=== PATIENT | male | born 1940 | race Caucasian/White ===

== ENCOUNTER 2019-10-25 00:22 | Outpatient (CLI) | payer MEDICARE, SELFPAY ==
[2019-10-25 18:39] LABS: SARS-CoV-2 RNA PCR Negative
== END 2019-10-25 00:23 | disposition home or self-care (01) ==
LOC: ANHCOVIDDT 00:22
PROVIDERS: PCP Internal Medicine; Visit Provider Urology
DX: Z01.812 Encounter for preprocedural laboratory examination (principal); Z20.828 Contact with and (suspected) exposure to other viral communicable diseases
CPT/HCPCS: 36415; 80048; 85610; 85730; 87635; C9803; U0003

== ENCOUNTER 2019-10-25 08:01 | Outpatient (CLI) | payer MEDICARE, SELFPAY ==
[2019-10-25 08:28] LABS: Blood Urea Nitrogen 45 mg/dL (9-20); Calcium 9.3 mg/dL (8.4-10.2); Carbon Dioxide 24 mmol/L (22-30); Chloride 106 mmol/L (98-107); Estimated Glomerular Filt Rate 28; Glucose 107 mg/dL (75-110); Potassium 4.5 mmol/L (3.4-5.0); Sodium 139 mmol/L (137-145)
[2019-10-25 09:28] LABS: Prothrombin Time 13.1 Seconds (11.1-14.7)
[2019-10-25 09:29] LABS: Partial Thromboplastin Time 41.6 SECONDS (22.3-36.8)
== END 2019-10-25 08:02 | disposition home or self-care (01) ==
LOC: ANHSURGERY 08:03
PROVIDERS: Anesthesiology; PCP Internal Medicine; Visit Provider Urology
DX: Z79.899 Other long term (current) drug therapy (principal); Z79.01 Long term (current) use of anticoagulants
CPT/HCPCS: 36415; 80048; 85610; 85730

== ENCOUNTER 2019-10-27 01:14 | Day surgery (SDC) | payer MEDICARE, SELFPAY ==
[2019-10-21 09:50] VITALS: BMI 33.7
--- NOTE | 2019-10-25 07:35 | PM.HPGS ---
History of Present Illness History of Present Illness Chief complaint: BPH Narrative: Ian Jones is a 79 year old male with longstanding troublesome lower urinary tract symptoms becoming more refractory to medical management. Recent urodynamics demonstrate bladder outlet obstruction without overactivity. Cystoscopy shows lateral lobe hyperplasia without significant median lobe enlargement. Prostatic urethra was estimated at 3.0 cm. After careful discussion of therapeutic options including TURP, he has elected for a Urolift. We've discussed alternative treatment options for bladder outlet obstruction, including TURP, Rezum, Green light laser and Urolift and he's elected for the later. He's aware of risks including, but not limited to, failure to correct his symptoms, hematuria, incontinence and retrograde ejaculation. Review of Systems Cardiovascular: Cardiovascular: Denies chest pain, Denies lightheadedness, Denies palpitations and Denies dyspnea Respiratory: Respiratory: Denies dyspnea Gastrointestinal: Gastrointestinal: Denies diarrhea, Denies nausea and Denies vomiting Genitourinary: Genitourinary: Denies hematuria and Denies dysuria Endocrine: Endocrine: Denies palpitations Meds Home Medications and Allergies Home Medications Medication Instructions Recorded Confirmed Type aspirin [Aspirin Low Dose] 81 mg PO DAILY 10/21/19 10/21/19 History atenolol 50 mg PO DAILY 10/21/19 10/21/19 History atorvastatin 20 mg PO HS 10/21/19 10/21/19 History clorazepate dipotassium 15 mg DAILY 10/21/19 10/21/19 History fenofibrate 40 mg PO DAILY 10/21/19 10/21/19 History furosemide 40 mg PO DAILY 10/21/19 10/21/19 History levothyroxine 25 mcg PO DAILY 10/21/19 10/21/19 History lisinopril 5 mg PO DAILY 10/21/19 10/21/19 History montelukast 10 mg PO DAILY 10/21/19 10/21/19 History multivitamin 1 tablet PO DAILY 10/21/19 10/21/19 History sildenafil (pulm.hypertension) 40 mg PO PRN PRN 10/21/19 10/21/19 History tamsulosin 0.4 mg PO HS 10/21/19 10/21/19 History warfarin 5 mg PO DAILY 10/21/19 10/21/19 History Allergies Allergy/AdvReac Type Severity Reaction Status Date / Time morphine Allergy Mild Nausea and Unverified 10/21/19 09:54 Vomiting eszopiclone Allergy Unknown Nausea and Unverified 10/21/19 09:54 Vomiting hydrocodone Allergy Unknown Nausea and Unverified 10/21/19 09:54 Vomiting Exam Const: General: no acute distress Resp: Effort & Inspection: normal respiratory effort GI: Inspection: non-distended GI Palp: No abdominal tenderness and No Guarding due to palpation present (GI) Auscultation: normal bowel sounds Assessment and Plan Assessment and plan (1) BPH loc w urin obs/LUTS: Code(s): N40.1 - Benign prostatic hyperplasia with lower urinary tract symptoms Status: Acute Assessment and Plan: Urolift
--- NOTE | 2019-10-27 07:12 | WPDHPUPDATE1 ---
History and Physical Update Update Date/Time: 10/27/19 07:12 History and Physical has been reviewed, including an updated exam of the patient. There are NO changes in the patient's condition. Risks, benefits, and alternatives have been discussed and questions answered. Patient agrees to proceed with procedure.
--- NOTE | 2019-10-27 08:31 | WPDANESEPPF ---
Anes - Initial Pre Proc Eval Procedure: Operation Date: 10/27/19 12:30 Proposed Procedures p Urolift - Luan Chilel MD Date/Time: 10/27/19 08:31 Surgeon: Luan Chilel MD Pre Op Diagnosis: BPH Patient Data Age: 79 Gender: M Height: 1.7 m Weight: 97.72 kg Allergies Allergy/AdvReac Type Severity Reaction Status Date / Time morphine Allergy Mild Nausea and Unverified 10/21/19 09:54 Vomiting eszopiclone Allergy Unknown Nausea and Unverified 10/21/19 09:54 Vomiting hydrocodone Allergy Unknown Nausea and Unverified 10/21/19 09:54 Vomiting Home Medications Medication Instructions Recorded Confirmed Type aspirin [Aspirin Low Dose] 81 mg PO DAILY 10/21/19 10/21/19 History atenolol 50 mg PO DAILY 10/21/19 10/21/19 History atorvastatin 20 mg PO HS 10/21/19 10/21/19 History clorazepate dipotassium 15 mg DAILY 10/21/19 10/21/19 History fenofibrate 40 mg PO DAILY 10/21/19 10/21/19 History furosemide 40 mg PO DAILY 10/21/19 10/21/19 History levothyroxine 25 mcg PO DAILY 10/21/19 10/21/19 History lisinopril 5 mg PO DAILY 10/21/19 10/21/19 History montelukast 10 mg PO DAILY 10/21/19 10/21/19 History multivitamin 1 tablet PO DAILY 10/21/19 10/21/19 History sildenafil (pulm.hypertension) 40 mg PO PRN PRN 10/21/19 10/21/19 History tamsulosin 0.4 mg PO HS 10/21/19 10/21/19 History warfarin 5 mg PO DAILY 10/21/19 10/21/19 History Patient hx anesthesia problems: post op nausea/vomiting Family hx anesthesia problems: none PMFSH Past Medical History Medical History (Updated 10/27/19 @ 08:35 by Alejandro Shrestha MD) 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 Arthritis BPH (benign prostatic hyperplasia) CAD (coronary artery disease) HTN (hypertension) Hx of myocardial infarction 1996 Hypercholesterolemia Hypothyroidism Obesity Presence of combination internal cardiac defibrillator (ICD) and pacemaker Surgical History Surgical History (Updated 10/27/19 @ 08:34 by Alejandro Shrestha MD) Hx of coronary artery bypass graft Anes - Eval Final PreProcedure Day of Procedure 10/27/19 08:31 Patient weight: obese Heart: regular rate and rhythm Lungs: clear to auscultation and normal air movement Airway: Mallampati scale class II Neurological: alert and oriented Last oral intake: >/= 8 hours ASA classification: III Emergent: no Anesthetic plan: proceed Anesthesia type and monitoring: general GIVS and LMA Informed Consent: The patient's anesthetic plan and its attendant risks and benefits were discussed with the patient/family/POA. Questions were solicited and answers provided to the satisfaction of the patient/family/POA.
[2019-10-27] MEDS: LACTATED RINGERS 1,000 ML 30 ML IV CONT (11:15)
[2019-10-27 11:37] VITALS: BP 132/79; PULSE 70; RESP 18; TEMP 36.2; O2SAT 98
[2019-10-27] MEDS: MIDAZOLAM HCL 2 MG/2 ML VIAL 1 MG IV PUSH (11:50)
[2019-10-27] MEDS: ceFAZolin 2 GM/D5W 50 ML 2 GM/50 ML BAG IVPB (13:08)
[2019-10-27 13:11] LABS: Partial Thromboplastin Time 42.3 SECONDS (22.3-36.8)
[2019-10-27] MEDS: LIDOCAINE HCL 2% GEL UROJET 10 ML PKG MUCOUS MEM (13:24)
[2019-10-27 13:43] VITALS: BP 129/74; PULSE 74; RESP 17; O2SAT 98
[2019-10-27 14:05] VITALS: BP 125/77; PULSE 69; RESP 18
--- NOTE | 2019-10-27 14:14 | P.OP_ITS ---
Procedure Note - Detailed Date of procedure: 10/27/19 Pre-op diagnosis: BPH Post-op diagnosis: same Procedure performed: UroLift Description of procedure: The patient was prepped and draped in a routine fashion after the uneventful induction of a general LMA anesthetic. A 20F cystoscope was inserted into the bladder. The cystoscopy bridge was replaced with a UroLift delivery device. The first treatment site was the patient's right side approximately 1.5cm distal to the bladder neck. The distal tip of the delivery device was then angled laterally approximately 20 degrees at this position to compress the lateral lobe. The trigger was pulled, thereby deploying a needle containing the implant through the prostate. The needle was then retracted, allowing one end of the implant to be delivered to the capsular surface of the prostate. The implant was then tensioned to assure capsular seating and removal of slack monofilament. The device was then angled back toward midline and slowly advanced proximally (typically 3 to 4 mm) until cystoscopic verification of the monofilament being centered in the delivery bay. The urethral end piece was then affixed to the monofilament thereby tailoring the size of the implant. Excess filament was then severed. The delivery device was then re-advanced into the bladder. The delivery device was then replaced with cystoscope and bridge and the implant location and opening effect was conf irmed cystoscopically. The same procedure was then repeated on the left side, and two additional implants were delivered just proximal to the verumontanum, again one on right and one on left side of the prostate, following the same technique. Cystoscopy then revealed a persistent area of obstruction, and two more implants were delivered in the mid-prostate. Therefore, a total of 46 implants were delivered. A final cystoscopy was conducted first to inspect the location and state of each implant and second, to confirm the presence of a continuous anterior channel was present through the prostatic urethra with irrigation flow turned off. [The bladder was then filled with 150 cc irrigation fluid to assist the patient in void trial after the procedure, and all instruments were removed. At this point the cystoscope was removed and the patient was taken to the PACU in good condition. Implants: UroLift x6 Anesthesia: MAC Surgeon: Luan Chilel MD Estimated blood loss (mL): 5 Drains: No Packing: No Pathology: none sent Complications: No immediate complications Condition: stable Disposition: PACU
[2019-10-27] MEDS: IBUPROFEN 400 MG TABLET 800 MG PO (14:24)
[2019-10-27 14:35] VITALS: BP 140/65; PULSE 76; RESP 17
== END 2019-10-27 14:50 | disposition home or self-care (01) ==
PROVIDERS: PCP Internal Medicine; Visit Provider Urology
PROC: 0T7D8DZ Dilation of Urethra with Intraluminal Device, Via Natural or Artificial Opening Endoscopic (ICD-10-PCS; CPT 52441; principal; 2019-10-27 12:30)
DX: N40.1 Benign prostatic hyperplasia with lower urinary tract symptoms (principal); N13.8 Other obstructive and reflux uropathy; I10 Essential (primary) hypertension; I25.10 Atherosclerotic heart disease of native coronary artery without angina pectoris; I25.2 Old myocardial infarction; E78.00 Pure hypercholesterolemia, unspecified; E03.9 Hypothyroidism, unspecified; Z95.1 Presence of aortocoronary bypass graft; Z95.810 Presence of automatic (implantable) cardiac defibrillator; Z79.82 Long term (current) use of aspirin; Z79.01 Long term (current) use of anticoagulants; E66.9 Obesity, unspecified; Z68.32 Body mass index [BMI] 32.0-32.9, adult
CPT/HCPCS: C9740; 36415; 85730; A9270; J0690; J2250; J2704; J7120; L8699

== ENCOUNTER 2023-12-02 10:57 | Outpatient (CLI) | payer MEDICARE, SELFPAY ==
[2023-12-02 11:49] LABS: Basophils Percent Auto 0.5 % (0.2-1.2); Eosinophils Absolute Auto 0.1 K/mm3 (0-0.3); Eosinophils Percent Auto 1.9 % (0-4.4); Hematocrit 46.1 % (42.0-52.0); Immature Granulocyte Absolute 0.01 K/mm3 (0.00-0.031); Immature Granulocyte Percent A 0.2 % (0-0.5); Immature Platelet Fraction Pct 6.9 % (0.9-11.2); Lymphocytes Percent Auto 21.9 % (18.3-44.2); Mean Corpuscular HGB Conc 32.5 g/dl (32-36); Mean Corpuscular Hemoglobin 31.6 pg (26-34); Mean Corpuscular Volume 97.1 fl (80-100); Mean Platelet Volume 11.1 fl (7.4-10.4); Monocytes Absolute Auto 0.5 K/mm3 (0.1-0.6); Monocytes Percent Auto 11.7 % (2.6-8.5); Neutrophils Absolute Auto 2.6 K/mm3 (1.3-6.7); Neutrophils Percent Auto 63.8 % (45.5-73.1); Platelet Count Result 121 k/mm3 (150-375); Red Blood Count 4.75 M/mm3 (4.6-6.20); Red Cell Distribution Width 14.8 % (11.5-14.5); White Blood Count 4.1 K/mm3 (4.5-10.0)
[2023-12-02 12:29] LABS: Total Triiodothyronine (T3) 0.92 NG/ML (0.97-1.69)
[2023-12-02 13:30] LABS: Iron 179 ug/dL (49-181)
[2023-12-02 13:41] LABS: Percent Iron Saturation 41 % (20-50)
[2023-12-02 13:48] LABS: Free T4 Free Thyroxine 1.58 ng/mL (0.78-2.19)
== END 2023-12-02 10:58 | disposition home or self-care (01) ==
PROVIDERS: PCP Family Medicine; Referring Provider Family Medicine; Visit Provider Internal Medicine Cardiovascular Disease
DX: I10 Essential (primary) hypertension (principal); I71.9 Aortic aneurysm of unspecified site, without rupture; I42.9 Cardiomyopathy, unspecified; I50.9 Heart failure, unspecified; I48.91 Unspecified atrial fibrillation; N20.0 Calculus of kidney; Z79.01 Long term (current) use of anticoagulants; I73.9 Peripheral vascular disease, unspecified
CPT/HCPCS: 36415; 82728; 83540; 83550; 83735; 84439; 84443; 84480; 85025; 85055

== ENCOUNTER 2024-02-10 11:41 | Outpatient (CLI) | payer MEDICARE, SELFPAY ==
[2024-02-10 12:10] LABS: Basophils Percent Auto 0.8 % (0.2-1.2); Eosinophils Absolute Auto 0.1 K/mm3 (0-0.3); Hematocrit 44.9 % (42.0-52.0); Hemoglobin 14.5 g/dL (14.0-18.0); Immature Granulocyte Absolute 0.01 K/mm3 (0.00-0.031); Immature Granulocyte Percent A 0.3 % (0-0.5); Lymphocytes Absolute Auto 0.95 K/mm3 (0.9-3.2); Lymphocytes Percent Auto 24.2 % (18.3-44.2); Mean Corpuscular HGB Conc 32.3 g/dl (32-36); Mean Corpuscular Hemoglobin 31.2 pg (26-34); Mean Corpuscular Volume 96.6 fl (80-100); Mean Platelet Volume 10.4 fl (7.4-10.4); Monocytes Absolute Auto 0.4 K/mm3 (0.1-0.6); Monocytes Percent Auto 9.9 % (2.6-8.5); Neutrophils Absolute Auto 2.5 K/mm3 (1.3-6.7); Neutrophils Percent Auto 62.8 % (45.5-73.1); Platelet Count Result 133 k/mm3 (150-375); Red Blood Count 4.65 M/mm3 (4.6-6.20); Red Cell Distribution Width 15.5 % (11.5-14.5); White Blood Count 3.9 K/mm3 (4.5-10.0)
[2024-02-10 12:27] LABS: Iron 211 ug/dL (49-181)
[2024-02-10 12:40] LABS: Percent Iron Saturation 50 % (20-50)
[2024-02-10 12:45] LABS: Free T4 Free Thyroxine 1.57 ng/mL (0.78-2.19)
== END 2024-02-10 11:42 | disposition home or self-care (01) ==
LOC: ANHLAB 11:49
PROVIDERS: PCP Family Medicine; Visit Provider Student in an Organized Health Care Education/Training Program
DX: R79.89 Other specified abnormal findings of blood chemistry (principal); I10 Essential (primary) hypertension; E03.9 Hypothyroidism, unspecified
CPT/HCPCS: 36415; 82728; 83540; 83550; 84439; 84443; 85025

== ENCOUNTER 2024-11-04 07:34 | Emergency (ER) | payer MEDICARE, SELFPAY ==
[2024-11-04] VITALS (24 sets, daily range): BP systolic 87–126; BP diastolic 57–71; PULSE 80–84; RESP 14–28; TEMP 36.4; O2SAT 94–100
--- NOTE | ~2024-11-04 | XR_ITS ---
XR chest 1V portable 11/04/2024 08:16 Indication: Shortness of breath Procedure: AP portable chest Comparison: No prior studies for comparison. Findings: Status post median sternotomy for CABG. Cardiomegaly with pulmonary edema. Small pleural ef fusions, right greater than left. No acute osseous abnormality. Pacemaker leads are in expected posit ion. Impression: 1: Cardiomegaly with pulmonary edema. Reviewed, dictated and finalized at location [] Impression: 1: Cardiomegaly with pulmonary edema.
--- NOTE | 2024-11-04 07:48 | ECG_ITS ---
Test Date: 2024-11-04 07:46:14 Measurements Intervals [place] Rate: 84 P: 0 SC: 0 QRS: 216 QRSD: 164 T: -11 QT: 394 QTc: 467 Interpretive Statements ELECTRONIC VENTRICULAR PACEMAKER VENTRICULAR BIGEMINY BASELINE ARTIFACT- I, III NO FURTHER INTERPRETATION IS POSSIBLE ABNORMAL ECG No previous ECG available for comparison Electronically Signed On 11-04-2024 08:11:17 CDT by Denilson Marr D.O.
--- NOTE | 2024-11-04 07:49 | ED_ITS ---
HPI - General Adult General Chief complaint: Shortness of Breath/Dyspnea Stated complaint: SOB, low O2 Time Seen by Provider: 11/04/24 07:53 History of Present Illness HPI narrative: [age] old male with history of ND and CHF presented emergency department for evaluation for worsening shortness of breath. Patient was recently discharged from [facility] and had been at his local residential when he had worsening shortness of breath. EMS was called and patient was found to be 60% room air and only improved to mid 80s on CPAP. Patient was requesting to go back to [facility] but EMS did not feel comfortable with this transport so patient was brought to [place]. Upon arrival to the emergency department patient states he is DNI DNR and does not want to be intubated. Patient was 74% room air but did improved to high 90s on BiPAP 05/11 with a FiO2 of 60%. Patient denies any chest pain days states he feels improved breathing. Related Data Home Medications ?Medication ?Instructions ?Recorded ?Confirmed ?Last Taken ?Type aspirin 81 mg tablet,delayed 81 mg PO DAILY 10/21/19 08/29/24 Unknown History release (Asaf Low Dose Aspirin) warfarin 5 mg tablet 5 mg PO DAILY 10/21/19 08/29/24 Unknown History calcitriol 0.25 mcg capsule 0.25 mcg PO DAILY 12/08/23 08/29/24 Unknown History dofetilide 125 mcg capsule 125 mcg PO DAILY 05/02/24 08/29/24 Unknown History (Tikosyn) digoxin 250 mcg (0.25 mg) tablet 250 mcg PO .MWF 10/10/24 Unknown History Allergies Allergy/AdvReac Type Severity Reaction Status Date / Time morphine Allergy Mild Nausea and Verified 11/04/24 08:06 Vomiting eszopiclone Allergy Unknown Nausea and Verified 11/04/24 08:06 Vomiting hydrocodone Allergy Unknown Nausea and Verified 11/04/24 08:06 Vomiting tramadol Allergy Unknown Verified 11/04/24 08:06 trazodone Allergy Unknown Verified 11/04/24 08:06 Review of Systems 2 Review of Systems: All systems reviewed & are unremarkable except as noted in HPI and below PMFSH Past Medical History Medical History Chronic anticoagulation PAD (peripheral artery disease) Obesity CAD (coronary artery disease) Presence of combination internal cardiac defibrillator (ICD) and pacemaker Hypothyroidism Arthritis BPH (benign prostatic hyperplasia) 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 Hx of myocardial infarction 1996 HTN (hypertension) Hypercholesterolemia Surgical History Surgical History S/P insertion of iliac artery stent Hx of coronary artery bypass graft Social History Social History Social History: Smoking status: Never smoker Second hand tobacco smoke exposure: No Alcohol intake: never Substance use: never Substance use type: does not use Do You Feel Safe in your Home?: Yes Lack of Transportation: No Lack of Food: Never True Current Housing: I Have Housing Concerned About Future Housing: No Difficulty Paying Gas/Electric Bills: No Difficulty Paying for Meds: No Currently Unemployed: YES Education: Don't Know Difficulty w/ Childcare or Family Care: No Living arrangements: with family Occupation/Education: retired Gender identity (if verbalized by the patient): Male Sexual Orientation (if Verbalized by the Patient): Straight or Heterosexual Exam 2 Narrative: APPEARANCE: Well appearing, no pain, no distress, well-nourished. HEAD: normocephalic, atraumatic. EYES: PERRLA/EOMI, conjunctivae clear. NOSE: Normal no drainage EARS:TMS clear with good light reflex. THROAT: Pharynx clear, no exudate. NECK: Supple. No adenopathy, no masses. RESPIRATORY: Airway patent, respirations nonlabored. Clear to auscultation bilaterally, no rales, rhonchi, wheezing. CARDIOVASCULAR: Regular rate and rhythm without murmurs rubs or gallops. ABDOMINAL: Soft, nontender, nondistended, normal bowel sounds MUSCULOSKELETAL: Moves all extremities. Strength/ROM intact, No edema, No calf tenderness. NEURO: Alert. Cranial nerves II through XII intact. Grossly intact SKIN: Warm, dry. Normal Color Course Vital Signs Vital signs: Vital Signs Temperature 97.5 F L 11/04/24 07:41 Pulse Rate 84 11/04/24 07:41 Respiratory Rate 28 H 11/04/24 07:41 Blood Pressure 117/71 11/04/24 07:41 Pulse Oximetry 94 11/04/24 07:41 Oxygen Delivery BiPAP 11/04/24 07:41 Fraction of Inspired Oxygen 60 11/04/24 07:41 Temperature 97.5 F L 11/04/24 07:41 Pulse Rate 80 11/04/24 14:01 Respiratory Rate 18 11/04/24 14:01 Blood Pressure 91/59 L 11/04/24 14:00 Pulse Oximetry 96 11/04/24 14:40 Oxygen Delivery Nasal Cannula 11/04/24 14:40 Oxygen Flow Rate 2 11/04/24 14:40 Fraction of Inspired Oxygen 60 11/04/24 07:41 Medical Decision Making MDM Narrative Medical decision making narrative: 84-year-old male present to the emergency department for evaluation for hypoxia. Patient's EKG in the field was auto read as concern for STEMI. Patient does have a pacemaker. Upon arrival emergency department patient denies any chest pain. Patient does have a pacemaker. Repeat EKG is not concerning for acute STEMI. Patient did confirm he is DNI DNR and does not want to be intubated if his respiratory status worsens. Patient is alert and appropriate and is requesting to be transferred back to [facility]. I discussed the case with the ICU doctor at [facility] it is and they agreed the plan to treat with Lasix, continue BiPAP and patient was accepted pending bed availability. Patient's stated that she discussed the case with the patient's cream hauler at [facility] and they recommended palliative care/hospice for the patient. Patient family no longer wishing to be transported to [facility] and they are per so a hospice placement. Hospice was consulted and patient was admitted to the hospital for comfort care and prior to going to the floor he was removed from BiPAP. Differential Diagnosis Differential Diagnosis: CHF, STEMI, NSTEMI, pneumonia, hypercapnia, respiratory failure, Vital Signs Vital Signs: Vital Signs Temperature 97.5 F L 11/04/24 07:41 Pulse Rate 84 11/04/24 07:41 Respiratory Rate 28 H 11/04/24 07:41 Blood Pressure 117/71 11/04/24 07:41 Pulse Oximetry 94 11/04/24 07:41 Oxygen Delivery BiPAP 11/04/24 07:41 Fraction of Inspired Oxygen 60 11/04/24 07:41 Temperature 97.5 F L 11/04/24 07:41 Pulse Rate 80 11/04/24 14:01 Respiratory Rate 18 11/04/24 14:01 Blood Pressure 91/59 L 11/04/24 14:00 Pulse Oximetry 96 11/04/24 14:40 Oxygen Delivery Nasal Cannula 11/04/24 14:40 Oxygen Flow Rate 2 11/04/24 14:40 Fraction of Inspired Oxygen 60 11/04/24 07:41 Lab Data Lab results reviewed: Yes I reviewed the patient's lab results. 11/04/24 07:58 11/04/24 07:58 Labs: Lab Results 11/04/24 11/04/24 11/04/24 Range/Units 07:48 07:58 09:30 WBC 6.3 (4.5-10.0) K/mm3 RBC 4.40 L (4.6-6.20) M/mm3 Hgb 13.6 L (14.0-18.0) g/dL Hct 42.5 (42.0-52.0) % MCV 96.6 (80-100) fl MCH 30.9 (26-34) pg MCHC 32.0 (32-36) g/dl RDW 16.1 H (11.5-14.5) % Plt Count 221 D (150-375) k/mm3 MPV 11.6 H (7.4-10.4) fl Immature Gran % (Auto) 1.0 H (0-0.5) % Neut % (Auto) 84.5 H (45.5-73.1) % Lymph % (Auto) 8.2 L (18.3-44.2) % [place] % (Auto) 5.2 (2.6-8.5) % Eos % (Auto) 0.6 (0-4.4) % Baso % (Auto) 0.5 (0.2-1.2) % Lymph # (Auto) 0.52 L (0.9-3.2) K/mm3 [place] # (Auto) 0.3 (0.1-0.6) K/mm3 Eos # (Auto) 0.0 (0-0.3) K/mm3 Baso # (Auto) 0.0 (0.0-0.1) K/mm3 Abs Immat Gran (auto) 0.06 H (0.00-0.031) K/mm3 Absolute Neuts (auto) 5.3 (1.3-6.7) K/mm3 Absolute Nucleated RBC 0.000 (0.0-0.012) K/mm3 Nucleated RBC % 0.0 (0.0-0.2) % PT 27.4 H (11.1-14.7) Seconds INR 2.7 APTT 43.4 H (22.3-36.8) Seconds Methemoglobin 0.1 0.3 (0-1.5) %THb Expiratory Pressure 8 8 CMH2O Inspiratory Pressure 16 16 CMH2O Sodium 130 L (137-145) mmol/L Potassium 4.4 (3.4-5.0) mmol/L Chloride 91 L (98-107) mmol/L Carbon Dioxide 31 H (22-30) mmol/L Anion Gap 8 (4-12) mmol/L BUN 30 H D (9-20) mg/dL Creatinine 1.30 (0.7-1.3) mg/dL Estim Creat Clear Calc 39 ml/min Estimated GFR 53 L (59 - ) Glucose 97 (65-110) mg/dL Calcium 8.8 (8.4-10.2) mg/dL Total Bilirubin 1.2 (0.2-1.3) mg/dL AST 51 (17-59) U/L ALT 24 (6-50) U/L Alkaline Phosphatase 75 (38-126) U/L Troponin I 0.079 H* (0.000-0.034) ng/mL NT-Pro-B Natriuret Pep 62026 H (19.9-100) pg/mL Total Protein 6.5 (6.3-8.2) g/dL Albumin 3.3 L (3.5-5.1) g/dL Urine Color (Yellow) Urine Appearance (Clear) Urine pH (5.0-9.0) Ur Specific [place] (1.001-1.035) Urine Protein (Negative) mg/dL Urine Glucose (UA) (Negative) mg/dL Urine Ketones (Negative) mg/dL Ur Blood (Man) (Negative) Urine Nitrate (Negative) Urine Bilirubin (Negative) Urine Urobilinogen (<2.0) mg/dL Add Ur Microanalysis Leukocyte Esterase Rfl (Negative) SHANTELL/UL Urine RBC (0-2) /hpf Urine WBC (0-3) /hpf Ur Squamous Epith Cells (Few) /hpf Urine Bacteria /hpf Urine Casts 11/04/24 Range/Units 10:20 WBC (4.5-10.0) K/mm3 RBC (4.6-6.20) M/mm3 Hgb (14.0-18.0) g/dL Hct (42.0-52.0) % MCV (80-100) fl MCH (26-34) pg MCHC (32-36) g/dl RDW (11.5-14.5) % Plt Count (150-375) k/mm3 MPV (7.4-10.4) fl Immature Gran % (Auto) (0-0.5) % Neut % (Auto) (45.5-73.1) % Lymph % (Auto) (18.3-44.2) % [place] % (Auto) (2.6-8.5) % Eos % (Auto) (0-4.4) % Baso % (Auto) (0.2-1.2) % Lymph # (Auto) (0.9-3.2) K/mm3 [place] # (Auto) (0.1-0.6) K/mm3 Eos # (Auto) (0-0.3) K/mm3 Baso # (Auto) (0.0-0.1) K/mm3 Abs Immat Gran (auto) (0.00-0.031) K/mm3 Absolute Neuts (auto) (1.3-6.7) K/mm3 Absolute Nucleated RBC (0.0-0.012) K/mm3 Nucleated RBC % (0.0-0.2) % PT (11.1-14.7) Seconds INR APTT (22.3-36.8) Seconds Methemoglobin (0-1.5) %THb Expiratory Pressure CMH2O Inspiratory Pressure CMH2O Sodium (137-145) mmol/L Potassium (3.4-5.0) mmol/L Chloride (98-107) mmol/L Carbon Dioxide (22-30) mmol/L Anion Gap (4-12) mmol/L BUN (9-20) mg/dL Creatinine (0.7-1.3) mg/dL Estim Creat Clear Calc ml/min Estimated GFR (59 - ) Glucose (65-110) mg/dL Calcium (8.4-10.2) mg/dL Total Bilirubin (0.2-1.3) mg/dL AST (17-59) U/L ALT (6-50) U/L Alkaline Phosphatase (38-126) U/L Troponin I (0.000-0.034) ng/mL NT-Pro-B Natriuret Pep (19.9-100) pg/mL Total Protein (6.3-8.2) g/dL Albumin (3.5-5.1) g/dL Urine Color Brown H (Yellow) Urine Appearance Cloudy H (Clear) Urine pH 5.5 (5.0-9.0) Ur Specific [place] >= 1.030 (1.001-1.035) Urine Protein 2+ H (Negative) mg/dL Urine Glucose (UA) Negative (Negative) mg/dL Urine Ketones Negative (Negative) mg/dL Ur Blood (Man) 3+ H (Negative) Urine Nitrate Negative (Negative) Urine Bilirubin 1+ H (Negative) Urine Urobilinogen 1.0 (<2.0) mg/dL Add Ur Microanalysis Reviewed Leukocyte Esterase Rfl Trace H (Negative) SHANTELL/UL Urine RBC >100 H (0-2) /hpf Urine WBC 21-50 H (0-3) /hpf Ur Squamous Epith Cells Occasional (Few) /hpf Urine Bacteria None seen /hpf Urine Casts 11-20 ABG Data ABG results: 11/04/24 11/04/24 07:48 09:30 Puncture Site Right brachial Right radial ABG pH 7.269 L* 7.286 L* ABG pCO2 72.2 H* 62.2 H* ABG pO2 82.6 75.6 L ABG PO2/FiO2 Ratio 1.18 1.89 ABG HCO3 32.3 H 29.0 H ABG O2 Saturation 94.3 L 93.2 L ABG O2 Content 18.7 17.4 ABG Base Excess 3.1 0.9 A-a Gradient 338.9 138.1 Oxyhemoglobin 94.3 92.6 Carboxyhemoglobin 1.2 1.3 Reduced Hemoglobin 4.4 5.8 H Total Hemoglobin 14.1 13.3 O2 Delivery Device Non-invasive vent Non-invasive vent O2 Liters/Min Not Reportable Not Reportable Vent Rate 12 12 FiO2 70 40 Imaging Data Radiologist's impression: Impressions Chest X-Ray 11/04/24 08:30 Impression: 1: Cardiomegaly with pulmonary edema. Discharge Plan Discharge Clinical Impression: Acute respiratory distress, Congestive heart failure Patient Disposition: Hospice [facility] Inpatient Condition: Serious Patient Language: [place] Prescriptions: No Action montelukast 10 mg tablet 10 mg PO DAILY Qty: 90 4RF calcitriol 0.25 mcg capsule 0.25 mcg PO DAILY Patient Comments: per nephro clorazepate dipotassium 15 mg tablet 7.5 mg PO BID PRN (Reason: anxiety) Qty: 30 1RF lisinopril 5 mg tablet See Rx Instructions .ROUTE .COMPLEX Qty: 90 1RF Dose Instruction: TAKE 1 TABLET BY MOUTH DAILY Rx Instructions: TAKE 1 TABLET BY MOUTH DAILY tramadol 50 mg tablet 50 mg PO Q6H PRN (Reason: pain) Qty: 30 0RF furosemide 20 mg tablet 20 mg PO QAM Qty: 90 0RF aspirin [Asaf Low Dose Aspirin] 81 mg Tablet,Delayed Release (Dr/Ec) 81 mg PO DAILY warfarin 5 mg Tablet 5 mg PO DAILY atorvastatin 20 mg tablet 20 mg PO HS Qty: 90 1RF atenolol 50 mg tablet See Rx Instructions .ROUTE .COMPLEX Qty: 90 0RF Dose Instruction: TAKE 1 TABLET BY MOUTH DAILY Rx Instructions: TAKE 1 TABLET BY MOUTH DAILY fenofibrate nanocrystallized 145 mg tablet 145 mg PO DAILY Qty: 90 2RF dofetilide [Tikosyn] 125 mcg capsule 125 mcg PO DAILY Rx Instructions: as per cardio levothyroxine 25 mcg tablet See Rx Instructions .ROUTE .COMPLEX Qty: 92 1RF Dose Instruction: TAKE 1 TABLET BY MOUTH DAILY AND TAKE 2 TABLETS EVERY THURSDAY TAKE IN THE MORNING ON AN EMPTY STOMACH Rx Instructions: TAKE 1 TABLET BY MOUTH DAILY AND TAKE 2 TABLETS EVERY THURSDAY TAKE IN THE MORNING ON AN EMPTY STOMACH digoxin 250 mcg (0.25 mg) tablet 250 mcg PO .MWF Follow-up/Referrals: Vishnu Tomas MD [Primary Care Provider] -
--- OUTSIDE RECORDS SUMMARY | 2024-11-04 07:58 | XMS_ITS ---
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 Problem Cytokine release syndrome, 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 Encounters Encounter Location Date Provider Diagnosis [place] [facility] [address] [facility] 15 [place] [address] 06/08/2024 Delvin Mendenhall Chronic kidney disease, stage 3a N18.31 ; Essential (primary) hypertension I10 ; Cytokine release syndrome, grade unspecified D89.839 ; Elevation of levels of liver transaminase levels R74.01 ; Hypo-osmolality and hyponatremia E87.1 and Syndrome of inappropriate secretion of antidiuretic hormone E22.2 Assessments Encounter Date Diagnosis (ICD Code) Assessment Notes Treatment Notes Treatment Clinical Notes Section Notes 06/08/2024 Chronic kidney disease, stage 3a (ICD-10 - N18.31) 06/08/2024 Essential (primary) hypertension (ICD-10 - I10) 06/08/2024 Cytokine release syndrome, grade unspecified (ICD-10 - D89.839) 06/08/2024 Elevation of levels of liver transaminase levels (ICD-10 - R74.01) 06/08/2024 Hypo-osmolality and hyponatremia (ICD-10 - E87.1) 06/08/2024 Syndrome of inappropriate secretion of antidiuretic hormone (ICD-10 - E22.2) Plan Of Treatment Next Appt Details Provider Name:Delvin Mendenhall , 11/09/2024 02:45:00 PM, 2043 [facility] 15, [place], [address], Progress Notes * Ian MONSALVEDOB:1940 (84 yo M)Acc No.[id number]:06/08/2024 Progress Notes Patient: Ian SIMMONS Provider: Wendy WALKER MD, Maryann.Jumana.C.P, F.A.S.N. :1940 A ge:83 Y S ex:Male Date:06/08/2024 Address:[address] [place] [address] Subjective: * Chief Complaints: * * Medical History: Objective: * Vitals: Assessment: * Assessment: 1. C hronic kidney disease, stage 3a - N18.31 (Primary) 2 . E ssential (primary) hypertension - I10 3 . C ytokine release syndrome, grade unspecified - D89.839 4 . E levation of levels of liver transaminase levels - R74.01 5. H ypo-osmolality and hyponatremia - E87.1 6 . S yndrome of inappropriate secretion of antidiuretic hormone - E22.2 Plan: * Treatment: * Billing Information: * Visit Code: 56080 Office Visit, Est Pt., Level 4. * Procedure Codes: * Electronic signature of Mike Mendenhall MD on 11/04/2024 at 07:57 AM CDT Sign off status: Pending * Provider: Wendy WALKER MD, F.Jumana.C.P, F.A.S.N. Date: 0 06/08/2024 Generated for Printing/Faxing/eTransmitting on: 11/04/2024 07:57 AM CDT
--- OUTSIDE RECORDS SUMMARY | 2024-11-04 07:58 | XMS_ITS ---
Author Organization [facility] Address [address] [address] [place] [address] Care Team Providers Care Medical Instrument Cable Fabricator Name Role Phone Abdirashid Delvin Unavailable [phone] Problems Problem Type SNOMED Code ICD Code Onset Dates Problem Status W/U Status Risk Notes Problem Disorientation (36467453) Disorientation, unspecified (R41.0) Active confirmed Encounters Encounter Location Date Provider Diagnosis [place] [facility] 2043 [facility] 15 [place] [address] 10/05/2024 Delvin Mendenhall Chronic kidney disea se, stage 3b N18.32 ; Essential (primary) hypertension I10 ; Syndrome of inappropriate secretion of antidiuretic hormone E22.2 ; Heart failure, unspecified I50.9 ; Cytokine release syndrome, grade unspecified D89.839 ; Renal osteodystrophy N25.0 ; Secondary hyperparathyroidism, not elsewhere classified E21.1 ; Unspecified injury of unspecified kidney, initial encounter S37.009A ; Proteinuria, unspecified R80.9 ; Elevation of levels of liver transaminase levels R74.01 ; Hypo-osmolality and hyponatremia E87.1 and Disorientation, unspecified R41.0 Assessments Encounter Date Diagnosis (ICD Code) Assessment Notes Treatment Notes Treatment Clinical Notes Section Notes 10/05/2024 Chronic kidney disease, stage 3b (ICD-10 - N18.32) 10/05/2024 Essential (primary) hypertension (ICD-10 - I10) 10/05/2024 Syndrome of inappropriate secretion of antidiuretic hormone (ICD-10 - E22.2) 10/05/2024 Heart failure, unspecified (ICD-10 - I50.9) 10/05/2024 Cytokine release syndrome, grade unspecified (ICD-10 - D89.839) 10/05/2024 Renal osteodystrophy (ICD-10 - N25.0) 10/05/2024 Secondary hyperparathyroidism , not elsewhere classified (ICD-10 - E21.1) 10/05/2024 Unspecified injury of unspecified kidney, initial encounter (ICD-10 - S37.009A) 10/05/2024 Proteinuria, unspecified (ICD-10 - R80.9) 10/05/2024 Elevation of levels of liver transaminase levels (ICD-10 - R74.01) 10/05/2024 Hypo-osmolality and hyponatremia (ICD-10 - E87.1) 10/05/2024 Disorientation, unspecified (ICD-10 - R41.0) Plan Of Treatment Next Appt Details Provider Name:Delvin Abdirashid , 11/09/2024 02:45:00 PM, [address]43 [facility] [address], [address], Progress Notes * BELLOIanDOB:1940 (84 yo M)Acc No.[id number]:10/05/2024 Progress Notes Patient: Ian SIMMONS Provider: Wendy WALKER MD, F.A.C.P, F.A.S.N. :1940 A ge:84 Y S ex:Male Date:10/05/2024 Address:[address] [place], [place] [id number] Subjective: * Chief Complaints: * * Medical History: Objective: * Vitals: Assessment: * Assessment: 1. C hronic kidney disease, stage 3b - N18.32 (Primary) 2 . E ssential (primary) hypertension - I10 3 . S yndrome of inappropriate secretion of antidiuretic hormone - E22.2 4 . H eart failure, unspecified - I50.9 5 . Cytokine release syndrome, grade unspecified - D89.839 6 . R enal osteodystrophy - N25.0 7 . S econdary hyperparathyroidism, not elsewhere classified - E21.1? 8. U nspecified injury of unspecified kidney, initial encounter - S37.009A 9. P roteinuria, unspecified - R80.9 1 0. E levation of levels of liver transaminase levels - R74.01 1 1. H ypo-osmolality and hyponatremia - E87.1 1 2. D isorientation, unspecified - R41.0 Plan: * Treatment: * Billing Information: * Visit Code: 93286 Office Visit, Est Pt., Level 4. * Procedure Codes: * Electronic signature of Mike Mendenhall MD on 11/04/2024 at 07:58 AM CDT Sign off status: Pending * Provider: Wendy WALKER MD, F.A.C.P, F.A.S.N. Date: 0 10/05/2024 Generated for Printing/Faxing/eTransmitting on: 0 11/04/2024 07:58 AM CDT
--- OUTSIDE RECORDS SUMMARY | 2024-11-04 07:58 | XMS_ITS | Patient Health Record ---
Author Organization [facility] Address [address] [place] [address] Care Team Providers Care Store Facility Technician Name Role Phone Delvin Mendenhall Unavailable [phone] Reason For Referral No Information Medications Medication SIG (Take, Route, Frequency, Duration) Notes Start Date End Date Status Calcitriol 0.25 MCG TAKE 1 CAPSULE BY MO UTH DAILY for 90 Active Vitamin D (Ergocalciferol) 1.25 MG (44655 UT) TAKE 1 CAPSULE BY MOUTH EVERY WEEK for 91 Active Problems Problem Type SNOMED Code ICD Code Onset Dates Problem Status W/U Status Risk Notes Problem Secondary hyperparathyroidism (60182732) Secondary hyperparathyroid ism, not elsewhere classified (E21.1) Active confirmed Problem Syndrome of inappropriate secretion of antidiuretic hormone (73307008) 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 confirmed Problem Hypo-osmolality and or hyponatremia (059220386) Hypo-osmolality and hyponatremia (E87.1) Active confirmed Problem Essential hypertension (33193874) Essential (primary) hypertension (I10) Active confirmed Problem Heart failure (88448179) Heart failure, unspecified (I50.9) Active confirmed Problem Renal osteodystrophy (70889849) Renal osteodystrophy (N25.0) Active confirmed Problem Disorientation (52856033) Disorientation, unspecified (R41.0) Active confirmed Problem Proteinuria (91326812) Proteinuria, unspecified (R80.9) Active confirmed Problem Injury to kidney (66483939) Unspecified injury of unspecified kidney, initial encounter (S37.009A) Active confirmed Problem Cytokine release syndrome, 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 Problem Chronic kidney disease stage 3B (disorder) (255047306) Chronic kidney disease, stage 3b (N18.32) Active confirmed Problem Elevation of levels of liver transaminase levels (R74.01) Active confirmed Encounters Encounter Location Date Provider Diagnosis [facility] [address] [place] [address] 01/29/2024 Delvin Mendenhall Chronic kidney disea se, stage 3b N18.32 ; Essential (primary) hypertension I10 ; Renal osteodystrophy N25.0 ; Heart failure, unspecified I50.9 ; Unspecified injury of unspecified kidney, initial encounter S37.009A ; Secondary hyperparathyroidism, not elsewhere classified E21.1 and Proteinuria, unspecified R80.9 [facility] [address] [place] [address] 04/01/2024 Delvin Mendenhall Chronic kidney disea se, stage 3b N18.32 ; Renal osteodystrophy N25.0 ; Heart failure, unspecified I50.9 ; Secondary hyperparathyroidism, not elsewhere classified E21.1 ; Unspecified injury of unspecified kidney, initial encounter S37.009A ; Essential (primary) hypertension I10 and Proteinuria, unspecified R80.9 [facility] [address] [place] [address] 06/08/2024 Delvin Mendenhall Chronic kidney disea se, stage 3a N18.31 ; Essential (primary) hypertension I10 ; Cytokine release syndrome, grade unspecified D89.839 ; Elevation of levels of liver transaminase levels R74.01 ; Hypo-osmolality and hyponatremia E87.1 and Syndrome of inappropriate secretion of antidiuretic hormone E22.2 [facility] [address] [place] [address] 07/27/2024 Delvin Mendenhall Chronic kidney disea se, stage 3b N18.32 ; Essential (primary) hypertension I10 ; Syndrome of inappropriate secretion of antidiuretic hormone E22.2 ; Heart failure, unspecified I50.9 ; Cytokine release syndrome, grade unspecified D89.839 ; Renal osteodystrophy N25.0 ; Unspecified injury of unspecified kidney, initial encounter S37.009A ; Secondary hyperparathyroidism, not elsewhere classified E21.1 ; Proteinuria, unspecified R80.9 ; Elevation of levels of liver transaminase levels R74.01 and Hypo-osmolality and hyponatremia E87.1 [facility] [address] [place] [address] 10/05/2024 Delvin Mendenhall Chronic kidney disea se, [...] and hyponatremia E87.1 and Disorientation, unspecified R41.0 [facility] [address] [facility] 15 [place] [address] 06/10/2024 Delvin Mendenhall Assessments Encounter Date Diagnosis (ICD Code) Assessment Notes Treatment Notes Treatment Clinical Notes Section Notes 01/29/2024 Chronic kidney disease, stage 3b (ICD-10 - N18.32) 04/01/2024 Chronic kidney disease, stage 3b (ICD-10 - N18.32) 06/08/2024 Chronic kidney disease, stage 3a (ICD-10 - N18.31) 07/27/2024 Chronic kidney disease, stage 3b (ICD-10 - N18.32) 10/05/2024 Chronic kidney disease, stage 3b (ICD-10 - N18.32) 10/05/2024 Essential (primary) hypertension (ICD-10 - I10) 07/27/2024 Essential (primary) hypertension (ICD-10 - I10) 06/08/2024 Essential (primary) hypertension (ICD-10 - I10) 04/01/2024 Renal osteodystrophy (ICD-10 - N25.0) 01/29/2024 Essential (primary) hypertension (ICD-10 - I10) 04/01/2024 Heart failure, unspecified (ICD-10 - I50.9) 01/29/2024 Renal osteodystrophy (ICD-10 - N25.0) 06/08/2024 Cytokine release syndrome, grade unspecified (ICD-10 - D89.839) 07/27/2024 Syndrome of inappropriate secretion of antidiuretic hormone (ICD-10 - E22.2) 10/05/2024 Syndrome of inappropriate secretion of antidiuretic hormone (ICD-10 - E22.2) 10/05/2024 Heart failure, unspecified (ICD-10 - I50.9) 07/27/2024 Heart failure, unspecified (ICD-10 - I50.9) 06/08/2024 Elevation of levels of liver transaminase levels (ICD-10 - R74.01) 04/01/2024 Secondary hyperparathyroidism , not elsewhere classified (ICD-10 - E21.1) 01/29/2024 Heart failure, unspecified (ICD-10 - I50.9) 01/29/2024 Unspecified injury of unspecified kidney, initial encounter (ICD-10 - S37.009A) 04/01/2024 Unspecified injury of unspecified kidney, initial encounter (ICD-10 - S37.009A) 06/08/2024 Hypo-osmolality and hyponatremia (ICD-10 - E87.1) 07/27/2024 Cytokine release syndrome, grade unspecified (ICD-10 - D89.839) 10/05/2024 Cytokine release syndrome, grade unspecified (ICD-10 - D89.839) 07/27/2024 Renal osteodystrophy (ICD-10 - N25.0) 10/05/2024 Renal osteodystrophy (ICD-10 - N25.0) 06/08/2024 Syndrome of inappropriate secretion of antidiuretic hormone (ICD-10 - E22.2) 04/01/2024 Essential (primary) hypertension (ICD-10 - I10) 01/29/2024 Secondary hyperparathyroidism , not elsewhere classified (ICD-10 - E21.1) 01/29/2024 Proteinuria, unspecified (ICD-10 - R80.9) 04/01/2024 Proteinuria, unspecified (ICD-10 - R80.9) 07/27/2024 Unspecified injury of unspecified kidney, initial encounter (ICD-10 - S37.009A) 10/05/2024 Secondary hyperparathyroidism , not elsewhere classified (ICD-10 - E21.1) 10/05/2024 Unspecified injury of unspecified kidney, initial encounter (ICD-10 - S37.009A) 07/27/2024 Secondary hyperparathyroidism , not elsewhere classified (ICD-10 - E21.1) 07/27/2024 Proteinuria, unspecified (ICD-10 - R80.9) 10/05/2024 Proteinuria, unspecified (ICD-10 - R80.9) 10/05/2024 Elevation of levels of liver transaminase levels (ICD-10 - R74.01) 07/27/2024 Elevation of levels of liver transaminase levels (ICD-10 - R74.01) 10/05/2024 Hypo-osmolality and hyponatremia (ICD-10 - E87.1) 07/27/2024 Hypo-osmolality and hyponatremia (ICD-10 - E87.1) 10/05/2024 Disorientation, unspecified (ICD-10 - R41.0) Plan Of Treatment Next Appt Details Provider Name:Delvin Mendenhall , 11/09/2024 02:45:00 PM, [address], [facility] 15, [place], [address],
--- OUTSIDE RECORDS SUMMARY | 2024-11-04 07:59 | XMS_ITS ---
Author Organization [facility] Address [address] [facility] [address] [facility] [address] [place] [address] Care Team Providers Care Manager Roofing Name Role Phone Delvin Mendenhall Unavailable [phone] Encounters Encounter Location Date Provider Diagnosis [place] [facility] 2043 [facility] [address] [place] [address] 07/27/2024 Delvin Mendenhall Chronic kidney disea se, [...] levels R74.01 and Hypo-osmolality and hyponatremia E87.1 Assessments Encounter Date Diagnosis (ICD Code) Assessment Notes Treatment Notes Treatment Clinical Notes Section Notes 07/27/2024 Chronic kidney disease, stage 3b (ICD-10 - N18.32) 07/27/2024 Essential (primary) hypertension (ICD-10 - I10) 07/27/2024 Syndrome of inappropriate secretion of antidiuretic hormone (ICD-10 - E22.2) 07/27/2024 Heart failure, unspecified (ICD-10 - I50.9) 07/27/2024 Cytokine release syndrome, grade unspecified (ICD-10 - D89.839) 07/27/2024 Renal osteodystrophy (ICD-10 - N25.0) 07/27/2024 Unspecified injury of unspecified kidney, initial encounter (ICD-10 - S37.009A) 07/27/2024 Secondary hyperparathyroidism , not elsewhere classified (ICD-10 - E21.1) 07/27/2024 Proteinuria, unspecified (ICD-10 - R80.9) 07/27/2024 Elevation of levels of liver transaminase levels (ICD-10 - R74.01) 07/27/2024 Hypo-osmolality and hyponatremia (ICD-10 - E87.1) Plan Of Treatment Next Appt Details Provider Name:Delvin Mendenhall , 11/09/2024 02:45:00 PM, 2043 [facility] 15, [place], [address], Progress Notes * Ian MONSALVEDOB:1940 (84 yo M)Acc No.[id number]:07/27/2024 Progress Notes Patient: Ian SIMMONS Provider: Wendy WALKER MD, F.A.C.P, F.A.S.N. :1940 A ge:84 Y S ex:Male Date:07/27/2024 Address:[address] [place] [address] Subjective: * Chief Complaints: * * Medical History: Objective: * Vitals: Assessment: * Assessment: 1. C hronic kidney disease, stage 3b - N18.32 (Primary) 2 . E ssential (primary) hypertension - I10 3 . S yndrome of inappropriate secretion of antidiuretic hormone - E22.2 4 . H eart failure, unspecified - I50.9 5 . Cytokine release syndrome, grade unspecified - D82.984 6 . R enal osteodystrophy - N25.0 7 . U nspecified injury of unspecified kidney, initial encounter - S37.009A 8 . S econdary hyperparathyroidism, not elsewhere classified - E21.1 9. P roteinuria, unspecified - R80.9 1 0. E levation of levels of liver transaminase levels - R74.01 1 1. H ypo-osmolality and hyponatremia - E87.1 Plan: * Treatment: * Billing Information: * Visit Code: 47245 Office Visit, Est Pt., Level 4. * Procedure Codes: * Electronic signature of Mike Mendenhall MD on 11/04/2024 at 07:58 AM CDT Sign off status: Pending * Provider: Wendy WALKER MD, F.A.C.P, F.A.S.N. Date: 0 07/27/2024 Generated for Printing/Faxing/eTransmitting on: 0 11/04/2024 07:58 AM CDT
--- OUTSIDE RECORDS SUMMARY | 2024-11-04 07:59 | XMS_ITS | Continuity of Care Document ---
Author Organization [facility] Address [address] [place] [address] [address] [place] [address] Phone Care Team Providers Care Cartridge Assembling Machine Adjuster Name Role Phone Riley Muller Unavailable Unavailable Advance Directives Directive Yes / No Effective Date File Name No Information Encounters Encounter Description Practice Location Reason(s) For Visit Diagnoses Date Provider Providers Copied on Encounter [facility], [id number] [place] [address] [address], [place], [place], [id number], [place] tel:[phone] [facility] No Information [address] Pa[address] Edward. [address] , [address], [place], [address], [place]. tel:[phone] Family History Family Member Type Diagnosis Age At Onset No Information Payers Payer name Insurance type Covered alliance party ID Authoriza tion(s) [employer] SOI CI [id number] Social History Type Description Quantity Date Captured Comments Sex Male Smoking Status No Information Chief Complaint And Reason For Visit No Information Reason For Referral Reason For Referral No Information History Of Present Illness Encounter Date Complaint History Of Prese nt Illness No Information Functional Status Date Functional Assessmen t No Information Instructions Date Instruction Additional Infor mation No Information Assessments Type Assessment Date No Information Patient Care Teams Name Effective Dates (start - stop) Status Members No Information
--- OUTSIDE RECORDS SUMMARY | 2024-11-04 07:59 | XMS_ITS | Clinical Summary ---
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 Allergies Active Allergy Reactions Criticality Noted Date Comments Hydrocodone Unknown Low 11/16/2015 Eszopiclone Other (See comments) Low 02/23/2023 Gave him crazy dreams Morphine Tramadol Nausea only Low 02/23/2023 Trazodone Hcl Unknown High 09/08/2022 Hydrocodone-Acetaminoph en Nausea only Low 02/23/2023 Medications atenoloL (TENORMIN) 50 mg tablet Take 1 tablet (50 mg total) by mouth daily 07/31/19 23 Active clorazepate (TRANXENE) 15 mg tablet Take 0.5 tablets (7.5 mg total) by mouth 2 (two) times a day Active fenofibrate nanocrystallized (TRICOR) 145 mg tablet Take 1 tablet (145 mg total) by mouth daily 10/26/19 22 Active levothyroxine (SYNTHROID) 25 mcg tablet Take 1 tablet (25 mcg total) 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 01/08/20 19 Active atorvastatin (LIPITOR) 20 mg tablet Take 1 tablet (20 mg total) by mouth nightly 10/25/19 23 Active fluticasone propionate (Flonase Allergy Relief) 50 mcg/actuation nasal spray Administer 2 sprays into each nostril daily as needed for rhinitis or allergies 02/01/20 16 Active warfarin (COUMADIN) 2 mg tablet Take 1 tablet (2 mg total) by mouth once a week on Tuesdays Active warfarin (COUMADIN) 2 mg tablet Take 0.5 tablets (1 mg total) by mouth 6 (six) times a week from Thursday to Thursday Active calcitRIOL (ROCALTROL) 0.25 mcg capsule Take 1 capsule (0.25 mcg total) by mouth daily Active Tikosyn 125 mcg capsule Take 1 capsule (125 mcg total) by mouth 2 (two) times a day 10/08/19 25 Active ergocalciferol (VITAMIN D) 50,000 unit capsule Take 1 capsule (50,000 Units total) by mouth once a week thu Active amoxicillin-clavula pamela (AUGMENTIN) 875-125 mg per tablet Take 1 tablet (875 mg of amoxicillin total) by mouth 2 (two) times a day for 14 days 28 tablet 11/04/19 25 025 Active midodrine (PROAMATINE) 10 mg tabletIndications:S ymptomatic Orthostatic Hypotension Take 1 tablet (10 mg total) by mouth 3 (three) times a day before meals 90 tablet 11/04/19 25 025 Active tamsulosin (FLOMAX) 0.4 mg extended release capsule Take 1 capsule (0.4 mg total) by mouth daily with dinner 30 capsule 11/04/19 25 025 Active lisinopriL (PRINIVIL,ZESTRIL) 5 mg tablet Take 1 tablet (5 mg total) by mouth daily 07/12/19 23 025 Discontin ued(Error ) furosemide (LASIX) 40 mg tablet Take 0.5 tablets (20 mg total) by mouth daily 04/05/20 19 025 Discontin ued(Error ) warfarin (COUMADIN) 5 mg tablet Take 0.5 tablets (2.5 mg total) by mouth daily 025 Discontin ued(Error ) magnesium oxide (MAG-OX) 400 mg (241.3 mg elemental magnesium) tabletIndications:h ypomagnesemia Take 1 tablet (400 mg total) by mouth daily 025 Discontin ued(Error ) aspirin 81 mg enteric coated tablet Take 1 tablet (81 mg total) by mouth daily 12/07/19 16 025 Discontin ued(Stop Taking at Discharge ) sertraline (ZOLOFT) 25 mg tablet Take 1 tablet (25 mg total) by mouth daily 025 Discontin ued(Error ) multivit bzrneljx-irpc-QM-ca lcium (THERA-M) 9 mg iron-400 mcg tabletIndications:V itamin Deficiency Prevention Take 1 tablet by mouth daily 025 Discontin ued(Error ) digoxin (LANOXIN) 250 mcg (0.25 mg) tablet Take 1 tablet (250 mcg total) by mouth 3 (three) times a week on Mon, Thu, Thu10/08/19 025 Discontin ued(Stop Taking at Discharge ) Active Problems Problem Noted Date Diagnosed Date Acute congestive heart failu re, unspecified heart failure type 10/18/2024 Palpitations 02/23/2023 Encounters Date Type Department Care Team Description 11/03/2024 3:44 PM CDT Hospital Encounter [facility] [id number] [place] [id number] 10/18/2024 10:28 AM CDT - 11/03/2024 3:41 PM CDT Hospital Encounter [facility] [address] [place] [address] Zeke Correa DO Ogunremi, Olumide Omolulu, MD Rudomiotov, Olga, MD Burton, Jeffrey Ryan, DO Onaghise, Jude, MD Acute congestive heart failure, unspecified heart failure type (HCC) (Primary Dx); Chronic kidney disease, unspecified CKD stage; Pneumonia of right lung due to infectious organism, unspecified part of lung; Acute hypoxemic respiratory failure (HCC) Discharge Disposition: Discharge to SNF from Last 3 Months Immunizations Immunization Administration Dates Next Due Influenza, Quad, Adjuvantate d, Intramuscular 02/22/2021,02/20/2020 Influenza, Quadrivalent, Hig h Dose, Preservative Free, Intrr 02/26/2022,03/02/2019 Influenza, Trivalent, High D ose, Split, Preservative Free, Intramuscular 03/02/2019,02/24/2018,03/09/2016,01/30 Influenza, Trivalent, Preser vative Free, Intramuscular 03/03/2013 Pneumococcal Conjugate PCV 13 12/24/2018, 015 Pneumococcal, Unspecified 12/31/2015 Sars-CoV-2, Unspecified 06/22/2020 Surgical History Surgery Date Site/Laterality Comments CHOLECYSTECTOMY Social History Tobacco Use Types Packs/Day Years Used Date Smoking Tobacco: Former Cigarettes 1997 Passive Smoke Exposure: Past Smokeless Tobacco: Never Tobacco Cessation:Counseling Given: Not Answered [facility] Utilities Answer Date Recorded In the past 12 months has [employer], [employer], or water [employer] threatened to shut off services in your home? No 10/19/2024 Social Connection and Isolat ion Panel [NHANES] Answer Date Recorded In a typical week, how many times do you talk on the phone with family, friends, or neighbors? More than three times a week 10/19/2024 How often do you get togethe r with friends or relatives? More than three times a week 10/19/2024 How often do you attend [facility] or hindu services? More than 4 times per year 10/19/2024 Do you belong to any clubs o r organizations such as confucianism groups, unions, fraternal or athletic groups, or school groups? No 10/19/2024 How often do you attend meet ings of the clubs or organizations you belong to? Never 10/19/2024 Are you , , di vorced, , never , or living with a partner? 10/19/2024 AUDIT-C Answer Date Recorded Frequency of Alcohol Consumption Not on file 02/23/2023 Q2: How many drinks containi ng alcohol do you have on a typical day when you are drinking? Patient does not drink Frequency of Binge Drinking Not on file 10/0 06/2022 Overall Financial Resource Strain (CARDIA) Answe r Date Recorded How hard is it for you to pa y for the very basics like food, housing, medical care, and heating? Not very hard 10/19/2024 Hunger Vital Sign Answer Date Recorded Within the past 12 months, y ou worried that your food would run out before you got the money to buy more. Never true 10/20/19 25 Within the past 12 months, t he food you bought just didn't last and you didn't have money to get more. Never true 10/19/2024 PRAPARE - Transportation Answer Date Re corded In the past 12 months, has l ack of transportation kept you from medical appointments or from getting medications? No 09/23 In the past 12 months, has l ack of transportation kept you from meetings, work, or from getting things needed for daily living? No 10/19/2024 Housing Stability Vital Sign Answer Carmine e Recorded In the last 12 months, was t here a time when you were not able to pay the mortgage or rent on time? No 02/24/2023 In the last 12 months, how many places have you lived? 1 02/24/2023 In the last 12 months, was t here a time when you did not have a steady place to sleep or slept in a custodial (including now)? No 02/24/2023 Housing Stability Vital Sign Answer Carmine e Recorded In the last 12 months, was t here a time when you were not able to pay the mortgage or rent on time? No 10/19/2024 In the past 12 months, how m any times have you moved where you were living? 0 10/19/2024 At any time in the past 12 m [facility], were you homeless or living in a custodial (including now)? No 10/19/2024 Personal Safety Answer Date Recorded Have you ever been in or are you currently in a harmful physical or emotional relationship or is someone making you feel afraid or unsafe? 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 Gender Identity Not on file Sexual Orientation Not on file Obstetrics History Last Filed Vital Signs Vital Sign Reading Time Taken Comments Blood Pressure 121/80 11/03/2024 7:55 AM CDT Pulse 80 11/03/2024 7:55 AM CDT Temperature 36.3 C (97.3 F) 11/03/2024 7:55 AM CDT Respiratory Rate 17 11/03/2024 7:55 AM CDT Oxygen Saturation 90% 11/03/2024 9:01 AM CDT Inhaled Oxygen Concentration - - Weight 87.2 kg (192 lb 3.9 oz) 11/03/2024 4:09 A M CDT Height 170.2 cm (5' 7.01) 10/31/2024 3:08 PM CD T Body Mass Index 30.1 10/31/2024 3:08 PM CDT Plan of Treatment Health Maintenance Due Date Last Done Comments Depression Screening 1940 DTaP/Tdap/Td Vaccine (1 - Tdap) 1951 Hepatitis B Screening 1958 Zoster Vaccine (1 of 2) 1990 Well Visit 65+ 2005 Pneumococcal vaccine 65+ (2 of 2 - PPSV23) 02/18/2019 12/24/2018, 12/31/2015, 04/10/2015 Covid-19 Vaccine (2023-2 5 season) 2024 02/26/2022, 08/30/2021, 03/21/2021, Additional history exists Influenza Vaccine (Season Ended) 2025 02/26/2022, 02/22/2021, 02/20/2020, Additional history exists Fall Risk Assessment 11/03/2025 11/03/2024 Medical Devices Implanted Type Area Supervisor Pipe Finishing Device Identifier Shelf Expiration Date Model / Serial / Lot Icd ICD Left: Chest Procedures Procedure Name Priority Date/Time Associated Diagnosis Comments EGFR Routine 11/03/2024 6:28 AM CDT DIFFERENTIAL AUTO Routine 11/03/2024 6:2 8 AM CDT RENAL FUNCTION PANEL Routine 11/03/2024 6:28 AM CDT PROTIME-INR Routine 11/03/2024 6:28 AM CDT CBC WITH AUTO DIFFERENTIAL Routine 11/03/2024 6:28 AM CDT EGFR Routine 11/02/2024 7:24 AM CDT DIFFERENTIAL AUTO Routine 11/02/2024 7:2 4 AM CDT RENAL FUNCTION PANEL Routine 11/02/2024 7:24 AM CDT PROTIME-INR Routine 11/02/2024 7:24 AM CDT CBC WITH AUTO DIFFERENTIAL Routine 11/02/2024 7:24 AM CDT XR CHEST PA LATERAL 2 VIEWS IP Routine 11/01/2024 9:07 AM CDT EGFR Routine 11/01/2024 4:00 AM CDT DIFFERENTIAL AUTO Routine 11/01/2024 4:0 0 AM CDT RENAL FUNCTION PANEL Routine 11/01/2024 4:00 AM CDT PROTIME-INR Routine 11/01/2024 4:00 AM CDT CBC WITH AUTO DIFFERENTIAL Routine 11/01/2024 4:00 AM CDT EGFR Timed 10/31/2024 12:06 AM CDT DIFFERENTIAL AUTO Routine 10/31/2024 12: 06 AM CDT PRO B-TYPE NATRIURETIC PEPTIDE Routine 10/31/2024 12:06 AM CDT PROTIME-INR Routine 10/31/2024 12:06 AM CDT CBC WITH AUTO DIFFERENTIAL Routine 10/31/2024 12:06 AM CDT BASIC METABOLIC PANEL Timed 10/31/2024 12:06 AM CDT XR CHEST 1 VIEW ED Urgent/IP Urgent 10/30/2024 7:26 PM CDT EGFR Timed 10/30/2024 4:03 PM CDT BASIC METABOLIC PANEL Timed 10/30/2024 4:03 PM CDT TSH Routine 10/30/2024 7:25 AM CDT PRO B-TYPE NATRIURETIC PEPTIDE Add-On 10/30/2024 7:25 AM CDT EGFR Timed 10/30/2024 7:25 AM CDT BASIC METABOLIC PANEL Timed 10/30/2024 7:25 AM CDT EGFR Timed 10/30/2024 12:26 AM CDT DIFFERENTIAL AUTO Routine 10/30/2024 12: 26 AM CDT BASIC METABOLIC PANEL Timed 10/30/2024 12:26 AM CDT PROTIME-INR Routine 10/30/2024 12:26 AM CDT CBC WITH AUTO DIFFERENTIAL Routine 10/30/2024 12:26 AM CDT EGFR Routine 10/29/2024 9:15 PM CDT BASIC METABOLIC PANEL Routine 10/29/2024 9:15 PM CDT EGFR Routine 10/29/2024 3:45 AM CDT DIFFERENTIAL AUTO Routine 10/29/2024 3:4 5 AM CDT PROTIME-INR Routine 10/29/2024 3:45 AM CDT BASIC METABOLIC PANEL Routine 10/29/2024 3:45 AM CDT CBC WITH AUTO DIFFERENTIAL Routine 10/29/2024 3:45 AM CDT OSMOLALITY, URINE Routine 10/28/2024 12: 12 PM CDT CHLORIDE, URINE, RANDOM Routine 10/28/2024 12:12 PM CDT POTASSIUM, URINE, RANDOM Routine 10/28/2024 12:12 PM CDT SODIUM, URINE, RANDOM Routine 10/28/2024 12:12 PM CDT HOME O2 EVAL (DESATURATION SCREEN) Routine 10/28/2024 12:01 PM CDT OSMOLALITY, BLOOD Add-On 10/28/2024 4:1 3 AM CDT EGFR Routine 10/28/2024 4:13 AM CDT DIFFERENTIAL AUTO Routine 10/28/2024 4:1 3 AM CDT MAGNESIUM Routine 10/28/2024 4:13 AM CDT PROTIME-INR Routine 10/28/2024 4:13 AM CDT BASIC METABOLIC PANEL Routine 10/28/2024 4:13 AM CDT CBC WITH AUTO DIFFERENTIAL Routine 10/28/2024 4:13 AM CDT XR CHEST 1 VIEW ED Urgent/IP Urgent 10/27/2024 11:28 AM CDT EGFR Routine 10/27/2024 6:26 AM CDT DIFFERENTIAL AUTO Routine 10/27/2024 6:2 6 AM CDT PROTIME-INR Routine 10/27/2024 6:26 AM CDT BASIC METABOLIC PANEL Routine 10/27/2024 6:26 AM CDT CBC WITH AUTO DIFFERENTIAL Routine 10/27/2024 6:26 AM CDT XR CHEST 1 VIEW IP Routine 10/26/2024 11:06 AM CDT EGFR Routine 10/26/2024 6:28 AM CDT T4, FREE Routine 10/26/2024 6:28 AM CDT DIFFERENTIAL AUTO Routine 10/26/2024 6:2 8 AM CDT THYROID FUNCTION CASCADE Routine 10/26/2024 6:28 AM CDT CORTISOL Routine 10/26/2024 6:28 AM CDT PROTIME-INR Routine 10/26/2024 6:28 AM CDT BASIC METABOLIC PANEL Routine 10/26/2024 6:28 AM CDT CBC WITH AUTO DIFFERENTIAL Routine 10/26/2024 6:28 AM CDT EGFR Routine 10/25/2024 6:58 AM CDT DIFFERENTIAL AUTO Routine 10/25/2024 6:5 8 AM CDT PROTIME-INR Routine 10/25/2024 6:58 AM CDT BASIC METABOLIC PANEL Routine 10/25/2024 6:58 AM CDT CBC WITH AUTO DIFFERENTIAL Routine 10/25/2024 6:58 AM CDT XR CHEST 1 VIEW IP Routine 10/24/2024 1:49 PM CDT EGFR Routine 10/24/2024 4:15 AM CDT DIFFERENTIAL AUTO Routine 10/24/2024 4:1 5 AM CDT PROTIME-INR Routine 10/24/2024 4:15 AM CDT BASIC METABOLIC PANEL Routine 10/24/2024 4:15 AM CDT CBC WITH AUTO DIFFERENTIAL Routine 10/24/2024 4:15 AM CDT XR CHEST 1 VIEW IP Routine 10/23/2024 7:31 AM CDT EGFR Routine 10/23/2024 3:35 AM CDT DIFFERENTIAL AUTO Routine 10/23/2024 3:3 5 AM CDT PROTIME-INR Routine 10/23/2024 3:35 AM CDT BASIC METABOLIC PANEL Routine 10/23/2024 3:35 AM CDT CBC WITH AUTO DIFFERENTIAL Routine 10/23/2024 3:35 AM CDT EGFR Routine 10/22/2024 3:54 AM CDT DIFFERENTIAL AUTO Routine 10/22/2024 3:5 4 AM CDT PROTIME-INR Routine 10/22/2024 3:54 AM CDT BASIC METABOLIC PANEL Routine 10/22/2024 3:54 AM CDT CBC WITH AUTO DIFFERENTIAL Routine 10/22/2024 3:54 AM CDT MAGNESIUM Routine 10/22/2024 3:[address] ABDOMEN PELVIS WO CONTRAST IP Routine 10/21/2024 5:39 AM CDT EGFR Routine 10/21/2024 5:17 AM CDT DIFFERENTIAL AUTO Routine 10/21/2024 5:1 7 AM CDT PROTIME-INR Routine 10/21/2024 5:17 AM CDT BASIC METABOLIC PANEL Routine 10/21/2024 5:17 AM CDT CBC WITH AUTO DIFFERENTIAL Routine 10/21/2024 5:17 AM CDT MAGNESIUM Routine 10/21/2024 5:17 AM CDT TRANSTHORACIC ECHO (TTE) COMPLETE W DOPPLER/CF W CONTRAST Routine 10/20/2024 1:23 PM CDT EGFR Routine 10/20/2024 6:38 AM CDT DIFFERENTIAL AUTO Routine 10/20/2024 6:3 8 AM CDT DIGOXIN LEVEL Timed 10/20/2024 6:38 AM CDT PROTIME-INR Routine 10/20/2024 6:38 AM CDT BASIC METABOLIC PANEL Routine 10/20/2024 6:38 AM CDT CBC WITH AUTO DIFFERENTIAL Routine 10/20/2024 6:38 AM CDT MAGNESIUM Routine 10/20/2024 6:38 AM CDT US RETROPERITONEAL COMPLETE IP Routine 10/19/2024 3:09 PM CDT PROTEIN / CREATININE RATIO, URINE, RANDOM Routine 10/19/2024 12:33 PM CDT LEGIONELLA ANTIGEN, URINE Routine 10/19/2024 12:33 PM CDT STREP PNEUMONIAE AG, URINE Routine 10/19/2024 12:33 PM CDT URINALYSIS AND REFLEX TO MICROSCOPIC AND CULTURE Routine 10/19/2024 12:33 PM CDT C3 COMPLEMENT Routine 10/19/2024 12:15 PM CDT ERYTHROCYTE SEDIMENTATION RATE Routine 10/19/2024 12:15 PM CDT HEMOGLOBIN A1C Routine 10/19/2024 12:15 PM CDT LETICIA QUALITATIVE WITH REFLEX TO LETICIA QUANTITATIVE Routine 10/19/2024 12:15 PM CDT ANTI-NEUTROPHILIC CYTOPLASMIC ANTIBODY Routine 10/19/2024 12:15 PM CDT EGFR Routine 10/19/2024 5:12 AM CDT DIFFERENTIAL AUTO Routine 10/19/2024 5:1 2 AM CDT PROTIME-INR Routine 10/19/2024 5:12 AM CDT BASIC METABOLIC PANEL Routine 10/19/2024 5:12 AM CDT CBC WITH AUTO DIFFERENTIAL Routine 10/19/2024 5:12 AM CDT MAGNESIUM Routine 10/19/2024 5:12 AM CDT DIGOXIN LEVEL Timed 10/18/2024 4:32 PM CDT TROPONIN T HIGH-SENSITIVITY 6-HOUR Timed 10/18/2024 4:32 PM CDT TROPONIN T HIGH-SENSITIVITY 4-HR Timed 10/18/2024 2:[address] CHEST WO CONTRAST ED 10/18/2024 2:00 PM CDT BLOOD CULTURE STAT 10/18/2024 1:28 PM CDT BLOOD CULTURE STAT 10/18/2024 1:28 PM CDT PRO B-TYPE NATRIURETIC PEPTIDE Add-On 10/18/2024 12:26 PM CDT TROPONIN T HIGH-SENSITIVITY 2-HOUR Timed 10/18/2024 12:26 PM CDT XR CHEST 1 VIEW ED 10/18/2024 12:12 PM CDT EGFR STAT 10/18/2024 10:41 AM CDT DIFFERENTIAL AUTO STAT 10/18/2024 10: 41 AM CDT LACTATE STAT 10/18/2024 10:41 AM CDT TROPONIN T HIGH-SENSITIVITY SERIES (BASELINE, 2HR, 4HR, 6HR) STAT 10/18/2024 10:41 AM CDT CBC WITH AUTO DIFFERENTIAL STAT 10/18/2024 10:41 AM CDT COMPREHENSIVE METABOLIC PANEL STAT 10/18/2024 10:41 AM CDT RESPIRATORY PATHOGEN PANEL STAT 10/18/2024 10:41 AM CDT ECG 12-LEAD Routine 10/18/2024 10:33 AM CDT from Last 3 Months Results * (ABNORMAL) eGFR (11/03/2024 6:28 AM CDT) eGFR 58(L) >=60 mL/min/1. 73 m2 Comment: Interpretive Data Reference Interval Normal >/= 90 mL/min/1.73m2 Mildly decreased* 60 - 89 mL/min/1.73m2 Mildly to moderately decreased 45 - 59 mL/min/1.73m2 Moderately to severely decreased 30 - 44 mL/min/1.73m2 Severely decreased 15 - 29 mL/min/1.73m2 Kidney Failure < 15 mL/min/1.73m2 *Relative to young adult level Estimated glomerular filtration rate is determined by the 2020 CKD-EPI equation recommended by the National Kidney Foundation (A Unifying Approach to GFR Estimation: Recommendations of the NKF-ASK Task Force on Reassessing the Inclusion of Race in Diagnosing Kidney Disease, JASN 2020). The CKD-EPI equation should not be used for patients with unstable renal function and has not been validated in children and those over 70. Current interpretive data was last reviewed 2021. Blood 11/03/2024 6:28 AM CDT 11/03/2024 6:47 AM CDT us Ryan Bailey MD LAB BLOOD ORDERABLES Final [facility] lt [facility] [id number] Department [place] [address] * (ABNORMAL) Differential, auto (11/03/2024 6:28 AM CDT) Neutrophil abs 2.83 1.50 - 6.50 K/cumm Imm gran abs 0.04 0.00 - 0.10 K/cumm [facility] Lymphocyte abs 0.56(L) 0.80 - 3.30 K/cumm [facility] Monocyte abs 0.38 0.20 - 0.80 K/cumm [facility] Eosinophil abs 0.12 0.00 - 0.50 K/cumm [facility] Basophil abs 0.02 0.00 - 0.10 K/cumm [facility] Neutrophil pct 71.7 % [facility] Comment: Interpretive Data Percent cell count reference ranges are not reported, since discordance with absolute values may lead to misinterpretation of CBC data. Current Interpretive Data was last revised on 2017. Imm gran pct 1.0 % [facility] Comment: Interpretive Data Percent cell count reference ranges are not reported, since discordance with absolute values may lead to misinterpretation of CBC data. Current Interpretive Data was last revised on 2017. Lymphocyte pct 14.2 % [facility] Comment: Interpretive Data Percent cell count reference ranges are not reported, since discordance with absolute values may lead to misinterpretation of CBC data. Current Interpretive Data was last revised on 2017. Monocyte pct 9.6 % [facility] Comment: Interpretive Data Percent cell count reference ranges are not reported, since discordance with absolute values may lead to misinterpretation of CBC data. Current Interpretive Data was last revised on 2017. Eosinophil pct 3.0 % [facility] Comment: Interpretive Data Percent cell count reference ranges are not reported, since discordance with absolute values may lead to misinterpretation of CBC data. Current Interpretive Data was last revised on 2017. Basophil pct 0.5 % [facility] Comment: Interpretive Data Percent cell count reference ranges are not reported, since discordance with absolute values may lead to misinterpretation of CBC data. Current Interpretive Data was last revised on 2017. Blood 11/03/2024 6:28 AM CDT 11/03/2024 6:49 AM CDT Namrata Spencer NP LAB BLOOD ORDERABLES Final Result [facility] [id number] Department [place] [address] * (ABNORMAL) CBC with auto differential (11/03/2024 6:28 AM CDT) WBC 3.95 3.80 - 9.90 K/cumm Hgb 12.0(L) 13.0 - 17.5 g/dL [facility] Hct 36.4(L) 38.9 - 50.3 % [facility] Plt 143(L) 150 - 400 K/cumm [facility] MPV 11.7 9.1 - 12.3 fL [facility] RBC 3.85(L) 4.30 - 5.80 M/cumm [facility] MCV 94.5 81.3 - 96.4 fL [facility] MCH 31.2 27.1 - 33.3 pg [facility] MCHC 33.0 32.3 - 35.7 g/dL [facility] RDW CV 16.5(H) 11.1 - 14.9 % [facility] RDW SD 57.1(H) 35.7 - 48.1 fL [facility] NRBC abs 0.00 0.00 - 0.01 K/cumm [facility] Blood 11/03/2024 6:28 AM CDT 11/03/2024 6:49 AM CDT Namrata Spencer GUIDE DOG MOBILITY INSTRUCTOR LAB BLOOD ORDERABLES Final Result Performing Organization Address [facility] Co de Phone Number LAURIE ROSALES [phone] Department [place] [address] * (ABNORMAL) Protime-INR (11/03/2024 6:28 AM CDT) PT 42.2(H) 9.7 - 13.0 sec INR 3.80(H) 0.90 - 1.20 [facility] Comment: Interpretive data Oral anticoagulant therapeutic ranges: Venous thromboembolism prophylaxis or treatment: 2.0-3.0 CARDIOLOGY Standard range: 2.0-3.0 High-intensity range: 2.5-3.5 Refer to indication-specific guidelines for appropriate target ranges for prosthetic heart valve replacement. Current interpretive data was last revised on 2019. Blood 11/03/2024 6:28 AM CDT 11/03/2024 6:48 AM CDT Luan Guillermo DO LAB BLOOD ORDERABLES Fay l Result Performing Organization Address [facility] Co de Phone Number LAURIE [phone] Department [place] [address] * (ABNORMAL) Renal function panel (11/03/2024 6:28 AM CDT) Sodium 133(L) 135 - 145 mmol/L Potassium, pl 3.6 3.3 - 4.9 mmol/L [facility] Chloride 94(L) 97 - 110 mmol/L [facility] CO2 31 22 - 32 mmol/L [facility] Anion gap 8 2 - 15 mmol/L [facility] BUN 25 6 - 25 mg/dL [facility] Creatinine 1.22 0.80 - 1.30 mg/dL [facility] Glucose 118 70 - 199 mg/dL [facility] Comment: Interpretive Data Fasting glucose >/= 126 mg/dl is diagnostic for diabetes. Fasting is defined as no caloric intake for at least 8 hours. Fasting glucose between 100 mg/dl to 125 mg/dl is diagnostic of prediabetes. In a patient with classic symptoms of hyperglycemia or hyperglycemic crisis, a random glucose >/= 200 mg/dl is diagnostic for diabetes. In the absence of unequivocal hyperglycemia, results should be confirmed by repeat testing. The classification and Diagnosis of Diabetes Diabetes Care 2021; 46: S19-S40. Current interpretive data was last revised 2022. Calcium 8.1(L) 8.5 - 10.3 mg/dL [facility] Phosphorus, pl 2.4 2.3 - 4.5 mg/dL [facility] Albumin 2.8(L) 3.5 - 5.0 g/dL [facility] Blood 11/03/2024 6:28 AM CDT 11/03/2024 6:47 AM CDT us Ryan Bailey MD LAB BLOOD ORDERABLES Final Resu lt [facility] [id number] Department [place] [address] * (ABNORMAL) eGFR (11/02/2024 7:24 AM CDT) eGFR 56(L) >=60 mL/min/1. 73 m2 Comment: Interpretive Data Reference Interval Normal >/= 90 mL/min/1.73m2 Mildly decreased* 60 - 89 mL/min/1.73m2 Mildly to moderately decreased 45 - 59 mL/min/1.73m2 Moderately to severely decreased 30 - 44 mL/min/1.73m2 Severely decreased 15 - 29 mL/min/1.73m2 Kidney Failure < 15 mL/min/1.73m2 *Relative to young adult level Estimated glomerular filtration rate is determined by the 2020 CKD-EPI equation recommended by the National Kidney Foundation (A Unifying Approach to GFR Estimation: Recommendations of the NKF-ASK Task Force on Reassessing the Inclusion of Race in Diagnosing Kidney Disease, JASN 2020). The CKD-EPI equation should not be used for patients with unstable renal function and has not been validated in children and those over 70. Current interpretive data was last reviewed 2021. Blood 11/02/2024 7:24 AM CDT 11/02/2024 7:29 AM CDT us Ryan Bailey MD LAB BLOOD ORDERABLES Final Resu lt [facility] [id number] Department [place] [address] * (ABNORMAL) Differential, auto (11/02/2024 7:24 AM CDT) Neutrophil abs 3.09 1.50 - 6.50 K/cumm Imm gran abs 0.02 0.00 - 0.10 K/cumm [facility] Lymphocyte abs 0.54(L) 0.80 - 3.30 K/cumm [facility] Monocyte abs 0.35 0.20 - 0.80 K/cumm [facility] Eosinophil abs 0.09 0.00 - 0.50 K/cumm [facility] Basophil abs 0.02 0.00 - 0.10 K/cumm [facility] Neutrophil pct 75.2 % [facility] Comment: Interpretive Data Percent cell count reference ranges are not reported, since discordance with absolute values may lead to misinterpretation of CBC data. Current Interpretive Data was last revised on 2017. Imm gran pct 0.5 % [facility] Comment: Interpretive Data Percent cell count reference ranges are not reported, since discordance with absolute values may lead to misinterpretation of CBC data. Current Interpretive Data was last revised on 2017. Lymphocyte pct 13.1 % [facility] Comment: Interpretive Data Percent cell count reference ranges are not reported, since discordance with absolute values may lead to misinterpretation of CBC data. Current Interpretive Data was last revised on 2017. Monocyte pct 8.5 % [facility] Comment: Interpretive Data Percent cell count reference ranges are not reported, since discordance with absolute values may lead to misinterpretation of CBC data. Current Interpretive Data was last revised on 2017. Eosinophil pct 2.2 % [facility] Comment: Interpretive Data Percent cell count reference ranges are not reported, since discordance with absolute values may lead to misinterpretation of CBC data. Current Interpretive Data was last revised on 2017. Basophil pct 0.5 % [facility] Comment: Interpretive Data Percent cell count reference ranges are not reported, since discordance with absolute values may lead to misinterpretation of CBC data. Current Interpretive Data was last revised on 2017. Blood 11/02/2024 7:24 AM CDT 11/02/2024 7:29 AM CDT Namrata Spencer NP LAB BLOOD ORDERABLES Final Result [facility] [id number] Department [place] [address] * (ABNORMAL) CBC with auto differential (11/02/2024 7:24 AM CDT) WBC 4.11 3.80 - 9.90 K/cumm Hgb 12.2(L) 13.0 - 17.5 g/dL [facility] Hct 36.7(L) 38.9 - 50.3 % [facility] Plt 147(L) 150 - 400 K/cumm [facility] MPV 11.0 9.1 - 12.3 fL [facility] RBC 3.90(L) 4.30 - 5.80 M/cumm [facility] MCV 94.1 81.3 - 96.4 fL [facility] MCH 31.3 27.1 - 33.3 pg [facility] MCHC 33.2 32.3 - 35.7 g/dL [facility] RDW CV 16.6(H) 11.1 - 14.9 % [facility] RDW SD 57.5(H) 35.7 - 48.1 fL [facility] NRBC abs 0.00 0.00 - 0.01 K/cumm [facility] Blood 11/02/2024 7:24 AM CDT 11/02/2024 7:29 AM CDT Namrata Spencer NP LAB BLOOD ORDERABLES Final Result [facility] [address] Department [place] [address] * (ABNORMAL) Protime-INR (11/02/2024 7:24 AM CDT) PT 43.7(H) 9.7 - 13.0 sec INR 3.93(H) 0.90 - 1.20 [facility] Comment: Interpretive data Oral anticoagulant therapeutic ranges: Venous thromboembolism prophylaxis or treatment: 2.0-3.0 CARDIOLOGY Standard range: 2.0-3.0 High-intensity range: 2.5-3.5 Refer to indication-specific guidelines for appropriate target ranges for prosthetic heart valve replacement. Current interpretive data was last revised on 2019. Blood 11/02/2024 7:24 AM CDT 11/02/2024 7:30 AM CDT Luan Guillermo DO LAB BLOOD ORDERABLES Fay l Result Performing Organization Address City/State/[facility] Co de Phone Number [facility] [address] Department [place] [address] * (ABNORMAL) Renal function panel (11/02/2024 7:24 AM CDT) Pathologist [facility] Sodium 135 135 - 145 mmol/L Potassium, pl 3.7 3.3 - 4.9 mmol/L [facility] Chloride 96(L) 97 - 110 mmol/L [facility] CO2 32 22 - 32 mmol/L [facility] Anion gap 7 2 - 15 mmol/L [facility] BUN 29(H) 6 - 25 mg/dL [facility] Creatinine 1.27 0.80 - 1.30 mg/dL [facility] Glucose 119 70 - 199 mg/dL [facility] Comment: Interpretive Data Fasting glucose >/= 126 mg/dl is diagnostic for diabetes. Fasting is defined as no caloric intake for at least 8 hours. Fasting glucose between 100 mg/dl to 125 mg/dl is diagnostic of prediabetes. In a patient with classic symptoms of hyperglycemia or hyperglycemic crisis, a random glucose >/= 200 mg/dl is diagnostic for diabetes. In the absence of unequivocal hyperglycemia, results should be confirmed by repeat testing. The classification and Diagnosis of Diabetes Diabetes Care 202; 46: S19-S40. Current interpretive data was last revised 2022. Calcium 8.4(L) 8.5 - 10.3 mg/dL [facility] Phosphorus, pl 2.5 2.3 - 4.5 mg/dL [facility] Albumin 2.9(L) 3.5 - 5.0 g/dL [facility] Blood 11/02/2024 7:24 AM CDT 11/02/2024 7:29 AM CDT us Ryan Bailey MD LAB BLOOD ORDERABLES Final Resu lt [facility] [id number] Department [place] [address] * XR Chest Pa Lateral 2 Views (11/01/2024 9:07 AM CDT) Anatomical Region Laterality Modality Body, Chest N/A Computed Radiogr aphy 11/01/2024 9:12 AM CDT Impressions 11/01/2024 9:12 AM CDT OVERALL IMPROVEMENT. NO FAILURE. DECREASED RIGHT BASILAR INFILTRATE. SMALL RIGHT EFFUSION. Suspect interstitial lung disease Electronically signed by: Gilson Mercedes M.D. Narrative 11/01/2024 9:12 AM CDT EXAMINATION: XR CHEST PA LATERAL 2 VIEWS HISTORY: Shortness of breath heart disease FINDINGS: Compared with the study of 2 days earlier, postsurgical changes in the heart and mediastinum with normal heart size. Improvement in the pulmonary vascularity. Improved aeration of the right lung base with diminishing infiltrates. Background of interstitial lung disease suspected. Small right effusion. Pacing device stable. Procedure Note Gilson Mercedes MD - 11/01/2024 EXAMINATION: XR CHEST PA LATERAL 2 VIEWS HISTORY: Shortness of breath heart disease FINDINGS: Compared with the study of 2 days earlier, postsurgical changes in the heart and mediastinum with normal heart size. Improvement in the pulmonary vascularity. Improved aeration of the right lung base with diminishing infiltrates. Background of interstitial lung disease suspected. Small right effusion. Pacing device stable. IMPRESSION: OVERALL IMPROVEMENT. NO FAILURE. DECREASED RIGHT BASILAR INFILTRATE. SMALL RIGHT EFFUSION. Suspect interstitial lung disease Electronically signed by: Gilson Mercedes M.D. Lonnie Landin MD IMG XR PROCEDURES Final Result * (ABNORMAL) eGFR (11/01/2024 4:00 AM CDT) eGFR 51(L) >=60 mL/min/1. 73 m2 Comment: Interpretive Data Reference Interval Normal >/= 90 mL/min/1.73m2 Mildly decreased* 60 - 89 mL/min/1.73m2 Mildly to moderately decreased 45 - 59 mL/min/1.73m2 Moderately to severely decreased 30 - 44 mL/min/1.73m2 Severely decreased 15 - 29 mL/min/1.73m2 Kidney Failure < 15 mL/min/1.73m2 *Relative to young adult level Estimated glomerular filtration rate is determined by the 2020 CKD-EPI equation recommended by the National Kidney Foundation (A Unifying Approach to GFR Estimation: Recommendations of the NKF-ASK Task Force on Reassessing the Inclusion of Race in Diagnosing Kidney Disease, JASN 2020). The CKD-EPI equation should not be used for patients with unstable renal function and has not been validated in children and those over 70. Current interpretive data was last reviewed 2021. Blood 11/01/2024 4:00 AM CDT 11/01/2024 4:22 AM CDT Ryan Bailey MD LAB BLOOD ORDERABLES Final Resu lt [facility] [id number] Department [place] [address] * (ABNORMAL) Differential, auto (11/01/2024 4:00 AM CDT) Neutrophil abs 2.11 1.50 - 6.50 K/cumm Imm gran abs 0.01 0.00 - 0.10 K/cumm [facility] Lymphocyte abs 0.44(L) 0.80 - 3.30 K/cumm [facility] Monocyte abs 0.30 0.20 - 0.80 K/cumm [facility] Eosinophil abs 0.10 0.00 - 0.50 K/cumm [facility] Basophil abs 0.01 0.00 - 0.10 K/cumm [facility] Neutrophil pct 71.1 % [facility] Comment: Interpretive Data Percent cell count reference ranges are not reported, since discordance with absolute values may lead to misinterpretation of CBC data. Current Interpretive Data was last revised on 2017. Imm gran pct 0.3 % [facility] Comment: Interpretive Data Percent cell count reference ranges are not reported, since discordance with absolute values may lead to misinterpretation of CBC data. Current Interpretive Data was last revised on 2017. Lymphocyte pct 14.8 % [facility] Comment: Interpretive Data Percent cell count reference ranges are not reported, since discordance with absolute values may lead to misinterpretation of CBC data. Current Interpretive Data was last revised on 2017. Monocyte pct 10.1 % [facility] Comment: Interpretive Data Percent cell count reference ranges are not reported, since discordance with absolute values may lead to misinterpretation of CBC data. Current Interpretive Data was last revised on 2017. Eosinophil pct 3.4 % [facility] Comment: Interpretive Data Percent cell count reference ranges are not reported, since discordance with absolute values may lead to misinterpretation of CBC data. Current Interpretive Data was last revised on 2017. Basophil pct 0.3 % [facility] Comment: Interpretive Data Percent cell count reference ranges are not reported, since discordance with absolute values may lead to misinterpretation of CBC data. Current Interpretive Data was last revised on 2017. Blood 11/01/2024 4:00 AM CDT 11/01/2024 4:22 AM CDT Namrata Spencer NP LAB BLOOD ORDERABLES Final Result [facility] [address] Department [place] [address] * (ABNORMAL) CBC with auto differential (11/01/2024 4:00 AM CDT) WBC 2.97(L) 3.80 - 9.90 K/cumm Hgb 12.1(L) 13.0 - 17.5 g/dL [facility] Hct 36.3(L) 38.9 - 50.3 % [facility] Plt 133(L) 150 - 400 K/cumm [facility] MPV 11.9 9.1 - 12.3 fL [facility] RBC 3.91(L) 4.30 - 5.80 M/cumm [facility] MCV 92.8 81.3 - 96.4 fL [facility] MCH 30.9 27.1 - 33.3 pg [facility] MCHC 33.3 32.3 - 35.7 g/dL [facility] RDW CV 16.0(H) 11.1 - 14.9 % [facility] RDW SD 54.2(H) 35.7 - 48.1 fL [facility] NRBC abs 0.00 0.00 - 0.01 K/cumm [facility] Blood 11/01/2024 4:00 AM CDT 11/01/2024 4:22 AM CDT Namrata Spencer NP LAB BLOOD ORDERABLES Final [facility] [id number] Department [place] [address] * (ABNORMAL) Protime-INR (11/01/2024 4:00 AM CDT) Pathologist [facility] PT 29.6(H) 9.7 - 13.0 sec INR 2.69(H) 0.90 - 1.20 [facility] Comment: Interpretive data Oral anticoagulant therapeutic ranges: Venous thromboembolism prophylaxis or treatment: 2.0-3.0 CARDIOLOGY Standard range: 2.0-3.0 High-intensity range: 2.5-3.5 Refer to indication-specific guidelines for appropriate target ranges for prosthetic heart valve replacement. Current interpretive data was last revised on 2019. Blood 11/01/2024 4:00 AM CDT 11/01/2024 4:23 AM CDT Luan Guillermo DO LAB BLOOD ORDERABLES Fay l Result Performing Organization Address City/[facility]/ZIP Co de Phone Number [facility] [address] [place] [address] * (ABNORMAL) Renal function panel (11/01/2024 4:00 AM CDT) Sodium 137 135 - 145 mmol/L Potassium, pl 3.4 3.3 - 4.9 mmol/L [facility] Chloride 96(L) 97 - 110 mmol/L [facility] CO2 35(H) 22 - 32 mmol/L [facility] Anion gap 6 2 - 15 mmol/L [facility] BUN 34(H) 6 - 25 mg/dL [facility] Creatinine 1.37(H) 0.80 - 1.30 mg/dL [facility] Glucose 92 70 - 199 mg/dL [facility] Comment: Interpretive Data Fasting glucose >/= 126 mg/dl is diagnostic for diabetes. Fasting is defined as no caloric intake for at least 8 hours. Fasting glucose between 100 mg/dl to 125 mg/dl is diagnostic of prediabetes. In a patient with classic symptoms of hyperglycemia or hyperglycemic crisis, a random glucose >/= 200 mg/dl is diagnostic for diabetes. In the absence of unequivocal hyperglycemia, results should be confirmed by repeat testing. The classification and Diagnosis of Diabetes Diabetes Care 202; 46: S19-S40. Current interpretive data was last revised 2022. Calcium 8.4(L) 8.5 - 10.3 mg/dL [facility] Phosphorus, pl 2.0(L) 2.3 - 4.5 mg/dL [facility] Albumin 2.8(L) 3.5 - 5.0 g/dL [facility] Blood 11/01/2024 4:00 AM CDT 11/01/2024 4:22 AM CDT Ryan Bailey MD LAB BLOOD ORDERABLES Final Resu lt Performing Organization Address City/[facility]/ZIP Co de Phone Number [facility] [phone] Department [place] [address] * (ABNORMAL) eGFR (10/31/2024 12:06 AM CDT) eGFR 56(L) >=60 mL/min/1. 73 m2 Comment: Interpretive Data Reference Interval Normal >/= 90 mL/min/1.73m2 Mildly decreased* 60 - 89 mL/min/1.73m2 Mildly to moderately decreased 45 - 59 mL/min/1.73m2 Moderately to severely decreased 30 - 44 mL/min/1.73m2 Severely decreased 15 - 29 mL/min/1.73m2 Kidney Failure < 15 mL/min/1.73m2 *Relative to young adult level Estimated glomerular filtration rate is determined by the 2020 CKD-EPI equation recommended by the National Kidney Foundation (A Unifying Approach to GFR Estimation: Recommendations of the NKF-ASK Task Force on Reassessing the Inclusion of Race in Diagnosing Kidney Disease, JASN 2020). The CKD-EPI equation should not be used for patients with unstable renal function and has not been validated in children and those over 70. Current interpretive data was last reviewed 2021. Blood 10/31/2024 12:0 6 AM CDT 10/31/2024 12:18 AM CDT us Delvin Mendenhall MD LAB BLOOD ORDERABLES Final Res ult [facility] [id number] Department [place] [address] * (ABNORMAL) Differential, auto (10/31/2024 12:06 AM CDT) Pathologist [facility] Neutrophil abs 2.10 1.50 - 6.50 K/cumm Imm gran abs 0.01 0.00 - 0.10 K/cumm [facility] Lymphocyte abs 0.43(L) 0.80 - 3.30 K/cumm [facility] Monocyte abs 0.41 0.20 - 0.80 K/cumm [facility] Eosinophil abs 0.07 0.00 - 0.50 K/cumm [facility] Basophil abs 0.01 0.00 - 0.10 K/cumm [facility] Neutrophil pct 69.4 % [facility] Comment: Interpretive Data Percent cell count reference ranges are not reported, since discordance with absolute values may lead to misinterpretation of CBC data. Current Interpretive Data was last revised on 2017. Imm gran pct 0.3 % [facility] Comment: Interpretive Data Percent cell count reference ranges are not reported, since discordance with absolute values may lead to misinterpretation of CBC data. Current Interpretive Data was last revised on 2017. Lymphocyte pct 14.2 % [facility] Comment: Interpretive Data Percent cell count reference ranges are not reported, since discordance with absolute values may lead to misinterpretation of CBC data. Current Interpretive Data was last revised on 2017. Monocyte pct 13.5 % [facility] Comment: Interpretive Data Percent cell count reference ranges are not reported, since discordance with absolute values may lead to misinterpretation of CBC data. Current Interpretive Data was last revised on 2017. Eosinophil pct 2.3 % [facility] Comment: Interpretive Data Percent cell count reference ranges are not reported, since discordance with absolute values may lead to misinterpretation of CBC data. Current Interpretive Data was last revised on 2017. Basophil pct 0.3 % [facility] Comment: Interpretive Data Percent cell count reference ranges are not reported, since discordance with absolute values may lead to misinterpretation of CBC data. Current Interpretive Data was last revised on 2017. Blood 10/31/2024 12:0 6 AM CDT 10/31/2024 12:13 AM CDT Namrata Spencer [employer] LAB BLOOD ORDERABLES Final Result [facility] [address] Department [place] [address] * (ABNORMAL) Pro B-type natriuretic peptide (10/31/2024 12:06 AM CDT) NT-proBNP 4,761(H) <=450 pg/mL Comment: Interpretive Comments: A. Dyspnea in Acute Care Setting All Ages: < 300 pg/ml, acute heart failure unlikely. < 50 yrs: 300 - 450 pg/ml, further investigation warranted. > 450 pg/ml, acute heart failure likely. 50 - 74 yrs: 300 - 900 pg/ml, further investigation warranted. > 900 pg/ml, acute heart failure likely . > or = 75 yrs: 450 - 1800 pg/ml, further investigation warranted. > 1800 pg/ml, acute heart failure likely. B. Non-acute Setting < 75 yrs < 125 pg/ml, rules out heart failure. > or = 125 pg/ml, further investigation warranted. > or = 75 yrs < 450 pg/ml, rules out heart failure. > or = 450 pg/ml, further investigation warranted. - Knowledge of each individual patient's NT-proBNP range may be more useful than using similar cut-points for every patient. Please note that marked elevations in NT-proBNP levels may be observed in state other than Left Ventricular Congestive Failure, including: acute coronary syndromes, right heart strain/failure (including pulmonary embolism and cor pulmonale), critical illness, renal failure, as well as advanced age. - References: 1. Pedro CUEVAS et.al. Eur Heart J. 2006:27:330-337. 2. Daryl RW, Florecita AKBAR. J. AM Roger Cardiol: Cardiovasc Imag. 2009;2: 216- 225. Interpretive Data Last Revised Date: 2018. Blood 10/31/2024 12:0 6 AM CDT 10/31/2024 12:13 AM CDT us Ryan Bailey MD LAB BLOOD ORDERABLES Final Resu lt [facility] [address] Department [place] [address] * (ABNORMAL) CBC with auto differential (10/31/2024 12:06 AM CDT) WBC 3.03(L) 3.80 - 9.90 K/cumm Hgb 11.3(L) 13.0 - 17.5 g/dL [facility] Hct 33.1(L) 38.9 - 50.3 % [facility] Plt 124(L) 150 - 400 K/cumm [facility] MPV 11.4 9.1 - 12.3 fL [facility] RBC 3.65(L) 4.30 - 5.80 M/cumm [facility] MCV 90.7 81.3 - 96.4 fL [facility] MCH 31.0 27.1 - 33.3 pg [facility] MCHC 34.1 32.3 - 35.7 g/dL [facility] RDW CV 15.1(H) 11.1 - 14.9 % [facility] RDW SD 50.5(H) 35.7 - 48.1 fL [facility] NRBC abs 0.00 0.00 - 0.01 K/cumm [facility] Blood 10/31/2024 12:0 6 AM CDT 10/31/2024 12:13 AM CDT Namrata Spencer [employer] LAB BLOOD ORDERABLES Final Result Performing Organization Address [facility] de Phone Number [facility] [address] [place] [address] * (ABNORMAL) Protime-INR (10/31/2024 12:06 AM CDT) PT 18.9(H) 9.7 - 13.0 sec INR 1.73(H) 0.90 - 1.20 [facility] Comment: Interpretive data Oral anticoagulant therapeutic ranges: Venous thromboembolism prophylaxis or treatment: 2.0-3.0 CARDIOLOGY Standard range: 2.0-3.0 High-intensity range: 2.5-3.5 Refer to indication-specific guidelines for appropriate target ranges for prosthetic heart valve replacement. Current interpretive data was last revised on 2019. Blood 10/31/2024 12:0 6 AM CDT 10/31/2024 12:13 AM CDT Luan Guillermo DO LAB BLOOD ORDERABLES Fay l Result Performing Organization Address [facility] Co de Phone Number [facility] [phone] [facility] [employer] [place], [place] [id number] * (ABNORMAL) Basic metabolic panel (10/31/2024 12:06 AM CDT) Sodium 123(C) 135 - 145 mmol/L Comment:Critical Result call ed to and read back by Tiffanyjessie Sotero, DATE: 2024-10-31 00:59:18 BY: Silverio Parr Potassium, pl 3.7 3.3 - 4.9 mmol/L [facility] Chloride 89(L) 97 - 110 mmol/L [facility] CO2 30 22 - 32 mmol/L [facility] Anion gap 4 2 - 15 mmol/L [facility] BUN 32(H) 6 - 25 mg/dL [facility] Creatinine 1.26 0.80 - 1.30 mg/dL [facility] Glucose 106 70 - 199 mg/dL [facility] Comment: Interpretive Data Fasting glucose >/= 126 mg/dl is diagnostic for diabetes. Fasting is defined as no caloric intake for at least 8 hours. Fasting glucose between 100 mg/dl to 125 mg/dl is diagnostic of prediabetes. In a patient with classic symptoms of hyperglycemia or hyperglycemic crisis, a random glucose >/= 200 mg/dl is diagnostic for diabetes. In the absence of unequivocal hyperglycemia, results should be confirmed by repeat testing. The classification and Diagnosis of Diabetes Diabetes Care 2021; 46: S19-S40. Current interpretive data was last revised 2022. Calcium 7.6(L) 8.5 - 10.3 mg/dL [facility] Blood 10/31/2024 12:0 6 AM CDT 10/31/2024 12:13 AM CDT us Delvin Mendenhall MD LAB BLOOD ORDERABLES Final Res ult [facility] [address] Department [place] [address] * XR Chest 1 View (10/30/2024 7:26 PM CDT) Anatomical Region Laterality Modality Body, Chest N/A Computed Radiogr aphy 10/30/2024 7:44 PM CDT Impressions 10/30/2024 7:44 PM CDT Interval worsening of the pulmonary vascular congestion. Electronically signed by: Coco Youngblood M.D. Narrative 10/30/2024 7:44 PM CDT EXAMINATION: XR CHEST 1 VIEW HISTORY: The patient is an 84-year-old male who presents with shortness of breath. Comparison made with the previous study dated 10/27/2024. TECHNIQUE: AP portable view of the chest. FINDINGS: Cardiomegaly with aortic atherosclerosis. Interval worsening of the pulmonary vascular congestion. No focal consolidation. Procedure Note Coco Youngblood MD - 10/30/2024 EXAMINATION: XR CHEST 1 VIEW HISTORY: The patient is an 84-year-old male who presents with shortness of breath. Comparison made with the previous study dated 10/27/2024. TECHNIQUE: AP portable view of the chest. FINDINGS: Cardiomegaly with aortic atherosclerosis. Interval worsening of the pulmonary vascular congestion. No focal consolidation. IMPRESSION: Interval worsening of the pulmonary vascular congestion. Electronically signed by: Coco Youngblood M.D. us Ryan Bailey MD IMG XR PROCEDURES Final Result * eGFR (10/30/2024 4:03 PM CDT) eGFR 60 >=60 mL/min/1. 73 m2 Comment: Interpretive Data Reference Interval Normal >/= 90 mL/min/1.73m2 Mildly decreased* 60 - 89 mL/min/1.73m2 Mildly to moderately decreased 45 - 59 mL/min/1.73m2 Moderately to severely decreased 30 - 44 mL/min/1.73m2 Severely decreased 15 - 29 mL/min/1.73m2 Kidney Failure < 15 mL/min/1.73m2 *Relative to young adult level Estimated glomerular filtration rate is determined by the 2020 CKD-EPI equation recommended by the National Kidney Foundation (A Unifying Approach to GFR Estimation: Recommendations of the NKF-ASK Task Force on Reassessing the Inclusion of Race in Diagnosing Kidney Disease, JASN 2020). The CKD-EPI equation should not be used for patients with unstable renal function and has not been validated in children and those over 70. Current interpretive data was last reviewed 2021. Blood 10/30/2024 4:03 PM CDT 10/30/2024 4:53 PM CDT us Delvin Mendenhall MD LAB BLOOD ORDERABLES Final Res ult Performing Organization Address City/[facility]/ZIP Co de Phone Number [facility]URIE ROSALES [phone] [place] [address] * (ABNORMAL) Basic metabolic panel (10/30/2024 4:03 PM CDT) Sodium 121(C) 135 - 145 mmol/L Comment:Critical Result call ed to and read back by Dinora Meier, DATE: 2024-10-30 17:26:18 BY: Georgiana Devine Potassium, pl 4.0 3.3 - 4.9 mmol/L [facility] Chloride 85(L) 97 - 110 mmol/L [facility] CO2 26 22 - 32 mmol/L [facility] Anion gap 10 2 - 15 mmol/L [facility] BUN 30(H) 6 - 25 mg/dL [facility] Creatinine 1.19 0.80 - 1.30 mg/dL [facility] Glucose 110 70 - 199 mg/dL [facility] Comment: Interpretive Data Fasting glucose >/= 126 mg/dl is diagnostic for diabetes. Fasting is defined as no caloric intake for at least 8 hours. Fasting glucose between 100 mg/dl to 125 mg/dl is diagnostic of prediabetes. In a patient with classic symptoms of hyperglycemia or hyperglycemic crisis, a random glucose >/= 200 mg/dl is diagnostic for diabetes. In the absence of unequivocal hyperglycemia, results should be confirmed by repeat testing. The classification and Diagnosis of Diabetes Diabetes Care 202; 46: S19-S40. Current interpretive data was last revised 2022. Calcium 7.8(L) 8.5 - 10.3 mg/dL [facility] Blood 10/30/2024 4:03 PM CDT 10/30/2024 4:53 PM CDT us Delvin Mendenhall MD LAB BLOOD ORDERABLES Final Res ult Performing Organization Address City/[facility]/ZIP Co de Phone Number LAURIE ROSALES [address] [place] [address] * eGFR (10/30/2024 7:25 AM CDT) eGFR 61 >=60 mL/min/1. 73 m2 Comment: Interpretive Data Reference Interval Normal >/= 90 mL/min/1.73m2 Mildly decreased* 60 - 89 mL/min/1.73m2 Mildly to moderately decreased 45 - 59 mL/min/1.73m2 Moderately to severely decreased 30 - 44 mL/min/1.73m2 Severely decreased 15 - 29 mL/min/1.73m2 Kidney Failure < 15 mL/min/1.73m2 *Relative to young adult level Estimated glomerular filtration rate is determined by the 2020 CKD-EPI equation recommended by the National Kidney Foundation (A Unifying Approach to GFR Estimation: Recommendations of the NKF-ASK Task Force on Reassessing the Inclusion of Race in Diagnosing Kidney Disease, JASN 2020). The CKD-EPI equation should not be used for patients with unstable renal function and has not been validated in children and those over 70. Current interpretive data was last reviewed 2021. Blood 10/30/2024 7:25 AM CDT 10/30/2024 8:31 AM CDT us Delvin Mendenhall MD LAB BLOOD ORDERABLES Final Res ult [address]IE [address] [place] [address] * (ABNORMAL) Pro B-type natriuretic peptide (10/30/2024 7:25 AM CDT) NT-proBNP 3,978(H) <=450 pg/mL Comment: Interpretive Comments: A. Dyspnea in Acute Care Setting All Ages: < 300 pg/ml, acute heart failure unlikely. < 50 yrs: 300 - 450 pg/ml, further investigation warranted. > 450 pg/ml, acute heart failure likely. 50 - 74 yrs: 300 - 900 pg/ml, further investigation warranted. > 900 pg/ml, acute heart failure likely . > or = 75 yrs: 450 - 1800 pg/ml, further investigation warranted. > 1800 pg/ml, acute heart failure likely. B. Non-acute Setting < 75 yrs < 125 pg/ml, rules out heart failure. > or = 125 pg/ml, further investigation warranted. > or = 75 yrs < 450 pg/ml, rules out heart failure. > or = 450 pg/ml, further investigation warranted. - Knowledge of each individual patient's NT-proBNP range may be more useful than using similar cut-points for every patient. Please note that marked elevations in NT-proBNP levels may be observed in state other than Left Ventricular Congestive Failure, including: acute coronary syndromes, right heart strain/failure (including pulmonary embolism and cor pulmonale), critical illness, renal failure, as well as advanced age. - References: 1. Pedro CUEVAS et.al. Eur Heart J. 2006:27:330-337. 2. Daryl RW, Florecita AKBAR. J. AM Roger Cardiol: Cardiovasc Imag. 2009;2: 216- 225. Interpretive Data Last Revised Date: 2018. Blood 10/30/2024 7:25 AM CDT 10/30/2024 11:01 AM CDT Ryan Bailey MD LAB BLOOD ORDERABLES Final Resu lt Performing Organization Address [facility] de Phone Number BRYNYEE ROSALES [phone] [employer] [place], [place] [id number] * (ABNORMAL) TSH (10/30/2024 7:25 AM CDT) Thyroid Stimulating Hormone 5.74(H) 0.30 - 4.20 mcIUnit/mL Blood 10/30/2024 7:25 AM CDT 10/30/2024 11:01 AM CDT Delvin Mendenhall MD LAB BLOOD ORDERABLES Final Res ult Performing Organization Address [facility] [place] [address] [address] [place] [address] * (ABNORMAL) Basic metabolic panel (10/30/2024 7:25 AM CDT) Sodium 121(C) 135 - 145 mmol/L Comment:Critical Result call ed to and read back by Adam Meier, DATE: 2024-10-30 09:14:47 BY: Brandon Olmedo Potassium, pl 3.6 3.3 - 4.9 mmol/L [facility] Chloride 84(L) 97 - 110 mmol/L [facility] CO2 28 22 - 32 mmol/L [facility] Anion gap 9 2 - 15 mmol/L [facility] BUN 28(H) 6 - 25 mg/dL [facility] Creatinine 1.17 0.80 - 1.30 mg/dL [facility] Glucose 104 70 - 199 mg/dL [facility] Comment: Interpretive Data Fasting glucose >/= 126 mg/dl is diagnostic for diabetes. Fasting is defined as no caloric intake for at least 8 hours. Fasting glucose between 100 mg/dl to 125 mg/dl is diagnostic of prediabetes. In a patient with classic symptoms of hyperglycemia or hyperglycemic crisis, a random glucose >/= 200 mg/dl is diagnostic for diabetes. In the absence of unequivocal hyperglycemia, results should be confirmed by repeat testing. The classification and Diagnosis of Diabetes Diabetes Care 2021; 46: S19-S40. Current interpretive data was last revised 2022. Calcium 7.8(L) 8.5 - 10.3 mg/dL [facility] Blood 10/30/2024 7:25 AM CDT 10/30/2024 8:31 AM CDT us Delvin Mendenhall MD LAB BLOOD ORDERABLES Final Res ult LAURIE [address] Department [place] [address] * (ABNORMAL) eGFR (10/30/2024 12:26 AM CDT) eGFR 57(L) >=60 mL/min/1. 73 m2 Comment: Interpretive Data Reference Interval Normal >/= 90 mL/min/1.73m2 Mildly decreased* 60 - 89 mL/min/1.73m2 Mildly to moderately decreased 45 - 59 mL/min/1.73m2 Moderately to severely decreased 30 - 44 mL/min/1.73m2 Severely decreased 15 - 29 mL/min/1.73m2 Kidney Failure < 15 mL/min/1.73m2 *Relative to young adult level Estimated glomerular filtration rate is determined by the 2020 CKD-EPI equation recommended by the National Kidney Foundation (A Unifying Approach to GFR Estimation: Recommendations of the NKF-ASK Task Force on Reassessing the Inclusion of Race in Diagnosing Kidney Disease, JASN 202). The CKD-EPI equation should not be used for patients with unstable renal function and has not been validated in children and those over 70. Current interpretive data was last reviewed 2021. Blood 10/30/2024 12:2 6 AM CDT 10/30/2024 12:40 AM CDT us Delvin Mendenhall MD LAB BLOOD ORDERABLES Final Res ult [facility] [address] Department [place] [address] * (ABNORMAL) Differential, auto (10/30/2024 12:26 AM CDT) Neutrophil abs 2.64 1.50 - 6.50 K/cumm Imm gran abs 0.04 0.00 - 0.10 K/cumm [facility] Lymphocyte abs 0.56(L) 0.80 - 3.30 K/cumm [facility] Monocyte abs 0.49 0.20 - 0.80 K/cumm [facility] Eosinophil abs 0.08 0.00 - 0.50 K/cumm [facility] Basophil abs 0.01 0.00 - 0.10 K/cumm [facility] Neutrophil pct 69.1 % [facility] Comment: Interpretive Data Percent cell count reference ranges are not reported, since discordance with absolute values may lead to misinterpretation of CBC data. Current Interpretive Data was last revised on 2017. Imm gran pct 1.0 % [facility] Comment: Interpretive Data Percent cell count reference ranges are not reported, since discordance with absolute values may lead to misinterpretation of CBC data. Current Interpretive Data was last revised on 2017. Lymphocyte pct 14.7 % [facility] Comment: Interpretive Data Percent cell count reference ranges are not reported, since discordance with absolute values may lead to misinterpretation of CBC data. Current Interpretive Data was last revised on 2017. Monocyte pct 12.8 % [facility] Comment: Interpretive Data Percent cell count reference ranges are not reported, since discordance with absolute values may lead to misinterpretation of CBC data. Current Interpretive Data was last revised on 2017. Eosinophil pct 2.1 % [facility] Comment: Interpretive Data Percent cell count reference ranges are not reported, since discordance with absolute values may lead to misinterpretation of CBC data. Current Interpretive Data was last revised on 2017. Basophil pct 0.3 % [facility] Comment: Interpretive Data Percent cell count reference ranges are not reported, since discordance with absolute values may lead to misinterpretation of CBC data. Current Interpretive Data was last revised on 2017. Blood 10/30/2024 12:2 6 AM CDT 10/30/2024 12:40 AM CDT Namrata Spencer NP LAB BLOOD ORDERABLES Final Result [facility] [address] Department [place] [address] * (ABNORMAL) CBC with auto differential (10/30/2024 12:26 AM CDT) WBC 3.82 3.80 - 9.90 K/cumm Hgb 12.2(L) 13.0 - 17.5 g/dL [facility] Hct 35.6(L) 38.9 - 50.3 % [facility] Plt 122(L) 150 - 400 K/cumm [facility] MPV 11.9 9.1 - 12.3 fL [facility] RBC 3.89(L) 4.30 - 5.80 M/cumm [facility] MCV 91.5 81.3 - 96.4 fL [facility] MCH 31.4 27.1 - 33.3 pg [facility] MCHC 34.3 32.3 - 35.7 g/dL [facility] RDW CV 15.2(H) 11.1 - 14.9 % [facility] RDW SD 51.4(H) 35.7 - 48.1 fL [facility] NRBC abs 0.00 0.00 - 0.01 K/cumm [facility] Blood 10/30/2024 12:2 6 AM CDT 10/30/2024 12:40 AM CDT Namrata Spencer NP LAB BLOOD ORDERABLES Final Result Performing Organization Address City/[facility]/ZIP Co de Phone Number [facility] [address] Department [place] [address] * (ABNORMAL) Protime-INR (10/30/2024 12:26 AM CDT) PT 18.9(H) 9.7 - 13.0 sec INR 1.73(H) 0.90 - 1.20 [facility] Comment: Interpretive data Oral anticoagulant therapeutic ranges: Venous thromboembolism prophylaxis or treatment: 2.0-3.0 CARDIOLOGY Standard range: 2.0-3.0 High-intensity range: 2.5-3.5 Refer to indication-specific guidelines for appropriate target ranges for prosthetic heart valve replacement. Current interpretive data was last revised on 2019. Blood 10/30/2024 12:2 6 AM CDT 10/30/2024 12:39 AM CDT Luan Guillermo DO LAB BLOOD ORDERABLES Fay l Result Performing Organization Address City/[facility]/ZIP Co de Phone Number [facility] [id number] Department of Laboratories [place], [place] [id number] * (ABNORMAL) Basic metabolic panel (10/30/2024 12:26 AM CDT) Sodium 119(C) 135 - 145 mmol/L Comment:Critical Result call ed to and read back by Sherrell Howard, DATE: 2024-10-30 01:24:16 BY: Rose Mary Anne Potassium, pl 3.8 3.3 - 4.9 mmol/L [facility] Chloride 83(L) 97 - 110 mmol/L [facility] CO2 29 22 - 32 mmol/L [facility] Anion gap 7 2 - 15 mmol/L [facility] BUN 32(H) 6 - 25 mg/dL [facility] Creatinine 1.25 0.80 - 1.30 mg/dL [facility] Glucose 117 70 - 199 mg/dL [facility] Comment: Interpretive Data Fasting glucose >/= 126 mg/dl is diagnostic for diabetes. Fasting is defined as no caloric intake for at least 8 hours. Fasting glucose between 100 mg/dl to 125 mg/dl is diagnostic of prediabetes. In a patient with classic symptoms of hyperglycemia or hyperglycemic crisis, a random glucose >/= 200 mg/dl is diagnostic for diabetes. In the absence of unequivocal hyperglycemia, results should be confirmed by repeat testing. The classification and Diagnosis of Diabetes Diabetes Care 202; 46: S19-S40. Current interpretive data was last revised 2022. Calcium 7.8(L) 8.5 - 10.3 mg/dL [facility] Blood 10/30/2024 12:2 6 AM CDT 10/30/2024 12:40 AM CDT us Delvin Mendenhall MD LAB BLOOD ORDERABLES Final Res ult [address]URIE [address] Department [place] [address] * (ABNORMAL) eGFR (10/29/2024 9:15 PM CDT) eGFR 56(L) >=60 mL/min/1. 73 m2 Comment: Interpretive Data Reference Interval Normal >/= 90 mL/min/1.73m2 Mildly decreased* 60 - 89 mL/min/1.73m2 Mildly to moderately decreased 45 - 59 mL/min/1.73m2 Moderately to severely decreased 30 - 44 mL/min/1.73m2 Severely decreased 15 - 29 mL/min/1.73m2 Kidney Failure < 15 mL/min/1.73m2 *Relative to young adult level Estimated glomerular filtration rate is determined by the 2020 CKD-EPI equation recommended by the National Kidney Foundation (A Unifying Approach to GFR Estimation: Recommendations of the NKF-ASK Task Force on Reassessing the Inclusion of Race in Diagnosing Kidney Disease, JASN 2020). The CKD-EPI equation should not be used for patients with unstable renal function and has not been validated in children and those over 70. Current interpretive data was last reviewed 2021. Blood 10/29/2024 9:15 PM CDT 10/29/2024 9:19 PM CDT us Delvin Mendenhall MD LAB BLOOD ORDERABLES Final Res ult [facility] [address] Department [place] [address] * (ABNORMAL) Basic metabolic panel (10/29/2024 9:15 PM CDT) Sodium 118(C) 135 - 145 mmol/L Comment:Critical Result call ed to and read back by Letitia Bey, DATE: 2024-10-29 22:05:05 BY: Rose Mary Anne Potassium, pl 4.0 3.3 - 4.9 mmol/L [facility] Chloride 82(L) 97 - 110 mmol/L [facility] CO2 27 22 - 32 mmol/L [facility] Anion gap 9 2 - 15 mmol/L [facility] BUN 31(H) 6 - 25 mg/dL [facility] Creatinine 1.26 0.80 - 1.30 mg/dL [facility] Glucose 128 70 - 199 mg/dL [facility] Comment: Interpretive Data Fasting glucose >/= 126 mg/dl is diagnostic for diabetes. Fasting is defined as no caloric intake for at least 8 hours. Fasting glucose between 100 mg/dl to 125 mg/dl is diagnostic of prediabetes. In a patient with classic symptoms of hyperglycemia or hyperglycemic crisis, a random glucose >/= 200 mg/dl is diagnostic for diabetes. In the absence of unequivocal hyperglycemia, results should be confirmed by repeat testing. The classification and Diagnosis of Diabetes Diabetes Care 2021; 46: S19-S40. Current interpretive data was last revised 2022. Calcium 7.9(L) 8.5 - 10.3 mg/dL [facility] Blood 10/29/2024 9:15 PM CDT 10/29/2024 9:19 PM CDT us Delvin Mendenhall MD LAB BLOOD ORDERABLES Final Res ult Performing Organization Address [facility] Co de Phone Number LAURIE ROSALES [address] Department [place] [address] * (ABNORMAL) eGFR (10/29/2024 3:45 AM CDT) eGFR 45(L) >=60 mL/min/1. 73 m2 Comment: Interpretive Data Reference Interval Normal >/= 90 mL/min/1.73m2 Mildly decreased* 60 - 89 mL/min/1.73m2 Mildly to moderately decreased 45 - 59 mL/min/1.73m2 Moderately to severely decreased 30 - 44 mL/min/1.73m2 Severely decreased 15 - 29 mL/min/1.73m2 Kidney Failure < 15 mL/min/1.73m2 *Relative to young adult level Estimated glomerular filtration rate is determined by the 2020 CKD-EPI equation recommended by the National Kidney Foundation (A Unifying Approach to GFR Estimation: Recommendations of the NKF-ASK Task Force on Reassessing the Inclusion of Race in Diagnosing Kidney Disease, JASN 2020). The CKD-EPI equation should not be used for patients with unstable renal function and has not been validated in children and those over 70. Current interpretive data was last reviewed 2021. Blood 10/29/2024 3:45 AM CDT 10/29/2024 4:27 AM CDT us Namrata Spencer NP LAB BLOOD ORDERABLES Final Result Performing Organization Address City/[facility]/ZIP Co de Phone Number BRYNYEE ROSALES [phone] Department [place] [address] * (ABNORMAL) Differential, auto (10/29/2024 3:45 AM CDT) Neutrophil abs 2.19 1.50 - 6.50 K/cumm Imm gran abs 0.02 0.00 - 0.10 K/cumm [facility] Lymphocyte abs 0.56(L) 0.80 - 3.30 K/cumm [facility] Monocyte abs 0.41 0.20 - 0.80 K/cumm [facility] Eosinophil abs 0.09 0.00 - 0.50 K/cumm [facility] Basophil abs 0.03 0.00 - 0.10 K/cumm [facility] Neutrophil pct 66.4 % [facility] Comment: Interpretive Data Percent cell count reference ranges are not reported, since discordance with absolute values may lead to misinterpretation of CBC data. Current Interpretive Data was last revised on 2017. Imm gran pct 0.6 % [facility] Comment: Interpretive Data Percent cell count reference ranges are not reported, since discordance with absolute values may lead to misinterpretation of CBC data. Current Interpretive Data was last revised on 2017. Lymphocyte pct 17.0 % [facility] Comment: Interpretive Data Percent cell count reference ranges are not reported, since discordance with absolute values may lead to misinterpretation of CBC data. Current Interpretive Data was last revised on 2017. Monocyte pct 12.4 % [facility] Comment: Interpretive Data Percent cell count reference ranges are not reported, since discordance with absolute values may lead to misinterpretation of CBC data. Current Interpretive Data was last revised on 2017. Eosinophil pct 2.7 % [facility] Comment: Interpretive Data Percent cell count reference ranges are not reported, since discordance with absolute values may lead to misinterpretation of CBC data. Current Interpretive Data was last revised on 2017. Basophil pct 0.9 % [facility] Comment: Interpretive Data Percent cell count reference ranges are not reported, since discordance with absolute values may lead to misinterpretation of CBC data. Current Interpretive Data was last revised on 2017. Blood 10/29/2024 3:45 AM CDT 10/29/2024 4:28 AM CDT us Namrata Spencer NP LAB BLOOD ORDERABLES Final Result [address] Department [place] [address] * (ABNORMAL) CBC with auto differential (10/29/2024 3:45 AM CDT) WBC 3.30(L) 3.80 - 9.90 K/cumm Hgb 11.9(L) 13.0 - 17.5 g/dL [facility] Hct 35.3(L) 38.9 - 50.3 % [facility] Plt 120(L) 150 - 400 K/cumm [facility] MPV 12.5(H) 9.1 - 12.3 fL [facility] RBC 3.79(L) 4.30 - 5.80 M/cumm [facility] MCV 93.1 81.3 - 96.4 fL [facility] MCH 31.4 27.1 - 33.3 pg [facility] MCHC 33.7 32.3 - 35.7 g/dL [facility] RDW CV 15.7(H) 11.1 - 14.9 % [facility] RDW SD 53.3(H) 35.7 - 48.1 fL [facility] NRBC abs 0.00 0.00 - 0.01 K/cumm [facility] Blood 10/29/2024 3:45 AM CDT 10/29/2024 4:28 AM CDT Namrata Spencer NP LAB BLOOD ORDERABLES Final Result [facility] [address] Department [place] [address] * (ABNORMAL) Protime-INR (10/29/2024 3:45 AM CDT) PT 17.0(H) 9.7 - 13.0 sec INR 1.56(H) 0.90 - 1.20 [facility] Comment: Interpretive data Oral anticoagulant therapeutic ranges: Venous thromboembolism prophylaxis or treatment: 2.0-3.0 CARDIOLOGY Standard range: 2.0-3.0 High-intensity range: 2.5-3.5 Refer to indication-specific guidelines for appropriate target ranges for prosthetic heart valve replacement. Current interpretive data was last revised on 2019. Blood 10/29/2024 3:45 AM CDT 10/29/2024 4:28 AM CDT Luan Guillermo DO LAB BLOOD ORDERABLES Fay l Result LAURIE ROSALES [address] Department of [employer] [place], [place] [id number] * (ABNORMAL) Basic metabolic panel (10/29/2024 3:45 AM CDT) Pathologist [facility] Sodium 126(L) 135 - 145 mmol/L Potassium, pl 3.9 3.3 - 4.9 mmol/L [facility] Chloride 85(L) 97 - 110 mmol/L [facility] CO2 33(H) 22 - 32 mmol/L [facility] Anion gap 8 2 - 15 mmol/L [facility] BUN 34(H) 6 - 25 mg/dL [facility] Creatinine 1.53(H) 0.80 - 1.30 mg/dL [facility] Glucose 96 70 - 199 mg/dL [facility] Comment: Interpretive Data Fasting glucose >/= 126 mg/dl is diagnostic for diabetes. Fasting is defined as no caloric intake for at least 8 hours. Fasting glucose between 100 mg/dl to 125 mg/dl is diagnostic of prediabetes. In a patient with classic symptoms of hyperglycemia or hyperglycemic crisis, a random glucose >/= 200 mg/dl is diagnostic for diabetes. In the absence of unequivocal hyperglycemia, results should be confirmed by repeat testing. The classification and Diagnosis of Diabetes Diabetes Care 2021; 46: S19-S40. Current interpretive data was last revised 2022. Calcium 8.3(L) 8.5 - 10.3 mg/dL [facility] Blood 10/29/2024 3:45 AM CDT 10/29/2024 4:27 AM CDT Namrata Spencer [employer] LAB BLOOD ORDERABLES Final Result Performing Organization Address [facility]/ZIP Co de Phone Number LAURIE ROSALES [address] [place] [address] * Sodium, urine, random (10/28/2024 12:12 PM CDT) Sodium, ur 21 mmol/L Comment: Interpretive Data No reference range established. Current interpretive data was last revised 2018. Urine (Urine, Clean Catch) 10/28/2024 12:12 PM CDT 10/28/2024 12:26 PM CDT us Ryan Bailey MD LAB URINE ORDERABLES Final Resu lt Performing Organization Address [facility]/ZIP Co de Phone Number LAURIE ROSALES [address] [place] [address] * Potassium, urine, random (10/28/2024 12:12 PM CDT) Potassium conc, ur 11.0 mmol/L Comment: Interpretive Data No reference range established. Current interpretive data was last revised 2018. Urine (Urine, Clean Catch) 10/28/2024 12:12 PM CDT 10/28/2024 12:26 PM CDT us Ryan Bailey MD LAB URINE ORDERABLES Final Resu lt Performing Organization Address [facility] Co de Phone Number BRYNYEE ROSALES [address] [place] [address] * Osmolality, urine (10/28/2024 12:12 PM CDT) Osmo, ur 123 mOsm/kg Comment:Testing performed by : [facility], [address] [facility], [place]., [address] Urine 10/28/2024 12:1 2 PM CDT 10/28/2024 2:34 PM CDT us Ryan Bailey MD LAB URINE ORDERABLES Final Resu lt Performing Organization Address [facility]/ZIP Co de Phone Number BRYNYEE ROSALES [address] [place] [address] * Chloride, urine, random (10/28/2024 12:12 PM CDT) Chloride, ur 22 mmol/L Comment: Interpretive Data No reference range established. Current interpretive data was last revised 2018. Urine (Urine, Clean Catch) 10/28/2024 12:12 PM CDT 10/28/2024 12:26 PM CDT us Ryan Bailey MD LAB URINE ORDERABLES Final Resu lt LAURIE ROSALES [address] [facility] [place] [address] * (ABNORMAL) eGFR (10/28/2024 4:13 AM CDT) eGFR 51(L) >=60 mL/min/1. 73 m2 Comment: Interpretive Data Reference Interval Normal >/= 90 mL/min/1.73m2 Mildly decreased* 60 - 89 mL/min/1.73m2 Mildly to moderately decreased 45 - 59 mL/min/1.73m2 Moderately to severely decreased 30 - 44 mL/min/1.73m2 Severely decreased 15 - 29 mL/min/1.73m2 Kidney Failure < 15 mL/min/1.73m2 *Relative to young adult level Estimated glomerular filtration rate is determined by the 2020 CKD-EPI equation recommended by the National Kidney Foundation (A Unifying Approach to GFR Estimation: Recommendations of the NKF-ASK Task Force on Reassessing the Inclusion of Race in Diagnosing Kidney Disease, JASN 2020). The CKD-EPI equation should not be used for patients with unstable renal function and has not been validated in children and those over 70. Current interpretive data was last reviewed 2021. Blood 10/28/2024 4:13 AM CDT 10/28/2024 4:24 AM CDT us Namrata Spencer NP LAB BLOOD ORDERABLES Final Result [facility] [address] Department [place] [address] * (ABNORMAL) Differential, auto (10/28/2024 4:13 AM CDT) Neutrophil abs 2.25 1.50 - 6.50 K/cumm Imm gran abs 0.01 0.00 - 0.10 K/cumm [facility] Lymphocyte abs 0.54(L) 0.80 - 3.30 K/cumm [facility] Monocyte abs 0.39 0.20 - 0.80 K/cumm [facility] Eosinophil abs 0.08 0.00 - 0.50 K/cumm [facility] Basophil abs 0.01 0.00 - 0.10 K/cumm [facility] Neutrophil pct 68.6 % [facility] Comment: Interpretive Data Percent cell count reference ranges are not reported, since discordance with absolute values may lead to misinterpretation of CBC data. Current Interpretive Data was last revised on 2017. Imm gran pct 0.3 % [facility] Comment: Interpretive Data Percent cell count reference ranges are not reported, since discordance with absolute values may lead to misinterpretation of CBC data. Current Interpretive Data was last revised on 2017. Lymphocyte pct 16.5 % [facility] Comment: Interpretive Data Percent cell count reference ranges are not reported, since discordance with absolute values may lead to misinterpretation of CBC data. Current Interpretive Data was last revised on 2017. Monocyte pct 11.9 % [facility] Comment: Interpretive Data Percent cell count reference ranges are not reported, since discordance with absolute values may lead to misinterpretation of CBC data. Current Interpretive Data was last revised on 2017. Eosinophil pct 2.4 % [facility] Comment: Interpretive Data Percent cell count reference ranges are not reported, since discordance with absolute values may lead to misinterpretation of CBC data. Current Interpretive Data was last revised on 2017. Basophil pct 0.3 % [facility] Comment: Interpretive Data Percent cell count reference ranges are not reported, since discordance with absolute values may lead to misinterpretation of CBC data. Current Interpretive Data was last revised on 2017. Blood 10/28/2024 4:13 AM CDT 10/28/2024 4:26 AM CDT Namrata Spencer NP LAB BLOOD ORDERABLES Final Result LAURIE [address] [place] [address] * (ABNORMAL) CBC with auto differential (10/28/2024 4:13 AM CDT) WBC 3.28(L) 3.80 - 9.90 K/cumm Hgb 12.2(L) 13.0 - 17.5 g/dL [facility] Hct 36.0(L) 38.9 - 50.3 % [facility] Plt 115(L) 150 - 400 K/cumm [facility] MPV 11.9 9.1 - 12.3 fL [facility] RBC 3.95(L) 4.30 - 5.80 M/cumm [facility] MCV 91.1 81.3 - 96.4 fL [facility] MCH 30.9 27.1 - 33.3 pg [facility] MCHC 33.9 32.3 - 35.7 g/dL [facility] CH RDW CV 15.5(H) 11.1 - 14.9 % [facility] CH RDW SD 51.6(H) 35.7 - 48.1 fL [facility] NRBC abs 0.00 0.00 - 0.01 K/cumm [facility] Blood 10/28/2024 4:13 AM CDT 10/28/2024 4:26 AM CDT Namrata Spencer NP LAB BLOOD ORDERABLES Final Result LAURIE [address] [place] [address] * (ABNORMAL) Protime-INR (10/28/2024 4:13 AM CDT) PT 16.8(H) 9.7 - 13.0 sec INR 1.54(H) 0.90 - 1.20 LAURIE ROSALES Comment: Interpretive data Oral anticoagulant therapeutic ranges: Venous thromboembolism prophylaxis or treatment: 2.0-3.0 CARDIOLOGY Standard range: 2.0-3.0 High-intensity range: 2.5-3.5 Refer to indication-specific guidelines for appropriate target ranges for prosthetic heart valve replacement. Current interpretive data was last revised on 2019. Blood 10/28/2024 4:13 AM CDT 10/28/2024 4:25 AM CDT Luan Guillermo DO LAB BLOOD ORDERABLES Fay l Result LAURIE ROSALES [address] [facility] [place] [address] * (ABNORMAL) Osmolality, blood (10/28/2024 4:13 AM CDT) Osmo 273(L) 275 - 300 mOsm/kg Comment:Testing performed by : [facility], [address] [place]., [address] Blood 10/28/2024 4:13 AM CDT 10/28/2024 2:34 PM CDT us Ryan Bailey MD LAB BLOOD ORDERABLES Final Resu lt Performing Organization Address [facility] Co de Phone Number LAURIE ROSALES [address] [place] [address] * Magnesium (10/28/2024 4:13 AM CDT) Magnesium 1.8 1.4 - 2.5 mg/dL Blood 10/28/2024 4:13 AM CDT 10/28/2024 4:24 AM CDT us Ryan Bailey MD LAB BLOOD ORDERABLES Final Resu lt LAURIE ROSALES [address] [place] [address] * (ABNORMAL) Basic metabolic panel (10/28/2024 4:13 AM CDT) Sodium 127(L) 135 - 145 mmol/L Potassium, pl 3.9 3.3 - 4.9 mmol/L [facility] Chloride 88(L) 97 - 110 mmol/L [facility] CO2 37(H) 22 - 32 mmol/L [facility] Anion gap 2 2 - 15 mmol/L [facility] BUN 37(H) 6 - 25 mg/dL [facility] Creatinine 1.36(H) 0.80 - 1.30 mg/dL [facility] Comment:Icteric sample, test results may be affected. Glucose 92 70 - 199 mg/dL [facility] Comment: Interpretive Data Fasting glucose >/= 126 mg/dl is diagnostic for diabetes. Fasting is defined as no caloric intake for at least 8 hours. Fasting glucose between 100 mg/dl to 125 mg/dl is diagnostic of prediabetes. In a patient with classic symptoms of hyperglycemia or hyperglycemic crisis, a random glucose >/= 200 mg/dl is diagnostic for diabetes. In the absence of unequivocal hyperglycemia, results should be confirmed by repeat testing. The classification and Diagnosis of Diabetes Diabetes Care 2021; 46: S19-S40. Current interpretive data was last revised 2022. Calcium 8.4(L) 8.5 - 10.3 mg/dL [facility] Blood 10/28/2024 4:13 AM CDT 10/28/2024 4:24 AM CDT Namrata Spencer NP LAB BLOOD ORDERABLES Final Result LAURIE [address] Department [place] [address] * XR Chest 1 View (10/27/2024 11:28 AM CDT) Anatomical Region Laterality Modality Body, Chest N/A Computed Radiogr aphy 10/27/2024 12:5 7 PM CDT Impressions 10/27/2024 12:57 PM CDT Cardiomegaly with pulmonary vascular congestion. Electronically signed by: Coco Youngblood M.D. Narrative 10/27/2024 12:57 PM CDT EXAMINATION: XR CHEST 1 VIEW HISTORY: The patient is an 84-year-old male who presents with shortness of breath. Comparison made with the previous study dated 10/26/2024. TECHNIQUE: AP portable view of the chest. FINDINGS: Cardiomegaly with aortic atherosclerosis. Findings of pulmonary vascular congestion. No focal consolidation. Procedure Note Coco Youngblood MD - 10/27/2024 EXAMINATION: XR CHEST 1 VIEW HISTORY: The patient is an 84-year-old male who presents with shortness of breath. Comparison made with the previous study dated 10/26/2024. TECHNIQUE: AP portable view of the chest. FINDINGS: Cardiomegaly with aortic atherosclerosis. Findings of pulmonary vascular congestion. No focal consolidation. IMPRESSION: Cardiomegaly with pulmonary vascular congestion. Electronically signed by: Coco Youngblood M.D. us Ryan Bailey MD IMG XR PROCEDURES Final Result * (ABNORMAL) eGFR (10/27/2024 6:26 AM CDT) eGFR 50(L) >=60 mL/min/1. 73 m2 Comment: Interpretive Data Reference Interval Normal >/= 90 mL/min/1.73m2 Mildly decreased* 60 - 89 mL/min/1.73m2 Mildly to moderately decreased 45 - 59 mL/min/1.73m2 Moderately to severely decreased 30 - 44 mL/min/1.73m2 Severely decreased 15 - 29 mL/min/1.73m2 Kidney Failure < 15 mL/min/1.73m2 *Relative to young adult level Estimated glomerular filtration rate is determined by the 2020 CKD-EPI equation recommended by the National Kidney Foundation (A Unifying Approach to GFR Estimation: Recommendations of the NKF-ASK Task Force on Reassessing the Inclusion of Race in Diagnosing Kidney Disease, JASN 2020). The CKD-EPI equation should not be used for patients with unstable renal function and has not been validated in children and those over 70. Current interpretive data was last reviewed 2021. Blood 10/27/2024 6:26 AM CDT 10/27/2024 6:47 AM CDT Namrata Spencer NP LAB BLOOD ORDERABLES Final Result LAURIE [address] Department [place] [address] * (ABNORMAL) Differential, auto (10/27/2024 6:26 AM CDT) Neutrophil abs 2.10 1.50 - 6.50 K/cumm Imm gran abs 0.00 0.00 - 0.10 K/cumm [facility] Lymphocyte abs 0.55(L) 0.80 - 3.30 K/cumm [facility] Monocyte abs 0.35 0.20 - 0.80 K/cumm [facility] Eosinophil abs 0.09 0.00 - 0.50 K/cumm [facility] Basophil abs 0.02 0.00 - 0.10 K/cumm [facility] Neutrophil pct 67.5 % [facility] Comment: Interpretive Data Percent cell count reference ranges are not reported, since discordance with absolute values may lead to misinterpretation of CBC data. Current Interpretive Data was last revised on 2017. Imm gran pct 0.0 % [facility] Comment: Interpretive Data Percent cell count reference ranges are not reported, since discordance with absolute values may lead to misinterpretation of CBC data. Current Interpretive Data was last revised on 2017. Lymphocyte pct 17.7 % [facility] Comment: Interpretive Data Percent cell count reference ranges are not reported, since discordance with absolute values may lead to misinterpretation of CBC data. Current Interpretive Data was last revised on 2017. Monocyte pct 11.3 % [facility] Comment: Interpretive Data Percent cell count reference ranges are not reported, since discordance with absolute values may lead to misinterpretation of CBC data. Current Interpretive Data was last revised on 2017. Eosinophil pct 2.9 % [facility] Comment: Interpretive Data Percent cell count reference ranges are not reported, since discordance with absolute values may lead to misinterpretation of CBC data. Current Interpretive Data was last revised on 2017. Basophil pct 0.6 % [facility] Comment: Interpretive Data Percent cell count reference ranges are not reported, since discordance with absolute values may lead to misinterpretation of CBC data. Current Interpretive Data was last revised on 2017. Blood 10/27/2024 6:26 AM CDT 10/27/2024 6:47 AM CDT Namrata Spencer NP LAB BLOOD ORDERABLES Final Result LAURIE [address] [place] [address] * (ABNORMAL) CBC with auto differential (10/27/2024 6:26 AM CDT) WBC 3.11(L) 3.80 - 9.90 K/cumm Hgb 12.1(L) 13.0 - 17.5 g/dL [facility] Hct 36.1(L) 38.9 - 50.3 % [facility] Plt 99(L) 150 - 400 K/cumm [facility] MPV 12.3 9.1 - 12.3 fL [facility] RBC 3.92(L) 4.30 - 5.80 M/cumm [facility] MCV 92.1 81.3 - 96.4 fL [facility] MCH 30.9 27.1 - 33.3 pg [facility] MCHC 33.5 32.3 - 35.7 g/dL [facility] RDW CV 16.0(H) 11.1 - 14.9 % [facility] RDW SD 53.5(H) 35.7 - 48.1 fL [facility] NRBC abs 0.00 0.00 - 0.01 K/cumm [facility] Blood 10/27/2024 6:26 AM CDT 10/27/2024 6:47 AM CDT Namrata Spencer NP LAB BLOOD ORDERABLES Final Result Performing Organization Address City/[facility]/ZIP Co de Phone Number LAURIE ROSALES [id number] Department [place] [address] * (ABNORMAL) Protime-INR (10/27/2024 6:26 AM CDT) PT 16.2(H) 9.7 - 13.0 sec INR 1.49(H) 0.90 - 1.20 [facility] Comment: Interpretive data Oral anticoagulant therapeutic ranges: Venous thromboembolism prophylaxis or treatment: 2.0-3.0 CARDIOLOGY Standard range: 2.0-3.0 High-intensity range: 2.5-3.5 Refer to indication-specific guidelines for appropriate target ranges for prosthetic heart valve replacement. Current interpretive data was last revised on 2019. Blood 10/27/2024 6:26 AM CDT 10/27/2024 6:46 AM CDT Luan Guillermo DO LAB BLOOD ORDERABLES Fay l Result [facility] [address] Department [place] [address] * (ABNORMAL) Basic metabolic panel (10/27/2024 6:26 AM CDT) Sodium 127(L) 135 - 145 mmol/L Potassium, pl 3.6 3.3 - 4.9 mmol/L [facility] Chloride 87(L) 97 - 110 mmol/L [facility] CO2 36(H) 22 - 32 mmol/L [facility] Anion gap 4 2 - 15 mmol/L [facility] BUN 37(H) 6 - 25 mg/dL [facility] Creatinine 1.40(H) 0.80 - 1.30 mg/dL [facility] Glucose 95 70 - 199 mg/dL [facility] Comment: Interpretive Data Fasting glucose >/= 126 mg/dl is diagnostic for diabetes. Fasting is defined as no caloric intake for at least 8 hours. Fasting glucose between 100 mg/dl to 125 mg/dl is diagnostic of prediabetes. In a patient with classic symptoms of hyperglycemia or hyperglycemic crisis, a random glucose >/= 200 mg/dl is diagnostic for diabetes. In the absence of unequivocal hyperglycemia, results should be confirmed by repeat testing. The classification and Diagnosis of Diabetes Diabetes Care 2021; 46: S19-S40. Current interpretive data was last revised 2022. Calcium 8.3(L) 8.5 - 10.3 mg/dL LAURIE ROSALES Blood 10/27/2024 6:26 AM CDT 10/27/2024 6:47 AM CDT Namrata Spencer NP LAB BLOOD ORDERABLES Final Result LAURIE ROSALES [id number] Department [place] [address] * XR Chest 1 View (10/26/2024 11:06 AM CDT) Anatomical Region Laterality Modality Body, Chest N/A Computed Radiogr aphy 10/26/2024 11:0 9 AM CDT Impressions 10/26/2024 11:09 AM CDT Cardiomegaly with pulmonary vascular congestion. Electronically signed by: Coco Youngblood M.D. Narrative 10/26/2024 11:09 AM CDT EXAMINATION: XR CHEST 1 VIEW HISTORY: The patient is a 84-year-old male who presents with shortness of breath. Comparison made with the previous study dated 10/24/2024. TECHNIQUE: AP portable view of the chest. FINDINGS: Cardiomegaly with aortic atherosclerosis. Findings of pulmonary vascular congestion. No focal infiltrate seen. Procedure Note Coco Youngblood MD - 10/26/2024 EXAMINATION: XR CHEST 1 VIEW HISTORY: The patient is a 84-year-old male who presents with shortness of breath. Comparison made with the previous study dated 10/24/2024. TECHNIQUE: AP portable view of the chest. FINDINGS: Cardiomegaly with aortic atherosclerosis. Findings of pulmonary vascular congestion. No focal infiltrate seen. IMPRESSION: Cardiomegaly with pulmonary vascular congestion. Electronically signed by: Coco Youngblood M.D. Nitesh Phillips [employer] IMG XR PROCEDURES Final R esult * (ABNORMAL) eGFR (10/26/2024 6:28 AM CDT) Pathologist [facility] eGFR 41(L) >=60 mL/min/1. 73 m2 Comment: Interpretive Data Reference Interval Normal >/= 90 mL/min/1.73m2 Mildly decreased* 60 - 89 mL/min/1.73m2 Mildly to moderately decreased 45 - 59 mL/min/1.73m2 Moderately to severely decreased 30 - 44 mL/min/1.73m2 Severely decreased 15 - 29 mL/min/1.73m2 Kidney Failure < 15 mL/min/1.73m2 *Relative to young adult level Estimated glomerular filtration rate is determined by the 2020 CKD-EPI equation recommended by the National Kidney Foundation (A Unifying Approach to GFR Estimation: Recommendations of the NKF-ASK Task Force on Reassessing the Inclusion of Race in Diagnosing Kidney Disease, JASN 2020). The CKD-EPI equation should not be used for patients with unstable renal function and has not been validated in children and those over 70. Current interpretive data was last reviewed 2021. Blood 10/26/2024 6:28 AM CDT 10/26/2024 6:44 AM CDT Namrata Spencer NP LAB BLOOD ORDERABLES Final Result LAURIE [address] Department [place] [address] * (ABNORMAL) Differential, auto (10/26/2024 6:28 AM CDT) Pathologist [facility] Neutrophil abs 2.38 1.50 - 6.50 K/cumm Imm gran abs 0.01 0.00 - 0.10 K/cumm [facility] Lymphocyte abs 0.60(L) 0.80 - 3.30 K/cumm [facility] Monocyte abs 0.41 0.20 - 0.80 K/cumm [facility] Eosinophil abs 0.10 0.00 - 0.50 K/cumm [facility] Basophil abs 0.02 0.00 - 0.10 K/cumm [facility] Neutrophil pct 67.7 % [facility] Comment: Interpretive Data Percent cell count reference ranges are not reported, since discordance with absolute values may lead to misinterpretation of CBC data. Current Interpretive Data was last revised on 2017. Imm gran pct 0.3 % [facility] Comment: Interpretive Data Percent cell count reference ranges are not reported, since discordance with absolute values may lead to misinterpretation of CBC data. Current Interpretive Data was last revised on 2017. Lymphocyte pct 17.0 % [facility] Comment: Interpretive Data Percent cell count reference ranges are not reported, since discordance with absolute values may lead to misinterpretation of CBC data. Current Interpretive Data was last revised on 2017. Monocyte pct 11.6 % [facility] Comment: Interpretive Data Percent cell count reference ranges are not reported, since discordance with absolute values may lead to misinterpretation of CBC data. Current Interpretive Data was last revised on 2017. Eosinophil pct 2.8 % [facility] Comment: Interpretive Data Percent cell count reference ranges are not reported, since discordance with absolute values may lead to misinterpretation of CBC data. Current Interpretive Data was last revised on 2017. Basophil pct 0.6 % [facility] Comment: Interpretive Data Percent cell count reference ranges are not reported, since discordance with absolute values may lead to misinterpretation of CBC data. Current Interpretive Data was last revised on 2017. Blood 10/26/2024 6:28 AM CDT 10/26/2024 6:44 AM CDT Namrata Spencer NP LAB BLOOD ORDERABLES Final Result LAURIE [address] Department of Laboratories [place], [place] [id number] * (ABNORMAL) Thyroid Function [place] (10/26/2024 6:28 AM CDT) TSH 6.60(H) 0.30 - 4.20 mcIUnit/mL Blood 10/26/2024 6:28 AM CDT 10/26/2024 6:44 AM CDT us Donte Camacho MD LAB BLOOD ORDERABLES Final Result LAURIE ROSALES [address] Department [place] [address] * (ABNORMAL) CBC with auto differential (10/26/2024 6:28 AM CDT) WBC 3.52(L) 3.80 - 9.90 K/cumm Hgb 12.0(L) 13.0 - 17.5 g/dL [facility] Hct 35.9(L) 38.9 - 50.3 % [facility] Plt 94(L) 150 - 400 K/cumm [facility] MPV 11.3 9.1 - 12.3 fL [facility] RBC 3.91(L) 4.30 - 5.80 M/cumm [facility] MCV 91.8 81.3 - 96.4 fL [facility] MCH 30.7 27.1 - 33.3 pg [facility] MCHC 33.4 32.3 - 35.7 g/dL [facility] RDW CV 16.2(H) 11.1 - 14.9 % [facility] RDW SD 54.3(H) 35.7 - 48.1 fL [facility] NRBC abs 0.00 0.00 - 0.01 K/cumm [facility] Blood 10/26/2024 6:28 AM CDT 10/26/2024 6:44 AM CDT Namrata Spencer NP LAB BLOOD ORDERABLES Final Result LAURIE ROSALES [address] [place] [address] * (ABNORMAL) Protime-INR (10/26/2024 6:28 AM CDT) PT 16.9(H) 9.7 - 13.0 sec INR 1.55(H) 0.90 - 1.20 [facility] Comment: Interpretive data Oral anticoagulant therapeutic ranges: Venous thromboembolism prophylaxis or treatment: 2.0-3.0 CARDIOLOGY Standard range: 2.0-3.0 High-intensity range: 2.5-3.5 Refer to indication-specific guidelines for appropriate target ranges for prosthetic heart valve replacement. Current interpretive data was last revised on 2019. Blood 10/26/2024 6:28 AM CDT 10/26/2024 6:44 AM CDT Luan Guillermo DO LAB BLOOD ORDERABLES Fay l Result Performing Organization Address [facility] Co de Phone Number LAURIE [address] Department [facility] [place], [place] [id number] * T4, free (10/26/2024 6:28 AM CDT) Free T4 1.43 0.90 - 1.70 ng/dL Blood 10/26/2024 6:28 AM CDT 10/26/2024 6:44 AM CDT Donte Camacho MD LAB BLOOD ORDERABLES Final Result Performing Organization Address [facility] Phone Number [facility] [address] [facility] [place], [place] [id number] * Cortisol (10/26/2024 6:28 AM CDT) Cortisol 15.8 4.8 - 19.5 mcg/dl Comment: Interpretive Data Normal Range: 4.8 - 19.5 mcg/dL; Evening: Half of morning value. This analyte undergoes marked diurnal variation. Ranges indicated apply to morning specimens. Current interpretive data was last revised 2018. Blood 10/26/2024 6:28 AM CDT 10/26/2024 6:44 AM CDT Donte Camacho MD LAB BLOOD ORDERABLES Final Result Performing Organization Address [facility] de Phone Number [facility] [address] [place] [address] * (ABNORMAL) Basic metabolic panel (10/26/2024 6:28 AM CDT) Sodium 129(L) 135 - 145 mmol/L Potassium, pl 3.9 3.3 - 4.9 mmol/L [facility] Chloride 89(L) 97 - 110 mmol/L [facility] CO2 33(H) 22 - 32 mmol/L [facility] Anion gap 7 2 - 15 mmol/L [facility] BUN 43(H) 6 - 25 mg/dL [facility] Creatinine 1.65(H) 0.80 - 1.30 mg/dL [facility] Glucose 94 70 - 199 mg/dL [facility] Comment: Interpretive Data Fasting glucose >/= 126 mg/dl is diagnostic for diabetes. Fasting is defined as no caloric intake for at least 8 hours. Fasting glucose between 100 mg/dl to 125 mg/dl is diagnostic of prediabetes. In a patient with classic symptoms of hyperglycemia or hyperglycemic crisis, a random glucose >/= 200 mg/dl is diagnostic for diabetes. In the absence of unequivocal hyperglycemia, results should be confirmed by repeat testing. The classification and Diagnosis of Diabetes Diabetes Care 2021; 46: S19-S40. Current interpretive data was last revised 2022. Calcium 8.5 8.5 - 10.3 mg/dL [facility] Blood 10/26/2024 6:28 AM CDT 10/26/2024 6:44 AM CDT Namrata Spencer NP LAB BLOOD ORDERABLES Final Result LAURIE [address] Department [place] [address] * (ABNORMAL) eGFR (10/25/2024 6:58 AM CDT) eGFR 39(L) >=60 mL/min/1. 73 m2 Comment: Interpretive Data Reference Interval Normal >/= 90 mL/min/1.73m2 Mildly decreased* 60 - 89 mL/min/1.73m2 Mildly to moderately decreased 45 - 59 mL/min/1.73m2 Moderately to severely decreased 30 - 44 mL/min/1.73m2 Severely decreased 15 - 29 mL/min/1.73m2 Kidney Failure < 15 mL/min/1.73m2 *Relative to young adult level Estimated glomerular filtration rate is determined by the 2020 CKD-EPI equation recommended by the National Kidney Foundation (A Unifying Approach to GFR Estimation: Recommendations of the NKF-ASK Task Force on Reassessing the Inclusion of Race in Diagnosing Kidney Disease, JASN 202). The CKD-EPI equation should not be used for patients with unstable renal function and has not been validated in children and those over 70. Current interpretive data was last reviewed 2021. Blood 10/25/2024 6:58 AM CDT 10/25/2024 7:21 AM CDT Namrata Spencer NP LAB BLOOD ORDERABLES Final Result [facility] [address] Department [place] [address] * (ABNORMAL) Differential, auto (10/25/2024 6:58 AM CDT) Neutrophil abs 2.57 1.50 - 6.50 K/cumm Imm gran abs 0.01 0.00 - 0.10 K/cumm [facility] Lymphocyte abs 0.46(L) 0.80 - 3.30 K/cumm [facility] Monocyte abs 0.39 0.20 - 0.80 K/cumm [facility] Eosinophil abs 0.09 0.00 - 0.50 K/cumm [facility] Basophil abs 0.02 0.00 - 0.10 K/cumm [facility] Neutrophil pct 72.6 % [facility] Comment: Interpretive Data Percent cell count reference ranges are not reported, since discordance with absolute values may lead to misinterpretation of CBC data. Current Interpretive Data was last revised on 2017. Imm gran pct 0.3 % [facility] Comment: Interpretive Data Percent cell count reference ranges are not reported, since discordance with absolute values may lead to misinterpretation of CBC data. Current Interpretive Data was last revised on 2017. Lymphocyte pct 13.0 % [facility] Comment: Interpretive Data Percent cell count reference ranges are not reported, since discordance with absolute values may lead to misinterpretation of CBC data. Current Interpretive Data was last revised on 2017. Monocyte pct 11.0 % [facility] Comment: Interpretive Data Percent cell count reference ranges are not reported, since discordance with absolute values may lead to misinterpretation of CBC data. Current Interpretive Data was last revised on 2017. Eosinophil pct 2.5 % [facility] Comment: Interpretive Data Percent cell count reference ranges are not reported, since discordance with absolute values may lead to misinterpretation of CBC data. Current Interpretive Data was last revised on 2017. Basophil pct 0.6 % [facility] Comment: Interpretive Data Percent cell count reference ranges are not reported, since discordance with absolute values may lead to misinterpretation of CBC data. Current Interpretive Data was last revised on 2017. Blood 10/25/2024 6:58 AM CDT 10/25/2024 7:21 AM CDT Namrata Spencer NP LAB BLOOD ORDERABLES Final Result [facility] [address] Department of Laboratories [place], [place] [id number] * (ABNORMAL) CBC with auto differential (10/25/2024 6:58 AM CDT) WBC 3.54(L) 3.80 - 9.90 K/cumm Hgb 12.9(L) 13.0 - 17.5 g/dL [facility] Hct 38.5(L) 38.9 - 50.3 % [facility] Plt 91(L) 150 - 400 K/cumm [facility] MPV 11.6 9.1 - 12.3 fL [facility] [facility] RBC 4.15(L) 4.30 - 5.80 M/cumm [facility] MCV 92.8 81.3 - 96.4 fL [facility] MCH 31.1 27.1 - 33.3 pg [facility] MCHC 33.5 32.3 - 35.7 g/dL [facility] RDW CV 16.2(H) 11.1 - 14.9 % [facility] RDW SD 54.5(H) 35.7 - 48.1 fL [facility] NRBC abs 0.00 0.00 - 0.01 K/cumm [facility] Blood 10/25/2024 6:58 AM CDT 10/25/2024 7:21 AM CDT Namrata Spencer GUIDE DOG MOBILITY INSTRUCTOR LAB BLOOD ORDERABLES Final Result Performing Organization Address City/[facility]/ZIP Co de Phone Number [facility] [id number] Department [place] [address] * (ABNORMAL) Protime-INR (10/25/2024 6:58 AM CDT) PT 18.0(H) 9.7 - 13.0 sec INR 1.65(H) 0.90 - 1.20 [facility] Comment: Interpretive data Oral anticoagulant therapeutic ranges: Venous thromboembolism prophylaxis or treatment: 2.0-3.0 CARDIOLOGY Standard range: 2.0-3.0 High-intensity range: 2.5-3.5 Refer to indication-specific guidelines for appropriate target ranges for prosthetic heart valve replacement. Current interpretive data was last revised on 2019. Blood 10/25/2024 6:58 AM CDT 10/25/2024 7:20 AM CDT Luan Guillermo DO LAB BLOOD ORDERABLES Fay l Result Performing Organization Address City/[facility]/ZIP Co de Phone Number [facility] [id number] Department of Laboratories [place], [place] [id number] * (ABNORMAL) Basic metabolic panel (10/25/2024 6:58 AM CDT) Sodium 134(L) 135 - 145 mmol/L Potassium, pl 3.8 3.3 - 4.9 mmol/L [facility] Chloride 93(L) 97 - 110 mmol/L [facility] CO2 34(H) 22 - 32 mmol/L [facility] Anion gap 7 2 - 15 mmol/L [facility] BUN 46(H) 6 - 25 mg/dL [facility] Creatinine 1.70(H) 0.80 - 1.30 mg/dL [facility] Glucose 102 70 - 199 mg/dL [facility] Comment: Interpretive Data Fasting glucose >/= 126 mg/dl is diagnostic for diabetes. Fasting is defined as no caloric intake for at least 8 hours. Fasting glucose between 100 mg/dl to 125 mg/dl is diagnostic of prediabetes. In a patient with classic symptoms of hyperglycemia or hyperglycemic crisis, a random glucose >/= 200 mg/dl is diagnostic for diabetes. In the absence of unequivocal hyperglycemia, results should be confirmed by repeat testing. The classification and Diagnosis of Diabetes Diabetes Care 2021; 46: S19-S40. Current interpretive data was last revised 2022. Calcium 8.6 8.5 - 10.3 mg/dL [facility] Blood 10/25/2024 6:58 AM CDT 10/25/2024 7:21 AM CDT Namrata Spencer NP LAB BLOOD ORDERABLES Final Result [facility] [address] Department [place] [address] * XR Chest 1 Vw Portable (10/24/2024 1:49 PM CDT) Anatomical Region Laterality Modality Body, Chest N/A Computed Radiogr aphy 10/24/2024 2:36 PM CDT Impressions 10/24/2024 2:36 PM CDT Findings as described above. Electronically signed by: Coco Youngblood M.D. Narrative 10/24/2024 2:36 PM CDT EXAMINATION: XR CHEST 1 VIEW HISTORY: The patient is an 84-year-old male who presents with hypoxia. Comparison made with the previous study dated 10/23/2024. TECHNIQUE: AP portable view of the chest. FINDINGS: Cardiomegaly with aortic atherosclerosis. Findings of pulmonary vascular congestion. Right lower lobe infiltrate with the remainder of the lungs being clear. Procedure Note Coco Youngblood MD - 10/24/2024 EXAMINATION: XR CHEST 1 VIEW HISTORY: The patient is an 84-year-old male who presents with hypoxia. Comparison made with the previous study dated 10/23/2024. TECHNIQUE: AP portable view of the chest. FINDINGS: Cardiomegaly with aortic atherosclerosis. Findings of pulmonary vascular congestion. Right lower lobe infiltrate with the remainder of the lungs being clear. IMPRESSION: Findings as described above. Electronically signed by: Coco Youngblood M.D. Luan Guillermo DO IMG XR PROCEDURES Final R esult * (ABNORMAL) eGFR (10/24/2024 4:15 AM CDT) eGFR 34(L) >=60 mL/min/1. 73 m2 Comment: Interpretive Data Reference Interval Normal >/= 90 mL/min/1.73m2 Mildly decreased* 60 - 89 mL/min/1.73m2 Mildly to moderately decreased 45 - 59 mL/min/1.73m2 Moderately to severely decreased 30 - 44 mL/min/1.73m2 Severely decreased 15 - 29 mL/min/1.73m2 Kidney Failure < 15 mL/min/1.73m2 *Relative to young adult level Estimated glomerular filtration rate is determined by the 2020 CKD-EPI equation recommended by the National Kidney Foundation (A Unifying Approach to GFR Estimation: Recommendations of the NKF-ASK Task Force on Reassessing the Inclusion of Race in Diagnosing Kidney Disease, JASN 202). The CKD-EPI equation should not be used for patients with unstable renal function and has not been validated in children and those over 70. Current interpretive data was last reviewed 2021. Blood 10/24/2024 4:15 AM CDT 10/24/2024 4:38 AM CDT Namrata Spencer NP LAB BLOOD ORDERABLES Final Result [facility] [address] Department [place] [address] * (ABNORMAL) Differential, auto (10/24/2024 4:15 AM CDT) Neutrophil abs 2.69 1.50 - 6.50 K/cumm Imm gran abs 0.01 0.00 - 0.10 K/cumm [facility] Lymphocyte abs 0.56(L) 0.80 - 3.30 K/cumm [facility] Monocyte abs 0.42 0.20 - 0.80 K/cumm [facility] Eosinophil abs 0.11 0.00 - 0.50 K/cumm [facility] Basophil abs 0.02 0.00 - 0.10 K/cumm [facility] Neutrophil pct 70.6 % [facility] Comment: Interpretive Data Percent cell count reference ranges are not reported, since discordance with absolute values may lead to misinterpretation of CBC data. Current Interpretive Data was last revised on 2017. Imm gran pct 0.3 % [facility] Comment: Interpretive Data Percent cell count reference ranges are not reported, since discordance with absolute values may lead to misinterpretation of CBC data. Current Interpretive Data was last revised on 2017. Lymphocyte pct 14.7 % [facility] Comment: Interpretive Data Percent cell count reference ranges are not reported, since discordance with absolute values may lead to misinterpretation of CBC data. Current Interpretive Data was last revised on 2017. Monocyte pct 11.0 % [facility] Comment: Interpretive Data Percent cell count reference ranges are not reported, since discordance with absolute values may lead to misinterpretation of CBC data. Current Interpretive Data was last revised on 2017. Eosinophil pct 2.9 % [facility] Comment: Interpretive Data Percent cell count reference ranges are not reported, since discordance with absolute values may lead to misinterpretation of CBC data. Current Interpretive Data was last revised on 2017. Basophil pct 0.5 % [facility] Comment: Interpretive Data Percent cell count reference ranges are not reported, since discordance with absolute values may lead to misinterpretation of CBC data. Current Interpretive Data was last revised on 2017. Blood 10/24/2024 4:15 AM CDT 10/24/2024 4:39 AM CDT Namrata Spencer NP LAB BLOOD ORDERABLES Final Result Performing Organization Address City/State/[facility] Co de Phone Number [facility] ROSALES [id number] Department of Laboratories [place], [place] [id number] * (ABNORMAL) CBC with auto differential (10/24/2024 4:15 AM CDT) Pathologist [facility] WBC 3.81 3.80 - 9.90 K/cumm Hgb 12.8(L) 13.0 - 17.5 g/dL [facility] Hct 38.2(L) 38.9 - 50.3 % [facility] Plt 81(L) 150 - 400 K/cumm [facility] MPV 12.3 9.1 - 12.3 fL [facility] RBC 4.08(L) 4.30 - 5.80 M/cumm [facility] MCV 93.6 81.3 - 96.4 fL [facility] MCH 31.4 27.1 - 33.3 pg [facility] MCHC 33.5 32.3 - 35.7 g/dL [facility] RDW CV 16.3(H) 11.1 - 14.9 % [facility] RDW SD 55.5(H) 35.7 - 48.1 fL [facility] NRBC abs 0.00 0.00 - 0.01 K/cumm [facility] Blood 10/24/2024 4:15 AM CDT 10/24/2024 4:39 AM CDT Namrata Spencer NP LAB BLOOD ORDERABLES Final Result Performing Organization Address [facility]/ZIP Co de Phone Number [facility]URIE ROSALES [address] [place] [address] * (ABNORMAL) Protime-INR (10/24/2024 4:15 AM CDT) Pathologist [facility] PT 20.5(H) 9.7 - 13.0 sec INR 1.87(H) 0.90 - 1.20 [facility] Comment: Interpretive data Oral anticoagulant therapeutic ranges: Venous thromboembolism prophylaxis or treatment: 2.0-3.0 CARDIOLOGY Standard range: 2.0-3.0 High-intensity range: 2.5-3.5 Refer to indication-specific guidelines for appropriate target ranges for prosthetic heart valve replacement. Current interpretive data was last revised on 2019. Blood 10/24/2024 4:15 AM CDT 10/24/2024 4:39 AM CDT Luan Guillermo DO LAB BLOOD ORDERABLES Fay l Result Performing Organization Address City/[facility] Co ar Phone Number [facility] [address] Department [place] [address] * (ABNORMAL) Basic metabolic panel (10/24/2024 4:15 AM CDT) Sodium 132(L) 135 - 145 mmol/L Potassium, pl 4.2 3.3 - 4.9 mmol/L [facility] Chloride 91(L) 97 - 110 mmol/L [facility] CO2 32 22 - 32 mmol/L [facility] Anion gap 9 2 - 15 mmol/L [facility] BUN 46(H) 6 - 25 mg/dL [facility] Creatinine 1.90(H) 0.80 - 1.30 mg/dL [facility] Comment:Icteric sample, test results may be affected. Glucose 96 70 - 199 mg/dL [facility] Comment: Interpretive Data Fasting glucose >/= 126 mg/dl is diagnostic for diabetes. Fasting is defined as no caloric intake for at least 8 hours. Fasting glucose between 100 mg/dl to 125 mg/dl is diagnostic of prediabetes. In a patient with classic symptoms of hyperglycemia or hyperglycemic crisis, a random glucose >/= 200 mg/dl is diagnostic for diabetes. In the absence of unequivocal hyperglycemia, results should be confirmed by repeat testing. The classification and Diagnosis of Diabetes Diabetes Care 202; 46: S19-S40. Current interpretive data was last revised 2022. Calcium 8.4(L) 8.5 - 10.3 mg/dL [facility] Blood 10/24/2024 4:15 AM CDT 10/24/2024 4:38 AM CDT Namrata Spencer GUIDE DOG MOBILITY INSTRUCTOR LAB [place] [address] [address] Department [place] [address] * XR Chest 1 Vw Portable (10/23/2024 7:31 AM CDT) Anatomical Region Laterality Modality Body, Chest N/A Computed Radiogr aphy 10/23/2024 9:42 AM CDT Impressions 10/23/2024 9:42 AM CDT Persistent right effusion with patchy right lower lobe consolidation. Electronically signed by: Perla Cowrat M.D. Narrative 10/23/2024 9:42 AM CDT Examination: XR CHEST 1 VIEW Date: 10/23/2024 7:20 AM History: effusion Comparison: 10/18/2024. Findings: Normal heart size, sternotomy and left AICD is again seen. A small right effusion and moderate right lower lobe infiltrate with patchy consolidation is unchanged. Procedure Note Perla Cowart MD - 10/23/2024 Examination: XR CHEST 1 VIEW Date: 10/23/2024 7:20 AM History: effusion Comparison: 10/18/2024. Findings: Normal heart size, sternotomy and left AICD is again seen. A small right effusion and moderate right lower lobe infiltrate with patchy consolidation is unchanged. IMPRESSION: Persistent right effusion with patchy right lower lobe consolidation. Electronically signed by: Perla Cowart M.D. Shailesh Pabon MD IMG XR PROCEDURES Fay l Result * (ABNORMAL) eGFR (10/23/2024 3:35 AM CDT) eGFR 39(L) >=60 mL/min/1. 73 m2 Comment: Interpretive Data Reference Interval Normal >/= 90 mL/min/1.73m2 Mildly decreased* 60 - 89 mL/min/1.73m2 Mildly to moderately decreased 45 - 59 mL/min/1.73m2 Moderately to severely decreased 30 - 44 mL/min/1.73m2 Severely decreased 15 - 29 mL/min/1.73m2 Kidney Failure < 15 mL/min/1.73m2 *Relative to young adult level Estimated glomerular filtration rate is determined by the 2020 CKD-EPI equation recommended by the National Kidney Foundation (A Unifying Approach to GFR Estimation: Recommendations of the NKF-ASK Task Force on Reassessing the Inclusion of Race in Diagnosing Kidney Disease, JASN 2020). The CKD-EPI equation should not be used for patients with unstable renal function and has not been validated in children and those over 70. Current interpretive data was last reviewed 2021. Blood 10/23/2024 3:35 AM CDT 10/23/2024 3:52 AM CDT Namrata Spencer NP LAB BLOOD ORDERABLES Final Result [facility] [address] Department [place] [address] * (ABNORMAL) Differential, auto (10/23/2024 3:35 AM CDT) Neutrophil abs 4.54 1.50 - 6.50 K/cumm Imm gran abs 0.02 0.00 - 0.10 K/cumm [facility] Lymphocyte abs 0.51(L) 0.80 - 3.30 K/cumm [facility] Monocyte abs 0.66 0.20 - 0.80 K/cumm [facility] Eosinophil abs 0.08 0.00 - 0.50 K/cumm [facility] Basophil abs 0.01 0.00 - 0.10 K/cumm [facility] Neutrophil pct 78.0 % [facility] Comment: Interpretive Data Percent cell count reference ranges are not reported, since discordance with absolute values may lead to misinterpretation of CBC data. Current Interpretive Data was last revised on 2017. Imm gran pct 0.3 % [facility] Comment: Interpretive Data Percent cell count reference ranges are not reported, since discordance with absolute values may lead to misinterpretation of CBC data. Current Interpretive Data was last revised on 2017. Lymphocyte pct 8.8 % [facility] Comment: Interpretive Data Percent cell count reference ranges are not reported, since discordance with absolute values may lead to misinterpretation of CBC data. Current Interpretive Data was last revised on 2017. Monocyte pct 11.3 % [facility] Comment: Interpretive Data Percent cell count reference ranges are not reported, since discordance with absolute values may lead to misinterpretation of CBC data. Current Interpretive Data was last revised on 2017. Eosinophil pct 1.4 % [facility] Comment: Interpretive Data Percent cell count reference ranges are not reported, since discordance with absolute values may lead to misinterpretation of CBC data. Current Interpretive Data was last revised on 2017. Basophil pct 0.2 % [facility] Comment: Interpretive Data Percent cell count reference ranges are not reported, since discordance with absolute values may lead to misinterpretation of CBC data. Current Interpretive Data was last revised on 2017. Blood 10/23/2024 3:35 AM CDT 10/23/2024 3:52 AM CDT Namrata Spencer NP LAB BLOOD ORDERABLES Final Result [facility] [address] Department of Laboratories [place], [place] [id number] * (ABNORMAL) CBC with auto differential (10/23/2024 3:35 AM CDT) WBC 5.82 3.80 - 9.90 K/cumm Hgb 13.8 13.0 - 17.5 g/dL [facility] Hct 41.6 38.9 - 50.3 % [facility] Plt 87(L) 150 - 400 K/cumm [facility] MPV 11.7 9.1 - 12.3 fL [facility] RBC 4.44 4.30 - 5.80 M/cumm [facility] MCV 93.7 81.3 - 96.4 fL [facility] MCH 31.1 27.1 - 33.3 pg [facility] MCHC 33.2 32.3 - 35.7 g/dL [facility] RDW CV 16.7(H) 11.1 - 14.9 % [facility] RDW SD 56.9(H) 35.7 - 48.1 fL [facility] NRBC abs 0.00 0.00 - 0.01 K/cumm [facility] Blood 10/23/2024 3:35 AM CDT 10/23/2024 3:52 AM CDT Namrata Spencer GUIDE DOG MOBILITY INSTRUCTOR LAB BLOOD ORDERABLES Final Result [facility] [address] Department [place] [address] * (ABNORMAL) Protime-INR (10/23/2024 3:35 AM CDT) PT 30.3(H) 9.7 - 13.0 sec INR 2.75(H) 0.90 - 1.20 [facility] Comment: Interpretive data Oral anticoagulant therapeutic ranges: Venous thromboembolism prophylaxis or treatment: 2.0-3.0 CARDIOLOGY Standard range: 2.0-3.0 High-intensity range: 2.5-3.5 Refer to indication-specific guidelines for appropriate target ranges for prosthetic heart valve replacement. Current interpretive data was last revised on 2019. Blood 10/23/2024 3:35 AM CDT 10/23/2024 3:52 AM CDT Luan Guillermo DO LAB BLOOD ORDERABLES Fay l Result Performing Organization Address City/[facility]/ZIP Co de Phone Number [facility] ROSALES [id number] Department [place] [address] * (ABNORMAL) Basic metabolic panel (10/23/2024 3:35 AM CDT) Sodium 137 135 - 145 mmol/L Potassium, pl 4.1 3.3 - 4.9 mmol/L [facility] Chloride 97 97 - 110 mmol/L [facility] CO2 33(H) 22 - 32 mmol/L [facility] Anion gap 7 2 - 15 mmol/L [facility] BUN 44(H) 6 - 25 mg/dL [facility] Creatinine 1.70(H) 0.80 - 1.30 mg/dL [facility] Glucose 100 70 - 199 mg/dL [facility] Comment: Interpretive Data Fasting glucose >/= 126 mg/dl is diagnostic for diabetes. Fasting is defined as no caloric intake for at least 8 hours. Fasting glucose between 100 mg/dl to 125 mg/dl is diagnostic of prediabetes. In a patient with classic symptoms of hyperglycemia or hyperglycemic crisis, a random glucose >/= 200 mg/dl is diagnostic for diabetes. In the absence of unequivocal hyperglycemia, results should be confirmed by repeat testing. The classification and Diagnosis of Diabetes Diabetes Care 202; 46: S19-S40. Current interpretive data was last revised 2022. Calcium 8.8 8.5 - 10.3 mg/dL [facility] Blood 10/23/2024 3:35 AM CDT 10/23/2024 3:52 AM CDT Namrata Spencer NP LAB BLOOD ORDERABLES Final Result [facility] [address] Department [place] [address] * (ABNORMAL) eGFR (10/22/2024 3:54 AM CDT) eGFR 32(L) >=60 mL/min/1. 73 m2 Comment: Interpretive Data Reference Interval Normal >/= 90 mL/min/1.73m2 Mildly decreased* 60 - 89 mL/min/1.73m2 Mildly to moderately decreased 45 - 59 mL/min/1.73m2 Moderately to severely decreased 30 - 44 mL/min/1.73m2 Severely decreased 15 - 29 mL/min/1.73m2 Kidney Failure < 15 mL/min/1.73m2 *Relative to young adult level Estimated glomerular filtration rate is determined by the 2020 CKD-EPI equation recommended by the National Kidney Foundation (A Unifying Approach to GFR Estimation: Recommendations of the NKF-ASK Task Force on Reassessing the Inclusion of Race in Diagnosing Kidney Disease, JASN 2020). The CKD-EPI equation should not be used for patients with unstable renal function and has not been validated in children and those over 70. Current interpretive data was last reviewed 2021. Blood 10/22/2024 3:54 AM CDT 10/22/2024 4:24 AM CDT Namrata Spencer NP LAB BLOOD ORDERABLES Final Result [facility] [address] Department [place] [address] * (ABNORMAL) Differential, auto (10/22/2024 3:54 AM CDT) Neutrophil abs 4.61 1.50 - 6.50 K/cumm Imm gran abs 0.01 0.00 - 0.10 K/cumm [facility] Lymphocyte abs 0.52(L) 0.80 - 3.30 K/cumm [facility] Monocyte abs 0.58 0.20 - 0.80 K/cumm [facility] Eosinophil abs 0.05 0.00 - 0.50 K/cumm [facility] Basophil abs 0.02 0.00 - 0.10 K/cumm [facility] Neutrophil pct 79.6 % [facility] Comment: Interpretive Data Percent cell count reference ranges are not reported, since discordance with absolute values may lead to misinterpretation of CBC data. Current Interpretive Data was last revised on 2017. Imm gran pct 0.2 % [facility] Comment: Interpretive Data Percent cell count reference ranges are not reported, since discordance with absolute values may lead to misinterpretation of CBC data. Current Interpretive Data was last revised on 2017. Lymphocyte pct 9.0 % [facility] Comment: Interpretive Data Percent cell count reference ranges are not reported, since discordance with absolute values may lead to misinterpretation of CBC data. Current Interpretive Data was last revised on 2017. Monocyte pct 10.0 % [facility] Comment: Interpretive Data Percent cell count reference ranges are not reported, since discordance with absolute values may lead to misinterpretation of CBC data. Current Interpretive Data was last revised on 2017. Eosinophil pct 0.9 % [facility] Comment: Interpretive Data Percent cell count reference ranges are not reported, since discordance with absolute values may lead to misinterpretation of CBC data. Current Interpretive Data was last revised on 2017. Basophil pct 0.3 % [facility] Comment: Interpretive Data Percent cell count reference ranges are not reported, since discordance with absolute values may lead to misinterpretation of CBC data. Current Interpretive Data was last revised on 2017. Blood 10/22/2024 3:54 AM CDT 10/22/2024 4:23 AM CDT Namrata Spencer GUIDE DOG MOBILITY INSTRUCTOR LAB BLOOD ORDERABLES Final Result [facility] ROSALES [address] [place] [address] * (ABNORMAL) CBC with auto differential (10/22/2024 3:54 AM CDT) WBC 5.79 3.80 - 9.90 K/cumm Hgb 13.8 13.0 - 17.5 g/dL [facility] Hct 42.0 38.9 - 50.3 % [facility] Plt 104(L) 150 - 400 K/cumm [facility] MPV 12.3 9.1 - 12.3 fL [facility] RBC 4.46 4.30 - 5.80 M/cumm [facility] MCV 94.2 81.3 - 96.4 fL [facility] MCH 30.9 27.1 - 33.3 pg [facility] MCHC 32.9 32.3 - 35.7 g/dL [facility] RDW CV 16.7(H) 11.1 - 14.9 % [facility] RDW SD 57.1(H) 35.7 - 48.1 fL [facility] NRBC abs 0.00 0.00 - 0.01 K/cumm [facility] Blood 10/22/2024 3:54 AM CDT 10/22/2024 4:23 AM CDT Namrata Spencer NP LAB BLOOD ORDERABLES Final Result Performing Organization Address City/[facility]/ZIP Co de Phone Number [facility]URIE ROSALES [address] [place] [address] * (ABNORMAL) Protime-INR (10/22/2024 3:54 AM CDT) Pathologist [facility] PT 28.2(H) 9.7 - 13.0 sec INR 2.56(H) 0.90 - 1.20 [facility] Comment: Interpretive data Oral anticoagulant therapeutic ranges: Venous thromboembolism prophylaxis or treatment: 2.0-3.0 CARDIOLOGY Standard range: 2.0-3.0 High-intensity range: 2.5-3.5 Refer to indication-specific guidelines for appropriate target ranges for prosthetic heart valve replacement. Current interpretive data was last revised on 2019. Blood 10/22/2024 3:54 AM CDT 10/22/2024 4:23 AM CDT Namrata Spencer LAB BLOOD ORDERABLES Final Result Performing Organization Address [facility] Co de Phone Number [facility]IE [address] [facility] [place] [address] * Magnesium (10/22/2024 3:54 AM CDT) Pathologist [facility] Magnesium 2.1 1.4 - 2.5 mg/dL Blood 10/22/2024 3:54 AM CDT 10/22/2024 4:24 AM CDT [facility] Vidya Spencer LAB BLOOD ORDERABLES Final Result Performing Organization Address [facility] Co de Phone Number [facility] [id number] [facility] [place] [address] * (ABNORMAL) Basic metabolic panel (10/22/2024 3:54 AM CDT) Pathologist [facility] Sodium 134(L) 135 - 145 mmol/L Potassium, pl 4.3 3.3 - 4.9 mmol/L [facility] Chloride 95(L) 97 - 110 mmol/L [facility] CO2 33(H) 22 - 32 mmol/L [facility] Anion gap 6 2 - 15 mmol/L [facility] BUN 47(H) 6 - 25 mg/dL [facility] Creatinine 1.99(H) 0.80 - 1.30 mg/dL [facility] Comment:Icteric sample, test results may be affected. Glucose 101 70 - 199 mg/dL [facility] Comment: Interpretive Data Fasting glucose >/= 126 mg/dl is diagnostic for diabetes. Fasting is defined as no caloric intake for at least 8 hours. Fasting glucose between 100 mg/dl to 125 mg/dl is diagnostic of prediabetes. In a patient with classic symptoms of hyperglycemia or hyperglycemic crisis, a random glucose >/= 200 mg/dl is diagnostic for diabetes. In the absence of unequivocal hyperglycemia, results should be confirmed by repeat testing. The classification and Diagnosis of Diabetes Diabetes Care 2021; 46: S19-S40. Current interpretive data was last revised 2022. Calcium 8.8 8.5 - 10.3 mg/dL [facility] Blood 10/22/2024 3:54 AM CDT 10/22/2024 4:24 AM CDT Namrata Spencer NP LAB BLOOD ORDERABLES Final Result [facility] [id number] Department of Laboratories [place] [id number] * CT Abdomen Pelvis WO Contrast (10/21/2024 5:39 AM CDT) Anatomical Region Laterality Modality Body N/A Computed Tomogra phy 10/21/2024 10:0 1 AM CDT Impressions 10/21/2024 10:01 AM CDT Limited study secondary to lack of intravenous contrast. No acute intra-abdominal abnormality. Colonic diverticulosis. Bilateral pleural effusions and bilateral lower lobe atelectasis. 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 Electronically signed by: Neel Morrison M.D. Narrative 10/21/2024 10:01 AM CDT EXAMINATION: CT ABDOMEN PELVIS WO CONTRAST DATE: 10/21/2024 5:35 AM HISTORY: Weight loss, unintended TECHNIQUE: Images through the abdomen and pelvis were obtained without contrast. FINDINGS: There are bilateral pleural effusions. There is bilateral lower lobe atelectasis. 26 mm left hepatic cyst is present. The patient is status post cholecystectomy. There is no biliary ductal dilatation. The spleen, pancreas and adrenal glands are grossly normal on this noncontrast examination. There is mild bilateral perinephric stranding. There is no hydronephrosis, hydroureter or renal calculus. There are several small exophytic left renal lesions which cannot be further characterized on this noncontrast examination. There is no free air or fluid. There is no bowel obstruction. The appendix is not identified with confidence. There are multiple colonic diverticula. There is a 43 mm infrarenal abdominal aortic aneurysm. There are postoperative changes of the aortobiiliac bypass. Radiation therapy changes are noted in the prostate. Procedure Note Neel Morrison MD - 10/21/2024 EXAMINATION: CT ABDOMEN PELVIS WO CONTRAST DATE: 10/21/2024 5:35 AM HISTORY: Weight loss, unintended TECHNIQUE: Images through the abdomen and pelvis were obtained without contrast. FINDINGS: There are bilateral pleural effusions. There is bilateral lower lobe atelectasis. 26 mm left hepatic cyst is present. The patient is status post cholecystectomy. There is no biliary ductal dilatation. The spleen, pancreas and adrenal glands are grossly normal on this noncontrast examination. There is mild bilateral perinephric stranding. There is no hydronephrosis, hydroureter or renal calculus. There are several small exophytic left renal lesions which cannot be further characterized on this noncontrast examination. There is no free air or fluid. There is no bowel obstruction. The appendix is not identified with confidence. There are multiple colonic diverticula. There is a 43 mm infrarenal abdominal aortic aneurysm. There are postoperative changes of the aortobiiliac bypass. Radiation therapy changes are noted in the prostate. IMPRESSION: Limited study secondary to lack of intravenous contrast. No acute intra-abdominal abnormality. Colonic diverticulosis. Bilateral pleural effusions and bilateral lower lobe atelectasis. 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 Electronically signed by: Neel Morrison M.D. Delvin Mendenhall MD [facility] [place] [place]ED[place] Final Result * (ABNORMAL) eGFR (10/21/2024 5:17 AM CDT) Pathologist [facility] eGFR 28(L) >=60 mL/min/1. 73 m2 Comment: Interpretive Data Reference Interval Normal >/= 90 mL/min/1.73m2 Mildly decreased* 60 - 89 mL/min/1.73m2 Mildly to moderately decreased 45 - 59 mL/min/1.73m2 Moderately to severely decreased 30 - 44 mL/min/1.73m2 Severely decreased 15 - 29 mL/min/1.73m2 Kidney Failure < 15 mL/min/1.73m2 *Relative to young adult level Estimated glomerular filtration rate is determined by the 2020 CKD-EPI equation recommended by the National Kidney Foundation (A Unifying Approach to GFR Estimation: Recommendations of the NKF-ASK Task Force on Reassessing the Inclusion of Race in Diagnosing Kidney Disease, JASN 2020). The CKD-EPI equation should not be used for patients with unstable renal function and has not been validated in children and those over 70. Current interpretive data was last reviewed 2021. Blood 10/21/2024 5:17 AM CDT 10/21/2024 6:09 AM CDT Namrata Spencer NP LAB BLOOD ORDERABLES Final Result [facility] [address] Department [place] [address] * (ABNORMAL) Differential, auto (10/21/2024 5:17 AM CDT) Pathologist [facility] Neutrophil abs 3.63 1.50 - 6.50 K/cumm Imm gran abs 0.01 0.00 - 0.10 K/cumm [facility] Lymphocyte abs 0.62(L) 0.80 - 3.30 K/cumm [facility] Monocyte abs 0.51 0.20 - 0.80 K/cumm [facility] Eosinophil abs 0.05 0.00 - 0.50 K/cumm [facility] Basophil abs 0.03 0.00 - 0.10 K/cumm [facility] Neutrophil pct 74.9 % [facility] Comment: Interpretive Data Percent cell count reference ranges are not reported, since discordance with absolute values may lead to misinterpretation of CBC data. Current Interpretive Data was last revised on 2017. Imm gran pct 0.2 % [facility] Comment: Interpretive Data Percent cell count reference ranges are not reported, since discordance with absolute values may lead to misinterpretation of CBC data. Current Interpretive Data was last revised on 2017. Lymphocyte pct 12.8 % [facility] Comment: Interpretive Data Percent cell count reference ranges are not reported, since discordance with absolute values may lead to misinterpretation of CBC data. Current Interpretive Data was last revised on 2017. Monocyte pct 10.5 % [facility] Comment: Interpretive Data Percent cell count reference ranges are not reported, since discordance with absolute values may lead to misinterpretation of CBC data. Current Interpretive Data was last revised on 2017. Eosinophil pct 1.0 % [facility] Comment: Interpretive Data Percent cell count reference ranges are not reported, since discordance with absolute values may lead to misinterpretation of CBC data. Current Interpretive Data was last revised on 2017. Basophil pct 0.6 % [facility] Comment: Interpretive Data Percent cell count reference ranges are not reported, since discordance with absolute values may lead to misinterpretation of CBC data. Current Interpretive Data was last revised on 2017. Blood 10/21/2024 5:17 AM CDT 10/21/2024 6:10 AM CDT Namrata Spencer NP LAB BLOOD ORDERABLES Final Result [facility] [address] Department of Laboratories [place], [place] [id number] * (ABNORMAL) CBC with auto differential (10/21/2024 5:17 AM CDT) WBC 4.85 3.80 - 9.90 K/cumm Hgb 14.6 13.0 - 17.5 g/dL [facility] Hct 45.1 38.9 - 50.3 % [facility] Plt 108(L) 150 - 400 K/cumm [facility] MPV 11.2 9.1 - 12.3 fL [facility] RBC 4.73 4.30 - 5.80 M/cumm [facility] MCV 95.3 81.3 - 96.4 fL [facility] MCH 30.9 27.1 - 33.3 pg [facility] MCHC 32.4 32.3 - 35.7 g/dL [facility] RDW CV 16.8(H) 11.1 - 14.9 % [facility] RDW SD 58.7(H) 35.7 - 48.1 fL [facility] NRBC abs 0.00 0.00 - 0.01 K/cumm [facility] Blood 10/21/2024 5:17 AM CDT 10/21/2024 6:10 AM CDT Namrata Spencer LAB BLOOD ORDERABLES Final Result Performing Organization Address [facility] de Phone Number BR[facility]NY[facility] [address] [place] [address] * (ABNORMAL) Protime-INR (10/21/2024 5:17 AM CDT) PT 25.7(H) 9.7 - 13.0 sec INR 2.34(H) 0.90 - 1.20 [facility] Comment: Interpretive data Oral anticoagulant therapeutic ranges: Venous thromboembolism prophylaxis or treatment: 2.0-3.0 CARDIOLOGY Standard range: 2.0-3.0 High-intensity range: 2.5-3.5 Refer to indication-specific guidelines for appropriate target ranges for prosthetic heart valve replacement. Current interpretive data was last revised on 2019. Blood 10/21/2024 5:17 AM CDT 10/21/2024 6:09 AM CDT Namrata Spencer LAB BLOOD ORDERABLES Final Result Performing Organization Address [facility] Co de Phone Number BR[place]NY[facility] [address] [facility] [place], [place] [id number] * Magnesium (10/21/2024 5:17 AM CDT) Magnesium 2.1 1.4 - 2.5 mg/dL Blood 10/21/2024 5:17 AM CDT 10/21/2024 6:09 AM CDT Namrata Spencer NP LAB BLOOD ORDERABLES Final Result [facility] [address] Department [place] [address] * (ABNORMAL) Basic metabolic panel (10/21/2024 5:17 AM CDT) Pathologist [facility] Sodium 133(L) 135 - 145 mmol/L Potassium, pl 4.5 3.3 - 4.9 mmol/L [facility] Chloride 95(L) 97 - 110 mmol/L [facility] CO2 28 22 - 32 mmol/L [facility] Anion gap 10 2 - 15 mmol/L [facility] BUN 48(H) 6 - 25 mg/dL [facility] Creatinine 2.23(H) 0.80 - 1.30 mg/dL [facility] Glucose 94 70 - 199 mg/dL [facility] Comment: Interpretive Data Fasting glucose >/= 126 mg/dl is diagnostic for diabetes. Fasting is defined as no caloric intake for at least 8 hours. Fasting glucose between 100 mg/dl to 125 mg/dl is diagnostic of prediabetes. In a patient with classic symptoms of hyperglycemia or hyperglycemic crisis, a random glucose >/= 200 mg/dl is diagnostic for diabetes. In the absence of unequivocal hyperglycemia, results should be confirmed by repeat testing. The classification and Diagnosis of Diabetes Diabetes Care 202; 46: S19-S40. Current interpretive data was last revised 2022. Calcium 8.8 8.5 - 10.3 mg/dL [facility] Blood 10/21/2024 5:17 AM CDT 10/21/2024 6:09 AM CDT Namrata Spencer NP LAB BLOOD ORDERABLES Final Result [facility] [address] [facility] Department [place] [address] * TRANSTHORACIC ECHO (TTE) COMPLETE W DOPPLER/CF W CONTRAST (10/20/2024 1:23 PM CDT) EF Mod BP 37 % CONS SCIMAGE Anatomical Region Laterality Modality Ultrasound 10/20/2024 12:1 1 PM CDT Narrative 10/21/2024 6:43 AM CDT [place] [id number] Echocardiogram Report Patient Name: IAN MONSALVE H : 1940 Study Date: 10/20/2024 12:11:53 PM Gender: M Tech: Location: [id number] Ref Provider: CARLA JEAN Height(Cm): 170 BSA: 1.93 Weight(Kg): 79 Heart Rate: 80 BP: 90 / 55 Quality: Good Order Provider: CARLA JEAN PROCEDURES: Echocardiographic Report: Transthoracic echocardiogram with complete 2D, M-Mode, color Doppler examination and contrast. INDICATIONS: Congestive Heart Failure. MEASUREMENTS: 2D/MM Value Range Doppler Value Range EF Mod BP 37 % [ 52 - 72 ] NIR Vmax 1.83 cm2 LVIDd 2D 4.85 cm [ 4.20 - 5.80 ] AV Mean PG 3 mmHg LVIDs 2D 4.09 cm [ 2.50 - 4.00 ] AV Peak Abilio 1.17 m/s [ 1.00 - 1.70 ] LVPWd 2D 1.45 cm [ 0.60 - 1.00 ] AV VTI 17.66 cm IVSd 2D 1.39 cm [ 0.60 - 1.00 ] LVOT Diam 2.02 cm LA Dimension 2D 3.43 cm [ 3.00 - 4.00 ] LVOT Peak Abilio 0.67 m/s [ 0.70 - 1.10 ] LA Dimension MM 3.96 cm [ 3.00 - 4.00 ] LVOT VTI 10.11 cm AoR Diam 2D 3.61 cm [ 3.10 - 3.70 ] SI LVOT 16.9 ml/m2 [ >= 35.0 ] AoR Diam MM 2.95 cm [ 3.10 - 3.70 ] MV E Peak Abilio 0.79 m/s [ 0.60 - 1.30 ] MV A Peak Abilio 0.62 m/s [ 1.00 - 1.20 ] MV Mean PG 1 mmHg MV PHT 34 msec [ 20 - 100 ] MVA PHT 6.43 cm2 MV Decel Time 118 msec [ 104 - 258 ] PV Peak Abilio 0.86 m/s [ 0.40 - 0.80 ] PI Peak Abilio 1.82 m/s TR Peak Abilio 3.60 m/s [ 1.00 - 2.80 ] TR Peak PG 52 mmHg E` 0.05 m/s E/E` 17.09 2D/MM Value Range Doppler Value Range - FINDINGS: Atrial Septum: Normal atrial septum. Left Ventricle: Left ventricle cavity is within upper limits of normal. Optison contrast agent used to visually enhance endocardial wall motion and contractility. Moderate concentric left ventricular hypertrophy. Moderate global left ventricular systolic dysfunction. Diastolic dysfunction is present. Increased left heart filling pressures based on elevated E/E`. Ejection fraction is measured at 37 %. Left Atrium: There is mild enlargement of left atrium. Right Ventricle: Moderate enlargement of right ventricle. Severe right ventricular hypokinesis. Abnormal (paradoxical) septal motion consistent with RV volume overload and/or elevated RV end-diastolic pressure. Right Atrium: There is mild enlargement of right atrium. Linear artifact in right atrium suggestive of catheter(s), pacemaker lead(s), or ICD lead(s). Aortic Valve: Aortic cusps appear mildly sclerotic. No evidence of hemodynamically significant aortic stenosis by Doppler. Mitral Valve: Normal structure of the mitral valve. Mild mitral valve regurgitation. Pulmonic Valve: Normal structure of the pulmonic valve. Mild pulmonic regurgitation. Tricuspid Valve: Normal structure of the tricuspid valve. Severe pulmonary hypertension based on right ventricular systolic pressure. Estimated peak RVSP is 60 mmHg. Moderate tricuspid regurgitation. Pericardium: Normal pericardium with no significant pericardial effusion. Aorta: Normal aortic root. IVC: The IVC is not well visualized. CONCLUSIONS: Echo contrast was used. Left ventricle cavity is within upper limits of normal. Moderate concentric left ventricular hypertrophy. Moderate global left ventricular systolic dysfunction. Diastolic dysfunction is present. Increased left heart filling pressures based on elevated E/E`. Ejection fraction is measured at 37 %. Moderate RV enlargement with severe hypokinesis. Abnormal (paradoxical) septal motion consistent with RV volume overload and/or elevated RV end-diastolic pressure. Mild biatrial enlargement. Linear artifact in right atrium. Normal structure of the mitral valve. Mild mitral valve regurgitation. Aortic cusps appear mildly sclerotic. No evidence of hemodynamically significant aortic stenosis by Doppler. Jiwjqozf-ie-hsqirg pulmonary hypertension, estimated RVSP 60 mmHg. Moderate tricuspid regurgitation. Electronically Signed By: Clive Godfrey MD, [facility] 10/21/2024 6:43:00 AM CDT Procedure Note Clive Godfrey MD - 10/21/2024 [place] [address] Echocardiogram Report Patient Name: IAN MONSALVE H : 1940 Study Date: 10/20/2024 12:11:53 PM Gender: M Tech: Location: [id number] Ref Provider: CARLA JEAN Height(Cm): 170 BSA: 1.93 Weight(Kg): 79 Heart Rate: 80 BP: 90 / 55 Quality: Good Order Provider: CARLA JEAN PROCEDURES: Echocardiographic Report: Transthoracic echocardiogram with complete 2D, M-Mode, color Dopplerexamination and contrast. INDICATIONS: Congestive Heart Failure. MEASUREMENTS: 2D/MM Value Range Doppler ValueRange EF Mod BP 37 % [ 52 - 72 ] NIR Vmax 1.83cm2 LVIDd 2D 4.85 cm [ 4.20 - 5.80 ] AV Mean PG 3 mmHg LVIDs 2D 4.09 cm [ 2.50 - 4.00 ] AV Peak Abilio 1.17 m/s[ 1.00 - 1.70 ] LVPWd 2D 1.45 cm [ 0.60 - 1.00 ] AV VTI 17.66cm IVSd 2D 1.39 cm [ 0.60 - 1.00 ] LVOT Diam 2.02cm LA Dimension 2D 3.43 cm [ 3.00 - 4.00 ] LVOT Peak Abilio 0.67 m/s[ 0.70 - 1.10 ] LA Dimension MM 3.96 cm [ 3.00 - 4.00 ] LVOT VTI 10.11cm AoR Diam 2D 3.61 cm [ 3.10 - 3.70 ] SI LVOT 16.9ml/m2 [ >= 35.0 ] AoR Diam MM 2.95 cm [ 3.10 - 3.70 ] MV E Peak Abilio 0.79 m/s[ 0.60 - 1.30 ] MV A Peak Abilio 0.62 m/s [ 1.00 - 1.20 ] MV Mean PG 1 mmHg MV PHT 34 msec [ 20 - 100 ] MVA PHT 6.43 cm2 MV Decel Time 118 msec [ 104 - 258 ] PV Peak Abilio 0.86 m/s [ 0.40 - 0.80 ] PI Peak Abilio 1.82 m/s TR Peak Abilio 3.60 m/s [ 1.00 - 2.80 ] TR Peak PG 52 mmHg E` 0.05 m/s E/E` 17.09 2D/MM Value Range Doppler ValueRange - FINDINGS: Atrial Septum: Normal atrial septum. Left Ventricle: Left ventricle cavity is within upper limits of normal. Optison contrastagent used to visually enhance endocardial wall motion and contractility. Moderateconcentric left ventricular hypertrophy. Moderate global left ventricular systolicdysfunction. Diastolic dysfunction is present. Increased left heart filling pressures based onelevated E/E`. Ejection fraction is measured at 37 %. Left Atrium: There is mild enlargement of left atrium. Right Ventricle: Moderate enlargement of right ventricle. Severe right ventricularhypokinesis. Abnormal (paradoxical) septal motion consistent with RV volume overload and/orelevated RV end-diastolic pressure. Right Atrium: There is mild enlargement of right atrium. Linear artifact in right atriumsuggestive of catheter(s), pacemaker lead(s), or ICD lead(s). Aortic Valve: Aortic cusps appear mildly sclerotic. No evidence of hemodynamicallysignificant aortic stenosis by Doppler. Mitral Valve: Normal structure of the mitral valve. Mild mitral valve regurgitation. Pulmonic Valve: Normal structure of the pulmonic valve. Mild pulmonic regurgitation. Tricuspid Valve: Normal structure of the tricuspid valve. Severe pulmonary hypertensionbased on right ventricular systolic pressure. Estimated peak RVSP is 60 mmHg. Moderatetricuspid regurgitation. Pericardium: Normal pericardium with no significant pericardial effusion. Aorta: Normal aortic root. IVC: The IVC is not well visualized. CONCLUSIONS: Echo contrast was used. Left ventricle cavity is within upper limits ofnormal. Moderate concentric left ventricular hypertrophy. Moderate global left ventricularsystolic dysfunction. Diastolic dysfunction is present. Increased left heartfilling pressures based on elevated E/E`. Ejection fraction is measured at 37 %. Moderate RV enlargement with severe hypokinesis. Abnormal (paradoxical)septal motion consistent with RV volume overload and/or elevated RV end-diastolicpressure. Mild biatrial enlargement. Linear artifact in right atrium. Normal structure of the mitral valve. Mild mitral valve regurgitation. Aortic cusps appear mildly sclerotic. No evidence of hemodynamicallysignificant aortic stenosis by Doppler. Vyjlokep-ss-dgyxux pulmonary hypertension, estimated RVSP 60 mmHg.Moderate tricuspid regurgitation. Electronically Signed By: Clive Godfrey MD, [facility] 10/21/2024 6:43:00 AM CDT us Carla Jean MD CV ECHO PROCEDURES Final Resu lt * (ABNORMAL) eGFR (10/20/2024 6:38 AM CDT) eGFR 26(L) >=60 mL/min/1. 73 m2 Comment: Interpretive Data Reference Interval Normal >/= 90 mL/min/1.73m2 Mildly decreased* 60 - 89 mL/min/1.73m2 Mildly to moderately decreased 45 - 59 mL/min/1.73m2 Moderately to severely decreased 30 - 44 mL/min/1.73m2 Severely decreased 15 - 29 mL/min/1.73m2 Kidney Failure < 15 mL/min/1.73m2 *Relative to young adult level Estimated glomerular filtration rate is determined by the 2020 CKD-EPI equation recommended by the National Kidney Foundation (A Unifying Approach to GFR Estimation: Recommendations of the NKF-ASK Task Force on Reassessing the Inclusion of Race in Diagnosing Kidney Disease, JASN 2020). The CKD-EPI equation should not be used for patients with unstable renal function and has not been validated in children and those over 70. Current interpretive data was last reviewed 2021. Blood 10/20/2024 6:38 AM CDT 10/20/2024 6:43 AM CDT Namrata Spencer NP LAB BLOOD ORDERABLES Final Result [facility] [address] Department of Laboratories [place], [place] [phone] * (ABNORMAL) Differential, auto (10/20/2024 6:38 AM CDT) Neutrophil abs 3.55 1.50 - 6.50 K/cumm Imm gran abs 0.01 0.00 - 0.10 K/cumm [facility] Lymphocyte abs 0.72(L) 0.80 - 3.30 K/cumm [facility] Monocyte abs 0.61 0.20 - 0.80 K/cumm [facility] Eosinophil abs 0.03 0.00 - 0.50 K/cumm [facility] Basophil abs 0.02 0.00 - 0.10 K/cumm [facility] Neutrophil pct 71.9 % [facility] Comment: Interpretive Data Percent cell count reference ranges are not reported, since discordance with absolute values may lead to misinterpretation of CBC data. Current Interpretive Data was last revised on 2017. Imm gran pct 0.2 % [facility] Comment: Interpretive Data Percent cell count reference ranges are not reported, since discordance with absolute values may lead to misinterpretation of CBC data. Current Interpretive Data was last revised on 2017. Lymphocyte pct 14.6 % [facility] Comment: Interpretive Data Percent cell count reference ranges are not reported, since discordance with absolute values may lead to misinterpretation of CBC data. Current Interpretive Data was last revised on 2017. Monocyte pct 12.3 % [facility] Comment: Interpretive Data Percent cell count reference ranges are not reported, since discordance with absolute values may lead to misinterpretation of CBC data. Current Interpretive Data was last revised on 2017. Eosinophil pct 0.6 % [facility] Comment: Interpretive Data Percent cell count reference ranges are not reported, since discordance with absolute values may lead to misinterpretation of CBC data. Current Interpretive Data was last revised on 2017. Basophil pct 0.4 % [facility] Comment: Interpretive Data Percent cell count reference ranges are not reported, since discordance with absolute values may lead to misinterpretation of CBC data. Current Interpretive Data was last revised on 2017. Blood 10/20/2024 6:38 AM CDT 10/20/2024 6:43 AM CDT Namrata Spencer NP LAB BLOOD ORDERABLES Final Result [facility] [address] Department [place] [address] * (ABNORMAL) CBC with auto differential (10/20/2024 6:38 AM CDT) WBC 4.94 3.80 - 9.90 K/cumm Hgb 14.2 13.0 - 17.5 g/dL [facility] Hct 43.3 38.9 - 50.3 % [facility] Plt 106(L) 150 - 400 K/cumm [facility] MPV 11.0 9.1 - 12.3 fL [facility] RBC 4.58 4.30 - 5.80 M/cumm [facility] MCV 94.5 81.3 - 96.4 fL [facility] MCH 31.0 27.1 - 33.3 pg [facility] MCHC 32.8 32.3 - 35.7 g/dL [facility] RDW CV 16.8(H) 11.1 - 14.9 % [facility] RDW SD 58.4(H) 35.7 - 48.1 fL [facility] NRBC abs 0.00 0.00 - 0.01 K/cumm [facility] Blood 10/20/2024 6:38 AM CDT 10/20/2024 6:43 AM CDT Namratamely Spencer [employer] LAB BLOOD ORDERABLES Final Result [facility] [address] [place] [address] * (ABNORMAL) Protime-INR (10/20/2024 6:38 AM CDT) PT 34.5(H) 9.7 - 13.0 sec INR 3.12(H) 0.90 - 1.20 [facility] Comment: Interpretive data Oral anticoagulant therapeutic ranges: Venous thromboembolism prophylaxis or treatment: 2.0-3.0 CARDIOLOGY Standard range: 2.0-3.0 High-intensity range: 2.5-3.5 Refer to indication-specific guidelines for appropriate target ranges for prosthetic heart valve replacement. Current interpretive data was last revised on 2019. Blood 10/20/2024 6:38 AM CDT 10/20/2024 6:43 AM CDT Namrata Spencer NP LAB BLOOD ORDERABLES Final Result [facility] [address] [place] [address] * Magnesium (10/20/2024 6:38 AM CDT) Magnesium 2.0 1.4 - 2.5 mg/dL Blood 10/20/2024 6:38 AM CDT 10/20/2024 6:42 AM CDT Namrata Spencer NP LAB BLOOD ORDERABLES Final Result Performing Organization Address [facility] Co de Phone Number LAURIE ROSALES [phone] Department [place] [address] * Digoxin level (10/20/2024 6:38 AM CDT) Digoxin 0.8 0.5 - 1.2 ng/mL Comment: Interpretive data The therapeutic range for digoxin varies by indication: Heart failure: 0.5 to 0.8 ng/mL Atrial fibrillation: less than 1.2 ng/mL Toxicity: >2.4. Normal or low digoxin does not rule out toxicity. Current interpretive data was last revised on 2024. Blood 10/20/2024 6:38 AM CDT 10/20/2024 6:43 AM CDT Carla Jean MD LAB BLOOD ORDERABLES Final Re sult Performing Organization Address [facility] Co de Phone Number LAURIE ROSALES [phone] Department [place] [address] * (ABNORMAL) Basic metabolic panel (10/20/2024 6:38 AM CDT) Sodium 133(L) 135 - 145 mmol/L Potassium, pl 4.4 3.3 - 4.9 mmol/L [facility] Chloride 96(L) 97 - 110 mmol/L [facility] CO2 30 22 - 32 mmol/L [facility] Anion gap 10 2 - 15 mmol/L [facility] BUN 46(H) 6 - 25 mg/dL [facility] Creatinine 2.43(H) 0.80 - 1.30 mg/dL [facility] Glucose 106 70 - 199 mg/dL [facility] Comment: Interpretive Data Fasting glucose >/= 126 mg/dl is diagnostic for diabetes. Fasting is defined as no caloric intake for at least 8 hours. Fasting glucose between 100 mg/dl to 125 mg/dl is diagnostic of prediabetes. In a patient with classic symptoms of hyperglycemia or hyperglycemic crisis, a random glucose >/= 200 mg/dl is diagnostic for diabetes. In the absence of unequivocal hyperglycemia, results should be confirmed by repeat testing. The classification and Diagnosis of Diabetes Diabetes Care 2021; 46: S19-S40. Current interpretive data was last revised 2022. Calcium 8.8 8.5 - 10.3 mg/dL LAURIE ROSALES Blood 10/20/2024 6:38 AM CDT 10/20/2024 6:42 AM CDT us Namrata Spencer NP LAB BLOOD ORDERABLES Final Result LAURIE ROSALES [id number] Department [place] [address] * US Retroperitoneal Complete (10/19/2024 3:09 PM CDT) Anatomical Region Laterality Modality Abdomen N/A Ultrasound 10/19/2024 3:22 PM CDT Impressions 10/19/2024 3:22 PM CDT 1. Possible mass in the right kidney measuring up to 1.4 cm. Suggest MRI of the kidneys for further evaluation. 2. Enlarged prostate. Electronically signed by: Rajendra Oh II, D.O. Narrative 10/19/2024 3:22 PM CDT EXAMINATION: RENAL ULTRASOUND Date: 10/19/2024 2:20 PM History: Kidney failure, acute Comparison: None. Findings: The right kidney measures 10.5 x 4.7 x 4.0 cm . Parenchymal echogenicity is within normal limits. There is no hydronephrosis, calculus, or perinephric fluid. Possible cortical mass in the right kidney measuring 1.4 x 1.3 x 1.4 cm The left kidney measures 10.6 x 5.0 x 4.0 cm. Parenchymal echogenicity is within normal limits. There is no hydronephrosis, calculus or perinephric fluid. Simple cysts measuring up to 1.9 cm in the left kidney. The bladder Is unremarkable. Prostate is enlarged measuring 4.2 x 4.6 x 5.3 cm Procedure Note Rajendra Oh II, DO - 10/19/2024 EXAMINATION: RENAL ULTRASOUND Date: 10/19/2024 2:20 PM History: Kidney failure, acute Comparison: None. Findings: The right kidney measures 10.5 x 4.7 x 4.0 cm . Parenchymal echogenicity is within normal limits. There is no hydronephrosis, calculus, or perinephric fluid. Possible cortical mass in the right kidney measuring 1.4 x 1.3 x 1.4 cm The left kidney measures 10.6 x 5.0 x 4.0 cm. Parenchymal echogenicity is within normal limits. There is no hydronephrosis, calculus or perinephric fluid. Simple cysts measuring up to 1.9 cm in the left kidney. The bladder Is unremarkable. Prostate is enlarged measuring 4.2 x 4.6 x 5.3 cm IMPRESSION: 1. Possible mass in the right kidney measuring up to 1.4 cm. Suggest MRI of the kidneys for further evaluation. 2. Enlarged prostate. Electronically signed by: Rajendra Oh II, D.O. us Delvin Mendenhall MD IMG US PROCEDURES Final Result * Urinalysis reflex to microscopic and culture Urine (10/19/2024 12:33 PM CDT) Color, ur Yellow Yellow Clarity, ur Clear Clear [facility] Specific gravity, ur 1.007 1.003 - 1.030 [facility] pH, urine 5.0 [facility] Comment: Interpretive Data U rine pH is affected by diet, medications, systemic acid-base disturbances, and renal tubular function. pH may affect urinary stone formation. For example, urine pH below 6.0 may help reduce the tendency for calcium phosphate stones and pH greater than 6.0 may reduce the tendency for uric acid stone formation. Source: [place] Current Interpretive Data was last revised on 2017 Protein, ur ql Negative Negative [facility] Glucose, ur ql Negative Negative [facility] Ketones, ur Negative Negative [facility] Bilirubin, ur Negative Negative [facility] Blood, ur Negative Negative [facility] Urobilinogen, ur <2.0 <2.0 mg/dL [facility] Nitrite, ur Negative Negative [facility] Leukocyte esterase, ur Negative Negative [facility] UA reflex comment Reflex conditions for microscopic UA and culture not met. LAURIE ROSALES Urine 10/19/2024 12:3 3 PM CDT 10/19/2024 12:39 PM CDT Delvin Mendenhall MD LAB MICROBIOLOGY - GENERAL ORD ERABLES Final Result Performing Organization Address [facility] Co de Phone Number LAURIE ROSALES [phone] [place] [address] * Strep pneumoniae antigen, urine Urine (10/19/2024 12:33 PM CDT) S. pneumoniae Ag Negative Negative Comment: A negative result is a presumptive negative for pneumococcal pneumonia, suggesting no current or recent pneumococcal infection. Infection due to Streptococcus pneumoniae cannot be ruled out since the antigen present in the specimen may be below the detection limit of the test. Pneumococcal pneumonia is best diagnosed by a sputum culture. CAUTIONS: A negative result does not exclude Streptococcus pneumoniae infection. A diagnosis of Streptococcus pneumoniae infection must take into consideration all test results, culture results, and the clinical presentation of the patient. Interpretive Data A positive result is indicative of pneumococcal pneumonia in patients with severe CAP. Cross-reactivity with closely related Streptococcus bacteria may occur. A negative result suggests no current or recent pneumococcal infection but cannot rule out infection with S. pneumoniae. The results of this testing should be used in conjunction with clinical findings and other diagnostic testing, including microbiologic culture. Current Interpretive Data was last revised on 2022 Urine 10/19/2024 12:3 3 PM CDT 10/19/2024 12:40 PM CDT us Radha Suggs MD LAB MICROBIOLOGY - GENE RAL ORDERABLES Final Result Performing Organization Address [facility] Co de Phone Number LAURIE ROSALES [phone] [place] [address] * Protein / creatinine ratio, urine, random (10/19/2024 12:33 PM CDT) Protein, ur, quant 5.8 mg/dL Comment: Interpretive Data No reference range established. Current interpretive data was last revised 2018. Creatinine Ur 46.3 mg/dL [facility] Comment: Interpretive Data No reference range established. Current interpretive data was last revised 2018. Protein/creatinin e ratio 125.3 0.0 - 180.0 mg/g CR [facility] Urine 10/19/2024 12:3 3 PM CDT 10/19/2024 12:39 PM CDT Delvin Mendenhall MD LAB URINE ORDERABLES Final Res ult Performing Organization Address [facility] Co de Phone Number [facility] [phone] Department [place] [address] * Legionella antigen Urine (10/19/2024 12:33 PM CDT) Legionella Ag Negative Negative Comment: Interpretive Data This test detects only Legionella pneumophila serogroup 1 antigen. Current interpretive data was last revised on 2019. Urine 10/19/2024 12:3 3 PM CDT 10/19/2024 12:40 PM CDT Radha Suggs MD LAB MICROBIOLOGY - GENE RAL ORDERABLES Final Result Performing Organization Address [facility] de Phone Number [facility] [id number] [place] [address] * LETICIA ab ql w/rflx to LETICIA qn (10/19/2024 12:15 PM CDT) LETICIA Negative Comment: Interpretive Data Normal range for LETICIA Qualitative Antibody = Negative. 1. LETICIA is performed using indirect immunofluorescence against HEp-2 cells 2. LETICIA titers are performed on all positive qualitative results. 3. A significantly positive LETICIA result is defined as a positive nuclear fluorescence at a titer of 1:80 or greater. 4. 15% of normal people above age 65 have significantly positive LETICIA results. 5% or less of normal people age 65 or under have significantly positive LETICIA results. Current interpretive data was last revised on 2020. Testing performed by: [facility], [address] [place]., [address] Blood 10/19/2024 12:1 5 PM CDT 10/19/2024 2:07 PM CDT Delvin Mendenhall MD LAB BLOOD ORDERABLES Final Res ult Performing Organization Address [facility] Co de Phone Number LAURIE ROSALES [phone] [place] [address] * ANCA (10/19/2024 12:15 PM CDT) C-ANCA Negative Negative [place] [facility] P-ANCA Negative Negative LAURIE ROSALES Comment: Negative for cANCA and pANCA patterns by immunofluorescence. ADDITIONAL INFORMATION This test was developed and its performance characteristics determined by [facility] in a manner consistent with CLIA requirements. This test has not been cleared or approved by the U.S. Food and Drug Administration. Test Performed by: [facility] [place] [address] Resp Therapist: Hayder Arzola Ph.D.; CLIA# [id number] Blood 10/19/2024 12:1 5 PM CDT 10/19/2024 12:19 PM CDT Delvin Mendenhall MD LAB BLOOD ORDERABLES Final Res ult Performing Organization Address [facility]/ZIP Co de Phone Number LAURIE ROSALES [id number] [place] [address] [place] [facility] * Erythrocyte sedimentation rate (10/19/2024 12:15 PM CDT) Erythrocyte sedimentation rate 6 1 - 20 mm/hr Comment:Testing performed by : [facility], [facility], [place], [address] Blood 10/19/2024 12:1 5 PM CDT 10/19/2024 12:20 PM CDT Delvin Mendenhall MD LAB BLOOD ORDERABLES Final Res ult Performing Organization Address [facility] Co de Phone Number BRYNYEE ROSALES [phone] [facility] [place] [address] * C3 complement (10/19/2024 12:15 PM CDT) [facility] Complement C3 119 90 - 180 mg/dL Blood 10/19/2024 12:1 5 PM CDT 10/19/2024 12:20 PM CDT Delvin Mendenhall MD LAB BLOOD ORDERABLES Final Res ult Performing Organization Address [facility] de Phone Number LAURIE ROSALES [phone] [facility] [place] [address] * Hemoglobin A1c (10/19/2024 12:15 PM CDT) [facility] Hgb A1C 5.6 4.0 - 5.6 % Estimated Average Glucose 114 mg/dL LAURIE ROSALES Comment: The ADA recommends reporting an estimated Average Glucose (eAG) with all Hemoglobin A1c results using the equation derived from a study of 507 normal and diabetic adults. Minority populations were underrepresented and children were not included. (Diabetes Care 31:3151-7907, 2008). The eAG is not equivalent to a fasting glucose. Blood 10/19/2024 12:1 5 PM CDT 10/19/2024 12:20 PM CDT Delvin Mendenhall MD LAB BLOOD ORDERABLES Final Res ult Performing Organization Address [facility] Co de Phone Number LAURIE ROSALES [phone] [facility] [place] [address] * (ABNORMAL) eGFR (10/19/2024 5:12 AM CDT) [facility] eGFR 36(L) >=60 mL/min/1. 73 m2 Comment: Interpretive Data Reference Interval Normal >/= 90 mL/min/1.73m2 Mildly decreased* 60 - 89 mL/min/1.73m2 Mildly to moderately decreased 45 - 59 mL/min/1.73m2 Moderately to severely decreased 30 - 44 mL/min/1.73m2 Severely decreased 15 - 29 mL/min/1.73m2 Kidney Failure < 15 mL/min/1.73m2 *Relative to young adult level Estimated glomerular filtration rate is determined by the 2020 CKD-EPI equation recommended by the National Kidney Foundation (A Unifying Approach to GFR Estimation: Recommendations of the NKF-ASK Task Force on Reassessing the Inclusion of Race in Diagnosing Kidney Disease, JASN 2020). The CKD-EPI equation should not be used for patients with unstable renal function and has not been validated in children and those over 70. Current interpretive data was last reviewed 2021. Blood 10/19/2024 5:12 AM CDT 10/19/2024 5:20 AM CDT Namrata Spencer NP LAB BLOOD ORDERABLES Final Result [facility] [address] Department [place] [address] * (ABNORMAL) Differential, auto (10/19/2024 5:12 AM CDT) Neutrophil abs 3.68 1.50 - 6.50 K/cumm Imm gran abs 0.02 0.00 - 0.10 K/cumm [facility] Lymphocyte abs 0.73(L) 0.80 - 3.30 K/cumm [facility] Monocyte abs 0.49 0.20 - 0.80 K/cumm [facility] Eosinophil abs 0.07 0.00 - 0.50 K/cumm [facility] Basophil abs 0.03 0.00 - 0.10 K/cumm [facility] Neutrophil pct 73.3 % [facility] Comment: Interpretive Data Percent cell count reference ranges are not reported, since discordance with absolute values may lead to misinterpretation of CBC data. Current Interpretive Data was last revised on 2017. Imm gran pct 0.4 % [facility] Comment: Interpretive Data Percent cell count reference ranges are not reported, since discordance with absolute values may lead to misinterpretation of CBC data. Current Interpretive Data was last revised on 2017. Lymphocyte pct 14.5 % [facility] Comment: Interpretive Data Percent cell count reference ranges are not reported, since discordance with absolute values may lead to misinterpretation of CBC data. Current Interpretive Data was last revised on 2017. Monocyte pct 9.8 % [facility] Comment: Interpretive Data Percent cell count reference ranges are not reported, since discordance with absolute values may lead to misinterpretation of CBC data. Current Interpretive Data was last revised on 2017. Eosinophil pct 1.4 % [facility] Comment: Interpretive Data Percent cell count reference ranges are not reported, since discordance with absolute values may lead to misinterpretation of CBC data. Current Interpretive Data was last revised on 2017. Basophil pct 0.6 % [facility] Comment: Interpretive Data Percent cell count reference ranges are not reported, since discordance with absolute values may lead to misinterpretation of CBC data. Current Interpretive Data was last revised on 2017. Blood 10/19/2024 5:12 AM CDT 10/19/2024 5:19 AM CDT Namrata Spencer NP LAB BLOOD ORDERABLES Final Result [facility] [id number] Department [place] [address] * (ABNORMAL) CBC with auto differential (10/19/2024 5:12 AM CDT) Pathologist [facility] WBC 5.02 3.80 - 9.90 K/cumm Hgb 15.5 13.0 - 17.5 g/dL [facility] Hct 48.5 38.9 - 50.3 % [facility] Plt 125(L) 150 - 400 K/cumm [facility] MPV 11.4 9.1 - 12.3 fL [facility] RBC 5.03 4.30 - 5.80 M/cumm [facility] MCV 96.4 81.3 - 96.4 fL [facility] MCH 30.8 27.1 - 33.3 pg [facility] MCHC 32.0(L) 32.3 - 35.7 g/dL [facility] RDW CV 17.0(H) 11.1 - 14.9 % [facility] RDW SD 59.9(H) 35.7 - 48.1 fL [facility] NRBC abs 0.00 0.00 - 0.01 K/cumm [facility] Blood 10/19/2024 5:12 AM CDT 10/19/2024 5:19 AM CDT Namrata Spencer NP LAB BLOOD ORDERABLES Final Result LAURIE [id number] [place] [address] * (ABNORMAL) Protime-INR (10/19/2024 5:12 AM CDT) PT 34.7(H) 9.7 - 13.0 sec INR 3.14(H) 0.90 - 1.20 LAURIE Comment: Interpretive data Oral anticoagulant therapeutic ranges: Venous thromboembolism prophylaxis or treatment: 2.0-3.0 CARDIOLOGY Standard range: 2.0-3.0 High-intensity range: 2.5-3.5 Refer to indication-specific guidelines for appropriate target ranges for prosthetic heart valve replacement. Current interpretive data was last revised on 2019. Blood 10/19/2024 5:12 AM CDT 10/19/2024 5:20 AM CDT Namrata Spencer NP LAB BLOOD ORDERABLES Final Result LAUREI [address] [facility] [place] [address] * Magnesium (10/19/2024 5:12 AM CDT) Magnesium 2.0 1.4 - 2.5 mg/dL Blood 10/19/2024 5:12 AM CDT 10/19/2024 5:20 AM CDT Namrata Vidya Spencer NP LAB BLOOD ORDERABLES Final Result LAURIE ROSALES [address] Department [place] [address] * (ABNORMAL) Basic metabolic panel (10/19/2024 5:12 AM CDT) Sodium 133(L) 135 - 145 mmol/L Potassium, pl 4.8 3.3 - 4.9 mmol/L [facility] Chloride 96(L) 97 - 110 mmol/L [facility] CO2 30 22 - 32 mmol/L [facility] Anion gap 7 2 - 15 mmol/L [facility] BUN 35(H) 6 - 25 mg/dL [facility] Creatinine 1.83(H) 0.80 - 1.30 mg/dL [facility] Glucose 87 70 - 199 mg/dL [facility] Comment: Interpretive Data Fasting glucose >/= 126 mg/dl is diagnostic for diabetes. Fasting is defined as no caloric intake for at least 8 hours. Fasting glucose between 100 mg/dl to 125 mg/dl is diagnostic of prediabetes. In a patient with classic symptoms of hyperglycemia or hyperglycemic crisis, a random glucose >/= 200 mg/dl is diagnostic for diabetes. In the absence of unequivocal hyperglycemia, results should be confirmed by repeat testing. The classification and Diagnosis of Diabetes Diabetes Care 202; 46: S19-S40. Current interpretive data was last revised 2022. Calcium 9.2 8.5 - 10.3 mg/dL [facility] Blood 10/19/2024 5:12 AM CDT 10/19/2024 5:20 AM CDT Namrata Vidya Spencer NP LAB BLOOD ORDERABLES Final Result LAURIE ROSALES [address] [place] [address] * (ABNORMAL) Troponin T high-sensitivity 6-hour (10/18/2024 4:32 PM CDT) Trop T hs 51(H) <=22 ng/L Comment: Interpretive Data For further hscTnT resources including the diagnostic algorithm and an aid in interpretation, copy and paste this link: [email or web address] Current Interpretive Data last revised 2020. Trop T hs delta 0 ng/L [facility] Trop T hs interp Insignificant [facility] Blood 10/18/2024 4:32 PM CDT 10/18/2024 4:41 PM CDT Zeke Correa DO LAB BLOOD ORDERABLES Final Res ult Performing Organization Address [facility] Co de Phone Number [facility] [address] [place] [address] * (ABNORMAL) Digoxin level (10/18/2024 4:32 PM CDT) Pathologist [facility] Digoxin 1.3(H) 0.5 - 1.2 ng/mL Comment: Interpretive data The therapeutic range for digoxin varies by indication: Heart failure: 0.5 to 0.8 ng/mL Atrial fibrillation: less than 1.2 ng/mL Toxicity: >2.4. Normal or low digoxin does not rule out toxicity. Current interpretive data was last revised on 2024. Blood 10/18/2024 4:32 PM CDT 10/18/2024 8:20 PM CDT Namrata Spencer [employer] LAB BLOOD ORDERABLES Final Result Performing Organization Address [facility]/ZIP Co de Phone Number LAURIE [address] [place] [address] * (ABNORMAL) Troponin T high-sensitivity 4-hour (10/18/2024 2:42 PM CDT) Pathologist [facility] Trop T hs 51(H) <=22 ng/L Comment: Interpretive Data For further hscTnT resources including the diagnostic algorithm and an aid in interpretation, copy and paste this link: [email or web address] Current Interpretive Data last revised 2020. Trop T hs delta 0 ng/L LAURIE ROSALES Trop T hs interp Insignificant LAURIE ROSALES Blood 10/18/2024 2:42 PM CDT 10/18/2024 2:50 PM CDT us Zeke Correa DO LAB BLOOD ORDERABLES Final Res ult LAURIE ROSALES [address] Department [place] [address] * CT Chest WO Contrast (10/18/2024 2:00 PM CDT) Anatomical Region Laterality Modality Body N/A Computed Tomogra phy 10/18/2024 3:00 PM CDT Impressions 10/18/2024 3:00 PM CDT 1. Moderately sized right pleural effusion with consolidations in the right upper, right lower, and right middle lobes suggestive of multifocal pneumonia. 2. Multiple left upper lobe pulmonary nodules largest measuring 1.1 cm. Short interval follow-up suggested. 3. Dilated main pulmonary artery suggestive of pulmonary arterial hypertension. 4. Severe centrilobular emphysematous changes. 5. Nonspecific mild gastric wall thickening may represent pseudo-thickening from underdistention versus gastritis. Electronically signed by: Rajendra Oh II, D.O. Narrative 10/18/2024 3:00 PM CDT EXAMINATION: Computed tomography of the chest without intravenous contrast HISTORY: Abnormal chest radiograph. TECHNIQUE: Transaxial computed tomographic images of the chest were obtained without intravenous contrast according to the standard protocol. COMPARISON: Chest radiograph dated same day. FINDINGS: There is a moderately sized right pleural effusion with fluid in the right major fissure and right upper, middle, and lower lobe consolidations most notable in the right lower lobe. Small left pleural effusion with left lower lobe atelectasis. Severe centrilobular emphysematous changes. Poststernotomy changes. Mild mediastinal lymphadenopathy with largest mediastinal node measuring 1.1 cm in short axis dimension. Nodules in the left upper lobe, largest measuring approximately 1.1 x 0.5 cm. Follow-up suggested. Main pulmonary artery is dilated consistent with pulmonary arterial hypertension. Pulmonary artery measures 3.6 cm. Aortic and coronary artery atherosclerosis. No acute osseous abnormality. No suspicious lytic or sclerotic lesions. Poststernotomy changes are demonstrated. Mild multilevel endplate changes in the visualized spine. Pacer leads are intact. Fat stranding surrounding both kidneys. Cholecystectomy. Simple cyst in the left hepatic lobe. Nonspecific mild gastric wall thickening may represent pseudo-thickening from underdistention versus gastritis. Procedure Note Rajendra Oh II, DO - 10/18/2024 EXAMINATION: Computed tomography of the chest without intravenous contrast HISTORY: Abnormal chest radiograph. TECHNIQUE: Transaxial computed tomographic images of the chest were obtained without intravenous contrast according to the standard protocol. COMPARISON: Chest radiograph dated same day. FINDINGS: There is a moderately sized right pleural effusion with fluid in the right major fissure and right upper, middle, and lower lobe consolidations most notable in the right lower lobe. Small left pleural effusion with left lower lobe atelectasis. Severe centrilobular emphysematous changes. Poststernotomy changes. Mild mediastinal lymphadenopathy with largest mediastinal node measuring 1.1 cm in short axis dimension. Nodules in the left upper lobe, largest measuring approximately 1.1 x 0.5 cm. Follow-up suggested. Main pulmonary artery is dilated consistent with pulmonary arterial hypertension. Pulmonary artery measures 3.6 cm. Aortic and coronary artery atherosclerosis. No acute osseous abnormality. No suspicious lytic or sclerotic lesions. Poststernotomy changes are demonstrated. Mild multilevel endplate changes in the visualized spine. Pacer leads are intact. Fat stranding surrounding both kidneys. Cholecystectomy. Simple cyst in the left hepatic lobe. Nonspecific mild gastric wall thickening may represent pseudo-thickening from underdistention versus gastritis. IMPRESSION: 1. Moderately sized right pleural effusion with consolidations in the right upper, right lower, and right middle lobes suggestive of multifocal pneumonia. 2. Multiple left upper lobe pulmonary nodules largest measuring 1.1 cm. Short interval follow-up suggested. 3. Dilated main pulmonary artery suggestive of pulmonary arterial hypertension. 4. Severe centrilobular emphysematous changes. 5. Nonspecific mild gastric wall thickening may represent pseudo-thickening from underdistention versus gastritis. Electronically signed by: Rajendra Oh II, D.O. us Zeke Correa DO IMG CT PROCEDURES Final Result * Blood culture Blood Peripheral (10/18/2024 1:28 PM CDT) Report Final Report: No growth Comment:Testing performed by : [facility], [address] [place]., [address] Blood (Peripheral) 10/18/2024 1:28 PM CDT 10/18/2024 5:03 PM CDT Ozzie LAURIE BOBBY - 10/23/2024 7:00 AM CDT From a different site than #1. Draw Blood cultures before administration of Antibiotics Collection->Peripheral 1. Blood cultures are incubated for 4 days on a continuously monitored blood culture system. The first report of a negative culture is issued within 24 hours of receipt of the specimen in the laboratory. 2. Positive culture results are reported as soon as they are detected. 3. The most important factor for detection of microbes in the setting of bloodstream infection is the volume of blood submitted for culture. Failure to collect an optimal blood volume can result in false negative blood cultures. 4. For pediatric patients, the recommended blood volume to collect follows a weight based strategy. See the electronic test catalog for collection instructions. 5. For positive blood cultures, a rapid molecular test may be performed for organism identification using the sho ePlex blood culture identification panel for gram positive (BCID-GP) and gram negative (BCID-GN) organisms. This nucleic acid amplification test detects microbial DNA in positive blood culture broth. This assay has been cleared by the [place] Food and Drug Administration and its performance characteristics have been verified by the [facility]. For questions about this culture, contact the Microbiology Laboratory at [phone]. Interpretive data was last revised on 24. us Zeke Correa DO LAB MICROBIOLOGY - GENERAL ORD ERABLES Final Result LAURIE ROSALES [address] Department [place] [address] * Blood culture Blood Peripheral (10/18/2024 1:28 PM CDT) Report Final Report: No growth Comment:Testing performed by : [facility], [address] [facility], [place]., [address] Blood (Peripheral) 10/18/2024 1:28 PM CDT 10/18/2024 5:03 PM CDT Ozzie LAURIE BOBBY - 10/23/2024 7:00 AM CDT Draw Blood cultures before administration of Antibiotics Collection->Peripheral 1. Blood cultures are incubated for 4 days on a continuously monitored blood culture system. The first report of a negative culture is issued within 24 hours of receipt of the specimen in the laboratory. 2. Positive culture results are reported as soon as they are detected. 3. The most important factor for detection of microbes in the setting of bloodstream infection is the volume of blood submitted for culture. Failure to collect an optimal blood volume can result in false negative blood cultures. 4. For pediatric patients, the recommended blood volume to collect follows a weight based strategy. See the electronic test catalog for collection instructions. 5. For positive blood cultures, a rapid molecular test may be performed for organism identification using the sho ePlex blood culture identification panel for gram positive (BCID-GP) and gram negative (BCID-GN) organisms. This nucleic acid amplification test detects microbial DNA in positive blood culture broth. This assay has been cleared by the [place] Food and Drug Administration and its performance characteristics have been verified by the [facility]. For questions about this culture, contact the Microbiology Laboratory at [phone]. Interpretive data was last revised on 24. us Zeke Correa DO LAB MICROBIOLOGY - GENERAL ORD ERABLES Final Result LAURIE ROSALES [address] Department [place] [address] * (ABNORMAL) Troponin T high-sensitivity 2-hour (10/18/2024 12:26 PM CDT) Trop T hs 54(H) <=22 ng/L Comment: Interpretive Data For further hscTnT resources including the diagnostic algorithm and an aid in interpretation, copy and paste this link: https://nrl.testcatalog.org/show/hsTrop Current Interpretive Data last revised 2020. Trop T hs delta 3 ng/L BRYNYEE Trop T hs interp Insignificant BRYNYEE ROSALES Blood 10/18/2024 12:2 6 PM CDT 10/18/2024 12:26 PM CDT us Zeke GLexi Correa DO LAB BLOOD ORDERABLES Final Res ult LAURIE RSOALES [address] Department [place] [address] * (ABNORMAL) Pro B-type natriuretic peptide (10/18/2024 12:26 PM CDT) NT-proBNP 8,636(H) <=450 pg/mL Comment: Interpretive Comments: A. Dyspnea in Acute Care Setting All Ages: < 300 pg/ml, acute heart failure unlikely. < 50 yrs: 300 - 450 pg/ml, further investigation warranted. > 450 pg/ml, acute heart failure likely. 50 - 74 yrs: 300 - 900 pg/ml, further investigation warranted. > 900 pg/ml, acute heart failure likely . > or = 75 yrs: 450 - 1800 pg/ml, further investigation warranted. > 1800 pg/ml, acute heart failure likely. B. Non-acute Setting < 75 yrs < 125 pg/ml, rules out heart failure. > or = 125 pg/ml, further investigation warranted. > or = 75 yrs < 450 pg/ml, rules out heart failure. > or = 450 pg/ml, further investigation warranted. - Knowledge of each individual patient's NT-proBNP range may be more useful than using similar cut-points for every patient. Please note that marked elevations in NT-proBNP levels may be observed in state other than Left Ventricular Congestive Failure, including: acute coronary syndromes, right heart strain/failure (including pulmonary embolism and cor pulmonale), critical illness, renal failure, as well as advanced age. - References: 1. Pedro CUEVAS et.al. Eur Heart J. 2006:27:330-337. 2. Daryl RW, Florecita AM. J. AM Roger Cardiol: Cardiovasc Imag. 2009;2: 216- 225. Interpretive Data Last Revised Date: 2018. Blood 10/18/2024 12:2 6 PM CDT 10/18/2024 1:15 PM CDT us Zeke AlfredoLexi Correa DO LAB BLOOD ORDERABLES Final Res ult LAURIE ROSALES [address] Department [place] [address] * XR Chest 1 Vw Portable (10/18/2024 12:12 PM CDT) Anatomical Region Laterality Modality Body, Chest N/A Computed Radiogr aphy 10/18/2024 12:4 4 PM CDT Impressions 10/18/2024 12:44 PM CDT ICD leads are intact. Post sternotomy changes are noted. Cardiac mediastinal silhouette within normal limits. There is a small right pleural effusion. Opacities in the right lower lobe suggestive of pneumonia, increased from prior. Follow-up suggested to ensure resolution. No acute osseous abnormality. Electronically signed by: Rajendra Oh II, D.O. Narrative 10/18/2024 12:44 PM CDT EXAMINATION: XR CHEST 1 VIEW DATE: 10/18/2024 11:20 AM INDICATION: Shortness of breath. COMPARISON: 02/23/2023. Procedure Note Rajendra Oh II, DO - 10/18/2024 EXAMINATION: XR CHEST 1 VIEW DATE: 10/18/2024 11:20 AM INDICATION: Shortness of breath. COMPARISON: 02/23/2023. IMPRESSION: ICD leads are intact. Post sternotomy changes are noted. Cardiac mediastinal silhouette within normal limits. There is a small right pleural effusion. Opacities in the right lower lobe suggestive of pneumonia, increased from prior. Follow-up suggested to ensure resolution. No acute osseous abnormality. Electronically signed by: Rajendra Oh II, D.O. Rajendra HURTADO IMG XR PROCEDURES Final Re sult * (ABNORMAL) Troponin T high-sensitivity series (baseline, 2hr, 4hr, 6hr) (10/18/2024 10:41 AM CDT) Trop T hs 51(H) <=22 ng/L Comment: Interpretive Data For further hscTnT resources including the diagnostic algorithm and an aid in interpretation, copy and paste this link: https://nrl.testcatalog.org/show/hsTrop Current Interpretive Data last revised 2020. Blood 10/18/2024 10:4 1 AM CDT 10/18/2024 10:56 AM CDT Zeke Correa DO LAB BLOOD ORDERABLES Edited Re sult - Final BRYNYEE ROSALES [address] [place] [address] * Lactate (10/18/2024 10:41 AM CDT) Pathologist [facility] Lactate 1.3 0.7 - 2.0 mmol/L Blood 10/18/2024 10:4 1 AM CDT 10/18/2024 10:49 AM CDT Zeke Correa DO LAB BLOOD ORDERABLES Final Res ult Performing Organization Address City/[facility]/ZIP Co de Phone Number BRYNYEE ROSALES [address] [place] [address] * (ABNORMAL) eGFR (10/18/2024 10:41 AM CDT) Pathologist [facility] eGFR 42(L) >=60 mL/min/1. 73 m2 Comment: Interpretive Data Reference Interval Normal >/= 90 mL/min/1.73m2 Mildly decreased* 60 - 89 mL/min/1.73m2 Mildly to moderately decreased 45 - 59 mL/min/1.73m2 Moderately to severely decreased 30 - 44 mL/min/1.73m2 Severely decreased 15 - 29 mL/min/1.73m2 Kidney Failure < 15 mL/min/1.73m2 *Relative to young adult level Estimated glomerular filtration rate is determined by the 2020 CKD-EPI equation recommended by the National Kidney Foundation (A Unifying Approach to GFR Estimation: Recommendations of the NKF-ASK Task Force on Reassessing the Inclusion of Race in Diagnosing Kidney Disease, JASN 2020). The CKD-EPI equation should not be used for patients with unstable renal function and has not been validated in children and those over 70. Current interpretive data was last reviewed 2021. Blood 10/18/2024 10:4 1 AM CDT 10/18/2024 10:56 AM CDT us Zeke Correa DO LAB BLOOD ORDERABLES Final Res ult [facility] [address] Department [place] [address] * Differential, auto (10/18/2024 10:41 AM CDT) Neutrophil abs 3.39 1.50 - 6.50 K/cumm Imm gran abs 0.01 0.00 - 0.10 K/cumm [facility] Lymphocyte abs 0.86 0.80 - 3.30 K/cumm [facility] Monocyte abs 0.44 0.20 - 0.80 K/cumm [facility] Eosinophil abs 0.03 0.00 - 0.50 K/cumm [facility] Basophil abs 0.02 0.00 - 0.10 K/cumm [facility] Neutrophil pct 71.4 % [facility] Comment: Interpretive Data Percent cell count reference ranges are not reported, since discordance with absolute values may lead to misinterpretation of CBC data. Current Interpretive Data was last revised on 2017. Imm gran pct 0.2 % [facility] Comment: Interpretive Data Percent cell count reference ranges are not reported, since discordance with absolute values may lead to misinterpretation of CBC data. Current Interpretive Data was last revised on 2017. Lymphocyte pct 18.1 % [facility] Comment: Interpretive Data Percent cell count reference ranges are not reported, since discordance with absolute values may lead to misinterpretation of CBC data. Current Interpretive Data was last revised on 2017. Monocyte pct 9.3 % [facility] Comment: Interpretive Data Percent cell count reference ranges are not reported, since discordance with absolute values may lead to misinterpretation of CBC data. Current Interpretive Data was last revised on 2017. Eosinophil pct 0.6 % [facility] Comment: Interpretive Data Percent cell count reference ranges are not reported, since discordance with absolute values may lead to misinterpretation of CBC data. Current Interpretive Data was last revised on 2017. Basophil pct 0.4 % [facility] Comment: Interpretive Data Percent cell count reference ranges are not reported, since discordance with absolute values may lead to misinterpretation of CBC data. Current Interpretive Data was last revised on 2017. Blood 10/18/2024 10:4 1 AM CDT 10/18/2024 10:56 AM CDT us Zeke Correa DO LAB BLOOD ORDERABLES Final Res ult [facility] [address] Department [place] [address] * Respiratory pathogen panel Nasopharyngeal (10/18/2024 10:41 AM CDT) Pathologist [facility] Influenza A RNA Not Detected Not Detected Influenza B RNA Not Detected Not Detected [facility] RSV RNA Not Detected Not Detected [facility] COVID-19 RNA Not Detected Not Detected [facility] Coronavirus 229E RNA Not Detected Not Detected [facility] Coronavirus HKU1 RNA Not Detected Not Detected [facility] Coronavirus NL63 RNA Not Detected Not Detected [facility] Coronavirus OC43 RNA Not Detected Not Detected [facility] Adenovirus DNA Not Detected Not Detected [facility] Metapneumovirus RNA Not Detected Not Detected [facility] Rhinovirus/Enterov irus RNA Not Detected Not Detected [facility] Parainfluenza 1 RNA Not Detected Not Detected [facility] Parainfluenza 2 RNA Not Detected Not Detected [facility] Parainfluenza 3 RNA Not Detected Not Detected [facility] Parainfluenza 4 RNA Not Detected Not Detected [facility] B. pertussis DNA Not Detected Not Detected [facility] B. parapertussis DNA Not Detected Not Detected [facility] C. pneumoniae DNA Not Detected Not Detected [facility] M. pneumoniae DNA Not Detected Not Detected [facility] Comment: Interpretive Data The [employer] FilmArray Respiratory Panel (RP2.1) assay is a multiplexed real-time PCR based nucleic acid test capable of simultaneous qualitative detection and identification of multiple respiratory viral and bacterial nucleic acids, including SARS Coronavirus 2 (the causative agent of COVID-19). The following bacteria, viruses and virus subtypes can be identified using the FilmArray RP2.1 assay: Bordetella pertussis, Bordetella parapertussis, Chlamydia pneumoniae, Mycoplasma pneumoniae, Adenovirus, SARS Coronavirus 2, seasonal coronaviruses (Coronavirus HKU1, Coronavirus NL63, Coronavirus 229E, and Coronavirus OC43), Influenza A, Influenza A subtype H1, Influenza A subtype H3, Influenza A subtype 2009 H1, Influenza B, Metapneumovirus, Parainfluenza 1, Parainfluenza 2, Parainfluenza 3, Parainfluenza 4, RSV, Rhinovirus/Enterovirus. Due to the genetic similarity between human Rhinovirus and Enterovirus, the FilmArray RP2.1 assay cannot reliably differentiate them. Coronavirus OC43 may cross-react with some isolates of Coronavirus HKU1. A dual positive result may be due to cross-reactivity or may indicate a co- infection. The detection and identification of specific viral and bacterial nucleic acids from individuals exhibiting signs and symptoms of a respiratory infection aids in the diagnosis of respiratory infection if used in conjunction with other clinical and epidemiological information. The results of this test should not be used as the sole basis for diagnosis, treatment, or other management decisions. Negative results in the setting of a respiratory illness may be due to infection with pathogens that are not detected by this test. Positive results do not rule out infection/co-infection with other organisms. The agent(s) detected by the FilmArray RP2.1 may not be the definite cause of disease. Additional testing (lab, imaging, etc.) may be necessary when evaluating a patient with possible respiratory tract infection. The FilmArray RP2.1 assay has FDA clearance for testing of GUIDE DOG MOBILITY INSTRUCTOR swabs. The performance characteristics of this assay have been determined by [facility]. Current interpretive data was last revised on 2020. Nasopharyngeal 10/18/2024 10 :41 AM CDT 10/18/2024 10:53 AM CDT Narrative [facility] - 10/18/2024 12:10 PM CDT Is the Patient experiencing symptoms consistent with COVID?->Yes Surveillance testing for transplant patient?->No Zeke Correa DO LAB MICROBIOLOGY - GENERAL ORD ERABLES Final Result Performing Organization Address [facility]/ZIP Co de Phone Number LAURIE ROSALES [address] [place] [address] CH * (ABNORMAL) CBC with auto differential (10/18/2024 10:41 AM CDT) WBC 4.75 3.80 - 9.90 K/cumm Hgb 15.5 13.0 - 17.5 g/dL [facility] Hct 47.4 38.9 - 50.3 % [facility] Plt 132(L) 150 - 400 K/cumm [facility] MPV 12.2 9.1 - 12.3 fL [facility] RBC 4.95 4.30 - 5.80 M/cumm [facility] MCV 95.8 81.3 - 96.4 fL [facility] MCH 31.3 27.1 - 33.3 pg [facility] MCHC 32.7 32.3 - 35.7 g/dL [facility] RDW CV 17.1(H) 11.1 - 14.9 % [facility] RDW SD 59.9(H) 35.7 - 48.1 fL [facility] NRBC abs 0.00 0.00 - 0.01 K/cumm [facility] Blood 10/18/2024 10:4 1 AM CDT 10/18/2024 10:56 AM CDT Zeke Correa DO LAB BLOOD ORDERABLES Final Res ult Performing Organization Address City/[facility]/ZIP Co de Phone Number LAURIE ROSALES [address] [place] [address] * (ABNORMAL) Comprehensive metabolic panel (10/18/2024 10:41 AM CDT) Sodium 132(L) 135 - 145 mmol/L Potassium, pl 5.0(H) 3.3 - 4.9 mmol/L [facility] Chloride 97 97 - 110 mmol/L [facility] CO2 28 22 - 32 mmol/L [facility] Anion gap 7 2 - 15 mmol/L [facility] BUN 29(H) 6 - 25 mg/dL [facility] Creatinine 1.62(H) 0.80 - 1.30 mg/dL [facility] Comment:Icteric sample, test results may be affected. Glucose 90 70 - 199 mg/dL [facility] Comment: Interpretive Data Fasting glucose >/= 126 mg/dl is diagnostic for diabetes. Fasting is defined as no caloric intake for at least 8 hours. Fasting glucose between 100 mg/dl to 125 mg/dl is diagnostic of prediabetes. In a patient with classic symptoms of hyperglycemia or hyperglycemic crisis, a random glucose >/= 200 mg/dl is diagnostic for diabetes. In the absence of unequivocal hyperglycemia, results should be confirmed by repeat testing. The classification and Diagnosis of Diabetes Diabetes Care 2021; 46: S19-S40. Current interpretive data was last revised 2022. Calcium 9.6 8.5 - 10.3 mg/dL [facility] Bilirubin, total 2.1(H) 0.1 - 1.2 mg/dL [facility] Protein, pl 6.3(L) 6.5 - 8.5 g/dL [facility] Albumin 3.5 3.5 - 5.0 g/dL [facility] Alk phos 52 40 - 130 Units/L [facility] ALT 15 7 - 55 Units/L [facility] AST 41 10 - 50 Units/L [facility] Blood 10/18/2024 10:4 1 AM CDT 10/18/2024 10:56 AM CDT us Zeke Correa DO LAB BLOOD ORDERABLES Final Res ult LAURIE [address] Department [place] [address] * ECG 12 lead (10/18/2024 10:33 AM CDT) 10/18/2024 10:3 3 AM CDT Narrative [facility] - 10/18/2024 2:59 PM CDT Vent Rate: 80 bpm RR Interval: 749 msec [place] Interval: 140 msec QRS Duration: 164 msec QT Interval: 377 msec QTC Interval: 412 msec P-R-T Eunice: -52 - 226 - 226 degrees IMPRESSION: ELECTRONIC VENTRICULAR PACEMAKER ST DEPRESSION, CONSIDER SUBENDOCARDIAL INJURY [0.1+ mV ST DEPRESSION] ABNORMAL ECG No change compared to prior EKG Electronically Signed By: Emilio Ratliff MD B us Zeke Correa DO ECG ORDERABLES Final Result [facility] from Last 3 Months Insurance MEDICARE BLUE CROSS MEDICARE SUPPLEMENT [facility] MEDICARE [facility] MEDICARE Advance Directives For more information, please contact: [phone] Documents on File Type Date Recorded Patient Business Test Analyst Expl anation ADVANCE DIRECTIVE 02/25/2023 4:32 PM HOLLAND GIBSON * LIMITED - No CPR (Latest Code Status on File) Date Activated Date Inactivated Comments 10/20/2024 3:29 PM 11/03/2024 7:46 PM Question Answer Comments Provide aggressive medical m anagement before a full cardiopulmonary arrest occurs. Use antibiotics, IV Fluids, and medical treatment unless specifically selected below: No intubation * Full Code Date Activated Date Inactivated Comments 10/18/2024 5:29 PM 10/20/2024 3:29 PM * Full Code Date Activated Date Inactivated Comments 02/23/2023 5:03 PM 02/24/2023 6:21 PM Care Teams Manager Product Support Relationship Specialty Start Date End Date Sharita Kelly MD [address] [place] [address] PCP - General Family Medicine 02/24/23 Donte Camacho MD [address] [place] [address] Consulting Physician Cardiology 02/24/23 Delvin Mendenhall MD [address] [place] [address] Consulting Physician Nephrology 02/24/23 [place] [address] [facility] [address] [place] [address] Consulting Physician Pulmonary Disease 11/03/24 Lorie Murray, GUIDE DOG MOBILITY INSTRUCTOR [address] [facility] [address] [place] [address] Nurse Practitioner Urology 11/03/24
--- OUTSIDE RECORDS SUMMARY | 2024-11-04 07:59 | XMS_ITS | Encounter Summary ---
Author Organization [facility] Healthcare Address [address] [place] [address] Care Team Providers Care Front End Mechanic Name Role Phone Sofie Kelly MD Primary Care Provider Donte Camacho MD Unavailable [phone] Delvin Mendenhall MD Unavailable [phone] Shailesh Pabon MD Unavailable [phone] Rhoda Lacy NP Unavailable [phone] Reason for Referral * Home Health (Routine) - Pending Review Specialty Diagnoses / Procedures Referred By Contemeli t Referred To Contact Home Health Services / Home Health and Hospice Diagnoses Acute congestive heart failure, unspecified heart failure type ([place]) [place] [address] [facility] [address] [place] [address] Phone: tel: fax: [facility] Home Care Services [facility] [address] [place] [address] Referral ID Status Reason Start Date Expiration Date Visits Requested Visits Authorized [id number] Pending Review Specialty Services Required 10/27/2024 11/26/2025 1 1 Question Answer [id number] Home Health Primary disciplines requested: Senior Care, Physical Therapy Secondary disciplines requested: Occupational Therapy Home Health Services Therapy to Eval/Tx, Disease and Medication Management Therapy instructions: ADL/ ladl management, Evaluation/treatment Requested Start of Care Date: 24-48 hours Physician to follow patient's care (the person listed here will be responsible for signing ongoing orders): PCP I attest that I or another qualified licensed provider saw the patient 90 days prior to or 30 days post admission and this face to face encounter meets the necessary Home Health requirements. The face to face encounter occurred on (date): 10/27/2024 The encounter with the patient was in whole, or in part, for the following medical condition, which is the primary reason for home health care. (List medical condition): Acute congestive heart failure, unspecified heart failure type I certify that, based on my findings, the following services are medically necessary skilled home health services: Therapy to Eval/Tx Clinical findings that support the need for home care: Medical condition requiring skilled assessment/education, Lack of knowledge regarding medications, requires education and assessment I certify that my clinical findings support patient's homebound status. Homebound criteria met because: Poor endurance, Requires assistance of another to leave home safely, Requires a taxing effort to leave the home safely Reason for Visit * Reason Comments Shortness of Breath * Auth/Cert (Routine) Specialty Diagnoses / Procedures Referred By Frank t Referred To Contact Diagnoses Pneumonia of right lung due to infectious organism, unspecified part of lung Chronic kidney disease, unspecified CKD stage Acute congestive heart failure, unspecified heart failure type (HCC) Procedures na Referral ID Status Reason Start Date Expiration Date Visits Re quested Visits Authorized [id number] 1 1 Encounter Details Date Type Department Care Team (Late st Contact Info) Description 10/18/2024 10:28 AM CDT - 11/03/2024 3:41 PM CDT Hospital Encounter [facility] On[facility] [address] [place] [address] [place] [address] [facility] [place] [address] [place] [id number] [facility] [address] [place] [address] [place] [id number] [place], [place] [id number] [place] [address] [place], [place] [id number] [place] [address] [place], [place] [id number] Acute congestive heart failure, unspecified heart failure type (HCC) (Primary Dx); Chronic kidney disease, unspecified CKD stage; Pneumonia of right lung due to infectious organism, unspecified part of lung; Acute hypoxemic respiratory failure (HCC) Discharge Disposition: Discharge to SNF Social History Tobacco Use Types Packs/Day Years Used Date Smoking Tobacco: Former Cigarettes 1997 Passive Smoke Exposure: Past Smokeless Tobacco: Never payever Answer Date Recorded In the past 12 months has [employer], oil, or water [employer] threatened to shut off services in your [...] week 10/19/2024 How often do you attend [facility] or rastafarian services? More than 4 times per year 10/19/2024 Do you belong to any clubs o r organizations such as buddhist groups, unions, fraternal or athletic groups, or [...] you are drinking? Patient does not drink 10/02/202 3 Frequency of Binge Drinking Not on file 06/2022 Overall Financial Resource Strain (CARDIA) Answe [...] place to sleep or slept in a alf (including now)? No 02/24/2023 Housing Stability Vital Sign Answer Carmine e Recorded In the last 12 months, was t here a time when you were not able to pay the mortgage or rent on time? No 10/19/2024 In the past 12 months, how m any times have you moved where you were living? 0 10/19/2024 At any time in the past 12 m [facility], were you homeless or living in a alf (including now)? No 10/19/2024 Personal Safety Answer Date Recorded Have you ever been in or are you currently in a harmful physical or emotional relationship or is someone making you feel afraid or unsafe? 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 Gender Identity Not on file Sexual Orientation Not on file documented as of this encounter Last Filed Vital Signs Vital Sign Reading [...] Mass Index 30.1 10/31/2024 3:08 PM CDT documented in this encounter Discharge Summaries * Luan Guillermo DO - 11/03/2024 12:30 PM CDT Inpatient Discharge Summary BRIEF OVERVIEW Admitting Provider: Souleymane Quinn MD Discharge Provider: Luan Guillermo DO Primary Care Physician at Discharge: Sofie Kelly MD [phone] Admission Date: 10/18/2024 Discharge Date: 11/03/2024 Admission Location: [facility] Problems/Diagnoses: Principal Problem: Acute congestive heart failure, unspecified heart failure type (HCC) Resolved Problems: No resolved hospital problems. DETAILS OF HOSPITAL STAY Presenting Problem/History of Present Illness: HPI as per admitting service - Namrata Spencer NP 10/18/24 Patient is a 84 y.o. 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 Patient reports shortness of breath started 7 days ago and progressively got worse. EMS was called for further evaluation. On EMS arrival, patient was noted to be satting in the 70s on room air. 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 Patient also endorses poor appetite associated with generalized weakness. Ambulates with a cane at baseline. Also reports occasional productive cough with clear phlegm. Denies any other associated symptoms. Reports compliance with his home medications. On arrival to Emergency Room, vital signs, temp 97.6??, pulse 80, respiration 24, BP 121/81, O2 sats 99%. Labs, sodium 132, potassium 5.0, creatinine 1.62, BUN 29, proBNP 8,636, PLT 132. Initial troponin slightly elevated with insignificant delta.Paced rhythm on EKG. Respiratory panel negative. CT chest showing moderately sized right pleural effusion with consolidation in the right upper, right lower and right middle lobe suggestive of multifocal pneumonia. Multiple left upper lobe pulmonary nodules. Dilated main pulmonary artery suggestive of pulmonary arterial hypertension. Severe centrilobular emphysema toes changes. Nonspecific mild gastric wall thickening may represent pseudo thickening from under distention versus gastritis. Due to above, patient will be admitted for further evaluation, care and management. Hospital Course: Patient was admitted to the Internal Medicine Service where he was also seen by inpatient pulmonology, Cardiology, Urology, Nephrology. Patient was admitted to the hospital due to complaints of hypoxia. Patient was placed on oxygen at time of admission requiring frequent titration through the course of his hospitalization. Patient was noted to have a moderately sized right pleural effusion. Patient was placed on antibiotics for the course of his hospitalization as recommended by pulmonology. Hewill be on oral antibiotics at time of discharge as well. Patient with a known history of heart failure found to have an initial BNP of 8600. Cardiology followed and help to adjust his medications. During his hospitalization he developed urine retention for which Guerrero catheters were placed subsequently developing hematuria. Urology was consulted and attempted to wean patient from the Guerrero however he continued to have recurrent retention. Patient is going to be discharged with a Guerrero catheterin place and he will need to follow up with the urologist as an outpatient to discuss further planning. Patient remains on oxygen at this time and he will continue on the oxygen when he gets to the [facility] facility. Continue to work to weaned down as able. Patient did have some evidence of o rthostatic hypotension and was placed on midodrine therapy. At this time, patient is on 2 L nasal cannula and he appears to be comfortable. He will need to follow up with his primary care physician, night supervisor, urologist and lace mender ideally in the next 2-4 weeks. Patient is being dischargedto [facility] facility I selected by the family. Family was at bedside at time of discharge and all questions were answered. Hypervolemic Hyponatremia: Possibly due to primary polydipsia. Resolved. Continue fluid restrictionfor now. Sodium 135 - continue to monitor. Acute hypoxic respiratory failure on admission. Differential includes CHF exacerbation, pneumonia. Currently on 2L NC - titrate as able. CXR - Persistent right effusion with patchy right lower lobe consolidation. 10/24: Repeat x-ray showing pulmonary vascular congestion right lower lobe infiltrate. Home O2 evaluation completed 10/28. Patient requiring 3 L with rest, 6 L with ambulation. Repeat home oxygen assessment in anticipation of Discharge. Heart failure with reduced EF, acute on chronic: Initial BNP 8636. 2D echo performed- EF 37%, Mod-Severe pulmonary htn, Diastolic dysfunction present. Received IV lasix. Continue atenolol. Cardiologyservice consulted. Moderate to severe pulmonary hypertension Moderately sized right pleural effusion with consolidations in the right upper, right lower, and right middle lobes suggestive of multifocal pneumonia, on admission CT. Respiratory PCR negative. Blood cultures NGTD. Strep pneumoniae and Legionella antigens are negative. Was on azithromycin, Rocephin starting on 10/18/2024; on 10/19/2024 Rocephin was changed to Unasyn - continue unasyn. Per pulmonology, thoracentes no longer needed at this time - coumadin resumed.repeat CXR PVC, RLL infiltrate. Will need repeat imaging in 4-6 weeks otherwise. Plan for 3-4 weeks of total antibiotics as per pulmonology Multiple left upper lobe pulmonary nodules largest measuring 1.1 cm, on admission CT. Dilated main pulmonary artery suggestive of pulmonary arterial hypertension, on admission CT. Severe centrilobular emphysematous changes, on admission CT. Nonspecific mild gastric wall thickening may represent pseudo-thickening from underdistention versus gastritis, on admission CT. On PPI. Atrial fibrillation, currently paced. Previously on digoxin. Now On Tikosyn. Coumadin resumed. Monitor INR Hyperlipidemia: Continue atorvastatin Hypothyroidism: Synthroid. Hypophosphatemia: Replace phosphate. Recheck in a.m.. CAD. S/p coronary artery bypass graft x two - left internal mammary artery to the left anterior descending, left radial artery to the posterior descending artery, on 02/24/1997. History of VT, status post ablation on 12/31/2015, 04/08/2016 EP study. Hypotension - improved with midodrine Right Kidney Mass - US retroperitoneum - Right kidney mass up to 1.4 cm - MRI recommended, patient with defibrillator - not able to obtain an MRI. Urine retention - Guerrero catheter in place. Tamsulosin initiated. Urology following voiding trial- failed. Urology recommending continued guerrero care - will need to follow up with outpatient urology Gross Hematuria: likely 2/2 trauma from guerrero insertion + being on blood thinners. Urology consulted. Held warfarin, now resumed. Resolved but reoccurred 10/30. Appears to be clearing today. Monitor H&H. Constipation -continue laxatives. ROSA on CKD: Monitor renal function. Avoid nephrotoxic agents. Nephrology consulted. Thrombocytopenia : Stable. Monitor Nonspecific troponin elevation PT and OT as tolerated DVT prophylaxis: Coumadin Urology recommendations Patient has been on tamsulosin once daily. He failed a trial of void 4-5 days ago. Recommend to maintain indwelling Guerrero catheter and continue to provide catheter care. Patient should be discharged home with a Guerrero catheter. He is not a candidate to undergo general anesthesia for cystoscopy, TURPor open simple prostatectomy at this time. He will require routine catheter changes every 4 weeks. His catheter is could be changed in my outpatient Urology Clinic or home health nurse or a [facility] facility. Patient's family or POA can call [phone] to schedule a monthly catheter change. No urological interventions are recommended during this admission. Urology to sign off. Pulmonology recommendations Acute hypoxic respiratory insufficiency Severe emphysema RLL cavitary lesion: pneumonia vs malignancy vs bullous disease B effusions, R>L, likely due to CHF, parapneumonic also possible; persistent but clinically doesnot appear infected and does have ongoing volume overload Afib CHF CKD CAD w hx CABG Hyponatremia; improved Recs: - Wean supplemental O2 for SpO2 88-92% - Nebs TID - Unasyn day 16, completed azithromycin. Given cavitary lesion would continue augmentin at discharge for total treatment period of 3-4 weeks. - if signs ongoing infection would need thoracentesis; for now favor monitoring given likely CHF and anticoagulation - Will need repeat CT chest imaging in 4-6 weeks - nephrology following - O2 assessment prior to d/c -dispo planning in progress Cardiology recommendations The patient was examined in room 420. He is resting comfortably in bed Aware he is getting ready to go to [facility] rehab facility. It is okay to discharge patient cardiology standpoint on current cardiac medications. Acute hypoxemic respiratory failure Likely 2/2 CHF exacerbation/pneumonia Dyspnea with hypoxemia appears to be improved -Pulmonary following Acute on chronic systolic HF -proBNP 8,636 on admission, 3978 on 10/31/2024 -Pleural effusion on the CT -Diuretic management per nephrology. Monitor renal function and lytes,I/o's -Continue atenolol Ischemic cardiomyopathy -S/p BIV ICD implantation History of V-tach Atrial fibrillation -S/p AV ruby ablation; paced rhythm on EKG with underlying AFib -Continue Tikosyn and atenolol -Warfarin dosing per pharmacy -Keep K>/4,mag>/2 CAD -S/p CABG -stable with no angina -Continue ASA, statins Hypertension -Bp stable/controlled Hyperlipidemia -Continue statin Hypothyroidism -Continue levothyroxine CKD clinically stable-Nephrology is following Protein malnutrition phosphorus is 24 will defer management to primary care team Hyponatremia -sodium is totally normal after giving the talvaptan. No need for talvaptan any more. No Lasix today unless Nephrology orders Nephrology recommendations IV diuresis. CKD washburn. Overall improved. -10/20, BP low, start midodrine, IV ABX, decrease diuresis, CT scan kidneys. -10/21, urinary retention, ROSA worse, guerrero placed, will follow, CT scan to be reviewed. -10/22, CT scan kidneys shows exophytic cysts, will do MRI as o/p, continue guerrero, ROSA better, good UO, no new changes, difficult guerrero yesterday. -Cr 1.7 and baseline, dyspnea better, gross hematuria, difficult guerrero, traumatic hematuria, Needs CBI, will reconsult Urology. -cr is baseline, guerrero irrigation, likely needs thoracentesis, for both diagnostic and therapeutic purposes, avss, lytes stable. -CR is stable, cxr better, can switch to po diuretics tomorrow. -stable labs, BP soft, OT/PT, CMR eval, same tx, hold diuresis, po midodrine, continue guerrero, will retain on IP dc. Renal mass will be evaluated as o/p. -Start normotonic IVF, tolvaptan will not work in most cases with met alkalosis, he has some edema but that seems like third spacing, long d/w family, they want SNF and can't take care of him at home. -Critical hyponattremia possibly from excessive PO free water intake, Lasix iv times 1, tolvaptan 15 mg daily for 2 days, Rehab eval, d/w family and Dr Gillespie via text. -Na 123, still critical but better, po FR, loop diuresis carefully, DC IVF, Tolvaptan daily times 2, d/w family. -Na 135, as above, replace guerrero, traumatic hematuria is to be expected. -Na 130, DC IVF, guerrero now draining clear urine, will follow. Total discharge time 44 minutes Active Issues Requiring Follow-up: Test Results Pending at Discharge: Operative Procedures Performed: Other Procedures: EXAMINATION: CT ABDOMEN PELVIS WO CONTRAST DATE: [...] abdominal aortic aneurysm status post aortobiiliac bypass. EXAMINATION: Computed tomography of the chest without [...] may represent pseudo-thickening from underdistention versus gastritis. Pertinent Test Results: Recent Labs Lab Units 11/03/2462711/02/24 0711/01/24 0400 WBC K/cumm 3.95 4.11 2.97* HEMOGLOBIN g/dL 12.0* 12.2* 12.1* HEMATOCRIT % 36.4* 36.7* 36.3* PLATELETS K/cumm 143* 147* 133* Recent Labs Lab Units 11/03/2462711/02/24 0724 11/01/24 0400 SODIUM mmol/L 133* 135 137 POTASSIUM PLASMA mmol/L 3.6 3.7 3.4 CHLORIDE mmol/L 94* 96* 96* CO2 mmol/L 31 32 35* ANIONGAP mmol/L 8 7 6 GLUCOSE mg/dL 118 119 92 BUN SERUM mg/dL 25 29* 34* CREATININE mg/dL 1.22 1.27 1.37* CALCIUM mg/dL 8.1* 8.4* 8.4* ALBUMIN g/dL 2.8* 2.9* 2.8* Discharge Details Physical Exam at Discharge: Discharge Condition: fair Pulse: 80 Resp: 17 BP: 121/80 Temp: 36.3 ??C (97.3 ??F) Weight: 87.2 kg (192 lb 3.9 oz) Pertinent Exam Findings at Discharge: Gen: In no apparent distress Neuro: Alert, oriented in time place and person. Pulmonary: Not dyspneic. Fine basal crackles Cardiovascular: HS 1, 2 . regular rhythm. No murmurs heard. Moderate bilateral pitting lower extremity edema. : Guerrero catheter in place with bloody urine Discharge Disposition: Patient will be discharged to:SNF (skilled care) Code Status at Discharge: DNR/DNI Discharge Instructions: Antibiotics for 2 additional weeks p.o.. Continue oxygen and titrate as able Follow-up with primary care, pulmonology, Urology and Nephrology Activity Instructions Discharge activity: Resume normal activity Diet Instructions Dietitian recommends a low sodium diet on discharge. Limit sodium to 2,000 mg daily (500-700 mg per meal), and do not add salt to your food. Avoid foodsthat are high sources of sodium, such as fast foods, fried/breaded foods, canned goods, deli meats and gravies/sauces. -Otherwise, eat a variety of healthy foods from all the food groups. Eat fruits, vegetables, whole grains, and fat-free or low-fat dairy foods. Whole grains include whole-wheat breads, cereals, pasta, and brown rice. Choose lean meats, poultry (chicken and turkey), fish, beans, eggs, and nuts. A healthy meal plan is low in unhealthy fats, salt, and added sugar. Healthy fats include olive oil and canola oil. Recommend to avoid sugary drinks like lemonade, regular soda, gatorade, and sweet tea. Additional resources are available online from the Academy of Nutrition and Dietetics at www.eatright.org Discuss with your physician if you should continue to follow a fluid restriction. As of 10/31/24, a 2000 mL (or 2 liters) fluid restriction was ordered. Please call the dietitian's office at [phone] if you have questions about nutrition. If you would like to see our outpatient dietitian please have your physician fax a referral to [phone], and you may call [phone] to make an appointment. For any other questions you can call and ask to be connected to the floor that you were discharged from. Other Instructions Ambulatory referral to Home Health Service Line: Home Health Primary disciplines requested: Senior Care Physical Therapy Secondary disciplines requested: Occupational Therapy Home Health Services: Therapy to Eval/Tx Disease and Medication Management Therapy instructions: ADL/ ladl management Evaluation/treatment Requested Start of Care Date: 24-48 hours Physician to follow patient's care (the person listed here will be responsible for signing ongoing orders): PCP I attest that I or another qualified licensed provider saw the patient 90 days prior to or 30 days post admission and this face to face encounter meets the necessary Home Health requirements. The face to face encounter occurred on (date): 10/27/2024 The encounter with the patient was in whole, or in part, for the following medical condition, whichis the primary reason for home health care. (List medical condition): Acute congestive heart failure, unspecified heart failure type I certify that, based on my findings, the following services are medically necessary skilled home health services: Therapy to Eval/Tx Clinical findings that support the need for home care: Medical condition requiring skilled assessment/education Lack of knowledge regarding medications, requires education and assessment I certify that my clinical findings support patient's homebound status. Homebound criteria met because: Poor endurance Requires assistance of another to leave home safely Requires a taxing effort to leave the home safely Oxygen Patient needs Oxygen 3L at rest and 6L with activity. Concentrator: Yes Type of Portable System: Portable Gaseous Can patient tolerate a pulse dose: Yes Liter flow (Lpm): 6 Usage: W/ Activity Delivery Mode: Nasal Cannula For (# of months): 99 Testing Evaluated: Patient qualifies for home O2 with testing showing a SpO2 of 88 percent or less or an ABG of 66 mmHg or less completed within 48 hours of discharge The [id number]-[id number] evaluation was performed on: 10/31/2024 DME services provided by: [facility] Transportation: [employer] provides transportation for a fee: ext [phone] [email or web address]?utm_source=lucina&utm_medium=[facility]&utm_campaign=[id number]&utm_c ontent=& amp;utm_term=go%20go%20grandparents&[email or web address]&[id number] [email or web address] 360 Transport Services: [phone] www.[email or web address] [facility] Services: [phone] Discharge Medications: Current Medications TAKE these medications amoxicillin-clavulanate 875-125 mg per tablet Take 1 tablet (875 mg of amoxicillin total) by mouth 2 (two) times a day for 14 days Commonly known as: AUGMENTIN atenoloL 50 mg tablet Take 1 tablet (50 mg total) by mouth daily Commonly known as: TENORMIN atorvastatin 20 mg tablet Take 1 tablet (20 mg total) by mouth nightly Commonly known as: LIPITOR calcitRIOL 0.25 mcg capsule Take 1 capsule (0.25 mcg total) by mouth daily Commonly known as: ROCALTROL clorazepate 15 mg tablet Take 0.5 tablets (7.5 mg total) by mouth 2 (two) times a day Commonly known as: TRANXENE ergocalciferol 50,000 unit capsule Take 1 capsule (50,000 Units total) by mouth once a week on Sat Commonly known as: VITAMIN D fenofibrate nanocrystallized 145 mg tablet Take 1 tablet (145 mg total) by mouth daily Commonly known as: TRICOR Flonase Allergy Relief 50 mcg/actuation nasal spray Administer 2 sprays into each nostril daily as needed for rhinitis or allergies Generic drug: fluticasone propionate levothyroxine 25 mcg tablet Take 1 tablet (25 mcg total) 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 Commonly known as: SYNTHROID midodrine 10 mg tablet Take 1 tablet (10 mg total) by mouth 3 (three) times a day before meals For: a feeling of dizziness upon standing due to a drop in blood pressure Commonly known as: PROAMATINE tamsulosin 0.4 mg extended release capsule Take 1 capsule (0.4 mg total) by mouth daily with dinner Commonly known as: FLOMAX Tikosyn 125 mcg capsule Take 1 capsule (125 mcg total) by mouth 2 (two) times a day Generic drug: dofetilide * warfarin 2 mg tablet Take 1 tablet (2 mg total) by mouth once a week on Tuesdays Commonly known as: COUMADIN * warfarin 2 mg tablet Take 0.5 tablets (1 mg total) by mouth 6 (six) times a week from Thursday to Thursday Commonly known as: COUMADIN * This list has 2 medication(s) that are the same as other medications prescribed for you. Read the directions carefully, and ask your doctor or other care provider to review them with you. Outpatient Follow-Up: Contact Information for Follow-ups [address] [facility] [address] Next Steps: Follow up Sofie Kelly MD Specialty: Family Medicine Relationship: PCP - General [address] [place] [address] [address] [facility] [address] Next Steps: Follow up Comments: Follow up with established provider: 2 weeks Questions: To provider: SOFIE KELLY Casey Louis, MD Specialty: Pulmonary Disease, Internal Medicine, Critical Care Med Relationship: Consulting Physician [id number] [facility] [address] [place] [place] [id number] Next Steps: Follow up Comments: Follow up with established provider: 4 weeks Questions: To provider: SHAILESH PABON Anita D., ZACHERY Specialty: Urology, Internal Medicine, Nurse Practitioner, Family Medicine Relationship: Nurse Practitioner [id number] [facility] [address] [facility] [address] Next Steps: Follow up Comments: Follow up with established provider: 4 weeks Questions: To provider: RHODA LACY Patient qualifies for home O2 with testing showing a SpO2 of 88 percent or less or an ABG of 66 mmHg or less completed within 48 hours of discharge documented in this encounter Discharge Instructions * Discharge Instr - Diet* Vernell Tobias RD - 10/25/2024 10:26 AM CDT Dietitian recommends a low sodium diet on discharge. Limit sodium to 2,000 mg daily (500-700 mg per meal), and do not add salt to your food. Avoid foodsthat are high sources of sodium, such as fast foods, fried/breaded foods, canned goods, deli meats and gravies/sauces. -Otherwise, eat a variety of healthy foods from all the food groups. Eat fruits, vegetables, whole grains, and fat-free or low-fat dairy foods. Whole grains include whole-wheat breads, cereals, pasta, and brown rice. Choose lean meats, poultry (chicken and turkey), fish, beans, eggs, and nuts. A healthy meal plan is low in unhealthy fats, salt, and added sugar. Healthy fats include olive oil and canola oil. Recommend to avoid sugary drinks like lemonade, regular soda, gatorade, and sweet tea. Additional resources are available online from the Academy of Nutrition and Dietetics at www.eatright.org Discuss with your physician if you should continue to follow a fluid restriction. As of 10/31/24, a 2000 mL (or 2 liters) fluid restriction was ordered. Please call the dietitian's office at [phone] if you have questions about nutrition. If you would like to see our outpatient dietitian please have your physician fax a referral to [phone], and you may call [phone] to make an appointment. For any other questions you can call and ask to be connected to the floor that you were discharged from. * Discharge Instr - Other Orders* Rylee Sheikh MSW - 10/27/2024 2:26 PM CDT Transportation: [employer] provides transportation for a fee: ext [phone] [email or web address]/lawandastart?utm_source=lucina&utm_medium=[facility]&utm_campaign=984503275&utm_c ontent=& amp;utm_term=go%20[employer]%20grand[employer]&nap=39295&lioaxha=[id number] [email or web address] 360 [employer]: [phone] www.[employer] [facility]: [phone] documented in this encounter Medications at Time of Discharge amoxicillin-clavulana te (AUGMENTIN) 875-125 mg per tablet Take 1 tablet (875 mg of amoxicillin total) by mouth 2 (two) times a day for 14 days 28 tablet 5 11/18/19 25 atenoloL (TENORMIN) 50 mg tablet Take 1 tablet (50 mg total) by mouth daily 3 atorvastatin (LIPITOR) 20 mg tablet Take 1 tablet (20 mg total) by mouth nightly 3 calcitRIOL (ROCALTROL) 0.25 mcg capsule Take 1 capsule (0.25 mcg total) by mouth daily clorazepate (TRANXENE) 15 mg tablet Take 0.5 tablets (7.5 mg total) by mouth 2 (two) times a day ergocalciferol (VITAMIN D) 50,000 unit capsule Take 1 capsule (50,000 Units total) by mouth once a week on Sat fenofibrate nanocrystallized (TRICOR) 145 mg tablet Take 1 tablet (145 mg total) by mouth daily 2 fluticasone propionate (Flonase Allergy Relief) 50 mcg/actuation nasal spray Administer 2 sprays into each nostril daily as needed for rhinitis or allergies 6 levothyroxine (SYNTHROID) 25 mcg tablet Take 1 tablet (25 mcg total) 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 9 midodrine (PROAMATINE) 10 mg tabletIndications:Sym ptomatic Orthostatic Hypotension Take 1 tablet (10 mg total) by mouth 3 (three) times a day before meals 90 tablet 5 12/04/19 25 tamsulosin (FLOMAX) 0.4 mg extended release capsule Take 1 capsule (0.4 mg total) by mouth daily with dinner 30 capsule 5 12/04/19 25 Tikosyn 125 mcg capsule Take 1 capsule (125 mcg total) by mouth 2 (two) times a day 5 warfarin (COUMADIN) 2 mg tablet Take 1 tablet (2 mg total) by mouth once a week on Tuesdays warfarin (COUMADIN) 2 mg tablet Take 0.5 tablets (1 mg total) by mouth 6 (six) times a week from Thursday to Thursday documented as of this encounter Ordered Prescriptions Prescription Sig Dispense Quantity Refills Last Filled Start Date End Date tamsulosin (FLOMAX) 0.4 mg extended release capsule Take 1 capsule (0.4 mg total) by mouth daily with dinner 30 capsule 11/03/2024 5 midodrine (PROAMATINE) 10 mg tabletIndications: Symptomatic Orthostatic Hypotension Take 1 tablet (10 mg total) by mouth 3 (three) times a day before meals 90 tablet 11/03/2024 5 amoxicillin-clavul anate (AUGMENTIN) 875-125 mg per tablet Take 1 tablet (875 mg of amoxicillin total) by mouth 2 (two) times a day for 14 days 28 tablet 11/03/2024 5 documented in this encounter Discharge Disposition Disposition Code Departure Means Destination Comment s Discharge to [facility] Ambulance[facility]EMS Other [facility] documented in this encounter Progress Notes * Delvin Mendenhall MD - 11/03/2024 3:41 PM CDT Nephrology Progress Note [facility] SUBJECTIVE 11/03 Na 133. Urine clear. Renal fn/lytes baseline. 11/02 Na 130. Appropriate. Will dc IVF. Hematuria has resolved. Failed voiding trial. 11/01 Na 135, too rapid correction. Will change ivf. Voiding trial failed. All labs and data reviewed. 10/31 Na 123. Po tolvaptan started. PO FR. Will change to 1500 cc/24 hours. Voiding trial today. 10/[address] Gillespie, a keen observer noticed pt drinking excessive free water, this is likely contributing,PO FR started. Lasix IV times 1. Tolvaptan 15 mg po times 1 tonight. Frequent BMP. UO is now appropriate. Pt agreeable to Rehab. 10/29 Na 126. Over 11 liters urine. Overall stable. Will need IVF. 10/28 Slowly improving. Bp soft. Guerrero draining clear urine. Over 7 litres of urine reported? OBJECTIVE Vitals: Vitals: 11/03/24 0046 11/03/24 0409 11/03/24 0755 11/03/24 0901 BP: 110/63 105/73 121/80 BP Location: Left arm Right arm Right arm Patient Position: Lying Lying Lying Pulse: 80 78 80 Resp: 18 18 17 Temp: 36.4 ??C (97.5 ??F) 36.3 ??C (97.3 ??F) TempSrc: Oral Oral SpO2: 91% 90% 93% 90% Weight: 87.2 kg (192 lb 3.9 oz) Height: Intake/Output Summary (Last 24 hours) at 11/03/2024 2159 Last data filed at 11/03/2024 0945 Gross per 24 hour Intake -- Output 675 ml Net -675 ml REVIEW OF SYSTEMS Review of Systems Constitutional: Negative. HENT: Negative. Eyes: Negative. Respiratory: Negative. Cardiovascular: Negative. Gastrointestinal: Negative. Genitourinary: Negative. Musculoskeletal: Negative. Skin: Negative. Allergic/Immunologic: Negative. Hematological: Negative. All other systems reviewed and are negative. PHYSICAL EXAM Physical Exam Constitutional: Appears well-developed. HENT: wnl Head: Normocephalic. Eyes: Pupils are equal, round, and reactive to light. Neck: Normal range of motion. Neck supple. Cardiovascular: Normal rate. Pulmonary/Chest: Effort normal and breath sounds normal. Abdominal: Soft. Musculoskeletal: Normal range of motion. Neurological: Alert, oriented. Skin: Skin is warm. Nursing note and vitals reviewed. MEDICATIONS No current facility-administered medications for this encounter. Current Outpatient Medications: atenoloL (TENORMIN) 50 mg tablet, Take 1 tablet (50 mg total) by mouth daily, Disp: , Rfl: atorvastatin (LIPITOR) 20 mg tablet, Take 1 tablet (20 mg total) by mouth nightly, Disp: , Rfl: calcitRIOL (ROCALTROL) 0.25 mcg capsule, Take 1 capsule (0.25 mcg total) by mouth daily, Disp: , Rfl: clorazepate (TRANXENE) 15 mg tablet, Take 0.5 tablets (7.5 mg total) by mouth 2 (two) times a day, Disp: , Rfl: ergocalciferol (VITAMIN D) 50,000 unit capsule, Take 1 capsule (50,000 Units total) by mouth once aweek on Thu, Disp: , Rfl: fenofibrate nanocrystallized (TRICOR) 145 mg tablet, Take 1 tablet (145 mg total) by mouth daily, Disp: , Rfl: fluticasone propionate (Flonase Allergy Relief) 50 mcg/actuation nasal spray, Administer 2 sprays into each nostril daily as needed for rhinitis or allergies, Disp: , Rfl: levothyroxine (SYNTHROID) 25 mcg tablet, Take 1 tablet (25 mcg total) by mouth pressure tank operator beforebreakfast, Disp: , Rfl: Tikosyn 125 mcg capsule, Take 1 capsule (125 mcg total) by mouth 2 (two) times a day, Disp: , Rfl: warfarin (COUMADIN) 2 mg tablet, Take 1 tablet (2 mg total) by mouth once a week on Tuesdays, Disp:, Rfl: warfarin (COUMADIN) 2 mg tablet, Take 0.5 tablets (1 mg total) by mouth 6 (six) times a week from Thursday to Thursday, Disp: , Rfl: amoxicillin-clavulanate (AUGMENTIN) 875-125 mg per tablet, Take 1 tablet (875 mg of amoxicillin total) by mouth 2 (two) times a day for 14 days, Disp: 28 tablet, Rfl: 0 midodrine (PROAMATINE) 10 mg tablet, Take 1 tablet (10 mg total) by mouth 3 (three) times a day before meals, Disp: 90 tablet, Rfl: 0 tamsulosin (FLOMAX) 0.4 mg extended release capsule, Take 1 capsule (0.4 mg total) by mouth daily with dinner, Disp: 30 capsule, Rfl: 0 Lab/Radiology/Diagnostic Review: Recent Results (from the past 24 hours) CBC with auto differential Collection Time: 11/03/24 6:28 AM Result Value Ref Range WBC 3.95 3.80 - 9.90 K/cumm Hgb 12.0 (L) 13.0 - 17.5 g/dL Hct 36.4 (L) 38.9 - 50.3 % Plt 143 (L) 150 - 400 K/cumm MPV 11.7 9.1 - 12.3 fL RBC 3.85 (L) 4.30 - 5.80 M/cumm MCV 94.5 81.3 - 96.4 fL MCH 31.2 27.1 - 33.3 pg MCHC 33.0 32.3 - 35.7 g/dL RDW CV 16.5 (H) 11.1 - 14.9 % RDW SD 57.1 (H) 35.7 - 48.1 fL NRBC abs 0.00 0.00 - 0.01 K/cumm Protime-INR Collection Time: 11/03/24 6:28 AM Result Value Ref Range PT 42.2 (H) 9.7 - 13.0 sec INR 3.80 (H) 0.90 - 1.20 Renal function panel Collection Time: 11/03/24 6:28 AM Result Value Ref Range Sodium 133 (L) 135 - 145 mmol/L Potassium, pl 3.6 3.3 - 4.9 mmol/L Chloride 94 (L) 97 - 110 mmol/L CO2 31 22 - 32 mmol/L Anion gap 8 2 - 15 mmol/L BUN 25 6 - 25 mg/dL Creatinine 1.22 0.80 - 1.30 mg/dL Glucose 118 70 - 199 mg/dL Calcium 8.1 (L) 8.5 - 10.3 mg/dL Phosphorus, pl 2.4 2.3 - 4.5 mg/dL Albumin 2.8 (L) 3.5 - 5.0 g/dL Differential, auto Collection Time: 11/03/24 6:28 AM Result Value Ref Range Neutrophil abs 2.83 1.50 - 6.50 K/cumm Imm gran abs 0.04 0.00 - 0.10 K/cumm Lymphocyte abs 0.56 (L) 0.80 - 3.30 K/cumm Monocyte abs 0.38 0.20 - 0.80 K/cumm Eosinophil abs 0.12 0.00 - 0.50 K/cumm Basophil abs 0.02 0.00 - 0.10 K/cumm Neutrophil pct 71.7 % Imm gran pct 1.0 % Lymphocyte pct 14.2 % Monocyte pct 9.6 % Eosinophil pct 3.0 % Basophil pct 0.5 % eGFR Collection Time: 11/03/24 6:28 AM Result Value Ref Range eGFR 58 (L) >=60 mL/min/1.73 m2 XR Chest 1 View Result Date: 10/27/2024 Narrative: EXAMINATION: XR CHEST 1 VIEW HISTORY: The patient is an 84-year-old male who presents with shortness of breath. Comparison made with the previous study dated 10/26/2024. TECHNIQUE: AP portable view of the chest. FINDINGS: Cardiomegaly with aortic atherosclerosis. Findings of pulmonary vascular congestion. No focal consolidation. Impression: Cardiomegaly with pulmonary vascular congestion. Electronically signed by: Coco Youngblood M.D. XR Chest 1 View Result Date: 10/26/2024 Narrative: EXAMINATION: XR CHEST 1 VIEW HISTORY: The patient is a 84-year-old male who presents with shortness of breath. Comparison made with the previous study dated 10/24/2024. TECHNIQUE: AP portable view of the chest. FINDINGS: Cardiomegaly with aortic atherosclerosis. Findings of pulmonary vascular congestion. No focal infiltrate seen. Impression: Cardiomegaly with pulmonary vascular congestion. Electronically signed by: Coco Youngblood M.D. XR Chest 1 Vw Portable Result Date: 10/24/2024 Narrative: EXAMINATION: XR CHEST 1 VIEW HISTORY: The patient is an 84-year-old male who presents with hypoxia. Comparison made with the previous study dated 10/23/2024. TECHNIQUE: AP portable view ofthe chest. FINDINGS: Cardiomegaly with aortic atherosclerosis. Findings of pulmonary vascular congestion. Right lower lobe infiltrate with the remainder of the lungs being clear. Impression: Findings as described above. Electronically signed by: Coco Youngblood M.D. XR Chest 1 Vw Portable Result Date: 10/23/2024 Narrative: Examination: XR CHEST 1 VIEW Date: 10/23/2024 7:20 AM History: effusion Comparison: 10/18/2024. Findings: Normal heart size, sternotomy and left AICD is again seen. A small right effusion andmoderate right lower lobe infiltrate with patchy consolidation is unchanged. Impression: Persistent right effusion with patchy right lower lobe consolidation. Electronically signed by: Perla Cowart M.D. CT Abdomen Pelvis WO Contrast Result Date: 10/21/2024 Narrative: EXAMINATION: CT ABDOMEN PELVIS WO CONTRAST DATE: 10/21/2024 5:35 AM HISTORY: Weight loss,unintended TECHNIQUE: Images through the abdomen and pelvis [...] fluid. There is no bowel obstruction. The appendixis not identified with confidence. There are multiple colonic diverticula. There is a 43 mm infrarenal abdominal aortic aneurysm. There are postoperative changes of the aortobiiliac bypass. Radiationtherapy changes are noted in the prostate. Impression: Limited study secondary to lack of intravenous contrast. No acute intra-abdominal abnormality. Colonic diverticulosis. Bilateral pleural effusions and bilateral lower lobe atelectasis. 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 Electronically signed by: Neel Morrison M.D. Transthoracic Echo (TTE) Complete W Doppler/CF Result Date: 10/21/2024 Narrative: [place] [address] Echocardiogram Report Patient Name: IAN MONSALVE H : 1940 Study Date: 10/20/2024 12:11:53 PM Gender: M Tech: Location: [address] Provider: CARLA CADENA Height(Cm): 170 BSA: 1.93 Weight(Kg): 79 Heart [...] m/s [ 1.00 - 1.70 ] LVPWd 2D1.45 cm [ 0.60 - 1.00 ] AV VTI 17.66 cm IVSd 2D 1.39 cm [ 0.60 - 1.00 ] LVOT Diam 2.02 cm LA Dimension 2D 3.43 cm [ 3.00 - 4.00 ] LVOT Peak Abilio 0.67 m/s [ 0.70 - 1.10 ] LA Dimension MM 3.96 cm [ 3.00- 4.00 ] LVOT VTI 10.11 cm AoR [...] aortic root. IVC: The IVC is not wellvisualized. CONCLUSIONS: Echo contrast was used. Left ventricle cavity is within upper limits of normal. Moderate concentric left ventricular hypertrophy. Moderate global leftventricular systolic dysfunction. Diastolic dysfunction is present. Increased [...] of hemodynamically significant aortic stenosis by Doppler. Vavtkuop-cp-jkjduq pulmonary hypertension, estimated RVSP 60 mmHg. Moderate tricuspid regurgitation. Electronically Signed By: Clive Godfrey MD, [facility] 10/21/2024 6:43:00 AM CDT US Retroperitoneal Complete Result Date: 10/19/2024 Narrative: EXAMINATION: RENAL ULTRASOUND Date: 10/19/2024 2:20 PM History: Kidney failure, acute Comparison: None. Findings: The right kidney measures 10.5 x 4.7 x 4.0 cm . Parenchymal echogenicity iswithin normal limits. There is no hydronephrosis, calculus, [...] measuring 4.2 x 4.6 x 5.3 cm Impression: 1. Possible mass in the right kidney measuring up to 1.4 cm. Suggest MRI of the kidneysfor further evaluation. 2. Enlarged prostate. Electronically signed by: Rajendra Oh II, D.O. CT Chest WO Contrast Result Date: 10/18/2024 Narrative: EXAMINATION: Computed tomography of the chest without intravenous contrast HISTORY: Abnormal chest radiograph. TECHNIQUE: Transaxial computed tomographic images of the chest were obtained without intravenous contrast according to the standard protocol. COMPARISON: Chest radiograph dated same day. FINDINGS: There is a moderately sized right pleural effusion with fluid in the right majorfissure and right upper, middle, and lower lobe consolidations most notable in the right lower lobe. Small left pleural effusion with left lower lobe atelectasis. Severe centrilobular emphysematous changes. Poststernotomy changes. Mild mediastinal lymphadenopathy with largest mediastinal node measur ing 1.1 cm in short axis dimension. Nodules in the left upper lobe, largest measuring approximately1.1 x 0.5 cm. Follow-up suggested. Main pulmonary [...] may represent pseudo-thickening from underdistention versus gastritis. Impression: 1. Moderately sized right pleural effusion with [...] Electronically signed by: Rajendra Oh II, D.O. ECG 12 lead Result Date: 10/18/2024 Narrative: Vent Rate: 80 bpm RR Interval: 749 msec RI Interval: 140 msec QRS Duration: 164 msec QT Interval: 377 msec QTC Interval: 412 msec P-R-T [place]: -52 - 226 - 226 degrees IMPRESSION: ELECTRONICVENTRICULAR PACEMAKER ST DEPRESSION, CONSIDER SUBENDOCARDIAL INJURY [0.1+ mV ST DEPRESSION] ABNORMAL ECG No change compared to prior EKG Electronically Signed By: Emilio SAINZ XR Chest 1 Vw Portable Result Date: 10/18/2024 Narrative: EXAMINATION: XR CHEST 1 VIEW DATE: 10/18/2024 11:20 AM INDICATION: Shortness of breath. COMPARISON: 02/23/2023. Impression: ICD leads are intact. Post sternotomy changes are noted. Cardiac mediastinal silhouettewithin normal limits. There is a small right pleural effusion. Opacities in the right lower lobe suggestive of pneumonia, increased from prior. Follow-up suggested to ensure resolution. No acute osseous abnormality. Electronically signed by: Rajendra Oh II, D.O. ASSESSMENT/PLAN CKD 3b CRS. CHF/dyspnea. R LL PNA. MBD. ICD status. RECOMMENDATIONS IV diuresis. CKD washburn. Overall improved. -10/20, BP low, start midodrine, IV ABX, decrease diuresis, CT scan kidneys. -10/21, urinary retention, ROSA worse, guerrero placed, will follow, CT scan to be reviewed. -10/22, CT scan kidneys shows exophytic cysts, will do MRI as o/p, continue guerrero, ROSA better, good UO, no new changes, difficult guerrero yesterday. -Cr 1.7 and baseline, dyspnea better, gross hematuria, difficult guerrero, traumatic hematuria, Needs CBI, will reconsult Urology. -cr is baseline, guerrero irrigation, likely needs thoracentesis, for both diagnostic and therapeutic purposes, avss, lytes stable. -CR is stable, cxr better, can switch to po diuretics tomorrow. -stable labs, BP soft, OT/PT, CMR eval, same tx, hold diuresis, po midodrine, continue guerrero, will retain on IP dc. Renal mass will be evaluated as o/p. -Start normotonic IVF, tolvaptan will not work in most cases with met alkalosis, he has some edema but that seems like third spacing, long d/w family, they want SNF and can't take care of him at home. -Critical hyponattremia possibly from excessive PO free water intake, Lasix iv times 1, tolvaptan 15 mg daily for 2 days, Rehab eval, d/w family and Dr Gillespie via text. -Na 123, still critical but better, po FR, loop diuresis carefully, DC IVF, Tolvaptan daily times 2, d/w family. -Na 135, as above, replace guerrero, traumatic hematuria is to be expected. -Na 130, DC IVF, guerrero now draining clear urine, will follow. -Na 133, DC IVF, retain guerrero, voiding trial as o/p. I can be reached at [phone] with any concerns. Thank you No att. providers found for the consult. Delvin Mendenhall MD [employer] [phone] * Dustin Barrett RN - 11/03/2024 3:39 PM CDT Report called to YOLI Dixon at [facility]. [facility] transporting. Patients daughter at bedside, * Noah Lynne RRT - 11/03/2024 1:54 PM CDT HOME 02 ASSESSMENT 6 LPM AT REST 8 LPM WITH ACTIVITY 11/03/24 1330 Resting Information Resting HR. 80 bpm Resting SPO2 74 % Oxygen Setting R/A Delivery Device NONE Ambulation Trials to Assess Desaturation to 88% Activity 1: Ambulated (feet) 0 feet Oxygen Setting #1 2LPM SPO2 (%) #1 78 % Activity 2: Ambulated (feet) 0 feet Oxygen Setting #2 3LPM SPO2 (%) #2 79 % Activity 3: Ambulated (feet) 0 feet Oxygen Setting #3 6 SPO2 (%) #3 90 % More Activites Needed? Yes Activity 4: Ambulated (feet) 15 feet Oxygen Setting #4 6 SPO2 % #4 88 % Activity 5: Ambulated (feet) 30 feet Oxygen Setting #5 8 SPO2 (%) #5 91 % Post Ambulation Assessment HR Post Assessment 84 bpm RR Post Assessment 20 breaths/m Post Assessment Recommendation 6 LPM AT REST 8 LPM WITH ACTIVITY (6 LPM AT REST 8 LPM WITH ACTIVITY) $ Home O2 Assessment Yes * Kat Ontiveros, LONG CHAIN DYEING MACHINE OPERATOR - 11/03/2024 9:14 AM CDT Physical Therapy PATIENT'S NAME:Ian Monsalve :1940 AGE:84 y.o. ROOM:[facility]/[place] [address] Patient politely refuses at this time stating had a bad night. Will check back at a later date/timeas schedule allows. Kat Ontiveros, OTTO 11/03/24 9:34 AM * Radha Suggs MD - 11/03/2024 8:12 AM CDT Pulmonary Daily Progress Chief complaint/reason for consult: New O2 requirement, Pulmonary nodules, pulmonary hypertension . Interval History: On 4L of O2 w sats low 90s, found pt. With O2 out of nose. Cough at times, nonproductive. Denies chest pain. Anxious at times. Afebrile. Presenting History: 84 y/o CM who presented to the ED on 10/18/24 with complaints of shortness of breath that had been worsening over the last week. He was reportedly satting 70% on room air when EMSarrived. 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 States he has been having increased BAH. Does have cough at times that is productive of clear sputum. Started smoking age 12 and quit in 1996, smoked up to 1.5 ppd for 44 years, giving a 66 pack year hx. He has been on amiodarone in the past but not for sometime. 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 No service[address] CT Chest 10/18/24: Very severe emphysematous changes, moderate right pleural effusion, lung nodules Carries a hx of atrial fibrillation s/p multiple ablations, HFrEF, ischemic cardiomyopathy s/p BiVICD, CKD, CAD s/p CABG, Allergies: Allergies Allergen Reactions Trazodone Hcl Unknown Morphine Hydrocodone Unknown Lunesta [Eszopiclone] Other (See comments) Gave him crazy dreams Tramadol Nausea only Vicodin [Hydrocodone-Acetaminophen] Nausea only Medications: Scheduled Meds:ampicillin-sulbactam, 3 g, intravenous, Q6H THERESA [Held by Provider] aspirin, 81 mg, oral, Daily atenoloL, 50 mg, oral, Daily atorvastatin, 20 mg, oral, Nightly calcitRIOL, 0.25 mcg, oral, Daily dofetilide, 125 mcg, oral, BID fenofibrate nanocrystallized, 145 mg, oral, Daily ipratropium-albuteroL, 3 mL, nebulization, Q6H While awake (RT) levothyroxine, 25 mcg, oral, Daily - 0600 midodrine, 10 mg, oral, TID AC pantoprazole DR, 40 mg, oral, Daily senna-docusate, 1 tablet, oral, BID tamsulosin, 0.4 mg, oral, Daily with dinner Continuous Infusions:dextrose 5%, 75 mL/hr, Last Rate: 75 mL/hr (11/03/24 0116) PRN Meds:. acetaminophen clorazepate fluticasone propionate ondansetron ramelteon ROS Above review of system reviewed on 11/03/2024 Vitals: Vitals: 11/02/24 2017 11/03/24 0046 11/03/24 0409 11/03/24 0755 BP: 110/63 105/73 121/80 BP Location: Left arm Right arm Right arm Patient Position: Lying Lying Lying Pulse: 80 78 80 Resp: 18 18 17 Temp: 36.4 ??C (97.5 ??F) 36.3 ??C (97.3 ??F) TempSrc: Oral Oral SpO2: 94% 91% 90% 93% Weight: 87.2 kg (192 lb 3.9 oz) Height: Temp (24hrs), Av.4 ??C (97.6 ??F), Min:36.3 ??C (97.3 ??F), Max:36.6 ??C (97.9 ??F) Intake/Output Summary (Last 24 hours) at 11/03/2024 0812 Last data filed at 11/02/2024 2205 Gross per 24 hour Intake 1750 ml Output 875 ml Net 875 ml Physical Exam Vitals and nursing note reviewed. Constitutional: General: He is not in acute distress. Appearance: He is well-developed. HENT: Head: Normocephalic and atraumatic. Comments: Hard of hearing Nose: Nose normal. Mouth/Throat: Mouth: Mucous membranes are moist. Eyes: Conjunctiva/sclera: Conjunctivae normal. Cardiovascular: Rate and Rhythm: Normal rate and regular rhythm. Heart sounds: No murmur heard. Pulmonary: Effort: Pulmonary effort is normal. No respiratory distress. Breath sounds: No stridor. Decreased breath sounds present. No wheezing, rhonchi or rales. Abdominal: General: Bowel sounds are normal. Palpations: Abdomen is soft. Musculoskeletal: Right lower leg: Edema present. Left lower leg: Edema present. Skin: General: Skin is warm and dry. Lab/Radiology/Diagnostic Review: Labs: Recent Labs Lab Units 11/03/24 0628 11/02/24 0724 11/01/24 0400 WBC K/cumm 3.95 4.11 2.97* HEMOGLOBIN g/dL 12.0* 12.2* 12.1* HEMATOCRIT % 36.4* 36.7* 36.3* PLATELETS K/cumm 143* 147* 133* NEUTROS PCT % 71.7 75.2 71.1 LYMPHS PCT % 14.2 13.1 14.8 MONOS PCT % 9.6 8.5 10.1 EOS PCT % 3.0 2.2 3.4 Recent Labs Lab Units 11/02/24 0724 11/01/24 0400 10/31/24 0006 SODIUM mmol/L 135 137 123* POTASSIUM PLASMA mmol/L 3.7 3.4 3.7 CHLORIDE mmol/L 96* 96* 89* CO2 mmol/L 32 35* 30 ANIONGAP mmol/L 7 6 4 GLUCOSE mg/dL 119 92 106 BUN SERUM mg/dL 29* 34* 32* CREATININE mg/dL 1.27 1.37* 1.26 CALCIUM mg/dL 8.4* 8.4* 7.6* ALBUMIN g/dL 2.9* 2.8* -- Imaging: CXR 11/01/24: overall improvement in PVC and effusion Other diagnostic tests: Echo 10/20/24: EF 37%, LVDD, RV volume overload, RVSP 60 I have personally reviewed above laboratory findings, chest imaging, and diagnostic tests 11/03/2024 Assessment and Plan: Acute hypoxic respiratory insufficiency Severe emphysema RLL cavitary lesion: pneumonia vs malignancy vs bullous disease B effusions, R>L, likely due to CHF, parapneumonic also possible; persistent but clinically doesnot appear infected and does have ongoing volume overload Afib CHF CKD CAD w hx CABG Hyponatremia; improved Recs: - Wean supplemental O2 for SpO2 88-92% - Nebs TID - Unasyn day 16, completed azithromycin. Given cavitary lesion would continue augmentin at discharge for total treatment period of 3-4 weeks. - if signs ongoing infection would need thoracentesis; for now favor monitoring given likely CHF and anticoagulation - Will need repeat CT chest imaging in 4-6 weeks - nephrology following - O2 assessment prior to d/c -dispo planning in progress The patient was seen and examined with WHIZZER. The patient???s labs, imaging and testing was personally reviewed along with the documented note and I agree with above. JHZMD Ok to discharge from a pulmonary standpoint, work on conditioning and strength * Donte Camacho MD - 11/03/2024 7:38 AM CDT Cardiology follow-up note-[facility] Pertinent information was reviewed patient . The patient was examined in room 420. He is resting comfortably in bed Aware he is getting ready to go to [facility] rehab facility. It is okay to discharge patient cardiology standpoint on current cardiac medications. No past medical history on file. Past Surgical History: Procedure Laterality Date CHOLECYSTECTOMY Medications Prior to Admission Medication Sig Dispense Refill Last Dose/Taking aspirin 81 mg enteric coated tablet Take 1 tablet (81 mg total) by mouth daily 10/18/2024 Morning atenoloL (TENORMIN) 50 mg tablet Take 1 tablet (50 mg total) by mouth daily 10/17/2024 atorvastatin (LIPITOR) 20 mg tablet Take 1 tablet (20 mg total) by mouth nightly 10/17/2024 Bedtime calcitRIOL (ROCALTROL) 0.25 mcg capsule Take 1 capsule (0.25 mcg total) by mouth daily 10/18/2024 Morning clorazepate (TRANXENE) 15 mg tablet Take 0.5 tablets (7.5 mg total) by mouth 2 (two) times a day 10/18/2024 Morning digoxin (LANOXIN) 250 mcg (0.25 mg) tablet Take 1 tablet (250 mcg total) by mouth 3 (three) times aweek on Thu, Thu, Thu10/17/2024 ergocalciferol (VITAMIN D) 50,000 unit capsule Take 1 capsule (50,000 Units total) by mouth once a week on Thu Past Week fenofibrate nanocrystallized (TRICOR) 145 mg tablet Take 1 tablet (145 mg total) by mouth daily 10/17/2024 fluticasone propionate (Flonase Allergy Relief) 50 mcg/actuation nasal spray Administer 2 sprays into each nostril daily as needed for rhinitis or allergies Past Week levothyroxine (SYNTHROID) 25 mcg tablet Take 1 tablet (25 mcg total) 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 10/18/2024 Morning Tikosyn 125 mcg capsule Take 1 capsule (125 mcg total) by mouth 2 (two) times a day 10/18/2024 Morning warfarin (COUMADIN) 2 mg tablet Take 1 tablet (2 mg total) by mouth once a week on Tuesdays10/18/2024 Morning warfarin (COUMADIN) 2 mg tablet Take 0.5 tablets (1 mg total) by mouth 6 (six) times a week from Thursday to Thursday10/17/2024 Morning Current Facility-Administered Medications: acetaminophen (TYLENOL) tablet 500 mg, 500 mg, oral, Q6H PRN, Luan Guillermo DO, 500 mg at 10/27/242019 ampicillin-sulbactam (UNASYN) 3 g in sodium chloride 0.9% 100 mL IVPB, 3 g, intravenous, Q6H THERESA, Ryan Bailey MD, Last Rate: 220 mL/hr at 11/03/24 011, 3 g at 11/03/24115 [Held by Provider] aspirin enteric coated tablet 81 mg, 81 mg, oral, Daily, Namrata Spencer, ZACHERY, 81 mg at 10/24/24 1001 atenoloL (TENORMIN) tablet 50 mg, 50 mg, oral, Daily, Namrata Spencer, ZACHERY, 50 mg at 11/02/24 08 atorvastatin (LIPITOR) tablet 20 mg, 20 mg, oral, Nightly, Namrata Spencer, ZACHERY, 20 mg at 11/02/242043 calcitRIOL (ROCALTROL) capsule 0.25 mcg, 0.25 mcg, oral, Daily, Namrata Spencer NP, 0.25mcg at 11/02/2414 clorazepate (TRANXENE) tablet 7.5 mg, 7.5 mg, oral, BID PRN, Luan Guillermo, , 7.5 mg at 11/02/24 1314 dextrose 5% infusion, 75 mL/hr, intravenous, Continuous, Delvin Mendenhall MD, Last Rate: 75 mL/hr at 11/03/24115, 75 mL/hr at 11/03/24115 dofetilide (TIKOSYN) capsule 125 mcg, 125 mcg, oral, BID, Namrata Spencer NP, 125 mcg at11/02/242043 fenofibrate nanocrystallized (TRICOR) tablet 145 mg, 145 mg, oral, Daily, Namrata Spencer NP, 145 mg at 11/02/24 0824 fluticasone propionate (FLONASE) 50 mcg/actuation nasal spray 2 spray, 2 spray, each nostril, DailyPRN, Namrata Spencer NP ipratropium-albuteroL (DUO-NEB) 0.5-2.5 mg/3 mL nebulizer solution 3 mL, 3 mL, nebulization, Q6H While awake (RT), Ryan Bailey MD, 3 mL at 11/02/242016 levothyroxine (SYNTHROID) tablet 25 mcg, 25 mcg, oral, Daily - 0600, Namrata Spencer NP,25 mcg at 11/03/24 0540 midodrine (PROAMATINE) tablet 10 mg, 10 mg, oral, TID AC, Delvin Mendenhall MD, 10 mg at 11/02/241748 ondansetron (ZOFRAN) injection 4 mg, 4 mg, intravenous, Q6H PRN, Namrata Spencer NP pantoprazole DR (PROTONIX) extended release tablet 40 mg, 40 mg, oral, Daily, Carla Jean MD,40 mg at 11/02/24813 ramelteon (ROZEREM) tablet 8 mg, 8 mg, oral, Nightly PRN, Namrata Spencer NP, 8 mg at 11/02/242146 senna-docusate (PERICOLACE) 8.6-50 mg per tablet 1 tablet, 1 tablet, oral, BID, Luan Guillermo DO, 1 tablet at 11/02/242046 tamsulosin (FLOMAX) extended release capsule 0.4 mg, 0.4 mg, oral, Daily with dinner, Luan Guillermo DO, 0.4 mg at 11/02/241748 Allergies Allergen Reactions Trazodone Hcl Unknown Morphine Hydrocodone Unknown Lunesta [Eszopiclone] Other (See comments) Gave him crazy dreams Tramadol Nausea only Vicodin [Hydrocodone-Acetaminophen] Nausea only Social History Tobacco Use Smoking status: Former Current packs/day: 0.00 Types: Cigarettes Start date: 1955 Quit date: 1997 Years since quittin.4 Passive exposure: Past Smokeless tobacco: Never Substance and Sexual Activity Drug use: Not on file Sexual activity: Not on file Alcohol Use: Unknown (02/23/2023) AUDIT-C Frequency of Alcohol Consumption: Not on file Average Number of Drinks: Patient does not drink Frequency of Binge Drinking: Not on file No family history on file. Review of Systems: Patient tells that he has no chest pain no shortness of breath fatigue slowly getting better he is interested to do more physical activity as PT OT required Objective Vitals: 24hr Min/Max: Temp Min: 36.4 ??C (97.5 ??F) Max: 36.6 ??C (97.9 ??F) Pulse Min: 78 Max: 80 BP Min: 98/68 Max: 110/63 Resp Min: 16 Max: 22 SpO2 Min: 88 % Max: 94 % Most Recent: Vitals: 11/03/24 0409 BP: 105/73 Pulse: 78 Resp: 18 Temp: SpO2: 90% I/O last 2 completed shifts: In: 1750 [P.O.:100; IV Piggyback:1650] Out: 875 [Urine:875] No intake/output data recorded. Physical Exam: Lungs clear no wheezing heart exam regular with soft S1 chest wall well-healed scar left upper chest were ICD was implanted. Neuro appears to have no obvious focal weakness moves all 4 extremities spontaneously Skin no icterus or petechiae Lymphatics no cervical or supraclavicular tae Lab/Radiology/Diagnostic Review: Laboratory review: Lab results in the last 24 hours: Recent Results (from the past 24 hours) CBC with auto differential Collection Time: 11/03/24 6:28 AM Result Value Ref Range WBC 3.95 3.80 - 9.90 K/cumm Hgb 12.0 (L) 13.0 - 17.5 g/dL Hct 36.4 (L) 38.9 - 50.3 % Plt 143 (L) 150 - 400 K/cumm MPV 11.7 9.1 - 12.3 fL RBC 3.85 (L) 4.30 - 5.80 M/cumm MCV 94.5 81.3 - 96.4 fL MCH 31.2 27.1 - 33.3 pg MCHC 33.0 32.3 - 35.7 g/dL RDW CV 16.5 (H) 11.1 - 14.9 % RDW SD 57.1 (H) 35.7 - 48.1 fL NRBC abs 0.00 0.00 - 0.01 K/cumm Protime-INR Collection Time: 11/03/24 6:28 AM Result Value Ref Range PT 42.2 (H) 9.7 - 13.0 sec INR 3.80 (H) 0.90 - 1.20 Differential, auto Collection Time: 11/03/24 6:28 AM Result Value Ref Range Neutrophil abs 2.83 1.50 - 6.50 K/cumm Imm gran abs 0.04 0.00 - 0.10 K/cumm Lymphocyte abs 0.56 (L) 0.80 - 3.30 K/cumm Monocyte abs 0.38 0.20 - 0.80 K/cumm Eosinophil abs 0.12 0.00 - 0.50 K/cumm Basophil abs 0.02 0.00 - 0.10 K/cumm Neutrophil pct 71.7 % Imm gran pct 1.0 % Lymphocyte pct 14.2 % Monocyte pct 9.6 % Eosinophil pct 3.0 % Basophil pct 0.5 % Lipids: No results found for: CHOL, CHLPL, HDL, LDLCALC, TRIG, CHOLHDL and Cardiac Enzymes: No results found for: CKTOTAL, CKMB, CKMBINDEX, TROPONINT ECG: Results for orders placed during the hospital encounter of 10/18/24 ECG 12 lead Narrative Vent Rate: 80 bpm RR Interval: 749 msec RI Interval: 140 msec QRS Duration: 164 msec QT Interval: 377 msec QTC Interval: 412 msec P-R-T [place]: -52 - 226 - 226 degrees IMPRESSION: ELECTRONIC VENTRICULAR PACEMAKER ST DEPRESSION, CONSIDER SUBENDOCARDIAL INJURY [0.1+ mV ST DEPRESSION] ABNORMAL ECG No change compared to prior EKG Electronically Signed By: Emilio Ratliff MD [facility] Latest Reference Range & Units 11/03/24 06:28 Phosphorus, pl 2.3 - 4.5 mg/dL 2.4 Latest Reference Range & Units 11/03/24 06:28 Hgb 13.0 - 17.5 g/dL 12.0 (L) (L): Data is abnormally low Latest Reference Range & Units 11/03/24 06:28 INR 0.90 - 1.20 3.80 (H) (H): Data is abnormally high ASSESSMENT/PLAN: The patient was examined in room 420. He is resting comfortably in bed Aware he is getting ready to go to [facility] rehab facility. It is okay to discharge patient cardiology standpoint on current cardiac medications. Acute hypoxemic respiratory failure Likely 2/2 CHF exacerbation/pneumonia Dyspnea with hypoxemia appears to be improved -Pulmonary following Acute on chronic systolic HF -proBNP 8,636 on admission, 3978 on 10/31/2024 -Pleural effusion on the CT -Diuretic management per nephrology. Monitor renal function and lytes,I/o's -Continue atenolol Ischemic cardiomyopathy -S/p BIV ICD implantation History of V-tach Atrial fibrillation -S/p AV ruby ablation; paced rhythm on EKG with underlying AFib -Continue Tikosyn and atenolol -Warfarin dosing per pharmacy -Keep K>/4,mag>/2 CAD -S/p CABG -stable with no angina -Continue ASA, statins Hypertension -Bp stable/controlled Hyperlipidemia -Continue statin Hypothyroidism -Continue levothyroxine CKD clinically stable-Nephrology is following Protein malnutrition phosphorus is 24 will defer management to primary care team Hyponatremia -sodium is totally normal after giving the talvaptan. No need for talvaptan any more. No Lasix today unless Nephrology orders Patient and family would like for the patient to go to a Rehab Facility prior to discharge home. * Donte Camacho MD - 11/03/2024 7:38 AM CDT Pertinent information was reviewed full cardiology note to follow * Soledad Camacho, [facility] - 11/03/2024 7:10 AM CDT Pharmacokinetic Consult - Anticoagulation Dosing Ian Monsalve is a 84 y.o. male who has been consulted for pharmacy warfarin dosing and monitoring. Current Hematologic Labs INR Date Value Ref Range Status 11/03/2024 3.80 (H) 0.90 - 1.20 Final Comment: Interpretive data Oral anticoagulant therapeutic ranges: Venous thromboembolism prophylaxis or treatment: 2.0-3.0 CARDIOLOGY Standard range: 2.0-3.0 High-intensity range: 2.5-3.5 Refer to indication-specific guidelines for appropriate target ranges for prosthetic heart valve replacement. Current interpretive data was last revised on 2019. 11/02/2024 3.93 (H) 0.90 - 1.20 Final Comment: Interpretive data Oral anticoagulant therapeutic ranges: Venous thromboembolism prophylaxis or treatment: 2.0-3.0 CARDIOLOGY Standard range: 2.0-3.0 High-intensity range: 2.5-3.5 Refer to indication-specific guidelines for appropriate target ranges for prosthetic heart valve replacement. Current interpretive data was last revised on 2019. 11/01/2024 2.69 (H) 0.90 - 1.20 Final Comment: Interpretive data Oral anticoagulant therapeutic ranges: Venous thromboembolism prophylaxis or treatment: 2.0-3.0 CARDIOLOGY Standard range: 2.0-3.0 High-intensity range: 2.5-3.5 Refer to indication-specific guidelines for appropriate target ranges for prosthetic heart valve replacement. Current interpretive data was last revised on 2019. Hgb Date Value Ref Range Status 11/03/2024 12.0 (L) 13.0 - 17.5 g/dL Final Hct Date Value Ref Range Status 11/03/2024 36.4 (L) 38.9 - 50.3 % Final Plt Date Value Ref Range Status 11/03/2024 143 (L) 150 - 400 K/cumm Final No results found for: PTT Assessment Patient was admitted on warfarin with a dose of 2 mg on Thursday and 1 mg all other days (Thu to Thu). Patient is on warfarin for an indication of atrial fibrillation. Goal INR is 2-3. Potential interacting medications: unasyn (could potentially increase INR) Plan Date INR Dose given Comments 10/18 2mg Patient already took dose at home. Daily INR ordered 10/19 3.14 1mg Slightly above goal will give home dose today and may need to decrease for further doses 10/20 3.12 1mg 10/21 2.34 1mg 10/22 2.56 1mg 10/23-10/24 on hold 10/25 1.65 2 mg Resume home dose 10/26 1.55 2 mg 10/27 1.49 2 mg 10/28 1.54 2 mg 10/29 1.56 4 mg 10/30 1.73 3 mg 10/31 1.73 5 mg Still not at goal will increase to 5 mg today 11/01 2.69 1 mg Large increase in INR but is within goal , haven't see full effects of 5 mg, resume 1 mg home dose. May need to hold dose tomorrow if INR above range. 11/02 3.93 Hold Hold today. 11/03 3.8 Hold Will continue to follow patient's clinical progress daily. Daily average for the past days has been 2 mg, still elevated. Would recommend resuming home dosingat discharge. Soledad Camacho PharmD, BCPS * Georgina Grant, [employer] DYEING MACHINE OPERATOR - 11/02/2024 2:54 PM CDT Physical Therapy PT PROGRESS NOTE PATIENT'S NAME:Ian Monsalve :1940 AGE:84 y.o. ROOM:[facility]/[place] [id number] No past medical history on file. Past Surgical History: Procedure Laterality Date CHOLECYSTECTOMY Patient Active Problem List Diagnosis Palpitations Acute congestive heart failure, unspecified heart failure type (HCC) TIME IN: 14:54 TIME OUT: 15:30 SUBJECTIVE Patient stated I'm tired. MENTAL STATUS/ORIENTATION: alert and oriented x4 PAIN: Pre-therapy pain level: 0/10 Pain location: n/a Pain intervention: n/a Post-therapy pain level/response to intervention: 0/10 OBJECTIVE PRECAUTIONS: fall and bed / chair alarm APPEARANCE/POSTURE: Patient lying supine w/HOB elevated w/bed alarm in place and activated 2L/ O2 , peripheral IV, and lace mender , catheter MOBILITY DOCUMENTATION: Bed Mobility/Transfers: Bed mobility- supine to sit w/SBA w/HOB elevated, sit to supine w/min assist Transfers- using ww sit to/from stand w/min assist w/decreased safety Gait: Patient ambulated ioarr599'x2 w/min assist w/1 LOB w/min assist to recover w/decreased step length and heel strike APPEARANCE/POSTURE (end of session): Patient lying supine w/HOB elevated w/bed alarm in place and activated appearance otherwise unchanged from PT arrival in room HANDOFF: Verbal handoff given to nurse. ALARMS: Bed alarm in place / active EDUCATION:bed mobility , functional transfer training, and gait training RESPONSE TO EDUCATION: needs reinforcement and verbalizes understanding ASSESSMENT Activity tolerance/response to P.T.: Patient tolerated therapy w/o complaints. Patient became tearful at times reminiscing about his life and . Barriers to learning: Physical and Emotional Barriers to discharge: Limited safety awareness, Decreased endurance, Lower extremity weakness, andMedical complications Patient continues progressing toward previously set goals which remain appropriate at this time. PLAN PT Discharge Recommendations this date: PT Recommendation/Plan: Senior Care Facility Patient at high risk for: Injury due to decreased ability to care for self, Falls, Readmission, Injury due to reduced functional status, Injury due to balance deficits, Injury at home as patient has not returned to prior level of function, Mismanagement of medications, Prolonged dependence for selfcare tasks, Developing secondary complications: poor health management PT Frequency during current admission: 3-5x/wk CARE PLAN Multi-Disciplinary Problems (from Physical Therapy) Active Problems [place] [facility] [place]: 10/19/24 Goal Start Date Expected End Date End Date PT [facility] 1 10/19/24 10/27/24 -- Goal Details: Patient will transfer supine to/from sit with modified indep. Progressing towards goals Goal Start Date Expected End Date End Date PT [facility] 2 10/19/24 10/27/24 -- Goal Details: Patient will transfer sit to/from stand with modified indep. Progressing towards goals Goal Start Date Expected End Date End Date PT [facility] 3 10/19/24 10/27/24 -- Goal Details: Patient will amb 75' with wh walker and modified indep. Progressing towards goals Goal Start Date Expected End Date End Date PT [facility] 4 10/19/24 10/27/24 -- Goal Details: Patient will negotiate 1 step with appropriate method and cg assist. Progressing towards goals Goal Start Date Expected End Date End Date [facility] 5 10/19/24 10/27/24 -- Goal Details: Patient will perform ZOILA LE ROM ex with SBA. Progressing towards goals If this is the last note, please consider this the discharge summary. Cosigned by Nely Sheikh, PT at 11/02/2024 3:57 PM CDT * Vernell Pino RRT - 11/02/2024 2:48 PM CDT A Home O2 eval was placed but patient just back to bed. Patient has been up for 7 hours in chair and PT just finished with patient. * Radha Contreras COTA - 11/02/2024 2:24 PM CDT Occupational Therapy NOTE / SESSION TYPE: DAILY PROGRESS / TREATMENT Patient's Name: Ian Monsalve Age / Sex: 84 y.o. / male Room: [place] [address] : 1940 Date of service: 11/02/24 TIME IN: 1423 TIME OUT: 1447 Patient Active Problem List Diagnosis Palpitations Acute congestive heart failure, unspecified heart failure type (HCC) No past medical history on file. Past Surgical History: Procedure Laterality Date CHOLECYSTECTOMY Precautions (including weight-bearing): LIMITED CODE- NO CPR, Fall risk, and Bed / chair alarm Subjective: Thank you Therapy Pain: Pre-therapy pain level: 0 /10 Pain location: No pain - Location N/A Pain Intervention(s): No pain - Intervention N/A Post-therapy pain level: 0 /10 Pain scale reference: 0-10 SCALE Objective: Appearance: Presentation upon OT arrival: Patient Supine with head of bed elevated Presentation upon OT departure: Patient Supine with head of bed elevated Bed / Chair alarm in place and activated upon OT departure: Yes Call light within arms reach of patient at end of session: Yes Completed patient handoff and notified BOARDING MACHINE OPERATOR / RN, name: Doe, of patient's location and functional status upon completion of session Cognitive / Perceptual: A & O x 4 Living Skills / Other Activities: UE THERAPEUTIC EXERCISES: EXERCISE TYPE: CHEST MOBILIZATION EXERCISE(S) COMPLETED WITH NUMBER OF REPETITIONS: CHEST MOBILIZATION- JUMPING JACKS 10, CHEST MOBILIZATION- STRAIGHT ARMS OUT IN FRONT 10, CHEST MOBILIZATION- ELBOW CIRCLES 10, and CHEST MOBILIZATION- SHOULDER SHRUGS 10 NUMBER OF SETS: 1 ASSIST LEVEL: Initial instructions / demonstration and minimal verbal cues LOCATION OF COMPLETION: Upright with HOB elevated TOLERANCE: fair Caregiver Present: No Education & Training Provided: Role of OT, OT plan of care, UE home exercise program, and Pursed lip breathing / Relaxation techniques Assessment: Activity tolerance / response to OT session: GOOD PARTICIPATION, GOOD MOTIVATION, RECEPTIVE TO EDUCATION / TRAINING, and FREQUENT REST BREAKS REQUIRED Progress towards goals: Please refer to care plan from this date for progress towards individual goals Plan: Therapy Plan: Rehab Potential (Prognosis): good OT Recommendations This Date: OT RECOMMENDATIONS: OT Recommendation: Senior Care Facility Flow sheet updated and OT Consultation in Regards to Change in Discharge Recommendations: YES /NO: No Additional recommendation comments: Recommend SNF due to: Risk of injury at home, Unable to safely care for self in the home, Skilled therapy needed to address care for self in the home, Skilled therapy needed to address functional deficits, Skilled therapy needed for patient to return to prior level of independence Frequency of therapy:OT Frequency during current admission: 3-5x/wk If this is the last note, consider this the discharge summary LISA Ortiz 11/02/24 Cosigned by Shaun Conway OT at 11/03/2024 7:59 AM CDT * Delvin Mendenhall MD - 11/02/2024 10:47 AM CDT Nephrology Progress Note [facility] SUBJECTIVE 11/02 Na 130. Appropriate. Will dc IVF. Hematuria has resolved. Failed voiding trial. 11/01 Na 135, too rapid correction. Will change ivf. Voiding trial failed. All labs and data reviewed. 10/31 Na 123. Po tolvaptan started. PO FR. Will change to 1500 cc/24 hours. Voiding trial today. 10/[address] Gillespie, a keen observer noticed pt drinking excessive free water, this is likely contributing,PO FR started. Lasix IV times 1. Tolvaptan 15 mg po times 1 tonight. Frequent BMP. UO is now appropriate. Pt agreeable to Rehab. 10/29 Na 126. Over 11 liters urine. Overall stable. Will need IVF. 10/28 Slowly improving. Bp soft. Guerrero draining clear urine. Over 7 litres of urine reported? OBJECTIVE Vitals: Vitals: 11/02/24 0537 11/02/24 0737 11/02/24 0840 11/02/24 0846 BP: 113/67 BP Location: Left arm Patient Position: Lying Pulse: 80 78 80 Resp: 17 16 16 Temp: 36.5 ??C (97.7 ??F) TempSrc: Oral SpO2: (!) 89% 90% Weight: 85.8 kg (189 lb 2.5 oz) Height: Intake/Output Summary (Last 24 hours) at 11/02/2024 1047 Last data filed at 11/02/2024 0532 Gross per 24 hour Intake 250 ml Output 1975 ml Net -1725 ml REVIEW OF SYSTEMS Review of Systems Constitutional: Negative. HENT: Negative. Eyes: Negative. Respiratory: Negative. Cardiovascular: Negative. Gastrointestinal: Negative. Genitourinary: Negative. Musculoskeletal: Negative. Skin: Negative. Allergic/Immunologic: Negative. Hematological: Negative. All other systems reviewed and are negative. PHYSICAL EXAM Physical Exam Constitutional: Appears well-developed. HENT: wnl Head: Normocephalic. Eyes: Pupils are equal, round, and reactive to light. Neck: Normal range of motion. Neck supple. Cardiovascular: Normal rate. Pulmonary/Chest: Effort normal and breath sounds normal. Abdominal: Soft. Musculoskeletal: Normal range of motion. Neurological: Alert, oriented. Skin: Skin is warm. Nursing note and vitals reviewed. MEDICATIONS Current Facility-Administered Medications: acetaminophen (TYLENOL) tablet 500 mg, 500 mg, oral, Q6H PRN, Luan Guillermo, , 500 mg at 10/27/242019 ampicillin-sulbactam (UNASYN) 3 g in sodium chloride 0.9% 100 mL IVPB, 3 g, intravenous, Q6H [facility], Ryan Bailey MD, Last Rate: 220 mL/hr at 11/02/24 0814, 3 g at 11/02/24 08 [Held by Provider] aspirin enteric coated tablet 81 mg, 81 mg, oral, Daily, Namrata Spencer NP, 81 mg at 10/24/24 1001 atenoloL (TENORMIN) tablet 50 mg, 50 mg, oral, Daily, Namrata Spencer NP, 50 mg at 11/02/24 0814 atorvastatin (LIPITOR) tablet 20 mg, 20 mg, oral, Nightly, Namrata Spencer NP, 20 mg at 11/01/242045 calcitRIOL (ROCALTROL) capsule 0.25 mcg, 0.25 mcg, oral, Daily, Namrata Spencer NP, 0.25mcg at 11/02/24 0814 clorazepate (TRANXENE) tablet 7.5 mg, 7.5 mg, oral, BID PRN, Luan Guillermo DO, 7.5 mg at 10/31/24 1610 dextrose 5% infusion, 75 mL/hr, intravenous, Continuous, Delvin Mendenhall MD, Last Rate: 75 mL/hr at 11/01/242055, 75 mL/hr at 11/01/242055 dofetilide (TIKOSYN) capsule 125 mcg, 125 mcg, oral, BID, Namrata Spencer NP, 125 mcg at11/02/24 0824 fenofibrate nanocrystallized (TRICOR) tablet 145 mg, 145 mg, oral, Daily, Namrata Spencer NP, 145 mg at 11/02/24 0824 fluticasone propionate (FLONASE) 50 mcg/actuation nasal spray 2 spray, 2 spray, each nostril, DailyPRN, Namrata Spencer NP ipratropium-albuteroL (DUO-NEB) 0.5-2.5 mg/3 mL nebulizer solution 3 mL, 3 mL, nebulization, Q6H While awake (RT), Ryan Bailey MD, 3 mL at 11/02/24 0840 levothyroxine (SYNTHROID) tablet 25 mcg, 25 mcg, oral, Daily - 0600, Namrata Spencer NP,25 mcg at 11/02/24 0530 midodrine (PROAMATINE) tablet 10 mg, 10 mg, oral, TID AC, Delvin Mendenhall MD, 10 mg at 11/02/24 0814 ondansetron (ZOFRAN) injection 4 mg, 4 mg, intravenous, Q6H PRN, Namrata Spencer NP pantoprazole DR (PROTONIX) extended release tablet 40 mg, 40 mg, oral, Daily, Carla Jean MD,40 mg at 11/02/24813 ramelteon (ROZEREM) tablet 8 mg, 8 mg, oral, Nightly PRN, Namrata Spencer NP, 8 mg at 11/01/242055 senna-docusate (PERICOLACE) 8.6-50 mg per tablet 1 tablet, 1 tablet, oral, BID, Luan Guillermo DO, 1 tablet at 11/02/24 0814 tamsulosin (FLOMAX) extended release capsule 0.4 mg, 0.4 mg, oral, Daily with dinner, Luan Guillermo DO, 0.4 mg at 11/01/24 1728 Lab/Radiology/Diagnostic Review: Recent Results (from the past 24 hours) CBC with auto differential Collection Time: 11/02/24 7:24 AM Result Value Ref Range WBC 4.11 3.80 - 9.90 K/cumm Hgb 12.2 (L) 13.0 - 17.5 g/dL Hct 36.7 (L) 38.9 - 50.3 % Plt 147 (L) 150 - 400 K/cumm MPV 11.0 9.1 - 12.3 fL RBC 3.90 (L) 4.30 - 5.80 M/cumm MCV 94.1 81.3 - 96.4 fL MCH 31.3 27.1 - 33.3 pg MCHC 33.2 32.3 - 35.7 g/dL RDW CV 16.6 (H) 11.1 - 14.9 % RDW SD 57.5 (H) 35.7 - 48.1 fL NRBC abs 0.00 0.00 - 0.01 K/cumm Protime-INR Collection Time: 11/02/24 7:24 AM Result Value Ref Range PT 43.7 (H) 9.7 - 13.0 sec INR 3.93 (H) 0.90 - 1.20 Renal function panel Collection Time: 11/02/24 7:24 AM Result Value Ref Range Sodium 135 135 - 145 mmol/L Potassium, pl 3.7 3.3 - 4.9 mmol/L Chloride 96 (L) 97 - 110 mmol/L CO2 32 22 - 32 mmol/L Anion gap 7 2 - 15 mmol/L BUN 29 (H) 6 - 25 mg/dL Creatinine 1.27 0.80 - 1.30 mg/dL Glucose 119 70 - 199 mg/dL Calcium 8.4 (L) 8.5 - 10.3 mg/dL Phosphorus, pl 2.5 2.3 - 4.5 mg/dL Albumin 2.9 (L) 3.5 - 5.0 g/dL Differential, auto Collection Time: 11/02/24 7:24 AM Result Value Ref Range Neutrophil abs 3.09 1.50 - 6.50 K/cumm Imm gran abs 0.02 0.00 - 0.10 K/cumm Lymphocyte abs 0.54 (L) 0.80 - 3.30 K/cumm Monocyte abs 0.35 0.20 - 0.80 K/cumm Eosinophil abs 0.09 0.00 - 0.50 K/cumm Basophil abs 0.02 0.00 - 0.10 K/cumm Neutrophil pct 75.2 % Imm gran pct 0.5 % Lymphocyte pct 13.1 % Monocyte pct 8.5 % Eosinophil pct 2.2 % Basophil pct 0.5 % eGFR Collection Time: 11/02/24 7:24 AM Result Value Ref Range eGFR 56 (L) >=60 mL/min/1.73 m2 XR Chest 1 View Result Date: 10/27/2024 Narrative: EXAMINATION: XR CHEST 1 VIEW HISTORY: The patient is an 84-year-old male who presents with shortness of breath. Comparison made with the previous study dated 10/26/2024. TECHNIQUE: AP portable view of the chest. FINDINGS: Cardiomegaly with aortic atherosclerosis. Findings of pulmonary vascular congestion. No focal consolidation. Impression: Cardiomegaly with pulmonary vascular congestion. Electronically signed by: Coco Youngblood M.D. XR Chest 1 View Result Date: 10/26/2024 Narrative: EXAMINATION: XR CHEST 1 VIEW HISTORY: The patient is a 84-year-old male who presents with shortness of breath. Comparison made with the previous study dated 10/24/2024. TECHNIQUE: AP portable view of the chest. FINDINGS: Cardiomegaly with aortic atherosclerosis. Findings of pulmonary vascular congestion. No focal infiltrate seen. Impression: Cardiomegaly with pulmonary vascular congestion. Electronically signed by: Coco Youngblood M.D. XR Chest 1 Vw Portable Result Date: 10/24/2024 Narrative: EXAMINATION: XR CHEST 1 VIEW HISTORY: The patient is an 84-year-old male who presents with hypoxia. Comparison made with the previous study dated 10/23/2024. TECHNIQUE: AP portable view ofthe chest. FINDINGS: Cardiomegaly with aortic atherosclerosis. Findings of pulmonary vascular congestion. Right lower lobe infiltrate with the remainder of the lungs being clear. Impression: Findings as described above. Electronically signed by: Coco Youngblood M.D. XR Chest 1 Vw Portable Result Date: 10/23/2024 Narrative: Examination: XR CHEST 1 VIEW Date: 10/23/2024 7:20 AM History: effusion Comparison: 10/18/2024. Findings: Normal heart size, sternotomy and left AICD is again seen. A small right effusion andmoderate right lower lobe infiltrate with patchy consolidation is unchanged. Impression: Persistent right effusion with patchy right lower lobe consolidation. Electronically signed by: Perla Cowart M.D. CT Abdomen Pelvis WO Contrast Result Date: 10/21/2024 Narrative: EXAMINATION: CT ABDOMEN PELVIS WO CONTRAST DATE: 10/21/2024 5:35 AM HISTORY: Weight loss,unintended TECHNIQUE: Images through the abdomen and pelvis were obtained without contrast. FINDINGS: There are bilateral pleural effusions. There is bilateral lower lobe atelectasis. 26 mm left hepatic cyst is present. The patient is status post cholecystectomy. There is no biliary ductal dilatatio n. The spleen, pancreas and adrenal glands are grossly normal on this noncontrast examination. There is mild bilateral perinephric stranding. There is no hydronephrosis, hydroureter or renal calculus. There are several small exophytic left renal lesions which cannot be further characterized on this noncontrast examination. There is no free air or fluid. There is no bowel obstruction. The appendixis not identified with confidence. There are multiple colonic diverticula. There is a 43 mm infrarenal abdominal aortic aneurysm. There are postoperative changes of the aortobiiliac bypass. Radiationtherapy changes are noted in the prostate. Impression: Limited study secondary to lack of intravenous contrast. No acute intra-abdominal abnormality. Colonic diverticulosis. Bilateral pleural effusions and bilateral lower lobe atelectasis. 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 Electronically signed by: Neel Morrison M.D. Transthoracic Echo (TTE) Complete W Doppler/CF Result Date: 10/21/2024 Narrative: [place] [address] Echocardiogram Report Patient Name: IAN MONSALVE H : 1940 Study Date: 10/20/2024 12:11:53 PM Gender: M Tech: Location: [place] [address] Ref Provider: CARLA JEAN Height(Cm): 170 BSA: 1.93 Weight(Kg): 79 Heart Rate: 80 BP: 90 / 55 Quality: Good Order Provider: CARLA JEAN PROCEDURES: Echocardiographic Report: Transthoracic echocardiogram with complete 2D, M-Mode, color Doppler examination and contrast. INDICATIONS: Congestive Heart Failure. MEASUREMENTS: 2D/MM Value Ra nge Doppler Value Range EF Mod BP 37 % [ 52 - 72 ] NIR Vmax 1.83 cm2 LVIDd 2D 4.85 cm [ 4.20 - 5.80] AV Mean PG 3 mmHg LVIDs 2D [...] LVOT 16.9 ml/m2 [ >= 35.0 ] AoRDiam MM 2.95 cm [ 3.10 - 3.70 [...] atrial septum. Left Ventricle: Left ventricle cavity iswithin upper limits of normal. Optison contrast agent used to visually enhance endocardial wall motion and contractility. Moderate concentric left ventricular hypertrophy. Moderate global left ventricular systolic dysfunction. Diastolic dysfunction is present. Increased left heart filling pressuresbased on elevated E/E`. Ejection fraction is measured [...] biatrial enlargement. Linear artifact in right atrium. Normalstructure of the mitral valve. Mild mitral valve regurgitation. Aortic cusps appear mildly sclerotic. No evidence of hemodynamically significant aortic stenosis by Doppler. [id number] pulmonary hypertension, estimated RVSP 60 mmHg. Moderate tricuspid regurgitation. Electronically Signed By:Clive Godfrey MD, [facility] 10/21/2024 6:43:00 AM CDT US Retroperitoneal Complete Result Date: 10/19/2024 Narrative: EXAMINATION: RENAL ULTRASOUND Date: 10/19/2024 2:20 PM History: Kidney failure, acute Comparison: None. Findings: The right kidney measures 10.5 x 4.7 x 4.0 cm . Parenchymal echogenicity iswithin normal limits. There is no hydronephrosis, calculus, or perinephric fluid. Possible corticalmass in the right kidney measuring 1.4 x 1.3 x 1.4 cm The left kidney measures 10.6 x 5.0 x 4.0 cm.Parenchymal echogenicity is within normal limits. There is no hydronephrosis, calculus or perinephric fluid. Simple cysts measuring up to 1.9 cm in the left kidney. The bladder Is unremarkable. Prostate is enlarged measuring 4.2 x 4.6 x 5.3 cm Impression: 1. Possible mass in the right kidney measuring up to 1.4 cm. Suggest MRI of the kidneysfor further evaluation. 2. Enlarged prostate. Electronically signed by: Rajendra Oh II, D.O. CT Chest WO Contrast Result Date: 10/18/2024 Narrative: EXAMINATION: Computed tomography of the chest without intravenous contrast HISTORY: Abnormal chest radiograph. TECHNIQUE: Transaxial computed tomographic images of the chest were obtained without intravenous contrast according to the standard protocol. COMPARISON: Chest radiograph dated same day. FINDINGS: There is a moderately sized right pleural effusion with fluid in the right majorfissure and right upper, middle, and lower lobe consolidations most notable in the right lower lobe. Small left pleural effusion with left lower lobe atelectasis. Severe centrilobular emphysematous changes. Poststernotomy changes. Mild mediastinal lymphadenopathy with largest mediastinal node measur ing 1.1 cm in short axis dimension. Nodules in the left upper lobe, largest measuring approximately1.1 x 0.5 cm. Follow-up suggested. Main pulmonary [...] may represent pseudo-thickening from underdistention versus gastritis. Impression: 1. Moderately sized right pleural effusion with [...] gastritis. Electronically signed by: Rajendra Oh II, D.OLexi ECG 12 lead Result Date: 10/18/2024 Narrative: Vent Rate: 80 bpm RR Interval: 749 msec RI Interval: 140 msec QRS Duration: 164 msec QT Interval: 377 msec QTC Interval: 412 msec P-R-T [place]: -52 - 226 - 226 degrees IMPRESSION: ELECTRONICVENTRICULAR PACEMAKER ST DEPRESSION, CONSIDER SUBENDOCARDIAL INJURY [0.1+ mV ST DEPRESSION] ABNORMAL ECG No change compared to prior EKG Electronically Signed By: Emilio GALLOB XR Chest 1 Vw Portable Result Date: 10/18/2024 Narrative: EXAMINATION: XR CHEST 1 VIEW DATE: 10/18/2024 11:20 AM INDICATION: Shortness of breath. COMPARISON: 02/23/2023. Impression: ICD leads are intact. Post sternotomy changes are noted. Cardiac mediastinal silhouettewithin normal limits. There is a small right pleural effusion. Opacities in the right lower lobe suggestive of pneumonia, increased from prior. Follow-up suggested to ensure resolution. No acute osseous abnormality. Electronically signed by: Rajendra Oh II, D.O. ASSESSMENT/PLAN CKD 3b CRS. CHF/dyspnea. R LL PNA. MBD. ICD status. RECOMMENDATIONS IV diuresis. CKD [place]. Overall improved. -10/20, BP low, start midodrine, IV ABX, decrease diuresis, CT scan kidneys. -10/21, urinary retention, ROSA worse, guerrero placed, will follow, CT scan to be reviewed. -10/22, CT scan kidneys shows exophytic cysts, will do MRI as o/p, continue guerrero, ROSA better, good UO, no new changes, difficult guerrero yesterday. -Cr 1.7 and baseline, dyspnea better, gross hematuria, difficult guerrero, traumatic hematuria, Needs CBI, will reconsult Urology. -cr is baseline, guerrero irrigation, likely needs thoracentesis, for both diagnostic and therapeutic purposes, avss, lytes stable. -CR is stable, cxr better, can switch to po diuretics tomorrow. -stable labs, BP soft, OT/PT, CMR eval, same tx, hold diuresis, po midodrine, continue guerrero, will retain on IP dc. Renal mass will be evaluated as o/p. -Start normotonic IVF, tolvaptan will not work in most cases with met alkalosis, he has some edema but that seems like third spacing, long d/w family, they want SNF and can't take care of him at home. -Critical hyponattremia possibly from excessive PO free water intake, Lasix iv times 1, tolvaptan 15 mg daily for 2 days, Rehab eval, d/w family and Dr Gillespie via text. -Na 123, still critical but better, po FR, loop diuresis carefully, DC IVF, Tolvaptan daily times 2, d/w family. -Na 135, as above, replace guerrero, traumatic hematuria is to be expected. -Na 130, DC IVF, guerrero now draining clear urine, will follow. I can be reached at [phone] with any concerns. Thank you Luan Guillermo DO for the consult. Delvin Mendenhall MD [employer] [phone] * Jazzy Ring, PHYSICAL SCIENTIST - 11/02/2024 8:44 AM CDT 11/02/24 0840 RT Protocol Assessment RT Assessment Scoring Needed Bronchodilator Bronchodilator Assessment Scoring Pulmonary Status 3 Surgical Status <30 days ago 0 Chest X-Ray < WEEK 2 Respiratory Pattern 0 Mental Status/LOC 0 Cough 2 Breath Sounds 2 Level of Activity 1 Oxygen Required for SPO2 >92% 1 Bronchodilator Assessment Score 11 * Luan Guillermo, DO - 11/02/2024 8:40 AM CDT Daily Progress Subjective Chief complaint of Dyspnea. Interval History: Patient seen and examined at bedside. No apparent distress. Sitting up in chair -no new complaints. Remains 2L NC. Guerrero remains in place. Working on SNF placement. Spoke to CM - should have approval tomorrow. Will need new home O2 assessment. Objective Physical Exam: Gen: In no apparent distress Neuro: Alert, oriented in time place and person. Pulmonary: Not dyspneic. Fine basal crackles Cardiovascular: HS 1, 2 . regular rhythm. No murmurs heard. Moderate bilateral pitting lower extremity edema. : Guerrero catheter in place with bloody urine. Lab/Radiology/Diagnostic Review: Laboratory review: Lab results in the last 24 hours: Recent Results (from the past 24 hours) CBC with auto differential Collection Time: 11/02/24 7:24 AM Result Value Ref Range WBC 4.11 3.80 - 9.90 K/cumm Hgb 12.2 (L) 13.0 - 17.5 g/dL Hct 36.7 (L) 38.9 - 50.3 % Plt 147 (L) 150 - 400 K/cumm MPV 11.0 9.1 - 12.3 fL RBC 3.90 (L) 4.30 - 5.80 M/cumm MCV 94.1 81.3 - 96.4 fL MCH 31.3 27.1 - 33.3 pg MCHC 33.2 32.3 - 35.7 g/dL RDW CV 16.6 (H) 11.1 - 14.9 % RDW SD 57.5 (H) 35.7 - 48.1 fL NRBC abs 0.00 0.00 - 0.01 K/cumm Protime-INR Collection Time: 11/02/24 7:24 AM Result Value Ref Range PT 43.7 (H) 9.7 - 13.0 sec INR 3.93 (H) 0.90 - 1.20 Renal function panel Collection Time: 11/02/24 7:24 AM Result Value Ref Range Sodium 135 135 - 145 mmol/L Potassium, pl 3.7 3.3 - 4.9 mmol/L Chloride 96 (L) 97 - 110 mmol/L CO2 32 22 - 32 mmol/L Anion gap 7 2 - 15 mmol/L BUN 29 (H) 6 - 25 mg/dL Creatinine 1.27 0.80 - 1.30 mg/dL Glucose 119 70 - 199 mg/dL Calcium 8.4 (L) 8.5 - 10.3 mg/dL Phosphorus, pl 2.5 2.3 - 4.5 mg/dL Albumin 2.9 (L) 3.5 - 5.0 g/dL Differential, auto Collection Time: 11/02/24 7:24 AM Result Value Ref Range Neutrophil abs 3.09 1.50 - 6.50 K/cumm Imm gran abs 0.02 0.00 - 0.10 K/cumm Lymphocyte abs 0.54 (L) 0.80 - 3.30 K/cumm Monocyte abs 0.35 0.20 - 0.80 K/cumm Eosinophil abs 0.09 0.00 - 0.50 K/cumm Basophil abs 0.02 0.00 - 0.10 K/cumm Neutrophil pct 75.2 % Imm gran pct 0.5 % Lymphocyte pct 13.1 % Monocyte pct 8.5 % Eosinophil pct 2.2 % Basophil pct 0.5 % eGFR Collection Time: 11/02/24 7:24 AM Result Value Ref Range eGFR 56 (L) >=60 mL/min/1.73 m2 Current Facility-Administered Medications Medication Dose Route Frequency Provider Last Rate Last Admin acetaminophen (TYLENOL) tablet 500 mg 500 mg oral Q6H PRN Luan Guillermo DO 500 mg at 10/27/242019 ampicillin-sulbactam (UNASYN) 3 g in sodium chloride 0.9% 100 mL IVPB 3 g intravenous Q6H Ryan Jones MD 220 mL/hr at 11/02/24 1514 Rate Verify at 11/02/24 1514 [Held by Provider] aspirin enteric coated tablet 81 mg 81 mg oral Daily Namrata Spencer NP 81 mg at 10/24/24 1001 atenoloL (TENORMIN) tablet 50 mg 50 mg oral Daily Namrata Spencer NP 50 mg at 11/02/24 0814 atorvastatin (LIPITOR) tablet 20 mg 20 mg oral Nightly Namrata Spencer NP 20 mg at 11/01/242045 calcitRIOL (ROCALTROL) capsule 0.25 mcg 0.25 mcg oral Daily Namrata Spencer NP 0.25 mcg at 11/02/24 0814 clorazepate (TRANXENE) tablet 7.5 mg 7.5 mg oral BID PRN Luan Guillermo DO 7.5 mg at 11/02/24 1314 dextrose 5% infusion 75 mL/hr intravenous Continuous Delvin Mendenhall MD 75 mL/hr at 11/01/242055 75 mL/hr at 11/01/242055 dofetilide (TIKOSYN) capsule 125 mcg 125 mcg oral BID Namrata Spencer NP 125 mcg at 11/02/24 0824 fenofibrate nanocrystallized (TRICOR) tablet 145 mg 145 mg oral Daily Namrata Spencer NP145 mg at 11/02/24 0824 fluticasone propionate (FLONASE) 50 mcg/actuation nasal spray 2 spray 2 spray each nostril Daily PRN Namrata Spencer NP ipratropium-albuteroL (DUO-NEB) 0.5-2.5 mg/3 mL nebulizer solution 3 mL 3 mL nebulization Q6H [place] (RT) Ryan Bailey MD 3 mL at 11/02/24 1438 levothyroxine (SYNTHROID) tablet 25 mcg 25 mcg oral Daily - 0600 Namrata Spencer NP 25 mcg at 11/02/24 0530 midodrine (PROAMATINE) tablet 10 mg 10 mg oral TID AC Dlevin Mendenhall MD 10 mg at 11/02/24 1207 ondansetron (ZOFRAN) injection 4 mg 4 mg intravenous Q6H PRN Namrata Spencer NP pantoprazole DR (PROTONIX) extended release tablet 40 mg 40 mg oral Daily Carla Jean MD 40 mg at 11/02/24 0814 ramelteon (ROZEREM) tablet 8 mg 8 mg oral Nightly PRN Namrata Spencer NP 8 mg at 11/01/242055 senna-docusate (PERICOLACE) 8.6-50 mg per tablet 1 tablet 1 tablet oral BID Luan Guillermo DO 1 tablet at 11/02/24 0814 tamsulosin (FLOMAX) extended release capsule 0.4 mg 0.4 mg oral Daily with dinner Luan Guillermo, 0.4 mg at 11/01/24 1728 Vitals: 24hr Min/Max: Temp Min: 36.4 ??C (97.5 ??F) Max: 36.6 ??C (97.9 ??F) Pulse Min: 58 Max: 82 BP Min: 100/70 Max: 120/66 Resp Min: 17 Max: 18 SpO2 Min: 89 % Max: 96 % Most Recent : Vitals: 11/02/24 0737 BP: 113/67 Pulse: 80 Resp: 17 Temp: 36.5 ??C (97.7 ??F) SpO2: (!) 89% I/O last 2 completed shifts: In: 250 [P.O.:150; I.V.:100] Out: 1974 [Urine:1975] No intake/output data recorded. Assessment/Plan Principal Problem: Acute congestive heart failure, unspecified heart failure type (HCC) Hypervolemic Hyponatremia: Possibly due to primary polydipsia. Resolved. Continue fluid restrictionfor now. Sodium 135 - continue to monitor. Acute hypoxic respiratory failure on admission. Differential includes CHF exacerbation, pneumonia. Currently on 2L NC - titrate as able. CXR - Persistent right effusion with patchy right lower lobe consolidation. 10/24: Repeat x-ray showing pulmonary vascular congestion right lower lobe infiltrate. Home O2 evaluation completed 10/28. Patient requiring 3 L with rest, 6 L with ambulation. Repeat home oxygen assessment in anticipation of Discharge. Heart failure with reduced EF, acute on chronic: Initial BNP 8636. 2D echo performed- EF 37%, Mod-Severe pulmonary htn, Diastolic dysfunction present. Received IV lasix. Continue atenolol. Cardiologyservice consulted. Moderate to severe pulmonary hypertension Moderately sized right pleural effusion with consolidations in the right upper, right lower, and right middle lobes suggestive of multifocal pneumonia, on admission CT. Respiratory PCR negative. Blood cultures NGTD. Strep pneumoniae and Legionella antigens are negative. Was on azithromycin, Rocephin starting on 10/18/2024; on 10/19/2024 Rocephin was changed to Unasyn - continue unasyn. Per pulmonology, thoracentes no longer needed at this time - coumadin resumed.repeat CXR PVC, RLL infiltrate. Will need repeat imaging in 4-6 weeks otherwise. Plan for 3-4 weeks of total antibiotics as per pulmonology Multiple left upper lobe pulmonary nodules largest measuring 1.1 cm, on admission CT. Dilated main pulmonary artery suggestive of pulmonary arterial hypertension, on admission CT. Severe centrilobular emphysematous changes, on admission CT. Nonspecific mild gastric wall thickening may represent pseudo-thickening from underdistention versus gastritis, on admission CT. On PPI. Atrial fibrillation, currently paced. Previously on digoxin. Now On Tikosyn. Coumadin resumed. Monitor INR Hyperlipidemia: Continue atorvastatin Hypothyroidism: Synthroid. Hypophosphatemia: Replace phosphate. Recheck in a.m.. CAD. S/p coronary artery bypass graft x two - left internal mammary artery to the left anterior descending, left radial artery to the posterior descending artery, on 02/24/1997. History of VT, status post ablation on 12/31/2015, 04/08/2016 EP study. Hypotension - improved with midodrine Right Kidney Mass - US retroperitoneum - Right kidney mass up to 1.4 cm - MRI recommended, patient with defibrillator - not able to obtain an MRI. Urine retention - Guerrero catheter in place. Tamsulosin initiated. Urology following voiding trial- failed. Urology recommending continued guerrero care - will need to follow up with outpatient urology Gross Hematuria: likely 2/2 trauma from guerrero insertion + being on blood thinners. Urology consulted. Held warfarin, now resumed. Resolved but reoccurred 10/30. Appears to be clearing today. Monitor H&H. Constipation -continue laxatives. ROSA on CKD: Monitor renal function. Avoid nephrotoxic agents. Nephrology consulted. Thrombocytopenia : Stable. Monitor Nonspecific troponin elevation PT and OT as tolerated DVT prophylaxis: Coumadin GI prophylaxis: Proton Anticipated DC to [facility] tomorrow * Soledad Camacho, [facility] - 11/02/2024 8:02 AM CDT Pharmacokinetic Consult - Anticoagulation Dosing Ian Monsalve is a 84 y.o. male who has been consulted for pharmacy warfarin dosing and monitoring. Current Hematologic Labs INR Date Value Ref Range Status 11/02/2024 3.93 (H) 0.90 - 1.20 Final Comment: Interpretive data Oral anticoagulant therapeutic ranges: Venous thromboembolism prophylaxis or treatment: 2.0-3.0 CARDIOLOGY Standard range: 2.0-3.0 High-intensity range: 2.5-3.5 Refer to indication-specific guidelines for appropriate target ranges for prosthetic heart valve replacement. Current interpretive data was last revised on 2019. 11/01/2024 2.69 (H) 0.90 - 1.20 Final Comment: Interpretive data Oral anticoagulant therapeutic ranges: Venous thromboembolism prophylaxis or treatment: 2.0-3.0 CARDIOLOGY Standard range: 2.0-3.0 High-intensity range: 2.5-3.5 Refer to indication-specific guidelines for appropriate target ranges for prosthetic heart valve replacement. Current interpretive data was last revised on 2019. 10/31/2024 1.73 (H) 0.90 - 1.20 Final Comment: Interpretive data Oral anticoagulant therapeutic ranges: Venous thromboembolism prophylaxis or treatment: 2.0-3.0 CARDIOLOGY Standard range: 2.0-3.0 High-intensity range: 2.5-3.5 Refer to indication-specific guidelines for appropriate target ranges for prosthetic heart valve replacement. Current interpretive data was last revised on 2019. Hgb Date Value Ref Range Status 11/02/2024 12.2 (L) 13.0 - 17.5 g/dL Final Hct Date Value Ref Range Status 11/02/2024 36.7 (L) 38.9 - 50.3 % Final Plt Date Value Ref Range Status 11/02/2024 147 (L) 150 - 400 K/cumm Final No results found for: PTT Assessment Patient was admitted on warfarin with a dose of 2 mg on Thursday and 1 mg all other days (Thu to Thu). Patient is on warfarin for an indication of atrial fibrillation. Goal INR is 2-3. Potential interacting medications: unasyn (could potentially increase INR) Plan Date INR Dose given Comments 10/18 2mg Patient already took dose at home. Daily INR ordered 10/19 3.14 1mg Slightly above goal will give home dose today and may need to decrease for further doses 10/20 3.12 1mg 10/21 2.34 1mg 10/22 2.56 1mg 10/23-10/24 on hold 10/25 1.65 2 mg Resume home dose 10/26 1.55 2 mg 10/27 1.49 2 mg 10/28 1.54 2 mg 10/29 1.56 4 mg 10/30 1.73 3 mg 10/31 1.73 5 mg Still not at goal will increase to 5 mg today 11/01 2.69 1 mg Large increase in INR but is within goal , haven't see full effects of 5 mg, resume 1 mg home dose. May need to hold dose tomorrow if INR above range. 11/02 2.93 Hold Hold today. Will continue to follow patient's clinical progress daily. Soledad Camacho PharmD, BCPS * Shailesh Pabon MD - 11/02/2024 7:46 AM CDT Pulmonary Daily Progress Chief complaint/reason for consult: New O2 requirement, Pulmonary nodules, pulmonary hypertension . Interval History: Has been on 2-4L w sats low 90s Resting comf at time of my eval No fevers Presenting History: 84 y/o CM who presented to the ED on 10/18/24 with complaints of shortness of breath that had been worsening over the last week. He was reportedly satting 70% on room air when EMSarrived. 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 States he has been having increased BAH. Does have cough at times that is productive of clear sputum. Started smoking age 12 and quit in 1996, smoked up to 1.5 ppd for 44 years, giving a 66 pack year hx. He has been on amiodarone in the past but not for sometime. 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 No service. CT Chest 10/18/24: Very severe emphysematous changes, moderate right pleural effusion, lung nodules Carries a hx of atrial fibrillation s/p multiple ablations, HFrEF, ischemic cardiomyopathy s/p BiVICD, CKD, CAD s/p CABG, Allergies: Allergies Allergen Reactions Trazodone Hcl Unknown Morphine Hydrocodone Unknown Lunesta [Eszopiclone] Other (See comments) Gave him crazy dreams Tramadol Nausea only Vicodin [Hydrocodone-Acetaminophen] Nausea only Medications: Scheduled Meds:ampicillin-sulbactam, 3 g, intravenous, Q6H THERESA [Held by Provider] aspirin, 81 mg, oral, Daily atenoloL, 50 mg, oral, Daily atorvastatin, 20 mg, oral, Nightly calcitRIOL, 0.25 mcg, oral, Daily dofetilide, 125 mcg, oral, BID fenofibrate nanocrystallized, 145 mg, oral, Daily ipratropium-albuteroL, 3 mL, nebulization, Q6H While awake (RT) levothyroxine, 25 mcg, oral, Daily - 0600 midodrine, 10 mg, oral, TID AC pantoprazole DR, 40 mg, oral, Daily senna-docusate, 1 tablet, oral, BID tamsulosin, 0.4 mg, oral, Daily with dinner Continuous Infusions:dextrose 5%, 75 mL/hr, Last Rate: 75 mL/hr (11/01/242055) PRN Meds:. acetaminophen clorazepate fluticasone propionate ondansetron ramelteon ROS Above review of system reviewed on 11/02/2024 Vitals: Vitals: 11/02/24 0459 11/02/24 0502 11/02/24 0537 11/02/24 0737 BP: 120/66 113/67 BP Location: Left arm Left arm Patient Position: HOB 30 degrees Lying Pulse: 80 58 80 Resp: 18 17 Temp: 36.4 ??C (97.5 ??F) 36.5 ??C (97.7 ??F) TempSrc: Oral Oral SpO2: (!) 89% 96% (!) 89% Weight: 85.8 kg (189 lb 2.5 oz) Height: Temp (24hrs), Av.4 ??C (97.6 ??F), Min:36.4 ??C (97.5 ??F), Max:36.6 ??C (97.9 ??F) Intake/Output Summary (Last 24 hours) at 11/02/2024 0746 Last data filed at 11/02/2024 0532 Gross per 24 hour Intake 250 ml Output 1975 ml Net -1725 ml Physical Exam Vitals and nursing note reviewed. Constitutional: General: He is not in acute distress. Appearance: He is well-developed. HENT: Head: Normocephalic and atraumatic. Comments: Hard of hearing Nose: Nose normal. Mouth/Throat: Mouth: Mucous membranes are moist. Eyes: Conjunctiva/sclera: Conjunctivae normal. Cardiovascular: Rate and Rhythm: Normal rate and regular rhythm. Heart sounds: No murmur heard. Pulmonary: Effort: Pulmonary effort is normal. No respiratory distress. Breath sounds: No stridor. Decreased breath sounds present. No wheezing, rhonchi or rales. Abdominal: General: Bowel sounds are normal. Palpations: Abdomen is soft. Musculoskeletal: Right lower leg: No edema. Left lower leg: No edema. Skin: General: Skin is warm and dry. Psychiatric: Behavior: Behavior normal. Lab/Radiology/Diagnostic Review: Labs: Recent Labs Lab Units 11/02/24 0724 11/01/24 0400 10/31/24 0006 WBC K/cumm 4.11 2.97* 3.03* HEMOGLOBIN g/dL 12.2* 12.1* 11.3* HEMATOCRIT % 36.7* 36.3* 33.1* PLATELETS K/cumm 147* 133* 124* NEUTROS PCT % 75.2 71.1 69.4 LYMPHS PCT % 13.1 14.8 14.2 MONOS PCT % 8.5 10.1 13.5 EOS PCT % 2.2 3.4 2.3 Recent Labs Lab Units 11/01/24 0400 10/31/24 0006 10/30/24 1603 SODIUM mmol/L 137 123* 121* POTASSIUM PLASMA mmol/L 3.4 3.7 4.0 CHLORIDE mmol/L 96* 89* 85* CO2 mmol/L 35* 30 26 ANIONGAP mmol/L 6 4 10 GLUCOSE mg/dL 92 106 110 BUN SERUM mg/dL 34* 32* 30* CREATININE mg/dL 1.37* 1.26 1.19 CALCIUM mg/dL 8.4* 7.6* 7.8* ALBUMIN g/dL 2.8* -- -- Imaging: CXR 11/01/24: overall improvement in PVC and effusion Other diagnostic tests: Echo 10/20/24: EF 37%, LVDD, RV volume overload, RVSP 60 I have personally reviewed above laboratory findings, chest imaging, and diagnostic tests 11/02/2024 Assessment and Plan: Acute hypoxic respiratory insufficiency Severe emphysema RLL cavitary lesion: pneumonia vs malignancy vs bullous disease B effusions, R>L, likely due to CHF, parapneumonic also possible; persistent but clinically doesnot appear infected and does have ongoing volume overload Afib CHF CKD CAD w hx CABG Hyponatremia; improved Recs: - Wean supplemental O2 for SpO2 88-92% - Nebs TID - Unasyn day 15, completed azithromycin. Given cavitary lesion would continue augmentin at discharge for total treatment period of 3-4 weeks. - if signs ongoing infection would need thoracentesis; for now favor monitoring given likely CHF and anticoagulation - Will need repeat CT chest imaging in 4-6 weeks - nephrology following - O2 assessment prior to d/c -dispo planning in progress * Donte Camacho MD - 11/02/2024 7:34 AM CDT Cardiology follow-up note-[facility] Pertinent information was reviewed patient . The patient was examined. He is resting comfortably in bed No past medical history on file. Past Surgical History: Procedure Laterality Date CHOLECYSTECTOMY Medications Prior to Admission Medication Sig Dispense Refill Last Dose/Taking aspirin 81 mg enteric coated tablet Take 1 tablet (81 mg total) by mouth daily 10/18/2024 Morning atenoloL (TENORMIN) 50 mg tablet Take 1 tablet (50 mg total) by mouth daily 10/17/2024 atorvastatin (LIPITOR) 20 mg tablet Take 1 tablet (20 mg total) by mouth nightly 10/17/2024 Bedtime calcitRIOL (ROCALTROL) 0.25 mcg capsule Take 1 capsule (0.25 mcg total) by mouth daily 10/18/2024 Morning clorazepate (TRANXENE) 15 mg tablet Take 0.5 tablets (7.5 mg total) by mouth 2 (two) times a day 10/18/2024 Morning digoxin (LANOXIN) 250 mcg (0.25 mg) tablet Take 1 tablet (250 mcg total) by mouth 3 (three) times aweek on Thu, Thu, Thu10/17/2024 ergocalciferol (VITAMIN D) 50,000 unit capsule Take 1 capsule (50,000 Units total) by mouth once a week on Sat Past Week fenofibrate nanocrystallized (TRICOR) 145 mg tablet Take 1 tablet (145 mg total) by mouth daily 10/17/2024 fluticasone propionate (Flonase Allergy Relief) 50 mcg/actuation nasal spray Administer 2 sprays into each nostril daily as needed for rhinitis or allergies Past Week levothyroxine (SYNTHROID) 25 mcg tablet Take 1 tablet (25 mcg total) 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 10/18/2024 Morning Tikosyn 125 mcg capsule Take 1 capsule (125 mcg total) by mouth 2 (two) times a day 10/18/2024 Morning warfarin (COUMADIN) 2 mg tablet Take 1 tablet (2 mg total) by mouth once a week on Tuesdays10/18/2024 Morning warfarin (COUMADIN) 2 mg tablet Take 0.5 tablets (1 mg total) by mouth 6 (six) times a week from Thursday to Thursday10/17/2024 Morning Current Facility-Administered Medications: acetaminophen (TYLENOL) tablet 500 mg, 500 mg, oral, Q6H DURGAN, Luan Guillermo DO, 500 mg at 10/27/24 2020 ampicillin-sulbactam (UNASYN) 3 g in sodium chloride 0.9% 100 mL IVPB, 3 g, intravenous, Q6H THERESA, Ryan Bailey MD, Last Rate: 220 mL/hr at 11/02/24 0150, 3 g at 11/02/24 0150 [Held by Provider] aspirin enteric coated tablet 81 mg, 81 mg, oral, Daily, Namrata Spencer, LAUNDRY MACHINE TENDER, 81 mg at 10/24/24 1001 atenoloL (TENORMIN) tablet 50 mg, 50 mg, oral, Daily, Namrata Spencer, LAUNDRY MACHINE TENDER, 50 mg at 10/31/24 09 atorvastatin (LIPITOR) tablet 20 mg, 20 mg, oral, Nightly, Namrata Spencer NP, 20 mg at 11/01/242045 calcitRIOL (ROCALTROL) capsule 0.25 mcg, 0.25 mcg, oral, Daily, Namrata Spencer NP, 0.25mcg at 11/01/24933 clorazepate (TRANXENE) tablet 7.5 mg, 7.5 mg, oral, BID PRN, Luan Guillermo, DO, 7.5 mg at 10/31/24 1610 dextrose 5% infusion, 75 mL/hr, intravenous, Continuous, Delvin Mendenhall MD, Last Rate: 75 mL/hr at 11/01/242055, 75 mL/hr at 11/01/242055 dofetilide (TIKOSYN) capsule 125 mcg, 125 mcg, oral, BID, Namrata Spencer NP, 125 mcg at11/01/242045 fenofibrate nanocrystallized (TRICOR) tablet 145 mg, 145 mg, oral, Daily, Namrata Spencer, ZACHERY, 145 mg at 11/01/2435 fluticasone propionate (FLONASE) 50 mcg/actuation nasal spray 2 spray, 2 spray, each nostril, DailyPRN, Namrata Spencer NP ipratropium-albuteroL (DUO-NEB) 0.5-2.5 mg/3 mL nebulizer solution 3 mL, 3 mL, nebulization, Q6H While awake (RT), Ryan Bailey MD, 3 mL at 11/01/242022 levothyroxine (SYNTHROID) tablet 25 mcg, 25 mcg, oral, Daily - 0600, Namrata Spencer NP,25 mcg at 11/02/24 0530 midodrine (PROAMATINE) tablet 10 mg, 10 mg, oral, TID AC, Delvin Mendenhall MD, 10 mg at 11/01/241727 ondansetron (ZOFRAN) injection 4 mg, 4 mg, intravenous, Q6H PRN, Namrata Spencer NP pantoprazole DR (PROTONIX) extended release tablet 40 mg, 40 mg, oral, Daily, Carla Jean MD,40 mg at 11/01/24933 ramelteon (ROZEREM) tablet 8 mg, 8 mg, oral, Nightly PRN, Namrata Spencer NP, 8 mg at 11/01/242055 senna-docusate (PERICOLACE) 8.6-50 mg per tablet 1 tablet, 1 tablet, oral, BID, Luan Guillermo DO, 1 tablet at 10/31/242110 tamsulosin (FLOMAX) extended release capsule 0.4 mg, 0.4 mg, oral, Daily with dinner, Luan Guillermo DO, 0.4 mg at 11/01/241727 Allergies Allergen Reactions Trazodone Hcl Unknown Morphine Hydrocodone Unknown Lunesta [Eszopiclone] Other (See comments) Gave him crazy dreams Tramadol Nausea only Vicodin [Hydrocodone-Acetaminophen] Nausea only Social History Tobacco Use Smoking status: Former Current packs/day: 0.00 Types: Cigarettes Start date: 1955 Quit date: 1997 Years since quittin.4 Passive exposure: Past Smokeless tobacco: Never Substance and Sexual Activity Drug use: Not on file Sexual activity: Not on file Alcohol Use: Unknown (02/23/2023) AUDIT-C Frequency of Alcohol Consumption: Not on file Average Number of Drinks: Patient does not drink Frequency of Binge Drinking: Not on file No family history on file. Review of Systems: Patient tells that he has no chest pain no shortness of breath fatigue slowly getting better he is interested to do more physical activity as PT OT required Objective Vitals: 24hr Min/Max: Temp Min: 36.4 ??C (97.5 ??F) Max: 36.6 ??C (97.9 ??F) Pulse Min: 58 Max: 82 BP Min: 100/70 Max: 120/66 Resp Min: 17 Max: 18 SpO2 Min: 89 % Max: 96 % Most Recent: Vitals: 11/02/24 0737 BP: 113/67 Pulse: 80 Resp: 17 Temp: 36.5 ??C (97.7 ??F) SpO2: (!) 89% I/O last 2 completed shifts: In: 250 [P.O.:150; I.V.:100] Out: 1974 [Urine:1974] No intake/output data recorded. Physical Exam: Lungs clear no wheezing heart exam regular with soft S1 chest wall well-healed scar left upper chest were ICD was implanted. Neuro appears to have no obvious focal weakness moves all 4 extremities spontaneously Skin no icterus or petechiae Lymphatics no cervical or supraclavicular tae Lab/Radiology/Diagnostic Review: Laboratory review: Lab results in the last 24 hours: No results found for this or any previous visit (from the past 24 hours). Lipids: No results found for: CHOL, CHLPL, HDL, LDLCALC, TRIG, CHOLHDL and Cardiac Enzymes: No results found for: CKTOTAL, CKMB, CKMBINDEX, TROPONINT ECG: Results for orders placed during the hospital encounter of 10/18/24 ECG 12 lead Narrative Vent Rate: 80 bpm RR Interval: 749 msec RI Interval: 140 msec QRS Duration: 164 msec QT Interval: 377 msec QTC Interval: 412 msec P-R-T [place]: -52 - 226 - 226 degrees IMPRESSION: ELECTRONIC VENTRICULAR PACEMAKER ST DEPRESSION, CONSIDER SUBENDOCARDIAL INJURY [0.1+ mV ST DEPRESSION] ABNORMAL ECG No change compared to prior EKG Electronically Signed By: Emilio Ratliff MD [facility] Latest Reference Range & Units 11/01/24 04:00 Phosphorus, pl 2.3 - 4.5 mg/dL 2.0 (L) (L): Data is abnormally low ASSESSMENT/PLAN: Acute hypoxemic respiratory failure Likely 2/2 CHF exacerbation/pneumonia -Currently on oxygen 1 L NC -Continue O2. Wean as tolerated -IV antibiotics -Pulmonary following Acute on chronic systolic HF -proBNP 8,636 on admission, 3978 on 10/31/2024 -Pleural effusion on the CT -Diuretic management per nephrology. Monitor renal function and lytes,I/o's -Continue atenolol Ischemic cardiomyopathy -S/p BIV ICD implantation History of V-tach Atrial fibrillation -S/p ablation; paced rhythm on EKG -Continue Tikosyn and atenolol -Warfarin dosing per pharmacy -Keep K>/4,mag>/2 CAD -S/p CABG -stable with no angina -Continue ASA, statins Hypertension -Bp stable/controlled Hyperlipidemia -Continue statin Hypothyroidism -Continue levothyroxine CKD-Nephrology is following Protein malnutrition phosphorus is 2.0 will defer management to primary care team Hyponatremia -sodium is totally normal this morning after giving the talvaptan. No need for talvaptan any more. No Lasix today unless Nephrology orders Patient and family would like for the patient to go to a Rehab Facility prior to discharge home. * Donte Camacho MD - 11/02/2024 7:33 AM CDT Pertinent information was reviewed full note follow-up * Delvin Mendenhall MD - 11/01/2024 8:05 PM CDT Nephrology Progress Note [facility] SUBJECTIVE 11/01 Na 135, too rapid correction. Will change ivf. Voiding trial failed. All labs and data reviewed. 10/31 Na 123. Po tolvaptan started. PO FR. Will change to 1500 cc/24 hours. Voiding trial today. 10/[address] Gillespie, a keen observer noticed pt drinking excessive free water, this is likely contributing,PO FR started. Lasix IV times 1. Tolvaptan 15 mg po times 1 tonight. Frequent BMP. UO is now appropriate. Pt agreeable to Rehab. 10/29 Na 126. Over 11 liters urine. Overall stable. Will need IVF. 10/28 Slowly improving. Bp soft. Guerrero draining clear urine. Over 7 litres of urine reported? OBJECTIVE Vitals: Vitals: 11/01/24 1200 11/01/24 1445 11/01/24 1541 11/01/24 1600 BP: 105/68 BP Location: Left arm Patient Position: HOB 30 degrees Pulse: 82 80 80 80 Resp: 18 18 Temp: 36.4 ??C (97.5 ??F) TempSrc: SpO2: 96% 93% Weight: Height: Intake/Output Summary (Last 24 hours) at 11/01/20242004 Last data filed at 11/01/2024 1730 Gross per 24 hour Intake -- Output 3375 ml Net -3375 ml REVIEW OF SYSTEMS Review of Systems Constitutional: Negative. HENT: Negative. Eyes: Negative. Respiratory: Negative. Cardiovascular: Negative. Gastrointestinal: Negative. Genitourinary: Negative. Musculoskeletal: Negative. Skin: Negative. Allergic/Immunologic: Negative. Hematological: Negative. All other systems reviewed and are negative. PHYSICAL EXAM Physical Exam Constitutional: Appears well-developed. HENT: wnl Head: Normocephalic. Eyes: Pupils are equal, round, and reactive to light. Neck: Normal range of motion. Neck supple. Cardiovascular: Normal rate. Pulmonary/Chest: Effort normal and breath sounds normal. Abdominal: Soft. Musculoskeletal: Normal range of motion. Neurological: Alert, oriented. Skin: Skin is warm. Nursing note and vitals reviewed. MEDICATIONS Current Facility-Administered Medications: acetaminophen (TYLENOL) tablet 500 mg, 500 mg, oral, Q6H PRN, Luan Guillermo, , 500 mg at 10/27/242019 ampicillin-sulbactam (UNASYN) 3 g in sodium chloride 0.9% 100 mL IVPB, 3 g, intravenous, Q6H THERESA, Ryan Bailey MD, Last Rate: 220 mL/hr at 11/01/24 1311, 3 g at 11/01/24 1311 [Held by Provider] aspirin enteric coated tablet 81 mg, 81 mg, oral, Daily, Namrata Spencer NP, 81 mg at 10/24/24 1001 atenoloL (TENORMIN) tablet 50 mg, 50 mg, oral, Daily, Namrata Spencer, ZACHERY, 50 mg at 10/31/24 09 atorvastatin (LIPITOR) tablet 20 mg, 20 mg, oral, Nightly, Namrata Spencer, LAUNDRY MACHINE TENDER, 20 mg at 10/31/24 210 calcitRIOL (ROCALTROL) capsule 0.25 mcg, 0.25 mcg, oral, Daily, Namrata Spencer, ZACHERY, 0.25mcg at 11/01/24 0934 clorazepate (TRANXENE) tablet 7.5 mg, 7.5 mg, oral, BID PRN, Luan Guillermo DO, 7.5 mg at 10/31/24 1610 dextrose 5% infusion, 75 mL/hr, intravenous, Continuous, Delvin Mendenhall MD dofetilide (TIKOSYN) capsule 125 mcg, 125 mcg, oral, BID, Namrata Spencer, ZACHERY, 125 mcg at11/01/24 0934 fenofibrate nanocrystallized (TRICOR) tablet 145 mg, 145 mg, oral, Daily, Namrata Spencer NP, 145 mg at 11/01/24 0935 fluticasone propionate (FLONASE) 50 mcg/actuation nasal spray 2 spray, 2 spray, each nostril, DailyPRN, Namrata Spencer NP ipratropium-albuteroL (DUO-NEB) 0.5-2.5 mg/3 mL nebulizer solution 3 mL, 3 mL, nebulization, Q6H While awake (RT), Ryan Bailey MD, 3 mL at 11/01/24 1445 levothyroxine (SYNTHROID) tablet 25 mcg, 25 mcg, oral, Daily - 0600, Namrata Spencer NP,25 mcg at 11/01/24 0517 midodrine (PROAMATINE) tablet 10 mg, 10 mg, oral, TID AC, Delvin Mendenhall MD, 10 mg at 11/01/24 1728 ondansetron (ZOFRAN) injection 4 mg, 4 mg, intravenous, Q6H PRN, Namrata Spencer NP pantoprazole DR (PROTONIX) extended release tablet 40 mg, 40 mg, oral, Daily, Carla Jean MD,40 mg at 11/01/24 0934 ramelteon (ROZEREM) tablet 8 mg, 8 mg, oral, Nightly PRN, Namrata Spencer NP, 8 mg at 10/30/241999 senna-docusate (PERICOLACE) 8.6-50 mg per tablet 1 tablet, 1 tablet, oral, BID, Luan Guillermo DO, 1 tablet at 10/31/242110 tamsulosin (FLOMAX) extended release capsule 0.4 mg, 0.4 mg, oral, Daily with dinner, Luan Guillermo DO, 0.4 mg at 11/01/24 172 Lab/Radiology/Diagnostic Review: Recent Results (from the past 24 hours) CBC with auto differential Collection Time: 11/01/24 4:00 AM Result Value Ref Range WBC 2.97 (L) 3.80 - 9.90 K/cumm Hgb 12.1 (L) 13.0 - 17.5 g/dL Hct 36.3 (L) 38.9 - 50.3 % Plt 133 (L) 150 - 400 K/cumm MPV 11.9 9.1 - 12.3 fL RBC 3.91 (L) 4.30 - 5.80 M/cumm MCV 92.8 81.3 - 96.4 fL MCH 30.9 27.1 - 33.3 pg MCHC 33.3 32.3 - 35.7 g/dL RDW CV 16.0 (H) 11.1 - 14.9 % RDW SD 54.2 (H) 35.7 - 48.1 fL NRBC abs 0.00 0.00 - 0.01 K/cumm Protime-INR Collection Time: 11/01/24 4:00 AM Result Value Ref Range PT 29.6 (H) 9.7 - 13.0 sec INR 2.69 (H) 0.90 - 1.20 Renal function panel Collection Time: 11/01/24 4:00 AM Result Value Ref Range Sodium 137 135 - 145 mmol/L Potassium, pl 3.4 3.3 - 4.9 mmol/L Chloride 96 (L) 97 - 110 mmol/L CO2 35 (H) 22 - 32 mmol/L Anion gap 6 2 - 15 mmol/L BUN 34 (H) 6 - 25 mg/dL Creatinine 1.37 (H) 0.80 - 1.30 mg/dL Glucose 92 70 - 199 mg/dL Calcium 8.4 (L) 8.5 - 10.3 mg/dL Phosphorus, pl 2.0 (L) 2.3 - 4.5 mg/dL Albumin 2.8 (L) 3.5 - 5.0 g/dL Differential, auto Collection Time: 11/01/24 4:00 AM Result Value Ref Range Neutrophil abs 2.11 1.50 - 6.50 K/cumm Imm gran abs 0.01 0.00 - 0.10 K/cumm Lymphocyte abs 0.44 (L) 0.80 - 3.30 K/cumm Monocyte abs 0.30 0.20 - 0.80 K/cumm Eosinophil abs 0.10 0.00 - 0.50 K/cumm Basophil abs 0.01 0.00 - 0.10 K/cumm Neutrophil pct 71.1 % Imm gran pct 0.3 % Lymphocyte pct 14.8 % Monocyte pct 10.1 % Eosinophil pct 3.4 % Basophil pct 0.3 % eGFR Collection Time: 11/01/24 4:00 AM Result Value Ref Range eGFR 51 (L) >=60 mL/min/1.73 m2 XR Chest 1 View Result Date: 10/27/2024 Narrative: EXAMINATION: XR CHEST 1 VIEW HISTORY: The patient is an 84-year-old male who presents with shortness of breath. Comparison made with the previous study dated 10/26/2024. TECHNIQUE: AP portable view of the chest. FINDINGS: Cardiomegaly with aortic atherosclerosis. Findings of pulmonary vascular congestion. No focal consolidation. Impression: Cardiomegaly with pulmonary vascular congestion. Electronically signed by: Coco Youngblood M.D. XR Chest 1 View Result Date: 10/26/2024 Narrative: EXAMINATION: XR CHEST 1 VIEW HISTORY: The patient is a 84-year-old male who presents with shortness of breath. Comparison made with the previous study dated 10/24/2024. TECHNIQUE: AP portable view of the chest. FINDINGS: Cardiomegaly with aortic atherosclerosis. Findings of pulmonary vascular congestion. No focal infiltrate seen. Impression: Cardiomegaly with pulmonary vascular congestion. Electronically signed by: Coco Youngblood M.D. XR Chest 1 Vw Portable Result Date: 10/24/2024 Narrative: EXAMINATION: XR CHEST 1 VIEW HISTORY: The patient is an 84-year-old male who presents with hypoxia. Comparison made with the previous study dated 10/23/2024. TECHNIQUE: AP portable view ofthe chest. FINDINGS: Cardiomegaly with aortic atherosclerosis. Findings of pulmonary vascular congestion. Right lower lobe infiltrate with the remainder of the lungs being clear. Impression: Findings as described above. Electronically signed by: Coco Youngblood M.D. XR Chest 1 Vw Portable Result Date: 10/23/2024 Narrative: Examination: XR CHEST 1 VIEW Date: 10/23/2024 7:20 AM History: effusion Comparison: 10/18/2024. Findings: Normal heart size, sternotomy and left AICD is again seen. A small right effusion andmoderate right lower lobe infiltrate with patchy consolidation is unchanged. Impression: Persistent right effusion with patchy right lower lobe consolidation. Electronically signed by: Perla Cowart M.D. CT Abdomen Pelvis WO Contrast Result Date: 10/21/2024 Narrative: EXAMINATION: CT ABDOMEN PELVIS WO CONTRAST DATE: 10/21/2024 5:35 AM HISTORY: Weight loss,unintended TECHNIQUE: Images through the abdomen and pelvis were obtained without contrast. FINDINGS: There are bilateral pleural effusions. There is bilateral lower lobe atelectasis. 26 mm left hepatic cyst is present. The patient is status post cholecystectomy. There is no biliary ductal dilatatio n. The spleen, pancreas and adrenal glands are grossly normal on this noncontrast examination. There is mild bilateral perinephric stranding. There is no hydronephrosis, hydroureter or renal calculus. There are several small exophytic left renal lesions which cannot be further characterized on this noncontrast examination. There is no free air or fluid. There is no bowel obstruction. The appendixis not identified with confidence. There are multiple colonic diverticula. There is a 43 mm infrarenal abdominal aortic aneurysm. There are postoperative changes of the aortobiiliac bypass. Radiationtherapy changes are noted in the prostate. Impression: Limited study secondary to lack of intravenous contrast. No acute intra-abdominal abnormality. Colonic diverticulosis. Bilateral pleural effusions and bilateral lower lobe atelectasis. 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 Electronically signed by: Neel Morrison M.D. Transthoracic Echo (TTE) Complete W Doppler/CF Result Date: 10/21/2024 Narrative: [place] [address] Echocardiogram Report Patient Name: IAN MONSALVE H : 1940 Study Date: 10/20/2024 12:11:53 PM Gender: M Tech: Location: [id number] Ref Provider: CARLA JEAN Height(Cm): 170 BSA: 1.93 Weight(Kg): 79 Heart Rate: 80 BP: 90 / 55 Quality: Good Order Provider: CARLA JEAN PROCEDURES: Echocardiographic Report: Transthoracic echocardiogram with complete 2D, M-Mode, color Doppler examination and contrast. INDICATIONS: Congestive Heart Failure. MEASUREMENTS: 2D/MM Value Ra nge Doppler Value Range EF Mod BP 37 % [ 52 - 72 ] NIR Vmax 1.83 cm2 LVIDd 2D 4.85 cm [ 4.20 - 5.80] AV Mean PG 3 mmHg LVIDs 2D [...] LVOT 16.9 ml/m2 [ >= 35.0 ] AoRDiam MM 2.95 cm [ 3.10 - 3.70 [...] atrial septum. Left Ventricle: Left ventricle cavity iswithin upper limits of normal. Optison contrast agent used to visually enhance endocardial wall motion and contractility. Moderate concentric left ventricular hypertrophy. Moderate global left ventricular systolic dysfunction. Diastolic dysfunction is present. Increased left heart filling pressuresbased on elevated E/E`. Ejection fraction is measured [...] biatrial enlargement. Linear artifact in right atrium. Normalstructure of the mitral valve. Mild mitral valve regurgitation. Aortic cusps appear mildly sclerotic. No evidence of hemodynamically significant aortic stenosis by Doppler. [id number] pulmonary hypertension, estimated RVSP 60 mmHg. Moderate tricuspid regurgitation. Electronically Signed By:Clive Godfrey MD, [facility] 10/21/2024 6:43:00 AM CDT US Retroperitoneal Complete Result Date: 10/19/2024 Narrative: EXAMINATION: RENAL ULTRASOUND Date: 10/19/2024 2:20 PM [...] measuring 4.2 x 4.6 x 5.3 cm Impression: 1. Possible mass in the right kidney measuring up to 1.4 cm. Suggest MRI of the kidneysfor further evaluation. 2. Enlarged prostate. Electronically signed by: Rajendra Oh II, D.O. CT Chest WO Contrast Result Date: 10/18/2024 Narrative: EXAMINATION: Computed tomography of the chest without intravenous contrast HISTORY: Abnormal chest radiograph. TECHNIQUE: Transaxial computed tomographic images of the chest were obtained without intravenous contrast according to the standard protocol. COMPARISON: Chest radiograph dated same day. FINDINGS: There is a moderately sized right pleural effusion with fluid in the right majorfissure and right upper, middle, and lower lobe consolidations most notable in the right lower lobe. Small left pleural effusion with left lower lobe atelectasis. Severe centrilobular emphysematous changes. Poststernotomy changes. Mild mediastinal lymphadenopathy with largest mediastinal node measur ing 1.1 cm in short axis dimension. Nodules in the left upper lobe, largest measuring approximately1.1 x 0.5 cm. Follow-up suggested. Main pulmonary [...] may represent pseudo-thickening from underdistention versus gastritis. Impression: 1. Moderately sized right pleural effusion with [...] Electronically signed by: Rajendra Oh II, D.O. ECG 12 lead Result Date: 10/18/2024 Narrative: Vent Rate: 80 bpm RR Interval: 749 msec RI Interval: 140 msec QRS Duration: 164 msec QT Interval: 377 msec QTC Interval: 412 msec P-R-T [place]: -52 - 226 - 226 degrees IMPRESSION: ELECTRONICVENTRICULAR PACEMAKER ST DEPRESSION, CONSIDER SUBENDOCARDIAL INJURY [0.1+ mV ST DEPRESSION] ABNORMAL ECG No change compared to prior EKG Electronically Signed By: Emilio SAINZ XR Chest 1 Vw Portable Result Date: 10/18/2024 Narrative: EXAMINATION: XR CHEST 1 VIEW DATE: 10/18/2024 11:20 AM INDICATION: Shortness of breath. COMPARISON: 02/23/2023. Impression: ICD leads are intact. Post sternotomy changes are noted. Cardiac mediastinal silhouettewithin normal limits. There is a small right pleural effusion. Opacities in the right lower lobe suggestive of pneumonia, increased from prior. Follow-up suggested to ensure resolution. No acute osseous abnormality. Electronically signed by: Rajendra Oh II, D.O. ASSESSMENT/PLAN CKD 3b CRS. CHF/dyspnea. R LL PNA. MBD. ICD status. RECOMMENDATIONS IV diuresis. CKD washburn. Overall improved. -10/20, BP low, start midodrine, IV ABX, decrease diuresis, CT scan kidneys. -10/21, urinary retention, ROSA worse, guerrero placed, will follow, CT scan to be reviewed. -10/22, CT scan kidneys shows exophytic cysts, will do MRI as o/p, continue guerrero, ROSA better, good UO, no new changes, difficult guerrero yesterday. -Cr 1.7 and baseline, dyspnea better, gross hematuria, difficult guerrero, traumatic hematuria, Needs CBI, will reconsult Urology. -cr is baseline, guerrero irrigation, likely needs thoracentesis, for both diagnostic and therapeutic purposes, avss, lytes stable. -CR is stable, cxr better, can switch to po diuretics tomorrow. -stable labs, BP soft, OT/PT, CMR eval, same tx, hold diuresis, po midodrine, continue guerrero, will retain on IP dc. Renal mass will be evaluated as o/p. -Start normotonic IVF, tolvaptan will not work in most cases with met alkalosis, he has some edema but that seems like third spacing, long d/w family, they want SNF and can't take care of him at home. -Critical hyponattremia possibly from excessive PO free water intake, Lasix iv times 1, tolvaptan 15 mg daily for 2 days, Rehab eval, d/w family and Dr Gillespie via text. -Na 123, still critical but better, po FR, loop diuresis carefully, DC IVF, Tolvaptan daily times 2, d/w family. -Na 135, as above, replace guerrero, traumatic hematuria is to be expected. I can be reached at [phone] with any concerns. Thank you Ryan Bailey MD for the consult. Delvin Mendenhall MD [employer] [phone] * Magalis Teresa PTA - 11/01/2024 11:42 AM CDT Physical Therapy Physical Therapy PATIENT'S NAME:Ian Monsalve :1940 AGE:84 y.o. ROOM:[place] [id number] Medical cancel D/T per RN pt bleeding from catheter site at this time and is contacting MD about this matter. Will check back at a later date/time as schedule allows. Magalis Teresa PTA 11/01/24 11:42 AM * Ryan Bailey MD - 11/01/2024 10:35 AM CDT General Medicine Daily Progress Patient is a 84 y.o. male who presented with a chief complaint of shortness of breath. Arrival Vitals Temp 10/18/24 1052 36.4 ??C (97.6 ??F) Pulse 10/18/24 1030 80 Resp 10/18/24 1040 24 BP 10/18/24 1030 121/81 SpO2 10/18/24 1030 99 % Temp src 10/18/24 1052 Axillary Heart Rate Source 10/20/24 2103 Monitor Patient Position 10/18/24 1631 Lying BP Location 10/18/24 1631 Right arm FiO2 (%) 10/20/24 1423 40 % Length of stay: 14 days Hospital Course : Interval History: Failed voiding trial yesterday. Guerrero catheter replaced. Had hematuria On O2 at 3 LPM. Down from 6 LPM yesterday. Seen with at bedside Subjective: No complaints. Objective: Vitals: 24hr Min/Max: Temp Min: 36.3 ??C (97.4 ??F) Max: 36.7 ??C (98.1 ??F) Pulse Min: 62 Max: 89 BP Min: 105/59 Max: 115/95 Resp Min: 8 Max: 19 SpO2 Min: 86 % Max: 98 % Most Recent : Vitals: 11/01/24 0325 11/01/24 0722 11/01/24 0934 11/01/24 0956 BP: 105/59 BP Location: Left arm Patient Position: HOB 30 degrees Pulse: 80 62 81 Resp: 8 Temp: 36.5 ??C (97.7 ??F) TempSrc: SpO2: 94% 93% 95% Weight: Height: I/O last 2 completed shifts: In: - Out: 3990 [Urine:3990] No intake/output data recorded. Physical Exam: Gen: In no apparent distress Neuro: Alert, oriented in time place and person. Pulmonary: Not dyspneic. Fine basal crackles Cardiovascular: HS 1, 2 . regular rhythm. No murmurs heard. Moderate bilateral pitting lower extremity edema. : Guerrero catheter in place with bloody urine. Current Meds: ampicillin-sulbactam, 3 g, intravenous, Q6H THERESA [Held by Provider] aspirin, 81 mg, oral, Daily atenoloL, 50 mg, oral, Daily atorvastatin, 20 mg, oral, Nightly calcitRIOL, 0.25 mcg, oral, Daily dofetilide, 125 mcg, oral, BID fenofibrate nanocrystallized, 145 mg, oral, Daily ipratropium-albuteroL, 3 mL, nebulization, Q6H While awake (RT) levothyroxine, 25 mcg, oral, Daily - 0600 midodrine, 10 mg, oral, TID AC pantoprazole DR, 40 mg, oral, Daily senna-docusate, 1 tablet, oral, BID tamsulosin, 0.4 mg, oral, Daily with dinner warfarin, 1 mg, oral, Once - 1800 Continuous Medications Medication Dose Last Rate PRN Medications Medication Dose Route Frequency Last Admin acetaminophen (TYLENOL) tablet 500 mg 500 mg oral Q6H PRN 500 mg at 10/27/242019 clorazepate (TRANXENE) tablet 7.5 mg 7.5 mg oral BID PRN 7.5 mg at 10/31/24 1610 fluticasone propionate (FLONASE) 50 mcg/actuation nasal spray 2 spray 2 spray each nostril Daily PRN ondansetron (ZOFRAN) injection 4 mg 4 mg intravenous Q6H PRN ramelteon (ROZEREM) tablet 8 mg 8 mg oral Nightly PRN 8 mg at 10/30/241999 [] I have utilized all available immediate resources to obtain, update, or review the patient's current medications (including all prescriptions, [id number]-[id number] products, herbals, cannabis/cannabidiol products, and vitamin/mineral/dietary (nutritional) supplements). Lab/Radiology/Diagnostic Review: Recent Labs Lab Units 11/01/24 0400 10/31/24 0006 10/30/24 0026 WBC K/cumm 2.97* 3.03* 3.82 HEMOGLOBIN g/dL 12.1* 11.3* 12.2* HEMATOCRIT % 36.3* 33.1* 35.6* MCV fL 92.8 90.7 91.5 PLATELETS K/cumm 133* 124* 122* Recent Labs Lab Units 11/01/24 0400 10/31/24 0006 10/30/24 1603 10/29/24 0345 10/28/24 0413 SODIUM mmol/L 137 123* 121* < > 127* POTASSIUM PLASMA mmol/L 3.4 3.7 4.0 < > 3.9 CHLORIDE mmol/L 96* 89* 85* < > 88* CO2 mmol/L 35* 30 26 < > 37* ANIONGAP mmol/L 6 4 10 < > 2 GLUCOSE mg/dL 92 106 110 < > 92 BUN SERUM mg/dL 34* 32* 30* < > 37* CREATININE mg/dL 1.37* 1.26 1.19 < > 1.36* CALCIUM mg/dL 8.4* 7.6* 7.8* < > 8.4* MAGNESIUM mg/dL -- -- -- -- 1.8 ALBUMIN g/dL 2.8* -- -- -- -- < > = values in this interval not displayed. Recent Labs Lab Units 11/01/2439910/31/24 0006 10/30/24 0026 INR 2.69* 1.73* 1.73* No results found for: BNP No results found for: TROPONINT Estimated Creatinine Clearance: 37.5 mL/min (A) (by C-G 65 yr and older- minimum SCr 0.8 based on SCr of 1.37 mg/dL (H)). Patient Active Problem List Diagnosis Date Noted Acute congestive heart failure, unspecified heart failure type (HCC) 10/18/2024 Palpitations 02/23/2023 All lab results stated above were reviewed by me. [] I confirmed that the patient's Advance Care Plan is present, code status is documented, or surrogate decision maker is listed in the patient's medical record. Assessment/Plan: Hypervolemic Hyponatremia: Possibly due to primary polydipsia. Resolved. Continue fluid restrictionfor now. Acute hypoxic respiratory failure on admission. Differential includes CHF exacerbation, pneumonia. Currently on 2L NC - titrate as able. CXR - Persistent right effusion with patchy right lower lobe consolidation. 10/24: Repeat x-ray showing pulmonary vascular congestion right lower lobe infiltrate. Home O2 evaluation completed 10/28. Patient requiring 3 L with rest, 6 L with ambulation Heart failure with reduced EF, acute on chronic: Initial BNP 8636. 2D echo performed- EF 37%, Mod-Severe pulmonary htn, Diastolic dysfunction present. Received IV lasix. Continue atenolol. Cardiologyservice consulted. Moderate to severe pulmonary hypertension Moderately sized right pleural effusion with consolidations in the right upper, right lower, and right middle lobes suggestive of multifocal pneumonia, on admission CT. Respiratory PCR negative. Blood cultures NGTD. Strep pneumoniae and Legionella antigens are negative. Was on azithromycin, Rocephin starting on 10/18/2024; on 10/19/2024 Rocephin was changed to Unasyn - continue unasyn. Per pulmonology, thoracentes no longer needed at this time - coumadin resumed.repeat CXR PVC, RLL infiltrate. Will need repeat imaging in 4-6 weeks otherwise Multiple left upper lobe pulmonary nodules largest measuring 1.1 cm, on admission CT. Dilated main pulmonary artery suggestive of pulmonary arterial hypertension, on admission CT. Severe centrilobular emphysematous changes, on admission CT. Nonspecific mild gastric wall thickening may represent pseudo-thickening from underdistention versus gastritis, on admission CT. On PPI. Atrial fibrillation, currently paced. Previously on digoxin. Now On Tikosyn. Coumadin resumed. Monitor INR Hyperlipidemia: Continue atorvastatin Hypothyroidism: Synthroid. Hypophosphatemia: Replace phosphate. Recheck in a.m.. CAD. S/p coronary artery bypass graft x two - left internal mammary artery to the left anterior descending, left radial artery to the posterior descending artery, on 02/24/1997. History of VT, status post ablation on 12/31/2015, 04/08/2016 EP study. Hypotension - improved with midodrine Right Kidney Mass - US retroperitoneum - Right kidney mass up to 1.4 cm - MRI recommended, patient with defibrillator - not able to obtain an MRI. Urine retention - Guerrero catheter in place. Tamsulosin initiated. Urology following voiding trial today. Gross Hematuria: likely 2/2 trauma from guerrero insertion + being on blood thinners. Urology consulted. Held warfarin, now resumed. Resolved but reoccurred 10/30. Appears to be clearing today. Monitor H&H. Constipation -continue laxatives. ROSA on CKD: Monitor renal function. Avoid nephrotoxic agents. Nephrology consulted. Thrombocytopenia : Stable. Monitor Nonspecific troponin elevation PT and OT as tolerated DVT prophylaxis: Coumadin GI prophylaxis: Proton Anticipated DC to SNF in 1-2 days Pancytopenia. Monitor counts. Monitor for bleeding. Hypoalbuminemia. Treat underlying etiology. DVT prophylaxis: given. Code status: LIMITED - No CPR Ryan Bailey MD [facility] Pager #: [phone] This note is dictated and transcribed by [employer] Direct direct software. Timber Setter variances may occur. Despite proof reading, typographical errors may occur. * Lonnie Landin MD - 11/01/2024 8:27 AM CDT Pulmonary Daily Progress Chief complaint/reason for consult: New O2 requirement, Pulmonary nodules, pulmonary hypertension . Interval History: Pt feels better Stronger, less SOB Has occasional cough; no hemoptysis No chest pain His oxygen requirements increased to 4 lpm overnight Presenting History: 84 y/o CM who presented to the ED on 10/18/24 with complaints of shortness of breath that had been worsening over the last week. He was reportedly satting 70% on room air when EMSarrived. 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 States he has been having increased BAH. Does have cough at times that is productive of clear sputum. Started smoking age 12 and quit in 1996, smoked up to 1.5 ppd for 44 years, giving a 66 pack year hx. He has been on amiodarone in the past but not for sometime. 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 No service. CT Chest 10/18/24: Very severe emphysematous changes, moderate right pleural effusion, lung nodules Carries a hx of atrial fibrillation s/p multiple ablations, HFrEF, ischemic cardiomyopathy s/p BiVICD, CKD, CAD s/p CABG, Allergies: Allergies Allergen Reactions Trazodone Hcl Unknown Morphine Hydrocodone Unknown Lunesta [Eszopiclone] Other (See comments) Gave him crazy dreams Tramadol Nausea only Vicodin [Hydrocodone-Acetaminophen] Nausea only Medications: Scheduled Meds:ampicillin-sulbactam, 3 g, intravenous, Q6H THERESA [Held by Provider] aspirin, 81 mg, oral, Daily atenoloL, 50 mg, oral, Daily atorvastatin, 20 mg, oral, Nightly calcitRIOL, 0.25 mcg, oral, Daily dofetilide, 125 mcg, oral, BID fenofibrate nanocrystallized, 145 mg, oral, Daily ipratropium-albuteroL, 3 mL, nebulization, Q6H While awake (RT) levothyroxine, 25 mcg, oral, Daily - 0600 midodrine, 10 mg, oral, TID AC pantoprazole DR, 40 mg, oral, Daily senna-docusate, 1 tablet, oral, BID tamsulosin, 0.4 mg, oral, Daily with dinner warfarin, 1 mg, oral, Once - 1800 Continuous Infusions: PRN Meds:. acetaminophen clorazepate fluticasone propionate ondansetron ramelteon ROS Above review of system reviewed on 11/01/2024 Vitals: Vitals: 10/31/24 2127 11/01/24 0211 11/01/24 0325 11/01/24 0722 BP: 106/61 105/59 BP Location: Left arm Left arm Patient Position: Lying HOB 30 degrees Pulse: 89 80 80 Resp: 18 18 8 Temp: 36.6 ??C (97.9 ??F) 36.5 ??C (97.7 ??F) TempSrc: Oral SpO2: 97% (!) 86% 94% 93% Weight: Height: Temp (24hrs), Av.6 ??C (97.8 ??F), Min:36.3 ??C (97.4 ??F), Max:36.7 ??C (98.1 ??F) Intake/Output Summary (Last 24 hours) at 11/01/2024 0800 Last data filed at 11/01/2024 0601 Gross per 24 hour Intake -- Output 3990 ml Net -3990 ml Physical Exam Vitals and nursing note reviewed. Constitutional: General: He is not in acute distress. Appearance: He is well-developed. HENT: Head: Normocephalic and atraumatic. Comments: Hard of hearing Nose: Nose normal. Mouth/Throat: Mouth: Mucous membranes are moist. Eyes: Conjunctiva/sclera: Conjunctivae normal. Cardiovascular: Rate and Rhythm: Normal rate and regular rhythm. Heart sounds: No murmur heard. Pulmonary: Effort: Pulmonary effort is normal. No respiratory distress. Breath sounds: No stridor. Decreased breath sounds present. No wheezing, rhonchi or rales. Abdominal: General: Bowel sounds are normal. Palpations: Abdomen is soft. Skin: General: Skin is warm and dry. Neurological: Mental Status: He is alert. Psychiatric: Behavior: Behavior normal. Lab/Radiology/Diagnostic Review: Labs: Recent Labs Lab Units 11/01/24 0400 10/31/24 0006 10/30/24 0026 WBC K/cumm 2.97* 3.03* 3.82 HEMOGLOBIN g/dL 12.1* 11.3* 12.2* HEMATOCRIT % 36.3* 33.1* 35.6* PLATELETS K/cumm 133* 124* 122* NEUTROS PCT % 71.1 69.4 69.1 LYMPHS PCT % 14.8 14.2 14.7 MONOS PCT % 10.1 13.5 12.8 EOS PCT % 3.4 2.3 2.1 Recent Labs Lab Units 11/01/24 0400 10/31/24 0006 10/30/24 1603 SODIUM mmol/L 137 123* 121* POTASSIUM PLASMA mmol/L 3.4 3.7 4.0 CHLORIDE mmol/L 96* 89* 85* CO2 mmol/L 35* 30 26 ANIONGAP mmol/L 6 4 10 GLUCOSE mg/dL 92 106 110 BUN SERUM mg/dL 34* 32* 30* CREATININE mg/dL 1.37* 1.26 1.19 CALCIUM mg/dL 8.4* 7.6* 7.8* ALBUMIN g/dL 2.8* -- -- Imaging: CXR 10/30/24: increased PVC?R effusion Other diagnostic tests: Echo 10/20/24: EF 37%, LVDD, RV volume overload, RVSP 60 I have personally reviewed above laboratory findings, chest imaging, and diagnostic tests 11/01/2024 Assessment and Plan: Acute hypoxic respiratory insufficiency Severe emphysema RLL cavitary lesion: pneumonia vs malignancy vs bullous disease B effusions, R>L, likely due to CHF, parapneumonic also possible; persistent but clinically doesnot appear infected and does have ongoing volume overload Afib CHF CKD CAD w hx CABG Hyponatremia; improved Recs: -repeat CXR given increased oxygen requirements - Wean supplemental O2 for SpO2 88-92% - Nebs TID - Unasyn day 14, completed azithromycin. Given cavitary lesion would continue augmentin at discharge for total treatment period of 3-4 weeks. - if signs ongoing infection would need thoracentesis; for now favor monitoring given likely CHF and anticoagulation - Will need repeat CT chest imaging in 4-6 weeks - nephrology following - O2 assessment prior to d/c -dispo planning in progress * Donte Camacho MD - 11/01/2024 7:22 AM CDT Cardiology follow-up note-[facility] Pertinent information was reviewed patient . The patient was examined Latest Reference Range & Units 11/01/24 04:00 Sodium 135 - 145 mmol/L 137 Hyponatremia -sodium is totally normal this morning after giving the talvaptan. No need for talvaptan any more. No Lasix today unless Nephrology orders Latest Reference Range & Units 11/01/24 04:00 Creatinine 0.80 - 1.30 mg/dL 1.37 (H) (H): Data is abnormally high No past medical history on file. Past Surgical History: Procedure Laterality Date CHOLECYSTECTOMY Medications Prior to Admission Medication Sig Dispense Refill Last Dose/Taking aspirin 81 mg enteric coated tablet Take 1 tablet (81 mg total) by mouth daily 10/18/2024 Morning atenoloL (TENORMIN) 50 mg tablet Take 1 tablet (50 mg total) by mouth daily 10/17/2024 atorvastatin (LIPITOR) 20 mg tablet Take 1 tablet (20 mg total) by mouth nightly 10/17/2024 Bedtime calcitRIOL (ROCALTROL) 0.25 mcg capsule Take 1 capsule (0.25 mcg total) by mouth daily 10/18/2024 Morning clorazepate (TRANXENE) 15 mg tablet Take 0.5 tablets (7.5 mg total) by mouth 2 (two) times a day 10/18/2024 Morning digoxin (LANOXIN) 250 mcg (0.25 mg) tablet Take 1 tablet (250 mcg total) by mouth 3 (three) times aweek on Thu, Thu, Thu10/17/2024 ergocalciferol (VITAMIN D) 50,000 unit capsule Take 1 capsule (50,000 Units total) by mouth once a week on Thu Past Week fenofibrate nanocrystallized (TRICOR) 145 mg tablet Take 1 tablet (145 mg total) by mouth daily 10/17/2024 fluticasone propionate (Flonase Allergy Relief) 50 mcg/actuation nasal spray Administer 2 sprays into each nostril daily as needed for rhinitis or allergies Past Week levothyroxine (SYNTHROID) 25 mcg tablet Take 1 tablet (25 mcg total) 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 10/18/2024 Morning Tikosyn 125 mcg capsule Take 1 capsule (125 mcg total) by mouth 2 (two) times a day 10/18/2024 Morning warfarin (COUMADIN) 2 mg tablet Take 1 tablet (2 mg total) by mouth once a week on Tuesdays10/18/2024 Morning warfarin (COUMADIN) 2 mg tablet Take 0.5 tablets (1 mg total) by mouth 6 (six) times a week from Thursday to Thursday10/17/2024 Morning Current Facility-Administered Medications: acetaminophen (TYLENOL) tablet 500 mg, 500 mg, oral, Q6H PRN, Luan Guillermo DO, 500 mg at 10/27/242019 ampicillin-sulbactam (UNASYN) 3 g in sodium chloride 0.9% 100 mL IVPB, 3 g, intravenous, Q6H THERESA, Ryan Bailey MD, Last Rate: 220 mL/hr at 11/01/24 0128, 3 g at 11/01/24 0128 [Held by Provider] aspirin enteric coated tablet 81 mg, 81 mg, oral, Daily, Namrata Spencer NP, 81 mg at 10/24/24 1001 atenoloL (TENORMIN) tablet 50 mg, 50 mg, oral, Daily, Namrata Spencer NP, 50 mg at 10/31/24945 atorvastatin (LIPITOR) tablet 20 mg, 20 mg, oral, Nightly, Namrata Spencer NP, 20 mg at 10/31/242102 calcitRIOL (ROCALTROL) capsule 0.25 mcg, 0.25 mcg, oral, Daily, Namrata Spencer NP, 0.25mcg at 10/31/24945 clorazepate (TRANXENE) tablet 7.5 mg, 7.5 mg, oral, BID PRN, Luan Guillermo, , 7.5 mg at 10/31/24 1610 dofetilide (TIKOSYN) capsule 125 mcg, 125 mcg, oral, BID, Namrata Spencer NP, 125 mcg at10/31/242102 fenofibrate nanocrystallized (TRICOR) tablet 145 mg, 145 mg, oral, Daily, Namrata Spencer NP, 145 mg at 10/31/24945 fluticasone propionate (FLONASE) 50 mcg/actuation nasal spray 2 spray, 2 spray, each nostril, DailyPRN, Namrata Spencer NP ipratropium-albuteroL (DUO-NEB) 0.5-2.5 mg/3 mL nebulizer solution 3 mL, 3 mL, nebulization, Q6H While awake (RT), Ryan Bailey MD, 3 mL at 10/31/242126 levothyroxine (SYNTHROID) tablet 25 mcg, 25 mcg, oral, Daily - 0600, Namrata Spencer LAUNDRY MACHINE TENDER,25 mcg at 11/01/24 0517 midodrine (PROAMATINE) tablet 10 mg, 10 mg, oral, TID AC, Delvin Mendenhall MD, 10 mg at 10/31/241752 ondansetron (ZOFRAN) injection 4 mg, 4 mg, intravenous, Q6H PRN, Namrata Spencer NP pantoprazole DR (PROTONIX) extended release tablet 40 mg, 40 mg, oral, Daily, Carla Jean MD,40 mg at 10/31/24 0946 ramelteon (ROZEREM) tablet 8 mg, 8 mg, oral, Nightly PRN, Namrata Spencer NP, 8 mg at 10/30/241999 senna-docusate (PERICOLACE) 8.6-50 mg per tablet 1 tablet, 1 tablet, oral, BID, Luan Guillermo DO, 1 tablet at 10/31/242110 tamsulosin (FLOMAX) extended release capsule 0.4 mg, 0.4 mg, oral, Daily with dinner, Luan Guillermo DO, 0.4 mg at 10/31/241752 warfarin (COUMADIN) tablet 1 mg, 1 mg, oral, Once - 1800, Donte Camacho MD Allergies Allergen Reactions Trazodone Hcl Unknown Morphine Hydrocodone Unknown Lunesta [Eszopiclone] Other (See comments) Gave him crazy dreams Tramadol Nausea only Vicodin [Hydrocodone-Acetaminophen] Nausea only Social History Tobacco Use Smoking status: Former Current packs/day: 0.00 Types: Cigarettes Start date: 1955 Quit date: 1997 Years since quittin.4 Passive exposure: Past Smokeless tobacco: Never Substance and Sexual Activity Drug use: Not on file Sexual activity: Not on file Alcohol Use: Unknown (02/23/2023) AUDIT-C Frequency of Alcohol Consumption: Not on file Average Number of Drinks: Patient does not drink Frequency of Binge Drinking: Not on file No family history on file. Review of Systems: Objective Vitals: 24hr Min/Max: Temp Min: 36.3 ??C (97.3 ??F) Max: 36.7 ??C (98.1 ??F) Pulse Min: 79 Max: 89 BP Min: 105/59 Max: 115/95 Resp Min: 8 Max: 19 SpO2 Min: 86 % Max: 98 % Most Recent: Vitals: 11/01/24 0722 BP: 105/59 Pulse: 80 Resp: 8 Temp: 36.5 ??C (97.7 ??F) SpO2: 93% I/O last 2 completed shifts: In: - Out: 3990 [Urine:3990] No intake/output data recorded. Physical Exam: Lungs clear no wheezing heart exam regular with soft S1 chest wall well-healed scar left upper chest were ICD was implanted. Neuro appears to have no obvious focal weakness moves all 4 extremities spontaneously Skin no icterus or petechiae Lymphatics no cervical or supraclavicular adenopathy on palpation Lab/Radiology/Diagnostic Review: Laboratory review: Lab results in the last 24 hours: Recent Results (from the past 24 hours) CBC with auto differential Collection Time: 11/01/24 4:00 AM Result Value Ref Range WBC 2.97 (L) 3.80 - 9.90 K/cumm Hgb 12.1 (L) 13.0 - 17.5 g/dL Hct 36.3 (L) 38.9 - 50.3 % Plt 133 (L) 150 - 400 K/cumm MPV 11.9 9.1 - 12.3 fL RBC 3.91 (L) 4.30 - 5.80 M/cumm MCV 92.8 81.3 - 96.4 fL MCH 30.9 27.1 - 33.3 pg MCHC 33.3 32.3 - 35.7 g/dL RDW CV 16.0 (H) 11.1 - 14.9 % RDW SD 54.2 (H) 35.7 - 48.1 fL NRBC abs 0.00 0.00 - 0.01 K/cumm Protime-INR Collection Time: 11/01/24 4:00 AM Result Value Ref Range PT 29.6 (H) 9.7 - 13.0 sec INR 2.69 (H) 0.90 - 1.20 Renal function panel Collection Time: 11/01/24 4:00 AM Result Value Ref Range Sodium 137 135 - 145 mmol/L Potassium, pl 3.4 3.3 - 4.9 mmol/L Chloride 96 (L) 97 - 110 mmol/L CO2 35 (H) 22 - 32 mmol/L Anion gap 6 2 - 15 mmol/L BUN 34 (H) 6 - 25 mg/dL Creatinine 1.37 (H) 0.80 - 1.30 mg/dL Glucose 92 70 - 199 mg/dL Calcium 8.4 (L) 8.5 - 10.3 mg/dL Phosphorus, pl 2.0 (L) 2.3 - 4.5 mg/dL Albumin 2.8 (L) 3.5 - 5.0 g/dL Differential, auto Collection Time: 11/01/24 4:00 AM Result Value Ref Range Neutrophil abs 2.11 1.50 - 6.50 K/cumm Imm gran abs 0.01 0.00 - 0.10 K/cumm Lymphocyte abs 0.44 (L) 0.80 - 3.30 K/cumm Monocyte abs 0.30 0.20 - 0.80 K/cumm Eosinophil abs 0.10 0.00 - 0.50 K/cumm Basophil abs 0.01 0.00 - 0.10 K/cumm Neutrophil pct 71.1 % Imm gran pct 0.3 % Lymphocyte pct 14.8 % Monocyte pct 10.1 % Eosinophil pct 3.4 % Basophil pct 0.3 % eGFR Collection Time: 11/01/24 4:00 AM Result Value Ref Range eGFR 51 (L) >=60 mL/min/1.73 m2 Lipids: No results found for: CHOL, CHLPL, HDL, LDLCALC, TRIG, CHOLHDL and Cardiac Enzymes: No results found for: CKTOTAL, CKMB, CKMBINDEX, TROPONINT ECG: Results for orders placed during the hospital encounter of 10/18/24 ECG 12 lead Narrative Vent Rate: 80 bpm RR Interval: 749 msec RI Interval: 140 msec QRS Duration: 164 msec QT Interval: 377 msec QTC Interval: 412 msec P-R-T [place]: -52 - 226 - 226 degrees IMPRESSION: ELECTRONIC VENTRICULAR PACEMAKER ST DEPRESSION, CONSIDER SUBENDOCARDIAL INJURY [0.1+ mV ST DEPRESSION] ABNORMAL ECG No change compared to prior EKG Electronically Signed By: Emilio Ratliff MD [facility] ASSESSMENT/PLAN: Acute hypoxemic respiratory failure Likely 2/2 CHF exacerbation/pneumonia -Currently on oxygen 1 L NC -Continue O2. Wean as tolerated -IV antibiotics -Pulmonary following Acute on chronic systolic HF -proBNP 8,636 on admission, 3978 on 10/31/2024 -Pleural effusion on the CT -Diuretic management per nephrology. Monitor renal function and lytes,I/o's -Continue atenolol Ischemic cardiomyopathy -S/p BIV ICD implantation History of V-tach Atrial fibrillation -S/p ablation; paced rhythm on EKG -Continue Tikosyn and atenolol -Warfarin dosing per pharmacy -Keep K>/4,mag>/2 CAD -S/p CABG -stable with no angina -Continue ASA, statins Hypertension -Bp stable/controlled Hyperlipidemia -Continue statin Hypothyroidism -Continue levothyroxine CKD Latest Reference Range & Units 11/01/24 04:00 eGFR >=60 mL/min/1.73 m2 51 (L) (L): Data is abnormally low -Nephrology is following Hyponatremia -sodium is totally normal this morning after giving the talvaptan. No need for talvaptan any more. No Lasix today unless Nephrology orders Patient and family would like for the patient to go to a Rehab Facility prior to discharge home. * Donte Camacho MD - 11/01/2024 7:22 AM CDT Pertinent information was reviewed full cardiology note to follow * Soledad Camacho [facility] - 11/01/2024 7:21 AM CDT Pharmacokinetic Consult - Anticoagulation Dosing Ian Monsalve is a 84 y.o. male who has been consulted for pharmacy warfarin dosing and monitoring. Current Hematologic Labs INR Date Value Ref Range Status 11/01/2024 2.69 (H) 0.90 - 1.20 Final Comment: Interpretive data Oral anticoagulant therapeutic ranges: Venous thromboembolism prophylaxis or treatment: 2.0-3.0 CARDIOLOGY Standard range: 2.0-3.0 High-intensity range: 2.5-3.5 Refer to indication-specific guidelines for appropriate target ranges for prosthetic heart valve replacement. Current interpretive data was last revised on 2019. 10/31/2024 1.73 (H) 0.90 - 1.20 Final Comment: Interpretive data Oral anticoagulant therapeutic ranges: Venous thromboembolism prophylaxis or treatment: 2.0-3.0 CARDIOLOGY Standard range: 2.0-3.0 High-intensity range: 2.5-3.5 Refer to indication-specific guidelines for appropriate target ranges for prosthetic heart valve replacement. Current interpretive data was last revised on 2019. 10/30/2024 1.73 (H) 0.90 - 1.20 Final Comment: Interpretive data Oral anticoagulant therapeutic ranges: Venous thromboembolism prophylaxis or treatment: 2.0-3.0 CARDIOLOGY Standard range: 2.0-3.0 High-intensity range: 2.5-3.5 Refer to indication-specific guidelines for appropriate target ranges for prosthetic heart valve replacement. Current interpretive data was last revised on 2019. Hgb Date Value Ref Range Status 11/01/2024 12.1 (L) 13.0 - 17.5 g/dL Final Hct Date Value Ref Range Status 11/01/2024 36.3 (L) 38.9 - 50.3 % Final Plt Date Value Ref Range Status 11/01/2024 133 (L) 150 - 400 K/cumm Final No results found for: PTT Assessment Patient was admitted on warfarin with a dose of 2 mg on Thursday and 1 mg all other days (Thu to Thu). Patient is on warfarin for an indication of atrial fibrillation. Goal INR is 2-3. Potential interacting medications: unasyn (could potentially increase INR) Plan Date INR Dose given Comments 10/18 2mg Patient already took dose at home. Daily INR ordered 10/19 3.14 1mg Slightly above goal will give home dose today and may need to decrease for further doses 10/20 3.12 1mg 10/21 2.34 1mg 10/22 2.56 1mg 10/23-10/24 on hold 10/25 1.65 2 mg Resume home dose 10/26 1.55 2 mg 10/27 1.49 2 mg 10/28 1.54 2 mg 10/29 1.56 4 mg 10/30 1.73 3 mg 10/31 1.73 5 mg Still not at goal will increase to 5 mg today 11/01 2.69 1 mg Large increase in INR but is within goal , haven't see full effects of 5 mg, resume 1 mg home dose. May need to hold dose tomorrow if INR above range. Will continue to follow patient's clinical progress daily. Soledad Camacho PharmD, BCPS * Thursday, LISA Jacob - 10/31/2024 3:17 PM CDT Occupational Therapy NOTE / SESSION TYPE: DAILY PROGRESS / TREATMENT Patient's Name: Ian Monsalve Age / Sex: 84 y.o. / male [id number] 1940 Date of service: 10/31/24 TIME IN: 1517 TIME OUT: 1557 Patient Active Problem List Diagnosis Palpitations Acute congestive heart failure, unspecified heart failure type (HCC) No past medical history on file. Past Surgical History: Procedure Laterality Date CHOLECYSTECTOMY Precautions (including weight-bearing): PAMUNKEY, Fall risk, and Bed / chair alarm Subjective: Pt said I need to go to a rehab and get stronger before I go home to reduce caregiver burden to my Therapy Pain: Pre-therapy pain level: 0 /10 Pain location: No pain - Location N/A Pain Intervention(s): Pain medication administered prior to session Post-therapy pain level: 0 /10 Pain scale reference: 0-10 SCALE Objective: Appearance: Presentation upon OT arrival: Patient Supine with head of bed elevated Presentation upon OT departure: Patient Supine with head of bed elevated Bed / Chair alarm in place and activated upon OT departure: Yes Call light within arms reach of patient at end of session: Yes Completed patient handoff and notified BOARDING MACHINE OPERATOR / RN, name: Carri , of patient's location and functional status upon completion of session VITAL SIGNS: Heart rate at rest: 80 BPM Heart rate with activity: 79 BPM O2 saturations at rest: 94 % O2 saturations with activity: 96 % Oxygen LPM: 4 L via NC Cognitive / Perceptual: A & O x 4 Mobility / Transfers: Bed Mobility: supine to sit at EOB requring SBA for safety. Transfer(s): sit <> stand at EOB requring SBA for safety min vc's for proper hand placement. Pt performed functional mobility transfer from at EOB to toile with use of w/w requiring CGA for safety. TOILET TRANSFER LOCATION: RAISED TOILET SEAT with ARMS OVERALL ASSIST LEVEL: Partial / moderate assistance: Less than half (1% - 49%) DEVICE: GRAB BARS and WHEELED WALKER ADDITIONAL DOCUMENTATION: Pt performed functional mobility transfer from toilet to sink/ bed with use of w/w requiring CGA for safety. Living Skills / Other Activities: Toileting Patient completed toileting of hygiene management while sitting on raised toilet seat with arms andstanding at raised toilet seat with arms with overall Minimal assistance. Patient required assistance for physical assistance for balance, sequencing, set-up of items, increased time to complete, andsafety. Grooming: Patient completed grooming of washing hands and combing hair while Standing at sink with overall Supervision assistance. Patient required assistance for safety Caregiver Present: No Education & Training Provided: Role of OT, OT plan of care, ADL training, Bed mobility training, Functional transfer training, Balance training, Safety education, Pursed lip breathing / Relaxation techniques, and Energy conservation education Assessment: Activity tolerance / response to OT session: GOOD PARTICIPATION, GOOD MOTIVATION, and RECEPTIVE TO EDUCATION / TRAINING Progress towards goals: Please refer to care plan from this date for progress towards individual goals Plan: Therapy Plan: Rehab Potential (Prognosis): good OT Recommendations This Date: OT RECOMMENDATIONS: OT Recommendation: Senior Care Facility Flow sheet updated and OT Consultation in Regards to Change in Discharge Recommendations: YES /NO: No Additional recommendation comments: Recommend SNF due to: Risk of injury at home, Unable to safely care for self in the home, Skilled therapy needed to address care for self in the home, Skilled therapy needed to address functional deficits, Skilled therapy needed for patient to return to prior level of independence Frequency of therapy:OT Frequency during current admission: 3-5x/wk If this is the last note, consider this the discharge summary Nidia AquilesLISA barrow 10/31/24 Cosigned by Jhon Guidry OT at 11/02/2024 8:13 AM CDT * Vernell Tobias, RD - 10/31/2024 3:13 PM CDT NUTRITION ASSESSMENT Nutrition Status: Patient at risk for malnutrition, but does not meet AAIM (ASPEN) criteria for malnutrition. REASON FOR ASSESSMENT: Follow Up Encounter Date: 10/31/24 3:13 PM Admission Date: 10/18/2024 LOS: 13 days HPI: Patient is a 84 y.o. 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 Patient reports shortness of breath started 7 days ago and progressively got worse. EMS was called for further evaluation. On EMS arrival, patient was noted to be satting in the 70s on room air. 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 Patient also endorses poor appetite associated with generalized weakness. Ambulates with a cane at baseline. Also reports occasional productive cough with clear phlegm. Denies any other associated symptoms. Reports compliance with his home medications. 10/25: Modifying diet to low sodium. Ordering Gelatien bid. 10/31-Recent PO intakes 75-100 x 14. Gelatein Plus ordered bid - recorded intakes 100% x 1. Due to adequate inpatient intakes, will decrease Gelatein Plus to daily Objective No past medical history on file. Past Surgical History: Procedure Laterality Date CHOLECYSTECTOMY Social History Tobacco Use Smoking status: Former Current packs/day: 0.00 Types: Cigarettes Start date: 1955 Quit date: 1997 Years since quittin.4 Passive exposure: Past Smokeless tobacco: Never Substance and Sexual Activity Drug use: Not on file Sexual activity: Not on file Alcohol Use: Unknown (02/23/2023) AUDIT-C Frequency of Alcohol Consumption: Not on file Average Number of Drinks: Patient does not drink Frequency of Binge Drinking: Not on file MEDICATION/LAB REVIEW: Scheduled Meds: ampicillin-sulbactam, 3 g, intravenous, Q6H THERESA [Held by Provider] aspirin, 81 mg, oral, Daily atenoloL, 50 mg, oral, Daily atorvastatin, 20 mg, oral, Nightly calcitRIOL, 0.25 mcg, oral, Daily dofetilide, 125 mcg, oral, BID fenofibrate nanocrystallized, 145 mg, oral, Daily ipratropium-albuteroL, 3 mL, nebulization, Q6H While awake (RT) levothyroxine, 25 mcg, oral, Daily - 0600 midodrine, 10 mg, oral, TID AC pantoprazole DR, 40 mg, oral, Daily senna-docusate, 1 tablet, oral, BID tamsulosin, 0.4 mg, oral, Daily with dinner tolvaptan, 15 mg, oral, Q24H warfarin, 5 mg, oral, Once - 1800 Continuous Infusions: PRN Meds: acetaminophen clorazepate fluticasone propionate ondansetron ramelteon Recent Labs Lab Units 10/31/24 0006 10/29/24 0345 10/28/24 0413 SODIUM mmol/L 123* < > 127* POTASSIUM PLASMA mmol/L 3.7 < > 3.9 CHLORIDE mmol/L 89* < > 88* CO2 mmol/L 30 < > 37* BUN SERUM mg/dL 32* < > 37* CREATININE mg/dL 1.26 < > 1.36* [id number] mL/min/1.73 m2 56* < > 51* CALCIUM mg/dL 7.6* < > 8.4* MAGNESIUM mg/dL -- -- 1.8 < > = values in this interval not displayed. Recent Labs Lab Units 10/31/24 0006 10/30/24 1603 10/30/24 0725 10/30/24 0026 10/29/24 2115 10/29/24 0345 10/28/24 0413 GLUCOSE mg/dL 106 110 104 117 128 96 92 No results found for: ALT, AST, BILIRUBIN, ALKPHOS, LIPASE Lab Results Component Value Date HGBA1C 5.6 10/19/2024 NURSING ASSESSMENT: Last BM Date: 10/29/24 Bowel Sounds (All Quadrants): Active Tru Scale Score: 19 Skin Integrity: Bruising, Redness Vital Signs BP: 107/64 Temp: 36.3 ??C (97.3 ??F) Pulse: 88 Resp: 19 SpO2: 93 % Intake/Output Summary (Last 24 hours) at 10/31/2024 1513 Last data filed at 10/31/2024 0550 Gross per 24 hour Intake 1212 ml Output 4625 ml Net -3413 ml Adult Malnutrition Scoring Tool (MST) What diet do you follow at home?: Regular Have You Recently Lost Weight Without Trying?: No Have you been eating poorly because of a decreased appetite?: No Malnutrition Screening Tool (MST) Score: 0 Within the past 12 months, you worried that your food would run out before you got the money to buymore.: Never true Within the past 12 months, the food you bought just didn't last and you didn't have money to get more.: Never true Anthropometrics Weight: 78.2 kg (172 lb 6.4 oz) Admission Weight : 77 kg Weight Change: 1.20 kg (2.64 lbs) IBW/kg (Calculated) : 67.2 kg Height: 170.2 cm (5' 7.01) Weight in (lb) to have BMI = 25: 159.3 BMI (Calculated): 27 BMI Classification: BMI 25.0 - 29.9 Overweight Wt Readings from Last 10 Encounters: 10/26/24 78.2 kg (172 lb 6.4 oz) 02/23/23 88.5 kg (195 lb) ESTIMATED NEEDS: Weight Used for Equation Calculations (RD Determined): 78.2 kg (172 lb 6.4 oz) Total Kcal/kg Estimated Needs : 1876.8 Kcal/k. Type of Weight Used for Estimated Kcals: Current Total Protein Estimated Needs (gm): 78.2 Protein Needs Based on g/k.0 (CKD) Type of Weight Usedfor Estimated Protein : Current Total Fluid Estimated Needs: 1925 Fluid Needs Based on : (1-2 liters (CHF per chart) or per MD) Type of Weight Used for Estimated Fluid Needs: Current Dietary Orders (From admission, onward) Start Ordered 10/30/24 1402 Adult Diet Restricted; 2 GM Sodium; 2000mL = Diet 1400/Nursing 600 Diet effective now Question Answer Comment (CH) Diet type Restricted Fat / Sodium Restriction: 2 GM Sodium Fluid restriction dietary / 24h: 2000mL = Diet 1400/Nursing 600 10/30/24 1401 10/25/24 1033 Oral Nutrition Supplements (CH) Select Supplement: Gelatein Plus With Breakfast and Dinner Question: (CH) Select Supplement: Answer: Gelatein Plus 10/25/24 1032 Allergies: Reviewed. IMPRESSION: F/U Pt A&O x 4, Pt requesting SNF placement at this time. Pt working w RN at time of visit. -Intakes/Appetite: Recent PO intakes 75-100 x 14. Gelatein Plus ordered bid (Pt reported eating poorly but did not like Ensure)- recorded intakes 100% x 1. RD messaged RN/PCT to inquire further use. Due to adequate inpatient intakes, will decrease Gelatein Plus to daily -low Na+ Lab: Pt w CKD, Nephrology consulted. Noted Pt drinking excessive free fluid. + Lasix. Net I&O= -39.4 liters since admission. Pt on 2000 mL fluid restriction. -GI: WDL. Last BM 10/29 -Skin: bruise/red buttocks/extremities. -Edema: BLE 1+ edema -Weight: Current Wt 172 lbs was taken via scale. Wt history reveals Wt fluctuations over the past couple of weeks, no other recent Wts available in history. Will monitor for Wt changes -Samaritan/Cultural Diet Restrictions/Social Needs: No rastafarian or cultural food preferences per previous RD note. Negative hunger screen. Weights/Vitals Weight (LB) Weight (KG) Weight Method 10/18/2024 173 lb 78.472 kg 10/22/2024 169 lb 12.1 oz 77 kg 10/26/2024 172 lb 6.4 oz 78.2 kg Bed scale AAIM (ASPEN) MALNUTRITION ASSESSMENT: Date of completion: 10/25 ASPEN/AND Malnutrition Screening: Patient does not meet malnutrition criteria NUTRITION FOCUSED PHYSICAL EXAM: Completed, physical findings below. Subcutaneous Fat Loss Orbital Region - Surrounding the Eye: Slightly dark circles Upper Arm Region - Triceps/Biceps: Ample fat tissue obvious between folds of skin Muscle Loss Sabianism Region - Temporalis Muscle: Slight depression Clavicle Bone Region - Pectoralis Major, Deltoid, Trapezius Muscles: Not visible in male, visible but not prominent in female Clavicle and Acromion Bone Region - Deltoid Muscle: Rounded, curves at arm/shoulder/neck Dorsal Hand - Interosseous Muscle: Muscle bulges, could be flat in some well nourished people Anterior Thigh and Patellar Region - Quadricep Muscle: Well-rounded, well- developed, Patella not prominent Posterior Calf Region - Gastrocnemius Muscle: Well-developed bulb of muscle NUTRITION DIAGNOSIS: Nutrition Diagnosis 1: Excessive fluid intake Related to: Food choices Evidenced by: Other (comment) (per chart review, need for fluid restriction) INTERVENTION(S): Summary: Communication, [place] diet preferences within the limits of nutrition care order, Modify supplement GOAL(S): Continue adequate PO intakes, Tolerance of medical food supplement by next assessment MONITORING/EVALUATION: Appetite, Discharge plans, Labs, Plan of care, PO intake, Stool patterns, Weight changes, Supplement tolerance, Food preferences Diet Instructions Dietitian recommends a low sodium diet on discharge. Limit sodium to 2,000 mg daily (500-700 mg per meal), and do not add salt to your food. Avoid foodsthat are high sources of sodium, such as fast foods, fried/breaded foods, canned goods, deli meats and gravies/sauces. -Otherwise, eat a variety of healthy foods from all the food groups. Eat fruits, vegetables, whole grains, and fat-free or low-fat dairy foods. Whole grains include whole-wheat breads, cereals, pasta, and brown rice. Choose lean meats, poultry (chicken and turkey), fish, beans, eggs, and nuts. A healthy meal plan is low in unhealthy fats, salt, and added sugar. Healthy fats include olive oil and canola oil. Recommend to avoid sugary drinks like lemonade, regular soda, gatorade, and sweet tea. Additional resources are available online from the Academy of Nutrition and Dietetics at www.eatright.org Discuss with your physician if you should continue to follow a fluid restriction. As of 10/31/24, a 2000 mL (or 2 liters) fluid restriction was ordered. Please call the dietitian's office at [phone] if you have questions about nutrition. If you would like to see our outpatient dietitian please have your physician fax a referral to [phone], and you may call [phone] to make an appointment. For any other questions you can call and ask to be connected to the floor that you were discharged from. Vernell Tobias RD, LD * Shailesh Pabon MD - 10/31/2024 11:08 AM CDT Pulmonary Daily Progress Chief complaint/reason for consult: New O2 requirement, Pulmonary nodules, pulmonary hypertension . Interval History: Comf on NC Afebrile No CP No sputum Presenting History: 84 y/o CM who presented to the ED on 10/18/24 with complaints of shortness of breath that had been worsening over the last week. He was reportedly satting 70% on room air when EMSarrived. 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 States he has been having increased BAH. Does have cough at times that is productive of clear sputum. Started smoking age 12 and quit in 1996, smoked up to 1.5 ppd for 44 years, giving a 66 pack year hx. He has been on amiodarone in the past but not for sometime. 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 No service. CT Chest 10/18/24: Very severe emphysematous changes, moderate right pleural effusion, lung nodules Carries a hx of atrial fibrillation s/p multiple ablations, HFrEF, ischemic cardiomyopathy s/p BiVICD, CKD, CAD s/p CABG, Allergies: Allergies Allergen Reactions Trazodone Hcl Unknown Morphine Hydrocodone Unknown Lunesta [Eszopiclone] Other (See comments) Gave him crazy dreams Tramadol Nausea only Vicodin [Hydrocodone-Acetaminophen] Nausea only Medications: Scheduled Meds:ampicillin-sulbactam, 3 g, intravenous, Q6H THERESA [Held by Provider] aspirin, 81 mg, oral, Daily atenoloL, 50 mg, oral, Daily atorvastatin, 20 mg, oral, Nightly calcitRIOL, 0.25 mcg, oral, Daily dofetilide, 125 mcg, oral, BID fenofibrate nanocrystallized, 145 mg, oral, Daily ipratropium-albuteroL, 3 mL, nebulization, Q6H While awake (RT) levothyroxine, 25 mcg, oral, Daily - 0600 midodrine, 10 mg, oral, TID AC pantoprazole DR, 40 mg, oral, Daily senna-docusate, 1 tablet, oral, BID tamsulosin, 0.4 mg, oral, Daily with dinner tolvaptan, 15 mg, oral, Q24H warfarin, 5 mg, oral, Once - 1800 Continuous Infusions: PRN Meds:. acetaminophen clorazepate fluticasone propionate ondansetron ramelteon ROS Above review of system reviewed on 10/31/2024 Vitals: Vitals: 10/30/24 2000 10/31/24 0004 10/31/24 0354 10/31/24 0753 BP: 93/62 103/64 107/64 BP Location: Left arm Right arm Left arm Patient Position: Lying Lying Lying Pulse: 80 80 80 79 Resp: 16 18 19 Temp: 37 ??C (98.6 ??F) 36.5 ??C (97.7 ??F) 36.3 ??C (97.3 ??F) TempSrc: Oral Oral Oral SpO2: 92% 90% 93% Weight: Height: Temp (24hrs), Av.4 ??C (97.6 ??F), Min:36.3 ??C (97.3 ??F), Max:37 ??C (98.6 ??F) Intake/Output Summary (Last 24 hours) at 10/31/2024 1108 Last data filed at 10/31/2024 0550 Gross per 24 hour Intake 1212 ml Output 5175 ml Net -3963 ml Physical Exam Vitals and nursing note reviewed. Constitutional: General: He is not in acute distress. Appearance: He is well-developed. HENT: Head: Normocephalic and atraumatic. Comments: Hard of hearing Nose: Nose normal. Mouth/Throat: Mouth: Mucous membranes are moist. Eyes: Conjunctiva/sclera: Conjunctivae normal. Cardiovascular: Rate and Rhythm: Normal rate and regular rhythm. Heart sounds: No murmur heard. Pulmonary: Effort: Pulmonary effort is normal. No respiratory distress. Breath sounds: No stridor. Decreased breath sounds present. No wheezing, rhonchi or rales. Abdominal: General: Bowel sounds are normal. Palpations: Abdomen is soft. Skin: General: Skin is warm and dry. Neurological: Mental Status: He is alert. Psychiatric: Behavior: Behavior normal. Lab/Radiology/Diagnostic Review: Labs: Recent Labs Lab Units 10/31/24 0006 10/30/24 0026 10/29/24 0345 WBC K/cumm 3.03* 3.82 3.30* HEMOGLOBIN g/dL 11.3* 12.2* 11.9* HEMATOCRIT % 33.1* 35.6* 35.3* PLATELETS K/cumm 124* 122* 120* NEUTROS PCT % 69.4 69.1 66.4 LYMPHS PCT % 14.2 14.7 17.0 MONOS PCT % 13.5 12.8 12.4 EOS PCT % 2.3 2.1 2.7 Recent Labs Lab Units 10/31/24 0006 10/30/24 1603 10/30/24 0725 SODIUM mmol/L 123* 121* 121* POTASSIUM PLASMA mmol/L 3.7 4.0 3.6 CHLORIDE mmol/L 89* 85* 84* CO2 mmol/L 30 26 28 ANIONGAP mmol/L 4 10 9 GLUCOSE mg/dL 106 110 104 BUN SERUM mg/dL 32* 30* 28* CREATININE mg/dL 1.26 1.19 1.17 CALCIUM mg/dL 7.6* 7.8* 7.8* Imaging: CXR 10/30/24: increased PVC?R effusion Other diagnostic tests: Echo 10/20/24: EF 37%, LVDD, RV volume overload, RVSP 60 I have personally reviewed above laboratory findings, chest imaging, and diagnostic tests 10/31/2024 Assessment and Plan: Acute hypoxic respiratory insufficiency Severe emphysema RLL cavitary lesion: pneumonia vs malignancy vs bullous disease B effusions, R>L, likely due to CHF, parapneumonic also possible; persistent but clinically doesnot appear infected and does have ongoing volume overload Afib CHF CKD CAD w hx CABG hyponatremia Recs: - Wean supplemental O2 for SpO2 88-92% - Nebs TID - Unasyn day 12, completed azithromycin. Given cavitary lesion would continue augmentin at discharge for total treatment period of 3-4 weeks. - if signs ongoing infection would need thoracentesis; for now favor monitoring given likely CHF and anticoagulation - Will need repeat CT chest imaging in 4-6 weeks - nephrology following - O2 assessment prior to d/c * Delvin Mendenhall MD - 10/31/2024 10:56 AM CDT Nephrology Progress Note [facility] SUBJECTIVE 10/31 Na 123. Po tolvaptan started. PO FR. Will change to 1500 cc/24 hours. Voiding trial today. 10/[address] Gillespie, a keen observer noticed pt drinking excessive free water, this is likely contributing,PO FR started. Lasix IV times 1. Tolvaptan 15 mg po times 1 tonight. Frequent BMP. UO is now appropriate. Pt agreeable to Rehab. 10/29 Na 126. Over 11 liters urine. Overall stable. Will need IVF. 10/28 Slowly improving. Bp soft. Guerrero draining clear urine. Over 7 litres of urine reported? OBJECTIVE Vitals: Vitals: 10/30/24199910/31/24 0004 10/31/24 0354 10/31/24 0753 BP: 93/62 103/64 107/64 BP Location: Left arm Right arm Left arm Patient Position: Lying Lying Lying Pulse: 80 80 80 79 Resp: 16 18 19 Temp: 37 ??C (98.6 ??F) 36.5 ??C (97.7 ??F) 36.3 ??C (97.3 ??F) TempSrc: Oral Oral Oral SpO2: 92% 90% 93% Weight: Height: Intake/Output Summary (Last 24 hours) at 10/31/2024 1056 Last data filed at 10/31/2024 0550 Gross per 24 hour Intake 1212 ml Output 5175 ml Net -3963 ml REVIEW OF SYSTEMS Review of Systems Constitutional: Negative. HENT: Negative. Eyes: Negative. Respiratory: Negative. Cardiovascular: Negative. Gastrointestinal: Negative. Genitourinary: Negative. Musculoskeletal: Negative. Skin: Negative. Allergic/Immunologic: Negative. Hematological: Negative. All other systems reviewed and are negative. PHYSICAL EXAM Physical Exam Constitutional: Appears well-developed. HENT: wnl Head: Normocephalic. Eyes: Pupils are equal, round, and reactive to light. Neck: Normal range of motion. Neck supple. Cardiovascular: Normal rate. Pulmonary/Chest: Effort normal and breath sounds normal. Abdominal: Soft. Musculoskeletal: Normal range of motion. Neurological: Alert, oriented. Skin: Skin is warm. Nursing note and vitals reviewed. MEDICATIONS Current Facility-Administered Medications: acetaminophen (TYLENOL) tablet 500 mg, 500 mg, oral, Q6H PRN, Luan Guillermo DO, 500 mg at 10/27/242019 ampicillin-sulbactam (UNASYN) 3 g in sodium chloride 0.9% 100 mL IVPB, 3 g, intravenous, Q6H THERESA, Ryan Bailey MD, Last Rate: 220 mL/hr at 10/31/24 0502, 3 g at 10/31/24 050 [Held by Provider] aspirin enteric coated tablet 81 mg, 81 mg, oral, Daily, Namrata Spencre NP, 81 mg at 10/24/24 100 atenoloL (TENORMIN) tablet 50 mg, 50 mg, oral, Daily, Namrata Spencer NP, 50 mg at 10/31/24945 atorvastatin (LIPITOR) tablet 20 mg, 20 mg, oral, Nightly, Namrata Spencer NP, 20 mg at 10/30/241999 calcitRIOL (ROCALTROL) capsule 0.25 mcg, 0.25 mcg, oral, Daily, Namrata Spencer NP, 0.25mcg at 10/31/24945 clorazepate (TRANXENE) tablet 7.5 mg, 7.5 mg, oral, BID PRN, Luan Guillermo DO, 7.5 mg at 10/30/242000 dofetilide (TIKOSYN) capsule 125 mcg, 125 mcg, oral, BID, Namrata Spencer NP, 125 mcg at10/31/24945 fenofibrate nanocrystallized (TRICOR) tablet 145 mg, 145 mg, oral, Daily, Namrata Spencer NP, 145 mg at 10/31/24945 fluticasone propionate (FLONASE) 50 mcg/actuation nasal spray 2 spray, 2 spray, each nostril, DailyPRN, Namrata Spencer NP ipratropium-albuteroL (DUO-NEB) 0.5-2.5 mg/3 mL nebulizer solution 3 mL, 3 mL, nebulization, Q6H While awake (RT), Ryan Bailey MD, 3 mL at 10/31/24 0856 levothyroxine (SYNTHROID) tablet 25 mcg, 25 mcg, oral, Daily - 0600, Namrata Spencer NP,25 mcg at 10/31/24 0502 midodrine (PROAMATINE) tablet 10 mg, 10 mg, oral, TID AC, Delvin Mendenhall MD, 10 mg at 10/31/24 0946 ondansetron (ZOFRAN) injection 4 mg, 4 mg, intravenous, Q6H PRN, Namrata Spencer NP pantoprazole DR (PROTONIX) extended release tablet 40 mg, 40 mg, oral, Daily, Carla Jean MD,40 mg at 10/31/2446 ramelteon (ROZEREM) tablet 8 mg, 8 mg, oral, Nightly PRN, Namrata Spencer NP, 8 mg at 10/30/241999 senna-docusate (PERICOLACE) 8.6-50 mg per tablet 1 tablet, 1 tablet, oral, BID, Luan Guillermo DO, 1 tablet at 10/30/242010 tamsulosin (FLOMAX) extended release capsule 0.4 mg, 0.4 mg, oral, Daily with dinner, Luan Guillermo DO, 0.4 mg at 10/30/241842 tolvaptan (SAMSCA) split tablet 15 mg, 15 mg, oral, Q24H, Delvin Mendenhall MD, 15 mg at 10/30/24 2227 warfarin (COUMADIN) tablet 5 mg, 5 mg, oral, Once - 1800, Donte Camacho MD Lab/Radiology/Diagnostic Review: Recent Results (from the past 24 hours) Basic metabolic panel Collection Time: 10/30/24 4:03 PM Result Value Ref Range Sodium 121 (Critical) 135 - 145 mmol/L Potassium, pl 4.0 3.3 - 4.9 mmol/L Chloride 85 (L) 97 - 110 mmol/L CO2 26 22 - 32 mmol/L Anion gap 10 2 - 15 mmol/L BUN 30 (H) 6 - 25 mg/dL Creatinine 1.19 0.80 - 1.30 mg/dL Glucose 110 70 - 199 mg/dL Calcium 7.8 (L) 8.5 - 10.3 mg/dL eGFR Collection Time: 10/30/24 4:03 PM Result Value Ref Range eGFR 60 >=60 mL/min/1.73 m2 Basic metabolic panel Collection Time: 10/31/24 12:06 AM Result Value Ref Range Sodium 123 (Critical) 135 - 145 mmol/L Potassium, pl 3.7 3.3 - 4.9 mmol/L Chloride 89 (L) 97 - 110 mmol/L CO2 30 22 - 32 mmol/L Anion gap 4 2 - 15 mmol/L BUN 32 (H) 6 - 25 mg/dL Creatinine 1.26 0.80 - 1.30 mg/dL Glucose 106 70 - 199 mg/dL Calcium 7.6 (L) 8.5 - 10.3 mg/dL CBC with auto differential Collection Time: 10/31/24 12:06 AM Result Value Ref Range WBC 3.03 (L) 3.80 - 9.90 K/cumm Hgb 11.3 (L) 13.0 - 17.5 g/dL Hct 33.1 (L) 38.9 - 50.3 % Plt 124 (L) 150 - 400 K/cumm MPV 11.4 9.1 - 12.3 fL RBC 3.65 (L) 4.30 - 5.80 M/cumm MCV 90.7 81.3 - 96.4 fL MCH 31.0 27.1 - 33.3 pg MCHC 34.1 32.3 - 35.7 g/dL RDW CV 15.1 (H) 11.1 - 14.9 % RDW SD 50.5 (H) 35.7 - 48.1 fL NRBC abs 0.00 0.00 - 0.01 K/cumm Protime-INR Collection Time: 10/31/24 12:06 AM Result Value Ref Range PT 18.9 (H) 9.7 - 13.0 sec INR 1.73 (H) 0.90 - 1.20 Pro B-type natriuretic peptide Collection Time: 10/31/24 12:06 AM Result Value Ref Range NT-proBNP 4,761 (H) <=450 pg/mL Differential, auto Collection Time: 10/31/24 12:06 AM Result Value Ref Range Neutrophil abs 2.10 1.50 - 6.50 K/cumm Imm gran abs 0.01 0.00 - 0.10 K/cumm Lymphocyte abs 0.43 (L) 0.80 - 3.30 K/cumm Monocyte abs 0.41 0.20 - 0.80 K/cumm Eosinophil abs 0.07 0.00 - 0.50 K/cumm Basophil abs 0.01 0.00 - 0.10 K/cumm Neutrophil pct 69.4 % Imm gran pct 0.3 % Lymphocyte pct 14.2 % Monocyte pct 13.5 % Eosinophil pct 2.3 % Basophil pct 0.3 % eGFR Collection Time: 10/31/24 12:06 AM Result Value Ref Range eGFR 56 (L) >=60 mL/min/1.73 m2 XR Chest 1 View Result Date: 10/27/2024 Narrative: EXAMINATION: XR CHEST 1 VIEW HISTORY: The patient is an 84-year-old male who presents with shortness of breath. Comparison made with the previous study dated 10/26/2024. TECHNIQUE: AP portable view of the chest. FINDINGS: Cardiomegaly with aortic atherosclerosis. Findings of pulmonary vascular congestion. No focal consolidation. Impression: Cardiomegaly with pulmonary vascular congestion. Electronically signed by: Coco Youngblood M.D. XR Chest 1 View Result Date: 10/26/2024 Narrative: EXAMINATION: XR CHEST 1 VIEW HISTORY: The patient is a 84-year-old male who presents with shortness of breath. Comparison made with the previous study dated 10/24/2024. TECHNIQUE: AP portable view of the chest. FINDINGS: Cardiomegaly with aortic atherosclerosis. Findings of pulmonary vascular congestion. No focal infiltrate seen. Impression: Cardiomegaly with pulmonary vascular congestion. Electronically signed by: Coco Youngblood M.D. XR Chest 1 Vw Portable Result Date: 10/24/2024 Narrative: EXAMINATION: XR CHEST 1 VIEW HISTORY: The patient is an 84-year-old male who presents with hypoxia. Comparison made with the previous study dated 10/23/2024. TECHNIQUE: AP portable view ofthe chest. FINDINGS: Cardiomegaly with aortic atherosclerosis. Findings of pulmonary vascular congestion. Right lower lobe infiltrate with the remainder of the lungs being clear. Impression: Findings as described above. Electronically signed by: Coco Youngblood M.D. XR Chest 1 Vw Portable Result Date: 10/23/2024 Narrative: Examination: XR CHEST 1 VIEW Date: 10/23/2024 7:20 AM History: effusion Comparison: 10/18/2024. Findings: Normal heart size, sternotomy and left AICD is again seen. A small right effusion andmoderate right lower lobe infiltrate with patchy consolidation is unchanged. Impression: Persistent right effusion with patchy right lower lobe consolidation. Electronically signed by: Perla Cowart M.D. CT Abdomen Pelvis WO Contrast Result Date: 10/21/2024 Narrative: EXAMINATION: CT ABDOMEN PELVIS WO CONTRAST DATE: 10/21/2024 5:35 AM HISTORY: Weight loss,unintended TECHNIQUE: Images through the abdomen and pelvis were obtained without contrast. FINDINGS: There are bilateral pleural effusions. There is bilateral lower lobe atelectasis. 26 mm left hepatic cyst is present. The patient is status post cholecystectomy. There is no biliary ductal dilatatio n. The spleen, pancreas and adrenal glands are grossly normal on this noncontrast examination. There is mild bilateral perinephric stranding. There is no hydronephrosis, hydroureter or renal calculus. There are several small exophytic left renal lesions which cannot be further characterized on this noncontrast examination. There is no free air or fluid. There is no bowel obstruction. The appendixis not identified with confidence. There are multiple colonic diverticula. There is a 43 mm infrarenal abdominal aortic aneurysm. There are postoperative changes of the aortobiiliac bypass. Radiationtherapy changes are noted in the prostate. Impression: Limited study secondary to lack of intravenous contrast. No acute intra-abdominal abnormality. Colonic diverticulosis. Bilateral pleural effusions and bilateral lower lobe atelectasis. 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 Electronically signed by: Neel Morrison M.D. Transthoracic Echo (TTE) Complete W Doppler/CF Result Date: 10/21/2024 Narrative: [address] [address] Echocardiogram Report Patient Name: IAN MONSALVE H : 1940 Study Date: 10/20/2024 12:11:53 PM Gender: M Tech: Location: [id number] Ref Provider: CARLA JEAN Height(Cm): 170 BSA: [...] Normal atrial septum. Left Ventricle: Left ventricle cavityis within upper limits of normal. Optison contrast [...] Moderate enlargement of right ventricle. Severe right ventricu lar hypokinesis. Abnormal (paradoxical) septal motion consistent with [...] the mitral valve. Mild mitral valve regurgitation. PulmonicValve: Normal structure of the pulmonic valve. Mild pulmonic regurgitation. Tricuspid Valve: Normalstructure of the tricuspid valve. Severe pulmonary hypertension based on right ventricular systolicpressure. Estimated peak RVSP is 60 mmHg. Moderate tricuspid regurgitation. Pericardium: Normal pericardium with no significant pericardial effusion. Aorta: Normal aortic root. IVC: The IVC is not well visualized. CONCLUSIONS: Echo contrast was used. Left ventricle cavity iswithin upper limits of normal. Moderate concentric left ventricular hypertrophy. Moderate global left ventricular systolic dysfunction. Diastolic dysfunction is present. Increased left heart filling pressures based on elevated E/E`. Ejection fraction is measured at 37 %. Moderate RV enlargement with severe hypokinesis. Abnormal (paradoxical) septal motion consistent with RV volume overload and/orelevated RV end-diastolic pressure. Mild biatrial enlargement. Linear artifact in right atrium. Normal structure of the mitral valve. Mild mitral valve regurgitation. Aortic cusps appear mildly sclerotic. No evidence of hemodynamically significant aortic stenosis by Doppler. [id number] pulmo nary hypertension, estimated RVSP 60 mmHg. Moderate tricuspid regurgitation. Electronically Signed By: Clive Godfrey MD, [facility] 10/21/2024 6:43:00 AM CDT US Retroperitoneal Complete Result Date: 10/19/2024 Narrative: EXAMINATION: RENAL ULTRASOUND Date: 10/19/2024 2:20 PM History: Kidney failure, acute Comparison: None. Findings: The right kidney measures 10.5 x 4.7 x 4.0 cm . Parenchymal echogenicity iswithin normal limits. There is no hydronephrosis, calculus, or perinephric fluid. Possible corticalmass in the right kidney measuring 1.4 x 1.3 x 1.4 cm The left kidney measures 10.6 x 5.0 x 4.0 cm.Parenchymal echogenicity is within normal limits. There is no hydronephrosis, calculus or perinephric fluid. Simple cysts measuring up to 1.9 cm in the left kidney. The bladder Is unremarkable. Prostate is enlarged measuring 4.2 x 4.6 x 5.3 cm Impression: 1. Possible mass in the right kidney measuring up to 1.4 cm. Suggest MRI of the kidneysfor further evaluation. 2. Enlarged prostate. Electronically signed by: Rajendra Oh II, D.O. CT Chest WO Contrast Result Date: 10/18/2024 Narrative: EXAMINATION: Computed tomography of the chest without intravenous contrast HISTORY: Abnormal chest radiograph. TECHNIQUE: Transaxial computed tomographic images of the chest were obtained without intravenous contrast according to the standard protocol. COMPARISON: Chest radiograph dated same day. FINDINGS: There is a moderately sized right pleural effusion with fluid in the right majorfissure and right upper, middle, and lower lobe consolidations most notable in the right lower lobe. Small left pleural effusion with left lower lobe atelectasis. Severe centrilobular emphysematous changes. Poststernotomy changes. Mild mediastinal lymphadenopathy with largest mediastinal node measur ing 1.1 cm in short axis dimension. Nodules in the left upper lobe, largest measuring approximately1.1 x 0.5 cm. Follow-up suggested. Main pulmonary [...] may represent pseudo-thickening from underdistention versus gastritis. Impression: 1. Moderately sized right pleural effusion with consolidations in the right upper, right lower, and right middle lobes suggestive of multifocal pneumonia. 2. Multiple left upper lobe pulmonary nodules largest measuring 1.1 cm. Short interval follow-up suggested. 3. Dilated main pulmonary artery suggestive of pulmonary arterial hypertension. 4. Severe centrilobular emphysematous changes. 5. Nonspecific mild gastric wall thickening may represent pseudo-thickening from underdistentionversus gastritis. Electronically signed by: Rajendra Oh II, D.O. ECG 12 lead Result Date: 10/18/2024 Narrative: Vent Rate: 80 bpm RR Interval: 749 msec RI Interval: 140 msec QRS Duration: 164 msec QT Interval: 377 msec QTC Interval: 412 msec P-R-T [place]: -52 - 226 - 226 degrees IMPRESSION: ELECTRONICVENTRICULAR PACEMAKER ST DEPRESSION, CONSIDER SUBENDOCARDIAL INJURY [0.1+ mV ST DEPRESSION] ABNORMAL ECG No change compared to prior EKG Electronically Signed By: Emilio Ratliff MD [facility] XR Chest 1 Vw Portable Result Date: 10/18/2024 Narrative: EXAMINATION: XR CHEST 1 VIEW DATE: 10/18/2024 11:20 AM INDICATION: Shortness of breath. COMPARISON: 02/23/2023. Impression: ICD leads are intact. Post sternotomy changes are noted. Cardiac mediastinal silhouettewithin normal limits. There is a small right pleural effusion. Opacities in the right lower lobe suggestive of pneumonia, increased from prior. Follow-up suggested to ensure resolution. No acute osseous abnormality. Electronically signed by: Rajendra Oh II, D.O. ASSESSMENT/PLAN CKD 3b CRS. CHF/dyspnea. R LL PNA. MBD. ICD status. RECOMMENDATIONS IV diuresis. CKD washburn. Overall improved. -10/20, BP low, start midodrine, IV ABX, decrease diuresis, CT scan kidneys. -10/21, urinary retention, ROSA worse, guerrero placed, will follow, CT scan to be reviewed. -10/22, CT scan kidneys shows exophytic cysts, will do MRI as o/p, continue guerrero, ROSA better, good UO, no new changes, difficult guerrero yesterday. -Cr 1.7 and baseline, dyspnea better, gross hematuria, difficult guerrero, traumatic hematuria, Needs CBI, will reconsult Urology. -cr is baseline, guerrero irrigation, likely needs thoracentesis, for both diagnostic and therapeutic purposes, avss, lytes stable. -CR is stable, cxr better, can switch to po diuretics tomorrow. -stable labs, BP soft, OT/PT, CMR eval, same tx, hold diuresis, po midodrine, continue guerrero, will retain on IP dc. Renal mass will be evaluated as o/p. -Start normotonic IVF, tolvaptan will not work in most cases with met alkalosis, he has some edema but that seems like third spacing, long d/w family, they want SNF and can't take care of him at home. -Critical hyponattremia possibly from excessive PO free water intake, Lasix iv times 1, tolvaptan 15 mg daily for 2 days, Rehab eval, d/w family and Dr Gillespie via text. -Na 123, still critical but better, po FR, loop diuresis carefully, DC IVF, Tolvaptan daily times 2, d/w family. I can be reached at [phone] with any concerns. Thank you Ryan Bailey MD for the consult. Delvin Mendenhall MD [employer] [phone] * Ryan Bailey MD - 10/31/2024 10:41 AM CDT General Medicine Daily Progress Patient is a 84 y.o. male who presented with a chief complaint of shortness of breath. Arrival Vitals Temp 10/18/24 1052 36.4 ??C (97.6 ??F) Pulse 10/18/24 1030 80 Resp 10/18/24 1040 24 BP 10/18/24 1030 121/81 SpO2 05/27/25 1030 99 % Temp src 10/18/24 1052 Axillary Heart Rate Source 10/20/24 2103 Monitor Patient Position 10/18/24 1631 Lying BP Location 10/18/24 1631 Right arm FiO2 (%) 10/20/24 1423 40 % Length of stay: 13 days Hospital Course : Interval History: Noticed to have increasing O2 requirement. Chest x-ray yesterday showed increased pulmonary edema. Subjective: No complaints. Denies shortness of breath Objective: Vitals: 24hr Min/Max: Temp Min: 36.3 ??C (97.3 ??F) Max: 37 ??C (98.6 ??F) Pulse Min: 79 Max: 81 BP Min: 93/62 Max: 107/64 Resp Min: 16 Max: 20 SpO2 Min: 83 % Max: 96 % Most Recent : Vitals: 10/30/24199910/31/24 0004 10/31/24 0354 10/31/24 0753 BP: 93/62 103/64 107/64 BP Location: Left arm Right arm Left arm Patient Position: Lying Lying Lying Pulse: 80 80 80 79 Resp: 16 18 19 Temp: 37 ??C (98.6 ??F) 36.5 ??C (97.7 ??F) 36.3 ??C (97.3 ??F) TempSrc: Oral Oral Oral SpO2: 92% 90% 93% Weight: Height: I/O last 2 completed shifts: In: 1212 [P.O.:50; I.V.:1162] Out: 5775 [Urine:5775] No intake/output data recorded. Physical Exam: Gen: In no apparent distress Neuro: Alert, oriented in time place and person. Pulmonary: Not dyspneic. Fine basal crackles Cardiovascular: HS 1, 2 . regular rhythm. No murmurs heard. Moderate bilateral pitting lower extremity edema. Current Meds: ampicillin-sulbactam, 3 g, intravenous, Q6H THERESA [Held by Provider] aspirin, 81 mg, oral, Daily atenoloL, 50 mg, oral, Daily atorvastatin, 20 mg, oral, Nightly calcitRIOL, 0.25 mcg, oral, Daily dofetilide, 125 mcg, oral, BID fenofibrate nanocrystallized, 145 mg, oral, Daily ipratropium-albuteroL, 3 mL, nebulization, Q6H While awake (RT) levothyroxine, 25 mcg, oral, Daily - 0600 midodrine, 10 mg, oral, TID AC pantoprazole DR, 40 mg, oral, Daily senna-docusate, 1 tablet, oral, BID tamsulosin, 0.4 mg, oral, Daily with dinner tolvaptan, 15 mg, oral, Q24H warfarin, 5 mg, oral, Once - 1800 Continuous Medications Medication Dose Last Rate PRN Medications Medication Dose Route Frequency Last Admin acetaminophen (TYLENOL) tablet 500 mg 500 mg oral Q6H PRN 500 mg at 10/27/242019 clorazepate (TRANXENE) tablet 7.5 mg 7.5 mg oral BID PRN 7.5 mg at 10/30/242000 fluticasone propionate (FLONASE) 50 mcg/actuation nasal spray 2 spray 2 spray each nostril Daily PRN ondansetron (ZOFRAN) injection 4 mg 4 mg intravenous Q6H PRN ramelteon (ROZEREM) tablet 8 mg 8 mg oral Nightly PRN 8 mg at 10/30/241999 [] I have utilized all available immediate resources to obtain, update, or review the patient's current medications (including all prescriptions, [id number] products, herbals, cannabis/cannabidiol products, and vitamin/mineral/dietary (nutritional) supplements). Lab/Radiology/Diagnostic Review: Recent Labs Lab Units 10/31/24 0006 10/30/24 0026 10/29/24 0345 WBC K/cumm 3.03* 3.82 3.30* HEMOGLOBIN g/dL 11.3* 12.2* 11.9* HEMATOCRIT % 33.1* 35.6* 35.3* MCV fL 90.7 91.5 93.1 PLATELETS K/cumm 124* 122* 120* Recent Labs Lab Units 10/31/24 0006 10/30/24 1603 10/30/24 0725 10/29/24 0345 10/28/24 0413 SODIUM mmol/L 123* 121* 121* < > 127* POTASSIUM PLASMA mmol/L 3.7 4.0 3.6 < > 3.9 CHLORIDE mmol/L 89* 85* 84* < > 88* CO2 mmol/L 30 26 28 < > 37* ANIONGAP mmol/L 4 10 9 < > 2 GLUCOSE mg/dL 106 110 104 < > 92 BUN SERUM mg/dL 32* 30* 28* < > 37* CREATININE mg/dL 1.26 1.19 1.17 < > 1.36* CALCIUM mg/dL 7.6* 7.8* 7.8* < > 8.4* MAGNESIUM mg/dL -- -- -- -- 1.8 < > = values in this interval not displayed. Recent Labs Lab Units 10/31/24 0006 10/30/24 0026 10/29/24 0345 INR 1.73* 1.73* 1.56* No results found for: BNP No results found for: TROPONINT Estimated Creatinine Clearance: 40.8 mL/min (by C-G 65 yr and older- minimum SCr 0.8 based on SCr of 1.26 mg/dL). Patient Active Problem List Diagnosis Date Noted Acute congestive heart failure, unspecified heart failure type (HCC) 10/18/2024 Palpitations 02/23/2023 All lab results stated above were reviewed by me. [] I confirmed that the patient's Advance Care Plan is present, code status is documented, or surrogate decision maker is listed in the patient's medical record. Assessment/Plan: Hypervolemic Hyponatremia: Possibly due to primary polydipsia. Normal saline discontinued. Repeat IV Lasix today. Continue fluid restriction. Acute hypoxic respiratory failure on admission. Differential includes CHF exacerbation, pneumonia. Currently on 2L NC - titrate as able. CXR - Persistent right effusion with patchy right lower lobe consolidation. 10/24: Repeat x-ray showing pulmonary vascular congestion right lower lobe infiltrate. Home O2 evaluation completed 10/28. Patient requiring 3 L with rest, 6 L with ambulation Congestive heart failure exacerbation on admission. BNP 8636. 2D echo performed- EF 37%, Mod-Severepulmonary htn, Diastolic dysfunction present. Received IV lasix. Cardiology service consulted. Initiate GDMT as appropriate. Moderate to severe pulmonary hypertension Moderately sized right pleural effusion with consolidations in the right upper, right lower, and right middle lobes suggestive of multifocal pneumonia, on admission CT. Respiratory PCR negative. Blood cultures NGTD. Strep pneumoniae and Legionella antigens are negative. Was on azithromycin, Rocephin starting on 10/18/2024; on 10/19/2024 Rocephin was changed to Unasyn - continue unasyn. Per pulmonology, thoracentes no longer needed at this time - coumadin resumed.repeat CXR PVC, RLL infiltrate. Will need repeat imaging in 4-6 weeks otherwise Multiple left upper lobe pulmonary nodules largest measuring 1.1 cm, on admission CT. Dilated main pulmonary artery suggestive of pulmonary arterial hypertension, on admission CT. Severe centrilobular emphysematous changes, on admission CT. Nonspecific mild gastric wall thickening may represent pseudo-thickening from underdistention versus gastritis, on admission CT. On PPI. Atrial fibrillation, currently paced. Previously on digoxin. Now On Tikosyn. Coumadin resumed. Monitor INR Hyperlipidemia: Continue atorvastatin Hypothyroidism: Synthroid. CAD. S/p coronary artery bypass graft x two - left internal mammary artery to the left anterior descending, left radial artery to the posterior descending artery, on 02/24/1997. History of VT, status post ablation on 12/31/2015, 04/08/2016 EP study. Hypotension - improved with midodrine - Try to avoid IVF in setting of volume overload. Right Kidney Mass - US retroperitoneum - Right kidney mass up to 1.4 cm - MRI recommended, patient with defibrillator - not able to obtain an MRI. Will discuss with nephrology regarding recommendations for further evaluation. Urine retention - Guerrero catheter in place. Tamsulosin initiated. Urology following voiding trial today. Gross Hematuria: likely 2/2 trauma from guerrero insertion + being on blood thinners. Urology consulted. Held warfarin, now resumed. Resolved but reoccurred 10/30. Appears to be clearing today. Monitor H&H. Constipation -continue laxatives. ROSA on CKD: Nephrology consulted. Renal function significantly improved. Continue to monitor. Thrombocytopenia : Stable. Monitor Nonspecific troponin elevation PT and OT as tolerated DVT prophylaxis: Coumadin GI prophylaxis: Proton Anticipated DC to SNF 11/02 Hyponatremia. Monitor and treat underlying etiology. Pancytopenia. Monitor counts. Monitor for bleeding. DVT prophylaxis: given. Code status: LIMITED - No LEORA Baiely MD [facility] Pager #: [phone] This note is dictated and transcribed by [employer] Direct direct software. Timber Setter variances may occur. Despite proof reading, typographical errors may occur. * Georgina Grant, LONG CHAIN DYEING MACHINE OPERATOR - 10/31/2024 10:03 AM CDT Physical Therapy PT PROGRESS NOTE PATIENT'S NAME:Ian Monsalve :1940 AGE:84 y.o. ROOM:[place] [id number] No past medical history on file. Past Surgical History: Procedure Laterality Date CHOLECYSTECTOMY Patient Active Problem List Diagnosis Palpitations Acute congestive heart failure, unspecified heart failure type (HCC) TIME IN: 10:03 TIME OUT: 10:58 SUBJECTIVE Patient stated I'm doing alright. 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 Slow ashley, decreased step length and w/distance became slightly unsteady TREATMENT: Balance Adkins Balance Scale 1. Sitting to Standing: Able to stand independently using hands 2. Standing Unsupported: Able to stand 2 minutes with supervision 3. Sitting with Back Unsupported but Feet Supported on Floor or on a Stool: Able to sit safely and securely for 2 minutes 4. Standing to Sitting: Uses back of legs against chair to control descent 5. Transfers: Able to transfer with verbal cueing and/or supervision 6. Standing Unsupported with Eyes Closed: Able to stand 10 seconds with supervision 7. Standing Unsupported with Feet Together: Able to place feet together independently and stand 1 minute with supervision 8. Reach Forward with Outstretched Arm While Standing: Can reach forward 12 cm (5 inches) 9. Hydro Operator Object from Floor from a Standing Position: Able to warehouse order picker slipper but needs supervision 10. Turning to Look Behind Over Left and Right Shoulders While Standing: Looks behind one side onlyother side shows less weight shift 11. Turn 360 Degrees: Needs assistance while turning 12. Place Alternate Foot on Step or Stool While Standing Unsupported: Needs assistance to keep fromfalling/unable to try 13. Standing Unsupported One Foot in Front: Loses balance while stepping or standing 14. Standing on One Leg: Unable to try needs assist to prevent fall Adkins Balance Score: 29 APPEARANCE/POSTURE (end of session): Patient sitting in b/s recliiner chair w/chair alarm in place and activated appearance otherwise unchanged from PT arrival in room HANDOFF: Verbal handoff given to Cindi KENT. ALARMS: Chair alarm in place / active and Bed alarm in place / active EDUCATION:bed mobility , functional transfer training, gait training , balance training / neuromuscular re-education, endurance training, and pursed lip breathing RESPONSE TO EDUCATION: needs reinforcement and verbalizes understanding ASSESSMENT Activity tolerance/response to P.T.: Patient tolerated therapy w/fatigue and SOB. Patient's needs increased assist w/activities w/repetition and fatigue. Patient scored 29/56 on ADKINS balance test. Patient needs frequent rest breaks between activities d/t SOB and fatigue. Patient is needs O2 and didnot have prior to admit. The tubing may cause another risk for falls. Barriers to learning: Physical Barriers to discharge: Impulsivity, Decreased endurance, Lower extremity weakness, Incontinence of bladder, Medical complications, and Stairs at home Patient continues progressing toward previously set goals which remain appropriate at this time. PLAN PT Discharge Recommendations this date: Recommendation :SNF Patient at high risk for: Falls, Injury due to reduced functional status, Injury due to balance deficits, decreased endurance O2 sats drop after ambulation drop to 85% w/PLB able to increase to >90% 4L/O2, impulsive, w/fatigue and repetition patient's need for assist increase and safety declines, PT Frequency during current admission: 3-5x/wk CARE PLAN Multi-Disciplinary Problems (from Physical Therapy) Active Problems [place] [facility] [place]: 10/19/24 Goal Start Date Expected End Date End Date PT [facility] 1 10/19/24 10/27/24 -- Goal Details: Patient will transfer supine to/from sit with modified indep. Progressing towards goal Goal Start Date Expected End Date End Date PT [facility] 2 10/19/24 10/27/24 -- Goal Details: Patient will transfer sit to/from stand with modified indep. Progressing towards goal Goal Start Date Expected End Date End Date PT [facility] 3 10/19/24 10/27/24 -- Goal Details: Patient will amb 75' with wh walker and modified indep. Progressing towards goal Goal Start Date Expected End Date End Date PT [facility] 4 10/19/24 10/27/24 -- Goal Details: Patient will negotiate 1 step with appropriate method and cg assist. Goal Start Date Expected End Date End Date PT [facility] 5 10/19/24 10/27/24 -- Goal Details: Patient will perform ZOILA LE ROM ex with SBA. If this is the last note, please consider this the discharge summary. Cosigned by Boni Allen, PT at 11/02/2024 4:14 PM CDT * Dasha Reese NP - 10/31/2024 8:18 AM CDT Cardiology Daily Progress - [facility] SUBJECTIVE: Mr. Monsalve is sitting up in bed eating breakfast. No new complaints this morning. Review of Systems: Review of systems per HPI and otherwise all other systems are negative OBJECTIVE: Scheduled Medications Medication Dose Route Frequency ampicillin-sulbactam (UNASYN) 3 g in sodium chloride 0.9% 100 mL IVPB 3 g intravenous Q6H THERESA [Held by Provider] aspirin enteric coated tablet 81 mg 81 mg oral Daily atenoloL (TENORMIN) tablet 50 mg 50 mg oral Daily atorvastatin (LIPITOR) tablet 20 mg 20 mg oral Nightly calcitRIOL (ROCALTROL) capsule 0.25 mcg 0.25 mcg oral Daily dofetilide (TIKOSYN) capsule 125 mcg 125 mcg oral BID fenofibrate nanocrystallized (TRICOR) tablet 145 mg 145 mg oral Daily ipratropium-albuteroL (DUO-NEB) 0.5-2.5 mg/3 mL nebulizer solution 3 mL 3 mL nebulization Q6H Whileawake (RT) levothyroxine (SYNTHROID) tablet 25 mcg 25 mcg oral Daily - 0600 midodrine (PROAMATINE) tablet 10 mg 10 mg oral TID AC pantoprazole DR (PROTONIX) extended release tablet 40 mg 40 mg oral Daily senna-docusate (PERICOLACE) 8.6-50 mg per tablet 1 tablet 1 tablet oral BID tamsulosin (FLOMAX) extended release capsule 0.4 mg 0.4 mg oral Daily with dinner tolvaptan (SAMSCA) split tablet 15 mg 15 mg oral Q24H warfarin (COUMADIN) tablet 5 mg 5 mg oral Once - 1800 Continuous Medications Medication Dose Last Rate PRN Medications Medication Dose Route Frequency Last Admin acetaminophen (TYLENOL) tablet 500 mg 500 mg oral Q6H PRN 500 mg at 10/27/242019 clorazepate (TRANXENE) tablet 7.5 mg 7.5 mg oral BID PRN 7.5 mg at 10/30/242000 fluticasone propionate (FLONASE) 50 mcg/actuation nasal spray 2 spray 2 spray each nostril Daily PRN ondansetron (ZOFRAN) injection 4 mg 4 mg intravenous Q6H PRN ramelteon (ROZEREM) tablet 8 mg 8 mg oral Nightly PRN 8 mg at 10/30/241999 Recent Labs Lab Units 10/31/24 0006 10/30/24 1603 10/30/24 0725 10/29/24 0345 10/28/24 0413 SODIUM mmol/L 123* 121* 121* < > 127* POTASSIUM PLASMA mmol/L 3.7 4.0 3.6 < > 3.9 CHLORIDE mmol/L 89* 85* 84* < > 88* CO2 mmol/L 30 26 28 < > 37* ANIONGAP mmol/L 4 10 9 < > 2 GLUCOSE mg/dL 106 110 104 < > 92 BUN SERUM mg/dL 32* 30* 28* < > 37* CREATININE mg/dL 1.26 1.19 1.17 < > 1.36* CALCIUM mg/dL 7.6* 7.8* 7.8* < > 8.4* MAGNESIUM mg/dL -- -- -- -- 1.8 < > = values in this interval not displayed. Recent Labs Lab Units 10/31/24 0006 10/30/24 0026 10/29/24 0345 WBC K/cumm 3.03* 3.82 3.30* HEMOGLOBIN g/dL 11.3* 12.2* 11.9* HEMATOCRIT % 33.1* 35.6* 35.3* PLATELETS K/cumm 124* 122* 120* Recent Labs Lab Units 10/31/24 0006 10/30/246 10/29/24 0345 PROTIME (PT) sec 18.9* 18.9* 17.0* INR 1.73* 1.73* 1.56* Intake/Output Summary (Last 24 hours) at 10/31/2024 0818 Last data filed at 10/31/2024 0550 Gross per 24 hour Intake 1212 ml Output 5775 ml Net -4563 ml Wt Readings from Last 3 Encounters: 10/26/24 78.2 kg (172 lb 6.4 oz) 02/23/23 88.5 kg (195 lb) Patient Vitals for the past 24 hrs: BP Temp Temp src Pulse Resp SpO2 10/31/24 0753 107/64 36.3 ??C (97.3 ??F) Oral 79 19 93 % 10/31/24 0354 103/64 36.5 ??C (97.7 ??F) Oral 80 18 90 % 10/31/24 0004 93/62 37 ??C (98.6 ??F) Oral 80 16 92 % 10/30/241999 -- -- -- 80 -- -- 10/30/241954 95/69 36.3 ??C (97.3 ??F) Oral 80 -- 96 % 10/30/241924 -- -- -- -- -- 95 % 10/30/241849 -- -- -- -- -- (!) 83 % 10/30/24 1552 106/69 36.3 ??C (97.3 ??F) -- 80 18 90 % 10/30/24 1545 -- -- -- -- -- 90 % 10/30/24 1500 -- -- -- 81 -- 92 % 10/30/24 1445 -- -- -- 80 20 96 % 10/30/24 1254 -- -- -- 80 -- -- 10/30/24 0853 -- -- -- 80 20 91 % 10/30/24 0850 -- -- -- -- -- 91 % 10/30/24 0844 -- -- -- 80 -- -- 10/30/24 0841 -- -- -- 80 22 (!) 88 % 10/30/24 0840 -- -- -- -- -- (!) 88 % Exam: General: In no apparent distress Neuro: Alert and oriented x 3, moves all extremities well HEENT: Normocephalic, atraumatic Lungs: Symmetric, unlabored, clear to auscultation bilaterally Heart: S1,S2, regular rate & rhythm, no murmurs, rubs, or gallops Abdomen: Soft, non-tender Extremities: BLE edema ASSESSMENT/PLAN: Acute hypoxemic respiratory failure Likely 2/2 CHF exacerbation/pneumonia -Continues on oxygen supplementation -IV antibiotics -Pulmonary following Acute on chronic systolic HF -proBNP 8,636 on admission, 3978 -->4761 -Pleural effusion on the CT -Diuretic management per nephrology. Monitor renal function and lytes,I/o's -Continue atenolol Ischemic cardiomyopathy -S/p BIV ICD implantation History of V-tach Atrial fibrillation -S/p ablation; paced rhythm on EKG -Continue Tikosyn and atenolol -Warfarin dosing per pharmacy -Keep K>/4,mag>/2 CAD -S/p CABG -stable with no angina -Continue ASA, statins Hypertension -Bp stable/controlled Hyperlipidemia -Continue statin Hypothyroidism -Continue levothyroxine CKD -Creatinine 1.26 this am -Nephrology is following Urinary retention -guerrero in place -urology following Patient and family would like for the patient to go to a Rehab Facility prior to discharge home. Dasha Reese, DNP, ADMINISTRATIVE COURT JUSTICE-C [facility] 10/31/2024 8:18 AM * Donte Camacho MD - 10/31/2024 8:15 AM CDT Remote non-billable note Patient and family would like for the patient to go to a Rehab Facility prior to discharge home. Urology need to make decision regarding the guerrero HEAVEN if patient is planned for the discharge * Soledad Camacho [facility] - 10/31/2024 7:22 AM CDT Pharmacokinetic Consult - Anticoagulation Dosing Ian Monsalve is a 84 y.o. male who has been consulted for pharmacy warfarin dosing and monitoring. Current Hematologic Labs INR Date Value Ref Range Status 10/31/2024 1.73 (H) 0.90 - 1.20 Final Comment: Interpretive data Oral anticoagulant therapeutic ranges: Venous thromboembolism prophylaxis or treatment: 2.0-3.0 CARDIOLOGY Standard range: 2.0-3.0 High-intensity range: 2.5-3.5 Refer to indication-specific guidelines for appropriate target ranges for prosthetic heart valve replacement. Current interpretive data was last revised on 2019. 10/30/2024 1.73 (H) 0.90 - 1.20 Final Comment: Interpretive data Oral anticoagulant therapeutic ranges: Venous thromboembolism prophylaxis or treatment: 2.0-3.0 CARDIOLOGY Standard range: 2.0-3.0 High-intensity range: 2.5-3.5 Refer to indication-specific guidelines for appropriate target ranges for prosthetic heart valve replacement. Current interpretive data was last revised on 2019. 10/29/2024 1.56 (H) 0.90 - 1.20 Final Comment: Interpretive data Oral anticoagulant therapeutic ranges: Venous thromboembolism prophylaxis or treatment: 2.0-3.0 CARDIOLOGY Standard range: 2.0-3.0 High-intensity range: 2.5-3.5 Refer to indication-specific guidelines for appropriate target ranges for prosthetic heart valve replacement. Current interpretive data was last revised on 2019. Hgb Date Value Ref Range Status 10/31/2024 11.3 (L) 13.0 - 17.5 g/dL Final Hct Date Value Ref Range Status 10/31/2024 33.1 (L) 38.9 - 50.3 % Final Plt Date Value Ref Range Status 10/31/2024 124 (L) 150 - 400 K/cumm Final No results found for: PTT Assessment Patient was admitted on warfarin with a dose of 2 mg on Thursday and 1 mg all other days (Thu to Thu). Patient is on warfarin for an indication of atrial fibrillation. Goal INR is 2-3. Potential interacting medications: unasyn (could potentially increase INR) Plan Date INR Dose given Comments 10/18 2mg Patient already took dose at home. Daily INR ordered 10/19 3.14 1mg Slightly above goal will give home dose today and may need to decrease for further doses 10/20 3.12 1mg 10/21 2.34 1mg 10/22 2.56 1mg 10/23-10/24 on hold 10/25 1.65 2 mg Resume home dose 10/26 1.55 2 mg 10/27 1.49 2 mg / 1.54 2 mg 10/29 1.56 4 mg 10/30 1.73 3 mg 10/31 1.73 5 mg Still not at goal will increase to 5 mg today Will continue to follow patient's clinical progress daily. Soledad Camacho PharmD, BCPS * Jarret Suggs MD - 10/30/2024 1:36 PM CDT Images from the original note were not included. Pulmonary Daily Progress Chief complaint/reason for consult: New O2 requirement, Pulmonary nodules, pulmonary hypertension . Interval History: Afebrile On 4 LPM NC sat of 91% Not much cough Noted slight improvement in serum Na Presenting History: 84 y/o CM who presented to the ED on 10/18/24 with complaints of shortness of breath that had been worsening over the last week. He was reportedly satting 70% on room air when EMSarrived. 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 States he has been having increased BAH. Does have cough at times that is productive of clear sputum. Started smoking age 12 and quit in 1996, smoked up to 1.5 ppd for 44 years, giving a 66 pack year hx. He has been on amiodarone in the past but not for sometime. 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 No service. CT Chest 10/18/24: Very severe emphysematous changes, moderate right pleural effusion, lung nodules Carries a hx of atrial fibrillation s/p multiple ablations, HFrEF, ischemic cardiomyopathy s/p BiVICD, CKD, CAD s/p CABG, Allergies: Allergies Allergen Reactions Trazodone Hcl Unknown Morphine Hydrocodone Unknown Lunesta [Eszopiclone] Other (See comments) Gave him crazy dreams Tramadol Nausea only Vicodin [Hydrocodone-Acetaminophen] Nausea only Medications: Scheduled Meds:ampicillin-sulbactam, 3 g, intravenous, Q6H THERESA [Held by Provider] aspirin, 81 mg, oral, Daily atenoloL, 50 mg, oral, Daily atorvastatin, 20 mg, oral, Nightly calcitRIOL, 0.25 mcg, oral, Daily dofetilide, 125 mcg, oral, BID fenofibrate nanocrystallized, 145 mg, oral, Daily ipratropium-albuteroL, 3 mL, nebulization, Q6H While awake (RT) levothyroxine, 25 mcg, oral, Daily - 0600 midodrine, 10 mg, oral, TID AC pantoprazole DR, 40 mg, oral, Daily senna-docusate, 1 tablet, oral, BID tamsulosin, 0.4 mg, oral, Daily with dinner warfarin, 3 mg, oral, Once - 1800 Continuous Infusions: PRN Meds:. acetaminophen clorazepate fluticasone propionate ondansetron ramelteon ROS Above review of system reviewed on 10/30/2024 Vitals: Vitals: 10/30/24 0844 10/30/24 0850 10/30/24 0853 10/30/24 1254 BP: BP Location: Patient Position: Pulse: 80 80 80 Resp: 20 Temp: TempSrc: SpO2: 91% 91% Weight: Height: Temp (24hrs), Av.4 ??C (97.6 ??F), Min:36.2 ??C (97.2 ??F), Max:36.7 ??C (98.1 ??F) Intake/Output Summary (Last 24 hours) at 10/30/2024 1336 Last data filed at 10/30/2024 1215 Gross per 24 hour Intake 2742 ml Output 5350 ml Net -2608 ml Physical Exam Vitals and nursing note reviewed. Constitutional: General: He is not in acute distress. Appearance: He is well-developed. HENT: Head: Normocephalic and atraumatic. Comments: Hard of hearing Nose: Nose normal. Mouth/Throat: Mouth: Mucous membranes are moist. Eyes: Conjunctiva/sclera: Conjunctivae normal. Cardiovascular: Rate and Rhythm: Normal rate and regular rhythm. Heart sounds: No murmur heard. Pulmonary: Effort: Pulmonary effort is normal. No respiratory distress. Breath sounds: No stridor. Decreased breath sounds present. No wheezing, rhonchi or rales. Abdominal: General: Bowel sounds are normal. Palpations: Abdomen is soft. Skin: General: Skin is warm and dry. Neurological: General: No focal deficit present. Mental Status: He is alert. Psychiatric: Mood and Affect: Mood normal. Behavior: Behavior normal. Lab/Radiology/Diagnostic Review: Labs: Recent Labs Lab Units 10/30/24 0026 10/29/24 0345 10/28/24 0413 WBC K/cumm 3.82 3.30* 3.28* HEMOGLOBIN g/dL 12.2* 11.9* 12.2* HEMATOCRIT % 35.6* 35.3* 36.0* PLATELETS K/cumm 122* 120* 115* NEUTROS PCT % 69.1 66.4 68.6 LYMPHS PCT % 14.7 17.0 16.5 MONOS PCT % 12.8 12.4 11.9 EOS PCT % 2.1 2.7 2.4 Recent Labs Lab Units 10/30/24 0725 10/30/24 0026 10/29/24 2115 SODIUM mmol/L 121* 119* 118* POTASSIUM PLASMA mmol/L 3.6 3.8 4.0 CHLORIDE mmol/L 84* 83* 82* CO2 mmol/L 28 29 27 ANIONGAP mmol/L 9 7 9 GLUCOSE mg/dL 104 117 128 BUN SERUM mg/dL 28* 32* 31* CREATININE mg/dL 1.17 1.25 1.26 CALCIUM mg/dL 7.8* 7.8* 7.9* Imaging: CT abd 10/21/24: similar b effusions, R>L w RLL consolidation CT chest 10/18/24 CXR 10/23/24: RLL inf, no visible large effusion CXR 10/18/24 10/24/24 10/27/24 improved infiltr and effus: Other diagnostic tests: Echo 10/20/24: EF 37%, LVDD, RV volume overload, RVSP 60 I have personally reviewed above laboratory findings, chest imaging, and diagnostic tests 10/30/2024 Antibiotic therapy with Unasyn started 10/19/24 DAY 12 Assessment and Plan: Acute hypoxic respiratory insufficiency Severe emphysema RLL cavitary lesion: pneumonia vs malignancy vs bullous disease B effusions, R>L, likely due to CHF, parapneumonic also possible Afib CHF CKD CAD w hx CABG hyponatremia Recs: - Wean supplemental O2 for SpO2 88-92% - Nebs TID - Unasyn day 12, completed azithromycin. Given cavitary lesion would continue augmentin at discharge for total treatment period of 3-4 weeks. - Will need repeat CT chest imaging in 4-6 weeks - nephrology following - O2 assessment prior to d/c * Dasha Reese NP - 10/30/2024 11:54 AM CDT Cardiology Daily Progress - [facility] SUBJECTIVE: Mr. Monsalve is sitting up in a chair. No chest pain, or shortness of breath. Continues to have a foleycatheter and is till on O2 1L per NC Review of Systems: Review of systems per HPI and otherwise all other systems are negative OBJECTIVE: Scheduled Medications Medication Dose Route Frequency ampicillin-sulbactam (UNASYN) 3 g in sodium chloride 0.9% 100 mL IVPB 3 g intravenous Q6H THERESA [Held by Provider] aspirin enteric coated tablet 81 mg 81 mg oral Daily atenoloL (TENORMIN) tablet 50 mg 50 mg oral Daily atorvastatin (LIPITOR) tablet 20 mg 20 mg oral Nightly calcitRIOL (ROCALTROL) capsule 0.25 mcg 0.25 mcg oral Daily dofetilide (TIKOSYN) capsule 125 mcg 125 mcg oral BID fenofibrate nanocrystallized (TRICOR) tablet 145 mg 145 mg oral Daily ipratropium-albuteroL (DUO-NEB) 0.5-2.5 mg/3 mL nebulizer solution 3 mL 3 mL nebulization Q6H Whileawake (RT) levothyroxine (SYNTHROID) tablet 25 mcg 25 mcg oral Daily - 0600 midodrine (PROAMATINE) tablet 10 mg 10 mg oral TID AC pantoprazole DR (PROTONIX) extended release tablet 40 mg 40 mg oral Daily senna-docusate (PERICOLACE) 8.6-50 mg per tablet 1 tablet 1 tablet oral BID tamsulosin (FLOMAX) extended release capsule 0.4 mg 0.4 mg oral Daily with dinner warfarin (COUMADIN) tablet 3 mg 3 mg oral Once - 1800 Continuous Medications Medication Dose Last Rate PRN Medications Medication Dose Route Frequency Last Admin acetaminophen (TYLENOL) tablet 500 mg 500 mg oral Q6H PRN 500 mg at 10/27/242019 clorazepate (TRANXENE) tablet 7.5 mg 7.5 mg oral BID PRN 7.5 mg at 10/29/242018 fluticasone propionate (FLONASE) 50 mcg/actuation nasal spray 2 spray 2 spray each nostril Daily PRN ondansetron (ZOFRAN) injection 4 mg 4 mg intravenous Q6H PRN ramelteon (ROZEREM) tablet 8 mg 8 mg oral Nightly PRN 8 mg at 10/29/242019 Recent Labs Lab Units 10/30/24 0725 10/30/24 0026 10/29/24 2115 10/29/24 0345 10/28/24 0413 SODIUM mmol/L 121* 119* 118* < > 127* POTASSIUM PLASMA mmol/L 3.6 3.8 4.0 < > 3.9 CHLORIDE mmol/L 84* 83* 82* < > 88* CO2 mmol/L 28 29 27 < > 37* ANIONGAP mmol/L 9 7 9 < > 2 GLUCOSE mg/dL 104 117 128 < > 92 BUN SERUM mg/dL 28* 32* 31* < > 37* CREATININE mg/dL 1.17 1.25 1.26 < > 1.36* CALCIUM mg/dL 7.8* 7.8* 7.9* < > 8.4* MAGNESIUM mg/dL -- -- -- -- 1.8 < > = values in this interval not displayed. Recent Labs Lab Units 10/30/242510/29/2434410/28/24412 WBC K/cumm 3.82 3.30* 3.28* HEMOGLOBIN g/dL 12.2* 11.9* 12.2* HEMATOCRIT % 35.6* 35.3* 36.0* PLATELETS K/cumm 122* 120* 115* Recent Labs Lab Units 10/30/242510/29/2434410/28/24412 PROTIME (PT) sec 18.9* 17.0* 16.8* INR 1.73* 1.56* 1.54* Intake/Output Summary (Last 24 hours) at 10/30/2024 1155 Last data filed at 10/30/2024 0830 Gross per 24 hour Intake 2742 ml Output 4800 ml Net -2058 ml Wt Readings from Last 3 Encounters: 10/26/24 78.2 kg (172 lb 6.4 oz) 02/23/23 88.5 kg (195 lb) Patient Vitals for the past 24 hrs: BP Temp Temp src Pulse Resp SpO2 10/30/24 0853 -- -- -- 80 20 91 % 10/30/24 0850 -- -- -- -- -- 91 % 10/30/24 0844 -- -- -- 80 -- -- 10/30/24 0841 -- -- -- 80 22 (!) 88 % 10/30/24 0840 -- -- -- -- -- (!) 88 % 10/30/24 0750 115/70 36.4 ??C (97.5 ??F) -- 81 18 93 % 10/30/24 0403 107/57 36.7 ??C (98.1 ??F) Oral 79 18 91 % 10/30/24 0004 97/58 36.5 ??C (97.7 ??F) Oral 80 18 93 % 10/29/242009 111/67 36.2 ??C (97.2 ??F) Oral 80 20 91 % 10/29/24 1713 -- -- -- 81 18 -- 10/29/24 1706 -- -- -- 79 18 92 % 10/29/24 1600 -- -- -- 82 -- -- 10/29/24 1556 113/68 36.3 ??C (97.3 ??F) Oral 80 -- -- 10/29/24 1555 -- -- -- -- 18 -- 10/29/24 1359 -- -- -- 79 20 90 % 10/29/24 1200 -- -- -- 81 -- -- Exam: General: In no apparent distress Neuro: Alert and oriented x 3, moves all extremities well HEENT: Normocephalic, atraumatic Lungs: Symmetric, unlabored, clear to auscultation bilaterally Heart: S1,S2, regular rate & rhythm, no murmurs, rubs, or gallops Abdomen: Soft, non-tender Extremities: No LE edema ASSESSMENT/PLAN: Acute hypoxemic respiratory failure Likely 2/2 CHF exacerbation/pneumonia -Currently on oxygen 1 L NC -Continue O2. Wean as tolerated -IV antibiotics -Pulmonary following Acute on chronic systolic HF -proBNP 8,636 on admission, 3978 this am -Pleural effusion on the CT -Diuretic management per nephrology. Monitor renal function and lytes,I/o's -Continue atenolol Ischemic cardiomyopathy -S/p BIV ICD implantation History of V-tach Atrial fibrillation -S/p ablation; paced rhythm on EKG -Continue Tikosyn and atenolol -Warfarin dosing per pharmacy -Keep K>/4,mag>/2 CAD -S/p CABG -stable with no angina -Continue ASA, statins Hypertension -Bp stable/controlled Hyperlipidemia -Continue statin Hypothyroidism -Continue levothyroxine CKD -Creatinine 1.17 this am -Nephrology is following Patient and family would like for the patient to go to a Rehab Facility prior to discharge home. Dasha Reese DNP, ADMINISTRATIVE COURT JUSTICE-C [facility] 10/30/2024 11:55 AM * Delvin Mendenhall MD - 10/30/2024 10:43 AM CDT Nephrology Progress Note [facility] SUBJECTIVE 10/[address] Gillespie, a keen observer noticed pt drinking excessive free water, this is likely contributing,PO FR started. Lasix IV times 1. Tolvaptan 15 mg po times 1 tonight. Frequent BMP. UO is now appropriate. Pt agreeable to Rehab. 10/29 Na 126. Over 11 liters urine. Overall stable. Will need IVF. 10/28 Slowly improving. Bp soft. Guerrero draining clear urine. Over 7 litres of urine reported? OBJECTIVE Vitals: Vitals: 10/30/24 0841 10/30/24 0844 10/30/24 0850 10/30/24 0853 BP: BP Location: Patient Position: Pulse: 80 80 80 Resp: 22 20 Temp: TempSrc: SpO2: (!) 88% 91% 91% Weight: Height: Intake/Output Summary (Last 24 hours) at 10/30/2024 1043 Last data filed at 10/30/2024 0830 Gross per 24 hour Intake 2742 ml Output 4800 ml Net -2058 ml REVIEW OF SYSTEMS Review of Systems Constitutional: Negative. HENT: Negative. Eyes: Negative. Respiratory: Negative. Cardiovascular: Negative. Gastrointestinal: Negative. Genitourinary: Negative. Musculoskeletal: Negative. Skin: Negative. Allergic/Immunologic: Negative. Hematological: Negative. All other systems reviewed and are negative. PHYSICAL EXAM Physical Exam Constitutional: Appears well-developed. HENT: wnl Head: Normocephalic. Eyes: Pupils are equal, round, and reactive to light. Neck: Normal range of motion. Neck supple. Cardiovascular: Normal rate. Pulmonary/Chest: Effort normal and breath sounds normal. Abdominal: Soft. Musculoskeletal: Normal range of motion. Neurological: Alert, oriented. Skin: Skin is warm. Nursing note and vitals reviewed. MEDICATIONS Current Facility-Administered Medications: acetaminophen (TYLENOL) tablet 500 mg, 500 mg, oral, Q6H PRN, Luan Guillermo, , 500 mg at 10/27/242019 ampicillin-sulbactam (UNASYN) 3 g in sodium chloride 0.9% 100 mL IVPB, 3 g, intravenous, Q6H THERESA, Ryan Bailey MD, Last Rate: 220 mL/hr at 10/30/24 0507, 3 g at 10/30/24 0507 [Held by Provider] aspirin enteric coated tablet 81 mg, 81 mg, oral, Daily, Namrata Spencer, ZACHERY, 81 mg at 10/24/24 1001 atenoloL (TENORMIN) tablet 50 mg, 50 mg, oral, Daily, Namrata Spencer, LAUNDRY MACHINE TENDER, 50 mg at 10/30/24 0840 atorvastatin (LIPITOR) tablet 20 mg, 20 mg, oral, Nightly, Namrata Spencer NP, 20 mg at 10/29/24 2019 calcitRIOL (ROCALTROL) capsule 0.25 mcg, 0.25 mcg, oral, Daily, Namrata Spencer, ZACHERY, 0.25mcg at 10/30/24 0837 clorazepate (TRANXENE) tablet 7.5 mg, 7.5 mg, oral, BID PRN, Luan Guillermo, , 7.5 mg at 10/29/24 2019 dofetilide (TIKOSYN) capsule 125 mcg, 125 mcg, oral, BID, Namrata Spencer NP, 125 mcg at10/30/24 0836 fenofibrate nanocrystallized (TRICOR) tablet 145 mg, 145 mg, oral, Daily, Namrata Spencer NP, 145 mg at 10/30/24 0837 fluticasone propionate (FLONASE) 50 mcg/actuation nasal spray 2 spray, 2 spray, each nostril, DailyPRN, Namrata Spencer NP ipratropium-albuteroL (DUO-NEB) 0.5-2.5 mg/3 mL nebulizer solution 3 mL, 3 mL, nebulization, Q6H While awake (RT), Ryan Bailey MD levothyroxine (SYNTHROID) tablet 25 mcg, 25 mcg, oral, Daily - 0600, Namrata Spencer NP,25 mcg at 10/30/24 0508 midodrine (PROAMATINE) tablet 10 mg, 10 mg, oral, TID AC, Delvin Mendenhall MD, 10 mg at 10/30/24 0837 ondansetron (ZOFRAN) injection 4 mg, 4 mg, intravenous, Q6H PRN, Namrata Spencer NP pantoprazole DR (PROTONIX) extended release tablet 40 mg, 40 mg, oral, Daily, Carla Jean MD,40 mg at 10/30/24 0837 ramelteon (ROZEREM) tablet 8 mg, 8 mg, oral, Nightly PRN, Namrata Spencer NP, 8 mg at 10/29/24 2020 senna-docusate (PERICOLACE) 8.6-50 mg per tablet 1 tablet, 1 tablet, oral, BID, Luan Guillermo DO, 1 tablet at 10/28/24 0906 sodium chloride 0.9% infusion, 75 mL/hr, intravenous, Continuous, Delvin Mendenhall MD, Last Rate: 75 mL/hr at 10/30/24 1033, 75 mL/hr at 10/30/24 1033 tamsulosin (FLOMAX) extended release capsule 0.4 mg, 0.4 mg, oral, Daily with dinner, Luan Guillermo DO, 0.4 mg at 10/29/24 1723 warfarin (COUMADIN) tablet 3 mg, 3 mg, oral, Once - 1800, Ryan Bailey MD Lab/Radiology/Diagnostic Review: Recent Results (from the past 24 hours) Basic metabolic panel Collection Time: 10/29/24 9:15 PM Result Value Ref Range Sodium 118 (Critical) 135 - 145 mmol/L Potassium, pl 4.0 3.3 - 4.9 mmol/L Chloride 82 (L) 97 - 110 mmol/L CO2 27 22 - 32 mmol/L Anion gap 9 2 - 15 mmol/L BUN 31 (H) 6 - 25 mg/dL Creatinine 1.26 0.80 - 1.30 mg/dL Glucose 128 70 - 199 mg/dL Calcium 7.9 (L) 8.5 - 10.3 mg/dL eGFR Collection Time: 10/29/24 9:15 PM Result Value Ref Range eGFR 56 (L) >=60 mL/min/1.73 m2 CBC with auto differential Collection Time: 10/30/24 12:26 AM Result Value Ref Range WBC 3.82 3.80 - 9.90 K/cumm Hgb 12.2 (L) 13.0 - 17.5 g/dL Hct 35.6 (L) 38.9 - 50.3 % Plt 122 (L) 150 - 400 K/cumm MPV 11.9 9.1 - 12.3 fL RBC 3.89 (L) 4.30 - 5.80 M/cumm MCV 91.5 81.3 - 96.4 fL MCH 31.4 27.1 - 33.3 pg MCHC 34.3 32.3 - 35.7 g/dL RDW CV 15.2 (H) 11.1 - 14.9 % RDW SD 51.4 (H) 35.7 - 48.1 fL NRBC abs 0.00 0.00 - 0.01 K/cumm Protime-INR Collection Time: 10/30/24 12:26 AM Result Value Ref Range PT 18.9 (H) 9.7 - 13.0 sec INR 1.73 (H) 0.90 - 1.20 Basic metabolic panel Collection Time: 10/30/24 12:26 AM Result Value Ref Range Sodium 119 (Critical) 135 - 145 mmol/L Potassium, pl 3.8 3.3 - 4.9 mmol/L Chloride 83 (L) 97 - 110 mmol/L CO2 29 22 - 32 mmol/L Anion gap 7 2 - 15 mmol/L BUN 32 (H) 6 - 25 mg/dL Creatinine 1.25 0.80 - 1.30 mg/dL Glucose 117 70 - 199 mg/dL Calcium 7.8 (L) 8.5 - 10.3 mg/dL Differential, auto Collection Time: 10/30/24 12:26 AM Result Value Ref Range Neutrophil abs 2.64 1.50 - 6.50 K/cumm Imm gran abs 0.04 0.00 - 0.10 K/cumm Lymphocyte abs 0.56 (L) 0.80 - 3.30 K/cumm Monocyte abs 0.49 0.20 - 0.80 K/cumm Eosinophil abs 0.08 0.00 - 0.50 K/cumm Basophil abs 0.01 0.00 - 0.10 K/cumm Neutrophil pct 69.1 % Imm gran pct 1.0 % Lymphocyte pct 14.7 % Monocyte pct 12.8 % Eosinophil pct 2.1 % Basophil pct 0.3 % eGFR Collection Time: 10/30/24 12:26 AM Result Value Ref Range eGFR 57 (L) >=60 mL/min/1.73 m2 Basic metabolic panel Collection Time: 10/30/24 7:25 AM Result Value Ref Range Sodium 121 (Critical) 135 - 145 mmol/L Potassium, pl 3.6 3.3 - 4.9 mmol/L Chloride 84 (L) 97 - 110 mmol/L CO2 28 22 - 32 mmol/L Anion gap 9 2 - 15 mmol/L BUN 28 (H) 6 - 25 mg/dL Creatinine 1.17 0.80 - 1.30 mg/dL Glucose 104 70 - 199 mg/dL Calcium 7.8 (L) 8.5 - 10.3 mg/dL eGFR Collection Time: 10/30/24 7:25 AM Result Value Ref Range eGFR 61 >=60 mL/min/1.73 m2 XR Chest 1 View Result Date: 10/27/2024 Narrative: EXAMINATION: XR CHEST 1 VIEW HISTORY: The patient is an 84-year-old male who presents with shortness of breath. Comparison made with the previous study dated 10/26/2024. TECHNIQUE: AP portable view of the chest. FINDINGS: Cardiomegaly with aortic atherosclerosis. Findings of pulmonary vascular congestion. No focal consolidation. Impression: Cardiomegaly with pulmonary vascular congestion. Electronically signed by: Coco Youngblood M.D. XR Chest 1 View Result Date: 10/26/2024 Narrative: EXAMINATION: XR CHEST 1 VIEW HISTORY: The patient is a 84-year-old male who presents with shortness of breath. Comparison made with the previous study dated 10/24/2024. TECHNIQUE: AP portable view of the chest. FINDINGS: Cardiomegaly with aortic atherosclerosis. Findings of pulmonary vascular congestion. No focal infiltrate seen. Impression: Cardiomegaly with pulmonary vascular congestion. Electronically signed by: Coco Youngblood M.D. XR Chest 1 Vw Portable Result Date: 10/24/2024 Narrative: EXAMINATION: XR CHEST 1 VIEW HISTORY: The patient is an 84-year-old male who presents with hypoxia. Comparison made with the previous study dated 10/23/2024. TECHNIQUE: AP portable view ofthe chest. FINDINGS: Cardiomegaly with aortic atherosclerosis. Findings of pulmonary vascular congestion. Right lower lobe infiltrate with the remainder of the lungs being clear. Impression: Findings as described above. Electronically signed by: Coco Youngblood M.D. XR Chest 1 Vw Portable Result Date: 10/23/2024 Narrative: Examination: XR CHEST 1 VIEW Date: 10/23/2024 7:20 AM History: effusion Comparison: 10/18/2024. Findings: Normal heart size, sternotomy and left AICD is again seen. A small right effusion andmoderate right lower lobe infiltrate with patchy consolidation is unchanged. Impression: Persistent right effusion with patchy right lower lobe consolidation. Electronically signed by: Perla Cowart M.D. CT Abdomen Pelvis WO Contrast Result Date: 10/21/2024 Narrative: EXAMINATION: CT ABDOMEN PELVIS WO CONTRAST DATE: 10/21/2024 5:35 AM HISTORY: Weight loss,unintended TECHNIQUE: Images through the abdomen and pelvis were obtained without contrast. FINDINGS: There are bilateral pleural effusions. There is bilateral lower lobe atelectasis. 26 mm left hepatic cyst is present. The patient is status post cholecystectomy. There is no biliary ductal dilatatio n. The spleen, pancreas and adrenal glands are grossly normal on this noncontrast examination. There is mild bilateral perinephric stranding. There is no hydronephrosis, hydroureter or renal calculus. There are several small exophytic left renal lesions which cannot be further characterized on this noncontrast examination. There is no free air or fluid. There is no bowel obstruction. The appendixis not identified with confidence. There are multiple colonic diverticula. There is a 43 mm infrarenal abdominal aortic aneurysm. There are postoperative changes of the aortobiiliac bypass. Radiationtherapy changes are noted in the prostate. Impression: Limited study secondary to lack of intravenous contrast. No acute intra-abdominal abnormality. Colonic diverticulosis. Bilateral pleural effusions and bilateral lower lobe atelectasis. 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 Electronically signed by: Neel Morrison M.D. Transthoracic Echo (TTE) Complete W Doppler/CF Result Date: 10/21/2024 Narrative: [place] [address] Echocardiogram Report Patient Name: IAN MONSALVE H : 1940 Study Date: 10/20/2024 12:11:53 PM Gender: M Tech: Location: [address] Provider: CARLA JEAN Height(Cm): 170 BSA: 1.93 Weight(Kg): 79 Heart Rate: 80 BP: 90 / 55 Quality: Good Order Provider: CARLA JEAN PROCEDURES: Echocardiographic Report: Transthoracic echocardiogram with complete 2D, M-Mode, color Doppler examination and contrast. INDICATIONS: Congestive Heart Failure. MEASUREMENTS: 2D/MM Value R jacobo Doppler Value Range EF Mod BP 37 % [ 52 - 72 ] NIR Vmax 1.83 cm2 LVIDd 2D 4.85 cm [ 4.20 - 5.80 ] AV Mean PG 3 mmHg LVIDs 2D 4.09 cm [ 2.50 - 4.00 ] AV Peak Abilio 1.17 m/s [ 1.00 - 1.70 ] LVPWd 2D1.45 cm [ 0.60 - 1.00 ] AV [...] 6.43 cm2 MV Decel Time 118 msec [104 - 258 ] PV Peak Abilio 0.86 [...] aortic root. IVC: The IVC is not wellvisualized. CONCLUSIONS: Echo contrast was used. Left ventricle cavity is within upper limits of normal. Moderate concentric left ventricular hypertrophy. Moderate global leftventricular systolic dysfunction. Diastolic dysfunction is present. Increased [...] of hemodynamically significant aortic stenosis by Doppler. [id number] pulmonary hypertension, estimated RVSP 60 mmHg. Moderate tricuspid regurgitation. Electronically Signed By: Clive Godfrey MD, [facility] 10/21/2024 6:43:00 AM CDT US Retroperitoneal Complete Result Date: 10/19/2024 Narrative: EXAMINATION: RENAL ULTRASOUND Date: 10/19/2024 2:20 PM History: Kidney failure, acute Comparison: None. Findings: The right kidney measures 10.5 x 4.7 x 4.0 cm . Parenchymal echogenicity iswithin normal limits. There is no hydronephrosis, calculus, or perinephric fluid. Possible corticalmass in the right kidney measuring 1.4 x 1.3 x 1.4 cm The left kidney measures 10.6 x 5.0 x 4.0 cm.Parenchymal echogenicity is within normal limits. There is no hydronephrosis, calculus or perinephric fluid. Simple cysts measuring up to 1.9 cm in the left kidney. The bladder Is unremarkable. Prostate is enlarged measuring 4.2 x 4.6 x 5.3 cm Impression: 1. Possible mass in the right kidney measuring up to 1.4 cm. Suggest MRI of the kidneysfor further evaluation. 2. Enlarged prostate. Electronically signed by: Rajendra Oh II, D.O. CT Chest WO Contrast Result Date: 10/18/2024 Narrative: EXAMINATION: Computed tomography of the chest without intravenous contrast HISTORY: Abnormal chest radiograph. TECHNIQUE: Transaxial computed tomographic images of the chest were obtained without intravenous contrast according to the standard protocol. COMPARISON: Chest radiograph dated same day. FINDINGS: There is a moderately sized right pleural effusion with fluid in the right majorfissure and right upper, middle, and lower lobe consolidations most notable in the right lower lobe. Small left pleural effusion with left lower lobe atelectasis. Severe centrilobular emphysematous changes. Poststernotomy changes. Mild mediastinal lymphadenopathy with largest mediastinal node measur ing 1.1 cm in short axis dimension. Nodules in the left upper lobe, largest measuring approximately1.1 x 0.5 cm. Follow-up suggested. Main pulmonary [...] may represent pseudo-thickening from underdistention versus gastritis. Impression: 1. Moderately sized right pleural effusion with [...] Electronically signed by: Rajendra Oh II, D.O. ECG 12 lead Result Date: 10/18/2024 Narrative: Vent Rate: 80 bpm RR Interval: 749 msec RI Interval: 140 msec QRS Duration: 164 msec QT Interval: 377 msec QTC Interval: 412 msec P-R-T [place]: -52 - 226 - 226 degrees IMPRESSION: ELECTRONICVENTRICULAR PACEMAKER ST DEPRESSION, CONSIDER SUBENDOCARDIAL INJURY [0.1+ mV ST DEPRESSION] ABNORMAL ECG No change compared to prior EKG Electronically Signed By: Emilio SAINZ XR Chest 1 Vw Portable Result Date: 10/18/2024 Narrative: EXAMINATION: XR CHEST 1 VIEW DATE: 10/18/2024 11:20 AM INDICATION: Shortness of breath. COMPARISON: 02/23/2023. Impression: ICD leads are intact. Post sternotomy changes are noted. Cardiac mediastinal silhouettewithin normal limits. There is a small right pleural effusion. Opacities in the right lower lobe suggestive of pneumonia, increased from prior. Follow-up suggested to ensure resolution. No acute osseous abnormality. Electronically signed by: Rajendra Oh II, D.O. ASSESSMENT/PLAN CKD 3b CRS. CHF/dyspnea. R LL PNA. MBD. ICD status. RECOMMENDATIONS IV diuresis. CKD washburn. Overall improved. -10/20, BP low, start midodrine, IV ABX, decrease diuresis, CT scan kidneys. -10/21, urinary retention, ROSA worse, guerrero placed, will follow, CT scan to be reviewed. -10/22, CT scan kidneys shows exophytic cysts, will do MRI as o/p, continue guerrero, ROSA better, good UO, no new changes, difficult guerrero yesterday. -Cr 1.7 and baseline, dyspnea better, gross hematuria, difficult guerrero, traumatic hematuria, Needs CBI, will reconsult Urology. -cr is baseline, guerrero irrigation, likely needs thoracentesis, for both diagnostic and therapeutic purposes, avss, lytes stable. -CR is stable, cxr better, can switch to po diuretics tomorrow. -stable labs, BP soft, OT/PT, CMR eval, same tx, hold diuresis, po midodrine, continue guerrero, will retain on IP dc. Renal mass will be evaluated as o/p. -Start normotonic IVF, tolvaptan will not work in most cases with met alkalosis, he has some edema but that seems like third spacing, long d/w family, they want SNF and can't take care of him at home. -Critical hyponattremia possibly from excessive PO free water intake, Lasix iv times 1, tolvaptan 15 mg daily for 2 days, Rehab eval, d/w family and Dr Gillespie via text. I can be reached at [phone] with any concerns. Thank you Ryan Bailey MD for the consult. Delvin Mendenhall MD [employer] [phone] * Ryan Bailey MD - 10/30/2024 10:12 AM CDT General Medicine Daily Progress Patient is a 84 y.o. male who presented with a chief complaint of shortness of breath. Arrival Vitals Temp 10/18/24 1052 36.4 ??C (97.6 ??F) Pulse 10/18/24 1030 80 Resp 10/18/24 1040 24 BP 10/18/24 1030 121/81 SpO2 10/18/24 1030 99 % Temp src 10/18/24 1052 Axillary Heart Rate Source 10/20/24 2103 Monitor Patient Position 10/18/24 1631 Lying BP Location 10/18/24 1631 Right arm FiO2 (%) 10/20/24 1423 40 % Length of stay: 12 days Hospital Course : Interval History: Having intermittent episodes of hematuria Patient seen with and several family members at bedside states that they have now decided that he should go to SNF at [place] Subjective: States he feels ???fine?? . Admits to drinking water heavily. 4 L already this morning Objective: Vitals: 24hr Min/Max: Temp Min: 36.2 ??C (97.2 ??F) Max: 36.7 ??C (98.1 ??F) Pulse Min: 79 Max: 82 BP Min: 97/58 Max: 115/70 Resp Min: 18 Max: 22 SpO2 Min: 88 % Max: 94 % Most Recent : Vitals: 10/30/24 0841 10/30/24 0844 10/30/24 0850 10/30/24 0853 BP: BP Location: Patient Position: Pulse: 80 80 80 Resp: 22 20 Temp: TempSrc: SpO2: (!) 88% 91% 91% Weight: Height: I/O last 2 completed shifts: In: 2742 [P.O.:200; I.V.:1772; IV Piggyback:770] Out: 4200 [Urine:4200] I/O this shift: In: - Out: 600 [Urine:600] Physical Exam: Gen: In no apparent distress Neuro: Alert, oriented in time place and person. Pulmonary: Not dyspneic. No crackles or rhonchi. Cardiovascular: HS 1, 2 . regular rhythm. No murmurs heard. Moderate pitting lower extremity edema. Current Meds: ampicillin-sulbactam, 3 g, intravenous, Q6H THERESA [Held by Provider] aspirin, 81 mg, oral, Daily atenoloL, 50 mg, oral, Daily atorvastatin, 20 mg, oral, Nightly calcitRIOL, 0.25 mcg, oral, Daily dofetilide, 125 mcg, oral, BID fenofibrate nanocrystallized, 145 mg, oral, Daily ipratropium-albuteroL, 3 mL, nebulization, Q6H While awake (RT) levothyroxine, 25 mcg, oral, Daily - 0600 midodrine, 10 mg, oral, TID AC pantoprazole DR, 40 mg, oral, Daily senna-docusate, 1 tablet, oral, BID tamsulosin, 0.4 mg, oral, Daily with dinner warfarin, 3 mg, oral, Once - 1800 Continuous Medications Medication Dose Last Rate sodium chloride 0.9% infusion 75 mL/hr 75 mL/hr (10/29/242021) PRN Medications Medication Dose Route Frequency Last Admin acetaminophen (TYLENOL) tablet 500 mg 500 mg oral Q6H PRN 500 mg at 10/27/242019 clorazepate (TRANXENE) tablet 7.5 mg 7.5 mg oral BID PRN 7.5 mg at 10/29/242018 fluticasone propionate (FLONASE) 50 mcg/actuation nasal spray 2 spray 2 spray each nostril Daily PRN ondansetron (ZOFRAN) injection 4 mg 4 mg intravenous Q6H PRN ramelteon (ROZEREM) tablet 8 mg 8 mg oral Nightly PRN 8 mg at 10/29/242019 [] I have utilized all available immediate resources to obtain, update, or review the patient's current medications (including all prescriptions, yayg-ldx-bnbexiq products, herbals, cannabis/cannabidiol products, and vitamin/mineral/dietary (nutritional) supplements). Lab/Radiology/Diagnostic Review: Recent Labs Lab Units 10/30/24 0026 10/29/2434410/28/24 0413 WBC K/cumm 3.82 3.30* 3.28* HEMOGLOBIN g/dL 12.2* 11.9* 12.2* HEMATOCRIT % 35.6* 35.3* 36.0* MCV fL 91.5 93.1 91.1 PLATELETS K/cumm 122* 120* 115* Recent Labs Lab Units 10/30/24 0725 10/30/24 0026 10/29/24211410/29/2434410/28/24 0413 SODIUM mmol/L 121* 119* 118* < > 127* POTASSIUM PLASMA mmol/L 3.6 3.8 4.0 < > 3.9 CHLORIDE mmol/L 84* 83* 82* < > 88* CO2 mmol/L 28 29 27 < > 37* ANIONGAP mmol/L 9 7 9 < > 2 GLUCOSE mg/dL 104 117 128 < > 92 BUN SERUM mg/dL 28* 32* 31* < > 37* CREATININE mg/dL 1.17 1.25 1.26 < > 1.36* CALCIUM mg/dL 7.8* 7.8* 7.9* < > 8.4* MAGNESIUM mg/dL -- -- -- -- 1.8 < > = values in this interval not displayed. Recent Labs Lab Units 10/30/24 0026 10/29/24 0345 10/28/24 0413 INR 1.73* 1.56* 1.54* No results found for: BNP No results found for: TROPONINT Estimated Creatinine Clearance: 43.9 mL/min (by C-G 65 yr and older- minimum SCr 0.8 based on SCr of 1.17 mg/dL). Patient Active Problem List Diagnosis Date Noted Acute congestive heart failure, unspecified heart failure type (HCC) 10/18/2024 Palpitations 02/23/2023 All lab results stated above were reviewed by me. [] I confirmed that the patient's Advance Care Plan is present, code status is documented, or surrogate decision maker is listed in the patient's medical record. Assessment/Plan: Hyponatremia: Possibly due to primary polydipsia. Normal saline discontinued. Received IV Lasix 40 mg x 1 today. No response to tolvaptan. Monitor sodium level. Acute hypoxic respiratory failure on admission. Differential includes CHF exacerbation, pneumonia. Currently on 2L NC - titrate as able. CXR - Persistent right effusion with patchy right lower lobe consolidation. 10/24: Repeat x-ray showing pulmonary vascular congestion right lower lobe infiltrate. Home O2 evaluation completed 10/28. Patient requiring 3 L with rest, 6 L with ambulation Congestive heart failure exacerbation on admission. BNP 8636. 2D echo performed- EF 37%, Mod-Severepulmonary htn, Diastolic dysfunction present. Lasix held due to concerns for volume depletion- Cardiology service consulted. Initiate GDMT as appropriate. Moderate to severe pulmonary hypertension Moderately sized right pleural effusion with consolidations in the right upper, right lower, and right middle lobes suggestive of multifocal pneumonia, on admission CT. Respiratory PCR negative. Blood cultures NGTD. Strep pneumoniae and Legionella antigens are negative. Was on azithromycin, Rocephin starting on 10/18/2024; on 10/19/2024 Rocephin was changed to Unasyn - continue unasyn. Per pulmonology, thoracentes no longer needed at this time - coumadin resumed.repeat CXR PVC, RLL infiltrate. Will need repeat imaging in 4-6 weeks otherwise Multiple left upper lobe pulmonary nodules largest measuring 1.1 cm, on admission CT. Dilated main pulmonary artery suggestive of pulmonary arterial hypertension, on admission CT. Severe centrilobular emphysematous changes, on admission CT. Nonspecific mild gastric wall thickening may represent pseudo-thickening from underdistention versus gastritis, on admission CT. On PPI. Atrial fibrillation, currently paced. Previously on digoxin. Now On Tikosyn. Coumadin resumed. Monitor INR Hyperlipidemia: Continue atorvastatin Hypothyroidism: Synthroid. CAD. S/p coronary artery bypass graft x two - left internal mammary artery to the left anterior descending, left radial artery to the posterior descending artery, on 02/24/1997. History of VT, status post ablation on 12/31/2015, 04/08/2016 EP study. Hypotension - improved with midodrine - Try to avoid IVF in setting of volume overload. Right Kidney Mass - US retroperitoneum - Right kidney mass up to 1.4 cm - MRI recommended, patient with defibrillator - not able to obtain an MRI. Will discuss with nephrology regarding recommendations for further evaluation. Urine retention - reported abdominal pain - CT imaging performed - No acute findings noted. On review - bladder looked distended. Bladder scan done with 600 cc - straight cath done. Q6 hour bladder scans - if additional straight cath needed, recommend guerrero placement. Guerrero catheter exchanged on 10/22 due to clotting and inability to empty. Tamsulosin initiated. Urology following - recommending discharging patient with guerrero in place to allow bladder decompression. Continue Flomax and follow up as outpatient. Gross Hematuria: likely 2/2 trauma from guerrero insertion + being on blood thinners. Urology consulted. Held warfarin, now resumed. Resolved but recurrent again today. Monitor H&H. Constipation -continue laxatives. ROSA on CKD: Nephrology consulted. Renal function significantly improved. Continue to monitor. Thrombocytopenia : Stable. Monitor Nonspecific troponin elevation PT and OT as tolerated DVT prophylaxis: Coumadin GI prophylaxis: Proton Anticipated DC home with home health PT and OT 10/31 Hyponatremia. Monitor and treat underlying etiology. Thrombocytopenia. Monitor platelet count and assess for bleeding. DVT prophylaxis: given. Code status: LIMITED - No CPR Ryan Bailey MD [facility] Pager #: [phone] This note is dictated and transcribed by [employer] Direct direct software. Timber Setter variances may occur. Despite proof reading, typographical errors may occur. * Colton Pozo, [facility] - 10/30/2024 7:15 AM CDT Pharmacokinetic Consult - Anticoagulation Dosing Ian Monsalve is a 84 y.o. male who has been consulted for pharmacy warfarin dosing and monitoring. Current Hematologic Labs INR Date Value Ref Range Status 10/30/2024 1.73 (H) 0.90 - 1.20 Final Comment: Interpretive data Oral anticoagulant therapeutic ranges: Venous thromboembolism prophylaxis or treatment: 2.0-3.0 CARDIOLOGY Standard range: 2.0-3.0 High-intensity range: 2.5-3.5 Refer to indication-specific guidelines for appropriate target ranges for prosthetic heart valve replacement. Current interpretive data was last revised on 2019. 10/29/2024 1.56 (H) 0.90 - 1.20 Final Comment: Interpretive data Oral anticoagulant therapeutic ranges: Venous thromboembolism prophylaxis or treatment: 2.0-3.0 CARDIOLOGY Standard range: 2.0-3.0 High-intensity range: 2.5-3.5 Refer to indication-specific guidelines for appropriate target ranges for prosthetic heart valve replacement. Current interpretive data was last revised on 2019. 10/28/2024 1.54 (H) 0.90 - 1.20 Final Comment: Interpretive data Oral anticoagulant therapeutic ranges: Venous thromboembolism prophylaxis or treatment: 2.0-3.0 CARDIOLOGY Standard range: 2.0-3.0 High-intensity range: 2.5-3.5 Refer to indication-specific guidelines for appropriate target ranges for prosthetic heart valve replacement. Current interpretive data was last revised on 2019. Hgb Date Value Ref Range Status 10/30/2024 12.2 (L) 13.0 - 17.5 g/dL Final Hct Date Value Ref Range Status 10/30/2024 35.6 (L) 38.9 - 50.3 % Final Plt Date Value Ref Range Status 10/30/2024 122 (L) 150 - 400 K/cumm Final No results found for: PTT Assessment Patient was admitted on warfarin with a dose of 2 mg on Thursday and 1 mg all other days (Thu to Thu). Patient is on warfarin for an indication of atrial fibrillation. Goal INR is 2-3. Potential interacting medications: unasyn (could potentially increase INR) Plan Date INR Dose given Comments 10/18 2mg Patient already took dose at home. Daily INR ordered 10/19 3.14 1mg Slightly above goal will give home dose today and may need to decrease for further doses 10/20 3.12 1mg 10/21 2.34 1mg 10/22 2.56 1mg 10/23-10/24 on hold 10/25 1.65 2 mg Resume home dose 10/26 1.55 2 mg 10/27 1.49 2 mg 10/28 1.54 2 mg 10/29 1.56 4 mg 10/30 1.73 3 mg Will continue to follow patient's clinical progress daily. Colton Pozo, PharmD, BCPS * Harshil Paige MD - 10/29/2024 11:38 AM CDT Daily Progress SUBJECTIVE: Feeling lot better, on 1L O2 NC. Denies chest pain. Still has guerrero in place, no hematuria. OBJECTIVE: Vitals: 10/29/24 0747 10/29/24 0800 10/29/24 1048 10/29/24 1053 BP: 107/69 BP Location: Right arm Patient Position: HOB 30 degrees Pulse: 77 81 80 79 Resp: 19 20 20 Temp: 36.5 ??C (97.7 ??F) TempSrc: Oral SpO2: 91% 94% Weight: Height: Intake/Output Summary (Last 24 hours) at 10/29/2024 1138 Last data filed at 10/29/2024 0510 Gross per 24 hour Intake 650 ml Output 15262 ml Net -58052 ml Scheduled Medications Medication Dose Route Frequency ampicillin-sulbactam (UNASYN) 3 g in sodium chloride 0.9% 100 mL IVPB 3 g intravenous Q6H THERESA [Held by Provider] aspirin enteric coated tablet 81 mg 81 mg oral Daily atenoloL (TENORMIN) tablet 50 mg 50 mg oral Daily atorvastatin (LIPITOR) tablet 20 mg 20 mg oral Nightly calcitRIOL (ROCALTROL) capsule 0.25 mcg 0.25 mcg oral Daily dofetilide (TIKOSYN) capsule 125 mcg 125 mcg oral BID fenofibrate nanocrystallized (TRICOR) tablet 145 mg 145 mg oral Daily ipratropium-albuteroL (DUO-NEB) 0.5-2.5 mg/3 mL nebulizer solution 3 mL 3 mL nebulization Q4H Whileawake (RT) levothyroxine (SYNTHROID) tablet 25 mcg 25 mcg oral Daily - 0600 midodrine (PROAMATINE) tablet 10 mg 10 mg oral TID AC pantoprazole DR (PROTONIX) extended release tablet 40 mg 40 mg oral Daily senna-docusate (PERICOLACE) 8.6-50 mg per tablet 1 tablet 1 tablet oral BID tamsulosin (FLOMAX) extended release capsule 0.4 mg 0.4 mg oral Daily with dinner warfarin (COUMADIN) tablet 4 mg 4 mg oral Once - 1800 LABS: Recent Labs Lab Units 10/29/24 0345 WBC K/cumm 3.30* HEMOGLOBIN g/dL 11.9* HEMATOCRIT % 35.3* PLATELETS K/cumm 120* Recent Labs Lab Units 10/29/24 0345 SODIUM mmol/L 126* POTASSIUM PLASMA mmol/L 3.9 CHLORIDE mmol/L 85* CO2 mmol/L 33* ANIONGAP mmol/L 8 GLUCOSE mg/dL 96 BUN SERUM mg/dL 34* CREATININE mg/dL 1.53* CALCIUM mg/dL 8.3* No results found for: BNP No results found for: TROPONINI Exam General: in no apparent distress Neuro: Alert and oriented x 3, moves all extremities well Lungs: symmetric, unlabored, clear to auscultation bilaterally Heart: S1,S2, regular rate & rhythm, no murmurs, rubs, or gallops Abdomen: soft, non-tender, non-distended, bowel sounds present Extremities: no LE edema, palpable peripheral pulses BL ASSESSMENT/PLAN: Acute hypoxemic respiratory failure Likely 2/2 CHF exacerbation/pneumonia -Currently on oxygen 1 L NC -Continue O2. Wean as tolerated -Iv antibiotics -Pulmonary consult Acute on chronic systolic HF -proBNP 8,636 on admission -Pleural effusion on the CT -On lasix 40 mg IV BID. Diuretic management per nephrology. Monitor renal function and lytes,I/o's -Continue atenolol Ischemic cardiomyopathy -S/p BIV ICD implantation History of V-tach Atrial fibrillation -S/p ablation; paced rhythm on EKG -Continue Tikosyn and atenolol -Warfarin dosing per pharmacy -Keep K>/4,mag>/2 CAD -S/p CABG -stable with no angina -Continue ASA, statins Hypertension -Bp stable/controlled Hyperlipidemia -Continue statin Hypothyroidism -Continue levothyroxine CKD -Creatinine 1.36 -Nephrology is following Harshil Paige MD [facility] 10/29/2024 11:38 AM * Jazzy Ring, PHYSICAL SCIENTIST - 10/29/2024 10:51 AM CDT 10/29/24 1048 RT Protocol Assessment RT Assessment Scoring Needed Bronchodilator Bronchodilator Assessment Scoring Pulmonary Status 3 Surgical Status <30 days ago 0 Chest X-Ray < WEEK 0 Respiratory Pattern 0 Mental Status/LOC 0 Cough 0 Breath Sounds 0 Level of Activity 1 Oxygen Required for SPO2 >92% 1 Bronchodilator Assessment Score 5 * Ryan Bailey MD - 10/29/2024 10:41 AM CDT General Medicine Daily Progress Patient is a 84 y.o. male who presented with a chief complaint of shortness of breath. Arrival Vitals Temp 10/18/24 1052 36.4 ??C (97.6 ??F) Pulse 10/18/24 1030 80 Resp 10/18/24 1040 24 BP 10/18/24 1030 121/81 SpO2 10/18/24 1030 99 % Temp src 10/18/24 1052 Axillary Heart Rate Source 10/20/24 2103 Monitor Patient Position 10/18/24 1631 Lying BP Location 10/18/24 1631 Right arm FiO2 (%) 10/20/24 1423 40 % Length of stay: 11 days Hospital Course : Interval History: Case discussed with lace mender, Dr. Mendenhall 9 L of urine put out in the last 24 hour Discussed laboratory findings with patient and Subjective: States he feels frustrated that his sodium level has not improved Objective: Vitals: 24hr Min/Max: Temp Min: 36.3 ??C (97.3 ??F) Max: 36.8 ??C (98.2 ??F) Pulse Min: 77 Max: 81 BP Min: 97/58 Max: 117/90 Resp Min: 17 Max: 20 SpO2 Min: 90 % Max: 99 % Most Recent : Vitals: 10/28/24 2140 10/29/24 0012 10/29/24 0421 10/29/24 0747 BP: 97/58 105/66 107/69 BP Location: Right arm Right arm Right arm Patient Position: Lying Lying HOB 30 degrees Pulse: 80 81 79 77 Resp: 17 17 19 Temp: 36.6 ??C (97.9 ??F) 36.8 ??C (98.2 ??F) 36.5 ??C (97.7 ??F) TempSrc: Axillary Oral Oral SpO2: 90% 93% 91% Weight: Height: I/O last 2 completed shifts: In: 650 [P.O.:250; I.V.:400] Out: 56297 [Urine:37236] No intake/output data recorded. Physical Exam: Gen: In no apparent distress Neuro: Alert, oriented in time place and person. Pulmonary: Not dyspneic. No crackles or rhonchi. Cardiovascular: HS 1, 2 . regular rhythm. No murmurs heard. Moderate pitting lower extremity edema. Current Meds: ampicillin-sulbactam, 3 g, intravenous, Q6H THERESA [Held by Provider] aspirin, 81 mg, oral, Daily atenoloL, 50 mg, oral, Daily atorvastatin, 20 mg, oral, Nightly calcitRIOL, 0.25 mcg, oral, Daily dofetilide, 125 mcg, oral, BID fenofibrate nanocrystallized, 145 mg, oral, Daily ipratropium-albuteroL, 3 mL, nebulization, Q4H While awake (RT) levothyroxine, 25 mcg, oral, Daily - 0600 midodrine, 10 mg, oral, TID AC pantoprazole DR, 40 mg, oral, Daily senna-docusate, 1 tablet, oral, BID tamsulosin, 0.4 mg, oral, Daily with dinner warfarin, 4 mg, oral, Once - 1800 Continuous Medications Medication Dose Last Rate sodium chloride 0.9% infusion 75 mL/hr 75 mL/hr (10/29/24 0917) PRN Medications Medication Dose Route Frequency Last Admin acetaminophen (TYLENOL) tablet 500 mg 500 mg oral Q6H PRN 500 mg at 10/27/242019 clorazepate (TRANXENE) tablet 7.5 mg 7.5 mg oral BID PRN 7.5 mg at 10/28/242021 fluticasone propionate (FLONASE) 50 mcg/actuation nasal spray 2 spray 2 spray each nostril Daily PRN ondansetron (ZOFRAN) injection 4 mg 4 mg intravenous Q6H PRN ramelteon (ROZEREM) tablet 8 mg 8 mg oral Nightly PRN 8 mg at 10/28/242023 [] I have utilized all available immediate resources to obtain, update, or review the patient's current medications (including all prescriptions, [id number] products, herbals, cannabis/cannabidiol products, and vitamin/mineral/dietary (nutritional) supplements). Lab/Radiology/Diagnostic Review: Recent Labs Lab Units 10/29/2434410/28/2441210/27/24 0626 WBC K/cumm 3.30* 3.28* 3.11* HEMOGLOBIN g/dL 11.9* 12.2* 12.1* HEMATOCRIT % 35.3* 36.0* 36.1* MCV fL 93.1 91.1 92.1 PLATELETS K/cumm 120* 115* 99* Recent Labs Lab Units 10/29/2434410/28/2441210/27/24 0626 SODIUM mmol/L 126* 127* 127* POTASSIUM PLASMA mmol/L 3.9 3.9 3.6 CHLORIDE mmol/L 85* 88* 87* CO2 mmol/L 33* 37* 36* ANIONGAP mmol/L 8 2 4 GLUCOSE mg/dL 96 92 95 BUN SERUM mg/dL 34* 37* 37* CREATININE mg/dL 1.53* 1.36* 1.40* CALCIUM mg/dL 8.3* 8.4* 8.3* MAGNESIUM mg/dL -- 1.8 -- Recent Labs Lab Units 10/29/24 0345 10/28/24 0413 10/27/24 0626 INR 1.56* 1.54* 1.49* No results found for: BNP No results found for: TROPONINT Estimated Creatinine Clearance: 33.6 mL/min (A) (by C-G 65 yr and older- minimum SCr 0.8 based on SCr of 1.53 mg/dL (H)). Patient Active Problem List Diagnosis Date Noted Acute congestive heart failure, unspecified heart failure type (HCC) 10/18/2024 Palpitations 02/23/2023 All lab results stated above were reviewed by me. [] I confirmed that the patient's Advance Care Plan is present, code status is documented, or surrogate decision maker is listed in the patient's medical record. Assessment/Plan: Hyponatremia: Possibly due to hypovolemia. Lasix held by Nephrology. No response to tolvaptan. Now on normal saline. Monitor sodium level. Acute hypoxic respiratory failure on admission. Differential includes CHF exacerbation, pneumonia. Currently on 2L NC - titrate as able. CXR - Persistent right effusion with patchy right lower lobe consolidation. 10/24: Repeat x-ray showing pulmonary vascular congestion right lower lobe infiltrate. Home O2 evaluation completed 10/28. Patient requiring 3 L with rest, 6 L with ambulation Congestive heart failure exacerbation on admission. BNP 8636. 2D echo performed- EF 37%, Mod-Severepulmonary htn, Diastolic dysfunction present. Lasix held due to concerns for volume depletion- Cardiology service consulted. Initiate GDMT as appropriate. Moderately sized right pleural effusion with consolidations in the right upper, right lower, and right middle lobes suggestive of multifocal pneumonia, on admission CT. Respiratory PCR negative. Blood cultures NGTD. Strep pneumoniae and Legionella antigens are negative. Was on azithromycin, Rocephin starting on 10/18/2024; on 10/19/2024 Rocephin was changed to Unasyn - continue unasyn. Per pulmonology, thoracentes no longer needed at this time - coumadin resumed.repeat CXR PVC, RLL infiltrate. Will need repeat imaging in 4-6 weeks otherwise Multiple left upper lobe pulmonary nodules largest measuring 1.1 cm, on admission CT. Dilated main pulmonary artery suggestive of pulmonary arterial hypertension, on admission CT. Severe centrilobular emphysematous changes, on admission CT. Nonspecific mild gastric wall thickening may represent pseudo-thickening from underdistention versus gastritis, on admission CT. On PPI. Atrial fibrillation, currently paced. Previously on digoxin. Now On Tikosyn. Coumadin resumed. Monitor INR Hyperlipidemia: Continue atorvastatin Hypothyroidism: Synthroid. CAD. S/p coronary artery bypass graft x two - left internal mammary artery to the left anterior descending, left radial artery to the posterior descending artery, on 02/24/1997. History of VT, status post ablation on 12/31/2015, 04/08/2016 EP study. Hypotension - improved with midodrine - Try to avoid IVF in setting of volume overload. Right Kidney Mass - US retroperitoneum - Right kidney mass up to 1.4 cm - MRI recommended, patient with defibrillator - not able to obtain an MRI. Will discuss with nephrology regarding recommendations for further evaluation. Urine retention - reported abdominal pain - CT imaging performed - No acute findings noted. On review - bladder looked distended. Bladder scan done with 600 cc - straight cath done. Q6 hour bladder scans - if additional straight cath needed, recommend guerrero placement. Guerrero catheter exchanged on 10/22 due to clotting and inability to empty. Tamsulosin initiated. Urology following - recommending discharging patient with guerrero in place to allow bladder decompression. Continue Flomax and follow up as outpatient. Gross Hematuria: Resolved. likely 2/2 trauma from guerrero insertion + being on blood thinners. Urology consulted. Held warfarin, now resumed. Constipation -continue laxatives. ROSA on CKD: Nephrology consulted. Monitor renal function. Avoid nephrotoxic agents. Thrombocytopenia : Stable. Monitor Nonspecific troponin elevation PT and OT as tolerated DVT prophylaxis: Coumadin GI prophylaxis: Proton Anticipated DC home with home health PT and OT 10/31 Hyponatremia. Monitor and treat underlying etiology. Pancytopenia. Monitor counts. Monitor for bleeding. DVT prophylaxis: given. Code status: LIMITED - No CPR Ryan Bailey MD [facility] Pager #: [phone] This note is dictated and transcribed by M*Modal Fluency Direct direct software. Timber Setter variances may occur. Despite proof reading, typographical errors may occur. * Radha Suggs MD - 10/29/2024 10:20 AM CDT Pulmonary Daily Progress Chief complaint/reason for consult: New O2 requirement, Pulmonary nodules, pulmonary hypertension . Interval History: Up in the chair Family present On 2 LPM NC Not much cough Na still down trending Presenting History: 84 y/o CM who presented to the ED on 10/18/24 with complaints of shortness of breath that had been worsening over the last week. He was reportedly satting 70% on room air when EMSarrived. 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 States he has been having increased BAH. Does have cough at times that is productive of clear sputum. Started smoking age 12 and quit in 1996, smoked up to 1.5 ppd for 44 years, giving a 66 pack year hx. He has been on amiodarone in the past but not for sometime. 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 No service. CT Chest 10/18/24: Very severe emphysematous changes, moderate right pleural effusion, lung nodules Carries a hx of atrial fibrillation s/p multiple ablations, HFrEF, ischemic cardiomyopathy s/p BiVICD, CKD, CAD s/p CABG, Allergies: Allergies Allergen Reactions Trazodone Hcl Unknown Morphine Hydrocodone Unknown Lunesta [Eszopiclone] Other (See comments) Gave him crazy dreams Tramadol Nausea only Vicodin [Hydrocodone-Acetaminophen] Nausea only Medications: Scheduled Meds:ampicillin-sulbactam, 3 g, intravenous, Q6H THERESA [Held by Provider] aspirin, 81 mg, oral, Daily atenoloL, 50 mg, oral, Daily atorvastatin, 20 mg, oral, Nightly calcitRIOL, 0.25 mcg, oral, Daily dofetilide, 125 mcg, oral, BID fenofibrate nanocrystallized, 145 mg, oral, Daily ipratropium-albuteroL, 3 mL, nebulization, Q4H While awake (RT) levothyroxine, 25 mcg, oral, Daily - 0600 midodrine, 10 mg, oral, TID AC pantoprazole DR, 40 mg, oral, Daily senna-docusate, 1 tablet, oral, BID tamsulosin, 0.4 mg, oral, Daily with dinner warfarin, 4 mg, oral, Once - 1800 Continuous Infusions:sodium chloride 0.9%, 75 mL/hr, Last Rate: 75 mL/hr (10/29/24 0917) PRN Meds:. acetaminophen clorazepate fluticasone propionate ondansetron ramelteon ROS Above review of system reviewed on 10/29/2024 Vitals: Vitals: 10/28/24 2140 10/29/24 0012 10/29/24 0421 10/29/24 0747 BP: 97/58 105/66 107/69 BP Location: Right arm Right arm Right arm Patient Position: Lying Lying HOB 30 degrees Pulse: 80 81 79 77 Resp: 17 17 19 Temp: 36.6 ??C (97.9 ??F) 36.8 ??C (98.2 ??F) 36.5 ??C (97.7 ??F) TempSrc: Axillary Oral Oral SpO2: 90% 93% 91% Weight: Height: Temp (24hrs), Av.6 ??C (97.9 ??F), Min:36.3 ??C (97.3 ??F), Max:36.8 ??C (98.2 ??F) Intake/Output Summary (Last 24 hours) at 10/29/2024 1020 Last data filed at 10/29/2024 0510 Gross per 24 hour Intake 650 ml Output 42724 ml Net -84650 ml Physical Exam Vitals and nursing note reviewed. Constitutional: General: He is not in acute distress. Appearance: He is well-developed. HENT: Head: Normocephalic and atraumatic. Comments: Hard of hearing Nose: Nose normal. Mouth/Throat: Mouth: Mucous membranes are moist. Eyes: Conjunctiva/sclera: Conjunctivae normal. Cardiovascular: Rate and Rhythm: Normal rate and regular rhythm. Heart sounds: No murmur heard. Pulmonary: Effort: Pulmonary effort is normal. No respiratory distress. Breath sounds: No stridor. Decreased breath sounds present. No wheezing, rhonchi or rales. Abdominal: General: Bowel sounds are normal. Palpations: Abdomen is soft. Skin: General: Skin is warm and dry. Neurological: General: No focal deficit present. Mental Status: He is alert. Psychiatric: Mood and Affect: Mood normal. Behavior: Behavior normal. Lab/Radiology/Diagnostic Review: Labs: Recent Labs Lab Units 10/29/2434410/28/24 0413 10/27/24 0626 WBC K/cumm 3.30* 3.28* 3.11* HEMOGLOBIN g/dL 11.9* 12.2* 12.1* HEMATOCRIT % 35.3* 36.0* 36.1* PLATELETS K/cumm 120* 115* 99* NEUTROS PCT % 66.4 68.6 67.5 LYMPHS PCT % 17.0 16.5 17.7 MONOS PCT % 12.4 11.9 11.3 EOS PCT % 2.7 2.4 2.9 Recent Labs Lab Units 10/29/245 10/28/24 0413 10/27/24 0626 SODIUM mmol/L 126* 127* 127* POTASSIUM PLASMA mmol/L 3.9 3.9 3.6 CHLORIDE mmol/L 85* 88* 87* CO2 mmol/L 33* 37* 36* ANIONGAP mmol/L 8 2 4 GLUCOSE mg/dL 96 92 95 BUN SERUM mg/dL 34* 37* 37* CREATININE mg/dL 1.53* 1.36* 1.40* CALCIUM mg/dL 8.3* 8.4* 8.3* Imaging: CT abd 10/21/24: similar b effusions, R>L w RLL consolidation CXR 10/23/24: RLL inf, no visible large effusion CXR 10/27: Per my read PVC present Other diagnostic tests: Echo 10/20/24: EF 37%, LVDD, RV volume overload, RVSP 60 I have personally reviewed above laboratory findings, chest imaging, and diagnostic tests 10/29/2024 Assessment and Plan: Acute hypoxic respiratory insufficiency Severe emphysema RLL cavitary lesion: pneumonia vs malignancy vs bullous disease B effusions, R>L, likely due to CHF, parapneumonic also possible Afib CHF CKD CAD w hx CABG hyponatremia Recs: - Wean supplemental O2 for SpO2 88-92% - Nebs TID - Unasyn day 11, completed azithromycin. Given cavitary lesion would continue augmentin at discharge for total treatment period of 3-4 weeks. - Will need repeat CT chest imaging in 4-6 weeks - nephrology following - O2 assessment prior to d/c * Delvin Mendenhall MD - 10/29/2024 8:38 AM CDT Nephrology Progress Note [facility] SUBJECTIVE 10/29 Na 126. Over 11 liters urine. Overall stable. Will need IVF. 10/28 Slowly improving. Bp soft. Guerrero draining clear urine. Over 7 litres of urine reported? OBJECTIVE Vitals: Vitals: 10/28/24 2140 10/29/24 0012 10/29/24 0421 10/29/24 0747 BP: 97/58 105/66 107/69 BP Location: Right arm Right arm Right arm Patient Position: Lying Lying HOB 30 degrees Pulse: 80 81 79 77 Resp: 17 17 19 Temp: 36.6 ??C (97.9 ??F) 36.8 ??C (98.2 ??F) 36.5 ??C (97.7 ??F) TempSrc: Axillary Oral Oral SpO2: 90% 93% 91% Weight: Height: Intake/Output Summary (Last 24 hours) at 10/29/2024 0838 Last data filed at 10/29/2024 0510 Gross per 24 hour Intake 650 ml Output 07612 ml Net -29225 ml REVIEW OF SYSTEMS Review of Systems Constitutional: Negative. HENT: Negative. Eyes: Negative. Respiratory: Negative. Cardiovascular: Negative. Gastrointestinal: Negative. Genitourinary: Negative. Musculoskeletal: Negative. Skin: Negative. Allergic/Immunologic: Negative. Hematological: Negative. All other systems reviewed and are negative. PHYSICAL EXAM Physical Exam Constitutional: Appears well-developed. HENT: wnl Head: Normocephalic. Eyes: Pupils are equal, round, and reactive to light. Neck: Normal range of motion. Neck supple. Cardiovascular: Normal rate. Pulmonary/Chest: Effort normal and breath sounds normal. Abdominal: Soft. Musculoskeletal: Normal range of motion. Neurological: Alert, oriented. Skin: Skin is warm. Nursing note and vitals reviewed. MEDICATIONS Current Facility-Administered Medications: acetaminophen (TYLENOL) tablet 500 mg, 500 mg, oral, Q6H PRN, Luan Guillermo DO, 500 mg at 10/27/242019 ampicillin-sulbactam (UNASYN) 3 g in sodium chloride 0.9% 100 mL IVPB, 3 g, intravenous, Q6H THERESA, Ryan Bailey MD, Last Rate: 220 mL/hr at 10/29/24 0502, 3 g at 10/29/24 050 [Held by Provider] aspirin enteric coated tablet 81 mg, 81 mg, oral, Daily, Namrata Spencer NP, 81 mg at 10/24/241000 atenoloL (TENORMIN) tablet 50 mg, 50 mg, oral, Daily, Namrata Spencer NP, 50 mg at 10/28/24905 atorvastatin (LIPITOR) tablet 20 mg, 20 mg, oral, Nightly, Namrata Spencer NP, 20 mg at 10/28/242020 calcitRIOL (ROCALTROL) capsule 0.25 mcg, 0.25 mcg, oral, Daily, Namrata Spencer NP, 0.25mcg at 10/28/24905 clorazepate (TRANXENE) tablet 7.5 mg, 7.5 mg, oral, BID PRN, Luan Guillermo DO, 7.5 mg at 10/28/242021 dofetilide (TIKOSYN) capsule 125 mcg, 125 mcg, oral, BID, Namrata Spencer NP, 125 mcg at10/28/242020 fenofibrate nanocrystallized (TRICOR) tablet 145 mg, 145 mg, oral, Daily, Namrata Spencer NP, 145 mg at 10/28/24905 fluticasone propionate (FLONASE) 50 mcg/actuation nasal spray 2 spray, 2 spray, each nostril, DailyPRN, Namrata Spencer NP ipratropium-albuteroL (DUO-NEB) 0.5-2.5 mg/3 mL nebulizer solution 3 mL, 3 mL, nebulization, Q4H While awake (RT), Namrata Spnecer NP, 3 mL at 10/28/242035 levothyroxine (SYNTHROID) tablet 25 mcg, 25 mcg, oral, Daily - 0600, Namrata Spencer NP,25 mcg at 10/29/24 050 midodrine (PROAMATINE) tablet 10 mg, 10 mg, oral, TID AC, Delvin Mendenhall MD, 10 mg at 10/28/241718 ondansetron (ZOFRAN) injection 4 mg, 4 mg, intravenous, Q6H PRN, Namrata Spencer NP pantoprazole DR (PROTONIX) extended release tablet 40 mg, 40 mg, oral, Daily, Carla Jean MD,40 mg at 10/28/24 09 ramelteon (ROZEREM) tablet 8 mg, 8 mg, oral, Nightly PRN, Namrata Spencer NP, 8 mg at 10/28/242023 senna-docusate (PERICOLACE) 8.6-50 mg per tablet 1 tablet, 1 tablet, oral, BID, Luan Guillermo DO, 1 tablet at 10/28/24905 sodium chloride 0.9% infusion, 75 mL/hr, intravenous, Continuous, Delvin Mendenhall MD tamsulosin (FLOMAX) extended release capsule 0.4 mg, 0.4 mg, oral, Daily with dinner, Luan Guillermo DO, 0.4 mg at 10/28/241718 warfarin (COUMADIN) tablet 4 mg, 4 mg, oral, Once - 1800, Ryan Bailey MD Lab/Radiology/Diagnostic Review: Recent Results (from the past 24 hours) Sodium, urine, random Collection Time: 10/28/24 12:12 PM Result Value Ref Range Sodium, ur 21 mmol/L Potassium, urine, random Collection Time: 10/28/24 12:12 PM Result Value Ref Range Potassium conc, ur 11.0 mmol/L Chloride, urine, random Collection Time: 10/28/24 12:12 PM Result Value Ref Range Chloride, ur 22 mmol/L Osmolality, urine Collection Time: 10/28/24 12:12 PM Result Value Ref Range Osmo, ur 123 mOsm/kg CBC with auto differential Collection Time: 10/29/24 3:45 AM Result Value Ref Range WBC 3.30 (L) 3.80 - 9.90 K/cumm Hgb 11.9 (L) 13.0 - 17.5 g/dL Hct 35.3 (L) 38.9 - 50.3 % Plt 120 (L) 150 - 400 K/cumm MPV 12.5 (H) 9.1 - 12.3 fL RBC 3.79 (L) 4.30 - 5.80 M/cumm MCV 93.1 81.3 - 96.4 fL MCH 31.4 27.1 - 33.3 pg MCHC 33.7 32.3 - 35.7 g/dL RDW CV 15.7 (H) 11.1 - 14.9 % RDW SD 53.3 (H) 35.7 - 48.1 fL NRBC abs 0.00 0.00 - 0.01 K/cumm Basic metabolic panel Collection Time: 10/29/24 3:45 AM Result Value Ref Range Sodium 126 (L) 135 - 145 mmol/L Potassium, pl 3.9 3.3 - 4.9 mmol/L Chloride 85 (L) 97 - 110 mmol/L CO2 33 (H) 22 - 32 mmol/L Anion gap 8 2 - 15 mmol/L BUN 34 (H) 6 - 25 mg/dL Creatinine 1.53 (H) 0.80 - 1.30 mg/dL Glucose 96 70 - 199 mg/dL Calcium 8.3 (L) 8.5 - 10.3 mg/dL Protime-INR Collection Time: 10/29/24 3:45 AM Result Value Ref Range PT 17.0 (H) 9.7 - 13.0 sec INR 1.56 (H) 0.90 - 1.20 Differential, auto Collection Time: 10/29/24 3:45 AM Result Value Ref Range Neutrophil abs 2.19 1.50 - 6.50 K/cumm Imm gran abs 0.02 0.00 - 0.10 K/cumm Lymphocyte abs 0.56 (L) 0.80 - 3.30 K/cumm Monocyte abs 0.41 0.20 - 0.80 K/cumm Eosinophil abs 0.09 0.00 - 0.50 K/cumm Basophil abs 0.03 0.00 - 0.10 K/cumm Neutrophil pct 66.4 % Imm gran pct 0.6 % Lymphocyte pct 17.0 % Monocyte pct 12.4 % Eosinophil pct 2.7 % Basophil pct 0.9 % eGFR Collection Time: 10/29/24 3:45 AM Result Value Ref Range eGFR 45 (L) >=60 mL/min/1.73 m2 XR Chest 1 View Result Date: 10/27/2024 Narrative: EXAMINATION: XR CHEST 1 VIEW HISTORY: The patient is an 84-year-old male who presents with shortness of breath. Comparison made with the previous study dated 10/26/2024. TECHNIQUE: AP portable view of the chest. FINDINGS: Cardiomegaly with aortic atherosclerosis. Findings of pulmonary vascular congestion. No focal consolidation. Impression: Cardiomegaly with pulmonary vascular congestion. Electronically signed by: Coco Youngblood M.D. XR Chest 1 View Result Date: 10/26/2024 Narrative: EXAMINATION: XR CHEST 1 VIEW HISTORY: The patient is a 84-year-old male who presents with shortness of breath. Comparison made with the previous study dated 10/24/2024. TECHNIQUE: AP portable view of the chest. FINDINGS: Cardiomegaly with aortic atherosclerosis. Findings of pulmonary vascular congestion. No focal infiltrate seen. Impression: Cardiomegaly with pulmonary vascular congestion. Electronically signed by: Coco Youngblood M.D. XR Chest 1 Vw Portable Result Date: 10/24/2024 Narrative: EXAMINATION: XR CHEST 1 VIEW HISTORY: The patient is an 84-year-old male who presents with hypoxia. Comparison made with the previous study dated 10/23/2024. TECHNIQUE: AP portable view ofthe chest. FINDINGS: Cardiomegaly with aortic atherosclerosis. Findings of pulmonary vascular congestion. Right lower lobe infiltrate with the remainder of the lungs being clear. Impression: Findings as described above. Electronically signed by: Coco Youngblood M.D. XR Chest 1 Vw Portable Result Date: 10/23/2024 Narrative: Examination: XR CHEST 1 VIEW Date: 10/23/2024 7:20 AM History: effusion Comparison: 10/18/2024. Findings: Normal heart size, sternotomy and left AICD is again seen. A small right effusion andmoderate right lower lobe infiltrate with patchy consolidation is unchanged. Impression: Persistent right effusion with patchy right lower lobe consolidation. Electronically signed by: Perla Cowart M.D. CT Abdomen Pelvis WO Contrast Result Date: 10/21/2024 Narrative: EXAMINATION: CT ABDOMEN PELVIS WO CONTRAST DATE: 10/21/2024 5:35 AM HISTORY: Weight loss,unintended TECHNIQUE: Images through the abdomen and pelvis were obtained without contrast. FINDINGS: There are bilateral pleural effusions. There is bilateral lower lobe atelectasis. 26 mm left hepatic cyst is present. The patient is status post cholecystectomy. There is no biliary ductal dilatatio n. The spleen, pancreas and adrenal glands are grossly normal on this noncontrast examination. There is mild bilateral perinephric stranding. There is no hydronephrosis, hydroureter or renal calculus. There are several small exophytic left renal lesions which cannot be further characterized on this noncontrast examination. There is no free air or fluid. There is no bowel obstruction. The appendixis not identified with confidence. There are multiple colonic diverticula. There is a 43 mm infrarenal abdominal aortic aneurysm. There are postoperative changes of the aortobiiliac bypass. Radiationtherapy changes are noted in the prostate. Impression: Limited study secondary to lack of intravenous contrast. No acute intra-abdominal abnormality. Colonic diverticulosis. Bilateral pleural effusions and bilateral lower lobe atelectasis. 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 Electronically signed by: Neel Morrison M.D. Transthoracic Echo (TTE) Complete W Doppler/CF Result Date: 10/21/2024 Narrative: [place] [address] Echocardiogram Report Patient Name: IAN MONSALVE H : 1940 Study Date: 10/20/2024 12:11:53 PM Gender: M Tech: Location: [place] [address] Ref Provider: CARLA JEAN Height(Cm): 170 BSA: 1.93 Weight(Kg): 79 Heart Rate: 80 BP: 90 / 55 Quality: Good Order Provider: CARLA JEAN PROCEDURES: Echocardiographic Report: Transthoracic echocardiogram with complete 2D, M-Mode, color Doppler examination and contrast. INDICATIONS: Congestive Heart Failure. MEASUREMENTS: 2D/MM Value Ra nge Doppler Value Range EF Mod BP 37 [...] 3.10 - 3.70 ] MV E Peak Bailio 0.79 m/s [ 0.60 - 1.30 ] MV A Peak Abilio 0.62 m/s [ 1.00 - 1.20 ] MV Mean PG 1 mmHg MV PHT 34 msec [ 20 - 100 ] MVA PHT 6.43 cm2 MV Decel Time 118 msec [104 - 258 ] PV Peak Abilio 0.86 [...] Moderate enlargement of right ventricle. Severe right ventricul ar hypokinesis. Abnormal (paradoxical) septal motion consistent with [...] measured at 37 %. Moderate RV enlargement withsevere hypokinesis. Abnormal (paradoxical) septal motion consistent with RV volume overload and/or elevated RV end-diastolic pressure. Mild biatrial enlargement. Linear artifact in right atrium. Normal structure of the mitral valve. Mild mitral valve regurgitation. Aortic cusps appear mildly sclerotic. No evidence of hemodynamically significant aortic stenosis by Doppler. Htccpcya-mp-tagmer pulmonary hypertension, estimated RVSP 60 mmHg. Moderate tricuspid regurgitation. Electronically Signed By: Clive Godfrey MD, [facility] 10/21/2024 6:43:00 AM CDT US Retroperitoneal Complete Result Date: 10/19/2024 Narrative: EXAMINATION: RENAL ULTRASOUND Date: 10/19/2024 2:20 PM History: Kidney failure, acute Comparison: None. Findings: The right kidney measures 10.5 x 4.7 x 4.0 cm . Parenchymal echogenicity iswithin normal limits. There is no hydronephrosis, calculus, or perinephric fluid. Possible corticalmass in the right kidney measuring 1.4 x 1.3 x 1.4 cm The left kidney measures 10.6 x 5.0 x 4.0 cm.Parenchymal echogenicity is within normal limits. There is no hydronephrosis, calculus or perinephric fluid. Simple cysts measuring up to 1.9 cm in the left kidney. The bladder Is unremarkable. Prostate is enlarged measuring 4.2 x 4.6 x 5.3 cm Impression: 1. Possible mass in the right kidney measuring up to 1.4 cm. Suggest MRI of the kidneysfor further evaluation. 2. Enlarged prostate. Electronically signed by: Rajendra Oh II, D.O. CT Chest WO Contrast Result Date: 10/18/2024 Narrative: EXAMINATION: Computed tomography of the chest without intravenous contrast HISTORY: Abnormal chest radiograph. TECHNIQUE: Transaxial computed tomographic images of the chest were obtained without intravenous contrast according to the standard protocol. COMPARISON: Chest radiograph dated same day. FINDINGS: There is a moderately sized right pleural effusion with fluid in the right majorfissure and right upper, middle, and lower lobe consolidations most notable in the right lower lobe. Small left pleural effusion with left lower lobe atelectasis. Severe centrilobular emphysematous changes. Poststernotomy changes. Mild mediastinal lymphadenopathy with largest mediastinal node measur ing 1.1 cm in short axis dimension. Nodules in the left upper lobe, largest measuring approximately1.1 x 0.5 cm. Follow-up suggested. Main pulmonary [...] may represent pseudo-thickening from underdistention versus gastritis. Impression: 1. Moderately sized right pleural effusion with [...] Electronically signed by: Rajendra Oh II, D.O. ECG 12 lead Result Date: 10/18/2024 Narrative: Vent Rate: 80 bpm RR Interval: 749 msec RI Interval: 140 msec QRS Duration: 164 msec QT Interval: 377 msec QTC Interval: 412 msec P-R-T [place]: -52 - 226 - 226 degrees IMPRESSION: ELECTRONICVENTRICULAR PACEMAKER ST DEPRESSION, CONSIDER SUBENDOCARDIAL INJURY [0.1+ mV ST DEPRESSION] ABNORMAL ECG No change compared to prior EKG Electronically Signed By: Emilio SAINZ XR Chest 1 Vw Portable Result Date: 10/18/2024 Narrative: EXAMINATION: XR CHEST 1 VIEW DATE: 10/18/2024 11:20 AM INDICATION: Shortness of breath. COMPARISON: 02/23/2023. Impression: ICD leads are intact. Post sternotomy changes are noted. Cardiac mediastinal silhouettewithin normal limits. There is a small right pleural effusion. Opacities in the right lower lobe suggestive of pneumonia, increased from prior. Follow-up suggested to ensure resolution. No acute osseous abnormality. Electronically signed by: Rajendra Oh II, D.O. ASSESSMENT/PLAN CKD 3b CRS. CHF/dyspnea. R LL PNA. MBD. ICD status. RECOMMENDATIONS IV diuresis. CKD washburn. Overall improved. -10/20, BP low, start midodrine, IV ABX, decrease diuresis, CT scan kidneys. -10/21, urinary retention, ROSA worse, guerrero placed, will follow, CT scan to be reviewed. -10/22, CT scan kidneys shows exophytic cysts, will do MRI as o/p, continue guerrero, ROSA better, good UO, no new changes, difficult guerrero yesterday. -Cr 1.7 and baseline, dyspnea better, gross hematuria, difficult guerrero, traumatic hematuria, Needs CBI, will reconsult Urology. -cr is baseline, guerrero irrigation, likely needs thoracentesis, for both diagnostic and therapeutic purposes, avss, lytes stable. -CR is stable, cxr better, can switch to po diuretics tomorrow. -stable labs, BP soft, OT/PT, CMR eval, same tx, hold diuresis, po midodrine, continue guerrero, will retain on IP dc. Renal mass will be evaluated as o/p. -Start normotonic IVF, tolvaptan will not work in most cases with met alkalosis, he has some edema but that seems like third spacing, long d/w family, they want SNF and can't take care of him at home. I can be reached at [phone] with any concerns. Thank you Ryan Bailey MD for the consult. Delvin Mendenhall MD [employer] [phone] * Colton Pozo [facility] - 10/29/2024 7:10 AM CDT Pharmacokinetic Consult - Anticoagulation Dosing Ian Monsalve is a 84 y.o. male who has been consulted for pharmacy warfarin dosing and monitoring. Current Hematologic Labs INR Date Value Ref Range Status 10/29/2024 1.56 (H) 0.90 - 1.20 Final Comment: Interpretive data Oral anticoagulant therapeutic ranges: Venous thromboembolism prophylaxis or treatment: 2.0-3.0 CARDIOLOGY Standard range: 2.0-3.0 High-intensity range: 2.5-3.5 Refer to indication-specific guidelines for appropriate target ranges for prosthetic heart valve replacement. Current interpretive data was last revised on 2019. 10/28/2024 1.54 (H) 0.90 - 1.20 Final Comment: Interpretive data Oral anticoagulant therapeutic ranges: Venous thromboembolism prophylaxis or treatment: 2.0-3.0 CARDIOLOGY Standard range: 2.0-3.0 High-intensity range: 2.5-3.5 Refer to indication-specific guidelines for appropriate target ranges for prosthetic heart valve replacement. Current interpretive data was last revised on 2019. 10/27/2024 1.49 (H) 0.90 - 1.20 Final Comment: Interpretive data Oral anticoagulant therapeutic ranges: Venous thromboembolism prophylaxis or treatment: 2.0-3.0 CARDIOLOGY Standard range: 2.0-3.0 High-intensity range: 2.5-3.5 Refer to indication-specific guidelines for appropriate target ranges for prosthetic heart valve replacement. Current interpretive data was last revised on 2019. Hgb Date Value Ref Range Status 10/29/2024 11.9 (L) 13.0 - 17.5 g/dL Final Hct Date Value Ref Range Status 10/29/2024 35.3 (L) 38.9 - 50.3 % Final Plt Date Value Ref Range Status 10/29/2024 120 (L) 150 - 400 K/cumm Final No results found for: PTT Assessment Patient was admitted on warfarin with a dose of 2 mg on Thursday and 1 mg all other days (Thu to Thu). Patient is on warfarin for an indication of atrial fibrillation. Goal INR is 2-3. Potential interacting medications: unasyn (could potentially increase INR) Plan Date INR Dose given Comments 10/18 2mg Patient already took dose at home. Daily INR ordered 10/19 3.14 1mg Slightly above goal will give home dose today and may need to decrease for further doses 10/20 3.12 1mg 10/21 2.34 1mg 10/22 2.56 1mg 10/23-10/24 on hold 10/25 1.65 2 mg Resume home dose 10/26 1.55 2 mg 10/27 1.49 2 mg 10/28 1.54 2 mg 10/29 1.56 4 mg Will continue to follow patient's clinical progress daily. Colton Pozo, PharmD, BCPS * Gemma Hook OT - 10/28/2024 4:00 PM CDT Occupational Therapy NOTE / SESSION TYPE: DAILY PROGRESS / TREATMENT Patient's Name: Ian Monsalve Age / Sex: 84 y.o. / male Room: [place] [address] : 1940 Date of service: 10/28/24 TIME IN: 1606 TIME OUT: 1657 Patient Active Problem List Diagnosis Palpitations Acute congestive heart failure, unspecified heart failure type (HCC) No past medical history on file. Past Surgical History: Procedure Laterality Date CHOLECYSTECTOMY Precautions (including weight-bearing): Fall risk and Bed / chair alarm Subjective: I can only take so much, I don't know how to get through this My family is so wonderful Therapy Pain: Pre-therapy pain level: 0 /10 Pain location: No pain - Location N/A Pain Intervention(s): No pain - Intervention N/A Post-therapy pain level: 0 /10 Pain scale reference: 0-10 SCALE Objective: Appearance: Presentation upon OT arrival: Patient Supine with head of bed elevated Presentation upon OT departure: Patient Supine with head of bed elevated Bed / Chair alarm in place and activated upon OT departure: Yes Call light within arms reach of patient at end of session: Yes Completed patient handoff and notified BOARDING MACHINE OPERATOR / RN, name: Vernell, of patient's location and functional status upon completion of session VITAL SIGNS: Heart rate at rest: 78 BPM Heart rate with activity: 82 BPM O2 saturations at rest: 94 % O2 saturations with activity: 86-92 % Oxygen LPM: 3 Cognitive / Perceptual: Alert and oriented throughout, following instructions, emotional, deaf in right ear, 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 Patient required assistance for safety Caregiver Present: No Education & Training Provided: Role of OT, OT plan of care, ADL training, Bed mobility training, Functional transfer training, Balance training, Safety education, Durable medical equipment: wheeled walker, Pursed lip breathing / Relaxation techniques, and Energy conservation education Assessment: Activity tolerance / response to OT session: GOOD PARTICIPATION, GOOD MOTIVATION, and RECEPTIVE TO EDUCATION / TRAINING Progress towards goals: Please refer to care plan from this date for progress towards individual goals Plan: Therapy Plan: Rehab Potential (Prognosis): good OT Recommendations This Date: OT RECOMMENDATIONS: OT Recommendation: (S) Home with 24 hour supervision, Home Health OT Flow sheet updated and OT Consultation in Regards to Change in Discharge Recommendations: YES /NO: No Additional recommendation comments: Frequency of therapy:OT Frequency during current admission: 3-5x/wk If this is the last note, consider this the discharge summary Gemma Hook OT 10/28/24 * Zeke Guillen, STEPHANI - 10/28/2024 3:18 PM CDT 10/28/24 1500 Resting Information Resting HR. 85 bpm Resting SPO2 85 % Oxygen Setting room air Delivery Device n/a Ambulation Trials to Assess Desaturation to 88% Activity 1: Ambulated (feet) 0 feet Oxygen Setting #1 room air SPO2 (%) #1 85 % Activity 2: Ambulated (feet) 0 feet Oxygen Setting #2 2L SPO2 (%) #2 88 % Activity 3: Ambulated (feet) 0 feet Oxygen Setting #3 3 SPO2 (%) #3 93 % More Activites Needed? Yes Activity 4: Ambulated (feet) 50 feet Oxygen Setting #4 3 SPO2 % #4 89 % Activity 5: Ambulated (feet) 100 feet (pt had to rest for 2 minutes) Oxygen Setting #5 4 SPO2 (%) #5 88 % Activity 6: Ambulated (feet) 100 feet Oxygen Setting #6 6 SPO2 (%) #6 93 % Post Ambulation Assessment HR Post Assessment 79 bpm RR Post Assessment 20 breaths/m Post Assessment Recommendation 3L with rest, 6L with ambulation $ Home O2 Assessment Yes * Lonnie Landin MD - 10/28/2024 12:02 PM CDT Pulmonary Daily Progress Chief complaint/reason for consult: New O2 requirement, Pulmonary nodules, pulmonary hypertension . Interval History: Resting comfortably in chair On 1L NC; does not use at home Feels well; less dyspnea and cough Occasional yellow sputum Afebrile Upset that he is not going home today d/t hyponatremia Presenting History: 84 y/o CM who presented to the ED on 10/18/24 with complaints of shortness of breath that had been worsening over the last week. He was reportedly satting 70% on room air when EMSarrived. 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 States he has been having increased BAH. Does have cough at times that is productive of clear sputum. Started smoking age 12 and quit in 1996, smoked up to 1.5 ppd for 44 years, giving a 66 pack year hx. He has been on amiodarone in the past but not for sometime. 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 No service. CT Chest 10/18/24: Very severe emphysematous changes, moderate right pleural effusion, lung nodules Carries a hx of atrial fibrillation s/p multiple ablations, HFrEF, ischemic cardiomyopathy s/p BiVICD, CKD, CAD s/p CABG, Allergies: Allergies Allergen Reactions Trazodone Hcl Unknown Morphine Hydrocodone Unknown Lunesta [Eszopiclone] Other (See comments) Gave him crazy dreams Tramadol Nausea only Vicodin [Hydrocodone-Acetaminophen] Nausea only Medications: Scheduled Meds:ampicillin-sulbactam, 3 g, intravenous, Q6H THERESA [Held by Provider] aspirin, 81 mg, oral, Daily atenoloL, 50 mg, oral, Daily atorvastatin, 20 mg, oral, Nightly calcitRIOL, 0.25 mcg, oral, Daily dofetilide, 125 mcg, oral, BID fenofibrate nanocrystallized, 145 mg, oral, Daily ipratropium-albuteroL, 3 mL, nebulization, Q4H While awake (RT) levothyroxine, 25 mcg, oral, Daily - 0600 magnesium sulfate, 2 g, intravenous, Once midodrine, 10 mg, oral, TID AC pantoprazole DR, 40 mg, oral, Daily potassium chloride ER, 20 mEq, oral, Once senna-docusate, 1 tablet, oral, BID tamsulosin, 0.4 mg, oral, Daily with dinner warfarin, 2 mg, oral, Once - 1800 Continuous Infusions: PRN Meds:. acetaminophen clorazepate fluticasone propionate ondansetron ramelteon ROS Above review of system reviewed on 10/28/2024 Vitals: Vitals: 10/28/24 0430 10/28/24 0748 10/28/24 0830 10/28/24 0906 BP: 102/62 97/83 BP Location: Right arm Right arm Patient Position: Lying HOB 30 degrees Pulse: 80 80 83 Resp: 18 18 Temp: 36.7 ??C (98.1 ??F) 36.3 ??C (97.3 ??F) TempSrc: Oral Oral SpO2: 91% 95% 93% Weight: Height: Temp (24hrs), Av.7 ??C (98 ??F), Min:36.3 ??C (97.3 ??F), Max:36.9 ??C (98.4 ??F) Intake/Output Summary (Last 24 hours) at 10/28/2024 1202 Last data filed at 10/28/2024 1155 Gross per 24 hour Intake 1920 ml Output 8150 ml Net -6230 ml Physical Exam Vitals and nursing note reviewed. Constitutional: General: He is not in acute distress. Appearance: He is well-developed. HENT: Head: Normocephalic and atraumatic. Comments: Hard of hearing Nose: Nose normal. Mouth/Throat: Mouth: Mucous membranes are moist. Eyes: Conjunctiva/sclera: Conjunctivae normal. Cardiovascular: Rate and Rhythm: Normal rate and regular rhythm. Heart sounds: No murmur heard. Pulmonary: Effort: Pulmonary effort is normal. No respiratory distress. Breath sounds: Normal breath sounds. No stridor. No wheezing, rhonchi or rales. Abdominal: General: Bowel sounds are normal. Palpations: Abdomen is soft. Musculoskeletal: Right lower leg: Edema present. Left lower leg: Edema present. Skin: General: Skin is warm and dry. Neurological: General: No focal deficit present. Mental Status: He is alert. Psychiatric: Mood and Affect: Mood normal. Behavior: Behavior normal. Lab/Radiology/Diagnostic Review: Labs: Recent Labs Lab Units 10/28/24 0413 10/27/24 0626 10/26/24 0628 WBC K/cumm 3.28* 3.11* 3.52* HEMOGLOBIN g/dL 12.2* 12.1* 12.0* HEMATOCRIT % 36.0* 36.1* 35.9* PLATELETS K/cumm 115* 99* 94* NEUTROS PCT % 68.6 67.5 67.7 LYMPHS PCT % 16.5 17.7 17.0 MONOS PCT % 11.9 11.3 11.6 EOS PCT % 2.4 2.9 2.8 Recent Labs Lab Units 10/28/24 0413 10/27/24 0626 10/26/24 0628 SODIUM mmol/L 127* 127* 129* POTASSIUM PLASMA mmol/L 3.9 3.6 3.9 CHLORIDE mmol/L 88* 87* 89* CO2 mmol/L 37* 36* 33* ANIONGAP mmol/L 2 4 7 GLUCOSE mg/dL 92 95 94 BUN SERUM mg/dL 37* 37* 43* CREATININE mg/dL 1.36* 1.40* 1.65* CALCIUM mg/dL 8.4* 8.3* 8.5 Imaging: CT abd 10/21/24: similar b effusions, R>L w RLL consolidation CXR 10/23/24: RLL inf, no visible large effusion CXR 10/27: Per my read PVC present Other diagnostic tests: Echo 10/20/24: EF 37%, LVDD, RV volume overload, RVSP 60 I have personally reviewed above laboratory findings, chest imaging, and diagnostic tests 10/28/2024 Assessment and Plan: Acute hypoxic respiratory insufficiency Severe emphysema RLL cavitary lesion: pneumonia vs malignancy vs bullous disease B effusions, R>L, likely due to CHF, parapneumonic also possible Afib CHF CKD CAD w hx CABG hyponatremia Recs: - Wean supplemental O2 for SpO2 88-92% - Nebs TID - Unasyn day 10, completed azithromycin. Given cavitary lesion would continue augmentin at discharge for total treatment period of 3-4 weeks. - Will need repeat CT chest imaging in 4-6 weeks - nephrology following * Delvin Mendenhall MD - 10/28/2024 11:30 AM CDT Nephrology Progress Note [facility] SUBJECTIVE Slowly improving. Bp soft. Guerrero draining clear urine. Over 7 litres of urine reported? OBJECTIVE Vitals: Vitals: 10/28/24 0430 10/28/24 0748 10/28/24 0830 10/28/24 0906 BP: 102/62 97/83 BP Location: Right arm Right arm Patient Position: Lying HOB 30 degrees Pulse: 80 80 83 Resp: 18 18 Temp: 36.7 ??C (98.1 ??F) 36.3 ??C (97.3 ??F) TempSrc: Oral Oral SpO2: 91% 95% 93% Weight: Height: Intake/Output Summary (Last 24 hours) at 10/28/2024 1130 Last data filed at 10/28/2024 0925 Gross per 24 hour Intake 1920 ml Output 7350 ml Net -5430 ml REVIEW OF SYSTEMS Review of Systems Constitutional: Negative. HENT: Negative. Eyes: Negative. Respiratory: Negative. Cardiovascular: Negative. Gastrointestinal: Negative. Genitourinary: Negative. Musculoskeletal: Negative. Skin: Negative. Allergic/Immunologic: Negative. Hematological: Negative. All other systems reviewed and are negative. PHYSICAL EXAM Physical Exam Constitutional: Appears well-developed. HENT: wnl Head: Normocephalic. Eyes: Pupils are equal, round, and reactive to light. Neck: Normal range of motion. Neck supple. Cardiovascular: Normal rate. Pulmonary/Chest: Effort normal and breath sounds normal. Abdominal: Soft. Musculoskeletal: Normal range of motion. Neurological: Alert, oriented. Skin: Skin is warm. Nursing note and vitals reviewed. MEDICATIONS Current Facility-Administered Medications: acetaminophen (TYLENOL) tablet 500 mg, 500 mg, oral, Q6H PRN, Luan Guillermo, DO, 500 mg at 10/27/242019 ampicillin-sulbactam (UNASYN) 3 g in sodium chloride 0.9% 100 mL IVPB, 3 g, intravenous, Q6H Leo CARDENAS Jude, MD, Stopped at 10/28/24 0603 [Held by Provider] aspirin enteric coated tablet 81 mg, 81 mg, oral, Daily, Namrata Spencer NP, 81 mg at 10/24/24 1001 atenoloL (TENORMIN) tablet 50 mg, 50 mg, oral, Daily, Namrata Spencer NP, 50 mg at 10/28/24905 atorvastatin (LIPITOR) tablet 20 mg, 20 mg, oral, Nightly, Namrata Spencer NP, 20 mg at 10/27/242019 calcitRIOL (ROCALTROL) capsule 0.25 mcg, 0.25 mcg, oral, Daily, Namrata Spencer NP, 0.25mcg at 10/28/24905 clorazepate (TRANXENE) tablet 7.5 mg, 7.5 mg, oral, BID PRN, Luan Guillermo, , 7.5 mg at 10/28/24 0449 dofetilide (TIKOSYN) capsule 125 mcg, 125 mcg, oral, BID, Namrata Spencer NP, 125 mcg at10/28/24 09 fenofibrate nanocrystallized (TRICOR) tablet 145 mg, 145 mg, oral, Daily, Namrata Spencer NP, 145 mg at 10/28/24 0906 fluticasone propionate (FLONASE) 50 mcg/actuation nasal spray 2 spray, 2 spray, each nostril, DailyPRN, Namrata Spencer NP furosemide (LASIX) 10 mg/mL injection 40 mg, 40 mg, intravenous, BID DIURETIC, Ryan Bailey MD ipratropium-albuteroL (DUO-NEB) 0.5-2.5 mg/3 mL nebulizer solution 3 mL, 3 mL, nebulization, Q4H While awake (RT), Namrata Spencer NP, 3 mL at 10/28/24 0830 levothyroxine (SYNTHROID) tablet 25 mcg, 25 mcg, oral, Daily - 0600, Namrata Spencer NP,25 mcg at 10/28/24 0531 magnesium sulfate 2 g/50 mL in water (premix) 2 g, 2 g, intravenous, Once, Ryan Bailey MD midodrine (PROAMATINE) tablet 10 mg, 10 mg, oral, TID AC, Delvin Mendenhall MD, 10 mg at 10/28/24 0754 ondansetron (ZOFRAN) injection 4 mg, 4 mg, intravenous, Q6H PRN, Namrata Spencer NP pantoprazole DR (PROTONIX) extended release tablet 40 mg, 40 mg, oral, Daily, Carla Jean MD,40 mg at 10/28/24 0906 potassium chloride ER (KLOR-CON) extended release tablet 20 mEq, 20 mEq, oral, Once, Ryan Bailey MD ramelteon (ROZEREM) tablet 8 mg, 8 mg, oral, Nightly PRN, Namrata Spencer NP, 8 mg at 10/27/242019 senna-docusate (PERICOLACE) 8.6-50 mg per tablet 1 tablet, 1 tablet, oral, BID, Luan Guillermo DO, 1 tablet at 10/28/24 0906 tamsulosin (FLOMAX) extended release capsule 0.4 mg, 0.4 mg, oral, Daily with dinner, Luan Guillermo DO, 0.4 mg at 10/27/24 1720 warfarin (COUMADIN) tablet 2 mg, 2 mg, oral, Once - 1800, Ryan Bailey MD Lab/Radiology/Diagnostic Review: Recent Results (from the past 24 hours) CBC with auto differential Collection Time: 10/28/24 4:13 AM Result Value Ref Range WBC 3.28 (L) 3.80 - 9.90 K/cumm Hgb 12.2 (L) 13.0 - 17.5 g/dL Hct 36.0 (L) 38.9 - 50.3 % Plt 115 (L) 150 - 400 K/cumm MPV 11.9 9.1 - 12.3 fL RBC 3.95 (L) 4.30 - 5.80 M/cumm MCV 91.1 81.3 - 96.4 fL MCH 30.9 27.1 - 33.3 pg MCHC 33.9 32.3 - 35.7 g/dL RDW CV 15.5 (H) 11.1 - 14.9 % RDW SD 51.6 (H) 35.7 - 48.1 fL NRBC abs 0.00 0.00 - 0.01 K/cumm Basic metabolic panel Collection Time: 10/28/24 4:13 AM Result Value Ref Range Sodium 127 (L) 135 - 145 mmol/L Potassium, pl 3.9 3.3 - 4.9 mmol/L Chloride 88 (L) 97 - 110 mmol/L CO2 37 (H) 22 - 32 mmol/L Anion gap 2 2 - 15 mmol/L BUN 37 (H) 6 - 25 mg/dL Creatinine 1.36 (H) 0.80 - 1.30 mg/dL Glucose 92 70 - 199 mg/dL Calcium 8.4 (L) 8.5 - 10.3 mg/dL Protime-INR Collection Time: 10/28/24 4:13 AM Result Value Ref Range PT 16.8 (H) 9.7 - 13.0 sec INR 1.54 (H) 0.90 - 1.20 Magnesium Collection Time: 10/28/24 4:13 AM Result Value Ref Range Magnesium 1.8 1.4 - 2.5 mg/dL Differential, auto Collection Time: 10/28/24 4:13 AM Result Value Ref Range Neutrophil abs 2.25 1.50 - 6.50 K/cumm Imm gran abs 0.01 0.00 - 0.10 K/cumm Lymphocyte abs 0.54 (L) 0.80 - 3.30 K/cumm Monocyte abs 0.39 0.20 - 0.80 K/cumm Eosinophil abs 0.08 0.00 - 0.50 K/cumm Basophil abs 0.01 0.00 - 0.10 K/cumm Neutrophil pct 68.6 % Imm gran pct 0.3 % Lymphocyte pct 16.5 % Monocyte pct 11.9 % Eosinophil pct 2.4 % Basophil pct 0.3 % eGFR Collection Time: 10/28/24 4:13 AM Result Value Ref Range eGFR 51 (L) >=60 mL/min/1.73 m2 XR Chest 1 View Result Date: 10/27/2024 Narrative: EXAMINATION: XR CHEST 1 VIEW HISTORY: The patient is an 84-year-old male who presents with shortness of breath. Comparison made with the previous study dated 10/26/2024. TECHNIQUE: AP portable view of the chest. FINDINGS: Cardiomegaly with aortic atherosclerosis. Findings of pulmonary vascular congestion. No focal consolidation. Impression: Cardiomegaly with pulmonary vascular congestion. Electronically signed by: Coco Youngblood M.D. XR Chest 1 View Result Date: 10/26/2024 Narrative: EXAMINATION: XR CHEST 1 VIEW HISTORY: The patient is a 84-year-old male who presents with shortness of breath. Comparison made with the previous study dated 10/24/2024. TECHNIQUE: AP portable view of the chest. FINDINGS: Cardiomegaly with aortic atherosclerosis. Findings of pulmonary vascular congestion. No focal infiltrate seen. Impression: Cardiomegaly with pulmonary vascular congestion. Electronically signed by: Coco Youngblood M.D. XR Chest 1 Vw Portable Result Date: 10/24/2024 Narrative: EXAMINATION: XR CHEST 1 VIEW HISTORY: The patient is an 84-year-old male who presents with hypoxia. Comparison made with the previous study dated 10/23/2024. TECHNIQUE: AP portable view ofthe chest. FINDINGS: Cardiomegaly with aortic atherosclerosis. Findings of pulmonary vascular congestion. Right lower lobe infiltrate with the remainder of the lungs being clear. Impression: Findings as described above. Electronically signed by: Coco Youngblood M.D. XR Chest 1 Vw Portable Result Date: 10/23/2024 Narrative: Examination: XR CHEST 1 VIEW Date: 10/23/2024 7:20 AM History: effusion Comparison: 10/18/2024. Findings: Normal heart size, sternotomy and left AICD is again seen. A small right effusion andmoderate right lower lobe infiltrate with patchy consolidation is unchanged. Impression: Persistent right effusion with patchy right lower lobe consolidation. Electronically signed by: Perla Cowart M.D. CT Abdomen Pelvis WO Contrast Result Date: 10/21/2024 Narrative: EXAMINATION: CT ABDOMEN PELVIS WO CONTRAST DATE: 10/21/2024 5:35 AM HISTORY: Weight loss,unintended TECHNIQUE: Images through the abdomen and pelvis were obtained without contrast. FINDINGS: There are bilateral pleural effusions. There is bilateral lower lobe atelectasis. 26 mm left hepatic cyst is present. The patient is status post cholecystectomy. There is no biliary ductal dilatatio n. The spleen, pancreas and adrenal glands are grossly normal on this noncontrast examination. There is mild bilateral perinephric stranding. There is no hydronephrosis, hydroureter or renal calculus. There are several small exophytic left renal lesions which cannot be further characterized on this noncontrast examination. There is no free air or fluid. There is no bowel obstruction. The appendixis not identified with confidence. There are multiple colonic diverticula. There is a 43 mm infrarenal abdominal aortic aneurysm. There are postoperative changes of the aortobiiliac bypass. Radiationtherapy changes are noted in the prostate. Impression: Limited study secondary to lack of intravenous contrast. No acute intra-abdominal abnormality. Colonic diverticulosis. Bilateral pleural effusions and bilateral lower lobe atelectasis. 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 Electronically signed by: Neel Morrison M.D. Transthoracic Echo (TTE) Complete W Doppler/CF Result Date: 10/21/2024 Narrative: [place] [address] Echocardiogram Report Patient Name: IAN MONSALVE H : 1940 Study Date: 10/20/2024 12:11:53 PM Gender: M Tech: Location: [address] Provider: CARLA JEAN Height(Cm): 170 BSA: 1.93 Weight(Kg): 79 Heart Rate: 80 BP: 90 / 55 Quality: Good Order Provider: CARLA JEAN PROCEDURES: Echocardiographic Report: Transthoracic echocardiogram with complete 2D, M-Mode, color Doppler examination and contrast. INDICATIONS: Congestive Heart Failure. MEASUREMENTS: 2D/MM Value Ra nge Doppler Value Range EF Mod BP 37 [...] Moderate enlargement of right ventricle. Severe right ventricul ar hypokinesis. Abnormal (paradoxical) septal motion consistent with [...] measured at 37 %. Moderate RV enlargement withsevere hypokinesis. Abnormal (paradoxical) septal motion consistent with RV volume overload and/or elevated RV end-diastolic pressure. Mild biatrial enlargement. Linear artifact in right atrium. Normal structure of the mitral valve. Mild mitral valve regurgitation. Aortic cusps appear mildly sclerotic. No evidence of hemodynamically significant aortic stenosis by Doppler. Lozuwxic-op-tbfczs pulmonary hypertension, estimated RVSP 60 mmHg. Moderate tricuspid regurgitation. Electronically Signed By: Clive Godfrey MD, [facility] 10/21/2024 6:43:00 AM CDT US Retroperitoneal Complete Result Date: 10/19/2024 Narrative: EXAMINATION: RENAL ULTRASOUND Date: 10/19/2024 2:20 PM History: Kidney failure, acute Comparison: None. Findings: The right kidney measures 10.5 x 4.7 x 4.0 cm . Parenchymal echogenicity iswithin normal limits. There is no hydronephrosis, calculus, or perinephric fluid. Possible corticalmass in the right kidney measuring 1.4 x 1.3 x 1.4 cm The left kidney measures 10.6 x 5.0 x 4.0 cm.Parenchymal echogenicity is within normal limits. There is no hydronephrosis, calculus or perinephric fluid. Simple cysts measuring up to 1.9 cm in the left kidney. The bladder Is unremarkable. Prostate is enlarged measuring 4.2 x 4.6 x 5.3 cm Impression: 1. Possible mass in the right kidney measuring up to 1.4 cm. Suggest MRI of the kidneysfor further evaluation. 2. Enlarged prostate. Electronically signed by: Rajendra Oh II, D.O. CT Chest WO Contrast Result Date: 10/18/2024 Narrative: EXAMINATION: Computed tomography of the chest without intravenous contrast HISTORY: Abnormal chest radiograph. TECHNIQUE: Transaxial computed tomographic images of the chest were obtained without intravenous contrast according to the standard protocol. COMPARISON: Chest radiograph dated same day. FINDINGS: There is a moderately sized right pleural effusion with fluid in the right majorfissure and right upper, middle, and lower lobe consolidations most notable in the right lower lobe. Small left pleural effusion with left lower lobe atelectasis. Severe centrilobular emphysematous changes. Poststernotomy changes. Mild mediastinal lymphadenopathy with largest mediastinal node measur ing 1.1 cm in short axis dimension. Nodules in the left upper lobe, largest measuring approximately1.1 x 0.5 cm. Follow-up suggested. Main pulmonary [...] may represent pseudo-thickening from underdistention versus gastritis. Impression: 1. Moderately sized right pleural effusion with [...] Electronically signed by: Rajendra Oh II, D.O. ECG 12 lead Result Date: 10/18/2024 Narrative: Vent Rate: 80 bpm RR Interval: 749 msec RI Interval: 140 msec QRS Duration: 164 msec QT Interval: 377 msec QTC Interval: 412 msec P-R-T [place]: -52 - 226 - 226 degrees IMPRESSION: ELECTRONICVENTRICULAR PACEMAKER ST DEPRESSION, CONSIDER SUBENDOCARDIAL INJURY [0.1+ mV ST DEPRESSION] ABNORMAL ECG No change compared to prior EKG Electronically Signed By: Emilio Ratliff MD [facility] XR Chest 1 Vw Portable Result Date: 10/18/2024 Narrative: EXAMINATION: XR CHEST 1 VIEW DATE: 10/18/2024 11:20 AM INDICATION: Shortness of breath. COMPARISON: 02/23/2023. Impression: ICD leads are intact. Post sternotomy changes are noted. Cardiac mediastinal silhouettewithin normal limits. There is a small right pleural effusion. Opacities in the right lower lobe suggestive of pneumonia, increased from prior. Follow-up suggested to ensure resolution. No acute osseous abnormality. Electronically signed by: Rajendra Oh II, D.O. ASSESSMENT/PLAN CKD 3b CRS. CHF/dyspnea. R LL PNA. MBD. ICD status. RECOMMENDATIONS IV diuresis. CKD washburn. Overall improved. -10/20, BP low, start midodrine, IV ABX, decrease diuresis, CT scan kidneys. -10/21, urinary retention, ROSA worse, guerrero placed, will follow, CT scan to be reviewed. -10/22, CT scan kidneys shows exophytic cysts, will do MRI as o/p, continue guerrero, ROSA better, good UO, no new changes, difficult guerrero yesterday. -Cr 1.7 and baseline, dyspnea better, gross hematuria, difficult guerrero, traumatic hematuria, Needs CBI, will reconsult Urology. -cr is baseline, guerrero irrigation, likely needs thoracentesis, for both diagnostic and therapeutic purposes, avss, lytes stable. -CR is stable, cxr better, can switch to po diuretics tomorrow. -stable labs, BP soft, OT/PT, CMR eval, same tx, hold diuresis, po midodrine, continue guerrero, will retain on IP dc. Renal mass will be evaluated as o/p. I can be reached at [phone] with any concerns. Thank you Ryan Bailey MD for the consult. Delvin Mendenhall MD [employer] [phone] * Maribell Rob LAUNDRY MACHINE TENDER - 10/28/2024 10:56 AM CDT Daily Progress SUBJECTIVE: Mr. Monsalve is sitting up in the chair. Feeling lot better, on 1L O2 NC. Denies chest pain. Still has guerrero in place, no hematuria. OBJECTIVE: Vitals: 10/28/24 0430 10/28/24 0748 10/28/24 0830 10/28/24 0906 BP: 102/62 97/83 BP Location: Right arm Right arm Patient Position: Lying HOB 30 degrees Pulse: 80 80 83 Resp: 18 18 Temp: 36.7 ??C (98.1 ??F) 36.3 ??C (97.3 ??F) TempSrc: Oral Oral SpO2: 91% 95% 93% Weight: Height: Intake/Output Summary (Last 24 hours) at 10/28/2024 1056 Last data filed at 10/28/2024 0925 Gross per 24 hour Intake 1920 ml Output 7350 ml Net -5430 ml Scheduled Medications Medication Dose Route Frequency ampicillin-sulbactam (UNASYN) 3 g in sodium chloride 0.9% 100 mL IVPB 3 g intravenous Q6H THERESA [Held by Provider] aspirin enteric coated tablet 81 mg 81 mg oral Daily atenoloL (TENORMIN) tablet 50 mg 50 mg oral Daily atorvastatin (LIPITOR) tablet 20 mg 20 mg oral Nightly calcitRIOL (ROCALTROL) capsule 0.25 mcg 0.25 mcg oral Daily dofetilide (TIKOSYN) capsule 125 mcg 125 mcg oral BID fenofibrate nanocrystallized (TRICOR) tablet 145 mg 145 mg oral Daily furosemide (LASIX) 10 mg/mL injection 40 mg 40 mg intravenous BID DIURETIC ipratropium-albuteroL (DUO-NEB) 0.5-2.5 mg/3 mL nebulizer solution 3 mL 3 mL nebulization Q4H Whileawake (RT) levothyroxine (SYNTHROID) tablet 25 mcg 25 mcg oral Daily - 0600 magnesium sulfate 2 g/50 mL in water (premix) 2 g 2 g intravenous Once midodrine (PROAMATINE) tablet 10 mg 10 mg oral TID AC pantoprazole DR (PROTONIX) extended release tablet 40 mg 40 mg oral Daily potassium chloride ER (KLOR-CON) extended release tablet 20 mEq 20 mEq oral Once senna-docusate (PERICOLACE) 8.6-50 mg per tablet 1 tablet 1 tablet oral BID tamsulosin (FLOMAX) extended release capsule 0.4 mg 0.4 mg oral Daily with dinner warfarin (COUMADIN) tablet 2 mg 2 mg oral Once - 1800 LABS: Recent Labs Lab Units 10/28/24 0413 WBC K/cumm 3.28* HEMOGLOBIN g/dL 12.2* HEMATOCRIT % 36.0* PLATELETS K/cumm 115* Recent Labs Lab Units 10/28/24 0413 SODIUM mmol/L 127* POTASSIUM PLASMA mmol/L 3.9 CHLORIDE mmol/L 88* CO2 mmol/L 37* ANIONGAP mmol/L 2 GLUCOSE mg/dL 92 BUN SERUM mg/dL 37* CREATININE mg/dL 1.36* CALCIUM mg/dL 8.4* No results found for: BNP No results found for: TROPONINI Exam General: in no apparent distress Neuro: Alert and oriented x 3, moves all extremities well Lungs: symmetric, unlabored, clear to auscultation bilaterally Heart: S1,S2, regular rate & rhythm, no murmurs, rubs, or gallops Abdomen: soft, non-tender, non-distended, bowel sounds present Extremities: no LE edema, palpable peripheral pulses BL ASSESSMENT/PLAN: Acute hypoxemic respiratory failure Likely 2/2 CHF exacerbation/pneumonia -Currently on oxygen 1 L NC -Continue O2. Wean as tolerated -Iv antibiotics -Pulmonary consult Acute on chronic systolic HF -proBNP 8,636 on admission -Pleural effusion on the CT -On lasix 40 mg IV BID. Diuretic management per nephrology. Monitor renal function and lytes,I/o's -Continue atenolol Ischemic cardiomyopathy -S/p BIV ICD implantation History of V-tach Atrial fibrillation -S/p ablation; paced rhythm on EKG -Continue Tikosyn and atenolol -Warfarin dosing per pharmacy -Keep K>/4,mag>/2 CAD -S/p CABG -stable with no angina -Continue ASA, statins Hypertension -Bp stable/controlled Hyperlipidemia -Continue statin Hypothyroidism -Continue levothyroxine CKD -Creatinine 1.36 -Nephrology is following Maribell Rob NP [facility] 10/28/2024 10:56 AM * Ryan Bailey MD - 10/28/2024 10:30 AM CDT General Medicine Daily Progress Patient is a 84 y.o. male who presented with a chief complaint of shortness of breath. Arrival Vitals Temp 10/18/24 1052 36.4 ??C (97.6 ??F) Pulse 10/18/24 1030 80 Resp 10/18/24 1040 24 BP 10/18/24 1030 121/81 SpO2 10/18/24 1030 99 % Temp src 10/18/24 1052 Axillary Heart Rate Source 10/20/24 2103 Monitor Patient Position 10/18/24 1631 Lying BP Location 10/18/24 1631 Right arm FiO2 (%) 10/20/24 1423 40 % Length of stay: 10 days Hospital Course : Interval History: Remains on O2 via nasal cannula Seen with , daughter and son-in-law at bedside Discussed lab findings with patient and family Subjective: States he feels disappointed at not being discharged today. Objective: Vitals: 24hr Min/Max: Temp Min: 36.3 ??C (97.3 ??F) Max: 36.9 ??C (98.4 ??F) Pulse Min: 77 Max: 83 BP Min: 97/83 Max: 143/71 Resp Min: 17 Max: 24 SpO2 Min: 90 % Max: 95 % Most Recent : Vitals: 10/28/24 0430 10/28/24 0748 10/28/24 0830 10/28/24 0906 BP: 102/62 97/83 BP Location: Right arm Right arm Patient Position: Lying HOB 30 degrees Pulse: 80 80 83 Resp: 18 18 Temp: 36.7 ??C (98.1 ??F) 36.3 ??C (97.3 ??F) TempSrc: Oral Oral SpO2: 91% 95% 93% Weight: Height: I/O last 2 completed shifts: In: 1920 [P.O.:1700; IV Piggyback:220] Out: 8050 [Urine:8050] I/O this shift: In: - Out: 800 [Urine:800] Physical Exam: Gen: In no apparent distress Neuro: Alert, oriented in time place and person. Pulmonary: Not dyspneic. No crackles or rhonchi. Cardiovascular: HS 1, 2 . regular rhythm. No murmurs heard. Pitting pedal edema up to the mid meier Current Meds: ampicillin-sulbactam, 3 g, intravenous, Q6H THERESA [Held by Provider] aspirin, 81 mg, oral, Daily atenoloL, 50 mg, oral, Daily atorvastatin, 20 mg, oral, Nightly calcitRIOL, 0.25 mcg, oral, Daily dofetilide, 125 mcg, oral, BID fenofibrate nanocrystallized, 145 mg, oral, Daily furosemide, 40 mg, intravenous, Daily ipratropium-albuteroL, 3 mL, nebulization, Q4H While awake (RT) levothyroxine, 25 mcg, oral, Daily - 0600 magnesium sulfate, 2 g, intravenous, Once midodrine, 10 mg, oral, TID AC pantoprazole DR, 40 mg, oral, Daily potassium chloride ER, 20 mEq, oral, Once senna-docusate, 1 tablet, oral, BID tamsulosin, 0.4 mg, oral, Daily with dinner warfarin, 2 mg, oral, Once - 1800 Continuous Medications Medication Dose Last Rate PRN Medications Medication Dose Route Frequency Last Admin acetaminophen (TYLENOL) tablet 500 mg 500 mg oral Q6H PRN 500 mg at 10/27/242019 clorazepate (TRANXENE) tablet 7.5 mg 7.5 mg oral BID PRN 7.5 mg at 10/28/24 0449 fluticasone propionate (FLONASE) 50 mcg/actuation nasal spray 2 spray 2 spray each nostril Daily PRN ondansetron (ZOFRAN) injection 4 mg 4 mg intravenous Q6H PRN ramelteon (ROZEREM) tablet 8 mg 8 mg oral Nightly PRN 8 mg at 10/27/242019 [] I have utilized all available immediate resources to obtain, update, or review the patient's current medications (including all prescriptions, [id number] products, herbals, cannabis/cannabidiol products, and vitamin/mineral/dietary (nutritional) supplements). Lab/Radiology/Diagnostic Review: Recent Labs Lab Units 10/28/2441210/27/2462510/26/24627 WBC K/cumm 3.28* 3.11* 3.52* HEMOGLOBIN g/dL 12.2* 12.1* 12.0* HEMATOCRIT % 36.0* 36.1* 35.9* MCV fL 91.1 92.1 91.8 PLATELETS K/cumm 115* 99* 94* Recent Labs Lab Units 10/28/2441210/27/2462510/26/2462710/23/24 0335 10/22/24 0354 SODIUM mmol/L 127* 127* 129* < > 134* POTASSIUM PLASMA mmol/L 3.9 3.6 3.9 < > 4.3 CHLORIDE mmol/L 88* 87* 89* < > 95* CO2 mmol/L 37* 36* 33* < > 33* ANIONGAP mmol/L 2 4 7 < > 6 GLUCOSE mg/dL 92 95 94 < > 101 BUN SERUM mg/dL 37* 37* 43* < > 47* CREATININE mg/dL 1.36* 1.40* 1.65* < > 1.99* CALCIUM mg/dL 8.4* 8.3* 8.5 < > 8.8 MAGNESIUM mg/dL 1.8 -- -- -- 2.1 < > = values in this interval not displayed. Recent Labs Lab Units 10/28/2441210/27/2462510/26/24627 INR 1.54* 1.49* 1.55* No results found for: BNP No results found for: TROPONINT Estimated Creatinine Clearance: 37.8 mL/min (A) (by C-G 65 yr and older- minimum SCr 0.8 based on SCr of 1.36 mg/dL (H)). Patient Active Problem List Diagnosis Date Noted Acute congestive heart failure, unspecified heart failure type (HCC) 10/18/2024 Palpitations 02/23/2023 All lab results stated above were reviewed by me. [] I confirmed that the patient's Advance Care Plan is present, code status is documented, or surrogate decision maker is listed in the patient's medical record. Assessment/Plan: Hyponatremia: Possibly due to hypovolemia. [place] held by Nephrology. Repeat tolvaptan. Repeat BMP in a.m. Acute hypoxic respiratory failure on admission. Differential includes CHF exacerbation, pneumonia. Currently on 2L NC - titrate as able. CXR - Persistent right effusion with patchy right lower lobe consolidation. 10/24: Repeat x-ray showing pulmonary vascular congestion right lower lobe infiltrate. Request home O2 evaluation. Congestive heart failure exacerbation on admission. BNP 8636. 2D echo performed- EF 37%, Mod-Severepulmonary htn, Diastolic dysfunction present. On IV Lasix daily, now held by Cardiology - monitor UOP. Cardiology service consulted. Initiate GDMT as appropriate. Moderately sized right pleural effusion with consolidations in the right upper, right lower, and right middle lobes suggestive of multifocal pneumonia, on admission CT. Respiratory PCR negative. Blood cultures NGTD. Strep pneumoniae and Legionella antigens are negative. Was on azithromycin, Rocephin starting on 10/18/2024; on 10/19/2024 Rocephin was changed to Unasyn - continue unasyn. Per pulmonology, thoracentes no longer needed at this time - coumadin resumed.repeat CXR PVC, RLL infiltrate. Will need repeat imaging in 4-6 weeks otherwise Multiple left upper lobe pulmonary nodules largest measuring 1.1 cm, on admission CT. Dilated main pulmonary artery suggestive of pulmonary arterial hypertension, on admission CT. Severe centrilobular emphysematous changes, on admission CT. Nonspecific mild gastric wall thickening may represent pseudo-thickening from underdistention versus gastritis, on admission CT. On PPI. Atrial fibrillation, currently paced. Previously on digoxin. Now On Tikosyn. Coumadin resumed. Monitor INR Hyperlipidemia: Continue atorvastatin Hypothyroidism: Synthroid. CAD. S/p coronary artery bypass graft x two - left internal mammary artery to the left anterior descending, left radial artery to the posterior descending artery, on 02/24/1997. History of VT, status post ablation on 12/31/2015, 04/08/2016 EP study. Hypotension - improved with midodrine - Try to avoid IVF in setting of volume overload. Right Kidney Mass - US retroperitoneum - Right kidney mass up to 1.4 cm - MRI recommended, patient with defibrillator - not able to obtain an MRI. Will discuss with nephrology regarding recommendations for further evaluation. Urine retention - reported abdominal pain - CT imaging performed - No acute findings noted. On review - bladder looked distended. Bladder scan done with 600 cc - straight cath done. Q6 hour bladder scans - if additional straight cath needed, recommend guerrero placement. Guerrero catheter exchanged on 10/22 due to clotting and inability to empty. Tamsulosin initiated. Urology following - recommending discharging patient with guerrero in place to allow bladder decompression. Continue Flomax and follow up as outpatient. Gross Hematuria, persistent - likely 2/2 trauma from guerrero insertion + being on blood thinners. Urology consulted. Held warfarin, now resumed. Resolved Constipation -started on bowel regimen. +m BM ROSA on CKD: Renal function improved Avoid nephrotoxic agents as able. Nephrology following - appreciate recommendations Thrombocytopenia : Stable. Monitor Nonspecific troponin elevation PT and OT as tolerated DVT prophylaxis: Coumadin GI prophylaxis: Proton Anticipated DC home with home health PT and OT in 1-2 days Hyponatremia. Monitor and treat underlying etiology. Pancytopenia. Monitor counts. Monitor for bleeding. DVT prophylaxis: given. Code status: LIMITED - No CPR Ryan Bailye MD [facility] Pager #: [phone] This note is dictated and transcribed by [employer] Direct direct software. Timber Setter variances may occur. Despite proof reading, typographical errors may occur. * Kat Ontiveros, LONG CHAIN DYEING MACHINE OPERATOR - 10/28/2024 10:14 AM CDT Physical Therapy PT PROGRESS NOTE PATIENT'S NAME:Ian Monsalve :1940 AGE:84 y.o. ROOM:[facility]/[place] [address] No past medical history on file. Past Surgical History: Procedure Laterality Date CHOLECYSTECTOMY Patient Active Problem List Diagnosis Palpitations Acute congestive heart failure, unspecified heart failure type (HCC) TIME IN: 0938 TIME OUT: 1016 SUBJECTIVE Ok MENTAL STATUS/ORIENTATION: alert and oriented x4 PAIN: Pre-therapy pain level: 0/10 Pain location: n/a Pain intervention: n/a Post-therapy pain level/response to intervention: 0/10 OBJECTIVE PRECAUTIONS: fall, bed / chair alarm, and PAMUNKEY APPEARANCE/POSTURE: supine in bed 2 lpm O2 guerrero catheter alarm on and in place call light next to patient VITAL SIGNS: Resting heart rate: 78 Post-activity heart rate: 82 Resting O2 sat: 94% Post-activity O2 sat: 86% amb with 3 lpm O2 MOBILITY DOCUMENTATION: Bed Mobility/Transfers: supine to sit modified independent, sit to/from stand modified independent Gait: amb 200' w/w SBA slow TREATMENT: Sitting le ex x 10 reps Incentive spirometer 5 reps to 500 ml APPEARANCE/POSTURE (end of session): sitting in bed side chair alarm on and in place, 1 lpm O2 appearance otherwise unchanged from PT arrival in room HANDOFF: Verbal handoff given to nurse Vernell . ALARMS: Chair alarm in place / active EDUCATION:therapeutic exercises , gait training , strengthening, safety , and pursed lip breathing RESPONSE TO EDUCATION: demonstrated understanding, needs reinforcement, and verbalizes understanding ASSESSMENT Activity tolerance/response to P.T.: patient dwayne tx session w/o complaints, patient amb 200' with 3lpm O2 w/o c/o SOB with decrease in O2 sats to 86% Barriers to learning: Physical Barriers to discharge: Decreased endurance and Long standing deficits Patient continues progressing toward previously set goals which remain appropriate at this time. PLAN PT Discharge Recommendations this date: PT Recommendation/Plan: Home with 24 hour supervision, Home Health PT Patient at high risk for: Falls, Injury due to reduced functional status, Injury due to balance deficits PT Frequency during current admission: 3-5x/wk CARE PLAN Multi-Disciplinary Problems (from Physical Therapy) [place] [facility] [place]: 10/19/24 Goal Start Date Expected End Date End Date PT [facility] 1 10/19/24 10/27/24 -- Goal Details: Patient will transfer supine to/from sit with modified indep. Progressing Goal Start Date Expected End Date End Date PT [facility] 2 10/19/24 10/27/24 -- Goal Details: Patient will transfer sit to/from stand with modified indep. Completed Goal Start Date Expected End Date End Date PT [facility] 3 10/19/24 10/27/24 -- Goal Details: Patient will amb 75' with wh walker and modified indep. Progressing Goal Start Date Expected End Date End Date [facility] 4 10/19/24 10/27/24 -- Goal Details: Patient will negotiate 1 step with appropriate method and cg assist. Progressing Goal Start Date Expected End Date End Date [facility] 5 10/19/24 10/27/24 -- Goal Details: Patient will perform ZOILA LE ROM ex with SBA. Progressing If this is the last note, please consider this the discharge summary. Cosigned by Zuri Edmonds, PT at 10/28/2024 12:40 PM CDT * Deborah Mendiola, [facility] - 10/28/2024 7:23 AM CDT Pharmacokinetic Consult - Anticoagulation Dosing Ian Monsalve is a 84 y.o. male who has been consulted for pharmacy warfarin dosing and monitoring. Current Hematologic Labs INR Date Value Ref Range Status 10/28/2024 1.54 (H) 0.90 - 1.20 Final Comment: Interpretive data Oral anticoagulant therapeutic ranges: Venous thromboembolism prophylaxis or treatment: 2.0-3.0 CARDIOLOGY Standard range: 2.0-3.0 High-intensity range: 2.5-3.5 Refer to indication-specific guidelines for appropriate target ranges for prosthetic heart valve replacement. Current interpretive data was last revised on 2019. 10/27/2024 1.49 (H) 0.90 - 1.20 Final Comment: Interpretive data Oral anticoagulant therapeutic ranges: Venous thromboembolism prophylaxis or treatment: 2.0-3.0 CARDIOLOGY Standard range: 2.0-3.0 High-intensity range: 2.5-3.5 Refer to indication-specific guidelines for appropriate target ranges for prosthetic heart valve replacement. Current interpretive data was last revised on 2019. 10/26/2024 1.55 (H) 0.90 - 1.20 Final Comment: Interpretive data Oral anticoagulant therapeutic ranges: Venous thromboembolism prophylaxis or treatment: 2.0-3.0 CARDIOLOGY Standard range: 2.0-3.0 High-intensity range: 2.5-3.5 Refer to indication-specific guidelines for appropriate target ranges for prosthetic heart valve replacement. Current interpretive data was last revised on 2019. Hgb Date Value Ref Range Status 10/28/2024 12.2 (L) 13.0 - 17.5 g/dL Final Hct Date Value Ref Range Status 10/28/2024 36.0 (L) 38.9 - 50.3 % Final Plt Date Value Ref Range Status 10/28/2024 115 (L) 150 - 400 K/cumm Final No results found for: PTT Assessment Patient was admitted on warfarin with a dose of 2 mg on Thursday and 1 mg all other days (Thu to Thu). Patient is on warfarin for an indication of atrial fibrillation. Goal INR is 2-3. Potential interacting medications: unasyn (could potentially increase INR) Plan Date INR Dose given Comments 10/18 2mg Patient already took dose at home. Daily INR ordered 10/19 3.14 1mg Slightly above goal will give home dose today and may need to decrease for further doses 10/20 3.12 1mg 10/21 2.34 1mg 10/22 2.56 1mg 10/23-10/24 on hold 10/25 1.65 2 mg Resume home dose 10/26 1.55 2 mg Stay with 2mg until INR starts to go up 10/27 1.49 2 mg 10/28 1.54 2 mg Will continue to follow patient's clinical progress daily. Deborah Mendiola RPh * Kat Ontiveros, [employer] - 10/27/2024 4:24 PM CDT Physical Therapy PT PROGRESS NOTE PATIENT'S NAME:Ian Monsalve :1940 AGE:84 y.o. ROOM:[place] [id number] No past medical history on file. Past Surgical History: Procedure Laterality Date CHOLECYSTECTOMY Patient Active Problem List Diagnosis Palpitations Acute congestive heart failure, unspecified heart failure type (HCC) TIME IN: 1601 TIME OUT: 1641 SUBJECTIVE Patient agreeable to therapy MENTAL STATUS/ORIENTATION: alert and cooperative PAIN: Pre-therapy pain level: 0/10 Pain location: n/a Pain intervention: n/a Post-therapy pain level/response to intervention: 0/10 OBJECTIVE PRECAUTIONS: fall, bed / chair alarm, and PAMUNKEY APPEARANCE/POSTURE: supine in bed 1 lpm O2, guerrero catheter in place, call light next to patient alarm on and in place VITAL SIGNS: Resting heart rate: 79 Post-activity heart rate: 84 Resting O2 sat: 94% with 1 lpm Post-activity O2 sat: 84% amb with 2 lpm O2 MOBILITY DOCUMENTATION: Bed Mobility/Transfers: supine to /from sit SBA, sit to/from stand SBA Gait: amb 200' w/w SBA TREATMENT: Sat EOB good sitting balance at end of tx session for breathing tx with respiratory therapy Performed incentive spirometer 10 reps to 500ml and 5 reps to 1000ml APPEARANCE/POSTURE (end of session): supine in bed appearance otherwise unchanged from PT arrival in room HANDOFF: Verbal handoff given to Thy. ALARMS: Bed alarm in place / active EDUCATION:functional transfer training, gait training , safety , and pursed lip breathing RESPONSE TO EDUCATION: demonstrated understanding, needs reinforcement, and verbalizes understanding ASSESSMENT Activity tolerance/response to P.T.: patient dwayne tx session w/o complaints, able to amb 200' w/w SBA with 2 lpm , O2 sats 84% post amb, patient performs PLB Barriers to learning: Physical Barriers to discharge: Decreased endurance and Long standing deficits Patient continues progressing toward previously set goals which remain appropriate at this time. PLAN PT Discharge Recommendations this date: PT Recommendation/Plan: Home with 24 hour supervision, Home Health PT Patient at high risk for: Falls, Injury due to reduced functional status, Injury due to balance deficits PT Frequency during current admission: 3-5x/wk CARE PLAN Multi-Disciplinary Problems (from Physical Therapy) Active Problems Problem: [place] [facility] [place]: 10/19/24 Goal Start Date Expected End Date End Date PT [facility] 1 10/19/24 10/27/24 -- Goal Details: Patient will transfer supine to/from sit with modified indep. Progressing Goal Start Date Expected End Date End Date PT [facility] 2 10/19/24 10/27/24 -- Goal Details: Patient will transfer sit to/from stand with modified indep. Progressing Goal Start Date Expected End Date End Date PT [facility] 3 10/19/24 10/27/24 -- Goal Details: Patient will amb 75' with wh walker and modified indep. Progressing Goal Start Date Expected End Date End Date PT [facility] 4 10/19/24 10/27/24 -- Goal Details: Patient will negotiate 1 step with appropriate method and cg assist. Progressing Goal Start Date Expected End Date End Date PT [facility] 5 10/19/24 10/27/24 -- Goal Details: Patient will perform ZOILA LE ROM ex with SBA. Progressing If this is the last note, please consider this the discharge summary. Cosigned by Emmanuel Ny, PT at 10/28/2024 7:42 AM CDT * Vishnu Suggs MD - 10/27/2024 3:50 PM CDT Pulmonary Daily Progress Chief complaint/reason for consult: New O2 requirement, Pulmonary nodules, pulmonary hypertension . Interval History: Resting comfortably in chair On 2L NC Afebrile Pt voices no new complaints at this time Presenting History: 84 y/o CM who presented to the ED on 10/18/24 with complaints of shortness of breath that had been worsening over the last week. He was reportedly satting 70% on room air when EMSarrived. 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 States he has been having increased BAH. Does have cough at times that is productive of clear sputum. Started smoking age 12 and quit in 1996, smoked up to 1.5 ppd for 44 years, giving a 66 pack year hx. He has been on amiodarone in the past but not for sometime. 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 No service. CT Chest 10/18/24: Very severe emphysematous changes, moderate right pleural effusion, lung nodules Carries a hx of atrial fibrillation s/p multiple ablations, HFrEF, ischemic cardiomyopathy s/p BiVICD, CKD, CAD s/p CABG, Allergies: Allergies Allergen Reactions Trazodone Hcl Unknown Morphine Hydrocodone Unknown Lunesta [Eszopiclone] Other (See comments) Gave him crazy dreams Tramadol Nausea only Vicodin [Hydrocodone-Acetaminophen] Nausea only Medications: Scheduled Meds:ampicillin-sulbactam, 3 g, intravenous, Q6H THERESA [Held by Provider] aspirin, 81 mg, oral, Daily atenoloL, 50 mg, oral, Daily atorvastatin, 20 mg, oral, Nightly calcitRIOL, 0.25 mcg, oral, Daily dofetilide, 125 mcg, oral, BID fenofibrate nanocrystallized, 145 mg, oral, Daily furosemide, 40 mg, intravenous, Daily ipratropium-albuteroL, 3 mL, nebulization, Q4H While awake (RT) levothyroxine, 25 mcg, oral, Daily - 0600 midodrine, 10 mg, oral, TID AC pantoprazole DR, 40 mg, oral, Daily senna-docusate, 1 tablet, oral, BID tamsulosin, 0.4 mg, oral, Daily with dinner warfarin, 2 mg, oral, Once - 1800 Continuous Infusions: PRN Meds:. acetaminophen clorazepate fluticasone propionate ondansetron ramelteon ROS Above review of system reviewed on 10/27/2024 Vitals: Vitals: 10/27/24 0455 10/27/24 0813 10/27/24 0924 10/27/24 1531 BP: 95/64 105/72 117/57 BP Location: Left arm Left arm Left arm Patient Position: HOB 30 degrees HOB 30 degrees Pulse: 79 80 80 Resp: 19 20 18 Temp: 36.4 ??C (97.5 ??F) 36.9 ??C (98.4 ??F) TempSrc: Oral Oral SpO2: 93% 95% 90% Weight: Height: Temp (24hrs), Av.6 ??C (97.9 ??F), Min:36.4 ??C (97.5 ??F), Max:36.9 ??C (98.4 ??F) Intake/Output Summary (Last 24 hours) at 10/27/2024 1550 Last data filed at 10/27/2024 1321 Gross per 24 hour Intake 160 ml Output 3825 ml Net -3665 ml Physical Exam Vitals and nursing note reviewed. Constitutional: General: He is not in acute distress. Appearance: He is well-developed. HENT: Head: Normocephalic and atraumatic. Comments: Hard of hearing Nose: Nose normal. Mouth/Throat: Mouth: Mucous membranes are moist. Eyes: Conjunctiva/sclera: Conjunctivae normal. Cardiovascular: Rate and Rhythm: Normal rate and regular rhythm. Heart sounds: No murmur heard. Pulmonary: Effort: Pulmonary effort is normal. No respiratory distress. Breath sounds: Normal breath sounds. No stridor. No wheezing, rhonchi or rales. Abdominal: General: Bowel sounds are normal. Palpations: Abdomen is soft. Musculoskeletal: Right lower leg: Edema present. Left lower leg: Edema present. Skin: General: Skin is warm and dry. Neurological: General: No focal deficit present. Mental Status: He is alert. Psychiatric: Mood and Affect: Mood normal. Behavior: Behavior normal. Lab/Radiology/Diagnostic Review: Labs: Recent Labs Lab Units 10/27/24 0610/26/24 0628 10/25/24 0658 WBC K/cumm 3.11* 3.52* 3.54* HEMOGLOBIN g/dL 12.1* 12.0* 12.9* HEMATOCRIT % 36.1* 35.9* 38.5* PLATELETS K/cumm 99* 94* 91* NEUTROS PCT % 67.5 67.7 72.6 LYMPHS PCT % 17.7 17.0 13.0 MONOS PCT % 11.3 11.6 11.0 EOS PCT % 2.9 2.8 2.5 Recent Labs Lab Units 10/27/24 0610/26/24 0628 10/25/24 0658 SODIUM mmol/L 127* 129* 134* POTASSIUM PLASMA mmol/L 3.6 3.9 3.8 CHLORIDE mmol/L 87* 89* 93* CO2 mmol/L 36* 33* 34* ANIONGAP mmol/L 4 7 7 GLUCOSE mg/dL 95 94 102 BUN SERUM mg/dL 37* 43* 46* CREATININE mg/dL 1.40* 1.65* 1.70* CALCIUM mg/dL 8.3* 8.5 8.6 Imaging: CT abd 10/21/24: similar b effusions, R>L w RLL consolidation CXR 10/23/24: RLL inf, no visible large effusion CXR 10/27: Per my read PVC present Other diagnostic tests: Echo 10/20/24: EF 37%, LVDD, RV volume overload, RVSP 60 I have personally reviewed above laboratory findings, chest imaging, and diagnostic tests 10/27/2024 Assessment and Plan: Acute hypoxic respiratory insufficiency Severe emphysema RLL cavitary lesion: pneumonia vs malignancy vs bullous disease B effusions, R>L, likely due to CHF, parapneumonic also possible Afib CHF CKD CAD w hx CABG Recs: - Wean supplemental O2 for SpO2 88-92% - Nebs TID - Unasyn day 9, completed azithromycin. Given cavitary lesion would continue augmentin at dischargefor total treatment period of 3-4 weeks. - Will need repeat CT chest imaging in 4-6 weeks * Deborah Mendiola [facility] - 10/27/2024 1:54 PM CDT Pharmacy Medication Adjustment Ian Monsalve meets P&T-approved criteria for adjustment of medication therapy. Ampicillin/sulbactam Current regimen: 3g Q12H New regimen: 3g Q6H Lab Results Component Value Date/Time CREATININE 1.40 (H) 10/27/2024 06:26 AM BUNSER 37 (H) 10/27/2024 06:26 AM Estimated Creatinine Clearance: 36.7 mL/min (A) (by C-G 65 yr and older- minimum SCr 0.8 based on SCr of 1.4 mg/dL (H)). Patient Weight 10/26/24 78.2 kg (172 lb 6.4 oz) Body mass index is 27 kg/m??. Deborah Mendiola RPh * Deborah Mendiola [facility] - 10/27/2024 11:51 AM CDT Pharmacokinetic Consult - Anticoagulation Dosing Ian Monsalve is a 84 y.o. male who has been consulted for pharmacy warfarin dosing and monitoring. Current Hematologic Labs INR Date Value Ref Range Status 10/27/2024 1.49 (H) 0.90 - 1.20 Final Comment: Interpretive data Oral anticoagulant therapeutic ranges: Venous thromboembolism prophylaxis or treatment: 2.0-3.0 CARDIOLOGY Standard range: 2.0-3.0 High-intensity range: 2.5-3.5 Refer to indication-specific guidelines for appropriate target ranges for prosthetic heart valve replacement. Current interpretive data was last revised on 2019. 10/26/2024 1.55 (H) 0.90 - 1.20 Final Comment: Interpretive data Oral anticoagulant therapeutic ranges: Venous thromboembolism prophylaxis or treatment: 2.0-3.0 CARDIOLOGY Standard range: 2.0-3.0 High-intensity range: 2.5-3.5 Refer to indication-specific guidelines for appropriate target ranges for prosthetic heart valve replacement. Current interpretive data was last revised on 2019. 10/25/2024 1.65 (H) 0.90 - 1.20 Final Comment: Interpretive data Oral anticoagulant therapeutic ranges: Venous thromboembolism prophylaxis or treatment: 2.0-3.0 CARDIOLOGY Standard range: 2.0-3.0 High-intensity range: 2.5-3.5 Refer to indication-specific guidelines for appropriate target ranges for prosthetic heart valve replacement. Current interpretive data was last revised on 2019. Hgb Date Value Ref Range Status 10/27/2024 12.1 (L) 13.0 - 17.5 g/dL Final Hct Date Value Ref Range Status 10/27/2024 36.1 (L) 38.9 - 50.3 % Final Plt Date Value Ref Range Status 10/27/2024 99 (L) 150 - 400 K/cumm Final No results found for: PTT Assessment Patient was admitted on warfarin with a dose of 2 mg on Thursday and 1 mg all other days (Thu to Thu). Patient is on warfarin for an indication of atrial fibrillation. Goal INR is 2-3. Potential interacting medications: unasyn (could potentially increase INR) Plan Date INR Dose given Comments 10/18 2mg Patient already took dose at home. Daily INR ordered 10/19 3.14 1mg Slightly above goal will give home dose today and may need to decrease for further doses 10/20 3.12 1mg 10/21 2.34 1mg 10/22 2.56 1mg 10/23-10/24 on hold 10/25 1.65 2 mg Resume home dose 10/26 1.55 2 mg Stay with 2mg until INR starts to go up 10/27 1.49 2 mg Will continue to follow patient's clinical progress daily. Deborah Mendiola RPh * Ryan Bailey MD - 10/27/2024 9:16 AM CDT General Medicine Daily Progress Patient is a 84 y.o. male who presented with a chief complaint of shortness of breath. Arrival Vitals Temp 10/18/24 1052 36.4 ??C (97.6 ??F) Pulse 10/18/24 1030 80 Resp 10/18/24 1040 24 BP 10/18/24 1030 121/81 SpO2 10/18/24 1030 99 % Temp src 10/18/24 1052 Axillary Heart Rate Source 10/20/24 2103 Monitor Patient Position 10/18/24 1631 Lying BP Location 10/18/24 1631 Right arm FiO2 (%) 10/20/24 1423 40 % Length of stay: 9 days Hospital Course : Interval History: Remains on O2 via nasal cannula Seen with at bedside Subjective: Reports feeling better today Objective: Vitals: 24hr Min/Max: Temp Min: 36.4 ??C (97.5 ??F) Max: 36.7 ??C (98.1 ??F) Pulse Min: 79 Max: 81 BP Min: 95/64 Max: 110/67 Resp Min: 16 Max: 19 SpO2 Min: 93 % Max: 98 % Most Recent : Vitals: 10/27/24 0210 10/27/24 0440 10/27/24 0455 10/27/24 0813 BP: 105/56 95/64 105/72 BP Location: Left arm Left arm Left arm Patient Position: Lying HOB 30 degrees Pulse: 81 79 Resp: 16 Temp: 36.7 ??C (98.1 ??F) TempSrc: Oral Oral SpO2: 93% 93% Weight: Height: I/O last 2 completed shifts: In: 160 [P.O.:50; IV Piggyback:110] Out: 1475 [Urine:1475] No intake/output data recorded. Physical Exam: Gen: In no apparent distress Neuro: Alert, oriented in time place and person. Pulmonary: Not dyspneic. No crackles or rhonchi. Cardiovascular: HS 1, 2 . regular rhythm. No murmurs heard. Pitting pedal edema up to the mid meier Current Meds: ampicillin-sulbactam, 3 g, intravenous, Q12H THERESA [Held by Provider] aspirin, 81 mg, oral, Daily atenoloL, 50 mg, oral, Daily atorvastatin, 20 mg, oral, Nightly calcitRIOL, 0.25 mcg, oral, Daily dofetilide, 125 mcg, oral, BID fenofibrate nanocrystallized, 145 mg, oral, Daily furosemide, 40 mg, intravenous, Daily ipratropium-albuteroL, 3 mL, nebulization, Q4H While awake (RT) levothyroxine, 25 mcg, oral, Daily - 0600 midodrine, 10 mg, oral, TID AC pantoprazole DR, 40 mg, oral, Daily senna-docusate, 1 tablet, oral, BID tamsulosin, 0.4 mg, oral, Daily with dinner Continuous Medications Medication Dose Last Rate PRN Medications Medication Dose Route Frequency Last Admin acetaminophen (TYLENOL) tablet 500 mg 500 mg oral Q6H PRN 500 mg at 10/26/242048 clorazepate (TRANXENE) tablet 7.5 mg 7.5 mg oral BID PRN fluticasone propionate (FLONASE) 50 mcg/actuation nasal spray 2 spray 2 spray each nostril Daily PRN ondansetron (ZOFRAN) injection 4 mg 4 mg intravenous Q6H PRN ramelteon (ROZEREM) tablet 8 mg 8 mg oral Nightly PRN 8 mg at 10/26/242048 [] I have utilized all available immediate resources to obtain, update, or review the patient's current medications (including all prescriptions, tpaj-lge-ketxief products, herbals, cannabis/cannabidiol products, and vitamin/mineral/dietary (nutritional) supplements). Lab/Radiology/Diagnostic Review: Recent Labs Lab Units 10/27/24 0610/26/24 0610/25/24 0658 WBC K/cumm 3.11* 3.52* 3.54* HEMOGLOBIN g/dL 12.1* 12.0* 12.9* HEMATOCRIT % 36.1* 35.9* 38.5* MCV fL 92.1 91.8 92.8 PLATELETS K/cumm 99* 94* 91* Recent Labs Lab Units 10/27/24 0626 10/26/24 0628 10/25/24 0658 10/23/24 0335 10/22/24 0354 10/21/24 0517 SODIUM mmol/L 127* 129* 134* < > 134* 133* POTASSIUM PLASMA mmol/L 3.6 3.9 3.8 < > 4.3 4.5 CHLORIDE mmol/L 87* 89* 93* < > 95* 95* CO2 mmol/L 36* 33* 34* < > 33* 28 ANIONGAP mmol/L 4 7 7 < > 6 10 GLUCOSE mg/dL 95 94 102 < > 101 94 BUN SERUM mg/dL 37* 43* 46* < > 47* 48* CREATININE mg/dL 1.40* 1.65* 1.70* < > 1.99* 2.23* CALCIUM mg/dL 8.3* 8.5 8.6 < > 8.8 8.8 MAGNESIUM mg/dL -- -- -- -- 2.1 2.1 < > = values in this interval not displayed. Recent Labs Lab Units 10/27/24 0626 10/26/24 0628 10/25/24 0658 INR 1.49* 1.55* 1.65* No results found for: BNP No results found for: TROPONINT Estimated Creatinine Clearance: 36.7 mL/min (A) (by C-G 65 yr and older- minimum SCr 0.8 based on SCr of 1.4 mg/dL (H)). Patient Active Problem List Diagnosis Date Noted Acute congestive heart failure, unspecified heart failure type (HCC) 10/18/2024 Palpitations 02/23/2023 All lab results stated above were reviewed by me. [] I confirmed that the patient's Advance Care Plan is present, code status is documented, or surrogate decision maker is listed in the patient's medical record. Assessment/Plan: Acute hypoxic respiratory failure on admission. Differential includes CHF exacerbation, pneumonia. Currently on 2L NC - titrate as able. CXR - Persistent right effusion with patchy right lower lobe consolidation. 10/24: Repeat x-ray showing pulmonary vascular congestion right lower lobe infiltrate. Patient may need home O2 evaluation at [facility]. Congestive heart failure exacerbation on admission. BNP 8636. 2D echo performed- EF 37%, Mod-Severepulmonary htn, Diastolic dysfunction present. On IV Lasix daily - monitor UOP. Give extra dose of Lasix this afternoon. Cardiology service consulted. Initiate GDMT as appropriate. Moderately sized right pleural effusion with consolidations in the right upper, right lower, and right middle lobes suggestive of multifocal pneumonia, on admission CT. Respiratory PCR negative. Blood cultures NGTD. Strep pneumoniae and Legionella antigens are negative. Was on azithromycin, Rocephin starting on 10/18/2024; on 10/19/2024 Rocephin was changed to Unasyn - continue unasyn therapy. Pulmonology following. Possible need for thoracentes no longer needed at this time - coumadin resumed.repeat CXR PVC, RLL infiltrate. Will need repeat imaging in 4-6 weeks otherwise Multiple left upper lobe pulmonary nodules largest measuring 1.1 cm, on admission CT. Dilated main pulmonary artery suggestive of pulmonary arterial hypertension, on admission CT. Severe centrilobular emphysematous changes, on admission CT. Nonspecific mild gastric wall thickening may represent pseudo-thickening from underdistention versus gastritis, on admission CT. On PPI. Atrial fibrillation, currently paced. Previously on digoxin. Now On Tikosyn. Coumadin resumed. Monitor INR Hyperlipidemia: Continue atorvastatin Hypothyroidism: Synthroid. CAD. S/p coronary artery bypass graft x two - left internal mammary artery to the left anterior descending, left radial artery to the posterior descending artery, on 02/24/1997. History of VT, status post ablation on 12/31/2015, 04/08/2016 EP study. Hypotension - improved with midodrine - Try to avoid IVF in setting of volume overload. Right Kidney Mass - US retroperitoneum - Right kidney mass up to 1.4 cm - MRI recommended, patient with defibrillator - not able to obtain an MRI. Will discuss with nephrology regarding recommendations for further evaluation. Urine retention - reported abdominal pain - CT imaging performed - No acute findings noted. On review - bladder looked distended. Bladder scan done with 600 cc - straight cath done. Q6 hour bladder scans - if additional straight cath needed, recommend guerrero placement. Guerrero catheter exchanged on 10/22 due to clotting and inability to empty. Tamsulosin initiated. Urology following - recommending discharging patient with guerrero in place to allow bladder decompression. Continue Flomax and follow up as outpatient. Gross Hematuria, persistent - likely 2/2 trauma from guerrero insertion + being on blood thinners. Urology consulted. Held warfarin, now resumed. Resolved Constipation -started on bowel regimen. +m BM Hyponatremia: Possibly due to hypovolemia. Give extra dose of Lasix. Tolvaptan 30 mg x 1. Repeat BMP in a.m. ROSA on CKD: Renal function improved Avoid nephrotoxic agents as able. Nephrology following - appreciate recommendations Thrombocytopenia : Stable. Monitor Nonspecific troponin elevation PT and OT as tolerated DVT prophylaxis: Coumadin GI prophylaxis: Proton Anticipated DC home with home health PT and OT in 1-2 days Hyponatremia. Monitor and treat underlying etiology. Pancytopenia. Monitor counts. Monitor for bleeding. DVT prophylaxis: given. Code status: LIMITED - No CPR Ryan Bailey MD [facility] Pager #: [phone] This note is dictated and transcribed by Kiera Juares Direct direct software. Timber Setter variances may occur. Despite proof reading, typographical errors may occur. * Nu Phillips OT - 10/27/2024 8:30 AM CDT Occupational Therapy NOTE / SESSION TYPE: DAILY PROGRESS / TREATMENT Patient's Name: Ian Monsalve Age / Sex: 84 y.o. / male Room: [place] [id number] : 1940 Date of service: 10/27/24 TIME IN: 0825 TIME OUT: 0857 Patient Active Problem List Diagnosis Palpitations Acute congestive heart failure, unspecified heart failure type (HCC) No past medical history on file. Past Surgical History: Procedure Laterality Date CHOLECYSTECTOMY Precautions (including weight-bearing): LIMITED code-NO CPR, Fall risk, and Bed / chair alarm Subjective: This is like pure torture, I have no appetite pt states while trying to eat breakfast upon OT arrival. Therapy Pain: Pre-therapy pain level: 0 /10 Pain location: No pain - Location N/A Pain Intervention(s): No pain - Intervention N/A Post-therapy pain level: 0 /10 Pain scale reference: 0-10 SCALE Objective: Appearance: Presentation upon OT arrival: Patient Supine with head of bed elevated Presentation upon OT departure: Patient Sitting in bedside chair Bed / Chair alarm in place and activated upon OT departure: Yes Call light within arms reach of patient at end of session: Yes Completed patient handoff and notified BOARDING MACHINE OPERATOR / RN, name: Beba, of patient's location and functional status upon completion of session VITAL SIGNS: Vitals assessed and stable throughout session, no signs or symptoms of adverse reactions Cognitive / Perceptual: Patient alert and oriented x 4, following 100% 1 step commands Mobility / Transfers: Bed Mobility: supine>EOB with SBA for line management Transfer(s): sit<>stand with SPV. 2-3 step transfer to bedside chair with SPV, no device. Living Skills / Other Activities: Patient completes self feeding with setup assistance for container management. Pt dons bilateral footies with setup assistance while seated at EOB. Pt completes light facial hygiene with setup assistance while seated at EOB. Caregiver Present: No Education & Training Provided: Role of OT, OT plan of care, and ADL training Assessment: Activity tolerance / response to OT session: GOOD PARTICIPATION, GOOD MOTIVATION, and RECEPTIVE TO EDUCATION / TRAINING Progress towards goals: Please refer to care plan from this date for progress towards individual goals Plan: Therapy Plan: Rehab Potential (Prognosis): excellent OT Recommendations This Date: OT RECOMMENDATIONS: OT Recommendation: (S) Home with 24 hour supervision, Home Health OT Flow sheet updated and OT Consultation in Regards to Change in Discharge Recommendations: YES /NO: N/A Additional recommendation comments: Frequency of therapy:OT Frequency during current admission: 3-5x/wk If this is the last note, consider this the discharge summary Nu Phillips OT 10/27/24 * Donte Camacho MD - 10/27/2024 7:52 AM CDT Cardiology follow-up note-SL Pertinent info was reviewed. The patient was seen room 420. Patient still sleeping The patient still has Guerrero catheter in place but hematuria resolved No past medical history on file. Past Surgical History: Procedure Laterality Date CHOLECYSTECTOMY Medications Prior to Admission Medication Sig Dispense Refill Last Dose/Taking aspirin 81 mg enteric coated tablet Take 1 tablet (81 mg total) by mouth daily 10/18/2024 Morning atenoloL (TENORMIN) 50 mg tablet Take 1 tablet (50 mg total) by mouth daily 10/17/2024 atorvastatin (LIPITOR) 20 mg tablet Take 1 tablet (20 mg total) by mouth nightly 10/17/2024 Bedtime calcitRIOL (ROCALTROL) 0.25 mcg capsule Take 1 capsule (0.25 mcg total) by mouth daily 10/18/2024 Morning clorazepate (TRANXENE) 15 mg tablet Take 0.5 tablets (7.5 mg total) by mouth 2 (two) times a day 10/18/2024 Morning digoxin (LANOXIN) 250 mcg (0.25 mg) tablet Take 1 tablet (250 mcg total) by mouth 3 (three) times aweek on Thu, Thu, Thu10/17/2024 ergocalciferol (VITAMIN D) 50,000 unit capsule Take 1 capsule (50,000 Units total) by mouth once a week on Sat Past Week fenofibrate nanocrystallized (TRICOR) 145 mg tablet Take 1 tablet (145 mg total) by mouth daily 10/17/2024 fluticasone propionate (Flonase Allergy Relief) 50 mcg/actuation nasal spray Administer 2 sprays into each nostril daily as needed for rhinitis or allergies Past Week levothyroxine (SYNTHROID) 25 mcg tablet Take 1 tablet (25 mcg total) 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 10/18/2024 Morning Tikosyn 125 mcg capsule Take 1 capsule (125 mcg total) by mouth 2 (two) times a day 10/18/2024 Morning warfarin (COUMADIN) 2 mg tablet Take 1 tablet (2 mg total) by mouth once a week on Tuesdays10/18/2024 Morning warfarin (COUMADIN) 2 mg tablet Take 0.5 tablets (1 mg total) by mouth 6 (six) times a week from Thursday to Thursday10/17/2024 Morning Current Facility-Administered Medications: acetaminophen (TYLENOL) tablet 500 mg, 500 mg, oral, Q6H PRN, Luan Guillermo DO, 500 mg at 10/26/242048 ampicillin-sulbactam (UNASYN) 3 g in sodium chloride 0.9% 100 mL IVPB, 3 g, intravenous, Q12H Ifeanyi CARDENAS Jessica Houston, MD, Stopped at 10/26/242109 [Held by Provider] aspirin enteric coated tablet 81 mg, 81 mg, oral, Daily, Namrata Spencer, LAUNDRY MACHINE TENDER, 81 mg at 10/24/24 1001 atenoloL (TENORMIN) tablet 50 mg, 50 mg, oral, Daily, Namrata Spencer, LAUNDRY MACHINE TENDER, 50 mg at 10/25/24 09 atorvastatin (LIPITOR) tablet 20 mg, 20 mg, oral, Nightly, Namrata Spencer, LAUNDRY MACHINE TENDER, 20 mg at 10/26/242033 calcitRIOL (ROCALTROL) capsule 0.25 mcg, 0.25 mcg, oral, Daily, Namrata Spencer, LAUNDRY MACHINE TENDER, 0.25mcg at 10/26/24835 clorazepate (TRANXENE) tablet 7.5 mg, 7.5 mg, oral, BID PRN, Luan Guillermo DO dofetilide (TIKOSYN) capsule 125 mcg, 125 mcg, oral, BID, Namrata Spencer, ZACHERY, 125 mcg at10/26/242033 fenofibrate nanocrystallized (TRICOR) tablet 145 mg, 145 mg, oral, Daily, Namrata Spencer, LAUNDRY MACHINE TENDER, 145 mg at 10/26/24835 fluticasone propionate (FLONASE) 50 mcg/actuation nasal spray 2 spray, 2 spray, each nostril, DailyPRN, Namrata Spencer NP furosemide (LASIX) 10 mg/mL injection 40 mg, 40 mg, intravenous, Daily, Nalluri Maribell, LAUNDRY MACHINE TENDER, 40 mgat 10/26/24 0836 ipratropium-albuteroL (DUO-NEB) 0.5-2.5 mg/3 mL nebulizer solution 3 mL, 3 mL, nebulization, Q4H While awake (RT), Namrata Spencer NP, 3 mL at 10/26/242140 levothyroxine (SYNTHROID) tablet 25 mcg, 25 mcg, oral, Daily - 0600, Namrata Spencer, LAUNDRY MACHINE TENDER,25 mcg at 10/27/24 0551 midodrine (PROAMATINE) tablet 10 mg, 10 mg, oral, TID AC, Delvin Mendenhall MD, 10 mg at 10/26/241703 ondansetron (ZOFRAN) injection 4 mg, 4 mg, intravenous, Q6H PRN, Namrata Spencer NP pantoprazole DR (PROTONIX) extended release tablet 40 mg, 40 mg, oral, Daily, Carla Jean MD,40 mg at 10/26/24835 ramelteon (ROZEREM) tablet 8 mg, 8 mg, oral, Nightly PRN, Namrata Spencer NP, 8 mg at 10/26/242048 senna-docusate (PERICOLACE) 8.6-50 mg per tablet 1 tablet, 1 tablet, oral, BID, Luan Guillermo DO, 1 tablet at 10/26/24835 tamsulosin (FLOMAX) extended release capsule 0.4 mg, 0.4 mg, oral, Daily with dinner, Luan Guillermo DO, 0.4 mg at 10/26/241703 Allergies Allergen Reactions Trazodone Hcl Unknown Morphine Hydrocodone Unknown Lunesta [Eszopiclone] Other (See comments) Gave him crazy dreams Tramadol Nausea only Vicodin [Hydrocodone-Acetaminophen] Nausea only Social History Tobacco Use Smoking status: Former Current packs/day: 0.00 Types: Cigarettes Start date: 1955 Quit date: 1997 Years since quittin.4 Passive exposure: Past Smokeless tobacco: Never Substance and Sexual Activity Drug use: Not on file Sexual activity: Not on file Alcohol Use: Unknown (02/23/2023) AUDIT-C Frequency of Alcohol Consumption: Not on file Average Number of Drinks: Patient does not drink Frequency of Binge Drinking: Not on file No family history on file. Review of Systems: Cannot provide any because he has sleep Objective Vitals: 24hr Min/Max: Temp Min: 36.4 ??C (97.5 ??F) Max: 36.7 ??C (98.1 ??F) Pulse Min: 80 Max: 81 BP Min: 92/55 Max: 110/67 Resp Min: 16 Max: 19 SpO2 Min: 90 % Max: 98 % Most Recent: Vitals: 10/27/24 0455 BP: 95/64 Pulse: Resp: Temp: SpO2: I/O last 2 completed shifts: In: 160 [P.O.:50; IV Piggyback:110] Out: 1475 [Urine:1475] No intake/output data recorded. Physical Exam: Lungs clear no wheezing heart exam regular with soft S1 chest wall well-healed scar left upper chest were ICD was implanted. Neuro appears to have no obvious focal weakness moves all 4 extremities spontaneously Skin no icterus or petechiae Lymphatics no cervical or supraclavicular adenopathy on palpation Lab/Radiology/Diagnostic Review: Laboratory review: Lab results in the last 24 hours: Recent Results (from the past 24 hours) CBC with auto differential Collection Time: 10/27/24 6:26 AM Result Value Ref Range WBC 3.11 (L) 3.80 - 9.90 K/cumm Hgb 12.1 (L) 13.0 - 17.5 g/dL Hct 36.1 (L) 38.9 - 50.3 % Plt 99 (L) 150 - 400 K/cumm MPV 12.3 9.1 - 12.3 fL RBC 3.92 (L) 4.30 - 5.80 M/cumm MCV 92.1 81.3 - 96.4 fL MCH 30.9 27.1 - 33.3 pg MCHC 33.5 32.3 - 35.7 g/dL RDW CV 16.0 (H) 11.1 - 14.9 % RDW SD 53.5 (H) 35.7 - 48.1 fL NRBC abs 0.00 0.00 - 0.01 K/cumm Basic metabolic panel Collection Time: 10/27/24 6:26 AM Result Value Ref Range Sodium 127 (L) 135 - 145 mmol/L Potassium, pl 3.6 3.3 - 4.9 mmol/L Chloride 87 (L) 97 - 110 mmol/L CO2 36 (H) 22 - 32 mmol/L Anion gap 4 2 - 15 mmol/L BUN 37 (H) 6 - 25 mg/dL Creatinine 1.40 (H) 0.80 - 1.30 mg/dL Glucose 95 70 - 199 mg/dL Calcium 8.3 (L) 8.5 - 10.3 mg/dL Protime-INR Collection Time: 10/27/24 6:26 AM Result Value Ref Range PT 16.2 (H) 9.7 - 13.0 sec INR 1.49 (H) 0.90 - 1.20 Differential, auto Collection Time: 10/27/24 6:26 AM Result Value Ref Range Neutrophil abs 2.10 1.50 - 6.50 K/cumm Imm gran abs 0.00 0.00 - 0.10 K/cumm Lymphocyte abs 0.55 (L) 0.80 - 3.30 K/cumm Monocyte abs 0.35 0.20 - 0.80 K/cumm Eosinophil abs 0.09 0.00 - 0.50 K/cumm Basophil abs 0.02 0.00 - 0.10 K/cumm Neutrophil pct 67.5 % Imm gran pct 0.0 % Lymphocyte pct 17.7 % Monocyte pct 11.3 % Eosinophil pct 2.9 % Basophil pct 0.6 % eGFR Collection Time: 10/27/24 6:26 AM Result Value Ref Range eGFR 50 (L) >=60 mL/min/1.73 m2 Lipids: No results found for: CHOL, CHLPL, HDL, LDLCALC, TRIG, CHOLHDL and Cardiac Enzymes: No results found for: CKTOTAL, CKMB, CKMBINDEX, TROPONINT ECG: Results for orders placed during the hospital encounter of 10/18/24 ECG 12 lead Narrative Vent Rate: 80 bpm RR Interval: 749 msec RI Interval: 140 msec QRS Duration: 164 msec QT Interval: 377 msec QTC Interval: 412 msec P-R-T [place]: -52 - 226 - 226 degrees IMPRESSION: ELECTRONIC VENTRICULAR PACEMAKER ST DEPRESSION, CONSIDER SUBENDOCARDIAL INJURY [0.1+ mV ST DEPRESSION] ABNORMAL ECG No change compared to prior EKG Electronically Signed By: Emilio Ratliff MD [facility] Assessment/recommendations Dyspnea pulmonary case clinically appears improved currently on antibiotics - receiving Unasyn IV 3g q.12 hours adjusted for renal dysfunction Acute hypoxemic respiratory failure Likely 2/2 CHF exacerbation with pneumonia -on lasix 40 mg IV will defer diuresis to Nephrology team. Would recommend avoiding over diuresing this patient, - On atenolol -no arb due to ckd; Acute on chronic systolic HF clinically appears to be improving Will defer diuretic to nephrology team -Continue atenolol . Digoxin in a patient who may be taking Coreg dose at home Ischemic cardiomyopathy -S/p BIV ICD implantation History of V-tach Atrial fibrillation -S/p ablation; paced rhythm on EKG Tikosyn Digoxin was stopped to avoid wrong dosing in a patient who has change in renal function Because hematuria resolves warfarin was restarted CAD -S/p CABG No signs of acute myocardial ischemia -Continue ASA, statins Hypertension -Bp stable/controlled Hyperlipidemia -Continue statin Hypothyroidism thyroid levels were checked. Mildly elevated TSH with normal free T4 Latest Reference Range & Units 10/26/24 06:28 TSH 0.30 - 4.20 mcIUnit/mL 6.60 (H) (H): Data is abnormally high Latest Reference Range & Units 10/26/24 06:28 Free T4 0.90 - 1.70 ng/dL 1.43 -Continue levothyroxine at present does CKD Latest Reference Range & Units 10/27/24 06:26 Creatinine 0.80 - 1.30 mg/dL 1.40 (H) (H): Data is abnormally high Nephrology is following the patient We hope is Guerrero catheter can be removed before discharge will defer that decision making to urology. Okay to discharge home when okay with Urology and primary care team * Delvin Mendenhall MD - 10/26/2024 7:47 PM CDT Nephrology Progress Note [facility] SUBJECTIVE 10/26 Appears better. Renal fn stable. 10/24 Cr stable. Urology notes appreciated. Urine reportedly clearing. Persistent pleural effusion. 10/23 Continued gross hematuria. Overall calm. Dyspnea is stable. Will need CBI. 10/22 Appears better. Some s/p pain. Dyspnea appears stable. Guerrero draining yellow urine. All labs and data reviewed. 10/21 Worse today. Guerrero placed. Cr 2.2. D/w . 10/20 Doing better. Ambulated with assistance. Renal mass noted. 10/19 Some better. Cr 2.3 CKD washburn ongoing. IV ABX,. Has PNA and CHF. OBJECTIVE Vitals: Vitals: 10/26/24 1558 10/26/24 1641 10/26/24 2031 10/26/24 2141 BP: 110/67 102/65 BP Location: Left arm Patient Position: Pulse: 80 80 80 Resp: 19 16 Temp: 36.7 ??C (98.1 ??F) 36.5 ??C (97.7 ??F) TempSrc: Oral SpO2: 97% 93% 93% 96% Weight: Height: Intake/Output Summary (Last 24 hours) at 10/26/2024 2247 Last data filed at 10/26/2024 1655 Gross per 24 hour Intake -- Output 1175 ml Net -1175 ml REVIEW OF SYSTEMS Review of Systems Constitutional: Negative. HENT: Negative. Eyes: Negative. Respiratory: Negative. Cardiovascular: Negative. Gastrointestinal: Negative. Genitourinary: Negative. Musculoskeletal: Negative. Skin: Negative. Allergic/Immunologic: Negative. Hematological: Negative. All other systems reviewed and are negative. PHYSICAL EXAM Physical Exam Constitutional: Appears well-developed. HENT: wnl Head: Normocephalic. Eyes: Pupils are equal, round, and reactive to light. Neck: Normal range of motion. Neck supple. Cardiovascular: Normal rate. Pulmonary/Chest: Effort normal and breath sounds normal. Abdominal: Soft. Musculoskeletal: Normal range of motion. Neurological: Alert, oriented. Skin: Skin is warm. Nursing note and vitals reviewed. MEDICATIONS Current Facility-Administered Medications: acetaminophen (TYLENOL) tablet 500 mg, 500 mg, oral, Q6H PRN, Luan Guillermo, , 500 mg at 10/26/242048 ampicillin-sulbactam (UNASYN) 3 g in sodium chloride 0.9% 100 mL IVPB, 3 g, intravenous, Q12H Ifeanyi CARDENAS Jessica Houston, MD, Stopped at 10/26/242109 [Held by Provider] aspirin enteric coated tablet 81 mg, 81 mg, oral, Daily, Namrata Spencer NP, 81 mg at 10/24/24 100 atenoloL (TENORMIN) tablet 50 mg, 50 mg, oral, Daily, Namrata Spencer NP, 50 mg at 10/25/24 09 atorvastatin (LIPITOR) tablet 20 mg, 20 mg, oral, Nightly, Namrata Spencer NP, 20 mg at 10/26/242033 calcitRIOL (ROCALTROL) capsule 0.25 mcg, 0.25 mcg, oral, Daily, Namrata Spencer NP, 0.25mcg at 10/26/24835 clorazepate (TRANXENE) tablet 7.5 mg, 7.5 mg, oral, BID PRN, Luan Guillermo DO dofetilide (TIKOSYN) capsule 125 mcg, 125 mcg, oral, BID, Namrata Spencer NP, 125 mcg at10/26/242033 fenofibrate nanocrystallized (TRICOR) tablet 145 mg, 145 mg, oral, Daily, Namrata Spencer NP, 145 mg at 10/26/24835 fluticasone propionate (FLONASE) 50 mcg/actuation nasal spray 2 spray, 2 spray, each nostril, DailyPRN, Namrata Spencer NP furosemide (LASIX) 10 mg/mL injection 40 mg, 40 mg, intravenous, Daily, NalluMaribell truong NP, 40 mgat 10/26/2436 ipratropium-albuteroL (DUO-NEB) 0.5-2.5 mg/3 mL nebulizer solution 3 mL, 3 mL, nebulization, Q4H While awake (RT), Namrata Spencer NP, 3 mL at 10/26/24 214 levothyroxine (SYNTHROID) tablet 25 mcg, 25 mcg, oral, Daily - 0600, Namrata Spencer NP,25 mcg at 10/26/24 0549 midodrine (PROAMATINE) tablet 10 mg, 10 mg, oral, TID AC, Delvin Mendenhall MD, 10 mg at 10/26/24 1704 ondansetron (ZOFRAN) injection 4 mg, 4 mg, intravenous, Q6H PRN, Namrata Spencer NP pantoprazole DR (PROTONIX) extended release tablet 40 mg, 40 mg, oral, Daily, Carla Jean MD,40 mg at 10/26/24 0836 ramelteon (ROZEREM) tablet 8 mg, 8 mg, oral, Nightly PRN, Namrata Spencer NP, 8 mg at 10/26/242048 senna-docusate (PERICOLACE) 8.6-50 mg per tablet 1 tablet, 1 tablet, oral, BID, Luan Guillermo DO, 1 tablet at 10/26/24 0836 tamsulosin (FLOMAX) extended release capsule 0.4 mg, 0.4 mg, oral, Daily with dinner, Luan Guillermo DO, 0.4 mg at 10/26/24 1704 Lab/Radiology/Diagnostic Review: Recent Results (from the past 24 hours) CBC with auto differential Collection Time: 10/26/24 6:28 AM Result Value Ref Range WBC 3.52 (L) 3.80 - 9.90 K/cumm Hgb 12.0 (L) 13.0 - 17.5 g/dL Hct 35.9 (L) 38.9 - 50.3 % Plt 94 (L) 150 - 400 K/cumm MPV 11.3 9.1 - 12.3 fL RBC 3.91 (L) 4.30 - 5.80 M/cumm MCV 91.8 81.3 - 96.4 fL MCH 30.7 27.1 - 33.3 pg MCHC 33.4 32.3 - 35.7 g/dL RDW CV 16.2 (H) 11.1 - 14.9 % RDW SD 54.3 (H) 35.7 - 48.1 fL NRBC abs 0.00 0.00 - 0.01 K/cumm Basic metabolic panel Collection Time: 10/26/24 6:28 AM Result Value Ref Range Sodium 129 (L) 135 - 145 mmol/L Potassium, pl 3.9 3.3 - 4.9 mmol/L Chloride 89 (L) 97 - 110 mmol/L CO2 33 (H) 22 - 32 mmol/L Anion gap 7 2 - 15 mmol/L BUN 43 (H) 6 - 25 mg/dL Creatinine 1.65 (H) 0.80 - 1.30 mg/dL Glucose 94 70 - 199 mg/dL Calcium 8.5 8.5 - 10.3 mg/dL Protime-INR Collection Time: 10/26/24 6:28 AM Result Value Ref Range PT 16.9 (H) 9.7 - 13.0 sec INR 1.55 (H) 0.90 - 1.20 Cortisol Collection Time: 10/26/24 6:28 AM Result Value Ref Range Cortisol 15.8 4.8 - 19.5 mcg/dl Thyroid Function [place] Collection Time: 10/26/24 6:28 AM Result Value Ref Range TSH 6.60 (H) 0.30 - 4.20 mcIUnit/mL Differential, auto Collection Time: 10/26/24 6:28 AM Result Value Ref Range Neutrophil abs 2.38 1.50 - 6.50 K/cumm Imm gran abs 0.01 0.00 - 0.10 K/cumm Lymphocyte abs 0.60 (L) 0.80 - 3.30 K/cumm Monocyte abs 0.41 0.20 - 0.80 K/cumm Eosinophil abs 0.10 0.00 - 0.50 K/cumm Basophil abs 0.02 0.00 - 0.10 K/cumm Neutrophil pct 67.7 % Imm gran pct 0.3 % Lymphocyte pct 17.0 % Monocyte pct 11.6 % Eosinophil pct 2.8 % Basophil pct 0.6 % T4, free Collection Time: 10/26/24 6:28 AM Result Value Ref Range Free T4 1.43 0.90 - 1.70 ng/dL eGFR Collection Time: 10/26/24 6:28 AM Result Value Ref Range eGFR 41 (L) >=60 mL/min/1.[address] Chest WO Contrast Result Date: 10/18/2024 Narrative: EXAMINATION: Computed tomography of the chest without intravenous contrast HISTORY: Abnormal chest radiograph. TECHNIQUE: Transaxial computed tomographic images of the chest were obtained without intravenous contrast according to the standard protocol. COMPARISON: Chest radiograph dated same day. FINDINGS: There is a moderately sized right pleural effusion with fluid in the right majorfissure and right upper, middle, and lower lobe consolidations most notable in the right lower lobe. Small left pleural effusion with left lower lobe atelectasis. Severe centrilobular emphysematous changes. Poststernotomy changes. Mild mediastinal lymphadenopathy with largest mediastinal node measur ing 1.1 cm in short axis dimension. Nodules in the left upper lobe, largest measuring approximately1.1 x 0.5 cm. Follow-up suggested. Main pulmonary [...] may represent pseudo-thickening from underdistention versus gastritis. Impression: 1. Moderately sized right pleural effusion with [...] Electronically signed by: Rajendra Oh II, D.O. ECG 12 lead Result Date: 10/18/2024 Narrative: Vent Rate: 80 bpm RR Interval: 749 msec RI Interval: 140 msec QRS Duration: 164 msec QT Interval: 377 msec QTC Interval: 412 msec P-R-T [place]: -52 - 226 - 226 degrees IMPRESSION: ELECTRONICVENTRICULAR PACEMAKER ST DEPRESSION, CONSIDER SUBENDOCARDIAL INJURY [0.1+ mV ST DEPRESSION] ABNORMAL ECG No change compared to prior EKG Electronically Signed By: Emilio SAINZ XR Chest 1 Vw Portable Result Date: 10/18/2024 Narrative: EXAMINATION: XR CHEST 1 VIEW DATE: 10/18/2024 11:20 AM INDICATION: Shortness of breath. COMPARISON: 02/23/2023. Impression: ICD leads are intact. Post sternotomy changes are noted. Cardiac mediastinal silhouettewithin normal limits. There is a small right pleural effusion. Opacities in the right lower lobe suggestive of pneumonia, increased from prior. Follow-up suggested to ensure resolution. No acute osseous abnormality. Electronically signed by: Rajendra Oh II, D.O. ASSESSMENT/PLAN CKD 3b CRS. CHF/dyspnea. R LL PNA. MBD. ICD status. RECOMMENDATIONS IV diuresis. CKD washburn. Overall improved. -10/20, BP low, start midodrine, IV ABX, decrease diuresis, CT scan kidneys. -10/21, urinary retention, ROSA worse, guerrero placed, will follow, CT scan to be reviewed. -10/22, CT scan kidneys shows exophytic cysts, will do MRI as o/p, continue guerrero, ROSA better, good UO, no new changes, difficult guerrero yesterday. -Cr 1.7 and baseline, dyspnea better, gross hematuria, difficult guerrero, traumatic hematuria, Needs CBI, will reconsult Urology. -cr is baseline, guerrero irrigation, likely needs thoracentesis, for both diagnostic and therapeutic purposes, avss, lytes stable. -CR is stable, cxr better, can switch to po diuretics tomorrow. I can be reached at [phone] with any concerns. Thank you Ryan Bailey MD for the consult. Delvin Mendenhall MD [employer] [phone] * Vishnu Suggs MD - 10/26/2024 1:23 PM CDT Pulmonary Daily Progress Chief complaint/reason for consult: New O2 requirement, Pulmonary nodules, pulmonary hypertension . Interval History: Resting comfortably in chair On 3L NC Afebrile Pt voices no new complaints at this time Presenting History: 84 y/o CM who presented to the ED on 10/18/24 with complaints of shortness of breath that had been worsening over the last week. He was reportedly satting 70% on room air when EMSarrived. 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 States he has been having increased BAH. Does have cough at times that is productive of clear sputum. Started smoking age 12 and quit in 1996, smoked up to 1.5 ppd for 44 years, giving a 66 pack year hx. He has been on amiodarone in the past but not for sometime. 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 No service. CT Chest 10/18/24: Very severe emphysematous changes, moderate right pleural effusion, lung nodules Carries a hx of atrial fibrillation s/p multiple ablations, HFrEF, ischemic cardiomyopathy s/p BiVICD, CKD, CAD s/p CABG, Allergies: Allergies Allergen Reactions Trazodone Hcl Unknown Morphine Hydrocodone Unknown Lunesta [Eszopiclone] Other (See comments) Gave him crazy dreams Tramadol Nausea only Vicodin [Hydrocodone-Acetaminophen] Nausea only Medications: Scheduled Meds:ampicillin-sulbactam, 3 g, intravenous, Q12H THERESA [Held by Provider] aspirin, 81 mg, oral, Daily atenoloL, 50 mg, oral, Daily atorvastatin, 20 mg, oral, Nightly calcitRIOL, 0.25 mcg, oral, Daily [Held by Provider] digoxin, 62.5 mcg, oral, Once per day on Thursday dofetilide, 125 mcg, oral, BID fenofibrate nanocrystallized, 145 mg, oral, Daily furosemide, 40 mg, intravenous, Daily ipratropium-albuteroL, 3 mL, nebulization, Q4H While awake (RT) levothyroxine, 25 mcg, oral, Daily - 0600 midodrine, 10 mg, oral, TID AC pantoprazole DR, 40 mg, oral, Daily senna-docusate, 1 tablet, oral, BID tamsulosin, 0.4 mg, oral, Daily with dinner [Held by Provider] warfarin, 1 mg, oral, Once - 1800 Continuous Infusions: PRN Meds:. acetaminophen clorazepate fluticasone propionate ondansetron ramelteon ROS Above review of system reviewed on 10/25/2024 Vitals: Vitals: 10/24/24 2343 10/25/24 0504 10/25/24 0735 10/25/24 0815 BP: 95/53 96/61 100/62 BP Location: Left arm Right arm Left arm Patient Position: HOB 30 degrees Sitting Lying Pulse: 80 80 79 Resp: 17 18 18 Temp: 36.7 ??C (98.1 ??F) 36.2 ??C (97.2 ??F) 36.8 ??C (98.2 ??F) TempSrc: Axillary Oral Oral SpO2: 92% 94% 91% 91% Weight: Height: Temp (24hrs), Av.6 ??C (97.9 ??F), Min:36.2 ??C (97.2 ??F), Max:36.8 ??C (98.2 ??F) Intake/Output Summary (Last 24 hours) at 10/25/2024 1119 Last data filed at 10/25/2024 0910 Gross per 24 hour Intake -- Output 1735 ml Net -1735 ml Physical Exam Vitals and nursing note reviewed. Constitutional: General: He is not in acute distress. Appearance: He is well-developed. HENT: Head: Normocephalic and atraumatic. Comments: Hard of hearing Eyes: Conjunctiva/sclera: Conjunctivae normal. Cardiovascular: Rate and Rhythm: Normal rate and regular rhythm. Heart sounds: No murmur heard. Pulmonary: Effort: Pulmonary effort is normal. No respiratory distress. Breath sounds: Normal breath sounds. No stridor. No wheezing or rales. Abdominal: General: Bowel sounds are normal. Palpations: Abdomen is soft. Musculoskeletal: Right lower leg: No edema. Left lower leg: No edema. Skin: General: Skin is warm and dry. Neurological: General: No focal deficit present. Mental Status: He is alert. Psychiatric: Behavior: Behavior normal. Lab/Radiology/Diagnostic Review: Labs: Recent Labs Lab Units 10/25/24 0658 10/24/24 0415 10/23/24 0335 WBC K/cumm 3.54* 3.81 5.82 HEMOGLOBIN g/dL 12.9* 12.8* 13.8 HEMATOCRIT % 38.5* 38.2* 41.6 PLATELETS K/cumm 91* 81* 87* NEUTROS PCT % 72.6 70.6 78.0 LYMPHS PCT % 13.0 14.7 8.8 MONOS PCT % 11.0 11.0 11.3 EOS PCT % 2.5 2.9 1.4 Recent Labs Lab Units 10/25/24 0658 10/24/24 0415 10/23/24 0335 SODIUM mmol/L 134* 132* 137 POTASSIUM PLASMA mmol/L 3.8 4.2 4.1 CHLORIDE mmol/L 93* 91* 97 CO2 mmol/L 34* 32 33* ANIONGAP mmol/L 7 9 7 GLUCOSE mg/dL 102 96 100 BUN SERUM mg/dL 46* 46* 44* CREATININE mg/dL 1.70* 1.90* 1.70* CALCIUM mg/dL 8.6 8.4* 8.8 Imaging: CT abd 10/21/24: similar b effusions, R>L w RLL consolidation CXR 10/23/24: RLL inf, no visible large effusion Other diagnostic tests: Echo 10/20/24: EF 37%, LVDD, RV volume overload, RVSP 60 I have personally reviewed above laboratory findings, chest imaging, and diagnostic tests 10/25/2024 Assessment and Plan: Acute hypoxic respiratory insufficiency Severe emphysema RLL cavitary lesion: pneumonia vs malignancy vs bullous disease B effusions, R>L, likely due to CHF, parapneumonic also possible Afib CHF CKD CAD w hx CABG Recs: - Wean supplemental O2 for SpO2 88-92% - Nebs TID - Unasyn day 8, completed azithromycin. Given cavitary lesion would continue augmentin at dischargefor total treatment period of 3-4 weeks. - pleural effusion appears improved or resolved on current imaging; will not likely need thoracentesis; OK to resume warfarin from pulmonary perspective - Will need repeat CT chest imaging in 4-6 weeks * Ankita Engle, OT - 10/26/2024 10:08 AM CDT Occupational Therapy NOTE / SESSION TYPE: DAILY PROGRESS / TREATMENT Patient's Name: Ian Monsalve Age / Sex: 84 y.o. / male Room: [place] [address] : 1940 Date of service: 10/26/24 TIME IN: 1008 TIME OUT: 1046 Patient Active Problem List Diagnosis Palpitations Acute congestive heart failure, unspecified heart failure type (HCC) No past medical history on file. Past Surgical History: Procedure Laterality Date CHOLECYSTECTOMY Precautions (including weight-bearing): Fall risk Subjective I want to walk Therapy Pain: Pre-therapy pain level: 0 /10 Pain location: No pain - Location N/A Pain Intervention(s): No pain - Intervention N/A Post-therapy pain level: 0 /10 Pain scale reference: 0-10 SCALE Objective: Appearance: Presentation upon OT arrival: Patient Sitting in bedside recliner Presentation upon OT departure: Patient Sitting in bedside recliner Bed / Chair alarm in place and activated upon OT departure: No: Not required per RN consultation Call light within arms reach of patient at end of session: Yes Completed patient handoff and notified BOARDING MACHINE OPERATOR / RN of patient's location and functional status upon completion of session VITAL SIGNS: Heart rate with activity: 80 BPM O2 saturations at rest: 91-92% O2 saturations with activity: 84%, increasing to 90% with PLB Oxygen LPM: 3 L via NC Cognitive / Perceptual: A&O x 4 Mobility / Transfers: Transfer(s): sitting to and from standing using w/w with SPV assist for safety Functional mobility community distance using w/w with SPV assist for safety Living Skills / Other Activities: Footwear: Patient completed footwear of Footie(s) while Sitting in bedside chair / recliner with overall Supervision assistance. Patient required assistance for set-up of items and safety UE dressing: Patient completed upper body dressing of Hospital gown while Standing at recliner with overall Minimal assistance. Patient required assistance for fasteners and safety. UE THERAPEUTIC EXERCISES: EXERCISE TYPE: bilateral UE AROM EXERCISE(S) COMPLETED WITH NUMBER OF REPETITIONS: SHOULDER FLEXION 10 , SHOULDER EXTENSION 10 , ELBOW FLEXION 10, and ELBOW EXTENSION 10 NUMBER OF SETS: 1 ASSIST LEVEL: MIN verbal cues LOCATION OF COMPLETION: sitting in bedside recliner TOLERANCE: patient appeared to tolerate activity well with no c/o pain Caregiver Present: No Education & Training Provided: Role of OT, OT plan of care, ADL training, Functional transfer training, Balance training, Safety education, UE home exercise program, and Pursed lip breathing / Relaxation techniques Assessment: Activity tolerance / response to OT session: GOOD PARTICIPATION, GOOD MOTIVATION, and RECEPTIVE TO EDUCATION / TRAINING Progress towards goals: Please refer to care plan from this date for progress towards individual goals Plan: Therapy Plan: Rehab Potential (Prognosis): good OT Recommendations This Date: OT RECOMMENDATIONS: OT Recommendation: (S) Home with 24 hour supervision, Home Health OT Flow sheet updated and OT Consultation in Regards to Change in Discharge Recommendations: YES /NO: No Additional recommendation comments: Frequency of therapy:OT Frequency during current admission: 3-5x/wk If this is the last note, consider this the discharge summary Ankita Engle OT 10/26/24 * Nitesh Phillips, LAUNDRY MACHINE TENDER - 10/26/2024 9:06 AM CDT INPATIENT PROGRESS NOTE - HOSPITALIST Ian Monsalve is a 84 y.o. male at Hospital Day ( LOS: 8 days ) Chief Complaint Chief Complaint Patient presents with Shortness of Breath Subjective Interval History Patient seen and examined; chart reviewed. 10/26: pt ready to go home, currently on 2L NC, he remains on iv lasix. He may need home O2 evaluation. Patient start negative scary showed; patient reassured. 10/25: Patient lying in bed, no complaints at this time. Oxygen attempted to be weaned however O2 saturations dropped to 87%. Patient remains on 1 L nasal cannula Objective: Temp Av.4 ??C (97.6 ??F) Min: 36.4 ??C (97.5 ??F) Max: 36.7 ??C (98 ??F) BP Min: 92/55 Max: 119/70 Pulse Av.9 Min: 78 Max: 81 Resp Av Min: 19 Max: 19 SpO2 Av.3 % Min: 86 % Max: 98 % O2 Flow Rate (L/min): 2 L/min Date 10/25/24699 - 10/26/2465810/26/24699 - 10/27/24658 Shift 3930-8880 4804-3536 24 Hour Total 0058-2198 3643-4162 24 Hour Total INTAKE P.O. 100 100 I.V.(mL/kg) 110(1.4) 110(1.4) Shift Total(mL/kg) 110(1.4) 100(1.3) 210(2.7) OUTPUT Urine(mL/kg/hr) 850(0.9) 1200(1.3) 2049(1.1) Shift Total(mL/kg) 850(11) 1200(15.3) 2049(26.2) NET -740 -1100 -1840 Weight (kg) 77 78.2 78.2 78.2 78.2 78.2 Intake/Output Summary (Last 24 hours) at 10/26/2024 0906 Last data filed at 10/26/2024 0630 Gross per 24 hour Intake 210 ml Output 2050 ml Net -1840 ml Temp (24hrs), Av.4 ??C (97.6 ??F), Min:36.4 ??C (97.5 ??F), Max:36.7 ??C (98 ??F) PHYSICAL EXAMINATION General: Appears to be in no acute distress. HEENT: Head normocephalic, atraumatic. PERRLA. EOMI. Conjunctivae are clear. Sclerae are anicteric.Nares are patent. . Mucous membranes are moist. Neck: Supple. No lymphadenopathy, JVD. Lungs: Clear to auscultation. No crackle or wheezing noted. Cardiovascular: Irregular Abdomen: Soft, nontender, nondistended with positive bowel sounds. Obese Extremities: + clubbing, cyanosis o or edema. Bilateral upper extremity bruising noted Neuro: Alert and oriented x3. Active Scheduled and PRN meds ampicillin-sulbactam, 3 g, Q12H THERESA [Held by Provider] aspirin, 81 mg, Daily atenoloL, 50 mg, Daily atorvastatin, 20 mg, Nightly calcitRIOL, 0.25 mcg, Daily [Held by Provider] digoxin, 62.5 mcg, Once per day on Thursday dofetilide, 125 mcg, BID fenofibrate nanocrystallized, 145 mg, Daily furosemide, 40 mg, Daily ipratropium-albuteroL, 3 mL, Q4H While awake (RT) levothyroxine, 25 mcg, Daily - 0600 midodrine, 10 mg, TID AC pantoprazole DR, 40 mg, Daily senna-docusate, 1 tablet, BID tamsulosin, 0.4 mg, Daily with dinner warfarin, 2 mg, Once - 1800 acetaminophen, 500 mg, Q6H PRN clorazepate, 7.5 mg, BID PRN fluticasone propionate, 2 spray, Daily PRN ondansetron, 4 mg, Q6H PRN ramelteon, 8 mg, Nightly PRN Continuous Infusions: Lab Review Recent Labs Lab Units 10/26/24 0628 10/25/24 0658 10/24/24 0415 WBC K/cumm 3.52* 3.54* 3.81 HEMOGLOBIN g/dL 12.0* 12.9* 12.8* HEMATOCRIT % 35.9* 38.5* 38.2* PLATELETS K/cumm 94* 91* 81* NEUTROS PCT % 67.7 72.6 70.6 LYMPHS PCT % 17.0 13.0 14.7 MONOS PCT % 11.6 11.0 11.0 EOS PCT % 2.8 2.5 2.9 Recent Labs Lab Units 10/26/24 0628 10/25/24 0658 10/24/24 0415 SODIUM mmol/L 129* 134* 132* POTASSIUM PLASMA mmol/L 3.9 3.8 4.2 CHLORIDE mmol/L 89* 93* 91* CO2 mmol/L 33* 34* 32 ANIONGAP mmol/L 7 7 9 GLUCOSE mg/dL 94 102 96 BUN SERUM mg/dL 43* 46* 46* CREATININE mg/dL 1.65* 1.70* 1.90* CALCIUM mg/dL 8.5 8.6 8.4* Radiology: XR Chest 1 Vw Portable Final Result Findings as described above. Electronically signed by: Coco Youngblood M.D. XR Chest 1 Vw Portable Final Result Persistent right effusion with patchy right lower lobe consolidation. Electronically signed by: Perla Cowart M.D. CT Abdomen Pelvis WO Contrast Final Result Limited study secondary to lack of intravenous contrast. No acute intra-abdominal abnormality. Colonic diverticulosis. Bilateral pleural effusions and bilateral lower lobe atelectasis. 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 Electronically signed by: Neel Morrison M.D. Transthoracic Echo (TTE) Complete W Doppler/CF Final Result US Retroperitoneal Complete Final Result 1. Possible mass in the right kidney measuring up to 1.4 cm. Suggest MRI of the kidneys for further evaluation. 2. Enlarged prostate. Electronically signed by: Rajendra Oh II, D.O. CT Chest WO Contrast Final Result 1. Moderately sized right pleural effusion with [...] Electronically signed by: Rajendra Oh II, D.O. XR Chest 1 Vw Portable Final Result ICD leads are intact. Post sternotomy changes are noted. Cardiac mediastinal silhouette within normal limits. There is a small right pleural effusion. Opacities in the right lower lobe suggestive of pneumonia, increased from prior. Follow-up suggested to ensure resolution. No acute osseous abnormality. Electronically signed by: Rajendra Oh II, D.O. ECG: Results for orders placed during the hospital encounter of 10/18/24 ECG 12 lead Narrative Vent Rate: 80 bpm RR Interval: 749 msec RI Interval: 140 msec QRS Duration: 164 msec QT Interval: 377 msec QTC Interval: 412 msec P-R-T [place]: -52 - 226 - 226 degrees IMPRESSION: ELECTRONIC VENTRICULAR PACEMAKER ST DEPRESSION, CONSIDER SUBENDOCARDIAL INJURY [0.1+ mV ST DEPRESSION] ABNORMAL ECG No change compared to prior EKG Electronically Signed By: Emilio Ratliff MD [facility] Assessment/Plan Acute hypoxic respiratory failure on admission. Differential includes CHF exacerbation, pneumonia. Currently on 2L NC - titrate as able. CXR - Persistent right effusion with patchy right lower lobe consolidation. 10/24: Repeat x-ray showing pulmonary vascular congestion right lower lobe infiltrate. Patient may need home O2 evaluation. Congestive heart failure exacerbation on admission. BNP 8636. 2D echo performed- EF 37%, Mod-Severepulmonary htn, Diastolic dysfunction present. On IV Lasix daily - monitor UOP. Cardiology service consulted. Initiate GDMT as appropriate. Moderately sized right pleural effusion with consolidations in the right upper, right lower, and right middle lobes suggestive of multifocal pneumonia, on admission CT. Respiratory PCR negative. Blood cultures NGTD. Strep pneumoniae and Legionella antigens are negative. Was on azithromycin, Rocephin starting on 10/18/2024; on 10/19/2024 Rocephin was changed to Unasyn - continue unasyn therapy. Pulmonology following. Possible need for thoracentes no longer needed at this time - coumadin resumed.repeat CXR PVC, RLL infiltrate. Will need repeat imaging in 4-6 weeks otherwise Multiple left upper lobe pulmonary nodules largest measuring 1.1 cm, on admission CT. Dilated main pulmonary artery suggestive of pulmonary arterial hypertension, on admission CT. Severe centrilobular emphysematous changes, on admission CT. Nonspecific mild gastric wall thickening may represent pseudo-thickening from underdistention versus gastritis, on admission CT. On PPI. Atrial fibrillation, currently paced. On digoxin, will hold due to elevated level. On Tikosyn. On Coumadin(resumed), daily INRs, currently subtherapeutic. Hyperlipidemia. On statin, Tricor. Hypothyroidism. On Synthroid. CAD. S/p coronary artery bypass graft x two - left internal mammary artery to the left anterior descending, left radial artery to the posterior descending artery, on 02/24/1997. History of VT, status post ablation on 12/31/2015, 04/08/2016 EP study. Hypotension - improved with midodrine - Try to avoid IVF in setting of volume overload. Right Kidney Mass - US retroperitoneum - Right kidney mass up to 1.4 cm - MRI recommended, patient with defibrillator - not able to obtain an MRI. Will discuss with nephrology regarding recommendations for further evaluation. Urine retention - reported abdominal pain - CT imaging performed - No acute findings noted. On review - bladder looked distended. Bladder scan done with 600 cc - straight cath done. Q6 hour bladder scans - if additional straight cath needed, recommend guerrero placement. Guerrero catheter exchanged on 10/22 due to clotting and inability to empty. Tamsulosin initiated. Urology following - recommending discharging patient with guerrero in place to allow bladder decompression. Continue Flomax and follow up as outpatient. Gross Hematuria, persistent - likely 2/2 trauma from guerrero insertion + being on blood thinners. Urology consulted. Held warfarin, now resumed. Resolved Constipation -started on bowel regimen. +m BM Hyponatremia, follow. Trending down , suspect diuretic related Slight hyperkalemia, resolved. ROSA on CKD. Avoid nephrotoxic agents as able. Nephrology following - appreciate recommendations Thrombocytopenia of 81, follow. Elevated digoxin level of 1.3, follow. Troponin trend of 51, 54, 51, 51, with delta of 3, 0, 0; nonspecific. Prophylaxis. Protonix, Coumadin. PT/OT VTE Prophylaxis Laboratory and imaging data independently reviewed by me Prior records and Care Everywhere if available were reviewed. DISPOSITION: pending hospital course LIMITED - No CPR CONSULTS IP CONSULT TO CARDIOLOGY IP CONSULT TO NEPHROLOGY PHARMACY TO DOSE WARFARIN IP CONSULT TO PULMONOLOGY IP CONSULT TO UROLOGY IP CONSULT TO UROLOGY Please note: This note was created in part using the M*Modal Fluency Direct dictation system. Timber Setter variances May occur . Despite proofreading, typographical and Grammatical errors may occur. 10/26/2024 9:06 AM [facility] [phone] * Donte Camacho MD - 10/26/2024 8:25 AM CDT Cardiology follow-up note-SL Pertinent info was reviewed. The patient was seen room 420. The patient still has Guerrero catheter in place but hematuria resolved Mood slowly getting better No past medical history on file. Past Surgical History: Procedure Laterality Date CHOLECYSTECTOMY Medications Prior to Admission Medication Sig Dispense Refill Last Dose/Taking aspirin 81 mg enteric coated tablet Take 1 tablet (81 mg total) by mouth daily 10/18/2024 Morning atenoloL (TENORMIN) 50 mg tablet Take 1 tablet (50 mg total) by mouth daily 10/17/2024 atorvastatin (LIPITOR) 20 mg tablet Take 1 tablet (20 mg total) by mouth nightly 10/17/2024 Bedtime calcitRIOL (ROCALTROL) 0.25 mcg capsule Take 1 capsule (0.25 mcg total) by mouth daily 10/18/2024 Morning clorazepate (TRANXENE) 15 mg tablet Take 0.5 tablets (7.5 mg total) by mouth 2 (two) times a day 10/18/2024 Morning digoxin (LANOXIN) 250 mcg (0.25 mg) tablet Take 1 tablet (250 mcg total) by mouth 3 (three) times aweek on Mon, Wed, Fri 10/17/2024 ergocalciferol (VITAMIN D) 50,000 unit capsule Take 1 capsule (50,000 Units total) by mouth once a week on Sat Past Week fenofibrate nanocrystallized (TRICOR) 145 mg tablet Take 1 tablet (145 mg total) by mouth daily 10/17/2024 fluticasone propionate (Flonase Allergy Relief) 50 mcg/actuation nasal spray Administer 2 sprays into each nostril daily as needed for rhinitis or allergies Past Week levothyroxine (SYNTHROID) 25 mcg tablet Take 1 tablet (25 mcg total) 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 10/18/2024 Morning Tikosyn 125 mcg capsule Take 1 capsule (125 mcg total) by mouth 2 (two) times a day 10/18/2024 Morning warfarin (COUMADIN) 2 mg tablet Take 1 tablet (2 mg total) by mouth once a week on Tuesdays10/18/2024 Morning warfarin (COUMADIN) 2 mg tablet Take 0.5 tablets (1 mg total) by mouth 6 (six) times a week from Thursday to Thursday10/17/2024 Morning Current Facility-Administered Medications: acetaminophen (TYLENOL) tablet 500 mg, 500 mg, oral, Q6H PRN, Luan Guillermo DO, 500 mg at 10/25/242138 ampicillin-sulbactam (UNASYN) 3 g in sodium chloride 0.9% 100 mL IVPB, 3 g, intravenous, Q12H Ifeanyi CARDENAS Jessica Houston, MD, Stopped at 10/25/242219 [Held by Provider] aspirin enteric coated tablet 81 mg, 81 mg, oral, Daily, Namrata Spencer NP, 81 mg at 10/24/24 100 atenoloL (TENORMIN) tablet 50 mg, 50 mg, oral, Daily, Namrata Spencer NP, 50 mg at 10/25/24 09 atorvastatin (LIPITOR) tablet 20 mg, 20 mg, oral, Nightly, Namrata Spencer NP, 20 mg at 10/25/242138 calcitRIOL (ROCALTROL) capsule 0.25 mcg, 0.25 mcg, oral, Daily, Namrata Spencer NP, 0.25mcg at 10/25/24 09 clorazepate (TRANXENE) tablet 7.5 mg, 7.5 mg, oral, BID PRN, Luan Guillermo DO [Held by Provider] digoxin (LANOXIN) tablet 62.5 mcg, 62.5 mcg, oral, Once per day on Thursday, Donte Camacho MD dofetilide (TIKOSYN) capsule 125 mcg, 125 mcg, oral, BID, Namrata Spencer NP, 125 mcg at10/25/242138 fenofibrate nanocrystallized (TRICOR) tablet 145 mg, 145 mg, oral, Daily, Namrata Spencer NP, 145 mg at 10/25/24907 fluticasone propionate (FLONASE) 50 mcg/actuation nasal spray 2 spray, 2 spray, each nostril, DailyPRN, Namrata Spencer NP furosemide (LASIX) 10 mg/mL injection 40 mg, 40 mg, intravenous, Daily, HoracioluMaribell truong NP, 40 mgat 10/25/24907 ipratropium-albuteroL (DUO-NEB) 0.5-2.5 mg/3 mL nebulizer solution 3 mL, 3 mL, nebulization, Q4H While awake (RT), Namrata Spencer NP, 3 mL at 10/25/242030 levothyroxine (SYNTHROID) tablet 25 mcg, 25 mcg, oral, Daily - 0600, Namrata Spencer NP,25 mcg at 10/26/24 05 midodrine (PROAMATINE) tablet 10 mg, 10 mg, oral, TID AC, Delvin Mendenhall MD, 10 mg at 10/25/241829 ondansetron (ZOFRAN) injection 4 mg, 4 mg, intravenous, Q6H PRN, Namrata Spencer NP pantoprazole DR (PROTONIX) extended release tablet 40 mg, 40 mg, oral, Daily, Carla Jean MD,40 mg at 10/25/24903 ramelteon (ROZEREM) tablet 8 mg, 8 mg, oral, Nightly PRN, Namrata Spencer NP, 8 mg at 10/25/242138 senna-docusate (PERICOLACE) 8.6-50 mg per tablet 1 tablet, 1 tablet, oral, BID, Luan Guillermo DO, 1 tablet at 10/25/242138 tamsulosin (FLOMAX) extended release capsule 0.4 mg, 0.4 mg, oral, Daily with dinner, Luan Guillermo DO, 0.4 mg at 10/25/241829 warfarin (COUMADIN) tablet 2 mg, 2 mg, oral, Once - 1800, Donte Camacho MD Allergies Allergen Reactions Trazodone Hcl Unknown Morphine Hydrocodone Unknown Lunesta [Eszopiclone] Other (See comments) Gave him crazy dreams Tramadol Nausea only Vicodin [Hydrocodone-Acetaminophen] Nausea only Social History Tobacco Use Smoking status: Former Current packs/day: 0.00 Types: Cigarettes Start date: 1955 Quit date: 1997 Years since quittin.4 Passive exposure: Past Smokeless tobacco: Never Substance and Sexual Activity Drug use: Not on file Sexual activity: Not on file Alcohol Use: Unknown (02/23/2023) AUDIT-C Frequency of Alcohol Consumption: Not on file Average Number of Drinks: Patient does not drink Frequency of Binge Drinking: Not on file No family history on file. Review of Systems: Denies chest pain denies focal weakness fatigue is better. Denies any significant abdominal pain. Feels that he is getting better each single day was able to walk with help in the room and outside the room as per patient Objective Vitals: 24hr Min/Max: Temp Min: 36.4 ??C (97.5 ??F) Max: 36.7 ??C (98 ??F) Pulse Min: 78 Max: 81 BP Min: 92/55 Max: 119/70 Resp Min: 19 Max: 19 SpO2 Min: 86 % Max: 98 % Most Recent: Vitals: 10/26/24 08 BP: 92/55 Pulse: 81 Resp: Temp: 36.4 ??C (97.5 ??F) SpO2: 90% I/O last 2 completed shifts: In: 210 [P.O.:100; I.V.:110] Out: 2049 [Urine:2049] No intake/output data recorded. Physical Exam: Constitutional: Does not appear in any acute distress at present time sitting in a recliner HENT: Head: Normocephalic and atraumatic. Mouth: Mucous membranes are moist. Eyes: Extraocular Movements: Extraocular movements intact. Conjunctiva/sclera: Conjunctivae normal. Cardiovascular: Rate and Rhythm: Normal rate and regular rhythm. Heart sounds: No murmur heard. Pulmonary: Decreased sounds at bases more on the right than the left but less than before Abdominal: General: Bowel sounds are normal. There is no distension. Palpations: Abdomen is soft. Tenderness: There is no abdominal tenderness. Guerrero to gravity Musculoskeletal: Muscle wasting present Skin: General: Skin is warm and dry. Chronic mild bilateral lower extremity edema Neurological: General: No focal deficit present. Mental Status: He is alert and oriented to person, place, and time. Psychiatric: Mood and Affect: Mood normal. Behavior: Behavior normal. Thought Content: Thought content normal. Lab/Radiology/Diagnostic Review: Laboratory review: Lab results in the last 24 hours: Recent Results (from the past 24 hours) CBC with auto differential Collection Time: 10/26/24 6:28 AM Result Value Ref Range WBC 3.52 (L) 3.80 - 9.90 K/cumm Hgb 12.0 (L) 13.0 - 17.5 g/dL Hct 35.9 (L) 38.9 - 50.3 % Plt 94 (L) 150 - 400 K/cumm MPV 11.3 9.1 - 12.3 fL RBC 3.91 (L) 4.30 - 5.80 M/cumm MCV 91.8 81.3 - 96.4 fL MCH 30.7 27.1 - 33.3 pg MCHC 33.4 32.3 - 35.7 g/dL RDW CV 16.2 (H) 11.1 - 14.9 % RDW SD 54.3 (H) 35.7 - 48.1 fL NRBC abs 0.00 0.00 - 0.01 K/cumm Basic metabolic panel Collection Time: 10/26/24 6:28 AM Result Value Ref Range Sodium 129 (L) 135 - 145 mmol/L Potassium, pl 3.9 3.3 - 4.9 mmol/L Chloride 89 (L) 97 - 110 mmol/L CO2 33 (H) 22 - 32 mmol/L Anion gap 7 2 - 15 mmol/L BUN 43 (H) 6 - 25 mg/dL Creatinine 1.65 (H) 0.80 - 1.30 mg/dL Glucose 94 70 - 199 mg/dL Calcium 8.5 8.5 - 10.3 mg/dL Protime-INR Collection Time: 10/26/24 6:28 AM Result Value Ref Range PT 16.9 (H) 9.7 - 13.0 sec INR 1.55 (H) 0.90 - 1.20 Cortisol Collection Time: 10/26/24 6:28 AM Result Value Ref Range Cortisol 15.8 4.8 - 19.5 mcg/dl Thyroid Function [place] Collection Time: 10/26/24 6:28 AM Result Value Ref Range TSH 6.60 (H) 0.30 - 4.20 mcIUnit/mL Differential, auto Collection Time: 10/26/24 6:28 AM Result Value Ref Range Neutrophil abs 2.38 1.50 - 6.50 K/cumm Imm gran abs 0.01 0.00 - 0.10 K/cumm Lymphocyte abs 0.60 (L) 0.80 - 3.30 K/cumm Monocyte abs 0.41 0.20 - 0.80 K/cumm Eosinophil abs 0.10 0.00 - 0.50 K/cumm Basophil abs 0.02 0.00 - 0.10 K/cumm Neutrophil pct 67.7 % Imm gran pct 0.3 % Lymphocyte pct 17.0 % Monocyte pct 11.6 % Eosinophil pct 2.8 % Basophil pct 0.6 % T4, free Collection Time: 10/26/24 6:28 AM Result Value Ref Range Free T4 1.43 0.90 - 1.70 ng/dL eGFR Collection Time: 10/26/24 6:28 AM Result Value Ref Range eGFR 41 (L) >=60 mL/min/1.73 m2 Lipids: No results found for: CHOL, CHLPL, HDL, LDLCALC, TRIG, CHOLHDL and Cardiac Enzymes: No results found for: CKTOTAL, CKMB, CKMBINDEX, TROPONINT ECG: Results for orders placed during the hospital encounter of 10/18/24 ECG 12 lead Narrative Vent Rate: 80 bpm RR Interval: 749 msec RI Interval: 140 msec QRS Duration: 164 msec QT Interval: 377 msec QTC Interval: 412 msec P-R-T [place]: -52 - 226 - 226 degrees IMPRESSION: ELECTRONIC VENTRICULAR PACEMAKER ST DEPRESSION, CONSIDER SUBENDOCARDIAL INJURY [0.1+ mV ST DEPRESSION] ABNORMAL ECG No change compared to prior EKG Electronically Signed By: Emilio Ratliff MD [facility] XR Chest 1 View Status: Final result Study Result Narrative & Impression EXAMINATION: XR CHEST 1 VIEW HISTORY: The patient is a 84-year-old male who presents with shortness of breath. Comparison made with the previous study dated 10/24/2024. TECHNIQUE: AP portable view of the chest. FINDINGS: Cardiomegaly with aortic atherosclerosis. Findings of pulmonary vascular congestion. No focal infiltrate seen. IMPRESSION: Cardiomegaly with pulmonary vascular congestion. Electronically signed by: Coco Youngblood M.D. Assessment/recommendations Dyspnea pulmonary case clinically appears improved currently on antibiotics - receiving Unasyn IV 3g q.12 hours adjusted for renal dysfunction Acute hypoxemic respiratory failure Likely 2/2 CHF exacerbation with pneumonia -on lasix 40 mg IV will defer diuresis to Nephrology team. Would recommend avoiding over diuresing this patient, - On atenolol -no arb due to ckd; Acute on chronic systolic HF clinically appears to be improving Will defer diuretic to nephrology team -Continue atenolol . Digoxin in a patient who may be taking Coreg dose at home Ischemic cardiomyopathy -S/p BIV ICD implantation History of V-tach Atrial fibrillation -S/p ablation; paced rhythm on EKG Tikosyn Stop digoxin altogether Because hematuria resolves warfarin was restarted CAD -S/p CABG No signs of acute myocardial ischemia -Continue ASA, statins Hypertension -Bp stable/controlled Hyperlipidemia -Continue statin Hypothyroidism check thyroid levels and cortisol level tomorrow Latest Reference Range & Units 02/24/23 03:21 TSH 0.30 - 4.20 mcIUnit/mL 3.54 -Continue levothyroxine CKD Nephrology is following the patient We hope is Guerrero catheter can be removed before discharge will defer that decision making to urology. Okay to discharge home when okay with Urology and primary care team * Donte Camacho MD - 10/26/2024 8:24 AM CDT The pertinent information was reviewed Full cardiology note to follow * Soledad Camacho [facility] - 10/26/2024 7:27 AM CDT Pharmacokinetic Consult - Anticoagulation Dosing Ian Monsalve is a 84 y.o. male who has been consulted for pharmacy warfarin dosing and monitoring. Current Hematologic Labs INR Date Value Ref Range Status 10/26/2024 1.55 (H) 0.90 - 1.20 Final Comment: Interpretive data Oral anticoagulant therapeutic ranges: Venous thromboembolism prophylaxis or treatment: 2.0-3.0 CARDIOLOGY Standard range: 2.0-3.0 High-intensity range: 2.5-3.5 Refer to indication-specific guidelines for appropriate target ranges for prosthetic heart valve replacement. Current interpretive data was last revised on 2019. 10/25/2024 1.65 (H) 0.90 - 1.20 Final Comment: Interpretive data Oral anticoagulant therapeutic ranges: Venous thromboembolism prophylaxis or treatment: 2.0-3.0 CARDIOLOGY Standard range: 2.0-3.0 High-intensity range: 2.5-3.5 Refer to indication-specific guidelines for appropriate target ranges for prosthetic heart valve replacement. Current interpretive data was last revised on 2019. 10/24/2024 1.87 (H) 0.90 - 1.20 Final Comment: Interpretive data Oral anticoagulant therapeutic ranges: Venous thromboembolism prophylaxis or treatment: 2.0-3.0 CARDIOLOGY Standard range: 2.0-3.0 High-intensity range: 2.5-3.5 Refer to indication-specific guidelines for appropriate target ranges for prosthetic heart valve replacement. Current interpretive data was last revised on 2019. Hgb Date Value Ref Range Status 10/26/2024 12.0 (L) 13.0 - 17.5 g/dL Final Hct Date Value Ref Range Status 10/26/2024 35.9 (L) 38.9 - 50.3 % Final Plt Date Value Ref Range Status 10/26/2024 94 (L) 150 - 400 K/cumm Final No results found for: PTT Assessment Patient was admitted on warfarin with a dose of 2 mg on Thursday and 1 mg all other days (Thu to Thu). Patient is on warfarin for an indication of atrial fibrillation. Goal INR is 2-3. Potential interacting medications: unasyn (could potentially increase INR) Plan Date INR Dose given Comments 10/18 2mg Patient already took dose at home. Daily INR ordered 10/19 3.14 1mg Slightly above goal will give home dose today and may need to decrease for further doses 10/20 3.12 1mg 10/21 2.34 1mg 10/22 2.56 1mg 10/23-10/24 on hold 10/25 1.65 2 mg Resume home dose 10/26 1.55 2 mg Stay with 2mg until INR starts to go up Will continue to follow patient's clinical progress daily. Soledad Camacho PharmD BCPS * Shaun Conway, OT - 10/25/2024 2:31 PM CDT Occupational Therapy NOTE / SESSION TYPE: DAILY PROGRESS / TREATMENT Patient's Name: Ian Monsalve Age / Sex: 84 y.o. / male Room: [place] [address] : 1940 Date of service: 10/25/24 TIME IN: 1438 TIME OUT: 1519 Patient Active Problem List Diagnosis Palpitations Acute congestive heart failure, unspecified heart failure type (HCC) No past medical history on file. Past Surgical History: Procedure Laterality Date CHOLECYSTECTOMY Precautions (including weight-bearing): Fall risk and Bed / chair alarm Subjective: I feel a lot better today Therapy Pain: Pre-therapy pain level: 0 /10 Pain location: No pain - Location N/A Pain Intervention(s): No pain - Intervention N/A Post-therapy pain level: 0 /10 Pain scale reference: 0-10 SCALE Objective: Appearance: Presentation upon OT arrival: Patient Sitting in bedside recliner Presentation upon OT departure: Patient Supine with head of bed elevated Bed / Chair alarm in place and activated upon OT departure: Yes Call light within arms reach of patient at end of session: Yes Completed patient handoff and notified BOARDING MACHINE OPERATOR / RN, name: Dinora, of patient's location and functional status upon completion of session VITAL SIGNS: Heart rate at rest: 78 BPM Heart rate with activity: 80 BPM O2 saturations at rest: 95 % O2 saturations with activity: 93 % Oxygen LPM: 2L Cognitive / Perceptual: A & O x 4 Pt able to follow one step commands with min difficulty d/t PAMUNKEY. Pt is pleasant and cooperative Mobility / Transfers: Bed Mobility: sit to supine supervision assist Transfer(s): sit to stand/stand to sit supervision assist Bedside recliner to EOB supervision assist Living Skills / Other Activities: UE dressing: Patient completed upper body dressing of Hospital gown as robe while Sitting in bedside chair / recliner with overall Minimal assistance. Patient required assistance for pulling around back, verbal cue(s), and set-up of items. UE THERAPEUTIC EXERCISES: EXERCISE TYPE: B UE AROM, B UE STRENGTHENING USING 3 # HAND/WRIST WEIGHTS, and CHEST MOBILIZATION EXERCISE(S) COMPLETED WITH NUMBER OF REPETITIONS: SHOULDER FLEXION 10 reps , SHOULDER HORIZONTAL ADDUCTION 20 sec, SHOULDER BACKWARD ROW 10 reps, ELBOW FLEXION 10 reps, WRIST FLEXION 10 reps, WRIST EXTENSION 10 reps, CHEST MOBILIZATION- STRAIGHT ARMS OUT IN FRONT 10 reps, CHEST MOBILIZATION- ELBOW CIRCLES 10 reps, and CHEST MOBILIZATION- SHOULDER SHRUGS 10 reps shoulder press 20 sec, punches 20sec NUMBER OF SETS: 1 ASSIST LEVEL: Initial instructions / demonstration, min verbal cues, and min physical assistance LOCATION OF COMPLETION: Seated in bedside recliner TOLERANCE: Good tolerance, pt with no complaints of pain or SOB. Pt required no rest breaks . Bathing: Patient completed spongebathing including neck, face, and chest while Sitting in bedside chair / recliner with overall Set-up / clean-up assistance. Patient required assistance for set-up of items. Caregiver Present: No Education & Training Provided: Role of OT, OT plan of care, ADL training, Compensatory ADL strategies, Bed mobility training, Functional transfer training, Balance training, UE home exercise program, and Energy conservation education Assessment: Activity tolerance / response to OT session: GOOD PARTICIPATION, GOOD MOTIVATION, RECEPTIVE TO EDUCATION / TRAINING, FAIR TOLERANCE, and 1 REST BREAKS REQUIRED Progress towards goals: Please refer to care plan from this date for progress towards individual goals Plan: Therapy Plan: Rehab Potential (Prognosis): good OT Recommendations This Date: OT RECOMMENDATIONS: OT Recommendation: (S) Home with 24 hour supervision, Home Health OT Flow sheet updated and OT Consultation in Regards to Change in Discharge Recommendations: YES /NO: No Additional recommendation comments: Frequency of therapy:OT Frequency during current admission: 3-5x/wk If this is the last note, consider this the discharge summary Shaun Conway OT 10/25/24 * Soledad Camacho, [facility] - 10/25/2024 12:13 PM CDT Pharmacokinetic Consult - Anticoagulation Dosing Ian Monsalve is a 84 y.o. male who has been consulted for pharmacy warfarin dosing and monitoring. Current Hematologic Labs INR Date Value Ref Range Status 10/25/2024 1.65 (H) 0.90 - 1.20 Final Comment: Interpretive data Oral anticoagulant therapeutic ranges: Venous thromboembolism prophylaxis or treatment: 2.0-3.0 CARDIOLOGY Standard range: 2.0-3.0 High-intensity range: 2.5-3.5 Refer to indication-specific guidelines for appropriate target ranges for prosthetic heart valve replacement. Current interpretive data was last revised on 2019. 10/24/2024 1.87 (H) 0.90 - 1.20 Final Comment: Interpretive data Oral anticoagulant therapeutic ranges: Venous thromboembolism prophylaxis or treatment: 2.0-3.0 CARDIOLOGY Standard range: 2.0-3.0 High-intensity range: 2.5-3.5 Refer to indication-specific guidelines for appropriate target ranges for prosthetic heart valve replacement. Current interpretive data was last revised on 2019. 10/23/2024 2.75 (H) 0.90 - 1.20 Final Comment: Interpretive data Oral anticoagulant therapeutic ranges: Venous thromboembolism prophylaxis or treatment: 2.0-3.0 CARDIOLOGY Standard range: 2.0-3.0 High-intensity range: 2.5-3.5 Refer to indication-specific guidelines for appropriate target ranges for prosthetic heart valve replacement. Current interpretive data was last revised on 2019. Hgb Date Value Ref Range Status 10/25/2024 12.9 (L) 13.0 - 17.5 g/dL Final Hct Date Value Ref Range Status 10/25/2024 38.5 (L) 38.9 - 50.3 % Final Plt Date Value Ref Range Status 10/25/2024 91 (L) 150 - 400 K/cumm Final No results found for: PTT Assessment Patient was admitted on warfarin with a dose of 2 mg on Thursday and 1 mg all other days (Wed to Mon). Patient is on warfarin for an indication of atrial fibrillation. Goal INR is 2-3. Potential interacting medications: unasyn (could potentially increase INR) Plan Date INR Dose given Comments 10/18 2mg Patient already took dose at home. Daily INR ordered 10/19 3.14 1mg Slightly above goal will give home dose today and may need to decrease for further doses 10/20 3.12 1mg 10/21 2.34 1mg 10/22 2.56 1mg 10/23-10/24 on hold 10/25 1.65 2 mg Resume home dose Will continue to follow patient's clinical progress daily. Soledad Camacho PharmD BCPS * Lonnie Landin MD - 10/25/2024 11:19 AM CDT Pulmonary Daily Progress Chief complaint/reason for consult: New O2 requirement, Pulmonary nodules, pulmonary hypertension . Interval History: Pt remains on NC; currently 1 lpm Does not use at home Notes less dyspnea and cough Family feels that he looks better No further hemoptysis No fevers Presenting History: 84 y/o CM who presented to the ED on 10/18/24 with complaints of shortness of breath that had been worsening over the last week. He was reportedly satting 70% on room air when EMSarrived. 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 States he has been having increased BAH. Does have cough at times that is productive of clear sputum. Started smoking age 12 and quit in 1996, smoked up to 1.5 ppd for 44 years, giving a 66 pack year hx. He has been on amiodarone in the past but not for sometime. 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 No service. CT Chest 10/18/24: Very severe emphysematous changes, moderate right pleural effusion, lung nodules Carries a hx of atrial fibrillation s/p multiple ablations, HFrEF, ischemic cardiomyopathy s/p BiVICD, CKD, CAD s/p CABG, Allergies: Allergies Allergen Reactions Trazodone Hcl Unknown Morphine Hydrocodone Unknown Lunesta [Eszopiclone] Other (See comments) Gave him crazy dreams Tramadol Nausea only Vicodin [Hydrocodone-Acetaminophen] Nausea only Medications: Scheduled Meds:ampicillin-sulbactam, 3 g, intravenous, Q12H THERESA [Held by Provider] aspirin, 81 mg, oral, Daily atenoloL, 50 mg, oral, Daily atorvastatin, 20 mg, oral, Nightly calcitRIOL, 0.25 mcg, oral, Daily [Held by Provider] digoxin, 62.5 mcg, oral, Once per day on Thursday dofetilide, 125 mcg, oral, BID fenofibrate nanocrystallized, 145 mg, oral, Daily furosemide, 40 mg, intravenous, Daily ipratropium-albuteroL, 3 mL, nebulization, Q4H While awake (RT) levothyroxine, 25 mcg, oral, Daily - 0600 midodrine, 10 mg, oral, TID AC pantoprazole DR, 40 mg, oral, Daily senna-docusate, 1 tablet, oral, BID tamsulosin, 0.4 mg, oral, Daily with dinner [Held by Provider] warfarin, 1 mg, oral, Once - 1800 Continuous Infusions: PRN Meds:. acetaminophen clorazepate fluticasone propionate ondansetron ramelteon ROS Above review of system reviewed on 10/25/2024 Vitals: Vitals: 10/24/24 2343 10/25/24 0504 10/25/24 0735 10/25/24 0815 BP: 95/53 96/61 100/62 BP Location: Left arm Right arm Left arm Patient Position: HOB 30 degrees Sitting Lying Pulse: 80 80 79 Resp: 17 18 18 Temp: 36.7 ??C (98.1 ??F) 36.2 ??C (97.2 ??F) 36.8 ??C (98.2 ??F) TempSrc: Axillary Oral Oral SpO2: 92% 94% 91% 91% Weight: Height: Temp (24hrs), Av.6 ??C (97.9 ??F), Min:36.2 ??C (97.2 ??F), Max:36.8 ??C (98.2 ??F) Intake/Output Summary (Last 24 hours) at 10/25/2024 1119 Last data filed at 10/25/2024 0910 Gross per 24 hour Intake -- Output 1735 ml Net -1735 ml Physical Exam Vitals and nursing note reviewed. Constitutional: General: He is not in acute distress. Appearance: He is well-developed. HENT: Head: Normocephalic and atraumatic. Comments: Hard of hearing Eyes: Conjunctiva/sclera: Conjunctivae normal. Cardiovascular: Rate and Rhythm: Normal rate and regular rhythm. Heart sounds: No murmur heard. Pulmonary: Effort: Pulmonary effort is normal. No respiratory distress. Breath sounds: Normal breath sounds. No stridor. No wheezing or rales. Abdominal: General: Bowel sounds are normal. Palpations: Abdomen is soft. Musculoskeletal: Right lower leg: No edema. Left lower leg: No edema. Skin: General: Skin is warm and dry. Neurological: General: No focal deficit present. Mental Status: He is alert. Psychiatric: Behavior: Behavior normal. Lab/Radiology/Diagnostic Review: Labs: Recent Labs Lab Units 10/25/2458 10/24/245 10/23/24 0335 WBC K/cumm 3.54* 3.81 5.82 HEMOGLOBIN g/dL 12.9* 12.8* 13.8 HEMATOCRIT % 38.5* 38.2* 41.6 PLATELETS K/cumm 91* 81* 87* NEUTROS PCT % 72.6 70.6 78.0 LYMPHS PCT % 13.0 14.7 8.8 MONOS PCT % 11.0 11.0 11.3 EOS PCT % 2.5 2.9 1.4 Recent Labs Lab Units 10/25/2458 10/24/24 0415 10/23/24 0335 SODIUM mmol/L 134* 132* 137 POTASSIUM PLASMA mmol/L 3.8 4.2 4.1 CHLORIDE mmol/L 93* 91* 97 CO2 mmol/L 34* 32 33* ANIONGAP mmol/L 7 9 7 GLUCOSE mg/dL 102 96 100 BUN SERUM mg/dL 46* 46* 44* CREATININE mg/dL 1.70* 1.90* 1.70* CALCIUM mg/dL 8.6 8.4* 8.8 Imaging: CT abd 10/21/24: similar b effusions, R>L w RLL consolidation CXR 10/23/24: RLL inf, no visible large effusion Other diagnostic tests: Echo 10/20/24: EF 37%, LVDD, RV volume overload, RVSP 60 I have personally reviewed above laboratory findings, chest imaging, and diagnostic tests 10/25/2024 Assessment and Plan: Acute hypoxic respiratory insufficiency Severe emphysema RLL cavitary lesion: pneumonia vs malignancy vs bullous disease B effusions, R>L, likely due to CHF, parapneumonic also possible Afib CHF CKD CAD w hx CABG Recs: - Wean supplemental O2 for SpO2 88-92% - Nebs TID - Unasyn day 7, completed azithromycin - pleural effusion appears improved or resolved on current imaging; will not likely need thoracentesis; OK to resume warfarin from pulmonary perspective - Will need repeat imaging in 4-6 weeks * Leonel Verma PTA - 10/25/2024 10:31 AM CDT Physical Therapy PT PROGRESS NOTE PATIENT'S NAME:Ian Monsalve :1940 AGE:84 y.o. ROOM:[place] [address] No past medical history on file. Past Surgical History: Procedure Laterality Date CHOLECYSTECTOMY Patient Active Problem List Diagnosis Palpitations Acute congestive heart failure, unspecified heart failure type (HCC) TIME IN: 1031 TIME OUT: 1058 SUBJECTIVE Pt states that he wants to do therapy consistently to get stronger and go home MENTAL STATUS/ORIENTATION: alert and oriented x4 PAIN: Pre-therapy pain level: 0/10 Pain location: n/a Pain intervention: not needed Post-therapy pain level/response to intervention: 0/10 OBJECTIVE PRECAUTIONS: fall and bed / chair alarm APPEARANCE/POSTURE: Pt supine w/ HOB elevated, on 3 liters of 02, bed alarm activated, pt in no distress, catheter in place, and pt pleasantly agreeable to therapy MOBILITY DOCUMENTATION: Bed Mobility: SPV for supine to sit Transfers: SBA of 1 for sit to and from stands Gait: 150ft x 1 using wheeled walker- SBA of 1. Decreased ashley, decreased step length bilaterally, downward gaze, and flexed posture. TREATMENT: Pt performed seated exercises x 10 reps bilaterally: ankle pumps, LAQ's, hip IR/ER, and marches Minassist of 1 APPEARANCE/POSTURE (end of session): Pt sitting in recliner w/ call light in reach, pt in no distress, on supplemental 02, and handoff given nursing EDUCATION:bed mobility , therapeutic activity, therapeutic exercises , functional transfer training, gait training , endurance training, and safety RESPONSE TO EDUCATION: demonstrated understanding and needs reinforcement ASSESSMENT Activity tolerance/response to P.T.: Pt tolerated session w/o complaints or adverse effects. Pt eager to get stronger in therapy Barriers to learning: Physical Barriers to discharge: Decreased endurance and Lower extremity weakness Patient continues progressing toward previously set goals which remain appropriate at this time. PLAN PT Discharge Recommendations this date: PT Recommendation/Plan: Home with 24 hour supervision, Home Health PT Patient at high risk for: Falls, Injury due to reduced functional status, Injury due to balance deficits PT Frequency during current admission: 3-5x/wk CARE PLAN Multi-Disciplinary Problems (from Physical Therapy) Active Problems [place] [facility] [place]: 10/19/24 Goal Start Date Expected End Date End Date PT [facility] 1 10/19/24 10/27/24 -- Goal Details: Patient will transfer supine to/from sit with modified indep. Progressing Goal Start Date Expected End Date End Date PT [facility] 2 10/19/24 10/27/24 -- Goal Details: Patient will transfer sit to/from stand with modified indep. Progressing Goal Start Date Expected End Date End Date PT [facility] 3 10/19/24 10/27/24 -- Goal Details: Patient will amb 75' with wh walker and modified indep. Progressing Goal Start Date Expected End Date End Date [facility] 4 10/19/24 10/27/24 -- Goal Details: Patient will negotiate 1 step with appropriate method and cg assist. Progressing Goal Start Date Expected End Date End Date [facility] 5 10/19/24 10/27/24 -- Goal Details: Patient will perform ZOILA LE ROM ex with SBA. Progressing If this is the last note, please consider this the discharge summary. Cosigned by Nely Sheikh, PT at 10/25/2024 11:19 AM CDT * Delvin Mendenhall MD - 10/25/2024 10:06 AM CDT Nephrology Progress Note [facility] SUBJECTIVE 10/25 Appears better. Renal fn stable. 10/24 Cr stable. Urology notes appreciated. Urine reportedly clearing. Persistent pleural effusion. 10/23 Continued gross hematuria. Overall calm. Dyspnea is stable. Will need CBI. 10/22 Appears better. Some s/p pain. Dyspnea appears stable. Guerrero draining yellow urine. All labs and data reviewed. 10/21 Worse today. Guerrero placed. Cr 2.2. D/w . 10/20 Doing better. Ambulated with assistance. Renal mass noted. 10/19 Some better. Cr 2.3 CKD washburn ongoing. IV ABX,. Has PNA and CHF. OBJECTIVE Vitals: Vitals: 10/25/24 1520 10/25/24 1600 10/25/24 1654 10/25/242015 BP: 119/70 112/74 BP Location: Left arm Left arm Patient Position: Lying Pulse: 80 80 80 Resp: 19 19 Temp: 36.4 ??C (97.5 ??F) 36.4 ??C (97.5 ??F) TempSrc: Oral Oral SpO2: (!) 86% 98% 92% Weight: Height: Intake/Output Summary (Last 24 hours) at 10/25/2024 2206 Last data filed at 10/25/2024 1836 Gross per 24 hour Intake 110 ml Output 1310 ml Net -1200 ml REVIEW OF SYSTEMS Review of Systems Constitutional: Negative. HENT: Negative. Eyes: Negative. Respiratory: Negative. Cardiovascular: Negative. Gastrointestinal: Negative. Genitourinary: Negative. Musculoskeletal: Negative. Skin: Negative. Allergic/Immunologic: Negative. Hematological: Negative. All other systems reviewed and are negative. PHYSICAL EXAM Physical Exam Constitutional: Appears well-developed. HENT: wnl Head: Normocephalic. Eyes: Pupils are equal, round, and reactive to light. Neck: Normal range of motion. Neck supple. Cardiovascular: Normal rate. Pulmonary/Chest: Effort normal and breath sounds normal. Abdominal: Soft. Musculoskeletal: Normal range of motion. Neurological: Alert, oriented. Skin: Skin is warm. Nursing note and vitals reviewed. MEDICATIONS Current Facility-Administered Medications: acetaminophen (TYLENOL) tablet 500 mg, 500 mg, oral, Q6H PRN, Luan Guillermo DO, 500 mg at 10/25/242138 ampicillin-sulbactam (UNASYN) 3 g in sodium chloride 0.9% 100 mL IVPB, 3 g, intravenous, Q12H [facility]ITAL[facility]feany[facility] Jessica Houston, MD, Last Rate: 220 mL/hr at 10/25/242137, 3 g at 10/25/242137 [Held by Provider] aspirin enteric coated tablet 81 mg, 81 mg, oral, Daily, Namrata Spencer NP, 81 mg at 10/24/24 1001 atenoloL (TENORMIN) tablet 50 mg, 50 mg, oral, Daily, Namrata Spencer NP, 50 mg at 10/25/24 09 atorvastatin (LIPITOR) tablet 20 mg, 20 mg, oral, Nightly, Namrata Spencer NP, 20 mg at 10/25/242138 calcitRIOL (ROCALTROL) capsule 0.25 mcg, 0.25 mcg, oral, Daily, Namrata Spencer NP, 0.25mcg at 10/25/24 09 clorazepate (TRANXENE) tablet 7.5 mg, 7.5 mg, oral, BID PRN, Luan Guillermo DO [Held by Provider] digoxin (LANOXIN) tablet 62.5 mcg, 62.5 mcg, oral, Once per day on Thursday, Donte Camacho MD dofetilide (TIKOSYN) capsule 125 mcg, 125 mcg, oral, BID, Namrata Spencer NP, 125 mcg at10/25/242138 fenofibrate nanocrystallized (TRICOR) tablet 145 mg, 145 mg, oral, Daily, Namrata Spencer NP, 145 mg at 10/25/24907 fluticasone propionate (FLONASE) 50 mcg/actuation nasal spray 2 spray, 2 spray, each nostril, DailyPRN, Namrata Spencer NP furosemide (LASIX) 10 mg/mL injection 40 mg, 40 mg, intravenous, Daily, HoracioluMaribell truong, ZACHERY, 40 mgat 10/25/24907 ipratropium-albuteroL (DUO-NEB) 0.5-2.5 mg/3 mL nebulizer solution 3 mL, 3 mL, nebulization, Q4H While awake (RT), Namrata Spencer NP, 3 mL at 10/25/242030 levothyroxine (SYNTHROID) tablet 25 mcg, 25 mcg, oral, Daily - 0600, Namrata Spencer NP,25 mcg at 10/25/24 050 midodrine (PROAMATINE) tablet 10 mg, 10 mg, oral, TID AC, Delvin Mendenhall MD, 10 mg at 10/25/241829 ondansetron (ZOFRAN) injection 4 mg, 4 mg, intravenous, Q6H PRN, Namrata Spencer NP pantoprazole DR (PROTONIX) extended release tablet 40 mg, 40 mg, oral, Daily, Carla Jean MD,40 mg at 10/25/24903 ramelteon (ROZEREM) tablet 8 mg, 8 mg, oral, Nightly PRN, Namrata Spencer NP, 8 mg at 10/25/242138 senna-docusate (PERICOLACE) 8.6-50 mg per tablet 1 tablet, 1 tablet, oral, BID, Luan Guillermo DO, 1 tablet at 10/25/242138 tamsulosin (FLOMAX) extended release capsule 0.4 mg, 0.4 mg, oral, Daily with dinner, Luan Guillermo DO, 0.4 mg at 10/25/24 1830 Lab/Radiology/Diagnostic Review: Recent Results (from the past 24 hours) CBC with auto differential Collection Time: 10/25/24 6:58 AM Result Value Ref Range WBC 3.54 (L) 3.80 - 9.90 K/cumm Hgb 12.9 (L) 13.0 - 17.5 g/dL Hct 38.5 (L) 38.9 - 50.3 % Plt 91 (L) 150 - 400 K/cumm MPV 11.6 9.1 - 12.3 fL RBC 4.15 (L) 4.30 - 5.80 M/cumm MCV 92.8 81.3 - 96.4 fL MCH 31.1 27.1 - 33.3 pg MCHC 33.5 32.3 - 35.7 g/dL RDW CV 16.2 (H) 11.1 - 14.9 % RDW SD 54.5 (H) 35.7 - 48.1 fL NRBC abs 0.00 0.00 - 0.01 K/cumm Basic metabolic panel Collection Time: 10/25/24 6:58 AM Result Value Ref Range Sodium 134 (L) 135 - 145 mmol/L Potassium, pl 3.8 3.3 - 4.9 mmol/L Chloride 93 (L) 97 - 110 mmol/L CO2 34 (H) 22 - 32 mmol/L Anion gap 7 2 - 15 mmol/L BUN 46 (H) 6 - 25 mg/dL Creatinine 1.70 (H) 0.80 - 1.30 mg/dL Glucose 102 70 - 199 mg/dL Calcium 8.6 8.5 - 10.3 mg/dL Protime-INR Collection Time: 10/25/24 6:58 AM Result Value Ref Range PT 18.0 (H) 9.7 - 13.0 sec INR 1.65 (H) 0.90 - 1.20 Differential, auto Collection Time: 10/25/24 6:58 AM Result Value Ref Range Neutrophil abs 2.57 1.50 - 6.50 K/cumm Imm gran abs 0.01 0.00 - 0.10 K/cumm Lymphocyte abs 0.46 (L) 0.80 - 3.30 K/cumm Monocyte abs 0.39 0.20 - 0.80 K/cumm Eosinophil abs 0.09 0.00 - 0.50 K/cumm Basophil abs 0.02 0.00 - 0.10 K/cumm Neutrophil pct 72.6 % Imm gran pct 0.3 % Lymphocyte pct 13.0 % Monocyte pct 11.0 % Eosinophil pct 2.5 % Basophil pct 0.6 % eGFR Collection Time: 10/25/24 6:58 AM Result Value Ref Range eGFR 39 (L) >=60 mL/min/1.73 m2 Recent Labs Lab Units 10/19/24 1233 CLARITY U Clear COLOR U Yellow KETONES UR Negative NITRITE UR Negative SPEC GRAV U 1.007 UROBILINOGEN UR mg/dL <2.0 CT Chest WO Contrast Result Date: 10/18/2024 Narrative: EXAMINATION: Computed tomography of the chest without intravenous contrast HISTORY: Abnormal chest radiograph. TECHNIQUE: Transaxial computed tomographic images of the chest were obtained without intravenous contrast according to the standard protocol. COMPARISON: Chest radiograph dated same day. FINDINGS: There is a moderately sized right pleural effusion with fluid in the right majorfissure and right upper, middle, and lower lobe consolidations most notable in the right lower lobe. Small left pleural effusion with left lower lobe atelectasis. Severe centrilobular emphysematous changes. Poststernotomy changes. Mild mediastinal lymphadenopathy with largest mediastinal node measur ing 1.1 cm in short axis dimension. Nodules in the left upper lobe, largest measuring approximately1.1 x 0.5 cm. Follow-up suggested. Main pulmonary [...] may represent pseudo-thickening from underdistention versus gastritis. Impression: 1. Moderately sized right pleural effusion with [...] Electronically signed by: Rajendra Oh II, D.O. ECG 12 lead Result Date: 10/18/2024 Narrative: Vent Rate: 80 bpm RR Interval: 749 msec RI Interval: 140 msec QRS Duration: 164 msec QT Interval: 377 msec QTC Interval: 412 msec P-R-T [place]: -52 - 226 - 226 degrees IMPRESSION: ELECTRONICVENTRICULAR PACEMAKER ST DEPRESSION, CONSIDER SUBENDOCARDIAL INJURY [0.1+ mV ST DEPRESSION] ABNORMAL ECG No change compared to prior EKG Electronically Signed By: Emilio Ratliff MD [facility] XR Chest 1 Vw Portable Result Date: 10/18/2024 Narrative: EXAMINATION: XR CHEST 1 VIEW DATE: 10/18/2024 11:20 AM INDICATION: Shortness of breath. COMPARISON: 02/23/2023. Impression: ICD leads are intact. Post sternotomy changes are noted. Cardiac mediastinal silhouette within normal limits. There is a small right pleural effusion. Opacities in the right lower lobe suggestive of pneumonia, increased from prior. Follow-up suggested to ensure resolution. No acute osseous abnormality. Electronically signed by: Rajendra Oh II, D.O. ASSESSMENT/PLAN CKD 3b CRS. CHF/dyspnea. R LL PNA. MBD. ICD status. RECOMMENDATIONS IV diuresis. CKD washburn. Overall improved. -10/20, BP low, start midodrine, IV ABX, decrease diuresis, CT scan kidneys. -10/21, urinary retention, ROSA worse, guerrero placed, will follow, CT scan to be reviewed. -10/22, CT scan kidneys shows exophytic cysts, will do MRI as o/p, continue guerrero, ROSA better, good UO, no new changes, difficult guerrero yesterday. -Cr 1.7 and baseline, dyspnea better, gross hematuria, difficult guerrero, traumatic hematuria, Needs CBI, will reconsult Urology. -cr is baseline, guerrero irrigation, likely needs thoracentesis, for both diagnostic and therapeutic purposes, avss, lytes stable. -CR is stable, cxr better, can switch to po diuretics tomorrow. I can be reached at [phone] with any concerns. Thank you Luan Guillermo DO for the consult. Delvin Mendenhall MD [employer] [phone] * Shaunna Watters, RD - 10/25/2024 9:08 AM CDT NUTRITION ASSESSMENT Nutrition Status: Patient at risk for malnutrition, but does not meet AAIM (ASPEN) criteria for malnutrition. REASON FOR ASSESSMENT: Length of Stay Encounter Date: 10/25/24 10:31 AM Admission Date: 10/18/2024 LOS: 7 days HPI: Patient is a 84 y.o. 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 Patient reports shortness of breath started 7 days ago and progressively got worse. EMS was called for further evaluation. On EMS arrival, patient was noted to be satting in the 70s on room air. 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 Patient also endorses poor appetite associated with generalized weakness. Ambulates with a cane at baseline. Also reports occasional productive cough with clear phlegm. Denies any other associated symptoms. Reports compliance with his home medications. 10/25: Modifying diet to low sodium. Ordering Gelatien bid. Objective No past medical history on file. Past Surgical History: Procedure Laterality Date CHOLECYSTECTOMY Social History Tobacco Use Smoking status: Former Current packs/day: 0.00 Types: Cigarettes Start date: 1955 Quit date: 1997 Years since quittin.4 Passive exposure: Past Smokeless tobacco: Never Substance and Sexual Activity Drug use: Not on file Sexual activity: Not on file Alcohol Use: Unknown (02/23/2023) AUDIT-C Frequency of Alcohol Consumption: Not on file Average Number of Drinks: Patient does not drink Frequency of Binge Drinking: Not on file MEDICATION/LAB REVIEW: Scheduled Meds: ampicillin-sulbactam, 3 g, intravenous, Q12H THERESA [Held by Provider] aspirin, 81 mg, oral, Daily atenoloL, 50 mg, oral, Daily atorvastatin, 20 mg, oral, Nightly calcitRIOL, 0.25 mcg, oral, Daily [Held by Provider] digoxin, 62.5 mcg, oral, Once per day on Thursday dofetilide, 125 mcg, oral, BID fenofibrate nanocrystallized, 145 mg, oral, Daily furosemide, 40 mg, intravenous, Daily ipratropium-albuteroL, 3 mL, nebulization, Q4H While awake (RT) levothyroxine, 25 mcg, oral, Daily - 0600 midodrine, 10 mg, oral, TID AC pantoprazole DR, 40 mg, oral, Daily senna-docusate, 1 tablet, oral, BID tamsulosin, 0.4 mg, oral, Daily with dinner [Held by Provider] warfarin, 1 mg, oral, Once - 1800 Continuous Infusions: PRN Meds: acetaminophen clorazepate fluticasone propionate ondansetron ramelteon Recent Labs Lab Units 10/25/2465710/23/2433410/22/2435310/21/24 0510/20/24 0638 10/19/24 0512 10/18/24 1041 SODIUM mmol/L 134* < > 134* 133* 133* < > 132* POTASSIUM PLASMA mmol/L 3.8 < > 4.3 4.5 4.4 < > 5.0* CHLORIDE mmol/L 93* < > 95* 95* 96* < > 97 CO2 mmol/L 34* < > 33* 28 30 < > 28 BUN SERUM mg/dL 46* < > 47* 48* 46* < > 29* CREATININE mg/dL 1.70* < > 1.99* 2.23* 2.43* < > 1.62* [id number] mL/min/1.73 m2 39* < > 32* 28* 26* < > 42* CALCIUM mg/dL 8.6 < > 8.8 8.8 8.8 < > 9.6 ALBUMIN g/dL -- -- -- -- -- -- 3.5 MAGNESIUM mg/dL -- -- 2.1 2.1 2.0 < > -- < > = values in this interval not displayed. Recent Labs Lab Units 10/25/24 0658 10/24/24 0415 10/23/24 03310/22/24 03510/21/24 0510/20/24 0638 10/19/24 0512 GLUCOSE mg/dL 102 96 100 101 94 106 87 No results found for: ALT, AST, BILIRUBIN, ALKPHOS, LIPASE Lab Results Component Value Date HGBA1C 5.6 10/19/2024 NURSING ASSESSMENT: Last BM Date: 10/24/24 Bowel Sounds (All Quadrants): Active, Present Tru Scale Score: 19 Skin Integrity: Bruising Vital Signs BP: 100/62 Temp: 36.8 ??C (98.2 ??F) Pulse: 79 Resp: 18 SpO2: 91 % Intake/Output Summary (Last 24 hours) at 10/25/2024 1031 Last data filed at 10/25/2024 0910 Gross per 24 hour Intake -- Output 1735 ml Net -1735 ml Adult Malnutrition Scoring Tool (MST) What diet do you follow at home?: Regular Have You Recently Lost Weight Without Trying?: No Have you been eating poorly because of a decreased appetite?: No Malnutrition Screening Tool (MST) Score: 0 Within the past 12 months, you worried that your food would run out before you got the money to buymore.: Never true Within the past 12 months, the food you bought just didn't last and you didn't have money to get more.: Never true Anthropometrics Weight: 77 kg (169 lb 12.1 oz) Admission Weight : 77 kg Weight Change: -1.47 kg (-3.24 lbs) IBW/kg (Calculated) : 67.2 kg Height: 170.2 cm (5' 7.01) Weight in (lb) to have BMI = 25: 159.3 BMI (Calculated): 26.6 BMI Classification: BMI 25.0 - 29.9 Overweight Wt Readings from Last 10 Encounters: 10/22/24 77 kg (169 lb 12.1 oz) 02/23/23 88.5 kg (195 lb) ESTIMATED NEEDS: Total Kcal/kg Estimated Needs : 1925 Kcal/k. Type of Weight Used for Estimated Kcals: Current Total Protein Estimated Needs (gm): 84.7 Protein Needs Based on g/k.1 Type of Weight Used for Estimated Protein : Current Total Fluid Estimated Needs: 1925 Fluid Needs Based on : 1 ml/kcal (1-2 L CHF) Type of Weight Used for Estimated Fluid Needs: Current Dietary Orders (From admission, onward) Start Ordered 05/27/25 1755 Adult Diet Restricted; Low Fat, Low Chol, Low Na Diet effective now Question Answer Comment (CH) Diet type Restricted Fat / Sodium Restriction: Low Fat, Low Chol, Low Na 10/18/241753 Allergies: Reviewed. IMPRESSION: Pt reports his appetite has been poor for the past month. Reports eating about two meals daily and drinking supplements like Ensure, Pt reports he doesn't like them but has been trying to drink anyway. Agreeable to trying Gelatein instead. Pt reports he has been losing wt, states his clothes fit loser. Wt hx limited, CBW 169#, no wt method listed but Pt reports he was weighed this admission. NFPE completed. Pt at risk for malnutrition r/t poor intake. Last BM 10/24. Labs: Na, Chloride (L). CO2, BUN, Cr (H). + lasix, bowel regimen. Net Is/Os: -12.8 L. Skin intact. No rastafarian or cultural food preferences at this time. Negative hunger screen. AAIM (ASPEN) MALNUTRITION ASSESSMENT: Date of completion: 10/25 ASPEN/AND Malnutrition Screening: Patient does not meet malnutrition criteria NUTRITION FOCUSED PHYSICAL EXAM: Completed, physical findings below. Subcutaneous Fat Loss Orbital Region - Surrounding the Eye: Slightly dark circles Upper Arm Region - Triceps/Biceps: Ample fat tissue obvious between folds of skin Muscle Loss Sabianism Region - Temporalis Muscle: Slight depression Clavicle Bone Region - Pectoralis Major, Deltoid, Trapezius Muscles: Not visible in male, visible but not prominent in female Clavicle and Acromion Bone Region - Deltoid Muscle: Rounded, curves at arm/shoulder/neck Dorsal Hand - Interosseous Muscle: Muscle bulges, could be flat in some well nourished people Anterior Thigh and Patellar Region - Quadricep Muscle: Well-rounded, well- developed, Patella not prominent Posterior Calf Region - Gastrocnemius Muscle: Well-developed bulb of muscle NUTRITION DIAGNOSIS: Nutrition Diagnosis 1: Predicted suboptimal energy intake Related to: Loss of appetite Evidenced by: Patient interview INTERVENTION(S): Summary: Initial assessment, NFPE, Medical food supplement, Encouragement, Modify diet Removing low fat and cholesterol restrictions, keeping low sodium Adding gelatein bid GOAL(S): Adequate nutrition to meet estimated needs by next assessment, Oral intake to meet 75% estimated nutritional needs by next assessment, Tolerance of medical food supplement by next assessment MONITORING/EVALUATION: Appetite, Labs, I/O, Weight changes, Hydration status, Discharge plans, Electrolyte changes, Supplement tolerance, Food preferences, Stool patterns, PO intake, Plan of care Diet Instructions Continue to follow a heart healthy diet that is low in sodium, trans fat and saturated fat. Read the nutrition facts label on packages. Aim to eat less than 2,000mg sodium per day (about 500-700 mg per meal). Do not add salt to foods and avoid foods that are high sources of sodium, such as fast foods, fried/breaded foods, canned goods, deli meats and gravies/sauces. Increase your intake of foods high in fiber, such as whole grains, fruits and vegetables. For questions, can call [facility] Dietitian's Office at [phone]. Additional resources available online from the [place] at www.heart.org/en/healthy-living/healthy-eating Shaunna Watters MS, RDN, LDN * Nitesh Phillips NP - 10/25/2024 7:34 AM CDT INPATIENT PROGRESS NOTE - HOSPITALIST Ian Monsalve is a 84 y.o. male at Hospital Day ( LOS: 7 days ) Chief Complaint Chief Complaint Patient presents with Shortness of Breath Subjective Interval History Patient seen and examined; chart reviewed. 10/25: Patient lying in bed, no complaints at this time. Oxygen attempted to be weaned however O2 saturations dropped to 87%. Patient remains on 1 L nasal cannula Objective: Temp Av.6 ??C (97.9 ??F) Min: 36.2 ??C (97.2 ??F) Max: 36.8 ??C (98.2 ??F) BP Min: 94/59 Max: 127/113 Pulse Av.1 Min: 79 Max: 82 Resp Av Min: 17 Max: 20 SpO2 Av.2 % Min: 91 % Max: 94 % O2 Flow Rate (L/min): 2 L/min Date 10/24/24699 - 10/25/24 0659 10/25/24699 - 10/26/24 0659 Shift 8618-8206 4276-8100 24 Hour Total 7397-1010 5892-0530 24 Hour Total INTAKE Shift Total(mL/kg) OUTPUT Urine(mL/kg/hr) 800(0.9) 760(0.8) 1560(0.8) Shift Total(mL/kg) 800(10.4) 760(9.9) 1560(20.3) NET -800 -760 -1560 Weight (kg) 77 77 77 77 77 77 Intake/Output Summary (Last 24 hours) at 10/25/2024 0734 Last data filed at 10/25/2024 0500 Gross per 24 hour Intake -- Output 1560 ml Net -1560 ml Temp (24hrs), Av.6 ??C (97.9 ??F), Min:36.2 ??C (97.2 ??F), Max:36.8 ??C (98.2 ??F) PHYSICAL EXAMINATION General: Appears to be in no acute distress. HEENT: Head normocephalic, atraumatic. PERRLA. EOMI. Conjunctivae are clear. Sclerae are anicteric.Nares are patent. . Mucous membranes are moist. Neck: Supple. No lymphadenopathy, JVD. Lungs: Clear to auscultation. No crackle or wheezing noted. Cardiovascular: Irregular Abdomen: Soft, nontender, nondistended with positive bowel sounds. Obese Extremities: No clubbing, cyanosis or edema. Bilateral upper extremity bruising noted Neuro: Alert and oriented x3. Active Scheduled and PRN meds ampicillin-sulbactam, 3 g, Q12H THERESA aspirin, 81 mg, Daily atenoloL, 50 mg, Daily atorvastatin, 20 mg, Nightly calcitRIOL, 0.25 mcg, Daily [Held by Provider] digoxin, 250 mcg, Once per day on Thursday dofetilide, 125 mcg, BID fenofibrate nanocrystallized, 145 mg, Daily furosemide, 40 mg, Daily ipratropium-albuteroL, 3 mL, Q4H While awake (RT) levothyroxine, 25 mcg, Daily - 0600 midodrine, 10 mg, TID AC pantoprazole DR, 40 mg, Daily senna-docusate, 1 tablet, BID tamsulosin, 0.4 mg, Daily with dinner [Held by Provider] warfarin, 1 mg, Once - 1800 acetaminophen, 500 mg, Q6H PRN clorazepate, 7.5 mg, BID PRN fluticasone propionate, 2 spray, Daily PRN ondansetron, 4 mg, Q6H PRN ramelteon, 8 mg, Nightly PRN Continuous Infusions: Lab Review Recent Labs Lab Units 10/24/2441410/23/245 10/22/24 0354 WBC K/cumm 3.81 5.82 5.79 HEMOGLOBIN g/dL 12.8* 13.8 13.8 HEMATOCRIT % 38.2* 41.6 42.0 PLATELETS K/cumm 81* 87* 104* NEUTROS PCT % 70.6 78.0 79.6 LYMPHS PCT % 14.7 8.8 9.0 MONOS PCT % 11.0 11.3 10.0 EOS PCT % 2.9 1.4 0.9 Recent Labs Lab Units 10/24/2441410/23/245 10/22/24 0354 10/19/24 0512 10/18/24 1041 SODIUM mmol/L 132* 137 134* < > 132* POTASSIUM PLASMA mmol/L 4.2 4.1 4.3 < > 5.0* CHLORIDE mmol/L 91* 97 95* < > 97 CO2 mmol/L 32 33* 33* < > 28 ANIONGAP mmol/L 9 7 6 < > 7 GLUCOSE mg/dL 96 100 101 < > 90 BUN SERUM mg/dL 46* 44* 47* < > 29* CREATININE mg/dL 1.90* 1.70* 1.99* < > 1.62* CALCIUM mg/dL 8.4* 8.8 8.8 < > 9.6 ALBUMIN g/dL -- -- -- -- 3.5 ALK PHOS Units/L -- -- -- -- 52 ALT Units/L -- -- -- -- 15 AST Units/L -- -- -- -- 41 BILIRUBIN TOTAL mg/dL -- -- -- -- 2.1* < > = values in this interval not displayed. Radiology: XR Chest 1 Vw Portable Final Result Findings as described above. Electronically signed by: Coco Youngblood M.D. XR Chest 1 Vw Portable Final Result Persistent right effusion with patchy right lower lobe consolidation. Electronically signed by: Perla Cowart M.D. CT Abdomen Pelvis WO Contrast Final Result Limited study secondary to lack of intravenous contrast. No acute intra-abdominal abnormality. Colonic diverticulosis. Bilateral pleural effusions and bilateral lower lobe atelectasis. 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 Electronically signed by: Neel Morrison M.D. Transthoracic Echo (TTE) Complete W Doppler/CF Final Result US Retroperitoneal Complete Final Result 1. Possible mass in the right kidney measuring up to 1.4 cm. Suggest MRI of the kidneys for further evaluation. 2. Enlarged prostate. Electronically signed by: Rajendra Oh II, D.O. CT Chest WO Contrast Final Result 1. Moderately sized right pleural effusion with [...] Electronically signed by: Rajendra Oh II, D.O. XR Chest 1 Vw Portable Final Result ICD leads are intact. Post sternotomy changes are noted. Cardiac mediastinal silhouette within normal limits. There is a small right pleural effusion. Opacities in the right lower lobe suggestive of pneumonia, increased from prior. Follow-up suggested to ensure resolution. No acute osseous abnormality. Electronically signed by: Rajendra Oh II, D.O. ECG: Results for orders placed during the hospital encounter of 10/18/24 ECG 12 lead Narrative Vent Rate: 80 bpm RR Interval: 749 msec RI Interval: 140 msec QRS Duration: 164 msec QT Interval: 377 msec QTC Interval: 412 msec P-R-T [place]: -52 - 226 - 226 degrees IMPRESSION: ELECTRONIC VENTRICULAR PACEMAKER ST DEPRESSION, CONSIDER SUBENDOCARDIAL INJURY [0.1+ mV ST DEPRESSION] ABNORMAL ECG No change compared to prior EKG Electronically Signed By: Emilio Ratliff MD [facility] Assessment/Plan Acute hypoxic respiratory failure on admission. Differential includes CHF exacerbation, pneumonia. Currently on 1L NC - titrate as able. CXR - Persistent right effusion with patchy right lower lobe consolidation. 10/24: Repeat x-ray showing pulmonary vascular congestion right lower lobe infiltrate. Congestive heart failure exacerbation on admission. BNP 8636. 2D echo performed- EF 37%, Mod-Severepulmonary htn, Diastolic dysfunction present. On IV Lasix daily - monitor UOP. Cardiology service consulted. Initiate GDMT as appropriate. Moderately sized right pleural effusion with consolidations in the right upper, right lower, and right middle lobes suggestive of multifocal pneumonia, on admission CT. Respiratory PCR negative. Blood cultures NGTD. Strep pneumoniae and Legionella antigens are negative. Was on azithromycin, Rocephin starting on 10/18/2024; on 10/19/2024 Rocephin was changed to Unasyn - continue unasyn therapy. Pulmonology following. Possible need for thoracentesis if worsens - holding coumadin.repeat CXR PVC, RLLinfiltrate. Will need repeat imaging in 4-6 weeks otherwise Multiple left upper lobe pulmonary nodules largest measuring 1.1 cm, on admission CT. Dilated main pulmonary artery suggestive of pulmonary arterial hypertension, on admission CT. Severe centrilobular emphysematous changes, on admission CT. Nonspecific mild gastric wall thickening may represent pseudo-thickening from underdistention versus gastritis, on admission CT. On PPI. Atrial fibrillation, currently paced. On digoxin, will hold due to elevated level. On Tikosyn. On Coumadin(Currently on hold), daily INRs. Hyperlipidemia. On statin, Tricor. Hypothyroidism. On Synthroid. CAD. S/p coronary artery bypass graft x two - left internal mammary artery to the left anterior descending, left radial artery to the posterior descending artery, on 02/24/1997. History of VT, status post ablation on 12/31/2015, 04/08/2016 EP study. Hypotension - improved with midodrine - Try to avoid IVF in setting of volume overload. Right Kidney Mass - US retroperitoneum - Right kidney mass up to 1.4 cm - MRI recommended, patient with defibrillator - not able to obtain an MRI. Will discuss with nephrology regarding recommendations for further evaluation. Urine retention - reported abdominal pain - CT imaging performed - No acute findings noted. On review - bladder looked distended. Bladder scan done with 600 cc - straight cath done. Q6 hour bladder scans - if additional straight cath needed, recommend guerrero placement. Guerrero catheter exchanged on 10/22 due to clotting and inability to empty. Tamsulosin initiated. Urology following - recommending discharging patient with guerrero in place to allow bladder decompression. Continue Flomax and follow up as outpatient. Hematuria, persistent - likely 2/2 trauma from guerrero insertion + being on blood thinners. Urology consulted. Hold warfarin for now (Cleared to do so by cardiology) Constipation -started on bowel regimen Hyponatremia, follow. Slight hyperkalemia, resolved. ROSA on CKD. Avoid nephrotoxic agents as able. Nephrology following - appreciate recommendations Thrombocytopenia of 81, follow. Elevated digoxin level of 1.3, follow. Troponin trend of 51, 54, 51, 51, with delta of 3, 0, 0; nonspecific. Prophylaxis. Protonix, Coumadin. PT/OT VTE Prophylaxis Laboratory and imaging data independently reviewed by me Prior records and Care Everywhere if available were reviewed. DISPOSITION: pending hospital course LIMITED - No CPR CONSULTS IP CONSULT TO CARDIOLOGY IP CONSULT TO NEPHROLOGY PHARMACY TO DOSE WARFARIN IP CONSULT TO PULMONOLOGY IP CONSULT TO UROLOGY IP CONSULT TO UROLOGY Please note: This note was created in part using the [employer] Direct dictation system. Timber Setter variances May occur . Despite proofreading, typographical and Grammatical errors may occur. 10/25/2024 7:34 AM [facility] [phone] * Donte Camacho MD - 10/25/2024 6:44 AM CDT Cardiology follow-up note-[facility] Pertinent info was reviewed. The patient was seen room 420. Patient appears to be in better spirits today Cardiology Note summary Will defer diuretic to nephrology team Pleural effusion will defer need to thoracentesis to Pulmonary team Chest Decubitus films may be beneficial versus doing CT without contrast HPI: Patient is a 84 y.o. 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 Patient reports shortness of breath started 7 days ago and progressively got worse. EMS was called for further evaluation. On EMS arrival, patient was noted to be satting in the 70s on room air. 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 Patient also endorses poor appetite associated with generalized weakness. Ambulates with a cane at baseline. Also reports occasional productive cough with clear phlegm. Denies any other associated symptoms. Reports compliance with his home medications. On arrival to Emergency Room, vital signs, temp 97.6??, pulse 80, respiration 24, BP 121/81, O2 sats 99%. Labs, sodium 132, potassium 5.0, creatinine 1.62, BUN 29, proBNP 8,636, PLT 132. Initial troponin slightly elevated with insignificant delta.Paced rhythm on EKG. Respiratory panel negative. CT chest showing moderately sized right pleural effusion with consolidation in the right upper, right lower and right middle lobe suggestive of multifocal pneumonia. Multiple left upper lobe pulmonary nodules. Dilated main pulmonary artery suggestive of pulmonary arterial hypertension. Severe centrilobular emphysema toes changes. Nonspecific mild gastric wall thickening may represent pseudo thickening from under distention versus gastritis. Due to above, patient will be admitted for further evaluation, care and management. No past medical history on file. Past Surgical History: Procedure Laterality Date CHOLECYSTECTOMY Medications Prior to Admission Medication Sig Dispense Refill Last Dose/Taking aspirin 81 mg enteric coated tablet Take 1 tablet (81 mg total) by mouth daily 10/18/2024 Morning atenoloL (TENORMIN) 50 mg tablet Take 1 tablet (50 mg total) by mouth daily 10/17/2024 atorvastatin (LIPITOR) 20 mg tablet Take 1 tablet (20 mg total) by mouth nightly 10/17/2024 Bedtime calcitRIOL (ROCALTROL) 0.25 mcg capsule Take 1 capsule (0.25 mcg total) by mouth daily 10/18/2024 Morning clorazepate (TRANXENE) 15 mg tablet Take 0.5 tablets (7.5 mg total) by mouth 2 (two) times a day 10/18/2024 Morning digoxin (LANOXIN) 250 mcg (0.25 mg) tablet Take 1 tablet (250 mcg total) by mouth 3 (three) times aweek on Thu, Thu, Thu10/17/2024 ergocalciferol (VITAMIN D) 50,000 unit capsule Take 1 capsule (50,000 Units total) by mouth once a week on Sat Past Week fenofibrate nanocrystallized (TRICOR) 145 mg tablet Take 1 tablet (145 mg total) by mouth daily 10/17/2024 fluticasone propionate (Flonase Allergy Relief) 50 mcg/actuation nasal spray Administer 2 sprays into each nostril daily as needed for rhinitis or allergies Past Week levothyroxine (SYNTHROID) 25 mcg tablet Take 1 tablet (25 mcg total) 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 10/18/2024 Morning Tikosyn 125 mcg capsule Take 1 capsule (125 mcg total) by mouth 2 (two) times a day 10/18/2024 Morning warfarin (COUMADIN) 2 mg tablet Take 1 tablet (2 mg total) by mouth once a week on Tuesdays10/18/2024 Morning warfarin (COUMADIN) 2 mg tablet Take 0.5 tablets (1 mg total) by mouth 6 (six) times a week from Thursday to Thursday10/17/2024 Morning Current Facility-Administered Medications: acetaminophen (TYLENOL) tablet 500 mg, 500 mg, oral, Q6H PRN, Luan Guillermo DO, 500 mg at 10/24/242131 ampicillin-sulbactam (UNASYN) 3 g in sodium chloride 0.9% 100 mL IVPB, 3 g, intravenous, Q12H Ifeanyi CARDENAS Jessica Houston, MD, Last Rate: 220 mL/hr at 10/24/242037, 3 g at 10/24/242037 aspirin enteric coated tablet 81 mg, 81 mg, oral, Daily, Namrata Spencer NP, 81 mg at 10/24/24 1001 atenoloL (TENORMIN) tablet 50 mg, 50 mg, oral, Daily, Namrata Spencer NP, 50 mg at 10/23/24 0903 atorvastatin (LIPITOR) tablet 20 mg, 20 mg, oral, Nightly, Namrata Spencer NP, 20 mg at 10/24/242037 calcitRIOL (ROCALTROL) capsule 0.25 mcg, 0.25 mcg, oral, Daily, Namrata Spencer NP, 0.25mcg at 10/24/241002 clorazepate (TRANXENE) tablet 7.5 mg, 7.5 mg, oral, BID PRN, Luan Guillermo DO [Held by Provider] digoxin (LANOXIN) tablet 250 mcg, 250 mcg, oral, Once per day on Thursday, Namrata Spencer NP dofetilide (TIKOSYN) capsule 125 mcg, 125 mcg, oral, BID, Namrata Spencer NP, 125 mcg at10/24/242037 fenofibrate nanocrystallized (TRICOR) tablet 145 mg, 145 mg, oral, Daily, Namrata Spencer NP, 145 mg at 10/24/24 100 fluticasone propionate (FLONASE) 50 mcg/actuation nasal spray 2 spray, 2 spray, each nostril, DailyPRN, Namrata Spencer NP furosemide (LASIX) 10 mg/mL injection 40 mg, 40 mg, intravenous, Daily, Nalluri, Maribell, ZACHERY, 40 mgat 10/24/24 100 ipratropium-albuteroL (DUO-NEB) 0.5-2.5 mg/3 mL nebulizer solution 3 mL, 3 mL, nebulization, Q4H While awake (RT), Namrata Spencer NP, 3 mL at 10/24/240 levothyroxine (SYNTHROID) tablet 25 mcg, 25 mcg, oral, Daily - 0600, Namrata Spencer NP,25 mcg at 10/25/24 0500 midodrine (PROAMATINE) tablet 10 mg, 10 mg, oral, TID AC, Delvin Mendenhall MD, 10 mg at 10/24/24 184 ondansetron (ZOFRAN) injection 4 mg, 4 mg, intravenous, Q6H PRN, Namrata Spencer NP pantoprazole DR (PROTONIX) extended release tablet 40 mg, 40 mg, oral, Daily, Carla Jean MD,40 mg at 10/24/24 1004 ramelteon (ROZEREM) tablet 8 mg, 8 mg, oral, Nightly PRN, Namrata Spencer NP, 8 mg at 10/24/242131 senna-docusate (PERICOLACE) 8.6-50 mg per tablet 1 tablet, 1 tablet, oral, BID, Luan Guillermo DO, 1 tablet at 10/24/242036 tamsulosin (FLOMAX) extended release capsule 0.4 mg, 0.4 mg, oral, Daily with dinner, Luan Guillermo DO, 0.4 mg at 10/24/24 171 [Held by Provider] warfarin (COUMADIN) tablet 1 mg, 1 mg, oral, Once - 1800, Donte Camacho MD Allergies Allergen Reactions Trazodone Hcl Unknown Morphine Hydrocodone Unknown Lunesta [Eszopiclone] Other (See comments) Gave him crazy dreams Tramadol Nausea only Vicodin [Hydrocodone-Acetaminophen] Nausea only Social History Tobacco Use Smoking status: Former Current packs/day: 0.00 Types: Cigarettes Start date: 1955 Quit date: 1997 Years since quittin.4 Passive exposure: Past Smokeless tobacco: Never Substance and Sexual Activity Drug use: Not on file Sexual activity: Not on file Alcohol Use: Unknown (02/23/2023) AUDIT-C Frequency of Alcohol Consumption: Not on file Average Number of Drinks: Patient does not drink Frequency of Binge Drinking: Not on file No family history on file. Review of Systems: Denies chest pain denies focal weakness fatigue is better. Denies any significant abdominal pain. Tells that he has a Guerrero by the somewhat but he feels better than it is in place. Feels better today than last couple days Objective Vitals: 24hr Min/Max: Temp Min: 36.2 ??C (97.2 ??F) Max: 36.9 ??C (98.4 ??F) Pulse Min: 79 Max: 82 BP Min: 94/59 Max: 127/113 Resp Min: 16 Max: 20 SpO2 Min: 87 % Max: 94 % Most Recent: Vitals: 10/25/24 0504 BP: 96/61 Pulse: 80 Resp: 18 Temp: 36.2 ??C (97.2 ??F) SpO2: 94% I/O last 2 completed shifts: In: - Out: 1500 [Urine:1500] I/O this shift: In: - Out: 760 [Urine:760] Physical Exam: Constitutional: Currently resting comfortably mildly short of breath HENT: Head: Normocephalic and atraumatic. Right Ear: External ear normal. Left Ear: External ear normal. Mouth/Throat: Mouth: Mucous membranes are moist. Eyes: Extraocular Movements: Extraocular movements intact. Conjunctiva/sclera: Conjunctivae normal. Cardiovascular: Rate and Rhythm: Normal rate and regular rhythm. Heart sounds: No murmur heard. Pulmonary: Decreased sounds at bases more on the right than the left Abdominal: General: Bowel sounds are normal. There is no distension. Palpations: Abdomen is soft. Tenderness: There is no abdominal tenderness. Guerrero to gravity Musculoskeletal: Muscle wasting present Skin: General: Skin is warm and dry. Capillary Refill: Capillary refill takes less than 2 seconds. Neurological: General: No focal deficit present. Mental Status: He is alert and oriented to person, place, and time. Psychiatric: Mood and Affect: Mood normal. Behavior: Behavior normal. Thought Content: Thought content normal. Lab/Radiology/Diagnostic Review: Laboratory review: Lab results in the last 24 hours: No results found for this or any previous visit (from the past 24 hours). Lipids: No results found for: CHOL, CHLPL, HDL, LDLCALC, TRIG, CHOLHDL and Cardiac Enzymes: No results found for: CKTOTAL, CKMB, CKMBINDEX, TROPONINT ECG: Results for orders placed during the hospital encounter of 10/18/24 ECG 12 lead Narrative Vent Rate: 80 bpm RR Interval: 749 msec RI Interval: 140 msec QRS Duration: 164 msec QT Interval: 377 msec QTC Interval: 412 msec P-R-T [place]: -52 - 226 - 226 degrees IMPRESSION: ELECTRONIC VENTRICULAR PACEMAKER ST DEPRESSION, CONSIDER SUBENDOCARDIAL INJURY [0.1+ mV ST DEPRESSION] ABNORMAL ECG No change compared to prior EKG Electronically Signed By: Emilio SAINZ CT Chest WO Contrast Status: Final result Study Result Narrative & Impression EXAMINATION: Computed tomography of the chest without [...] Electronically signed by: Rajendra Oh II, D.O. Assessment/Plan: Pleural effusion will defer need to thoracentesis to Pulmonary team Chest Decubitus films may be beneficial versus doing CT without contrast Acute hypoxemic respiratory failure Likely 2/2 CHF exacerbation with pneumonia -on lasix, - On atenolol -no arb due to ckd; consider adding sglt2 when renal function at baseline -abx per pulm Check proBNP tomorrow Latest Reference Range & Units 10/25/24 06:58 Potassium, pl 3.3 - 4.9 mmol/L 3.8 Acute on chronic systolic HF Will defer diuretic to nephrology team -Continue atenolol Ischemic cardiomyopathy -S/p BIV ICD implantation History of V-tach Atrial fibrillation -S/p ablation; paced rhythm on EKG -Continue digoxin, Tikosyn Dose of digoxin should be 0.0625 Thursday CAD -S/p CABG No signs of acute myocardial ischemia -Continue ASA, statins Hypertension -Bp stable/controlled Hyperlipidemia -Continue statin Hypothyroidism check thyroid levels and cortisol level tomorrow Latest Reference Range & Units 02/24/23 03:21 TSH 0.30 - 4.20 mcIUnit/mL 3.54 -Continue levothyroxine CKD -Nephrology consult Holding warfarin presently but may be able to resume if hematuria resolves (due to guerrero placement) * Donte Camacho MD - 10/25/2024 6:44 [facility]. Full [facility] note to follow * Radha Suggs MD - 10/24/2024 5:46 PM CDT Pulmonary Daily Progress Chief complaint/reason for consult: New O2 requirement, Pulmonary nodules, pulmonary hypertension . Interval History: On 2 LPM NC with SpO2 91-96% Afebrile Breathing feels better I&O -1900 cc from yesterday Presenting History: 84 y/o CM who presented to the ED on 10/18/24 with complaints of shortness of breath that had been worsening over the last week. He was reportedly satting 70% on room air when EMSarrived. 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 States he has been having increased BAH. Does have cough at times that is productive of clear sputum. Started smoking age 12 and quit in 1996, smoked up to 1.5 ppd for 44 years, giving a 66 pack year hx. He has been on amiodarone in the past but not for sometime. 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 No service. [address] Chest 10/18/24: Very severe emphysematous changes, moderate right pleural effusion, lung nodules Carries a hx of atrial fibrillation s/p multiple ablations, HFrEF, ischemic cardiomyopathy s/p BiVICD, CKD, CAD s/p CABG, Allergies: Allergies Allergen Reactions Trazodone Hcl Unknown Morphine Hydrocodone Unknown Lunesta [Eszopiclone] Other (See comments) Gave him crazy dreams Tramadol Nausea only Vicodin [Hydrocodone-Acetaminophen] Nausea only Medications: Scheduled Meds:ampicillin-sulbactam, 3 g, intravenous, Q12H THERESA aspirin, 81 mg, oral, Daily atenoloL, 50 mg, oral, Daily atorvastatin, 20 mg, oral, Nightly calcitRIOL, 0.25 mcg, oral, Daily [Held by Provider] digoxin, 250 mcg, oral, Once per day on Thursday dofetilide, 125 mcg, oral, BID fenofibrate nanocrystallized, 145 mg, oral, Daily furosemide, 40 mg, intravenous, Daily ipratropium-albuteroL, 3 mL, nebulization, Q4H While awake (RT) levothyroxine, 25 mcg, oral, Daily - 0600 midodrine, 10 mg, oral, TID AC pantoprazole DR, 40 mg, oral, Daily senna-docusate, 1 tablet, oral, BID tamsulosin, 0.4 mg, oral, Daily with dinner [Held by Provider] warfarin, 1 mg, oral, Once - 1800 Continuous Infusions: PRN Meds:. acetaminophen clorazepate fluticasone propionate ondansetron ramelteon ROS Above review of system reviewed on 10/24/2024 Vitals: Vitals: 10/24/24 1216 10/24/24 1534 10/24/24 1641 10/24/24 1649 BP: 94/59 BP Location: Left arm Patient Position: Sitting Pulse: 81 80 80 Resp: 20 20 20 Temp: TempSrc: SpO2: 93% 92% Weight: Height: Temp (24hrs), Av.6 ??C (97.9 ??F), Min:36.5 ??C (97.7 ??F), Max:36.9 ??C (98.4 ??F) Intake/Output Summary (Last 24 hours) at 10/24/2024 1746 Last data filed at 10/24/2024 0514 Gross per 24 hour Intake -- Output 700 ml Net -700 ml Physical Exam Vitals and nursing note reviewed. Constitutional: General: He is not in acute distress. Appearance: He is well-developed. HENT: Head: Normocephalic and atraumatic. Comments: Hard of hearing Eyes: Conjunctiva/sclera: Conjunctivae normal. Cardiovascular: Rate and Rhythm: Normal rate and regular rhythm. Heart sounds: No murmur heard. Pulmonary: Effort: Pulmonary effort is normal. No respiratory distress. Breath sounds: Normal breath sounds. No stridor. No wheezing or rales. Abdominal: General: Bowel sounds are normal. Palpations: Abdomen is soft. Musculoskeletal: Right lower leg: No edema. Left lower leg: No edema. Skin: General: Skin is warm and dry. Neurological: General: No focal deficit present. Mental Status: He is alert. Psychiatric: Behavior: Behavior normal. Lab/Radiology/Diagnostic Review: Labs: Recent Labs Lab Units 10/24/2441410/23/24 0335 10/22/24 0354 WBC K/cumm 3.81 5.82 5.79 HEMOGLOBIN g/dL 12.8* 13.8 13.8 HEMATOCRIT % 38.2* 41.6 42.0 PLATELETS K/cumm 81* 87* 104* NEUTROS PCT % 70.6 78.0 79.6 LYMPHS PCT % 14.7 8.8 9.0 MONOS PCT % 11.0 11.3 10.0 EOS PCT % 2.9 1.4 0.9 Recent Labs Lab Units 10/24/245 10/23/24 0335 10/22/24 0354 10/19/24 0512 10/18/24 1041 SODIUM mmol/L 132* 137 134* < > 132* POTASSIUM PLASMA mmol/L 4.2 4.1 4.3 < > 5.0* CHLORIDE mmol/L 91* 97 95* < > 97 CO2 mmol/L 32 33* 33* < > 28 ANIONGAP mmol/L 9 7 6 < > 7 GLUCOSE mg/dL 96 100 101 < > 90 BUN SERUM mg/dL 46* 44* 47* < > 29* CREATININE mg/dL 1.90* 1.70* 1.99* < > 1.62* CALCIUM mg/dL 8.4* 8.8 8.8 < > 9.6 ALBUMIN g/dL -- -- -- -- 3.5 ALK PHOS Units/L -- -- -- -- 52 ALT Units/L -- -- -- -- 15 AST Units/L -- -- -- -- 41 BILIRUBIN TOTAL mg/dL -- -- -- -- 2.1* < > = values in this interval not displayed. Imaging: CT abd 10/21/24: similar b effusions, R>L w RLL consolidation CXR 10/23/24: RLL inf, no visible large effusion Other diagnostic tests: Echo 10/20/24: EF 37%, LVDD, RV volume overload, RVSP 60 I have personally reviewed above laboratory findings, chest imaging, and diagnostic tests 10/24/2024 Assessment and Plan: Acute hypoxic respiratory insufficiency Severe emphysema RLL cavitary lesion: pneumonia vs malignancy vs bullous disease B effusions, R>L, likely due to CHF, parapneumonic also possible Afib CHF CKD CAD w hx CABG Recs: - Wean supplemental O2 for SpO2 88-92% - Nebs TID - Unasyn day 6, completed azithromycin - If pleural effusion increases in size would need diagnostic thoracentesis (on coumadin); cont to follow CXR, the pleural effusion looks to have improved on follow up CXR today - Will need repeat imaging in 4-6 weeks otherwise * Nicole Durand, LONG CHAIN DYEING MACHINE OPERATOR - 10/24/2024 1:58 PM CDT Physical Therapy PT PROGRESS NOTE PATIENT'S NAME:Ian Monsalve :1940 AGE:84 y.o. ROOM:[place] [id number] No past medical history on file. Past Surgical History: Procedure Laterality Date CHOLECYSTECTOMY Patient Active Problem List Diagnosis Palpitations Acute congestive heart failure, unspecified heart failure type (HCC) TIME IN: 1358 TIME OUT: 1437 SUBJECTIVE Patient stated lets walk MENTAL STATUS/ORIENTATION: alert and oriented x4 PAIN: Pre-therapy pain level: none Pain location: n/a Pain intervention: n/a Post-therapy pain level/response to intervention: n/a OBJECTIVE PRECAUTIONS: fall and bed / chair alarm APPEARANCE/POSTURE: Patient lying supine with HOB elevated upon arrival and was agreeable to therapy on this date. Call light in reach and bed alarm activated. 2L O2 VITAL SIGNS: Pre ambulation: 2L O2 90% During ambulation: 4L O2 89-92% Post ambulation: 4L O2 93% MOBILITY DOCUMENTATION: Bed Mobility: supine to sit SBA Transfers: sit to/from stand x3 min/CGA Gait: Patient ambulated 110ft with w/w CGA, slow ashley, step through, decreased step length, decreased heel strike/toe off, forward flexed posture, downward gaze. APPEARANCE/POSTURE (end of session): Patient long sitting in recliner with call light in reach and chair alarm activated 2L O2 HANDOFF: Verbal handoff given to Dinora REDDY ALARMS: Chair alarm in place / active and Bed alarm in place / active EDUCATION:therapeutic activity, functional transfer training, and gait training RESPONSE TO EDUCATION: needs reinforcement and verbalizes understanding ASSESSMENT Activity tolerance/response to P.T.: Patient tolerated treatment well with no further complaints Barriers to learning: Physical Barriers to discharge: Decreased endurance and Lower extremity weakness Patient continues progressing toward previously set goals which remain appropriate at this time. PLAN PT Discharge Recommendations this date: PT Recommendation/Plan: Home with 24 hour supervision, Home Health PT Patient at high risk for: Falls, Injury due to reduced functional status, Injury due to balance deficits PT Frequency during current admission: 3-5x/wk CARE PLAN Multi-Disciplinary Problems (from Physical Therapy) Active Problems [place] [facility] [place]: 10/19/24 Goal Start Date Expected End Date End Date PT [facility] 1 10/19/24 10/27/24 -- Goal Details: Patient will transfer supine to/from sit with modified indep. Progressing towards goal Goal Start Date Expected End Date End Date PT [facility] 2 10/19/24 10/27/24 -- Goal Details: Patient will transfer sit to/from stand with modified indep. Progressing towards goal Goal Start Date Expected End Date End Date PT [facility] 3 10/19/24 10/27/24 -- Goal Details: Patient will amb 75' with wh walker and modified indep. Progressing towards goal Goal Start Date Expected End Date End Date PT [facility] [place] [facility] [place]19[place] 10/27/24 -- Goal Details: Patient will negotiate 1 step with appropriate method and cg assist. Progressing towards goal Goal Start Date Expected End Date End Date PT [facility] [place] [facility] [place]19/24 10/27/24 -- Goal Details: Patient will perform ZOILA LE ROM ex with SBA. Progressing towards goal If this is the last note, please consider this the discharge summary. Cosigned by Cecelia Valentin, PT at 10/24/2024 4:52 PM CDT * Delvin Mendenhall MD - 10/24/2024 9:54 AM CDT Nephrology Progress Note [facility] SUBJECTIVE 10/24 Cr stable. Urology notes appreciated. Urine reportedly clearing. Persistent pleural effusion. 10/23 Continued gross hematuria. Overall calm. Dyspnea is stable. Will need CBI. 10/22 Appears better. Some s/p pain. Dyspnea appears stable. Guerrero draining yellow urine. All labs and data reviewed. 10/21 Worse today. Guerrero placed. Cr 2.2. D/w . 10/20 Doing better. Ambulated with assistance. Renal mass noted. 10/19 Some better. Cr 2.3 CKD washburn ongoing. IV ABX,. Has PNA and CHF. OBJECTIVE Vitals: Vitals: 10/24/24 0000 10/24/24 0400 10/24/24 0732 10/24/24 0941 BP: 98/60 99/59 102/57 BP Location: Right arm Right arm Left arm Patient Position: HOB 30 degrees HOB 30 degrees HOB 30 degrees Pulse: 80 82 80 80 Resp: 16 16 16 20 Temp: 36.6 ??C (97.8 ??F) 36.5 ??C (97.7 ??F) 36.9 ??C (98.4 ??F) TempSrc: Oral Oral Oral SpO2: 92% 91% (!) 87% 91% Weight: Height: Intake/Output Summary (Last 24 hours) at 10/24/2024 0954 Last data filed at 10/24/2024 0514 Gross per 24 hour Intake -- Output 1900 ml Net -1900 ml REVIEW OF SYSTEMS Review of Systems Constitutional: Negative. HENT: Negative. Eyes: Negative. Respiratory: Negative. Cardiovascular: Negative. Gastrointestinal: Negative. Genitourinary: Negative. Musculoskeletal: Negative. Skin: Negative. Allergic/Immunologic: Negative. Hematological: Negative. All other systems reviewed and are negative. PHYSICAL EXAM Physical Exam Constitutional: Appears well-developed. HENT: wnl Head: Normocephalic. Eyes: Pupils are equal, round, and reactive to light. Neck: Normal range of motion. Neck supple. Cardiovascular: Normal rate. Pulmonary/Chest: Effort normal and breath sounds normal. Abdominal: Soft. Musculoskeletal: Normal range of motion. Neurological: Alert, oriented. Skin: Skin is warm. Nursing note and vitals reviewed. MEDICATIONS Current Facility-Administered Medications: acetaminophen (TYLENOL) tablet 500 mg, 500 mg, oral, Q6H PRN, Luan Guillermo, , 500 mg at 10/24/24 0049 ampicillin-sulbactam (UNASYN) 3 g in sodium chloride 0.9% 100 mL IVPB, 3 g, intravenous, Q12H [facility], Radha Suggs MD, Last Rate: 220 mL/hr at 10/23/242034, 3 g at 10/23/242034 aspirin enteric coated tablet 81 mg, 81 mg, oral, Daily, Namrata Spencer NP, 81 mg at 10/23/24 0856 atenoloL (TENORMIN) tablet 50 mg, 50 mg, oral, Daily, Namrata Spencer NP, 50 mg at 10/23/24 0903 atorvastatin (LIPITOR) tablet 20 mg, 20 mg, oral, Nightly, Namrata Spencer NP, 20 mg at 10/23/242034 calcitRIOL (ROCALTROL) capsule 0.25 mcg, 0.25 mcg, oral, Daily, Namrata Spencer NP, 0.25mcg at 10/23/24 0857 clorazepate (TRANXENE) tablet 7.5 mg, 7.5 mg, oral, BID PRN, Luan Guillermo DO [Held by Provider] digoxin (LANOXIN) tablet 250 mcg, 250 mcg, oral, Once per day on Thursday, Namrata Spencer NP dofetilide (TIKOSYN) capsule 125 mcg, 125 mcg, oral, BID, Namrata Spencer NP, 125 mcg at10/23/242034 fenofibrate nanocrystallized (TRICOR) tablet 145 mg, 145 mg, oral, Daily, Namrata Spencer NP, 145 mg at 10/23/24 08 fluticasone propionate (FLONASE) 50 mcg/actuation nasal spray 2 spray, 2 spray, each nostril, DailyPRN, Namrata Spencer NP furosemide (LASIX) 10 mg/mL injection 40 mg, 40 mg, intravenous, Daily, NalluriMaribell NP, 40 mgat 10/23/24 0858 ipratropium-albuteroL (DUO-NEB) 0.5-2.5 mg/3 mL nebulizer solution 3 mL, 3 mL, nebulization, Q4H While awake (RT), Namrata Spencer NP, 3 mL at 10/24/24 0941 levothyroxine (SYNTHROID) tablet 25 mcg, 25 mcg, oral, Daily - 0600, Namrata Spencer NP,25 mcg at 10/24/24 0514 midodrine (PROAMATINE) tablet 10 mg, 10 mg, oral, TID AC, Delvin Mendenhall MD, 10 mg at 10/23/24 1727 ondansetron (ZOFRAN) injection 4 mg, 4 mg, intravenous, Q6H PRN, Namrata Spencer NP pantoprazole DR (PROTONIX) extended release tablet 40 mg, 40 mg, oral, Daily, Carla Jean MD,40 mg at 10/23/24 0858 ramelteon (ROZEREM) tablet 8 mg, 8 mg, oral, Nightly PRN, Namrata Spencer NP, 8 mg at 10/21/242032 senna-docusate (PERICOLACE) 8.6-50 mg per tablet 1 tablet, 1 tablet, oral, BID, Luan Guillermo DO, 1 tablet at 10/22/24 0820 tamsulosin (FLOMAX) extended release capsule 0.4 mg, 0.4 mg, oral, Daily with dinner, Luan Guillermo DO, 0.4 mg at 10/23/24 1727 [Held by Provider] warfarin (COUMADIN) tablet 1 mg, 1 mg, oral, Once - 1800, Donte Camacho MD Lab/Radiology/Diagnostic Review: Recent Results (from the past 24 hours) CBC with auto differential Collection Time: 10/24/24 4:15 AM Result Value Ref Range WBC 3.81 3.80 - 9.90 K/cumm Hgb 12.8 (L) 13.0 - 17.5 g/dL Hct 38.2 (L) 38.9 - 50.3 % Plt 81 (L) 150 - 400 K/cumm MPV 12.3 9.1 - 12.3 fL RBC 4.08 (L) 4.30 - 5.80 M/cumm MCV 93.6 81.3 - 96.4 fL MCH 31.4 27.1 - 33.3 pg MCHC 33.5 32.3 - 35.7 g/dL RDW CV 16.3 (H) 11.1 - 14.9 % RDW SD 55.5 (H) 35.7 - 48.1 fL NRBC abs 0.00 0.00 - 0.01 K/cumm Basic metabolic panel Collection Time: 10/24/24 4:15 AM Result Value Ref Range Sodium 132 (L) 135 - 145 mmol/L Potassium, pl 4.2 3.3 - 4.9 mmol/L Chloride 91 (L) 97 - 110 mmol/L CO2 32 22 - 32 mmol/L Anion gap 9 2 - 15 mmol/L BUN 46 (H) 6 - 25 mg/dL Creatinine 1.90 (H) 0.80 - 1.30 mg/dL Glucose 96 70 - 199 mg/dL Calcium 8.4 (L) 8.5 - 10.3 mg/dL Protime-INR Collection Time: 10/24/24 4:15 AM Result Value Ref Range PT 20.5 (H) 9.7 - 13.0 sec INR 1.87 (H) 0.90 - 1.20 Differential, auto Collection Time: 10/24/24 4:15 AM Result Value Ref Range Neutrophil abs 2.69 1.50 - 6.50 K/cumm Imm gran abs 0.01 0.00 - 0.10 K/cumm Lymphocyte abs 0.56 (L) 0.80 - 3.30 K/cumm Monocyte abs 0.42 0.20 - 0.80 K/cumm Eosinophil abs 0.11 0.00 - 0.50 K/cumm Basophil abs 0.02 0.00 - 0.10 K/cumm Neutrophil pct 70.6 % Imm gran pct 0.3 % Lymphocyte pct 14.7 % Monocyte pct 11.0 % Eosinophil pct 2.9 % Basophil pct 0.5 % eGFR Collection Time: 10/24/24 4:15 AM Result Value Ref Range eGFR 34 (L) >=60 mL/min/1.73 m2 Recent Labs Lab Units 10/19/24 1233 CLARITY U Clear COLOR U Yellow KETONES UR Negative NITRITE UR Negative SPEC GRAV U 1.007 UROBILINOGEN UR mg/dL <2.0 CT Chest WO Contrast Result Date: 10/18/2024 Narrative: EXAMINATION: Computed tomography of the chest without intravenous contrast HISTORY: Abnormal chest radiograph. TECHNIQUE: Transaxial computed tomographic images of the chest were obtained without intravenous contrast according to the standard protocol. COMPARISON: Chest radiograph dated same day. FINDINGS: There is a moderately sized right pleural effusion with fluid in the right majorfissure and right upper, middle, and lower lobe consolidations most notable in the right lower lobe. Small left pleural effusion with left lower lobe atelectasis. Severe centrilobular emphysematous changes. Poststernotomy changes. Mild mediastinal lymphadenopathy with largest mediastinal node measur ing 1.1 cm in short axis dimension. Nodules in the left upper lobe, largest measuring approximately1.1 x 0.5 cm. Follow-up suggested. Main pulmonary [...] may represent pseudo-thickening from underdistention versus gastritis. Impression: 1. Moderately sized right pleural effusion with [...] Electronically signed by: Rajendra Oh II, D.O. ECG 12 lead Result Date: 10/18/2024 Narrative: Vent Rate: 80 bpm RR Interval: 749 msec RI Interval: 140 msec QRS Duration: 164 msec QT Interval: 377 msec QTC Interval: 412 msec P-R-T [place]: -52 - 226 - 226 degrees IMPRESSION: ELECTRONICVENTRICULAR PACEMAKER ST DEPRESSION, CONSIDER SUBENDOCARDIAL INJURY [0.1+ mV ST DEPRESSION] ABNORMAL ECG No change compared to prior EKG Electronically Signed By: Emilio SAINZ XR Chest 1 Vw Portable Result Date: 10/18/2024 Narrative: EXAMINATION: XR CHEST 1 VIEW DATE: 10/18/2024 11:20 AM INDICATION: Shortness of breath. COMPARISON: 02/23/2023. Impression: ICD leads are intact. Post sternotomy changes are noted. Cardiac mediastinal silhouettewithin normal limits. There is a small right pleural effusion. Opacities in the right lower lobe suggestive of pneumonia, increased from prior. Follow-up suggested to ensure resolution. No acute osseous abnormality. Electronically signed by: Rajendra Oh II, D.O. ASSESSMENT/PLAN CKD 3b CRS. CHF/dyspnea. R LL PNA. MBD. ICD status. RECOMMENDATIONS IV diuresis. CKD washburn. Overall improved. -10/20, BP low, start midodrine, IV ABX, decrease diuresis, CT scan kidneys. -10/21, urinary retention, ROSA worse, guerrero placed, will follow, CT scan to be reviewed. -10/22, CT scan kidneys shows exophytic cysts, will do MRI as o/p, continue guerrero, ROSA better, good UO, no new changes, difficult guerrero yesterday. -Cr 1.7 and baseline, dyspnea better, gross hematuria, difficult guerrero, traumatic hematuria, Needs CBI, will reconsult Urology. -cr is baseline, guerrero irrigation, likely needs thoracentesis, for both diagnostic and therapeutic purposes, avss, lytes stable. I can be reached at [phone] with any concerns. Thank you Luan Guillermo DO for the consult. Delvin Mendenhall MD [employer] [phone] * Luan Guillermo DO - 10/24/2024 8:19 AM CDT Daily Progress Subjective Chief complaint of dyspnea, abdominal pain/hematuria. Interval History: Patient seen examined at bedside. He is resting comfortably does not appear to bein any acute distress. Guerrero catheter shows tea-colored urine. Patient is currently denying abdominal discomfort. During my assessment of the patient, nurse practitioner from the urology service presented at bedside and we discussed plan of care. Recommended patient be discharged with Guerrero intact and remain on tamsulosin until he can follow-up as an outpatient Objective Physical Exam: General Appearance: Alert, cooperative, no distress, appears stated age, well developed, well nourished Head: Normocephalic, without obvious abnormality, atraumatic Eyes: Conjunctiva/corneas clear, EOM's intact, both eyes, anicteric Ears: Normal external ear canals, both ears Nose: Nares normal, septum midline, mucosa normal, no drainage Throat: Lips, mucosa, and tongue normal; mucous membranes moist Neck: Supple Lungs: Clear to auscultation bilaterally, respirations unlabored Cardiovascular: Regular rate and rhythm Abdomen: Soft, non-tender, bowel sounds decr, non-distended Extremities: Extremities normal, atraumatic, no cyanosis, +2 LE edema Skin: Skin color, texture, turgor normal, no rashes Psychosocial: Normal affect and mood Lab/Radiology/Diagnostic Review: Laboratory review: Lab results in the last 24 hours: Recent Results (from the past 24 hours) CBC with auto differential Collection Time: 10/24/24 4:15 AM Result Value Ref Range WBC 3.81 3.80 - 9.90 K/cumm Hgb 12.8 (L) 13.0 - 17.5 g/dL Hct 38.2 (L) 38.9 - 50.3 % Plt 81 (L) 150 - 400 K/cumm MPV 12.3 9.1 - 12.3 fL RBC 4.08 (L) 4.30 - 5.80 M/cumm MCV 93.6 81.3 - 96.4 fL MCH 31.4 27.1 - 33.3 pg MCHC 33.5 32.3 - 35.7 g/dL RDW CV 16.3 (H) 11.1 - 14.9 % RDW SD 55.5 (H) 35.7 - 48.1 fL NRBC abs 0.00 0.00 - 0.01 K/cumm Basic metabolic panel Collection Time: 10/24/24 4:15 AM Result Value Ref Range Sodium 132 (L) 135 - 145 mmol/L Potassium, pl 4.2 3.3 - 4.9 mmol/L Chloride 91 (L) 97 - 110 mmol/L CO2 32 22 - 32 mmol/L Anion gap 9 2 - 15 mmol/L BUN 46 (H) 6 - 25 mg/dL Creatinine 1.90 (H) 0.80 - 1.30 mg/dL Glucose 96 70 - 199 mg/dL Calcium 8.4 (L) 8.5 - 10.3 mg/dL Protime-INR Collection Time: 10/24/24 4:15 AM Result Value Ref Range PT 20.5 (H) 9.7 - 13.0 sec INR 1.87 (H) 0.90 - 1.20 Differential, auto Collection Time: 10/24/24 4:15 AM Result Value Ref Range Neutrophil abs 2.69 1.50 - 6.50 K/cumm Imm gran abs 0.01 0.00 - 0.10 K/cumm Lymphocyte abs 0.56 (L) 0.80 - 3.30 K/cumm Monocyte abs 0.42 0.20 - 0.80 K/cumm Eosinophil abs 0.11 0.00 - 0.50 K/cumm Basophil abs 0.02 0.00 - 0.10 K/cumm Neutrophil pct 70.6 % Imm gran pct 0.3 % Lymphocyte pct 14.7 % Monocyte pct 11.0 % Eosinophil pct 2.9 % Basophil pct 0.5 % eGFR Collection Time: 10/24/24 4:15 AM Result Value Ref Range eGFR 34 (L) >=60 mL/min/1.73 m2 Current Facility-Administered Medications Medication Dose Route Frequency Provider Last Rate Last Admin acetaminophen (TYLENOL) tablet 500 mg 500 mg oral Q6H PRN Luan Guillermo DO 500 mg at 10/24/24 0049 ampicillin-sulbactam (UNASYN) 3 g in sodium chloride 0.9% 100 mL IVPB 3 g intravenous Q12H Radha Day MD 220 mL/hr at 10/24/24 1001 3 g at 10/24/24 1001 aspirin enteric coated tablet 81 mg 81 mg oral Daily Namrata Spencer NP 81 mg at 10/24/24 1001 atenoloL (TENORMIN) tablet 50 mg 50 mg oral Daily Namrata Spencer NP 50 mg at 10/23/24 09 atorvastatin (LIPITOR) tablet 20 mg 20 mg oral Nightly Namrata Spencer NP 20 mg at 10/23/242034 calcitRIOL (ROCALTROL) capsule 0.25 mcg 0.25 mcg oral Daily Namrata Spencer NP 0.25 mcg at 10/24/24 100 clorazepate (TRANXENE) tablet 7.5 mg 7.5 mg oral BID PRN Luan Guillermo DO [Held by Provider] digoxin (LANOXIN) tablet 250 mcg 250 mcg oral Once per day on Thursday Namrata Spencer NP dofetilide (TIKOSYN) capsule 125 mcg 125 mcg oral BID Namrata Spencer NP 125 mcg at 10/24/24 1004 fenofibrate nanocrystallized (TRICOR) tablet 145 mg 145 mg oral Daily Namrata Spencer NP145 mg at 10/24/24 1003 fluticasone propionate (FLONASE) 50 mcg/actuation nasal spray 2 spray 2 spray each nostril Daily PRN Namrata Spencer NP furosemide (LASIX) 10 mg/mL injection 40 mg 40 mg intravenous Daily Maribell Rob NP 40 mg at 10/24/24 1004 ipratropium-albuteroL (DUO-NEB) 0.5-2.5 mg/3 mL nebulizer solution 3 mL 3 mL nebulization Q4H [place] (RT) Namrata Spencer NP 3 mL at 10/24/24 1210 levothyroxine (SYNTHROID) tablet 25 mcg 25 mcg oral Daily - 0600 Namrata Spencer NP 25 mcg at 10/24/24 0514 midodrine (PROAMATINE) tablet 10 mg 10 mg oral TID AC Delvin Mendenhall MD 10 mg at 10/24/24 1000 ondansetron (ZOFRAN) injection 4 mg 4 mg intravenous Q6H PRN Namrata Spencer NP pantoprazole DR (PROTONIX) extended release tablet 40 mg 40 mg oral Daily Carla Jean MD 40 mg at 10/24/24 1004 ramelteon (ROZEREM) tablet 8 mg 8 mg oral Nightly PRN Namrata Spencer NP 8 mg at 10/21/242032 senna-docusate (PERICOLACE) 8.6-50 mg per tablet 1 tablet 1 tablet oral BID Luan Guillermo DO 1 tablet at 10/24/24 1000 sodium chloride 0.9% 0.9 % irrigation - ADS Override Pull tamsulosin (FLOMAX) extended release capsule 0.4 mg 0.4 mg oral Daily with dinner Luan Guillermo DO 0.4 mg at 10/23/24 1727 [Held by Provider] warfarin (COUMADIN) tablet 1 mg 1 mg oral Once - 1800 Donte Camacho MD Vitals: 24hr Min/Max: Temp Min: 36.3 ??C (97.3 ??F) Max: 36.9 ??C (98.4 ??F) Pulse Min: 80 Max: 82 BP Min: 91/59 Max: 128/67 Resp Min: 16 Max: 16 SpO2 Min: 87 % Max: 96 % Most Recent : Vitals: 10/24/24 0732 BP: 102/57 Pulse: 80 Resp: 16 Temp: 36.9 ??C (98.4 ??F) SpO2: (!) 87% I/O last 2 completed shifts: In: - Out: 1900 [Urine:1900] No intake/output data recorded. Assessment/Plan Principal Problem: Acute congestive heart failure, unspecified heart failure type (HCC) Acute hypoxic respiratory failure on admission. Differential includes CHF exacerbation, pneumonia. Currently on 2L NC - titrate as able. CXR - Persistent right effusion with patchy right lower lobe consolidation. Congestive heart failure exacerbation on admission. BNP 8636. 2D echo performed- EF 37%, Mod-Severepulmonary htn, Diastolic dysfunction present. On IV Lasix daily - monitor UOP. Cardiology service consulted. Initiate GDMT as appropriate. Moderately sized right pleural effusion with consolidations in the right upper, right lower, and right middle lobes suggestive of multifocal pneumonia, on admission CT. Respiratory PCR negative. Blood cultures NGTD. Strep pneumoniae and Legionella antigens are negative. Was on azithromycin, Rocephin starting on 10/18/2024; on 10/19/2024 Rocephin was changed to Unasyn - continue unasyn therapy. Pulmonology following. Possible need for thoracentesis - holding coumadin.repeat CXR today Multiple left upper lobe pulmonary nodules largest measuring 1.1 cm, on admission CT. Dilated main pulmonary artery suggestive of pulmonary arterial hypertension, on admission CT. Severe centrilobular emphysematous changes, on admission CT. Nonspecific mild gastric wall thickening may represent pseudo-thickening from underdistention versus gastritis, on admission CT. On PPI. Atrial fibrillation, currently paced. On digoxin, will hold due to elevated level. On Tikosyn. On Coumadin(Currently on hold), daily INRs. Hyperlipidemia. On statin, Tricor. Hypothyroidism. On Synthroid. CAD. S/p coronary artery bypass graft x two - left internal mammary artery to the left anterior descending, left radial artery to the posterior descending artery, on 02/24/1997. History of VT, status post ablation on 12/31/2015, 04/08/2016 EP study. Hypotension - Reportedly having low blood pressures today - Try to avoid IVF in setting of volume overload. Trial midodrine 5 mg TID Right Kidney Mass - US retroperitoneum - Right kidney mass up to 1.4 cm - MRI recommended, patient with defibrillator - not able to obtain an MRI. Will discuss with nephrology regarding recommendations for further evaluation. Urine retention - reported abdominal pain - CT imaging performed - No acute findings noted. On review - bladder looked distended. Bladder scan done with 600 cc - straight cath done. Q6 hour bladder scans - if additional straight cath needed, recommend guerrero placement. Guerrero catheter exchanged on 10/22 due to clotting and inability to empty. Tamsulosin initiated. Urology following - recommending discharging patient with guerrero in place to allow bladder decompression. Continue Flomax and follow up as outpatient. Hematuria, persistent - likely 2/2 trauma from guerrero insertion + being on blood thinners. Urology consulted. Hold warfarin for now (Cleared to do so by cardiology) Constipation -started on bowel regimen Hyponatremia of 137, follow. Slight hyperkalemia, resolved. ROSA on CKD > Progressing favorably. Avoid nephrotoxic agents as able. Nephrology following - appreciate recommendations Slight thrombocytopenia of 81, follow. Elevated digoxin level of 1.3, follow. Troponin trend of 51, 54, 51, 51, with delta of 3, 0, 0; nonspecific. Prophylaxis. Protonix, Coumadin. PT/OT Barriers to discharge: Hematuria with occasional clots impeding urinary flow, respiratory status * Donte Camacho MD - 10/24/2024 7:16 AM CDT Cardiology follow-up note-[facility] Pertinent info was reviewed. Patient was seen examined in room 420. He tells he is feeling better had Guerrero to be reinserted this weekend due to clotting Cardiology Note summary Will defer diuretic to nephrology team Pleural effusion will defer need to thoracentesis to Pulmonary team Chest Decubitus films may be beneficial versus doing CT without contrast HPI: Patient is a 84 y.o. 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 Patient reports shortness of breath started 7 days ago and progressively got worse. EMS was called for further evaluation. On EMS arrival, patient was noted to be satting in the 70s on room air. 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 Patient also endorses poor appetite associated with generalized weakness. Ambulates with a cane at baseline. Also reports occasional productive cough with clear phlegm. Denies any other associated symptoms. Reports compliance with his home medications. On arrival to Emergency Room, vital signs, temp 97.6??, pulse 80, respiration 24, BP 121/81, O2 sats 99%. Labs, sodium 132, potassium 5.0, creatinine 1.62, BUN 29, proBNP 8,636, PLT 132. Initial troponin slightly elevated with insignificant delta.Paced rhythm on EKG. Respiratory panel negative. CT chest showing moderately sized right pleural effusion with consolidation in the right upper, right lower and right middle lobe suggestive of multifocal pneumonia. Multiple left upper lobe pulmonary nodules. Dilated main pulmonary artery suggestive of pulmonary arterial hypertension. Severe centrilobular emphysema toes changes. Nonspecific mild gastric wall thickening may represent pseudo thickening from under distention versus gastritis. Due to above, patient will be admitted for further evaluation, care and management. No past medical history on file. Past Surgical History: Procedure Laterality Date CHOLECYSTECTOMY Medications Prior to Admission Medication Sig Dispense Refill Last Dose/Taking aspirin 81 mg enteric coated tablet Take 1 tablet (81 mg total) by mouth daily 10/18/2024 Morning atenoloL (TENORMIN) 50 mg tablet Take 1 tablet (50 mg total) by mouth daily 10/17/2024 atorvastatin (LIPITOR) 20 mg tablet Take 1 tablet (20 mg total) by mouth nightly 10/17/2024 Bedtime calcitRIOL (ROCALTROL) 0.25 mcg capsule Take 1 capsule (0.25 mcg total) by mouth daily 10/18/2024 Morning clorazepate (TRANXENE) 15 mg tablet Take 0.5 tablets (7.5 mg total) by mouth 2 (two) times a day 10/18/2024 Morning digoxin (LANOXIN) 250 mcg (0.25 mg) tablet Take 1 tablet (250 mcg total) by mouth 3 (three) times aweek on Mon, Wed, Fri 10/17/2024 ergocalciferol (VITAMIN D) 50,000 unit capsule Take 1 capsule (50,000 Units total) by mouth once a week on Thu Past Week fenofibrate nanocrystallized (TRICOR) 145 mg tablet Take 1 tablet (145 mg total) by mouth daily 10/17/2024 fluticasone propionate (Flonase Allergy Relief) 50 mcg/actuation nasal spray Administer 2 sprays into each nostril daily as needed for rhinitis or allergies Past Week levothyroxine (SYNTHROID) 25 mcg tablet Take 1 tablet (25 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 total) 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 10/18/2024 Morning Tikosyn 125 mcg capsule Take 1 capsule (125 mcg total) by mouth 2 (two) times a day 10/18/2024 Morning warfarin (COUMADIN) 2 mg tablet Take 1 tablet (2 mg total) by mouth once a week on Tuesdays10/18/2024 Morning warfarin (COUMADIN) 2 mg tablet Take 0.5 tablets (1 mg total) by mouth 6 (six) times a week from Thursday to Thursday10/17/2024 Morning Current Facility-Administered Medications: acetaminophen (TYLENOL) tablet 500 mg, 500 mg, oral, Q6H PRN, Luan Guillermo, , 500 mg at 10/24/24 0049 ampicillin-sulbactam (UNASYN) 3 g in sodium chloride 0.9% 100 mL IVPB, 3 g, intravenous, Q12H THERESA, Radha Suggs MD, Last Rate: 220 mL/hr at 10/23/242034, 3 g at 10/23/242034 aspirin enteric coated tablet 81 mg, 81 mg, oral, Daily, Namrata Spencer NP, 81 mg at 10/23/24 0856 atenoloL (TENORMIN) tablet 50 mg, 50 mg, oral, Daily, Namrata Spencer NP, 50 mg at 10/23/24 0903 atorvastatin (LIPITOR) tablet 20 mg, 20 mg, oral, Nightly, Namrata Spencer NP, 20 mg at 10/23/242034 calcitRIOL (ROCALTROL) capsule 0.25 mcg, 0.25 mcg, oral, Daily, Namrata Spencer NP, 0.25mcg at 10/23/24 0857 clorazepate (TRANXENE) tablet 7.5 mg, 7.5 mg, oral, BID PRN, Luan Guillermo DO [Held by Provider] digoxin (LANOXIN) tablet 250 mcg, 250 mcg, oral, Once per day on Thursday, Namrata Spencer NP dofetilide (TIKOSYN) capsule 125 mcg, 125 mcg, oral, BID, Namrata Spencer NP, 125 mcg at10/23/242034 fenofibrate nanocrystallized (TRICOR) tablet 145 mg, 145 mg, oral, Daily, Namrata Spencer NP, 145 mg at 10/23/24 0858 fluticasone propionate (FLONASE) 50 mcg/actuation nasal spray 2 spray, 2 spray, each nostril, DailyPRN, Namrata Spencer NP furosemide (LASIX) 10 mg/mL injection 40 mg, 40 mg, intravenous, Daily, NalluMaribell truong NP, 40 mgat 10/23/24 0858 ipratropium-albuteroL (DUO-NEB) 0.5-2.5 mg/3 mL nebulizer solution 3 mL, 3 mL, nebulization, Q4H While awake (RT), Namrata Spencer NP, 3 mL at 10/23/24 2149 levothyroxine (SYNTHROID) tablet 25 mcg, 25 mcg, oral, Daily - 0600, Namrata Spencer NP,25 mcg at 10/24/24 0514 midodrine (PROAMATINE) tablet 10 mg, 10 mg, oral, TID AC, Delvin Mendenhall MD, 10 mg at 10/23/24 1727 ondansetron (ZOFRAN) injection 4 mg, 4 mg, intravenous, Q6H PRN, Namrata Spencer NP pantoprazole DR (PROTONIX) extended release tablet 40 mg, 40 mg, oral, Daily, Carla Jean MD,40 mg at 10/23/24 0858 ramelteon (ROZEREM) tablet 8 mg, 8 mg, oral, Nightly PRN, Namrata Spencer NP, 8 mg at 10/21/242032 senna-docusate (PERICOLACE) 8.6-50 mg per tablet 1 tablet, 1 tablet, oral, BID, Luan Guillermo DO, 1 tablet at 10/22/24 0820 tamsulosin (FLOMAX) extended release capsule 0.4 mg, 0.4 mg, oral, Daily with dinner, Luan Guillermo DO, 0.4 mg at 10/23/24 1727 [Held by Provider] warfarin (COUMADIN) tablet 1 mg, 1 mg, oral, Once - 1800, Donte Camacho MD Allergies Allergen Reactions Trazodone Hcl Unknown Morphine Hydrocodone Unknown Lunesta [Eszopiclone] Other (See comments) Gave him crazy dreams Tramadol Nausea only Vicodin [Hydrocodone-Acetaminophen] Nausea only Social History Tobacco Use Smoking status: Former Current packs/day: 0.00 Types: Cigarettes Start date: 1955 Quit date: 1997 Years since quittin.4 Passive exposure: Past Smokeless tobacco: Never Substance and Sexual Activity Drug use: Not on file Sexual activity: Not on file Alcohol Use: Unknown (02/23/2023) AUDIT-C Frequency of Alcohol Consumption: Not on file Average Number of Drinks: Patient does not drink Frequency of Binge Drinking: Not on file No family history on file. Review of Systems: Denies chest pain denies focal weakness fatigue is better. Denies any significant abdominal pain. Tells that he has a Guerrero by the somewhat but he feels better than it is in place Objective Vitals: 24hr Min/Max: Temp Min: 36.3 ??C (97.3 ??F) Max: 36.9 ??C (98.4 ??F) Pulse Min: 80 Max: 82 BP Min: 91/59 Max: 128/67 Resp Min: 16 Max: 16 SpO2 Min: 90 % Max: 96 % Most Recent: Vitals: 10/24/24 0400 BP: 99/59 Pulse: 82 Resp: 16 Temp: 36.5 ??C (97.7 ??F) SpO2: 91% I/O last 2 completed shifts: In: - Out: 1899 [Urine:0] No intake/output data recorded. Physical Exam: Constitutional: Currently resting comfortably mildly short of breath HENT: Head: Normocephalic and atraumatic. Right Ear: External ear normal. Left Ear: External ear normal. Mouth/Throat: Mouth: Mucous membranes are moist. Eyes: Extraocular Movements: Extraocular movements intact. Conjunctiva/sclera: Conjunctivae normal. Cardiovascular: Rate and Rhythm: Normal rate and regular rhythm. Heart sounds: No murmur heard. Pulmonary: Decreased sounds at bases more on the right than the left Abdominal: General: Bowel sounds are normal. There is no distension. Palpations: Abdomen is soft. Tenderness: There is no abdominal tenderness. Guerrero to gravity Musculoskeletal: Muscle wasting present Skin: General: Skin is warm and dry. Capillary Refill: Capillary refill takes less than 2 seconds. Neurological: General: No focal deficit present. Mental Status: He is alert and oriented to person, place, and time. Psychiatric: Mood and Affect: Mood normal. Behavior: Behavior normal. Thought Content: Thought content normal. Lab/Radiology/Diagnostic Review: Laboratory review: Lab results in the last 24 hours: Recent Results (from the past 24 hours) CBC with auto differential Collection Time: 10/24/24 4:15 AM Result Value Ref Range WBC 3.81 3.80 - 9.90 K/cumm Hgb 12.8 (L) 13.0 - 17.5 g/dL Hct 38.2 (L) 38.9 - 50.3 % Plt 81 (L) 150 - 400 K/cumm MPV 12.3 9.1 - 12.3 fL RBC 4.08 (L) 4.30 - 5.80 M/cumm MCV 93.6 81.3 - 96.4 fL MCH 31.4 27.1 - 33.3 pg MCHC 33.5 32.3 - 35.7 g/dL RDW CV 16.3 (H) 11.1 - 14.9 % RDW SD 55.5 (H) 35.7 - 48.1 fL NRBC abs 0.00 0.00 - 0.01 K/cumm Basic metabolic panel Collection Time: 10/24/24 4:15 AM Result Value Ref Range Sodium 132 (L) 135 - 145 mmol/L Potassium, pl 4.2 3.3 - 4.9 mmol/L Chloride 91 (L) 97 - 110 mmol/L CO2 32 22 - 32 mmol/L Anion gap 9 2 - 15 mmol/L BUN 46 (H) 6 - 25 mg/dL Creatinine 1.90 (H) 0.80 - 1.30 mg/dL Glucose 96 70 - 199 mg/dL Calcium 8.4 (L) 8.5 - 10.3 mg/dL Protime-INR Collection Time: 10/24/24 4:15 AM Result Value Ref Range PT 20.5 (H) 9.7 - 13.0 sec INR 1.87 (H) 0.90 - 1.20 Differential, auto Collection Time: 10/24/24 4:15 AM Result Value Ref Range Neutrophil abs 2.69 1.50 - 6.50 K/cumm Imm gran abs 0.01 0.00 - 0.10 K/cumm Lymphocyte abs 0.56 (L) 0.80 - 3.30 K/cumm Monocyte abs 0.42 0.20 - 0.80 K/cumm Eosinophil abs 0.11 0.00 - 0.50 K/cumm Basophil abs 0.02 0.00 - 0.10 K/cumm Neutrophil pct 70.6 % Imm gran pct 0.3 % Lymphocyte pct 14.7 % Monocyte pct 11.0 % Eosinophil pct 2.9 % Basophil pct 0.5 % eGFR Collection Time: 10/24/24 4:15 AM Result Value Ref Range eGFR 34 (L) >=60 mL/min/1.73 m2 Lipids: No results found for: CHOL, CHLPL, HDL, LDLCALC, TRIG, CHOLHDL and Cardiac Enzymes: No results found for: CKTOTAL, CKMB, CKMBINDEX, TROPONINT ECG: Results for orders placed during the hospital encounter of 10/18/24 ECG 12 lead Narrative Vent Rate: 80 bpm RR Interval: 749 msec RI Interval: 140 msec QRS Duration: 164 msec QT Interval: 377 msec QTC Interval: 412 msec P-R-T [place]: -52 - 226 - 226 degrees IMPRESSION: ELECTRONIC VENTRICULAR PACEMAKER ST DEPRESSION, CONSIDER SUBENDOCARDIAL INJURY [0.1+ mV ST DEPRESSION] ABNORMAL ECG No change compared to prior EKG Electronically Signed By: Emilio Ratliff MD B [facility] [id number] [id number] XR Chest 1 Vw Portable Status: Final result Study Result Narrative & Impression Examination: XR CHEST 1 VIEW Date: 10/23/2024 7:20 AM History: effusion Comparison: 10/18/2024. Findings: Normal heart size, sternotomy and left AICD is again seen. A small right effusion and moderate right lower lobe infiltrate with patchy consolidation is unchanged. IMPRESSION: Persistent right effusion with patchy right lower lobe consolidation. Electronically signed by: Perla Cowart M.D. Assessment/Plan: Pleural effusion will defer need to thoracentesis to Pulmonary team Chest Decubitus films may be beneficial versus doing CT without contrast Acute hypoxemic respiratory failure Likely 2/2 CHF exacerbation with pneumonia -Continue O2. Wean as tolerated -on lasix, - On atenolol -no arb due to ckd; consider adding sglt2 when renal function at baseline -abx per pulm Acute on chronic systolic HF Will defer diuretic to nephrology team -Continue atenolol Ischemic cardiomyopathy -S/p BIV ICD implantation History of V-tach Atrial fibrillation -S/p ablation; paced rhythm on EKG -Continue digoxin, Tikosyn -Warfarin dosing per pharmacy - currently on hold due to hematuria CAD -S/p CABG No signs of acute myocardial ischemia -Continue ASA, statins Hypertension -Bp stable/controlled Hyperlipidemia -Continue statin Hypothyroidism -Continue levothyroxine CKD Latest Reference Range & Units 10/24/24 04:15 eGFR >=60 mL/min/1.73 m2 34 (L) (L): Data is abnormally low Latest Reference Range & Units 10/24/24 04:15 Creatinine 0.80 - 1.30 mg/dL 1.90 (H) (H): Data is abnormally high -Nephrology consult Holding warfarin presently but may be able to resume if hematuria resolves (due to guerrero placement) * Donte Camacho MD - 10/24/2024 7:15 AM CDT Pertienet info was reviewed. Full EP note to follow * Delvin Mendenhall MD - 10/23/2024 12:21 PM CDT Nephrology Progress Note [facility] SUBJECTIVE 10/24 Continued gross hematuria. Overall calm. Dyspnea is stable. Will need CBI. 10/22 Appears better. Some s/p pain. Dyspnea appears stable. Guerrero draining yellow urine. All labs and data reviewed. 10/21 Worse today. Guerrero placed. Cr 2.2. D/w . 10/20 Doing better. Ambulated with assistance. Renal mass noted. 10/19 Some better. Cr 2.3 CKD washburn ongoing. IV ABX,. Has PNA and CHF. OBJECTIVE Vitals: Vitals: 10/22/24 2045 10/23/24 0411 10/23/24 0834 10/23/24 0902 BP: 94/60 104/64 120/68 128/67 BP Location: Right arm Right arm Left arm Left arm Patient Position: Lying Lying Pulse: 80 80 80 Resp: 18 18 16 Temp: 36.8 ??C (98.2 ??F) 36.6 ??C (97.9 ??F) 36.9 ??C (98.4 ??F) TempSrc: Oral Oral Oral SpO2: 92% 92% 90% Weight: Height: Intake/Output Summary (Last 24 hours) at 10/23/2024 1221 Last data filed at 10/23/2024 0540 Gross per 24 hour Intake -- Output 2150 ml Net -2150 ml REVIEW OF SYSTEMS Review of Systems Constitutional: Negative. HENT: Negative. Eyes: Negative. Respiratory: Negative. Cardiovascular: Negative. Gastrointestinal: Negative. Genitourinary: Negative. Musculoskeletal: Negative. Skin: Negative. Allergic/Immunologic: Negative. Hematological: Negative. All other systems reviewed and are negative. PHYSICAL EXAM Physical Exam Constitutional: Appears well-developed. HENT: wnl Head: Normocephalic. Eyes: Pupils are equal, round, and reactive to light. Neck: Normal range of motion. Neck supple. Cardiovascular: Normal rate. Pulmonary/Chest: Effort normal and breath sounds normal. Abdominal: Soft. Musculoskeletal: Normal range of motion. Neurological: Alert, oriented. Skin: Skin is warm. Nursing note and vitals reviewed. MEDICATIONS Current Facility-Administered Medications: acetaminophen (TYLENOL) tablet 500 mg, 500 mg, oral, Q6H PRN, Luan Guillermo DO, 500 mg at 10/23/24 1220 ampicillin-sulbactam (UNASYN) 3 g in sodium chloride 0.9% 100 mL IVPB, 3 g, intravenous, Q12H THERESA, Radha Suggs MD, Last Rate: 220 mL/hr at 10/23/24 0855, 3 g at 10/23/24 0855 aspirin enteric coated tablet 81 mg, 81 mg, oral, Daily, Namrata Spencer NP, 81 mg at 10/23/24 0856 atenoloL (TENORMIN) tablet 50 mg, 50 mg, oral, Daily, Namrata Spencer NP, 50 mg at 10/23/24 0903 atorvastatin (LIPITOR) tablet 20 mg, 20 mg, oral, Nightly, Namrata Spencer NP, 20 mg at 10/22/24 211 calcitRIOL (ROCALTROL) capsule 0.25 mcg, 0.25 mcg, oral, Daily, Namrata Spencer NP, 0.25mcg at 10/23/24 0857 clorazepate (TRANXENE) tablet 7.5 mg, 7.5 mg, oral, BID PRN, Luan Guillermo DO [Held by Provider] digoxin (LANOXIN) tablet 250 mcg, 250 mcg, oral, Once per day on Thursday, Namrata Spencer NP dofetilide (TIKOSYN) capsule 125 mcg, 125 mcg, oral, BID, Namrata Spencer NP, 125 mcg at10/23/24 0857 fenofibrate nanocrystallized (TRICOR) tablet 145 mg, 145 mg, oral, Daily, Namrata Spencer NP, 145 mg at 10/23/24 0858 fluticasone propionate (FLONASE) 50 mcg/actuation nasal spray 2 spray, 2 spray, each nostril, DailyPRN, Namrata Spencer NP furosemide (LASIX) 10 mg/mL injection 40 mg, 40 mg, intravenous, Daily, Maribell Rob NP, 40 mgat 10/23/24 0858 ipratropium-albuteroL (DUO-NEB) 0.5-2.5 mg/3 mL nebulizer solution 3 mL, 3 mL, nebulization, Q4H While awake (RT), Namrata Spencer NP, 3 mL at 10/22/24 194 levothyroxine (SYNTHROID) tablet 25 mcg, 25 mcg, oral, Daily - 0600, Namrata Spencer NP,25 mcg at 10/23/24 0535 midodrine (PROAMATINE) tablet 10 mg, 10 mg, oral, TID AC, Delvin Mendenhall MD, 10 mg at 10/23/24 1220 ondansetron (ZOFRAN) injection 4 mg, 4 mg, intravenous, Q6H PRN, Namrata Spencer NP pantoprazole DR (PROTONIX) extended release tablet 40 mg, 40 mg, oral, Daily, Carla Jean MD,40 mg at 10/23/24857 ramelteon (ROZEREM) tablet 8 mg, 8 mg, oral, Nightly PRN, Namrata Spencer NP, 8 mg at 10/21/242032 senna-docusate (PERICOLACE) 8.6-50 mg per tablet 1 tablet, 1 tablet, oral, BID, Luan Guillermo DO, 1 tablet at 10/22/24 0820 tamsulosin (FLOMAX) extended release capsule 0.4 mg, 0.4 mg, oral, Daily with dinner, Luan Guillermo DO [Held by Provider] warfarin (COUMADIN) tablet 1 mg, 1 mg, oral, Once - 1800, Donte Camacho MD Lab/Radiology/Diagnostic Review: Recent Results (from the past 24 hours) CBC with auto differential Collection Time: 10/23/24 3:35 AM Result Value Ref Range WBC 5.82 3.80 - 9.90 K/cumm Hgb 13.8 13.0 - 17.5 g/dL Hct 41.6 38.9 - 50.3 % Plt 87 (L) 150 - 400 K/cumm MPV 11.7 9.1 - 12.3 fL RBC 4.44 4.30 - 5.80 M/cumm MCV 93.7 81.3 - 96.4 fL MCH 31.1 27.1 - 33.3 pg MCHC 33.2 32.3 - 35.7 g/dL RDW CV 16.7 (H) 11.1 - 14.9 % RDW SD 56.9 (H) 35.7 - 48.1 fL NRBC abs 0.00 0.00 - 0.01 K/cumm Basic metabolic panel Collection Time: 10/23/24 3:35 AM Result Value Ref Range Sodium 137 135 - 145 mmol/L Potassium, pl 4.1 3.3 - 4.9 mmol/L Chloride 97 97 - 110 mmol/L CO2 33 (H) 22 - 32 mmol/L Anion gap 7 2 - 15 mmol/L BUN 44 (H) 6 - 25 mg/dL Creatinine 1.70 (H) 0.80 - 1.30 mg/dL Glucose 100 70 - 199 mg/dL Calcium 8.8 8.5 - 10.3 mg/dL Protime-INR Collection Time: 10/23/24 3:35 AM Result Value Ref Range PT 30.3 (H) 9.7 - 13.0 sec INR 2.75 (H) 0.90 - 1.20 Differential, auto Collection Time: 10/23/24 3:35 AM Result Value Ref Range Neutrophil abs 4.54 1.50 - 6.50 K/cumm Imm gran abs 0.02 0.00 - 0.10 K/cumm Lymphocyte abs 0.51 (L) 0.80 - 3.30 K/cumm Monocyte abs 0.66 0.20 - 0.80 K/cumm Eosinophil abs 0.08 0.00 - 0.50 K/cumm Basophil abs 0.01 0.00 - 0.10 K/cumm Neutrophil pct 78.0 % Imm gran pct 0.3 % Lymphocyte pct 8.8 % Monocyte pct 11.3 % Eosinophil pct 1.4 % Basophil pct 0.2 % eGFR Collection Time: 10/23/24 3:35 AM Result Value Ref Range eGFR 39 (L) >=60 mL/min/1.73 m2 Recent Labs Lab Units 10/19/24 1233 CLARITY U Clear COLOR U Yellow KETONES UR Negative NITRITE UR Negative SPEC GRAV U 1.007 UROBILINOGEN UR mg/dL <2.0 CT Chest WO Contrast Result Date: 10/18/2024 Narrative: EXAMINATION: Computed tomography of the chest without intravenous contrast HISTORY: Abnormal chest radiograph. TECHNIQUE: Transaxial computed tomographic images of the chest were obtained without intravenous contrast according to the standard protocol. COMPARISON: Chest radiograph dated same day. FINDINGS: There is a moderately sized right pleural effusion with fluid in the right majorfissure and right upper, middle, and lower lobe consolidations most notable in the right lower lobe. Small left pleural effusion with left lower lobe atelectasis. Severe centrilobular emphysematous changes. Poststernotomy changes. Mild mediastinal lymphadenopathy with largest mediastinal node measur ing 1.1 cm in short axis dimension. Nodules in the left upper lobe, largest measuring approximately1.1 x 0.5 cm. Follow-up suggested. Main pulmonary [...] may represent pseudo-thickening from underdistention versus gastritis. Impression: 1. Moderately sized right pleural effusion with [...] Electronically signed by: Rajendra Oh II, D.O. ECG 12 lead Result Date: 10/18/2024 Narrative: Vent Rate: 80 bpm RR Interval: 749 msec RI Interval: 140 msec QRS Duration: 164 msec QT Interval: 377 msec QTC Interval: 412 msec P-R-T [place]: -52 - 226 - 226 degrees IMPRESSION: ELECTRONICVENTRICULAR PACEMAKER ST DEPRESSION, CONSIDER SUBENDOCARDIAL INJURY [0.1+ mV ST DEPRESSION] ABNORMAL ECG No change compared to prior EKG Electronically Signed By: Emilio Ratliff MD [facility] XR Chest 1 Vw Portable Result Date: 10/18/2024 Narrative: EXAMINATION: XR CHEST 1 VIEW DATE: 10/18/2024 11:20 AM INDICATION: Shortness of breath. COMPARISON: 02/23/2023. Impression: ICD leads are intact. Post sternotomy changes are noted. Cardiac mediastinal silhouettewithin normal limits. There is a small right pleural effusion. Opacities in the right lower lobe suggestive of pneumonia, increased from prior. Follow-up suggested to ensure resolution. No acute osseous abnormality. Electronically signed by: Rajendra Oh II, DLexiO. ASSESSMENT/PLAN CKD 3b CRS. CHF/dyspnea. R LL PNA. MBD. ICD status. RECOMMENDATIONS IV diuresis. CKD washburn. Overall improved. -10/20, BP low, start midodrine, IV ABX, decrease diuresis, CT scan kidneys. -10/21, urinary retention, ROSA worse, guerrero placed, will follow, CT scan to be reviewed. -10/22, CT scan kidneys shows exophytic cysts, will do MRI as o/p, continue guerrero, ROSA better, good UO, no new changes, difficult guerrero yesterday. -Cr 1.7 and baseline, dyspnea better, gross hematuria, difficult guerrero, traumatic hematuria, Needs CBI, will reconsult Urology. I can be reached at [phone] with any concerns. Thank you Luan Guillermo DO for the consult. Delvin Mendenhall MD [employer] [phone] * Shailesh Pabon MD - 10/23/2024 9:08 AM CDT Pulmonary Daily Progress Chief complaint/reason for consult: New O2 requirement, Pulmonary nodules, pulmonary hypertension . Interval History: Breathing comf On 2L Afebrile Now states that he was never coughing up blood Presenting History: 84 y/o CM who presented to the ED on 10/18/24 with complaints of shortness of breath that had been worsening over the last week. He was reportedly satting 70% on room air when EMSarrived. 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 States he has been having increased BAH. Does have cough at times that is productive of clear sputum. Started smoking age 12 and quit in 1996, smoked up to 1.5 ppd for 44 years, giving a 66 pack year hx. He has been on amiodarone in the past but not for sometime. 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 No service. CT Chest 10/18/24: Very severe emphysematous changes, moderate right pleural effusion, lung nodules Carries a hx of atrial fibrillation s/p multiple ablations, HFrEF, ischemic cardiomyopathy s/p BiVICD, CKD, CAD s/p CABG, Allergies: Allergies Allergen Reactions Trazodone Hcl Unknown Morphine Hydrocodone Unknown Lunesta [Eszopiclone] Other (See comments) Gave him crazy dreams Tramadol Nausea only Vicodin [Hydrocodone-Acetaminophen] Nausea only Medications: Scheduled Meds:ampicillin-sulbactam, 3 g, intravenous, Q12H THERESA aspirin, 81 mg, oral, Daily atenoloL, 50 mg, oral, Daily atorvastatin, 20 mg, oral, Nightly calcitRIOL, 0.25 mcg, oral, Daily [Held by Provider] digoxin, 250 mcg, oral, Once per day on Thursday dofetilide, 125 mcg, oral, BID fenofibrate nanocrystallized, 145 mg, oral, Daily furosemide, 40 mg, intravenous, Daily ipratropium-albuteroL, 3 mL, nebulization, Q4H While awake (RT) levothyroxine, 25 mcg, oral, Daily - 0600 midodrine, 10 mg, oral, TID AC pantoprazole DR, 40 mg, oral, Daily senna-docusate, 1 tablet, oral, BID [Held by Provider] warfarin, 1 mg, oral, Once - 1800 Continuous Infusions: PRN Meds:. clorazepate fluticasone propionate ondansetron ramelteon ROS Above review of system reviewed on 10/23/2024 Vitals: Vitals: 10/22/245 10/23/24 0411 10/23/24 0834 10/23/24 0902 BP: 94/60 104/64 120/68 128/67 BP Location: Right arm Right arm Left arm Left arm Patient Position: Lying Lying Pulse: 80 80 80 Resp: 18 18 16 Temp: 36.8 ??C (98.2 ??F) 36.6 ??C (97.9 ??F) 36.9 ??C (98.4 ??F) TempSrc: Oral Oral Oral SpO2: 92% 92% 90% Weight: Height: Temp (24hrs), Av.7 ??C (98.1 ??F), Min:36.6 ??C (97.9 ??F), Max:36.9 ??C (98.4 ??F) Intake/Output Summary (Last 24 hours) at 10/23/2024 0908 Last data filed at 10/23/2024 0540 Gross per 24 hour Intake -- Output 2150 ml Net -2150 ml Physical Exam Constitutional: General: He is not in acute distress. Appearance: He is well-developed. HENT: Head: Normocephalic and atraumatic. Eyes: Conjunctiva/sclera: Conjunctivae normal. Cardiovascular: Rate and Rhythm: Normal rate and regular rhythm. Heart sounds: No murmur heard. Pulmonary: Effort: Pulmonary effort is normal. No respiratory distress. Breath sounds: Normal breath sounds. No stridor. No wheezing or rales. Abdominal: General: Bowel sounds are normal. Palpations: Abdomen is soft. Musculoskeletal: Right lower leg: No edema. Left lower leg: No edema. Skin: General: Skin is warm and dry. Neurological: Mental Status: He is alert. Lab/Radiology/Diagnostic Review: Labs: Recent Labs Lab Units 10/23/24 0335 10/22/24 0354 10/21/24 0517 WBC K/cumm 5.82 5.79 4.85 HEMOGLOBIN g/dL 13.8 13.8 14.6 HEMATOCRIT % 41.6 42.0 45.1 PLATELETS K/cumm 87* 104* 108* NEUTROS PCT % 78.0 79.6 74.9 LYMPHS PCT % 8.8 9.0 12.8 MONOS PCT % 11.3 10.0 10.5 EOS PCT % 1.4 0.9 1.0 Recent Labs Lab Units 10/23/24 0335 10/22/24 0354 10/21/24 0517 10/19/24 0512 10/18/24 1041 SODIUM mmol/L 137 134* 133* < > 132* POTASSIUM PLASMA mmol/L 4.1 4.3 4.5 < > 5.0* CHLORIDE mmol/L 97 95* 95* < > 97 CO2 mmol/L 33* 33* 28 < > 28 ANIONGAP mmol/L 7 6 10 < > 7 GLUCOSE mg/dL 100 101 94 < > 90 BUN SERUM mg/dL 44* 47* 48* < > 29* CREATININE mg/dL 1.70* 1.99* 2.23* < > 1.62* CALCIUM mg/dL 8.8 8.8 8.8 < > 9.6 ALBUMIN g/dL -- -- -- -- 3.5 ALK PHOS Units/L -- -- -- -- 52 ALT Units/L -- -- -- -- 15 AST Units/L -- -- -- -- 41 BILIRUBIN TOTAL mg/dL -- -- -- -- 2.1* < > = values in this interval not displayed. Imaging: CT abd 10/21/24: similar b effusions, R>L w RLL consolidation CXR 10/23/24: RLL inf, no visible large effusion Other diagnostic tests: Echo 10/20/24: EF 37%, LVDD, RV volume overload, RVSP 60 I have personally reviewed above laboratory findings, chest imaging, and diagnostic tests 10/23/2024 Assessment and Plan: Acute hypoxic respiratory insufficiency Severe emphysema RLL cavitary lesion: pneumonia vs malignancy vs bullous disease B effusions, R>L, likely due to CHF, parapneumonic also possible Afib CHF CKD CAD w hx CABG Recs: - Wean supplemental O2 for SpO2 88-92% - Nebs TID - Unasyn day 5, completed azithromycin - If pleural effusion increases in size would need diagnostic thoracentesis (on coumadin); cont to follow CXR - Will need repeat imaging in 4-6 weeks otherwise * Tam Swanson DO - 10/23/2024 8:36 AM CDT Cardiology Progress Note - [facility] SUBJECTIVE: Breathing seems better Still requires o2 Current Medications: Scheduled Meds:ampicillin-sulbactam, 3 g, intravenous, Q12H THERESA aspirin, 81 mg, oral, Daily atenoloL, 50 mg, oral, Daily atorvastatin, 20 mg, oral, Nightly calcitRIOL, 0.25 mcg, oral, Daily [Held by Provider] digoxin, 250 mcg, oral, Once per day on Thursday dofetilide, 125 mcg, oral, BID fenofibrate nanocrystallized, 145 mg, oral, Daily furosemide, 40 mg, intravenous, Daily ipratropium-albuteroL, 3 mL, nebulization, Q4H While awake (RT) levothyroxine, 25 mcg, oral, Daily - 0600 midodrine, 10 mg, oral, TID AC pantoprazole DR, 40 mg, oral, Daily senna-docusate, 1 tablet, oral, BID [Held by Provider] warfarin, 1 mg, oral, Once - 1800 Continuous Infusions: PRN Meds:. clorazepate fluticasone propionate ondansetron ramelteon Physical Examination: Vitals: 10/22/24 1941 10/22/24 2045 10/23/24 0411 10/23/24 0834 BP: 94/60 104/64 120/68 BP Location: Right arm Right arm Left arm Patient Position: Lying Pulse: 80 80 80 80 Resp: 16 18 18 16 Temp: 36.8 ??C (98.2 ??F) 36.6 ??C (97.9 ??F) 36.9 ??C (98.4 ??F) TempSrc: Oral Oral Oral SpO2: 92% 92% 90% Weight: Height: General: No acute distress Neuro: Alert and oriented x 3, moves all extremities well HEENT: normocephalic, atraumatic, thyroid not enlarged. I do not appreciate JVD. Neck: There are nocarotid bruits. Chest: symmetric, stable. Lungs: rll crackles Heart: regular rate & rhythm, no murmurs, rubs, or gallops Abdomen: soft, non-tender, non-distended, bowel sounds present Extremities: no LE edema, palpable peripheral pulses BL Neurologic: No focal deficits Review of LABS: Recent Labs Lab Units 10/23/24 0335 WBC K/cumm 5.82 HEMOGLOBIN g/dL 13.8 HEMATOCRIT % 41.6 PLATELETS K/cumm 87* Recent Labs Lab Units 10/23/24 0335 SODIUM mmol/L 137 POTASSIUM PLASMA mmol/L 4.1 CHLORIDE mmol/L 97 CO2 mmol/L 33* ANIONGAP mmol/L 7 BUN SERUM mg/dL 44* CREATININE mg/dL 1.70* GLUCOSE mg/dL 100 CALCIUM mg/dL 8.8 Lab Results Component Value Date HGBA1C 5.6 10/19/2024 Lab Results Component Value Date INR 2.75 (H) 10/23/2024 INR 2.56 (H) 10/22/2024 INR 2.34 (H) 10/21/2024 Lab Results Component Value Date TSH 3.54 02/24/2023 Review of Cardiovascular Data: Echo 10/20/24 Echo contrast was used. Left ventricle cavity is within upper limits of normal. Moderate concentricleft ventricular hypertrophy. Moderate global left ventricular systolic [...] of hemodynamically significant aortic stenosis by Doppler. [id number] pulmonary hypertension, estimated RVSP 60 mmHg. Moderate tricuspid regurgitation. Assessment/Plan: Acute hypoxemic respiratory failure Likely 2/2 CHF exacerbation with pneumonia -Currently on oxygen 4 L NC -Continue O2. Wean as tolerated -iv lasix, atenolol -no arb due to ckd; consider adding sglt2 when renal function at baseline -abx per pulm Acute on chronic systolic HF -On IV Lasix 40 mg -Continue atenolol Ischemic cardiomyopathy -S/p BIV ICD implantation History of V-tach Atrial fibrillation -S/p ablation; paced rhythm on EKG -Continue digoxin, Tikosyn -Warfarin dosing per pharmacy - currently on hold due to hematuria CAD -S/p CABG -stable with no angina -Continue ASA, statins Hypertension -Bp stable/controlled Hyperlipidemia -Continue statin Hypothyroidism -Continue levothyroxine CKD -Creatinine 1.7 -Nephrology consult Holding warfarin presently but may be able to resume if hematuria resolves (due to guerrero placement) Continue iv lasix Sglt2 later if ok with nephrology Cxr pending may need thoracentesis if significant pleural effusion remains Tam Swanson DO, [facility] 10/23/2024 8:36 AM * Luan Guillermo DO - 10/23/2024 7:54 AM CDT Daily Progress Subjective Chief complaint of dyspnea, abdominal pain/dysuria. Interval History: Patient seen and examined at bedside. Overnight - had clotting of his guerrero catheter with blood clots - had to be exchanged for a new one. Continues to complain of abdominal discomfort this morning. Hematuria noted in guerrero. Nursing to attempt to clear obstruction. Objective Physical Exam: General Appearance: Alert, cooperative, no distress, appears stated age, well developed, well nourished Head: Normocephalic, without obvious abnormality, atraumatic Eyes: Conjunctiva/corneas clear, EOM's intact, both eyes, anicteric Ears: Normal external ear canals, both ears Nose: Nares normal, septum midline, mucosa normal, no drainage Throat: Lips, mucosa, and tongue normal; mucous membranes moist Neck: Supple Lungs: Clear to auscultation bilaterally, respirations unlabored Cardiovascular: Regular rate and rhythm Abdomen: Soft, non-tender, bowel sounds decr, non-distended Extremities: Extremities normal, atraumatic, no cyanosis, +2 LE edema Skin: Skin color, texture, turgor normal, no rashes Psychosocial: Normal affect and mood Lab/Radiology/Diagnostic Review: Laboratory review: Lab results in the last 24 hours: Recent Results (from the past 24 hours) CBC with auto differential Collection Time: 10/23/24 3:35 AM Result Value Ref Range WBC 5.82 3.80 - 9.90 K/cumm Hgb 13.8 13.0 - 17.5 g/dL Hct 41.6 38.9 - 50.3 % Plt 87 (L) 150 - 400 K/cumm MPV 11.7 9.1 - 12.3 fL RBC 4.44 4.30 - 5.80 M/cumm MCV 93.7 81.3 - 96.4 fL MCH 31.1 27.1 - 33.3 pg MCHC 33.2 32.3 - 35.7 g/dL RDW CV 16.7 (H) 11.1 - 14.9 % RDW SD 56.9 (H) 35.7 - 48.1 fL NRBC abs 0.00 0.00 - 0.01 K/cumm Basic metabolic panel Collection Time: 10/23/24 3:35 AM Result Value Ref Range Sodium 137 135 - 145 mmol/L Potassium, pl 4.1 3.3 - 4.9 mmol/L Chloride 97 97 - 110 mmol/L CO2 33 (H) 22 - 32 mmol/L Anion gap 7 2 - 15 mmol/L BUN 44 (H) 6 - 25 mg/dL Creatinine 1.70 (H) 0.80 - 1.30 mg/dL Glucose 100 70 - 199 mg/dL Calcium 8.8 8.5 - 10.3 mg/dL Protime-INR Collection Time: 10/23/24 3:35 AM Result Value Ref Range PT 30.3 (H) 9.7 - 13.0 sec INR 2.75 (H) 0.90 - 1.20 Differential, auto Collection Time: 10/23/24 3:35 AM Result Value Ref Range Neutrophil abs 4.54 1.50 - 6.50 K/cumm Imm gran abs 0.02 0.00 - 0.10 K/cumm Lymphocyte abs 0.51 (L) 0.80 - 3.30 K/cumm Monocyte abs 0.66 0.20 - 0.80 K/cumm Eosinophil abs 0.08 0.00 - 0.50 K/cumm Basophil abs 0.01 0.00 - 0.10 K/cumm Neutrophil pct 78.0 % Imm gran pct 0.3 % Lymphocyte pct 8.8 % Monocyte pct 11.3 % Eosinophil pct 1.4 % Basophil pct 0.2 % eGFR Collection Time: 10/23/24 3:35 AM Result Value Ref Range eGFR 39 (L) >=60 mL/min/1.73 m2 Current Facility-Administered Medications Medication Dose Route Frequency Provider Last Rate Last Admin acetaminophen (TYLENOL) tablet 500 mg 500 mg oral Q6H PRN Luan Guillermo DO 500 mg at 10/23/24 1220 ampicillin-sulbactam (UNASYN) 3 g in sodium chloride 0.9% 100 mL IVPB 3 g intravenous Q12H Radah Day MD 220 mL/hr at 10/23/24 0855 3 g at 10/23/24 0855 aspirin enteric coated tablet 81 mg 81 mg oral Daily Namrata Spencer NP 81 mg at 10/23/24 0856 atenoloL (TENORMIN) tablet 50 mg 50 mg oral Daily Namrata Spencer NP 50 mg at 10/23/24 0903 atorvastatin (LIPITOR) tablet 20 mg 20 mg oral Nightly Namrata Spencer NP 20 mg at 10/22/242116 calcitRIOL (ROCALTROL) capsule 0.25 mcg 0.25 mcg oral Daily Namrata Spencer NP 0.25 mcg at 10/23/24 0857 clorazepate (TRANXENE) tablet 7.5 mg 7.5 mg oral BID PRN Luan Guillermo DO [Held by Provider] digoxin (LANOXIN) tablet 250 mcg 250 mcg oral Once per day on Thursday Namrata Spencer NP dofetilide (TIKOSYN) capsule 125 mcg 125 mcg oral BID Namrata Spencer NP 125 mcg at 10/23/24 0857 fenofibrate nanocrystallized (TRICOR) tablet 145 mg 145 mg oral Daily Namrata Spencer NP145 mg at 10/23/24 0858 fluticasone propionate (FLONASE) 50 mcg/actuation nasal spray 2 spray 2 spray each nostril Daily PRN Namrata Spencer NP furosemide (LASIX) 10 mg/mL injection 40 mg 40 mg intravenous Daily Maribell Rob NP 40 mg at 10/23/24 0858 ipratropium-albuteroL (DUO-NEB) 0.5-2.5 mg/3 mL nebulizer solution 3 mL 3 mL nebulization Q4H Whileawake (RT) Namrata Spencer NP 3 mL at 10/23/24 1228 levothyroxine (SYNTHROID) tablet 25 mcg 25 mcg oral Daily - 0600 Namrata Spencer NP 25 mcg at 10/23/24 0535 midodrine (PROAMATINE) tablet 10 mg 10 mg oral TID AC Delvin Mendenhall MD 10 mg at 10/23/24 1220 ondansetron (ZOFRAN) injection 4 mg 4 mg intravenous Q6H PRN Namrata Spencer NP pantoprazole DR (PROTONIX) extended release tablet 40 mg 40 mg oral Daily Carla Jean MD 40 mg at 10/23/24 0858 ramelteon (ROZEREM) tablet 8 mg 8 mg oral Nightly PRN Namrata Spencer NP 8 mg at 10/21/24 2033 senna-docusate (PERICOLACE) 8.6-50 mg per tablet 1 tablet 1 tablet oral BID Luan Guillermo DO 1 tablet at 10/22/24 0820 tamsulosin (FLOMAX) extended release capsule 0.4 mg 0.4 mg oral Daily with dinner Luan Guillermo DO [Held by Provider] warfarin (COUMADIN) tablet 1 mg 1 mg oral Once - 1800 Donte Camacho MD Vitals: 24hr Min/Max: Temp Min: 36.6 ??C (97.9 ??F) Max: 36.8 ??C (98.2 ??F) Pulse Min: 80 Max: 85 BP Min: 94/60 Max: 104/64 Resp Min: 16 Max: 20 SpO2 Min: 92 % Max: 99 % Most Recent : Vitals: 10/23/24 0411 BP: 104/64 Pulse: 80 Resp: 18 Temp: 36.6 ??C (97.9 ??F) SpO2: 92% I/O last 2 completed shifts: In: - Out: 2149 [Urine:2149] No intake/output data recorded. Assessment/Plan Principal Problem: Acute congestive heart failure, unspecified heart failure type (HCC) Acute hypoxic respiratory failure on admission. Differential includes CHF exacerbation, pneumonia. Currently on 2L NC - titrate as able. CXR - Persistent right effusion with patchy right lower lobe consolidation Congestive heart failure exacerbation on admission. BNP 8636. 2D echo performed- EF 37%, Mod-Severepulmonary htn, Diastolic dysfunction present. On IV Lasix daily - monitor UOP. Cardiology service consulted. Initiate GDMT as appropriate. Moderately sized right pleural effusion with consolidations in the right upper, right lower, and right middle lobes suggestive of multifocal pneumonia, on admission CT. Respiratory PCR negative. Blood cultures NGTD. Strep pneumoniae and Legionella antigens are negative. Was on azithromycin, Rocephin starting on 10/18/2024; on 10/19/2024 Rocephin was changed to Unasyn - continue unasyn therapy. Pulmonology following. Possible need for thoracentesis - holding coumadin. Multiple left upper lobe pulmonary nodules largest measuring 1.1 cm, on admission CT. Dilated main pulmonary artery suggestive of pulmonary arterial hypertension, on admission CT. Severe centrilobular emphysematous changes, on admission CT. Nonspecific mild gastric wall thickening may represent pseudo-thickening from underdistention versus gastritis, on admission CT. On PPI. Atrial fibrillation, currently paced. On digoxin, will hold due to elevated level. On Tikosyn. On Coumadin(Currently on hold), daily INRs. Hyperlipidemia. On statin, Tricor. Hypothyroidism. On Synthroid. CAD. S/p coronary artery bypass graft x two - left internal mammary artery to the left anterior descending, left radial artery to the posterior descending artery, on 02/24/1997. History of VT, status post ablation on 12/31/2015, 04/08/2016 EP study. Hypotension - Reportedly having low blood pressures today - Try to avoid IVF in setting of volume overload. Trial midodrine 5 mg TID Right Kidney Mass - US retroperitoneum - Right kidney mass up to 1.4 cm - MRI recommended, patient with defibrillator - not able to obtain an MRI. Will discuss with nephrology regarding recommendations for further evaluation. Urine retention - reported abdominal pain - CT imaging performed - No acute findings noted. On review - bladder looked distended. Bladder scan done with 600 cc - straight cath done. Q6 hour bladder scans - if additional straight cath needed, recommend guerrero placement. Guerrero catheter exchanged on 10/22 due to clotting and inability to empty. Tamsulosin initiated. If clotting persists and can not void - may need to consider transfer to [facility] as we do not have urology coverage today. Hematuria, persistent - likely 2/2 trauma from guerrero insertion + being on blood thinners. Urology consulted. Hold warfarin for now (Cleared to do so by cardiology) Constipation -started on bowel regimen Hyponatremia of 137, follow. Slight hyperkalemia, resolved. ROSA on CKD > Progressing favorably. Avoid nephrotoxic agents as able. Nephrology following - appreciate recommendations Slight thrombocytopenia of 87, follow. Elevated digoxin level of 1.3, follow. Troponin trend of 51, 54, 51, 51, with delta of 3, 0, 0; nonspecific. Prophylaxis. Protonix, Coumadin. * Delvin Mendenhall MD - 10/22/2024 8:21 PM CDT Nephrology Progress Note [facility] SUBJECTIVE 10/22 Appears better. Some s/p pain. Dyspnea appears stable. Guerrero draining yellow urine. All labs and data reviewed. 10/21 Worse today. Guerrero placed. Cr 2.2. D/w . 10/20 Doing better. Ambulated with assistance. Renal mass noted. 10/19 Some better. Cr 2.3 CKD washburn ongoing. IV ABX,. Has PNA and CHF. OBJECTIVE Vitals: Vitals: 10/22/24 1300 10/22/24 1628 10/22/24 1638 10/22/24 1941 BP: 102/55 BP Location: Right arm Patient Position: Lying Pulse: 85 80 80 Resp: 20 17 16 Temp: 36.6 ??C (97.9 ??F) TempSrc: SpO2: 92% 93% 97% Weight: Height: Intake/Output Summary (Last 24 hours) at 10/22/20242020 Last data filed at 10/22/2024 1722 Gross per 24 hour Intake 100 ml Output 1600 ml Net -1500 ml REVIEW OF SYSTEMS Review of Systems Constitutional: Negative. HENT: Negative. Eyes: Negative. Respiratory: Negative. Cardiovascular: Negative. Gastrointestinal: Negative. Genitourinary: Negative. Musculoskeletal: Negative. Skin: Negative. Allergic/Immunologic: Negative. Hematological: Negative. All other systems reviewed and are negative. PHYSICAL EXAM Physical Exam Constitutional: Appears well-developed. HENT: wnl Head: Normocephalic. Eyes: Pupils are equal, round, and reactive to light. Neck: Normal range of motion. Neck supple. Cardiovascular: Normal rate. Pulmonary/Chest: Effort normal and breath sounds normal. Abdominal: Soft. Musculoskeletal: Normal range of motion. Neurological: Alert, oriented. Skin: Skin is warm. Nursing note and vitals reviewed. MEDICATIONS Current Facility-Administered Medications: ampicillin-sulbactam (UNASYN) 3 g in sodium chloride 0.9% 100 mL IVPB, 3 g, intravenous, Q12H Ifeanyi CARDENAS Jessica Houston, MD, Last Rate: 220 mL/hr at 10/22/24819, 3 g at 10/22/24819 aspirin enteric coated tablet 81 mg, 81 mg, oral, Daily, Namrata Spencer NP, 81 mg at 10/22/2418 atenoloL (TENORMIN) tablet 50 mg, 50 mg, oral, Daily, Namrata Spencer NP, 50 mg at 10/19/24 08 atorvastatin (LIPITOR) tablet 20 mg, 20 mg, oral, Nightly, Namrata Spencer NP, 20 mg at 10/21/242034 calcitRIOL (ROCALTROL) capsule 0.25 mcg, 0.25 mcg, oral, Daily, Namrata Spencer NP, 0.25mcg at 10/22/24818 clorazepate (TRANXENE) tablet 7.5 mg, 7.5 mg, oral, BID DURGAN, Luan Guillermo DO [Held by Provider] digoxin (LANOXIN) tablet 250 mcg, 250 mcg, oral, Once per day on Thursday, Namrata Spencer NP dofetilide (TIKOSYN) capsule 125 mcg, 125 mcg, oral, BID, Namrata Spencer NP, 125 mcg at10/22/24 0819 fenofibrate nanocrystallized (TRICOR) tablet 145 mg, 145 mg, oral, Daily, Namrata Spencer NP, 145 mg at 10/22/24818 fluticasone propionate (FLONASE) 50 mcg/actuation nasal spray 2 spray, 2 spray, each nostril, DailyPRN, Namrata Spencer NP furosemide (LASIX) 10 mg/mL injection 40 mg, 40 mg, intravenous, Daily, NalluriMaribell NP, 40 mgat 10/22/24819 ipratropium-albuteroL (DUO-NEB) 0.5-2.5 mg/3 mL nebulizer solution 3 mL, 3 mL, nebulization, Q4H While awake (RT), Namrata Spencer NP, 3 mL at 10/22/241940 levothyroxine (SYNTHROID) tablet 25 mcg, 25 mcg, oral, Daily - 0600, Namrata Spencer NP,25 mcg at 10/22/24509 midodrine (PROAMATINE) tablet 10 mg, 10 mg, oral, TID AC, Delvin Mendenhall MD, 10 mg at 10/22/241706 ondansetron (ZOFRAN) injection 4 mg, 4 mg, intravenous, Q6H PRN, Namrata Spencer NP pantoprazole DR (PROTONIX) extended release tablet 40 mg, 40 mg, oral, Daily, Carla Jean MD,40 mg at 10/22/24819 ramelteon (ROZEREM) tablet 8 mg, 8 mg, oral, Nightly PRN, Namrata Spencer NP, 8 mg at 10/21/242032 senna-docusate (PERICOLACE) 8.6-50 mg per tablet 1 tablet, 1 tablet, oral, BID, Luan Guillermo DO, 1 tablet at 10/22/24819 [Held by Provider] warfarin (COUMADIN) tablet 1 mg, 1 mg, oral, Once - 1800, Donte Camacho MD Lab/Radiology/Diagnostic Review: Recent Results (from the past 24 hours) Magnesium Collection Time: 10/22/24 3:54 AM Result Value Ref Range Magnesium 2.1 1.4 - 2.5 mg/dL CBC with auto differential Collection Time: 10/22/24 3:54 AM Result Value Ref Range WBC 5.79 3.80 - 9.90 K/cumm Hgb 13.8 13.0 - 17.5 g/dL Hct 42.0 38.9 - 50.3 % Plt 104 (L) 150 - 400 K/cumm MPV 12.3 9.1 - 12.3 fL RBC 4.46 4.30 - 5.80 M/cumm MCV 94.2 81.3 - 96.4 fL MCH 30.9 27.1 - 33.3 pg MCHC 32.9 32.3 - 35.7 g/dL RDW CV 16.7 (H) 11.1 - 14.9 % RDW SD 57.1 (H) 35.7 - 48.1 fL NRBC abs 0.00 0.00 - 0.01 K/cumm Basic metabolic panel Collection Time: 10/22/24 3:54 AM Result Value Ref Range Sodium 134 (L) 135 - 145 mmol/L Potassium, pl 4.3 3.3 - 4.9 mmol/L Chloride 95 (L) 97 - 110 mmol/L CO2 33 (H) 22 - 32 mmol/L Anion gap 6 2 - 15 mmol/L BUN 47 (H) 6 - 25 mg/dL Creatinine 1.99 (H) 0.80 - 1.30 mg/dL Glucose 101 70 - 199 mg/dL Calcium 8.8 8.5 - 10.3 mg/dL Protime-INR Collection Time: 10/22/24 3:54 AM Result Value Ref Range PT 28.2 (H) 9.7 - 13.0 sec INR 2.56 (H) 0.90 - 1.20 Differential, auto Collection Time: 10/22/24 3:54 AM Result Value Ref Range Neutrophil abs 4.61 1.50 - 6.50 K/cumm Imm gran abs 0.01 0.00 - 0.10 K/cumm Lymphocyte abs 0.52 (L) 0.80 - 3.30 K/cumm Monocyte abs 0.58 0.20 - 0.80 K/cumm Eosinophil abs 0.05 0.00 - 0.50 K/cumm Basophil abs 0.02 0.00 - 0.10 K/cumm Neutrophil pct 79.6 % Imm gran pct 0.2 % Lymphocyte pct 9.0 % Monocyte pct 10.0 % Eosinophil pct 0.9 % Basophil pct 0.3 % eGFR Collection Time: 10/22/24 3:54 AM Result Value Ref Range eGFR 32 (L) >=60 mL/min/1.73 m2 Recent Labs Lab Units 10/19/24 1233 CLARITY U Clear COLOR U Yellow KETONES UR Negative NITRITE UR Negative SPEC GRAV U 1.007 UROBILINOGEN UR mg/dL <2.0 CT Chest WO Contrast Result Date: 10/18/2024 Narrative: EXAMINATION: Computed tomography of the chest without intravenous contrast HISTORY: Abnormal chest radiograph. TECHNIQUE: Transaxial computed tomographic images of the chest were obtained without intravenous contrast according to the standard protocol. COMPARISON: Chest radiograph dated same day. FINDINGS: There is a moderately sized right pleural effusion with fluid in the right majorfissure and right upper, middle, and lower lobe consolidations most notable in the right lower lobe. Small left pleural effusion with left lower lobe atelectasis. Severe centrilobular emphysematous changes. Poststernotomy changes. Mild mediastinal lymphadenopathy with largest mediastinal node measur ing 1.1 cm in short axis dimension. Nodules in the left upper lobe, largest measuring approximately1.1 x 0.5 cm. Follow-up suggested. Main pulmonary [...] may represent pseudo-thickening from underdistention versus gastritis. Impression: 1. Moderately sized right pleural effusion with [...] Electronically signed by: Rajendra Oh II, D.O. ECG 12 lead Result Date: 10/18/2024 Narrative: Vent Rate: 80 bpm RR Interval: 749 msec RI Interval: 140 msec QRS Duration: 164 msec QT Interval: 377 msec QTC Interval: 412 msec P-R-T [place]: -52 - 226 - 226 degrees IMPRESSION: ELECTRONICVENTRICULAR PACEMAKER ST DEPRESSION, CONSIDER SUBENDOCARDIAL INJURY [0.1+ mV ST DEPRESSION] ABNORMAL ECG No change compared to prior EKG Electronically Signed By: Emilio Ratliff MD [facility] XR Chest 1 Vw Portable Result Date: 10/18/2024 Narrative: EXAMINATION: XR CHEST 1 VIEW DATE: 10/18/2024 11:20 AM INDICATION: Shortness of breath. COMPARISON: 02/23/2023. Impression: ICD leads are intact. Post sternotomy changes are noted. Cardiac mediastinal silhouettewithin normal limits. There is a small right pleural effusion. Opacities in the right lower lobe suggestive of pneumonia, increased from prior. Follow-up suggested to ensure resolution. No acute osseous abnormality. Electronically signed by: Rajendra Oh II, D.O. ASSESSMENT/PLAN CKD 3b CRS. CHF/dyspnea. R LL PNA. MBD. ICD status. RECOMMENDATIONS IV diuresis. CKD washburn. Overall improved. -10/20, BP low, start midodrine, IV ABX, decrease diuresis, CT scan kidneys. -10/21, urinary retention, ROSA worse, guerrero placed, will follow, CT scan to be reviewed. -10/22, CT scan kidneys shows exophytic cysts, will do MRI as o/p, continue guerrero, ROSA better, good UO, no new changes, difficult guerrero yesterday. I can be reached at [phone] with any concerns. Thank you Luan Guillermo DO for the consult. Delvin Mendenhall MD [employer] [phone] * Shailesh Pabon MD - 10/22/2024 10:14 AM CDT Pulmonary Daily Progress Chief complaint/reason for consult: New O2 requirement, Pulmonary nodules, pulmonary hypertension . Interval History: Comf on NC Coughing up a small amount of blood Afebrile No distress Presenting History: 84 y/o CM who presented to the ED on 10/18/24 with complaints of shortness of breath that had been worsening over the last week. He was reportedly satting 70% on room air when EMSarrived. 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 States he has been having increased BAH. Does have cough at times that is productive of clear sputum. Started smoking age 12 and quit in 1996, smoked up to 1.5 ppd for 44 years, giving a 66 pack year hx. He has been on amiodarone in the past but not for sometime. 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 No service. Has lived in the [place] his whole life. CT Chest 10/18/24: Very severe emphysematous changes, moderate right pleural effusion, Carries a hx of atrial fibrillation s/p multiple ablations, HFrEF, ischemic cardiomyopathy s/p BiVICD, CKD, CAD s/p CABG, Allergies: Allergies Allergen Reactions Trazodone Hcl Unknown Morphine Hydrocodone Unknown Lunesta [Eszopiclone] Other (See comments) Gave him crazy dreams Tramadol Nausea only Vicodin [Hydrocodone-Acetaminophen] Nausea only Medications: Scheduled Meds:ampicillin-sulbactam, 3 g, intravenous, Q12H THERESA aspirin, 81 mg, oral, Daily atenoloL, 50 mg, oral, Daily atorvastatin, 20 mg, oral, Nightly calcitRIOL, 0.25 mcg, oral, Daily [Held by Provider] digoxin, 250 mcg, oral, Once per day on Thursday dofetilide, 125 mcg, oral, BID fenofibrate nanocrystallized, 145 mg, oral, Daily furosemide, 40 mg, intravenous, Daily ipratropium-albuteroL, 3 mL, nebulization, Q4H While awake (RT) levothyroxine, 25 mcg, oral, Daily - 0600 midodrine, 10 mg, oral, TID AC pantoprazole DR, 40 mg, oral, Daily polyethylene glycol, 17 g, oral, Daily senna-docusate, 1 tablet, oral, BID warfarin, 1 mg, oral, Once - 1800 Continuous Infusions: PRN Meds:. clorazepate fluticasone propionate ondansetron ramelteon ROS Above review of system reviewed on 10/22/2024 Vitals: Vitals: 10/22/24 0600 10/22/24 0743 10/22/24 0924 10/22/24 0938 BP: 91/52 BP Location: Left arm Patient Position: Lying Pulse: 84 Resp: 20 Temp: 36.6 ??C (97.9 ??F) TempSrc: SpO2: 91% 99% 94% Weight: 77 kg (169 lb 12.1 oz) Height: Temp (24hrs), Av.7 ??C (98 ??F), Min:36.6 ??C (97.9 ??F), Max:36.8 ??C (98.2 ??F) Intake/Output Summary (Last 24 hours) at 10/22/2024 1015 Last data filed at 10/22/2024 0156 Gross per 24 hour Intake 100 ml Output 2325 ml Net -2225 ml Physical Exam Constitutional: General: He is not in acute distress. Appearance: He is well-developed. HENT: Head: Normocephalic and atraumatic. Eyes: Conjunctiva/sclera: Conjunctivae normal. Cardiovascular: Rate and Rhythm: Normal rate and regular rhythm. Heart sounds: No murmur heard. Pulmonary: Effort: Pulmonary effort is normal. No respiratory distress. Breath sounds: Normal breath sounds. No stridor. No wheezing, rhonchi or rales. Abdominal: General: Bowel sounds are normal. Palpations: Abdomen is soft. Musculoskeletal: Right lower leg: No edema. Left lower leg: No edema. Skin: General: Skin is warm and dry. Neurological: Mental Status: He is alert. Lab/Radiology/Diagnostic Review: Labs: Recent Labs Lab Units 10/22/24 0354 10/21/24 0517 10/20/24 0638 WBC K/cumm 5.79 4.85 4.94 HEMOGLOBIN g/dL 13.8 14.6 14.2 HEMATOCRIT % 42.0 45.1 43.3 PLATELETS K/cumm 104* 108* 106* NEUTROS PCT % 79.6 74.9 71.9 LYMPHS PCT % 9.0 12.8 14.6 MONOS PCT % 10.0 10.5 12.3 EOS PCT % 0.9 1.0 0.6 Recent Labs Lab Units 10/22/24 0354 10/21/24 0517 10/20/24 0638 10/19/24 0512 10/18/24 1041 SODIUM mmol/L 134* 133* 133* < > 132* POTASSIUM PLASMA mmol/L 4.3 4.5 4.4 < > 5.0* CHLORIDE mmol/L 95* 95* 96* < > 97 CO2 mmol/L 33* 28 30 < > 28 ANIONGAP mmol/L 6 10 10 < > 7 GLUCOSE mg/dL 101 94 106 < > 90 BUN SERUM mg/dL 47* 48* 46* < > 29* CREATININE mg/dL 1.99* 2.23* 2.43* < > 1.62* CALCIUM mg/dL 8.8 8.8 8.8 < > 9.6 ALBUMIN g/dL -- -- -- -- 3.5 ALK PHOS Units/L -- -- -- -- 52 ALT Units/L -- -- -- -- 15 AST Units/L -- -- -- -- 41 BILIRUBIN TOTAL mg/dL -- -- -- -- 2.1* < > = values in this interval not displayed. Imaging: CT abd 10/21/24: similar b effusions, R>L w RLL consolidation Other diagnostic tests: Echo 10/20/24: EF 37%, LVDD, RV volume overload, RVSP 60 I have personally reviewed above laboratory findings, chest imaging, and diagnostic tests 10/22/2024 Assessment and Plan: Acute hypoxic respiratory insufficiency hemoptysis Severe emphysema RLL cavitary lesion: pneumonia vs malignancy vs bullous disease B effusions, R>L, likely due to CHF, parapneumonic also possible Afib CHF CKD CAD w hx CABG Recs: - Wean supplemental O2 for SpO2 88-92% - Nebs TID - Unasyn day 4, completed azithromycin - If pleural effusion increases in size would need diagnostic thoracentesis (on coumadin); check CXR tomorrow - Will need repeat imaging in 4-6 weeks otherwise - may need to hold anticoagulation * Soledad Camacho, [facility] - 10/22/2024 8:38 AM CDT Pharmacokinetic Consult - Anticoagulation Dosing Ian Monsalve is a 84 y.o. male who has been consulted for pharmacy warfarin dosing and monitoring. Current Hematologic Labs INR Date Value Ref Range Status 10/22/2024 2.56 (H) 0.90 - 1.20 Final Comment: Interpretive data Oral anticoagulant therapeutic ranges: Venous thromboembolism prophylaxis or treatment: 2.0-3.0 CARDIOLOGY Standard range: 2.0-3.0 High-intensity range: 2.5-3.5 Refer to indication-specific guidelines for appropriate target ranges for prosthetic heart valve replacement. Current interpretive data was last revised on 2019. 10/21/2024 2.34 (H) 0.90 - 1.20 Final Comment: Interpretive data Oral anticoagulant therapeutic ranges: Venous thromboembolism prophylaxis or treatment: 2.0-3.0 CARDIOLOGY Standard range: 2.0-3.0 High-intensity range: 2.5-3.5 Refer to indication-specific guidelines for appropriate target ranges for prosthetic heart valve replacement. Current interpretive data was last revised on 2019. 10/20/2024 3.12 (H) 0.90 - 1.20 Final Comment: Interpretive data Oral anticoagulant therapeutic ranges: Venous thromboembolism prophylaxis or treatment: 2.0-3.0 CARDIOLOGY Standard range: 2.0-3.0 High-intensity range: 2.5-3.5 Refer to indication-specific guidelines for appropriate target ranges for prosthetic heart valve replacement. Current interpretive data was last revised on 2019. Hgb Date Value Ref Range Status 10/22/2024 13.8 13.0 - 17.5 g/dL Final Hct Date Value Ref Range Status 10/22/2024 42.0 38.9 - 50.3 % Final Plt Date Value Ref Range Status 10/22/2024 104 (L) 150 - 400 K/cumm Final No results found for: PTT Assessment Patient was admitted on warfarin with a dose of 2 mg on Thursday and 1 mg all other days (Wed to Mon). Patient is on warfarin for an indication of atrial fibrillation. Goal INR is 2-3. Potential interacting medications: unasyn (could potentially increase INR) Plan Date INR Dose given Comments 10/18 2mg Patient already took dose at home. Daily INR ordered 10/19 3.14 1mg Slightly above goal will give home dose today and may need to decrease for further doses 10/20 3.12 1mg 10/21 2.34 1mg 10/22 2.56 1mg Will continue to follow patient's clinical progress daily. Soledad Camacho PharmD BCPS * Luan Guillermo, DO - 10/22/2024 8:16 AM CDT Daily Progress Subjective Chief complaint of Dyspnea, Abdominal pain/dysuria. Interval History: Patient seen and examined at bedside. No apparent distress at this time. Reports abdominal pain is much better today after having guerrero placed and 3 BM. Hematuria is noted in the guerrero output - likely trauma from guerrero insertion + warfarin use. While talking to the night supervisor -patient indicated that he had coughed up some blood - timeline of when this began is questionable. Remains on supplemental oxygen at this time. Objective Physical Exam: General Appearance: Alert, cooperative, no distress, appears stated age, well developed, well nourished Head: Normocephalic, without obvious abnormality, atraumatic Eyes: Conjunctiva/corneas clear, EOM's intact, both eyes, anicteric Ears: Normal external ear canals, both ears Nose: Nares normal, septum midline, mucosa normal, no drainage Throat: Lips, mucosa, and tongue normal; mucous membranes moist Neck: Supple Lungs: Clear to auscultation bilaterally, respirations unlabored Cardiovascular: Regular rate and rhythm Abdomen: Soft, non-tender, bowel sounds decr, non-distended Extremities: Extremities normal, atraumatic, no cyanosis, +2 LE edema Skin: Skin color, texture, turgor normal, no rashes Psychosocial: Normal affect and mood Lab/Radiology/Diagnostic Review: Laboratory review: Lab results in the last 24 hours: Recent Results (from the past 24 hours) Magnesium Collection Time: 10/22/24 3:54 AM Result Value Ref Range Magnesium 2.1 1.4 - 2.5 mg/dL CBC with auto differential Collection Time: 10/22/24 3:54 AM Result Value Ref Range WBC 5.79 3.80 - 9.90 K/cumm Hgb 13.8 13.0 - 17.5 g/dL Hct 42.0 38.9 - 50.3 % Plt 104 (L) 150 - 400 K/cumm MPV 12.3 9.1 - 12.3 fL RBC 4.46 4.30 - 5.80 M/cumm MCV 94.2 81.3 - 96.4 fL MCH 30.9 27.1 - 33.3 pg MCHC 32.9 32.3 - 35.7 g/dL RDW CV 16.7 (H) 11.1 - 14.9 % RDW SD 57.1 (H) 35.7 - 48.1 fL NRBC abs 0.00 0.00 - 0.01 K/cumm Basic metabolic panel Collection Time: 10/22/24 3:54 AM Result Value Ref Range Sodium 134 (L) 135 - 145 mmol/L Potassium, pl 4.3 3.3 - 4.9 mmol/L Chloride 95 (L) 97 - 110 mmol/L CO2 33 (H) 22 - 32 mmol/L Anion gap 6 2 - 15 mmol/L BUN 47 (H) 6 - 25 mg/dL Creatinine 1.99 (H) 0.80 - 1.30 mg/dL Glucose 101 70 - 199 mg/dL Calcium 8.8 8.5 - 10.3 mg/dL Protime-INR Collection Time: 10/22/24 3:54 AM Result Value Ref Range PT 28.2 (H) 9.7 - 13.0 sec INR 2.56 (H) 0.90 - 1.20 Differential, auto Collection Time: 10/22/24 3:54 AM Result Value Ref Range Neutrophil abs 4.61 1.50 - 6.50 K/cumm Imm gran abs 0.01 0.00 - 0.10 K/cumm Lymphocyte abs 0.52 (L) 0.80 - 3.30 K/cumm Monocyte abs 0.58 0.20 - 0.80 K/cumm Eosinophil abs 0.05 0.00 - 0.50 K/cumm Basophil abs 0.02 0.00 - 0.10 K/cumm Neutrophil pct 79.6 % Imm gran pct 0.2 % Lymphocyte pct 9.0 % Monocyte pct 10.0 % Eosinophil pct 0.9 % Basophil pct 0.3 % eGFR Collection Time: 10/22/24 3:54 AM Result Value Ref Range eGFR 32 (L) >=60 mL/min/1.73 m2 Current Facility-Administered Medications Medication Dose Route Frequency Provider Last Rate Last Admin ampicillin-sulbactam (UNASYN) 3 g in sodium chloride 0.9% 100 mL IVPB 3 g intravenous Q12H Radha Day MD 220 mL/hr at 10/22/24 0820 3 g at 10/22/24 08 aspirin enteric coated tablet 81 mg 81 mg oral Daily Namrata Spencer NP 81 mg at 10/22/24817 atenoloL (TENORMIN) tablet 50 mg 50 mg oral Daily Namrata Spencer NP 50 mg at 10/19/24832 atorvastatin (LIPITOR) tablet 20 mg 20 mg oral Nightly Namrata Spencer NP 20 mg at 10/21/242034 calcitRIOL (ROCALTROL) capsule 0.25 mcg 0.25 mcg oral Daily Namrata Spencer NP 0.25 mcg at 10/22/24818 clorazepate (TRANXENE) tablet 7.5 mg 7.5 mg oral BID PRN Luan Guillermo DO [Held by Provider] digoxin (LANOXIN) tablet 250 mcg 250 mcg oral Once per day on Thursday Namrata Spencer NP dofetilide (TIKOSYN) capsule 125 mcg 125 mcg oral BID Namrata Spencer NP 125 mcg at 10/22/24818 fenofibrate nanocrystallized (TRICOR) tablet 145 mg 145 mg oral Daily Namrata Spencer NP145 mg at 10/22/24818 fluticasone propionate (FLONASE) 50 mcg/actuation nasal spray 2 spray 2 spray each nostril Daily PRN Namrata Spencer NP furosemide (LASIX) 10 mg/mL injection 40 mg 40 mg intravenous Daily Maribell Rob NP 40 mg at 10/22/24 0820 ipratropium-albuteroL (DUO-NEB) 0.5-2.5 mg/3 mL nebulizer solution 3 mL 3 mL nebulization Q4H Whileawake (RT) Namrata Spencer NP 3 mL at 10/22/24 1300 levothyroxine (SYNTHROID) tablet 25 mcg 25 mcg oral Daily - 0600 Namrata Spencer NP 25 mcg at 10/22/24 0510 midodrine (PROAMATINE) tablet 10 mg 10 mg oral TID AC Delvin Mendenhall MD 10 mg at 10/22/24 1120 ondansetron (ZOFRAN) injection 4 mg 4 mg intravenous Q6H PRN Namrata Spencer NP pantoprazole DR (PROTONIX) extended release tablet 40 mg 40 mg oral Daily Carla Jean MD 40 mg at 10/22/24 0820 ramelteon (ROZEREM) tablet 8 mg 8 mg oral Nightly PRN Namrata Spencer NP 8 mg at 10/21/243 senna-docusate (PERICOLACE) 8.6-50 mg per tablet 1 tablet 1 tablet oral BID Luan Guillermo DO 1 tablet at 10/22/24 0820 [Held by Provider] warfarin (COUMADIN) tablet 1 mg 1 mg oral Once - 1800 Donte Camacho MD Vitals: 24hr Min/Max: Temp Min: 36.6 ??C (97.9 ??F) Max: 36.8 ??C (98.2 ??F) Pulse Min: 78 Max: 84 BP Min: 91/52 Max: 132/73 Resp Min: 18 Max: 20 SpO2 Min: 90 % Max: 94 % Most Recent : Vitals: 10/22/24 0743 BP: 91/52 Pulse: 84 Resp: 20 Temp: 36.6 ??C (97.9 ??F) SpO2: 91% I/O last 2 completed shifts: In: 100 [IV Piggyback:100] Out: 2325 [Urine:2325] No intake/output data recorded. Assessment/Plan Principal Problem: Acute congestive heart failure, unspecified heart failure type (HCC) Acute hypoxic respiratory failure on admission. Differential includes CHF exacerbation, pneumonia. Currently on 4L NC - titrate as able. Repeat Xray tomorrow Congestive heart failure exacerbation on admission. BNP 8636. 2D echo performed- EF 37%, Mod-Severepulmonary htn, Diastolic dysfunction present. On IV Lasix daily - monitor UOP. Cardiology service consulted. Initiate GDMT as appropriate. Moderately sized right pleural effusion with consolidations in the right upper, right lower, and right middle lobes suggestive of multifocal pneumonia, on admission CT. Respiratory PCR negative. Blood cultures NGTD. Strep pneumoniae and Legionella antigens are negative. Was on azithromycin, Rocephin starting on 10/18/2024; on 10/19/2024 Rocephin was changed to Unasyn - continue unasyn therapy. Pulmonology following Multiple left upper lobe pulmonary nodules largest measuring 1.1 cm, on admission CT. Dilated main pulmonary artery suggestive of pulmonary arterial hypertension, on admission CT. Severe centrilobular emphysematous changes, on admission CT. Nonspecific mild gastric wall thickening may represent pseudo-thickening from underdistention versus gastritis, on admission CT. On PPI. Atrial fibrillation, currently paced. On digoxin, will hold due to elevated level. On Tikosyn. On Coumadin, daily INRs. Hyperlipidemia. On statin, Tricor. Hypothyroidism. On Synthroid. CAD. S/p coronary artery bypass graft x two - left internal mammary artery to the left anterior descending, left radial artery to the posterior descending artery, on 02/24/1997. History of VT, status post ablation on 12/31/2015, 04/08/2016 EP study. Hypotension - Reportedly having low blood pressures today - Try to avoid IVF in setting of volume overload. Trial midodrine 5 mg TID Right Kidney Mass - US retroperitoneum - Right kidney mass up to 1.4 cm - MRI recommended, patient with defibrillator - not able to obtain an MRI. Will discuss with nephrology regarding recommendations for further evaluation. Urine retention - reported abdominal pain - CT imaging performed - No acute findings noted. On review - bladder looked distended. Bladder scan done with 600 cc - straight cath done. Q6 hour bladder scans - if additional straight cath needed, recommend guerrero placement Hematuria - likely 2/2 trauma from guerrero insertion + being on blood thinners. Will monitor - if notclearing in 24-48 hours, will ask urology to see. Hold warfarin for now (Cleared to do so by cardiology) Constipation -started on bowel regimen Hyponatremia of 133, follow. Slight hyperkalemia, resolved. ROAS on CKD > Progressing favorably. Avoid nephrotoxic agents as able. Nephrology following - appreciate recommendations Slight thrombocytopenia of 104, follow. Elevated digoxin level of 1.3, follow. Troponin trend of 51, 54, 51, 51, with delta of 3, 0, 0; nonspecific. Prophylaxis. Protonix, Coumadin. * Donte Camacho MD - 10/22/2024 6:05 AM CDT Cardiology fu note [facility] Pertienent info was reviewed. The patient was seen in the presence of his . Patient was sitting in the recliner this morning and appears to be much more comfortable I discussed case with primary care team physician Dr. Luan Guillermo. Due to new hematuria he planning to hold the Coumadin for now. Urology may need to see patient on Thursday if him to repeat persist HPI: Patient is a 84 y.o. 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 Patient reports shortness of breath started 7 days ago and progressively got worse. EMS was called for further evaluation. On EMS arrival, patient was noted to be satting in the 70s on room air. 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 Patient also endorses poor appetite associated with generalized weakness. Ambulates with a cane at baseline. Also reports occasional productive cough with clear phlegm. Denies any other associated symptoms. Reports compliance with his home medications. On arrival to Emergency Room, vital signs, temp 97.6??, pulse 80, respiration 24, BP 121/81, O2 sats 99%. Labs, sodium 132, potassium 5.0, creatinine 1.62, BUN 29, proBNP 8,636, PLT 132. Initial troponin slightly elevated with insignificant delta.Paced rhythm on EKG. Respiratory panel negative. CT chest showing moderately sized right pleural effusion with consolidation in the right upper, right lower and right middle lobe suggestive of multifocal pneumonia. Multiple left upper lobe pulmonary nodules. Dilated main pulmonary artery suggestive of pulmonary arterial hypertension. Severe centrilobular emphysema toes changes. Nonspecific mild gastric wall thickening may represent pseudo thickening from under distention versus gastritis. Due to above, patient will be admitted for further evaluation, care and management. No past medical history on file. Past Surgical History: Procedure Laterality Date CHOLECYSTECTOMY Medications Prior to Admission Medication Sig Dispense Refill Last Dose/Taking aspirin 81 mg enteric coated tablet Take 1 tablet (81 mg total) by mouth daily 10/18/2024 Morning atenoloL (TENORMIN) 50 mg tablet Take 1 tablet (50 mg total) by mouth daily 10/17/2024 atorvastatin (LIPITOR) 20 mg tablet Take 1 tablet (20 mg total) by mouth nightly 10/17/2024 Bedtime calcitRIOL (ROCALTROL) 0.25 mcg capsule Take 1 capsule (0.25 mcg total) by mouth daily 10/18/2024 Morning clorazepate (TRANXENE) 15 mg tablet Take 0.5 tablets (7.5 mg total) by mouth 2 (two) times a day 10/18/2024 Morning digoxin (LANOXIN) 250 mcg (0.25 mg) tablet Take 1 tablet (250 mcg total) by mouth 3 (three) times aweek on Mon, Wed, Thu10/17/2024 ergocalciferol (VITAMIN D) 50,000 unit capsule Take 1 capsule (50,000 Units total) by mouth once a week on Thu Past Week fenofibrate nanocrystallized (TRICOR) 145 mg tablet Take 1 tablet (145 mg total) by mouth daily 10/17/2024 fluticasone propionate (Flonase Allergy Relief) 50 mcg/actuation nasal spray Administer 2 sprays into each nostril daily as needed for rhinitis or allergies Past Week levothyroxine (SYNTHROID) 25 mcg tablet Take 1 tablet (25 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) 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 10/18/2024 Morning Tikosyn 125 mcg capsule Take 1 capsule (125 mcg total) by mouth 2 (two) times a day 10/18/2024 Morning warfarin (COUMADIN) 2 mg tablet Take 1 tablet (2 mg total) by mouth once a week on Tuesdays10/18/2024 Morning warfarin (COUMADIN) 2 mg tablet Take 0.5 tablets (1 mg total) by mouth 6 (six) times a week from Thursday to Thursday10/17/2024 Morning Current Facility-Administered Medications: ampicillin-sulbactam (UNASYN) 3 g in sodium chloride 0.9% 100 mL IVPB, 3 g, intravenous, Q12H Ifeanyi CARDENAS Jessica Houston, MD, Last Rate: 220 mL/hr at 10/22/24155, Rate Verify at 10/22/24155 aspirin enteric coated tablet 81 mg, 81 mg, oral, Daily, Namrata Spencer NP, 81 mg at 10/21/24807 atenoloL (TENORMIN) tablet 50 mg, 50 mg, oral, Daily, Namrata Spencer NP, 50 mg at 10/19/24832 atorvastatin (LIPITOR) tablet 20 mg, 20 mg, oral, Nightly, Namrata Spencer NP, 20 mg at 10/21/242034 calcitRIOL (ROCALTROL) capsule 0.25 mcg, 0.25 mcg, oral, Daily, Namrata Spencer NP, 0.25mcg at 10/21/24807 clorazepate (TRANXENE) tablet 7.5 mg, 7.5 mg, oral, BID PRN, Luan Guillermo DO [Held by Provider] digoxin (LANOXIN) tablet 250 mcg, 250 mcg, oral, Once per day on Thursday, Namrata Spencer NP dofetilide (TIKOSYN) capsule 125 mcg, 125 mcg, oral, BID, Namrata Spencer NP, 125 mcg at10/21/242033 fenofibrate nanocrystallized (TRICOR) tablet 145 mg, 145 mg, oral, Daily, Namrata Spencer NP, 145 mg at 10/21/24807 fluticasone propionate (FLONASE) 50 mcg/actuation nasal spray 2 spray, 2 spray, each nostril, DailyPRN, Namrata Spencer NP furosemide (LASIX) 10 mg/mL injection 40 mg, 40 mg, intravenous, Daily, Maribell Rob NP ipratropium-albuteroL (DUO-NEB) 0.5-2.5 mg/3 mL nebulizer solution 3 mL, 3 mL, nebulization, Q4H While awake (RT), Namrata Spencer NP, 3 mL at 10/21/24 193 levothyroxine (SYNTHROID) tablet 25 mcg, 25 mcg, oral, Daily - 0600, Namrata Spencer NP,25 mcg at 10/22/24 05 midodrine (PROAMATINE) tablet 10 mg, 10 mg, oral, TID AC, Delvin Mendenhall MD, 10 mg at 10/21/241755 ondansetron (ZOFRAN) injection 4 mg, 4 mg, intravenous, Q6H PRN, Namrata Spencer NP pantoprazole DR (PROTONIX) extended release tablet 40 mg, 40 mg, oral, Daily, Carla Jean MD,40 mg at 10/21/24 08 polyethylene glycol (MIRALAX) packet 17 g, 17 g, oral, Daily, Luan Guillermo DO, 17 g at 10/21/24 120 ramelteon (ROZEREM) tablet 8 mg, 8 mg, oral, Nightly PRN, Namrata Spencer NP, 8 mg at 10/21/242032 senna-docusate (PERICOLACE) 8.6-50 mg per tablet 1 tablet, 1 tablet, oral, BID, Luan Guillermo DO, 1 tablet at 10/21/242033 Allergies Allergen Reactions Trazodone Hcl Unknown Morphine Hydrocodone Unknown Lunesta [Eszopiclone] Other (See comments) Gave him crazy dreams Tramadol Nausea only Vicodin [Hydrocodone-Acetaminophen] Nausea only Social History Tobacco Use Smoking status: Former Current packs/day: 0.00 Types: Cigarettes Start date: 1955 Quit date: 1997 Years since quittin.4 Passive exposure: Past Smokeless tobacco: Never Substance and Sexual Activity Drug use: Not on file Sexual activity: Not on file Alcohol Use: Unknown (02/23/2023) AUDIT-C Frequency of Alcohol Consumption: Not on file Average Number of Drinks: Patient does not drink Frequency of Binge Drinking: Not on file No family history on file. Review of Systems: Denies focal weakness Denies chest pain or palpitation Shortness of breath improved. Patient concerned about hematuria and trouble to urinate prior to placement of Guerrero catheter. Other 12 review of systems unremarkable Objective Vitals: 24hr Min/Max: Temp Min: 36.6 ??C (97.9 ??F) Max: 36.8 ??C (98.2 ??F) Pulse Min: 78 Max: 80 BP Min: 97/55 Max: 132/73 Resp Min: 18 Max: 18 SpO2 Min: 90 % Max: 94 % Most Recent: Vitals: 10/22/24 0014 BP: 97/55 Pulse: 79 Resp: 18 Temp: 36.8 ??C (98.2 ??F) SpO2: 90% I/O last 2 completed shifts: In: - Out: 2475 [Urine:2475] I/O this shift: In: 100 [IV Piggyback:100] Out: 300 [Urine:300] Physical Exam: Constitutional: Currently resting comfortably mildly short of breath HENT: Head: Normocephalic and atraumatic. Right Ear: External ear normal. Left Ear: External ear normal. Mouth/Throat: Mouth: Mucous membranes are moist. Eyes: Extraocular Movements: Extraocular movements intact. Conjunctiva/sclera: Conjunctivae normal. Cardiovascular: Rate and Rhythm: Normal rate and regular rhythm. Heart sounds: No murmur heard. Pulmonary: Effort: Pulmonary effort is normal. No respiratory distress. Breath sounds: Coarse bilaterally Guerrero to gravity draining dark bloody urine Abdominal: General: Bowel sounds are normal. There is no distension. Palpations: Abdomen is soft. Tenderness: There is no abdominal tenderness. Musculoskeletal: Muscle wasting present Skin: General: Skin is warm and dry. Neurological: General: No focal deficit present. Mental Status: He is alert and oriented to person, place, and time. Psychiatric: Mood and Affect: Mood is down. Behavior: Behavior normal. Thought Content: Thought content normal. Lab/Radiology/Diagnostic Review: Laboratory review: Lab results in the last 24 hours: Recent Results (from the past 24 hours) Magnesium Collection Time: 10/22/24 3:54 AM Result Value Ref Range Magnesium 2.1 1.4 - 2.5 mg/dL CBC with auto differential Collection Time: 10/22/24 3:54 AM Result Value Ref Range WBC 5.79 3.80 - 9.90 K/cumm Hgb 13.8 13.0 - 17.5 g/dL Hct 42.0 38.9 - 50.3 % Plt 104 (L) 150 - 400 K/cumm MPV 12.3 9.1 - 12.3 fL RBC 4.46 4.30 - 5.80 M/cumm MCV 94.2 81.3 - 96.4 fL MCH 30.9 27.1 - 33.3 pg MCHC 32.9 32.3 - 35.7 g/dL RDW CV 16.7 (H) 11.1 - 14.9 % RDW SD 57.1 (H) 35.7 - 48.1 fL NRBC abs 0.00 0.00 - 0.01 K/cumm Basic metabolic panel Collection Time: 10/22/24 3:54 AM Result Value Ref Range Sodium 134 (L) 135 - 145 mmol/L Potassium, pl 4.3 3.3 - 4.9 mmol/L Chloride 95 (L) 97 - 110 mmol/L CO2 33 (H) 22 - 32 mmol/L Anion gap 6 2 - 15 mmol/L BUN 47 (H) 6 - 25 mg/dL Creatinine 1.99 (H) 0.80 - 1.30 mg/dL Glucose 101 70 - 199 mg/dL Calcium 8.8 8.5 - 10.3 mg/dL Protime-INR Collection Time: 10/22/24 3:54 AM Result Value Ref Range PT 28.2 (H) 9.7 - 13.0 sec INR 2.56 (H) 0.90 - 1.20 Differential, auto Collection Time: 10/22/24 3:54 AM Result Value Ref Range Neutrophil abs 4.61 1.50 - 6.50 K/cumm Imm gran abs 0.01 0.00 - 0.10 K/cumm Lymphocyte abs 0.52 (L) 0.80 - 3.30 K/cumm Monocyte abs 0.58 0.20 - 0.80 K/cumm Eosinophil abs 0.05 0.00 - 0.50 K/cumm Basophil abs 0.02 0.00 - 0.10 K/cumm Neutrophil pct 79.6 % Imm gran pct 0.2 % Lymphocyte pct 9.0 % Monocyte pct 10.0 % Eosinophil pct 0.9 % Basophil pct 0.3 % eGFR Collection Time: 10/22/24 3:54 AM Result Value Ref Range eGFR 32 (L) >=60 mL/min/1.73 m2 Lipids: No results found for: CHOL, CHLPL, HDL, LDLCALC, TRIG, CHOLHDL and Cardiac Enzymes: No results found for: CKTOTAL, CKMB, CKMBINDEX, TROPONINT ECG: Results for orders placed during the hospital encounter of 10/18/24 ECG 12 lead Narrative Vent Rate: 80 bpm RR Interval: 749 msec RI Interval: 140 msec QRS Duration: 164 msec QT Interval: 377 msec QTC Interval: 412 msec P-R-T [place]: -52 - 226 - 226 degrees IMPRESSION: ELECTRONIC VENTRICULAR PACEMAKER ST DEPRESSION, CONSIDER SUBENDOCARDIAL INJURY [0.1+ mV ST DEPRESSION] ABNORMAL ECG No change compared to prior EKG Electronically Signed By: Emilio Ratliff MD [facility] Impression recommendations CHF, Systolic acute on chronic ischemic cardiomyopathy, Dyspnea Presence of cardiac device Presence of thrive Kidney mass will defer that to primary Hematuria after placement of the Guerrero I Dr. Camacho saw and examined the patient. Pertinent information was reviewed. Patient is known to me from follow-up as outpatient. He usually sees me in the [place] office. Recently he has being feeling more fatigued has worsening shortness of breath patient. Do not recommend cardiac catheterization because that per the patient on dialysis. Will adjust patient's medications were discussed case with nephrology team. Avoid over diuresing Continue present cardiac medications will I discussed case with primary care team physician Dr. Luan Guillermo. Due to new hematuria he planning to hold the Coumadin for now. Urology may need to see patient on Thursday if him to repeat persist * Donte Camacho MD - 10/22/2024 6:05 AM CDT Pertinent info was reviewed. Full note to follow * Maribell Rob NP - 10/21/2024 12:37 PM CDT Daily Progress SUBJECTIVE: Mr. Monsalve is resting in bed. Still on 4L o2 NC. Denies CP. Feeling weak and tired. OBJECTIVE: Vitals: 10/21/24 0005 10/21/24 0410 10/21/24 0810 10/21/24 0858 BP: 92/47 90/50 98/50 BP Location: Left arm Left arm Left arm Patient Position: HOB 30 degrees HOB 30 degrees HOB 30 degrees Pulse: 80 80 80 Resp: 18 18 18 Temp: 36.7 ??C (98.1 ??F) 36.9 ??C (98.4 ??F) 36.8 ??C (98.2 ??F) TempSrc: Oral Oral Oral SpO2: 93% 95% 90% 93% Weight: Height: Intake/Output Summary (Last 24 hours) at 10/21/2024 1237 Last data filed at 10/21/2024 0410 Gross per 24 hour Intake -- Output 1050 ml Net -1050 ml Scheduled Medications Medication Dose Route Frequency ampicillin-sulbactam (UNASYN) 3 g in sodium chloride 0.9% 100 mL IVPB 3 g intravenous Q12H THERESA aspirin enteric coated tablet 81 mg 81 mg oral Daily atenoloL (TENORMIN) tablet 50 mg 50 mg oral Daily atorvastatin (LIPITOR) tablet 20 mg 20 mg oral Nightly calcitRIOL (ROCALTROL) capsule 0.25 mcg 0.25 mcg oral Daily clorazepate (TRANXENE) tablet 7.5 mg 7.5 mg oral BID [Held by Provider] digoxin (LANOXIN) tablet 250 mcg 250 mcg oral Once per day on Thursday dofetilide (TIKOSYN) capsule 125 mcg 125 mcg oral BID fenofibrate nanocrystallized (TRICOR) tablet 145 mg 145 mg oral Daily furosemide (LASIX) 10 mg/mL injection 40 mg 40 mg intravenous BID DIURETIC ipratropium-albuteroL (DUO-NEB) 0.5-2.5 mg/3 mL nebulizer solution 3 mL 3 mL nebulization Q4H Whileawake (RT) levothyroxine (SYNTHROID) tablet 25 mcg 25 mcg oral Daily - 0600 midodrine (PROAMATINE) tablet 10 mg 10 mg oral TID AC pantoprazole DR (PROTONIX) extended release tablet 40 mg 40 mg oral Daily polyethylene glycol (MIRALAX) packet 17 g 17 g oral Daily senna-docusate (PERICOLACE) 8.6-50 mg per tablet 1 tablet 1 tablet oral BID warfarin (COUMADIN) tablet 1 mg 1 mg oral Once - 1800 LABS: Recent Labs Lab Units 10/21/24 0517 WBC K/cumm 4.85 HEMOGLOBIN g/dL 14.6 HEMATOCRIT % 45.1 PLATELETS K/cumm 108* Recent Labs Lab Units 10/21/24 0517 10/19/24 0512 10/18/24 1041 SODIUM mmol/L 133* < > 132* POTASSIUM PLASMA mmol/L 4.5 < > 5.0* CHLORIDE mmol/L 95* < > 97 CO2 mmol/L 28 < > 28 ANIONGAP mmol/L 10 < > 7 GLUCOSE mg/dL 94 < > 90 BUN SERUM mg/dL 48* < > 29* CREATININE mg/dL 2.23* < > 1.62* CALCIUM mg/dL 8.8 < > 9.6 ALBUMIN g/dL -- -- 3.5 ALK PHOS Units/L -- -- 52 ALT Units/L -- -- 15 AST Units/L -- -- 41 BILIRUBIN TOTAL mg/dL -- -- 2.1* < > = values in this interval not displayed. No results found for: BNP No results found for: TROPONINI Exam General: in no apparent distress Neuro: Alert and oriented x 3, moves all extremities well Lungs: symmetric, unlabored, clear to auscultation bilaterally Heart: S1,S2, regular rate & rhythm, no murmurs, rubs, or gallops Abdomen: soft, non-tender, non-distended, bowel sounds present Extremities: no LE edema, palpable peripheral pulses BL ASSESSMENT/PLAN: Acute hypoxemic respiratory failure Likely 2/2 CHF exacerbation/pneumonia -Currently on oxygen 4 L NC -Continue O2. Wean as tolerated -Iv antibiotics -Pulmonary consult Acute on chronic systolic HF -proBNP 8,636 on admission -Pleural effusion on the CT -On IV Lasix 40 mg bid. Cr mildly up trending. Changed lasix 40 mg to daily from BID. Monitor renalfunction and lytes,I/o's -Continue atenolol Ischemic cardiomyopathy -S/p BIV ICD implantation History of V-tach Atrial fibrillation -S/p ablation; paced rhythm on EKG -Continue digoxin, Tikosyn -Warfarin dosing per pharmacy -Keep K>/4,mag>/2 CAD -S/p CABG -stable with no angina -Continue ASA, statins Hypertension -Bp stable/controlled Hyperlipidemia -Continue statin Hypothyroidism -Continue levothyroxine CKD -Creatinine 2.23 -Nephrology consult Maribell Rob NP [facility] 10/21/2024 12:37 PM * Delvin Mendenhall MD - 10/21/2024 10:49 AM CDT Nephrology Progress Note [facility] SUBJECTIVE 10/21 Worse today. Guererro placed. Cr 2.2. D/w . 10/20 Doing better. Ambulated with assistance. Renal mass noted. 10/19 Some better. Cr 2.3 CKD washburn ongoing. IV ABX,. Has PNA and CHF. OBJECTIVE Vitals: Vitals: 10/21/24 1632 10/21/24 1641 10/21/24 1937 10/21/242023 BP: 102/62 BP Location: Left arm Patient Position: HOB 30 degrees Pulse: 79 78 80 80 Resp: 18 Temp: 36.6 ??C (97.9 ??F) TempSrc: Oral SpO2: 90% 92% 94% 90% Weight: Height: Intake/Output Summary (Last 24 hours) at 10/21/2024 2249 Last data filed at 10/21/20242023 Gross per 24 hour Intake -- Output 2475 ml Net -2475 ml REVIEW OF SYSTEMS Review of Systems Constitutional: Negative. HENT: Negative. Eyes: Negative. Respiratory: Negative. Cardiovascular: Negative. Gastrointestinal: Negative. Genitourinary: Negative. Musculoskeletal: Negative. Skin: Negative. Allergic/Immunologic: Negative. Hematological: Negative. All other systems reviewed and are negative. PHYSICAL EXAM Physical Exam Constitutional: Appears well-developed. HENT: wnl Head: Normocephalic. Eyes: Pupils are equal, round, and reactive to light. Neck: Normal range of motion. Neck supple. Cardiovascular: Normal rate. Pulmonary/Chest: Effort normal and breath sounds normal. Abdominal: Soft. Musculoskeletal: Normal range of motion. Neurological: Alert, oriented. Skin: Skin is warm. Nursing note and vitals reviewed. MEDICATIONS Current Facility-Administered Medications: ampicillin-sulbactam (UNASYN) 3 g in sodium chloride 0.9% 100 mL IVPB, 3 g, intravenous, Q12H Ifeanyi CARDENAS Jessica Houston, MD, Last Rate: 220 mL/hr at 10/21/242034, 3 g at 10/21/242034 aspirin enteric coated tablet 81 mg, 81 mg, oral, Daily, Namrata Spencer NP, 81 mg at 10/21/24807 atenoloL (TENORMIN) tablet 50 mg, 50 mg, oral, Daily, Namrata Spencer NP, 50 mg at 10/19/24832 atorvastatin (LIPITOR) tablet 20 mg, 20 mg, oral, Nightly, Namrata Spencer NP, 20 mg at 10/21/242034 calcitRIOL (ROCALTROL) capsule 0.25 mcg, 0.25 mcg, oral, Daily, Namrata Spencer NP, 0.25mcg at 10/21/24807 clorazepate (TRANXENE) tablet 7.5 mg, 7.5 mg, oral, BID PRN, Luan Guillermo DO [Held by Provider] digoxin (LANOXIN) tablet 250 mcg, 250 mcg, oral, Once per day on Thursday, Namrata Spencer NP dofetilide (TIKOSYN) capsule 125 mcg, 125 mcg, oral, BID, Namrata Spencer NP, 125 mcg at10/21/242033 fenofibrate nanocrystallized (TRICOR) tablet 145 mg, 145 mg, oral, Daily, KaNamrata madrid NP, 145 mg at 10/21/24 0808 fluticasone propionate (FLONASE) 50 mcg/actuation nasal spray 2 spray, 2 spray, each nostril, DailyPRN, Namrata Spencer NP [START ON 10/22/2024] furosemide (LASIX) 10 mg/mL injection 40 mg, 40 mg, intravenous, Daily, Maribell Rob NP ipratropium-albuteroL (DUO-NEB) 0.5-2.5 mg/3 mL nebulizer solution 3 mL, 3 mL, nebulization, Q4H While awake (RT), Namrata Spencer NP, 3 mL at 10/21/24 1937 levothyroxine (SYNTHROID) tablet 25 mcg, 25 mcg, oral, Daily - 0600, Namrata Spencer NP,25 mcg at 10/21/24 05 midodrine (PROAMATINE) tablet 10 mg, 10 mg, oral, TID AC, Delvin Mendenhall MD, 10 mg at 10/21/24 175 ondansetron (ZOFRAN) injection 4 mg, 4 mg, intravenous, Q6H PRN, Namrata Spencer NP pantoprazole DR (PROTONIX) extended release tablet 40 mg, 40 mg, oral, Daily, Carla Jean MD,40 mg at 10/21/24807 polyethylene glycol (MIRALAX) packet 17 g, 17 g, oral, Daily, Luan Guillermo DO, 17 g at 10/21/24 120 ramelteon (ROZEREM) tablet 8 mg, 8 mg, oral, Nightly PRN, Namrata Spencer NP, 8 mg at 10/21/242032 senna-docusate (PERICOLACE) 8.6-50 mg per tablet 1 tablet, 1 tablet, oral, BID, Luan Guillermo DO, 1 tablet at 10/21/242033 Lab/Radiology/Diagnostic Review: Recent Results (from the past 24 hours) Magnesium Collection Time: 10/21/24 5:17 AM Result Value Ref Range Magnesium 2.1 1.4 - 2.5 mg/dL CBC with auto differential Collection Time: 10/21/24 5:17 AM Result Value Ref Range WBC 4.85 3.80 - 9.90 K/cumm Hgb 14.6 13.0 - 17.5 g/dL Hct 45.1 38.9 - 50.3 % Plt 108 (L) 150 - 400 K/cumm MPV 11.2 9.1 - 12.3 fL RBC 4.73 4.30 - 5.80 M/cumm MCV 95.3 81.3 - 96.4 fL MCH 30.9 27.1 - 33.3 pg MCHC 32.4 32.3 - 35.7 g/dL RDW CV 16.8 (H) 11.1 - 14.9 % RDW SD 58.7 (H) 35.7 - 48.1 fL NRBC abs 0.00 0.00 - 0.01 K/cumm Basic metabolic panel Collection Time: 10/21/24 5:17 AM Result Value Ref Range Sodium 133 (L) 135 - 145 mmol/L Potassium, pl 4.5 3.3 - 4.9 mmol/L Chloride 95 (L) 97 - 110 mmol/L CO2 28 22 - 32 mmol/L Anion gap 10 2 - 15 mmol/L BUN 48 (H) 6 - 25 mg/dL Creatinine 2.23 (H) 0.80 - 1.30 mg/dL Glucose 94 70 - 199 mg/dL Calcium 8.8 8.5 - 10.3 mg/dL Protime-INR Collection Time: 10/21/24 5:17 AM Result Value Ref Range PT 25.7 (H) 9.7 - 13.0 sec INR 2.34 (H) 0.90 - 1.20 Differential, auto Collection Time: 10/21/24 5:17 AM Result Value Ref Range Neutrophil abs 3.63 1.50 - 6.50 K/cumm Imm gran abs 0.01 0.00 - 0.10 K/cumm Lymphocyte abs 0.62 (L) 0.80 - 3.30 K/cumm Monocyte abs 0.51 0.20 - 0.80 K/cumm Eosinophil abs 0.05 0.00 - 0.50 K/cumm Basophil abs 0.03 0.00 - 0.10 K/cumm Neutrophil pct 74.9 % Imm gran pct 0.2 % Lymphocyte pct 12.8 % Monocyte pct 10.5 % Eosinophil pct 1.0 % Basophil pct 0.6 % eGFR Collection Time: 10/21/24 5:17 AM Result Value Ref Range eGFR 28 (L) >=60 mL/min/1.73 m2 Recent Labs Lab Units 10/19/24 1233 CLARITY U Clear COLOR U Yellow KETONES UR Negative NITRITE UR Negative SPEC GRAV U 1.007 UROBILINOGEN UR mg/dL <2.0 CT Chest WO Contrast Result Date: 10/18/2024 Narrative: EXAMINATION: Computed tomography of the chest without intravenous contrast HISTORY: Abnormal chest radiograph. TECHNIQUE: Transaxial computed tomographic images of the chest were obtained without intravenous contrast according to the standard protocol. COMPARISON: Chest radiograph dated same day. FINDINGS: There is a moderately sized right pleural effusion with fluid in the right majorfissure and right upper, middle, and lower lobe consolidations most notable in the right lower lobe. Small left pleural effusion with left lower lobe atelectasis. Severe centrilobular emphysematous changes. Poststernotomy changes. Mild mediastinal lymphadenopathy with largest mediastinal node measur ing 1.1 cm in short axis dimension. Nodules in the left upper lobe, largest measuring approximately1.1 x 0.5 cm. Follow-up suggested. Main pulmonary [...] may represent pseudo-thickening from underdistention versus gastritis. Impression: 1. Moderately sized right pleural effusion with [...] Electronically signed by: Rajendra Oh II, D.O. ECG 12 lead Result Date: 10/18/2024 Narrative: Vent Rate: 80 bpm RR Interval: 749 msec RI Interval: 140 msec QRS Duration: 164 msec QT Interval: 377 msec QTC Interval: 412 msec P-R-T [place]: -52 - 226 - 226 degrees IMPRESSION: ELECTRONICVENTRICULAR PACEMAKER ST DEPRESSION, CONSIDER SUBENDOCARDIAL INJURY [0.1+ mV ST DEPRESSION] ABNORMAL ECG No change compared to prior EKG Electronically Signed By: Emilio Ratliff MD [facility] XR Chest 1 Vw Portable Result Date: 10/18/2024 Narrative: EXAMINATION: XR CHEST 1 VIEW DATE: 10/18/2024 11:20 AM INDICATION: Shortness of breath. COMPARISON: 02/23/2023. Impression: ICD leads are intact. Post sternotomy changes are noted. Cardiac mediastinal silhouettewithin normal limits. There is a small right pleural effusion. Opacities in the right lower lobe suggestive of pneumonia, increased from prior. Follow-up suggested to ensure resolution. No acute osseous abnormality. Electronically signed by: Rajendra Oh II, D.O. ASSESSMENT/PLAN CKD 3b CRS. CHF/dyspnea. R LL PNA. MBD. ICD status. RECOMMENDATIONS IV diuresis. CKD washburn. Overall improved. -10/20, BP low, start midodrine, IV ABX, decrease diuresis, CT scan kidneys. -10/21, urinary retention, ROSA worse, guerrero placed, will follow, CT scan to be reviewed. I can be reached at [phone] with any concerns. Thank you Luan Guillermo DO for the consult. Delvin Mendenhall MD [employer] [phone] * Georgina Grant PTA - 10/21/2024 10:19 AM CDT Physical Therapy Patient refused therapy at this time d/t pain. Patient's states that he would not be able to participate today and they were waiting for the doctor. RN stated prior to entry to room patient may not be able to participate * Shailesh Pabon MD - 10/21/2024 9:42 AM CDT Pulmonary Daily Progress Chief complaint/reason for consult: New O2 requirement, Pulmonary nodules, pulmonary hypertension . Interval History: On 4L, sats low 90s Afebrile No distress Presenting History: 84 y/o CM who presented to the ED on 10/18/24 with complaints of shortness of breath that had been worsening over the last week. He was reportedly satting 70% on room air when EMSarrived. 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 States he has been having increased BAH. Does have cough at times that is productive of clear sputum. Started smoking age 12 and quit in 1996, smoked up to 1.5 ppd for 44 years, giving a 66 pack year hx. He has been on amiodarone in the past but not for sometime. 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 No service. Has lived in the [place] his whole life. CT Chest 10/18/24: Very severe emphysematous changes, moderate right pleural effusion, Carries a hx of atrial fibrillation s/p multiple ablations, HFrEF, ischemic cardiomyopathy s/p BiVICD, CKD, CAD s/p CABG, Allergies: Allergies Allergen Reactions Trazodone Hcl Unknown Morphine Hydrocodone Unknown Lunesta [Eszopiclone] Other (See comments) Gave him crazy dreams Tramadol Nausea only Vicodin [Hydrocodone-Acetaminophen] Nausea only Medications: Scheduled Meds:ampicillin-sulbactam, 3 g, intravenous, Q12H THERESA aspirin, 81 mg, oral, Daily atenoloL, 50 mg, oral, Daily atorvastatin, 20 mg, oral, Nightly calcitRIOL, 0.25 mcg, oral, Daily clorazepate, 7.5 mg, oral, BID [Held by Provider] digoxin, 250 mcg, oral, Once per day on Thursday dofetilide, 125 mcg, oral, BID fenofibrate nanocrystallized, 145 mg, oral, Daily furosemide, 40 mg, intravenous, BID DIURETIC ipratropium-albuteroL, 3 mL, nebulization, Q4H While awake (RT) levothyroxine, 25 mcg, oral, Daily - 0600 midodrine, 10 mg, oral, TID AC pantoprazole DR, 40 mg, oral, Daily warfarin, 1 mg, oral, Once - 1800 Continuous Infusions: PRN Meds:. docusate sodium fluticasone propionate ondansetron ramelteon ROS Above review of system reviewed on 10/21/2024 Vitals: Vitals: 10/21/24 0005 10/21/24 0410 10/21/24 0810 10/21/24 0858 BP: 92/47 90/50 98/50 BP Location: Left arm Left arm Left arm Patient Position: HOB 30 degrees HOB 30 degrees HOB 30 degrees Pulse: 80 80 80 Resp: 18 18 18 Temp: 36.7 ??C (98.1 ??F) 36.9 ??C (98.4 ??F) 36.8 ??C (98.2 ??F) TempSrc: Oral Oral Oral SpO2: 93% 95% 90% 93% Weight: Height: Temp (24hrs), Av.8 ??C (98.2 ??F), Min:36.6 ??C (97.9 ??F), Max:36.9 ??C (98.4 ??F) FiO2 (%): [40 %] 40 % Intake/Output Summary (Last 24 hours) at 10/21/2024 0942 Last data filed at 10/21/2024 0410 Gross per 24 hour Intake -- Output 1050 ml Net -1050 ml Physical Exam Constitutional: General: He is not in acute distress. Appearance: He is well-developed. HENT: Head: Normocephalic and atraumatic. Eyes: Conjunctiva/sclera: Conjunctivae normal. Cardiovascular: Rate and Rhythm: Normal rate and regular rhythm. Heart sounds: No murmur heard. Pulmonary: Effort: Pulmonary effort is normal. No respiratory distress. Breath sounds: Normal breath sounds. No stridor. No wheezing or rales. Abdominal: General: Bowel sounds are normal. Palpations: Abdomen is soft. Musculoskeletal: Right lower leg: No edema. Left lower leg: No edema. Skin: General: Skin is warm and dry. Neurological: Mental Status: He is alert. Lab/Radiology/Diagnostic Review: Labs: Recent Labs Lab Units 10/21/24 0517 10/20/24 0638 10/19/24 0512 WBC K/cumm 4.85 4.94 5.02 HEMOGLOBIN g/dL 14.6 14.2 15.5 HEMATOCRIT % 45.1 43.3 48.5 PLATELETS K/cumm 108* 106* 125* NEUTROS PCT % 74.9 71.9 73.3 LYMPHS PCT % 12.8 14.6 14.5 MONOS PCT % 10.5 12.3 9.8 EOS PCT % 1.0 0.6 1.4 Recent Labs Lab Units 10/21/24 0517 10/20/24 0638 10/19/24 0512 10/18/24 1041 SODIUM mmol/L 133* 133* 133* 132* POTASSIUM PLASMA mmol/L 4.5 4.4 4.8 5.0* CHLORIDE mmol/L 95* 96* 96* 97 CO2 mmol/L ANIONGAP mmol/L 10 10 7 7 GLUCOSE mg/dL 94 106 87 90 BUN SERUM mg/dL 48* 46* 35* 29* CREATININE mg/dL 2.23* 2.43* 1.83* 1.62* CALCIUM mg/dL 8.8 8.8 9.2 9.6 ALBUMIN g/dL -- -- -- 3.5 ALK PHOS Units/L -- -- -- 52 ALT Units/L -- -- -- 15 AST Units/L -- -- -- 41 BILIRUBIN TOTAL mg/dL -- -- -- 2.1* Imaging: CT abd 10/21/24: similar b effusions, R>L w RLL consolidation Other diagnostic tests: Echo 10/20/24: EF 37%, LVDD, RV volume overload, RVSP 60 I have personally reviewed above laboratory findings, chest imaging, and diagnostic tests 10/21/2024 Assessment and Plan: Acute hypoxic respiratory insufficiency Severe emphysema RLL cavitary lesion: pneumonia vs malignancy vs bullous disease B effusions, R>L, likely due to CHF, parapneumonic also possible Afib CHF CKD CAD w hx CABG Recs: - Wean supplemental O2 for SpO2 88-92% - Nebs TID - Unasyn day 3, completed azithromycin - If pleural effusion increases in size would need diagnostic thoracentesis (INR 2.34 today, on coumadin) - Will need repeat imaging in 4-6 weeks otherwise * Deborah Mendiola, [facility] - 10/21/2024 8:51 AM CDT Pharmacokinetic Consult - Anticoagulation Dosing Ian Monsalve is a 84 y.o. male who has been consulted for pharmacy warfarin dosing and monitoring. Current Hematologic Labs INR Date Value Ref Range Status 10/21/2024 2.34 (H) 0.90 - 1.20 Final Comment: Interpretive data Oral anticoagulant therapeutic ranges: Venous thromboembolism prophylaxis or treatment: 2.0-3.0 CARDIOLOGY Standard range: 2.0-3.0 High-intensity range: 2.5-3.5 Refer to indication-specific guidelines for appropriate target ranges for prosthetic heart valve replacement. Current interpretive data was last revised on 2019. 10/20/2024 3.12 (H) 0.90 - 1.20 Final Comment: Interpretive data Oral anticoagulant therapeutic ranges: Venous thromboembolism prophylaxis or treatment: 2.0-3.0 CARDIOLOGY Standard range: 2.0-3.0 High-intensity range: 2.5-3.5 Refer to indication-specific guidelines for appropriate target ranges for prosthetic heart valve replacement. Current interpretive data was last revised on 2019. 10/19/2024 3.14 (H) 0.90 - 1.20 Final Comment: Interpretive data Oral anticoagulant therapeutic ranges: Venous thromboembolism prophylaxis or treatment: 2.0-3.0 CARDIOLOGY Standard range: 2.0-3.0 High-intensity range: 2.5-3.5 Refer to indication-specific guidelines for appropriate target ranges for prosthetic heart valve replacement. Current interpretive data was last revised on 2019. Hgb Date Value Ref Range Status 10/21/2024 14.6 13.0 - 17.5 g/dL Final Hct Date Value Ref Range Status 10/21/2024 45.1 38.9 - 50.3 % Final Plt Date Value Ref Range Status 10/21/2024 108 (L) 150 - 400 K/cumm Final No results found for: PTT Assessment Patient was admitted on warfarin with a dose of 2 mg on Thursday and 1 mg all other days (Thu to Thu). Patient is on warfarin for an indication of atrial fibrillation. Goal INR is 2-3. Potential interacting medications: unasyn (could potentially increase INR) Plan Date INR Dose given Comments 10/18 2mg Patient already took dose at home. Daily INR ordered 10/19 3.14 1mg Slightly above goal will give home dose today and may need to decrease for further doses 10/20 3.12 1mg 10/21 2.34 1mg Will continue to follow patient's clinical progress daily. Deborah Mendiola RPh * Luan Guillermo, - 10/21/2024 8:51 AM CDT Daily Progress Subjective Chief complaint of Dyspnea, abdominal pain/dysuria. Interval History: Patient Seen and examined at bedside. Appears mildly uncomfortable this morning. Reports abdominal discomfort that started since yesterday. Remains on 4L NC at bedside. Spouse present - attempted to answer questions and address concerns. Objective Physical Exam: General Appearance: Alert, cooperative, no distress, appears stated age, well developed, well nourished Head: Normocephalic, without obvious abnormality, atraumatic Eyes: Conjunctiva/corneas clear, EOM's intact, both eyes, anicteric Ears: Normal external ear canals, both ears Nose: Nares normal, septum midline, mucosa normal, no drainage Throat: Lips, mucosa, and tongue normal; mucous membranes moist Neck: Supple Lungs: Clear to auscultation bilaterally, respirations unlabored Cardiovascular: Regular rate and rhythm Abdomen: Soft, non-tender, bowel sounds decr, non-distended Extremities: Extremities normal, atraumatic, no cyanosis, +2 LE edema Skin: Skin color, texture, turgor normal, no rashes Psychosocial: Normal affect and mood Lab/Radiology/Diagnostic Review: Laboratory review: Lab results in the last 24 hours: Recent Results (from the past 24 hours) Magnesium Collection Time: 10/21/24 5:17 AM Result Value Ref Range Magnesium 2.1 1.4 - 2.5 mg/dL CBC with auto differential Collection Time: 10/21/24 5:17 AM Result Value Ref Range WBC 4.85 3.80 - 9.90 K/cumm Hgb 14.6 13.0 - 17.5 g/dL Hct 45.1 38.9 - 50.3 % Plt 108 (L) 150 - 400 K/cumm MPV 11.2 9.1 - 12.3 fL RBC 4.73 4.30 - 5.80 M/cumm MCV 95.3 81.3 - 96.4 fL MCH 30.9 27.1 - 33.3 pg MCHC 32.4 32.3 - 35.7 g/dL RDW CV 16.8 (H) 11.1 - 14.9 % RDW SD 58.7 (H) 35.7 - 48.1 fL NRBC abs 0.00 0.00 - 0.01 K/cumm Basic metabolic panel Collection Time: 10/21/24 5:17 AM Result Value Ref Range Sodium 133 (L) 135 - 145 mmol/L Potassium, pl 4.5 3.3 - 4.9 mmol/L Chloride 95 (L) 97 - 110 mmol/L CO2 28 22 - 32 mmol/L Anion gap 10 2 - 15 mmol/L BUN 48 (H) 6 - 25 mg/dL Creatinine 2.23 (H) 0.80 - 1.30 mg/dL Glucose 94 70 - 199 mg/dL Calcium 8.8 8.5 - 10.3 mg/dL Protime-INR Collection Time: 10/21/24 5:17 AM Result Value Ref Range PT 25.7 (H) 9.7 - 13.0 sec INR 2.34 (H) 0.90 - 1.20 Differential, auto Collection Time: 10/21/24 5:17 AM Result Value Ref Range Neutrophil abs 3.63 1.50 - 6.50 K/cumm Imm gran abs 0.01 0.00 - 0.10 K/cumm Lymphocyte abs 0.62 (L) 0.80 - 3.30 K/cumm Monocyte abs 0.51 0.20 - 0.80 K/cumm Eosinophil abs 0.05 0.00 - 0.50 K/cumm Basophil abs 0.03 0.00 - 0.10 K/cumm Neutrophil pct 74.9 % Imm gran pct 0.2 % Lymphocyte pct 12.8 % Monocyte pct 10.5 % Eosinophil pct 1.0 % Basophil pct 0.6 % eGFR Collection Time: 10/21/24 5:17 AM Result Value Ref Range eGFR 28 (L) >=60 mL/min/1.73 m2 Current Facility-Administered Medications Medication Dose Route Frequency Provider Last Rate Last Admin ampicillin-sulbactam (UNASYN) 3 g in sodium chloride 0.9% 100 mL IVPB 3 g intravenous Q12H Radha Day MD 220 mL/hr at 10/21/24 0808 3 g at 10/21/24 0808 aspirin enteric coated tablet 81 mg 81 mg oral Daily Namrata Spencer NP 81 mg at 10/21/24 0808 atenoloL (TENORMIN) tablet 50 mg 50 mg oral Daily Namrata Spencer NP 50 mg at 10/19/24 08 atorvastatin (LIPITOR) tablet 20 mg 20 mg oral Nightly Namrata Spencer NP 20 mg at 10/20/242117 calcitRIOL (ROCALTROL) capsule 0.25 mcg 0.25 mcg oral Daily Namrata Spencer NP 0.25 mcg at 10/21/24 08 clorazepate (TRANXENE) tablet 7.5 mg 7.5 mg oral BID PRN Luan Guillermo DO [Held by Provider] digoxin (LANOXIN) tablet 250 mcg 250 mcg oral Once per day on Thursday Namrata Spencer NP dofetilide (TIKOSYN) capsule 125 mcg 125 mcg oral BID Namrata Spencer NP 125 mcg at 10/21/24 08 fenofibrate nanocrystallized (TRICOR) tablet 145 mg 145 mg oral Daily Namrata Spencer NP145 mg at 10/21/24 08 fluticasone propionate (FLONASE) 50 mcg/actuation nasal spray 2 spray 2 spray each nostril Daily PRN Namrata Spencer NP [START ON 10/22/2024] furosemide (LASIX) 10 mg/mL injection 40 mg 40 mg intravenous Daily Maribell Rob NP ipratropium-albuteroL (DUO-NEB) 0.5-2.5 mg/3 mL nebulizer solution 3 mL 3 mL nebulization Q4H [place]ake (RT) Namrata Spencer NP 3 mL at 10/21/24 1632 levothyroxine (SYNTHROID) tablet 25 mcg 25 mcg oral Daily - 0600 Namrata Spencer NP 25 mcg at 10/21/24 0510 midodrine (PROAMATINE) tablet 10 mg 10 mg oral TID AC Delvin Mendenhall MD 10 mg at 10/21/24 1205 ondansetron (ZOFRAN) injection 4 mg 4 mg intravenous Q6H PRN Namrata Spencer NP pantoprazole DR (PROTONIX) extended release tablet 40 mg 40 mg oral Daily Carla Jean MD 40 mg at 10/21/24 0808 polyethylene glycol (MIRALAX) packet 17 g 17 g oral Daily Luan Guillermo, 17 g at 206 ramelteon (ROZEREM) tablet 8 mg 8 mg oral Nightly PRN Namrata Spencer NP 8 mg at 10/18/242041 senna-docusate (PERICOLACE) 8.6-50 mg per tablet 1 tablet 1 tablet oral BID Luan Guillermo, DO 1 tablet at 10/21/24 1206 warfarin (COUMADIN) tablet 1 mg 1 mg oral Once - 1800 Luan Guillermo DO Vitals: 24hr Min/Max: Temp Min: 36.6 ??C (97.9 ??F) Max: 36.9 ??C (98.4 ??F) Pulse Min: 80 Max: 80 BP Min: 80/58 Max: 101/64 Resp Min: 16 Max: 18 SpO2 Min: 86 % Max: 97 % Most Recent : Vitals: 10/21/24 0810 BP: 98/50 Pulse: 80 Resp: 18 Temp: 36.8 ??C (98.2 ??F) SpO2: 90% I/O last 2 completed shifts: In: - Out: 1250 [Urine:1250] No intake/output data recorded. Assessment/Plan Principal Problem: Acute congestive heart failure, unspecified heart failure type (HCC) Acute hypoxic respiratory failure on admission. Differential includes CHF exacerbation, pneumonia. Currently on 4L NC - titrate as able Congestive heart failure exacerbation on admission. BNP 8636. 2D echo performed- EF 37%, Mod-Severepulmonary htn, Diastolic dysfunction present. On IV Lasix daily - monitor UOP. Cardiology service consulted. Initiate GDMT as appropriate. Moderately sized right pleural effusion with consolidations in the right upper, right lower, and right middle lobes suggestive of multifocal pneumonia, on admission CT. Respiratory PCR negative. Blood cultures NGTD. Strep pneumoniae and Legionella antigens are negative. Was on azithromycin, Rocephin starting on 10/18/2024; on 10/19/2024 Rocephin was changed to Unasyn - continue unasyn therapy. Pulmonology following Multiple left upper lobe pulmonary nodules largest measuring 1.1 cm, on admission CT. Dilated main pulmonary artery suggestive of pulmonary arterial hypertension, on admission CT. Severe centrilobular emphysematous changes, on admission CT. Nonspecific mild gastric wall thickening may represent pseudo-thickening from underdistention versus gastritis, on admission CT. On PPI. Atrial fibrillation, currently paced. On digoxin, will hold due to elevated level. On Tikosyn. On Coumadin, daily INRs. Hyperlipidemia. On statin, Tricor. Hypothyroidism. On Synthroid. CAD. S/p coronary artery bypass graft x two - left internal mammary artery to the left anterior descending, left radial artery to the posterior descending artery, on 02/24/1997. History of VT, status post ablation on 12/31/2015, 04/08/2016 EP study. Hypotension - Reportedly having low blood pressures today - Try to avoid IVF in setting of volume overload. Trial midodrine 5 mg TID Right Kidney Mass - US retroperitoneum - Right kidney mass up to 1.4 cm - MRI recommended, patient with defibrillator - not able to obtain an MRI. Will discuss with nephrology regarding recommendations for further evaluation. Urine retention - reported abdominal pain - CT imaging performed - No acute findings noted. On review - bladder looked distended. Bladder scan done with 600 cc - straight cath done. Q6 hour bladder scans - if additional straight cath needed, recommend guerrero placement. Constipation -started on bowel regimen Hyponatremia of 133, follow. Slight hyperkalemia, resolved. ROSA on CKD > Progressive worsening over the last 3 days, continue to monitor. Avoid nephrotoxic agents as able. Renal function unchanged from yesterday. Nephrology following - appreciate recommendations Slight thrombocytopenia of 108, follow. Elevated digoxin level of 1.3, follow. Troponin trend of 51, 54, 51, 51, with delta of 3, 0, 0; nonspecific. Prophylaxis. Protonix, Coumadin. * Delvin Mendenhall MD - 10/20/2024 8:26 PM CDT Nephrology Progress Note [facility] SUBJECTIVE 10/20 Doing better. Ambulated with assistance. Renal mass noted. 10/19 Some better. Cr 2.3 CKD washburn ongoing. IV ABX,. Has PNA and CHF. OBJECTIVE Vitals: Vitals: 10/20/24 1423 10/20/24 1531 10/20/24 1600 10/20/24 1642 BP: (!) 80/58 98/62 BP Location: Right arm Patient Position: Lying Pulse: 80 80 80 Resp: 16 18 Temp: TempSrc: SpO2: 94% 97% (!) 86% Weight: Height: Intake/Output Summary (Last 24 hours) at 10/20/20242025 Last data filed at 10/20/2024 1710 Gross per 24 hour Intake -- Output 2200 ml Net -2200 ml REVIEW OF SYSTEMS Review of Systems Constitutional: Negative. HENT: Negative. Eyes: Negative. Respiratory: Negative. Cardiovascular: Negative. Gastrointestinal: Negative. Genitourinary: Negative. Musculoskeletal: Negative. Skin: Negative. Allergic/Immunologic: Negative. Hematological: Negative. All other systems reviewed and are negative. PHYSICAL EXAM Physical Exam Constitutional: Appears well-developed. HENT: wnl Head: Normocephalic. Eyes: Pupils are equal, round, and reactive to light. Neck: Normal range of motion. Neck supple. Cardiovascular: Normal rate. Pulmonary/Chest: Effort normal and breath sounds normal. Abdominal: Soft. Musculoskeletal: Normal range of motion. Neurological: Alert, oriented. Skin: Skin is warm. Nursing note and vitals reviewed. MEDICATIONS Current Facility-Administered Medications: ampicillin-sulbactam (UNASYN) 3 g in sodium chloride 0.9% 100 mL IVPB, 3 g, intravenous, Q12H Ifeanyi CARDENAS Jessica Houston, MD, Last Rate: 220 mL/hr at 10/20/24902, 3 g at 10/20/24902 aspirin enteric coated tablet 81 mg, 81 mg, oral, Daily, Namrata Spencer NP, 81 mg at 10/20/24899 atenoloL (TENORMIN) tablet 50 mg, 50 mg, oral, Daily, Namrata Spencer NP, 50 mg at 10/19/24832 atorvastatin (LIPITOR) tablet 20 mg, 20 mg, oral, Nightly, Namrata Spencer NP, 20 mg at 10/19/242122 calcitRIOL (ROCALTROL) capsule 0.25 mcg, 0.25 mcg, oral, Daily, Namrata Spencer NP, 0.25mcg at 10/20/24899 clorazepate (TRANXENE) tablet 7.5 mg, 7.5 mg, oral, BID, Namrata Spencer NP [Held by Provider] digoxin (LANOXIN) tablet 250 mcg, 250 mcg, oral, Once per day on Thursday, Namrata Spencer NP docusate sodium (COLACE) capsule 100 mg, 100 mg, oral, BID PRN, Namrata Spencer NP, 100 mg at 10/20/24904 dofetilide (TIKOSYN) capsule 125 mcg, 125 mcg, oral, BID, Namrata Spencer NP, 125 mcg at10/20/24899 fenofibrate nanocrystallized (TRICOR) tablet 145 mg, 145 mg, oral, Daily, Namrata Spencer NP, 145 mg at 10/20/24899 fluticasone propionate (FLONASE) 50 mcg/actuation nasal spray 2 spray, 2 spray, each nostril, DailyPRN, Namrata Spencer NP furosemide (LASIX) 10 mg/mL injection 40 mg, 40 mg, intravenous, BID DIURETIC, Delvin Mendenhall MD,40 mg at 10/19/24 1544 ipratropium-albuteroL (DUO-NEB) 0.5-2.5 mg/3 mL nebulizer solution 3 mL, 3 mL, nebulization, Q4H While awake (RT), Namrata Spencer NP, 3 mL at 10/20/24 1642 levothyroxine (SYNTHROID) tablet 25 mcg, 25 mcg, oral, Daily - 0600, Namrata Spencer NP,25 mcg at 10/20/24 0445 midodrine (PROAMATINE) tablet 5 mg, 5 mg, oral, TID AC, Luan Guillermo, , 5 mg at 10/20/24 1707 ondansetron (ZOFRAN) injection 4 mg, 4 mg, intravenous, Q6H PRN, Namrata Spencer NP pantoprazole DR (PROTONIX) extended release tablet 40 mg, 40 mg, oral, Daily, Carla Jean MD,40 mg at 10/20/24 0900 ramelteon (ROZEREM) tablet 8 mg, 8 mg, oral, Nightly PRN, Namrata Spencer NP, 8 mg at 10/18/24 204 Lab/Radiology/Diagnostic Review: Recent Results (from the past 24 hours) Magnesium Collection Time: 10/20/24 6:38 AM Result Value Ref Range Magnesium 2.0 1.4 - 2.5 mg/dL CBC with auto differential Collection Time: 10/20/24 6:38 AM Result Value Ref Range WBC 4.94 3.80 - 9.90 K/cumm Hgb 14.2 13.0 - 17.5 g/dL Hct 43.3 38.9 - 50.3 % Plt 106 (L) 150 - 400 K/cumm MPV 11.0 9.1 - 12.3 fL RBC 4.58 4.30 - 5.80 M/cumm MCV 94.5 81.3 - 96.4 fL MCH 31.0 27.1 - 33.3 pg MCHC 32.8 32.3 - 35.7 g/dL RDW CV 16.8 (H) 11.1 - 14.9 % RDW SD 58.4 (H) 35.7 - 48.1 fL NRBC abs 0.00 0.00 - 0.01 K/cumm Basic metabolic panel Collection Time: 10/20/24 6:38 AM Result Value Ref Range Sodium 133 (L) 135 - 145 mmol/L Potassium, pl 4.4 3.3 - 4.9 mmol/L Chloride 96 (L) 97 - 110 mmol/L CO2 30 22 - 32 mmol/L Anion gap 10 2 - 15 mmol/L BUN 46 (H) 6 - 25 mg/dL Creatinine 2.43 (H) 0.80 - 1.30 mg/dL Glucose 106 70 - 199 mg/dL Calcium 8.8 8.5 - 10.3 mg/dL Protime-INR Collection Time: 10/20/24 6:38 AM Result Value Ref Range PT 34.5 (H) 9.7 - 13.0 sec INR 3.12 (H) 0.90 - 1.20 Digoxin level Collection Time: 10/20/24 6:38 AM Result Value Ref Range Digoxin 0.8 0.5 - 1.2 ng/mL Differential, auto Collection Time: 10/20/24 6:38 AM Result Value Ref Range Neutrophil abs 3.55 1.50 - 6.50 K/cumm Imm gran abs 0.01 0.00 - 0.10 K/cumm Lymphocyte abs 0.72 (L) 0.80 - 3.30 K/cumm Monocyte abs 0.61 0.20 - 0.80 K/cumm Eosinophil abs 0.03 0.00 - 0.50 K/cumm Basophil abs 0.02 0.00 - 0.10 K/cumm Neutrophil pct 71.9 % Imm gran pct 0.2 % Lymphocyte pct 14.6 % Monocyte pct 12.3 % Eosinophil pct 0.6 % Basophil pct 0.4 % eGFR Collection Time: 10/20/24 6:38 AM Result Value Ref Range eGFR 26 (L) >=60 mL/min/1.73 m2 Recent Labs Lab Units 10/19/24 1233 CLARITY U Clear COLOR U Yellow KETONES UR Negative NITRITE UR Negative SPEC GRAV U 1.007 UROBILINOGEN UR mg/dL <2.0 CT Chest WO Contrast Result Date: 10/18/2024 Narrative: EXAMINATION: Computed tomography of the chest without intravenous contrast HISTORY: Abnormal chest radiograph. TECHNIQUE: Transaxial computed tomographic images of the chest were obtained without intravenous contrast according to the standard protocol. COMPARISON: Chest radiograph dated same day. FINDINGS: There is a moderately sized right pleural effusion with fluid in the right majorfissure and right upper, middle, and lower lobe consolidations most notable in the right lower lobe. Small left pleural effusion with left lower lobe atelectasis. Severe centrilobular emphysematous changes. Poststernotomy changes. Mild mediastinal lymphadenopathy with largest mediastinal node measur ing 1.1 cm in short axis dimension. Nodules in the left upper lobe, largest measuring approximately1.1 x 0.5 cm. Follow-up suggested. Main pulmonary [...] may represent pseudo-thickening from underdistention versus gastritis. Impression: 1. Moderately sized right pleural effusion with [...] Electronically signed by: Rajendra Oh II, D.O. ECG 12 lead Result Date: 10/18/2024 Narrative: Vent Rate: 80 bpm RR Interval: 749 msec RI Interval: 140 msec QRS Duration: 164 msec QT Interval: 377 msec QTC Interval: 412 msec P-R-T [place]: -52 - 226 - 226 degrees IMPRESSION: ELECTRONICVENTRICULAR PACEMAKER ST DEPRESSION, CONSIDER SUBENDOCARDIAL INJURY [0.1+ mV ST DEPRESSION] ABNORMAL ECG No change compared to prior EKG Electronically Signed By: Emilio Ratliff MD [facility] XR Chest 1 Vw Portable Result Date: 10/18/2024 Narrative: EXAMINATION: XR CHEST 1 VIEW DATE: 10/18/2024 11:20 AM INDICATION: Shortness of breath. COMPARISON: 02/23/2023. Impression: ICD leads are intact. Post sternotomy changes are noted. Cardiac mediastinal silhouettewithin normal limits. There is a small right pleural effusion. Opacities in the right lower lobe suggestive of pneumonia, increased from prior. Follow-up suggested to ensure resolution. No acute osseous abnormality. Electronically signed by: Rajendra Oh II, D.O. ASSESSMENT/PLAN CKD 3b CRS. CHF/dyspnea. R LL PNA. MBD. ICD status. RECOMMENDATIONS IV diuresis. CKD washburn. Overall improved. -10/20, BP low, start midodrine, IV ABX, decrease diuresis, CT scan kidneys. I can be reached at [phone] with any concerns. Thank you Luan Guillermo DO for the consult. Delvin Mendenhall MD [employer] [phone] * Jarret Suggs MD - 10/20/2024 3:14 PM CDT Images from the original note were not included. Pulmonary Daily Progress Chief complaint/reason for consult: New O2 requirement, Pulmonary nodules, pulmonary hypertension . Interval History: afebrile with normal wbc, stable hemodynamics Cultures non contributory Continues on unasyn day 2 Presenting History: Mr. Monsalve is an 84 y/o CM who presented to the ED on 10/18/24 with complaints ofshortness of breath that had been worsening over the last week. He was reportedly satting 70% on room air when EMS arrived. 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 States he has been having increased BAH. Does have cough at times that is productive of clear sputum. Started smoking age 12 and quit in 1996, smoked up to 1.5 ppd for 44 years, giving a 66 pack year hx. He has been on amiodarone in the past but not for sometime. 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 No service. Has lived in the [place] his whole life. CT Chest 10/18/24: Very severe emphysematous changes, moderate right pleural effusion, Carries a hx of atrial fibrillation s/p multiple ablations, HFrEF, ischemic cardiomyopathy s/p BiVICD, CKD, CAD s/p CABG, Allergies: Allergies Allergen Reactions Trazodone Hcl Unknown Morphine Hydrocodone Unknown Lunesta [Eszopiclone] Other (See comments) Gave him crazy dreams Tramadol Nausea only Vicodin [Hydrocodone-Acetaminophen] Nausea only Medications: Scheduled Meds:ampicillin-sulbactam, 3 g, intravenous, Q12H THERESA aspirin, 81 mg, oral, Daily atenoloL, 50 mg, oral, Daily atorvastatin, 20 mg, oral, Nightly calcitRIOL, 0.25 mcg, oral, Daily clorazepate, 7.5 mg, oral, BID [Held by Provider] digoxin, 250 mcg, oral, Once per day on Thursday dofetilide, 125 mcg, oral, BID fenofibrate nanocrystallized, 145 mg, oral, Daily furosemide, 40 mg, intravenous, BID DIURETIC ipratropium-albuteroL, 3 mL, nebulization, Q4H While awake (RT) levothyroxine, 25 mcg, oral, Daily - [address], 40 mg, oral, Daily warfarin, 1 mg, oral, Once - 1800 Continuous Infusions: PRN Meds:. docusate sodium fluticasone propionate ondansetron ramelteon ROS Above review of system reviewed on 10/20/2024 Vitals: Vitals: 10/20/24 0756 10/20/24 0830 10/20/24 1001 10/20/24 1423 BP: (!) 87/58 90/55 BP Location: Right arm Right arm Patient Position: Lying Pulse: 79 80 80 Resp: 16 Temp: 36.2 ??C (97.2 ??F) TempSrc: Oral SpO2: 90% (!) 88% 94% Weight: Height: Temp (24hrs), Av.6 ??C (97.8 ??F), Min:36.2 ??C (97.2 ??F), Max:36.7 ??C (98.1 ??F) FiO2 (%): [40 %] 40 % Intake/Output Summary (Last 24 hours) at 10/20/2024 1514 Last data filed at 10/20/2024 0756 Gross per 24 hour Intake -- Output 1600 ml Net -1600 ml Physical Exam Lab/Radiology/Diagnostic Review: Labs: Recent Labs Lab Units 10/20/24 0638 10/19/24 0512 10/18/24 1041 WBC K/cumm 4.94 5.02 4.75 HEMOGLOBIN g/dL 14.2 15.5 15.5 HEMATOCRIT % 43.3 48.5 47.4 PLATELETS K/cumm 106* 125* 132* NEUTROS PCT % 71.9 73.3 71.4 LYMPHS PCT % 14.6 14.5 18.1 MONOS PCT % 12.3 9.8 9.3 EOS PCT % 0.6 1.4 0.6 Recent Labs Lab Units 10/20/24 0638 10/19/24 0512 10/18/24 1041 SODIUM mmol/L 133* 133* 132* POTASSIUM PLASMA mmol/L 4.4 4.8 5.0* CHLORIDE mmol/L 96* 96* 97 CO2 mmol/L 30 30 28 ANIONGAP mmol/L 10 7 7 GLUCOSE mg/dL 106 87 90 BUN SERUM mg/dL 46* 35* 29* CREATININE mg/dL 2.43* 1.83* 1.62* CALCIUM mg/dL 8.8 9.2 9.6 ALBUMIN g/dL -- -- 3.5 ALK PHOS Units/L -- -- 52 ALT Units/L -- -- 15 AST Units/L -- -- 41 BILIRUBIN TOTAL mg/dL -- -- 2.1* Expand All Collapse All Show:Clear all [x]Written[x]Templated[x]Copied Added by: [x]Radha Suggs MD []Esdras for details Pulmonary Consult Reason for Consult: New O2 requirement, Pulmonary nodules, pulmonary hypertension afebrile, normal wbc HPI: Mr. Monsalve is an 84 y/o CM who presented to the ED on 10/18/24 with complaints of shortness of breath that had been worsening over the last week. He was reportedly satting 70% on room air when EMSarrived. 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 States he has been having increased BAH. Does have cough at times that is productive of clear sputum. Started smoking age 12 and quit in 1996, smoked up to 1.5 ppd for 44 years, giving a 66 pack year hx. He has been on amiodarone in the past but not for sometime. 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 No service. Has lived in the [place] his whole life. CT Chest 10/18/24: Very severe emphysematous changes, moderate right pleural effusion, Carries a hx of atrial fibrillation s/p multiple ablations, HFrEF, ischemic cardiomyopathy s/p BiVICD, CKD, CAD s/p CABG, Past Medical History No past medical history on file. Past Surgical History No past surgical history on file. Prescriptions Prior to Admission Medications Prior to Admission Medication Sig Dispense Refill Last Dose/Taking aspirin 81 mg enteric coated tablet Take 1 tablet (81 mg total) by mouth daily 10/18/2024 Morning atenoloL (TENORMIN) 50 mg tablet Take 1 tablet (50 mg total) by mouth daily 10/17/2024 atorvastatin (LIPITOR) 20 mg tablet Take 1 tablet (20 mg total) by mouth nightly 10/17/2024 Bedtime calcitRIOL (ROCALTROL) 0.25 mcg capsule Take 1 capsule (0.25 mcg total) by mouth daily 10/18/2024 Morning clorazepate (TRANXENE) 15 mg tablet Take 0.5 tablets (7.5 mg total) by mouth 2 (two) times a day 10/18/2024 Morning digoxin (LANOXIN) 250 mcg (0.25 mg) tablet Take 1 tablet (250 mcg total) by mouth 3 (three) times aweek on Mon, Wed, Fri 10/17/2024 ergocalciferol (VITAMIN D) 50,000 unit capsule Take 1 capsule (50,000 Units total) by mouth once a week on Sat Past Week fenofibrate nanocrystallized (TRICOR) 145 mg tablet Take 1 tablet (145 mg total) by mouth daily 10/17/2024 fluticasone propionate (Flonase Allergy Relief) 50 mcg/actuation nasal spray Administer 2 sprays into each nostril daily as needed for rhinitis or allergies Past Week levothyroxine (SYNTHROID) 25 mcg tablet Take 1 tablet (25 mcg total) 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 10/18/2024 Morning Tikosyn 125 mcg capsule Take 1 capsule (125 mcg total) by mouth 2 (two) times a day 10/18/2024 Morning warfarin (COUMADIN) 2 mg tablet Take 1 tablet (2 mg total) by mouth once a week on Tuesdays10/18/2024 Morning warfarin (COUMADIN) 2 mg tablet Take 0.5 tablets (1 mg total) by mouth 6 (six) times a week from Thursday to Thursday10/17/2024 Morning Scheduled Meds: Scheduled Medications aspirin, 81 mg, oral, Daily atenoloL, 50 mg, oral, Daily atorvastatin, 20 mg, oral, Nightly azithromycin, 500 mg, intravenous, Q24H THERESA calcitRIOL, 0.25 mcg, oral, Daily cefTRIAXone, 1,000 mg, intravenous, Q24H THERESA clorazepate, 7.5 mg, oral, BID digoxin, 250 mcg, oral, Once per day on Thursday dofetilide, 125 mcg, oral, BID fenofibrate nanocrystallized, 145 mg, oral, Daily furosemide, 20 mg, intravenous, BID DIURETIC ipratropium-albuteroL, 3 mL, nebulization, Q4H While awake (RT) levothyroxine, 25 mcg, oral, Daily - 0600 pantoprazole, 40 mg, intravenous, Q24H THERESA Continuous Infusions: Infusion Meds PRN Meds:. PRN Medications docusate sodium fluticasone propionate ondansetron ramelteon Allergies Allergies Allergen Reactions Trazodone Hcl Unknown Morphine Hydrocodone Unknown Lunesta [Eszopiclone] Other (See comments) Gave him crazy dreams Tramadol Nausea only Vicodin [Hydrocodone-Acetaminophen] Nausea only Social History Social History Tobacco Use Smoking status: Former Current packs/day: 0.00 Types: Cigarettes Start date: 1955 Quit date: 1997 Years since quittin.4 Passive exposure: Past Smokeless tobacco: Never Substance and Sexual Activity Drug use: Not on file Sexual activity: Not on file Alcohol Use: Unknown (02/23/2023) AUDIT-C Frequency of Alcohol Consumption: Not on file Average Number of Drinks: Patient does not drink Frequency of Binge Drinking: Not on file Family History No family history on file. Review of Systems Constitutional: Negative for chills and fever. HENT: Negative for congestion, hearing loss, nosebleeds and sore throat. Eyes: Negative for blurred vision and pain. Respiratory: Positive for cough, sputum production and shortness of breath. Negative for hemoptysisand wheezing. Cardiovascular: Negative for chest pain, palpitations and leg swelling. Gastrointestinal: Negative for constipation, diarrhea, nausea and vomiting. Genitourinary: Negative for dysuria and hematuria. Musculoskeletal: Negative for joint pain and myalgias. Skin: Negative for itching and rash. Neurological: Negative for seizures and headaches. Endo/Heme/Allergies: Negative for environmental allergies and polydipsia. Psychiatric/Behavioral: Negative for depression and memory loss. Above review of system reviewed on 10/19/2024 Vitals: Vitals Vitals: 10/18/24 1730 10/18/24 2028 10/18/24 2147 10/19/24 0512 BP: 100/59 95/47 BP Location: Left arm Patient Position: Pulse: 79 80 Resp: 18 18 Temp: 36.9 ??C (98.4 ??F) 36.7 ??C (98.1 ??F) TempSrc: Oral SpO2: 94% 93% 93% Weight: Height: 170.2 cm (5' 7.01) Temp (24hrs), Av.7 ??C (98 ??F), Min:36.4 ??C (97.6 ??F), Max:36.9 ??C (98.4 ??F) Oxygen Therapy SpO2: 93 % O2 Therapy: Supplemental oxygen O2 Del Method: Nasal cannula O2 Flow Rate (L/min): 3 L/min . Intake/Output Summary (Last 24 hours) at 10/19/2024 0650 Last data filed at 10/19/2024 0600 Gross per 24 hour Intake 100 ml Output 2475 ml Net -2375 ml Physical Exam Vitals and nursing note reviewed. Constitutional: General: He is not in acute distress. Appearance: He is well-developed. HENT: Head: Normocephalic and atraumatic. Comments: Hard of hearing Nose: Nose normal. Eyes: General: No scleral icterus. Conjunctiva/sclera: Conjunctivae normal. Neck: Thyroid: No thyromegaly. Trachea: No tracheal deviation. Cardiovascular: Rate and Rhythm: Normal rate and regular rhythm. Heart sounds: No murmur heard. No friction rub. Pulmonary: Effort: Pulmonary effort is normal. No accessory muscle usage or respiratory distress. Breath sounds: No stridor. Decreased breath sounds present. No wheezing or rales. Chest: Chest wall: No tenderness. Abdominal: General: Bowel sounds are normal. There is no distension. Palpations: Abdomen is soft. Tenderness: There is no abdominal tenderness. Musculoskeletal: General: No tenderness. Cervical back: Normal range of motion. Skin: General: Skin is warm and dry. Neurological: Mental Status: He is alert and oriented to person, place, and time. Psychiatric: Behavior: Behavior normal. Lab/Radiology/Diagnostic Review: Labs: Recent Labs Lab Units 10/19/24 0512 10/18/24 1041 WBC K/cumm 5.02 4.75 HEMOGLOBIN g/dL 15.5 15.5 HEMATOCRIT % 48.5 47.4 PLATELETS K/cumm 125* 132* NEUTROS PCT % 73.3 71.4 LYMPHS PCT % 14.5 18.1 MONOS PCT % 9.8 9.3 EOS PCT % 1.4 0.6 Recent Labs Lab Units 10/19/24 0512 10/18/24 1041 SODIUM mmol/L 133* 132* POTASSIUM PLASMA mmol/L 4.8 5.0* CHLORIDE mmol/L 96* 97 CO2 mmol/L 30 28 ANIONGAP mmol/L 7 7 GLUCOSE mg/dL 87 90 BUN SERUM mg/dL 35* 29* CREATININE mg/dL 1.83* 1.62* CALCIUM mg/dL 9.2 9.6 ALBUMIN g/dL -- 3.5 ALK PHOS Units/L -- 52 ALT Units/L -- 15 AST Units/L -- 41 BILIRUBIN TOTAL mg/dL -- 2.1* Legionella and strep urine ag neg 10/19/24 Blood cultures without growth from 10/18/24 Respiratory pathogen panel: Negative NT-proBNP 8636 Imaging: CT Chest wo con 10/18/24: Other diagnostic tests: I have personally reviewed above laboratory findings, chest imaging, and diagnostic tests 10/20/2024 Assessment and Plan: Acute hypoxic respiratory insufficiency Severe emphysema RLL cavitary lesion: pneumonia vs malignancy vs bullous disease Hx of Afib Hx of CHF Hx of CKD Hx of CAD s/p CABG Hx of ischemic cardiomyopathy Recs: - Wean supplemental O2 for SpO2 88-92% - Nebs TID - - Continue Unasyn day 2 Will need to follow imaging of chest - If pleural effusion increases in size would need diagnostic thoracentesis - Will need repeat imaging in 4-6 weeks otherwise * Leonel Verma PTA - 10/20/2024 1:45 PM CDT Physical Therapy PT PROGRESS NOTE PATIENT'S NAME:Ian Monsalve :1940 AGE:84 y.o. ROOM:[facility]/[place] [id number] No past medical history on file. No past surgical history on file. Patient Active Problem List Diagnosis Palpitations Acute congestive heart failure, unspecified heart failure type (HCC) TIME IN: 1345 TIME OUT: 1412 SUBJECTIVE Pt states that he can take a walk and sit up in the chair MENTAL STATUS/ORIENTATION: alert and oriented x4 PAIN: Pre-therapy pain level: 0/10 Pain location: n/a Pain intervention: not needed Post-therapy pain level/response to intervention: 0/10 OBJECTIVE PRECAUTIONS: fall, PAMUNKEY, and bed / chair alarm APPEARANCE/POSTURE: Pt supine w/ HOB elevated, on 4 liters of 02, bed alarm activated, in no distress, call light in reach, and pt pleasantly agreeable to therapy VITAL SIGNS: Peak-activity heart rate: 80bpm Peak-activity O2 sat: 90% on 4 liters of 02 MOBILITY DOCUMENTATION: Bed Mobility- SBA of 1 for supine to sit Transfers: Min assist of 1 for sit to stand from bed. CG assist of 1 for stand to sit to b/s chair Gait: 100ft x 1 using wheeled walker- CG to min assist of 1. One slight LOB when turning to the L and required min assist of 1 to correct. Pt displayed decreased ashley, decreased step length bilaterally, downward gaze, flexed posture, and decreased stability TREATMENT: LE seated exercises x 15 reps bilaterally: ankle pumps, hip ABD,ADD, LAQ's, and marches. Min assistof 1 APPEARANCE/POSTURE (end of session): Pt sitting in b/s chair with chair alarm activated, pt in no distress, call light in reach, and handoff given to RN Radha EDUCATION:bed mobility , therapeutic activity, therapeutic exercises , functional transfer training, gait training , strengthening, endurance training, safety , and durable medical equipment education RESPONSE TO EDUCATION: needs reinforcement ASSESSMENT Activity tolerance/response to P.T.: Pt tolerated session and increased gait distance to 100ft in hallway. Pt at times unsteady during gait and one slight LOB in hallway w/ min to correct. Barriers to learning: Physical and Hearing Barriers to discharge: Decreased endurance and Lower extremity weakness Patient continues progressing toward previously set goals which remain appropriate at this time. PLAN PT Discharge Recommendations this date: PT Recommendation/Plan: Home with 24 hour supervision, Home Health PT Patient at high risk for: Falls, Injury due to reduced functional status, Injury due to balance deficits PT Frequency during current admission: 3-5x/wk CARE PLAN Multi-Disciplinary Problems (from Physical Therapy) Active Problems [place] [facility] [place]: 10/19/24 Goal Start Date Expected End Date End Date PT [facility] 1 10/19/24 10/27/24 -- Goal Details: Patient will transfer supine to/from sit with modified indep. Progressing Goal Start Date Expected End Date End Date PT [facility] 2 10/19/24 10/27/24 -- Goal Details: Patient will transfer sit to/from stand with modified indep. Progressing Goal Start Date Expected End Date End Date PT [facility] 3 10/19/24 10/27/24 -- Goal Details: Patient will amb 75' with wh walker and modified indep. Progressing Goal Start Date Expected End Date End Date [facility] 4 10/19/24 10/27/24 -- Goal Details: Patient will negotiate 1 step with appropriate method and cg assist. Progressing Goal Start Date Expected End Date End Date [facility] 5 10/19/24 10/27/24 -- Goal Details: Patient will perform ZOILA LE ROM ex with SBA. Progressing If this is the last note, please consider this the discharge summary. Cosigned by Zuri Edmonds, PT at 10/20/2024 3:42 PM CDT * Leonel Verma, LONG CH[employer] DYEING MACHINE OPERATOR - 10/20/2024 12:09 PM CDT Physical Therapy Pt currently unavailable for therapy- receiving ultrasound in room. Will check on patient at a later time as schedule allows Leonel Verma PTA 10/20/24 12:10 PM * Kathleen Ryder, PHYSICAL SCIENTIST - 10/20/2024 10:14 AM CDT Inhaled Bronchodilator Therapy Pt assessed and scored per the established inhaled bronchodilator protocol criteria. Pt preference and subjective response to therapy used in conjunction with pt score to provide current updraft therapy. Cough Patient has a strong cough on demand. Will continue to monitor sputum amount, color, and consistency. Oxygen Therapy Patient remains on oxygen titration protocol. Wean FiO2 to maintain SpO2 >92%. 10/20/24 1000 RT Protocol Assessment RT Assessment Scoring Needed Bronchodilator Bronchodilator Assessment Scoring Pulmonary Status 3 Surgical Status <30 days ago 0 Chest X-Ray < WEEK 2 Respiratory Pattern 2 Mental Status/LOC 0 Cough 0 Breath Sounds 2 Level of Activity 1 Oxygen Required for SPO2 >92% 1 Bronchodilator Assessment Score 11 * Luan Guillermo, DO - 10/20/2024 8:57 AM CDT Daily Progress Subjective Chief complaint of Dyspnea. Interval History: Patient seen and examined at bedside. Spouse present at bedside. Remains on 4 L NC. No apparent distress at this time. They express concern over his heart and kidney function. Multiple consults following. Objective Physical Exam: General Appearance: Alert, cooperative, no distress, appears stated age, well developed, well nourished Head: Normocephalic, without obvious abnormality, atraumatic Eyes: Conjunctiva/corneas clear, EOM's intact, both eyes, anicteric Ears: Normal external ear canals, both ears Nose: Nares normal, septum midline, mucosa normal, no drainage Throat: Lips, mucosa, and tongue normal; mucous membranes moist Neck: Supple Lungs: Clear to auscultation bilaterally, respirations unlabored Cardiovascular: Regular rate and rhythm Abdomen: Soft, non-tender, bowel sounds decr, non-distended Extremities: Extremities normal, atraumatic, no cyanosis, +2 LE edema Skin: Skin color, texture, turgor normal, no rashes Psychosocial: Normal affect and mood Lab/Radiology/Diagnostic Review: Laboratory review: Lab results in the last 24 hours: Recent Results (from the past 24 hours) Magnesium Collection Time: 10/20/24 6:38 AM Result Value Ref Range Magnesium 2.0 1.4 - 2.5 mg/dL CBC with auto differential Collection Time: 10/20/24 6:38 AM Result Value Ref Range WBC 4.94 3.80 - 9.90 K/cumm Hgb 14.2 13.0 - 17.5 g/dL Hct 43.3 38.9 - 50.3 % Plt 106 (L) 150 - 400 K/cumm MPV 11.0 9.1 - 12.3 fL RBC 4.58 4.30 - 5.80 M/cumm MCV 94.5 81.3 - 96.4 fL MCH 31.0 27.1 - 33.3 pg MCHC 32.8 32.3 - 35.7 g/dL RDW CV 16.8 (H) 11.1 - 14.9 % RDW SD 58.4 (H) 35.7 - 48.1 fL NRBC abs 0.00 0.00 - 0.01 K/cumm Basic metabolic panel Collection Time: 10/20/24 6:38 AM Result Value Ref Range Sodium 133 (L) 135 - 145 mmol/L Potassium, pl 4.4 3.3 - 4.9 mmol/L Chloride 96 (L) 97 - 110 mmol/L CO2 30 22 - 32 mmol/L Anion gap 10 2 - 15 mmol/L BUN 46 (H) 6 - 25 mg/dL Creatinine 2.43 (H) 0.80 - 1.30 mg/dL Glucose 106 70 - 199 mg/dL Calcium 8.8 8.5 - 10.3 mg/dL Protime-INR Collection Time: 10/20/24 6:38 AM Result Value Ref Range PT 34.5 (H) 9.7 - 13.0 sec INR 3.12 (H) 0.90 - 1.20 Digoxin level Collection Time: 10/20/24 6:38 AM Result Value Ref Range Digoxin 0.8 0.5 - 1.2 ng/mL Differential, auto Collection Time: 10/20/24 6:38 AM Result Value Ref Range Neutrophil abs 3.55 1.50 - 6.50 K/cumm Imm gran abs 0.01 0.00 - 0.10 K/cumm Lymphocyte abs 0.72 (L) 0.80 - 3.30 K/cumm Monocyte abs 0.61 0.20 - 0.80 K/cumm Eosinophil abs 0.03 0.00 - 0.50 K/cumm Basophil abs 0.02 0.00 - 0.10 K/cumm Neutrophil pct 71.9 % Imm gran pct 0.2 % Lymphocyte pct 14.6 % Monocyte pct 12.3 % Eosinophil pct 0.6 % Basophil pct 0.4 % eGFR Collection Time: 10/20/24 6:38 AM Result Value Ref Range eGFR 26 (L) >=60 mL/min/1.73 m2 Current Facility-Administered Medications Medication Dose Route Frequency Provider Last Rate Last Admin ampicillin-sulbactam (UNASYN) 3 g in sodium chloride 0.9% 100 mL IVPB 3 g intravenous Q12H Radha Day MD 220 mL/hr at 10/20/24 0903 3 g at 10/20/24 0903 aspirin enteric coated tablet 81 mg 81 mg oral Daily Namrata Spencer NP 81 mg at 10/20/24 0900 atenoloL (TENORMIN) tablet 50 mg 50 mg oral Daily Namrata Spencer NP 50 mg at 10/19/24 0833 atorvastatin (LIPITOR) tablet 20 mg 20 mg oral Nightly Namrata Spencer NP 20 mg at 10/19/24 2123 calcitRIOL (ROCALTROL) capsule 0.25 mcg 0.25 mcg oral Daily Namrata Spencer NP 0.25 mcg at 10/20/24 0900 clorazepate (TRANXENE) tablet 7.5 mg 7.5 mg oral BID Namrata Spencer NP [Held by Provider] digoxin (LANOXIN) tablet 250 mcg 250 mcg oral Once per day on Thursday Namrata Spencer NP docusate sodium (COLACE) capsule 100 mg 100 mg oral BID PRN Namrata Spencer NP 100 mg at10/20/24 09 dofetilide (TIKOSYN) capsule 125 mcg 125 mcg oral BID Namrata Spencer NP 125 mcg at 10/20/24 0900 fenofibrate nanocrystallized (TRICOR) tablet 145 mg 145 mg oral Daily Namrata Spencer NP145 mg at 10/20/24 0900 fluticasone propionate (FLONASE) 50 mcg/actuation nasal spray 2 spray 2 spray each nostril Daily PRN Namrata Spencer NP furosemide (LASIX) 10 mg/mL injection 40 mg 40 mg intravenous BID DIURETIC Delvin Mendenhall MD 40 mg at 10/19/24 1544 ipratropium-albuteroL (DUO-NEB) 0.5-2.5 mg/3 mL nebulizer solution 3 mL 3 mL nebulization Q4H [place] (RT) Namrata Spencer NP 3 mL at 10/20/24 1423 levothyroxine (SYNTHROID) tablet 25 mcg 25 mcg oral Daily - 0600 Namrata Spencer NP 25 mcg at 10/20/24 0445 ondansetron (ZOFRAN) injection 4 mg 4 mg intravenous Q6H PRN Namrata Spencer NP pantoprazole DR (PROTONIX) extended release tablet 40 mg 40 mg oral Daily Carla Jean MD 40 mg at 10/20/24 0900 ramelteon (ROZEREM) tablet 8 mg 8 mg oral Nightly PRN Namrata Spencer NP 8 mg at 10/18/24 204 warfarin (COUMADIN) tablet 1 mg 1 mg oral Once - 1800 Luan Guillermo, DO Vitals: 24hr Min/Max: Temp Min: 36.2 ??C (97.2 ??F) Max: 36.7 ??C (98.1 ??F) Pulse Min: 79 Max: 81 BP Min: 87/58 Max: 95/62 SpO2 Min: 84 % Max: 96 % Most Recent : Vitals: 10/20/24 0830 BP: 90/55 Pulse: Resp: Temp: SpO2: I/O last 2 completed shifts: In: - Out: 1400 [Urine:1400] I/O this shift: In: - Out: 200 [Urine:200] Assessment/Plan Principal Problem: Acute congestive heart failure, unspecified heart failure type (HCC) Acute hypoxic respiratory failure on admission. Differential includes CHF exacerbation, pneumonia. Congestive heart failure exacerbation on admission. BNP 8636. 2D echo performed- pending read. On IV Lasix BID. Cardiology service consulted. Moderately sized right pleural effusion with consolidations in the right upper, right lower, and right middle lobes suggestive of multifocal pneumonia, on admission CT. Respiratory PCR negative. Blood cultures are negative. Strep pneumoniae and Legionella antigens are negative. Was on azithromycin,Rocephin starting on 10/18/2024; on 10/19/2024 Rocephin was changed to Unasyn - continue unasyn therapy. Pulmonology following Multiple left upper lobe pulmonary nodules largest measuring 1.1 cm, on admission CT. Dilated main pulmonary artery suggestive of pulmonary arterial hypertension, on admission CT. Severe centrilobular emphysematous changes, on admission CT. Nonspecific mild gastric wall thickening may represent pseudo-thickening from underdistention versus gastritis, on admission CT. On PPI. Atrial fibrillation, currently paced. On digoxin, will hold due to elevated level. On Tikosyn. On Coumadin, daily INRs. Hyperlipidemia. On statin, Tricor. Hypothyroidism. On Synthroid. CAD. S/p coronary artery bypass graft x two - left internal mammary artery to the left anterior descending, left radial artery to the posterior descending artery, on 02/24/1997. History of VT, status post ablation on 12/31/2015, 04/08/2016 EP study. Cardiomyopathy. Status post old dual-chamber defibrillator generator removal, new biventricular defibrillator generator implantation, left ventricular pacing lead implantation, on 08/04/2016. Hypotension - Reportedly having low blood pressures today - Try to avoid IVF in setting of volume overload. Trial midodrine 5 mg TID Right Kidney Mass - US retroperitoneum - Right kidney mass up to 1.4 cm - MRI recommended, patient with defibrillator - not able to obtain an MRI. Will discuss with nephrology regarding recommendations for further evaluation. Hyponatremia of 133, follow. Slight hyperkalemia, resolved. ROSA on CKD > Progressive worsening over the last 3 days, continue to monitor. Avoid nephrotoxic agents as able. Slight thrombocytopenia of 106, follow. Elevated digoxin level of 1.3, follow. Troponin trend of 51, 54, 51, 51, with delta of 3, 0, 0; nonspecific. Prophylaxis. Protonix, Coumadin. Discussed code status with patient and spouse at bedside - Patient reports being DNR/DNI and agrees. Order changed in the computer * Deborah Mendiola, [facility] - 10/20/2024 8:06 AM CDT Pharmacokinetic Consult - Anticoagulation Dosing Ian Monsalve is a 84 y.o. male who has been consulted for pharmacy warfarin dosing and monitoring. Current Hematologic Labs INR Date Value Ref Range Status 10/20/2024 3.12 (H) 0.90 - 1.20 Final Comment: Interpretive data Oral anticoagulant therapeutic ranges: Venous thromboembolism prophylaxis or treatment: 2.0-3.0 CARDIOLOGY Standard range: 2.0-3.0 High-intensity range: 2.5-3.5 Refer to indication-specific guidelines for appropriate target ranges for prosthetic heart valve replacement. Current interpretive data was last revised on 2019. 10/19/2024 3.14 (H) 0.90 - 1.20 Final Comment: Interpretive data Oral anticoagulant therapeutic ranges: Venous thromboembolism prophylaxis or treatment: 2.0-3.0 CARDIOLOGY Standard range: 2.0-3.0 High-intensity range: 2.5-3.5 Refer to indication-specific guidelines for appropriate target ranges for prosthetic heart valve replacement. Current interpretive data was last revised on 2019. 02/24/2023 2.90 (H) 0.90 - 1.20 Final Comment: Interpretive data Oral anticoagulant therapeutic ranges: Venous thromboembolism prophylaxis or treatment: 2.0-3.0 CARDIOLOGY Standard range: 2.0-3.0 High-intensity range: 2.5-3.5 Refer to indication-specific guidelines for appropriate target ranges for prosthetic heart valve replacement. Current interpretive data was last revised on 2019. Hgb Date Value Ref Range Status 10/20/2024 14.2 13.0 - 17.5 g/dL Final Hct Date Value Ref Range Status 10/20/2024 43.3 38.9 - 50.3 % Final Plt Date Value Ref Range Status 10/20/2024 106 (L) 150 - 400 K/cumm Final No results found for: PTT Assessment Patient was admitted on warfarin with a dose of 2 mg on Thursday and 1 mg all other days (Thu to Thu). Patient is on warfarin for an indication of atrial fibrillation. Goal INR is 2-3. Potential interacting medications: unasyn and azithromycin (could potentially increase INR) Plan Date INR Dose given Comments 10/18 2mg Patient already took dose at home. Daily INR ordered 10/19 3.14 1mg Slightly above goal will give home dose today and may need to decrease for further doses 10/20 3.12 1mg Will continue to follow patient's clinical progress daily. Deborah Mendiola RPh * Donte Camacho MD - 10/20/2024 7:03 AM CDT Cardiology follow-up note-[facility] The patient was seen examined by me Dr. Camacho in person. Pertinent information was reviewed. No new recommendations from Cardiology standpoint at present time except to continue current medication HPI: Patient is a 84 y.o. 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 Patient reports shortness of breath started 7 days ago and progressively got worse. EMS was called for further evaluation. On EMS arrival, patient was noted to be satting in the 70s on room air. 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 Patient also endorses poor appetite associated with generalized weakness. Ambulates with a cane at baseline. Also reports occasional productive cough with clear phlegm. Denies any other associated symptoms. Reports compliance with his home medications. On arrival to Emergency Room, vital signs, temp 97.6??, pulse 80, respiration 24, BP 121/81, O2 sats 99%. Labs, sodium 132, potassium 5.0, creatinine 1.62, BUN 29, proBNP 8,636, PLT 132. Initial troponin slightly elevated with insignificant delta.Paced rhythm on EKG. Respiratory panel negative. CT chest showing moderately sized right pleural effusion with consolidation in the right upper, right lower and right middle lobe suggestive of multifocal pneumonia. Multiple left upper lobe pulmonary nodules. Dilated main pulmonary artery suggestive of pulmonary arterial hypertension. Severe centrilobular emphysema toes changes. Nonspecific mild gastric wall thickening may represent pseudo thickening from under distention versus gastritis. Due to above, patient will be admitted for further evaluation, care and management. No past medical history on file. No past surgical history on file. Medications Prior to Admission Medication Sig Dispense Refill Last Dose/Taking aspirin 81 mg enteric coated tablet Take 1 tablet (81 mg total) by mouth daily 10/18/2024 Morning atenoloL (TENORMIN) 50 mg tablet Take 1 tablet (50 mg total) by mouth daily 10/17/2024 atorvastatin (LIPITOR) 20 mg tablet Take 1 tablet (20 mg total) by mouth nightly 10/17/2024 Bedtime calcitRIOL (ROCALTROL) 0.25 mcg capsule Take 1 capsule (0.25 mcg total) by mouth daily 10/18/2024 Morning clorazepate (TRANXENE) 15 mg tablet Take 0.5 tablets (7.5 mg total) by mouth 2 (two) times a day 10/18/2024 Morning digoxin (LANOXIN) 250 mcg (0.25 mg) tablet Take 1 tablet (250 mcg total) by mouth 3 (three) times aweek on Mon, Wed, Fri 10/17/2024 ergocalciferol (VITAMIN D) 50,000 unit capsule Take 1 capsule (50,000 Units total) by mouth once a week on Sat Past Week fenofibrate nanocrystallized (TRICOR) 145 mg tablet Take 1 tablet (145 mg total) by mouth daily 10/17/2024 fluticasone propionate (Flonase Allergy Relief) 50 mcg/actuation nasal spray Administer 2 sprays into each nostril daily as needed for rhinitis or allergies Past Week levothyroxine (SYNTHROID) 25 mcg tablet Take 1 tablet (25 mcg total) 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 10/18/2024 Morning Tikosyn 125 mcg capsule Take 1 capsule (125 mcg total) by mouth 2 (two) times a day 10/18/2024 Morning warfarin (COUMADIN) 2 mg tablet Take 1 tablet (2 mg total) by mouth once a week on Tuesdays10/18/2024 Morning warfarin (COUMADIN) 2 mg tablet Take 0.5 tablets (1 mg total) by mouth 6 (six) times a week from Thursday to Thursday10/17/2024 Morning Current Facility-Administered Medications: ampicillin-sulbactam (UNASYN) 3 g in sodium chloride 0.9% 100 mL IVPB, 3 g, intravenous, Q12H THERESA, Radha Suggs MD, Last Rate: 220 mL/hr at 10/20/24 0436, 3 g at 10/20/24 0436 aspirin enteric coated tablet 81 mg, 81 mg, oral, Daily, Namrata Spencer NP, 81 mg at 10/19/24 0834 atenoloL (TENORMIN) tablet 50 mg, 50 mg, oral, Daily, Namrata Spencer NP, 50 mg at 10/19/24 0833 atorvastatin (LIPITOR) tablet 20 mg, 20 mg, oral, Nightly, Namrata Spencer NP, 20 mg at 10/19/24 2123 azithromycin (ZITHROMAX) 500 mg in sodium chloride 0.9% 250 mL [id number] IVPB, 500 mg, intravenous, Q24H THERESA, Namrata Spencer NP, Stopped at 10/19/24 1042 calcitRIOL (ROCALTROL) capsule 0.25 mcg, 0.25 mcg, oral, Daily, Namrata Spencer NP, 0.25mcg at 10/19/24 0834 clorazepate (TRANXENE) tablet 7.5 mg, 7.5 mg, oral, BID, Namrata Spencer NP [Held by Provider] digoxin (LANOXIN) tablet 250 mcg, 250 mcg, oral, Once per day on Thursday, Namrata Spencer NP docusate sodium (COLACE) capsule 100 mg, 100 mg, oral, BID PRN, Namrata Spencer NP dofetilide (TIKOSYN) capsule 125 mcg, 125 mcg, oral, BID, Namrata Spencer NP, 125 mcg at10/19/242199 fenofibrate nanocrystallized (TRICOR) tablet 145 mg, 145 mg, oral, Daily, Namrata Spencer NP, 145 mg at 10/19/24 0833 fluticasone propionate (FLONASE) 50 mcg/actuation nasal spray 2 spray, 2 spray, each nostril, DailyPRN, Namrata Spencer NP furosemide (LASIX) 10 mg/mL injection 40 mg, 40 mg, intravenous, BID DIURETIC, Delvin Mendenhall MD,40 mg at 10/19/24 154 ipratropium-albuteroL (DUO-NEB) 0.5-2.5 mg/3 mL nebulizer solution 3 mL, 3 mL, nebulization, Q4H While awake (RT), Namrata Spencer NP, 3 mL at 10/19/242004 levothyroxine (SYNTHROID) tablet 25 mcg, 25 mcg, oral, Daily - 0600, Namrata Spencer NP,25 mcg at 10/20/24444 ondansetron (ZOFRAN) injection 4 mg, 4 mg, intravenous, Q6H PRN, Namrata Spencer NP pantoprazole DR (PROTONIX) extended release tablet 40 mg, 40 mg, oral, Daily, Carla Jean MD ramelteon (ROZEREM) tablet 8 mg, 8 mg, oral, Nightly PRN, Namrata Spencer NP, 8 mg at 10/18/242041 Allergies Allergen Reactions Trazodone Hcl Unknown Morphine Hydrocodone Unknown Lunesta [Eszopiclone] Other (See comments) Gave him crazy dreams Tramadol Nausea only Vicodin [Hydrocodone-Acetaminophen] Nausea only Social History Tobacco Use Smoking status: Former Current packs/day: 0.00 Types: Cigarettes Start date: 1955 Quit date: 1997 Years since quittin.4 Passive exposure: Past Smokeless tobacco: Never Substance and Sexual Activity Drug use: Not on file Sexual activity: Not on file Alcohol Use: Unknown (02/23/2023) AUDIT-C Frequency of Alcohol Consumption: Not on file Average Number of Drinks: Patient does not drink Frequency of Binge Drinking: Not on file No family history on file. Review of Systems: Continues to have fatigue shortness of breath denies fever chills denies chest pain other 12 reviewof systems unremarkable Constitutional: Currently resting comfortably mildly short of breath HENT: Head: Normocephalic and atraumatic. Right Ear: External ear normal. Left Ear: External ear normal. Mouth/Throat: Mouth: Mucous membranes are moist. Eyes: Extraocular Movements: Extraocular movements intact. Conjunctiva/sclera: Conjunctivae normal. Cardiovascular: Rate and Rhythm: Normal rate and regular rhythm. Heart sounds: No murmur heard. Pulmonary: Effort: Pulmonary effort is normal. No respiratory distress. Breath sounds: Coarse bilaterally Abdominal: General: Bowel sounds are normal. There is no distension. Palpations: Abdomen is soft. Tenderness: There is no abdominal tenderness. Musculoskeletal: Muscle wasting present Skin: General: Skin is warm and dry. Capillary Refill: Capillary refill takes less than 2 seconds. Neurological: General: No focal deficit present. Mental Status: He is alert and oriented to person, place, and time. Psychiatric: Mood and Affect: Mood normal. Behavior: Behavior normal. Thought Content: Thought content normal. Objective Vitals: 24hr Min/Max: Temp Min: 36.2 ??C (97.2 ??F) Max: 36.7 ??C (98.1 ??F) Pulse Min: 75 Max: 81 BP Min: 92/63 Max: 95/62 SpO2 Min: 84 % Max: 96 % Most Recent: Vitals: 10/20/24 0504 BP: Pulse: 80 Resp: Temp: SpO2: (!) 88% I/O last 2 completed shifts: In: - Out: 1400 [Urine:1400] No intake/output data recorded. Physical Exam: Constitutional: Currently resting comfortably mildly short of breath HENT: Head: Normocephalic and atraumatic. Right Ear: External ear normal. Left Ear: External ear normal. Mouth/Throat: Mouth: Mucous membranes are moist. Eyes: Extraocular Movements: Extraocular movements intact. Conjunctiva/sclera: Conjunctivae normal. Cardiovascular: Rate and Rhythm: Normal rate and regular rhythm. Heart sounds: No murmur heard. Pulmonary: Effort: Pulmonary effort is normal. No respiratory distress. Breath sounds: Coarse bilaterally Abdominal: General: Bowel sounds are normal. There is no distension. Palpations: Abdomen is soft. Tenderness: There is no abdominal tenderness. Musculoskeletal: Muscle wasting present Skin: General: Skin is warm and dry. Capillary Refill: Capillary refill takes less than 2 seconds. Neurological: General: No focal deficit present. Mental Status: He is alert and oriented to person, place, and time. Psychiatric: Mood and Affect: Mood normal. Behavior: Behavior normal. Thought Content: Thought content normal. Lab/Radiology/Diagnostic Review: Laboratory review: Lab results in the last 24 hours: Recent Results (from the past 24 hours) Hemoglobin A1c Collection Time: 10/19/24 12:15 PM Result Value Ref Range Hgb A1C 5.6 4.0 - 5.6 % Estimated Average Glucose 114 mg/dL Erythrocyte sedimentation rate Collection Time: 10/19/24 12:15 PM Result Value Ref Range Erythrocyte sedimentation rate 6 1 - 20 mm/hr C3 complement Collection Time: 10/19/24 12:15 PM Result Value Ref Range Complement C3 119 90 - 180 mg/dL Protein / creatinine ratio, urine, random Collection Time: 10/19/24 12:33 PM Result Value Ref Range Protein, ur, quant 5.8 mg/dL Creatinine Ur 46.3 mg/dL Protein/creatinine ratio 125.3 0.0 - 180.0 mg/g CR Urinalysis reflex to microscopic and culture Urine Collection Time: 10/19/24 12:33 PM Specimen: Urine Result Value Ref Range Color, ur Yellow Yellow Clarity, ur Clear Clear Specific gravity, ur 1.007 1.003 - 1.030 pH, urine 5.0 Protein, ur ql Negative Negative Glucose, ur ql Negative Negative Ketones, ur Negative Negative Bilirubin, ur Negative Negative Blood, ur Negative Negative Urobilinogen, ur <2.0 <2.0 mg/dL Nitrite, ur Negative Negative Leukocyte esterase, ur Negative Negative UA reflex comment Reflex conditions for microscopic UA and culture not met. Strep pneumoniae antigen, urine Urine Collection Time: 10/19/24 12:33 PM Specimen: Urine Result Value Ref Range S. pneumoniae Ag Negative Negative Legionella antigen Urine Collection Time: 10/19/24 12:33 PM Specimen: Urine Result Value Ref Range Legionella Ag Negative Negative CBC with auto differential Collection Time: 10/20/24 6:38 AM Result Value Ref Range WBC 4.94 3.80 - 9.90 K/cumm Hgb 14.2 13.0 - 17.5 g/dL Hct 43.3 38.9 - 50.3 % Plt 106 (L) 150 - 400 K/cumm MPV 11.0 9.1 - 12.3 fL RBC 4.58 4.30 - 5.80 M/cumm MCV 94.5 81.3 - 96.4 fL MCH 31.0 27.1 - 33.3 pg MCHC 32.8 32.3 - 35.7 g/dL RDW CV 16.8 (H) 11.1 - 14.9 % RDW SD 58.4 (H) 35.7 - 48.1 fL NRBC abs 0.00 0.00 - 0.01 K/cumm Protime-INR Collection Time: 10/20/24 6:38 AM Result Value Ref Range PT 34.5 (H) 9.7 - 13.0 sec INR 3.12 (H) 0.90 - 1.20 Differential, auto Collection Time: 10/20/24 6:38 AM Result Value Ref Range Neutrophil abs 3.55 1.50 - 6.50 K/cumm Imm gran abs 0.01 0.00 - 0.10 K/cumm Lymphocyte abs 0.72 (L) 0.80 - 3.30 K/cumm Monocyte abs 0.61 0.20 - 0.80 K/cumm Eosinophil abs 0.03 0.00 - 0.50 K/cumm Basophil abs 0.02 0.00 - 0.10 K/cumm Neutrophil pct 71.9 % Imm gran pct 0.2 % Lymphocyte pct 14.6 % Monocyte pct 12.3 % Eosinophil pct 0.6 % Basophil pct 0.4 % Lipids: No results found for: CHOL, CHLPL, HDL, LDLCALC, TRIG, CHOLHDL and Cardiac Enzymes: No results found for: CKTOTAL, CKMB, CKMBINDEX, TROPONINT ECG: Results for orders placed during the hospital encounter of 10/18/24 ECG 12 lead Narrative Vent Rate: 80 bpm RR Interval: 749 msec RI Interval: 140 msec QRS Duration: 164 msec QT Interval: 377 msec QTC Interval: 412 msec P-R-T [place]: -52 - 226 - 226 degrees IMPRESSION: ELECTRONIC VENTRICULAR PACEMAKER ST DEPRESSION, CONSIDER SUBENDOCARDIAL INJURY [0.1+ mV ST DEPRESSION] ABNORMAL ECG No change compared to prior EKG Electronically Signed By: Emilio Ratliff MD [facility] Latest Reference Range & Units 10/20/24 06:38 INR 0.90 - 1.20 3.12 (H) (H): Data is abnormally high Latest Reference Range & Units 10/20/24 06:38 Hgb 13.0 - 17.5 g/dL 14.2 Latest Reference Range & Units 10/20/24 06:38 WBC 3.80 - 9.90 K/cumm 4.94 Latest Reference Range & Units 10/19/24 12:15 Hgb A1C 4.0 - 5.6 % 5.6 Latest Reference Range & Units 10/19/24 05:12 Potassium, pl 3.3 - 4.9 mmol/L 4.8 Latest Reference Range & Units 10/19/24 05:12 Creatinine 0.80 - 1.30 mg/dL 1.83 (H) (H): Data is abnormally high Narrative & Impression EXAMINATION: RENAL ULTRASOUND Date: 10/19/2024 2:20 PM [...] Electronically signed by: Rajendra Oh II, D.O. Impression recommendations CHF, Systolic acute on chronic ischemic cardiomyopathy, Dyspnea Presence of cardiac device Presence of thrive Kidney mass will defer that to primary I Dr. Camacho saw and examined the patient. Pertinent information was reviewed. Patient is known to me from follow-up as outpatient. He usually sees me in the [place] office. Recently he has being feeling more fatigued has worsening shortness of breath patient. I discussed case with Pulmonary team. Do not recommend cardiac catheterization because that per thepatient on dialysis. Will adjust patient's medications were discussed case with nephrology team. Avoid over diuresing Continue present cardiac medications will defer management of noncardiac medical problems to primary care and pulmonary care team * Donte Camacho MD - 10/20/2024 7:02 AM CDT Pertinent information was reviewed full cardiology note to follow * Soledad Camacho [facility] - 10/19/2024 12:17 PM CDT Pharmacokinetic Consult - Anticoagulation Dosing Ian Monsalve is a 84 y.o. male who has been consulted for pharmacy warfarin dosing and monitoring. Current Hematologic Labs INR Date Value Ref Range Status 10/19/2024 3.14 (H) 0.90 - 1.20 Final Comment: Interpretive data Oral anticoagulant therapeutic ranges: Venous thromboembolism prophylaxis or treatment: 2.0-3.0 CARDIOLOGY Standard range: 2.0-3.0 High-intensity range: 2.5-3.5 Refer to indication-specific guidelines for appropriate target ranges for prosthetic heart valve replacement. Current interpretive data was last revised on 2019. 02/24/2023 2.90 (H) 0.90 - 1.20 Final Comment: Interpretive data Oral anticoagulant therapeutic ranges: Venous thromboembolism prophylaxis or treatment: 2.0-3.0 CARDIOLOGY Standard range: 2.0-3.0 High-intensity range: 2.5-3.5 Refer to indication-specific guidelines for appropriate target ranges for prosthetic heart valve replacement. Current interpretive data was last revised on 2019. 02/23/2023 3.08 (H) 0.90 - 1.20 Final Comment: Interpretive data Oral anticoagulant therapeutic ranges: Venous thromboembolism prophylaxis or treatment: 2.0-3.0 CARDIOLOGY Standard range: 2.0-3.0 High-intensity range: 2.5-3.5 Refer to indication-specific guidelines for appropriate target ranges for prosthetic heart valve replacement. Current interpretive data was last revised on 2019. Hgb Date Value Ref Range Status 10/19/2024 15.5 13.0 - 17.5 g/dL Final Hct Date Value Ref Range Status 10/19/2024 48.5 38.9 - 50.3 % Final Plt Date Value Ref Range Status 10/19/2024 125 (L) 150 - 400 K/cumm Final No results found for: PTT Soledad Camacho RPh Assessment Patient was admitted on warfarin with a dose of 2 mg on Thursday and 1 mg all other days (Thu to Thu). Patient is on warfarin for an indication of atrial fibrillation. Goal INR is 2-3. Potential interacting medications: ceftriaxone and azithromycin (could potentially increase INR) Plan Date INR Dose given Comments 10/18 2mg Patient already took dose at home. Daily INR ordered 10/19 3.14 1mg Slightly above goal will give home dose today and may need to decrease for further doses Will continue to follow patient's clinical progress daily. PharmD BCPS * Ayah Oliveira OT - 10/19/2024 11:50 AM CDT Occupational Therapy NOTE / SESSION TYPE: Initial Evaluation Patient Name: Ian Monsalve Date of : 1940 Age / Sex: 84 y.o. / male Room: [facility]/[id number] Admit Date: 10/18/2024 Date of Service: 10/19/24 Time In: 11:50 Time Out: 12:18 Primary Diagnosis: Acute congestive heart failure, unspecified heart failure type (HCC) HPI: Ian Monsalve is a 84 y.o. 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 Pain Assessment: Pre-therapy pain level: 0 / 10 Pain location: No pain - Location N/A Pain intervention(s): No pain - Intervention N/A Post-therapy pain level: 0 / 10 Pain scale used: 0-10 SCALE Prior Living Environment and Level of Function: Lives with: Receives assistance from / other social supports available: Supportive family Living environment (Type of residence / Entrance accessibility): One story house with 1 + 1 steps to enter Bathroom location and setup: Tub/shower combination with shower chair Prior level of function: Independent with feeding, grooming, bathing, dressing, toileting, transfers, ambulating Assist with tub/shower transfers Total assist with housekeeping, laundry, meal preparation, shopping Mobility device used prior to admission: None Equipment available: Rollator, wheeled walker, straight cane Community access / Driving: Drives self Social roles / Hobbies: Watches television Patient / Family goal(s): To go home. Fall(s) within the last 6 months: No OBJECTIVE: Appearance: Presentation upon OT arrival: Patient Sitting in bedside chair Presentation upon OT departure: Patient Sitting in bedside chair Bed / chair alarm in place and activated upon OT departure: Yes Call light within arms reach of patient at end of session: Yes Completed patient handoff and notified BOARDING MACHINE OPERATOR / RN of patient's location and functional status upon completion of session Vital Signs: Heart rate at rest: 80 bpm SPO2 at rest: 92 % Heart rate with activity: 90 bpm SPO2 with activity: 88%; increased to 90% with rest Oxygen LPM: 3 Cognitive / Perceptual Assessment: Alert and oriented. UE ROM / Strength / Coordination: (A)ROM - Right: WFL, except shoulder flexion approximately 100 degrees Strength - Right: 4/5, except shoulder flexion 3-/5, elbow extension 4-/5 (A)ROM - Left: WFL, except shoulder flexion approximately 120 degrees Strength - Left: 4/5, except shoulder flexion 3-/5, elbow extension 4-/5 Hand Dominance: Right Research Laboratory Manager Strength (Right): Good- Research Laboratory Manager Strength (Left): Good- Right Serial Opposition: Decreased rate Left Serial Opposition: Decreased rate Balance: Static sitting balance: Good, supported, sitting in bedside chair and sitting on toilet Dynamic sitting balance: Good-, supported, sitting in bedside chair and sitting on toilet Static standing balance: Good-, supported, using wheeled walker Mobility / Transfers: Transfer(s): Sit to stand from bedside chair/stand to sit to bedside chair- Incidental touching assist using wheeled walker Toilet transfer-Incidental touching using wheeled walker Bedside chair to toilet/toilet to bedside chair-Incidental touching using wheeled walker Patient required min verbal cues for walker safety when transferring to toilet Activities of Daily Living / Living Skills: UE dressing: Patient completed simulated upper body dressing of Hospital gown while Sitting in bedside chair / recliner with overall Minimal assistance. Patient required assistance for fasteners. Footwear: Patient completed footwear of Sock(s) while Sitting in bedside chair / recliner with overall Supervision assistance. Patient required assistance for safety Patient attempted to have a BM, but was unable. ASSESSMENT: Rehab Potential (Prognosis): good Problem List: Patient has impairments including: Decreased UE ROM , Decreased UE strength, Decreased coordination, Decreased balance, Decreased mobility, Decreased endurance, and Long-standing deficits. Barriers to Discharge: Decreased endurance, Upper extremity weakness, and Long standing deficits PLAN: OT Discharge Recommendations this date: OT RECOMMENDATIONS: OT Recommendation: (S) Home with 24 hour supervision, Home Health OT Patient at risk for: Patient at high risk for: Readmission Justification of discharge recommendations flow sheet completed: Yes Frequency of therapy:OT Frequency during current admission: 3-5x/wk Intervention / Education needs: ADL training, Compensatory ADL strategies, Adaptive equipment education, Pursed lip breathing / Relaxation techniques, UE home exercise program education, Family training as appropriate, and Energy conservation techniques Education provided: Patient and family has been educated on Role of OT, OT plan of care, ADL training, Functional transfer training, Balance training, and Safety education. Individual(s) needs ongoing reinforcement. Short Term Goals / Care Plan: Multi-Disciplinary Problems (from Occupational Therapy) Active Problems Problem[place] [facility] [place]: 10/19/24 Goal Start Date Expected End Date End Date OT [facility] [place] [facility] [place]19[place]24 10/26/24 -- Goal Details: Patient will verbalize/demonstrate 4-5 energy conservation techniques with initial verbal cues to improve tolerance for ADLs one time Goal Start Date Expected End Date End Date OT [facility] [place] [facility] [place] 10/19/24 10/26/24 -- Goal Details: Patient will complete chest mobilization exercises with initial verbal cues to improve endurance and tolerance for ADLs one time Goal Start Date Expected End Date End Date OT [facility] [place] [facility] [place] 10/19/24 10/26/24 -- Goal Details: Patient will complete bathing with supervision assist one time Goal Start Date Expected End Date End Date OT [facility] [place] [facility] [place] 10/19/24 10/26/24 -- Goal Details: Patient will complete UE dressing with setup one time Goal Start Date Expected End Date End Date OT [facility] [place] [facility] [place] 10/19/24 10/26/24 -- Goal Details: Patient will complete LE dressing of underwear and socks with supervision assist one time Goal Start Date Expected End Date End Date OT [facility] [place] [facility] [place] 10/19/24 10/26/24 -- Goal Details: Patient will complete toilet transfer with supervision assist one time If this is the last note, consider this the discharge summary Ayah Oliveira OT 10/19/24 * Ayah Oliveira OT - 10/19/2024 11:45 AM CDT Occupational Therapy Unavailable- Working with PT at this time. Ayah Oliveira, OT 10/19/24 11:45 AM * Boni Allen, PT - 10/19/2024 11:11 AM CDT Physical Therapy INITIAL EVALUATION PATIENT'S NAME:Ian Monsalve :1940 AGE:84 y.o. 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 No past surgical history on file. SUBJECTIVE: provides most of subjective at patient request due to patient very PAMUNKEY and hearingaides not available. LIVES WITH: LIVING ENVIRONMENT: 1 story house with 1+1 steps to enter. Tub/shower combo with shower chair PRIOR LEVEL OF FUNCTION: Amb indep without device (holds onto wall or furniture). assist with tub transfers, then uses a shower chair to independently bathe. Indep with dressing. does cooking/cleaning and laundry at home. (Patient likes to cook, but hasn't been able to do it lately. EQUIPMENT OWNED: rollator, wh walker, single tip cane EQUIPMENT USED: none SOCIAL SUPPORTS: PATIENT/FAMILY GOAL: Per for patient to get stronger MENTAL STATUS/ORIENTATION: Alert and Oriented to person OBJECTIVE PRECAUTIONS: fall APPEARANCE/POSTURE: Patient lying supine in bed with HOB elevated to 45 deg, O2 3L VITAL SIGNS: Resting heart rate: 89 BPM Post-activity heart rate: 92 BPM Resting O2 sat: 95% Post-activity O2 sat: 86-87%, recovers to 97% within 5 minutes PAIN: Pre-therapy pain level: 0/10 Pain location: - Pain intervention: - Post-therapy pain level/response to intervention: 0/10 LE ASSESSMENTS: Right LE ROM: WFL Left LE ROM: WFL Right LE strength: hip 3+/5, knee and ankle 4-/5 Left LE strength: hip 3+/5, knee and ankle 4-/5 MOBILITY: Bed mobility: supine to sit cg assist Transfers: sit to/from stand with cg assist and vc's for hand placement Ambulation: Distance: 25' Assistive device: rolling walker Level of assist: contact guard Deviations: flexed posture, decreased heel strike/push off ZOILA. Balance/Special Tests: Static sitting balance: good Dynamic sitting balance: good Static standing balance: good- Dynamic standing balance: good- AMPAC: Basic Mobility - 6 Click How much difficulty does the patient have: Turning over in bed: None How much difficulty does the patient currently have: Sitting down and standing up from a chair witharms?: A little How much difficulty does the patient have: Moving from lying on back to sitting on the side of the bed?: A little How much difficulty does the patient have: Moving to and from a bed to a chair including wheelchair?: A little How much help does the patient currently need: Walk in hospital room?: A little How much help from another person does the patient currently need: Climbing 3-5 steps with a railing?: A little Total 6 Click Score (range 6-24): 19 Score Interpretation: 19 6 click interpretation: AM-PAC 6 Click scores > 18 = Likely home discharge AM-PAC 6 Click scores < 18 = Likely require inpatient rehab or usp placement at discharge APPEARANCE/POSTURE (end of session): Patient sitting upright in b/s chair, O.T. (Donna) in room getting ready to work with patient. HANDOFF: Verbal handoff given to Jerri Thompson and MAUREEN Sawyer. ALARMS: Alarms in place / inactive D/T , patient getting ready to work with O.T. and walk to bathroom. Donna made aware that chair alarm not yet turned on. EDUCATION: functional transfer training, gait training , balance training / neuromuscular re-education, safety , and role of PT evaluation RESPONSE TO EDUCATION: needs reinforcement ASSESSMENT PROBLEM LIST: decreased LE strength , impaired balance , gait instability, and decreased endurance BARRIERS TO LEARNING: Physical and Hearing BARRIERS TO DISCHARGE: Decreased endurance and Lower extremity weakness REHAB POTENTIAL/PROGNOSIS: good PLAN PT Discharge Recommendations this date: PT Recommendation/Plan: Home with 24 hour supervision, Home Health PT Patient at high risk for: Falls, Injury due to reduced functional status, Injury due to balance deficits Treatment Plan/Interventions: acute PT to address deficit areas PT Frequency during current admission: 3-5x/wk Equipment Recommendations: PT Equipment Recommended: (to be determined. states patient owns a wh walker.) Multi-Disciplinary Problems (from Physical Therapy) Active Problems Problem: PT Misc Start Date: 10/19/24 Goal Start Date Expected End Date End Date PT [facility] 1 10/19/24 10/27/24 -- Goal Details: Patient will transfer supine to/from sit with modified indep. Goal Start Date Expected End Date End Date PT [facility] 2 10/19/24 10/27/24 -- Goal Details: Patient will transfer sit to/from stand with modified indep. Goal Start Date Expected End Date End Date PT [facility] 3 10/19/24 10/27/24 -- Goal Details: Patient will amb 75' with wh walker and modified indep. Goal Start Date Expected End Date End Date PT [facility] 4 10/19/24 10/27/24 -- Goal Details: Patient will negotiate 1 step with appropriate method and cg assist. Goal Start Date Expected End Date End Date PT [facility] 5 10/19/24 10/27/24 -- Goal Details: Patient will perform ZOILA LE ROM ex with SBA. If this is the last note, please consider this the discharge summary. * Carla Jean MD - 10/19/2024 10:06 AM CDT Daily Progress Note CHIEF COMPLAINT: Shortness of breath. SUBJECTIVE: Interval History: Laying in bed, NAD. No complaints of CP, dyspnea, etc. OBJECTIVE: Vitals: 24hr Min/Max: Temp Min: 36.4 ??C (97.6 ??F) Max: 36.9 ??C (98.4 ??F) Pulse Min: 79 Max: 87 BP Min: 91/71 Max: 133/77 Resp Min: 14 Max: 24 SpO2 Min: 91 % Max: 99 % Most Recent : Vitals: 05/27/25 1730 10/18/24202710/18/24214610/19/24511 BP: 100/59 95/47 BP Location: Left arm Patient Position: Pulse: 79 80 Resp: 18 18 Temp: 36.9 ??C (98.4 ??F) 36.7 ??C (98.1 ??F) TempSrc: Oral SpO2: 94% 93% 93% Weight: Height: 170.2 cm (5' 7.01) I/O last 2 completed shifts: In: 100 [P.O.:100] Out: 2475 [Urine:2475] No intake/output data recorded. Current Facility-Administered Medications Medication Dose Route Frequency Provider Last Rate Last Admin aspirin enteric coated tablet 81 mg 81 mg oral Daily Namrata Spencer NP atenoloL (TENORMIN) tablet 50 mg 50 mg oral Daily Namrata Spencer NP atorvastatin (LIPITOR) tablet 20 mg 20 mg oral Nightly Namrata Spencer NP 20 mg at 10/18/242015 azithromycin (ZITHROMAX) 500 mg in sodium chloride 0.9% 250 mL [id number] IVPB 500 mg intravenous Q24H [facility] Namrata Spencer NP Stopped at 10/18/24 1644 calcitRIOL (ROCALTROL) capsule 0.25 mcg 0.25 mcg oral Daily Namrata Spencer NP cefTRIAXone (ROCEPHIN) 1,000 mg/10 mL in sterile water (premix) 1,000 mg 1,000 mg intravenous Q24H [facility] Namrata Spencer NP 1,000 mg at 10/18/24 1526 clorazepate (TRANXENE) tablet 7.5 mg 7.5 mg oral BID Namrata Spencer NP digoxin (LANOXIN) tablet 250 mcg 250 mcg oral Once per day on Thursday Namrata Spencer NP docusate sodium (COLACE) capsule 100 mg 100 mg oral BID PRN Namrata Spencer NP dofetilide (TIKOSYN) capsule 125 mcg 125 mcg oral BID Namrata Spencer NP 125 mcg at 10/18/242041 fenofibrate nanocrystallized (TRICOR) tablet 145 mg 145 mg oral Daily Namrata Spencer NP145 mg at 10/18/241821 fluticasone propionate (FLONASE) 50 mcg/actuation nasal spray 2 spray 2 spray each nostril Daily PRN Namrata Spencer NP furosemide (LASIX) 10 mg/mL injection 20 mg 20 mg intravenous BID DIURETIC Namrata Spencer NP ipratropium-albuteroL (DUO-NEB) 0.5-2.5 mg/3 mL nebulizer solution 3 mL 3 mL nebulization Q4H [place] (RT) Namrata Spencer NP 3 mL at 10/18/242146 levothyroxine (SYNTHROID) tablet 25 mcg 25 mcg oral Daily - 0600 Namrata Spencer NP 25 mcg at 10/19/24522 ondansetron (ZOFRAN) injection 4 mg 4 mg intravenous Q6H PRN Namrata Spencer NP pantoprazole (PROTONIX) 40 mg in sodium chloride 0.9% 10 mL IV Syringe 40 mg intravenous Q24H THERESA Namrata Spencer NP 40 mg at 10/18/241821 ramelteon (ROZEREM) tablet 8 mg 8 mg oral Nightly PRN Namrata Spencer NP 8 mg at 10/18/242041 Physical Exam: General Appearance: Alert, cooperative, no distress, appears stated age, well developed, well nourished Head: Normocephalic, without obvious abnormality, atraumatic Eyes: Conjunctiva/corneas clear, EOM's intact, both eyes, anicteric Ears: Normal external ear canals, both ears Nose: Nares normal, septum midline, mucosa normal, no drainage Throat: Lips, mucosa, and tongue normal; mucous membranes moist Neck: Supple Lungs: Clear to auscultation bilaterally, respirations unlabored Cardiovascular: Regular rate and rhythm Abdomen: Soft, non-tender, bowel sounds decr, non-distended Extremities: Extremities normal, atraumatic, no cyanosis, +2 LE edema Skin: Skin color, texture, turgor normal, no rashes Psychosocial: Normal affect and mood ASSESSMENT/PLAN: Acute hypoxic respiratory failure on admission. Differential includes CHF exacerbation, pneumonia. Congestive heart failure exacerbation on admission. 2D echo ordered. On IV Lasix. Cardiology service consulted. Moderately sized right pleural effusion with consolidations in the right upper, right lower, and right middle lobes suggestive of multifocal pneumonia, on admission CT. Respiratory PCR negative. Blood cultures are negative. Strep pneumoniae and Legionella antigens are negative. Was on azithromycin,Rocephin starting on 10/18/2024; on 10/19/2024 Rocephin was changed to Unasyn. Multiple left upper lobe pulmonary nodules largest measuring 1.1 cm, on admission CT. Dilated main pulmonary artery suggestive of pulmonary arterial hypertension, on admission CT. Severe centrilobular emphysematous changes, on admission CT. Nonspecific mild gastric wall thickening may represent pseudo-thickening from underdistention versus gastritis, on admission CT. On PPI. Atrial fibrillation, currently paced. On digoxin, will hold due to elevated level. On Tikosyn. On Coumadin, daily INRs. Hyperlipidemia. On statin, Tricor. Hypothyroidism. On Synthroid. CAD. S/p coronary artery bypass graft x two - left internal mammary artery to the left anterior descending, left radial artery to the posterior descending artery, on 02/24/1997. History of VT, status post ablation on 12/31/2015, 04/08/2016 EP study. Cardiomyopathy. Status post old dual-chamber defibrillator generator removal, new biventricular defibrillator generator implantation, left ventricular pacing lead implantation, on 08/04/2016. Hyponatremia of 133, follow. Slight hyperkalemia, resolved. CKD with creatinine of 1.83 with GFR of 36, follow. Slight thrombocytopenia of 125, follow. Elevated digoxin level of 1.3, follow. Troponin trend of 51, 54, 51, 51, with delta of 3, 0, 0; nonspecific. Prophylaxis. Protonix, Coumadin. * Delvin Mendenhall MD - 10/19/2024 9:21 AM CDT Nephrology Progress Note [facility] SUBJECTIVE Some better. Cr 2.3 CKD washburn ongoing. IV ABX,. Has PNA and CHF. OBJECTIVE Vitals: Vitals: 10/18/24 2147 10/19/24 0512 10/19/24 0742 10/19/24 0833 BP: 95/47 92/52 BP Location: Left arm Patient Position: Lying Pulse: 80 80 75 Resp: 18 Temp: 36.7 ??C (98.1 ??F) 36.2 ??C (97.2 ??F) TempSrc: Oral SpO2: 93% 93% Weight: Height: Intake/Output Summary (Last 24 hours) at 10/19/2024 0921 Last data filed at 10/19/2024 0600 Gross per 24 hour Intake 100 ml Output 2475 ml Net -2375 ml REVIEW OF SYSTEMS Review of Systems Constitutional: Negative. HENT: Negative. Eyes: Negative. Respiratory: Negative. Cardiovascular: Negative. Gastrointestinal: Negative. Genitourinary: Negative. Musculoskeletal: Negative. Skin: Negative. Allergic/Immunologic: Negative. Hematological: Negative. All other systems reviewed and are negative. PHYSICAL EXAM Physical Exam Constitutional: Appears well-developed. HENT: wnl Head: Normocephalic. Eyes: Pupils are equal, round, and reactive to light. Neck: Normal range of motion. Neck supple. Cardiovascular: Normal rate. Pulmonary/Chest: Effort normal and breath sounds normal. Abdominal: Soft. Musculoskeletal: Normal range of motion. Neurological: Alert, oriented. Skin: Skin is warm. Nursing note and vitals reviewed. MEDICATIONS Current Facility-Administered Medications: aspirin enteric coated tablet 81 mg, 81 mg, oral, Daily, Namrata Spencer NP, 81 mg at 10/19/24 0834 atenoloL (TENORMIN) tablet 50 mg, 50 mg, oral, Daily, Namrata Spencer NP, 50 mg at 10/19/24 0833 atorvastatin (LIPITOR) tablet 20 mg, 20 mg, oral, Nightly, Namrata Spencer NP, 20 mg at 10/18/242015 azithromycin (ZITHROMAX) 500 mg in sodium chloride 0.9% 250 mL [id number] IVPB, 500 mg, intravenous, Q24H THERESA, Namrata Spencer NP, Last Rate: 275 mL/hr at 10/19/24832, 500 mg at 10/19/24832 calcitRIOL (ROCALTROL) capsule 0.25 mcg, 0.25 mcg, oral, Daily, Namrata Spencer NP, 0.25mcg at 10/19/24 08 cefTRIAXone (ROCEPHIN) 1,000 mg/10 mL in sterile water (premix) 1,000 mg, 1,000 mg, intravenous, Q24H THERESA, Namrata Spencer NP, 1,000 mg at 10/19/24832 clorazepate (TRANXENE) tablet 7.5 mg, 7.5 mg, oral, BID, Namrata Spencer NP [Held by Provider] digoxin (LANOXIN) tablet 250 mcg, 250 mcg, oral, Once per day on Thursday, Namrata Spencer NP docusate sodium (COLACE) capsule 100 mg, 100 mg, oral, BID PRN, Namrata Spencer NP dofetilide (TIKOSYN) capsule 125 mcg, 125 mcg, oral, BID, Namrata Spencer NP, 125 mcg at10/19/24832 fenofibrate nanocrystallized (TRICOR) tablet 145 mg, 145 mg, oral, Daily, Namrata Spencer NP, 145 mg at 10/19/24832 fluticasone propionate (FLONASE) 50 mcg/actuation nasal spray 2 spray, 2 spray, each nostril, DailyPRN, Namrata Spencer NP furosemide (LASIX) 10 mg/mL injection 40 mg, 40 mg, intravenous, BID DIURETIC, Delvin Mendenhall MD ipratropium-albuteroL (DUO-NEB) 0.5-2.5 mg/3 mL nebulizer solution 3 mL, 3 mL, nebulization, Q4H While awake (RT), Namrata Spencer NP, 3 mL at 10/18/24 214 levothyroxine (SYNTHROID) tablet 25 mcg, 25 mcg, oral, Daily - 0600, Namrata Spencer NP,25 mcg at 10/19/24 0523 ondansetron (ZOFRAN) injection 4 mg, 4 mg, intravenous, Q6H PRN, Namrata Spencer NP pantoprazole (PROTONIX) 40 mg in sodium chloride 0.9% 10 mL IV Syringe, 40 mg, intravenous, Q24H THERESA, Namrata Spencer NP, 40 mg at 10/19/24 0833 ramelteon (ROZEREM) tablet 8 mg, 8 mg, oral, Nightly PRN, Namrata Spencer NP, 8 mg at 10/18/242041 Lab/Radiology/Diagnostic Review: Recent Results (from the past 24 hours) Comprehensive metabolic panel Collection Time: 10/18/24 10:41 AM Result Value Ref Range Sodium 132 (L) 135 - 145 mmol/L Potassium, pl 5.0 (H) 3.3 - 4.9 mmol/L Chloride 97 97 - 110 mmol/L CO2 28 22 - 32 mmol/L Anion gap 7 2 - 15 mmol/L BUN 29 (H) 6 - 25 mg/dL Creatinine 1.62 (H) 0.80 - 1.30 mg/dL Glucose 90 70 - 199 mg/dL Calcium 9.6 8.5 - 10.3 mg/dL Bilirubin, total 2.1 (H) 0.1 - 1.2 mg/dL Protein, pl 6.3 (L) 6.5 - 8.5 g/dL Albumin 3.5 3.5 - 5.0 g/dL Alk phos 52 40 - 130 Units/L ALT 15 7 - 55 Units/L AST 41 10 - 50 Units/L CBC with auto differential Collection Time: 10/18/24 10:41 AM Result Value Ref Range WBC 4.75 3.80 - 9.90 K/cumm Hgb 15.5 13.0 - 17.5 g/dL Hct 47.4 38.9 - 50.3 % Plt 132 (L) 150 - 400 K/cumm MPV 12.2 9.1 - 12.3 fL RBC 4.95 4.30 - 5.80 M/cumm MCV 95.8 81.3 - 96.4 fL MCH 31.3 27.1 - 33.3 pg MCHC 32.7 32.3 - 35.7 g/dL RDW CV 17.1 (H) 11.1 - 14.9 % RDW SD 59.9 (H) 35.7 - 48.1 fL NRBC abs 0.00 0.00 - 0.01 K/cumm Troponin T high-sensitivity series (baseline, 2hr, 4hr, 6hr) Collection Time: 10/18/24 10:41 AM Result Value Ref Range Trop T hs 51 (H) <=22 ng/L Respiratory pathogen panel Nasopharyngeal Collection Time: 10/18/24 10:41 AM Specimen: Nasopharyngeal Result Value Ref Range Influenza A RNA Not Detected Not Detected Influenza B RNA Not Detected Not Detected RSV RNA Not Detected Not Detected COVID-19 RNA Not Detected Not Detected Coronavirus 229E RNA Not Detected Not Detected Coronavirus HKU1 RNA Not Detected Not Detected Coronavirus NL63 RNA Not Detected Not Detected Coronavirus OC43 RNA Not Detected Not Detected Adenovirus DNA Not Detected Not Detected Metapneumovirus RNA Not Detected Not Detected Rhinovirus/Enterovirus RNA Not Detected Not Detected Parainfluenza 1 RNA Not Detected Not Detected Parainfluenza 2 RNA Not Detected Not Detected Parainfluenza 3 RNA Not Detected Not Detected Parainfluenza 4 RNA Not Detected Not Detected B. pertussis DNA Not Detected Not Detected B. parapertussis DNA Not Detected Not Detected C. pneumoniae DNA Not Detected Not Detected M. pneumoniae DNA Not Detected Not Detected Lactate Collection Time: 10/18/24 10:41 AM Result Value Ref Range Lactate 1.3 0.7 - 2.0 mmol/L Differential, auto Collection Time: 10/18/24 10:41 AM Result Value Ref Range Neutrophil abs 3.39 1.50 - 6.50 K/cumm Imm gran abs 0.01 0.00 - 0.10 K/cumm Lymphocyte abs 0.86 0.80 - 3.30 K/cumm Monocyte abs 0.44 0.20 - 0.80 K/cumm Eosinophil abs 0.03 0.00 - 0.50 K/cumm Basophil abs 0.02 0.00 - 0.10 K/cumm Neutrophil pct 71.4 % Imm gran pct 0.2 % Lymphocyte pct 18.1 % Monocyte pct 9.3 % Eosinophil pct 0.6 % Basophil pct 0.4 % eGFR Collection Time: 10/18/24 10:41 AM Result Value Ref Range eGFR 42 (L) >=60 mL/min/1.73 m2 Troponin T high-sensitivity 2-hour Collection Time: 10/18/24 12:26 PM Result Value Ref Range Trop T hs 54 (H) <=22 ng/L Trop T hs delta 3 ng/L Trop T hs interp Insignificant Pro B-type natriuretic peptide Collection Time: 10/18/24 12:26 PM Result Value Ref Range NT-proBNP 8,636 (H) <=450 pg/mL Blood culture Blood Peripheral Collection Time: 10/18/24 1:28 PM Specimen: Peripheral; Blood Result Value Ref Range Report Preliminary Report: No growth to date. Blood culture Blood Peripheral Collection Time: 10/18/24 1:28 PM Specimen: Peripheral; Blood Result Value Ref Range Report Preliminary Report: No growth to date. Troponin T high-sensitivity 4-hour Collection Time: 10/18/24 2:42 PM Result Value Ref Range Trop T hs 51 (H) <=22 ng/L Trop T hs delta 0 ng/L Trop T hs interp Insignificant Troponin T high-sensitivity 6-hour Collection Time: 10/18/24 4:32 PM Result Value Ref Range Trop T hs 51 (H) <=22 ng/L Trop T hs delta 0 ng/L Trop T hs interp Insignificant Digoxin level Collection Time: 10/18/24 4:32 PM Result Value Ref Range Digoxin 1.3 (H) 0.5 - 1.2 ng/mL Magnesium Collection Time: 10/19/24 5:12 AM Result Value Ref Range Magnesium 2.0 1.4 - 2.5 mg/dL CBC with auto differential Collection Time: 10/19/24 5:12 AM Result Value Ref Range WBC 5.02 3.80 - 9.90 K/cumm Hgb 15.5 13.0 - 17.5 g/dL Hct 48.5 38.9 - 50.3 % Plt 125 (L) 150 - 400 K/cumm MPV 11.4 9.1 - 12.3 fL RBC 5.03 4.30 - 5.80 M/cumm MCV 96.4 81.3 - 96.4 fL MCH 30.8 27.1 - 33.3 pg MCHC 32.0 (L) 32.3 - 35.7 g/dL RDW CV 17.0 (H) 11.1 - 14.9 % RDW SD 59.9 (H) 35.7 - 48.1 fL NRBC abs 0.00 0.00 - 0.01 K/cumm Basic metabolic panel Collection Time: 10/19/24 5:12 AM Result Value Ref Range Sodium 133 (L) 135 - 145 mmol/L Potassium, pl 4.8 3.3 - 4.9 mmol/L Chloride 96 (L) 97 - 110 mmol/L CO2 30 22 - 32 mmol/L Anion gap 7 2 - 15 mmol/L BUN 35 (H) 6 - 25 mg/dL Creatinine 1.83 (H) 0.80 - 1.30 mg/dL Glucose 87 70 - 199 mg/dL Calcium 9.2 8.5 - 10.3 mg/dL Protime-INR Collection Time: 10/19/24 5:12 AM Result Value Ref Range PT 34.7 (H) 9.7 - 13.0 sec INR 3.14 (H) 0.90 - 1.20 Differential, auto Collection Time: 10/19/24 5:12 AM Result Value Ref Range Neutrophil abs 3.68 1.50 - 6.50 K/cumm Imm gran abs 0.02 0.00 - 0.10 K/cumm Lymphocyte abs 0.73 (L) 0.80 - 3.30 K/cumm Monocyte abs 0.49 0.20 - 0.80 K/cumm Eosinophil abs 0.07 0.00 - 0.50 K/cumm Basophil abs 0.03 0.00 - 0.10 K/cumm Neutrophil pct 73.3 % Imm gran pct 0.4 % Lymphocyte pct 14.5 % Monocyte pct 9.8 % Eosinophil pct 1.4 % Basophil pct 0.6 % eGFR Collection Time: 10/19/24 5:12 AM Result Value Ref Range eGFR 36 (L) >=60 mL/min/1.[address] Chest WO Contrast Result Date: 10/18/2024 Narrative: EXAMINATION: Computed tomography of the chest without intravenous contrast HISTORY: Abnormal chest radiograph. TECHNIQUE: Transaxial computed tomographic images of the chest were obtained without intravenous contrast according to the standard protocol. COMPARISON: Chest radiograph dated same day. FINDINGS: There is a moderately sized right pleural effusion with fluid in the right majorfissure and right upper, middle, and lower lobe consolidations most notable in the right lower lobe. Small left pleural effusion with left lower lobe atelectasis. Severe centrilobular emphysematous changes. Poststernotomy changes. Mild mediastinal lymphadenopathy with largest mediastinal node measur ing 1.1 cm in short axis dimension. Nodules in the left upper lobe, largest measuring approximately1.1 x 0.5 cm. Follow-up suggested. Main pulmonary [...] may represent pseudo-thickening from underdistention versus gastritis. Impression: 1. Moderately sized right pleural effusion with [...] Electronically signed by: Rajendra Oh II, D.O. ECG 12 lead Result Date: 10/18/2024 Narrative: Vent Rate: 80 bpm RR Interval: 749 msec RI Interval: 140 msec QRS Duration: 164 msec QT Interval: 377 msec QTC Interval: 412 msec P-R-T [place]: -52 - 226 - 226 degrees IMPRESSION: ELECTRONICVENTRICULAR PACEMAKER ST DEPRESSION, CONSIDER SUBENDOCARDIAL INJURY [0.1+ mV ST DEPRESSION] ABNORMAL ECG No change compared to prior EKG Electronically Signed By: Emilio SAINZ XR Chest 1 Vw Portable Result Date: 10/18/2024 Narrative: EXAMINATION: XR CHEST 1 VIEW DATE: 10/18/2024 11:20 AM INDICATION: Shortness of breath. COMPARISON: 02/23/2023. Impression: ICD leads are intact. Post sternotomy changes are noted. Cardiac mediastinal silhouettewithin normal limits. There is a small right pleural effusion. Opacities in the right lower lobe suggestive of pneumonia, increased from prior. Follow-up suggested to ensure resolution. No acute osseous abnormality. Electronically signed by: Noah Medrano IIO. ASSESSMENT/PLAN CKD 3b CRS. CHF/dyspnea. R LL PNA. MBD. ICD status. RECOMMENDATIONS IV diuresis. CKD washburn. Overall improved. I can be reached at [phone] with any concerns. Thank you Carla Jean MD for the consult. Delvin Mendenhall MD [employer] [phone] * Donte Camacho MD - 10/19/2024 7:40 AM CDT Pertinent information was reviewed full cardiology note to follow * Yadira Isaac RRT - 10/19/2024 5:23 AM CDT Inhaled Bronchodilator Therapy Patient assessed and scored per the established inhaled bronchodilator protocol criteria. Patient preference and subjective response to therapy used in conjunction with patient score to provide current aerosol therapy. Bronchodilator Therapy Duonebs given Q4wa per physician order. Breath Sounds: diminished. The patient tolerates the treatment well with good technique. Oxygen Therapy Patient is being managed on oxygen titration protocol. Wean FiO2 to maintain SpO2 >92%. Yadira Isaac RRT * Bravo Causey RP - 10/18/2024 7:49 PM CDT Pharmacokinetic Consult - Anticoagulation Dosing Ian Monsalve is a 84 y.o. male who has been consulted for pharmacy warfarin dosing and monitoring. Current Hematologic Labs INR Date Value Ref Range Status 02/24/2023 2.90 (H) 0.90 - 1.20 Final Comment: Interpretive data Oral anticoagulant therapeutic ranges: Venous thromboembolism prophylaxis or treatment: 2.0-3.0 CARDIOLOGY Standard range: 2.0-3.0 High-intensity range: 2.5-3.5 Refer to indication-specific guidelines for appropriate target ranges for prosthetic heart valve replacement. Current interpretive data was last revised on 2019. 02/23/2023 3.08 (H) 0.90 - 1.20 Final Comment: Interpretive data Oral anticoagulant therapeutic ranges: Venous thromboembolism prophylaxis or treatment: 2.0-3.0 CARDIOLOGY Standard range: 2.0-3.0 High-intensity range: 2.5-3.5 Refer to indication-specific guidelines for appropriate target ranges for prosthetic heart valve replacement. Current interpretive data was last revised on 2019. 04/08/2016 1.62 (H) 0.90 - 1.20 12/31/2015 2.09 (H) 0.90 - 1.20 12/04/2015 1.07 0.90 - 1.20 Hgb Date Value Ref Range Status 10/18/2024 15.5 13.0 - 17.5 g/dL Final Hct Date Value Ref Range Status 10/18/2024 47.4 38.9 - 50.3 % Final Plt Date Value Ref Range Status 10/18/2024 132 (L) 150 - 400 K/cumm Final No results found for: PTT Assessment Patient was admitted on warfarin with a dose of 2 mg on Thursday and 1 mg all other days (Thu to Thu). Patient is on warfarin for an indication of atrial fibrillation. Goal INR is 2-3. Potential interacting medications: ceftriaxone and azithromycin (could potentially increase INR) Plan Date INR Dose given Comments 10/18 2mg Patient already took dose at home. Daily INR ordered Will continue to follow patient's clinical progress daily. Bravo Causey RPh * Cata Jones RPh - 10/18/2024 5:32 PM CDT Pharmacy Medication Adjustment Ian Monsalve meets P&T-approved criteria for adjustment of medication therapy. Enoxaparin Current regimen: 30 mg qhs New regimen: 40 mg qhs Lab Results Component Value Date/Time CREATININE 1.62 (H) 10/18/2024 10:41 AM BUNSER 29 (H) 10/18/2024 10:41 AM Estimated Creatinine Clearance: 31.7 mL/min (A) (by C-G 65 yr and older- minimum SCr 0.8 based on SCr of 1.62 mg/dL (H)). Patient Weight 10/18/24 78.5 kg (173 lb) Body mass index is 27.09 kg/m??. Cata Jones, PharmCarol * AdelinaHerminio Rolando - 10/18/2024 4:07 PM CDT Pharmacy Medication Reconciliation Note Patient Ian Monsalve is a 84 y.o. [id number] [address] The prior to admission home medication list was reviewed by pharmacy. Current Outpatient Medications Medication Sig aspirin 81 mg enteric coated tablet Take 1 tablet (81 mg total) by mouth daily atenoloL (TENORMIN) 50 mg tablet Take 1 tablet (50 mg total) by mouth daily atorvastatin (LIPITOR) 20 mg tablet Take 1 tablet (20 mg total) by mouth nightly clorazepate (TRANXENE) 15 mg tablet Take 0.5 tablets (7.5 mg total) by mouth 2 (two) times a day digoxin (LANOXIN) 250 mcg (0.25 mg) tablet Take 1 tablet (250 mcg total) by mouth 3 (three) times aweek on Thu, Thu, Thu fenofibrate nanocrystallized (TRICOR) 145 mg tablet Take 1 tablet (145 mg total) by mouth daily fluticasone propionate (Flonase Allergy Relief) 50 mcg/actuation nasal spray Administer 2 sprays into each nostril daily as needed for rhinitis or allergies levothyroxine (SYNTHROID) 25 mcg tablet Take 1 tablet (25 mcg total) 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 Tikosyn 125 mcg capsule Take 1 capsule (125 mcg total) by mouth 2 (two) times a day warfarin (COUMADIN) 2 mg tablet Take 1 tablet (2 mg total) by mouth once a week on Tuesdays warfarin (COUMADIN) 2 mg tablet Take 0.5 tablets (1 mg total) by mouth 6 (six) times a week from Thursday to Thursday calcitRIOL (ROCALTROL) 0.25 mcg capsule Take 1 capsule (0.25 mcg total) by mouth daily ergocalciferol (VITAMIN D) 50,000 unit capsule Take 1 capsule (50,000 Units total) by mouth once a week on Sat The patient???s home medication list has been reconciled and updated as follows: - Orders from medication that were removed because the patient is no longer taking: Lasix Lisinopril Mag Oxide Multivitamin Sertraline - Orders that the patient is taking at home were added to the home medication list: Calcitriol Digoxin Dofetilide Vit D2 - Orders on the medication list that the patient is taking differently (doses/frequency/formulation): Warfarin 2 mg 1 tab PO Qweekly () + Warfarin 2 mg 0.5 tab PO 6x weekly (Thu- Thu) (was previously warfarin 5 mg 0.5 tab PO daily) - Additional comments/recommendations: Patient was a sufficient historian; spouse was present during encounter, was a proficient historian, brought patient's medication list with her to aid in medication reconciliation. Was able to confirm all medications taking/not taking along with dosages, frequencies, and last doses prior to ED arrival. 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 Also mentions that patient has difficulty fully urinatingsince d/c Lasix Patient's spouse expresses that patient has proper adherence to current medication regimen. Also states that patient has some upcoming visits with providers that can potentially yield changes in medication regimen. Sources of information for this medication reconciliation include: family member, medication list, patient, and prescription fill history Josy Reeves RPh 10/18/2024 5:44 PM Cosigned by Josy Reeves RPh at 10/18/2024 5:44 PM CDT Associated attestation - [facility]eves[facility] - 10/18/2024 5:44 PM CDT Pharmacist reviewed patient's medication history as completed by pharmacy cashier and verified accuracy and completeness. Documentation updated accordingly. Josynubia Reeves [facility] 10/18/2024 5:44 PM documented in this encounter H&P Notes * Namrata Spencer, ZACHERY - 10/18/2024 5:36 PM CDT History and Physical CHIEF COMPLAINT Chief Complaint Patient presents with Shortness of Breath HPI Patient is a 84 y.o. 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 Patient reports shortness of breath started 7 days ago and progressively got worse. EMS was called for further evaluation. On EMS arrival, patient was noted to be satting in the 70s on room air. 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 Patient also endorses poor appetite associated with generalized weakness. Ambulates with a cane at baseline. Also reports occasional productive cough with clear phlegm. Denies any other associated symptoms. Reports compliance with his home medications. On arrival to Emergency Room, vital signs, temp 97.6??, pulse 80, respiration 24, BP 121/81, O2 sats 99%. Labs, sodium 132, potassium 5.0, creatinine 1.62, BUN 29, proBNP 8,636, PLT 132. Initial troponin slightly elevated with insignificant delta.Paced rhythm on EKG. Respiratory panel negative. CT chest showing moderately sized right pleural effusion with consolidation in the right upper, right lower and right middle lobe suggestive of multifocal pneumonia. Multiple left upper lobe pulmonary nodules. Dilated main pulmonary artery suggestive of pulmonary arterial hypertension. Severe centrilobular emphysema toes changes. Nonspecific mild gastric wall thickening may represent pseudo thickening from under distention versus gastritis. Due to above, patient will be admitted for further evaluation, care and management. PAST MEDICAL HISTORY Atrial fibrillation s/p multiple ablations CHF Deafness to right ear, PAMUNKEY CKD CAD s/p CABG Ischemic cardiomyopathy s/p BIV ICD PAST SURGICAL HISTORY No past surgical history on file. ALLERGIES Allergies Allergen Reactions Trazodone Hcl Unknown Morphine Hydrocodone Unknown Lunesta [Eszopiclone] Other (See comments) Gave him crazy dreams Tramadol Nausea only Vicodin [Hydrocodone-Acetaminophen] Nausea only FAMILY HISTORY family history is not on file. SOCIAL HISTORY Patient resides at home with . Denies EtOH use, tobacco use or use of illicit street drug use. HOME MEDICATIONS Prior to Admission medications Medication Sig Start Date End Date Taking? Authorizing Provider aspirin 81 mg enteric coated tablet Take 1 tablet (81 mg total) by mouth daily 12/07/15 Yes José Jama MD atenoloL (TENORMIN) 50 mg tablet Take 1 tablet (50 mg total) by mouth daily 07/30/22 Yes José Jama MD atorvastatin (LIPITOR) 20 mg tablet Take 1 tablet (20 mg total) by mouth nightly 10/24/22 Yes José Jama MD calcitRIOL (ROCALTROL) 0.25 mcg capsule Take 1 capsule (0.25 mcg total) by mouth daily Yes José Jama MD clorazepate (TRANXENE) 15 mg tablet Take 0.5 tablets (7.5 mg total) by mouth 2 (two) times a day Yes José Jama MD digoxin (LANOXIN) 250 mcg (0.25 mg) tablet Take 1 tablet (250 mcg total) by mouth 3 (three) times aweek on Mon, Wed, Fri 10/07/24 Yes José Jama MD ergocalciferol (VITAMIN D) 50,000 unit capsule Take 1 capsule (50,000 Units total) by mouth once a week on Thu Yes José Jama MD fenofibrate nanocrystallized (TRICOR) 145 mg tablet Take 1 tablet (145 mg total) by mouth daily 10/25/21 Yes José Jama MD fluticasone propionate (Flonase Allergy Relief) 50 mcg/actuation nasal spray Administer 2 sprays into each nostril daily as needed for rhinitis or allergies 02/01/16 Yes José Jama MD levothyroxine (SYNTHROID) 25 mcg tablet Take 1 tablet (25 mcg total) 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 01/07/19 Yes José Jama MD Tikosyn 125 mcg capsule Take 1 capsule (125 mcg total) by mouth 2 (two) times a day 10/07/24 Yes José Jama MD warfarin (COUMADIN) 2 mg tablet Take 1 tablet (2 mg total) by mouth once a week on Tuesdays Yes José Jama MD warfarin (COUMADIN) 2 mg tablet Take 0.5 tablets (1 mg total) by mouth 6 (six) times a week from Thursday to Thursday Yes José Jama MD furosemide (LASIX) 40 mg tablet Take 0.5 tablets (20 mg total) by mouth daily 04/05/19 10/18/24 José Jama MD lisinopriL (PRINIVIL,ZESTRIL) 5 mg tablet Take 1 tablet (5 mg total) by mouth daily 07/12/22 10/18/24ProJosé kitchen MD magnesium oxide (MAG-OX) 400 mg (241.3 mg elemental magnesium) tablet Take 1 tablet (400 mg total) by mouth daily 10/18/24 José Jama MD multivit gdzlanrv-fzhl-NH-calcium (THERA-M) 9 mg iron-400 mcg tablet Take 1 tablet by mouth daily 10/18/24 José Jama MD sertraline (ZOLOFT) 25 mg tablet Take 1 tablet (25 mg total) by mouth daily 10/18/24 José Jama MD warfarin (COUMADIN) 5 mg tablet Take 0.5 tablets (2.5 mg total) by mouth daily 10/18/24 José Jama MD REVIEW OF SYSTEMS 14 point review of systems is negative except for what I have already mentioned above in the history of present illness. OBJECTIVE Temp Av.5 ??C (97.7 ??F) Min: 36.4 ??C (97.6 ??F) Max: 36.5 ??C (97.7 ??F) BP Min: 91/71 Max: 133/77 Pulse Av.3 Min: 80 Max: 87 Resp Av.9 Min: 14 Max: 24 SpO2 Av.7 % Min: 91 % Max: 99 % O2 Flow Rate (L/min): 2 L/min No intake/output data recorded. Weight: Wt Readings from Last 1 Encounters: 10/18/24 78.5 kg (173 lb) PHYSICAL EXAM General: This is a 84 y.o. male in no acute distress. Head: Normocephalic, atraumatic. Eyes: No conjunctival injection. Nasal cavity is patent. Throat is clear. Mucus membranes are pink and moist without bleeding. Neck: Supple. No JVD. No lymphadenopathy. Trachea is in the midline position. Lungs:Diminished breath sounds bilaterally. No wheezing auscultated. Heart: S1 and S2. No murmur auscultated. Abdomen: Round, soft, nontender. Bowel sounds are present in all four quadrants. Extremities: No cyanosis, ZOILA LE swelling Neuro: Patient is awake and alert x 3. Speech is clear and coherent. Psychiatric: Normal mood and affect. Behavior is normal. Skin: Warm and dry. No rashes or lesions. LAB/RADIOLOGY/DIAGNOSTIC: Recent Labs Lab Units 10/18/24 1041 WBC K/cumm 4.75 HEMOGLOBIN g/dL 15.5 HEMATOCRIT % 47.4 PLATELETS K/cumm 132* NEUTROS PCT % 71.4 LYMPHS PCT % 18.1 MONOS PCT % 9.3 EOS PCT % 0.6 Recent Labs Lab Units 10/18/24 1041 SODIUM mmol/L 132* POTASSIUM PLASMA mmol/L 5.0* CHLORIDE mmol/L 97 CO2 mmol/L 28 ANIONGAP mmol/L 7 GLUCOSE mg/dL 90 BUN SERUM mg/dL 29* CREATININE mg/dL 1.62* CALCIUM mg/dL 9.6 ALBUMIN g/dL 3.5 ALK PHOS Units/L 52 ALT Units/L 15 AST Units/L 41 BILIRUBIN TOTAL mg/dL 2.1* No results found for: TROPONINI No results found for: BNP Lab Results Component Value Date TSH 3.54 02/24/2023 LAB TREND CBC: Lab Results Component Value Date WBC 4.75 10/18/2024 HGB 15.5 10/18/2024 HCT 47.4 10/18/2024 BMP: Lab Results Component Value Date SODIUM 132 (L) 10/18/2024 POTASSIUM 5.0 (H) 10/18/2024 CHLORIDE 97 10/18/2024 CREATININE 1.62 (H) 10/18/2024 CALCIUM 9.6 10/18/2024 No results found for: BNP Lab Results Component Value Date ALKPHOS 52 10/18/2024 No results found for: MAGNESIUM Lab Results Component Value Date AST 41 10/18/2024 Lab Results Component Value Date ALT 15 10/18/2024 Radiology: CT Chest WO Contrast Result Date: 10/18/2024 Narrative: EXAMINATION: Computed tomography of the chest without intravenous contrast HISTORY: Abnormal chest radiograph. TECHNIQUE: Transaxial computed tomographic images of the chest were obtained without intravenous contrast according to the standard protocol. COMPARISON: Chest radiograph dated same day. FINDINGS: There is a moderately sized right pleural effusion with fluid in the right majorfissure and right upper, middle, and lower lobe consolidations most notable in the right lower lobe. Small left pleural effusion with left lower lobe atelectasis. Severe centrilobular emphysematous changes. Poststernotomy changes. Mild mediastinal lymphadenopathy with largest mediastinal node measur ing 1.1 cm in short axis dimension. Nodules in the left upper lobe, largest measuring approximately1.1 x 0.5 cm. Follow-up suggested. Main pulmonary [...] may represent pseudo-thickening from underdistention versus gastritis. Impression: 1. Moderately sized right pleural effusion with [...] Electronically signed by: Rajendra Oh II, D.O. ECG 12 lead Result Date: 10/18/2024 Narrative: Vent Rate: 80 bpm RR Interval: 749 msec RI Interval: 140 msec QRS Duration: 164 msec QT Interval: 377 msec QTC Interval: 412 msec P-R-T [place]: -52 - 226 - 226 degrees IMPRESSION: ELECTRONICVENTRICULAR PACEMAKER ST DEPRESSION, CONSIDER SUBENDOCARDIAL INJURY [0.1+ mV ST DEPRESSION] ABNORMAL ECG No change compared to prior EKG Electronically Signed By: Emilio SAINZ XR Chest 1 Vw Portable Result Date: 10/18/2024 Narrative: EXAMINATION: XR CHEST 1 VIEW DATE: 10/18/2024 11:20 AM INDICATION: Shortness of breath. COMPARISON: 02/23/2023. Impression: ICD leads are intact. Post sternotomy changes are noted. Cardiac mediastinal silhouettewithin normal limits. There is a small right pleural effusion. Opacities in the right lower lobe suggestive of pneumonia, increased from prior. Follow-up suggested to ensure resolution. No acute osseous abnormality. Electronically signed by: Rajendra Oh II, D.O. EKG: Results for orders placed during the hospital encounter of 10/18/24 ECG 12 lead Narrative Vent Rate: 80 bpm RR Interval: 749 msec RI Interval: 140 msec QRS Duration: 164 msec QT Interval: 377 msec QTC Interval: 412 msec P-R-T [place]: -52 - 226 - 226 degrees IMPRESSION: ELECTRONIC VENTRICULAR PACEMAKER ST DEPRESSION, CONSIDER SUBENDOCARDIAL INJURY [0.1+ mV ST DEPRESSION] ABNORMAL ECG No change compared to prior EKG Electronically Signed By: Emilio Ratliff MD [facility] ASSESSMENT AND PLAN All Diagnosis Present on Admission Present on Admission: Acute hypoxemic respiratory failure -Likely 2/2 CHF exacerbation/pneumonia -CT results as noted above -Currently on oxygen 4 L NC -Continue O2. Wean as tolerated -Bronchodilator therapy -Pulmonary consult CHF exacerbation, combined -With ischemic cardiomyopathy -S/p BIV ICD implantation -proBNP 8,636 on admission -Pleural effusion on the CT -Continue IV Lasix atenolol, strict I&Os, daily weights -Cardiology consult Multifocal pneumonia -consolidation in the right upper, right lower and right middle lobe suggestive of multifocal pneumonia -Continue IV ceftriaxone, azithromycin Pulmonary nodules -Multiple left upper lobe pulmonary nodules -Further recommendation per Pulmonary Generalized weakness -PT/OT Hypertension -Continue atenolol, Lasix Hard of hearing -Deaf to the R ear and hearing aid to the L ear -Continue supportive care with ADLs Hyperlipidemia -Continue statins Hypothyroidism -Continue levothyroxine Hyperkalemia, POA -Monitor BMP and re-evaluate Pulmonary hypertension -Dilated main pulmonary artery suggestive of pulmonary arterial hypertension per CT -Recommendation per Pulmonary CAD -S/p CABG -Continue ASA, statins CKD -Creatinine 1.62 -Avoid nephrotoxins -Nephrology consult Mild hyponatremia -Monitor BMP and re-evaluate History of V-tach Atrial fibrillation -S/p ablation; paced rhythm on EKG -Continue digoxin, Tikosyn -Warfarin dosing per pharmacy Mild thrombocytopenia -Appears chronic -Trend levels DVT and GI prophylaxis initiated. CONSULTS IP CONSULT TO NEPHROLOGY IP CONSULT TO CARDIOLOGY Code Status: Full Code Anticipated date of discharge: To be determined per hospital course Namrata Spencer NP 10/18/2024 5:36 PM [facility] Primary Care Physician: Sofie Kelly MD Voice recognition software [employer] was used dictate and transcribe this document. [employer] variances may occur. Despite proofreading, typographical errors may occur. Cosigned by Souleymane Quinn MD at 10/24/2024 3:58 PM CDT documented in this encounter Consult Notes * Rhoda Lacy NP - 10/24/2024 8:37 AM CDTAssociated Order(s): IP CONSULT TO UROLOGY; IP CONSULT TO UROLOGY Urology Consult Reason for Consult: continued gross hematuria. Requesting Physician: Delvin Mendenhall MD Consulting Physician: Dr. Narayanan Subjective Ian Monsalve is a 84 y.o. male with a past medical history significant for an enlarged prostate, atrial fibrillation on warfarin who we have been asked to see in consultation for gross hematuria. Patient presented to [facility] ER on 10/18/2024 from home with complaints of worsening shortness of breath over the past 7 days. Oxygen saturation in the home with 70% on room air. He is admitted undergoing treatment for acute CHF, CKD and pneumoniae. Patient has no history of bothersome lower urinary tract symptoms. He has a history of an enlarged prostate that did not require medication management. He experienced urinary retention with bladder scans ranging from 375-743 cc. He was straight cath'd and eventually a Guerrero catheter was placed. He began to experience gross hematuria with clot retention and the Guerrero catheter was exchanged. Tamsulosin was initiated on 10/23/2024. I discussed his condition with Dr. Guillermo at the bedside who explains that the hematuria has improved. No past medical history on file. Past Surgical History: Procedure Laterality Date CHOLECYSTECTOMY Social History Tobacco Use Smoking status: Former Current packs/day: 0.00 Types: Cigarettes Start date: 1955 Quit date: 1997 Years since quittin.4 Passive exposure: Past Smokeless tobacco: Never Substance and Sexual Activity Drug use: Not on file Sexual activity: Not on file Alcohol Use: Unknown (02/23/2023) AUDIT-C Frequency of Alcohol Consumption: Not on file Average Number of Drinks: Patient does not drink Frequency of Binge Drinking: Not on file No family history on file. Medications Prior to Admission Medication Sig Dispense Refill Last Dose/Taking aspirin 81 mg enteric coated tablet Take 1 tablet (81 mg total) by mouth daily 10/18/2024 Morning atenoloL (TENORMIN) 50 mg tablet Take 1 tablet (50 mg total) by mouth daily 10/17/2024 atorvastatin (LIPITOR) 20 mg tablet Take 1 tablet (20 mg total) by mouth nightly 10/17/2024 Bedtime calcitRIOL (ROCALTROL) 0.25 mcg capsule Take 1 capsule (0.25 mcg total) by mouth daily 10/18/2024 Morning clorazepate (TRANXENE) 15 mg tablet Take 0.5 tablets (7.5 mg total) by mouth 2 (two) times a day 10/18/2024 Morning digoxin (LANOXIN) 250 mcg (0.25 mg) tablet Take 1 tablet (250 mcg total) by mouth 3 (three) times aweek on Mon, Wed, Fri 10/17/2024 ergocalciferol (VITAMIN D) 50,000 unit capsule Take 1 capsule (50,000 Units total) by mouth once a week on Sat Past Week fenofibrate nanocrystallized (TRICOR) 145 mg tablet Take 1 tablet (145 mg total) by mouth daily 10/17/2024 fluticasone propionate (Flonase Allergy Relief) 50 mcg/actuation nasal spray Administer 2 sprays into each nostril daily as needed for rhinitis or allergies Past Week levothyroxine (SYNTHROID) 25 mcg tablet Take 1 tablet (25 mcg total) 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 10/18/2024 Morning Tikosyn 125 mcg capsule Take 1 capsule (125 mcg total) by mouth 2 (two) times a day 10/18/2024 Morning warfarin (COUMADIN) 2 mg tablet Take 1 tablet (2 mg total) by mouth once a week on Tuesdays10/18/2024 Morning warfarin (COUMADIN) 2 mg tablet Take 0.5 tablets (1 mg total) by mouth 6 (six) times a week from Thursday to Thursday10/17/2024 Morning Allergies Allergen Reactions Trazodone Hcl Unknown Morphine Hydrocodone Unknown Lunesta [Eszopiclone] Other (See comments) Gave him crazy dreams Tramadol Nausea only Vicodin [Hydrocodone-Acetaminophen] Nausea only Review of Systems: All other systems except the HPI are negative. Vitals: Most Recent : Vitals: 10/24/24 0732 BP: 102/57 Pulse: 80 Resp: 16 Temp: 36.9 ??C (98.4 ??F) SpO2: (!) 87% I/O last 2 completed shifts: In: - Out: 1899 [Urine:1899] Objective Physical Exam: General: does not appear in acute distress Head: normocephalic/atraumatic Eyes: no discharge noted; (R,L) extraocular movements are intact Ears: (R,L) hearing grossly normal Nose/Mouth/Throat: mucous membranes moist Neck: neck inspection is normal; neck ROM normal Respiratory: has normal respiratory effort with no respiratory distress noted Exam: indwelling Guerrero catheter is patent draining tea colored urine Neurology: patient is alert and oriented Mood: has normal mood and affect Lab/Radiology/Diagnostic Review: Laboratory review: Chemistry BMP Lab Results Component Value Date GLUCOSE 96 10/24/2024 CALCIUM 8.4 (L) 10/24/2024 SODIUM 132 (L) 10/24/2024 POTASSIUM 4.2 10/24/2024 CO2 32 10/24/2024 BUNSER 46 (H) 10/24/2024 CREATININE 1.90 (H) 10/24/2024 and CBC: Lab Results Component Value Date WBC 3.81 10/24/2024 RBC 4.08 (L) 10/24/2024 HGB 12.8 (L) 10/24/2024 HCT 38.2 (L) 10/24/2024 MCV 93.6 10/24/2024 MCH 31.4 10/24/2024 MCHC 33.5 10/24/2024 RDWCV 16.3 (H) 10/24/2024 RDWSD 55.5 (H) 10/24/2024 MPV 12.3 10/24/2024 NRBCABS 0.00 10/24/2024 XR Chest 1 Vw Portable Result Date: 10/23/2024 Persistent right effusion with patchy right lower lobe consolidation. Electronically signed by: Perla Cowart M.D. CT Abdomen Pelvis WO Contrast Result Date: 10/21/2024 Limited study secondary to lack of intravenous contrast. No acute intra- abdominal abnormality. Colonic diverticulosis. Bilateral pleural effusions and bilateral lower lobe atelectasis. 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 Electronically signed by: Neel Morrison M.D. US Retroperitoneal Complete Result Date: 10/19/2024 1. Possible mass in the right kidney measuring up to 1.4 cm. Suggest MRI of the kidneys for furtherevaluation. 2. Enlarged prostate. Electronically signed by: Rajendra Oh II, D.O. CT Chest WO Contrast Result Date: 10/18/2024 1. Moderately sized right pleural effusion with consolidations in the right upper, right lower, andright middle lobes suggestive of multifocal pneumonia. 2. Multiple left upper lobe pulmonary nodules largest measuring 1.1 cm. Short interval follow-up suggested. 3. Dilated main pulmonary artery suggestive of pulmonary arterial hypertension. 4. Severe centrilobular emphysematous changes. 5. Nonspecific mild gastric wall thickening may represent pseudo-thickening from underdistention versus gastritis. Electronically signed by: Rajendra Oh II, D.O. XR Chest 1 Vw Portable Result Date: 10/18/2024 ICD leads are intact. Post sternotomy changes are noted. Cardiac mediastinal silhouette within normal limits. There is a small right pleural effusion. Opacities in the right lower lobe suggestive of pneumonia, increased from prior. Follow-up suggested to ensure resolution. No acute osseous abnormality. Electronically signed by: Rajendra Oh II, D.O. I have personally reviewed and independently examined the CT report. Assessment: Principal Problem: Acute congestive heart failure, unspecified heart failure type (HCC) Ian Monsalve is a 84 y.o. male with acute urinary retention with gross hematuria. Hematuria occurred after placement of the Guerrero catheter placement, therefore, I do not recommend a hematuria workup at this time. A. This is likely multifactorial. Common precipitating factors for provoked AUR include cystitis, large fluid intake, cold exposure, alcohol ingestion, traveling, severe constipation, urethral instrumentation, bladder over distension, pain and general or spinal anesthesia. (Initial Evaluation and Ma nagement of Acute Urinary Retention, Lesson 10, Volume 35, AUA Update Series) B. Additional etiologies for chronic urinary retention include diabetic cystopathy, enlarged prostate, atonic / neurogenic bladder. Plan: Urinary retention is a common occurrence in hospitalized patients, and it is managed routinely withbladder drainage of some variety. Continue tamsulosin once daily. Continue to monitor urinary output and provide catheter care Recommend to discharge to home with the indwelling Guerrero catheter. 4. Patient should follow-up in 7-10 days for trial of void as outpatient. 5. Continue to monitor for gross hematuria. Okay to irrigate the catheter with 60 cc of saline prn to prevent or aspirate clots. We will continue to monitor peripherally. Thank you for allowing Urology to be a part of the care of your patient. Please call if you have any questions. JOSE ROBERTO [employer] [facility] [employer] Department of Surgery, Division of Urology [phone] 10/24/2024 8:37 AM This note was written using a voice recognition system hardware device. Please note there may be variance in spelling, grammar, and syntax because of the voice recognition system hardware. Not every sentence has been reviewed in its entirety and if there are any concerns about the verbage above please contact me directly at [phone]. Cosigned by Anant Narayanan MD at 10/25/2024 6:09 PM CDT * Donte Camacho MD - 10/19/2024 7:40 AM CDTAssociated Order(s): IP CONSULT TO CARDIOLOGY Initial cardiology Consult-[facility] Reason for Consult: CHF, cardiomyopathy, dyspnea Requesting Provider: Namrata Spencer NP Initial cardiology Consult summary CHF, Systolic ischemic cardiomyopathy, Dyspnea Presence of cardiac device I Dr. Camacho saw and examined the patient. Pertinent information was reviewed. Patient is known to me from follow-up as outpatient. He usually sees me in the [place] office. Recently he has being feeling more fatigued has worsening shortness of breath patient. I discussed case with Pulmonary team. Do not recommend cardiac catheterization because that per thepatient on dialysis. Will adjust patient's medications were discussed case with nephrology team. Avoid over diuresing Will make additional recommendations after I will review outpatient data HPI: Patient is a 84 y.o. 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 Patient reports shortness of breath started 7 days ago and progressively got worse. EMS was called for further evaluation. On EMS arrival, patient was noted to be satting in the 70s on room air. 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 Patient also endorses poor appetite associated with generalized weakness. Ambulates with a cane at baseline. Also reports occasional productive cough with clear phlegm. Denies any other associated symptoms. Reports compliance with his home medications. On arrival to Emergency Room, vital signs, temp 97.6??, pulse 80, respiration 24, BP 121/81, O2 sats 99%. Labs, sodium 132, potassium 5.0, creatinine 1.62, BUN 29, proBNP 8,636, PLT 132. Initial troponin slightly elevated with insignificant delta.Paced rhythm on EKG. Respiratory panel negative. CT chest showing moderately sized right pleural effusion with consolidation in the right upper, right lower and right middle lobe suggestive of multifocal pneumonia. Multiple left upper lobe pulmonary nodules. Dilated main pulmonary artery suggestive of pulmonary arterial hypertension. Severe centrilobular emphysema toes changes. Nonspecific mild gastric wall thickening may represent pseudo thickening from under distention versus gastritis. Due to above, patient will be admitted for further evaluation, care and management. Cardiology consult was requested No past medical history on file. No past surgical history on file. Medications Prior to Admission Medication Sig Dispense Refill Last Dose/Taking aspirin 81 mg enteric coated tablet Take 1 tablet (81 mg total) by mouth daily 10/18/2024 Morning atenoloL (TENORMIN) 50 mg tablet Take 1 tablet (50 mg total) by mouth daily 10/17/2024 atorvastatin (LIPITOR) 20 mg tablet Take 1 tablet (20 mg total) by mouth nightly 10/17/2024 Bedtime calcitRIOL (ROCALTROL) 0.25 mcg capsule Take 1 capsule (0.25 mcg total) by mouth daily 10/18/2024 Morning clorazepate (TRANXENE) 15 mg tablet Take 0.5 tablets (7.5 mg total) by mouth 2 (two) times a day 10/18/2024 Morning digoxin (LANOXIN) 250 mcg (0.25 mg) tablet Take 1 tablet (250 mcg total) by mouth 3 (three) times aweek on Thu, Thu, Thu10/17/2024 ergocalciferol (VITAMIN D) 50,000 unit capsule Take 1 capsule (50,000 Units total) by mouth once a week on Sat Past Week fenofibrate nanocrystallized (TRICOR) 145 mg tablet Take 1 tablet (145 mg total) by mouth daily 10/17/2024 fluticasone propionate (Flonase Allergy Relief) 50 mcg/actuation nasal spray Administer 2 sprays into each nostril daily as needed for rhinitis or allergies Past Week levothyroxine (SYNTHROID) 25 mcg tablet Take 1 tablet (25 mcg total) 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 10/18/2024 Morning Tikosyn 125 mcg capsule Take 1 capsule (125 mcg total) by mouth 2 (two) times a day 10/18/2024 Morning warfarin (COUMADIN) 2 mg tablet Take 1 tablet (2 mg total) by mouth once a week on Tuesdays10/18/2024 Morning warfarin (COUMADIN) 2 mg tablet Take 0.5 tablets (1 mg total) by mouth 6 (six) times a week from Thursday to Thursday10/17/2024 Morning Current Facility-Administered Medications: aspirin enteric coated tablet 81 mg, 81 mg, oral, Daily, Namrata Spencer NP atenoloL (TENORMIN) tablet 50 mg, 50 mg, oral, Daily, Namrata Spencer NP atorvastatin (LIPITOR) tablet 20 mg, 20 mg, oral, Nightly, Namrata Spencer NP, 20 mg at 10/18/242015 azithromycin (ZITHROMAX) 500 mg in sodium chloride 0.9% 250 mL [id number] IVPB, 500 mg, intravenous, Q24H THERESA, Namrata Spencer NP, Stopped at 10/18/24 1644 calcitRIOL (ROCALTROL) capsule 0.25 mcg, 0.25 mcg, oral, Daily, Namrata Spencer NP cefTRIAXone (ROCEPHIN) 1,000 mg/10 mL in sterile water (premix) 1,000 mg, 1,000 mg, intravenous, Q24H THERESA, Namrata Spencer NP, 1,000 mg at 10/18/24 1526 clorazepate (TRANXENE) tablet 7.5 mg, 7.5 mg, oral, BID, Namrata Spencer NP [Held by Provider] digoxin (LANOXIN) tablet 250 mcg, 250 mcg, oral, Once per day on Thursday, Namrata Spencer NP docusate sodium (COLACE) capsule 100 mg, 100 mg, oral, BID PRN, Namrata Spencer NP dofetilide (TIKOSYN) capsule 125 mcg, 125 mcg, oral, BID, Namrata Spencer NP, 125 mcg at10/18/242041 fenofibrate nanocrystallized (TRICOR) tablet 145 mg, 145 mg, oral, Daily, Namrata Spencer NP, 145 mg at 10/18/24 182 fluticasone propionate (FLONASE) 50 mcg/actuation nasal spray 2 spray, 2 spray, each nostril, DailyPRN, Namrata Spencer NP furosemide (LASIX) 10 mg/mL injection 20 mg, 20 mg, intravenous, BID DIURETIC, Namrata Spencer NP ipratropium-albuteroL (DUO-NEB) 0.5-2.5 mg/3 mL nebulizer solution 3 mL, 3 mL, nebulization, Q4H While awake (RT), Namrata Spencer NP, 3 mL at 10/18/24 214 levothyroxine (SYNTHROID) tablet 25 mcg, 25 mcg, oral, Daily - 0600, Namrata Spencer NP,25 mcg at 10/19/24 05 ondansetron (ZOFRAN) injection 4 mg, 4 mg, intravenous, Q6H PRN, Namrata Spencer NP pantoprazole (PROTONIX) 40 mg in sodium chloride 0.9% 10 mL IV Syringe, 40 mg, intravenous, Q24H THERESA, Namrata Spencer NP, 40 mg at 10/18/241821 ramelteon (ROZEREM) tablet 8 mg, 8 mg, oral, Nightly PRN, Namrata Spencer NP, 8 mg at 10/18/242041 Allergies Allergen Reactions Trazodone Hcl Unknown Morphine Hydrocodone Unknown Lunesta [Eszopiclone] Other (See comments) Gave him crazy dreams Tramadol Nausea only Vicodin [Hydrocodone-Acetaminophen] Nausea only Social History Tobacco Use Smoking status: Former Current packs/day: 0.00 Types: Cigarettes Start date: 1955 Quit date: 1997 Years since quittin.4 Passive exposure: Past Smokeless tobacco: Never Substance and Sexual Activity Drug use: Not on file Sexual activity: Not on file Alcohol Use: Unknown (02/23/2023) AUDIT-C Frequency of Alcohol Consumption: Not on file Average Number of Drinks: Patient does not drink Frequency of Binge Drinking: Not on file No family history on file. Review of Systems: O-positive described in HPI Objective Vitals: 24hr Min/Max: Temp Min: 36.2 ??C (97.2 ??F) Max: 36.9 ??C (98.4 ??F) Pulse Min: 79 Max: 87 BP Min: 91/71 Max: 133/77 Resp Min: 14 Max: 24 SpO2 Min: 91 % Max: 99 % Most Recent: Vitals: 10/19/24 0742 BP: 92/52 Pulse: 80 Resp: Temp: 36.2 ??C (97.2 ??F) SpO2: I/O last 2 completed shifts: In: 100 [P.O.:100] Out: 2475 [Urine:2475] No intake/output data recorded. Physical Exam: Constitutional: Currently resting comfortably mildly short of breath HENT: Head: Normocephalic and atraumatic. Right Ear: External ear normal. Left Ear: External ear normal. Mouth/Throat: Mouth: Mucous membranes are moist. Eyes: Extraocular Movements: Extraocular movements intact. Conjunctiva/sclera: Conjunctivae normal. Cardiovascular: Rate and Rhythm: Normal rate and regular rhythm. Heart sounds: No murmur heard. Pulmonary: Effort: Pulmonary effort is normal. No respiratory distress. Breath sounds: Coarse bilaterally Abdominal: General: Bowel sounds are normal. There is no distension. Palpations: Abdomen is soft. Tenderness: There is no abdominal tenderness. Musculoskeletal: Muscle wasting present Skin: General: Skin is warm and dry. Capillary Refill: Capillary refill takes less than 2 seconds. Neurological: General: No focal deficit present. Mental Status: He is alert and oriented to person, place, and time. Psychiatric: Mood and Affect: Mood normal. Behavior: Behavior normal. Thought Content: Thought content normal. Lab/Radiology/Diagnostic Review: Laboratory review: Lab results in the last 24 hours: Recent Results (from the past 24 hours) Comprehensive metabolic panel Collection Time: 10/18/24 10:41 AM Result Value Ref Range Sodium 132 (L) 135 - 145 mmol/L Potassium, pl 5.0 (H) 3.3 - 4.9 mmol/L Chloride 97 97 - 110 mmol/L CO2 28 22 - 32 mmol/L Anion gap 7 2 - 15 mmol/L BUN 29 (H) 6 - 25 mg/dL Creatinine 1.62 (H) 0.80 - 1.30 mg/dL Glucose 90 70 - 199 mg/dL Calcium 9.6 8.5 - 10.3 mg/dL Bilirubin, total 2.1 (H) 0.1 - 1.2 mg/dL Protein, pl 6.3 (L) 6.5 - 8.5 g/dL Albumin 3.5 3.5 - 5.0 g/dL Alk phos 52 40 - 130 Units/L ALT 15 7 - 55 Units/L AST 41 10 - 50 Units/L CBC with auto differential Collection Time: 10/18/24 10:41 AM Result Value Ref Range WBC 4.75 3.80 - 9.90 K/cumm Hgb 15.5 13.0 - 17.5 g/dL Hct 47.4 38.9 - 50.3 % Plt 132 (L) 150 - 400 K/cumm MPV 12.2 9.1 - 12.3 fL RBC 4.95 4.30 - 5.80 M/cumm MCV 95.8 81.3 - 96.4 fL MCH 31.3 27.1 - 33.3 pg MCHC 32.7 32.3 - 35.7 g/dL RDW CV 17.1 (H) 11.1 - 14.9 % RDW SD 59.9 (H) 35.7 - 48.1 fL NRBC abs 0.00 0.00 - 0.01 K/cumm Troponin T high-sensitivity series (baseline, 2hr, 4hr, 6hr) Collection Time: 10/18/24 10:41 AM Result Value Ref Range Trop T hs 51 (H) <=22 ng/L Respiratory pathogen panel Nasopharyngeal Collection Time: 10/18/24 10:41 AM Specimen: Nasopharyngeal Result Value Ref Range Influenza A RNA Not Detected Not Detected Influenza B RNA Not Detected Not Detected RSV RNA Not Detected Not Detected COVID-19 RNA Not Detected Not Detected Coronavirus 229E RNA Not Detected Not Detected Coronavirus HKU1 RNA Not Detected Not Detected Coronavirus NL63 RNA Not Detected Not Detected Coronavirus OC43 RNA Not Detected Not Detected Adenovirus DNA Not Detected Not Detected Metapneumovirus RNA Not Detected Not Detected Rhinovirus/Enterovirus RNA Not Detected Not Detected Parainfluenza 1 RNA Not Detected Not Detected Parainfluenza 2 RNA Not Detected Not Detected Parainfluenza 3 RNA Not Detected Not Detected Parainfluenza 4 RNA Not Detected Not Detected B. pertussis DNA Not Detected Not Detected B. parapertussis DNA Not Detected Not Detected C. pneumoniae DNA Not Detected Not Detected M. pneumoniae DNA Not Detected Not Detected Lactate Collection Time: 10/18/24 10:41 AM Result Value Ref Range Lactate 1.3 0.7 - 2.0 mmol/L Differential, auto Collection Time: 10/18/24 10:41 AM Result Value Ref Range Neutrophil abs 3.39 1.50 - 6.50 K/cumm Imm gran abs 0.01 0.00 - 0.10 K/cumm Lymphocyte abs 0.86 0.80 - 3.30 K/cumm Monocyte abs 0.44 0.20 - 0.80 K/cumm Eosinophil abs 0.03 0.00 - 0.50 K/cumm Basophil abs 0.02 0.00 - 0.10 K/cumm Neutrophil pct 71.4 % Imm gran pct 0.2 % Lymphocyte pct 18.1 % Monocyte pct 9.3 % Eosinophil pct 0.6 % Basophil pct 0.4 % eGFR Collection Time: 10/18/24 10:41 AM Result Value Ref Range eGFR 42 (L) >=60 mL/min/1.73 m2 Troponin T high-sensitivity 2-hour Collection Time: 10/18/24 12:26 PM Result Value Ref Range Trop T hs 54 (H) <=22 ng/L Trop T hs delta 3 ng/L Trop T hs interp Insignificant Pro B-type natriuretic peptide Collection Time: 10/18/24 12:26 PM Result Value Ref Range NT-proBNP 8,636 (H) <=450 pg/mL Blood culture Blood Peripheral Collection Time: 10/18/24 1:28 PM Specimen: Peripheral; Blood Result Value Ref Range Report Preliminary Report: No growth to date. Blood culture Blood Peripheral Collection Time: 10/18/24 1:28 PM Specimen: Peripheral; Blood Result Value Ref Range Report Preliminary Report: No growth to date. Troponin T high-sensitivity 4-hour Collection Time: 10/18/24 2:42 PM Result Value Ref Range Trop T hs 51 (H) <=22 ng/L Trop T hs delta 0 ng/L Trop T hs interp Insignificant Troponin T high-sensitivity 6-hour Collection Time: 10/18/24 4:32 PM Result Value Ref Range Trop T hs 51 (H) <=22 ng/L Trop T hs delta 0 ng/L Trop T hs interp Insignificant Digoxin level Collection Time: 10/18/24 4:32 PM Result Value Ref Range Digoxin 1.3 (H) 0.5 - 1.2 ng/mL Magnesium Collection Time: 10/19/24 5:12 AM Result Value Ref Range Magnesium 2.0 1.4 - 2.5 mg/dL CBC with auto differential Collection Time: 10/19/24 5:12 AM Result Value Ref Range WBC 5.02 3.80 - 9.90 K/cumm Hgb 15.5 13.0 - 17.5 g/dL Hct 48.5 38.9 - 50.3 % Plt 125 (L) 150 - 400 K/cumm MPV 11.4 9.1 - 12.3 fL RBC 5.03 4.30 - 5.80 M/cumm MCV 96.4 81.3 - 96.4 fL MCH 30.8 27.1 - 33.3 pg MCHC 32.0 (L) 32.3 - 35.7 g/dL RDW CV 17.0 (H) 11.1 - 14.9 % RDW SD 59.9 (H) 35.7 - 48.1 fL NRBC abs 0.00 0.00 - 0.01 K/cumm Basic metabolic panel Collection Time: 10/19/24 5:12 AM Result Value Ref Range Sodium 133 (L) 135 - 145 mmol/L Potassium, pl 4.8 3.3 - 4.9 mmol/L Chloride 96 (L) 97 - 110 mmol/L CO2 30 22 - 32 mmol/L Anion gap 7 2 - 15 mmol/L BUN 35 (H) 6 - 25 mg/dL Creatinine 1.83 (H) 0.80 - 1.30 mg/dL Glucose 87 70 - 199 mg/dL Calcium 9.2 8.5 - 10.3 mg/dL Protime-INR Collection Time: 10/19/24 5:12 AM Result Value Ref Range PT 34.7 (H) 9.7 - 13.0 sec INR 3.14 (H) 0.90 - 1.20 Differential, auto Collection Time: 10/19/24 5:12 AM Result Value Ref Range Neutrophil abs 3.68 1.50 - 6.50 K/cumm Imm gran abs 0.02 0.00 - 0.10 K/cumm Lymphocyte abs 0.73 (L) 0.80 - 3.30 K/cumm Monocyte abs 0.49 0.20 - 0.80 K/cumm Eosinophil abs 0.07 0.00 - 0.50 K/cumm Basophil abs 0.03 0.00 - 0.10 K/cumm Neutrophil pct 73.3 % Imm gran pct 0.4 % Lymphocyte pct 14.5 % Monocyte pct 9.8 % Eosinophil pct 1.4 % Basophil pct 0.6 % eGFR Collection Time: 10/19/24 5:12 AM Result Value Ref Range eGFR 36 (L) >=60 mL/min/1.73 m2 Lipids: No results found for: CHOL, CHLPL, HDL, LDLCALC, TRIG, CHOLHDL and Cardiac Enzymes: No results found for: CKTOTAL, CKMB, CKMBINDEX, TROPONINT ECG: Results for orders placed during the hospital encounter of 10/18/24 ECG 12 lead Narrative Vent Rate: 80 bpm RR Interval: 749 msec RI Interval: 140 msec QRS Duration: 164 msec QT Interval: 377 msec QTC Interval: 412 msec P-R-T [place]: -52 - 226 - 226 degrees IMPRESSION: ELECTRONIC VENTRICULAR PACEMAKER ST DEPRESSION, CONSIDER SUBENDOCARDIAL INJURY [0.1+ mV ST DEPRESSION] ABNORMAL ECG No change compared to prior EKG Electronically Signed By: Emilio Ratliff MD [facility] Impression recommendation CHF, Systolic ischemic cardiomyopathy, Dyspnea Presence of cardiac device I Dr. Camacho saw and examined the patient. Pertinent information was reviewed. Patient is known to me from follow-up as outpatient. He usually sees me in the [place] office. Recently he has being feeling more fatigued has worsening shortness of breath patient. I discussed case with Pulmonary team. Do not recommend cardiac catheterization because that per thepatient on dialysis. Will adjust patient's medications were discussed case with nephrology team. Avoid over diuresing Will make additional recommendations after I will review outpatient data * Radha Suggs MD - 10/19/2024 6:50 AM CDTAssociated Order(s): IP CONSULT TO PULMONOLOGY Images from the original note were not included. Pulmonary Consult Reason for Consult: New O2 requirement, Pulmonary nodules, pulmonary hypertension HPI: Mr. Monsalve is an 84 y/o CM who presented to the ED on 10/18/24 with complaints of shortness of breath that had been worsening over the last week. He was reportedly satting 70% on room air when EMSarrived. 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 States he has been having increased BAH. Does have cough at times that is productive of clear sputum. Started smoking age 12 and quit in 1996, smoked up to 1.5 ppd for 44 years, giving a 66 pack year hx. He has been on amiodarone in the past but not for sometime. 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 No service. Has lived in the [place] his whole life. CT Chest 10/18/24: Very severe emphysematous changes, moderate right pleural effusion, Carries a hx of atrial fibrillation s/p multiple ablations, HFrEF, ischemic cardiomyopathy s/p BiVICD, CKD, CAD s/p CABG, No past medical history on file. No past surgical history on file. Medications Prior to Admission Medication Sig Dispense Refill Last Dose/Taking aspirin 81 mg enteric coated tablet Take 1 tablet (81 mg total) by mouth daily 10/18/2024 Morning atenoloL (TENORMIN) 50 mg tablet Take 1 tablet (50 mg total) by mouth daily 10/17/2024 atorvastatin (LIPITOR) 20 mg tablet Take 1 tablet (20 mg total) by mouth nightly 10/17/2024 Bedtime calcitRIOL (ROCALTROL) 0.25 mcg capsule Take 1 capsule (0.25 mcg total) by mouth daily 10/18/2024 Morning clorazepate (TRANXENE) 15 mg tablet Take 0.5 tablets (7.5 mg total) by mouth 2 (two) times a day 10/18/2024 Morning digoxin (LANOXIN) 250 mcg (0.25 mg) tablet Take 1 tablet (250 mcg total) by mouth 3 (three) times aweek on Mon, Wed, Fri 10/17/2024 ergocalciferol (VITAMIN D) 50,000 unit capsule Take 1 capsule (50,000 Units total) by mouth once a week on Sat Past Week fenofibrate nanocrystallized (TRICOR) 145 mg tablet Take 1 tablet (145 mg total) by mouth daily 10/17/2024 fluticasone propionate (Flonase Allergy Relief) 50 mcg/actuation nasal spray Administer 2 sprays into each nostril daily as needed for rhinitis or allergies Past Week levothyroxine (SYNTHROID) 25 mcg tablet Take 1 tablet (25 mcg total) 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 10/18/2024 Morning Tikosyn 125 mcg capsule Take 1 capsule (125 mcg total) by mouth 2 (two) times a day 10/18/2024 Morning warfarin (COUMADIN) 2 mg tablet Take 1 tablet (2 mg total) by mouth once a week on Tuesdays10/18/2024 Morning warfarin (COUMADIN) 2 mg tablet Take 0.5 tablets (1 mg total) by mouth 6 (six) times a week from Thursday to Thursday10/17/2024 Morning Scheduled Meds:aspirin, 81 mg, oral, Daily atenoloL, 50 mg, oral, Daily atorvastatin, 20 mg, oral, Nightly azithromycin, 500 mg, intravenous, Q24H THERESA calcitRIOL, 0.25 mcg, oral, Daily cefTRIAXone, 1,000 mg, intravenous, Q24H THERESA clorazepate, 7.5 mg, oral, BID digoxin, 250 mcg, oral, Once per day on Thursday dofetilide, 125 mcg, oral, BID fenofibrate nanocrystallized, 145 mg, oral, Daily furosemide, 20 mg, intravenous, BID DIURETIC ipratropium-albuteroL, 3 mL, nebulization, Q4H While awake (RT) levothyroxine, 25 mcg, oral, Daily - 0600 pantoprazole, 40 mg, intravenous, Q24H THERESA Continuous Infusions: PRN Meds:. docusate sodium fluticasone propionate ondansetron ramelteon Allergies Allergen Reactions Trazodone Hcl Unknown Morphine Hydrocodone Unknown Lunesta [Eszopiclone] Other (See comments) Gave him crazy dreams Tramadol Nausea only Vicodin [Hydrocodone-Acetaminophen] Nausea only Social History Tobacco Use Smoking status: Former Current packs/day: 0.00 Types: Cigarettes Start date: 1955 Quit date: 1997 Years since quittin.4 Passive exposure: Past Smokeless tobacco: Never Substance and Sexual Activity Drug use: Not on file Sexual activity: Not on file Alcohol Use: Unknown (02/23/2023) AUDIT-C Frequency of Alcohol Consumption: Not on file Average Number of Drinks: Patient does not drink Frequency of Binge Drinking: Not on file No family history on file. Review of Systems Constitutional: Negative for chills and fever. HENT: Negative for congestion, hearing loss, nosebleeds and sore throat. Eyes: Negative for blurred vision and pain. Respiratory: Positive for cough, sputum production and shortness of breath. Negative for hemoptysisand wheezing. Cardiovascular: Negative for chest pain, palpitations and leg swelling. Gastrointestinal: Negative for constipation, diarrhea, nausea and vomiting. Genitourinary: Negative for dysuria and hematuria. Musculoskeletal: Negative for joint pain and myalgias. Skin: Negative for itching and rash. Neurological: Negative for seizures and headaches. Endo/Heme/Allergies: Negative for environmental allergies and polydipsia. Psychiatric/Behavioral: Negative for depression and memory loss. Above review of system reviewed on 10/19/2024 Vitals: Vitals: 10/18/24 1730 10/18/24202710/18/24 2147 10/19/24 0512 BP: 100/59 95/47 BP Location: Left arm Patient Position: Pulse: 79 80 Resp: 18 18 Temp: 36.9 ??C (98.4 ??F) 36.7 ??C (98.1 ??F) TempSrc: Oral SpO2: 94% 93% 93% Weight: Height: 170.2 cm (5' 7.01) Temp (24hrs), Av.7 ??C (98 ??F), Min:36.4 ??C (97.6 ??F), Max:36.9 ??C (98.4 ??F) Oxygen Therapy SpO2: 93 % O2 Therapy: Supplemental oxygen O2 Del Method: Nasal cannula O2 Flow Rate (L/min): 3 L/min . Intake/Output Summary (Last 24 hours) at 10/19/2024 0650 Last data filed at 10/19/2024 0600 Gross per 24 hour Intake 100 ml Output 2475 ml Net -2375 ml Physical Exam Vitals and nursing note reviewed. Constitutional: General: He is not in acute distress. Appearance: He is well-developed. HENT: Head: Normocephalic and atraumatic. Comments: Hard of hearing Nose: Nose normal. Eyes: General: No scleral icterus. Conjunctiva/sclera: Conjunctivae normal. Neck: Thyroid: No thyromegaly. Trachea: No tracheal deviation. Cardiovascular: Rate and Rhythm: Normal rate and regular rhythm. Heart sounds: No murmur heard. No friction rub. Pulmonary: Effort: Pulmonary effort is normal. No accessory muscle usage or respiratory distress. Breath sounds: No stridor. Decreased breath sounds present. No wheezing or rales. Chest: Chest wall: No tenderness. Abdominal: General: Bowel sounds are normal. There is no distension. Palpations: Abdomen is soft. Tenderness: There is no abdominal tenderness. Musculoskeletal: General: No tenderness. Cervical back: Normal range of motion. Skin: General: Skin is warm and dry. Neurological: Mental Status: He is alert and oriented to person, place, and time. Psychiatric: Behavior: Behavior normal. Lab/Radiology/Diagnostic Review: Labs: Recent Labs Lab Units 10/19/24 0512 10/18/24 1041 WBC K/cumm 5.02 4.75 HEMOGLOBIN g/dL 15.5 15.5 HEMATOCRIT % 48.5 47.4 PLATELETS K/cumm 125* 132* NEUTROS PCT % 73.3 71.4 LYMPHS PCT % 14.5 18.1 MONOS PCT % 9.8 9.3 EOS PCT % 1.4 0.6 Recent Labs Lab Units 10/19/24 0512 10/18/24 1041 SODIUM mmol/L 133* 132* POTASSIUM PLASMA mmol/L 4.8 5.0* CHLORIDE mmol/L 96* 97 CO2 mmol/L 30 28 ANIONGAP mmol/L 7 7 GLUCOSE mg/dL 87 90 BUN SERUM mg/dL 35* 29* CREATININE mg/dL 1.83* 1.62* CALCIUM mg/dL 9.2 9.6 ALBUMIN g/dL -- 3.5 ALK PHOS Units/L -- 52 ALT Units/L -- 15 AST Units/L -- 41 BILIRUBIN TOTAL mg/dL -- 2.1* Respiratory pathogen panel: Negative NT-proBNP 8636 Imaging: CT Chest wo con 10/18/24: Other diagnostic tests: I have personally reviewed above laboratory findings, chest imaging, and diagnostic tests. 10/19/2024 Assessment and Plan: Acute hypoxic respiratory insufficiency Severe emphysema RLL cavitary lesion: pneumonia vs malignancy vs bullous disease Hx of Afib Hx of CHF Hx of CKD Hx of CAD s/p CABG Hx of ischemic cardiomyopathy Recs: - Wean supplemental O2 for SpO2 88-92% - Nebs TID - Strep and Legionella Ur Ag - Change to Unasyn to cover to anaerobic given the cavitary lesion appearance - If pleural effusion increases in size would need diagnostic thoracentesis - Will need repeat imaging in 4-6 weeks * Delvin Mendenhall MD - 10/18/2024 7:47 PM CDT Patient seen and examined. Orders placed. Full note to follow. Thank you for the consult. I can be reached at [phone] with any concerns. Delvin Mendenhall MD documented in this encounter Nursing Notes * Nolvia Malik - 10/27/2024 6:09 PM CDT Tranxene anxiety medication locked up in pharmacy in ground floor due to narcotic, when med need togive, called pharmacy to order * Susana Harris - 10/21/2024 7:16 PM CDT Patient libertarian brought the medicine tranxene tablet from the home. Medicine counted with the charge nurse Edie and submitted to the pharmacy for verification. * Rosana Mauricio, MAUREEN - 10/20/2024 4:30 AM CDT Attempt to wean patient off oxygen, decrease sat 84 on 2 L, increase to 4L, patient to 90% via n/c . documented in this encounter ED Notes * Zeke Correa DO - 10/18/2024 10:45 AM CDT HPI Chief Complaint Patient presents with Shortness of Breath HPI 3:10 PM - Ian Monsalve is a 84 y.o. male patient presenting to the ED via EMS from home, complaining of shortness of breath, severe intensity, worsening over the last 7 days. EMS reported the patient had O2 saturations of 70% on room air He is on room air at baseline at home Patient reports that he has been off Lasix for several days at the request of his lace mender, dueto his CKD. Patient denies any recent fever or chills. No sputum production. No abdominal pain, chest pain, or diarrhea. Past medical history noted for CKD, CHF, cardiomyopathy, CAD, atrial fibrillation (3 prior ablations), biventricular pacemaker Patient History: No past medical history on file. No past surgical history on file. No family history on file. Social History Tobacco Use Smoking status: Former Current packs/day: 0.00 Types: Cigarettes Start date: 1955 Quit date: 1997 Years since quittin.4 Passive exposure: Past Smokeless tobacco: Never Substance and Sexual Activity Drug use: Not on file Sexual activity: Not on file Alcohol Use: Unknown (02/23/2023) AUDIT-C Frequency of Alcohol Consumption: Not on file Average Number of Drinks: Patient does not drink Frequency of Binge Drinking: Not on file Review of Systems Review of Systems Physical Exam ED Triage Vitals Temp Pulse Resp BP SpO2 10/18/24 1052 10/18/24 1030 10/18/24 1040 10/18/24 1030 10/18/24 1030 36.4 ??C (97.6 ??F) 80 24 121/81 99 % Temp src Heart Rate Source Patient Position BP Location FiO2 (%) 10/18/24 1052 -- -- -- -- Axillary Height Height Method Weight Weight Method -- -- 10/18/24 1044 -- 78.5 kg (173 lb) Physical Exam Vitals and nursing note reviewed. Constitutional: General: He is in acute distress. Appearance: He is well-developed. He is ill-appearing. HENT: Head: Normocephalic and atraumatic. Right Ear: External ear normal. Left Ear: External ear normal. Mouth/Throat: Mouth: Mucous membranes are moist. Eyes: Extraocular Movements: Extraocular movements intact. Conjunctiva/sclera: Conjunctivae normal. Cardiovascular: Rate and Rhythm: Normal rate and regular rhythm. Heart sounds: No murmur heard. Pulmonary: Effort: Pulmonary effort is normal. No respiratory distress. Breath sounds: Normal breath sounds. Abdominal: General: Bowel sounds are normal. There is no distension. Palpations: Abdomen is soft. Tenderness: There is no abdominal tenderness. Musculoskeletal: General: Swelling present. Cervical back: Neck supple. Right lower leg: Edema present. Left lower leg: Edema present. Skin: General: Skin is warm and dry. Capillary Refill: Capillary refill takes less than 2 seconds. Neurological: General: No focal deficit present. Mental Status: He is alert and oriented to person, place, and time. Psychiatric: Mood and Affect: Mood normal. Behavior: Behavior normal. Thought Content: Thought content normal. Procedures MDM Labs Reviewed COMPREHENSIVE METABOLIC PANEL - Abnormal Result Value Sodium 132 (*) Potassium, pl 5.0 (*) Chloride 97 CO2 28 Anion gap 7 BUN 29 (*) Creatinine 1.62 (*) Glucose 90 Calcium 9.6 Bilirubin, total 2.1 (*) Protein, pl 6.3 (*) Albumin 3.5 Alk phos 52 ALT 15 AST 41 CBC WITH AUTO DIFFERENTIAL - Abnormal WBC 4.75 Hgb 15.5 Hct 47.4 Plt 132 (*) MPV 12.2 RBC 4.95 MCV 95.8 MCH 31.3 MCHC 32.7 RDW CV 17.1 (*) RDW SD 59.9 (*) NRBC abs 0.00 TROPONIN T HIGH-SENSITIVITY SERIES (BASELINE, 2HR, 4HR, 6HR) - Abnormal Trop T hs 51 (*) TROPONIN T HIGH-SENSITIVITY 2-HOUR - Abnormal Trop T hs 54 (*) Trop T hs delta 3 Trop T hs interp Insignificant EGFR - Abnormal eGFR 42 (*) PRO B-TYPE NATRIURETIC PEPTIDE - Abnormal NT-proBNP 8,636 (*) RESPIRATORY PATHOGEN PANEL Influenza A RNA Not Detected Influenza B RNA Not Detected RSV RNA Not Detected COVID-19 RNA Not Detected Coronavirus 229E RNA Not Detected Coronavirus HKU1 RNA Not Detected Coronavirus NL63 RNA Not Detected Coronavirus OC43 RNA Not Detected Adenovirus DNA Not Detected Metapneumovirus RNA Not Detected Rhinovirus/Enterovirus RNA Not Detected Parainfluenza 1 RNA Not Detected Parainfluenza 2 RNA Not Detected Parainfluenza 3 RNA Not Detected Parainfluenza 4 RNA Not Detected B. pertussis DNA Not Detected B. parapertussis DNA Not Detected C. pneumoniae DNA Not Detected M. pneumoniae DNA Not Detected Narrative: Is the Patient experiencing symptoms consistent with COVID?->Yes Surveillance testing for transplant patient?->No BLOOD CULTURE BLOOD CULTURE LACTATE Lactate 1.3 DIFFERENTIAL AUTO Neutrophil abs 3.39 Imm gran abs 0.01 Lymphocyte abs 0.86 Monocyte abs 0.44 Eosinophil abs 0.03 Basophil abs 0.02 Neutrophil pct 71.4 Imm gran pct 0.2 Lymphocyte pct 18.1 Monocyte pct 9.3 Eosinophil pct 0.6 Basophil pct 0.4 TROPONIN T HIGH-SENSITIVITY 4-HR TROPONIN T HIGH-SENSITIVITY 6-HOUR EKG Time 10:33 a.m. Ventricular paced rhythm 80 beats per minute No STEMI Interpretation by me CT Chest WO Contrast Final Result 1. Moderately sized right pleural effusion with [...] Electronically signed by: Rajendra Oh II, D.O. XR Chest 1 Vw Portable Final Result ICD leads are intact. Post sternotomy changes are noted. Cardiac mediastinal silhouette within normal limits. There is a small right pleural effusion. Opacities in the right lower lobe suggestive of pneumonia, increased from prior. Follow-up suggested to ensure resolution. No acute osseous abnormality. Electronically signed by: Rajendra Oh II, D.O. BP 126/73 Pulse 87 Temp 36.4 ??C (97.6 ??F) (Axillary) Resp 19 Wt 78.5 kg (173 lb) SpO2 94% BMI 27.09 kg/m?? MDM Number of Diagnoses or Management Options Acute congestive heart failure, unspecified heart failure type (HCC) Chronic kidney disease, unspecified CKD stage Pneumonia of right lung due to infectious organism, unspecified part of lung Diagnosis management comments: Differential diagnosis includes but is not limited to CHF, STEMI, NSTEMI, arrhythmia, ROSA, electrolyte disturbance Amount and/or Complexity of Data Reviewed Clinical lab tests: reviewed and ordered Tests in the radiology section of CPT??: reviewed and ordered Tests in the medicine section of CPT??: reviewed and ordered Decide to obtain previous medical records or to obtain history from someone other than the patient:yes Review and summarize past medical records: yes Independent visualization of images, tracings, or specimens: yes Risk of Complications, Morbidity, and/or Mortality Presenting problems: high Diagnostic procedures: moderate Management options: moderate 2:53 p.m. Patient has been stable on 2-3 L nasal cannula He will need admission for further management. [facility]. Discussed with his LAUNDRY MACHINE TENDER covering. Will also need Nephrology consult. 3:10 p.m. Accepted for admission by LAUNDRY MACHINE TENDER Johanna CT results also noted. Will add Rocephin and Zithromax Impression: Acute congestive heart failure, unspecified heart failure type (HCC) Chronic kidney disease, unspecified CKD stage Pneumonia of right lung due to infectious organism, unspecified part of lung Zeke Correa, DO 10/18/24 8534 Zeke Correa, DO 10/18/24 1510 * Jil Ricci RN - 10/18/2024 10:28 AM CDT Pt arrives to ED for SOB that has been getting worse over the last week. Per EMS pt was 70% on RA and kidney doctor stopped lasix last week. HX of CHF and cardiomyopathy. Does not wear O2 at baseline. Arrives NRB 15L. Aox4. * Johnathan Galicia RN - 10/18/2024 10:28 AM CDT Bed: CC-D Expected date: Expected time: Means of arrival: Comments: 4449: 84 yo M 70 % ra 98% nrb Johnathan Galicia RN 10/18/24 1028 documented in this encounter Miscellaneous Notes * Plan of Care - Jeanette Garber RN - 11/03/2024 11:55 AM CDT 10/21/24 1540 Discharge Summary Discharge Disposition snf facility (short term care) Specify Facility [facility], [place] Contact Number [phone] Recommended Discharge Level of Care snf facility (short term care) Actual Discharge Level of Care snf facility (short term care) Does Actual Level of Care Match Care Team Recommendation? Yes Post Acute Care Plan Post Acute Care Needs Identified No Discharge Additional Assistance Does the patient need discharge transport arranged? Yes Type of Transportation Ambulance/EMS Has discharge transport been arranged? Yes Details of Transportation EMS is set up for 1500 today. Patient is discharging to [facility] today EMS set up for 1500. Patient is going to room 637.RN-RN report [phone]. Fax number [phone]. CM spoke with patient and his Eliu. IMM complete. Patients discharge disposition code is 03. * Plan of Care - Dustin Barrett RN - 11/03/2024 11:18 AM CDT Problem: Discharge Planning Goal: Understanding discharge needs will improve Outcome: Progressing Problem: Fall Risk Goal: Ability to state ways to decrease the risk of falls will improve Outcome: Progressing Goal: Will remain free from falls Outcome: Progressing Goal: Will remain free from injury from falls Outcome: Progressing Problem: Skin Integrity Impairment Risk Goal: Mobility will improve Outcome: Progressing Goal: Understanding of ways to prevent future skin breakdown will improve Outcome: Progressing Goal: Nutritional status will improve Outcome: Progressing Goal: Risk for impaired skin integrity will decrease Outcome: Progressing Goals: Clinical Goals for the Shift: comfort, safety Fpc Patient Centered Goal for Treatment: Discharge home with return to baseline * Plan of Care - Darby Puckett - 11/03/2024 4:11 AM CDT Problem: Fall Risk Goal: Will remain free from falls Outcome: Progressing Flowsheets (Taken 11/02/2024331) Will remain free from falls: Assess risk factors for falls Implement fall prevention measures Collaborate with other disciplines Goal: Will remain free from injury from falls Outcome: Progressing Flowsheets (Taken 11/03/2024 0410) Will remain free from injury from falls: Provide safe environment for conduction of activities of daily living in hospital environment Problem: Skin Integrity Impairment Risk Goal: Understanding of ways to prevent future skin breakdown will improve Outcome: Progressing Flowsheets (Taken 11/02/2024331) Understanding of ways to prevent future skin breakdown will improve: Discuss treatments to protect skin integrity Discuss treatment plan for related conditions Goal: Risk for impaired skin integrity will decrease Outcome: Progressing Flowsheets (Taken 11/02/2024331) Risk for impaired skin integrity will decrease: Identify risk factors for impaired skin integrity and/or pressure injuries Monitor skin integrity, appearance and temperature Implement precautions to protect skin integrity Use moisturizing agent to dry skin Perform cleansing of skin when soiled Provide pressure-redistribution bed, mattress and/or chair cushion Provide moisture management and/or incontinence care Apply skin protectant to elbows and heels Float heels off surface Protect skin from pressure due to medical devices when appropriate Goals: Clinical Goals for the Shift: comfort, safety Events Director Patient Centered Goal for Treatment: Discharge home with return to baseline * Plan of Care - Jeanette Garber RN - 11/02/2024 2:57 PM CDT Patient has been accepted by [facility]. Waiting to find out if they have a bed and when he can go to the facility. CM will continue to follow for discharge needs. * Plan of Care - Darby Puckett - 11/02/2024 3:33 AM CDT Problem: Fall Risk Goal: Ability to state ways to decrease the risk of falls will improve Outcome: Progressing Flowsheets (Taken 11/02/2024331) Ability to state ways to decrease the risk of falls will improve: Teach fall prevention measures Teach information regarding appropriate enviornmental changes Goal: Will remain free from falls Outcome: Progressing Flowsheets (Taken 11/02/2024331) Will remain free from falls: Assess risk factors for falls Implement fall prevention measures Collaborate with other disciplines Goal: Will remain free from injury from falls Outcome: Progressing Flowsheets (Taken 11/02/2024331) Will remain free from injury from falls: Provide safe environment for conduction of activities of daily living in hospital environment Problem: Skin Integrity Impairment Risk Goal: Understanding of ways to prevent future skin breakdown will improve Outcome: Progressing Flowsheets (Taken 11/02/2024331) Understanding of ways to prevent future skin breakdown will improve: Discuss treatments to protect skin integrity Discuss treatment plan for related conditions Goal: Risk for impaired skin integrity will decrease Outcome: Progressing Flowsheets (Taken 11/02/2024331) Risk for impaired skin integrity will decrease: Identify risk factors for impaired skin integrity and/or pressure injuries Monitor skin integrity, appearance and temperature Implement precautions to protect skin integrity Use moisturizing agent to dry skin Perform cleansing of skin when soiled Provide pressure-redistribution bed, mattress and/or chair cushion Provide moisture management and/or incontinence care Apply skin protectant to elbows and heels Float heels off surface Protect skin from pressure due to medical devices when appropriate Goals: Clinical Goals for the Shift: comfort, safety Fpc Patient Centered Goal for Treatment: Discharge with return to baseline * Plan of Care - Krystle Alvares RN - 11/01/2024 4:07 AM CDT Problem: Discharge Planning Goal: Understanding discharge needs will improve Outcome: Ongoing Problem: Fall Risk Goal: Ability to state ways to decrease the risk of falls will improve Outcome: Ongoing Goal: Will remain free from falls Outcome: Ongoing Goal: Will remain free from injury from falls Outcome: Ongoing Problem: Skin Integrity Impairment Risk Goal: Mobility will improve Outcome: Ongoing Goal: Understanding of ways to prevent future skin breakdown will improve Outcome: Ongoing Goal: Nutritional status will improve Outcome: Ongoing Goal: Risk for impaired skin integrity will decrease Outcome: Ongoing Problem: Respiratory Goal: Achieves optimal ventilation and oxygenation Outcome: Ongoing Goal: Ability to maintain a clear airway will improve Outcome: Ongoing Goal: Mechanical Ventilation will be safely managed Outcome: Ongoing Problem: Neurosensory Goal: Achieves stable or improved neurological status Outcome: Ongoing Goal: Achieves maximal functionality and self care Outcome: Ongoing Problem: Skin/Tissue Integrity Goal: Skin integrity remains intact Outcome: Ongoing Problem: Cardiovascular Goal: Maintains optimal cardiac output and hemodynamic stability Outcome: Ongoing Goal: Absence of cardiac dysrhythmias or at baseline Outcome: Ongoing Goal: Cardiovascular status will improve Outcome: Ongoing Problem: Musculoskeletal Goal: Return mobility to safest level of function Outcome: Ongoing Goal: Maintain proper alignment of affected body part Outcome: Ongoing Goal: Return ADL status to a safe level of function Outcome: Ongoing Goal: Ability to perform activities at highest level will improve Outcome: Ongoing Goal: Mobility, ROM and muscle strength will improve Outcome: Ongoing Goals: Clinical Goals for the Shift: safety. VS, Monitor Urinary OP Fpc Patient Centered Goal for Treatment: home w/family Summary: Pt continued to have retention, guerrero inserted per urologist order. To continue safety rounds and guerrero care. * Plan of Care - Carri White LPN - 10/31/2024 7:23 PM CDT Goals: Clinical Goals for the Shift: vss comfort,bleeding,tele monitoring,ivf atb Fpc Patient Centered Goal for Treatment: home w/family Summary: Pt. Was retaining urine, MD had guerrero removed for trial. Pt. Was able to urinate throughout day in small amounts. Bladder scan was taken at 1800, 466m. Was being retained, therefore straightcatheter was applied and 225 was the output. Second bladder scan will be taken before MD makes decision for another guerrero. Pt. Was calm and receptive to help and explanation. and daughter were in during the morning. Pt. Was able to ambulate with walker to sink and work with PT without much exertion. Pt. Also on fluid restriction to 2.5 L /day. * Plan of Care - Jeanette Garber RN - 10/31/2024 1:30 PM CDT 10/21/24 1540 Discharge Planning Support System Spouse/Significant Other;Children Anticipated discharge level of care snf facility (short term care) Does the patient need discharge transport arranged? Yes Type of Transportation Ambulance/EMS Has discharge transport been arranged? No Details of Transportation EMS to SNF placement. Post Acute Care Plan Post Acute Care Needs Identified No Patient and his family are now requesting SNF placement. They gave CM 5 places to start. CM sent referrals and is waiting on a response. They would prefer a place that can provide transportation to doctor appointments, but are open to providing some transportation. Patient is on oxygen 4 L at rest and 6L with activity. Provider stated he will need a new home O2 assessment prior to discharge to see if he still needs the same L of O2. CM will continue to follow for discharge needs. * Plan of Care - Letitia Bey RN - 10/31/2024 2:20 AM CDT Goals: Clinical Goals for the Shift: vss comfort,bleeding,tele monitoring,ivf atb Fpc Patient Centered Goal for Treatment: home w/family Summary: Patient free from fall-on fluid restriction;d/c ivf. Started on PO sodium. Still on tele monitoring-paced. Chg bath done. Plan of care ongoing. Problem: Fall Risk Goal: Ability to state ways to decrease the risk of falls will improve Outcome: Progressing Flowsheets (Taken 10/21/2024 0451 by Rosana Mauricio, RN) Ability to state ways to decrease the risk of falls will improve: Teach fall prevention measures Teach information regarding appropriate enviornmental changes Goal: Will remain free from falls Flowsheets (Taken 10/29/2024 3004) Will remain free from falls: Assess risk factors for falls Goal: Will remain free from injury from falls Flowsheets (Taken 10/30/2024 3380) Will remain free from injury from falls: Provide safe environment for conduction of activities of daily living in hospital environment Problem: Neurosensory Goal: Achieves stable or improved neurological status Outcome: Progressing Flowsheets (Taken 10/31/2024219) Achieves Stable or Improved Neurological Status: Assess for and report changes in neurological status Maintain blood pressure and fluid volume within ordered parameters to optimize cerebral perfusion and minimize risk of hemorrhage Monitor temperature, glucose, and sodium. Initiate appropriate interventions as ordered Problem: Cardiovascular Goal: Cardiovascular status will improve Outcome: Progressing Flowsheets (Taken 10/31/2024219) Cardiovascular status will improve: Monitor for signs and symptoms of chest pain Monitor signs and symptoms of heart failure Problem: Skin/Tissue Integrity Goal: Skin integrity remains intact Flowsheets (Taken 10/29/2024357) Skin integrity remains intact: Assess and document risk factors for pressure injury development Assess and document skin integrity * Plan of Care - Letitia Bey RN - 10/30/2024 3:37 AM CDT Goals: Clinical Goals for the Shift: vss comfort,telemonitoring,ivf,iv atb,lab workups Events Director Patient Centered Goal for Treatment: home w/family Summary: Patient free from fall-bed alarm on. Noted pinkish to re urine output during the shift ;with low sodium reults-LAUNDRY MACHINE TENDER updated-acknowledged no further orders given. Lab workups in am. Plan of care ongoing. Problem: Fall Risk Goal: Ability to state ways to decrease the risk of falls will improve Outcome: Progressing Flowsheets (Taken 10/21/2024 045 by Rosana Mauricio, RN) Ability to state ways to decrease the risk of falls will improve: Teach fall prevention measures Teach information regarding appropriate enviornmental changes Goal: Will remain free from falls Flowsheets (Taken 10/29/2024357) Will remain free from falls: Assess risk factors for falls Goal: Will remain free from injury from falls Flowsheets (Taken 10/30/2024336) Will remain free from injury from falls: Provide safe environment for conduction of activities of daily living in hospital environment Problem: Cardiovascular Goal: Maintains optimal cardiac output and hemodynamic stability Outcome: Progressing Flowsheets (Taken 10/29/2024357) Maintain optimal cardiac output and hemodynamic Stability: Monitor vital signs, rhythm, and trends Assess quality of pulses, skin color and temperature Goal: Absence of cardiac dysrhythmias or at baseline Flowsheets (Taken 10/30/2024336) Absence of cardiac dysrhythmias or at baseline: Continuous cardiac monitoring, monitor vital signs,obtain 12 lead EKG if indicated Problem: Skin/Tissue Integrity Goal: Skin integrity remains intact Outcome: Progressing Flowsheets (Taken 10/29/2024357) Skin integrity remains intact: Assess and document risk factors for pressure injury development Assess and document skin integrity Problem: Musculoskeletal Goal: Return mobility to safest level of function Outcome: Progressing Flowsheets (Taken 10/30/2024336) Return mobility to safest level of function: Assess patient stability and activity tolerance for standing, transferring and ambulating with or without assistive devices Obtain PT/OT consults as needed * Plan of Care - Letitia Bey RN - 10/29/2024 3:59 AM CDT Goals: Clinical Goals for the Shift: vss comfort,telemonitoring,safety Fpc Patient Centered Goal for Treatment: Home w/ Summary: Patient free from fall. Still on iv atb ,telemonitoring. Chg bath done. Lab workups in am. For possible home today. Problem: Discharge Planning Goal: Understanding discharge needs will improve Outcome: Progressing Flowsheets (Taken 10/29/2024357) Understanding of discharge needs will improve: Discuss information regarding discharge instructions Identify discharge barriers Problem: Fall Risk Goal: Ability to state ways to decrease the risk of falls will improve Outcome: Progressing Flowsheets (Taken 10/21/2024450 by Rosana aMuricio, MAUREEN) Ability to state ways to decrease the risk of falls will improve: Teach fall prevention measures Teach information regarding appropriate enviornmental changes Goal: Will remain free from falls Flowsheets (Taken 10/29/2024357) Will remain free from falls: Assess risk factors for falls Problem: Cardiovascular Goal: Maintains optimal cardiac output and hemodynamic stability Flowsheets (Taken 10/29/2024357) Maintain optimal cardiac output and hemodynamic Stability: Monitor vital signs, rhythm, and trends Assess quality of pulses, skin color and temperature Problem: Lack of Knowledge Goal: Ability to develop a pain control plan will improve Outcome: Progressing Flowsheets (Taken 10/29/2024 9876) Ability to develop a pain control plan will improve: Explain causes of pain and how long pain can be expected to last Educate pain scale for assessing level of pain * Plan of Care - Vernell Cuenca RN - 10/28/2024 5:11 PM CDT Goals: Clinical Goals for the Shift: vss, i&O charting, comfort and safety Events Director Patient Centered Goal for Treatment: Home w/ Problem: Fall Risk Goal: Ability to state ways to decrease the risk of falls will improve Outcome: Not Progressing Goal: Will remain free from falls Outcome: Not Progressing Goal: Will remain free from injury from falls Outcome: Not Progressing Problem: Respiratory Goal: Achieves optimal ventilation and oxygenation Outcome: Not Progressing Goal: Ability to maintain a clear airway will improve Outcome: Not Progressing Goal: Mechanical Ventilation will be safely managed Outcome: Not Progressing Problem: Cardiovascular Goal: Maintains optimal cardiac output and hemodynamic stability Outcome: Not Progressing Goal: Absence of cardiac dysrhythmias or at baseline Outcome: Not Progressing Goal: Cardiovascular status will improve Outcome: Not Progressing * Plan of Care - Jeanette Garber RN - 10/28/2024 2:25 PM CDT 10/21/24 3880 Discharge Planning Support System Spouse/Significant Other;Children Anticipated discharge level of care Private residence Does the patient need discharge transport arranged? No Post Acute Care Plan Post Acute Care Needs Identified No Patient has orders for a home O2 study CM requested RT complete it today so CM could have O2 supplied to the patient before the weekend. She stated she would try but had a large amount of assessmentsto complete. Patient is set up with [facility]. He will return home with his . His family will supply discharge transportation. IMM complete. His discharge disposition code is 06. * Plan of Care - Sofía Greer - 10/28/2024 3:53 AM CDT Goals: Clinical Goals for the Shift: vss, i&O charting, comfort and safety Fpc Patient Centered Goal for Treatment: Home w/ Summary: Patient free from fall and injury. Continued with oxygen administration, unable to wean as patient desats. Administered scheduled antibiotic. Increased urinary output, closely monitored I&O. Plan to discharge to home with guerrero's. Problem: Fall Risk Goal: Ability to state ways to decrease the risk of falls will improve Outcome: Ongoing Problem: Fall Risk Goal: Will remain free from falls Outcome: Ongoing Problem: Fall Risk Goal: Will remain free from injury from falls Outcome: Ongoing Problem: Respiratory Goal: Achieves optimal ventilation and oxygenation Outcome: Ongoing Problem: Neurosensory Goal: Achieves stable or improved neurological status Outcome: Ongoing Problem: Neurosensory Goal: Achieves maximal functionality and self care Outcome: Ongoing Problem: Cardiovascular Goal: Maintains optimal cardiac output and hemodynamic stability Outcome: Ongoing Problem: Cardiovascular Goal: Cardiovascular status will improve Outcome: Ongoing Problem: Skin/Tissue Integrity Goal: Skin integrity remains intact Outcome: Ongoing Problem: Musculoskeletal Goal: Maintain proper alignment of affected body part Outcome: Ongoing Problem: Musculoskeletal Goal: Return ADL status to a safe level of function Outcome: Ongoing Problem: Musculoskeletal Goal: Ability to perform activities at highest level will improve Outcome: Ongoing Problem: Musculoskeletal Goal: Mobility, ROM and muscle strength will improve Outcome: Ongoing Problem: Genitourinary Goal: Urinary catheter remains patent Outcome: Ongoing Problem: Lack of Knowledge Goal: Ability to develop a pain control plan will improve Outcome: Ongoing Problem: Medication Goal: Satisfaction with pain management medication regimen will improve Outcome: Ongoing * Plan of Care - Rylee Sheikh MSW - 10/27/2024 2:45 PM CDT CM informed that pt's requested transportation resources, they reside in [place]. provided the following resources to cm who will provide it to pt's : [employer] provides transportation for a fee: ext [phone] https://[email or web address]?utm_source=lucina&utm_medium=[facility]&ut_campaign=[id number]&utm_c ontent=& amp;utm_term=go%20go%20grandparents&rtd=[email or web address]&[id number] [employer]: [phone] www.[employer] [place] [facility]: [phone] Rylee Sheikh LMSW [employer] Technician Case Management 4th Floor [phone] 10/27/24 2:46 PM * Plan of Care - Jeanette Garber RN - 10/27/2024 2:41 PM CDT 10/21/24 1540 Discharge Planning Support System Spouse/Significant Other;Children Anticipated discharge level of care Private residence Does the patient need discharge transport arranged? No Post Acute Care Plan Post Acute Care Needs Identified No Patient will discharge home with a guerrero catheter. He will need home O2 assessment due to RN inability to wean him off of oxygen. He is not on any O2 at base line. Patients asked to speak with MELISSA and she requested home health and resources for transportation. She also wanted to know the process for home oxygen. CM explained all requested things to patients . Patient lives in a duplex with his . He reports he is independent with all of his own self care. He also reports he drives without issue. His only DME is a cane. He named his Eliu his healthcare facility administrator. His goal at time of discharge is to return home. No recommendations from PT/OT yet. His will supply discharge transpo rtation. No known discharge needs at this time. CM will continue to follow for discharge needs. * Plan of Care - Nolvia Malik - 10/27/2024 2:16 PM CDT Goals: Clinical Goals for the Shift: vss, i & O charting, comfort and safety Fpc Patient Centered Goal for Treatment: Home w/ Summary: Due to urology recommend, will Dc with guerrero and trial to void outpatient Urine no more clotting and blood, clear and yellow normal Still on IV lasix 2L O2 Problem: Discharge Planning Goal: Understanding discharge needs will improve Outcome: Ongoing Problem: Fall Risk Goal: Ability to state ways to decrease the risk of falls will improve Outcome: Ongoing Goal: Will remain free from falls Outcome: Ongoing Goal: Will remain free from injury from falls Outcome: Ongoing Problem: Respiratory Goal: Achieves optimal ventilation and oxygenation Outcome: Ongoing Goal: Ability to maintain a clear airway will improve Outcome: Ongoing Goal: Mechanical Ventilation will be safely managed Outcome: Ongoing Problem: Neurosensory Goal: Achieves stable or improved neurological status Outcome: Ongoing Goal: Achieves maximal functionality and self care Outcome: Ongoing Problem: Cardiovascular Goal: Maintains optimal cardiac output and hemodynamic stability Outcome: Ongoing Goal: Absence of cardiac dysrhythmias or at baseline Outcome: Ongoing Goal: Cardiovascular status will improve Outcome: Ongoing Problem: Skin/Tissue Integrity Goal: Skin integrity remains intact Outcome: Ongoing Problem: Musculoskeletal Goal: Return mobility to safest level of function Outcome: Ongoing Goal: Maintain proper alignment of affected body part Outcome: Ongoing Goal: Return ADL status to a safe level of function Outcome: Ongoing Goal: Ability to perform activities at highest level will improve Outcome: Ongoing Goal: Mobility, ROM and muscle strength will improve Outcome: Ongoing Problem: Genitourinary Goal: Urinary catheter remains patent Outcome: Ongoing Problem: Lack of Knowledge Goal: Ability to develop a pain control plan will improve Outcome: Ongoing Problem: Medication Goal: Satisfaction with pain management medication regimen will improve Outcome: Ongoing Problem: Sensory Goal: Ability to identify factors that increase pain levels will improve while working to decrease the patient's pain levels Outcome: Ongoing Problem: Coping Goal: Ability to cope will improve Outcome: Ongoing Problem: Health Behavior Goal: Identification of resources available to assist in meeting health care needs will improve Outcome: Ongoing * Plan of Jenny - Sofía Greer - 10/27/2024 3:57 AM CDT Goals: Clinical Goals for the Shift: vss, i & O charting, comfort and safety Fpc Patient Centered Goal for Treatment: Home w/ Summary: Patient free from fall and injury. Administered scheduled antibiotic. On continuous telemetry monitoring. On 02 support via NC. Problem: Fall Risk Goal: Ability to state ways to decrease the risk of falls will improve Outcome: Progressing Problem: Fall Risk Goal: Will remain free from falls Outcome: Progressing Problem: Fall Risk Goal: Will remain free from injury from falls Outcome: Progressing Problem: Respiratory Goal: Achieves optimal ventilation and oxygenation Outcome: Progressing Problem: Respiratory Goal: Ability to maintain a clear airway will improve Outcome: Progressing Problem: Respiratory Goal: Mechanical Ventilation will be safely managed Outcome: Progressing Problem: Neurosensory Goal: Achieves stable or improved neurological status Outcome: Progressing Problem: Neurosensory Goal: Achieves maximal functionality and self care Outcome: Progressing Problem: Cardiovascular Goal: Maintains optimal cardiac output and hemodynamic stability Outcome: Progressing Problem: Skin/Tissue Integrity Goal: Skin integrity remains intact Outcome: Progressing Problem: Musculoskeletal Goal: Return mobility to safest level of function Outcome: Progressing Problem: Musculoskeletal Goal: Maintain proper alignment of affected body part Outcome: Progressing Problem: Musculoskeletal Goal: Return ADL status to a safe level of function Outcome: Progressing Problem: Musculoskeletal Goal: Ability to perform activities at highest level will improve Outcome: Progressing Problem: Musculoskeletal Goal: Mobility, ROM and muscle strength will improve Outcome: Progressing Problem: Genitourinary Goal: Urinary catheter remains patent Outcome: Progressing Problem: Lack of Knowledge Goal: Ability to develop a pain control plan will improve Outcome: Progressing Problem: Medication Goal: Satisfaction with pain management medication regimen will improve Outcome: Progressing Problem: Sensory Goal: Ability to identify factors that increase pain levels will improve while working to decrease the patient's pain levels Outcome: Progressing Problem: Coping Goal: Ability to cope will improve Outcome: Progressing Problem: Health Behavior Goal: Identification of resources available to assist in meeting health care needs will improve Outcome: Progressing * Plan of Care - Nolvia Malik - 10/26/2024 2:01 PM CDT Goals: Clinical Goals for the Shift: vss, guerrero irrigation, tele monitoring, I & O Fpc Patient Centered Goal for Treatment: Home w/ Summary: Still on 2L O2, wean as tolerated Plan to DC with guerrero, will follow up with urology outpt Up to chair Remain free from fall Problem: Discharge Planning Goal: Understanding discharge needs will improve Outcome: Ongoing Problem: Fall Risk Goal: Ability to state ways to decrease the risk of falls will improve Outcome: Ongoing Goal: Will remain free from falls Outcome: Ongoing Goal: Will remain free from injury from falls Outcome: Ongoing Problem: Respiratory Goal: Achieves optimal ventilation and oxygenation Outcome: Ongoing Goal: Ability to maintain a clear airway will improve Outcome: Ongoing Goal: Mechanical Ventilation will be safely managed Outcome: Ongoing Problem: Neurosensory Goal: Achieves stable or improved neurological status Outcome: Ongoing Goal: Achieves maximal functionality and self care Outcome: Ongoing Problem: Cardiovascular Goal: Maintains optimal cardiac output and hemodynamic stability Outcome: Ongoing Goal: Absence of cardiac dysrhythmias or at baseline Outcome: Ongoing Goal: Cardiovascular status will improve Outcome: Ongoing Problem: Skin/Tissue Integrity Goal: Skin integrity remains intact Outcome: Ongoing Problem: Musculoskeletal Goal: Return mobility to safest level of function Outcome: Ongoing Goal: Maintain proper alignment of affected body part Outcome: Ongoing Goal: Return ADL status to a safe level of function Outcome: Ongoing Goal: Ability to perform activities at highest level will improve Outcome: Ongoing Goal: Mobility, ROM and muscle strength will improve Outcome: Ongoing Problem: Genitourinary Goal: Urinary catheter remains patent Outcome: Ongoing Problem: Lack of Knowledge Goal: Ability to develop a pain control plan will improve Outcome: Ongoing Problem: Medication Goal: Satisfaction with pain management medication regimen will improve Outcome: Ongoing Problem: Sensory Goal: Ability to identify factors that increase pain levels will improve while working to decrease the patient's pain levels Outcome: Ongoing Problem: Coping Goal: Ability to cope will improve Outcome: Ongoing Problem: Health Behavior Goal: Identification of resources available to assist in meeting health care needs will improve Outcome: Ongoing * Plan of Care - Sofía Greer - 10/26/2024 5:13 AM CDT Goals: Clinical Goals for the Shift: vss, guerrero irrigation, tele monitoring, I & O Events Director Patient Centered Goal for Treatment: Home w/ Summary: Patient free from pain and injury. Administered scheduled antibiotic. Guerrero irrigated twice, small clots present. On continuous telemetry monitoring. Problem: Fall Risk Goal: Ability to state ways to decrease the risk of falls will improve Outcome: Progressing Goal: Will remain free from falls Outcome: Progressing Goal: Will remain free from injury from falls Outcome: Progressing Problem: Neurosensory Goal: Achieves stable or improved neurological status Outcome: Progressing Goal: Achieves maximal functionality and self care Outcome: Progressing Problem: Cardiovascular Goal: Maintains optimal cardiac output and hemodynamic stability Outcome: Progressing Problem: Skin/Tissue Integrity Goal: Skin integrity remains intact Outcome: Progressing Problem: Musculoskeletal Goal: Return mobility to safest level of function Outcome: Progressing Problem: Musculoskeletal Goal: Maintain proper alignment of affected body part Outcome: Progressing Problem: Musculoskeletal Goal: Return ADL status to a safe level of function Outcome: Progressing Problem: Musculoskeletal Goal: Ability to perform activities at highest level will improve Outcome: Progressing Problem: Musculoskeletal Goal: Mobility, ROM and muscle strength will improve Outcome: Progressing Problem: Genitourinary Goal: Urinary catheter remains patent Outcome: Progressing Problem: Lack of Knowledge Goal: Ability to develop a pain control plan will improve Outcome: Progressing Problem: Medication Goal: Satisfaction with pain management medication regimen will improve Outcome: Progressing Problem: Sensory Goal: Ability to identify factors that increase pain levels will improve while working to decrease the patient's pain levels Outcome: Progressing Problem: Coping Goal: Ability to cope will improve Outcome: Progressing Problem: Health Behavior Goal: Identification of resources available to assist in meeting health care needs will improve Outcome: Progressing * Plan of Care - Jeanette Garber RN - 10/25/2024 3:15 PM CDT 10/21/24 1330 Discharge Planning Support System Spouse/Significant Other;Children Anticipated discharge level of care Private residence Does the patient need discharge transport arranged? No Post Acute Care Plan Post Acute Care Needs Identified No Patient continues on IV Lasix and IV Unasyn. He continues on 2 L/O2/NC he doesn't have home oxygen.He may need a walk study prior to discharge. Patient lives in a duplex with his . He reports heis independent with all of his own self care. He also reports he drives without issue. His only DMEis a cane. He named his Eliu his healthcare facility administrator. His goal at time of discharge is to return home. No recommendations from PT/OT yet. His will supply discharge transportation. No known discharge needs at this time. CM will continue to follow for discharge needs. * Plan of Care - Feli Yepez - 10/25/2024 6:23 AM CDT Problem: Discharge Planning Goal: Understanding discharge needs will improve Outcome: Progressing Problem: Fall Risk Goal: Will remain free from falls Outcome: Progressing Problem: Respiratory Goal: Ability to maintain a clear airway will improve Outcome: Progressing Problem: Respiratory Goal: Achieves optimal ventilation and oxygenation Outcome: Progressing Problem: Neurosensory Goal: Achieves stable or improved neurological status Outcome: Progressing Problem: Musculoskeletal Goal: Mobility, ROM and muscle strength will improve Outcome: Progressing Problem: Genitourinary Goal: Urinary catheter remains patent Outcome: Progressing Problem: Lack of Knowledge Goal: Ability to develop a pain control plan will improve Outcome: Progressing Problem: Medication Goal: Satisfaction with pain management medication regimen will improve Outcome: Progressing Problem: Coping Goal: Ability to cope will improve Outcome: Progressing Goals: Clinical Goals for the Shift: VSS, Abx, safety, O2 therapy Events Director Patient Centered Goal for Treatment: return to baseline Summary: Pt is resting well in bed. AOX4. Continuing with 02 2 litre via nasal cannula. Needed pain med x1. * Plan of Care - Lorri Swan RRT - 10/24/2024 12:13 PM CDT Respiratory Care Plan Note Oxygen Therapy Patient is currently requiring 2L O2 via nasal cannula Oxygen therapy will be weaned as tolerated. Patient reports that their pre-admission baseline was room air Inhaled Medications Patient assessed and scored per the inhaled bronchodilator protocol criteria. Patient preference and subjective response to therapy used in conjunction with this score to create the current bronchodilator regimen. Current Inhaled Medications: Q4 Duonbe There are no reported allergies to any inhaled medications. * Plan of Care - Feli Yepez - 10/24/2024 6:16 AM CDT Problem: Discharge Planning Goal: Understanding discharge needs will improve Outcome: Progressing Problem: Fall Risk Goal: Will remain free from falls Outcome: Progressing Problem: Respiratory Goal: Ability to maintain a clear airway will improve Outcome: Progressing Problem: Skin/Tissue Integrity Goal: Skin integrity remains intact Outcome: Progressing Goals: Clinical Goals for the Shift: VSS, Abx, safety, O2 therapy Fpc Patient Centered Goal for Treatment: return to baseline Summary: Pt is resting well in bed. He's AOX4. Continuing with abx. Needed pain med x1 and reported full relief. He's still having bloody urine. * Plan of Care - Susana Harris - 10/23/2024 6:23 PM CDT Goals: Clinical Goals for the Shift: VSS, Abx, safety, O2 therapy Events Director Patient Centered Goal for Treatment: return to baseline Summary: Patient resting on the bed. . Did retain the urine despite having the guerrero's. Bladder scan was done scan volume >700 ml. Flush the guerrero's and the drained the urine thereafter. Waiting for the urology consult. Still have a hematuria. Problem: Fall Risk Goal: Ability to state ways to decrease the risk of falls will improve Outcome: Ongoing Goal: Will remain free from falls Outcome: Ongoing Goal: Will remain free from injury from falls Outcome: Ongoing Problem: Respiratory Goal: Achieves optimal ventilation and oxygenation Outcome: Ongoing Goal: Ability to maintain a clear airway will improve Outcome: Ongoing Goal: Mechanical Ventilation will be safely managed Outcome: Ongoing Problem: Neurosensory Goal: Achieves stable or improved neurological status Outcome: Ongoing Goal: Achieves maximal functionality and self care Outcome: Ongoing Problem: Cardiovascular Goal: Maintains optimal cardiac output and hemodynamic stability Outcome: Ongoing Goal: Absence of cardiac dysrhythmias or at baseline Outcome: Ongoing Goal: Cardiovascular status will improve Outcome: Ongoing Problem: Discharge Planning Goal: Understanding discharge needs will improve Outcome: Ongoing * Plan of Care - Feli Yepez - 10/23/2024 6:42 AM CDT Problem: Fall Risk Goal: Will remain free from falls Outcome: Progressing Problem: Respiratory Goal: Achieves optimal ventilation and oxygenation Outcome: Progressing Problem: Genitourinary Goal: Urinary catheter remains patent Outcome: Progressing Goals: Clinical Goals for the Shift: VSS, Abx, safety, O2 therapy Events Director Patient Centered Goal for Treatment: return to baseline Summary: Pt is resting in bed. He's AOX4. Had urine retention despite having guerrero in place, bladder scan done which showed urine >302 ml , LAUNDRY MACHINE TENDER informed and said we try adjusting the guerrero or place a new guerrero. Readjustment of the guerrero done with no success, and a new guerrero placed and 400 ml of bloody urine drained. Continuing with tele and abx. He's still on O2 2 litre via nasal cannula. * Plan of Care - Susana Harris - 10/22/2024 4:17 PM CDT Goals: Clinical Goals for the Shift: VSS, Abx, safety, O2 therapy Fpc Patient Centered Goal for Treatment: return to baseline Summary: patient resting on the bed. Hematuria present, warfarin hold. Did not complain of pain. Problem: Fall Risk Goal: Ability to state ways to decrease the risk of falls will improve Outcome: Ongoing Goal: Will remain free from falls Outcome: Ongoing Goal: Will remain free from injury from falls Outcome: Ongoing Problem: Respiratory Goal: Achieves optimal ventilation and oxygenation Outcome: Ongoing Goal: Ability to maintain a clear airway will improve Outcome: Ongoing Goal: Mechanical Ventilation will be safely managed Outcome: Ongoing Problem: Cardiovascular Goal: Maintains optimal cardiac output and hemodynamic stability Outcome: Ongoing Goal: Absence of cardiac dysrhythmias or at baseline Outcome: Ongoing Goal: Cardiovascular status will improve Outcome: Ongoing Problem: Neurosensory Goal: Achieves stable or improved neurological status Outcome: Ongoing Goal: Achieves maximal functionality and self care Outcome: Ongoing * Plan of Care - Bill Chau RN - 10/22/2024 4:00 AM CDT Goals: Clinical Goals for the Shift: VSS, Abx, safety, O2 therapy [facility]pc Patient Centered Goal for Treatment: return to baseline Summary: Patient continues on 4 L O2 with sats at 90% Not in obvious respiratory distress Receiving Scheduled IV antibiotic and DuoNeb Comfort and safety measures in place * Plan of Care - Susana Harris - 10/21/2024 6:16 PM CDT Goals: Clinical Goals for the Shift: vss, iv abx, iv lasix, I&O, comfort/safety [facility] Patient Centered Goal for Treatment: return to baseline Summary: patient complaining of pain in lower abdomen. Had a urinary retention did the bladder scanand straight cath done x 1 and guerrero's was inserted on second time as ordered. Problem: Fall Risk Goal: Ability to state ways to decrease the risk of falls will improve Outcome: Ongoing Goal: Will remain free from falls Outcome: Ongoing Goal: Will remain free from injury from falls Outcome: Ongoing Problem: Respiratory Goal: Achieves optimal ventilation and oxygenation Outcome: Ongoing Goal: Ability to maintain a clear airway will improve Outcome: Ongoing Goal: Mechanical Ventilation will be safely managed Outcome: Ongoing Problem: Cardiovascular Goal: Maintains optimal cardiac output and hemodynamic stability Outcome: Ongoing Goal: Absence of cardiac dysrhythmias or at baseline Outcome: Ongoing Goal: Cardiovascular status will improve Outcome: Ongoing Problem: Skin/Tissue Integrity Goal: Skin integrity remains intact Outcome: Ongoing Problem: Musculoskeletal Goal: Return mobility to safest level of function Outcome: Ongoing Goal: Maintain proper alignment of affected body part Outcome: Ongoing Goal: Return ADL status to a safe level of function Outcome: Ongoing Goal: Ability to perform activities at highest level will improve Outcome: Ongoing Goal: Mobility, ROM and muscle strength will improve Outcome: Ongoing * Plan of Care - Meaghan Lerner RN - 10/21/2024 3:40 PM CDT 10/21/24 1540 Discharge Planning Support System Spouse/Significant Other;Children Anticipated discharge level of care Private residence Does the patient need discharge transport arranged? No CM met with patient to discuss recommendations for HHC at discharge. Patient states he is tired anddoesn't know, he will need to discuss things with his . CM agreed to follow-up with patient next week. Palliative care consult entered for support and GOC conversation. Meaghan Lerner RN, BSN, ACM Banking Services Advisor [phone] * Plan of Care - Rosana Mauricio RN - 10/21/2024 4:51 AM CDT Goals: Clinical Goals for the Shift: vss, iv abx, iv lasix, I&O, comfort/safety [facility] Patient Centered Goal for Treatment: return to baseline Summary: Problem: Fall Risk Goal: Ability to state ways to decrease the risk of falls will improve Outcome: Progressing Flowsheets (Taken 10/21/2024 0451) Ability to state ways to decrease the risk of falls will improve: Teach fall prevention measures Teach information regarding appropriate enviornmental changes * Plan of Care - Rosana Mauricio RN - 10/20/2024 2:45 AM CDT Problem: Fall Risk Goal: Ability to state ways to decrease the risk of falls will improve Outcome: Progressing Flowsheets (Taken 10/20/2024 0245) Ability to state ways to decrease the risk of falls will improve: Teach fall prevention measures Goals: Clinical Goals for the Shift: monitor respiratory status, I & O's, safety and comfort Events Director Patient Centered Goal for Treatment: return to baseline Summary: * Initial Assessments - Jeanette Garber RN - 10/19/2024 11:52 AM CDT CM Initial Assessment Interview Note Information Obtained From: Patient (10/19/24 1150) Admission Source: Transfer from the ED. Impression: Admitted IP 10/18/24 for acute congestive heart failure. Patient lives in a duplex with his . He reports he is independent with all of his own self care. He also reports he drives without issue. His only DME is a cane. He named his Eliu his healthcare facility administrator. Plan Includes: His goal at time of discharge is to return home. No recommendations from PT/OT yet. His will supply discharge transportation. No known discharge needs at this time. CM will continue to follow for discharge needs. Additional Information: CM met with patient at bedside to complete initial discharge planning. Demographics verified via face sheet. Primary Source of Transportation: Self and Does the patient need discharge transport arranged?: No (10/19/24 1150) Health Insurance Coverage: Medicare A and B and [facility] Commercial Prescription Coverage: [facility] Commercial Pharmacy: [id number] - [facility] [address] [facility] [address] [facility] [id number] Primary Care Provider: Sofie Kelly MD Prior to Admission: Functional Status: Independent with ADLs Primary Caregiver: Self Support System: Spouse/Significant Other, Children When was the last time you have seen your PCP?: Within last 6 months Home Care Services: No Outpatient Services: No Durable Medical Equipment: Cane (single prong) Living Arrangements: Spouse/significant other Type of Residence: Apartment (Duplex) Medication management: Independent (10/19/24 1150) SDOH: Transportation: In the past 12 months, has lack of transportation kept you from medical appointments or from getting medications?: No In the past 12 months, has lack of transportation kept you from meetings, work, or from getting things needed for daily living?: No (10/19/24 1152) Financial Resource: How hard is it for you to pay for the very basics like food, housing, medical care, and heating?: Not very hard (10/19/24 1152) Housing: In the last 12 months, was there a time when you were not able to pay the mortgage or rent on time?: No In the past 12 months, how many times have you moved where you were living?: 0 At any time in the past 12 months, were you homeless or living in a alf (including now)?: No (10/19/24 115) Utilities: No, (10/19/241151) Social Connections: In a typical week, how many times do you talk on the phone with family, friends, or neighbors?: More than three times a week How often do you get together with friends or relatives?: More than three times a week How often do you attend buddhist or rastafarian services?: More than 4 times per year Do you belong to any clubs or organizations such as buddhist groups, unions, fraternal or athletic groups, or school groups?: No How often do you attend meetings of the clubs or organizations you belong to?: Never Are you , , , , never , or living with a partner?: (10/19/241151) Food Insecurity: Within the past 12 months, you worried that your food would run out before you got the money to buymore.: Never true Within the past 12 months, the food you bought just didn't last and you didn't have money to get more.: Never true (10/19/24 115) Behavioral Health Services: Behavioral Health Services: No (10/19/241149) Anticipated Level of Care: Anticipated discharge level of care: Private residence Pt/Family agrees with Anticipated Level of Care: Yes (10/19/24 115) Patient expects to be Discharged to: Private residence, (10/19/24 115) Patient's Identified Problem/Goal Problem: Ensure acute medical needs are met and that patient has a safe discharge plan. Goal: Secure a discharge plan that patient/family are agreeable with and ensure patient has continuum of care. Case management will follow for discharge planning and send referrals as needed. Jeanette Garber RN * Plan of Care - Skye Griffith RN - 10/19/2024 1:44 AM CDT Problem: Discharge Planning Goal: Understanding discharge needs will improve Outcome: Progressing Problem: Fall Risk Goal: Ability to state ways to decrease the risk of falls will improve Outcome: Progressing Goal: Will remain free from falls Outcome: Progressing Goal: Will remain free from injury from falls Outcome: Progressing Problem: Respiratory Goal: Achieves optimal ventilation and oxygenation Outcome: Progressing Goal: Ability to maintain a clear airway will improve Outcome: Progressing Goal: Mechanical Ventilation will be safely managed Outcome: Progressing Problem: Neurosensory Goal: Achieves stable or improved neurological status Outcome: Progressing Goal: Achieves maximal functionality and self care Outcome: Progressing Problem: Cardiovascular Goal: Maintains optimal cardiac output and hemodynamic stability Outcome: Progressing Goal: Absence of cardiac dysrhythmias or at baseline Outcome: Progressing Goal: Cardiovascular status will improve Outcome: Progressing Problem: Skin/Tissue Integrity Goal: Skin integrity remains intact Outcome: Progressing Problem: Musculoskeletal Goal: Return mobility to safest level of function Outcome: Progressing Goal: Maintain proper alignment of affected body part Outcome: Progressing Goal: Return ADL status to a safe level of function Outcome: Progressing Goal: Ability to perform activities at highest level will improve Outcome: Progressing Goal: Mobility, ROM and muscle strength will improve Outcome: Progressing Goals: Clinical Goals for the Shift: monitor respiratory status, I & O's, safety and comfort Events Director Patient Centered Goal for Treatment: return to baseline Summary: Remains on O2 via NC at 3 LPM, no respiratory distress noted. Paced rhythm on tele. Awaiting consults. Kept safe and monitored. * Plan of Care - Silverio Burk RN - 10/18/2024 4:23 PM CDT Goals: Problem: Discharge Planning Goal: Understanding discharge needs will improve Outcome: Progressing Problem: Fall Risk Goal: Ability to state ways to decrease the risk of falls will improve Outcome: Progressing Goal: Will remain free from falls Outcome: Progressing Goal: Will remain free from injury from falls Outcome: Progressing Problem: Respiratory Goal: Achieves optimal ventilation and oxygenation Outcome: Progressing Goal: Ability to maintain a clear airway will improve Outcome: Progressing Goal: Mechanical Ventilation will be safely managed Outcome: Progressing documented in this encounter Plan of Treatment Scheduled Referrals Name Type Priority Associated Diagnoses Order Schedule Ambulatory referral to Home Health Outpatient Referral Routine Acute congestive heart failure, unspecified heart failure type (HCC) 1 Occurrences starting 10/27/2024 until 04/28/2025 documented as of this encounter Procedures Procedure Name Priority Date/Time Associated Diagnosis Comments EGFR Routine 11/03/2024 6:28 AM CDT DIFFERENTIAL AUTO Routine 11/03/2024 6:2 8 AM CDT CBC WITH AUTO DIFFERENTIAL Routine 11/03/2024 6:28 AM CDT PROTIME-INR Routine 11/03/2024 6:28 AM CDT RENAL FUNCTION PANEL Routine 11/03/2024 6:28 AM CDT EGFR Routine 11/02/2024 7:24 AM CDT DIFFERENTIAL AUTO Routine 11/02/2024 7:2 4 AM CDT CBC WITH AUTO DIFFERENTIAL Routine 11/02/2024 7:24 AM CDT PROTIME-INR Routine 11/02/2024 7:24 AM CDT RENAL FUNCTION PANEL Routine 11/02/2024 7:24 AM CDT XR CHEST PA LATERAL 2 VIEWS IP Routine 11/01/2024 9:07 AM CDT EGFR Routine 11/01/2024 4:00 AM CDT DIFFERENTIAL AUTO Routine 11/01/2024 4:0 0 AM CDT CBC WITH AUTO DIFFERENTIAL Routine 11/01/2024 4:00 AM CDT PROTIME-INR Routine 11/01/2024 4:00 AM CDT RENAL FUNCTION PANEL Routine 11/01/2024 4:00 AM CDT EGFR Timed 10/31/2024 12:06 AM CDT DIFFERENTIAL AUTO Routine 10/31/2024 12: 06 AM CDT PRO B-TYPE NATRIURETIC PEPTIDE Routine 10/31/2024 12:06 AM CDT CBC WITH AUTO DIFFERENTIAL Routine 10/31/2024 12:06 AM CDT PROTIME-INR Routine 10/31/2024 12:06 AM CDT BASIC METABOLIC PANEL Timed 10/31/2024 12:06 AM CDT XR CHEST 1 VIEW ED Urgent/IP Urgent 10/30/2024 7:26 PM CDT EGFR Timed 10/30/2024 4:03 PM CDT BASIC METABOLIC PANEL Timed 10/30/2024 4:03 PM CDT EGFR Timed 10/30/2024 7:25 AM CDT PRO B-TYPE NATRIURETIC PEPTIDE Add-On 10/30/2024 7:25 AM CDT TSH Routine 10/30/2024 7:25 AM CDT BASIC METABOLIC PANEL Timed 10/30/2024 7:25 AM CDT EGFR Timed 10/30/2024 12:26 AM CDT DIFFERENTIAL AUTO Routine 10/30/2024 12: 26 AM CDT CBC WITH AUTO DIFFERENTIAL Routine 10/30/2024 12:26 AM CDT PROTIME-INR Routine 10/30/2024 12:26 AM CDT BASIC METABOLIC PANEL Timed 10/30/2024 12:26 AM CDT EGFR Routine 10/29/2024 9:15 PM CDT BASIC METABOLIC PANEL Routine 10/29/2024 9:15 PM CDT EGFR Routine 10/29/2024 3:45 AM CDT DIFFERENTIAL AUTO Routine 10/29/2024 3:4 5 AM CDT CBC WITH AUTO DIFFERENTIAL Routine 10/29/2024 3:45 AM CDT PROTIME-INR Routine 10/29/2024 3:45 AM CDT BASIC METABOLIC PANEL Routine 10/29/2024 3:45 AM CDT SODIUM, URINE, RANDOM Routine 10/28/2024 12:12 PM CDT POTASSIUM, URINE, RANDOM Routine 10/28/2024 12:12 PM CDT OSMOLALITY, URINE Routine 10/28/2024 12: 12 PM CDT CHLORIDE, URINE, RANDOM Routine 10/28/2024 12:12 PM CDT HOME O2 EVAL (DESATURATION SCREEN) Routine 10/28/2024 12:01 PM CDT EGFR Routine 10/28/2024 4:13 AM CDT DIFFERENTIAL AUTO Routine 10/28/2024 4:1 3 AM CDT CBC WITH AUTO DIFFERENTIAL Routine 10/28/2024 4:13 AM CDT PROTIME-INR Routine 10/28/2024 4:13 AM CDT OSMOLALITY, BLOOD Add-On 10/28/2024 4:1 3 AM CDT MAGNESIUM Routine 10/28/2024 4:13 AM CDT BASIC METABOLIC PANEL Routine 10/28/2024 4:13 AM CDT XR CHEST 1 VIEW ED Urgent/IP Urgent 10/27/2024 11:28 AM CDT EGFR Routine 10/27/2024 6:26 AM CDT DIFFERENTIAL AUTO Routine 10/27/2024 6:2 6 AM CDT CBC WITH AUTO DIFFERENTIAL Routine 10/27/2024 6:26 AM CDT PROTIME-INR Routine 10/27/2024 6:26 AM CDT BASIC METABOLIC PANEL Routine 10/27/2024 6:26 AM CDT XR CHEST 1 VIEW IP Routine 10/26/2024 11:06 AM CDT EGFR Routine 10/26/2024 6:28 AM CDT DIFFERENTIAL AUTO Routine 10/26/2024 6:2 8 AM CDT THYROID FUNCTION CASCADE Routine 10/26/2024 6:28 AM CDT CBC WITH AUTO DIFFERENTIAL Routine 10/26/2024 6:28 AM CDT PROTIME-INR Routine 10/26/2024 6:28 AM CDT T4, FREE Routine 10/26/2024 6:28 AM CDT CORTISOL Routine 10/26/2024 6:28 AM CDT BASIC METABOLIC PANEL Routine 10/26/2024 6:28 AM CDT EGFR Routine 10/25/2024 6:58 AM CDT DIFFERENTIAL AUTO Routine 10/25/2024 6:5 8 AM CDT CBC WITH AUTO DIFFERENTIAL Routine 10/25/2024 6:58 AM CDT PROTIME-INR Routine 10/25/2024 6:58 AM CDT BASIC METABOLIC PANEL Routine 10/25/2024 6:58 AM CDT XR CHEST 1 VIEW IP Routine 10/24/2024 1:49 PM CDT EGFR Routine 10/24/2024 4:15 AM CDT DIFFERENTIAL AUTO Routine 10/24/2024 4:1 5 AM CDT CBC WITH AUTO DIFFERENTIAL Routine 10/24/2024 4:15 AM CDT PROTIME-INR Routine 10/24/2024 4:15 AM CDT BASIC METABOLIC PANEL Routine 10/24/2024 4:15 AM CDT XR CHEST 1 VIEW IP Routine 10/23/2024 7:31 AM CDT EGFR Routine 10/23/2024 3:35 AM CDT DIFFERENTIAL AUTO Routine 10/23/2024 3:3 5 AM CDT CBC WITH AUTO DIFFERENTIAL Routine 10/23/2024 3:35 AM CDT PROTIME-INR Routine 10/23/2024 3:35 AM CDT BASIC METABOLIC PANEL Routine 10/23/2024 3:35 AM CDT EGFR Routine 10/22/2024 3:54 AM CDT DIFFERENTIAL AUTO Routine 10/22/2024 3:5 4 AM CDT CBC WITH AUTO DIFFERENTIAL Routine 10/22/2024 3:54 AM CDT PROTIME-INR Routine 10/22/2024 3:54 AM CDT MAGNESIUM Routine 10/22/2024 3:54 AM CDT BASIC METABOLIC PANEL Routine 10/22/2024 3:[address] ABDOMEN PELVIS WO CONTRAST IP Routine 10/21/2024 5:39 AM CDT EGFR Routine 10/21/2024 5:17 AM CDT DIFFERENTIAL AUTO Routine 10/21/2024 5:1 7 AM CDT CBC WITH AUTO DIFFERENTIAL Routine 10/21/2024 5:17 AM CDT PROTIME-INR Routine 10/21/2024 5:17 AM CDT MAGNESIUM Routine 10/21/2024 5:17 AM CDT BASIC METABOLIC PANEL Routine 10/21/2024 5:17 AM CDT TRANSTHORACIC ECHO (TTE) COMPLETE W DOPPLER/CF W CONTRAST Routine 10/20/2024 1:23 PM CDT EGFR Routine 10/20/2024 6:38 AM CDT DIFFERENTIAL AUTO Routine 10/20/2024 6:3 8 AM CDT CBC WITH AUTO DIFFERENTIAL Routine 10/20/2024 6:38 AM CDT PROTIME-INR Routine 10/20/2024 6:38 AM CDT MAGNESIUM Routine 10/20/2024 6:38 AM CDT DIGOXIN LEVEL Timed 10/20/2024 6:38 AM CDT BASIC METABOLIC PANEL Routine 10/20/2024 6:38 AM CDT US RETROPERITONEAL COMPLETE IP Routine 10/19/2024 3:09 PM CDT URINALYSIS AND REFLEX TO MICROSCOPIC AND CULTURE Routine 10/19/2024 12:33 PM CDT STREP PNEUMONIAE AG, URINE Routine 10/19/2024 12:33 PM CDT PROTEIN / CREATININE RATIO, URINE, RANDOM Routine 10/19/2024 12:33 PM CDT LEGIONELLA ANTIGEN, URINE Routine 10/19/2024 12:33 PM CDT LETCIIA QUALITATIVE WITH REFLEX TO LETICIA QUANTITATIVE Routine 10/19/2024 12:15 PM CDT ANTI-NEUTROPHILIC CYTOPLASMIC ANTIBODY Routine 10/19/2024 12:15 PM CDT ERYTHROCYTE SEDIMENTATION RATE Routine 10/19/2024 12:15 PM CDT C3 COMPLEMENT Routine 10/19/2024 12:15 PM CDT HEMOGLOBIN A1C Routine 10/19/2024 12:15 PM CDT EGFR Routine 10/19/2024 5:12 AM CDT DIFFERENTIAL AUTO Routine 10/19/2024 5:1 2 AM CDT CBC WITH AUTO DIFFERENTIAL Routine 10/19/2024 5:12 AM CDT PROTIME-INR Routine 10/19/2024 5:12 AM CDT MAGNESIUM Routine 10/19/2024 5:12 AM CDT BASIC METABOLIC PANEL Routine 10/19/2024 5:12 AM CDT TROPONIN T HIGH-SENSITIVITY 6-HOUR Timed 10/18/2024 4:32 PM CDT DIGOXIN LEVEL Timed 10/18/2024 4:32 PM CDT TROPONIN T HIGH-SENSITIVITY 4-HR Timed 10/18/2024 2:[address] CHEST WO CONTRAST ED 10/18/2024 2:00 PM CDT BLOOD CULTURE STAT 10/18/2024 1:28 PM CDT BLOOD CULTURE STAT 10/18/2024 1:28 PM CDT TROPONIN T HIGH-SENSITIVITY 2-HOUR Timed 10/18/2024 12:26 PM CDT PRO B-TYPE NATRIURETIC PEPTIDE Add-On 10/18/2024 12:26 PM CDT XR CHEST 1 VIEW ED 10/18/2024 12:12 PM CDT TROPONIN T HIGH-SENSITIVITY SERIES (BASELINE, 2HR, 4HR, 6HR) STAT 10/18/2024 10:41 AM CDT LACTATE STAT 10/18/2024 10:41 AM CDT EGFR STAT 10/18/2024 10:41 AM CDT DIFFERENTIAL AUTO STAT 10/18/2024 10: 41 AM CDT RESPIRATORY PATHOGEN PANEL STAT 10/18/2024 10:41 AM CDT CBC WITH AUTO DIFFERENTIAL STAT 10/18/2024 10:41 AM CDT COMPREHENSIVE METABOLIC PANEL STAT 10/18/2024 10:41 AM CDT ECG 12-LEAD Routine 10/18/2024 10:33 AM CDT documented in this encounter Results * (ABNORMAL) eGFR (11/03/2024 6:28 AM [...] MD LAB BLOOD ORDERABLES Final Resu lt [facility] [id number] Department [place] [address] * (ABNORMAL) Differential, auto (11/03/2024 6:28 AM CDT) Neutrophil abs 2.83 1.50 - 6.50 K/cumm Imm gran abs 0.04 0.00 - 0.10 K/cumm [facility] Lymphocyte abs 0.56(L) 0.80 - 3.30 K/cumm [facility] Monocyte abs 0.38 0.20 - 0.80 K/cumm [facility] Eosinophil abs 0.12 0.00 - 0.50 K/cumm [facility] Basophil abs 0.02 0.00 - 0.10 K/cumm [facility] Neutrophil pct 71.7 % [facility] Comment: Interpretive Data Percent cell count reference ranges are not reported, since discordance with absolute values may lead to misinterpretation of CBC data. Current Interpretive Data was last revised on 2017. Imm gran pct 1.0 % [facility] Comment: Interpretive Data Percent cell count reference ranges are not reported, since discordance with absolute values may lead to misinterpretation of CBC data. Current Interpretive Data was last revised on 2017. Lymphocyte pct 14.2 % [facility] Comment: Interpretive Data Percent cell count reference ranges are not reported, since discordance with absolute values may lead to misinterpretation of CBC data. Current Interpretive Data was last revised on 2017. Monocyte pct 9.6 % [facility] Comment: Interpretive Data Percent cell count reference ranges are not reported, since discordance with absolute values may lead to misinterpretation of CBC data. Current Interpretive Data was last revised on 2017. Eosinophil pct 3.0 % [facility] Comment: Interpretive Data Percent cell count reference ranges are not reported, since discordance with absolute values may lead to misinterpretation of CBC data. Current Interpretive Data was last revised on 2017. Basophil pct 0.5 % [facility] Comment: Interpretive Data Percent cell count reference ranges are not reported, since discordance with absolute values may lead to misinterpretation of CBC data. Current Interpretive Data was last revised on 2017. Blood 11/03/2024 6:28 AM CDT 11/03/2024 6:49 AM CDT Namrata Spencer LAUNDRY MACHINE TENDER LAB BLOOD ORDERABLES Final Result [facility] [id number] Department [place] [address] * (ABNORMAL) Renal function panel (11/03/2024 6:28 AM CDT) Sodium 133(L) 135 - 145 mmol/L Potassium, pl 3.6 3.3 - 4.9 mmol/L [facility] Chloride 94(L) 97 - 110 mmol/L [facility] CO2 31 22 - 32 mmol/L [facility] Anion gap 8 2 - 15 mmol/L [facility] BUN 25 6 - 25 mg/dL [facility] Creatinine 1.22 0.80 - 1.30 mg/dL [facility] Glucose 118 70 - 199 mg/dL [facility] Comment: Interpretive Data Fasting glucose >/= 126 [...] 2022. Calcium 8.1(L) 8.5 - 10.3 mg/dL [facility] Phosphorus, pl 2.4 2.3 - 4.5 mg/dL [facility] Albumin 2.8(L) 3.5 - 5.0 g/dL [facility] Blood 11/03/2024 6:28 AM CDT 11/03/2024 6:47 AM CDT us Ryan Bailey MD LAB BLOOD ORDERABLES Final Resu lt [facility] [id number] Department [place] [address] * (ABNORMAL) Protime-INR (11/03/2024 6:28 AM CDT) PT 42.2(H) 9.7 - 13.0 sec INR 3.80(H) 0.90 - 1.20 [facility] Comment: Interpretive data Oral anticoagulant therapeutic ranges: Venous thromboembolism prophylaxis or treatment: 2.0-3.0 CARDIOLOGY Standard range: 2.0-3.0 High-intensity range: 2.5-3.5 Refer to indication-specific guidelines for appropriate target ranges for prosthetic heart valve replacement. Current interpretive data was last revised on 2019. Blood 11/03/2024 6:28 AM CDT 11/03/2024 6:48 AM CDT Luan Guillermo DO LAB BLOOD ORDERABLES Fay l Result [facility] ROSALES [address] Department Mobile [employer] [place], [place] [id number] * (ABNORMAL) CBC with auto differential (11/03/2024 6:28 AM CDT) Pathologist [facility] WBC 3.95 3.80 - 9.90 K/cumm Hgb 12.0(L) 13.0 - 17.5 g/dL [facility] Hct 36.4(L) 38.9 - 50.3 % [facility] CH Plt 143(L) 150 - 400 K/cumm [facility] MPV 11.7 9.1 - 12.3 fL [facility] RBC 3.85(L) 4.30 - 5.80 M/cumm [facility] MCV 94.5 81.3 - 96.4 fL [facility] MCH 31.2 27.1 - 33.3 pg [facility] MCHC 33.0 32.3 - 35.7 g/dL [facility] CH RDW CV 16.5(H) 11.1 - 14.9 % [facility] RDW SD 57.1(H) 35.7 - 48.1 fL [facility] NRBC abs 0.00 0.00 - 0.01 K/cumm [facility] Blood 11/03/2024 6:28 AM CDT 11/03/2024 6:49 AM CDT Namrata Spencer LAUNDRY MACHINE TENDER LAB BLOOD ORDERABLES Final Result [facility] ROSAL[facility] [address] [place] [address] * (ABNORMAL) eGFR (11/02/2024 7:24 AM CDT) Pathologist [facility] eGFR 56(L) >=60 mL/min/1. 73 m2 Comment: [...] MD LAB BLOOD ORDERABLES Final Resu lt [facility] [id number] Department [place] [address] * (ABNORMAL) Differential, auto (11/02/2024 7:24 AM CDT) Neutrophil abs 3.09 1.50 - 6.50 K/cumm Imm gran abs 0.02 0.00 - 0.10 K/cumm [facility] Lymphocyte abs 0.54(L) 0.80 - 3.30 K/cumm [facility] Monocyte abs 0.35 0.20 - 0.80 K/cumm [facility] Eosinophil abs 0.09 0.00 - 0.50 K/cumm [facility] Basophil abs 0.02 0.00 - 0.10 K/cumm [facility] Neutrophil pct 75.2 % [facility] Comment: Interpretive Data Percent cell count reference ranges are not reported, since discordance with absolute values may lead to misinterpretation of CBC data. Current Interpretive Data was last revised on 2017. Imm gran pct 0.5 % [facility] Comment: Interpretive Data Percent cell count reference ranges are not reported, since discordance with absolute values may lead to misinterpretation of CBC data. Current Interpretive Data was last revised on 2017. Lymphocyte pct 13.1 % [facility] Comment: Interpretive Data Percent cell count reference ranges are not reported, since discordance with absolute values may lead to misinterpretation of CBC data. Current Interpretive Data was last revised on 2017. Monocyte pct 8.5 % [facility] Comment: Interpretive Data Percent cell count reference ranges are not reported, since discordance with absolute values may lead to misinterpretation of CBC data. Current Interpretive Data was last revised on 2017. Eosinophil pct 2.2 % [facility] Comment: Interpretive Data Percent cell count reference ranges are not reported, since discordance with absolute values may lead to misinterpretation of CBC data. Current Interpretive Data was last revised on 2017. Basophil pct 0.5 % [facility] Comment: Interpretive Data Percent cell count reference ranges are not reported, since discordance with absolute values may lead to misinterpretation of CBC data. Current Interpretive Data was last revised on 2017. Blood 11/02/2024 7:24 AM CDT 11/02/2024 7:29 AM CDT Namrata Spencer NP LAB BLOOD ORDERABLES Final Result [facility] [id number] Department [place] [address] * (ABNORMAL) Renal function panel (11/02/2024 7:24 AM CDT) Sodium 135 135 - 145 mmol/L Potassium, pl 3.7 3.3 - 4.9 mmol/L [facility] Chloride 96(L) 97 - 110 mmol/L [facility] CO2 32 22 - 32 mmol/L [facility] Anion gap 7 2 - 15 mmol/L [facility] BUN 29(H) 6 - 25 mg/dL [facility] Creatinine 1.27 0.80 - 1.30 mg/dL [facility] Glucose 119 70 - 199 mg/dL [facility] Comment: Interpretive Data Fasting glucose >/= 126 [...] 2022. Calcium 8.4(L) 8.5 - 10.3 mg/dL LAURIE Phosphorus, pl 2.5 2.3 - 4.5 mg/dL [facility] Albumin 2.9(L) 3.5 - 5.0 g/dL LAURIE Blood 11/02/2024 7:24 AM CDT 11/02/2024 7:29 AM CDT us Ryan Bailey MD LAB BLOOD ORDERABLES Final Resu lt Performing Organization Address [facility] Co de Phone Number LAURIE ROSALES [phone] [address] * (ABNORMAL) Protime-INR (11/02/2024 7:24 AM CDT) [...] 7:24 AM CDT 11/02/2024 7:30 AM CDT us Luan Guillermo DO LAB BLOOD ORDERABLES Fay l Result Performing Organization Address City/[facility] Co de Phone Number LAURIE ROSALES [id number] [place] [place] [address] * (ABNORMAL) CBC with auto differential (11/02/2024 7:24 AM CDT) WBC 4.11 3.80 - 9.90 K/cumm Hgb 12.2(L) 13.0 - 17.5 g/dL [facility] Hct 36.7(L) 38.9 - 50.3 % [facility] Plt 147(L) 150 - 400 K/cumm [facility] MPV 11.0 9.1 - 12.3 fL [facility] RBC 3.90(L) 4.30 - 5.80 M/cumm [facility] MCV 94.1 81.3 - 96.4 fL [facility] MCH 31.3 27.1 - 33.3 pg [facility] MCHC 33.2 32.3 - 35.7 g/dL [facility] CH RDW CV 16.6(H) 11.1 - 14.9 % [facility] RDW SD 57.5(H) 35.7 - 48.1 fL [facility] NRBC abs 0.00 0.00 - 0.01 K/cumm [facility] Blood 11/02/2024 7:24 AM CDT 11/02/2024 7:29 AM CDT Namrata Spencer NP LAB BLOOD ORDERABLES Final Result [facility] [id number] Department [place] [address] * XR Chest Pa Lateral 2 Views [...] 4:00 AM CDT 11/01/2024 4:22 AM CDT us Ryan Bailey MD LAB BLOOD ORDERABLES Final Resu lt [facility] [address] Department [place] [address] * (ABNORMAL) Differential, auto (11/01/2024 4:00 AM CDT) Neutrophil abs 2.11 1.50 - 6.50 K/cumm Imm gran abs 0.01 0.00 - 0.10 K/cumm [facility] Lymphocyte abs 0.44(L) 0.80 - 3.30 K/cumm [facility] Monocyte abs 0.30 0.20 - 0.80 K/cumm [facility] Eosinophil abs 0.10 0.00 - 0.50 K/cumm [facility] Basophil abs 0.01 0.00 - 0.10 K/cumm [facility] Neutrophil pct 71.1 % [facility] Comment: Interpretive Data Percent cell count reference ranges are not reported, since discordance with absolute values may lead to misinterpretation of CBC data. Current Interpretive Data was last revised on 2017. Imm gran pct 0.3 % [facility] Comment: Interpretive Data Percent cell count reference ranges are not reported, since discordance with absolute values may lead to misinterpretation of CBC data. Current Interpretive Data was last revised on 2017. Lymphocyte pct 14.8 % [facility] Comment: Interpretive Data Percent cell count reference ranges are not reported, since discordance with absolute values may lead to misinterpretation of CBC data. Current Interpretive Data was last revised on 2017. Monocyte pct 10.1 % [facility] Comment: Interpretive Data Percent cell count reference ranges are not reported, since discordance with absolute values may lead to misinterpretation of CBC data. Current Interpretive Data was last revised on 2017. Eosinophil pct 3.4 % [facility] Comment: Interpretive Data Percent cell count reference ranges are not reported, since discordance with absolute values may lead to misinterpretation of CBC data. Current Interpretive Data was last revised on 2017. Basophil pct 0.3 % [facility] Comment: Interpretive Data Percent cell count reference ranges are not reported, since discordance with absolute values may lead to misinterpretation of CBC data. Current Interpretive Data was last revised on 2017. Blood 11/01/2024 4:00 AM CDT 11/01/2024 4:22 AM CDT Namrata Vidya Spencer NP LAB BLOOD ORDERABLES Final Result [facility] [id number] Department [place] [address] * (ABNORMAL) Renal function panel (11/01/2024 4:00 [...] ORDERABLES Final Resu lt Performing Organization Address City/[facility] Co de Phone Number LAURIE ROSALES [id number] Department [place] [address] * (ABNORMAL) Protime-INR (11/01/2024 4:00 AM CDT) PT 29.6(H) 9.7 - 13.0 sec INR 2.69(H) 0.90 - 1.20 [facility] Comment: Interpretive data Oral anticoagulant therapeutic ranges: Venous thromboembolism prophylaxis or treatment: 2.0-3.0 CARDIOLOGY Standard range: 2.0-3.0 High-intensity range: 2.5-3.5 Refer to indication-specific guidelines for appropriate target ranges for prosthetic heart valve replacement. Current interpretive data was last revised on 2019. Blood 11/01/2024 4:00 AM CDT 11/01/2024 4:23 AM CDT Luan Guillermo DO LAB BLOOD ORDERABLES Fay l Result Performing Organization Address [facility] Co de Phone Number LAURIE ROSALES [phone] Department [place] [address] * (ABNORMAL) CBC with auto differential (11/01/2024 4:00 AM CDT) WBC 2.97(L) 3.80 - 9.90 K/cumm Hgb 12.1(L) 13.0 - 17.5 g/dL [facility] Hct 36.3(L) 38.9 - 50.3 % [facility] Plt 133(L) 150 - 400 K/cumm [facility] MPV 11.9 9.1 - 12.3 fL [facility] RBC 3.91(L) 4.30 - 5.80 M/cumm [facility] MCV 92.8 81.3 - 96.4 fL [facility] MCH 30.9 27.1 - 33.3 pg [facility] MCHC 33.3 32.3 - 35.7 g/dL [facility] RDW CV 16.0(H) 11.1 - 14.9 % [facility] RDW SD 54.2(H) 35.7 - 48.1 fL [facility] NRBC abs 0.00 0.00 - 0.01 K/cumm [facility] Blood 11/01/2024 4:00 AM CDT 11/01/2024 4:22 AM CDT us Namrata Spencer NP LAB BLOOD ORDERABLES Final Result Performing Organization Address [facility]/ZIP Co de Phone Number LAURIE ROSALES [address] [place] [address] * (ABNORMAL) eGFR (10/31/2024 12:06 AM CDT) [...] ORDERABLES Final Res ult Performing Organization Address City/[facility]/ZIP Co de Phone Number LAURIE ROSALES [phone] [place] [address] * (ABNORMAL) Differential, auto (10/31/2024 12:06 AM CDT) Neutrophil abs 2.10 1.50 - 6.50 K/cumm Imm gran abs 0.01 0.00 - 0.10 K/cumm [facility] Lymphocyte abs 0.43(L) 0.80 - 3.30 K/cumm [facility] Monocyte abs 0.41 0.20 - 0.80 K/cumm [facility] Eosinophil abs 0.07 0.00 - 0.50 K/cumm [facility] Basophil abs 0.01 0.00 - 0.10 K/cumm [facility] Neutrophil pct 69.4 % [facility] Comment: Interpretive Data Percent cell count reference ranges are not reported, since discordance with absolute values may lead to misinterpretation of CBC data. Current Interpretive Data was last revised on 2017. Imm gran pct 0.3 % [facility] Comment: Interpretive Data Percent cell count reference ranges are not reported, since discordance with absolute values may lead to misinterpretation of CBC data. Current Interpretive Data was last revised on 2017. Lymphocyte pct 14.2 % [facility] Comment: Interpretive Data Percent cell count reference ranges are not reported, since discordance with absolute values may lead to misinterpretation of CBC data. Current Interpretive Data was last revised on 2017. Monocyte pct 13.5 % [facility] Comment: Interpretive Data Percent cell count reference ranges are not reported, since discordance with absolute values may lead to misinterpretation of CBC data. Current Interpretive Data was last revised on 2017. Eosinophil pct 2.3 % [facility] Comment: Interpretive Data Percent cell count reference ranges are not reported, since discordance with absolute values may lead to misinterpretation of CBC data. Current Interpretive Data was last revised on 2017. Basophil pct 0.3 % [facility] Comment: Interpretive Data Percent cell count reference ranges are not reported, since discordance with absolute values may lead to misinterpretation of CBC data. Current Interpretive Data was last revised on 2017. Blood 10/31/2024 12:0 6 AM CDT 10/31/2024 12:13 AM CDT Namrata Spencer [employer] LAB BLOOD ORDERABLES Final Result Performing Organization Address City/[facility]/ZIP Co de Phone Number LAURIE ROSALES [phone] Department [place] [address] * (ABNORMAL) Protime-INR (10/31/2024 12:06 AM CDT) PT 18.9(H) 9.7 - 13.0 sec INR 1.73(H) 0.90 - 1.20 [facility] Comment: Interpretive data Oral anticoagulant therapeutic ranges: Venous thromboembolism prophylaxis or treatment: 2.0-3.0 CARDIOLOGY Standard range: 2.0-3.0 High-intensity range: 2.5-3.5 Refer to indication-specific guidelines for appropriate target ranges for prosthetic heart valve replacement. Current interpretive data was last revised on 2019. Blood 10/31/2024 12:0 6 AM CDT 10/31/2024 12:13 AM CDT Luan Messina Guillermo DO LAB BLOOD ORDERABLES Fay l Result Performing Organization Address City/[facility] Co de Phone Number LAURIE ROSALES [address] Department [place] [address] * (ABNORMAL) CBC with auto differential (10/31/2024 12:06 AM CDT) WBC 3.03(L) 3.80 - 9.90 K/cumm Hgb 11.3(L) 13.0 - 17.5 g/dL [facility] Hct 33.1(L) 38.9 - 50.3 % [facility] Plt 124(L) 150 - 400 K/cumm [facility] MPV 11.4 9.1 - 12.3 fL [facility] RBC 3.65(L) 4.30 - 5.80 M/cumm [facility] MCV 90.7 81.3 - 96.4 fL [facility] MCH 31.0 27.1 - 33.3 pg [facility] MCHC 34.1 32.3 - 35.7 g/dL [facility] RDW CV 15.1(H) 11.1 - 14.9 % [facility] RDW SD 50.5(H) 35.7 - 48.1 fL [facility] NRBC abs 0.00 0.00 - 0.01 K/cumm [facility] Blood 10/31/2024 12:0 6 AM CDT 10/31/2024 12:13 AM CDT Namrata Spencer NP LAB BLOOD ORDERABLES Final Result [facility] [id number] Department [place] [address] * (ABNORMAL) Pro B-type natriuretic peptide (10/31/2024 [...] MD LAB BLOOD ORDERABLES Final Resu lt [facility] [address] Department [place] [address] * (ABNORMAL) Basic metabolic panel (10/31/2024 12:06 AM CDT) Sodium 123(C) 135 - 145 mmol/L Comment:Critical Result call ed to and read back by Gracy Bey, DATE: 2024-10-31 00:59:18 BY: Silverio Parr Potassium, pl 3.7 3.3 - 4.9 mmol/L [facility] Chloride 89(L) 97 - 110 mmol/L [facility] CO2 30 22 - 32 mmol/L [facility] Anion gap 4 2 - 15 mmol/L [facility] BUN 32(H) 6 - 25 mg/dL [facility] Creatinine 1.26 0.80 - 1.30 mg/dL [facility] Glucose 106 70 - 199 mg/dL [facility] Comment: Interpretive Data Fasting glucose >/= 126 [...] LAB BLOOD ORDERABLES Final Res ult LAURIE [id number] [facility] Department [place] [address] * XR Chest 1 View (10/30/2024 7:26 [...] the pulmonary vascular congestion. Electronically signed by: oCco Youngblood M.D. us Ryan Bailey MD IMG [...] MD LAB BLOOD ORDERABLES Final Res ult [facility] [address] Department [place] [address] * (ABNORMAL) Basic metabolic panel (10/30/2024 4:03 PM CDT) Sodium 121(C) 135 - 145 mmol/L Comment:Critical Result call ed to and read back by Dinora Meier, DATE: 2024-10-30 17:26:18 BY: Georgiana Devine Potassium, pl 4.0 3.3 - 4.9 mmol/L [facility] Chloride 85(L) 97 - 110 mmol/L [facility] CO2 26 22 - 32 mmol/L [facility] Anion gap 10 2 - 15 mmol/L [facility] BUN 30(H) 6 - 25 mg/dL [facility] Creatinine 1.19 0.80 - 1.30 mg/dL [facility] Glucose 110 70 - 199 mg/dL [facility] Comment: Interpretive Data Fasting glucose >/= 126 [...] 2022. Calcium 7.8(L) 8.5 - 10.3 mg/dL LAURIE ROSALES Blood 10/30/2024 4:03 PM CDT 10/30/2024 4:53 PM CDT Delvin Mendenhall MD LAB BLOOD ORDERABLES Final Res ult Performing Organization Address City/[facility]/ZIP Co de Phone Number LAURIE ROSALES [phone] [place] [address] * (ABNORMAL) TSH (10/30/2024 7:25 AM CDT) Thyroid Stimulating Hormone 5.74(H) 0.30 - 4.20 mcIUnit/mL Blood 10/30/2024 7:25 AM CDT 10/30/2024 11:01 AM CDT Delvin Mendenhall MD LAB BLOOD ORDERABLES Final Res ult Performing Organization Address City/[facility] Co de Phone Number LAURIE [address] [place] [address] * (ABNORMAL) Pro B-type natriuretic peptide (10/30/2024 [...] 7:25 AM CDT 10/30/2024 11:01 AM CDT us Ryan Bailey MD LAB BLOOD ORDERABLES Final Resu lt [facility] [address] Department [place] [address] * eGFR (10/30/2024 7:25 AM CDT) eGFR [...] 7:25 AM CDT 10/30/2024 8:31 AM CDT Delvin Mendenhall MD LAB BLOOD ORDERABLES Final Res ult [facility] [address] Department [place] [address] * (ABNORMAL) Basic metabolic panel (10/30/2024 7:25 AM CDT) Sodium 121(C) 135 - 145 mmol/L Comment:Critical Result call ed to and read back by Adam Meier, DATE: 2024-10-30 09:14:47 BY: Brandon Olmedo Potassium, pl 3.6 3.3 - 4.9 mmol/L [facility] Chloride 84(L) 97 - 110 mmol/L [facility] CO2 28 22 - 32 mmol/L [facility] Anion gap 9 2 - 15 mmol/L [facility] BUN 28(H) 6 - 25 mg/dL [facility] Creatinine 1.17 0.80 - 1.30 mg/dL [facility] Glucose 104 70 - 199 mg/dL [facility] Comment: Interpretive Data Fasting glucose >/= 126 [...] 2022. Calcium 7.8(L) 8.5 - 10.3 mg/dL [facility] Blood 10/30/2024 7:25 AM CDT 10/30/2024 8:31 AM CDT us Delvin Mendenhall MD LAB BLOOD ORDERABLES Final Res ult Performing Organization Address [facility] Co de Phone Number LAURIE ROSALSE [address] Department [place] [address] * (ABNORMAL) eGFR (10/30/2024 12:26 AM CDT) [...] 6 AM CDT 10/30/2024 12:40 AM CDT Delvin Mendenhall MD LAB BLOOD ORDERABLES Final Res ult Performing Organization Address City/[facility]/ZIP Co de Phone Number LAURIE ROSALES [address] Department [place] [address] * (ABNORMAL) Differential, auto (10/30/2024 12:26 AM CDT) Neutrophil abs 2.64 1.50 - 6.50 K/cumm Imm gran abs 0.04 0.00 - 0.10 K/cumm [facility] Lymphocyte abs 0.56(L) 0.80 - 3.30 K/cumm [facility] Monocyte abs 0.49 0.20 - 0.80 K/cumm [facility] Eosinophil abs 0.08 0.00 - 0.50 K/cumm [facility] Basophil abs 0.01 0.00 - 0.10 K/cumm [facility] Neutrophil pct 69.1 % [facility] Comment: Interpretive Data Percent cell count reference ranges are not reported, since discordance with absolute values may lead to misinterpretation of CBC data. Current Interpretive Data was last revised on 2017. Imm gran pct 1.0 % [facility] Comment: Interpretive Data Percent cell count reference ranges are not reported, since discordance with absolute values may lead to misinterpretation of CBC data. Current Interpretive Data was last revised on 2017. Lymphocyte pct 14.7 % [facility] Comment: Interpretive Data Percent cell count reference ranges are not reported, since discordance with absolute values may lead to misinterpretation of CBC data. Current Interpretive Data was last revised on 2017. Monocyte pct 12.8 % [facility] Comment: Interpretive Data Percent cell count reference ranges are not reported, since discordance with absolute values may lead to misinterpretation of CBC data. Current Interpretive Data was last revised on 2017. Eosinophil pct 2.1 % [facility] Comment: Interpretive Data Percent cell count reference ranges are not reported, since discordance with absolute values may lead to misinterpretation of CBC data. Current Interpretive Data was last revised on 2017. Basophil pct 0.3 % [facility] Comment: Interpretive Data Percent cell count reference ranges are not reported, since discordance with absolute values may lead to misinterpretation of CBC data. Current Interpretive Data was last revised on 2017. Blood 10/30/2024 12:2 6 AM CDT 10/30/2024 12:40 AM CDT us Namrata Spencer NP LAB BLOOD ORDERABLES Final Result LAURIE ROSALES [address] Department [place] [address] * (ABNORMAL) Basic metabolic panel (10/30/2024 12:26 AM CDT) Sodium 119(C) 135 - 145 mmol/L Comment:Critical Result call ed to and read back by Sherrell Reyesgmaddison, DATE: 2024-10-30 01:24:16 BY: Rose Mary Anne Potassium, pl 3.8 3.3 - 4.9 mmol/L [facility] Chloride 83(L) 97 - 110 mmol/L [facility] CO2 29 22 - 32 mmol/L [facility] Anion gap 7 2 - 15 mmol/L [facility] BUN 32(H) 6 - 25 mg/dL [facility] Creatinine 1.25 0.80 - 1.30 mg/dL [facility] Glucose 117 70 - 199 mg/dL [facility] Comment: Interpretive Data Fasting glucose >/= 126 [...] 2022. Calcium 7.8(L) 8.5 - 10.3 mg/dL [facility] Blood 10/30/2024 12:2 6 AM CDT 10/30/2024 12:40 AM CDT us Delvin Mendenhall MD LAB BLOOD ORDERABLES Final Res ult [facility] [address] Department [place] [address] * (ABNORMAL) Protime-INR (10/30/2024 12:26 AM CDT) PT 18.9(H) 9.7 - 13.0 sec INR 1.73(H) 0.90 - 1.20 [facility] Comment: Interpretive data Oral anticoagulant therapeutic ranges: Venous thromboembolism prophylaxis or treatment: 2.0-3.0 CARDIOLOGY Standard range: 2.0-3.0 High-intensity range: 2.5-3.5 Refer to indication-specific guidelines for appropriate target ranges for prosthetic heart valve replacement. Current interpretive data was last revised on 2019. Blood 10/30/2024 12:2 6 AM CDT 10/30/2024 12:39 AM CDT Luan Guillermo DO LAB BLOOD ORDERABLES Fay l Result Performing Organization Address City/[facility]/ZIP Co de Phone Number LAURIE ROSALES [address] [place], [place] [id number] * (ABNORMAL) CBC with auto differential (10/30/2024 12:26 AM CDT) WBC 3.82 3.80 - 9.90 K/cumm Hgb 12.2(L) 13.0 - 17.5 g/dL [facility] Hct 35.6(L) 38.9 - 50.3 % [facility] Plt 122(L) 150 - 400 K/cumm [facility] MPV 11.9 9.1 - 12.3 fL [facility] RBC 3.89(L) 4.30 - 5.80 M/cumm [facility] MCV 91.5 81.3 - 96.4 fL [facility] MCH 31.4 27.1 - 33.3 pg [facility] MCHC 34.3 32.3 - 35.7 g/dL [facility] RDW CV 15.2(H) 11.1 - 14.9 % [facility] RDW SD 51.4(H) 35.7 - 48.1 fL [facility] NRBC abs 0.00 0.00 - 0.01 K/cumm [facility] Blood 10/30/2024 12:2 6 AM CDT 10/30/2024 12:40 AM CDT Namrata Spencer [employer] LAB BLOOD ORDERABLES Final Result Performing Organization Address City/[facility]/ZIP Co de Phone Number LAURIE ROSALES [address] Department [employer] [place], [place] [id number] * (ABNORMAL) eGFR (10/29/2024 9:15 PM CDT) [...] MD LAB BLOOD ORDERABLES Final Res ult [facility] [address] Department [place] [address] * (ABNORMAL) Basic metabolic panel (10/29/2024 9:15 PM CDT) Sodium 118(C) 135 - 145 mmol/L Comment:Critical Result call ed to and read back by Letitia Bey, DATE: 2024-10-29 22:05:05 BY: Rose Mary Anne Potassium, pl 4.0 3.3 - 4.9 mmol/L [facility] Chloride 82(L) 97 - 110 mmol/L [facility] CO2 27 22 - 32 mmol/L [facility] Anion gap 9 2 - 15 mmol/L [facility] BUN 31(H) 6 - 25 mg/dL [facility] Creatinine 1.26 0.80 - 1.30 mg/dL [facility] Glucose 128 70 - 199 mg/dL CERNER CH Comment: [...] 2022. Calcium 7.9(L) 8.5 - 10.3 mg/dL LAURIE ROSALES Blood 10/29/2024 9:15 PM CDT 10/29/2024 9:19 PM CDT us Delvin Mendenhall MD LAB BLOOD ORDERABLES Final Res ult LAURIE [id number] [address] Department [place] [address] * (ABNORMAL) eGFR (10/29/2024 3:45 AM CDT) [...] CDT 10/29/2024 4:27 AM CDT Namrata Spencer NP LAB BLOOD ORDERABLES Final Result LAURIE [id number] [address] Department [place] [address] * (ABNORMAL) Differential, auto (10/29/2024 3:45 AM CDT) Neutrophil abs 2.19 1.50 - 6.50 K/cumm Imm gran abs 0.02 0.00 - 0.10 K/cumm [facility] Lymphocyte abs 0.56(L) 0.80 - 3.30 K/cumm [facility] Monocyte abs 0.41 0.20 - 0.80 K/cumm [facility] Eosinophil abs 0.09 0.00 - 0.50 K/cumm [facility] Basophil abs 0.03 0.00 - 0.10 K/cumm [facility] Neutrophil pct 66.4 % [facility] Comment: Interpretive Data Percent cell count reference ranges are not reported, since discordance with absolute values may lead to misinterpretation of CBC data. Current Interpretive Data was last revised on 2017. Imm gran pct 0.6 % [facility] Comment: Interpretive Data Percent cell count reference ranges are not reported, since discordance with absolute values may lead to misinterpretation of CBC data. Current Interpretive Data was last revised on 2017. Lymphocyte pct 17.0 % [facility] Comment: Interpretive Data Percent cell count reference ranges are not reported, since discordance with absolute values may lead to misinterpretation of CBC data. Current Interpretive Data was last revised on 2017. Monocyte pct 12.4 % [facility] Comment: Interpretive Data Percent cell count reference ranges are not reported, since discordance with absolute values may lead to misinterpretation of CBC data. Current Interpretive Data was last revised on 2017. Eosinophil pct 2.7 % [facility] Comment: Interpretive Data Percent cell count reference ranges are not reported, since discordance with absolute values may lead to misinterpretation of CBC data. Current Interpretive Data was last revised on 2017. Basophil pct 0.9 % [facility] Comment: Interpretive Data Percent cell count reference ranges are not reported, since discordance with absolute values may lead to misinterpretation of CBC data. Current Interpretive Data was last revised on 2017. Blood 10/29/2024 3:45 AM CDT 10/29/2024 4:28 AM CDT Namrata Spencer LAUNDR[employer] MACHINE TENDER LAB BLOOD ORDERABLES Final Result Performing Organization Address [facility] Co de Phone Number BRYNYEE BOBBY [phone] Department of [employer] [place] [address] * (ABNORMAL) Protime-INR (10/29/2024 3:45 AM CDT) PT 17.0(H) 9.7 - 13.0 sec INR 1.56(H) 0.90 - 1.20 LAURIE ROSALES Comment: Interpretive [...] ORDERABLES Fay l Result Performing Organization Address [facility] Co de Phone Number LAURIE ROSALES [id number] Department [employer] [place], [place] [id number] * (ABNORMAL) Basic metabolic panel (10/29/2024 3:45 AM CDT) Sodium 126(L) 135 - 145 mmol/L Potassium, pl 3.9 3.3 - 4.9 mmol/L [facility] Chloride 85(L) 97 - 110 mmol/L [facility] CO2 33(H) 22 - 32 mmol/L [facility] Anion gap 8 2 - 15 mmol/L [facility] BUN 34(H) 6 - 25 mg/dL [facility] Creatinine 1.53(H) 0.80 - 1.30 mg/dL [facility] Glucose 96 70 - 199 mg/dL [facility] Comment: Interpretive Data Fasting glucose >/= 126 [...] 2022. Calcium 8.3(L) 8.5 - 10.3 mg/dL [facility] Blood 10/29/2024 3:45 AM CDT 10/29/2024 4:27 AM CDT Namrata Spencer NP LAB BLOOD ORDERABLES Final Result [facility] [address] Department [place] [address] * (ABNORMAL) CBC with auto differential (10/29/2024 3:45 AM CDT) WBC 3.30(L) 3.80 - 9.90 K/cumm Hgb 11.9(L) 13.0 - 17.5 g/dL [facility] Hct 35.3(L) 38.9 - 50.3 % [facility] Plt 120(L) 150 - 400 K/cumm [facility] MPV 12.5(H) 9.1 - 12.3 fL [facility] RBC 3.79(L) 4.30 - 5.80 M/cumm [facility] MCV 93.1 81.3 - 96.4 fL [facility] MCH 31.4 27.1 - 33.3 pg [facility] MCHC 33.7 32.3 - 35.7 g/dL [facility] RDW CV 15.7(H) 11.1 - 14.9 % [facility] RDW SD 53.3(H) 35.7 - 48.1 fL [facility] NRBC abs 0.00 0.00 - 0.01 K/cumm [facility] Blood 10/29/2024 3:45 AM CDT 10/29/2024 4:28 AM CDT Namrata Spencer NP LAB BLOOD ORDERABLES Final Result Performing Organization Address City/[facility]/ZIP Co de Phone Number BRYNYEE ROSALES [phone] Department [place] [address] * Osmolality, urine (10/28/2024 12:12 PM CDT) Pathologist [facility] Osmo, ur 123 mOsm/kg Comment:Testing performed by : [facility], [address] [place]., [address] Urine 10/28/2024 12:1 2 PM CDT 10/28/2024 2:34 PM CDT us Ryan Bailey MD LAB URINE ORDERABLES Final Resu lt Performing Organization Address [facility] Co de Phone Number BRYNYEE [address] Department [place] [employer] [address] * Chloride, urine, random (10/28/2024 12:12 PM CDT) Pathologist [facility] Chloride, ur 22 mmol/L Comment: Interpretive Data No reference range established. Current interpretive data was last revised 2018. Urine (Urine, Clean Catch) 10/28/2024 12:12 PM CDT 10/28/2024 12:26 PM CDT us Ryan Bailey MD LAB URINE ORDERABLES Final Resu lt Performing Organization Address [facility] Co de Phone Number BRYNYEE [phone] Department [place] [address] * Potassium, urine, random (10/28/2024 12:12 PM CDT) Potassium conc, ur 11.0 mmol/L Comment: Interpretive Data No reference range established. Current interpretive data was last revised 2018. Urine (Urine, Clean Catch) 10/28/2024 12:12 PM CDT 10/28/2024 12:26 PM CDT us Ryan Bailey MD LAB URINE ORDERABLES Final Resu lt Performing Organization Address [facility] Co de Phone Number LAURIE ROSALES [address] Department [place] [address] * Sodium, urine, random (10/28/2024 12:12 PM CDT) Sodium, ur 21 mmol/L Comment: Interpretive Data No reference range established. Current interpretive data was last revised 2018. Urine (Urine, Clean Catch) 10/28/2024 12:12 PM CDT 10/28/2024 12:26 PM CDT us Ryan Bailey MD LAB URINE ORDERABLES Final Resu lt Performing Organization Address [facility] de Phone Number BRYNYEE ROSALES [phone] Department [place] [employer] [place] [address] * (ABNORMAL) Osmolality, blood (10/28/2024 4:13 AM CDT) Osmo 273(L) 275 - 300 mOsm/kg Comment:Testing performed by : [facility], [address] [facility] [place] [address] Blood 10/28/2024 4:13 AM CDT 10/28/2024 2:34 PM CDT us Ryan Bailey MD LAB BLOOD ORDERABLES Final Resu lt Performing Organization Address [facility] Co de Phone Number BRYNYEE ROSALES [address] Department [place] [address] * (ABNORMAL) eGFR (10/28/2024 4:13 AM CDT) [...] NP LAB BLOOD ORDERABLES Final Result LAURIE [address] Department [place] [address] * (ABNORMAL) Differential, auto (10/28/2024 4:13 AM CDT) Neutrophil abs 2.25 1.50 - 6.50 K/cumm Imm gran abs 0.01 0.00 - 0.10 K/cumm [facility] Lymphocyte abs 0.54(L) 0.80 - 3.30 K/cumm [facility] Monocyte abs 0.39 0.20 - 0.80 K/cumm [facility] Eosinophil abs 0.08 0.00 - 0.50 K/cumm [facility] Basophil abs 0.01 0.00 - 0.10 K/cumm [facility] Neutrophil pct 68.6 % [facility] Comment: Interpretive Data Percent cell count reference ranges are not reported, since discordance with absolute values may lead to misinterpretation of CBC data. Current Interpretive Data was last revised on 2017. Imm gran pct 0.3 % [facility] Comment: Interpretive Data Percent cell count reference ranges are not reported, since discordance with absolute values may lead to misinterpretation of CBC data. Current Interpretive Data was last revised on 2017. Lymphocyte pct 16.5 % [facility] Comment: Interpretive Data Percent cell count reference ranges are not reported, since discordance with absolute values may lead to misinterpretation of CBC data. Current Interpretive Data was last revised on 2017. Monocyte pct 11.9 % [facility] Comment: Interpretive Data Percent cell count reference ranges are not reported, since discordance with absolute values may lead to misinterpretation of CBC data. Current Interpretive Data was last revised on 2017. Eosinophil pct 2.4 % [facility] Comment: Interpretive Data Percent cell count reference ranges are not reported, since discordance with absolute values may lead to misinterpretation of CBC data. Current Interpretive Data was last revised on 2017. Basophil pct 0.3 % [facility] Comment: Interpretive Data Percent cell count reference ranges are not reported, since discordance with absolute values may lead to misinterpretation of CBC data. Current Interpretive Data was last revised on 2017. Blood 10/28/2024 4:13 AM CDT 10/28/2024 4:26 AM CDT Namrata Spencer NP LAB BLOOD ORDERABLES Final Result LAURIE [address] Department [place] [address] * (ABNORMAL) Protime-INR (10/28/2024 4:13 AM CDT) PT 16.8(H) 9.7 - 13.0 sec INR 1.54(H) 0.90 - 1.20 [facility] Comment: Interpretive data Oral anticoagulant therapeutic ranges: Venous thromboembolism prophylaxis or treatment: 2.0-3.0 CARDIOLOGY Standard range: 2.0-3.0 High-intensity range: 2.5-3.5 Refer to indication-specific guidelines for appropriate target ranges for prosthetic heart valve replacement. Current interpretive data was last revised on 2019. Blood 10/28/2024 4:13 AM CDT 10/28/2024 4:25 AM CDT Luan Guillermo DO LAB BLOOD ORDERABLES Fay l Result [facility] [address] Department [place] [address] * (ABNORMAL) Basic metabolic panel (10/28/2024 4:13 [...] affected. Glucose 92 70 - 199 mg/dL [facility] Comment: Interpretive Data Fasting glucose >/= 126 [...] 2022. Calcium 8.4(L) 8.5 - 10.3 mg/dL [facility] Blood 10/28/2024 4:13 AM CDT 10/28/2024 4:24 AM CDT Namrata Spencer [employer] MACHINE TENDER LAB BLOOD ORDERABLES Final Result LAURIE [address] Department [place] [employer] [address] * (ABNORMAL) CBC with auto differential (10/28/2024 4:13 AM CDT) WBC 3.28(L) 3.80 - 9.90 K/cumm Hgb 12.2(L) 13.0 - 17.5 g/dL [facility] Hct 36.0(L) 38.9 - 50.3 % [facility] Plt 115(L) 150 - 400 K/cumm [facility] MPV 11.9 9.1 - 12.3 fL [facility] RBC 3.95(L) 4.30 - 5.80 M/cumm [facility] MCV 91.1 81.3 - 96.4 fL [facility] MCH 30.9 27.1 - 33.3 pg [facility] MCHC 33.9 32.3 - 35.7 g/dL [facility] RDW CV 15.5(H) 11.1 - 14.9 % [facility] RDW SD 51.6(H) 35.7 - 48.1 fL [facility] NRBC abs 0.00 0.00 - 0.01 K/cumm [facility] Blood 10/28/2024 4:13 AM CDT 10/28/2024 4:26 AM CDT Namrata Spencer LAUNDR[employer] MACHINE TENDER LAB BLOOD ORDERABLES Final Result LAURIE [address] Department [place] [employer] [address] * Magnesium (10/28/2024 4:13 AM CDT) Magnesium 1.8 1.4 - 2.5 mg/dL Blood 10/28/2024 4:13 AM CDT 10/28/2024 4:24 AM CDT us Ryan Bailey MD LAB BLOOD ORDERABLES Final Resu lt LAURIE ROSALES [id number] Department [place] [address] * XR Chest 1 View (10/27/2024 11:28 [...] Spencer NP LAB BLOOD ORDERABLES Final Result [facility] [address] Department [place] [address] * (ABNORMAL) Differential, auto (10/27/2024 6:26 AM CDT) Neutrophil abs 2.10 1.50 - 6.50 K/cumm Imm gran abs 0.00 0.00 - 0.10 K/cumm [facility] Lymphocyte abs 0.55(L) 0.80 - 3.30 K/cumm [facility] Monocyte abs 0.35 0.20 - 0.80 K/cumm [facility] Eosinophil abs 0.09 0.00 - 0.50 K/cumm [facility] Basophil abs 0.02 0.00 - 0.10 K/cumm [facility] Neutrophil pct 67.5 % [facility] Comment: Interpretive Data Percent cell count reference ranges are not reported, since discordance with absolute values may lead to misinterpretation of CBC data. Current Interpretive Data was last revised on 2017. Imm gran pct 0.0 % [facility] Comment: Interpretive Data Percent cell count reference ranges are not reported, since discordance with absolute values may lead to misinterpretation of CBC data. Current Interpretive Data was last revised on 2017. Lymphocyte pct 17.7 % [facility] ROSALES Comment: Interpretive Data Percent cell count reference ranges are not reported, since discordance with absolute values may lead to misinterpretation of CBC data. Current Interpretive Data was last revised on 2017. Monocyte pct 11.3 % [facility] ROSALES Comment: Interpretive Data Percent cell count reference ranges are not reported, since discordance with absolute values may lead to misinterpretation of CBC data. Current Interpretive Data was last revised on 2017. Eosinophil pct 2.9 % [facility] ROSALES Comment: Interpretive Data Percent cell count reference ranges are not reported, since discordance with absolute values may lead to misinterpretation of CBC data. Current Interpretive Data was last revised on 2017. Basophil pct 0.6 % [facility] ROSALES Comment: Interpretive Data Percent cell count reference ranges are not reported, since discordance with absolute values may lead to misinterpretation of CBC data. Current Interpretive Data was last revised on 2017. Blood 10/27/2024 6:26 AM CDT 10/27/2024 6:47 AM CDT Namrata Spencer NP LAB BLOOD ORDERABLES Final Result LAURIE ROSALES [address] [facility] Department [place] [address] * (ABNORMAL) Protime-INR (10/27/2024 6:26 AM CDT) PT 16.2(H) 9.7 - 13.0 sec INR 1.49(H) 0.90 - 1.20 LAURIE ROSALES Comment: Interpretive [...] LAB BLOOD ORDERABLES Fay l Result LAURIE [address] Department of Laboratories [place], [place] [id number] * (ABNORMAL) Basic metabolic panel (10/27/2024 6:26 AM CDT) Sodium 127(L) 135 - 145 mmol/L Potassium, pl 3.6 3.3 - 4.9 mmol/L [facility] Chloride 87(L) 97 - 110 mmol/L [facility] CO2 36(H) 22 - 32 mmol/L [facility] Anion gap 4 2 - 15 mmol/L [facility] BUN 37(H) 6 - 25 mg/dL [facility] Creatinine 1.40(H) 0.80 - 1.30 mg/dL [facility] Glucose 95 70 - 199 mg/dL [facility] Comment: Interpretive Data Fasting glucose >/= 126 [...] 2022. Calcium 8.3(L) 8.5 - 10.3 mg/dL [facility] Blood 10/27/2024 6:26 AM CDT 10/27/2024 6:47 AM CDT Namrata Spencer LAUNDRY MACHINE TENDER LAB BLOOD ORDERABLES Final Result LAURIE ROSALES [address] Department [place] [address] * (ABNORMAL) CBC with auto differential (10/27/2024 6:26 AM CDT) WBC 3.11(L) 3.80 - 9.90 K/cumm Hgb 12.1(L) 13.0 - 17.5 g/dL [facility] Hct 36.1(L) 38.9 - 50.3 % [facility] Plt 99(L) 150 - 400 K/cumm [facility] MPV 12.3 9.1 - 12.3 fL [facility] RBC 3.92(L) 4.30 - 5.80 M/cumm [facility] MCV 92.1 81.3 - 96.4 fL [facility] MCH 30.9 27.1 - 33.3 pg [facility] MCHC 33.5 32.3 - 35.7 g/dL [facility] CH RDW CV 16.0(H) 11.1 - 14.9 % [facility] RDW SD 53.5(H) 35.7 - 48.1 fL [facility] NRBC abs 0.00 0.00 - 0.01 K/cumm [facility] Blood 10/27/2024 6:26 AM CDT 10/27/2024 6:47 AM CDT us Namrata Spencer NP LAB BLOOD ORDERABLES Final Result LAURIE [address] Department [place] [address] * XR Chest 1 View (10/26/2024 11:06 [...] No focal infiltrate seen. Procedure Note Coco Youngbolod MD - 10/26/2024 EXAMINATION: XR CHEST 1 VIEW HISTORY: The patient is a 84-year-old male who presents with shortness of breath. Comparison made with the previous study dated 10/24/2024. TECHNIQUE: AP portable view of the chest. FINDINGS: Cardiomegaly with aortic atherosclerosis. Findings of pulmonary vascular congestion. No focal infiltrate seen. IMPRESSION: Cardiomegaly with pulmonary vascular congestion. Electronically signed by: Coco Youngblood M.D. us Nitesh Phillips [employer] MACHINE TENDER IMG XR PROCEDURES Final R esult * (ABNORMAL) eGFR (10/26/2024 6:28 AM CDT) eGFR 41(L) >=60 mL/min/1. 73 m2 Comment: [...] AM CDT 10/26/2024 6:44 AM CDT us Namrata Spencer NP LAB BLOOD ORDERABLES Final Result LAURIE [address] Department [place] [employer] [address] * T4, free (10/26/2024 6:28 AM CDT) Free T4 1.43 0.90 - 1.70 ng/dL Blood 10/26/2024 6:28 AM CDT 10/26/2024 6:44 AM CDT us Donte Camacho MD LAB BLOOD ORDERABLES Final Result [facility] [address] Department [place] [address] * (ABNORMAL) Differential, auto (10/26/2024 6:28 AM CDT) Neutrophil abs 2.38 1.50 - 6.50 K/cumm Imm gran abs 0.01 0.00 - 0.10 K/cumm [facility] Lymphocyte abs 0.60(L) 0.80 - 3.30 K/cumm [facility] Monocyte abs 0.41 0.20 - 0.80 K/cumm [facility] Eosinophil abs 0.10 0.00 - 0.50 K/cumm [facility] Basophil abs 0.02 0.00 - 0.10 K/cumm [facility] Neutrophil pct 67.7 % [facility] Comment: Interpretive Data Percent cell count reference ranges are not reported, since discordance with absolute values may lead to misinterpretation of CBC data. Current Interpretive Data was last revised on 2017. Imm gran pct 0.3 % [facility] Comment: Interpretive Data Percent cell count reference ranges are not reported, since discordance with absolute values may lead to misinterpretation of CBC data. Current Interpretive Data was last revised on 2017. Lymphocyte pct 17.0 % [facility] Comment: Interpretive Data Percent cell count reference ranges are not reported, since discordance with absolute values may lead to misinterpretation of CBC data. Current Interpretive Data was last revised on 2017. Monocyte pct 11.6 % [facility] Comment: Interpretive Data Percent cell count reference ranges are not reported, since discordance with absolute values may lead to misinterpretation of CBC data. Current Interpretive Data was last revised on 2017. Eosinophil pct 2.8 % [facility] Comment: Interpretive Data Percent cell [...] CDT 10/26/2024 6:44 AM CDT Namrata Spencer [employer] MACHINE TENDER LAB BLOOD ORDERABLES Final Result Performing Organization Address [facility] Co de Phone Number LAURIE ROSALES [address] [address] * (ABNORMAL) Protime-INR (10/26/2024 6:28 AM CDT) PT 16.9(H) 9.7 - 13.0 sec INR 1.55(H) 0.90 - 1.20 LAURIE Comment: Interpretive data [...] ORDERABLES Fay l Result Performing Organization Address [facility] Co de Phone Number BRYNYEE ROSALES [address] [address] * (ABNORMAL) Basic metabolic panel (10/26/2024 6:28 AM CDT) Sodium 129(L) 135 - 145 mmol/L Potassium, pl 3.9 3.3 - 4.9 mmol/L [facility] Chloride 89(L) 97 - 110 mmol/L [facility] CO2 33(H) 22 - 32 mmol/L [facility] Anion gap 7 2 - 15 mmol/L [facility] BUN 43(H) 6 - 25 mg/dL [facility] Creatinine 1.65(H) 0.80 - 1.30 mg/dL [facility] Glucose 94 70 - 199 mg/dL [facility] Comment: Interpretive Data Fasting glucose >/= 126 [...] 2022. Calcium 8.5 8.5 - 10.3 mg/dL [facility] Blood 10/26/2024 6:28 AM CDT 10/26/2024 6:44 AM CDT Namrata Spencer NP LAB BLOOD ORDERABLES Final Result [facility] [address] Department [place] [address] * (ABNORMAL) CBC with auto differential (10/26/2024 6:28 AM CDT) Pathologist [facility] WBC 3.52(L) 3.80 - 9.90 K/cumm Hgb 12.0(L) 13.0 - 17.5 g/dL [facility] Hct 35.9(L) 38.9 - 50.3 % [facility] Plt 94(L) 150 - 400 K/cumm [facility] MPV 11.3 9.1 - 12.3 fL [facility] RBC 3.91(L) 4.30 - 5.80 M/cumm [facility] MCV 91.8 81.3 - 96.4 fL [facility] MCH 30.7 27.1 - 33.3 pg [facility] MCHC 33.4 32.3 - 35.7 g/dL [facility] RDW CV 16.2(H) 11.1 - 14.9 % [facility] RDW SD 54.3(H) 35.7 - 48.1 fL [facility] NRBC abs 0.00 0.00 - 0.01 K/cumm [facility] Blood 10/26/2024 6:28 AM CDT 10/26/2024 6:44 AM CDT Namrata Spencer NP LAB BLOOD ORDERABLES Final Result LAURIE [address] [facility] [place] [address] * (ABNORMAL) Thyroid Function [place] (10/26/2024 6:28 AM CDT) TSH 6.60(H) 0.30 - 4.20 mcIUnit/mL Blood 10/26/2024 6:28 AM CDT 10/26/2024 6:44 AM CDT Result [facility] Donte Camacho MD LAB BLOOD ORDERABLES Final Result Performing Organization Address [facility] Co de Phone Number [facility] [id number] [address] [facility] [place] [address] * Cortisol (10/26/2024 6:28 AM CDT) Cortisol [...] BLOOD ORDERABLES Final Result Performing Organization Address City/[facility]/ZIP Co de Phone Number LAURIE ROSALES [address] Department [place] [address] * (ABNORMAL) eGFR (10/25/2024 6:58 AM CDT) [...] BLOOD ORDERABLES Final Result Performing Organization Address City/[facility]/ZIP Co de Phone Number LAURIE ROSALES [address] Department [place] [address] * (ABNORMAL) Differential, auto (10/25/2024 6:58 AM CDT) Neutrophil abs 2.57 1.50 - 6.50 K/cumm Imm gran abs 0.01 0.00 - 0.10 K/cumm [facility] Lymphocyte abs 0.46(L) 0.80 - 3.30 K/cumm [facility] Monocyte abs 0.39 0.20 - 0.80 K/cumm [facility] Eosinophil abs 0.09 0.00 - 0.50 K/cumm [facility] Basophil abs 0.02 0.00 - 0.10 K/cumm [facility] Neutrophil pct 72.6 % [facility] Comment: Interpretive Data Percent cell count reference ranges are not reported, since discordance with absolute values may lead to misinterpretation of CBC data. Current Interpretive Data was last revised on 2017. Imm gran pct 0.3 % [facility] Comment: Interpretive Data Percent cell count reference ranges are not reported, since discordance with absolute values may lead to misinterpretation of CBC data. Current Interpretive Data was last revised on 2017. Lymphocyte pct 13.0 % [facility] Comment: Interpretive Data Percent cell count reference ranges are not reported, since discordance with absolute values may lead to misinterpretation of CBC data. Current Interpretive Data was last revised on 2017. Monocyte pct 11.0 % [facility] Comment: Interpretive Data Percent cell count reference ranges are not reported, since discordance with absolute values may lead to misinterpretation of CBC data. Current Interpretive Data was last revised on 2017. Eosinophil pct 2.5 % [facility] Comment: Interpretive Data Percent cell count reference ranges are not reported, since discordance with absolute values may lead to misinterpretation of CBC data. Current Interpretive Data was last revised on 2017. Basophil pct 0.6 % [facility] Comment: Interpretive Data Percent cell count reference ranges are not reported, since discordance with absolute values may lead to misinterpretation of CBC data. Current Interpretive Data was last revised on 2017. Blood 10/25/2024 6:58 AM CDT 10/25/2024 7:21 AM CDT us Namrata Spencer NP LAB BLOOD ORDERABLES Final Result LAURIE ROSALES [address] Department [place] [address] * (ABNORMAL) Protime-INR (10/25/2024 6:58 AM CDT) PT 18.0(H) 9.7 - 13.0 sec INR 1.65(H) 0.90 - 1.20 [facility] Comment: Interpretive data Oral anticoagulant therapeutic ranges: Venous thromboembolism prophylaxis or treatment: 2.0-3.0 CARDIOLOGY Standard range: 2.0-3.0 High-intensity range: 2.5-3.5 Refer to indication-specific guidelines for appropriate target ranges for prosthetic heart valve replacement. Current interpretive data was last revised on 2019. Blood 10/25/2024 6:58 AM CDT 10/25/2024 7:20 AM CDT us Luan Guillermo DO LAB BLOOD ORDERABLES Fay l Result LAUIRE [address] Department [place] [address] * (ABNORMAL) Basic metabolic panel (10/25/2024 6:58 AM CDT) Sodium 134(L) 135 - 145 mmol/L Potassium, pl 3.8 3.3 - 4.9 mmol/L [facility] Chloride 93(L) 97 - 110 mmol/L [facility] CO2 34(H) 22 - 32 mmol/L [facility] Anion gap 7 2 - 15 mmol/L [facility] BUN 46(H) 6 - 25 mg/dL [facility] Creatinine 1.70(H) 0.80 - 1.30 mg/dL [facility] Glucose 102 70 - 199 mg/dL [facility] Comment: Interpretive Data Fasting glucose >/= 126 [...] 2022. Calcium 8.6 8.5 - 10.3 mg/dL [facility] Blood 10/25/2024 6:58 AM CDT 10/25/2024 7:21 AM CDT Namrata Vidya Spencer NP LAB BLOOD ORDERABLES Final Result LAURIE [address] Department of [employer] [address] * (ABNORMAL) CBC with auto differential (10/25/2024 6:58 AM CDT) WBC 3.54(L) 3.80 - 9.90 K/cumm Hgb 12.9(L) 13.0 - 17.5 g/dL [facility] Hct 38.5(L) 38.9 - 50.3 % [facility] Plt 91(L) 150 - 400 K/cumm [facility] MPV 11.6 9.1 - 12.3 fL [facility] RBC 4.15(L) 4.30 - 5.80 M/cumm [facility] MCV 92.8 81.3 - 96.4 fL [facility] MCH 31.1 27.1 - 33.3 pg [facility] MCHC 33.5 32.3 - 35.7 g/dL [facility] RDW CV 16.2(H) 11.1 - 14.9 % [facility] RDW SD 54.5(H) 35.7 - 48.1 fL [facility] NRBC abs 0.00 0.00 - 0.01 K/cumm [facility] Blood 10/25/2024 6:58 AM CDT 10/25/2024 7:21 AM CDT Namrata Spencer NP LAB BLOOD ORDERABLES Final Result LAURIE [address] Department of Laboratories [place], [place] [id number] * XR Chest 1 Vw Portable (10/24/2024 [...] Spencer NP LAB BLOOD ORDERABLES Final Result [facility] [id number] Department [place] [address] * (ABNORMAL) Differential, auto (10/24/2024 4:15 AM CDT) Neutrophil abs 2.69 1.50 - 6.50 K/cumm Imm gran abs 0.01 0.00 - 0.10 K/cumm [facility] Lymphocyte abs 0.56(L) 0.80 - 3.30 K/cumm [facility] Monocyte abs 0.42 0.20 - 0.80 K/cumm [facility] Eosinophil abs 0.11 0.00 - 0.50 K/cumm [facility] Basophil abs 0.02 0.00 - 0.10 K/cumm [facility] Neutrophil pct 70.6 % [facility] Comment: Interpretive Data Percent cell count reference ranges are not reported, since discordance with absolute values may lead to misinterpretation of CBC data. Current Interpretive Data was last revised on 2017. Imm gran pct 0.3 % [facility] Comment: Interpretive Data Percent cell count reference ranges are not reported, since discordance with absolute values may lead to misinterpretation of CBC data. Current Interpretive Data was last revised on 2017. Lymphocyte pct 14.7 % [facility] Comment: Interpretive Data Percent cell count reference ranges are not reported, since discordance with absolute values may lead to misinterpretation of CBC data. Current Interpretive Data was last revised on 2017. Monocyte pct 11.0 % [facility] Comment: Interpretive Data Percent cell count reference ranges are not reported, since discordance with absolute values may lead to misinterpretation of CBC data. Current Interpretive Data was last revised on 2017. Eosinophil pct 2.9 % [facility] Comment: Interpretive Data Percent cell count reference ranges are not reported, since discordance with absolute values may lead to misinterpretation of CBC data. Current Interpretive Data was last revised on 2017. Basophil pct 0.5 % LAURIE ROSALES Comment: Interpretive Data Percent cell count reference ranges are not reported, since discordance with absolute values may lead to misinterpretation of CBC data. Current Interpretive Data was last revised on 2017. Blood 10/24/2024 4:15 AM CDT 10/24/2024 4:39 AM CDT Namrata Spencer [employer] LAB BLOOD ORDERABLES Final Result Performing Organization Address [facility] Co de Phone Number LAURIE [address] [place] [address] * (ABNORMAL) Protime-INR (10/24/2024 4:15 AM CDT) PT 20.5(H) 9.7 - 13.0 sec INR 1.87(H) 0.90 - 1.20 LAURIE Comment: Interpretive data [...] ORDERABLES Fay l Result Performing Organization Address City/[facility]/ZIP Co de Phone Number LAURIE [address] [place] [address] * (ABNORMAL) Basic metabolic panel (10/24/2024 4:15 AM CDT) Sodium 132(L) 135 - 145 mmol/L Potassium, pl 4.2 3.3 - 4.9 mmol/L LAURIE Chloride 91(L) 97 - 110 mmol/L [facility] CO2 32 22 - 32 mmol/L [facility] Anion gap 9 2 - 15 mmol/L [facility] BUN 46(H) 6 - 25 mg/dL [facility] Creatinine 1.90(H) 0.80 - 1.30 mg/dL [facility] Comment:Icteric sample, test results may be affected. Glucose 96 70 - 199 mg/dL [facility] Comment: Interpretive Data Fasting glucose >/= 126 [...] 2022. Calcium 8.4(L) 8.5 - 10.3 mg/dL [facility] Blood 10/24/2024 4:15 AM CDT 10/24/2024 4:38 AM CDT Namrata Spencer NP LAB BLOOD ORDERABLES Final Result [facility] [address] Department [place] [address] * (ABNORMAL) CBC with auto differential (10/24/2024 4:15 AM CDT) Pathologist [facility] WBC 3.81 3.80 - 9.90 K/cumm Hgb 12.8(L) 13.0 - 17.5 g/dL [facility] Hct 38.2(L) 38.9 - 50.3 % [facility] Plt 81(L) 150 - 400 K/cumm [facility] MPV 12.3 9.1 - 12.3 fL [facility] RBC 4.08(L) 4.30 - 5.80 M/cumm [facility] MCV 93.6 81.3 - 96.4 fL [facility] MCH 31.4 27.1 - 33.3 pg [facility] MCHC 33.5 32.3 - 35.7 g/dL [facility] RDW CV 16.3(H) 11.1 - 14.9 % [facility] RDW SD 55.5(H) 35.7 - 48.1 fL [facility] NRBC abs 0.00 0.00 - 0.01 K/cumm [facility] Blood 10/24/2024 4:15 AM CDT 10/24/2024 4:39 AM CDT us Namrata Spencer NP LAB BLOOD ORDERABLES Final Result LAURIE ROSALES [address] Department [place] [address] * XR Chest 1 Vw Portable (10/23/2024 7:31 AM CDT) Anatomical Region Laterality Modality Body, Chest N/A Computed Radiogr aphy 10/23/2024 9:42 AM CDT Impressions 10/23/2024 9:42 AM CDT Persistent right effusion with patchy right lower lobe consolidation. Electronically signed by: Perla Cowart M.D. Narrative 10/23/2024 9:42 AM CDT Examination: [...] consolidation. Electronically signed by: Perla Cowart M.D. us Shailesh Pabon MD IMG XR PROCEDURES Fay [...] CDT 10/23/2024 3:52 AM CDT Namrata Spencer [employer] LAB BLOOD ORDERABLES Final Result [facility] [address] Department [place] [address] * (ABNORMAL) Differential, auto (10/23/2024 3:35 AM CDT) Neutrophil abs 4.54 1.50 - 6.50 K/cumm Imm gran abs 0.02 0.00 - 0.10 K/cumm [facility] Lymphocyte abs 0.51(L) 0.80 - 3.30 K/cumm [facility] Monocyte abs 0.66 0.20 - 0.80 K/cumm [facility] Eosinophil abs 0.08 0.00 - 0.50 K/cumm [facility] Basophil abs 0.01 0.00 - 0.10 K/cumm [facility] Neutrophil pct 78.0 % [facility] Comment: Interpretive Data Percent cell count reference ranges are not reported, since discordance with absolute values may lead to misinterpretation of CBC data. Current Interpretive Data was last revised on 2017. Imm gran pct 0.3 % LAURIE Comment: Interpretive Data Percent cell count reference ranges are not reported, since discordance with absolute values may lead to misinterpretation of CBC data. Current Interpretive Data was last revised on 2017. Lymphocyte pct 8.8 % [facility] Comment: Interpretive Data Percent cell count reference ranges are not reported, since discordance with absolute values may lead to misinterpretation of CBC data. Current Interpretive Data was last revised on 2017. Monocyte pct 11.3 % LAURIE Comment: Interpretive Data Percent cell count reference ranges are not reported, since discordance with absolute values may lead to misinterpretation of CBC data. Current Interpretive Data was last revised on 2017. Eosinophil pct 1.4 % LAURIE Comment: Interpretive Data Percent cell count reference ranges are not reported, since discordance with absolute values may lead to misinterpretation of CBC data. Current Interpretive Data was last revised on 2017. Basophil pct 0.2 % [facility] Comment: Interpretive Data Percent cell count reference ranges are not reported, since discordance with absolute values may lead to misinterpretation of CBC data. Current Interpretive Data was last revised on 2017. Blood 10/23/2024 3:35 AM CDT 10/23/2024 3:52 AM CDT us Namrata Spencer NP LAB BLOOD ORDERABLES Final Result LAURIE [address] Department [place] [address] * (ABNORMAL) Protime-INR (10/23/2024 3:35 AM CDT) PT 30.3(H) 9.7 - 13.0 sec INR 2.75(H) 0.90 - 1.20 [facility] Comment: Interpretive data Oral anticoagulant therapeutic ranges: Venous thromboembolism prophylaxis or treatment: 2.0-3.0 CARDIOLOGY Standard range: 2.0-3.0 High-intensity range: 2.5-3.5 Refer to indication-specific guidelines for appropriate target ranges for prosthetic heart valve replacement. Current interpretive data was last revised on 2019. Blood 10/23/2024 3:35 AM CDT 10/23/2024 3:52 AM CDT Luan Guillermo DO LAB BLOOD ORDERABLES Fay l Result [facility] [address] Department [place] [address] * (ABNORMAL) Basic metabolic panel (10/23/2024 3:35 AM CDT) Sodium 137 135 - 145 mmol/L Potassium, pl 4.1 3.3 - 4.9 mmol/L [facility] Chloride 97 97 - 110 mmol/L [facility] CO2 33(H) 22 - 32 mmol/L [facility] Anion gap 7 2 - 15 mmol/L [facility] BUN 44(H) 6 - 25 mg/dL [facility] Creatinine 1.70(H) 0.80 - 1.30 mg/dL [facility] Glucose 100 70 - 199 mg/dL [facility] Comment: Interpretive Data Fasting glucose >/= 126 [...] 2022. Calcium 8.8 8.5 - 10.3 mg/dL [facility] Blood 10/23/2024 3:35 AM CDT 10/23/2024 3:52 AM CDT Namratamely Spencer [employer] LAB BLOOD ORDERABLES Final Result Performing Organization Address City/[facility]/ZIP Co de Phone Number LAURIE ROSALES [address] Department [place] [employer] [place] [address] * (ABNORMAL) CBC with auto differential (10/23/2024 3:35 AM CDT) Pathologist [facility] WBC 5.82 3.80 - 9.90 K/cumm Hgb 13.8 13.0 - 17.5 g/dL [facility] Hct 41.6 38.9 - 50.3 % [facility] Plt 87(L) 150 - 400 K/cumm [facility] MPV 11.7 9.1 - 12.3 fL [facility] RBC 4.44 4.30 - 5.80 M/cumm [facility] MCV 93.7 81.3 - 96.4 fL [facility] MCH 31.1 27.1 - 33.3 pg [facility] MCHC 33.2 32.3 - 35.7 g/dL [facility] CH RDW CV 16.7(H) 11.1 - 14.9 % [facility] RDW SD 56.9(H) 35.7 - 48.1 fL [facility] NRBC abs 0.00 0.00 - 0.01 K/cumm [facility] Blood 10/23/2024 3:35 AM CDT 10/23/2024 3:52 AM CDT Namrata Vidya Spencer [employer] LAB BLOOD ORDERABLES Final Result Performing Organization Address City/[facility]/ZIP Co de Phone Number LAURIE ROS[address]ES [address] Department [place] [employer] [place] [address] * (ABNORMAL) eGFR (10/22/2024 3:54 AM CDT) Pathologist [facility] eGFR 32(L) >=60 mL/min/1. 73 m2 Comment: [...] Spencer NP LAB BLOOD ORDERABLES Final Result [facility] [address] Department [place] [address] * (ABNORMAL) Differential, auto (10/22/2024 3:54 AM CDT) Neutrophil abs 4.61 1.50 - 6.50 K/cumm Imm gran abs 0.01 0.00 - 0.10 K/cumm [facility] Lymphocyte abs 0.52(L) 0.80 - 3.30 K/cumm [facility] Monocyte abs 0.58 0.20 - 0.80 K/cumm [facility] Eosinophil abs 0.05 0.00 - 0.50 K/cumm [facility] Basophil abs 0.02 0.00 - 0.10 K/cumm [facility] Neutrophil pct 79.6 % LAURIE Comment: Interpretive Data Percent cell [...] revised on 2017. Lymphocyte pct 9.0 % LAURIE ROSALES Comment: Interpretive Data Percent cell count reference ranges are not reported, since discordance with absolute values may lead to misinterpretation of CBC data. Current Interpretive Data was last revised on 2017. Monocyte pct 10.0 % LAURIE ROSALES Comment: Interpretive Data Percent cell count reference ranges are not reported, since discordance with absolute values may lead to misinterpretation of CBC data. Current Interpretive Data was last revised on 2017. Eosinophil pct 0.9 % LAURIE ROSALES Comment: Interpretive Data Percent cell count reference ranges are not reported, since discordance with absolute values may lead to misinterpretation of CBC data. Current Interpretive Data was last revised on 2017. Basophil pct 0.3 % LAURIE ROSALES Comment: Interpretive Data Percent cell count reference ranges are not reported, since discordance with absolute values may lead to misinterpretation of CBC data. Current Interpretive Data was last revised on 2017. Blood 10/22/2024 3:54 AM CDT 10/22/2024 4:23 AM CDT Namrata Spencer NP LAB BLOOD ORDERABLES Final Result LAURIE ROSALES [address] [facility] Department [place] [address] * (ABNORMAL) Protime-INR (10/22/2024 3:54 AM CDT) PT 28.2(H) 9.7 - 13.0 sec INR 2.56(H) 0.90 - 1.20 LAURIE ROSALES Comment: Interpretive data Oral anticoagulant therapeutic ranges: Venous thromboembolism prophylaxis or treatment: 2.0-3.0 CARDIOLOGY Standard range: 2.0-3.0 High-intensity range: 2.5-3.5 Refer to indication-specific guidelines for appropriate target ranges for prosthetic heart valve replacement. Current interpretive data was last revised on 2019. Blood 10/22/2024 3:54 AM CDT 10/22/2024 4:23 AM CDT Namrata Cardozowilliam Spencer NP LAB BLOOD ORDERABLES Final Result LAURIE ROSALES [address] Department [place] [address] * (ABNORMAL) Basic metabolic panel (10/22/2024 3:54 AM CDT) Sodium 134(L) 135 - 145 mmol/L Potassium, pl 4.3 3.3 - 4.9 mmol/L [facility] Chloride 95(L) 97 - 110 mmol/L [facility] CO2 33(H) 22 - 32 mmol/L [facility] CH Anion gap 6 2 - 15 mmol/L [facility] BUN 47(H) 6 - 25 mg/dL [facility] Creatinine 1.99(H) 0.80 - 1.30 mg/dL [facility] Comment:Icteric sample, test results may be affected. Glucose 101 70 - 199 mg/dL [facility] Comment: Interpretive Data Fasting glucose >/= 126 [...] 2022. Calcium 8.8 8.5 - 10.3 mg/dL [facility] Blood 10/22/2024 3:54 AM CDT 10/22/2024 4:24 AM CDT Namrata Cardozowilliam Spencer NP LAB BLOOD ORDERABLES Final Result LAURIE ROSALES [address] Department [place] [address] * (ABNORMAL) CBC with auto differential (10/22/2024 3:54 AM CDT) Pathologist [facility] WBC 5.79 3.80 - 9.90 K/cumm Hgb 13.8 13.0 - 17.5 g/dL [facility] Hct 42.0 38.9 - 50.3 % [facility] Plt 104(L) 150 - 400 K/cumm [facility] MPV 12.3 9.1 - 12.3 fL [facility] RBC 4.46 4.30 - 5.80 M/cumm [facility] MCV 94.2 81.3 - 96.4 fL [facility] MCH 30.9 27.1 - 33.3 pg [facility] MCHC 32.9 32.3 - 35.7 g/dL [facility] RDW CV 16.7(H) 11.1 - 14.9 % [facility] RDW SD 57.1(H) 35.7 - 48.1 fL [facility] NRBC abs 0.00 0.00 - 0.01 K/cumm [facility] Blood 10/22/2024 3:54 AM CDT 10/22/2024 4:23 AM CDT Namrata Spencer NP LAB BLOOD ORDERABLES Final Result BRYNYEE ROSALES [address] [employer] [place], [place] [id number] * Magnesium (10/22/2024 3:54 AM CDT) Pathologist [facility] Magnesium 2.1 1.4 - 2.5 mg/dL Blood 10/22/2024 3:54 AM CDT 10/22/2024 4:24 AM CDT Namrata Spencer NP LAB BLOOD ORDERABLES Final Result LAURIE ROSALES [address] Department [place] [employer] [place] [address] * CT Abdomen Pelvis WO Contrast (10/21/2024 [...] status post aortobiiliac bypass. Electronically signed by: Floyd March 10/21/2024 10:01 AM CDT EXAMINATION: CT ABDOMEN [...] by: Neel Morrison M.D. Delvin Mendenhall MD IMG CT PROCEDURES Final Result * (ABNORMAL) eGFR (10/21/2024 5:17 AM CDT) eGFR 28(L) >=60 mL/min/1. 73 m2 Comment: [...] 5:17 AM CDT 10/21/2024 6:09 AM CDT us Namrata Spencer NP LAB BLOOD ORDERABLES Final Result LAURIE [address] Department [place] [employer] [place] [address] * (ABNORMAL) Differential, auto (10/21/2024 5:17 AM CDT) Neutrophil abs 3.63 1.50 - 6.50 K/cumm Imm gran abs 0.01 0.00 - 0.10 K/cumm [facility] Lymphocyte abs 0.62(L) 0.80 - 3.30 K/cumm [facility] Monocyte abs 0.51 0.20 - 0.80 K/cumm [facility] Eosinophil abs 0.05 0.00 - 0.50 K/cumm [facility] Basophil abs 0.03 0.00 - 0.10 K/cumm [facility] Neutrophil pct 74.9 % [facility] Comment: Interpretive Data Percent cell count reference ranges are not reported, since discordance with absolute values may lead to misinterpretation of CBC data. Current Interpretive Data was last revised on 2017. Imm gran pct 0.2 % [facility] Comment: Interpretive Data Percent cell count reference ranges are not reported, since discordance with absolute values may lead to misinterpretation of CBC data. Current Interpretive Data was last revised on 2017. Lymphocyte pct 12.8 % [facility] Comment: Interpretive Data Percent cell count reference [...] revised on 2017. Eosinophil pct 1.0 % [facility] Comment: Interpretive Data Percent cell count reference [...] AM CDT 10/21/2024 6:10 AM CDT Namrata Vidya Spencer NP LAB BLOOD ORDERABLES Final Result LAURIE ROSALES [address] Department [place] [address] * (ABNORMAL) Protime-INR (10/21/2024 5:17 AM CDT) PT 25.7(H) 9.7 - 13.0 sec INR 2.34(H) 0.90 - 1.20 LAURIE ROSALES Comment: Interpretive data Oral anticoagulant therapeutic ranges: Venous thromboembolism prophylaxis or treatment: 2.0-3.0 CARDIOLOGY Standard range: 2.0-3.0 High-intensity range: 2.5-3.5 Refer to indication-specific guidelines for appropriate target ranges for prosthetic heart valve replacement. Current interpretive data was last revised on 2019. Blood 10/21/2024 5:17 AM CDT 10/21/2024 6:09 AM CDT Namratamely Spencer [employer]ACH[employer] LAB BLOOD ORDERABLES Final Result LAURIE ROSALES [address] Department [place] [address] * (ABNORMAL) Basic metabolic panel (10/21/2024 5:17 AM CDT) Sodium 133(L) 135 - 145 mmol/L Potassium, pl 4.5 3.3 - 4.9 mmol/L [facility] Chloride 95(L) 97 - 110 mmol/L [facility] CO2 28 22 - 32 mmol/L [facility] Anion gap 10 2 - 15 mmol/L [facility] BUN 48(H) 6 - 25 mg/dL [facility] Creatinine 2.23(H) 0.80 - 1.30 mg/dL [facility] Glucose 94 70 - 199 mg/dL [facility] Comment: Interpretive Data Fasting glucose >/= 126 [...] NP LAB BLOOD ORDERABLES Final Result LAURIE [address] Department [place] [address] * (ABNORMAL) CBC with auto differential (10/21/2024 5:17 AM CDT) Pathologist [facility] WBC 4.85 3.80 - 9.90 K/cumm Hgb 14.6 13.0 - 17.5 g/dL [facility] Hct 45.1 38.9 - 50.3 % [facility] Plt 108(L) 150 - 400 K/cumm [facility] MPV 11.2 9.1 - 12.3 fL [facility] RBC 4.73 4.30 - 5.80 M/cumm [facility] MCV 95.3 81.3 - 96.4 fL [facility] MCH 30.9 27.1 - 33.3 pg [facility] MCHC 32.4 32.3 - 35.7 g/dL [facility] CH RDW CV 16.8(H) 11.1 - 14.9 % [facility] CH RDW SD 58.7(H) 35.7 - 48.1 fL [facility] NRBC abs 0.00 0.00 - 0.01 K/cumm [facility] Blood 10/21/2024 5:17 AM CDT 10/21/2024 6:10 AM CDT Namrata Nyakio [place] [employer]ACH[employer] TEND[employer] LAB BLOOD ORDERABLES Final Result LAURIE ROSALES [address] Department of [employer] [place] [id number] * Magnesium (10/21/2024 5:17 AM CDT) Magnesium 2.1 1.4 - 2.5 mg/dL Blood 10/21/2024 5:17 AM CDT 10/21/2024 6:09 AM CDT us Namrata Spencer [employer] LAB BLOOD ORDERABLES Final Result Performing Organization Address [facility] Co de Phone Number LAURIE [address] Department [place] [address] * TRANSTHORACIC ECHO (TTE) COMPLETE W DOPPLER/CF W CONTRAST (10/20/2024 1:23 PM CDT) Pathologist [facility] EF Mod BP 37 % CONS SCIMAGE Anatomical Region Laterality Modality Ultrasound 10/20/2024 12:1 1 PM CDT Narrative 10/21/2024 6:43 [place] [address] Echocardiogram Report Patient Name: IAN MONSALVE H : 1940 Study Date: 10/20/2024 12:11:53 PM Gender: M Tech: Location: [id number] Ref Provider: CARLA JEAN Height(Cm): 170 BSA: [...] of hemodynamically significant aortic stenosis by Doppler. Mrulqest-yf-qtceao pulmonary hypertension, estimated RVSP 60 mmHg. Moderate tricuspid regurgitation. Electronically Signed By: Clive Godfrey MD, [facility] 10/21/2024 6:43:00 AM CDT Procedure Note Clive Godfrey MD - 10/21/2024 [place] [address] Echocardiogram Report Patient Name: IAN MONSALVE H : 1940 Study Date: 10/20/2024 12:11:53 PM Gender: M Tech: Location: [id number] Ref Provider: CARLA JEAN Height(Cm): 170 BSA: [...] evidence of hemodynamicallysignificant aortic stenosis by Doppler. Bmvkbqit-ow-eadplv pulmonary hypertension, estimated RVSP 60 mmHg.Moderate tricuspid regurgitation. Electronically Signed By: Clive Godfrey MD, [facility] 10/21/2024 6:43:00 AM CDT us Carla Jean [...] 6:38 AM CDT 10/20/2024 6:43 AM CDT us Namrata Spencer NP LAB BLOOD ORDERABLES Final Result LAURIE [id number] [address] Department [place] [address] * (ABNORMAL) Differential, auto (10/20/2024 6:38 AM CDT) Neutrophil abs 3.55 1.50 - 6.50 K/cumm Imm gran abs 0.01 0.00 - 0.10 K/cumm [facility] Lymphocyte abs 0.72(L) 0.80 - 3.30 K/cumm [facility] Monocyte abs 0.61 0.20 - 0.80 K/cumm [facility] Eosinophil abs 0.03 0.00 - 0.50 K/cumm [facility] Basophil abs 0.02 0.00 - 0.10 K/cumm [facility] Neutrophil pct 71.9 % [facility] Comment: Interpretive Data Percent cell count reference ranges are not reported, since discordance with absolute values may lead to misinterpretation of CBC data. Current Interpretive Data was last revised on 2017. Imm gran pct 0.2 % [facility] Comment: Interpretive Data Percent cell count reference ranges are not reported, since discordance with absolute values may lead to misinterpretation of CBC data. Current Interpretive Data was last revised on 2017. Lymphocyte pct 14.6 % [facility] Comment: Interpretive Data Percent cell count reference ranges are not reported, since discordance with absolute values may lead to misinterpretation of CBC data. Current Interpretive Data was last revised on 2017. Monocyte pct 12.3 % [facility] Comment: Interpretive Data Percent cell count reference ranges are not reported, since discordance with absolute values may lead to misinterpretation of CBC data. Current Interpretive Data was last revised on 2017. Eosinophil pct 0.6 % [facility] Comment: Interpretive Data Percent cell count reference ranges are not reported, since discordance with absolute values may lead to misinterpretation of CBC data. Current Interpretive Data was last revised on 2017. Basophil pct 0.4 % [facility] Comment: Interpretive Data Percent cell count reference ranges are not reported, since discordance with absolute values may lead to misinterpretation of CBC data. Current Interpretive Data was last revised on 2017. Blood 10/20/2024 6:38 AM CDT 10/20/2024 6:43 AM CDT us Namrata Spencer NP LAB BLOOD ORDERABLES Final Result LAURIE [address] Department [place] [address] * Digoxin level (10/20/2024 6:38 AM CDT) [...] ORDERABLES Final Re sult Performing Organization Address [facility] Co de Phone Number LAURIE ROSALES [id number] [place] [address] * (ABNORMAL) Protime-INR (10/20/2024 6:38 AM CDT) PT 34.5(H) 9.7 - 13.0 sec INR 3.12(H) 0.90 - 1.20 LAURIE ROSALES Comment: Interpretive [...] BLOOD ORDERABLES Final Result Performing Organization Address [facility] Co de Phone Number LAURIE [address] [place], [place] [id number] * (ABNORMAL) Basic metabolic panel (10/20/2024 6:38 AM CDT) Sodium 133(L) 135 - 145 mmol/L Potassium, pl 4.4 3.3 - 4.9 mmol/L [facility] Chloride 96(L) 97 - 110 mmol/L [facility] CH CO2 30 22 - 32 mmol/L [facility] Anion gap 10 2 - 15 mmol/L [facility] BUN 46(H) 6 - 25 mg/dL [facility] Creatinine 2.43(H) 0.80 - 1.30 mg/dL [facility] Glucose 106 70 - 199 mg/dL [facility] Comment: Interpretive Data Fasting glucose >/= 126 [...] 2022. Calcium 8.8 8.5 - 10.3 mg/dL [facility] Blood 10/20/2024 6:38 AM CDT 10/20/2024 6:42 AM CDT Namrata Spencer NP LAB BLOOD ORDERABLES Final Result [facility] [id number] Department [place] [address] * (ABNORMAL) CBC with auto differential (10/20/2024 6:38 AM CDT) Pathologist [facility] WBC 4.94 3.80 - 9.90 K/cumm Hgb 14.2 13.0 - 17.5 g/dL [facility] Hct 43.3 38.9 - 50.3 % [facility] Plt 106(L) 150 - 400 K/cumm [facility] MPV 11.0 9.1 - 12.3 fL [facility] RBC 4.58 4.30 - 5.80 M/cumm [facility] MCV 94.5 81.3 - 96.4 fL [facility] MCH 31.0 27.1 - 33.3 pg [facility] MCHC 32.8 32.3 - 35.7 g/dL [facility] CH RDW CV 16.8(H) 11.1 - 14.9 % [facility] CH RDW SD 58.4(H) 35.7 - 48.1 fL [facility] NRBC abs 0.00 0.00 - 0.01 K/cumm [facility] Blood 10/20/2024 6:38 AM CDT 10/20/2024 6:43 AM CDT Namrata Cardozowilliam Spencer NP LAB BLOOD ORDERABLES Final Result LAURIE ROSALES [address] Department of Laboratories [place], [place] [id number] * Magnesium (10/20/2024 6:38 AM CDT) Magnesium 2.0 1.4 - 2.5 mg/dL Blood 10/20/2024 6:38 AM CDT 10/20/2024 6:42 AM CDT Namrata Dasilva Johanna [employer] LAB BLOOD ORDERABLES Final Result Performing Organization Address [facility] Co de Phone Number LAURIE ROSALES [address] Department [place] [address] * US Retroperitoneal Complete (10/19/2024 3:09 PM [...] Electronically signed by: Rajendra Oh II, D.O. Delvin Mendenhall MD [facility] US PROCEDURES Final Result * Legionella antigen Urine (10/19/2024 12:33 PM CDT) Legionella Ag Negative Negative Comment: Interpretive Data This test detects only Legionella pneumophila serogroup 1 antigen. Current interpretive data was last revised on 2019. Urine 10/19/2024 12:3 3 PM CDT 10/19/2024 12:40 PM CDT Radha Suggs MD LAB MICROBIOLOGY - GENE RAL ORDERABLES Final Result Performing Organization Address [facility] de Phone Number LAURIE ROSALES [address] Department [place] [employer] [address] * Strep pneumoniae antigen, urine Urine (10/19/2024 12:33 PM CDT) Pathologist [facility] S. pneumoniae Ag Negative Negative Comment: A [...] RAL ORDERABLES Final Result Performing Organization Address [facility] de Phone Number LAURIE ROSALES [address] [place] [address] * Urinalysis reflex to microscopic and culture [...] tendency for uric acid stone formation. Source: [facility] Current Interpretive Data was last revised on 2017 Protein, ur ql Negative Negative [facility] Glucose, ur ql Negative Negative [facility] Ketones, ur Negative Negative [facility] Bilirubin, ur Negative Negative [facility] Blood, ur Negative Negative [facility] Urobilinogen, ur <2.0 <2.0 mg/dL [facility] Nitrite, ur Negative Negative [facility] Leukocyte esterase, ur Negative Negative [facility] UA reflex comment Reflex conditions for microscopic UA and culture not met. [facility] Urine 10/19/2024 12:3 3 PM CDT 10/19/2024 12:39 PM CDT Delvin Mendenhall MD LAB MICROBIOLOGY - GENERAL ORD ERABLES Final Result Performing Organization Address [facility] de Phone Number BRYNYEE BOBBY [address] [place] [address] * Protein / creatinine ratio, urine, random (10/19/2024 12:33 PM CDT) Protein, ur, quant 5.8 mg/dL Comment: Interpretive Data No reference range established. Current interpretive data was last revised 2018. Creatinine Ur 46.3 mg/dL [facility] Comment: Interpretive Data No reference range established. Current interpretive data was last revised 2018. Protein/creatinin e ratio 125.3 0.0 - 180.0 mg/g CR [facility] Urine 10/19/2024 12:3 3 PM CDT 10/19/2024 12:39 PM CDT Delvin Mendenhall MD LAB URINE ORDERABLES Final Res ult Performing Organization Address [facility] Co de Phone Number LAURIE ROSALES [id number] Department [employer] [place], [place] [phone] * C3 complement (10/19/2024 12:15 PM CDT) Complement C3 119 90 - 180 mg/dL Blood 10/19/2024 12:1 5 PM CDT 10/19/2024 12:20 PM CDT Delvin Mendenhall MD LAB BLOOD ORDERABLES Final Res ult Performing Organization Address [facility] Co de Phone Number LAURIE [address] [facility] [place] [address] * Erythrocyte sedimentation rate (10/19/2024 12:15 PM CDT) Pathologist [facility] Erythrocyte sedimentation rate 6 1 - 20 mm/hr Comment:Testing performed by : [facility], [place], [address] Blood 10/19/2024 12:1 5 PM CDT 10/19/2024 12:20 PM CDT Delvin Mendenhall MD LAB BLOOD ORDERABLES Final Res ult Performing Organization Address [facility] de Phone Number LAURIE ROSALES [address] [facility] [place] [address] * Hemoglobin A1c (10/19/2024 12:15 PM CDT) Pathologist [facility] Hgb A1C 5.6 4.0 - 5.6 % Estimated Average Glucose 114 mg/dL LAURIE ROSALES Comment: The ADA recommends reporting an estimated Average Glucose (eAG) with all Hemoglobin A1c results using the equation derived from a study of 507 normal and diabetic adults. Minority populations were underrepresented and children were not included. (Diabetes Care 31:6507-8124, 2008). The eAG is not equivalent to a fasting glucose. Blood 10/19/2024 12:1 5 PM CDT 10/19/2024 12:20 PM CDT us Delvin Mendenhall MD LAB BLOOD ORDERABLES Final Res ult Performing Organization Address [facility] Co de Phone Number LAURIE ROSALES [phone] [facility] [place] [address] * LETICIA ab ql w/rflx to LETICIA [...] people above age 65 have significantly positive LEITCIA results. 5% or less of normal people age 65 or under have significantly positive LETICIA results. Current interpretive data was last revised on 2020. Testing performed by: [facility], [address] [place]., [address] Blood 10/19/2024 12:1 5 PM CDT 10/19/2024 2:07 PM CDT us Delvin Mendenhall MD LAB BLOOD ORDERABLES Final Res ult ALURIE ROSALES [address] [place] [address] * ANCA (10/19/2024 12:15 PM CDT) C-ANCA Negative Negative [facility] P-ANCA Negative Negative LAURIE ROSALES Comment: Negative for cANCA and pANCA patterns by immunofluorescence. ADDITIONAL INFORMATION This test was developed and its performance characteristics determined by [facility] in a manner consistent with CLIA requirements. This test has not been cleared or approved by the U.S. Food and Drug Administration. Test Performed by: [facility] [address] [place] [address] Manager Material: Hayder Arzola Ph.D.; CLIA# [id number] Blood 10/19/2024 12:1 5 PM CDT 10/19/2024 12:19 PM CDT us Delvin Mendenhall MD LAB BLOOD ORDERABLES Final Res ult LAURIE ROSALES [address] Department [place] [address] [facility] * (ABNORMAL) eGFR (10/19/2024 5:12 AM CDT) eGFR 36(L) >=60 mL/min/1. 73 m2 Comment: [...] 5:12 AM CDT 10/19/2024 5:20 AM CDT us Namrata Spencer NP LAB BLOOD ORDERABLES Final Result BRYNYEE ROSALES [address] Department [place] [address] * (ABNORMAL) Differential, auto (10/19/2024 5:12 AM CDT) Neutrophil abs 3.68 1.50 - 6.50 K/cumm Imm gran abs 0.02 0.00 - 0.10 K/cumm [facility] Lymphocyte abs 0.73(L) 0.80 - 3.30 K/cumm [facility] Monocyte abs 0.49 0.20 - 0.80 K/cumm [facility] Eosinophil abs 0.07 0.00 - 0.50 K/cumm [facility] Basophil abs 0.03 0.00 - 0.10 K/cumm [facility] Neutrophil pct 73.3 % [facility] Comment: Interpretive Data Percent cell count reference ranges are not reported, since discordance with absolute values may lead to misinterpretation of CBC data. Current Interpretive Data was last revised on 2017. Imm gran pct 0.4 % [facility] Comment: Interpretive Data Percent cell count reference ranges are not reported, since discordance with absolute values may lead to misinterpretation of CBC data. Current Interpretive Data was last revised on 2017. Lymphocyte pct 14.5 % [facility] Comment: Interpretive Data Percent cell count reference ranges are not reported, since discordance with absolute values may lead to misinterpretation of CBC data. Current Interpretive Data was last revised on 2017. Monocyte pct 9.8 % [facility] Comment: Interpretive Data Percent cell count reference ranges are not reported, since discordance with absolute values may lead to misinterpretation of CBC data. Current Interpretive Data was last revised on 2017. Eosinophil pct 1.4 % [facility] Comment: Interpretive Data Percent cell count reference ranges are not reported, since discordance with absolute values may lead to misinterpretation of CBC data. Current Interpretive Data was last revised on 2017. Basophil pct 0.6 % [facility] Comment: Interpretive Data Percent cell count reference ranges are not reported, since discordance with absolute values may lead to misinterpretation of CBC data. Current Interpretive Data was last revised on 2017. Blood 10/19/2024 5:12 AM CDT 10/19/2024 5:19 AM CDT us Namrata Spencer NP LAB BLOOD ORDERABLES Final Result LAURIE [address] Department [place] [address] * (ABNORMAL) Protime-INR (10/19/2024 5:12 AM CDT) PT 34.7(H) 9.7 - 13.0 sec INR 3.14(H) 0.90 - 1.20 [facility] Comment: Interpretive data Oral anticoagulant therapeutic ranges: Venous thromboembolism prophylaxis or treatment: 2.0-3.0 CARDIOLOGY Standard range: 2.0-3.0 High-intensity range: 2.5-3.5 Refer to indication-specific guidelines for appropriate target ranges for prosthetic heart valve replacement. Current interpretive data was last revised on 2019. Blood 10/19/2024 5:12 AM CDT 10/19/2024 5:20 AM CDT Namrata Spencer NP LAB BLOOD ORDERABLES Final Result [facility] [address] Department [place] [address] * (ABNORMAL) Basic metabolic panel (10/19/2024 5:12 AM CDT) Sodium 133(L) 135 - 145 mmol/L Potassium, pl 4.8 3.3 - 4.9 mmol/L [facility] Chloride 96(L) 97 - 110 mmol/L [facility] CO2 30 22 - 32 mmol/L [facility] Anion gap 7 2 - 15 mmol/L [facility] BUN 35(H) 6 - 25 mg/dL [facility] Creatinine 1.83(H) 0.80 - 1.30 mg/dL [facility] Glucose 87 70 - 199 mg/dL [facility] Comment: Interpretive Data Fasting glucose >/= 126 [...] classification and Diagnosis of Diabetes Diabetes Care 2022; 46: S19-S40. Current interpretive data was last revised 2022. Calcium 9.2 8.5 - 10.3 mg/dL [facility] Blood 10/19/2024 5:12 AM CDT 10/19/2024 5:20 AM CDT Namratamely Spencer NP LAB BLOOD ORDERABLES Final Result LAURIE ROSALES [address] [place] [address] * (ABNORMAL) CBC with auto differential (10/19/2024 5:12 AM CDT) [facility] WBC 5.02 3.80 - 9.90 K/cumm Hgb 15.5 13.0 - 17.5 g/dL [facility] Hct 48.5 38.9 - 50.3 % [facility] Plt 125(L) 150 - 400 K/cumm [facility] MPV 11.4 9.1 - 12.3 fL [facility] RBC 5.03 4.30 - 5.80 M/cumm [facility] MCV 96.4 81.3 - 96.4 fL [facility] MCH 30.8 27.1 - 33.3 pg [facility] MCHC 32.0(L) 32.3 - 35.7 g/dL [facility] RDW CV 17.0(H) 11.1 - 14.9 % [facility] RDW SD 59.9(H) 35.7 - 48.1 fL [facility] NRBC abs 0.00 0.00 - 0.01 K/cumm [facility] Blood 10/19/2024 5:12 AM CDT 10/19/2024 5:19 AM CDT Namrata Spencer NP LAB BLOOD ORDERABLES Final Result LAURIE ROSALES [address] Department [place] [address] * Magnesium (10/19/2024 5:12 AM CDT) Magnesium 2.0 1.4 - 2.5 mg/dL Blood 10/19/2024 5:12 AM CDT 10/19/2024 5:20 AM CDT Namrata Lewismercy LAB BLOOD ORDERABLES Final Result Performing Organization Address [facility] Co de Phone Number LAURIE [address] Department [employer] [place], [place] [phone] * (ABNORMAL) Digoxin level (10/18/2024 4:32 PM CDT) Digoxin 1.3(H) 0.5 - 1.2 ng/mL Comment: Interpretive data The therapeutic range for digoxin varies by indication: Heart failure: 0.5 to 0.8 ng/mL Atrial fibrillation: less than 1.2 ng/mL Toxicity: >2.4. Normal or low digoxin does not rule out toxicity. Current interpretive data was last revised on 2024. Blood 10/18/2024 4:32 PM CDT 10/18/2024 8:20 PM CDT Namrata Dasilva Johanna LAB BLOOD ORDERABLES Final Result Performing Organization Address [facility] Co de Phone Number LAURIE ROSALES [address] [place] [address] * (ABNORMAL) Troponin T high-sensitivity 6-hour (10/18/2024 4:32 PM CDT) Trop T hs 51(H) <=22 ng/L Comment: Interpretive Data For further hscTnT resources including the diagnostic algorithm and an aid in interpretation, copy and paste this link: https://nrl.testcatalog.org/show/hsTrop Current Interpretive Data last revised 2020. Trop T hs delta 0 ng/L [facility] Trop T hs interp Insignificant [facility] Blood 10/18/2024 4:32 PM CDT 10/18/2024 4:41 PM CDT Zeke Connelly Correa DO LAB BLOOD ORDERABLES Final Res ult Performing Organization Address [facility]/ZIP Co de Phone Number LAURIE ROSALES [address] Department [place] [address] * (ABNORMAL) Troponin T high-sensitivity 4-hour (10/18/2024 2:42 PM CDT) Trop T hs 51(H) <=22 ng/L Comment: Interpretive Data For further hscTnT resources including the diagnostic algorithm and an aid in interpretation, copy and paste this link: https://nrl.testcatalog.org/show/hsTrop Current Interpretive Data last revised 2020. Trop T hs delta 0 ng/L [facility] Trop T hs interp Insignificant [facility] Blood 10/18/2024 2:42 PM CDT 10/18/2024 2:50 PM CDT Zeke Maricel Correa DO LAB BLOOD ORDERABLES Final Res ult Performing Organization Address [facility] Co de Phone Number LAURIE ROSALES [address] Department [place] [address] * CT Chest WO Contrast (10/18/2024 2:00 [...] Electronically signed by: Rajendra Oh II, D.O. Zeke Correa DO IMG CT PROCEDURES Final Result * Blood culture Blood Peripheral (10/18/2024 1:28 PM CDT) Report Final Report: No growth Comment:Testing performed by : [facility], [address] [place]., [address] Blood (Peripheral) 10/18/2024 1:28 PM CDT 10/18/2024 5:03 PM CDT [facility] 10/23/2024 7:00 AM CDT From a different [...] performance characteristics have been verified by the [facility] Microbiology [facility]. For questions about this culture, contact the Microbiology Laboratory at [phone]. Interpretive data was last revised on 24. Zeke Correa DO LAB MICROBIOLOGY - GENERAL ORD ERABLES Final Result LAURIE [address] Department [place] [address] * Blood culture Blood Peripheral (10/18/2024 1:28 PM CDT) Report Final Report: No growth Comment:Testing performed by : [facility], [address] [place]., [address] Blood (Peripheral) 10/18/2024 1:28 PM CDT 10/18/2024 5:03 PM CDT Ozzie Thornton 10/23/2024 7:00 AM CDT Draw Blood cultures [...] performance characteristics have been verified by the [facility]. For questions about this culture, contact the Microbiology Laboratory at [phone]. Interpretive data was last revised on 24. Zeke Correa DO LAB MICROBIOLOGY - GENERAL ORD ERABLES Final Result Performing Organization Address City/State/ZIP Co hi Phone Number LAURIE ROSALES [address] Department of Laboratories [place], [place] [phone] * (ABNORMAL) Pro B-type natriuretic peptide (10/18/2024 [...] 6 PM CDT 10/18/2024 1:15 PM CDT Zeke Correa DO LAB BLOOD ORDERABLES Final Res ult Performing Organization Address [facility] de Phone Number LAURIE ROSALES [address] Department [place] [address] * (ABNORMAL) Troponin T high-sensitivity 2-hour (10/18/2024 12:26 PM CDT) Trop T hs 54(H) <=22 ng/L Comment: Interpretive Data For further hscTnT resources including the diagnostic algorithm and an aid in interpretation, copy and paste this link: https://nrl.testcatalog.org/show/hsTrop Current Interpretive Data last revised 2020. Trop T hs delta 3 ng/L [facility] Trop T hs interp Insignificant [facility] Blood 10/18/2024 12:2 6 PM CDT 10/18/2024 12:26 PM CDT Zeke Correa DO LAB BLOOD ORDERABLES Final Res ult Performing Organization Address [facility] de Phone Number LAURIE ROSALES [address] Department [place] [address] * XR Chest 1 Vw Portable (10/18/2024 [...] XR PROCEDURES Final Re sult * (ABNORMAL) eGFR (10/18/2024 10:41 AM CDT) eGFR 42(L) >=60 mL/min/1. 73 m2 Comment: [...] LAB BLOOD ORDERABLES Final Res ult LAURIE [address] Department [place] [address] * Differential, auto (10/18/2024 10:41 AM CDT) Neutrophil abs 3.39 1.50 - 6.50 K/cumm Imm gran abs 0.01 0.00 - 0.10 K/cumm [facility] Lymphocyte abs 0.86 0.80 - 3.30 K/cumm [facility] Monocyte abs 0.44 0.20 - 0.80 K/cumm [facility] Eosinophil abs 0.03 0.00 - 0.50 K/cumm [facility] Basophil abs 0.02 0.00 - 0.10 K/cumm [facility] Neutrophil pct 71.4 % [facility] Comment: Interpretive Data Percent cell count reference ranges are not reported, since discordance with absolute values may lead to misinterpretation of CBC data. Current Interpretive Data was last revised on 2017. Imm gran pct 0.2 % [facility] Comment: Interpretive Data Percent cell count reference ranges are not reported, since discordance with absolute values may lead to misinterpretation of CBC data. Current Interpretive Data was last revised on 2017. Lymphocyte pct 18.1 % [facility] Comment: Interpretive Data Percent cell count reference ranges are not reported, since discordance with absolute values may lead to misinterpretation of CBC data. Current Interpretive Data was last revised on 2017. Monocyte pct 9.3 % [facility] Comment: Interpretive Data Percent cell count reference ranges are not reported, since discordance with absolute values may lead to misinterpretation of CBC data. Current Interpretive Data was last revised on 2017. Eosinophil pct 0.6 % [facility] Comment: Interpretive Data Percent cell count reference ranges are not reported, since discordance with absolute values may lead to misinterpretation of CBC data. Current Interpretive Data was last revised on 2017. Basophil pct 0.4 % [facility] Comment: Interpretive Data Percent cell count reference ranges are not reported, since discordance with absolute values may lead to misinterpretation of CBC data. Current Interpretive Data was last revised on 2017. Blood 10/18/2024 10:4 1 AM CDT 10/18/2024 10:56 AM CDT us Zeke Correa DO LAB BLOOD ORDERABLES Final Res ult LAURIE [address] Department [place] [address] * Lactate (10/18/2024 10:41 AM CDT) Pathologist [facility] Lactate 1.3 0.7 - 2.0 mmol/L Blood 10/18/2024 10:4 1 AM CDT 10/18/2024 10:49 AM CDT Zeke Correa DO LAB BLOOD ORDERABLES Final Res ult Performing Organization Address [facility] Co de Phone Number LAURIE Roland[address] Department [place] [employer] [place] [address] * Respiratory pathogen panel Nasopharyngeal (10/18/2024 10:41 AM CDT) Pathologist [facility] Influenza A RNA Not Detected Not Detected Influenza B RNA Not Detected Not Detected [facility] RSV RNA Not Detected Not Detected [facility] COVID-19 RNA Not Detected Not Detected [facility] Coronavirus 229E RNA Not Detected Not Detected [facility] Coronavirus HKU1 RNA Not Detected Not Detected [facility] Coronavirus NL63 RNA Not Detected Not Detected [facility] Coronavirus OC43 RNA Not Detected Not Detected [facility] Adenovirus DNA Not Detected Not Detected [facility] Metapneumovirus RNA Not Detected Not Detected [facility] Rhinovirus/Enterov irus RNA Not Detected Not Detected [facility] Parainfluenza 1 RNA Not Detected Not Detected [facility] Parainfluenza 2 RNA Not Detected Not Detected [facility] Parainfluenza 3 RNA Not Detected Not Detected [facility] Parainfluenza 4 RNA Not Detected Not Detected [facility] B. pertussis DNA Not Detected Not Detected [facility] B. parapertussis DNA Not Detected Not Detected [facility] C. pneumoniae DNA Not Detected Not Detected [facility] M. pneumoniae DNA Not Detected Not Detected [facility] Comment: Interpretive Data The Neurelis FilmArray Respiratory Panel (RP2.1) assay is a [...] assay has FDA clearance for testing of LAUNDRY MACHINE TENDER swabs. The performance characteristics of this assay have been determined by [facility]. Current interpretive data was last revised on 2020. Nasopharyngeal 10/18/2024 10 :41 AM CDT 10/18/2024 10:53 AM CDT Ozzie SULLIVAN - 10/18/2024 12:10 PM CDT Is the Patient experiencing symptoms consistent with COVID?->Yes Surveillance testing for transplant patient?->No us Zeke Correa DO LAB MICROBIOLOGY - GENERAL ORD ERABLES Final Result Performing Organization Address [facility]/ZIP Co de Phone Number LAURIE ROSALES [id number] Department [place] [address] [place] * (ABNORMAL) Troponin T high-sensitivity series (baseline, 2hr, 4hr, 6hr) (10/18/2024 10:41 AM CDT) Pathologist [facility] Trop T hs 51(H) <=22 ng/L Comment: Interpretive Data For further hscTnT resources including the diagnostic algorithm and an aid in interpretation, copy and paste this link: [email or web address].testcatalog.org/[email or web address] Current Interpretive Data last revised 2020. Blood 10/18/2024 10:4 1 AM CDT 10/18/2024 10:56 AM CDT us Zeke Correa DO LAB BLOOD ORDERABLES Edited Re sult - Final Performing Organization Address [facility] Co de Phone Number LAURIE ROSALES [phone] Department [place] [address] * (ABNORMAL) CBC with auto differential (10/18/2024 10:41 AM CDT) [facility] WBC 4.75 3.80 - 9.90 K/cumm Hgb 15.5 13.0 - 17.5 g/dL [facility] Hct 47.4 38.9 - 50.3 % [facility] Plt 132(L) 150 - 400 K/cumm [facility] MPV 12.2 9.1 - 12.3 fL [facility] RBC 4.95 4.30 - 5.80 M/cumm [facility] MCV 95.8 81.3 - 96.4 fL [facility] MCH 31.3 27.1 - 33.3 pg [facility] MCHC 32.7 32.3 - 35.7 g/dL [facility] RDW CV 17.1(H) 11.1 - 14.9 % [facility] RDW SD 59.9(H) 35.7 - 48.1 fL [facility] NRBC abs 0.00 0.00 - 0.01 K/cumm [facility] Blood 10/18/2024 10:4 1 AM CDT 10/18/2024 10:56 AM CDT us Zeke Correa DO LAB BLOOD ORDERABLES Final Res ult [facility] [id number] Department [place] [address] * (ABNORMAL) Comprehensive metabolic panel (10/18/2024 10:41 [...] ORDERABLES Final Res ult Performing Organization Address [facility] Co de Phone Number LAURIE ROSALES [phone] Department [place] [address] * ECG 12 lead (10/18/2024 10:33 AM CDT) 10/18/2024 10:3 3 AM CDT Narrative [facility] - 10/18/2024 2:59 PM CDT Vent Rate: 80 bpm RR Interval: 749 msec RI Interval: 140 msec QRS Duration: 164 msec QT Interval: 377 msec QTC Interval: 412 msec P-R-T [place]: -52 - 226 - 226 degrees IMPRESSION: ELECTRONIC VENTRICULAR PACEMAKER ST DEPRESSION, CONSIDER SUBENDOCARDIAL INJURY [0.1+ mV ST DEPRESSION] ABNORMAL ECG No change compared to prior EKG Electronically Signed By: Emilio Ratliff MD [facility] Zeke Correa DO ECG ORDERABLES Final Result Performing Organization Address [facility] Co de Phone Number [facility] documented in this encounter Visit Diagnoses Diagnosis Acute congestive heart failure, unspecified heart failure type (HCC)- Primary Acute congestive heart failure, unspecified heart failure type (HCC) Chronic kidney disease, unspecified CKD stage Pneumonia of right lung due to infectious organism, unspecified part of lung Acute hypoxemic respiratory failure (HCC) documented in this encounter Admitting Diagnoses Diagnosis Acute congestive heart failure, unspecified heart failure type (HCC) documented in this encounter Administered Medications Inactive Administered Medications - up to 3 most recent administrations Medication Order MAR Action Action Date Dose Rate Site acetaminophen (TYLENOL) tablet 500 mg 500 mg, oral, Every 6 hours PRN, fever, 1st line for pain, Starting on 10/23/24 at 1157 Given 10/27/2024 8:20 PM CDT 500 mg Given 10/26/2024 8:49 PM CDT 500 mg Given 10/25/2024 9:39 PM CDT 500 mg ampicillin-sulbactam (UNASYN) 3 g in sodium chloride 0.9% 100 mL IVPB 3 g, intravenous, at 220 mL/hr, Administer over 30 Minutes, Every 12 hours scheduled, First dose on Thu10/19/24 at 1330, Mini-Bag Plus bag, Indications: Pneumonia, Community AcquiredIndications:Pneumonia, Community Acquired New Bag 10/27/2024 8:18 AM CDT 3 g 220 mL/hr New Bag 10/26/2024 8:33 PM CDT 3 g 220 mL/hr New Bag 10/26/2024 8:36 AM CDT 3 g 220 mL/hr ampicillin-sulbactam (UNASYN) 3 g in sodium chloride 0.9% 100 mL IVPB 3 g, intravenous, at 220 mL/hr, Administer over 30 Minutes, Every 6 hours scheduled, First dose (after last modification) on Brigette 10/27/24 at 1800, Renally dose adjusted per pharmacy protocol for Estimated Creatinine Clearance: 36.7 mL/min (A) (by C-G 65 yr and older- minimum SCr 0.8 based on SCr of 1.4 mg/dL (H)). Body mass index is 27 kg/m . Patient Weight 10/26/24 : 78.2 kg (172 lb 6.4 oz) Mini-Bag Plus bag, Indications: Pneumonia, Community AcquiredIndications:Pneumonia, Community Acquired New Bag 11/03/2024 9:44 AM CDT 3 g 220 mL/hr New Bag 11/03/2024 1:16 AM CDT 3 g 220 mL/hr New Bag 11/02/2024 8:45 PM CDT 3 g 220 mL/hr aspirin enteric coated tablet 81 mg 81 mg, oral, Daily, First dose on Thu10/19/24 at 0900, Do not crush, chew, cut, dissolve, open or otherwise manipulate tablet/capsule., On hold since Thu10/25/2024 at 0808 until manually unheld Given 10/24/2024 10:01 AM CDT 81 mg Given 10/23/2024 8:56 AM CDT 81 mg Given 10/22/2024 8:18 AM CDT 81 mg atenoloL (TENORMIN) tablet 50 mg 50 mg, oral, Daily, First dose on Thu10/19/24 at 0900, Hold for SBB<110 Given 11/03/2024 9:38 AM CDT 50 mg Given 11/02/2024 8:14 AM CDT 50 mg Given 10/31/2024 9:46 AM CDT 50 mg atorvastatin (LIPITOR) tablet 20 mg 20 mg, oral, Nightly, First dose on Thu10/18/24 at 2100 Given 11/02/2024 8:44 PM CDT 20 mg Given 11/01/2024 8:46 PM CDT 20 mg Given 10/31/2024 9:03 PM CDT 20 mg azithromycin (ZITHROMAX) 500 mg in sodium chloride 0.9% 250 mL [id number] IVPB 500 mg, intravenous, at 275 mL/hr, Administer over 60 Minutes, Every 24 hours scheduled, First dose on Thu10/18/24 at 1510, [id number] , Indications: Pneumonia, Community AcquiredIndications:Pneumonia, Community Acquired New 10/20/2024 9:02 AM CDT 500 mg 275 mL/hr New Bag 10/19/2024 8:33 AM CDT 500 mg 275 mL/hr New Bag 10/18/2024 3:26 PM CDT 500 mg 275 mL/hr calcitRIOL (ROCALTROL) capsule 0.25 mcg 0.25 mcg, oral, Daily, First dose on Thu10/19/24 at 0900 Given 11/03/2024 9:47 AM CDT 0.25 mcg Given 11/02/2024 8:14 AM CDT 0.25 mcg Given 11/01/2024 9:34 AM CDT 0.25 mcg cefTRIAXone (ROCEPHIN) 1,000 mg/10 mL in sterile water (premix) 1,000 mg 1,000 mg, intravenous, at 120 mL/hr, Administer over 5 Minutes, Every 24 hours scheduled, First dose on Thu10/18/24 at 1510, Indications: Pneumonia, Community AcquiredIndications:Pneumonia, Community Acquired Given 10/19/2024 8:33 AM CDT 1,000 mg 120 mL/hr Given 10/18/2024 3:26 PM CDT 1,000 mg 120 mL/hr clorazepate (TRANXENE) tablet 7.5 mg 7.5 mg, oral, 2 times daily PRN, anxiety, Starting on Thu10/21/24 at 1500 Given 11/03/2024 9:57 AM CDT 7.5 mg Given 11/02/2024 1:14 PM CDT 7.5 mg Given 10/31/2024 4:10 PM CDT 7.5 mg dextrose 5% infusion 75 mL/hr, intravenous, Continuous, Starting on Thu11/01/24 at 2045 New Bag 11/03/2024 1:16 AM CDT 75 mL/hr 75 mL/hr New Bag 11/01/2024 8:56 PM CDT 75 mL/hr 75 mL/hr docusate sodium (COLACE) capsule 100 mg 100 mg, oral, 2 times daily PRN, constipation, Starting on Thu10/18/24 at 1728, Indications: constipationIndications:constipation Given 10/20/2024 9:05 AM CDT 100 mg dofetilide (TIKOSYN) capsule 125 mcg 125 mcg, oral, 2 times daily, First dose on Thu10/18/24 at 2100, Ensure patient has drug supply prior to discharge., Indications: cardiac arrhythmiaIndications:cardiac arrhythmia Given 11/03/2024 9:38 AM CDT 125 mcg Given 11/02/2024 8:44 PM CDT 125 mcg Given 11/02/2024 8:24 AM CDT 125 mcg fenofibrate nanocrystallized (TRICOR) tablet 145 mg 145 mg, oral, Daily, First dose on Thu10/18/24 at 1815 Given 11/03/2024 9:38 AM CDT 145 mg Given 11/02/2024 8:24 AM CDT 145 mg Given 11/01/2024 9:35 AM CDT 145 mg furosemide (LASIX) 10 mg/mL injection 20 mg 20 mg, intravenous, 2 times daily (for diuretics), First dose on Thu10/19/24 at 0900, For IV push: administer doses < 160 mg at a rate of 20 -40 mg/min. Doses >/= 160 mg should be administered no faster than 4 mg/min. Room temperature only Given 10/19/2024 8:33 AM CDT 20 mg furosemide (LASIX) 10 mg/mL injection 40 mg 40 mg, intravenous, 2 times daily (for diuretics), First dose (after last modification) on Thu10/19/24 at 1600, For IV push: administer doses < 160 mg at a rate of 20 -40 mg/min. Doses >/= 160 mg should be administered no faster than 4 mg/min. Room temperature only Given 10/21/2024 8:08 AM CDT 40 mg Given 10/19/2024 3:44 PM CDT 40 mg furosemide (LASIX) 10 mg/mL injection 40 mg 40 mg, intravenous, Daily, First dose (after last modification) on 10/22/24 at 0900, For IV push: administer doses < 160 mg at a rate of 20 -40 mg/min. Doses >/= 160 mg should be administered no faster than 4 mg/min. Room temperature only Given 10/28/2024 9:06 AM CDT 40 mg Given 10/27/2024 8:21 AM CDT 40 mg Given 10/26/2024 8:36 AM CDT 40 mg furosemide (LASIX) 10 mg/mL injection 40 mg 40 mg, intravenous, Once, On Brigette 10/27/24 at 1830, For 1 dose, For IV push: administer doses < 160 mg at a rate of 20 -40 mg/min. Doses >/= 160 mg should be administered no faster than 4 mg/min. Room temperature only Given 10/27/2024 6:2 2 PM CDT 40 mg furosemide (LASIX) 10 mg/mL injection 40 mg 40 mg, intravenous, Once, On 10/30/24 at 1130, For 1 dose, For IV push: administer doses < 160 mg at a rate of 20 -40 mg/min. Doses >/= 160 mg should be administered no faster than 4 mg/min. Room temperature only Given 10/30/2024 11: 27 AM CDT 40 mg furosemide (LASIX) 10 mg/mL injection 40 mg 40 mg, intravenous, Once, On 10/31/24 at 1200, For 1 dose, For IV push: administer doses < 160 mg at a rate of 20 -40 mg/min. Doses >/= 160 mg should be administered no faster than 4 mg/min. Room temperature only Given 10/31/2024 12: 45 PM CDT 40 mg furosemide (LASIX) 10 mg/mL injection 60 mg 60 mg, intravenous, Once, On 10/18/24 at 1432, For 1 dose, For IV push: administer doses < 160 mg at a rate of 20 -40 mg/min. Doses >/= 160 mg should be administered no faster than 4 mg/min. Room temperature only Given 10/18/2024 2:4 2 PM CDT 60 mg ipratropium-albuteroL (DUO-NEB) 0.5-2.5 mg/3 mL nebulizer solution 3 mL 3 mL, nebulization, Every 4 hours while awake (respiratory therapist), First dose on Thu10/18/24 at 2100 Given 10/30/2024 8:41 AM CDT 3 mL Given 10/29/2024 8:53 PM CDT 3 mL Given 10/29/2024 5:06 PM CDT 3 mL ipratropium-albuteroL (DUO-NEB) 0.5-2.5 mg/3 mL nebulizer solution 3 mL 3 mL, nebulization, Every 6 hours while awake (respiratory therapist), First dose (after last modification) on Thu10/30/24 at 1500 Given 11/03/2024 1:49 PM CDT 3 mL Given 11/03/2024 9:01 AM CDT 3 mL Given 11/02/2024 8:17 PM CDT 3 mL levothyroxine (SYNTHROID) tablet 25 mcg 25 mcg, oral, Daily (early AM), First dose on Thu10/19/24 at 0600, Administer on an empty stomach, preferably 30 minutes before breakfast. Take 4 hours apart from antacids, iron and calcium products. Separate from tube feeds, if applicable. Given 11/03/2024 5:40 AM CDT 25 mcg Given 11/02/2024 5:30 AM CDT 25 mcg Given 11/01/2024 5:17 AM CDT 25 mcg magnesium sulfate 2 g/50 mL in water (premix) 2 g 2 g, intravenous, at 50 mL/hr, Administer over 60 Minutes, Once, On Thu10/28/24 at 1130, For 1 dose New Bag 10/28/2024 12:10 PM CDT 2 g 50 mL/hr midodrine (PROAMATINE) tablet 10 mg 10 mg, oral, 3 times daily before meals, First dose (after last modification) on Thu10/21/24 at 0730, Indications: Symptomatic Orthostatic HypotensionIndications:Symptomatic Orthostatic Hypotension Given 11/03/2024 9:38 AM CDT 10 mg Given 11/02/2024 5:49 PM CDT 10 mg Given 11/02/2024 12:07 PM CDT 10 mg midodrine (PROAMATINE) tablet 5 mg 5 mg, oral, 3 times daily before meals, First dose on Thu10/20/24 at 1730, Indications: Symptomatic Orthostatic HypotensionIndications:Symptomatic Orthostatic Hypotension Given 10/20/2024 5:07 PM CDT 5 mg ondansetron (ZOFRAN) injection 4 mg 4 mg, intravenous, Administer over 2 Minutes, Every 6 hours PRN, nausea, vomiting, Starting on Thu10/18/24 at 1735 pantoprazole (PROTONIX) 40 mg in sodium chloride 0.9% 10 mL IV Syringe 40 mg, intravenous, at 300 mL/hr, Administer over 2 Minutes, Every 24 hours scheduled, First dose on Thu10/18/24 at 1815, For IV administration, reconstitute 40 mg vial with 10 mL sodium chloride 0.9% for injection for a final concentration of 4 mg/mL, Indications: Stress Ulcer ProphylaxisIndications:Stress Ulcer Prophylaxis Given 10/19/2024 8:33 AM CDT 40 mg 300 mL/hr Given 10/18/2024 6:22 PM CDT 40 mg 300 mL/hr pantoprazole DR (PROTONIX) extended release tablet 40 mg 40 mg, oral, Daily, First dose on Thu10/20/24 at 0900, Do not crush, chew, cut, dissolve, open or otherwise manipulate tablet/capsule., Indications: Treatment of Non-Bleeding Gastric DisorderIndications:Treatment of Non-Bleeding Gastric Disorder Given 11/03/2024 9:38 AM CDT 40 mg Given 11/02/2024 8:14 AM CDT 40 mg Given 11/01/2024 9:34 AM CDT 40 mg perflutren protein-a (OPTISON) 3 mL in sodium chloride 0.9% 8 mL syringe 1-8 mL, intravenous, Once in imaging, contrast, Starting on Thu10/20/24 at 1322, For 1 dose, Intra-Procedure (CV) Contrast Given 10/20/2024 1:23 PM CDT 2 mL polyethylene glycol (MIRALAX) packet 17 g 17 g, oral, Daily, First dose on Thu10/21/24 at 1130, Indications: constipationIndications:constipa tion Given 10/21/2024 12:06 PM CDT 17 g potassium chloride ER (KLOR-CON) extended release tablet 20 mEq 20 mEq, oral, Once, On Thu10/28/24 at 1115, For 1 dose, Do not crush, chew, cut, dissolve, open or otherwise manipulate tablet/capsule. Given 10/28/2024 12:10 PM CDT 20 mEq potassium chloride ER (KLOR-CON) extended release tablet 40 mEq 40 mEq, oral, Once, On Thu10/27/24 at 1300, For 1 dose, Do not crush, chew, cut, dissolve, open or otherwise manipulate tablet/capsule. Given 10/27/2024 1:47 PM CDT 40 mEq potassium, sodium phosphates (PHOS-NAK) 280-160-250 mg packet 2 packet 2 packet, oral, 3 times daily before meals, First dose on Thu11/01/24 at 1130, For 2 doses, Each packet contains elemental phosphorus 250 mg (8 mmol), potassium 280 mg (7.1 mEq), and sodium 160 mg (6.9 mEq). Given 11/01/2024 5:30 PM CDT 2 packets Given 11/01/2024 11:56 AM CDT 2 packets ramelteon (ROZEREM) tablet 8 mg 8 mg, oral, Nightly PRN, sleep, Starting on Thu10/18/24 at 2014, Indications: Sleep-Onset InsomniaIndications:Sleep-Onset Insomnia Given 11/02/2024 9:47 PM CDT 8 m g Given 11/01/2024 8:56 PM CDT 8 mg Given 10/30/2024 8:00 PM CDT 8 mg senna-docusate (PERICOLACE) 8.6-50 mg per tablet 1 tablet 1 tablet, oral, 2 times daily, First dose on Thu10/21/24 at 1130 Given 11/02/2024 8:47 PM CDT 1 tablet Given 11/02/2024 8:14 AM CDT 1 tablet Given 10/31/2024 9:11 PM CDT 1 tablet sodium chloride 0.9% 0.9 % irrigation - ADS Override Pull Starting on Thu10/24/24 at 1130, For 1 dose, Created by estee override Given 10/24/2024 2:24 PM CDT 60 mL sodium chloride 0.9% infusion 75 mL/hr, intravenous, Continuous, Starting on 10/29/24 at 0915 New Bag 10/30/2024 10:33 AM CDT 75 mL/hr 75 mL/hr New Bag 10/29/2024 8:22 PM CDT 75 mL/hr 75 mL/hr New Bag 10/29/2024 9:17 AM CDT 75 mL/hr 75 mL/hr tamsulosin (FLOMAX) extended release capsule 0.4 mg 0.4 mg, oral, Daily with dinner, First dose on Thu10/23/24 at 1800, Do not crush, chew, cut, dissolve, open or otherwise manipulate tablet/capsule. Given 11/02/2024 5:49 PM CDT 0.4 mg Given 11/01/2024 5:28 PM CDT 0.4 mg Given 10/31/2024 5:53 PM CDT 0.4 mg tolvaptan (SAMSCA) split tablet 15 mg 15 mg, oral, Every 24 hours, First dose on Thu10/30/24 at 2215, For 2 doses Given 10/31/2024 9:11 PM CDT 15 mg Given 10/30/2024 10:27 PM CDT 15 mg tolvaptan (SAMSCA) tablet 30 mg 30 mg, oral, Once, On Brigette 10/27/24 at 1830, For 1 dose Given 10/27/2024 6:22 PM CDT 30 mg tolvaptan (SAMSCA) tablet 30 mg 30 mg, oral, Once, On Thu10/28/24 at 1615, For 1 dose Given 10/28/2024 4:12 PM CDT 30 mg warfarin (COUMADIN) tablet 1 mg 1 mg, oral, Once (for warfarin), On Thu10/19/24 at 1800, For 1 dose, Target INR: 2 - 3, Indications: atrial fibrillationIndications:atrial fibrillation Given 10/19/2024 6:23 PM CDT 1 mg warfarin (COUMADIN) tablet 1 mg 1 mg, oral, Once (for warfarin), On Thu10/20/24 at 1800, For 1 dose, Target INR: 2 - 3, Indications: atrial fibrillationIndications:atrial fibrillation Given 10/20/2024 5:07 PM CDT 1 mg warfarin (COUMADIN) tablet 1 mg 1 mg, oral, Once (for warfarin), On Thu10/21/24 at 1800, For 1 dose, Target INR: 2 - 3, Indications: atrial fibrillationIndications:atrial fibrillation Given 10/21/2024 5:56 PM CDT 1 mg warfarin (COUMADIN) tablet 1 mg 1 mg, oral, Once (for warfarin), On Thu11/01/24 at 1800, For 1 dose, Target INR: 2 - 3, Indications: atrial fibrillationIndications:atrial fibrillation Given 11/01/2024 6:31 PM CDT 1 mg warfarin (COUMADIN) tablet 2 mg 2 mg, oral, Once (for warfarin), On Thu10/25/24 at 1800, For 1 dose, Target INR: 2 - 3, Indications: atrial fibrillationIndications:atrial fibrillation Given 10/25/2024 6:30 PM CDT 2 mg warfarin (COUMADIN) tablet 2 mg 2 mg, oral, Once (for warfarin), On Thu10/26/24 at 1800, For 1 dose, Target INR: 2 - 3, Indications: atrial fibrillationIndications:atrial fibrillation Given 10/26/2024 5:49 PM CDT 2 mg warfarin (COUMADIN) tablet 2 mg 2 mg, oral, Once (for warfarin), On Thu10/27/24 at 1800, For 1 dose, Target INR: 2 - 3, Indications: atrial fibrillationIndications:atrial fibrillation Given 10/27/2024 5:20 PM CDT 2 mg warfarin (COUMADIN) tablet 2 mg 2 mg, oral, Once (for warfarin), On Thu10/28/24 at 1800, For 1 dose, Target INR: 2 - 3, Indications: atrial fibrillationIndications:atrial fibrillation Given 10/28/2024 5:19 PM CDT 2 mg warfarin (COUMADIN) tablet 3 mg 3 mg, oral, Once (for warfarin), On Thu10/30/24 at 1800, For 1 dose, Target INR: 2 - 3, Indications: atrial fibrillationIndications:atrial fibrillation Given 10/30/2024 7:05 PM CDT 3 mg warfarin (COUMADIN) tablet 4 mg 4 mg, oral, Once (for warfarin), On 10/29/24 at 1800, For 1 dose, Target INR: 2 - 3, Indications: atrial fibrillationIndications:atrial fibrillation Given 10/29/2024 6:01 PM CDT 4 mg warfarin (COUMADIN) tablet 5 mg 5 mg, oral, Once (for warfarin), On 10/31/24 at 1800, For 1 dose, Target INR: 2 - 3, Indications: atrial fibrillationIndications:atrial fibrillation Given 10/31/2024 7:35 PM CDT 5 mg documented in this encounter Discontinued Medications Medication Sig Discontinue Reason Start Date End Da te furosemide (LASIX) 40 mg tablet Take 0.5 tablets (20 mg total) by mouth daily Error 04/05/2019 10/18/2024 lisinopriL (PRINIVIL,ZESTRIL) 5 mg tablet Take 1 tablet (5 mg total) by mouth daily Error 07/12/2022 10/18/2024 magnesium oxide (MAG-OX) 400 mg (241.3 mg elemental magnesium) tabletIndications:hypo magnesemia Take 1 tablet (400 mg total) by mouth daily Error 10/18/2024 multivit gyswkngx-mcgr-QY-calci um (THERA-M) 9 mg iron-400 mcg tabletIndications:Verónica min Deficiency Prevention Take 1 tablet by mouth daily Error 10/18/2024 sertraline (ZOLOFT) 25 mg tablet Take 1 tablet (25 mg total) by mouth daily Error 10/18/2024 warfarin (COUMADIN) 5 mg tablet Take 0.5 tablets (2.5 mg total) by mouth daily Error 10/18/2024 aspirin 81 mg enteric coated tablet Take 1 tablet (81 mg total) by mouth daily Stop Taking at Discharge 12/07/2015 11/03/2024 digoxin (LANOXIN) 250 mcg (0.25 mg) tablet Take 1 tablet (250 mcg total) by mouth 3 (three) times a week on Thu, Thu, Thu Stop Taking at Discharge 10/07/2024 11/03/2024 documented as of this encounter Historical Medications * This list may reflect changes made after this encounter. ergocalciferol (VITAMIN D) 50,000 unit capsule Take 1 capsule (50,000 Units total) by mouth once a week on Sat Tikosyn 125 mcg capsule Take 1 capsule (125 mcg total) by mouth 2 (two) times a day 10/07/2024 calcitRIOL (ROCALTROL) 0.25 mcg capsule Take 1 capsule (0.25 mcg total) by mouth daily warfarin (COUMADIN) 2 mg tablet Take 0.5 tablets (1 mg total) by mouth 6 (six) times a week from Thursday to Thursday warfarin (COUMADIN) 2 mg tablet Take 1 tablet (2 mg total) by mouth once a week on Tuesdays digoxin (LANOXIN) 250 mcg (0.25 mg) tablet Take 1 tablet (250 mcg total) by mouth 3 (three) times a week on Thu, Thu, Thu10/07/2024 added in this encounter Active and Recently Administered Medications Times are shown in CDT. Scheduled Medication Order 11/01/2024 11/02/2024 11/03/2024 ampicillin-sulbactam (UNASYN) 3 g in sodium chloride 0.9% 100 mL IVPB 3 g, intravenous, at 220 mL/hr, Administer over 30 Minutes, Every 6 hours scheduled, First dose (after last modification) on Brigette 10/27/24 at 1800, Renally dose adjusted per pharmacy protocol for Estimated Creatinine Clearance: 36.7 mL/min (A) (by C-G 65 yr and older- minimum SCr 0.8 based on SCr of 1.4 mg/dL (H)). Body mass index is 27 kg/m . Patient Weight 10/26/24 : 78.2 kg (172 lb 6.4 oz) Mini-Bag Plus bag, Indications: Pneumonia, Community Acquired 0128 (New Bag - Provider: Krystle Alvares RN)0935 (New Bag - Provider: Dinora Lerner RN)1311 (New Bag - Provider: Dinora Lerner RN)2045 (New Bag - Provider: Darby Puckett) 0150 (New Bag - Provider: Darby Puckett)0814 (New Bag - Provider: Bulmaro Esquivel RN)1141 (Rate/Dose Verify - Provider: Bulmaro Esquivel, MAUREEN)1314 (New Bag - Provider: Bulmaro Esquivel, RN)1344 (Stopped - Provider: Bulmaro A. Lively, RN)1514 (Canceled Entry - Provider: Bulmaro Esquivel RN - Comment: Cancelled from back documented administration.)204 5 (New Bag - Provider: Darby Puckett) 0116 (New Bag - Provider: Darby Puckett)0944 (New Bag - Provider: Dustin Barrett, MAUREEN)1449 (Not Given - Provider: Dustin Barrett, MAUREEN - Reason: Other - Comment: no iv access patient to dc) aspirin enteric coated tablet 81 mg 81 mg, oral, Daily, First dose on Thu10/19/24 at 0900, Do not crush, chew, cut, dissolve, open or otherwise manipulate tablet/capsule., On hold since Thu10/25/2024 at 0808 until manually unheld 0900 (Not Given - Provider: Dinora Lerner RN - Reason: Order parameters not met) 0900 (Dose Auto Held) 0900 (Dose Auto Held)194 (Unheld by Provider - Provider: Automatic Discharge Provider) atenoloL (TENORMIN) tablet 50 mg 50 mg, oral, Daily, First dose on Thu10/19/24 at 0900, Hold for SBB<110 0935 (Not Given - Provider: Dinora Lerner RN - Reason: Order parameters not met) 0814 (Given - Provider: Bulmaro Esquivel RN) 0938 (Given - Provider: Dustin Barrett, MAUREEN) atorvastatin (LIPITOR) tablet 20 mg 20 mg, oral, Nightly, First dose on Thu10/18/24 at 2100 2046 (Given - Provider: Darby Puckett) 2044 (Given - Provider: Darby Puckett) calcitRIOL (ROCALTROL) capsule 0.25 mcg 0.25 mcg, oral, Daily, First dose on Thu10/19/24 at 0900 0934 (Given - Provider: Dinora Lerner RN) 0814 (Given - Provider: Bulmaro Esquivel RN) 0947 (Given - Provider: Dustin Barrett, MAUREEN) dofetilide (TIKOSYN) capsule 125 mcg 125 mcg, oral, 2 times daily, First dose on Thu10/18/24 at 2100, Ensure patient has drug supply prior to discharge., Indications: cardiac arrhythmia 0934 (Given - Provider: Dinora Lerner RN)204 (Given - Provider: Darby Puckett) 0824 (Given - Provider: Bulmaro Esquivel, MAUREEN)204 (Given - Provider: Darby Puckett) 0938 (Given - Provider: Dustin Barrett, MAUREEN) fenofibrate nanocrystallized (TRICOR) tablet 145 mg 145 mg, oral, Daily, First dose on Thu10/18/24 at 1815 0935 (Given - Provider: Dinora Lerner RN) 0824 (Given - Provider: Bulmaro Esquivel RN) 0938 (Given - Provider: Dustin Barrett, MAUREEN) ipratropium-albuteroL (DUO-NEB) 0.5-2.5 mg/3 mL nebulizer solution 3 mL 3 mL, nebulization, Every 6 hours while awake (respiratory therapist), First dose (after last modification) on Thu10/30/24 at 1500 0956 (Given - Provider: Paul Yan, PHYSICAL SCIENTIST)1445 (Given - Provider: Paul Yan, PHYSICAL SCIENTIST)202 (Given - Provider: Nicole Knox, PHYSICAL SCIENTIST) 0840 (Given - Provider: Jazzy Ring, PHYSICAL SCIENTIST)1438 (Given - Provider: Vernell Pino, PHYSICAL SCIENTIST)2017 (Given - Provider: Tiffanie Wade, PHYSICAL SCIENTIST) 0901 (Given - Provider: Noah Lynne, PHYSICAL SCIENTIST)1349 (Given - Provider: Noah Lynne, PHYSICAL SCIENTIST) levothyroxine (SYNTHROID) tablet 25 mcg 25 mcg, oral, Daily (early AM), First dose on Thu10/19/24 at 0600, Administer on an empty stomach, preferably 30 minutes before breakfast. Take 4 hours apart from antacids, iron and calcium products. Separate from tube feeds, if applicable. 0517 (Given - Provider: Krystle Alvares RN) 0530 (Given - Provider: Darby Puckett) 0540 (Given - Provider: Darby Puckett) midodrine (PROAMATINE) tablet 10 mg 10 mg, oral, 3 times daily before meals, First dose (after last modification) on Thu10/21/24 at 0730, Indications: Symptomatic Orthostatic Hypotension 0934 (Given - Provider: Dinora Lerner RN)1156 (Given - Provider: Dinora Lerner RN)1728 (Given - Provider: Dinora Lerner RN) 0814 (Given - Provider: Bulmaro Esquivel RN)1207 (Given - Provider: Bulmaro Esquivel RN)1749 (Given - Provider: Bulmaro Esquivel RN) 0938 (Given - Provider: Dustin Barrett RN)1222 (Not Given - Provider: Dustin Barrett RN - Reason: Other - Comment: previous dose administered late) pantoprazole DR (PROTONIX) extended release tablet 40 mg 40 mg, oral, Daily, First dose on Thu10/20/24 at 0900, Do not crush, chew, cut, dissolve, open or otherwise manipulate tablet/capsule., Indications: Treatment of Non-Bleeding Gastric Disorder 0934 (Given - Provider: Dinora Lerner RN) 08 (Given - Provider: Bulmaro Esquivel RN) 0938 (Given - Provider: Dustin Barrett RN) potassium, sodium phosphates (PHOS-NAK) 280-160-250 mg packet 2 packet (COMPLETED) 2 packet, oral, 3 times daily before meals, First dose on Thu11/01/24 at 1130, For 2 doses, Each packet contains elemental phosphorus 250 mg (8 mmol), potassium 280 mg (7.1 mEq), and sodium 160 mg (6.9 mEq). 1156 (Given - Provider: Dinora Lerner RN)1730 (Given - Provider: Dinora Lerner RN) senna-docusate (PERICOLACE) 8.6-50 mg per tablet 1 tablet 1 tablet, oral, 2 times daily, First dose on Thu10/21/24 at 1130 0934 (Not Given - Provider: Dinora Lerner RN - Reason: Order parameters not met - Comment: stool soft)2046 (Not Given - Provider: Darby Puckett - Reason: Patient/family refused) 0814 (Given - Provider: Bulmaro Esquivel RN)204 (Given - Provider: Darby Puckett) 0938 (Not Given - Provider: Dustin Barrett RN - Reason: Patient/family refused) tamsulosin (FLOMAX) extended release capsule 0.4 mg 0.4 mg, oral, Daily with dinner, First dose on Thu10/23/24 at 1800, Do not crush, chew, cut, dissolve, open or otherwise manipulate tablet/capsule. 1728 (Given - Provider: Dinora Lerner RN) 1749 (Given - Provider: Bulmaro Esquivel RN) warfarin (COUMADIN) tablet 1 mg (COMPLETED) 1 mg, oral, Once (for warfarin), On Thu11/01/24 at 1800, For 1 dose, Target INR: 2 - 3, Indications: atrial fibrillation 183 (Given - Provider: Dinora Lerner RN) Continuous Medication Order 11/01/2024 11/02/2024 11/03/2024 dextrose 5% infusion 75 mL/hr, intravenous, Continuous, Starting on Thu11/01/24 at 2044 2055 (New Bag - Provider: Darby Puckett) 0116 (New Bag - Provider: Darby Puckett)194 (Due: Stopped) PRN Medication Order 11/01/2024 11/02/2024 11/03/2024 acetaminophen (TYLENOL) tablet 500 mg 500 mg, oral, Every 6 hours PRN, fever, 1st line for pain, Starting on Thu10/23/24 at 1157 clorazepate (TRANXENE) tablet 7.5 mg 7.5 mg, oral, 2 times daily PRN, anxiety, Starting on Thu10/21/24 at 1500 1314 (Given - Provider: Bulmaro Esquivel RN) 0957 (Given - Provider: Dustin Barrett RN) fluticasone propionate (FLONASE) 50 mcg/actuation nasal spray 2 spray 2 spray, each nostril, Daily PRN, rhinitis, allergies, Starting on Thu10/18/24 at 1731 ondansetron (ZOFRAN) injection 4 mg 4 mg, intravenous, Administer over 2 Minutes, Every 6 hours PRN, nausea, vomiting, Starting on Thu10/18/24 at 1735 ramelteon (ROZEREM) tablet 8 mg 8 mg, oral, Nightly PRN, sleep, Starting on Thu10/18/24 at 2014, Indications: Sleep-Onset Insomnia 2055 (Given - Provider: Darby Puckett) 2146 (Given - Provider: Darby Puckett) documented in this encounter Orders Medications Ordered That Alexis ht Not Have Been Administered Count Last Ordered Date First Ordered Date furosemide (LASIX) 10 mg/mL injection 40 mg 2 10/30/2024 10/28/2024 digoxin (LANOXIN) tablet 62.5 mcg 1 025 warfarin (COUMADIN) tablet 1 mg 1 clorazepate (TRANXENE) tablet 7.5 mg 1 09/23 digoxin (LANOXIN) tablet 250 mcg 1 10/19/19 25 enoxaparin (LOVENOX) syringe 30 mg 1 2024 enoxaparin (LOVENOX) syringe 40 mg 1 2024 fluticasone propionate (FLON ASE) 50 mcg/actuation nasal spray 2 spray 1 10/18/2024 ondansetron (ZOFRAN) injection 4 mg 1 10/18 Imaging Orders Without Results Count Last Order ed Date First Ordered Date HOME O2 EVAL (DESATURATION SCREEN) 1 2024 General Supply Count Last Ordered Date First Or dered Date OXYGEN 1 10/31/2024 Nursing Count Last Ordered Date First Orde red Date DISCHARGE ACTIVITY 1 11/03/2024 FOLLOW UP WITH ESTABLISHED PROVIDER 3 11/03 CONTINUOUS PULSE OXIMETRY 1 10/18/2024 Consult Count Last Ordered Date First Orde red Date IP CONSULT TO UROLOGY 2 10/23/2024 IP CONSULT TO CARDIOLOGY 1 10/18/2024 IP CONSULT TO PULMONOLOGY 1 10/18/2024 IV Count Last Ordered Date First Orde red Date SALINE LOCK IV 1 10/18/2024 Admission Count Last Ordered Date First Orde red Date ADMIT TO INPATIENT 1 10/18/2024 Discharge Count Last Ordered Date First Orde red Date DISCHARGE PATIENT 1 11/03/2024 documented in this encounter Additional Health Concerns Infection Onset Date Last Indicated Resolved Time COVID: Suspected 10/18/2024 10/18/2024 10/18/2024 12:11 PM CDT documented as of this encounter Care Teams Front End Mechanic Relationship Specialty Start Date End Date Sofie Kelly MD [address] [place] [address] PCP - General Family Medicine 02/24/23 Donte Camacho MD [address] [place] [address] Consulting Physician Cardiology 02/24/23 Delvin Mendenhall MD [address] [place] [address] Consulting Physician Nephrology 02/24/23 [place] [address] [place] [address] Consulting Physician Pulmonary Disease 11/03/24 Rhoda Lacy, [employer]UNDR[employer] MACHINE TENDER [address] [place] [address] Nurse Practitioner Urology 11/03/24 documented as of this encounter
--- OUTSIDE RECORDS SUMMARY | 2024-11-04 08:00 | XMS_ITS | Data Portability ---
Author Organization [facility], Main Office Address [address] [place] [address] Assessment Encounter Date Assessment Date Assessment LastModified by Organization Details LastModified Time 11/26/2022 11/26/2022 Chronic medical problems have been discussed can add a little bit of Imodium for his IBS diarrhea he will follow-up with me in about 6 months [email or web address] Not available 11/30/2022 15:16:59 Plan of Treatment Reminders Order Date Submit Date Provider Last Modified By Organization Details Last Modified Time Details Appointments None recorded. Lab None recorded. Referral None recorded. Procedures None recorded. Surgeries None recorded. Imaging None recorded. Medication Orders atenolol 50 mg tablet 2022 023 [email or web address] [id number], [address], [place], [place], [id number], 13:02:55 Patient TargetsNo targets recorded. Patient InstructionsNo instructions recorded. Reason for Referral None Reported. Results Created Date Observation Date Name Description Value Unit Range Abnormal Flag Note LastModifiedBy Organization Detail LastModifiedTime 11/29/19 21 11/28/2020 LIPID PANEL LDL cholesterol, calculated 84 mg/dL 0-130 NIH ARTEMIO NSUS REPOR T RECOM MENDA TIONS FOR LDL: ADULT CHILD LOW RISK <130 <110 (OPTI MAL LDL) <100 ----- BORDE RLINE : 130-1 59 ----- HIGH RISK: >160 >130 A TRIGL YCERI DE RESUL T >400 INVAL IDATE S THE CALCU LATIO N FOR LDL FRACT IONAT ION - THE LDL RESUL T WILL NOT BE REPOR ARTEMIO. Not Available [facility] (Lab) [address], [place], [address], 11/28/2020 20:30:30 11/29/19 21 11/28/2020 LIPID PANEL cholesterol 157 mg/dL 140-19 9 NIH ARTEMIO NSUS RECOM MENDA TION FOR ROSEY STERO L: ADULT CHILD LOW RISK: <200 <170 BORDE RLINE : <200- 239 ----- HIGH RISK: >240 >200 Not Available [facility] (Lab) [address] [place], [address], 11/28/2020 20:30:30 11/29/19 21 11/28/2020 LIPID PANEL triglyceride s 252 mg/dL 0-150 high NIH ARTEMIO NSUS REPOR T RECOM MENDA TION FOR TRIGL YCERI DEA: ADULT CHILD LOW RISK: <150 ----- BODER LINE: 150-1 99 ----- HIGH RISK: >200 ----- Not Available [facility] (Lab) [address] [place], [address], 11/28/2020 20:30:30 11/29/19 21 11/28/2020 LIPID PANEL HDL cholesterol 23 mg/dL 40- low Not Available [facility] (Lab) [address] [place], [address], 11/28/2020 20:30:30 11/29/19 21 11/28/2020 COMPR EHENS KATTY METAB OLIC PANEL sodium 140 mmol/ L 137-14 5 Not Available [facility] (Lab) [address] [place], [address], 11/28/2020 20:30:24 11/29/19 21 11/28/2020 COMPR EHENS KATTY METAB OLIC PANEL potassium 4.6 mmol/ L 3.5-5. 1 Not Available [facility] (Lab) [address] [place], [address], 11/28/2020 20:30:24 11/29/19 21 11/28/2020 COMPR EHENS KATTY METAB OLIC PANEL chloride 106 mmol/ L 98-107 Not Available [facility] (Lab) [address] [place], [address], 11/28/2020 20:30:24 11/29/19 21 11/28/2020 COMPR EHENS KATTY METAB OLIC PANEL carbon dioxide 28 mmol/ L 22-30 Not Available [facility] (Lab) [address] [place], [address], 11/28/2020 20:30:24 11/29/19 21 11/28/2020 COMPR EHENS KATTY METAB OLIC PANEL agap 10.6 mmol/ L 14-22 low Not Available [facility] (Lab) [address] [place], [address], 11/28/2020 20:30:24 11/29/19 21 11/28/2020 COMPR EHENS KATTY METAB OLIC PANEL glucose 112 mg/dL 70-99 high Not Available [facility] (Lab) [address] [place], [address], 11/28/2020 20:30:24 11/29/19 21 11/28/2020 COMPR EHENS KATTY METAB OLIC PANEL BUN 45 mg/dL 8-19 high Not Available [facility] (Lab) [address] [place], [address], 11/28/2020 20:30:24 11/29/19 21 11/28/2020 COMPR EHENS KATTY METAB OLIC PANEL creatinine 2.06 mg/dL 0.66-1 .25 high Not Available [facility] (Lab) [address] [place], [address], 11/28/2020 20:30:24 11/29/19 21 11/28/2020 COMPR EHENS KATTY METAB OLIC PANEL GFR 31 Refer ence Range : [place] ge GFR Healt hy Adult : >60 mL/mi n/1.7 3 m2 Chron ic Kidne y Disea se: 15-60 mL/mi n/1.7 3 m2 Kidmary y Failu re: <15/m L/min /1.73 m2 www.n iddk. nih.g ov MDRD study equat ion hasn' t been valid ated in child kelli <18 yrs of age, pregn ant women , the elder ly >85 yrs of age, or in some racia l or ethni c subgr oups, suc as Hispa nics. Outsi de the valid ated myles eters , estim ated GFR is less accur ate requi ring clini jailyn judgm ent on a case by case basis . Clini jailyn inter preta tion for other races and ages must be made by the clini sara . Futhe rmore , any of th e limit ation s with the use of serum creat inine relat ed to nutri rick l statu s o r medic ation usage hasn' t accou nted for the MDRD Study equat ion. For perso ns < 18 yrs of age, a pedia tric GFR calcu lator can be locat ed on the [facility] websi te: https ://belkys w.alia hernandezy.o rg/pr ofess ional s/kdo qi/gf r_cal culat or Not Available [facility] (Lab) [address] [place], [address], 11/28/2020 20:30:24 11/29/19 21 11/28/2020 COMPR EHENS KATTY METAB OLIC PANEL alkaline phosphatase 74 U/L 38-126 Not Available [facility] (Lab) [address] [place], [address], 11/28/2020 20:30:24 11/29/19 21 11/28/2020 COMPR EHENS KATYT METAB OLIC PANEL alanine aminotransfe rase 25 U/L 0-50 Not Available [facility] (Lab) [address] [place], [address], 11/28/2020 20:30:24 11/29/19 21 11/28/2020 COMPR EHENS KATTY METAB OLIC PANEL aspartate aminotransfe rase 46 U/L 15-46 Not Available [facility] (Lab) [address] [place], [address], 11/28/2020 20:30:24 11/29/19 21 11/28/2020 COMPR EHENS KATTY METAB OLIC PANEL bilirubin, total 1.00 mg/dL 0.20-1 .30 Not Available [facility] (Lab) [address] [place], [address], 11/28/2020 20:30:24 11/29/19 21 11/28/2020 COMPR EHENS KATTY METAB OLIC PANEL calcium 9.4 mg/dL 8.4-10 .2 Not Available [facility] (Lab) [address] [place], [address], 11/28/2020 20:30:24 11/29/19 21 11/28/2020 COMPR EHENS KATTY METAB OLIC PANEL total protein 7.2 g/dL 6.3-8. 2 Not Available [facility] (Lab) [address] [place], [address], 11/28/2020 20:30:24 11/29/19 21 11/28/2020 COMPR EHENS KATTY METAB OLIC PANEL albumin 4.4 g/dL 3.0-4. 4 Not Available [facility] (Lab) [address] [place], [address], 11/28/2020 20:30:24 11/29/19 21 11/28/2020 COMPR EHENS KATTY METAB OLIC PANEL globulin 2.8 g/dL 2.6-4. 2 Not Available [facility] (Lab) [address] [place], [address], 11/28/2020 20:30:24 11/29/19 21 11/28/2020 COMPR EHENS KATTY METAB OLIC PANEL A/G ratio 1.6 ratio 1.0-2. 0 Not Available [facility] (Lab) [address] [place], [address], 11/28/2020 20:30:24 11/29/19 21 11/28/2020 HEMOG LOBIN A1C HA1C 6.1 % 4.0-6. 0 high Diabe khalida Viete gisela Crite korey: <5.7% Consi stent with absen ce of diabe khalida 5.7-6 .4% Consi stent with incre ased risk for diabe khalida (pred iabet es) >OR=6 .5% Consi stent with diabe khalida REFER ENCE: Diabe khalida Care 2016, 39(Ramires ppl.1 ):s13 -s22 Not Available [facility] (Lab) [address] [place], [address], 11/28/2020 19:17:23 11/29/19 21 11/28/2020 CBC/C OMPLE TE BLD COUNT W/DIF F hematocrit 52.2 % 39.3-5 0.0 high Not Available [facility] (Lab) [address] [place], [address], 11/28/2020 15:27:41 11/29/19 21 11/28/2020 CBC/C OMPLE TE BLD COUNT W/DIF F white blood cells 4.3 x10'3 /uL 4.2-10 .8 Not Available [facility] (Lab) [address] [place], [address], 11/28/2020 15:27:41 11/29/19 21 11/28/2020 CBC/C OMPLE TE BLD COUNT W/DIF F red blood cells 5.41 x10'6 /uL 4.10-5 .80 Not Available [facility] (Lab) [address] [place], [address], 11/28/2020 15:27:41 11/29/19 21 11/28/2020 CBC/C OMPLE TE BLD COUNT W/DIF F hemoglobin 17.0 g/dL 13.2-1 7.0 Not Available [facility] (Lab) [address] [place], [address], 11/28/2020 15:27:41 11/29/19 21 11/28/2020 CBC/C OMPLE TE BLD COUNT W/DIF F mean red cell volume 96.5 fL 80.0-9 7.0 Not Available [facility] (Lab) [address] [place], [address], 11/28/2020 15:27:41 11/29/19 21 11/28/2020 CBC/C OMPLE TE BLD COUNT W/DIF F mean red cell hemoglobin 31.4 pg 27.0-3 3.0 Not Available [facility] (Lab) [address] [place], [address], 11/28/2020 15:27:41 11/29/19 21 11/28/2020 CBC/C OMPLE TE BLD COUNT W/DIF F mean RBC HGB concentratio n 32.6 g/dL 31.0-3 6.0 Not Available [facility] (Lab) [address] [place], [address], 11/28/2020 15:27:41 11/29/19 21 11/28/2020 CBC/C OMPLE TE BLD COUNT W/DIF F red cell distribution width 14.4 % 11.8-1 5.5 Not Available [facility] (Lab) [address] [place], [address], 11/28/2020 15:27:41 11/29/19 21 11/28/2020 CBC/C OMPLE TE BLD COUNT W/DIF F platelets 148 x10'3 /uL 150-40 0 low Not Available [facility] (Lab) [address] [place], [address], 11/28/2020 15:27:41 11/29/19 21 11/28/2020 CBC/C OMPLE TE BLD COUNT W/DIF F mean platelet volume 10.8 fL 9.0-12 .4 Not Available [facility] (Lab) [address] [place], [address], 11/28/2020 15:27:41 11/29/19 21 11/28/2020 CBC/C OMPLE TE BLD COUNT W/DIF F neutrophils 60.8 % 39.0-7 2.0 Not Available [facility] (Lab) [address] [place], [address], 11/28/2020 15:27:41 11/29/19 21 11/28/2020 CBC/C OMPLE TE BLD COUNT W/DIF F lymphocytes 23.1 % 16.0-4 7.0 Not Available [facility] (Lab) [address] [place], [address], 11/28/2020 15:27:41 11/29/19 21 11/28/2020 CBC/C OMPLE TE BLD COUNT W/DIF F monocytes 13.1 % 5.0-12 .0 high Not Available [facility] (Lab) [address] [place], [address], 11/28/2020 15:27:41 11/29/19 21 11/28/2020 CBC/C OMPLE TE BLD COUNT W/DIF F eosinophils 2.1 % 1.0-7. 0 Not Available [facility] (Lab) [address] [place], [address], 11/28/2020 15:27:41 11/29/19 21 11/28/2020 CBC/C OMPLE TE BLD COUNT W/DIF F basophils 0.7 % 0.0-2. 0 Not Available [facility] (Lab) [address] [place], [address], 11/28/2020 15:27:41 11/29/19 21 11/28/2020 CBC/C OMPLE TE BLD COUNT W/DIF F immature granulocytes 0.2 % 0.00-0 .50 Not Available [facility] (Lab) [address] [place], [address], 11/28/2020 15:27:41 11/29/19 21 11/28/2020 CBC/C OMPLE TE BLD COUNT W/DIF F neutrophils, absolute count 2.61 x10'3 /uL 1.5-8. 0 Not Available [facility] (Lab) [address] [place], [address], 11/28/2020 15:27:41 11/29/19 21 11/28/2020 CBC/C OMPLE TE BLD COUNT W/DIF F lymphocytes, absolute count 0.99 x10'3 /uL 1.07-3 .43 low Not Available [facility] (Lab) [address] [place], [address], 11/28/2020 15:27:41 11/29/19 21 11/28/2020 CBC/C OMPLE TE BLD COUNT W/DIF F monocytes, absolute count 0.56 x10'3 /uL 0.29-0 .99 Not Available [facility] (Lab) [address] [place], [address], 11/28/2020 15:27:41 11/29/19 21 11/28/2020 CBC/C OMPLE TE BLD COUNT W/DIF F eosinophils, absolute count 0.09 x10'3 /uL 0.02-0 .53 Not Available [facility] (Lab) [address] [place], [address], 11/28/2020 15:27:41 11/29/19 21 11/28/2020 CBC/C OMPLE TE BLD COUNT W/DIF F basophils, absolute count 0.03 x10'3 /uL 0.01-0 .08 Not Available [facility] (Lab) [address] [place], [address], 11/28/2020 15:27:41 11/29/19 21 11/28/2020 CBC/C OMPLE TE BLD COUNT W/DIF F immature granulocytes ,absolute 0.01 x10'3 /uL 0.00-0 .05 Not Available [facility] (Lab) [address] [place], [address], 11/28/2020 15:27:41 11/29/19 21 11/28/2020 CBC/C OMPLE TE BLD COUNT W/DIF F nucleated red blood cells 0.0 % -0 Not Available [facility] (Lab) [address] [place], [address], 11/28/2020 15:27:41 11/29/19 21 11/28/2020 CBC/C OMPLE TE BLD COUNT W/DIF F NRBC# 0.00 x10'3 /uL Not Available [facility] (Lab) [address] [place], [address], 11/28/2020 15:27:41 05/20/20 21 05/20/2021 URINE MICRO SCOPI C EXAM/ IRIS white blood cells 0-8 /i??h pfi?? 0-8 Not Available [facility] (Lab) [address] [place], [address], 05/20/2021 11:34:12 05/20/20 21 05/20/2021 URINE MICRO SCOPI C EXAM/ IRIS red blood cells 0-4 /i??h pfi?? 0-4 Not Available [facility] (Lab) [address] [place], [address], 05/20/2021 11:34:12 05/20/20 21 05/20/2021 URINE MICRO SCOPI C EXAM/ IRIS bacteria none Not Available [facility] (Lab) [address] [place], [address], 05/20/2021 11:34:12 05/20/20 21 05/20/2021 URINE MICRO SCOPI C EXAM/ IRIS mucous occasi onal /i??l pfi?? abnormal Not Available [facility] (Lab) [address] [place], [address], 05/20/2021 11:34:12 05/20/20 21 05/20/2021 URINE MICRO SCOPI C EXAM/ IRIS squamous epithelial occasi onal /i??l pfi?? abnormal Not Available [facility] (Lab) [address] [place], [address], 05/20/2021 11:34:12 05/20/20 21 05/20/2021 URINE MICRO SCOPI C EXAM/ IRIS hyaline cast occasi onal /i??l pfi?? none seen- abnormal Not Available [facility] (Lab) [address] [place], [address], 05/20/2021 11:34:12 05/29/19 22 05/29/2021 PSA SCREE N PSA medicare screen 4.79 NG/mL 0.00-4 .00 high Not Available [facility] (Lab) [address] [place], [address], 05/29/2021 15:49:03 05/29/19 22 05/29/2021 HEMOG LOBIN A1C HA1C 6.1 % 4.0-6. 0 high Diabe khalida Scree gisela Crite korey: <5.7% Consi stent with absen ce of diabe khalida 5.7-6 .4% Consi stent with incre ased risk for diabe khalida (pred iabet es) >OR=6 .5% Consi stent with diabe khalida REFER ENCE: Diabe khalida Care 2016, 39(Ramires ppl.1 ):s13 -s22 Not Available [facility] (Lab) [address] [place], [address], 05/29/2021 15:32:10 05/29/19 22 05/29/2021 LIPID PANEL cholesterol 157 mg/dL 140-19 9 NIH ARTEMIO NSUS RECOM MENDA TION FOR ROSEY STERO L: ADULT CHILD LOW RISK: <200 <170 BORDE RLINE : <200- 239 ----- HIGH RISK: >240 >200 Not Available [facility] (Lab) [address] [place], [address], 05/29/2021 15:04:24 05/29/19 22 05/29/2021 LIPID PANEL triglyceride s 163 mg/dL 0-150 high NIH ARTEMIO NSUS REPOR T RECOM MENDA TION FOR TRIGL YCERI DEA: ADULT CHILD LOW RISK: <150 ----- BODER LINE: 150-1 99 ----- HIGH RISK: >200 ----- Not Available [facility] (Lab) [address] [place], [address], 05/29/2021 15:04:24 05/29/19 22 05/29/2021 LIPID PANEL HDL cholesterol 29 mg/dL 40- low Not Available [facility] (Lab) [address] [place], [address], 05/29/2021 15:04:24 05/29/19 22 05/29/2021 LIPID PANEL LDL cholesterol, calculated 95 mg/dL 0-130 NIH ARTEMIO NSUS REPOR T RECOM MENDA TIONS FOR LDL: ADULT CHILD LOW RISK <130 <110 (OPTI MAL LDL) <100 ----- BORDE RLINE : 130-1 59 ----- HIGH RISK: >160 >130 A TRIGL YCERI DE RESUL T >400 INVAL IDATE S THE CALCU LATIO N FOR LDL FRACT IONAT ION - THE LDL RESUL T WILL NOT BE REPOR ARTEMIO. Not Available [facility] (Lab) [address] [place], [address], 05/29/2021 15:04:24 05/29/19 22 05/29/2021 COMPR EHENS KATTY METAB OLIC PANEL carbon dioxide 29 mmol/ L 22-30 Not Available [facility] (Lab) [address] [place], [address], 05/29/2021 15:04:16 05/29/19 22 05/29/2021 COMPR EHENS KATTY METAB OLIC PANEL sodium 140 mmol/ L 137-14 5 Not Available [facility] (Lab) [address] [place], [address], 05/29/2021 15:04:16 05/29/19 22 05/29/2021 COMPR EHENS KATTY METAB OLIC PANEL potassium 5.9 mmol/ L 3.5-5. 1 high Not Available [facility] (Lab) [address] [place], [address], 05/29/2021 15:04:16 05/29/19 22 05/29/2021 COMPR EHENS KATTY METAB OLIC PANEL chloride 106 mmol/ L 98-107 Not Available [facility] (Lab) [address] [place], [address], 05/29/2021 15:04:16 05/29/19 22 05/29/2021 COMPR EHENS KATTY METAB OLIC PANEL agap 10.9 mmol/ L 14-22 low Not Available [facility] (Lab) [address] [place], [address], 05/29/2021 15:04:16 05/29/19 22 05/29/2021 COMPR EHENS KATTY METAB OLIC PANEL glucose 89 mg/dL 70-99 Not Available [facility] (Lab) [address] [place], [address], 05/29/2021 15:04:16 05/29/19 22 05/29/2021 COMPR EHENS KATTY METAB OLIC PANEL BUN 29 mg/dL 8-19 high Not Available [facility] (Lab) [address] [place], [address], 05/29/2021 15:04:16 05/29/19 22 05/29/2021 COMPR EHENS KATTY METAB OLIC PANEL creatinine 1.80 mg/dL 0.66-1 .25 high Not Available [facility] (Lab) [address] [place], [address], 05/29/2021 15:04:16 05/29/19 22 05/29/2021 COMPR EHENS KATTY METAB OLIC PANEL GFR 36 Refer ence Range : [place] ge GFR Healt hy Adult : >60 mL/mi n/1.7 3 m2 Chron ic Kidne y Disea se: 15-60 mL/mi n/1.7 3 m2 Kidne y Failu re: <15/m L/min /1.73 m2 www.n iddk. nih.g ov The MDRD study equat ion has not been valid ated in child kelli <18 years of age; pregn ant women ; the elder ly >85 years of age; or in some racia l or ethni c subgr oups, such as [facility] nics. Outsi de the valid ated myles eters , estim ated GFR is less accur ate, requi ring clini jailyn judgm ent on a case- by-ca se basis . Clini jailyn inter preta tion for other races and ages must be made by the clini sara. The MDRD study equat ion has not been valid ated for the evalu ation of serum creat inine relat ed to nutri rick l statu s or medic ation usage . For perso ns <18 years of age, a pedia tric GFR calcu lator is avail able on the [facility] websi te: https ://belkys w.kid janay.o rg/pr ofess ional s/kdo qi/gf r_cal culat or Not Available [facility] (Lab) [address] [place], [address], 05/29/2021 15:04:16 05/29/19 22 05/29/2021 COMPR EHENS KATTY METAB OLIC PANEL alkaline phosphatase 68 U/L 38-126 Not Available [facility] (Lab) [address] [place], [address], 05/29/2021 15:04:16 05/29/19 22 05/29/2021 COMPR EHENS KATTY METAB OLIC PANEL alanine aminotransfe rase 25 U/L 0-50 Not Available [facility] (Lab) [address] [place], [address], 05/29/2021 15:04:16 05/29/19 22 05/29/2021 COMPR EHENS KATTY METAB OLIC PANEL aspartate aminotransfe rase 48 U/L 15-46 high Not Available [facility] (Lab) [address] [place], [address], 05/29/2021 15:04:16 05/29/19 22 05/29/2021 COMPR EHENS KATTY METAB OLIC PANEL bilirubin, total 0.90 mg/dL 0.20-1 .30 Not Available [facility] (Lab) [address] [place], [address], 05/29/2021 15:04:16 05/29/19 22 05/29/2021 COMPR EHENS KATTY METAB OLIC PANEL calcium 9.1 mg/dL 8.4-10 .2 Not Available [facility] (Lab) [address] [place], [address], 05/29/2021 15:04:16 05/29/19 22 05/29/2021 COMPR EHENS KATTY METAB OLIC PANEL total protein 7.1 g/dL 6.3-8. 2 Not Available [facility] (Lab) [address] [place], [address], 05/29/2021 15:04:16 05/29/19 22 05/29/2021 COMPR EHENS KATTY METAB OLIC PANEL albumin 4.2 g/dL 3.0-4. 4 Not Available [facility] (Lab) [address] [place], [address], 05/29/2021 15:04:16 05/29/19 22 05/29/2021 COMPR EHENS KATTY METAB OLIC PANEL globulin 2.9 g/dL 2.6-4. 2 Not Available [facility] (Lab) [address] [place], [address], 05/29/2021 15:04:16 05/29/19 22 05/29/2021 COMPR EHENS KATTY METAB OLIC PANEL A/G ratio 1.4 ratio 1.0-2. 0 Not Available [facility] (Lab) [address] [place], [address], 05/29/2021 15:04:16 05/29/19 22 05/29/2021 CBC/C OMPLE TE BLD COUNT W/DIF F hematocrit 54.8 % 39.3-5 0.0 high Not Available [facility] (Lab) [address] [place], [address], 05/29/2021 14:29:30 05/29/19 22 05/29/2021 CBC/C OMPLE TE BLD COUNT W/DIF F white blood cells 4.4 x10'3 /uL 4.2-10 .8 Not Available [facility] (Lab) [address] [place], [address], 05/29/2021 14:29:30 05/29/19 22 05/29/2021 CBC/C OMPLE TE BLD COUNT W/DIF F red blood cells 5.53 x10'6 /uL 4.10-5 .80 Not Available [facility] (Lab) [address] [place], [address], 05/29/2021 14:29:30 05/29/19 22 05/29/2021 CBC/C OMPLE TE BLD COUNT W/DIF F hemoglobin 17.5 g/dL 13.2-1 7.0 high Not Available [facility] (Lab) [address] [place], [address], 05/29/2021 14:29:30 05/29/19 22 05/29/2021 CBC/C OMPLE TE BLD COUNT W/DIF F mean red cell volume 99.1 fL 80.0-9 7.0 high Not Available [facility] (Lab) [address] [place], [address], 05/29/2021 14:29:30 05/29/19 22 05/29/2021 CBC/C OMPLE TE BLD COUNT W/DIF F platelets 132 x10'3 /uL 150-40 0 low Not Available [facility] (Lab) [address] [place], [address], 05/29/2021 14:29:30 05/29/19 22 05/29/2021 CBC/C OMPLE TE BLD COUNT W/DIF F mean red cell hemoglobin 31.6 pg 27.0-3 3.0 Not Available [facility] (Lab) [address] [place], [address], 05/29/2021 14:29:30 05/29/19 22 05/29/2021 CBC/C OMPLE TE BLD COUNT W/DIF F mean RBC HGB concentratio n 31.9 g/dL 31.0-3 6.0 Not Available [facility] (Lab) [address] [place], [address], 05/29/2021 14:29:30 05/29/19 22 05/29/2021 CBC/C OMPLE TE BLD COUNT W/DIF F red cell distribution width 13.9 % 11.8-1 5.5 Not Available [facility] (Lab) [address] [place], [address], 05/29/2021 14:29:30 05/29/19 22 05/29/2021 CBC/C OMPLE TE BLD COUNT W/DIF F mean platelet volume 11.0 fL 9.0-12 .4 Not Available [facility] (Lab) [address] [place], [address], 05/29/2021 14:29:30 05/29/19 22 05/29/2021 CBC/C OMPLE TE BLD COUNT W/DIF F neutrophils 64.9 % 39.0-7 2.0 Not Available [facility] (Lab) [address] [place], [address], 05/29/2021 14:29:30 05/29/19 22 05/29/2021 CBC/C OMPLE TE BLD COUNT W/DIF F lymphocytes 21.6 % 16.0-4 7.0 Not Available [facility] (Lab) [address] [place], [address], 05/29/2021 14:29:30 05/29/19 22 05/29/2021 CBC/C OMPLE TE BLD COUNT W/DIF F monocytes 10.1 % 5.0-12 .0 Not Available [facility] (Lab) [address] [place], [address], 05/29/2021 14:29:30 05/29/19 22 05/29/2021 CBC/C OMPLE TE BLD COUNT W/DIF F eosinophils 2.5 % 1.0-7. 0 Not Available [facility] (Lab) [address] [place], [address], 05/29/2021 14:29:30 05/29/19 22 05/29/2021 CBC/C OMPLE TE BLD COUNT W/DIF F basophils 0.7 % 0.0-2. 0 Not Available [facility] (Lab) [address] [place], [address], 05/29/2021 14:29:30 05/29/19 22 05/29/2021 CBC/C OMPLE TE BLD COUNT W/DIF F immature granulocytes 0.2 % 0.00-0 .50 Not Available [facility] (Lab) [address] [place], [address], 05/29/2021 14:29:30 05/29/19 22 05/29/2021 CBC/C OMPLE TE BLD COUNT W/DIF F neutrophils, absolute count 2.83 x10'3 /uL 1.5-8. 0 Not Available [facility] (Lab) [address] [place], [address], 05/29/2021 14:29:30 05/29/19 22 05/29/2021 CBC/C OMPLE TE BLD COUNT W/DIF F lymphocytes, absolute count 0.94 x10'3 /uL 1.07-3 .43 low Not Available [facility] (Lab) [address] [place], [address], 05/29/2021 14:29:30 05/29/19 22 05/29/2021 CBC/C OMPLE TE BLD COUNT W/DIF F monocytes, absolute count 0.44 x10'3 /uL 0.29-0 .99 Not Available [facility] (Lab) [address] [place], [address], 05/29/2021 14:29:30 05/29/19 22 05/29/2021 CBC/C OMPLE TE BLD COUNT W/DIF F eosinophils, absolute count 0.11 x10'3 /uL 0.02-0 .53 Not Available [facility] (Lab) [address] [place], [address], 05/29/2021 14:29:30 05/29/19 22 05/29/2021 CBC/C OMPLE TE BLD COUNT W/DIF F basophils, absolute count 0.03 x10'3 /uL 0.01-0 .08 Not Available [facility] (Lab) [address] [place], [address], 05/29/2021 14:29:30 05/29/19 22 05/29/2021 CBC/C OMPLE TE BLD COUNT W/DIF F immature granulocytes ,absolute 0.01 x10'3 /uL 0.00-0 .05 Not Available [facility] (Lab) [address] [place], [address], 05/29/2021 14:29:30 05/29/19 22 05/29/2021 CBC/C OMPLE TE BLD COUNT W/DIF F nucleated red blood cells 0.0 % -0 Not Available [facility] (Lab) [address] [place], [address], 05/29/2021 14:29:30 05/29/19 22 05/29/2021 CBC/C OMPLE TE BLD COUNT W/DIF F NRBC# 0.00 x10'3 /uL Not Available [facility] (Lab) [address] [place], [address], 05/29/2021 14:29:30 11/28/19 22 11/27/2021 COMPR EHENS KATTY METAB OLIC PANEL sodium 140 mmol/ L 137-14 5 Not Available [facility] (Lab) [address] [place], [address], 11/27/2021 14:25:48 11/28/19 22 11/27/2021 COMPR EHENS KATTY METAB OLIC PANEL potassium 5.0 mmol/ L 3.5-5. 1 Not Available [facility] (Lab) [address] [place], [address], 11/27/2021 14:25:48 11/28/19 22 11/27/2021 COMPR EHENS KATTY METAB OLIC PANEL chloride 105 mmol/ L 98-107 Not Available [facility] (Lab) [address] [place], [address], 11/27/2021 14:25:48 11/28/19 22 11/27/2021 COMPR EHENS KATTY METAB OLIC PANEL carbon dioxide 27 mmol/ L 22-30 Not Available [facility] (Lab) [address] [place], [address], 11/27/2021 14:25:48 11/28/19 22 11/27/2021 COMPR EHENS KATTY METAB OLIC PANEL anion gap 13.0 mmol/ L 14-22 low Not Available [facility] (Lab) [address] [place], [address], 11/27/2021 14:25:48 11/28/19 22 11/27/2021 COMPR EHENS KATTY METAB OLIC PANEL glucose 103 mg/dL 70-99 high Not Available [facility] (Lab) [address] [place], [address], 11/27/2021 14:25:48 11/28/19 22 11/27/2021 COMPR EHENS KATTY METAB OLIC PANEL BUN 36 mg/dL 8-19 high Not Available [facility] (Lab) [address] [place], [address], 11/27/2021 14:25:48 11/28/19 22 11/27/2021 COMPR EHENS KATTY METAB OLIC PANEL creatinine 1.89 mg/dL 0.66-1 .25 high Not Available [facility] (Lab) [address] [place], [address], 11/27/2021 14:25:48 11/28/19 22 11/27/2021 COMPR EHENS KATTY METAB OLIC PANEL aspartate aminotransfe rase 41 U/L 15-46 Not Available [facility] (Lab) [address] [place], [address], 11/27/2021 14:25:48 11/28/19 22 11/27/2021 COMPR EHENS KATTY METAB OLIC PANEL GFR 34 Refer ence Range : [place] ge GFR Healt hy Adult : >60 mL/mi n/1.7 3 m2 Chron ic Kidne y Disea se: 15-60 mL/mi n/1.7 3 m2 Kidne y Failu re: <15/m L/min /1.73 m2 www.n iddk. nih.g ov The MDRD study equat ion has not been valid ated in child kelli <18 years of age; pregn ant women ; the elder ly >85 years of age; or in some racia l or ethni c subgr oups, such as Hisyahaira nics. Outsi de the valid ated myles eters , estim ated GFR is less accur ate, requi ring clini jailyn judgm ent on a case- by-ca se basis . Clini jailyn inter preta tion for other races and ages must be made by the clini sara. The MDRD study equat ion has not been valid ated for the evalu ation of serum creat inine relat ed to nutri rick l statu s or medic ation usage . For perso ns <18 years of age, a pedia tric GFR calcu lator is avail able on the [facility] websi te: https ://belkys gray.alia gustafson.o rg/pr ofess ional s/kdo qi/gf r_cal culat or Not Available [facility] (Lab) [address] [place], [address], 11/27/2021 14:25:48 11/28/19 22 11/27/2021 COMPR EHENS KATTY METAB OLIC PANEL alkaline phosphatase 63 U/L 38-126 Not Available [facility] (Lab) [address] [place], [address], 11/27/2021 14:25:48 11/28/19 22 11/27/2021 COMPR EHENS KATTY METAB OLIC PANEL alanine aminotransfe rase 21 U/L 0-50 Not Available [facility] (Lab) [address] [place], [address], 11/27/2021 14:25:48 11/28/19 22 11/27/2021 COMPR EHENS KATTY METAB OLIC PANEL bilirubin, total 1.00 mg/dL 0.20-1 .30 Not Available [facility] (Lab) [address] [place], [address], 11/27/2021 14:25:48 11/28/19 22 11/27/2021 COMPR EHENS KATTY METAB OLIC PANEL calcium 9.7 mg/dL 8.4-10 .2 Not Available [facility] (Lab) [address] [place], [address], 11/27/2021 14:25:48 11/28/19 22 11/27/2021 COMPR EHENS KATTY METAB OLIC PANEL total protein 7.1 g/dL 6.3-8. 2 Not Available [facility] (Lab) [address] [place], [address], 11/27/2021 14:25:48 11/28/19 22 11/27/2021 COMPR EHENS KATTY METAB OLIC PANEL albumin 4.3 g/dL 3.0-4. 4 Not Available [facility] (Lab) [address] [place], [address], 11/27/2021 14:25:48 11/28/19 22 11/27/2021 COMPR EHENS KATTY METAB OLIC PANEL globulin 2.8 g/dL 2.6-4. 2 Not Available [facility] (Lab) [address] [place], [address], 11/27/2021 14:25:48 11/28/19 22 11/27/2021 COMPR EHENS KATTY METAB OLIC PANEL A/G ratio 1.5 ratio 1.0-2. 0 Not Available [facility] (Lab) [address] [place], [address], 11/27/2021 14:25:48 11/28/19 22 11/27/2021 LIPID PANEL HDL cholesterol 24 mg/dL 40- low Not Available [facility] (Lab) [address] [place], [address], 11/27/2021 14:25:38 11/28/19 22 11/27/2021 LIPID PANEL cholesterol 152 mg/dL 140-19 9 NIH ARTEMIO NSUS RECOM MENDA TION FOR ROSEY STERO L: ADULT CHILD LOW RISK: <200 <170 BORDE RLINE : <200- 239 ----- HIGH RISK: >240 >200 Not Available [facility] (Lab) [address] [place], [address], 11/27/2021 14:25:38 11/28/19 22 11/27/2021 LIPID PANEL triglyceride s 222 mg/dL 0-150 high NIH ARTEMIO NSUS REPOR T RECOM MENDA TION FOR TRIGL YCERI DEA: ADULT CHILD LOW RISK: <150 ----- BODER LINE: 150-1 99 ----- HIGH RISK: >200 ----- Not Available [facility] (Lab) [address] [place], [address], 11/27/2021 14:25:38 11/28/19 22 11/27/2021 LIPID PANEL LDL cholesterol, calculated 84 mg/dL 0-130 NIH ARTEMIO NSUS REPOR T RECOM MENDA TIONS FOR LDL: ADULT CHILD LOW RISK <130 <110 (OPTI MAL LDL) <100 ----- BORDE RLINE : 130-1 59 ----- HIGH RISK: >160 >130 A TRIGL YCERI DE RESUL T >400 INVAL IDATE S THE CALCU LATIO N FOR LDL FRACT IONAT ION - THE LDL RESUL T WILL NOT BE REPOR ARTEMIO. Not Available [facility] (Lab) [address] [place], [address], 11/27/2021 14:25:38 11/28/19 22 11/27/2021 CBC/C OMPLE TE BLD COUNT W/DIF F hematocrit 49.8 % 39.3-5 0.0 Not Available [facility] (Lab) [address] [place], [address], 11/27/2021 12:51:18 11/28/19 22 11/27/2021 CBC/C OMPLE TE BLD COUNT W/DIF F white blood cells 4.2 x10'3 /uL 4.2-10 .8 Not Available [facility] (Lab) [address] [place], [address], 11/27/2021 12:51:18 11/28/19 22 11/27/2021 CBC/C OMPLE TE BLD COUNT W/DIF F red blood cells 5.06 x10'6 /uL 4.10-5 .80 Not Available [facility] (Lab) [address] [place], [address], 11/27/2021 12:51:18 11/28/19 22 11/27/2021 CBC/C OMPLE TE BLD COUNT W/DIF F hemoglobin 16.0 g/dL 13.2-1 7.0 Not Available [facility] (Lab) [address] [place], [address], 11/27/2021 12:51:18 11/28/19 22 11/27/2021 CBC/C OMPLE TE BLD COUNT W/DIF F mean red cell volume 98.4 fL 80.0-9 7.0 high Not Available [facility] (Lab) [address] [place], [address], 11/27/2021 12:51:18 11/28/19 22 11/27/2021 CBC/C OMPLE TE BLD COUNT W/DIF F mean red cell hemoglobin 31.6 pg 27.0-3 3.0 Not Available [facility] (Lab) [address] [place], [address], 11/27/2021 12:51:18 11/28/19 22 11/27/2021 CBC/C OMPLE TE BLD COUNT W/DIF F mean RBC HGB concentratio n 32.1 g/dL 31.0-3 6.0 Not Available [facility] (Lab) [address] [place], [address], 11/27/2021 12:51:18 11/28/19 22 11/27/2021 CBC/C OMPLE TE BLD COUNT W/DIF F red cell distribution width 14.1 % 11.8-1 5.5 Not Available [facility] (Lab) [address] [place], [address], 11/27/2021 12:51:18 11/28/19 22 11/27/2021 CBC/C OMPLE TE BLD COUNT W/DIF F platelets 143 x10'3 /uL 150-40 0 low Not Available [facility] (Lab) [address] [place], [address], 11/27/2021 12:51:18 11/28/19 22 11/27/2021 CBC/C OMPLE TE BLD COUNT W/DIF F mean platelet volume 11.0 fL 9.0-12 .4 Not Available [facility] (Lab) [address] [place], [address], 11/27/2021 12:51:18 11/28/19 22 11/27/2021 CBC/C OMPLE TE BLD COUNT W/DIF F neutrophils 64.0 % 39.0-7 2.0 Not Available [facility] (Lab) [address] [place], [address], 11/27/2021 12:51:18 11/28/19 22 11/27/2021 CBC/C OMPLE TE BLD COUNT W/DIF F lymphocytes 21.0 % 16.0-4 7.0 Not Available [facility] (Lab) [address] [place], [address], 11/27/2021 12:51:18 11/28/19 22 11/27/2021 CBC/C OMPLE TE BLD COUNT W/DIF F monocytes 11.3 % 5.0-12 .0 Not Available [facility] (Lab) [address] [place], [address], 11/27/2021 12:51:18 11/28/19 22 11/27/2021 CBC/C OMPLE TE BLD COUNT W/DIF F eosinophils 2.8 % 1.0-7. 0 Not Available [facility] (Lab) [address] [place], [address], 11/27/2021 12:51:18 11/28/19 22 11/27/2021 CBC/C OMPLE TE BLD COUNT W/DIF F basophils 0.7 % 0.0-2. 0 Not Available [facility] (Lab) [address] [place], [address], 11/27/2021 12:51:18 11/28/19 22 11/27/2021 CBC/C OMPLE TE BLD COUNT W/DIF F immature granulocytes 0.2 % 0.00-0 .50 Not Available [facility] (Lab) [address] [place], [address], 11/27/2021 12:51:18 11/28/19 22 11/27/2021 CBC/C OMPLE TE BLD COUNT W/DIF F neutrophils, absolute count 2.70 x10'3 /uL 1.5-8. 0 Not Available [facility] (Lab) [address] [place], [address], 11/27/2021 12:51:18 11/28/19 22 11/27/2021 CBC/C OMPLE TE BLD COUNT W/DIF F lymphocytes, absolute count 0.89 x10'3 /uL 1.07-3 .43 low Not Available [facility] (Lab) [address] [place], [address], 11/27/2021 12:51:18 11/28/19 22 11/27/2021 CBC/C OMPLE TE BLD COUNT W/DIF F monocytes, absolute count 0.48 x10'3 /uL 0.29-0 .99 Not Available [facility] (Lab) [address] [place], [address], 11/27/2021 12:51:18 11/28/19 22 11/27/2021 CBC/C OMPLE TE BLD COUNT W/DIF F eosinophils, absolute count 0.12 x10'3 /uL 0.02-0 .53 Not Available [facility] (Lab) [address] [place], [address], 11/27/2021 12:51:18 11/28/19 22 11/27/2021 CBC/C OMPLE TE BLD COUNT W/DIF F basophils, absolute count 0.03 x10'3 /uL 0.01-0 .08 Not Available [facility] (Lab) [address] [place], [address], 11/27/2021 12:51:18 11/28/19 22 11/27/2021 CBC/C OMPLE TE BLD COUNT W/DIF F immature granulocytes ,absolute 0.01 x10'3 /uL 0.00-0 .05 Not Available [facility] (Lab) [address] [place], [address], 11/27/2021 12:51:18 11/28/19 22 11/27/2021 CBC/C OMPLE TE BLD COUNT W/DIF F nucleated red blood cells 0.0 % -0 Not Available [facility] (Lab) [address] [place], [address], 11/27/2021 12:51:18 11/28/19 22 11/27/2021 CBC/C OMPLE TE BLD COUNT W/DIF F NRBC# 0.00 x10'3 /uL Not Available [facility] (Lab) [address] [place], [address], 11/27/2021 12:51:18 12/04/19 23 12/03/2022 LIPID PANEL cholesterol 114 mg/dL 140-19 9 low NIH ARTEMIO NSUS RECOM MENDA TION FOR ROSEY STERO L: ADULT CHILD LOW RISK: <200 <170 BORDE RLINE : <200- 239 ----- HIGH RISK: >240 >200 Not Available [facility] (Lab) [address] [place], [address], 12/03/2022 12:46:38 12/04/19 23 12/03/2022 LIPID PANEL triglyceride s 186 mg/dL 0-150 high NIH ARTEMIO NSUS REPOR T RECOM MENDA TION FOR TRIGL YCERI DEA: ADULT CHILD LOW RISK: <150 ----- BODER LINE: 150-1 99 ----- HIGH RISK: >200 ----- Not Available [facility] (Lab) [address] [place], [address], 12/03/2022 12:46:38 12/04/19 23 12/03/2022 LIPID PANEL HDL cholesterol 17 mg/dL 40- low Not Available [facility] (Lab) [address] [place], [address], 12/03/2022 12:46:38 12/04/19 23 12/03/2022 LIPID PANEL LDL cholesterol, calculated 60 mg/dL 0-130 NIH ARTEMIO NSUS REPOR T RECOM MENDA TIONS FOR LDL: ADULT CHILD LOW RISK <130 <110 (OPTI MAL LDL) <100 ----- BORDE RLINE : 130-1 59 ----- HIGH RISK: >160 >130 A TRIGL YCERI DE RESUL T >400 INVAL IDATE S THE CALCU LATIO N FOR LDL FRACT IONAT ION - THE LDL RESUL T WILL NOT BE REPOR ARTEMIO. Not Available [facility] (Lab) [address] [place], [address], 12/03/2022 12:46:38 12/04/19 23 12/03/2022 T3 FREE free T3 3.8 pg/mL 2.77-5 .27 Not Available [facility] (Lab) [address] [place], [address], 12/03/2022 12:50:32 07/12/20 23 12/03/2022 T4 FREE free T4 1.63 NG/dL 0.78-2 .19 Not Available [facility] (Lab) [address] [place], [address], 12/03/2022 12:50:34 12/04/19 23 12/03/2022 TSH thyroid-stim ulating hormone 4.560 uIU/m L 0.465- 4.680 Not Available [facility] (Lab) [address] [place], [address], 12/03/2022 13:12:51 02/06/2002/05/2023 URINA LYSIS /IRIS W/O MICRO color YELLOW Not Available [facility] (Lab) [address] [place], [address], 02/05/2023 18:02:18 02/06/2002/05/2023 URINA LYSIS /IRIS W/O MICRO appear TURBID abnormal Not Available [facility] (Lab) [address] [place], [address], 02/05/2023 18:02:18 02/06/20 23 02/05/2023 URINA LYSIS /IRIS W/O MICRO specific gravity 1.013 1.001- 1.030 Not Available [facility] (Lab) [address] [place], [address], 02/05/2023 18:02:18 02/06/2002/05/2023 URINA LYSIS /IRIS W/O MICRO pH 5.0 pH_un its 5.0-9. 0 Not Available [facility] (Lab) [address] [place], [address], 02/05/2023 18:02:18 02/06/20 23 02/05/2023 URINA LYSIS /IRIS W/O MICRO leukocytes NEGATI VE jessica/u L negati ve- Not Available [facility] (Lab) [address] [place], [address], 02/05/2023 18:02:18 02/06/20 23 02/05/2023 URINA LYSIS /IRIS W/O MICRO nitrite NEGATI VE negati ve- Not Available [facility] (Lab) [address] [place], [address], 02/05/2023 18:02:18 02/06/20 23 02/05/2023 URINA LYSIS /IRIS W/O MICRO protein 10 mg/dL negati ve- abnormal Not Available [facility] (Lab) [address] [place], [address], 02/05/2023 18:02:18 02/06/20 23 02/05/2023 URINA LYSIS /IRIS W/O MICRO glucose NORMAL mg/dL normal - Not Available [facility] (Lab) [address] [place], [address], 02/05/2023 18:02:18 02/06/20 23 02/05/2023 URINA LYSIS /IRIS W/O MICRO ketones NEGATI VE mg/dL negati ve- Not Available [facility] (Lab) [address] [place], [address], 02/05/2023 18:02:18 02/06/20 23 02/05/2023 URINA LYSIS /IRIS W/O MICRO urobilinogen NORMAL mg/dL normal - Not Available [facility] (Lab) [address] [place], [address], 02/05/2023 18:02:18 02/06/20 23 02/05/2023 URINA LYSIS /IRIS W/O MICRO bilirubin NEGATI VE mg/dL negati ve- Not Available [facility] (Lab) [address] [place], [address], 02/05/2023 18:02:18 02/06/20 23 02/05/2023 URINA LYSIS /IRIS W/O MICRO blood NEGATI VE mg/dL negati ve- Not Available [facility] (Lab) [address] [place], [address], 02/05/2023 18:02:18 02/06/20 23 02/05/2023 URINA LYSIS /IRIS W/O MICRO white blood cells 0-8 /i??h pfi?? 0-8 Not Available [facility] (Lab) [address] [place], [address], 02/05/2023 18:02:18 02/06/20 23 02/05/2023 URINA LYSIS /IRIS W/O MICRO red blood cells 0-4 /i??h pfi?? 0-4 Not Available [facility] (Lab) [address] [place], [address], 02/05/2023 18:02:18 02/06/20 23 02/05/2023 URINA LYSIS /IRIS W/O MICRO bacteria NONE Not Available [facility] (Lab) [address] [place], [address], 02/05/2023 18:02:18 02/06/20 23 02/05/2023 URINA LYSIS /IRIS W/O MICRO mucous OCCASI ONAL /i??l pfi?? abnormal Not Available [facility] (Lab) [address] [place], [address], 02/05/2023 18:02:18 02/06/20 23 02/05/2023 URINA LYSIS /IRIS W/O MICRO squamous epithelial NONE /i??l pfi?? Not Available [facility] (Lab) [address] [place], [address], 02/05/2023 18:02:18 02/06/20 23 02/05/2023 URINA LYSIS /IRIS W/O MICRO hyaline cast MANY /i??l pfi?? none seen- abnormal Not Available [facility] (Lab) [address], [place], [address], 02/05/2023 18:02:18 11/21/19 21 11/20/2020 imagi ng/di agnos tic resul t No observ ation record ed. [id number] [facility] [address], [place], [address], 07/23/2022 01:31:46 08/03/19 22 08/02/2021 US, kidne y No observ ation record ed. [id number] [facility] [address], [place], [address], 07/23/2022 01:31:46 08/15/19 22 08/13/2021 CT, abdom en + pelvi s, w/ contr ast No observ ation record ed. [id number] [facility] Referral Fax Line [address], [place], [address], 07/23/2022 01:31:46 10/25/19 23 10/24/2022 US, namrata x, carot id arter y No observ ation record ed. [email or web address] [facility] [address], [place], [address], 11/26/2022 15:52:55 02/27/20 23 02/25/2023 US, renal No observ ation record ed. [email or web address] [facility] [address], [place], [address], 05/29/2023 21:21:51 05/29/19 24 05/29/2023 US, echoc ardio gram No observ ation record ed. [email or web address] [facility] [address], [place], [address], 05/29/2023 21:21:51 Result Notes None recorded. Problems Name Problem SNOMED Code Status Onset Date Resolution Date Notes Provider Name and Address Organization Details Recorded Time Irritable bowel syndrome 47510970 Active 2021 Not Available [facility] 3 13:24:52 Acute sinusitis 38614443 Active 2021 Not Available [facility] 3 13:24:52 Prostate specific antigen outside reference range 590138381 Active Not Available [facility] 3 13:24:52 Abdominal aortic aneurysm 944350182 Active Not Available [facility] 3 13:24:52 Gastroesophag eal reflux disease 759068793 Active Not Available [facility] 3 13:24:52 Dyspnea 735530864 Active Not Available [facility] 3 13:24:52 Pure hypercholeste rolemia 757846271 Active Not Available [facility] 3 13:24:52 Sinusitis 38195262 Active Not Available [facility] 3 13:24:52 Acute urinary tract infection 801494206 Active 2021 Not Available [facility] 3 13:24:52 Chronic kidney disease stage 3 447436535 Active Not Available [facility] 3 13:24:52 Anxiety 67869059 Active 2017 Not Available [facility] 3 13:24:52 Coronary arteriosclero sis 45996889 Active Not Available [facility] 3 13:24:52 Essential hypertension 53118265 Active Not Available [facility] 3 13:24:52 Disorder of skin and/or subcutaneous tissue 14792268 Active Not Available [facility] 3 13:24:52 Chronic rhinitis 37137197 Active Not Available [facility] 3 13:24:52 Problem Notes None recorded. Procedures Surgical History Date Name Laterality Status Provider Name and Address Organization Details Recorded Time 7 colonoscopy completed Not Available [facility] 07/24/19 23 00:59:49 Imaging Results None recorded. Procedure Notes None recorded. Medical Equipment None Reported. Allergies Allergen ID Allergen Name Allergen Category Reaction Reaction Severity Criticality Documentation Date Start Date Code Code System Note Provider Name and Address Organization Details Recorded Time 2546 tramadol medicatio n Not available Not available Not available 07/23/2022 42124 RxNorm Not Available [facility] 3 01:31:00 2547 morphine medicatio n Not available Not available Not available 07/23/2022 7052 RxNorm Not Available [facility] 3 01:31:00 2548 Lunesta medicatio n Not available Not available Not available 07/23/2022 69907 4 RxNorm Not Available [facility] 3 01:31:00 2549 acetamino phen / hydrocodo ne medicatio n Not available Not available Not available 07/23/2022 09501 2 RxNorm Not Available [facility] 3 01:31:00 Medications Name Sig Start Date Stop Date Status Note LastModified by Organization Details LastModified Time amoxicill in 500 mg capsule Take 1 capsule every 8 hours by oral route for 10 days. active Not Available Not Available No t Available furosemid e 40 mg tablet TK 1 T PO QD active Not Available Not Available No t Available Tikosyn 125 mcg capsule Take by oral route. 05/28 completed Not Available Not Available Not Available prednison e 10 mg tablet 3 tabs x 2 days, 2 tabs x 2 days 1 tab x 2 days active Not Available Not Available No t Available doxycycli ne hyclate 100 mg capsule Take 1 capsule twice a day by oral route for 7 days. 11/26 completed Not Available Not Available Not Available atorvasta tin 20 mg tablet Take 1 tablet every day by oral route. active Not Available Not Available No t Available trazodone 50 mg tablet 06/23 completed Not Available Not Available Not Available aspirin 325 mg tablet Take 1 tablet every day by oral route. 01/29 completed Not Available Not Available Not Available tizanidin e 4 mg tablet Take 1 tablet every day by oral route at bedtime. active Not Available Not Available No t Available amiodaron e 200 mg tablet TK 2 T PO QD FOR 1 WEEK THEN ONCE D AT NIGHT 05/28 completed Not Available Not Available Not Available atenolol 100 mg tablet Take 1 tablet every day by oral route. 11/02 completed Not Available Not Available Not Available cephalexi n 250 mg capsule 11/26 completed Not Available Not Available Not Available hydrocodo ne 5 mg-acetam inophen 325 mg tablet 10/02 completed Not Available Not Available Not Available lisinopri l 20 mg tablet TK 1 T PO QD. 06/15 completed Not Available Not Available Not Available methylpre dnisolone 32 mg tablet 11/27 completed Not Available Not Available Not Available prednison e 20 mg tablet Take 2 tablets every day by oral route for 7 days. active Not Available Not Available No t Available atenolol 25 mg tablet Take 1 tablet(s ) every day by oral route. 01/29 completed Not Available Not Available Not Available clobetaso l 0.05 % topical cream APPLY A THIN LAYER TO THE AFFECTED AREA(S) BY TOPICAL ROUTE 2 TIMES PER DAY 06/23 completed Called to [facility] pharmacy Not Available Not Available Not Available Zithromax Z-Keith 250 mg tablet Take 2 TABLEts the first day then 1/day 03/26 completed Not Available Not Available Not Available clindamyc in HCl 150 mg capsule 11/26 completed Not Available Not Available Not Available warfarin 2.5 mg tablet TK 1 T PO QD 05/28 completed Not Available Not Available Not Available penicilli n V potassium 500 mg tablet Take 1 tablet 3 times a day by oral route for 7 days. 09/17 completed Not Available Not Available Not Available ciproflox acin 250 mg tablet Take 1 tablet every day by oral route for 5 days. 05/29 completed Not Available Not Available Not Available valacyclo vir 500 mg tablet Take 1 tablet twice a day by oral route for 5 days. 06/15 completed Not Available Not Available Not Available ciproflox acin 500 mg tablet TK 2 TS PO QD FOR 7 DAYS 01/27 completed Not Available Not Available Not Available sulfameth oxazole 800 mg-trimet hoprim 160 mg tablet 11/27 completed Not Available Not Available Not Available spironola ctone 25 mg tablet TK 1 T PO QD 06/23 completed Not Available Not Available Not Available amoxicill in 500 mg tablet Take 1 tablet 3 times a day by oral route for 7 days. active Not Available Not Available No t Available simvastat in 40 mg tablet TAKE 1 TABLET BY MOUTH EVERY DAY 06/23 completed Not Available Not Available Not Available levothyro xine 25 mcg tablet TAKE 1 TABLET BY MOUTH EVERY DAY active Not Available Not Available No t Available oxycodone -acetamin ophen 5 mg-325 mg tablet TK 1 T PO Q 8 H PRN P 10/01 completed Not Available Not Available Not Available quinapril 10 mg tablet TAKE 1 TABLET BY MOUTH EVERY DAY 10/02 completed Not Available Not Available Not Available alprazola m 0.25 mg tablet TAKE 1 TABLET BY MOUTH 3 TIMES A DAY NEEDED 10/01 completed Not Available Not Available Not Available magnesium oxide 400 mg (241.3 mg magnesium ) tablet TK 1 T PO BID active Not Available Not Available No t Available Nitrostat 0.4 mg sublingua l tablet 01/29 completed Not Available Not Available Not Available Prilosec 10 mg capsule,d elayed release Take 2 capsules every day by oral route. 01/29 completed Not Available Not Available Not Available tamsulosi n 0.4 mg capsule TAKE 1 CAPSULE BY MOUTH DAILY 11/28 completed Not Available Not Available Not Available trazodone 100 mg tablet 11/26 completed Not Available Not Available Not Available ciproflox acin 0.3 % eye drops INT 1 GTT INTO OD QID 06/01 completed Not Available Not Available Not Available imiquimod 5 % topical cream packet 09/27 completed Not Available Not Available Not Available mexiletin e 150 mg capsule TK ONE C PO BID 11/06 completed Not Available Not Available Not Available cephalexi n 500 mg capsule TK 1 C PO Q 6 H active Not Available Not Available No t Available lisinopri l 10 mg tablet 06/15 completed Not Available Not Available Not Available warfarin 5 mg tablet TK 1 T PO ALTERNAT ING WITH 1/2 T . active Not Available Not Available No t Available niacin 500 mg tablet Take 1 tablet 3 times a day by oral route. 01/29 completed Not Available Not Available Not Available sertralin e 25 mg tablet active Not Available Not Available Not Available monteluka [facility] 10 mg tablet TAKE 1 TABLET BY MOUTH EVERY DAY 11/28 completed Not Available Not Available Not Available mexiletin e 200 mg capsule TK 1 C PO TID 05/28 completed Not Available Not Available Not Available clorazepa te dipotassi um 15 mg tablet TAKE 1/2 TABLET BY MOUTH TWICE DAILY 2023 active Not Available Not Available Not Avai lable lisinopri l 5 mg tablet Take 1 tablet every day by oral route for 90 days. active Not Available Not Available No t Available Viagra 100 mg tablet take 1 tablet 30mins before intercou rse no more then 1 in 24hrs 09/07 completed changed to Sildenaf il 20mg Not Available Not Available Not Available Nasonex 50 mcg/actua tion [place] 2 sprays every day by intranas al route. 12/07 completed Not Available Not Available Not Available cefuroxim e axetil 500 mg tablet Take 1 tablet every 12 hours by oral route for 14 days. active Not Available Not Available No t Available levofloxa ch[place] 500 mg tablet TK 1 T PO D FOR 10 DAYS 10/01 completed Not Available Not Available Not Available methylpre dnisolone 4 mg tablets in a dose pack use as instruct ed on package 09/17 completed Not Available Not Available Not Available ipratropi um bromide 42 mcg (0.06 %) nasal spray USE 1 SPRAY IN EACH NOSTRIL EVERY DAY active Not Available Not Available No t Available cefdinir 300 mg capsule Take 1 capsule twice a day by oral route for 7 days. active Not Available Not Available No t Available metronida zole 0.75 % topical gel 09/27 completed Not Available Not Available Not Available atenolol 50 mg tablet Take 1 tablet every day by oral route. active Not Available Not Available No t Available clorazepa te dipotassi um 7.5 mg tablet TAKE 1 TABLET BY MOUTH TWICE DAILY active Not Available Not Available No t Available amoxicill in 875 mg-potass ium clavulana te 125 mg tablet Take 1 tablet twice a day by oral route for 7 days. 01/24 completed Not Available Not Available Not Available Asprin Ec Low Dose 81 mg tablet,de layed release Take 1 tablet every day by oral route. 2015 active Not Available Not Available Not Avai lable Cialis 5 mg tablet TK 1 T PO D PRN active Not Available Not Available No t Available metoprolo l tartrate 25 mg tablet 10/02 completed Not Available Not Available Not Available nitrofura ntoin monohydra te/macroc rystals 100 mg capsule Take 1 capsule every 12 hours by oral route for 5 days. active Not Available Not Available No t Available sildenafi l (pulmonar y hypertens ion) 20 mg tablet TAKE 2 TABLETS BY MOUTH ONCE DAILY NEEDED FOR ERECTILE DYSFUNCT ION. TAKE 30 MINUTES BEFORE INTERCOU RSE. NO MORE THEN 2 IN 24 HOURS. 11/26 completed Not Available Not Available Not Available Fish Oil 10/20 completed Not Available Not Available Not Available folic acid 10/07 completed Not Available Not Available Not Available mexiletin e 05/28 completed Not Available Not Available Not Available multivita min 2016 active Not Available Not Available Not Avai lable fenofibra te nanocryst allized 145 mg tablet TAKE 1 TABLET BY MOUTH EVERY DAY 2023 active Not Available Not Available Not Avai lable Xyzal 5 mg tablet Take 1 tablet every day by oral route. 12/07 completed Not Available Not Available Not Available Suprep Bowel Prep Kit 17.5 gram-3.13 gram-1.6 gram oral solution TK UTD 06/01 completed Not Available Not Available Not Available niacin ER 1,000 mg tablet,ex tended release Take 1 tablet every day by oral route. 11/06 completed Not Available Not Available Not Available Eliquis 5 mg tablet 10/20 completed Not Available Not Available Not Available Flonase Allergy Relief 50 mcg/actua tion nasal spray,[place] 1 spray every day by intranas al route. 01/24 completed Not Available Not Available Not Available Fluzone High-Dose 7849-0698 (PF) 180 mcg/0.5 mL intramusc ular syringe ADM 0.5ML IM UTD 05/28 completed Not Available Not Available Not Available Vitals Date Recorded Body mass index (BMI) Body height Heart rate Body temperature Body weight Systolic blood pressure Diastolic blood pressure Provider Name and Address Organization Details Last Updated DateTime 3 31.4 kg/m2 174.625 cm 68 /min 97 [degF] 13221.9 9 g 130 mm[Hg] 72 mm[Hg] Not Available [facility] 3 01:09:12 Date Recorded Body mass index (BMI) Body height Heart rate Body temperature Body weight Systolic blood pressure Diastolic blood pressure Provider Name and Address Organization Details Last Updated DateTime 2 31.5 kg/m2 174.625 cm 70 /min 97.5 [degF] 33101.5 8 g 120 mm[Hg] 70 mm[Hg] Not Available [facility] 3 01:09:11 Date Recorded Body height Body weight Body temperature Heart rate Oxygen saturation Oxygen saturation in Arterial blood by Pulse oximetry Systolic blood pressure Diastolic blood pressure Provider Name and Address Organization Details Last Updated DateTime 3 174.63 cm 81562.2 1 g 98.1 [degF] 76 /min 96 % 96 % 124 mm[Hg] 70 mm[Hg] MAUREEN Lacey - [facility] [place] [employer] [facility] 3 11:30:17 Date Recorded Body mass index (BMI) Body height Heart rate Body temperature Body weight Systolic blood pressure Diastolic blood pressure Provider Name and Address Organization Details Last Updated DateTime 2 31.2 kg/m2 174.625 cm 70 /min 96.1 [degF] 08745.4 g 128 mm[Hg] 70 mm[Hg] Not Available [facility] 3 01:09:12 Date Recorded Body mass index (BMI) Body height Heart rate Body temperature Body weight Systolic blood pressure Diastolic blood pressure Provider Name and Address Organization Details Last Updated DateTime 1 31.8 kg/m2 174.625 cm 70 /min 97 [degF] 95116.7 7 g 120 mm[Hg] 60 mm[Hg] Not Available [facility] 3 01:09:11 Social History Question Answer Notes LastModified by Organization Details LastModified Time Tobacco Smoking Status Former Smoker Quit in 1996 Not Available [facility] 07/23/2022 00:56:18 Do You Have An Advance Directive? Yes [id number] Information not available 07/23/2022 Are You Blind Or Do You Have Difficulty Seeing? No MIGRATION.030 [id number] Information not available 07/23/2022 What Is Your Level Of Caffeine Consumption? Moderate MIGRATION.[id number] Information not available 07/23/2022 How Much Tobacco Do You Chew? None MIGRATION.030 [id number] Information not available 07/23/2022 In The 14 Days Before Symptom Onset, Have You Had Close Contact With A Laboratory-confi rmed COVID-19 While That Case Was Ill? No MIGRATION.0301 [id number] Information not available 07/23/2022 In The 14 Days Before Symptom Onset, Have You Had Close Contact With A Person Who Is Under Investigation For COVID-19 While That Person Was Ill? No MIGRATION.0301 [id number] Information not available 07/23/2022 Are You Deaf Or Do You Have Serious Difficulty Hearing? No MIGRATION.0301 165539 Information not available 07/23/2022 What Type Of Diet Are You Following? REGULAR MIGRATION.0301 [id number] Information not available 07/23/2022 Which Illicit Or Recreational Drugs Have You Used? None MIGRATION.030 222177 Information not available 07/23/2022 What Is The Highest Grade Or Level Of School You Have Completed Or The Highest Degree You Have Received? [id number] MIGRATION.030 [id number] Information not available 07/23/2022 Have There Been Any Changes To Your Family Or Social Situation? No MIGRATION.0301 600211 Information not available 07/23/2022 What Is The Fluoride Status Of Your Home? Fluoridated MIGRATION.0301 [id number] Information not available 07/23/2022 When Did You Quit Smoking? 16+yearssincelastci fiorella MIGRATION.030 205654 Information not available 07/23/2022 Are There Any Guns Present In Your Home? Yes MIGRATION.0301 343200 Information not available 07/23/2022 Do You Use Insect Repellent Routinely? No MIGRATION.0301 348837 Information not available 07/23/2022 Where Do You Live? SingleLevelHouse MIGRATION.0301 [id number] Information not available 07/23/2022 Do You Have A Medical Power Of Pasteurizing Supervisor? Yes MIGRATION.0301 [id number] Information not available 07/23/2022 What Was The Date Of Your Most Recent Tobacco Screening? 11/26/2022 [email or web address] Information not available 11/26/2022 Do You Have Any Pets? No MIGRATION.0301 [id number] Information not available 07/23/2022 What Is Your Relationship Status? MIGRATION.0301 [id number] Information not available 07/23/2022 Do You Use Your Seat Belt Or Car Seat Routinely? Yes MIGRATION.0301 189937 Information not available 07/23/2022 Do You Have Smoke And Carbon Monoxide Detectors In Your Home? Yes MIGRATION.0301 446300 Information not available 07/23/2022 Are You Passively Exposed To Smoke? No MIGRATION.0301 620021 Information not available 07/23/2022 Are There Any Smokers In Your House? No MIGRATION.0301 745349 Information not available 07/23/2022 How Much Tobacco Do You Smoke? No Was 1.5 Ppd MIGRATION.0301 599336 Information not available 07/23/2022 What Types Of Sporting Activities Do You Participate In? None MIGRATION.0301 180294 Information not available 07/23/2022 Do You Use Sunscreen Routinely? No MIGRATION.0301 367602 Information not available 07/23/2022 Has Tobacco Cessation Counseling Been Provided? No MIGRATION.0301 591123 Information not available 07/23/2022 Have You Recently Traveled Abroad? No MIGRATION.0301 859699 Information not available 07/23/2022 Do You Have Difficulty Walking Or Climbing Stairs? No MIGRATION.0301 025703 Information not available 07/23/2022 Do You Have Any Dietary Restrictions? No MIGRATION.0301 037198 Information not available 07/23/2022 Sex: Male Functional Status Question Answer Note LastModified by Organizat ion Details LastModified Time Do you use any illicit or recreational drugs? No MIGRATION.454311 4390 Information not available 07/23/2022 Do you or have you ever used any other forms of tobacco or nicotine? No MIGRATION.861054 3192 Information not available 07/23/2022 What is your level of alcohol consumption? None MIGRATION.077547 1847 Information not available 07/23/2022 Do you or have you ever used smokeless tobacco? Never used smokeless tobacco MIGRATION.348900 0274 Information not available 07/23/2022 Do you have transportation difficulties? No MIGRATION.010696 9001 Information not available 07/23/2022 Are you able to walk? YESWOREST MIGRATION.501401 2753 Information not available 07/23/2022 Do you have difficulty doing errands alone? No MIGRATION.977163 5706 Information not available 07/23/2022 Are you able to care for yourself? Yes MIGRATION.563882 8160 Information not available 07/23/2022 What is your occupation? Retired MIGRATION.521026 6300 Information not available 07/23/2022 Do you have difficulty dressing or bathing? No MIGRATION.577390 8711 Information not available 07/23/2022 Do you or have you ever used e-cigarettes or vape? Never used electronic cigarettes MIGRATION.942584 3936 Information not available 07/23/2022 What is your exercise level? None MIGRATION.472996 4035 Information not available 07/23/2022 Mental Status Question Answer Note LastModified by Organizat ion Details LastModified Time Do you feel stressed (tense, restless, nervous, or anxious, or unable to sleep at night)? [id number] MIGRATION.82586759 26 Information not available 07/23/2022 Do you have difficulty concentrating, remembering or making decisions? No MIGRATION.36138760 26 Information not available 07/23/2022 Family History Relationship Description Onset Age of this Age Resolved Age Notes LastModified by Organization Details LastModified Time Father Myocardial infarction MIGRATION.731 [id number] Not available 07/23/2022 00:59:57 Mother Viral hepatitis, type G MIGRATION.056 [id number] Not available 07/23/2022 00:59:57 Medical History Condition Response NERVE DISEASE N BLINDNESS N RHEUMATIC FEVER N KIDNEY STONES N BLADDER PROBLEMS N MRSA N OTHER # 1 N POLIO N LUNG DISEASE/DISORDER N RADIATION / CHEMOTHERAPY N COPD N Other # 2 N BLOOD DISEASES N EAR OR HEARING PROBLEMS N MUMPS N BOWEL PROBLEMS N DEPRESSION (INCLUDING POST ) N STROKE/TIA N ULCERS N BENIGN PROSTATIC HYPERPLASIA N MEASLES N MYOCARDIAL INFARCTION N OBESITY N GERD/NAUSEA Y ANEURYSM Y URINARY/BLADDER/KIDNEY PROBLEMS N CORONARY ARTERY DISEASE (CAD) Y ADDICTION CONCERNS N ENDOMETRIOSIS N Impotence N USE OF BLOOD THINNERS N SKIN PROBLEMS Y GASTROINTESTINAL DISORDER N PERIPHERAL VASCULAR DISEASE N MUSCLE,JOINT OR BONE PROBLEMS N GASTROINTESTINAL BLEEDING N BLOOD CLOTS N ASTHMA N CATARACTS N ERECTILE DYSFUNCTION N VARICOSITIES N GI PROBLEMS N Low Testosterone N INFERTILITY N AIDS/HIV N CHEMOTHERAPY / RADIATION N LIVER DISEASE N MALE HYPOGONADISM N HYPERTENSION Y Deficiency N TOURETTE'S N ANXIETY DISORDER Y BLOOD TRANSFUSION N ANEMIA/BLOOD DISORDER N CHRONIC EAR INFECTIONS N BRONCHITIS N TUBERCULOSIS N GLAUCOMA N FOOT PROBLEM N DIVERTICULITIS N SLEEP APNEA N CHICKENPOX N INFECTIOUS DISEASE N HEART ARRHYTHMIA N PROSTATE Y INSOMNIA N HIGH CHOLESTEROL / HYPERLIPIDEMIA Y HYPERTHYROIDISM N EYE PROBLEMS N EDEMA N CHRONIC PAIN SYNDROME N HYPOTHYROIDISM N CAROTID BLOCKAGE N CONSTIPATION N BACK / NECK PROBLEMS N HAVE YOU BEEN HOSPITALIZED OR SEEN IN [facility] IN THE PAST YEAR ? N ATHEROSCLEROSIS N BREAST PROBLEMS N DIALYSIS N ECZEMA N OSTEOPOROSIS N ARTHRITIS N APPENDICITIS N DIABETES, TYPE N BAD TEETH N ENT N HEARTBURN / REFLUX N AUTISM SPECTRUM DISORDER (ASD) N HEPATITIS / LIVER DISEASE N GOUT N SLEEP DISORDER N ALZHEIMER'S DISEASE N Brain Problems N HERPES N DEMENTIA N HEADACHES/MIGRAINES N SEIZURES/EPILEPSY N VASCULAR DISEASE N PACEMAKER N Blood Disorder N DIZZINESS N HEART DISEASE/HEART PROBLEMS N KIDNEY DISEASE Y MULTIPLE SCLEROSIS N CARDIAC ARRHYTHMIA N CANCER: SPECIFY N ATRIAL FIBRILLATION N Gall Stones N PULMONARY EMBOLISM N AUTOIMMUNE DISEASE N Immunizations Vaccine Type Date Status Note Provider Nam e and Address Organization Details Recorded Time SARS-COV-2 (COVID-19) vaccine, UNSPECIFIED 1 completed Not Available [facility] 03/13/2023 13:24:52 SARS-COV-2 (COVID-19) vaccine, UNSPECIFIED 1 completed Not Available [facility] 03/13/2023 13:24:52 Influenza, high-dose, trivalent, PF 9 completed Not Available [facility] 03/13/2023 13:24:52 Influenza, high-dose, trivalent, PF 6 completed Not Available [facility] 03/13/2023 13:24:52 Influenza, high-dose, trivalent, PF 8 completed Not Available [facility] 03/13/2023 13:24:52 Pneumococcal conjugate PCV 13 5 completed Not Available [facility] 03/13/2023 13:24:52 Influenza, split virus, trivalent, PF 3 completed Not Available [facility] 03/13/2023 13:24:53 Past Encounters Encounter ID Performer Location Encounter Start Date Encounter Closed Date Diagnosis/Indication Diagnosis SNOMED-CT Code Diagnosis ICD10 Code Diagnosis Note [id number] Lonnie Watkins MD [facility] Internal Med [facility] [address] [facility] 15 [place] [address] 07/25/2020 00:00:00 08/02/2020 21:29:21 [id number] Lonnie Watkins MD [facility] Internal Med [facility] [address] [facility] [address] [place] [address] 11/28/2020 00:00:00 12/02/2020 14:47:34 [id number] Lonnie Watkins MD [facility] Internal Med [facility] [address] [place], [place] [address]., [address] [address] 05/29/2021 00:00:00 06/22/2021 15:31:26 [id number] Lonnie Watkins MD [facility] Internal Med [facility] [address] [place], [place] [address]., [address] [address] 11/27/2021 00:00:00 11/27/2021 17:50:17 [id number] Lonnie Watkins MD [facility] Internal Med [facility] [address] [place], [place] [address]., [address] [address] 05/28/2022 00:00:00 05/28/2022 18:44:18 [id number] Lonnie Watkins MD [facility] Internal Med [facility] [address] [facility] [address] [address] 11/26/2022 11:17:43 11/26/2022 12:39:04 Renewal of prescription [id number] Z76.0 Gastroesop hageal reflux disease 841845068 K21.9 Coronary arteriosclerosis 68995409 I25.10 Chronic rhinitis 9253424 6 J31.0 Chronic ki dney disease stage 3 034790004 N18.30 Anxiety 93485351 F41.9 Essential hypertension 77029464 I10 Irritable bowel syndrome 80042223 K58.9 Health Concerns Section Related Observation LastModified by Organization Detai ls LastModified Time None Recorded Concern Status LastModified by Organization Details LastModified Time None Recorded Advance Directives Directive Y: Payers Insurance Date Sequence Insurance Name Policy Number Policy Manning Covered Member ID Manning Member ID Guarantor Name 12/08/2022 2 [place] [id number] Ian Jones [id number] Ian Jones 11/23/2022 1 [place] Ian Jones [id number] Ian Jones 11/26/2022 2 [employer] SUPPLEMENTAL - [employer] (MEDICARE SUPPLEMENT) Ian Jones [id number] Ian Jones Notes Date Note Type Note Provider Name and Address Organization Details Recorded Time 11/26/2022 text/html GERD no nausea vomiting CKD 3 asymptomatic at this time anxiety stable hypertension 124/70 controlled no headache or dizziness IBS fluctuates CAD no chest pain chronic rhinitis bothers him quite a bit Lonnie Watkins MD [address] [place] [address], [facility] [address], [place], [address], [facility] [employer] 11/30/2022 15:19:46
--- OUTSIDE RECORDS SUMMARY | 2024-11-04 08:00 | XMS_ITS | Referral Summary ---
Author Organization [facility] Address [address] [place] [address] Care Team Providers Care Pricing/Signage Team Member Name Role Phone Sharita Kelly MD Primary Care Provider Donte Camacho MD Unavailable [phone] Delvin Mendenhall MD Unavailable [phone] Shailesh Pabon MD Unavailable Lorie Murray NP Unavailable [phone] Encounters Date Type Department Care Team Description 11/03/2024 3:44 PM CDT Hospital Encounter [facility] [address] [place], [place] [id number] 10/18/2024 10:28 AM CDT - 11/03/2024 3:41 PM CDT Hospital Encounter [facility] Oncology [address] [place], [place] [id number] Zeke Correa, Souleymane Fregoso MD Rudomiotov, Olga, MD Burton, Jeffrey Ryan, DO Onaghise, Jude, MD Acute congestive heart failure, unspecified heart failure type (HCC) (Primary Dx); Chronic kidney disease, unspecified CKD stage; Pneumonia of right lung due to infectious organism, unspecified part of lung; Acute hypoxemic respiratory failure (HCC) Discharge Disposition: Discharge to SNF from Last 3 Months Allergies Active Allergy Reactions Criticality Noted Date [...] 1 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 (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 01/08/20 19 Active atorvastatin (LIPITOR) [...] by mouth once a week on Thu Active amoxicillin-clavula pamela (AUGMENTIN) 875-125 mg per tablet Take 1 tablet (875 mg of amoxicillin total) by mouth 2 (two) times a day for 14 days tablet 11/04/19 25 025 Active midodrine (PROAMATINE) [...] mouth daily 025 Discontin ued(Error ) multivit fxgrbpdw-wspy-VW-ca lcium (THERA-M) 9 mg iron-400 mcg tabletIndications:V itamin Deficiency Prevention Take 1 tablet by mouth daily 025 Discontin ued(Error ) digoxin (LANOXIN) 250 mcg (0.25 mg) tablet Take 1 tablet (250 mcg total) by mouth 3 (three) times a week on Mon, Wed, Fri 10/08/19 025 Discontin ued(Stop Taking at Discharge ) Active Problems Problem Noted Date Diagnosed Date Acute congestive heart failu re, unspecified heart failure type 10/18/2024 Palpitations 02/23/2023 Immunizations Immunization Administration Dates Next Due Influenza, Quad, Adjuvantate d, Intramuscular 02/22/2021,02/20/2020 Influenza, Quadrivalent, Hig h Dose, Preservative Free, Intrr 02/26/2022,03/02/2019 Influenza, Trivalent, High D ose, Split, Preservative Free, Intramuscular 03/02/2019,02/24/2018,03/09/2016,01/30 Influenza, Trivalent, Preser vative Free, Intramuscular 03/03/2013 Pneumococcal Conjugate PCV 13 12/24/2018, 015 Pneumococcal, Unspecified 12/31/2015 Sars-CoV-2, Unspecified 06/22/2020 Social History Tobacco Use Types Packs/Day Years Used Date Smoking Tobacco: Former Cigarettes 1 1997 Passive Smoke Exposure: Past Smokeless Tobacco: Never Tobacco Cessation:Counseling Given: Not Answered [facility] Utilities Answer Date Recorded In the past 12 months has [employer], [employer], oil, or water [employer] threatened to shut off services in your [...] week 10/19/2024 How often do you attend chur or mu-ism services? More than 4 times per year 10/19/2024 Do you belong to any clubs o r organizations such as presybeterian groups, unions, fraternal or athletic groups, or [...] place to sleep or slept in a long-term (including now)? No 02/24/2023 Housing Stability Vital Sign Answer Carmine e Recorded In the last 12 months, was t here a time when you were not able to pay the mortgage or rent on time? No 10/19/2024 In the past 12 months, how m any times have you moved where you were living? 0 10/19/2024 At any time in the past 12 m [facility], were you homeless or living in a long-term (including now)? No 10/19/2024 Personal Safety Answer Date Recorded Have you ever been in or are you currently in a harmful physical or emotional relationship or is someone making you feel afraid or unsafe? 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 Technician Device Identifier Shelf Expiration Date Model / [...] LAB BLOOD ORDERABLES Final Resu lt [facility]IE [id number] Department [place] [address] * (ABNORMAL) Differential, auto (11/03/2024 6:28 AM CDT) Neutrophil abs 2.83 1.50 - 6.50 K/cumm Imm gran abs 0.04 0.00 - 0.10 K/cumm [facility] Lymphocyte abs 0.56(L) 0.80 - 3.30 K/cumm [facility] Monocyte abs 0.38 0.20 - 0.80 K/cumm [facility] Eosinophil abs 0.12 0.00 - 0.50 K/cumm [facility] Basophil abs 0.02 0.00 - 0.10 K/cumm [facility] Neutrophil pct 71.7 % [facility] Comment: Interpretive Data Percent cell count reference ranges are not reported, since discordance with absolute values may lead to misinterpretation of CBC data. Current Interpretive Data was last revised on 2017. Imm gran pct 1.0 % [facility] Comment: Interpretive Data Percent cell count reference ranges are not reported, since discordance with absolute values may lead to misinterpretation of CBC data. Current Interpretive Data was last revised on 2017. Lymphocyte pct 14.2 % [facility] Comment: Interpretive Data Percent cell count reference ranges are not reported, since discordance with absolute values may lead to misinterpretation of CBC data. Current Interpretive Data was last revised on 2017. Monocyte pct 9.6 % [facility] Comment: Interpretive Data Percent cell count reference ranges are not reported, since discordance with absolute values may lead to misinterpretation of CBC data. Current Interpretive Data was last revised on 2017. Eosinophil pct 3.0 % [facility] Comment: Interpretive Data Percent cell count reference ranges are not reported, since discordance with absolute values may lead to misinterpretation of CBC data. Current Interpretive Data was last revised on 2017. Basophil pct 0.5 % [facility] Comment: Interpretive Data Percent cell count reference ranges are not reported, since discordance with absolute values may lead to misinterpretation of CBC data. Current Interpretive Data was last revised on 2017. Blood 11/03/2024 6:28 AM CDT 11/03/2024 6:49 AM CDT Namrata Spencer NP LAB BLOOD ORDERABLES Final Result Performing Organization Address [facility] Co de Phone Number LAURIE ROSALES [address] Department [place] [address] * (ABNORMAL) CBC with auto differential (11/03/2024 6:28 AM CDT) Pathologist [facility] WBC 3.95 3.80 - 9.90 K/cumm Hgb 12.0(L) 13.0 - 17.5 g/dL [facility] Hct 36.4(L) 38.9 - 50.3 % [facility] Plt 143(L) 150 - 400 K/cumm [facility] MPV 11.7 9.1 - 12.3 fL [facility] RBC 3.85(L) 4.30 - 5.80 M/cumm [facility] MCV 94.5 81.3 - 96.4 fL [facility] MCH 31.2 27.1 - 33.3 pg [facility] MCHC 33.0 32.3 - 35.7 g/dL [facility] CH RDW CV 16.5(H) 11.1 - 14.9 % [facility] RDW SD 57.1(H) 35.7 - 48.1 fL [facility] NRBC abs 0.00 0.00 - 0.01 K/cumm [facility] Blood 11/03/2024 6:28 AM CDT 11/03/2024 6:49 AM CDT Namrata Spencer NP LAB BLOOD ORDERABLES Final Result Performing Organization Address City/[facility]/ZIP Co de Phone Number LAURIE ROSALES [address] Department of Laboratories [place], [place] [id number] * (ABNORMAL) Protime-INR (11/03/2024 6:28 AM CDT) Pathologist [facility] PT 42.2(H) 9.7 - 13.0 sec INR 3.80(H) 0.90 - 1.20 [facility] Comment: Interpretive data Oral anticoagulant therapeutic ranges: Venous thromboembolism prophylaxis or treatment: 2.0-3.0 CARDIOLOGY Standard range: 2.0-3.0 High-intensity range: 2.5-3.5 Refer to indication-specific guidelines for appropriate target ranges for prosthetic heart valve replacement. Current interpretive data was last revised on 2019. Blood 11/03/2024 6:28 AM CDT 11/03/2024 6:48 AM CDT us Luan Guillermo DO LAB BLOOD ORDERABLES Fay l Result [facility] [address] Department [place] [address] * (ABNORMAL) Renal function panel (11/03/2024 6:28 AM CDT) Sodium 133(L) 135 - 145 mmol/L Potassium, pl 3.6 3.3 - 4.9 mmol/L [facility] Chloride 94(L) 97 - 110 mmol/L [facility] CO2 31 22 - 32 mmol/L [facility] Anion gap 8 2 - 15 mmol/L [facility] BUN 25 6 - 25 mg/dL [facility] Creatinine 1.22 0.80 - 1.30 mg/dL [facility] Glucose 118 70 - 199 mg/dL [facility] Comment: Interpretive Data Fasting glucose >/= 126 [...] 2022. Calcium 8.1(L) 8.5 - 10.3 mg/dL [facility] Phosphorus, pl 2.4 2.3 - 4.5 mg/dL [facility] Albumin 2.8(L) 3.5 - 5.0 g/dL [facility] Blood 11/03/2024 6:28 AM CDT 11/03/2024 6:47 AM CDT us Ryan Bailey MD LAB BLOOD ORDERABLES Final Resu lt Performing Organization Address [facility] de Phone Number LAURIE ROSALES [address] Department [facility] [place], [place] [phone] * (ABNORMAL) eGFR (11/02/2024 7:24 AM CDT) [...] ORDERABLES Final Resu lt Performing Organization Address [facility] Co de Phone Number LAURIE ROSALES [address] Department [place] [address] * (ABNORMAL) Differential, auto (11/02/2024 7:24 AM CDT) Neutrophil abs 3.09 1.50 - 6.50 K/cumm Imm gran abs 0.02 0.00 - 0.10 K/cumm [facility] Lymphocyte abs 0.54(L) 0.80 - 3.30 K/cumm [facility] Monocyte abs 0.35 0.20 - 0.80 K/cumm [facility] Eosinophil abs 0.09 0.00 - 0.50 K/cumm [facility] Basophil abs 0.02 0.00 - 0.10 K/cumm [facility] Neutrophil pct 75.2 % [facility] Comment: Interpretive Data Percent cell count reference ranges are not reported, since discordance with absolute values may lead to misinterpretation of CBC data. Current Interpretive Data was last revised on 2017. Imm gran pct 0.5 % [facility] Comment: Interpretive Data Percent cell count reference ranges are not reported, since discordance with absolute values may lead to misinterpretation of CBC data. Current Interpretive Data was last revised on 2017. Lymphocyte pct 13.1 % [facility] Comment: Interpretive Data Percent cell count reference ranges are not reported, since discordance with absolute values may lead to misinterpretation of CBC data. Current Interpretive Data was last revised on 2017. Monocyte pct 8.5 % [facility] Comment: Interpretive Data Percent cell count reference ranges are not reported, since discordance with absolute values may lead to misinterpretation of CBC data. Current Interpretive Data was last revised on 2017. Eosinophil pct 2.2 % [facility] Comment: Interpretive Data Percent cell count reference ranges are not reported, since discordance with absolute values may lead to misinterpretation of CBC data. Current Interpretive Data was last revised on 2017. Basophil pct 0.5 % [facility] Comment: Interpretive Data Percent cell count reference ranges are not reported, since discordance with absolute values may lead to misinterpretation of CBC data. Current Interpretive Data was last revised on 2017. Blood 11/02/2024 7:24 AM CDT 11/02/2024 7:29 AM CDT Namrata Spencer NP LAB BLOOD ORDERABLES Final Result [facility]URIE ROSALES [address] Department [place] [address] * (ABNORMAL) CBC with auto differential (11/02/2024 7:24 AM CDT) WBC 4.11 3.80 - 9.90 K/cumm Hgb 12.2(L) 13.0 - 17.5 g/dL [facility] Hct 36.7(L) 38.9 - 50.3 % [facility] Plt 147(L) 150 - 400 K/cumm [facility] MPV 11.0 9.1 - 12.3 fL [facility] RBC 3.90(L) 4.30 - 5.80 M/cumm [facility] MCV 94.1 81.3 - 96.4 fL [facility] MCH 31.3 27.1 - 33.3 pg [facility] MCHC 33.2 32.3 - 35.7 g/dL [facility] RDW CV 16.6(H) 11.1 - 14.9 % [facility] RDW SD 57.5(H) 35.7 - 48.1 fL [facility] NRBC abs 0.00 0.00 - 0.01 K/cumm [facility] Blood 11/02/2024 7:24 AM CDT 11/02/2024 7:29 AM CDT Namrata Spencer NP LAB BLOOD ORDERABLES Final Result [facility] [address] Department [place] [address] * (ABNORMAL) Protime-INR (11/02/2024 7:24 AM CDT) Pathologist [facility] PT 43.7(H) 9.7 - 13.0 sec INR 3.93(H) 0.90 - 1.20 [facility] Comment: Interpretive data Oral anticoagulant therapeutic ranges: Venous thromboembolism prophylaxis or treatment: 2.0-3.0 CARDIOLOGY Standard range: 2.0-3.0 High-intensity range: 2.5-3.5 Refer to indication-specific guidelines for appropriate target ranges for prosthetic heart valve replacement. Current interpretive data was last revised on 2019. Blood 11/02/2024 7:24 AM CDT 11/02/2024 7:30 AM CDT Luan Guillermo DO LAB BLOOD ORDERABLES Fay l Result Performing Organization Address City/[facility] Co de Phone Number LAURIE ROSALES [address] Department [employer] [place] [address] * (ABNORMAL) Renal function panel (11/02/2024 7:24 AM CDT) Sodium 135 135 - 145 mmol/L Potassium, pl 3.7 3.3 - 4.9 mmol/L [facility] Chloride 96(L) 97 - 110 mmol/L [facility] CO2 32 22 - 32 mmol/L [facility] Anion gap 7 2 - 15 mmol/L [facility] BUN 29(H) 6 - 25 mg/dL [facility] Creatinine 1.27 0.80 - 1.30 mg/dL [facility] Glucose 119 70 - 199 mg/dL [facility] Comment: [...] Calcium 8.4(L) 8.5 - 10.3 mg/dL [facility] Phosphorus, pl 2.5 2.3 - 4.5 mg/dL [facility] Albumin 2.9(L) 3.5 - 5.0 g/dL [facility] Blood 11/02/2024 7:24 AM CDT 11/02/2024 7:29 AM CDT Ryan Bailey MD LAB BLOOD ORDERABLES Final Resu lt Performing Organization Address [facility] Co de Phone Number LAURIE ROSALES [address] [place] [address] * XR Chest Pa Lateral 2 Views [...] LAB BLOOD ORDERABLES Final Resu lt [facility]URIE [address] Department [place] [address] * (ABNORMAL) Differential, auto (11/01/2024 4:00 AM CDT) Neutrophil abs 2.11 1.50 - 6.50 K/cumm Imm gran abs 0.01 0.00 - 0.10 K/cumm [facility] Lymphocyte abs 0.44(L) 0.80 - 3.30 K/cumm [facility] Monocyte abs 0.30 0.20 - 0.80 K/cumm [facility] Eosinophil abs 0.10 0.00 - 0.50 K/cumm [facility] Basophil abs 0.01 0.00 - 0.10 K/cumm [facility] Neutrophil pct 71.1 % [facility] Comment: Interpretive Data Percent cell [...] revised on 2017. Lymphocyte pct 14.8 % [facility] Comment: Interpretive Data Percent cell count reference ranges are not reported, since discordance with absolute values may lead to misinterpretation of CBC data. Current Interpretive Data was last revised on 2017. Monocyte pct 10.1 % [facility] Comment: Interpretive Data Percent cell count reference ranges are not reported, since discordance with absolute values may lead to misinterpretation of CBC data. Current Interpretive Data was last revised on 2017. Eosinophil pct 3.4 % [facility] Comment: Interpretive Data Percent cell count reference ranges are not reported, since discordance with absolute values may lead to misinterpretation of CBC data. Current Interpretive Data was last revised on 2017. Basophil pct 0.3 % [facility] Comment: Interpretive Data Percent cell count reference ranges are not reported, since discordance with absolute values may lead to misinterpretation of CBC data. Current Interpretive Data was last revised on 2017. Blood 11/01/2024 4:00 AM CDT 11/01/2024 4:22 AM CDT Namrata Spencer NP LAB BLOOD ORDERABLES Final Result [facility] [address] Department [place] [address] * (ABNORMAL) CBC with auto differential (11/01/2024 4:00 AM CDT) WBC 2.97(L) 3.80 - 9.90 K/cumm Hgb 12.1(L) 13.0 - 17.5 g/dL [facility] Hct 36.3(L) 38.9 - 50.3 % [facility] Plt 133(L) 150 - 400 K/cumm [facility] MPV 11.9 9.1 - 12.3 fL [facility] RBC 3.91(L) 4.30 - 5.80 M/cumm [facility] MCV 92.8 81.3 - 96.4 fL [facility] MCH 30.9 27.1 - 33.3 pg [facility] MCHC 33.3 32.3 - 35.7 g/dL [facility] RDW CV 16.0(H) 11.1 - 14.9 % [facility] RDW SD 54.2(H) 35.7 - 48.1 fL [facility] NRBC abs 0.00 0.00 - 0.01 K/cumm [facility] Blood 11/01/2024 4:00 AM CDT 11/01/2024 4:22 AM CDT Namrata Spencer UTILITY SPRAY OPERATOR LAB BLOOD ORDERABLES Final Result [facility] ROSALES [address] Department [place] [address] * (ABNORMAL) Protime-INR (11/01/2024 4:00 AM CDT) PT 29.6(H) 9.7 - 13.0 sec INR 2.69(H) 0.90 - 1.20 [facility] Comment: Interpretive data Oral anticoagulant therapeutic ranges: Venous thromboembolism prophylaxis or treatment: 2.0-3.0 CARDIOLOGY Standard range: 2.0-3.0 High-intensity range: 2.5-3.5 Refer to indication-specific guidelines for appropriate target ranges for prosthetic heart valve replacement. Current interpretive data was last revised on 2019. Blood 11/01/2024 4:00 AM CDT 11/01/2024 4:23 AM CDT Luan Guillermo DO LAB BLOOD ORDERABLES Fay l Result Performing Organization Address City/[facility]/ZIP Co de Phone Number LAURIE ROSALES [address] Department [place] [address] * (ABNORMAL) Renal function panel (11/01/2024 4:00 AM CDT) Sodium 137 135 - 145 mmol/L Potassium, pl 3.4 3.3 - 4.9 mmol/L [facility] Chloride 96(L) 97 - 110 mmol/L [facility] CO2 35(H) 22 - 32 mmol/L [facility] Anion gap 6 2 - 15 mmol/L [facility] BUN 34(H) 6 - 25 mg/dL [facility] Creatinine 1.37(H) 0.80 - 1.30 mg/dL [facility] Glucose 92 70 - 199 mg/dL [facility] Comment: Interpretive [...] 2022. Calcium 8.4(L) 8.5 - 10.3 mg/dL [facility] Phosphorus, pl 2.0(L) 2.3 - 4.5 mg/dL [facility] Albumin 2.8(L) 3.5 - 5.0 g/dL [facility] Blood 11/01/2024 4:00 AM CDT 11/01/2024 4:22 AM CDT us Ryan Bailey MD LAB BLOOD ORDERABLES Final Resu lt [facility] [address] Department [place] [address] * (ABNORMAL) eGFR (10/31/2024 12:06 [...] MD LAB BLOOD ORDERABLES Final Res ult [facility] [address] Department [place] [address] * (ABNORMAL) Differential, auto (10/31/2024 12:06 AM CDT) Neutrophil abs 2.10 1.50 - 6.50 K/cumm Imm gran abs 0.01 0.00 - 0.10 K/cumm [facility] Lymphocyte abs 0.43(L) 0.80 - 3.30 K/cumm [facility] Monocyte abs 0.41 0.20 - 0.80 K/cumm [facility] Eosinophil abs 0.07 0.00 - 0.50 K/cumm [facility] Basophil abs 0.01 0.00 - 0.10 K/cumm [facility] Neutrophil pct 69.4 % [facility] Comment: Interpretive Data Percent cell count reference ranges are not reported, since discordance with absolute values may lead to misinterpretation of CBC data. Current Interpretive Data was last revised on 2017. Imm gran pct 0.3 % [facility] Comment: Interpretive Data Percent cell count reference ranges are not reported, since discordance with absolute values may lead to misinterpretation of CBC data. Current Interpretive Data was last revised on 2017. Lymphocyte pct 14.2 % [facility] Comment: Interpretive Data Percent cell count reference ranges are not reported, since discordance with absolute values may lead to misinterpretation of CBC data. Current Interpretive Data was last revised on 2017. Monocyte pct 13.5 % [facility] Comment: Interpretive Data Percent cell count reference ranges are not reported, since discordance with absolute values may lead to misinterpretation of CBC data. Current Interpretive Data was last revised on 2017. Eosinophil pct 2.3 % [facility] Comment: Interpretive Data Percent [...] AM CDT 10/31/2024 12:13 AM CDT us Namrata Spencer NP LAB BLOOD ORDERABLES Final Result [facility] ROSALES [address] Department [place] [address] * (ABNORMAL) Pro B-type natriuretic peptide (10/31/2024 [...] 6 AM CDT 10/31/2024 12:13 AM CDT Ryan Bailey MD LAB BLOOD ORDERABLES Final Resu lt Performing Organization Address City/State/[facility] Co de Phone Number [facility] [address] Department [place] [address] * (ABNORMAL) CBC with auto differential (10/31/2024 12:06 AM CDT) WBC 3.03(L) 3.80 - 9.90 K/cumm Hgb 11.3(L) 13.0 - 17.5 g/dL [facility] Hct 33.1(L) 38.9 - 50.3 % [facility] Plt 124(L) 150 - 400 K/cumm [facility] MPV 11.4 9.1 - 12.3 fL [facility] RBC 3.65(L) 4.30 - 5.80 M/cumm [facility] MCV 90.7 81.3 - 96.4 fL [facility] MCH 31.0 27.1 - 33.3 pg [facility] MCHC 34.1 32.3 - 35.7 g/dL [facility] RDW CV 15.1(H) 11.1 - 14.9 % [facility] RDW SD 50.5(H) 35.7 - 48.1 fL [facility] NRBC abs 0.00 0.00 - 0.01 K/cumm [facility] Blood 10/31/2024 12:0 6 AM CDT 10/31/2024 12:13 AM CDT Namrata Spencer NP LAB BLOOD ORDERABLES Final Result [facility] [address] Department [place] [address] * (ABNORMAL) Protime-INR (10/31/2024 12:06 AM CDT) PT 18.9(H) 9.7 - 13.0 sec INR 1.73(H) 0.90 - 1.20 [facility] Comment: Interpretive data Oral anticoagulant therapeutic ranges: Venous thromboembolism prophylaxis or treatment: 2.0-3.0 CARDIOLOGY Standard range: 2.0-3.0 High-intensity range: 2.5-3.5 Refer to indication-specific guidelines for appropriate target ranges for prosthetic heart valve replacement. Current interpretive data was last revised on 2019. Blood 10/31/2024 12:0 6 AM CDT 10/31/2024 12:13 AM CDT Luan Guillermo DO LAB BLOOD ORDERABLES Fay l Result Performing Organization Address [facility] Co de Phone Number [facility]URIE ROSALES [address] Department [place] [address] * (ABNORMAL) Basic metabolic panel (10/31/2024 12:06 AM CDT) Sodium 123(C) 135 - 145 mmol/L Comment:Critical Result call ed to and read back by Gracy Bey, DATE: 2024-10-31 00:59:18 BY: Silverio Parr Potassium, pl 3.7 3.3 - 4.9 mmol/L [facility] Chloride 89(L) 97 - 110 mmol/L [facility] CO2 30 22 - 32 mmol/L [facility] Anion gap 4 2 - 15 mmol/L [facility] BUN 32(H) 6 - 25 mg/dL [facility] Creatinine 1.26 0.80 - 1.30 mg/dL [facility] Glucose 106 70 - 199 mg/dL [facility] Comment: Interpretive Data Fasting glucose >/= 126 [...] 2022. Calcium 7.6(L) 8.5 - 10.3 mg/dL [facility] Blood 10/31/2024 12:0 6 AM CDT 10/31/2024 12:13 AM CDT us Delvin Mendenhall MD LAB BLOOD ORDERABLES Final Res ult [facility] [address] [place] [address] * XR Chest 1 View (10/30/2024 7:26 [...] congestion. Electronically signed by: Coco Youngblood M.D. Ryan Bailey MD IMG XR PROCEDURES Final [...] MD LAB BLOOD ORDERABLES Final Res ult [facility] [address] Department [place] [address] * (ABNORMAL) Basic metabolic panel (10/30/2024 4:03 [...] Anion gap 10 2 - 15 mmol/L [facility] BUN 30(H) 6 - 25 mg/dL [facility] Creatinine 1.19 0.80 - 1.30 mg/dL [facility] Glucose 110 70 - 199 mg/dL [facility] Comment: Interpretive Data Fasting glucose >/= 126 [...] 2022. Calcium 7.8(L) 8.5 - 10.3 mg/dL [facility] Blood 10/30/2024 4:03 PM CDT 10/30/2024 4:53 PM CDT us Delvin Mendenhall MD LAB BLOOD ORDERABLES Final Res ult [facility] [address] Department [place] [address] * eGFR (10/30/2024 7:25 AM [...] CDT 10/30/2024 8:31 AM CDT us Delvin Mendnehall MD LAB BLOOD ORDERABLES Final Res ult [facility] [address] Department [place] [address] * (ABNORMAL) Pro B-type natriuretic peptide (10/30/2024 [...] ORDERABLES Final Resu lt Performing Organization Address [facility]/ZIP Co de Phone Number LAURIE ROSALES [address] [place] [address] * (ABNORMAL) TSH (10/30/2024 7:25 AM CDT) Thyroid Stimulating Hormone 5.74(H) 0.30 - 4.20 mcIUnit/mL Blood 10/30/2024 7:25 AM CDT 10/30/2024 11:01 AM CDT us Delvin Mendenhall MD LAB BLOOD ORDERABLES Final Res ult Performing Organization Address [facility] de Phone Number LAURIE ROSALES [id number] Department [place] [address] * (ABNORMAL) Basic metabolic panel (10/30/2024 7:25 AM CDT) Sodium 121(C) 135 - 145 mmol/L Comment:Critical Result call ed to and read back by Adam Meier, DATE: 2024-10-30 09:14:47 BY: Brandon Uribeo Potassium, pl 3.6 3.3 - 4.9 mmol/L [facility] Chloride 84(L) 97 - 110 mmol/L [facility] CO2 28 22 - 32 mmol/L [facility] Anion gap 9 2 - 15 mmol/L [facility] BUN 28(H) 6 - 25 mg/dL [facility] Creatinine 1.17 0.80 - 1.30 mg/dL [facility] Glucose 104 70 - 199 mg/dL [facility] Comment: Interpretive Data Fasting glucose >/= 126 [...] - 10.3 mg/dL LAURIE ROSALES Blood 10/30/2024 7:25 AM CDT 10/30/2024 8:31 AM CDT us Delvin Mendenhall MD LAB BLOOD ORDERABLES Final Res ult Performing Organization Address City/[facility]/ZIP Co de Phone Number LAURIE [address] Department [place] [address] * (ABNORMAL) eGFR (10/30/2024 12:26 AM CDT) [...] BLOOD ORDERABLES Final Res ult LAURIE ROSALES [address] [facility] Department [place] [address] * (ABNORMAL) Differential, auto (10/30/2024 12:26 AM CDT) Neutrophil abs 2.64 1.50 - 6.50 K/cumm Imm gran abs 0.04 0.00 - 0.10 K/cumm [facility] Lymphocyte abs 0.56(L) 0.80 - 3.30 K/cumm [facility] Monocyte abs 0.49 0.20 - 0.80 K/cumm [facility] Eosinophil abs 0.08 0.00 - 0.50 K/cumm [facility] Basophil abs 0.01 0.00 - 0.10 K/cumm [facility] Neutrophil pct 69.1 % [facility] Comment: Interpretive Data Percent cell count reference ranges are not reported, since discordance with absolute values may lead to misinterpretation of CBC data. Current Interpretive Data was last revised on 2017. Imm gran pct 1.0 % [facility] Comment: Interpretive Data Percent cell count reference ranges are not reported, since discordance with absolute values may lead to misinterpretation of CBC data. Current Interpretive Data was last revised on 2017. Lymphocyte pct 14.7 % [facility] Comment: Interpretive Data Percent cell count reference ranges are not reported, since discordance with absolute values may lead to misinterpretation of CBC data. Current Interpretive Data was last revised on 2017. Monocyte pct 12.8 % [facility] Comment: Interpretive Data Percent cell count reference ranges are not reported, since discordance with absolute values may lead to misinterpretation of CBC data. Current Interpretive Data was last revised on 2017. Eosinophil pct 2.1 % [facility] Comment: Interpretive Data Percent cell count reference ranges are not reported, since discordance with absolute values may lead to misinterpretation of CBC data. Current Interpretive Data was last revised on 2017. Basophil pct 0.3 % [facility] Comment: Interpretive Data Percent cell count reference ranges are not reported, since discordance with absolute values may lead to misinterpretation of CBC data. Current Interpretive Data was last revised on 2017. Blood 10/30/2024 12:2 6 AM CDT 10/30/2024 12:40 AM CDT Namrata Vidya Spencer NP LAB BLOOD ORDERABLES Final Result LA[address]IE [address] [place] [address] * (ABNORMAL) CBC with auto differential (10/30/2024 12:26 AM CDT) WBC 3.82 3.80 - 9.90 K/cumm Hgb 12.2(L) 13.0 - 17.5 g/dL [facility] Hct 35.6(L) 38.9 - 50.3 % [facility] Plt 122(L) 150 - 400 K/cumm [facility] CH MPV 11.9 9.1 - 12.3 fL [facility] CH RBC 3.89(L) 4.30 - 5.80 M/cumm [facility] CH MCV 91.5 81.3 - 96.4 fL [facility] CH MCH 31.4 27.1 - 33.3 pg [facility] CH MCHC 34.3 32.3 - 35.7 g/dL [facility] RDW CV 15.2(H) 11.1 - 14.9 % [facility] CH RDW SD 51.4(H) 35.7 - 48.1 fL [facility] CH NRBC abs 0.00 0.00 - 0.01 K/cumm [facility] CH Blood 10/30/2024 12:2 6 AM CDT 10/30/2024 12:40 AM CDT Namrata Spencer NP LAB BLOOD ORDERABLES Final Result LAURIE [address] Department of Laboratories [place], [place] [id number] * (ABNORMAL) Protime-INR (10/30/2024 12:26 AM CDT) PT 18.9(H) 9.7 - 13.0 sec INR 1.73(H) 0.90 - 1.20 [facility] Comment: Interpretive data Oral anticoagulant therapeutic ranges: Venous thromboembolism prophylaxis or treatment: 2.0-3.0 CARDIOLOGY Standard range: 2.0-3.0 High-intensity range: 2.5-3.5 Refer to indication-specific guidelines for appropriate target ranges for prosthetic heart valve replacement. Current interpretive data was last revised on 2019. Blood 10/30/2024 12:2 6 AM CDT 10/30/2024 12:39 AM CDT us Luan Guillermo DO LAB BLOOD ORDERABLES Fay l Result [facility] [address] Department [place] [address] * (ABNORMAL) Basic metabolic panel (10/30/2024 12:26 AM CDT) Sodium 119(C) 135 - 145 mmol/L Comment:Critical Result call ed to and read back by Sherrell Howard, DATE: 2024-10-30 01:24:16 BY: Rose Mary Anne Potassium, pl 3.8 3.3 - 4.9 mmol/L [facility] Chloride 83(L) 97 - 110 mmol/L [facility] CO2 29 22 - 32 mmol/L [facility] Anion gap 7 2 - 15 mmol/L [facility] BUN 32(H) 6 - 25 mg/dL [facility] Creatinine 1.25 0.80 - 1.30 mg/dL [facility] Glucose 117 70 - 199 mg/dL [facility] Comment: Interpretive Data Fasting glucose >/= 126 [...] 2022. Calcium 7.8(L) 8.5 - 10.3 mg/dL [facility] Blood 10/30/2024 12:2 6 AM CDT 10/30/2024 12:40 AM CDT Delvin Mendenhall MD LAB BLOOD ORDERABLES Final Res ult Performing Organization Address [facility] Co de Phone Number LAURIE [address] Department of [employer] [place], [place] [id number] * (ABNORMAL) eGFR (10/29/2024 9:15 PM CDT) [...] 9:15 PM CDT 10/29/2024 9:19 PM CDT Delvin Mendenhall MD LAB BLOOD ORDERABLES Final Res ult Performing Organization Address [facility]/ZIP Co de Phone Number LAURIE ROSALES [address] [place] [address] * (ABNORMAL) Basic metabolic panel (10/29/2024 9:15 PM CDT) Sodium 118(C) 135 - 145 mmol/L Comment:Critical Result call ed to and read back by Letitia Bey, DATE: 2024-10-29 22:05:05 BY: Rose Mary Anne Potassium, pl 4.0 3.3 - 4.9 mmol/L [facility] Chloride 82(L) 97 - 110 mmol/L [facility] CH CO2 27 22 - 32 mmol/L [facility] Anion gap 9 2 - 15 mmol/L [facility] BUN 31(H) 6 - 25 mg/dL [facility] CH Creatinine 1.26 0.80 - 1.30 mg/dL [facility] Glucose 128 70 - 199 mg/dL [facility] Comment: Interpretive Data Fasting glucose >/= 126 [...] 2022. Calcium 7.9(L) 8.5 - 10.3 mg/dL [facility] Blood 10/29/2024 9:15 PM CDT 10/29/2024 9:19 PM CDT us Delvin Mendenhall MD LAB BLOOD ORDERABLES Final Res ult LAURIE [address] Department [place] [address] * (ABNORMAL) eGFR (10/29/2024 3:45 AM CDT) [...] Spencer NP LAB BLOOD ORDERABLES Final Result [facility] [address] Department [place] [address] * (ABNORMAL) Differential, auto (10/29/2024 3:45 AM CDT) Neutrophil abs 2.19 1.50 - 6.50 K/cumm Imm gran abs 0.02 0.00 - 0.10 K/cumm [facility] Lymphocyte abs 0.56(L) 0.80 - 3.30 K/cumm [facility] Monocyte abs 0.41 0.20 - 0.80 K/cumm [facility] Eosinophil abs 0.09 0.00 - 0.50 K/cumm [facility] Basophil abs 0.03 0.00 - 0.10 K/cumm [facility] Neutrophil pct 66.4 % [facility] Comment: Interpretive Data Percent cell count reference ranges are not reported, since discordance with absolute values may lead to misinterpretation of CBC data. Current Interpretive Data was last revised on 2017. Imm gran pct 0.6 % [facility] Comment: Interpretive Data Percent cell count reference ranges are not reported, since discordance with absolute values may lead to misinterpretation of CBC data. Current Interpretive Data was last revised on 2017. Lymphocyte pct 17.0 % [facility] Comment: Interpretive Data Percent cell count reference ranges are not reported, since discordance with absolute values may lead to misinterpretation of CBC data. Current Interpretive Data was last revised on 2017. Monocyte pct 12.4 % [facility] Comment: Interpretive Data Percent cell count reference ranges are not reported, since discordance with absolute values may lead to misinterpretation of CBC data. Current Interpretive Data was last revised on 2017. Eosinophil pct 2.7 % [facility] Comment: Interpretive Data Percent cell count reference ranges are not reported, since discordance with absolute values may lead to misinterpretation of CBC data. Current Interpretive Data was last revised on 2017. Basophil pct 0.9 % [facility] Comment: Interpretive Data Percent cell count reference ranges are not reported, since discordance with absolute values may lead to misinterpretation of CBC data. Current Interpretive Data was last revised on 2017. Blood 10/29/2024 3:45 AM CDT 10/29/2024 4:28 AM CDT Namrata Spencer NP LAB BLOOD ORDERABLES Final Result [facility] [address] Department [place] [address] * (ABNORMAL) CBC with auto differential (10/29/2024 3:45 AM CDT) WBC 3.30(L) 3.80 - 9.90 K/cumm Hgb 11.9(L) 13.0 - 17.5 g/dL [facility] Hct 35.3(L) 38.9 - 50.3 % [facility] Plt 120(L) 150 - 400 K/cumm [facility] MPV 12.5(H) 9.1 - 12.3 fL [facility] RBC 3.79(L) 4.30 - 5.80 M/cumm [facility] MCV 93.1 81.3 - 96.4 fL [facility] MCH 31.4 27.1 - 33.3 pg [facility] MCHC 33.7 32.3 - 35.7 g/dL [facility] RDW CV 15.7(H) 11.1 - 14.9 % [facility] RDW SD 53.3(H) 35.7 - 48.1 fL [facility] NRBC abs 0.00 0.00 - 0.01 K/cumm [facility] Blood 10/29/2024 3:45 AM CDT 10/29/2024 4:28 AM CDT Namrata Spencer UTILITY [employer]AY OPERATOR LAB BLOOD ORDERABLES Final Result Performing Organization Address City/[facility] Co de Phone Number [facility] [phone] Department [place] [address] * (ABNORMAL) Protime-INR (10/29/2024 3:45 AM CDT) PT 17.0(H) 9.7 - 13.0 sec INR 1.56(H) 0.90 - 1.20 [facility] Comment: Interpretive data [...] ORDERABLES Fay l Result Performing Organization Address City/[facility]/ZIP Co de Phone Number [facility] [address] Department of [employer] [place], [place] [id number] * (ABNORMAL) Basic metabolic panel (10/29/2024 3:45 AM CDT) Sodium 126(L) 135 - 145 mmol/L Potassium, pl 3.9 3.3 - 4.9 mmol/L [facility] Chloride 85(L) 97 - 110 mmol/L [facility] CO2 33(H) 22 - 32 mmol/L [facility] Anion gap 8 2 - 15 mmol/L [facility] BUN 34(H) 6 - 25 mg/dL [facility] Creatinine 1.53(H) 0.80 - 1.30 mg/dL [facility] Glucose 96 70 - 199 mg/dL [facility] Comment: Interpretive Data Fasting glucose >/= 126 [...] 2022. Calcium 8.3(L) 8.5 - 10.3 mg/dL [facility] Blood 10/29/2024 3:45 AM CDT 10/29/2024 4:27 AM CDT Namrata Spencer NP LAB BLOOD ORDERABLES Final Result Performing Organization Address [facility] Co de Phone Number BRYNYEE [address] Department [facility] [place] [address] * Sodium, urine, random (10/28/2024 12:12 PM CDT) Sodium, ur 21 mmol/L Comment: Interpretive Data No reference range established. Current interpretive data was last revised 2018. Urine (Urine, Clean Catch) 10/28/2024 12:12 PM CDT 10/28/2024 12:26 PM CDT Ryan Bailey MD LAB URINE ORDERABLES Final Resu lt Performing Organization Address City/[facility]/ZIP Co de Phone Number [facility] [address] Department [employer] [place], [place] [phone] * Potassium, urine, random (10/28/2024 12:12 PM CDT) Potassium conc, ur 11.0 mmol/L Comment: Interpretive Data No reference range established. Current interpretive data was last revised 2018. Urine (Urine, Clean Catch) 10/28/2024 12:12 PM CDT 10/28/2024 12:26 PM CDT us Ryan Bailey MD LAB URINE ORDERABLES Final Resu lt Performing Organization Address [facility]/ZIP Co de Phone Number LAURIE ROSALES [address] [place] [address] * Osmolality, urine (10/28/2024 12:12 PM CDT) Osmo, ur 123 mOsm/kg Comment:Testing performed by : [facility], [address] [place]., [address] Urine 10/28/2024 12:1 2 PM CDT 10/28/2024 2:34 PM CDT us Ryan Bailey MD LAB URINE ORDERABLES Final Resu lt Performing Organization Address [facility] Co de Phone Number BRYNYEE ROSALES [address] [place] [address] * Chloride, urine, random (10/28/2024 12:12 PM CDT) Chloride, ur 22 mmol/L Comment: Interpretive Data No reference range established. Current interpretive data was last revised 2018. Urine (Urine, Clean Catch) 10/28/2024 12:12 PM CDT 10/28/2024 12:26 PM CDT us Ryan Bailey MD LAB URINE ORDERABLES Final Resu lt Performing Organization Address [facility] Co de Phone Number LAURIE ROSALES [address] [place] [address] * (ABNORMAL) eGFR (10/28/2024 4:13 AM CDT) [...] NP LAB BLOOD ORDERABLES Final Result LAURIE [address] Department [place] [address] * (ABNORMAL) Differential, auto (10/28/2024 4:13 AM CDT) Pathologist [facility] Neutrophil abs 2.25 1.50 - 6.50 K/cumm Imm gran abs 0.01 0.00 - 0.10 K/cumm [facility] Lymphocyte abs 0.54(L) 0.80 - 3.30 K/cumm [facility] Monocyte abs 0.39 0.20 - 0.80 K/cumm [facility] Eosinophil abs 0.08 0.00 - 0.50 K/cumm [facility] Basophil abs 0.01 0.00 - 0.10 K/cumm [facility] Neutrophil pct 68.6 % [facility] Comment: Interpretive Data Percent cell count reference ranges are not reported, since discordance with absolute values may lead to misinterpretation of CBC data. Current Interpretive Data was last revised on 2017. Imm gran pct 0.3 % [facility] Comment: Interpretive Data Percent cell count reference ranges are not reported, since discordance with absolute values may lead to misinterpretation of CBC data. Current Interpretive Data was last revised on 2017. Lymphocyte pct 16.5 % [facility] Comment: Interpretive Data Percent cell count reference ranges are not reported, since discordance with absolute values may lead to misinterpretation of CBC data. Current Interpretive Data was last revised on 2017. Monocyte pct 11.9 % [facility] Comment: Interpretive Data Percent cell count reference ranges are not reported, since discordance with absolute values may lead to misinterpretation of CBC data. Current Interpretive Data was last revised on 2017. Eosinophil pct 2.4 % [facility] Comment: Interpretive Data Percent cell count reference ranges are not reported, since discordance with absolute values may lead to misinterpretation of CBC data. Current Interpretive Data was last revised on 2017. Basophil pct 0.3 % [facility] Comment: Interpretive Data Percent cell count reference ranges are not reported, since discordance with absolute values may lead to misinterpretation of CBC data. Current Interpretive Data was last revised on 2017. Blood 10/28/2024 4:13 AM CDT 10/28/2024 4:26 AM CDT Namrata Spencer NP LAB BLOOD ORDERABLES Final Result [facility] [address] Department [place] [address] * (ABNORMAL) CBC with auto differential (10/28/2024 4:13 AM CDT) WBC 3.28(L) 3.80 - 9.90 K/cumm Hgb 12.2(L) 13.0 - 17.5 g/dL [facility] Hct 36.0(L) 38.9 - 50.3 % [facility] Plt 115(L) 150 - 400 K/cumm [facility] MPV 11.9 9.1 - 12.3 fL [facility] RBC 3.95(L) 4.30 - 5.80 M/cumm [facility] MCV 91.1 81.3 - 96.4 fL [facility] MCH 30.9 27.1 - 33.3 pg [facility] MCHC 33.9 32.3 - 35.7 g/dL [facility] RDW CV 15.5(H) 11.1 - 14.9 % [facility] RDW SD 51.6(H) 35.7 - 48.1 fL [facility] NRBC abs 0.00 0.00 - 0.01 K/cumm [facility] Blood 10/28/2024 4:13 AM CDT 10/28/2024 4:26 AM CDT Namrata Spencer NP LAB BLOOD ORDERABLES Final Result Performing Organization Address [facility] Co de Phone Number LAURIE [address] [place] [address] * (ABNORMAL) Protime-INR (10/28/2024 4:13 AM CDT) PT 16.8(H) 9.7 - 13.0 sec INR 1.54(H) 0.90 - 1.20 [facility] Comment: Interpretive data Oral anticoagulant therapeutic ranges: Venous thromboembolism prophylaxis or treatment: 2.0-3.0 CARDIOLOGY Standard range: 2.0-3.0 High-intensity range: 2.5-3.5 Refer to indication-specific guidelines for appropriate target ranges for prosthetic heart valve replacement. Current interpretive data was last revised on 2019. Blood 10/28/2024 4:13 AM CDT 10/28/2024 4:25 AM CDT Luan Guillermo DO LAB BLOOD ORDERABLES Fay l Result Performing Organization Address City/[facility]/ZIP Co de Phone Number [facility] [phone] Department [facility] [place], [place] [phone] * (ABNORMAL) Osmolality, blood (10/28/2024 4:13 AM CDT) Pathologist [facility] Osmo 273(L) 275 - 300 mOsm/kg Comment:Testing performed by : [facility], [address] [place]., [address] Blood 10/28/2024 4:13 AM CDT 10/28/2024 2:34 PM CDT us Ryan Bailey MD LAB BLOOD ORDERABLES Final Resu lt Performing Organization Address City/[facility]/ZIP Co de Phone Number LAURIE ROSALES [phone] [place] [address] * Magnesium (10/28/2024 4:13 AM CDT) [facility] Magnesium 1.8 1.4 - 2.5 mg/dL Blood 10/28/2024 4:13 AM CDT 10/28/2024 4:24 AM CDT us Ryan Bailey MD LAB BLOOD ORDERABLES Final Resu lt Performing Organization Address City/[facility] Co de Phone Number LAURIE ROSALES [address] Department [facility] [place] [address] * (ABNORMAL) Basic metabolic panel (10/28/2024 4:13 AM CDT) [facility] Sodium 127(L) 135 - 145 mmol/L Potassium, pl 3.9 3.3 - 4.9 mmol/L [facility] Chloride 88(L) 97 - 110 mmol/L [facility] CO2 37(H) 22 - 32 mmol/L [facility] Anion gap 2 2 - 15 mmol/L [facility] BUN 37(H) 6 - 25 mg/dL [facility] Creatinine 1.36(H) 0.80 - 1.30 mg/dL [facility] Comment:Icteric sample, test results may be affected. Glucose 92 70 - 199 mg/dL [facility] Comment: Interpretive Data Fasting glucose >/= 126 [...] Calcium 8.4(L) 8.5 - 10.3 mg/dL LAUR[facility] ROSALES Blood 10/28/2024 4:13 AM CDT 10/28/2024 4:24 AM CDT us Namrata Spencer NP LAB BLOOD ORDERABLES Final Result LAURIE ROSALES [address] Department [place] [address] * XR Chest 1 View (10/27/2024 11:28 [...] Spencer NP LAB BLOOD ORDERABLES Final Result [facility] [address] Department [place] [address] * (ABNORMAL) Differential, auto (10/27/2024 6:26 AM CDT) Neutrophil abs 2.10 1.50 - 6.50 K/cumm Imm gran abs 0.00 0.00 - 0.10 K/cumm [facility] Lymphocyte abs 0.55(L) 0.80 - 3.30 K/cumm [facility] Monocyte abs 0.35 0.20 - 0.80 K/cumm [facility] Eosinophil abs 0.09 0.00 - 0.50 K/cumm [facility] Basophil abs 0.02 0.00 - 0.10 K/cumm [facility] Neutrophil pct 67.5 % [facility] Comment: Interpretive Data Percent cell count reference ranges are not reported, since discordance with absolute values may lead to misinterpretation of CBC data. Current Interpretive Data was last revised on 2017. Imm gran pct 0.0 % [facility] Comment: Interpretive Data Percent cell count reference ranges are not reported, since discordance with absolute values may lead to misinterpretation of CBC data. Current Interpretive Data was last revised on 2017. Lymphocyte pct 17.7 % [facility] Comment: Interpretive Data Percent cell count reference ranges are not reported, since discordance with absolute values may lead to misinterpretation of CBC data. Current Interpretive Data was last revised on 2017. Monocyte pct 11.3 % [facility] Comment: Interpretive Data Percent cell count reference ranges are not reported, since discordance with absolute values may lead to misinterpretation of CBC data. Current Interpretive Data was last revised on 2017. Eosinophil pct 2.9 % [facility] Comment: Interpretive Data Percent cell count reference ranges are not reported, since discordance with absolute values may lead to misinterpretation of CBC data. Current Interpretive Data was last revised on 2017. Basophil pct 0.6 % [facility] Comment: Interpretive Data Percent cell count reference ranges are not reported, since discordance with absolute values may lead to misinterpretation of CBC data. Current Interpretive Data was last revised on 2017. Blood 10/27/2024 6:26 AM CDT 10/27/2024 6:47 AM CDT us Namrata Spencer NP LAB BLOOD ORDERABLES Final Result BRYNYEE ROSALES [address] Department [place] [address] * (ABNORMAL) CBC with auto differential (10/27/2024 6:26 AM CDT) WBC 3.11(L) 3.80 - 9.90 K/cumm Hgb 12.1(L) 13.0 - 17.5 g/dL [facility] Hct 36.1(L) 38.9 - 50.3 % [facility] Plt 99(L) 150 - 400 K/cumm [facility] MPV 12.3 9.1 - 12.3 fL [facility] RBC 3.92(L) 4.30 - 5.80 M/cumm [facility] MCV 92.1 81.3 - 96.4 fL [facility] MCH 30.9 27.1 - 33.3 pg [facility] MCHC 33.5 32.3 - 35.7 g/dL [facility] RDW CV 16.0(H) 11.1 - 14.9 % [facility] RDW SD 53.5(H) 35.7 - 48.1 fL [facility] NRBC abs 0.00 0.00 - 0.01 K/cumm [facility] Blood 10/27/2024 6:26 AM CDT 10/27/2024 6:47 AM CDT Namrata Spencer NP LAB BLOOD ORDERABLES Final Result [facility] [address] Department [place] [address] * (ABNORMAL) Protime-INR (10/27/2024 6:26 AM CDT) PT 16.2(H) 9.7 - 13.0 sec INR 1.49(H) 0.90 - 1.20 [facility] Comment: Interpretive data Oral anticoagulant therapeutic ranges: Venous thromboembolism prophylaxis or treatment: 2.0-3.0 CARDIOLOGY Standard range: 2.0-3.0 High-intensity range: 2.5-3.5 Refer to indication-specific guidelines for appropriate target ranges for prosthetic heart valve replacement. Current interpretive data was last revised on 2019. Blood 10/27/2024 6:26 AM CDT 10/27/2024 6:46 AM CDT Luan Guillermo DO LAB BLOOD ORDERABLES Fay l Result [facility]URIE ROSALES [address] Department [place] [address] * (ABNORMAL) Basic metabolic panel (10/27/2024 6:26 AM CDT) Sodium 127(L) 135 - 145 mmol/L Potassium, pl 3.6 3.3 - 4.9 mmol/L [facility] Chloride 87(L) 97 - 110 mmol/L [facility] CO2 36(H) 22 - 32 mmol/L [facility] Anion gap 4 2 - 15 mmol/L [facility] BUN 37(H) 6 - 25 mg/dL [facility] Creatinine 1.40(H) 0.80 - 1.30 mg/dL [facility] Glucose 95 70 - 199 mg/dL [facility] Comment: Interpretive Data Fasting glucose >/= [...] 2022. Calcium 8.3(L) 8.5 - 10.3 mg/dL [facility] Blood 10/27/2024 6:26 AM CDT 10/27/2024 6:47 AM CDT Namrata Spencer UTILITY [employer]AY OPERATOR LAB BLOOD ORDERABLES Final Result LAURIE ROSALES [address] Department [place] [address] * XR Chest 1 View (10/26/2024 11:06 [...] by: Coco Youngblood M.D. us Nitesh Phillips UTILITY SPRAY OPERATOR IMG XR PROCEDURES Final R esult * [...] Spencer NP LAB BLOOD ORDERABLES Final Result [facility] [address] Department [place] [address] * (ABNORMAL) Differential, auto (10/26/2024 6:28 AM CDT) Neutrophil abs 2.38 1.50 - 6.50 K/cumm Imm gran abs 0.01 0.00 - 0.10 K/cumm [facility] Lymphocyte abs 0.60(L) 0.80 - 3.30 K/cumm [facility] Monocyte abs 0.41 0.20 - 0.80 K/cumm [facility] Eosinophil abs 0.10 0.00 - 0.50 K/cumm [facility] Basophil abs 0.02 0.00 - 0.10 K/cumm [facility] Neutrophil pct 67.7 % [facility] Comment: Interpretive Data Percent cell count reference ranges are not reported, since discordance with absolute values may lead to misinterpretation of CBC data. Current Interpretive Data was last revised on 2017. Imm gran pct 0.3 % [facility] Comment: Interpretive Data Percent cell count reference ranges are not reported, since discordance with absolute values may lead to misinterpretation of CBC data. Current Interpretive Data was last revised on 2017. Lymphocyte pct 17.0 % [facility] Comment: Interpretive Data Percent cell count reference ranges are not reported, since discordance with absolute values may lead to misinterpretation of CBC data. Current Interpretive Data was last revised on 2017. Monocyte pct 11.6 % [facility] Comment: Interpretive Data Percent cell count reference ranges are not reported, since discordance with absolute values may lead to misinterpretation of CBC data. Current Interpretive Data was last revised on 2017. Eosinophil pct 2.8 % [facility] Comment: Interpretive Data Percent cell count reference ranges are not reported, since discordance with absolute values may lead to misinterpretation of CBC data. Current Interpretive Data was last revised on 2017. Basophil pct 0.6 % [facility] Comment: Interpretive Data Percent cell count reference ranges are not reported, since discordance with absolute values may lead to misinterpretation of CBC data. Current Interpretive Data was last revised on 2017. Blood 10/26/2024 6:28 AM CDT 10/26/2024 6:44 AM CDT Namrata Spencer NP LAB BLOOD ORDERABLES Final Result Performing Organization Address City/[facility]/ZIP Co de Phone Number [facility] [address] Department of Laboratories [place], [place] [id number] * (ABNORMAL) Thyroid Function [place] (10/26/2024 6:28 AM CDT) Pathologist [facility] TSH 6.60(H) 0.30 - 4.20 mcIUnit/mL Blood 10/26/2024 6:28 AM CDT 10/26/2024 6:44 AM CDT Donte Camacho MD LAB BLOOD ORDERABLES Final Result Performing Organization Address City/[facility] Co de Phone Number [facility] [address] Department [place] [address] * (ABNORMAL) CBC with auto differential (10/26/2024 6:28 AM CDT) Pathologist [facility] WBC 3.52(L) 3.80 - 9.90 K/cumm Hgb 12.0(L) 13.0 - 17.5 g/dL [facility] Hct 35.9(L) 38.9 - 50.3 % [facility] Plt 94(L) 150 - 400 K/cumm [facility] MPV 11.3 9.1 - 12.3 fL [facility] RBC 3.91(L) 4.30 - 5.80 M/cumm [facility] MCV 91.8 81.3 - 96.4 fL [facility] MCH 30.7 27.1 - 33.3 pg [facility] MCHC 33.4 32.3 - 35.7 g/dL [facility] RDW CV 16.2(H) 11.1 - 14.9 % [facility] RDW SD 54.3(H) 35.7 - 48.1 fL [facility] NRBC abs 0.00 0.00 - 0.01 K/cumm [facility] Blood 10/26/2024 6:28 AM CDT 10/26/2024 6:44 AM CDT Namrata Spencer NP LAB BLOOD ORDERABLES Final Result Performing Organization Address [facility] Co de Phone Number [facility] [address] [place] [address] * (ABNORMAL) Protime-INR (10/26/2024 6:28 AM CDT) PT 16.9(H) 9.7 - 13.0 sec INR 1.55(H) 0.90 - 1.20 [facility] Comment: Interpretive data Oral anticoagulant therapeutic ranges: Venous thromboembolism prophylaxis or treatment: 2.0-3.0 CARDIOLOGY Standard range: 2.0-3.0 High-intensity range: 2.5-3.5 Refer to indication-specific guidelines for appropriate target ranges for prosthetic heart valve replacement. Current interpretive data was last revised on 2019. Blood 10/26/2024 6:28 AM CDT 10/26/2024 6:44 AM CDT Luan Guillermo DO LAB BLOOD ORDERABLES Fay l Result Performing Organization Address City/[facility] Co de Phone Number [facility] [address] [place], [place] [id number] * T4, free (10/26/2024 6:28 AM CDT) Free T4 1.43 0.90 - 1.70 ng/dL Blood 10/26/2024 6:28 AM CDT 10/26/2024 6:44 AM CDT Donte Camacho MD LAB BLOOD ORDERABLES Final Result Performing Organization Address [facility] de Phone Number [facility] ROSAL[facility] [address] [facility] [place] [address] * Cortisol (10/26/2024 6:28 AM CDT) Pathologist [facility] Cortisol 15.8 4.8 - 19.5 mcg/dl Comment: Interpretive Data Normal Range: 4.8 - 19.5 mcg/dL; Evening: Half of morning value. This analyte undergoes marked diurnal variation. Ranges indicated apply to morning specimens. Current interpretive data was last revised 2018. Blood 10/26/2024 6:28 AM CDT 10/26/2024 6:44 AM CDT Donte Camacho MD LAB BLOOD ORDERABLES Final Result Performing Organization Address [facility] de Phone Number LAURIE ROSALES [address] [facility] [place] [address] * (ABNORMAL) Basic metabolic panel (10/26/2024 6:28 AM CDT) Sodium 129(L) 135 - 145 mmol/L Potassium, pl 3.9 3.3 - 4.9 mmol/L [facility] Chloride 89(L) 97 - 110 mmol/L [facility] CO2 33(H) 22 - 32 mmol/L [facility] Anion gap 7 2 - 15 mmol/L [facility] BUN 43(H) 6 - 25 mg/dL [facility] Creatinine 1.65(H) 0.80 - 1.30 mg/dL [facility] Glucose 94 70 - 199 mg/dL [facility] Comment: Interpretive Data Fasting glucose >/= 126 [...] 2022. Calcium 8.5 8.5 - 10.3 mg/dL [facility] Blood 10/26/2024 6:28 AM CDT 10/26/2024 6:44 AM CDT Namrata Spencer NP LAB BLOOD ORDERABLES Final Result [facility] [address] Department [place] [address] * (ABNORMAL) eGFR (10/25/2024 6:58 AM CDT) [...] NP LAB BLOOD ORDERABLES Final Result LAURIE [address] [facility] Department [place] [address] * (ABNORMAL) Differential, auto (10/25/2024 6:58 AM CDT) Neutrophil abs 2.57 1.50 - 6.50 K/cumm Imm gran abs 0.01 0.00 - 0.10 K/cumm [facility] Lymphocyte abs 0.46(L) 0.80 - 3.30 K/cumm [facility] Monocyte abs 0.39 0.20 - 0.80 K/cumm [facility] Eosinophil abs 0.09 0.00 - 0.50 K/cumm [facility] Basophil abs 0.02 0.00 - 0.10 K/cumm [facility] Neutrophil pct 72.6 % [facility] Comment: Interpretive Data Percent cell count reference ranges are not reported, since discordance with absolute values may lead to misinterpretation of CBC data. Current Interpretive Data was last revised on 2017. Imm gran pct 0.3 % [facility] Comment: Interpretive Data Percent cell count reference ranges are not reported, since discordance with absolute values may lead to misinterpretation of CBC data. Current Interpretive Data was last revised on 2017. Lymphocyte pct 13.0 % [facility] Comment: Interpretive Data Percent cell count reference ranges are not reported, since discordance with absolute values may lead to misinterpretation of CBC data. Current Interpretive Data was last revised on 2017. Monocyte pct 11.0 % [facility] Comment: Interpretive Data Percent cell count reference ranges are not reported, since discordance with absolute values may lead to misinterpretation of CBC data. Current Interpretive Data was last revised on 2017. Eosinophil pct 2.5 % [facility] Comment: Interpretive Data Percent cell count reference ranges are not reported, since discordance with absolute values may lead to misinterpretation of CBC data. Current Interpretive Data was last revised on 2017. Basophil pct 0.6 % [facility] Comment: Interpretive Data Percent cell count reference ranges are not reported, since discordance with absolute values may lead to misinterpretation of CBC data. Current Interpretive Data was last revised on 2017. Blood 10/25/2024 6:58 AM CDT 10/25/2024 7:21 AM CDT Namrata Spencer NP LAB BLOOD ORDERABLES Final Result [address] Department [employer] [place], [place] [id number] * (ABNORMAL) CBC with auto differential (10/25/2024 [...] NRBC abs 0.00 0.00 - 0.01 K/cumm [facility] Blood 10/25/2024 6:58 AM CDT 10/25/2024 7:21 AM CDT Namrata Spencer NP LAB BLOOD ORDERABLES Final Result LAURIE [address] [place] [address] * (ABNORMAL) Protime-INR (10/25/2024 6:58 AM CDT) PT 18.0(H) 9.7 - 13.0 sec INR 1.65(H) 0.90 - 1.20 [facility] Comment: Interpretive data Oral anticoagulant therapeutic ranges: Venous thromboembolism prophylaxis or treatment: 2.0-3.0 CARDIOLOGY Standard range: 2.0-3.0 High-intensity range: 2.5-3.5 Refer to indication-specific guidelines for appropriate target ranges for prosthetic heart valve replacement. Current interpretive data was last revised on 2019. Blood 10/25/2024 6:58 AM CDT 10/25/2024 7:20 AM CDT us Luan Guillermo DO LAB BLOOD ORDERABLES Fay l Result [facility] [address] Department [place] [address] * (ABNORMAL) Basic metabolic panel (10/25/2024 6:58 AM CDT) Sodium 134(L) 135 - 145 mmol/L Potassium, pl 3.8 3.3 - 4.9 mmol/L [facility] Chloride 93(L) 97 - 110 mmol/L [facility] CO2 34(H) 22 - 32 mmol/L [facility] Anion gap 7 2 - 15 mmol/L [facility] BUN 46(H) 6 - 25 mg/dL [facility] Creatinine 1.70(H) 0.80 - 1.30 mg/dL [facility] Glucose 102 70 - 199 mg/dL [facility] Comment: Interpretive Data Fasting glucose >/= 126 [...] 2022. Calcium 8.6 8.5 - 10.3 mg/dL [facility] Blood 10/25/2024 6:58 AM CDT 10/25/2024 7:21 AM CDT Namrata Dasilva Johanna [employer] LAB BLOOD ORDERABLES Final Result [facility]IE ROSALES [address] Department [place] [address] * XR Chest 1 Vw Portable (10/24/2024 [...] Spencer NP LAB BLOOD ORDERABLES Final Result [facility] [address] Department [place] [address] * (ABNORMAL) Differential, auto (10/24/2024 4:15 AM CDT) Neutrophil abs 2.69 1.50 - 6.50 K/cumm Imm gran abs 0.01 0.00 - 0.10 K/cumm [facility] Lymphocyte abs 0.56(L) 0.80 - 3.30 K/cumm [facility] Monocyte abs 0.42 0.20 - 0.80 K/cumm [facility] Eosinophil abs 0.11 0.00 - 0.50 K/cumm [facility] Basophil abs 0.02 0.00 - 0.10 K/cumm [facility] Neutrophil pct 70.6 % [facility] Comment: Interpretive Data Percent cell count reference [...] revised on 2017. Lymphocyte pct 14.7 % [facility] Comment: Interpretive Data Percent cell count reference ranges are not reported, since discordance with absolute values may lead to misinterpretation of CBC data. Current Interpretive Data was last revised on 2017. Monocyte pct 11.0 % [facility] Comment: Interpretive Data Percent cell count reference ranges are not reported, since discordance with absolute values may lead to misinterpretation of CBC data. Current Interpretive Data was last revised on 2017. Eosinophil pct 2.9 % [facility] Comment: Interpretive Data Percent cell count reference ranges are not reported, since discordance with absolute values may lead to misinterpretation of CBC data. Current Interpretive Data was last revised on 2017. Basophil pct 0.5 % [facility] Comment: Interpretive Data Percent cell count reference ranges are not reported, since discordance with absolute values may lead to misinterpretation of CBC data. Current Interpretive Data was last revised on 2017. Blood 10/24/2024 4:15 AM CDT 10/24/2024 4:39 AM CDT us Namrata Spencer NP LAB BLOOD ORDERABLES Final Result [facility] [address] Department [place] [address] * (ABNORMAL) CBC with auto differential (10/24/2024 4:15 AM CDT) WBC 3.81 3.80 - 9.90 K/cumm Hgb 12.8(L) 13.0 - 17.5 g/dL [facility] Hct 38.2(L) 38.9 - 50.3 % [facility] Plt 81(L) 150 - 400 K/cumm [facility] MPV 12.3 9.1 - 12.3 fL [facility] RBC 4.08(L) 4.30 - 5.80 M/cumm [facility] MCV 93.6 81.3 - 96.4 fL [facility] MCH 31.4 27.1 - 33.3 pg [facility] MCHC 33.5 32.3 - 35.7 g/dL [facility] RDW CV 16.3(H) 11.1 - 14.9 % [facility] RDW SD 55.5(H) 35.7 - 48.1 fL [facility] NRBC abs 0.00 0.00 - 0.01 K/cumm [facility] Blood 10/24/2024 4:15 AM CDT 10/24/2024 4:39 AM CDT Namrata Spencer [employer] LAB BLOOD ORDERABLES Final Result Performing Organization Address City/[facility] Co de Phone Number [facility] [address] [place] [address] * (ABNORMAL) Protime-INR (10/24/2024 4:15 AM CDT) PT 20.5(H) 9.7 - 13.0 sec INR 1.87(H) 0.90 - 1.20 [facility] Comment: Interpretive data Oral anticoagulant therapeutic ranges: Venous thromboembolism prophylaxis or treatment: 2.0-3.0 CARDIOLOGY Standard range: 2.0-3.0 High-intensity range: 2.5-3.5 Refer to indication-specific guidelines for appropriate target ranges for prosthetic heart valve replacement. Current interpretive data was last revised on 2019. Blood 10/24/2024 4:15 AM CDT 10/24/2024 4:39 AM CDT Luan Guillermo DO LAB BLOOD ORDERABLES Fay l Result Performing Organization Address City/[facility]/ZIP Co de Phone Number [facility] [id number] [place] [address] * (ABNORMAL) Basic metabolic panel (10/24/2024 4:15 AM CDT) Sodium 132(L) 135 - 145 mmol/L Potassium, pl 4.2 3.3 - 4.9 mmol/L [facility] Chloride 91(L) 97 - 110 mmol/L [facility] CO2 32 22 - 32 mmol/L [facility] Anion gap 9 2 - 15 mmol/L [facility] BUN 46(H) 6 - 25 mg/dL [facility] Creatinine 1.90(H) 0.80 - 1.30 mg/dL [facility] Comment:Icteric sample, test results may be affected. Glucose 96 70 - 199 mg/dL [facility] Comment: Interpretive Data Fasting glucose >/= 126 [...] 2022. Calcium 8.4(L) 8.5 - 10.3 mg/dL [facility] Blood 10/24/2024 4:15 AM CDT 10/24/2024 4:38 AM CDT Namrata Spencer NP LAB BLOOD ORDERABLES Final Result [facility] [address] Department [place] [address] * XR Chest 1 Vw Portable (10/23/2024 [...] Spencer NP LAB BLOOD ORDERABLES Final Result [facility] [address] [place] [phone] * (ABNORMAL) Differential, auto (10/23/2024 3:35 AM CDT) Neutrophil abs 4.54 1.50 - 6.50 K/cumm Imm gran abs 0.02 0.00 - 0.10 K/cumm [facility] Lymphocyte abs 0.51(L) 0.80 - 3.30 K/cumm [facility] Monocyte abs 0.66 0.20 - 0.80 K/cumm [facility] Eosinophil abs 0.08 0.00 - 0.50 K/cumm [facility] Basophil abs 0.01 0.00 - 0.10 K/cumm [facility] Neutrophil pct 78.0 % [facility] Comment: Interpretive Data Percent cell count reference ranges are not reported, since discordance with absolute values may lead to misinterpretation of CBC data. Current Interpretive Data was last revised on 2017. Imm gran pct 0.3 % [facility] Comment: Interpretive Data Percent cell count reference ranges are not reported, since discordance with absolute values may lead to misinterpretation of CBC data. Current Interpretive Data was last revised on 2017. Lymphocyte pct 8.8 % [facility] Comment: Interpretive Data Percent cell count reference ranges are not reported, since discordance with absolute values may lead to misinterpretation of CBC data. Current Interpretive Data was last revised on 2017. Monocyte pct 11.3 % [facility] Comment: Interpretive Data Percent cell [...] revised on 2017. Basophil pct 0.2 % [facility] Comment: Interpretive Data Percent cell count reference ranges are not reported, since discordance with absolute values may lead to misinterpretation of CBC data. Current Interpretive Data was last revised on 2017. Blood 10/23/2024 3:35 AM CDT 10/23/2024 3:52 AM CDT Namrata Spencer NP LAB BLOOD ORDERABLES Final Result [facility] [address]ALES [address] [place] [address] * (ABNORMAL) CBC with auto differential (10/23/2024 3:35 AM CDT) WBC 5.82 3.80 - 9.90 K/cumm Hgb 13.8 13.0 - 17.5 g/dL [facility] Hct 41.6 38.9 - 50.3 % [facility] Plt 87(L) 150 - 400 K/cumm [facility] MPV 11.7 9.1 - 12.3 fL [facility] RBC 4.44 4.30 - 5.80 M/cumm [facility] MCV 93.7 81.3 - 96.4 fL [facility] MCH 31.1 27.1 - 33.3 pg [facility] MCHC 33.2 32.3 - 35.7 g/dL [facility] RDW CV 16.7(H) 11.1 - 14.9 % [facility] RDW SD 56.9(H) 35.7 - 48.1 fL [facility] NRBC abs 0.00 0.00 - 0.01 K/cumm [facility] Blood 10/23/2024 3:35 AM CDT 10/23/2024 3:52 AM CDT aNmrata Spencer NP LAB BLOOD ORDERABLES Final Result Performing Organization Address City/[facility]/ZIP Co de Phone Number [facility] [id number] Department [place] [address] * (ABNORMAL) Protime-INR (10/23/2024 3:35 AM CDT) PT 30.3(H) 9.7 - 13.0 sec INR 2.75(H) 0.90 - 1.20 [facility] Comment: Interpretive data Oral anticoagulant therapeutic ranges: Venous thromboembolism prophylaxis or treatment: 2.0-3.0 CARDIOLOGY Standard range: 2.0-3.0 High-intensity range: 2.5-3.5 Refer to indication-specific guidelines for appropriate target ranges for prosthetic heart valve replacement. Current interpretive data was last revised on 2019. Blood 10/23/2024 3:35 AM CDT 10/23/2024 3:52 AM CDT Luan Guillermo DO LAB BLOOD ORDERABLES Fay l Result [facility] [address] Department [place] [address] * (ABNORMAL) Basic metabolic panel (10/23/2024 3:35 AM CDT) Sodium 137 135 - 145 mmol/L Potassium, pl 4.1 3.3 - 4.9 mmol/L [facility] Chloride 97 97 - 110 mmol/L [facility] CO2 33(H) 22 - 32 mmol/L [facility] Anion gap 7 2 - 15 mmol/L [facility] BUN 44(H) 6 - 25 mg/dL [facility] Creatinine 1.70(H) 0.80 - 1.30 mg/dL [facility] Glucose 100 70 - 199 mg/dL [facility] Comment: [...] Calcium 8.8 8.5 - 10.3 mg/dL [facility] Blood 10/23/2024 3:35 AM CDT 10/23/2024 3:52 AM CDT Namrata Spencer [employer] LAB BLOOD ORDERABLES Final Result [facility] [address] Department [place] [address] * (ABNORMAL) eGFR (10/22/2024 3:54 [...] LAB BLOOD ORDERABLES Final Result [facility] ROSAL[facility] [address] Department [place] [address] * (ABNORMAL) Differential, auto (10/22/2024 3:54 AM CDT) Neutrophil abs 4.61 1.50 - 6.50 K/cumm Imm gran abs 0.01 0.00 - 0.10 K/cumm [facility] Lymphocyte abs 0.52(L) 0.80 - 3.30 K/cumm [facility] Monocyte abs 0.58 0.20 - 0.80 K/cumm [facility] Eosinophil abs 0.05 0.00 - 0.50 K/cumm [facility] Basophil abs 0.02 0.00 - 0.10 K/cumm [facility] Neutrophil pct 79.6 % [facility] Comment: Interpretive Data Percent cell count reference ranges are not reported, since discordance with absolute values may lead to misinterpretation of CBC data. Current Interpretive Data was last revised on 2017. Imm gran pct 0.2 % [facility] Comment: Interpretive Data Percent cell count reference ranges are not reported, since discordance with absolute values may lead to misinterpretation of CBC data. Current Interpretive Data was last revised on 2017. Lymphocyte pct 9.0 % [facility] Comment: Interpretive Data Percent cell count reference ranges are not reported, since discordance with absolute values may lead to misinterpretation of CBC data. Current Interpretive Data was last revised on 2017. Monocyte pct 10.0 % [facility] Comment: Interpretive Data Percent cell count reference ranges are not reported, since discordance with absolute values may lead to misinterpretation of CBC data. Current Interpretive Data was last revised on 2017. Eosinophil pct 0.9 % [facility] Comment: Interpretive Data Percent cell count reference ranges are not reported, since discordance with absolute values may lead to misinterpretation of CBC data. Current Interpretive Data was last revised on 2017. Basophil pct 0.3 % [facility] Comment: Interpretive Data Percent cell count reference ranges are not reported, since discordance with absolute values may lead to misinterpretation of CBC data. Current Interpretive Data was last revised on 2017. Blood 10/22/2024 3:5 4 AM CDT 10/22/2024 4:23 AM CDT us Namrata Spencer NP LAB BLOOD ORDERABLES Final Result [facility] [address] Department [place] [address] * (ABNORMAL) CBC with auto differential (10/22/2024 3:54 AM CDT) WBC 5.79 3.80 - 9.90 K/cumm Hgb 13.8 13.0 - 17.5 g/dL [facility] Hct 42.0 38.9 - 50.3 % [facility] Plt 104(L) 150 - 400 K/cumm [facility] MPV 12.3 9.1 - 12.3 fL [facility] RBC 4.46 4.30 - 5.80 M/cumm [facility] MCV 94.2 81.3 - 96.4 fL [facility] MCH 30.9 27.1 - 33.3 pg [facility] MCHC 32.9 32.3 - 35.7 g/dL [facility] RDW CV 16.7(H) 11.1 - 14.9 % [facility] RDW SD 57.1(H) 35.7 - 48.1 fL [facility] NRBC abs 0.00 0.00 - 0.01 K/cumm [facility] Blood 10/22/2024 3:54 AM CDT 10/22/2024 4:23 AM CDT Namrata Spencer NP LAB BLOOD ORDERABLES Final Result [facility] [address] Department [place] [address] * (ABNORMAL) Protime-INR (10/22/2024 3:54 AM CDT) PT 28.2(H) 9.7 - 13.0 sec INR 2.56(H) 0.90 - 1.20 [facility] Comment: Interpretive data Oral anticoagulant therapeutic ranges: Venous thromboembolism prophylaxis or treatment: 2.0-3.0 CARDIOLOGY Standard range: 2.0-3.0 High-intensity range: 2.5-3.5 Refer to indication-specific guidelines for appropriate target ranges for prosthetic heart valve replacement. Current interpretive data was last revised on 2019. Blood 10/22/2024 3:54 AM CDT 10/22/2024 4:23 AM CDT Namrata Nyakio [place] [employer] LAB BLOOD ORDERABLES Final Result [facility] [address] Department [place] [address] * Magnesium (10/22/2024 3:54 AM CDT) Pathologist [facility] Magnesium 2.1 1.4 - 2.5 mg/dL Blood 10/22/2024 3:54 AM CDT 10/22/2024 4:24 AM CDT Namrata Spencer LAB BLOOD ORDERABLES Final Result Performing Organization Address City/[facility] Co de Phone Number [facility] ROSALES [address] Department [place] [address] * (ABNORMAL) Basic metabolic panel (10/22/2024 3:54 AM CDT) Pathologist [facility] Sodium 134(L) 135 - 145 mmol/L Potassium, pl 4.3 3.3 - 4.9 mmol/L [facility] Chloride 95(L) 97 - 110 mmol/L [facility] CO2 33(H) 22 - 32 mmol/L [facility] Anion gap 6 2 - 15 mmol/L [facility] BUN 47(H) 6 - 25 mg/dL [facility] Creatinine 1.99(H) 0.80 - 1.30 mg/dL [facility] Comment:Icteric sample, test results may be affected. Glucose 101 70 - 199 mg/dL [facility] Comment: Interpretive Data Fasting glucose >/= 126 [...] 2022. Calcium 8.8 8.5 - 10.3 mg/dL [facility] Blood 10/22/2024 3:54 AM CDT 10/22/2024 4:24 AM CDT Namrata Vidya Spencer NP LAB BLOOD ORDERABLES Final Result [facility] [address] [place] [address] * CT Abdomen Pelvis WO Contrast (10/21/2024 [...] by: Neel Morrison M.D. Delvin Mendenhall MD [facility] [place] [...] Spencer NP LAB BLOOD ORDERABLES Final Result [facility] [address] [place] [address] * (ABNORMAL) Differential, auto (10/21/2024 5:17 AM CDT) Neutrophil abs 3.63 1.50 - 6.50 K/cumm Imm gran abs 0.01 0.00 - 0.10 K/cumm [facility] Lymphocyte abs 0.62(L) 0.80 - 3.30 K/cumm [facility] Monocyte abs 0.51 0.20 - 0.80 K/cumm [facility] Eosinophil abs 0.05 0.00 - 0.50 K/cumm [facility] Basophil abs 0.03 0.00 - 0.10 K/cumm [facility] Neutrophil pct 74.9 % [facility] Comment: Interpretive Data Percent cell count reference ranges are not reported, since discordance with absolute values may lead to misinterpretation of CBC data. Current Interpretive Data was last revised on 2017. Imm gran pct 0.2 % [facility] Comment: Interpretive Data Percent cell count reference ranges are not reported, since discordance with absolute values may lead to misinterpretation of CBC data. Current Interpretive Data was last revised on 2017. Lymphocyte pct 12.8 % [facility] Comment: Interpretive Data Percent cell count reference ranges are not reported, since discordance with absolute values may lead to misinterpretation of CBC data. Current Interpretive Data was last revised on 2017. Monocyte pct 10.5 % [facility] Comment: Interpretive Data Percent cell count reference ranges are not reported, since discordance with absolute values may lead to misinterpretation of CBC data. Current Interpretive Data was last revised on 2017. Eosinophil pct 1.0 % [facility] Comment: Interpretive Data Percent cell count reference ranges are not reported, since discordance with absolute values may lead to misinterpretation of CBC data. Current Interpretive Data was last revised on 2017. Basophil pct 0.6 % [facility] Comment: Interpretive Data Percent cell count reference ranges are not reported, since discordance with absolute values may lead to misinterpretation of CBC data. Current Interpretive Data was last revised on 2017. Blood 10/21/2024 5:17 AM CDT 10/21/2024 6:10 AM CDT Namrata Spencer NP LAB BLOOD ORDERABLES Final Result LAURIE [address] Department [place] [address] * (ABNORMAL) CBC with auto differential (10/21/2024 5:17 AM CDT) WBC 4.85 3.80 - 9.90 K/cumm Hgb 14.6 13.0 - 17.5 g/dL [facility] Hct 45.1 38.9 - 50.3 % [facility] Plt 108(L) 150 - 400 K/cumm [facility] MPV 11.2 9.1 - 12.3 fL [facility] RBC 4.73 4.30 - 5.80 M/cumm [facility] MCV 95.3 81.3 - 96.4 fL [facility] MCH 30.9 27.1 - 33.3 pg [facility] MCHC 32.4 32.3 - 35.7 g/dL [facility] RDW CV 16.8(H) 11.1 - 14.9 % [facility] RDW SD 58.7(H) 35.7 - 48.1 fL [facility] NRBC abs 0.00 0.00 - 0.01 K/cumm [facility] Blood 10/21/2024 5:17 AM CDT 10/21/2024 6:10 AM CDT Namrata Spencer NP LAB BLOOD ORDERABLES Final Result LAURIE [address]ALES [address] [place] [address] * (ABNORMAL) Protime-INR (10/21/2024 5:17 AM CDT) Pathologist [facility] PT 25.7(H) 9.7 - 13.0 sec INR [...] BLOOD ORDERABLES Final Result Performing Organization Address [facility]/ZIP Co de Phone Number LAURIE ROSALES [address] [employer] [place], [place] [id number] * Magnesium (10/21/2024 5:17 AM CDT) [facility] Magnesium 2.1 1.4 - 2.5 mg/dL Blood 10/21/2024 5:17 AM CDT 10/21/2024 6:09 AM CDT Namrata Spencer LAB BLOOD ORDERABLES Final Result LAURIE [address]SOALES [address] [place] [address] * (ABNORMAL) Basic metabolic panel (10/21/2024 5:17 AM CDT) [facility] Sodium 133(L) 135 - 145 mmol/L Potassium, pl 4.5 3.3 - 4.9 mmol/L [facility] Chloride 95(L) 97 - 110 mmol/L [facility] CO2 28 22 - 32 mmol/L [facility] Anion gap 10 2 - 15 mmol/L [facility] BUN 48(H) 6 - 25 mg/dL [facility] Creatinine 2.23(H) 0.80 - 1.30 mg/dL [facility] Glucose 94 70 - 199 mg/dL [facility] Comment: Interpretive Data Fasting glucose >/= 126 [...] 2022. Calcium 8.8 8.5 - 10.3 mg/dL [facility] Blood 10/21/2024 5:17 AM CDT 10/21/2024 6:09 AM CDT Namarta Spencer UTILITY SPRAY OPERATOR LAB BLOOD ORDERABLES Final Result LAURIE [address] Department of Laboratories [place] [id number] * TRANSTHORACIC ECHO (TTE) COMPLETE W DOPPLER/CF W CONTRAST (10/20/2024 1:23 PM CDT) EF Mod BP 37 % CONS SCIMAGE Anatomical Region Laterality Modality Ultrasound 10/20/2024 12:1 1 PM CDT Narrative 10/21/2024 6:43 [place] [address] Echocardiogram Report Patient Name: IAN MONSALVE H : 1940 Study Date: 10/20/2024 12:11:53 PM Gender: M Tech: Location: [id number] Ref Provider: CARLA JEAN Height(Cm): 170 BSA: [...] of hemodynamically significant aortic stenosis by Doppler. Hjconxlk-il-ikrhyf pulmonary hypertension, estimated RVSP 60 mmHg. Moderate tricuspid regurgitation. Electronically Signed By: Clive Godfrey MD, [facility] 10/21/2024 6:43:00 AM CDT Procedure Note Clive Godfrey MD - 10/21/2024 [place] [address] Echocardiogram Report Patient Name: IAN MONSALVE H : 1940 Study Date: 10/20/2024 12:11:53 PM Gender: M Tech: Location: [id number] Ref Provider: CARLA JEAN Height(Cm): 170 BSA: [...] evidence of hemodynamicallysignificant aortic stenosis by Doppler. Scglgnwm-mo-zvdggi pulmonary hypertension, estimated RVSP 60 mmHg.Moderate tricuspid regurgitation. Electronically Signed By: Clive Godfrey MD, [facility] 10/21/2024 6:43:00 AM CDT us Carla Jean [...] AM CDT 10/20/2024 6:43 AM CDT Namrata Vidya Spencer NP LAB BLOOD ORDERABLES Final Result LAURIE [address] [place] [address] * (ABNORMAL) Differential, auto (10/20/2024 6:38 AM CDT) Neutrophil abs 3.55 1.50 - 6.50 K/cumm Imm gran abs 0.01 0.00 - 0.10 K/cumm [facility] Lymphocyte abs 0.72(L) 0.80 - 3.30 K/cumm [facility] Monocyte abs 0.61 0.20 - 0.80 K/cumm [facility] Eosinophil abs 0.03 0.00 - 0.50 K/cumm [facility] Basophil abs 0.02 0.00 - 0.10 K/cumm [facility] Neutrophil pct 71.9 % [facility] Comment: Interpretive Data Percent cell count reference ranges are not reported, since discordance with absolute values may lead to misinterpretation of CBC data. Current Interpretive Data was last revised on 2017. Imm gran pct 0.2 % [facility] Comment: Interpretive Data Percent cell count reference ranges are not reported, since discordance with absolute values may lead to misinterpretation of CBC data. Current Interpretive Data was last revised on 2017. Lymphocyte pct 14.6 % [facility] Comment: Interpretive Data Percent cell count reference ranges are not reported, since discordance with absolute values may lead to misinterpretation of CBC data. Current Interpretive Data was last revised on 2017. Monocyte pct 12.3 % [facility] Comment: Interpretive Data Percent cell count reference ranges are not reported, since discordance with absolute values may lead to misinterpretation of CBC data. Current Interpretive Data was last revised on 2017. Eosinophil pct 0.6 % [facility] Comment: Interpretive Data Percent cell count reference ranges are not reported, since discordance with absolute values may lead to misinterpretation of CBC data. Current Interpretive Data was last revised on 2017. Basophil pct 0.4 % [facility] Comment: Interpretive Data Percent cell count reference ranges are not reported, since discordance with absolute values may lead to misinterpretation of CBC data. Current Interpretive Data was last revised on 2017. Blood 10/20/2024 6:38 AM CDT 10/20/2024 6:43 AM CDT Namrata Julianedeiondejon Spencer NP LAB BLOOD ORDERABLES Final Result Performing Organization Address City/[facility]/ZIP Co de Phone Number LAURIE [address] Department [facility] ([place] [place] [address] * (ABNORMAL) CBC with auto differential (10/20/2024 6:38 AM CDT) WBC 4.94 3.80 - 9.90 K/cumm Hgb 14.2 13.0 - 17.5 g/dL [facility] Hct 43.3 38.9 - 50.3 % [facility] Plt 106(L) 150 - 400 K/cumm [facility] MPV 11.0 9.1 - 12.3 fL [facility] RBC 4.58 4.30 - 5.80 M/cumm [facility] MCV 94.5 81.3 - 96.4 fL [facility] MCH 31.0 27.1 - 33.3 pg [facility] MCHC 32.8 32.3 - 35.7 g/dL [facility] RDW CV 16.8(H) 11.1 - 14.9 % [facility] RDW SD 58.4(H) 35.7 - 48.1 fL [facility] NRBC abs 0.00 0.00 - 0.01 K/cumm [facility] Blood 10/20/2024 6:38 AM CDT 10/20/2024 6:43 AM CDT Namrata Dasilva Johanna [facility] LAB BLOOD ORDERABLES Final Result Performing Organization Address City/[facility]/ZIP Co de Phone Number LAURIE ROS[address]ES [phone] [place] [address] * (ABNORMAL) Protime-INR (10/20/2024 6:38 [...] CDT 10/20/2024 6:43 AM CDT Namrata Spencer LAB BLOOD ORDERABLES Final Result Performing Organization Address [facility] Co de Phone Number LAURIE [address] [facility] [employer] [place], [place] [id number] * Magnesium (10/20/2024 6:38 AM CDT) Pathologist [facility] Magnesium 2.0 1.4 - 2.5 mg/dL Blood 10/20/2024 6:38 AM CDT 10/20/2024 6:42 AM CDT Namrata Spencer LAB BLOOD ORDERABLES Final Result Performing Organization Address [facility] Co de Phone Number LAURIE [address] [facility] [place] [address] * Digoxin level (10/20/2024 6:38 AM CDT) [...] AM CDT 10/20/2024 6:43 AM CDT us Carla Jean MD LAB BLOOD ORDERABLES Final Re sult LAURIE ROSALES [address] [place] [address] * (ABNORMAL) Basic metabolic panel (10/20/2024 6:38 AM CDT) Sodium 133(L) 135 - 145 mmol/L Potassium, pl 4.4 3.3 - 4.9 mmol/L [facility] Chloride 96(L) 97 - 110 mmol/L [facility] CO2 30 22 - 32 mmol/L [facility] Anion gap 10 2 - 15 mmol/L [facility] BUN 46(H) 6 - 25 mg/dL [facility] Creatinine 2.43(H) 0.80 - 1.30 mg/dL [facility] Glucose 106 70 - 199 mg/dL [facility] Comment: Interpretive Data Fasting glucose >/= 126 [...] 2022. Calcium 8.8 8.5 - 10.3 mg/dL [facility] Blood 10/20/2024 6:38 AM CDT 10/20/2024 6:42 AM CDT us Namrata Spencer NP LAB BLOOD ORDERABLES Final Result Performing Organization Address [facility]/ZIP Co de Phone Number LAURIE ROSALES [address] Department [place] [address] * US Retroperitoneal Complete (10/19/2024 3:09 PM CDT) Anatomical Region Laterality Modality Abdomen N/A Ultrasound 10/19/2024 3:22 PM CDT Impressions 10/19/2024 3:22 PM CDT 1. Possible mass in the right kidney measuring up to 1.4 cm. Suggest MRI of the kidneys for further evaluation. 2. Enlarged prostate. Electronically signed by: Santos Medrano II 10/19/2024 3:22 PM CDT EXAMINATION: RENAL ULTRASOUND [...] 5.3 cm Procedure Note Rajendra Oh II, - 10/19/2024 EXAMINATION: RENAL ULTRASOUND Date: 10/19/2024 [...] Rajendra Oh II, D.O. Delvin Mendenhall MD IMG US PROCEDURES Final [...] tendency for uric acid stone formation. Source: [facility] [employer] Current Interpretive Data was last revised on [...] for microscopic UA and culture not met. [facility] Urine 10/19/2024 12:3 3 PM CDT 10/19/2024 12:39 PM CDT Delvin Mendenhall MD LAB MICROBIOLOGY - GENERAL ORD ERABLES Final Result [facility] [address] Department [place] [address] * Strep pneumoniae antigen, urine Urine (10/19/2024 [...] CDT Radha Suggs MD LAB MICROBIOLOGY - [facility] ORDERABLES Final Result Performing Organization Address [facility] de Phone Number BRYNYEE [address] [facility] [place] ([place] [place] [address] * Protein / creatinine ratio, urine, random (10/19/2024 12:33 PM CDT) Protein, ur, quant 5.8 mg/dL Comment: Interpretive Data No reference range established. Current interpretive data was last revised 2018. Creatinine Ur 46.3 mg/dL [facility] Comment: Interpretive Data No reference range established. Current interpretive data was last revised 2018. Protein/creatinin e ratio 125.3 0.0 - 180.0 mg/g CR [facility] Urine 10/19/2024 12:3 3 PM CDT 10/19/2024 12:39 PM CDT Delvin Mendenhall MD LAB URINE ORDERABLES Final Res ult Performing Organization Address [facility] Co de Phone Number [facility] [phone] Department of [employer] [place], [place] [id number] * Legionella antigen Urine (10/19/2024 12:33 PM CDT) Legionella Ag Negative Negative Comment: Interpretive Data This test detects only Legionella pneumophila serogroup 1 antigen. Current interpretive data was last revised on 2019. Urine 10/19/2024 12:3 3 PM CDT 10/19/2024 12:40 PM CDT Radha Suggs MD LAB MICROBIOLOGY - GENE RAL ORDERABLES Final Result Performing Organization Address [facility] Co de Phone Number LAURIE ROSALES [address] Department [facility] [place] ([place] [place] [address] * LETICIA ab ql w/rflx to LETICIA [...] last revised on 2020. Testing performed by: [facility], [address] [place]., [address] Blood 10/19/2024 12:1 5 PM CDT 10/19/2024 2:07 PM CDT us Delvin Mendenhall MD LAB BLOOD ORDERABLES Final Res ult Performing Organization Address [facility] Co de Phone Number BRYNYEE ROSALES [phone] Department [facility] [place] ([place] [place] [address] * ANCA (10/19/2024 12:15 PM CDT) C-ANCA Negative Negative [facility] P-ANCA Negative Negative LAURIE ROSALES Comment: Negative for cANCA and pANCA patterns by immunofluorescence. ADDITIONAL INFORMATION This test was developed and its performance characteristics determined by [facility] in a manner consistent with CLIA requirements. This test has not been cleared or approved by the U.S. Food and Drug Administration. Test Performed by: [facility] [address] [place] [address] Die Cast Engineer: Hayder Arzola Ph.D.; CLIA# [id number] Blood 10/19/2024 12:1 5 PM CDT 10/19/2024 12:19 PM CDT us Delvin Mendenhall MD LAB BLOOD ORDERABLES Final Res ult Performing Organization Address [facility] Co de Phone Number LAURIE [address] [place] [place] [address] [facility] * Erythrocyte sedimentation rate (10/19/2024 12:15 PM CDT) Erythrocyte sedimentation rate 6 1 - 20 mm/hr Comment:Testing performed by : [facility], [place], [address] Blood 10/19/2024 12:1 5 PM CDT 10/19/2024 12:20 PM CDT us Delvin Mendenhall MD LAB BLOOD ORDERABLES Final Res ult Performing Organization Address City/[facility]/ZIP Co de Phone Number LAURIE ROSALES [address] Department [facility] [place] ([place] [place] [address] * C3 complement (10/19/2024 12:15 PM CDT) Complement C3 119 90 - 180 mg/dL Blood 10/19/2024 12:1 5 PM CDT 10/19/2024 12:20 PM CDT us Delvin Mendenhall MD LAB BLOOD ORDERABLES Final Res ult Performing Organization Address City/[facility]/ZIP Co de Phone Number LAURIE ROSALES [phone] [facility] ([facility] [place], [place] [phone] * Hemoglobin A1c (10/19/2024 12:15 PM CDT) Hgb A1C 5.6 4.0 - 5.6 % Estimated Average Glucose 114 mg/dL LAURIE ROSALES Comment: The ADA recommends reporting an estimated Average Glucose (eAG) with all Hemoglobin A1c results using the equation derived from a study of 507 normal and diabetic adults. Minority populations were underrepresented and children were not included. (Diabetes Care 31:9566-7161, 2008). The eAG is not equivalent to a fasting glucose. Blood 10/19/2024 12:1 5 PM CDT 10/19/2024 12:20 PM CDT us Delvin Mendenhall MD LAB BLOOD ORDERABLES Final Res ult LAURIE ROSALES [address] [place] [address] * (ABNORMAL) eGFR (10/19/2024 5:12 AM CDT) [...] CDT 10/19/2024 5:20 AM CDT us Namrata Dasilva Johanna [facility] LAB BLOOD ORDERABLES Final Result [facility] [address] [place] [address] * (ABNORMAL) Differential, auto (10/19/2024 5:12 AM CDT) Neutrophil abs 3.68 1.50 - 6.50 K/cumm Imm gran abs 0.02 0.00 - 0.10 K/cumm [facility] Lymphocyte abs 0.73(L) 0.80 - 3.30 K/cumm [facility] Monocyte abs 0.49 0.20 - 0.80 K/cumm [facility] Eosinophil abs 0.07 0.00 - 0.50 K/cumm [facility] Basophil abs 0.03 0.00 - 0.10 K/cumm [facility] Neutrophil pct 73.3 % [facility] Comment: Interpretive Data Percent cell count reference ranges are not reported, since discordance with absolute values may lead to misinterpretation of CBC data. Current Interpretive Data was last revised on 2017. Imm gran pct 0.4 % [facility] Comment: Interpretive Data Percent cell count reference ranges are not reported, since discordance with absolute values may lead to misinterpretation of CBC data. Current Interpretive Data was last revised on 2017. Lymphocyte pct 14.5 % [facility] Comment: Interpretive Data Percent cell count reference ranges are not reported, since discordance with absolute values may lead to misinterpretation of CBC data. Current Interpretive Data was last revised on 2017. Monocyte pct 9.8 % [facility] Comment: Interpretive Data Percent cell count reference ranges are not reported, since discordance with absolute values may lead to misinterpretation of CBC data. Current Interpretive Data was last revised on 2017. Eosinophil pct 1.4 % [facility] Comment: Interpretive Data Percent cell count reference ranges are not reported, since discordance with absolute values may lead to misinterpretation of CBC data. Current Interpretive Data was last revised on 2017. Basophil pct 0.6 % [facility] Comment: Interpretive Data Percent cell count reference ranges are not reported, since discordance with absolute values may lead to misinterpretation of CBC data. Current Interpretive Data was last revised on 2017. Blood 10/19/2024 5:12 AM CDT 10/19/2024 5:19 AM CDT Namrata Vidya Spencer NP LAB BLOOD ORDERABLES Final Result LAURIE ROSALES [address] Department [facility] [place] ([place] [place] [address] * (ABNORMAL) CBC with auto differential (10/19/2024 5:12 AM CDT) WBC 5.02 3.80 - 9.90 K/cumm Hgb 15.5 13.0 - 17.5 g/dL [facility] Hct 48.5 38.9 - 50.3 % [facility] Plt 125(L) 150 - 400 K/cumm [facility] MPV 11.4 9.1 - 12.3 fL [facility] RBC 5.03 4.30 - 5.80 M/cumm [facility] MCV 96.4 81.3 - 96.4 fL [facility] MCH 30.8 27.1 - 33.3 pg [facility] MCHC 32.0(L) 32.3 - 35.7 g/dL [facility] RDW CV 17.0(H) 11.1 - 14.9 % [facility] RDW SD 59.9(H) 35.7 - 48.1 fL [facility] NRBC abs 0.00 0.00 - 0.01 K/cumm [facility] Blood 10/19/2024 5:12 AM CDT 10/19/2024 5:19 AM CDT Namrata Vidya Spencer NP LAB BLOOD ORDERABLES Final Result LAURIE ROSALES [address] [place] [address] * (ABNORMAL) Protime-INR (10/19/2024 5:12 AM CDT) [facility] PT 34.7(H) 9.7 - 13.0 sec INR 3.14(H) 0.90 - 1.20 [facility] Comment: Interpretive data Oral anticoagulant therapeutic ranges: Venous thromboembolism prophylaxis or treatment: 2.0-3.0 CARDIOLOGY Standard range: 2.0-3.0 High-intensity range: 2.5-3.5 Refer to indication-specific guidelines for appropriate target ranges for prosthetic heart valve replacement. Current interpretive data was last revised on 2019. Blood 10/19/2024 5:12 AM CDT 10/19/2024 5:20 AM CDT Namrata Spencer LAB BLOOD ORDERABLES Final Result Performing Organization Address City/[facility]/ZIP Co de Phone Number LAURIE [address] [facility] [place] [address] * Magnesium (10/19/2024 5:12 AM CDT) [facility] Magnesium 2.0 1.4 - 2.5 mg/dL Blood 10/19/2024 5:12 AM CDT 10/19/2024 5:20 AM CDT Namrata Spencer LAB BLOOD ORDERABLES Final Result Performing Organization Address City/[facility]/ZIP Co de Phone Number BRYNYEE [address] [place] [address] * (ABNORMAL) Basic metabolic panel (10/19/2024 5:12 AM CDT) [facility] Sodium 133(L) 135 - 145 mmol/L Potassium, pl 4.8 3.3 - 4.9 mmol/L [facility] Chloride 96(L) 97 - 110 mmol/L [facility] CO2 30 22 - 32 mmol/L [facility] Anion gap 7 2 - 15 mmol/L [facility] BUN 35(H) 6 - 25 mg/dL [facility] Creatinine 1.83(H) 0.80 - 1.30 mg/dL [facility] Glucose 87 70 - 199 mg/dL [facility] Comment: Interpretive Data Fasting glucose >/= 126 [...] 2022. Calcium 9.2 8.5 - 10.3 mg/dL [facility] Blood 10/19/2024 5:12 AM CDT 10/19/2024 5:20 AM CDT Namrata Spencer UTILITY SPRAY OPERATOR LAB BLOOD ORDERABLES Final Result Performing Organization Address [facility] Co de Phone Number [facility] [address] [place] [address] * (ABNORMAL) Troponin T high-sensitivity 6-hour (10/18/2024 4:32 PM CDT) Trop T hs 51(H) <=22 ng/L Comment: Interpretive Data For further hscTnT resources including the diagnostic algorithm and an aid in interpretation, copy and paste this link: https://nrl.testcatalog.org/show/hsTrop Current Interpretive Data last revised 2020. Trop T hs delta 0 ng/L [facility] Trop T hs interp Insignificant [facility] Blood 10/18/2024 4:32 PM CDT 10/18/2024 4:41 PM CDT Zeke Correa DO LAB BLOOD ORDERABLES Final Res ult Performing Organization Address City/[facility]/ZIP Co de Phone Number [facility] [address] [facility] [place] ([place] [place] [address] * (ABNORMAL) Digoxin level (10/18/2024 [...] CDT 10/18/2024 8:20 PM CDT Namrata Spencer UTILITY SPRAY OPERATOR LAB BLOOD ORDERABLES Final Result Performing Organization Address [facility] Co de Phone Number LAURIE ROSALES [address] [place] [address] * (ABNORMAL) Troponin T high-sensitivity 4-hour (10/18/2024 2:42 PM CDT) Trop T hs 51(H) <=22 ng/L Comment: Interpretive Data For further hscTnT resources including the diagnostic algorithm and an aid in interpretation, copy and paste this link: https://nrl.testcatalog.org/show/hsTrop Current Interpretive Data last revised 2020. Trop T hs delta 0 ng/L [facility] Trop T hs interp Insignificant [facility] Blood 10/18/2024 2:42 PM CDT 10/18/2024 2:50 PM CDT Zeke Correa DO LAB BLOOD ORDERABLES Final Res ult LAURIE BOBBY [address] Department [facility] ([place] [place] [address] * CT Chest WO Contrast (10/18/2024 2:00 [...] Report: No growth Comment:Testing performed by : [facility], [address] [facility] [place] [address] Blood (Peripheral) 10/18/2024 1:28 PM CDT 10/18/2024 5:03 PM CDT Ozzie SULLIVAN - 10/23/2024 7:00 AM CDT From a [...] performance characteristics have been verified by the [facility]. For questions about this culture, contact the Microbiology Laboratory at [phone]. Interpretive data was last revised on 24. Zeke Correa DO LAB MICROBIOLOGY - GENERAL ORD ERABLES Final Result LAURIE ROSALES [address] [place] [address] * Blood culture Blood Peripheral (10/18/2024 1:28 PM CDT) Report Final Report: No growth Comment:Testing performed by : [facility], [address] [place]., [address] Blood (Peripheral) 10/18/2024 1:28 PM CDT 10/18/2024 [...] performance characteristics have been verified by the [facility]. For questions about this culture, contact the Microbiology Laboratory at [phone]. Interpretive data was last revised on 24. Zeke Correa DO LAB MICROBIOLOGY - GENERAL ORD ERABLES Final Result Performing Organization Address [facility]/ZIP Co de Phone Number LAURIE ROSALES [address] [place] [address] * (ABNORMAL) Troponin T high-sensitivity 2-hour (10/18/2024 12:26 PM CDT) Trop T hs 54(H) <=22 ng/L Comment: Interpretive Data For further hscTnT resources including the diagnostic algorithm and an aid in interpretation, copy and paste this link: https://nrl.testcatalog.org/show/hsTrop Current Interpretive Data last revised 2020. Trop T hs delta 3 ng/L [facility] Trop T hs interp Insignificant [facility] Blood 10/18/2024 12:2 6 PM CDT 10/18/2024 12:26 PM CDT Zeke Correa DO LAB BLOOD ORDERABLES Final Res ult Performing Organization Address City/[facility]/ZIP Co de Phone Number LAURIE ROSALES [address] Department [facility] ([place] [place] [address] * (ABNORMAL) Pro B-type natriuretic peptide (10/18/2024 [...] CDT 10/18/2024 1:15 PM CDT us Zeke Correa DO LAB BLOOD ORDERABLES Final Res ult LAURIE [address] [place] [address] * XR Chest 1 Vw Portable (10/18/2024 [...] BLOOD ORDERABLES Edited Re sult - Final LAURIE [address] [place] [address] * Lactate (10/18/2024 10:41 AM CDT) Lactate 1.3 0.7 - 2.0 mmol/L Blood 10/18/2024 10:4 1 AM CDT 10/18/2024 10:49 AM CDT Zeke Correa DO LAB BLOOD ORDERABLES Final Res ult Performing Organization Address [facility] Co de Phone Number LAURIE ROSALES [phone] [place] [address] * (ABNORMAL) eGFR (10/18/2024 10:41 [...] CDT 10/18/2024 10:56 AM CDT us Zeke Connelly Correa DO LAB BLOOD ORDERABLES Final Res ult Performing Organization Address City/[facility]/ZIP Co de Phone Number LAURIE ROSALES [address] [address] Department [facility] ([facility] [place] [address] * Differential, auto (10/18/2024 10:41 AM CDT) Neutrophil abs 3.39 1.50 - 6.50 K/cumm Imm gran abs 0.01 0.00 - 0.10 K/cumm [facility] Lymphocyte abs 0.86 0.80 - 3.30 K/cumm [facility] Monocyte abs 0.44 0.20 - 0.80 K/cumm [facility] Eosinophil abs 0.03 0.00 - 0.50 K/cumm [facility] Basophil abs 0.02 0.00 - 0.10 K/cumm [facility] Neutrophil pct 71.4 % [facility] Comment: Interpretive Data Percent cell count reference ranges are not reported, since discordance with absolute values may lead to misinterpretation of CBC data. Current Interpretive Data was last revised on 2017. Imm gran pct 0.2 % [facility] Comment: Interpretive Data Percent cell count reference ranges are not reported, since discordance with absolute values may lead to misinterpretation of CBC data. Current Interpretive Data was last revised on 2017. Lymphocyte pct 18.1 % [facility] Comment: Interpretive Data Percent cell count reference ranges are not reported, since discordance with absolute values may lead to misinterpretation of CBC data. Current Interpretive Data was last revised on 2017. Monocyte pct 9.3 % [facility] Comment: Interpretive Data Percent cell count reference ranges are not reported, since discordance with absolute values may lead to misinterpretation of CBC data. Current Interpretive Data was last revised on 2017. Eosinophil pct 0.6 % [facility] Comment: Interpretive Data Percent cell count reference ranges are not reported, since discordance with absolute values may lead to misinterpretation of CBC data. Current Interpretive Data was last revised on 2017. Basophil pct 0.4 % [facility] Comment: Interpretive Data Percent cell count reference ranges are not reported, since discordance with absolute values may lead to misinterpretation of CBC data. Current Interpretive Data was last revised on 2017. Blood 10/18/2024 10:4 1 AM CDT 10/18/2024 10:56 AM CDT us Zeke G. Correa DO LAB BLOOD ORDERABLES Final Res ult LAURIE [address] [place] [address] * Respiratory pathogen panel Nasopharyngeal (10/18/2024 10:41 AM CDT) Influenza A RNA Not Detected Not Detected [facility] Influenza B RNA Not Detected Not Detected [facility] RSV RNA Not Detected Not Detected [facility] COVID-19 RNA Not Detected Not Detected [facility] Coronavirus 229E RNA Not Detected Not Detected [facility] Coronavirus HKU1 RNA Not Detected Not Detected [facility] Coronavirus NL63 RNA Not Detect[facility] Not Detected [facility] Coronavirus OC43 RNA Not Detected Not Detected [facility] Adenovirus DNA Not Detected Not Detected [facility] Metapneumovirus RNA Not Detected Not Detected [facility] Rhinovirus/Enterov irus RNA Not Detected Not Detected [facility] Parainfluenza 1 RNA Not Detected Not Detected [facility] Parainfluenza 2 RNA Not Detected Not Detected [facility] Parainfluenza 3 RNA Not Detected Not Detected [facility] Parainfluenza 4 RNA Not Detected Not Detected [facility] B. pertussis DNA Not Detected Not Detected [facility] B. parapertussis DNA Not Detected Not Detected [facility] C. pneumoniae DNA Not Detected Not Detected [facility] M. pneumoniae DNA Not Detected Not Detected [facility] Comment: Interpretive Data The ZIRX FilmArray Respiratory Panel (RP2.1) assay is a [...] assay has FDA clearance for testing of UTILITY SPRAY OPERATOR swabs. The performance characteristics of this assay have been determined by [facility]. Current interpretive data was last revised on 2020. Nasopharyngeal 10/18/2024 10 :41 AM CDT 10/18/2024 10:53 AM CDT Narrative LAURIE - 10/18/2024 12:10 PM CDT Is the Patient experiencing symptoms consistent with COVID?->Yes Surveillance testing for transplant patient?->No Zeke Correa DO LAB MICROBIOLOGY - GENERAL ORD ERABLES Final Result LAURIE [address] Department [place] [address] * (ABNORMAL) CBC with auto differential (10/18/2024 10:41 AM CDT) [facility] WBC 4.75 3.80 - 9.90 K/cumm Hgb 15.5 13.0 - 17.5 g/dL [facility] Hct 47.4 38.9 - 50.3 % [facility] Plt 132(L) 150 - 400 K/cumm [facility] MPV 12.2 9.1 - 12.3 fL [facility] RBC 4.95 4.30 - 5.80 M/cumm [facility] MCV 95.8 81.3 - 96.4 fL [facility] MCH 31.3 27.1 - 33.3 pg [facility] MCHC 32.7 32.3 - 35.7 g/dL [facility] RDW CV 17.1(H) 11.1 - 14.9 % [facility] RDW SD 59.9(H) 35.7 - 48.1 fL [facility] NRBC abs 0.00 0.00 - 0.01 K/cumm [facility] Blood 10/18/2024 10:4 1 AM CDT 10/18/2024 10:56 AM CDT us Zeke Correa DO LAB BLOOD ORDERABLES Final Res ult [facility] [address] [address] Department [place] [address] * (ABNORMAL) Comprehensive metabolic panel (10/18/2024 10:41 AM CDT) Sodium 132(L) 135 - 145 mmol/L Potassium, pl 5.0(H) 3.3 - 4.9 mmol/L [facility] Chloride 97 97 - 110 mmol/L [facility] CO2 28 22 - 32 mmol/L [facility] Anion gap 7 2 - 15 mmol/L [facility] BUN 29(H) 6 - 25 mg/dL [facility] Creatinine 1.62(H) 0.80 - 1.30 mg/dL [facility] Comment:Icteric sample, test results may be affected. Glucose 90 70 - 199 mg/dL [facility] Comment: Interpretive Data Fasting glucose >/= 126 [...] ORDERABLES Final Res ult Performing Organization Address City/[facility] Co de Phone Number [facility] [address] [address] Department of Laboratories [place] [phone] * ECG 12 lead (10/18/2024 10:33 AM CDT) 10/18/2024 10:3 3 AM CDT Narrative [facility] - 10/18/2024 2:59 PM CDT Vent Rate: 80 bpm RR Interval: 749 msec CO Interval: 140 msec QRS Duration: 164 msec QT Interval: 377 msec QTC Interval: 412 msec P-R-T Waterflow: -52 - 226 - 226 degrees IMPRESSION: ELECTRONIC VENTRICULAR PACEMAKER ST DEPRESSION, CONSIDER SUBENDOCARDIAL INJURY [0.1+ mV ST DEPRESSION] ABNORMAL ECG No change compared to prior EKG Electronically Signed By: Emilio Ratliff MD B Zeke Correa DO ECG ORDERABLES Final Result Performing Organization Address City/[facility] Co de Phone Number [facility] from Last 3 Months Insurance MEDICARE [facility] MEDICARE SUPPLEMENT [facility] MEDICARE [facility] MEDICARE Advance Directives For more information, please contact: [phone] Documents on File Type Date Recorded Patient Online Communications Manager Expl anation ADVANCE DIRECTIVE 02/25/2023 4:32 PM [...] 5:03 PM 02/24/2023 6:21 PM Care Teams Pricing/Signage Team Member Relationship Specialty Start Date End Date Sharita Kelly MD [address] [address] PCP - General Family Medicine 02/24/23 Donte Camacho MD [address] [place] [address] Consulting Physician Cardiology 02/24/23 Delvin Mendenhall MD [address] [place] [address] Consulting Physician Nephrology 02/24/23 [place] [address] [facility] [address] [place] [address] Consulting Physician Pulmonary Disease 11/03/24 Lorie Murray, UTILITY SPRAY OPERATOR [address] [facility] [address] [place] [address] Nurse Practitioner Urology 11/03/24
--- OUTSIDE RECORDS SUMMARY | 2024-11-04 08:00 | XMS_ITS | Data Portability ---
Author Organization [facility]ITALCharleneTrafalgar [facility] Address [address] [place] [address] Assessment No assessment recorded. Plan of Treatment Reminders Order Date Submit Date Provider Last Modified By Organization Details Last Modified Time Details Appointments None record ed. Lab None record ed. Referral None record ed. Procedures None record ed. Surgeries None record ed. Imaging None record ed. Medication Orders None record ed. Patient TargetsNo targets recorded. Patient InstructionsNo instructions recorded. Reason for Referral None Reported. Results Created Date Observation Date Name Description Value Unit Range Abnormal Flag Note LastModifiedBy Organization Detail LastModifiedTime 10/01/19 24 10/01/2023 US, duple x, abdom inal aorta No observ ation record ed. [email or web address] [address], [place], [address], 10/08/2023 15:40:46 11/27/19 24 11/27/2023 US, echoc ardio gram No observ ation record ed. [facility] [address], [place], [address], 12/09/2023 12:40:29 Result Notes None recorded. Medical Equipment None Reported. Allergies No known drug allergies Medications Name Sig Start Date Stop Date Status Note LastModified by Organization Details LastModified Time furosemide 40 mg tablet active Not Available Not Available Not Available atorvastatin 20 mg tablet active Not Available Not Available No t Available cephalexin 250 mg capsule active Not Available Not Available N ot Available levothyroxine 25 mcg tablet Take 1 tablet every day by oral route. active Not Available Not Available No t Available magnesium oxide 400 mg (241.3 mg magnesium) tablet active Not Available Not Available Not Available trazodone 100 mg tablet active Not Available Not Available Not Available warfarin 5 mg tablet active Not Available Not Available Not Available sertraline 25 mg tablet active Not Available Not Available Not Available clorazepate dipotassium 15 mg tablet active Not Available Not Available No t Available lisinopril 5 mg tablet active Not Available Not Available Not Available ergocalciferol (vitamin D2) 1,250 mcg (50,000 unit) capsule active Not Available Not Available Not Available atenolol 50 mg tablet active Not Available Not Available Not Available calcitriol 0.25 mcg capsule active Not Available Not Available Not Available finasteride 5 mg tablet active Not Available Not Available Not Available nitrofurantoin monohydrate/macr ocrystals 100 mg capsule active Not Available Not Available Not Available fenofibrate nanocrystallized 145 mg tablet active Not Available Not Availabl e Not Available Vitals None Recorded Social History None recorded. Functional Status None recorded. Mental Status None recorded. Family History Nothing Reported. Medical History No medical history recorded. Immunizations Vaccine Type Date Status Note Provider Nam e and Address Organization Details Recorded Time COVID-19, mRNA, LNP-S, PF, 100 mcg/0.5mL dose or 50 mcg/0.25mL dose 06/22/2020 completed Vandana Hernandez LPN null, [place] - [facility] 06/24/2020 11:49:55 COVID-19, mRNA, LNP-S, PF, 100 mcg/0.5mL dose or 50 mcg/0.25mL dose 07/23/2020 completed Sonya Ramirez MA null, [place] - [facility] 07/23/2020 10:36:09 Past Encounters Encounter ID Performer Location Encounter Start Date Encounter Closed Date Diagnosis/Indication Diagnosis SNOMED-CT Code Diagnosis ICD10 Code Diagnosis Note [id number] MD Derek Mcbride 14 IM [address] [facility] [place] [address] 06/22/2020 12:15:01 06/24/2020 12:28:29 Administration of SARS-CoV-2 antigen vaccine 868612607 Z23 [id number] MD Derek Mcbride [address] IM [address] [place] [address] 07/20/2020 12:03:04 07/23/2020 09:05:47 Administration of SARS-CoV-2 antigen vaccine [id number] Z23 Health Concerns Section Related Observation LastModified by Organization Detai ls LastModified Time None Recorded Concern Status LastModified by Organization Details LastModified Time None Recorded Advance Directives Directive None Recorded Payers Insurance Date Sequence Insurance Name Policy Number Policy Manning Covered Member ID Manning Member ID Guarantor Name 07/23/2023 2 [employer] SUPPLEMENTAL - [employer] (MEDICARE SUPPLEMENT) Ian Jones [id number] Ian Jones 07/23/2023 1 [place] Ian Jones [id number] Ian Jones 07/23/2023 [place] [facility] Ian Jones [id number] Ian Jones
--- OUTSIDE RECORDS SUMMARY | 2024-11-04 08:00 | XMS_ITS | Encounter Summary ---
Author Organization [facility] Address [address] [place] [address] Care Team Providers Care Brake Linings Coater Name Role Phone Sharita Kelly MD Primary Care Provider Donte Camacho MD Unavailable Delvin Mendenhall MD Unavailable [phone] Shailesh Pabon MD Unavailable Lorie uMrray SHEAR OPERATOR Unavailable [phone] Encounter Details Date Type Department Care Team (Late st Contact Info) Description 11/03/2024 3:44 PM CDT Hospital Encounter [facility] [address] [place] [address] Social History Tobacco Use Types Packs/Day Years Used Date Smoking Tobacco: Former Cigarettes 1 956 - 1997 Passive Smoke Exposure: Past Smokeless Tobacco: Never [facility] Utilities Answer Date Recorded In the past 12 months has [employer], gas, oil, or water company threatened to shut off services in your [...] 10/19/2024 How often do you attend chur ch or hinduism services? More than 4 times per year 10/19/2024 Do you belong to any clubs o r organizations such as religious groups, unions, fraternal or athletic groups, or [...] place to sleep or slept in a prison (including now)? No 02/24/2023 Housing Stability Vital Sign Answer Carmine e Recorded In the last 12 months, was t here a time when you were not able to pay the mortgage or rent on time? No 10/19/2024 In the past 12 months, how m any times have you moved where you were living? 0 10/19/2024 At any time in the past 12 m [facility], were you homeless or living in a prison (including now)? No 10/19/2024 Personal Safety Answer Date Recorded Have you ever been in or are you currently in a harmful physical or emotional relationship or is someone making you feel afraid or unsafe? 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 Gender Identity Not on file Sexual Orientation Not on file documented as of this encounter Plan of Treatment Not on file documented as of this encounter Visit Diagnoses Not on filedocumented in this encounter Care Teams Brake Linings Coater Relationship Specialty Start Date End Date Sharita Kelly MD [address] [place] [address] PCP - General Family Medicine 02/24/23 Donte Camacho MD [address] [place] [address] Consulting Physician Cardiology 02/24/23 Delvin Mendenhall MD [address] [place] [address] Consulting Physician Nephrology 02/24/23 [place] [address] [address] [facility] [address] [place] [address] Consulting Physician Pulmonary Disease 11/03/24 Lorie Murray, SHEAR OPERATOR [address] [address] [facility] [address] [place] [address] Nurse Practitioner Urology 11/03/24 documented as of this encounter
[2024-11-04 08:03] LABS: Basophils Percent Auto 0.5 % (0.2-1.2); Eosinophils Percent Auto 0.6 % (0-4.4); Hematocrit 42.5 % (42.0-52.0); Hemoglobin 13.6 g/dL (14.0-18.0); Immature Granulocyte Absolute 0.06 K/mm3 (0.00-0.031); Lymphocytes Absolute Auto 0.52 K/mm3 (0.9-3.2); Lymphocytes Percent Auto 8.2 % (18.3-44.2); Mean Corpuscular Hemoglobin 30.9 pg (26-34); Mean Corpuscular Volume 96.6 fl (80-100); Mean Platelet Volume 11.6 fl (7.4-10.4); Monocytes Absolute Auto 0.3 K/mm3 (0.1-0.6); Monocytes Percent Auto 5.2 % (2.6-8.5); Neutrophils Absolute Auto 5.3 K/mm3 (1.3-6.7); Neutrophils Percent Auto 84.5 % (45.5-73.1); Platelet Count Result 221 k/mm3 (150-375); Red Cell Distribution Width 16.1 % (11.5-14.5); White Blood Count 6.3 K/mm3 (4.5-10.0)
[2024-11-04 08:03] LABS: Alveolar/Arterial O2 Gradient 338.9 mmHg; Base Excess ABG 3.1 mEq/l (+/-2.0); Carboxyhemoglobin 1.2 % THb (0-2.0); Fractional Inspired Oxygen 70 %; HCO3 ABG 32.3 mEq/l (22.0-26.0); Methemoglobin ABG 0.1 %THb (0-1.5); Oxygen Content ABG 18.7 %vol (16.0-22.0); Oxygen Saturation ABG 94.3 % (95.0-100.0); Oxyhemoglobin 94.3 % THb (90.0-100.0); PO2 ABG 82.6 mmHg (80.0-100.0); PO2 FiO2 Ratio Arterial Blood 1.18 %; Reduced Hemoglobin 4.4 %THb (0-5.0); Total Hemoglobin 14.1 g/dL (12.0-18.0); pH ABG 7.269 (7.350-7.450)
[2024-11-04 08:04] LABS: Device NON-INVASIVE VENT; Non-Invasive Expiratory Pressure 8 CMH2O; Non-Invasive Inspiratory Pressure 16 CMH2O; Non-Invasive Vent Rate 12 /MIN; PCO2 ABG 72.2 mmHg (35.0-45.0); Site Drawn RIGHT BRACHIAL
[2024-11-04 08:12] LABS: Alanine Aminotransferase 24 U/L (6-50); Albumin Level 3.3 g/dL (3.5-5.1); Alkaline Phosphatase 75 U/L (38-126); Anion Gap 8 mmol/L (4-12); Aspartate Amino Transferase 51 U/L (17-59); Bilirubin,Total 1.2 mg/dL (0.2-1.3); Blood Urea Nitrogen 30 mg/dL (9-20); Calcium 8.8 mg/dL (8.4-10.2); Carbon Dioxide 31 mmol/L (22-30); Chloride 91 mmol/L (98-107); Estimated CRCL calculation 39 ml/min; Estimated Glomerular Filt Rate 53; Glucose 97 mg/dL (65-110); Potassium 4.4 mmol/L (3.4-5.0); Sodium 130 mmol/L (137-145); Total Protein 6.5 g/dL (6.3-8.2)
--- NOTE | 2024-11-04 08:17 | PC.NURSE ---
Addendum entered by Joyce Barrow [facility] 11/04/24 08:18: MAUREEN foster. Original Note: patient catheter replaced. waiting on urine output from new catheter to collect urine sample.
[2024-11-04 08:21] LABS: INR 2.7; Prothrombin Time 27.4 Seconds (11.1-14.7)
[2024-11-04 08:25] LABS: Partial Thromboplastin Time 43.4 Seconds (22.3-36.8)
[2024-11-04 08:30] LABS: NT Pro B Type Natriuretic Pept 10100 pg/mL (19.9-100); Troponin I 0.079 ng/mL (0.000-0.034)
[2024-11-04] MEDS: FUROSEMIDE INJ 40 MG/4 ML VIAL IV PUSH (09:13)
--- NOTE | 2024-11-04 09:25 | PC.NURSE ---
Spoke with transfer center at [facility]. They will call when bed is available.
--- NOTE | 2024-11-04 09:34 | PC.NURSE ---
Spoke with on the phone. 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 states she will come to hospital to speak with staff. ERP aware.
[2024-11-04 09:38] LABS: Alveolar/Arterial O2 Gradient 138.1 mmHg; Base Excess ABG 0.9 mEq/l (+/-2.0); Carboxyhemoglobin 1.3 % THb (0-2.0); Fractional Inspired Oxygen 40 %; Methemoglobin ABG 0.3 %THb (0-1.5); Oxygen Content ABG 17.4 %vol (16.0-22.0); Oxygen Saturation ABG 93.2 % (95.0-100.0); Oxyhemoglobin 92.6 % THb (90.0-100.0); PO2 ABG 75.6 mmHg (80.0-100.0); PO2 FiO2 Ratio Arterial Blood 1.89 %; Reduced Hemoglobin 5.8 %THb (0-5.0); Total Hemoglobin 13.3 g/dL (12.0-18.0)
[2024-11-04 09:39] LABS: Device NON-INVASIVE VENT; Modified Allen's Test Pass; PCO2 ABG 62.2 mmHg (35.0-45.0); Site Drawn RIGHT RADIAL; pH ABG 7.286 (7.350-7.450)
[2024-11-04 09:40] LABS: Non-Invasive Expiratory Pressure 8 CMH2O; Non-Invasive Inspiratory Pressure 16 CMH2O; Non-Invasive Vent Rate 12 /MIN
[2024-11-04 10:42] LABS: Add Urine Microscopic? YES; Appearance Urine Cloudy (Clear); Color Urine Brown (Yellow)
[2024-11-04 10:43] LABS: Bilirubin Urine 1+ (Negative); Blood Urine 3+ (Negative); Glucose Urine UA Negative (Negative); Ketones Urine Negative (Negative); Leukocyte Esterase Ur Trace LEU/UL (Negative); Nitrate Urine Negative (Negative); Protein Urine 2+ mg/dL (Negative); Specific Grav Ur >= 1.030 (1.001-1.035); pH Urine 5.5 (5.0-9.0)
[2024-11-04 10:46] LABS: Bacteria Urine None Seen /hpf; Need Manual Microscopic Reviewed; RBC Urine >100 /hpf (0-2); Squamous Epithelial Cell Urine Occasional /hpf (Few); WBC Urine 21-50 /hpf (0-3)
--- NOTE | 2024-11-04 11:26 | PCCCNOTE ---
1100-Called to the ED to speak with pt and family about hospice. Pt. , Eliu, would like to use [facility]. 1120- Call placed to [facility], faxed pt. referral. Spoke with Cassy Roche will come to the bedside to speak with pt and family.
--- NOTE | 2024-11-04 11:26 | PC.NURSE ---
Bedside report received from Alyce REDDY
[2024-11-04] MEDS: LORazepam INJ (*CRX) 2 MG/ML VIAL 0.5 MG IV PUSH (13:26)
[2024-11-04] MEDS: HYDROmorphone HCL INJ (*CRX) 2 MG/ML VIAL 0.5 MG IV PUSH (14:34)
== END 2024-11-04 14:31 | disposition hospice, inpatient (51) ==
LOC: ANHED 07:56
PROVIDERS: Emergency Provider Emergency Medicine; PCP Family Medicine
DX: R06.03 Acute respiratory distress (principal); I50.9 Heart failure, unspecified; Z51.5 Encounter for palliative care; I25.2 Old myocardial infarction; I73.9 Peripheral vascular disease, unspecified; E03.9 Hypothyroidism, unspecified; E78.00 Pure hypercholesterolemia, unspecified; N40.0 Benign prostatic hyperplasia without lower urinary tract symptoms; M19.90 Unspecified osteoarthritis, unspecified site; Z66 Do not resuscitate; Z95.810 Presence of automatic (implantable) cardiac defibrillator; Z95.1 Presence of aortocoronary bypass graft; Z79.899 Other long term (current) drug therapy; Z79.01 Long term (current) use of anticoagulants
CPT/HCPCS: 36415; 36600; 71045; 80053; 81001; 82375; 82805; 83050; 83880; 84484; 85018; 85025; 85610; 85730; 87086; 93005; 94002; 96374; 96375; 99285; J1171; J1938; J2060

== ENCOUNTER 2024-11-04 14:32 | HOS | payer OTHER, MEDICARE, SELFPAY ==
--- OUTSIDE RECORDS SUMMARY | 2024-11-04 15:07 | XMS_ITS | Clinical Summary ---
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 01/08/20 19 Active atorvastatin (LIPITOR) [...] mouth daily 025 Discontin ued(Error ) multivit sjjswmdj-srdo-TQ-ca lcium (THERA-M) 9 mg iron-400 mcg tabletIndications:V itamin Deficiency Prevention Take 1 tablet by mouth daily 025 Discontin ued(Error ) digoxin (LANOXIN) 250 mcg (0.25 mg) tablet Take 1 tablet (250 mcg total) by mouth 3 (three) times a week on Thu, Thu, Thu10/08/19 025 Discontin ued(Stop Taking at Discharge ) Active Problems Problem Noted Date Diagnosed Date Acute congestive heart failu re, unspecified heart failure type 10/18/2024 Palpitations 02/23/2023 Encounters Date Type Department Care Team Description 11/04/2024 Hospital Encounter [facility] ADMIT [id number] [place] [address] Max Phillips MD 11/03/2024 3:44 PM CDT Hospital Encounter [facility] AMBULANCE BILLING [id number] [place] [address] 10/18/2024 10:28 AM CDT - 11/03/2024 3:41 PM CDT Hospital Encounter [facility] Oncology [id number] [place] [address]69 Zeke Correa DO Ogunremi, Olumide Omolulu, MD Rudomiotov, Olga, MD Burton, Jeffrey Ryan, Ryan Shook MD Acute congestive heart failure, unspecified heart [...] Years Used Date Smoking Tobacco: Former Cigarettes - 1997 Passive Smoke Exposure: Past Smokeless Tobacco: Never Tobacco Cessation:Counseling Given: Not Answered [facility] Utilities Answer Date Recorded In the past 12 months has [employer], gas, oil, or water [employer] threatened to shut off services in your [...] week 10/19/2024 How often do you attend [facility] or baptism services? More than 4 times per year 10/19/2024 Do you belong to any clubs o r organizations such as adventism groups, unions, fraternal or athletic groups, or [...] any time in the past 12 [place], were you homeless or living in a prison (including now)? No 10/19/2024 Personal Safety Answer Date Recorded Have you ever been in or are you currently in a harmful physical or emotional relationship or is someone making you feel afraid or unsafe? 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 73 m2 Comment: [...] MD LAB BLOOD ORDERABLES Final Resu lt [facility] [address] Department of Laboratories [place], [place] [id number] * (ABNORMAL) Differential, auto (11/03/2024 6:28 AM CDT) Neutrophil abs 2.83 1.50 - 6.50 K/cumm Imm gran abs 0.04 0.00 - 0.10 K/cumm [facility] Lymphocyte abs 0.56(L) 0.80 - 3.30 K/cumm [facility] Monocyte abs 0.38 0.20 - 0.80 K/cumm [facility] Eosinophil abs 0.12 0.00 - 0.50 K/cumm [facility] Basophil abs 0.02 0.00 - 0.10 K/cumm [facility] Neutrophil pct 71.7 % [facility] Comment: Interpretive Data Percent cell count reference ranges are not reported, since discordance with absolute values may lead to misinterpretation of CBC data. Current Interpretive Data was last revised on 2017. Imm gran pct 1.0 % [facility] Comment: Interpretive Data Percent cell [...] revised on 2017. Monocyte pct 9.6 % [facility] Comment: Interpretive Data Percent cell count reference ranges are not reported, since discordance with absolute values may lead to misinterpretation of CBC data. Current Interpretive Data was last revised on 2017. Eosinophil pct 3.0 % [facility] Comment: Interpretive Data Percent cell count reference ranges are not reported, since discordance with absolute values may lead to misinterpretation of CBC data. Current Interpretive Data was last revised on 2017. Basophil pct 0.5 % [facility] Comment: Interpretive Data Percent cell count reference ranges are not reported, since discordance with absolute values may lead to misinterpretation of CBC data. Current Interpretive Data was last revised on 2017. Blood 11/03/2024 6:28 AM CDT 11/03/2024 6:49 AM CDT Namrata Spencer KNIFE GLAZER LAB BLOOD ORDERABLES Final Result [facility] [address] Department [place] [address] * (ABNORMAL) CBC with auto differential (11/03/2024 6:28 AM CDT) WBC 3.95 3.80 - 9.90 K/cumm Hgb 12.0(L) 13.0 - 17.5 g/dL [facility] Hct 36.4(L) 38.9 - 50.3 % [facility] Plt 143(L) 150 - 400 K/cumm [facility] MPV 11.7 9.1 - 12.3 fL [facility] RBC 3.85(L) 4.30 - 5.80 M/cumm [facility] MCV 94.5 81.3 - 96.4 fL [facility] MCH 31.2 27.1 - 33.3 pg [facility] MCHC 33.0 32.3 - 35.7 g/dL [facility] RDW CV 16.5(H) 11.1 - 14.9 % [facility] RDW SD 57.1(H) 35.7 - 48.1 fL [facility] NRBC abs 0.00 0.00 - 0.01 K/cumm [facility] Blood 11/03/2024 6:28 AM CDT 11/03/2024 6:49 AM CDT Namrata Spencer KNIFE GLAZER LAB BLOOD ORDERABLES Final Result [facility] ROSALES [address] Department [place] [address] * (ABNORMAL) Protime-INR (11/03/2024 6:28 AM CDT) PT 42.2(H) 9.7 - 13.0 sec INR 3.80(H) 0.90 - 1.20 [facility] Comment: Interpretive data Oral anticoagulant therapeutic ranges: Venous thromboembolism prophylaxis or treatment: 2.0-3.0 CARDIOLOGY Standard range: 2.0-3.0 High-intensity range: 2.5-3.5 Refer to indication-specific guidelines for appropriate target ranges for prosthetic heart valve replacement. Current interpretive data was last revised on 2019. Blood 11/03/2024 6:28 AM CDT 11/03/2024 6:48 AM CDT Luan Guillermo DO LAB BLOOD ORDERABLES Fay l Result [facility] BOBBY [address] Department [place] [address] * (ABNORMAL) Renal function panel (11/03/2024 6:28 AM CDT) Sodium 133(L) 135 - 145 mmol/L Potassium, pl 3.6 3.3 - 4.9 mmol/L [facility] Chloride 94(L) 97 - 110 mmol/L [facility] CO2 31 22 - 32 mmol/L [facility] Anion gap 8 2 - 15 mmol/L [facility] BUN 25 6 - 25 mg/dL [facility] Creatinine 1.22 0.80 - 1.30 mg/dL [facility] Glucose 118 70 - 199 mg/dL [facility] Comment: Interpretive Data Fasting glucose >/= [...] 2022. Calcium 8.1(L) 8.5 - 10.3 mg/dL [facility] Phosphorus, pl 2.4 2.3 - 4.5 mg/dL [facility] Albumin 2.8(L) 3.5 - 5.0 g/dL [facility] Blood 11/03/2024 6:28 AM CDT 11/03/2024 6:47 AM CDT us Ryan Bailey MD LAB BLOOD ORDERABLES Final Resu lt [facility] [address] Department [place] [address] * (ABNORMAL) eGFR (11/02/2024 7:24 [...] MD LAB BLOOD ORDERABLES Final Resu lt [facility] [address] Department [place] [address] * (ABNORMAL) Differential, auto (11/02/2024 7:24 AM CDT) Neutrophil abs 3.09 1.50 - 6.50 K/cumm Imm gran abs 0.02 0.00 - 0.10 K/cumm [facility] Lymphocyte abs 0.54(L) 0.80 - 3.30 K/cumm [facility] Monocyte abs 0.35 0.20 - 0.80 K/cumm [facility] Eosinophil abs 0.09 0.00 - 0.50 K/cumm [facility] Basophil abs 0.02 0.00 - 0.10 K/cumm [facility] Neutrophil pct 75.2 % [facility] Comment: Interpretive Data Percent cell count reference ranges are not reported, since discordance with absolute values may lead to misinterpretation of CBC data. Current Interpretive Data was last revised on 2017. Imm gran pct 0.5 % [facility] Comment: Interpretive Data Percent cell count reference ranges are not reported, since discordance with absolute values may lead to misinterpretation of CBC data. Current Interpretive Data was last revised on 2017. Lymphocyte pct 13.1 % [facility] Comment: Interpretive Data Percent cell count reference ranges are not reported, since discordance with absolute values may lead to misinterpretation of CBC data. Current Interpretive Data was last revised on 2017. Monocyte pct 8.5 % [facility] Comment: Interpretive Data Percent cell count reference ranges are not reported, since discordance with absolute values may lead to misinterpretation of CBC data. Current Interpretive Data was last revised on 2017. Eosinophil pct 2.2 % [facility] Comment: Interpretive Data Percent cell count reference ranges are not reported, since discordance with absolute values may lead to misinterpretation of CBC data. Current Interpretive Data was last revised on 2017. Basophil pct 0.5 % [facility] Comment: Interpretive Data Percent cell count reference ranges are not reported, since discordance with absolute values may lead to misinterpretation of CBC data. Current Interpretive Data was last revised on 2017. Blood 11/02/2024 7:24 AM CDT 11/02/2024 7:29 AM CDT Namrata Spencer NP LAB BLOOD ORDERABLES Final Result [facility] [address] Department [place] [address] * (ABNORMAL) CBC with auto differential (11/02/2024 7:24 AM CDT) WBC 4.11 3.80 - 9.90 K/cumm Hgb 12.2(L) 13.0 - 17.5 g/dL [facility] Hct 36.7(L) 38.9 - 50.3 % [facility] Plt 147(L) 150 - 400 K/cumm [facility] MPV 11.0 9.1 - 12.3 fL [facility] RBC 3.90(L) 4.30 - 5.80 M/cumm [facility] MCV 94.1 81.3 - 96.4 fL [facility] MCH 31.3 27.1 - 33.3 pg [facility] MCHC 33.2 32.3 - 35.7 g/dL [facility] RDW CV 16.6(H) 11.1 - 14.9 % [facility] RDW SD 57.5(H) 35.7 - 48.1 fL [facility] NRBC abs 0.00 0.00 - 0.01 K/cumm [facility] Blood 11/02/2024 7:24 AM CDT 11/02/2024 7:29 AM CDT Namrata Lewismercy KNIFE GLAZER LAB BLOOD ORDERABLES Final Result Performing Organization Address City/[facility]/ZIP Co de Phone Number LAURIE ROSALES [address] [address] [facility] [place] [address] * (ABNORMAL) Protime-INR (11/02/2024 7:24 AM CDT) PT 43.7(H) 9.7 - 13.0 sec INR 3.93(H) 0.90 - 1.20 [facility] Comment: Interpretive data Oral anticoagulant therapeutic ranges: Venous thromboembolism prophylaxis or treatment: 2.0-3.0 CARDIOLOGY Standard range: 2.0-3.0 High-intensity range: 2.5-3.5 Refer to indication-specific guidelines for appropriate target ranges for prosthetic heart valve replacement. Current interpretive data was last revised on 2019. Blood 11/02/2024 7:24 AM CDT 11/02/2024 7:30 AM CDT Luan Messina Guillermo DO LAB BLOOD ORDERABLES Fay l Result Performing Organization Address City/[facility] Co de Phone Number LAURIE ROSALES [address] [place] [address] * (ABNORMAL) Renal function panel (11/02/2024 7:24 AM CDT) Sodium 135 135 - 145 mmol/L Potassium, pl 3.7 3.3 - 4.9 mmol/L [facility] Chloride 96(L) 97 - 110 mmol/L [facility] CO2 32 22 - 32 mmol/L [facility] Anion gap 7 2 - 15 mmol/L [facility] BUN 29(H) 6 - 25 mg/dL [facility] Creatinine 1.27 0.80 - 1.30 mg/dL [facility] Glucose 119 70 - 199 mg/dL [facility] Comment: Interpretive Data Fasting glucose >/= [...] 2022. Calcium 8.4(L) 8.5 - 10.3 mg/dL [facility] Phosphorus, pl 2.5 2.3 - 4.5 mg/dL [facility] Albumin 2.9(L) 3.5 - 5.0 g/dL [facility] Blood 11/02/2024 7:24 AM CDT 11/02/2024 7:29 AM CDT us Ryan Bailey MD LAB BLOOD ORDERABLES Final Resu lt [facility] [address] Department [place] [address] * XR Chest Pa Lateral 2 Views [...] LAB BLOOD ORDERABLES Final Resu lt [facility] [address] Department [place] [address] * (ABNORMAL) Differential, auto (11/01/2024 4:00 AM CDT) Neutrophil abs 2.11 1.50 - 6.50 K/cumm Imm gran abs 0.01 0.00 - 0.10 K/cumm [facility] Lymphocyte abs 0.44(L) 0.80 - 3.30 K/cumm [facility] Monocyte abs 0.30 0.20 - 0.80 K/cumm [facility] Eosinophil abs 0.10 0.00 - 0.50 K/cumm [facility] Basophil abs 0.01 0.00 - 0.10 K/cumm [facility] Neutrophil pct 71.1 % [facility] Comment: Interpretive Data Percent cell count reference ranges are not reported, since discordance with absolute values may lead to misinterpretation of CBC data. Current Interpretive Data was last revised on 2017. Imm gran pct 0.3 % [facility] Comment: Interpretive Data Percent cell count reference ranges are not reported, since discordance with absolute values may lead to misinterpretation of CBC data. Current Interpretive Data was last revised on 2017. Lymphocyte pct 14.8 % [facility] Comment: Interpretive Data Percent cell count reference ranges are not reported, since discordance with absolute values may lead to misinterpretation of CBC data. Current Interpretive Data was last revised on 2017. Monocyte pct 10.1 % [facility] Comment: Interpretive Data Percent cell count reference ranges are not reported, since discordance with absolute values may lead to misinterpretation of CBC data. Current Interpretive Data was last revised on 2017. Eosinophil pct 3.4 % [facility] Comment: Interpretive Data Percent cell count reference ranges are not reported, since discordance with absolute values may lead to misinterpretation of CBC data. Current Interpretive Data was last revised on 2017. Basophil pct 0.3 % [facility] Comment: Interpretive Data Percent cell count reference ranges are not reported, since discordance with absolute values may lead to misinterpretation of CBC data. Current Interpretive Data was last revised on 2017. Blood 11/01/2024 4:00 AM CDT 11/01/2024 4:22 AM CDT us Namrata Spencer NP LAB BLOOD ORDERABLES Final Result LAURIE [address] Department [place] [address] * (ABNORMAL) CBC with auto differential (11/01/2024 4:00 AM CDT) WBC 2.97(L) 3.80 - 9.90 K/cumm Hgb 12.1(L) 13.0 - 17.5 g/dL [facility] Hct 36.3(L) 38.9 - 50.3 % [facility] Plt 133(L) 150 - 400 K/cumm [facility] MPV 11.9 9.1 - 12.3 fL [facility] RBC 3.91(L) 4.30 - 5.80 M/cumm [facility] MCV 92.8 81.3 - 96.4 fL [facility] MCH 30.9 27.1 - 33.3 pg [facility] MCHC 33.3 32.3 - 35.7 g/dL [facility] RDW CV 16.0(H) 11.1 - 14.9 % [facility] RDW SD 54.2(H) 35.7 - 48.1 fL [facility] NRBC abs 0.00 0.00 - 0.01 K/cumm [facility] Blood 11/01/2024 4:00 AM CDT 11/01/2024 4:22 AM CDT Namrata Spencer NP LAB BLOOD ORDERABLES Final Result [facility] [address] Department [place] [address] * (ABNORMAL) Protime-INR (11/01/2024 4:00 AM CDT) PT 29.6(H) 9.7 - 13.0 sec INR 2.69(H) 0.90 - 1.20 [facility] Comment: Interpretive data Oral anticoagulant therapeutic ranges: Venous thromboembolism prophylaxis or treatment: 2.0-3.0 CARDIOLOGY Standard range: 2.0-3.0 High-intensity range: 2.5-3.5 Refer to indication-specific guidelines for appropriate target ranges for prosthetic heart valve replacement. Current interpretive data was last revised on 2019. Blood 11/01/2024 4:00 AM CDT 11/01/2024 4:23 AM CDT us Luan Guillermo DO LAB BLOOD ORDERABLES Fay l Result Performing Organization Address City/State/[facility] [place] [address] [address] Department [place] [address] * (ABNORMAL) Renal function panel (11/01/2024 4:00 [...] ORDERABLES Final Resu lt Performing Organization Address City/State/[facility] Co de Phone Number LAURIE ROSALES [address] Department [place] [address] * (ABNORMAL) eGFR (10/31/2024 12:06 AM CDT) [...] ORDERABLES Final Res ult Performing Organization Address City/[facility]/ZIP Co de Phone Number BRYNYEE ROSALES [address] Department [place] [address] * (ABNORMAL) Differential, auto (10/31/2024 12:06 AM CDT) Neutrophil abs 2.10 1.50 - 6.50 K/cumm Imm gran abs 0.01 0.00 - 0.10 K/cumm [facility] Lymphocyte abs 0.43(L) 0.80 - 3.30 K/cumm [facility] Monocyte abs 0.41 0.20 - 0.80 K/cumm [facility] Eosinophil abs 0.07 0.00 - 0.50 K/cumm [facility] Basophil abs 0.01 0.00 - 0.10 K/cumm [facility] Neutrophil pct 69.4 % [facility] Comment: Interpretive Data Percent cell count reference ranges are not reported, since discordance with absolute values may lead to misinterpretation of CBC data. Current Interpretive Data was last revised on 2017. Imm gran pct 0.3 % [facility] Comment: Interpretive Data Percent cell count reference ranges are not reported, since discordance with absolute values may lead to misinterpretation of CBC data. Current Interpretive Data was last revised on 2017. Lymphocyte pct 14.2 % [facility] Comment: Interpretive Data Percent cell count reference ranges are not reported, since discordance with absolute values may lead to misinterpretation of CBC data. Current Interpretive Data was last revised on 2017. Monocyte pct 13.5 % [facility] Comment: Interpretive Data Percent cell count reference ranges are not reported, since discordance with absolute values may lead to misinterpretation of CBC data. Current Interpretive Data was last revised on 2017. Eosinophil pct 2.3 % [facility] Comment: Interpretive Data Percent cell count reference ranges are not reported, since discordance with absolute values may lead to misinterpretation of CBC data. Current Interpretive Data was last revised on 2017. Basophil pct 0.3 % [facility] Comment: Interpretive Data Percent cell count reference ranges are not reported, since discordance with absolute values may lead to misinterpretation of CBC data. Current Interpretive Data was last revised on 2017. Blood 10/31/2024 12:0 6 AM CDT 10/31/2024 12:13 AM CDT us Namrata Spencer KNIFE GLAZER LAB BLOOD ORDERABLES Final Result LAURIE ROSALES [address] Department [place] [address] * (ABNORMAL) Pro B-type natriuretic [...] Eur Heart J. 2006:27:330-337. 2. Daryl RW, Bernabe AM. J. AM Roger Cardiol: Cardiovasc Imag. 2009;2: 216- 225. Interpretive Data Last Revised Date: 2018. Blood 10/31/2024 12:0 6 AM CDT 10/31/2024 12:13 AM CDT us Ryan Bailey MD LAB BLOOD ORDERABLES Final Resu lt [facility] [address] Department [place] [address] * (ABNORMAL) CBC with auto differential (10/31/2024 12:06 AM CDT) Pathologist [facility] WBC 3.03(L) 3.80 - 9.90 K/cumm Hgb 11.3(L) 13.0 - 17.5 g/dL [facility] Hct 33.1(L) 38.9 - 50.3 % [facility] Plt 124(L) 150 - 400 K/cumm [facility] MPV 11.4 9.1 - 12.3 fL [facility] RBC 3.65(L) 4.30 - 5.80 M/cumm [facility] MCV 90.7 81.3 - 96.4 fL [facility] MCH 31.0 27.1 - 33.3 pg [facility] MCHC 34.1 32.3 - 35.7 g/dL [facility] RDW CV 15.1(H) 11.1 - 14.9 % [facility] RDW SD 50.5(H) 35.7 - 48.1 fL [facility] NRBC abs 0.00 0.00 - 0.01 K/cumm [facility] Blood 10/31/2024 12:0 6 AM CDT 10/31/2024 12:13 AM CDT Namrata Spencer KNIFE GLAZER LAB BLOOD ORDERABLES Final Result Performing Organization Address [facility] de Phone Number LAURIE ROSALES [address] [place] [address] * (ABNORMAL) Protime-INR (10/31/2024 12:06 AM CDT) PT 18.9(H) 9.7 - 13.0 sec INR 1.73(H) 0.90 - 1.20 [facility] Comment: Interpretive data Oral anticoagulant therapeutic [...] ORDERABLES Fay l Result Performing Organization Address City/[facility] Co de Phone Number LAURIE [address] Department [place] [address] * (ABNORMAL) Basic metabolic panel (10/31/2024 12:06 AM CDT) Sodium 123(C) 135 - 145 mmol/L Comment:Critical Result call ed to and read back by Gracy Bey, DATE: 2024-10-31 00:59:18 BY: Silverio Parr Potassium, pl 3.7 3.3 - 4.9 mmol/L [facility] Chloride 89(L) 97 - 110 mmol/L [facility] CO2 30 22 - 32 mmol/L [facility] Anion gap 4 2 - 15 mmol/L [facility] BUN 32(H) 6 - 25 mg/dL [facility] Creatinine 1.26 0.80 - 1.30 mg/dL [facility] Glucose 106 70 - 199 mg/dL [facility] Comment: Interpretive Data Fasting glucose >/= [...] 2022. Calcium 7.6(L) 8.5 - 10.3 mg/dL [facility] Blood 10/31/2024 12:0 6 AM CDT 10/31/2024 12:13 AM CDT us Delvin Mendenhall MD LAB BLOOD ORDERABLES Final Res ult [facility]IE [address] Department [place] [address] * XR Chest 1 View (10/30/2024 7:26 [...] MD LAB BLOOD ORDERABLES Final Res ult [facility] [address] [address] Department [place] [address] * (ABNORMAL) Basic metabolic panel (10/30/2024 4:03 PM CDT) Sodium 121(C) 135 - 145 mmol/L Comment:Critical Result call ed to and read back by Dinora Meier, DATE: 2024-10-30 17:26:18 BY: Georgiana Devine Potassium, pl 4.0 3.3 - 4.9 mmol/L [facility] Chloride 85(L) 97 - 110 mmol/L [facility] CH CO2 26 22 - 32 mmol/L [facility] CH Anion gap 10 2 - 15 mmol/L [facility] CH BUN 30(H) 6 - 25 mg/dL [facility] Creatinine 1.19 0.80 - 1.30 mg/dL [facility] Glucose 110 70 - 199 mg/dL [facility] Comment: Interpretive Data Fasting glucose [...] Calcium 7.8(L) 8.5 - 10.3 mg/dL [facility] Blood 10/30/2024 4:03 PM CDT 10/30/2024 4:53 PM CDT Delvin Mendenhall MD LAB BLOOD ORDERABLES Final Res ult Performing Organization Address City/[facility] Co de Phone Number LAURIE ROSALES [address] [place] [address] * eGFR (10/30/2024 7:25 AM CDT) eGFR [...] ORDERABLES Final Res ult Performing Organization Address [facility] Co de Phone Number LAURIE ROSALES [address] [place] [address] * (ABNORMAL) Pro B-type natriuretic peptide (10/30/2024 [...] ORDERABLES Final Resu lt Performing Organization Address [facility] [place] [address] [address] [place] [address] * (ABNORMAL) TSH (10/30/2024 7:25 AM CDT) Thyroid Stimulating Hormone 5.74(H) 0.30 - 4.20 mcIUnit/mL Blood 10/30/2024 7:25 AM CDT 10/30/2024 11:01 AM CDT us Delvin Mendenhall MD LAB BLOOD ORDERABLES Final Res ult Performing Organization Address [facility] [place] [address] [address] [place] [address] * (ABNORMAL) Basic metabolic panel (10/30/2024 7:25 [...] CH Glucose 104 70 - 199 mg/dL [facility] Comment: [...] 2022. Calcium 7.8(L) 8.5 - 10.3 mg/dL [facility] Blood 10/30/2024 7:25 AM CDT 10/30/2024 8:31 AM CDT us Delvin Mendenhall MD LAB BLOOD ORDERABLES Final Res ult [facility] [address] Department [place] [address] * (ABNORMAL) eGFR (10/30/2024 12:26 AM [...] MD LAB BLOOD ORDERABLES Final Res ult [facility] [address] Department [place] [address] * (ABNORMAL) Differential, auto (10/30/2024 12:26 AM CDT) Neutrophil abs 2.64 1.50 - 6.50 K/cumm Imm gran abs 0.04 0.00 - 0.10 K/cumm [facility] Lymphocyte abs 0.56(L) 0.80 - 3.30 K/cumm [facility] Monocyte abs 0.49 0.20 - 0.80 K/cumm [facility] Eosinophil abs 0.08 0.00 - 0.50 K/cumm [facility] Basophil abs 0.01 0.00 - 0.10 K/cumm [facility] Neutrophil pct 69.1 % [facility] Comment: Interpretive Data Percent cell count reference ranges are not reported, since discordance with absolute values may lead to misinterpretation of CBC data. Current Interpretive Data was last revised on 2017. Imm gran pct 1.0 % LAURIE Comment: Interpretive Data Percent cell count reference ranges are not reported, since discordance with absolute values may lead to misinterpretation of CBC data. Current Interpretive Data was last revised on 2017. Lymphocyte pct 14.7 % [facility] Comment: Interpretive Data Percent cell count reference ranges are not reported, since discordance with absolute values may lead to misinterpretation of CBC data. Current Interpretive Data was last revised on 2017. Monocyte pct 12.8 % [facility] Comment: Interpretive Data Percent cell count reference ranges are not reported, since discordance with absolute values may lead to misinterpretation of CBC data. Current Interpretive Data was last revised on 2017. Eosinophil pct 2.1 % [facility] Comment: Interpretive Data Percent cell count reference ranges are not reported, since discordance with absolute values may lead to misinterpretation of CBC data. Current Interpretive Data was last revised on 2017. Basophil pct 0.3 % [facility] Comment: Interpretive Data Percent cell count reference ranges are not reported, since discordance with absolute values may lead to misinterpretation of CBC data. Current Interpretive Data was last revised on 2017. Blood 10/30/2024 12:2 6 AM CDT 10/30/2024 12:40 AM CDT Namrata Spencer NP LAB BLOOD ORDERABLES Final Result [facility] [address] Department [place] [address] * (ABNORMAL) CBC with auto differential (10/30/2024 12:26 AM CDT) WBC 3.82 3.80 - 9.90 K/cumm Hgb 12.2(L) 13.0 - 17.5 g/dL [facility] Hct 35.6(L) 38.9 - 50.3 % [facility] Plt 122(L) 150 - 400 K/cumm [facility] MPV 11.9 9.1 - 12.3 fL [facility] RBC 3.89(L) 4.30 - 5.80 M/cumm [facility] MCV 91.5 81.3 - 96.4 fL [facility] MCH 31.4 27.1 - 33.3 pg [facility] MCHC 34.3 32.3 - 35.7 g/dL [facility] RDW CV 15.2(H) 11.1 - 14.9 % [facility] RDW SD 51.4(H) 35.7 - 48.1 fL [facility] NRBC abs 0.00 0.00 - 0.01 K/cumm [facility] Blood 10/30/2024 12:2 6 AM CDT 10/30/2024 12:40 AM CDT Namrata Spencer [employer] LAB BLOOD ORDERABLES Final Result Performing Organization Address [facility] Co de Phone Number [facility] [address] [place] [address] * (ABNORMAL) Protime-INR (10/30/2024 12:26 AM CDT) PT 18.9(H) 9.7 - 13.0 sec INR 1.73(H) 0.90 - 1.20 [facility] Comment: Interpretive data Oral anticoagulant therapeutic [...] ORDERABLES Fay l Result Performing Organization Address City/[facility]/ZIP Co de Phone Number [facility] [address] [place] [address] * (ABNORMAL) Basic metabolic panel (10/30/2024 12:26 AM CDT) Sodium 119(C) 135 - 145 mmol/L Comment:Critical Result call ed to and read back by Sherrell Howard, DATE: 2024-10-30 01:24:16 BY: Rose Mary Anne Potassium, pl 3.8 3.3 - 4.9 mmol/L [facility] Chloride 83(L) 97 - 110 mmol/L [facility] CO2 29 22 - 32 mmol/L [facility] Anion gap 7 2 - 15 mmol/L [facility] BUN 32(H) 6 - 25 mg/dL [facility] Creatinine 1.25 0.80 - 1.30 [facility] Glucose 117 70 - 199 mg/dL [facility] Comment: Interpretive Data Fasting glucose >/= [...] 2022. Calcium 7.8(L) 8.5 - 10.3 mg/dL [facility] Blood 10/30/2024 12:2 6 AM CDT 10/30/2024 12:40 AM CDT us Delvin Mendenhall MD LAB BLOOD ORDERABLES Final Res ult [facility] [address] Department [place] [address] * (ABNORMAL) eGFR (10/29/2024 9:15 PM CDT) [...] MD LAB BLOOD ORDERABLES Final Res ult [facility] [address] Department [place] [address] * (ABNORMAL) Basic metabolic panel (10/29/2024 9:15 PM CDT) Sodium 118(C) 135 - 145 mmol/L Comment:Critical Result call ed to and read back by Letitia Bey, DATE: 2024-10-29 22:05:05 BY: Rose Mary Anne Potassium, pl 4.0 3.3 - 4.9 mmol/L [facility] Chloride 82(L) 97 - 110 mmol/L [facility] CO2 27 22 - 32 mmol/L [facility] Anion gap 9 2 - 15 mmol/L [facility] BUN 31(H) 6 - 25 mg/dL [facility] Creatinine 1.26 0.80 - 1.30 mg/dL [facility] Glucose 128 70 - 199 mg/dL [facility] Comment: Interpretive Data Fasting glucose >/= [...] 2022. Calcium 7.9(L) 8.5 - 10.3 mg/dL [facility] Blood 10/29/2024 9:15 PM CDT 10/29/2024 9:19 PM CDT us Delvin Mendenhall MD LAB BLOOD ORDERABLES Final Res ult Performing Organization Address City/[facility]/ZIP Co de Phone Number LAURIE [address] Department [place] [address] * (ABNORMAL) eGFR (10/29/2024 3:45 AM CDT) [...] LAB BLOOD ORDERABLES Final Result LAURIE ROSALES [address] Department of Laboratories [place], [place] [id number] * (ABNORMAL) Differential, auto (10/29/2024 3:45 AM CDT) Neutrophil abs 2.19 1.50 - 6.50 K/cumm Imm gran abs 0.02 0.00 - 0.10 K/cumm [facility] Lymphocyte abs 0.56(L) 0.80 - 3.30 K/cumm [facility] Monocyte abs 0.41 0.20 - 0.80 K/cumm [facility] Eosinophil abs 0.09 0.00 - 0.50 K/cumm [facility] Basophil abs 0.03 0.00 - 0.10 K/cumm [facility] Neutrophil pct 66.4 % [facility] Comment: Interpretive Data Percent cell count reference ranges are not reported, since discordance with absolute values may lead to misinterpretation of CBC data. Current Interpretive Data was last revised on 2017. Imm gran pct 0.6 % [facility] Comment: Interpretive Data Percent cell count reference ranges are not reported, since discordance with absolute values may lead to misinterpretation of CBC data. Current Interpretive Data was last revised on 2017. Lymphocyte pct 17.0 % [facility] Comment: Interpretive Data Percent cell count reference ranges are not reported, since discordance with absolute values may lead to misinterpretation of CBC data. Current Interpretive Data was last revised on 2017. Monocyte pct 12.4 % [facility] Comment: Interpretive Data Percent cell count reference ranges are not reported, since discordance with absolute values may lead to misinterpretation of CBC data. Current Interpretive Data was last revised on 2017. Eosinophil pct 2.7 % [facility] Comment: Interpretive Data Percent cell count reference ranges are not reported, since discordance with absolute values may lead to misinterpretation of CBC data. Current Interpretive Data was last revised on 2017. Basophil pct 0.9 % [facility] Comment: Interpretive Data Percent cell count reference ranges are not reported, since discordance with absolute values may lead to misinterpretation of CBC data. Current Interpretive Data was last revised on 2017. Blood 10/29/2024 3:45 AM CDT 10/29/2024 4:28 AM CDT Namrata Spencer NP LAB BLOOD ORDERABLES Final Result LAURIE ROSALES [address] Department of Laboratories [place], [place] [id number] * (ABNORMAL) CBC with auto differential (10/29/2024 3:45 AM CDT) Pathologist [facility] WBC 3.30(L) 3.80 - 9.90 K/cumm Hgb 11.9(L) 13.0 - 17.5 g/dL [facility] Hct 35.3(L) 38.9 - 50.3 % [facility] Plt 120(L) 150 - 400 K/cumm [facility] MPV 12.5(H) 9.1 - 12.3 fL [facility] RBC 3.79(L) 4.30 - 5.80 M/cumm [facility] MCV 93.1 81.3 - 96.4 fL [facility] MCH 31.4 27.1 - 33.3 pg [facility] MCHC 33.7 32.3 - 35.7 g/dL [facility] RDW CV 15.7(H) 11.1 - 14.9 % [facility] RDW SD 53.3(H) 35.7 - 48.1 fL [facility] NRBC abs 0.00 0.00 - 0.01 K/cumm [facility] Blood 10/29/2024 3:45 AM CDT 10/29/2024 4:28 AM CDT Namrata Spencer NP LAB BLOOD ORDERABLES Final Result Performing Organization Address [facility]/ZIP Co de Phone Number LAURIE ROSALES [address] [place] [address] * (ABNORMAL) Protime-INR (10/29/2024 3:45 AM CDT) Pathologist [facility] PT 17.0(H) 9.7 - 13.0 sec INR 1.56(H) 0.90 - 1.20 [facility] Comment: Interpretive data Oral anticoagulant therapeutic ranges: Venous thromboembolism prophylaxis or treatment: 2.0-3.0 CARDIOLOGY Standard range: 2.0-3.0 High-intensity range: 2.5-3.5 Refer to indication-specific guidelines for appropriate target ranges for prosthetic heart valve replacement. Current interpretive data was last revised on 2019. Blood 10/29/2024 3:45 AM CDT 10/29/2024 4:28 AM CDT Luan Siddharth Guillermo DO LAB BLOOD ORDERABLES Fay l Result [facility] [address] Department [place] [address] * (ABNORMAL) Basic metabolic panel (10/29/2024 3:45 AM CDT) Sodium 126(L) 135 - 145 mmol/L Potassium, pl 3.9 3.3 - 4.9 mmol/L [facility] Chloride 85(L) 97 - 110 mmol/L [facility] CO2 33(H) 22 - 32 mmol/L [facility] Anion gap 8 2 - 15 mmol/L [facility] BUN 34(H) 6 - 25 mg/dL [facility] Creatinine 1.53(H) 0.80 - 1.30 mg/dL [facility] Glucose 96 70 - 199 mg/dL [facility] Comment: Interpretive Data Fasting glucose >/= [...] 2022. Calcium 8.3(L) 8.5 - 10.3 mg/dL [facility] Blood 10/29/2024 3:45 AM CDT 10/29/2024 4:27 AM CDT Namrata Spencer [employer] LAB BLOOD ORDERABLES Final Result LAURIE ROSALES [address] [place] [address] * Sodium, urine, random (10/28/2024 12:12 PM CDT) Sodium, ur 21 mmol/L Comment: Interpretive Data No reference range established. Current interpretive data was last revised 2018. Urine (Urine, Clean Catch) 10/28/2024 12:12 PM CDT 10/28/2024 12:26 PM CDT us Ryan Bailey MD LAB URINE ORDERABLES Final Resu lt Performing Organization Address [facility] Co de Phone Number LAURIE ROSALES [address] [place] [address] * Potassium, urine, random (10/28/2024 12:12 PM CDT) Potassium conc, ur 11.0 mmol/L Comment: Interpretive Data No reference range established. Current interpretive data was last revised 2018. Urine (Urine, Clean Catch) 10/28/2024 12:12 PM CDT 10/28/2024 12:26 PM CDT Result Heather Bailey MD LAB URINE ORDERABLES Final Resu lt Performing Organization Address City/[facility]/ZIP Co de Phone Number LAURIE ROSALES [address] Department [place] [address] * Osmolality, urine (10/28/2024 12:12 PM CDT) Osmo, ur 123 mOsm/kg Comment:Testing performed by : [facility], [address] [place]., [address] Urine 10/28/2024 12:1 2 PM CDT 10/28/2024 2:34 PM CDT Result Heather Bailey MD LAB URINE ORDERABLES Final Resu lt Performing Organization Address [facility] [place] [address] [address] Department [place] [address] * Chloride, urine, random (10/28/2024 12:12 PM CDT) Chloride, ur 22 mmol/L Comment: Interpretive Data No reference range established. Current interpretive data was last revised 2018. Urine (Urine, Clean Catch) 10/28/2024 12:12 PM CDT 10/28/2024 12:26 PM CDT us Ryan Bailey MD LAB URINE ORDERABLES Final Resu lt Performing Organization Address [facility] [place] [address] [address] Department [place] [address] * (ABNORMAL) eGFR (10/28/2024 4:13 AM CDT) [...] CDT 10/28/2024 4:24 AM CDT us Namrata [facility] [place] LAB BLOOD ORDERABLES Final Result [facility] [address] Department [place] [address] * (ABNORMAL) Differential, auto (10/28/2024 4:13 AM CDT) Neutrophil abs 2.25 1.50 - 6.50 K/cumm Imm gran abs 0.01 0.00 - 0.10 K/cumm [facility] Lymphocyte abs 0.54(L) 0.80 - 3.30 K/cumm [facility] Monocyte abs 0.39 0.20 - 0.80 K/cumm [facility] Eosinophil abs 0.08 0.00 - 0.50 K/cumm [facility] Basophil abs 0.01 0.00 - 0.10 K/cumm [facility] Neutrophil pct 68.6 % [facility] Comment: Interpretive Data Percent cell count reference ranges are not reported, since discordance with absolute values may lead to misinterpretation of CBC data. Current Interpretive Data was last revised on 2017. Imm gran pct 0.3 % [facility] Comment: Interpretive Data Percent cell count reference ranges are not reported, since discordance with absolute values may lead to misinterpretation of CBC data. Current Interpretive Data was last revised on 2017. Lymphocyte pct 16.5 % [facility] Comment: Interpretive Data Percent cell count reference ranges are not reported, since discordance with absolute values may lead to misinterpretation of CBC data. Current Interpretive Data was last revised on 2017. Monocyte pct 11.9 % [facility] Comment: Interpretive Data Percent cell count reference ranges are not reported, since discordance with absolute values may lead to misinterpretation of CBC data. Current Interpretive Data was last revised on 2017. Eosinophil pct 2.4 % [facility] Comment: Interpretive Data Percent cell count reference ranges are not reported, since discordance with absolute values may lead to misinterpretation of CBC data. Current Interpretive Data was last revised on 2017. Basophil pct 0.3 % [facility] Comment: Interpretive Data Percent cell count reference ranges are not reported, since discordance with absolute values may lead to misinterpretation of CBC data. Current Interpretive Data was last revised on 2017. Blood 10/28/2024 4:13 AM CDT 10/28/2024 4:26 AM CDT Namrata Spencer NP LAB BLOOD ORDERABLES Final Result LAURIE ROSALES [address] Department [place] [address] * (ABNORMAL) CBC with auto differential (10/28/2024 4:13 AM CDT) Pathologist [facility] WBC 3.28(L) 3.80 - 9.90 K/cumm Hgb 12.2(L) 13.0 - 17.5 g/dL [facility] Hct 36.0(L) 38.9 - 50.3 % [facility] Plt 115(L) 150 - 400 K/cumm [facility] MPV 11.9 9.1 - 12.3 fL [facility] RBC 3.95(L) 4.30 - 5.80 M/cumm [facility] MCV 91.1 81.3 - 96.4 fL [facility] MCH 30.9 27.1 - 33.3 pg [facility] MCHC 33.9 32.3 - 35.7 g/dL [facility] RDW CV 15.5(H) 11.1 - 14.9 % [facility] RDW SD 51.6(H) 35.7 - 48.1 fL [facility] NRBC abs 0.00 0.00 - 0.01 K/cumm [facility] Blood 10/28/2024 4:13 AM CDT 10/28/2024 4:26 AM CDT Namrata Spencer NP LAB BLOOD ORDERABLES Final Result LAURIE ROSALES [address] [place] [address] * (ABNORMAL) Protime-INR (10/28/2024 4:13 AM CDT) [...] ORDERABLES Fay l Result Performing Organization Address [facility] Co de Phone Number [facility] [address] [place] [address] * (ABNORMAL) Osmolality, blood (10/28/2024 4:13 AM CDT) Pathologist [facility] Osmo 273(L) 275 - 300 mOsm/kg Comment:Testing performed by : [facility], [address] [facility], [place]., [address] Blood 10/28/2024 4:13 AM CDT 10/28/2024 2:34 PM CDT us Ryan Bailey MD LAB BLOOD ORDERABLES Final Resu lt Performing Organization Address City/[facility]/ZIP Co de Phone Number [facility] [address] [place] [address] * Magnesium (10/28/2024 4:13 AM CDT) Pathologist [facility] Magnesium 1.8 1.4 - 2.5 mg/dL Blood 10/28/2024 4:13 AM CDT 10/28/2024 4:24 AM CDT us Ryan Bailey MD LAB BLOOD ORDERABLES Final Resu lt Performing Organization Address [facility]/ZIP Co de Phone Number LAURIE ROSALES [address] Department [place] [address] * (ABNORMAL) Basic metabolic panel (10/28/2024 4:13 AM CDT) Sodium 127(L) 135 - 145 mmol/L Potassium, pl 3.9 3.3 - 4.9 mmol/L [facility] Chloride 88(L) 97 - 110 mmol/L [facility] CO2 37(H) 22 - 32 mmol/L [facility] Anion gap 2 2 - 15 mmol/L [facility] BUN 37(H) 6 - 25 mg/dL [facility] Creatinine 1.36(H) 0.80 - 1.30 mg/dL [facility] Comment:Icteric sample, test results may be affected. Glucose 92 70 - 199 mg/dL [facility] Comment: Interpretive Data Fasting glucose >/= [...] 2022. Calcium 8.4(L) 8.5 - 10.3 mg/dL [facility] Blood 10/28/2024 4:13 AM CDT 10/28/2024 4:24 AM CDT Namrata Spencer [employer] LAB BLOOD ORDERABLES Final Result Performing Organization Address City/[facility]/ZIP Co de Phone Number LAURIE ROSALES [address] Department [place] [address] * XR Chest 1 View (10/27/2024 11:28 [...] AM CDT 10/27/2024 6:47 AM CDT Namrata Vidya Spencer NP LAB BLOOD ORDERABLES Final Result [facility] [address] Department [place] [address] * (ABNORMAL) Differential, auto (10/27/2024 6:26 AM CDT) Neutrophil abs 2.10 1.50 - 6.50 K/cumm Imm gran abs 0.00 0.00 - 0.10 K/cumm [facility] Lymphocyte abs 0.55(L) 0.80 - 3.30 K/cumm [facility] Monocyte abs 0.35 0.20 - 0.80 K/cumm [facility] Eosinophil abs 0.09 0.00 - 0.50 K/cumm [facility] Basophil abs 0.02 0.00 - 0.10 K/cumm [facility] Neutrophil pct 67.5 % [facility] Comment: Interpretive Data Percent cell count reference ranges are not reported, since discordance with absolute values may lead to misinterpretation of CBC data. Current Interpretive Data was last revised on 2017. Imm gran pct 0.0 % [facility] Comment: Interpretive Data Percent cell count reference ranges are not reported, since discordance with absolute values may lead to misinterpretation of CBC data. Current Interpretive Data was last revised on 2017. Lymphocyte pct 17.7 % [facility] Comment: Interpretive Data Percent cell count reference ranges are not reported, since discordance with absolute values may lead to misinterpretation of CBC data. Current Interpretive Data was last revised on 2017. Monocyte pct 11.3 % [facility] Comment: Interpretive Data Percent cell count reference ranges are not reported, since discordance with absolute values may lead to misinterpretation of CBC data. Current Interpretive Data was last revised on 2017. Eosinophil pct 2.9 % [facility] Comment: Interpretive Data Percent cell count reference ranges are not reported, since discordance with absolute values may lead to misinterpretation of CBC data. Current Interpretive Data was last revised on 2017. Basophil pct 0.6 % [facility] Comment: Interpretive Data Percent cell count reference ranges are not reported, since discordance with absolute values may lead to misinterpretation of CBC data. Current Interpretive Data was last revised on 2017. Blood 10/27/2024 6:26 AM CDT 10/27/2024 6:47 AM CDT Namrata Spencer NP LAB BLOOD ORDERABLES Final Result [facility] [address] Department [place] [address] * (ABNORMAL) CBC with auto differential (10/27/2024 6:26 AM CDT) WBC 3.11(L) 3.80 - 9.90 K/cumm Hgb 12.1(L) 13.0 - 17.5 g/dL [facility] Hct 36.1(L) 38.9 - 50.3 % [facility] Plt 99(L) 150 - 400 K/cumm [facility] MPV 12.3 9.1 - 12.3 fL [facility] RBC 3.92(L) 4.30 - 5.80 M/cumm [facility] MCV 92.1 81.3 - 96.4 fL [facility] MCH 30.9 27.1 - 33.3 pg [facility] MCHC 33.5 32.3 - 35.7 g/dL [facility] RDW CV 16.0(H) 11.1 - 14.9 % [facility] RDW SD 53.5(H) 35.7 - 48.1 fL [facility] NRBC abs 0.00 0.00 - 0.01 K/cumm [facility] Blood 10/27/2024 6:26 AM CDT 10/27/2024 6:47 AM CDT Namrata Nyakio [place] [employer] LAB BLOOD ORDERABLES Final Result Performing Organization Address [facility] de Phone Number LAURIE ROSALES [address] [place] [address] * (ABNORMAL) Protime-INR (10/27/2024 6:26 AM CDT) PT 16.2(H) 9.7 - 13.0 sec INR 1.49(H) 0.90 - 1.20 [facility] Comment: Interpretive data Oral anticoagulant therapeutic ranges: Venous thromboembolism prophylaxis or treatment: 2.0-3.0 CARDIOLOGY Standard range: 2.0-3.0 High-intensity range: 2.5-3.5 Refer to indication-specific guidelines for appropriate target ranges for prosthetic heart valve replacement. Current interpretive data was last revised on 2019. Blood 10/27/2024 6:26 AM CDT 10/27/2024 6:46 AM CDT Luan Guillermo DO LAB BLOOD ORDERABLES Fay l Result Performing Organization Address [facility] Co de Phone Number BRYNYEE ROSALES [address] Department [place] [address] * (ABNORMAL) Basic metabolic panel (10/27/2024 6:26 AM CDT) Sodium 127(L) 135 - 145 mmol/L Potassium, pl 3.6 3.3 - 4.9 mmol/L [facility] Chloride 87(L) 97 - 110 mmol/L [facility] CO2 36(H) 22 - 32 mmol/L [facility] Anion gap 4 2 - 15 mmol/L [facility] BUN 37(H) 6 - 25 mg/dL [facility] Creatinine 1.40(H) 0.80 - 1.30 mg/dL [facility] Glucose 95 70 - 199 mg/dL [facility] Comment: Interpretive Data Fasting glucose >/= [...] CDT 10/27/2024 6:47 AM CDT us Namrata Vidya Spencer NP LAB BLOOD ORDERABLES Final Result LAURIE ROSALES [address] Department [place] [address] * XR Chest 1 View (10/26/2024 11:06 [...] by: Coco Youngblood M.D. us Nitesh Phillips NP IMG XR PROCEDURES Final R esult * (ABNORMAL) eGFR (10/26/2024 6:28 AM CDT) Pathologist [facility] [place] eGFR 41(L) >=60 mL/min/1. 73 m2 Comment: [...] Spencer NP LAB BLOOD ORDERABLES Final Result [facility] [address] Department [place] [address] * (ABNORMAL) Differential, auto (10/26/2024 6:28 AM CDT) Pathologist [facility] [place] Neutrophil abs 2.38 1.50 - 6.50 K/cumm Imm gran abs 0.01 0.00 - 0.10 K/cumm [facility] Lymphocyte abs 0.60(L) 0.80 - 3.30 K/cumm [facility] Monocyte abs 0.41 0.20 - 0.80 K/cumm [facility] Eosinophil abs 0.10 0.00 - 0.50 K/cumm [facility] Basophil abs 0.02 0.00 - 0.10 K/cumm [facility] Neutrophil pct 67.7 % [facility] Comment: Interpretive Data Percent cell count reference ranges are not reported, since discordance with absolute values may lead to misinterpretation of CBC data. Current Interpretive Data was last revised on 2017. Imm gran pct 0.3 % [facility] Comment: Interpretive Data Percent cell count reference ranges are not reported, since discordance with absolute values may lead to misinterpretation of CBC data. Current Interpretive Data was last revised on 2017. Lymphocyte pct 17.0 % [facility] Comment: Interpretive Data Percent cell count reference ranges are not reported, since discordance with absolute values may lead to misinterpretation of CBC data. Current Interpretive Data was last revised on 2017. Monocyte pct 11.6 % [facility] Comment: Interpretive Data Percent cell count reference ranges are not reported, since discordance with absolute values may lead to misinterpretation of CBC data. Current Interpretive Data was last revised on 2017. Eosinophil pct 2.8 % [facility] Comment: Interpretive Data Percent cell count reference ranges are not reported, since discordance with absolute values may lead to misinterpretation of CBC data. Current Interpretive Data was last revised on 2017. Basophil pct 0.6 % [facility] Comment: Interpretive Data Percent cell count reference ranges are not reported, since discordance with absolute values may lead to misinterpretation of CBC data. Current Interpretive Data was last revised on 2017. Blood 10/26/2024 6:28 AM CDT 10/26/2024 6:44 AM CDT us Namrata Spencer NP LAB BLOOD ORDERABLES Final Result LAURIE [address] Department [place] [address] * (ABNORMAL) Thyroid Function [place] (10/26/2024 6:28 AM CDT) TSH 6.60(H) 0.30 - 4.20 mcIUnit/mL Blood 10/26/2024 6:28 AM CDT 10/26/2024 6:44 AM CDT Donte Camacho MD LAB BLOOD ORDERABLES Final Result LAURIE [address] Department of [employer] [place], [place] [id number] * (ABNORMAL) CBC with auto differential (10/26/2024 6:28 AM CDT) WBC 3.52(L) 3.80 - 9.90 K/cumm Hgb 12.0(L) 13.0 - 17.5 g/dL [facility] Hct 35.9(L) 38.9 - 50.3 % [facility] Plt 94(L) 150 - 400 K/cumm [facility] MPV 11.3 9.1 - 12.3 fL [facility] RBC 3.91(L) 4.30 - 5.80 M/cumm [facility] MCV 91.8 81.3 - 96.4 fL [facility] [...] LAURIE [address] Department [place] [address] * (ABNORMAL) Protime-INR (10/26/2024 6:28 AM CDT) PT 16.9(H) 9.7 - 13.0 sec INR 1.55(H) 0.90 - 1.20 [facility] Comment: Interpretive data Oral anticoagulant therapeutic ranges: Venous thromboembolism prophylaxis or treatment: 2.0-3.0 CARDIOLOGY Standard range: 2.0-3.0 High-intensity range: 2.5-3.5 Refer to indication-specific guidelines for appropriate target ranges for prosthetic heart valve replacement. Current interpretive data was last revised on 2019. Blood 10/26/2024 6:28 AM CDT 10/26/2024 6:44 AM CDT Luan Guillermo DO LAB BLOOD ORDERABLES Fay l Result Performing Organization Address [facility] Co de Phone Number LAURIE [address] [place] [address] * T4, free (10/26/2024 6:28 AM CDT) Free T4 1.43 0.90 - 1.70 ng/dL Blood 10/26/2024 6:28 AM CDT 10/26/2024 6:44 AM CDT Donte Camacho MD LAB BLOOD ORDERABLES Final Result Performing Organization Address [facility] de Phone Number LAURIE [address] [place] [address] * Cortisol (10/26/2024 6:28 AM CDT) Cortisol [...] BLOOD ORDERABLES Final Result Performing Organization Address [facility] Co de Phone Number LAURIE ROSALES [address] Department [place] [address] * (ABNORMAL) Basic metabolic panel (10/26/2024 6:28 AM CDT) Sodium 129(L) 135 - 145 mmol/L Potassium, pl 3.9 3.3 - 4.9 mmol/L [facility] Chloride 89(L) 97 - 110 mmol/L [facility] CO2 33(H) 22 - 32 mmol/L [facility] Anion gap 7 2 - 15 mmol/L [facility] BUN 43(H) 6 - 25 mg/dL [facility] Creatinine 1.65(H) 0.80 - 1.30 mg/dL [facility] Glucose 94 70 - 199 mg/dL [facility] Comment: Interpretive Data Fasting glucose >/= [...] 2022. Calcium 8.5 8.5 - 10.3 mg/dL [facility] Blood 10/26/2024 6:28 AM CDT 10/26/2024 6:44 AM CDT Namrata Spencer NP LAB BLOOD ORDERABLES Final Result LAURIE ROSALES [address] Department [place] [address] * (ABNORMAL) eGFR (10/25/2024 6:58 AM CDT) Pathologist [facility] [place] eGFR 39(L) >=60 mL/min/1. 73 m2 Comment: [...] Spencer NP LAB BLOOD ORDERABLES Final Result [facility] [address] Department [place] [address] * (ABNORMAL) Differential, auto (10/25/2024 6:58 AM CDT) Neutrophil abs 2.57 1.50 - 6.50 K/cumm Imm gran abs 0.01 0.00 - 0.10 K/cumm [facility] Lymphocyte abs 0.46(L) 0.80 - 3.30 K/cumm [facility] Monocyte abs 0.39 0.20 - 0.80 K/cumm [facility] Eosinophil abs 0.09 0.00 - 0.50 K/cumm [facility] Basophil abs 0.02 0.00 - 0.10 K/cumm [facility] Neutrophil pct 72.6 % [facility] Comment: Interpretive Data Percent cell count [...] revised on 2017. Lymphocyte pct 13.0 % [facility] Comment: Interpretive Data Percent cell count reference ranges are not reported, since discordance with absolute values may lead to misinterpretation of CBC data. Current Interpretive Data was last revised on 2017. Monocyte pct 11.0 % [facility] Comment: Interpretive Data Percent cell count reference ranges are not reported, since discordance with absolute values may lead to misinterpretation of CBC data. Current Interpretive Data was last revised on 2017. Eosinophil pct 2.5 % [facility] Comment: Interpretive Data Percent cell count reference ranges are not reported, since discordance with absolute values may lead to misinterpretation of CBC data. Current Interpretive Data was last revised on 2017. Basophil pct 0.6 % [facility] Comment: Interpretive Data Percent cell count reference ranges are not reported, since discordance with absolute values may lead to misinterpretation of CBC data. Current Interpretive Data was last revised on 2017. Blood 10/25/2024 6:58 AM CDT 10/25/2024 7:21 AM CDT Namrata Spencer NP LAB BLOOD ORDERABLES Final Result [facility] [address] Department [place] [address] * (ABNORMAL) CBC with auto differential (10/25/2024 6:58 AM CDT) WBC 3.54(L) 3.80 - 9.90 K/cumm Hgb 12.9(L) 13.0 - 17.5 g/dL [facility] Hct 38.5(L) 38.9 - 50.3 % [facility] Plt 91(L) 150 - 400 K/cumm [facility] MPV 11.6 9.1 - 12.3 fL [facility] RBC 4.15(L) 4.30 - 5.80 M/cumm [facility] MCV 92.8 81.3 - 96.4 fL [facility] MCH 31.1 27.1 - 33.3 pg [facility] MCHC 33.5 32.3 - 35.7 g/dL [facility] RDW CV 16.2(H) 11.1 - 14.9 % [facility] RDW SD 54.5(H) 35.7 - 48.1 fL [facility] NRBC abs 0.00 0.00 - 0.01 K/cumm [facility] Blood 10/25/2024 6:58 AM CDT 10/25/2024 7:21 AM CDT Namrata Spencer [employer] LAB BLOOD ORDERABLES Final Result Performing Organization Address [facility] Co de Phone Number [facility] [address] [address] * (ABNORMAL) Protime-INR (10/25/2024 6:58 AM CDT) PT 18.0(H) 9.7 - 13.0 sec INR 1.65(H) 0.90 - 1.20 [facility] Comment: Interpretive data Oral anticoagulant therapeutic ranges: Venous thromboembolism prophylaxis or treatment: 2.0-3.0 CARDIOLOGY Standard range: 2.0-3.0 High-intensity range: 2.5-3.5 Refer to indication-specific guidelines for appropriate target ranges for prosthetic heart valve replacement. Current interpretive data was last revised on 2019. Blood 10/25/2024 6:58 AM CDT 10/25/2024 7:20 AM CDT Luan Guillermo DO LAB BLOOD ORDERABLES Fay l Result Performing Organization Address City/[facility]/ZIP Co de Phone Number [facility] [address] [place] [address] * (ABNORMAL) Basic metabolic panel (10/25/2024 6:58 AM CDT) Sodium 134(L) 135 - 145 mmol/L Potassium, pl 3.8 3.3 - 4.9 mmol/L [facility] Chloride 93(L) 97 - 110 mmol/L [facility] CO2 34(H) 22 - 32 mmol/L [facility] Anion gap 7 2 - 15 mmol/L [facility] BUN 46(H) 6 - 25 mg/dL [facility] Creatinine 1.70(H) 0.80 - 1.30 mg/dL [facility] Glucose 102 70 - 199 mg/dL [facility] Comment: Interpretive Data Fasting glucose >/= [...] 2022. Calcium 8.6 8.5 - 10.3 mg/dL [facility] Blood 10/25/2024 6:58 AM CDT 10/25/2024 7:21 AM CDT Namrata Spencer NP LAB BLOOD ORDERABLES Final Result LAURIE [address] Department [place] [address] * XR Chest 1 Vw Portable (10/24/2024 [...] 4:15 AM CDT 10/24/2024 4:38 AM CDT us Namrata Spencer NP LAB BLOOD ORDERABLES Final Result LAURIE [address] Department [place] [address] * (ABNORMAL) Differential, auto (10/24/2024 4:15 AM CDT) Neutrophil abs 2.69 1.50 - 6.50 K/cumm Imm gran abs 0.01 0.00 - 0.10 [facility]cumm [facility] Lymphocyte abs 0.56(L) 0.80 - 3.30 K/cumm [facility] Monocyte abs 0.42 0.20 - 0.80 K/cumm [facility] Eosinophil abs 0.11 0.00 - 0.50 K/cumm [facility] Basophil abs 0.02 0.00 - 0.10 K/cumm [facility] Neutrophil pct 70.6 % [facility] Comment: Interpretive Data Percent cell count reference ranges are not reported, since discordance with absolute values may lead to misinterpretation of CBC data. Current Interpretive Data was last revised on 2017. Imm gran pct 0.3 % [facility] Comment: Interpretive Data Percent cell count reference ranges are not reported, since discordance with absolute values may lead to misinterpretation of CBC data. Current Interpretive Data was last revised on 2017. Lymphocyte pct 14.7 % [facility] Comment: Interpretive Data Percent cell count reference ranges are not reported, since discordance with absolute values may lead to misinterpretation of CBC data. Current Interpretive Data was last revised on 2017. Monocyte pct 11.0 % [facility] Comment: Interpretive Data Percent cell count reference ranges are not reported, since discordance with absolute values may lead to misinterpretation of CBC data. Current Interpretive Data was last revised on 2017. Eosinophil pct 2.9 % [facility] Comment: Interpretive Data Percent cell count [...] LAB BLOOD ORDERABLES Final Result LAURIE ROSALES [address] Department of [employer] [place], [place] [id number] * (ABNORMAL) CBC with auto differential (10/24/2024 4:15 AM CDT) WBC 3.81 3.80 - 9.90 K/cumm Hgb 12.8(L) 13.0 - 17.5 g/dL [facility] Hct 38.2(L) 38.9 - 50.3 % [facility] Plt 81(L) 150 - 400 K/cumm [facility] MPV 12.3 9.1 - 12.3 fL [facility] RBC 4.08(L) 4.30 - 5.80 M/cumm [facility] MCV 93.6 81.3 - 96.4 fL [facility] MCH 31.4 27.1 - 33.3 pg [facility] MCHC 33.5 32.3 - 35.7 g/dL [facility] RDW CV 16.3(H) 11.1 - 14.9 % [facility] RDW SD 55.5(H) 35.7 - 48.1 fL [facility] NRBC abs 0.00 0.00 - 0.01 K/cumm [facility] Blood 10/24/2024 4:15 AM CDT 10/24/2024 4:39 AM CDT Namrata Spencer NP LAB BLOOD ORDERABLES Final Result LAURIE [address] Department [place] [address] * (ABNORMAL) Protime-INR (10/24/2024 4:15 AM CDT) PT 20.5(H) 9.7 - 13.0 sec INR 1.87(H) 0.90 - 1.20 [facility] Comment: Interpretive data Oral anticoagulant therapeutic ranges: Venous thromboembolism prophylaxis or treatment: 2.0-3.0 CARDIOLOGY Standard range: 2.0-3.0 High-intensity range: 2.5-3.5 Refer to indication-specific guidelines for appropriate target ranges for prosthetic heart valve replacement. Current interpretive data was last revised on 2019. Blood 10/24/2024 4:15 AM CDT 10/24/2024 4:39 AM CDT Luan Guillermo DO LAB BLOOD ORDERABLES Fay l Result [facility] [address] Department [place] [address] * (ABNORMAL) Basic metabolic panel (10/24/2024 4:15 AM CDT) Sodium 132(L) 135 - 145 mmol/L Potassium, pl 4.2 3.3 - 4.9 mmol/L [facility] Chloride 91(L) 97 - 110 mmol/L [facility] CO2 32 22 - 32 mmol/L [facility] Anion gap 9 2 - 15 mmol/L [facility] BUN 46(H) 6 - 25 mg/dL [facility] Creatinine 1.90(H) 0.80 - 1.30 mg/dL [facility] Comment:Icteric sample, test results may be affected. Glucose 96 70 - 199 mg/dL [facility] Comment: Interpretive Data Fasting glucose >/= [...] 2022. Calcium 8.4(L) 8.5 - 10.3 mg/dL [facility] Blood 10/24/2024 4:15 AM CDT 10/24/2024 4:38 AM CDT Namrata Spencer NP LAB BLOOD ORDERABLES Final Result LAURIE ROSALES [address] Department [place] [address] * XR Chest 1 Vw Portable (10/23/2024 7:31 AM CDT) Anatomical Region Laterality Modality Body, Chest N/A Computed Radiogr aphy 10/23/2024 9:42 AM CDT Impressions 10/23/2024 9:42 AM CDT Persistent right effusion with patchy right lower lobe consolidation. Electronically signed by: Perla Coawrt M.D. Narrative 10/23/2024 9:42 AM CDT Examination: [...] Spencer NP LAB BLOOD ORDERABLES Final Result [facility] [address] Department of Laboratories [place], [place] [id number] * (ABNORMAL) Differential, auto (10/23/2024 3:35 AM CDT) Neutrophil abs 4.54 1.50 - 6.50 K/cumm Imm gran abs 0.02 0.00 - 0.10 K/cumm [facility] Lymphocyte abs 0.51(L) 0.80 - 3.30 K/cumm [facility] Monocyte abs 0.66 0.20 - 0.80 K/cumm [facility] Eosinophil abs 0.08 0.00 - 0.50 K/cumm [facility] Basophil abs 0.01 0.00 - 0.10 K/cumm [facility] Neutrophil pct 78.0 % [facility] Comment: Interpretive Data Percent cell count reference ranges are not reported, since discordance with absolute values may lead to misinterpretation of CBC data. Current Interpretive Data was last revised on 2017. Imm gran pct 0.3 % [facility] Comment: Interpretive Data Percent cell count reference ranges are not reported, since discordance with absolute values may lead to misinterpretation of CBC data. Current Interpretive Data was last revised on 2017. Lymphocyte pct 8.8 % [facility] Comment: Interpretive Data Percent cell count reference ranges are not reported, since discordance with absolute values may lead to misinterpretation of CBC data. Current Interpretive Data was last revised on 2017. Monocyte pct 11.3 % [facility] Comment: Interpretive Data Percent cell count reference ranges are not reported, since discordance with absolute values may lead to misinterpretation of CBC data. Current Interpretive Data was last revised on 2017. Eosinophil pct 1.4 % [facility] Comment: Interpretive Data Percent cell count reference ranges are not reported, since discordance with absolute values may lead to misinterpretation of CBC data. Current Interpretive Data was last revised on 2017. Basophil pct 0.2 % [facility] Comment: Interpretive Data Percent cell count reference ranges are not reported, since discordance with absolute values may lead to misinterpretation of CBC data. Current Interpretive Data was last revised on 2017. Blood 10/23/2024 3:35 AM CDT 10/23/2024 3:52 AM CDT Namrata Spencer NP LAB BLOOD ORDERABLES Final Result [facility] [address] Department [place] [address] * (ABNORMAL) CBC with auto differential (10/23/2024 3:35 AM CDT) WBC 5.82 3.80 - 9.90 K/cumm Hgb 13.8 13.0 - 17.5 g/dL [facility] Hct 41.6 38.9 - 50.3 % [facility] Plt 87(L) 150 - 400 K/cumm [facility] MPV 11.7 9.1 - 12.3 fL [facility] RBC 4.44 4.30 - 5.80 M/cumm [facility] MCV 93.7 81.3 - 96.4 fL [facility] MCH 31.1 27.1 - 33.3 pg [facility] MCHC 33.2 32.3 - 35.7 g/dL [facility] RDW CV 16.7(H) 11.1 - 14.9 % [facility] RDW SD 56.9(H) 35.7 - 48.1 fL [facility] NRBC abs 0.00 0.00 - 0.01 K/cumm [facility] Blood 10/23/2024 3:35 AM CDT 10/23/2024 3:52 AM CDT Namrata Spencer [employer] LAB BLOOD ORDERABLES Final Result Performing Organization Address City/State/[facility] Co de Phone Number LAURIE [address] Department [place] [address] * (ABNORMAL) Protime-INR (10/23/2024 3:35 AM CDT) PT 30.3(H) 9.7 - 13.0 sec INR 2.75(H) 0.90 - 1.20 LAURIE Comment: Interpretive data Oral anticoagulant therapeutic ranges: Venous thromboembolism prophylaxis or treatment: 2.0-3.0 CARDIOLOGY Standard range: 2.0-3.0 High-intensity range: 2.5-3.5 Refer to indication-specific guidelines for appropriate target ranges for prosthetic heart valve replacement. Current interpretive data was last revised on 2019. Blood 10/23/2024 3:3 5 AM CDT 10/23/2024 3:52 AM CDT Luan Guillermo DO LAB BLOOD ORDERABLES Fay l Result LAURIE [address] Department [place] [address] * (ABNORMAL) Basic metabolic panel (10/23/2024 3:35 AM CDT) Sodium 137 135 - 145 mmol/L Potassium, pl 4.1 3.3 - 4.9 mmol/L [facility] Chloride 97 97 - 110 mmol/L [facility] CO2 33(H) 22 - 32 mmol/L [facility] Anion gap 7 2 - 15 mmol/L [facility] BUN 44(H) 6 - 25 mg/dL [facility] Creatinine 1.70(H) 0.80 - 1.30 mg/dL [facility] Glucose 100 70 - 199 mg/dL [facility] Comment: Interpretive Data Fasting glucose >/= [...] 2022. Calcium 8.8 8.5 - 10.3 mg/dL [facility] Blood 10/23/2024 3:35 AM CDT 10/23/2024 3:52 AM CDT Namrata Spencer NP LAB BLOOD ORDERABLES Final Result [facility] [address] Department of Laboratories [place] [id number] * (ABNORMAL) eGFR (10/22/2024 3:54 AM CDT) [...] AM CDT 10/22/2024 4:24 AM CDT Namrata Julianedeiondejon Spencer NP LAB BLOOD ORDERABLES Final Result [facility] [address] Department [place] [address] * (ABNORMAL) Differential, auto (10/22/2024 3:54 AM CDT) Neutrophil abs 4.61 1.50 - 6.50 K/cumm Imm gran abs 0.01 0.00 - 0.10 K/cumm [facility] Lymphocyte abs 0.52(L) 0.80 - 3.30 K/cumm [facility] Monocyte abs 0.58 0.20 - 0.80 K/cumm [facility] Eosinophil abs 0.05 0.00 - 0.50 K/cumm [facility] Basophil abs 0.02 0.00 - 0.10 K/cumm [facility] [facility] Neutrophil pct 79.6 % [facility] Comment: Interpretive Data Percent cell count reference ranges are not reported, since discordance with absolute values may lead to misinterpretation of CBC data. Current Interpretive Data was last revised on 2017. Imm gran pct 0.2 % [facility] Comment: Interpretive Data Percent cell count reference ranges are not reported, since discordance with absolute values may lead to misinterpretation of CBC data. Current Interpretive Data was last revised on 2017. Lymphocyte pct 9.0 % [facility] Comment: Interpretive Data Percent cell count reference ranges are not reported, since discordance with absolute values may lead to misinterpretation of CBC data. Current Interpretive Data was last revised on 2017. Monocyte pct 10.0 % [facility] Comment: Interpretive Data Percent cell count reference ranges are not reported, since discordance with absolute values may lead to misinterpretation of CBC data. Current Interpretive Data was last revised on 2017. Eosinophil pct 0.9 % [facility] Comment: Interpretive Data Percent cell count [...] BLOOD ORDERABLES Final Result Performing Organization Address City/State/[facility] Co de Phone Number LAURIE [address] [address] Department [place] [address] * (ABNORMAL) CBC with auto differential (10/22/2024 3:54 AM CDT) WBC 5.79 3.80 - 9.90 K/cumm Hgb 13.8 13.0 - 17.5 g/dL [facility] Hct 42.0 38.9 - 50.3 % [facility] Plt 104(L) 150 - 400 K/cumm [facility] MPV 12.3 9.1 - 12.3 fL [facility] RBC 4.46 4.30 - 5.80 M/cumm [facility] MCV 94.2 81.3 - 96.4 fL [facility] MCH 30.9 27.1 - 33.3 pg [facility] MCHC 32.9 32.3 - 35.7 g/dL [facility] RDW CV 16.7(H) 11.1 - 14.9 % [facility] RDW SD 57.1(H) 35.7 - 48.1 fL [facility] NRBC abs 0.00 0.00 - 0.01 K/cumm [facility] Blood 10/22/2024 3:54 AM CDT 10/22/2024 4:23 AM CDT Namrata Spencer NP LAB BLOOD ORDERABLES Final Result Performing Organization Address City/State/[facility] Co de Phone Number BRYNYEE ROSALES [phone] [address] [facility] [place] [address] * (ABNORMAL) Protime-INR (10/22/2024 3:54 AM CDT) [facility] PT 28.2(H) 9.7 - 13.0 sec INR 2.56(H) 0.90 - 1.20 [facility] Comment: Interpretive data Oral anticoagulant therapeutic ranges: Venous thromboembolism prophylaxis or treatment: 2.0-3.0 CARDIOLOGY Standard range: 2.0-3.0 High-intensity range: 2.5-3.5 Refer to indication-specific guidelines for appropriate target ranges for prosthetic heart valve replacement. Current interpretive data was last revised on 2019. Blood 10/22/2024 3:54 AM CDT 10/22/2024 4:23 AM CDT Namrata Spencer LAB BLOOD ORDERABLES Final Result Performing Organization Address [facility] de Phone Number BRYNYEE ROSALES [phone] [address] [facility] [place] [address] * Magnesium (10/22/2024 3:54 AM CDT) [facility] Magnesium 2.1 1.4 - 2.5 mg/dL Blood 10/22/2024 3:54 AM CDT 10/22/2024 4:24 AM CDT Namrata Spencer LAB BLOOD ORDERABLES Final Result Performing Organization Address [facility] de Phone Number BRYNYEE BOBBY [address] [address] [facility] [place] [address] * (ABNORMAL) Basic metabolic panel (10/22/2024 3:54 AM CDT) [facility] Sodium 134(L) 135 - 145 mmol/L Potassium, pl 4.3 3.3 - 4.9 mmol/L [facility] Chloride 95(L) 97 - 110 mmol/L [facility] CO2 33(H) 22 - 32 mmol/L [facility] Anion gap 6 2 - 15 mmol/L [facility] BUN 47(H) 6 - 25 mg/dL [facility] Creatinine 1.99(H) 0.80 - 1.30 mg/dL [facility] Comment:Icteric sample, test results may be affected. Glucose 101 70 - 199 mg/dL [facility] Comment: Interpretive Data Fasting glucose >/= [...] 2022. Calcium 8.8 8.5 - 10.3 mg/dL [facility] Blood 10/22/2024 3:54 AM CDT 10/22/2024 4:24 AM CDT us Namrata Spencer NP LAB BLOOD ORDERABLES Final Result [facility] [id number] [address] Department [place] [address] * CT Abdomen Pelvis WO Contrast (10/21/2024 [...] bypass. Electronically signed by: Neel Morrison M.D. us Delvin Mendenhall MD IMG CT PROCEDURES Final [...] Spencer NP LAB BLOOD ORDERABLES Final Result [facility] [address] [address] Department [place] [address] * (ABNORMAL) Differential, auto (10/21/2024 5:17 AM CDT) Neutrophil abs 3.63 1.50 - 6.50 K/cumm Imm gran abs 0.01 0.00 - 0.10 K/cumm [facility] Lymphocyte abs 0.62(L) 0.80 - 3.30 K/cumm [facility] Monocyte abs 0.51 0.20 - 0.80 K/cumm [facility] Eosinophil abs 0.05 0.00 - 0.50 K/cumm [facility] Basophil abs 0.03 0.00 - 0.10 K/cumm [facility] Neutrophil pct 74.9 % [facility] Comment: Interpretive Data Percent cell count reference ranges are not reported, since discordance with absolute values may lead to misinterpretation of CBC data. Current Interpretive Data was last revised on 2017. Imm gran pct 0.2 % [facility] Comment: Interpretive Data Percent cell count reference ranges are not reported, since discordance with absolute values may lead to misinterpretation of CBC data. Current Interpretive Data was last revised on 2017. Lymphocyte pct 12.8 % [facility] Comment: Interpretive Data Percent cell count reference ranges are not reported, since discordance with absolute values may lead to misinterpretation of CBC data. Current Interpretive Data was last revised on 2017. Monocyte pct 10.5 % [facility] Comment: Interpretive Data Percent cell count reference ranges are not reported, since discordance with absolute values may lead to misinterpretation of CBC data. Current Interpretive Data was last revised on 2017. Eosinophil pct 1.0 % [facility] Comment: Interpretive Data Percent cell count reference ranges are not reported, since discordance with absolute values may lead to misinterpretation of CBC data. Current Interpretive Data was last revised on 2017. Basophil pct 0.6 % [facility] Comment: Interpretive Data Percent cell count reference ranges are not reported, since discordance with absolute values may lead to misinterpretation of CBC data. Current Interpretive Data was last revised on 2017. Blood 10/21/2024 5:17 AM CDT 10/21/2024 6:10 AM CDT us Namrata Spencer NP LAB BLOOD ORDERABLES Final Result LAURIE [address] [address] Department [place] [address] * (ABNORMAL) CBC with auto differential (10/21/2024 5:17 AM CDT) WBC 4.85 3.80 - 9.90 K/cumm Hgb 14.6 13.0 - 17.5 g/dL [facility] Hct 45.1 38.9 - 50.3 % [facility] Plt 108(L) 150 - 400 K/cumm [facility] MPV 11.2 9.1 - 12.3 fL [facility] RBC 4.73 4.30 - 5.80 M/cumm [facility] MCV 95.3 81.3 - 96.4 fL [facility] MCH 30.9 27.1 - 33.3 pg [facility] MCHC 32.4 32.3 - 35.7 g/dL [facility] RDW CV 16.8(H) 11.1 - 14.9 % [facility] RDW SD 58.7(H) 35.7 - 48.1 fL [facility] NRBC abs 0.00 0.00 - 0.01 K/cumm [facility] Blood 10/21/2024 5:17 AM CDT 10/21/2024 6:10 AM CDT Namrata Spencer NP LAB BLOOD ORDERABLES Final Result Performing Organization Address [facility] Co de Phone Number [facility] [address] [address] Department of Laboratories [place] [phone] * (ABNORMAL) Protime-INR (10/21/2024 5:17 AM CDT) [facility] PT 25.7(H) 9.7 - 13.0 sec INR 2.34(H) 0.90 - 1.20 [facility] Comment: Interpretive data Oral anticoagulant therapeutic ranges: Venous thromboembolism prophylaxis or treatment: 2.0-3.0 CARDIOLOGY Standard range: 2.0-3.0 High-intensity range: 2.5-3.5 Refer to indication-specific guidelines for appropriate target ranges for prosthetic heart valve replacement. Current interpretive data was last revised on 2019. Blood 10/21/2024 5:17 AM CDT 10/21/2024 6:09 AM CDT Namrata Spencer NP LAB BLOOD ORDERABLES Final Result Performing Organization Address City/[facility]/ZIP Co de Phone Number LAURIE ROSALES [phone] [address] Department [place] [address] * Magnesium (10/21/2024 5:17 AM CDT) Pathologist [facility] Magnesium 2.1 1.4 - 2.5 mg/dL Blood 10/21/2024 5:17 AM CDT 10/21/2024 6:09 AM CDT Namrata Spencer LAB BLOOD ORDERABLES Final Result LAURIE ROSALES [address] [address] Department [place] [address] * (ABNORMAL) Basic metabolic panel (10/21/2024 5:17 AM CDT) Pathologist [facility] Sodium 133(L) 135 - 145 mmol/L Potassium, pl 4.5 3.3 - 4.9 mmol/L [facility] Chloride 95(L) 97 - 110 mmol/L [facility] CO2 28 22 - 32 mmol/L [facility] Anion gap 10 2 - 15 mmol/L [facility] BUN 48(H) 6 - 25 mg/dL [facility] Creatinine 2.23(H) 0.80 - 1.30 mg/dL [facility] Glucose 94 70 - 199 mg/dL [facility] Comment: Interpretive Data Fasting glucose >/= [...] 10/21/2024 6:09 AM CDT us Namrata Spencer [employer] LAB BLOOD ORDERABLES Final Result LAURIE [address] [address] Department of Laboratories [place] [phone] * TRANSTHORACIC ECHO (TTE) COMPLETE W DOPPLER/CF W CONTRAST (10/20/2024 1:23 PM CDT) EF Mod BP 37 % CONS SCIMAGE Anatomical Region Laterality Modality Ultrasound 10/20/2024 12:1 1 PM CDT Narrative 10/21/2024 6:43 AM CDT [place] [id number] Echocardiogram Report Patient Name: IAN MONSALVE H : 1940 Study Date: 10/20/2024 12:11:53 PM Gender: M Tech: Location: [id number] Ref Provider: CARLA JEAN Height(Cm): 170 BSA: [...] of hemodynamically significant aortic stenosis by Doppler. [id number]-[id number] pulmonary hypertension, estimated RVSP 60 mmHg. Moderate tricuspid regurgitation. Electronically Signed By: Clive Godfrey MD, [facility] 10/21/2024 6:43:00 AM CDT Procedure Note Clive Godfrey MD - 10/21/2024 [place] [id number] Echocardiogram Report Patient Name: IAN MONSALVE H : 1940 Study Date: 10/20/2024 12:11:53 PM Gender: M Tech: Location: [id number] Ref Provider: CARLA JEAN Height(Cm): 170 BSA: [...] evidence of hemodynamicallysignificant aortic stenosis by Doppler. Lypvzyrh-si-rvafyu pulmonary hypertension, estimated RVSP 60 mmHg.Moderate tricuspid regurgitation. Electronically Signed By: Clive Godfrey MD, FACC 10/21/2024 6:43:00 AM CDT us Carla Jean [...] Spencer NP LAB BLOOD ORDERABLES Final Result [facility] [address] [address] Department [place] [address] * (ABNORMAL) Differential, auto (10/20/2024 6:38 AM CDT) Pathologist [facility] Neutrophil abs 3.55 1.50 - 6.50 K/cumm Imm gran abs 0.01 0.00 - 0.10 K/cumm [facility] Lymphocyte abs 0.72(L) 0.80 - 3.30 K/cumm [facility] Monocyte abs 0.61 0.20 - 0.80 K/cumm [facility] Eosinophil abs 0.03 0.00 - 0.50 K/cumm [facility] Basophil abs 0.02 0.00 - 0.10 K/cumm [facility] Neutrophil pct 71.9 % [facility] Comment: Interpretive Data Percent cell count reference ranges are not reported, since discordance with absolute values may lead to misinterpretation of CBC data. Current Interpretive Data was last revised on 2017. Imm gran pct 0.2 % [facility] Comment: Interpretive Data Percent cell count reference ranges are not reported, since discordance with absolute values may lead to misinterpretation of CBC data. Current Interpretive Data was last revised on 2017. Lymphocyte pct 14.6 % [facility] Comment: Interpretive Data Percent cell count reference ranges are not reported, since discordance with absolute values may lead to misinterpretation of CBC data. Current Interpretive Data was last revised on 2017. Monocyte pct 12.3 % [facility] Comment: Interpretive Data Percent cell count reference [...] revised on 2017. Basophil pct 0.4 % [facility] Comment: Interpretive Data Percent cell count reference ranges are not reported, since discordance with absolute values may lead to misinterpretation of CBC data. Current Interpretive Data was last revised on 2017. Blood 10/20/2024 6:38 AM CDT 10/20/2024 6:43 AM CDT Namrata Spencer NP LAB BLOOD ORDERABLES Final Result [facility] [address] [address] Department [place] [address] * (ABNORMAL) CBC with auto differential (10/20/2024 6:38 AM CDT) WBC 4.94 3.80 - 9.90 K/cumm Hgb 14.2 13.0 - 17.5 g/dL [facility] Hct 43.3 38.9 - 50.3 % [facility] Plt 106(L) 150 - 400 K/cumm [facility] MPV 11.0 9.1 - 12.3 fL [facility] RBC 4.58 4.30 - 5.80 M/cumm [facility] MCV 94.5 81.3 - 96.4 fL [facility] MCH 31.0 27.1 - 33.3 pg [facility] MCHC 32.8 32.3 - 35.7 g/dL [facility] RDW CV 16.8(H) 11.1 - 14.9 % [facility] RDW SD 58.4(H) 35.7 - 48.1 fL [facility] NRBC abs 0.00 0.00 - 0.01 K/cumm [facility] Blood 10/20/2024 6:38 AM CDT 10/20/2024 6:43 AM CDT Namrata Spencer NP LAB BLOOD ORDERABLES Final Result Performing Organization Address [facility] de Phone Number LAURIE [address] [address] [facility] [place] [address] * (ABNORMAL) Protime-INR (10/20/2024 6:38 AM CDT) PT 34.5(H) 9.7 - 13.0 sec INR 3.12(H) 0.90 - 1.20 [facility] Comment: Interpretive data Oral anticoagulant therapeutic ranges: Venous thromboembolism prophylaxis or treatment: 2.0-3.0 CARDIOLOGY Standard range: 2.0-3.0 High-intensity range: 2.5-3.5 Refer to indication-specific guidelines for appropriate target ranges for prosthetic heart valve replacement. Current interpretive data was last revised on 2019. Blood 10/20/2024 6:38 AM CDT 10/20/2024 6:43 AM CDT Namrata Spencer NP LAB BLOOD ORDERABLES Final Result Performing Organization Address [facility] Co de Phone Number [facility] [phone] [address] [facility] [place] [address] * Magnesium (10/20/2024 6:38 AM CDT) Magnesium 2.0 1.4 - 2.5 mg/dL Blood 10/20/2024 6:38 AM CDT 10/20/2024 6:42 AM CDT Namrata Spencer NP LAB BLOOD ORDERABLES Final Result Performing Organization Address [facility] Co de Phone Number LAURIE ROSALES [address] [address] Department [place] [address] * Digoxin level (10/20/2024 6:38 AM CDT) [...] ORDERABLES Final Re sult Performing Organization Address [facility] Co de Phone Number LAURIE ROSALES [address] [address] [place] [address] * (ABNORMAL) Basic metabolic panel (10/20/2024 6:38 AM CDT) Sodium 133(L) 135 - 145 mmol/L Potassium, pl 4.4 3.3 - 4.9 mmol/L [facility] Chloride 96(L) 97 - 110 [facility] CO2 30 22 - 32 mmol/L [facility] Anion gap 10 2 - 15 mmol/L [facility] BUN 46(H) 6 - 25 mg/dL [facility] Creatinine 2.43(H) 0.80 - 1.30 mg/dL [facility] Glucose 106 70 - 199 mg/dL [facility] Comment: Interpretive Data Fasting glucose >/= [...] LAB BLOOD ORDERABLES Final Result LAURIE ROSALES [address] [address] Department [place] [address] * US Retroperitoneal Complete (10/19/2024 3:09 PM [...] Oh II, D.O. us Delvin Mendenhall MD [facility] US PROCEDURES Final Result * Urinalysis reflex [...] tendency for uric acid stone formation. Source: [employer] Current Interpretive Data was last revised on 2017 Protein, ur ql Negative Negative [facility] Glucose, ur ql Negative Negative [facility] Ketones, ur Negative Negative [facility] Bilirubin, ur Negative Negative [facility] Blood, ur Negative Negative [facility] Urobilinogen, ur <2.0 <2.0 mg/dL [facility] Nitrite, ur Negative Negative [facility] Leukocyte esterase, ur Negative Negative [facility] UA reflex comment Reflex conditions for microscopic UA and culture not met. [facility] Urine 10/19/2024 12:3 3 PM CDT 10/19/2024 12:39 PM CDT Delvin Mendenhall MD LAB MICROBIOLOGY - GENERAL ORD ERABLES Final Result Performing Organization Address [facility] Co de Phone Number LAURIE ROSALES [address] [address] [place] [address] * Strep pneumoniae antigen, urine Urine (10/19/2024 12:33 PM CDT) [facility] S. pneumoniae Ag Negative Negative Comment: A [...] RAL ORDERABLES Final Result Performing Organization Address [facility] Co de Phone Number LAURIE ROSALES [address] [address] [place] [address] * Protein / creatinine ratio, urine, random (10/19/2024 12:33 PM CDT) Pathologist [facility] Protein, ur, quant 5.8 mg/dL Comment: Interpretive Data No reference range established. Current interpretive data was last revised 2018. Creatinine Ur 46.3 mg/dL [facility] Comment: Interpretive Data No reference range established. Current interpretive data was last revised 2018. Protein/creatinin e ratio 125.3 0.0 - 180.0 mg/g CR [facility] Urine 10/19/2024 12:3 3 PM CDT 10/19/2024 12:39 PM CDT Delvin Mendenhall MD LAB URINE ORDERABLES Final Res ult Performing Organization Address [facility] Co de Phone Number LAURIE [address] [employer] [place], [place] [id number] * Legionella antigen Urine (10/19/2024 12:33 PM CDT) [facility] Legionella Ag Negative Negative Comment: Interpretive Data This test detects only Legionella pneumophila serogroup 1 antigen. Current interpretive data was last revised on 2019. Urine 10/19/2024 12:3 3 PM CDT 10/19/2024 12:40 PM CDT Radha Suggs MD LAB MICROBIOLOGY - GENE RAL ORDERABLES Final Result Performing Organization Address [facility] Co de Phone Number [facility] [address] [place] [address] * LETICIA ab ql w/rflx to LETICIA qn (10/19/2024 12:15 PM CDT) [facility] LETICIA Negative Comment: Interpretive Data Normal range [...] last revised on 2020. Testing performed by: [facility], [address] [place]., [address] Blood 10/19/2024 12:1 5 PM CDT 10/19/2024 2:07 PM CDT Delvin Mendenhall MD LAB BLOOD ORDERABLES Final Res ult Performing Organization Address City/[facility]/ZIP Co de Phone Number LAURIE ROSALES [address] [address] Department [place] [address] * ANCA (10/19/2024 12:15 PM CDT) Pathologist [facility] C-ANCA Negative Negative [place] ref [facility] P-ANCA Negative Negative LAURIE Comment: Negative for cANCA and pANCA patterns by immunofluorescence. ADDITIONAL INFORMATION This test was developed and its performance characteristics determined by [facility] in a manner consistent with CLIA requirements. This test has not been cleared or approved by the U.S. Food and Drug Administration. Test Performed by: [facility] Laboratories [place] [id number] Counsel: Hayder Arzola Ph.D.; CLIA# [id number] Blood 10/19/2024 12:1 5 PM CDT 10/19/2024 12:19 PM CDT Delvin Mendenhall MD LAB BLOOD ORDERABLES Final Res ult Performing Organization Address [facility] Co de Phone Number BRYNYEE ROSALES [address] [address] [place] [address] [place] ref [facility] * Erythrocyte sedimentation rate (10/19/2024 12:15 PM CDT) Pathologist [facility] Erythrocyte sedimentation rate 6 1 - 20 mm/hr Comment:Testing performed by : [facility], [facility], [place], [address] Blood 10/19/2024 12:1 5 PM CDT 10/19/2024 12:20 PM CDT us Delvin Mendenhall MD LAB BLOOD ORDERABLES Final Res ult Performing Organization Address [facility] de Phone Number LAURIE BOBBY [address] [address] [facility] [place] [address] * C3 complement (10/19/2024 12:15 PM CDT) Pathologist [facility] Complement C3 119 90 - 180 mg/dL Blood 10/19/2024 12:1 5 PM CDT 10/19/2024 12:20 PM CDT Delvin Mendenhall MD LAB BLOOD ORDERABLES Final Res ult Performing Organization Address [facility] de Phone Number LAURIE ROSALES [phone] [address] [facility] [place] [address] * Hemoglobin A1c (10/19/2024 12:15 PM CDT) Pathologist [facility] Hgb A1C 5.6 4.0 - 5.6 % Estimated Average Glucose 114 mg/dL LAURIE ROSALES Comment: The ADA recommends reporting an estimated Average Glucose (eAG) with all Hemoglobin A1c results using the equation derived from a study of 507 normal and diabetic adults. Minority populations were underrepresented and children were not included. (Diabetes Care 31:3948-1750, 2008). The eAG is not equivalent to a fasting glucose. Blood 10/19/2024 12:1 5 PM CDT 10/19/2024 12:20 PM CDT us Delvin Mendenhall MD LAB BLOOD ORDERABLES Final Res ult Performing Organization Address [facility] Co de Phone Number LAURIE BOBBY [address] [address] [facility] [place] [address] * (ABNORMAL) eGFR (10/19/2024 5:12 AM CDT) Pathologist [facility] eGFR 36(L) >=60 mL/min/1. 73 m2 Comment: [...] Spencer NP LAB BLOOD ORDERABLES Final Result [facility] [address] [address] Department [facility] Laboratories [place] [place] [address] * (ABNORMAL) Differential, auto (10/19/2024 5:12 AM CDT) Neutrophil abs 3.68 1.50 - 6.50 K/cumm Imm gran abs 0.02 0.00 - 0.10 K/cumm [facility] Lymphocyte abs 0.73(L) 0.80 - 3.30 K/cumm [facility] Monocyte abs 0.49 0.20 - 0.80 K/cumm [facility] Eosinophil abs 0.07 0.00 - 0.50 K/cumm [facility] Basophil abs 0.03 0.00 - 0.10 K/cumm [facility] Neutrophil pct 73.3 % [facility] Comment: Interpretive Data Percent cell count reference ranges are not reported, since discordance with absolute values may lead to misinterpretation of CBC data. Current Interpretive Data was last revised on 2017. Imm gran pct 0.4 % [facility] Comment: Interpretive Data Percent cell count reference ranges are not reported, since discordance with absolute values may lead to misinterpretation of CBC data. Current Interpretive Data was last revised on 2017. Lymphocyte pct 14.5 % [facility] Comment: Interpretive Data Percent cell count reference ranges are not reported, since discordance with absolute values may lead to misinterpretation of CBC data. Current Interpretive Data was last revised on 2017. Monocyte pct 9.8 % [facility] Comment: Interpretive Data Percent cell count reference ranges are not reported, since discordance with absolute values may lead to misinterpretation of CBC data. Current Interpretive Data was last revised on 2017. Eosinophil pct 1.4 % [facility] Comment: Interpretive Data Percent cell count reference ranges are not reported, since discordance with absolute values may lead to misinterpretation of CBC data. Current Interpretive Data was last revised on 2017. Basophil pct 0.6 % [facility] Comment: Interpretive Data Percent cell count reference ranges are not reported, since discordance with absolute values may lead to misinterpretation of CBC data. Current Interpretive Data was last revised on 2017. Blood 10/19/2024 5:12 AM CDT 10/19/2024 5:19 AM CDT Namrata Spencer NP LAB BLOOD ORDERABLES Final Result [facility] [address] Department [place] [address] * (ABNORMAL) CBC with auto differential (10/19/2024 5:12 AM CDT) WBC 5.02 3.80 - 9.90 K/cumm Hgb 15.5 13.0 - 17.5 g/dL [facility] Hct 48.5 38.9 - 50.3 % [facility] Plt 125(L) 150 - 400 K/cumm [facility] MPV 11.4 9.1 - 12.3 fL [facility] RBC 5.03 4.30 - 5.80 M/cumm [facility] MCV 96.4 81.3 - 96.4 fL [facility] MCH 30.8 27.1 - 33.3 pg [facility] MCHC 32.0(L) 32.3 - 35.7 g/dL [facility] RDW CV 17.0(H) 11.1 - 14.9 % [facility] RDW SD 59.9(H) 35.7 - 48.1 fL [facility] NRBC abs 0.00 0.00 - 0.01 K/cumm [facility] Blood 10/19/2024 5:12 AM CDT 10/19/2024 5:19 AM CDT Namrata Spencer NP LAB BLOOD ORDERABLES Final Result Performing Organization Address [facility] de Phone Number LAURIE [address] [place] [address] * (ABNORMAL) Protime-INR (10/19/2024 5:12 AM CDT) PT 34.7(H) 9.7 - 13.0 sec INR 3.14(H) 0.90 - 1.20 [facility] Comment: Interpretive data Oral anticoagulant therapeutic ranges: Venous thromboembolism prophylaxis or treatment: 2.0-3.0 CARDIOLOGY Standard range: 2.0-3.0 High-intensity range: 2.5-3.5 Refer to indication-specific guidelines for appropriate target ranges for prosthetic heart valve replacement. Current interpretive data was last revised on 2019. Blood 10/19/2024 5:12 AM CDT 10/19/2024 5:20 AM CDT Namrata Spencer NP LAB BLOOD ORDERABLES Final Result Performing Organization Address [facility] Co de Phone Number [facility] [id number] [facility] [place] [address] * Magnesium (10/19/2024 5:12 AM CDT) Magnesium 2.0 1.4 - 2.5 mg/dL Blood 10/19/2024 5:12 AM CDT 10/19/2024 5:20 AM CDT Namrata Spencer LAB BLOOD ORDERABLES Final Result LAURIE ROSALES [address] Department [place] [address] * (ABNORMAL) Basic metabolic panel (10/19/2024 5:12 AM CDT) [facility] Sodium 133(L) 135 - 145 mmol/L Potassium, pl 4.8 3.3 - 4.9 mmol/L [facility] Chloride 96(L) 97 - 110 mmol/L [facility] CO2 30 22 - 32 mmol/L [facility] Anion gap 7 2 - 15 mmol/L [facility] BUN 35(H) 6 - 25 mg/dL [facility] Creatinine 1.83(H) 0.80 - 1.30 mg/dL [facility] Glucose 87 70 - 199 mg/dL [facility] Comment: Interpretive Data Fasting glucose >/= [...] 2022. Calcium 9.2 8.5 - 10.3 mg/dL [facility] Blood 10/19/2024 5:12 AM CDT 10/19/2024 5:20 AM CDT Namrata Spencer NP LAB BLOOD ORDERABLES Final Result Performing Organization Address City/[facility]/ZIP Co de Phone Number LAURIE ROSALES [address] [place] [address] * (ABNORMAL) Troponin T high-sensitivity 6-hour (10/18/2024 4:32 PM CDT) Trop T hs 51(H) <=22 ng/L Comment: Interpretive Data For further hscTnT resources including the diagnostic algorithm and an aid in interpretation, copy and paste this link: https://nrl.testcatalog.org/show/hsTrop Current Interpretive Data last revised 2020. Trop T hs delta 0 ng/L [facility] Trop T hs interp Insignificant [facility] Blood 10/18/2024 4:32 PM CDT 10/18/2024 4:41 PM CDT Zeke Correa DO LAB BLOOD ORDERABLES Final Res ult Performing Organization Address [facility] Co de Phone Number [facility] [address] [place] [address] * (ABNORMAL) Digoxin level (10/18/2024 [...] CDT 10/18/2024 8:20 PM CDT Namrata Spencer [employer] LAB BLOOD ORDERABLES Final Result Performing Organization Address City/[facility]/ZIP Co de Phone Number [facility] [address] [place] [address] * (ABNORMAL) Troponin T high-sensitivity 4-hour (10/18/2024 2:42 PM CDT) Trop T hs 51(H) <=22 ng/L Comment: Interpretive Data For further hscTnT resources including the diagnostic algorithm and an aid in interpretation, copy and paste this link: https://nrl.testcatalog.org/show/hsTrop Current Interpretive Data last revised 2020. Trop T hs delta 0 ng/L [facility] Trop T hs interp Insignificant [facility] Blood 10/18/2024 2:42 PM CDT 10/18/2024 2:50 PM CDT us Zeke Correa DO LAB BLOOD ORDERABLES Final Res ult LAURIE [address] Department [place] [address] * CT Chest WO Contrast (10/18/2024 2:00 [...] Report: No growth Comment:Testing performed by : [facility], [address] [place]., [address] Blood (Peripheral) 10/18/2024 1:28 PM CDT 10/18/2024 5:03 PM CDT Ozzie SULLIVAN CH - 10/23/2024 7:00 AM CDT From a [...] performance characteristics have been verified by the [facility] Microbiology Laboratory. For questions about this culture, contact the Microbiology Laboratory at [phone]. Interpretive data was last revised on 24. us Zeke Correa DO LAB MICROBIOLOGY - GENERAL ORD ERABLES Final Result BRYNYEE BOBBY [address] Department [place] [address] * Blood culture Blood Peripheral (10/18/2024 1:28 PM CDT) Report Final Report: No growth Comment:Testing performed by : [facility], [address] [place]., [address] Blood (Peripheral) 10/18/2024 1:28 PM CDT 10/18/2024 [...] performance characteristics have been verified by the [facility] Microbiology Laboratory. For questions about this culture, contact the Microbiology Laboratory at [phone]. Interpretive data was last revised on 24. us Zeke Correa DO LAB MICROBIOLOGY - GENERAL ORD ERABLES Final Result LAURIE BOBBY [address] Department [place] [address] * (ABNORMAL) Troponin T high-sensitivity 2-hour (10/18/2024 12:26 PM CDT) Trop T hs 54(H) <=22 ng/L Comment: Interpretive Data For further hscTnT resources including the diagnostic algorithm and an aid in interpretation, copy and paste this link: https://nrl.testcatalog.org/show/hsTrop Current Interpretive Data last revised 2020. Trop T hs delta 3 ng/L CERYEE ROSALES Trop T hs interp Insignificant LAURIE ROSALES Blood 10/18/2024 12:2 6 PM CDT 10/18/2024 12:26 PM CDT us Zeke Correa DO LAB BLOOD ORDERABLES Final Res ult LAURIE [address] Department [place] [address] * (ABNORMAL) Pro B-type natriuretic peptide (10/18/2024 [...] et.al. Eur Heart J. 2006:27:330-337. 2. Daryl YOUSIF, Florecita AKBAR. J. AM Roger Cardiol: Cardiovasc Imag. 2009;2: 216- 225. Interpretive Data Last Revised Date: 2018. Blood 10/18/2024 12:2 6 PM CDT 10/18/2024 1:15 PM CDT us Zeke Correa DO LAB BLOOD ORDERABLES Final Res ult LAURIE [address] Department [place] [address] * XR Chest 1 Vw Portable (10/18/2024 [...] signed by: Rajendra Oh II, D.O. us Rajendra Kane Noguera PA IMG XR PROCEDURES Final Re sult * [...] Re sult - Final Performing Organization Address [facility] de Phone Number LAURIE BOBBY [address] [address] * Lactate (10/18/2024 10:41 AM CDT) Pathologist [facility] Lactate 1.3 0.7 - 2.0 mmol/L Blood 10/18/2024 10:4 1 AM CDT 10/18/2024 10:49 AM CDT Zeke Correa DO LAB BLOOD ORDERABLES Final Res ult Performing Organization Address [facility] [place] [address] [address] [place] [address] * (ABNORMAL) eGFR (10/18/2024 10:41 AM CDT) [...] DO LAB BLOOD ORDERABLES Final Res ult [facility] [address] Department [place] [address] * Differential, auto (10/18/2024 10:41 AM CDT) Neutrophil abs 3.39 1.50 - 6.50 K/cumm Imm gran abs 0.01 0.00 - 0.10 K/cumm [facility] Lymphocyte abs 0.86 0.80 - 3.30 K/cumm [facility] Monocyte abs 0.44 0.20 - 0.80 K/cumm [facility] Eosinophil abs 0.03 0.00 - 0.50 K/cumm [facility] Basophil abs 0.02 0.00 - 0.10 K/cumm [facility] Neutrophil pct 71.4 % [facility] Comment: Interpretive Data Percent cell count reference ranges are not reported, since discordance with absolute values may lead to misinterpretation of CBC data. Current Interpretive Data was last revised on 2017. Imm gran pct 0.2 % [facility] Comment: Interpretive Data Percent cell count reference ranges are not reported, since discordance with absolute values may lead to misinterpretation of CBC data. Current Interpretive Data was last revised on 2017. Lymphocyte pct 18.1 % [facility] Comment: Interpretive Data Percent cell count reference ranges are not reported, since discordance with absolute values may lead to misinterpretation of CBC data. Current Interpretive Data was last revised on 2017. Monocyte pct 9.3 % [facility] Comment: Interpretive Data Percent cell [...] DO LAB BLOOD ORDERABLES Final Res ult [facility] [address] Department of Laboratories [place], [place] [address] * Respiratory pathogen panel Nasopharyngeal (10/18/2024 10:41 AM CDT) Pathologist [facility] Influenza A RNA Not Detected Not Detected Influenza B RNA Not Detected Not Detected [facility] RSV RNA Not Detected Not Detected [facility] COVID-19 RNA Not Detected Not Detected [facility] Coronavirus 229E RNA Not Detected Not Detected [facility] Coronavirus HKU1 RNA Not Detected Not Detected [facility] Coronavirus NL63 RNA Not Detected Not Detected [facility] Coronavirus OC43 RNA Not Detected Not Detected [facility] Adenovirus DNA Not Detected Not Detected [facility] Metapneumovirus RNA Not Detected Not Detected [facility] Rhinovirus/Enterov irus RNA Not Detected Not Detected [facility] Parainfluenza 1 RNA Not Detected Not Detected [facility] Parainfluenza 2 RNA Not Detected Not Detected [facility] Parainfluenza 3 RNA Not Detected Not Detected [facility] Parainfluenza 4 RNA Not Detected Not Detected [facility] B. pertussis DNA Not Detected Not Detected [facility] B. parapertussis DNA Not Detected Not Detected [facility] C. pneumoniae DNA Not Detected Not Detected [facility] M. pneumoniae DNA Not Detected Not Detected [facility] Comment: Interpretive Data The [employer] FilmArray Respiratory Panel (RP2.1) assay is a [...] assay has FDA clearance for testing of KNIFE GLAZER swabs. The performance characteristics of this assay have been determined by [facility]. Current interpretive data was last revised on 2020. Nasopharyngeal 10/18/2024 10 :41 AM CDT 10/18/2024 10:53 AM CDT Narrative [facility] - 10/18/2024 12:10 PM CDT Is the Patient experiencing symptoms consistent with COVID?->Yes Surveillance testing for transplant patient?->No Zeke Correa DO LAB MICROBIOLOGY - GENERAL ORD ERABLES Final Result Performing Organization Address City/[facility]/ZIP Co de Phone Number LAURIE ROSALES [address] [place] [address] CH * (ABNORMAL) CBC with auto differential (10/18/2024 10:41 AM CDT) [facility] WBC 4.75 3.80 - 9.90 K/cumm Hgb 15.5 13.0 - 17.5 g/dL [facility] Hct 47.4 38.9 - 50.3 % [facility] Plt 132(L) 150 - 400 K/cumm [facility] MPV 12.2 9.1 - 12.3 fL [facility] RBC 4.95 4.30 - 5.80 M/cumm [facility] MCV 95.8 81.3 - 96.4 fL [facility] MCH 31.3 27.1 - 33.3 pg [facility] MCHC 32.7 32.3 - 35.7 g/dL [facility] RDW CV 17.1(H) 11.1 - 14.9 % [facility] RDW SD 59.9(H) 35.7 - 48.1 fL [facility] NRBC abs 0.00 0.00 - 0.01 K/cumm [facility] Blood 10/18/2024 10:4 1 AM CDT 10/18/2024 10:56 AM CDT Zeke Correa DO LAB BLOOD ORDERABLES Final Res ult Performing Organization Address City/[facility]/ZIP Co de Phone Number LAURIE ROSALES [address] Department [place] [address] * (ABNORMAL) Comprehensive metabolic panel [...] BLOOD ORDERABLES Final Res ult LAURIE ROSALES [address] Department [place] [address] * ECG 12 lead (10/18/2024 10:33 AM CDT) 10/18/2024 10:3 3 AM CDT Narrative [facility] - 10/18/2024 2:59 PM CDT Vent Rate: 80 bpm RR Interval: 749 msec NC Interval: 140 msec QRS Duration: 164 msec QT Interval: 377 msec QTC Interval: 412 msec P-R-T [place]: -52 - 226 - 226 degrees IMPRESSION: ELECTRONIC VENTRICULAR PACEMAKER ST DEPRESSION, CONSIDER SUBENDOCARDIAL INJURY [0.1+ mV ST DEPRESSION] ABNORMAL ECG No change compared to prior EKG Electronically Signed By: Emilio Ratliff MD [facility] us Zeke Correa DO ECG ORDERABLES Final Result [facility] from Last 3 Months [place] [address] [employer] MEDICARE SUPPLEMENT [facility] MEDICARE [facility] MEDICARE Advance Directives For more information, please contact: [phone] Documents on File Type Date Recorded Patient Harness Maker Expl anation ADVANCE DIRECTIVE 02/25/2023 4:32 PM HOLLAND Fuentes WILL * LIMITED - No CPR (Latest Code [...] 5:03 PM 02/24/2023 6:21 PM Care Teams Special Education Aide Relationship Specialty Start Date End Date Sharita Kelly MD [address] [place] [address] PCP - General Family Medicine 02/24/23 Donte Camacho MD [address] [place] [address] Consulting Physician Cardiology 02/24/23 Delvin Mendenhall MD [address] [place] [address] Consulting Physician Nephrology 02/24/23 [place] [address] [address] [facility] [address] [place] [address] Consulting Physician Pulmonary Disease 11/03/24 Lorie Murray, [employer]ER [address] [facility] [address] [place] [address] Nurse Practitioner Urology 11/03/24
--- OUTSIDE RECORDS SUMMARY | 2024-11-04 15:07 | XMS_ITS ---
Author Name Auto Generated, Auto Generated Organization [facility] ices Address [address] [place] [address] Phone [phone] Care Team Providers Care Darklight Inspector Name Role Phone Diandra Fernandez Unavailable Zoe Templeherine Unavailable FloryDanisha franks Unavailable [phone] Functional Status No Results Mental Status No Results Allergies and Intolerances Name Onset Date Reaction Severity Vicodin (Allergy) [facility] Nov 03 15:13:00 EDT 2024 tramadol (Allergy) [facility] Nov 03 15:13:00 EDT 2024 Lunesta (Allergy) [facility] Nov 03 15:13:00 EDT 2024 hydrocodone (Allergy) [facility] Nov 03 15:13:00 EDT 20 25 morphine (Allergy) [facility] Nov 03 15:13:00 EDT 2024 trazodone HCl (Allergy) [facility] Nov 03 15:13:00 EDT 2024 Encounters Program Name Primary Diagnosis Admission Date/Time Dis charge Date/Time Alf Care Facility [facility] Nov 03 12:13:00 EDT 2024 Medications Medication Directions Start Date End Date TubersoL 5 tub. unit/0.1 mL intradermal injection solution 1 Application VIAL (ML) Other 1 Time Daily for 1 Day Indication: . Read results between 48-72 hours after 1st and 2nd (1 week apart). Any reading of 10mm or greater results in a positive test, an x-ray will need to be ordered as a follow up. Sun Nov 06 07:00:00 EDT 2024 Mon Oct 16 06:59:00 EDT 2024 ipratropium 0.5 mg-albuteroL 3 mg (2.5 mg base)/3 mL nebulization soln 1 vial AMPUL FOR NEBULIZATION (ML) Inhalation PRN Every 4 Hours Indication: SOB ThuNov 04 03:30:00 EDT 2024 clorazepate dipotassium 7.5 mg tablet 1 tab TABLET Oral 2 Times Daily Indication: anxiety ThuNov 04 15:02:00 EDT 2024 Jantoven 2 mg tablet 1 tab TABLET Oral 1 Time Weekly Indication: anticoagulant ThuNov 04 15:05:00 EDT 2024 Jantoven 1 mg tablet 1 tab TABLET Oral 6 Times Weekly Indication: anticoagulant ThuNov 04 15:05:00 EDT 2024 amoxicillin 875 mg-potassium clavulanate 125 mg tablet 1 tab TABLET Oral 2 Times Daily Indication: pneumonia ThuNov 03 15:00:00 EDT 2024Nov 03 16:26:00 EDT 2024 atenoloL 50 mg tablet 1 tab TABLET Oral 1 Time Daily Indication: HTN ThuNov 03 15:00:00 EDT 2024 atorvastatin 20 mg tablet 1 tab TABLET O ral 1 Time Daily Indication: HDL ThuNov 03 15:00:00 EDT 2024 calcitrioL 0.25 mcg capsule 1 cap CAPSUL E Oral 1 Time Daily Indication: deficiency ThuNov 03 15:00:00 EDT 2024 clorazepate dipotassium 7.5 mg tablet 1 tab TABLET Oral 2 Times Daily Indication: anxiety ThuNov 03 15:00:00 EDT 2024Nov 04 15:03:00 EDT 2024 ergocalciferol (vitamin D2) 1,250 mcg (50,000 unit) capsule 1 cap CAPSULE Oral 1 Time Weekly Indication: deficiency ThuNov 03 15:00:00 EDT 2024 fenofibrate nanocrystallized 145 mg tablet 1 tab TABLET Oral 1 Time Daily Indication: high cholesterol ThuNov 03 15:00:00 EDT 2024 fluticasone propionate 50 mcg/actuation nasal spray,suspension 2 sprays SPRAY, SUSPENSION (ML) Intranasal PRN Indication: allergies ThuNov 03 15:00:00 EDT 2024 levothyroxine 25 mcg tablet 1 tab TABLET Oral 1 Time Daily Indication: hypothyroidism ThuNov 03 15:00:00 EDT 2024 midodrine 10 mg tablet 1 tab TABLET Oral 3 Times Daily Indication: hypotension ThuNov 03 15:00:00 EDT 2024 tamsulosin 0.4 mg capsule 1 cap CAPSULE Oral 1 Time Daily Indication: BPH ThuNov 03 15:00:00 EDT 2024 dofetilide 125 mcg capsule 1 cap CAPSULE Oral 2 Times Daily Indication: arrythmia ThuNov 03 15:00:00 EDT 2024 Jantoven 2 mg tablet 1 tab TABLET Oral 1 Time Weekly Indication: anticoagulant ThuNov 03 15:00:00 EDT 2024Nov 04 15:06:00 EDT 2024 Jantoven 1 mg tablet 1 tab TABLET Oral 6 Times Weekly Indication: anticoagulant ThuNov 03 15:00:00 EDT 2024Nov 04 15:07:00 EDT 2024 TubersoL 5 tub. unit/0.1 mL intradermal injection solution 0.1 Milliliter VIAL (ML) Intradermal 1 Time Daily for 1 Day Indication: . 1 Step PPD- Read between 48 and 72 hours ThuNov 04 07:00:00 EDT 2024Nov 05 06:59:00 EDT 2024 amoxicillin 875 mg-potassium clavulanate 125 mg tablet 1 tab TABLET Oral 2 Times Daily for 14 Days Indication: pneumonia ThuNov 03 15:00:00 EDT 2024 [facility] Nov 17 14:59:00 EDT 2024 Problems No Known Problems Vital Signs Vital Sign Measurement Date Systolic Blood Pressure 146.00 mm[Hg] ThuNov 04 08:43:31 EDT 2024 Diastolic Blood Pressure 79.00 mm[Hg] ThuNov 04 08:43:31 EDT 2024 Pulse Oximetry 84.00 % ThuNov 04 08:43 :31 EDT 2024 Pulse Oximetry 84.00 % ThuNov 04 08:43 :31 EDT 2024 Heart Rate 80.00 /min ThuNov 04 08:43 :31 EDT 2024 Respiratory rate 22.00 /min ThuNov 04 08:4 3:31 EDT 2024 Body temperature 97.20 [degF] ThuNov 04 08:4 3:31 EDT 2024 Systolic Blood Pressure 107.00 mm[Hg] ThuNov 04 01:06:34 EDT 2024 Diastolic Blood Pressure 68.00 mm[Hg] ThuNov 04 01:06:34 EDT 2024 Pulse Oximetry 90.00 % ThuNov 04 01:06 :34 EDT 2024 Respiratory rate 20.00 /min ThuNov 04 01:0 6:34 EDT 2024 Body temperature 97.40 [degF] ThuNov 04 01:0 6:34 EDT 2024 Heart Rate 85.00 /min ThuNov 04 01:06 :34 EDT 2024 Systolic Blood Pressure 114.00 mm[Hg] ThuNov 03 16:37:00 EDT 2024 Diastolic Blood Pressure 73.00 mm[Hg] ThuNov 03 16:37:00 EDT 2024 Pulse Oximetry 92.00 % ThuNov 03 16:37 :00 EDT 2024 Body Height 79.00 [in_i] ThuNov 03 16:37 :00 EDT 2024 Respiratory rate 16.00 /min ThuNov 03 16:3 7:00 EDT 2024 Body temperature 97.40 [degF] ThuNov 03 16:3 7:00 EDT 2024 Heart Rate 79.00 /min ThuNov 03 16:37 :00 EDT 2024 Reason for Referral
--- OUTSIDE RECORDS SUMMARY | 2024-11-04 15:07 | XMS_ITS | Continuity of Care Document ---
Author Organization [facility] Address [address] [place] [address] [address] [place] [address] Phone Care Team Providers Care Drafter Topographical Name Role Phone Riley Muller Unavailable Unavailable Advance Directives Directive Yes / No Effective Date File Name No Information Encounters Encounter Description Practice Location Reason(s) For Visit Diagnoses Date Provider Providers Copied on Encounter [facility], [id number] [place] [address] [address], [place], [place], [id number], [place] tel:[phone] [facility] No Information 4 Paosy Edward. [address] , [address], [place], [address], [place]. tel:[phone] Family History Family Member Type Diagnosis Age At Onset No Information Payers Payer name Insurance type Covered alliance party ID Authoriza tion(s) [employer] SOI CI [id number] Social History Type Description Quantity Date Captured [...]
--- OUTSIDE RECORDS SUMMARY | 2024-11-04 15:07 | XMS_ITS | Encounter Summary ---
Author Organization [facility] Healthcare Address [address] [place] [address] Care Team Providers Care Analyst Sales Name Role Phone Sharita Kelly MD Primary Care Provider Donte Camacho MD Unavailable Delvin Mendenhall MD Unavailable [phone] Shailesh Pabon MD Unavailable Lorie Murray NP Unavailable [phone] Encounter Details Date Type Department Care Team (Late st Contact Info) Description 11/04/2024 Hospital Encounter [facility] [address] [place] [address] Max Phillips MD [address] [facility] [address] [place], [place] [id number] Social History Tobacco Use Types Packs/Day Years Used Date Smoking Tobacco: Former Cigarettes - 1997 Passive Smoke Exposure: Past Smokeless Tobacco: Never [facility] Utilities Answer Date Recorded In the past 12 months has [employer] electric, gas, oil, or water [employer] threatened to shut off services in your [...] How often do you attend chur or yazidism services? More than 4 times per year 10/19/2024 Do you belong to any clubs o r organizations such as sabianism groups, unions, fraternal or athletic groups, or [...] place to sleep or slept in a penitentiary (including now)? No 02/24/2023 Housing Stability Vital Sign Answer Carmine e Recorded In the last 12 months, was t here a time when you were not able to pay the mortgage or rent on time? No 10/19/2024 In the past 12 months, how m any times have you moved where you were living? 0 10/19/2024 At any time in the past 12 m ont, were you homeless or living in a penitentiary (including now)? No 10/19/2024 Personal Safety Answer Date Recorded Have you ever been in or are you currently in a harmful physical or emotional relationship or is someone making you feel afraid or unsafe? Denies 10/18/2024 Sex and Gender Information Value Date Recorded Sex Assigned at Not on file Legal Sex Male 11:25 AM [employer] Gender Identity Not on file Sexual Orientation Not on file documented as of this encounter Plan of Treatment Not on file documented as of this encounter Visit Diagnoses Not on filedocumented in this encounter Care Teams Analyst Sales Relationship Specialty Start Date End Date Sharita Kelly MD [address] [place] [address] PCP - General Family Medicine 02/24/23 Donte Camacho MD [address] [place] [address] Consulting Physician Cardiology 02/24/23 Delvin Mendenhall MD [address] [place] [address] Consulting Physician Nephrology 02/24/23 [place] [address] [facility] [address] [place] [address] Consulting Physician Pulmonary Disease 11/03/24 Lorie Murray, PHOTO COLORER [id number] [facility] [address] [place] [address] Nurse Practitioner Urology 11/03/24 documented as of this encounter
--- OUTSIDE RECORDS SUMMARY | 2024-11-04 15:08 | XMS_ITS ---
Blood 10/28/2024 4:13 AM CDT 10/28/2024 4:24 AM CDT us Namrata Julianewilliam Johanna [facility] LAB BLOOD ORDERABLES Final Result LAURIE [address] [place] [address] * (ABNORMAL) Differential, auto (10/28/2024 4:13 AM CDT) Neutrophil abs 2.25 1.50 - 6.50 K/cumm Imm gran abs 0.01 0.00 - 0.10 K/cumm [facility] Lymphocyte abs 0.54(L) 0.80 - 3.30 K/cumm [facility] Monocyte abs 0.39 0.20 - 0.80 K/cumm [facility] Eosinophil abs 0.08 0.00 - 0.50 K/cumm [facility] Basophil abs 0.01 0.00 - 0.10 K/cumm [facility] Neutrophil pct 68.6 % [facility] Comment: Interpretive Data Percent cell count reference ranges are not reported, since discordance with absolute values may lead to misinterpretation of CBC data. Current Interpretive Data was last revised on 2017. Imm gran pct 0.3 % [facility] Comment: Interpretive Data Percent cell count reference ranges are not reported, since discordance with absolute values may lead to misinterpretation of CBC data. Current Interpretive Data was last revised on 2017. Lymphocyte pct 16.5 % [facility] Comment: Interpretive Data Percent cell count reference ranges are not reported, since discordance with absolute values may lead to misinterpretation of CBC data. Current Interpretive Data was last revised on 2017. Monocyte pct 11.9 % [facility] Comment: Interpretive Data Percent cell count reference ranges are not reported, since discordance with absolute values may lead to misinterpretation of CBC data. Current Interpretive Data was last revised on 2017. Eosinophil pct 2.4 % [facility] Comment: Interpretive Data Percent cell count reference ranges are not reported, since discordance with absolute values may lead to misinterpretation of CBC data. Current Interpretive Data was last revised on 2017. Basophil pct 0.3 % [facility] Comment: Interpretive Data Percent cell count reference ranges are not reported, since discordance with absolute values may lead to misinterpretation of CBC data. Current Interpretive Data was last revised on 2017. Blood 10/28/2024 4:13 AM CDT 10/28/2024 4:26 AM CDT Namrata Spencer PAINTER HAND LAB BLOOD ORDERABLES Final Result Performing Organization Address City/[facility]/ZIP Co de Phone Number BRYNYEE ROSALES [address] Department of Laboratories [place], [place] [id number] * (ABNORMAL) Protime-INR (10/28/2024 4:13 AM CDT) [...] ORDERABLES Fay l Result Performing Organization Address City/[facility]/ZIP Co de Phone Number LAURIE [address] [address] Department [place] [address] * (ABNORMAL) Basic metabolic panel (10/28/2024 4:13 AM CDT) Sodium 127(L) 135 - 145 mmol/L Potassium, pl 3.9 3.3 - 4.9 mmol/L [facility] Chloride 88(L) 97 - 110 mmol/L [facility] CO2 37(H) 22 - 32 mmol/L [facility] Anion gap 2 2 - 15 mmol/L [facility] BUN 37(H) 6 - 25 mg/dL [facility] Creatinine 1.36(H) 0.80 - 1.30 mg/dL [facility] Comment:Icteric sample, test results may be affected. Glucose 92 70 - 199 mg/dL [facility] Comment: Interpretive Data Fasting glucose >/= [...] 2022. Calcium 8.4(L) 8.5 - 10.3 mg/dL [facility] Blood 10/28/2024 4:13 AM CDT 10/28/2024 4:24 AM CDT Namrata Spencer NP LAB BLOOD ORDERABLES Final Result [facility] [id number] Department [place] [address] * (ABNORMAL) CBC with auto differential (10/28/2024 4:13 AM CDT) WBC 3.28(L) 3.80 - 9.90 K/cumm Hgb 12.2(L) 13.0 - 17.5 g/dL [facility] Hct 36.0(L) 38.9 - 50.3 % [facility] Plt 115(L) 150 - 400 K/cumm [facility] MPV 11.9 9.1 - 12.3 fL [facility] RBC 3.95(L) 4.30 - 5.80 M/cumm [facility] MCV 91.1 81.3 - 96.4 fL [facility] MCH 30.9 27.1 - 33.3 pg [facility] MCHC 33.9 32.3 - 35.7 g/dL [facility] RDW CV 15.5(H) 11.1 - 14.9 % [facility] RDW SD 51.6(H) 35.7 - 48.1 fL [facility] NRBC abs 0.00 0.00 - 0.01 K/cumm [facility] Blood 10/28/2024 4:13 AM CDT 10/28/2024 4:26 AM CDT Namrata Spencer NP LAB BLOOD ORDERABLES Final Result Performing Organization Address [facility] Co de Phone Number LAURIE ROSALES [id number] Department [place] [address] * Magnesium (10/28/2024 4:13 AM CDT) Magnesium 1.8 1.4 - 2.5 mg/dL Blood 10/28/2024 4:13 AM CDT 10/28/2024 4:24 AM CDT Ryan Bailey MD LAB BLOOD ORDERABLES Final Resu lt Performing Organization Address [facility] de Phone Number [facility] [address] [place] [address] * XR Chest 1 View (10/27/2024 11:28 [...] NP LAB BLOOD ORDERABLES Final Result LAURIE [address] [place] [address] * (ABNORMAL) Differential, auto (10/27/2024 6:26 AM CDT) Neutrophil abs 2.10 1.50 - 6.50 K/cumm Imm gran abs 0.00 0.00 - 0.10 K/cumm [facility] Lymphocyte abs 0.55(L) 0.80 - 3.30 K/cumm [facility] Monocyte abs 0.35 0.20 - 0.80 K/cumm [facility] Eosinophil abs 0.09 0.00 - 0.50 K/cumm [facility] Basophil abs 0.02 0.00 - 0.10 K/cumm [facility] Neutrophil pct 67.5 % [facility] Comment: Interpretive Data Percent cell count reference ranges are not reported, since discordance with absolute values may lead to misinterpretation of CBC data. Current Interpretive Data was last revised on 2017. Imm gran pct 0.0 % [facility] Comment: Interpretive Data Percent cell count reference ranges are not reported, since discordance with absolute values may lead to misinterpretation of CBC data. Current Interpretive Data was last revised on 2017. Lymphocyte pct 17.7 % [facility] Comment: Interpretive Data Percent cell count reference ranges are not reported, since discordance with absolute values may lead to misinterpretation of CBC data. Current Interpretive Data was last revised on 2017. Monocyte pct 11.3 % [facility] Comment: Interpretive Data Percent cell count reference ranges are not reported, since discordance with absolute values may lead to misinterpretation of CBC data. Current Interpretive Data was last revised on 2017. Eosinophil pct 2.9 % [facility] Comment: Interpretive Data Percent cell count reference ranges are not reported, since discordance with absolute values may lead to misinterpretation of CBC data. Current Interpretive Data was last revised on 2017. Basophil pct 0.6 % [facility] Comment: Interpretive Data Percent cell count reference ranges are not reported, since discordance with absolute values may lead to misinterpretation of CBC data. Current Interpretive Data was last revised on 2017. Blood 10/27/2024 6:26 AM CDT 10/27/2024 6:47 AM CDT Namrata Spencer NP LAB BLOOD ORDERABLES Final Result Performing Organization Address [facility] de Phone Number LAURIE ROSALES [address] Department [place] [address] * (ABNORMAL) Protime-INR (10/27/2024 6:26 AM CDT) PT 16.2(H) 9.7 - 13.0 sec INR 1.49(H) 0.90 - 1.20 [facility] Comment: Interpretive data Oral anticoagulant therapeutic ranges: Venous thromboembolism prophylaxis or treatment: 2.0-3.0 CARDIOLOGY Standard range: 2.0-3.0 High-intensity range: 2.5-3.5 Refer to indication-specific guidelines for appropriate target ranges for prosthetic heart valve replacement. Current interpretive data was last revised on 2019. Blood 10/27/2024 6:26 AM CDT 10/27/2024 6:46 AM CDT Luan Guillermo DO LAB BLOOD ORDERABLES Fay l Result Performing Organization Address [facility] de Phone Number LAURIE ROSALES [address] Department [place] [address] * (ABNORMAL) Basic metabolic panel (10/27/2024 6:26 AM CDT) Sodium 127(L) 135 - 145 mmol/L Potassium, pl 3.6 3.3 - 4.9 mmol/L [facility] Chloride 87(L) 97 - 110 mmol/L [facility] CO2 36(H) 22 - 32 mmol/L [facility] Anion gap 4 2 - 15 mmol/L [facility] BUN 37(H) 6 - 25 mg/dL [facility] Creatinine 1.40(H) 0.80 - 1.30 mg/dL [facility] Glucose 95 70 - 199 mg/dL [facility] Comment: Interpretive Data Fasting glucose >/= [...] 2022. Calcium 8.3(L) 8.5 - 10.3 mg/dL [facility] Blood 10/27/2024 6:26 AM CDT 10/27/2024 6:47 AM CDT Namrata Spencer NP LAB BLOOD ORDERABLES Final Result [facility] [address] [place] [address] * (ABNORMAL) CBC with auto differential (10/27/2024 6:26 AM CDT) WBC 3.11(L) 3.80 - 9.90 K/cumm Hgb 12.1(L) 13.0 - 17.5 g/dL [facility] Hct 36.1(L) 38.9 - 50.3 % [facility] Plt 99(L) 150 - 400 K/cumm [facility] MPV 12.3 9.1 - 12.3 fL [facility] RBC 3.92(L) 4.30 - 5.80 M/cumm [facility] MCV 92.1 81.3 - 96.4 fL [facility] MCH 30.9 27.1 - 33.3 pg [facility] MCHC 33.5 32.3 - 35.7 g/dL [facility] RDW CV 16.0(H) 11.1 - 14.9 % [facility] RDW SD 53.5(H) 35.7 - 48.1 fL [facility] NRBC abs 0.00 0.00 - 0.01 K/cumm [facility] Blood 10/27/2024 6:26 AM CDT 10/27/2024 6:47 AM CDT Namrata Spencer NP LAB BLOOD ORDERABLES Final Result LAURIE ROSALES [address] Department [place] [address] * XR Chest 1 View (10/26/2024 11:06 [...] congestion. No focal infiltrate seen. Procedure Note oCco Youngblood MD - 10/26/2024 EXAMINATION: XR CHEST [...] signed by: Coco Youngblood M.D. Nitesh Phillips PAINTER HAND IMG XR PROCEDURES Final R esult * [...] LAB BLOOD ORDERABLES Final Result LAURIE ROSALES [address] Department of Laboratories [place], [place] [id number] * T4, free (10/26/2024 6:28 AM CDT) Free T4 1.43 0.90 - 1.70 ng/dL Blood 10/26/2024 6:28 AM CDT 10/26/2024 6:44 AM CDT Donte Camacho MD LAB BLOOD ORDERABLES Final Result LAURIE [address] [place] [address] * (ABNORMAL) Differential, auto (10/26/2024 6:28 AM CDT) Neutrophil abs 2.38 1.50 - 6.50 K/cumm Imm gran abs 0.01 0.00 - 0.10 K/cumm [facility] Lymphocyte abs 0.60(L) 0.80 - 3.30 K/cumm [facility] Monocyte abs 0.41 0.20 - 0.80 K/cumm [facility] Eosinophil abs 0.10 0.00 - 0.50 K/cumm [facility] Basophil abs 0.02 0.00 - 0.10 K/cumm LAURIE Neutrophil pct 67.7 % LAURIE Comment: Interpretive Data Percent cell [...] revised on 2017. Monocyte pct 11.6 % LAURIE Comment: Interpretive Data Percent cell [...] LAB BLOOD ORDERABLES Final Result LAURIE ROSALES [address] [place] [address] * (ABNORMAL) Protime-INR (10/26/2024 6:28 AM CDT) PT 16.9(H) 9.7 - 13.0 sec INR 1.55(H) 0.90 - 1.20 LAURIE ROSALES Comment: Interpretive [...] DO LAB BLOOD ORDERABLES Fay l Result [facility] [address] [address] Department [place] [address] * (ABNORMAL) Basic metabolic panel (10/26/2024 6:28 AM CDT) Sodium 129(L) 135 - 145 mmol/L Potassium, pl 3.9 3.3 - 4.9 mmol/L [facility] Chloride 89(L) 97 - 110 mmol/L [facility] CO2 33(H) 22 - 32 mmol/L [facility] Anion gap 7 2 - 15 mmol/L [facility] BUN 43(H) 6 - 25 mg/dL [facility] Creatinine 1.65(H) 0.80 - 1.30 mg/dL [facility] Glucose 94 70 - 199 mg/dL [facility] Comment: Interpretive Data Fasting glucose >/= [...] 2022. Calcium 8.5 8.5 - 10.3 mg/dL [facility] Blood 10/26/2024 6:28 AM CDT 10/26/2024 6:44 AM CDT Namrata Spencer NP LAB BLOOD ORDERABLES Final Result LAURIE Norman [address] Department [place] [address] * (ABNORMAL) CBC with auto differential (10/26/2024 [...] BLOOD ORDERABLES Final Result LAURIE Norman [address] Department of Laboratories [place], [place] [id number] * (ABNORMAL) Thyroid Function [place] (10/26/2024 6:28 AM CDT) TSH 6.60(H) 0.30 - 4.20 mcIUnit/mL Blood 10/26/2024 6:28 AM CDT 10/26/2024 6:44 AM CDT Donte Camacho MD LAB BLOOD ORDERABLES Final Result Performing Organization Address [facility] de Phone Number LAURIE ROSALES [id number] [address] [facility] [employer] [place] [address] * Cortisol (10/26/2024 6:28 AM CDT) Cortisol [...] BLOOD ORDERABLES Final Result Performing Organization Address [facility] de Phone Number LAURIE ROSALES [address] [address] [facility] [employer] [place] [address] * (ABNORMAL) eGFR (10/25/2024 6:58 AM CDT) [...] Spencer NP LAB BLOOD ORDERABLES Final Result [facility] [address] [address] [place] [address] * (ABNORMAL) Differential, auto (10/25/2024 6:58 AM CDT) Neutrophil abs 2.57 1.50 - 6.50 K/cumm Imm gran abs 0.01 0.00 - 0.10 K/cumm [facility] Lymphocyte abs 0.46(L) 0.80 - 3.30 K/cumm [facility] Monocyte abs 0.39 0.20 - 0.80 K/cumm [facility] Eosinophil abs 0.09 0.00 - 0.50 K/cumm [facility] Basophil abs 0.02 0.00 - 0.10 K/cumm [facility] Neutrophil pct 72.6 % [facility] Comment: Interpretive Data Percent cell count reference ranges are not reported, since discordance with absolute values may lead to misinterpretation of CBC data. Current Interpretive Data was last revised on 2017. Imm gran pct 0.3 % [facility] Comment: Interpretive Data Percent cell count reference ranges are not reported, since discordance with absolute values may lead to misinterpretation of CBC data. Current Interpretive Data was last revised on 2017. Lymphocyte pct 13.0 % [facility] Comment: Interpretive Data Percent cell count reference ranges are not reported, since discordance with absolute values may lead to misinterpretation of CBC data. Current Interpretive Data was last revised on 2017. Monocyte pct 11.0 % [facility] Comment: Interpretive Data Percent cell count reference ranges are not reported, since discordance with absolute values may lead to misinterpretation of CBC data. Current Interpretive Data was last revised on 2017. Eosinophil pct 2.5 % [facility] Comment: Interpretive Data Percent cell count [...] CDT 10/25/2024 7:21 AM CDT Namrata Spencer PAINTER HAND LAB BLOOD ORDERABLES Final Result Performing Organization Address [facility] Co de Phone Number LAURIE [address] [place] [address] * (ABNORMAL) Protime-INR (10/25/2024 6:58 AM CDT) PT 18.0(H) 9.7 - 13.0 sec INR 1.65(H) 0.90 - 1.20 LAURIE Comment: Interpretive data [...] ORDERABLES Fay l Result Performing Organization Address [facility] Co de Phone Number LAURIE [address] [place] [address] * (ABNORMAL) Basic metabolic panel (10/25/2024 6:58 AM CDT) Sodium 134(L) 135 - 145 mmol/L Potassium, pl 3.8 3.3 - 4.9 mmol/L [facility] Chloride 93(L) 97 - 110 mmol/L [facility] CO2 34(H) 22 - 32 mmol/L [facility] Anion gap 7 2 - 15 mmol/L [facility] BUN 46(H) 6 - 25 mg/dL [facility] Creatinine 1.70(H) 0.80 - 1.30 mg/dL [facility] Glucose 102 70 - 199 mg/dL [facility] Comment: Interpretive Data Fasting glucose >/= [...] 2022. Calcium 8.6 8.5 - 10.3 mg/dL [facility] Blood 10/25/2024 6:58 AM CDT 10/25/2024 7:21 AM CDT Namrata Spencer NP LAB BLOOD ORDERABLES Final Result [facility] [address] [place] [address] * (ABNORMAL) CBC with auto differential (10/25/2024 6:58 AM CDT) WBC 3.54(L) 3.80 - 9.90 K/cumm Hgb 12.9(L) 13.0 - 17.5 g/dL [facility] Hct 38.5(L) 38.9 - 50.3 % [facility] Plt 91(L) 150 - 400 K/cumm [facility] MPV 11.6 9.1 - 12.3 fL [facility] RBC 4.15(L) 4.30 - 5.80 M/cumm [facility] MCV 92.8 81.3 - 96.4 fL [facility] MCH 31.1 27.1 - 33.3 pg [facility] MCHC 33.5 32.3 - 35.7 g/dL [facility] RDW CV 16.2(H) 11.1 - 14.9 % [facility] RDW SD 54.5(H) 35.7 - 48.1 fL [facility] NRBC abs 0.00 0.00 - 0.01 K/cumm [facility] Blood 10/25/2024 6:58 AM CDT 10/25/2024 7:21 AM CDT Namrata Spencer PAINTER HAND LAB BLOOD ORDERABLES Final Result LAURIE [address] Department [place] [address] * XR Chest 1 Vw Portable (10/24/2024 [...] Spencer NP LAB BLOOD ORDERABLES Final Result [facility] [address] [address] [place] [address] * (ABNORMAL) Differential, auto (10/24/2024 4:15 AM CDT) Neutrophil abs 2.69 1.50 - 6.50 K/cumm Imm gran abs 0.01 0.00 - 0.10 K/cumm [facility] Lymphocyte abs 0.56(L) 0.80 - 3.30 K/cumm [facility] Monocyte abs 0.42 0.20 - 0.80 K/cumm [facility] Eosinophil abs 0.11 0.00 - 0.50 K/cumm [facility] Basophil abs 0.02 0.00 - 0.10 K/cumm [facility] Neutrophil pct 70.6 % LAURIE Comment: Interpretive Data Percent cell [...] revised on 2017. Lymphocyte pct 14.7 % LAURIE Comment: Interpretive Data Percent cell count reference ranges are not reported, since discordance with absolute values may lead to misinterpretation of CBC data. Current Interpretive Data was last revised on 2017. Monocyte pct 11.0 % LAURIE Comment: Interpretive Data Percent cell count reference ranges are not reported, since discordance with absolute values may lead to misinterpretation of CBC data. Current Interpretive Data was last revised on 2017. Eosinophil pct 2.9 % LAURIE Comment: Interpretive Data Percent cell count reference ranges are not reported, since discordance with absolute values may lead to misinterpretation of CBC data. Current Interpretive Data was last revised on 2017. Basophil pct 0.5 % LAURIE Comment: Interpretive Data Percent cell count reference ranges are not reported, since discordance with absolute values may lead to misinterpretation of CBC data. Current Interpretive Data was last revised on 2017. Blood 10/24/2024 4:15 AM CDT 10/24/2024 4:39 AM CDT Namrata Spencer NP LAB BLOOD ORDERABLES Final Result LAURIE [address] [address] Department [place] [address] * (ABNORMAL) Protime-INR (10/24/2024 4:15 AM [...] DO LAB BLOOD ORDERABLES Fay l Result [facility] [address] [place] [address] * (ABNORMAL) Basic metabolic panel (10/24/2024 4:15 AM CDT) Sodium 132(L) 135 - 145 mmol/L Potassium, pl 4.2 3.3 - 4.9 mmol/L [facility] Chloride 91(L) 97 - 110 mmol/L [facility] CO2 32 22 - 32 mmol/L [facility] Anion gap 9 2 - 15 mmol/L [facility] BUN 46(H) 6 - 25 mg/dL [facility] Creatinine 1.90(H) 0.80 - 1.30 mg/dL [facility] Comment:Icteric sample, test results may be affected. Glucose 96 70 - 199 mg/dL [facility] Comment: Interpretive Data Fasting glucose >/= [...] 2022. Calcium 8.4(L) 8.5 - 10.3 mg/dL [facility] Blood 10/24/2024 4:15 AM CDT 10/24/2024 4:38 AM CDT Namrata Spencer NP LAB BLOOD ORDERABLES Final Result LAURIE [address] [place] [address] * (ABNORMAL) CBC with auto differential (10/24/2024 4:15 AM CDT) WBC 3.81 3.80 - 9.90 K/cumm Hgb 12.8(L) 13.0 - 17.5 g/dL [facility] Hct 38.2(L) 38.9 - 50.3 % [facility] Plt 81(L) 150 - 400 K/cumm [facility] MPV 12.3 9.1 - 12.3 fL [facility] RBC 4.08(L) 4.30 - 5.80 M/cumm [facility] MCV 93.6 81.3 - 96.4 fL [facility] [...] BLOOD ORDERABLES Final Result LAURIE [address] [place] [address] * XR Chest 1 Vw Portable (10/23/2024 [...] Spencer NP LAB BLOOD ORDERABLES Final Result [facility] [address] [address] [place] [address] * (ABNORMAL) Differential, auto (10/23/2024 3:35 AM CDT) Neutrophil abs 4.54 1.50 - 6.50 K/cumm Imm gran abs 0.02 0.00 - 0.10 K/cumm [facility] Lymphocyte abs 0.51(L) 0.80 - 3.30 K/cumm [facility] Monocyte abs 0.66 0.20 - 0.80 K/cumm [facility] Eosinophil abs 0.08 0.00 - 0.50 K/cumm [facility] Basophil abs 0.01 0.00 - 0.10 K/cumm [facility] Neutrophil pct 78.0 % [facility] Comment: Interpretive Data Percent cell count reference ranges are not reported, since discordance with absolute values may lead to misinterpretation of CBC data. Current Interpretive Data was last revised on 2017. Imm gran pct 0.3 % [facility] Comment: Interpretive Data Percent cell count reference ranges are not reported, since discordance with absolute values may lead to misinterpretation of CBC data. Current Interpretive Data was last revised on 2017. Lymphocyte pct 8.8 % [facility] Comment: Interpretive Data Percent cell count reference ranges are not reported, since discordance with absolute values may lead to misinterpretation of CBC data. Current Interpretive Data was last revised on 2017. Monocyte pct 11.3 % [facility] Comment: Interpretive Data Percent cell count reference ranges are not reported, since discordance with absolute values may lead to misinterpretation of CBC data. Current Interpretive Data was last revised on 2017. Eosinophil pct 1.4 % [facility] Comment: Interpretive Data Percent cell count reference ranges are not reported, since discordance with absolute values may lead to misinterpretation of CBC data. Current Interpretive Data was last revised on 2017. Basophil pct 0.2 % [facility]IE Comment: Interpretive Data Percent cell count reference ranges are not reported, since discordance with absolute values may lead to misinterpretation of CBC data. Current Interpretive Data was last revised on 2017. Blood 10/23/2024 3:35 AM CDT 10/23/2024 3:52 AM CDT Namrata Spencer PAINTER HAND LAB BLOOD ORDERABLES Final Result Performing Organization Address [facility] Co de Phone Number BRYNYEE ROSALES [address] [place] [address] * (ABNORMAL) Protime-INR (10/23/2024 3:35 [...] ORDERABLES Fay l Result Performing Organization Address [facility] Co de Phone Number LAURIE BOBBY [address] Department [employer] [place], [place] [id number] * (ABNORMAL) Basic metabolic panel (10/23/2024 3:35 AM CDT) Sodium 137 135 - 145 mmol/L Potassium, pl 4.1 3.3 - 4.9 mmol/L [facility] Chloride 97 97 - 110 mmol/L [facility] CO2 33(H) 22 - 32 mmol/L [facility] Anion gap 7 2 - 15 mmol/L [facility] BUN 44(H) 6 - 25 mg/dL [facility] Creatinine 1.70(H) 0.80 - 1.30 mg/dL [facility] Glucose 100 70 - 199 mg/dL [facility] Comment: Interpretive Data Fasting glucose >/= [...] 2022. Calcium 8.8 8.5 - 10.3 mg/dL [facility] Blood 10/23/2024 3:35 AM CDT 10/23/2024 3:52 AM CDT Namrata Spencer NP LAB BLOOD ORDERABLES Final Result [facility] [id number] Department [place] [address] * (ABNORMAL) CBC with auto differential (10/23/2024 3:35 AM CDT) WBC 5.82 3.80 - 9.90 K/cumm Hgb 13.8 13.0 - 17.5 g/dL [facility] Hct 41.6 38.9 - 50.3 % [facility] Plt 87(L) 150 - 400 K/cumm [facility] MPV 11.7 9.1 - 12.3 fL [facility] RBC 4.44 4.30 - 5.80 M/cumm [facility] MCV 93.7 81.3 - 96.4 fL [facility] MCH 31.1 27.1 - 33.3 pg [facility] MCHC 33.2 32.3 - 35.7 g/dL [facility] RDW CV 16.7(H) 11.1 - 14.9 % [facility] RDW SD 56.9(H) 35.7 - 48.1 fL [facility] NRBC abs 0.00 0.00 - 0.01 K/cumm [facility] Blood 10/23/2024 3:35 AM CDT 10/23/2024 3:52 AM CDT Namrata Dasilva Johanna [facility] LAB BLOOD ORDERABLES Final Result Performing Organization Address City/[facility]/ZIP Co de Phone Number LAURIE ROSALES [phone] [place], [place] [id number] * (ABNORMAL) eGFR (10/22/2024 3:54 AM CDT) [...] AM CDT 10/22/2024 4:24 AM CDT Namrata Dasilva Johanna [facility] LAB BLOOD ORDERABLES Final Result LAURIE ROSALES [address] Department [place] [address] * (ABNORMAL) Differential, auto (10/22/2024 3:54 AM CDT) Neutrophil abs 4.61 1.50 - 6.50 K/cumm Imm gran abs 0.01 0.00 - 0.10 K/cumm [facility] Lymphocyte abs 0.52(L) 0.80 - 3.30 K/cumm [facility] Monocyte abs 0.58 0.20 - 0.80 K/cumm [facility] Eosinophil abs 0.05 0.00 - 0.50 K/cumm [facility] Basophil abs 0.02 0.00 - 0.10 K/cumm [facility] Neutrophil pct 79.6 % [facility] Comment: Interpretive Data Percent cell count reference ranges are not reported, since discordance with absolute values may lead to misinterpretation of CBC data. Current Interpretive Data was last revised on 2017. Imm gran pct 0.2 % [facility] Comment: Interpretive Data Percent cell count reference ranges are not reported, since discordance with absolute values may lead to misinterpretation of CBC data. Current Interpretive Data was last revised on 2017. Lymphocyte pct 9.0 % [facility] Comment: Interpretive Data Percent cell count reference ranges are not reported, since discordance with absolute values may lead to misinterpretation of CBC data. Current Interpretive Data was last revised on 2017. Monocyte pct 10.0 % [facility] Comment: Interpretive Data Percent cell count reference ranges are not reported, since discordance with absolute values may lead to misinterpretation of CBC data. Current Interpretive Data was last revised on 2017. Eosinophil pct 0.9 % [facility] Comment: Interpretive Data Percent cell count reference ranges are not reported, since discordance with absolute values may lead to misinterpretation of CBC data. Current Interpretive Data was last revised on 2017. Basophil pct 0.3 % [facility] Comment: Interpretive Data Percent cell count reference ranges are not reported, since discordance with absolute values may lead to misinterpretation of CBC data. Current Interpretive Data was last revised on 2017. Blood 10/22/2024 3:54 AM CDT 10/22/2024 4:23 AM CDT Namrata Spencer NP LAB BLOOD ORDERABLES Final Result Performing Organization Address [facility] de Phone Number LAURIE ROSALES [address] Department [place] [address] * (ABNORMAL) Protime-INR (10/22/2024 3:54 AM CDT) PT 28.2(H) 9.7 - 13.0 sec INR 2.56(H) 0.90 - 1.20 [facility] Comment: Interpretive data Oral anticoagulant therapeutic ranges: Venous thromboembolism prophylaxis or treatment: 2.0-3.0 CARDIOLOGY Standard range: 2.0-3.0 High-intensity range: 2.5-3.5 Refer to indication-specific guidelines for appropriate target ranges for prosthetic heart valve replacement. Current interpretive data was last revised on 2019. Blood 10/22/2024 3:54 AM CDT 10/22/2024 4:23 AM CDT Namrata Dasilva Johanna LAB BLOOD ORDERABLES Final Result Performing Organization Address [facility] Co de Phone Number BRYNYEE ROSALES [address] Department [place] [address] * (ABNORMAL) Basic metabolic panel (10/22/2024 3:54 AM CDT) Sodium 134(L) 135 - 145 mmol/L Potassium, pl 4.3 3.3 - 4.9 mmol/L [facility] Chloride 95(L) 97 - 110 mmol/L [facility] CO2 33(H) 22 - 32 mmol/L [facility] Anion gap 6 2 - 15 mmol/L [facility] BUN 47(H) 6 - 25 mg/dL [facility] Creatinine 1.99(H) 0.80 - 1.30 mg/dL [facility] Comment:Icteric sample, test results may be affected. Glucose 101 70 - 199 mg/dL [facility] Comment: Interpretive Data Fasting glucose >/= [...] 8.8 8.5 - 10.3 mg/dL [facility] Blood 10/22/2024 3:54 AM CDT 10/22/2024 4:24 AM CDT Namrata Spencer NP LAB BLOOD ORDERABLES Final Result LAURIE [address] Department [place] [address] * (ABNORMAL) CBC with auto differential (10/22/2024 3:54 AM CDT) Pathologist [facility] WBC 5.79 3.80 - 9.90 K/cumm Hgb 13.8 13.0 - 17.5 g/dL [facility] Hct 42.0 38.9 - 50.3 % [facility] Plt 104(L) 150 - 400 K/cumm [facility] MPV 12.3 9.1 - 12.3 fL [facility] RBC 4.46 4.30 - 5.80 M/cumm [facility] MCV 94.2 81.3 - 96.4 fL [facility] MCH 30.9 27.1 - 33.3 pg [facility] MCHC 32.9 32.3 - 35.7 g/dL [facility] RDW CV 16.7(H) 11.1 - 14.9 % [facility] RDW SD 57.1(H) 35.7 - 48.1 fL [facility] NRBC abs 0.00 0.00 - 0.01 K/cumm [facility] Blood 10/22/2024 3:54 AM CDT 10/22/2024 4:23 AM CDT Namrata Spencer NP LAB [place] [address] [address] Department [place] [address] * Magnesium (10/22/2024 3:54 AM CDT) Magnesium 2.1 1.4 - 2.5 mg/dL Blood 10/22/2024 3:54 AM CDT 10/22/2024 4:24 AM CDT Namrata Lewisleopoldodejon PAINTER HAND LAB BLOOD ORDERABLES Final Result Performing Organization Address [facility] Co de Phone Number LAURIE ROSALES [address] Department [place] [address] * CT Abdomen Pelvis WO Contrast (10/21/2024 [...] by: Neel Morrison M.D. Delvin Mendenhall MD [facility] CT PROCEDURES Final Result * (ABNORMAL) eGFR [...] Spencer NP LAB BLOOD ORDERABLES Final Result [facility] [address] [place] [address] * (ABNORMAL) Differential, auto (10/21/2024 5:17 AM CDT) Neutrophil abs 3.63 1.50 - 6.50 K/cumm Imm gran abs 0.01 0.00 - 0.10 K/cumm [facility] Lymphocyte abs 0.62(L) 0.80 - 3.30 K/cumm [facility] Monocyte abs 0.51 0.20 - 0.80 K/cumm [facility] Eosinophil abs 0.05 0.00 - 0.50 K/cumm [facility] Basophil abs 0.03 0.00 - 0.10 K/cumm [facility] Neutrophil pct 74.9 % [facility] Comment: Interpretive Data Percent cell count reference ranges are not reported, since discordance with absolute values may lead to misinterpretation of CBC data. Current Interpretive Data was last revised on 2017. Imm gran pct 0.2 % [facility] Comment: Interpretive Data Percent cell count reference ranges are not reported, since discordance with absolute values may lead to misinterpretation of CBC data. Current Interpretive Data was last revised on 2017. Lymphocyte pct 12.8 % [facility] Comment: Interpretive Data Percent cell count reference ranges are not reported, since discordance with absolute values may lead to misinterpretation of CBC data. Current Interpretive Data was last revised on 2017. Monocyte pct 10.5 % LAURIE Comment: Interpretive Data Percent cell count reference ranges are not reported, since discordance with absolute values may lead to misinterpretation of CBC data. Current Interpretive Data was last revised on 2017. Eosinophil pct 1.0 % [facility] Comment: Interpretive Data [...] BLOOD ORDERABLES Final Result Performing Organization Address [facility] de Phone Number LAURIE [address] [facility] Department [place] [address] * (ABNORMAL) Protime-INR (10/21/2024 5:17 AM CDT) PT 25.7(H) 9.7 - 13.0 sec INR 2.34(H) 0.90 - 1.20 LAURIE Comment: Interpretive data [...] BLOOD ORDERABLES Final Result Performing Organization Address [facility]/ZIP Co de Phone Number LAURIE ROSALES [address] Department [place] [address] * (ABNORMAL) Basic metabolic panel (10/21/2024 5:17 AM CDT) Sodium 133(L) 135 - 145 mmol/L Potassium, pl 4.5 3.3 - 4.9 mmol/L [facility] Chloride 95(L) 97 - 110 mmol/L [facility] CO2 28 22 - 32 mmol/L [facility] Anion gap 10 2 - 15 mmol/L [facility] BUN 48(H) 6 - 25 mg/dL [facility] Creatinine 2.23(H) 0.80 - 1.30 mg/dL [facility] Glucose 94 70 - 199 mg/dL [facility] Comment: Interpretive Data Fasting glucose [...] 2022. Calcium 8.8 8.5 - 10.3 mg/dL [facility] Blood 10/21/2024 5:17 AM CDT 10/21/2024 6:09 AM CDT Namrata Spencer NP LAB BLOOD ORDERABLES Final Result Performing Organization Address [facility] Co de Phone Number LAURIE ROSALES [address] Department [place] [address] * (ABNORMAL) CBC with auto differential (10/21/2024 5:17 AM CDT) WBC 4.85 3.80 - 9.90 K/cumm Hgb 14.6 13.0 - 17.5 g/dL [facility] Hct 45.1 38.9 - 50.3 % [facility] Plt 108(L) 150 - 400 K/cumm [facility] MPV 11.2 9.1 - 12.3 fL [facility] RBC 4.73 4.30 - 5.80 M/cumm [facility] MCV 95.3 81.3 - 96.4 fL [facility] MCH 30.9 27.1 - 33.3 pg [facility] MCHC 32.4 32.3 - 35.7 g/dL [facility] RDW CV 16.8(H) 11.1 - 14.9 % [facility] RDW SD 58.7(H) 35.7 - 48.1 fL [facility] NRBC abs 0.00 0.00 - 0.01 K/cumm [facility] Blood 10/21/2024 5:17 AM CDT 10/21/2024 6:10 AM CDT Namrata Spencer LAB BLOOD ORDERABLES Final Result Performing Organization Address [facility] de Phone Number LAURIE ROSALES [address] Department [place] [address] * Magnesium (10/21/2024 5:17 AM CDT) Pathologist [facility] [place] Magnesium 2.1 1.4 - 2.5 mg/dL Blood 10/21/2024 5:17 AM CDT 10/21/2024 6:09 AM CDT [facility] Spencer LAB BLOOD ORDERABLES Final Result Performing Organization Address [facility] de Phone Number LAURIE [address] Department [place] [address] * TRANSTHORACIC ECHO (TTE) COMPLETE W DOPPLER/CF W CONTRAST (10/20/2024 1:23 PM CDT) EF Mod BP 37 % CONS SCIMAGE Anatomical Region Laterality Modality Ultrasound 10/20/2024 12:1 1 PM CDT Narrative 10/21/2024 6:[place] [address] Echocardiogram Report Patient Name: RAJWINDER MONSALVE H : 1940 Study Date: 10/20/2024 12:11:53 PM Gender: M Tech: Location: [address] Provider: CARLA JEAN Height(Cm): 170 BSA: [...] of hemodynamically significant aortic stenosis by Doppler. Ebamvtah-sw-lfffwe pulmonary hypertension, estimated RVSP 60 mmHg. Moderate tricuspid regurgitation. Electronically Signed By: Clvie Godfrey MD, [facility] 10/21/2024 6:43:00 AM CDT Procedure Note Clive Godfrey MD - 10/21/2024 [place] [address] Echocardiogram Report Patient Name: RAJWINDER MONSALVE H : 1940 Study Date: 10/20/2024 12:11:53 PM Gender: M Tech: Location: [id number] Ref Provider: CARLA JEAN Height(Cm): 170 BSA: [...] evidence of hemodynamicallysignificant aortic stenosis by Doppler. Iibujrzq-lt-taamkn pulmonary hypertension, estimated RVSP 60 mmHg.Moderate tricuspid regurgitation. Electronically Signed By: Clive Godfrey MD, [facility] 10/21/2024 6:43:00 AM CDT Carla Jean MD CV ECHO PROCEDURES Final [...] Spencer NP LAB BLOOD ORDERABLES Final Result [facility] [address] [place] [address] * (ABNORMAL) Differential, auto (10/20/2024 6:38 AM CDT) Neutrophil abs 3.55 1.50 - 6.50 K/cumm Imm gran abs 0.01 0.00 - 0.10 K/cumm [facility] Lymphocyte abs 0.72(L) 0.80 - 3.30 K/cumm [facility] Monocyte abs 0.61 0.20 - 0.80 K/cumm [facility] Eosinophil abs 0.03 0.00 - 0.50 K/cumm [facility] Basophil abs 0.02 0.00 - 0.10 K/cumm [facility] Neutrophil pct 71.9 % [facility] Comment: Interpretive Data Percent cell count reference ranges are not reported, since discordance with absolute values may lead to misinterpretation of CBC data. Current Interpretive Data was last revised on 2017. Imm gran pct 0.2 % [facility] Comment: Interpretive Data Percent cell count reference ranges are not reported, since discordance with absolute values may lead to misinterpretation of CBC data. Current Interpretive Data was last revised on 2017. Lymphocyte pct 14.6 % [facility] Comment: Interpretive Data Percent cell count reference ranges are not reported, since discordance with absolute values may lead to misinterpretation of CBC data. Current Interpretive Data was last revised on 2017. Monocyte pct 12.3 % [facility] Comment: Interpretive Data Percent cell count reference ranges are not reported, since discordance with absolute values may lead to misinterpretation of CBC data. Current Interpretive Data was last revised on 2017. Eosinophil pct 0.6 % [facility]UR[facility] Comment: Interpretive Data Percent cell count reference ranges are not reported, since discordance with absolute values may lead to misinterpretation of CBC data. Current Interpretive Data was last revised on 2017. Basophil pct 0.4 % [facility] Comment: Interpretive Data Percent cell count reference ranges are not reported, since discordance with absolute values may lead to misinterpretation of CBC data. Current Interpretive Data was last revised on 2017. Blood 10/20/2024 6:38 AM CDT 10/20/2024 6:43 AM CDT Namrata Spencer NP LAB BLOOD ORDERABLES Final Result Performing Organization Address [facility] Co de Phone Number LAURIE [address] [place] [address] * Digoxin level (10/20/2024 6:38 [...] ORDERABLES Final Re sult Performing Organization Address City/[facility]/ZIP Co de Phone Number LAURIE [address] [place] [address] * (ABNORMAL) Protime-INR (10/20/2024 6:38 AM CDT) PT 34.5(H) 9.7 - 13.0 sec INR 3.12(H) 0.90 - 1.20 [facility] Comment: Interpretive data Oral anticoagulant therapeutic ranges: Venous thromboembolism prophylaxis or treatment: 2.0-3.0 CARDIOLOGY Standard range: 2.0-3.0 High-intensity range: 2.5-3.5 Refer to indication-specific guidelines for appropriate target ranges for prosthetic heart valve replacement. Current interpretive data was last revised on 2019. Blood 10/20/2024 6:38 AM CDT 10/20/2024 6:43 AM CDT Namrata Spencer NP LAB BLOOD ORDERABLES Final Result [facility] [address] [place] [address] * (ABNORMAL) Basic metabolic panel (10/20/2024 6:38 AM CDT) Sodium 133(L) 135 - 145 mmol/L Potassium, pl 4.4 3.3 - 4.9 mmol/L [facility] Chloride 96(L) 97 - 110 mmol/L [facility] CO2 30 22 - 32 mmol/L [facility] Anion gap 10 2 - 15 mmol/L [facility] BUN 46(H) 6 - 25 mg/dL [facility] Creatinine 2.43(H) 0.80 - 1.30 mg/dL [facility] Glucose 106 70 - 199 mg/dL [facility] Comment: Interpretive Data Fasting glucose >/= [...] 2022. Calcium 8.8 8.5 - 10.3 mg/dL [facility] Blood 10/20/2024 6:38 AM CDT 10/20/2024 6:42 AM CDT Namrata Jimenezdejon Spencer NP LAB BLOOD ORDERABLES Final Result [address] Department of [employer] [place], [place] [id number] * (ABNORMAL) CBC with auto differential (10/20/2024 6:38 AM CDT) WBC 4.94 3.80 - 9.90 K/cumm Hgb 14.2 13.0 - 17.5 g/dL [facility] Hct 43.3 38.9 - 50.3 % [facility] Plt 106(L) 150 - 400 K/cumm [facility] MPV 11.0 9.1 - 12.3 fL [facility] RBC 4.58 4.30 - 5.80 M/cumm [facility] MCV 94.5 81.3 - 96.4 fL [facility] MCH 31.0 27.1 - 33.3 pg [facility] MCHC 32.8 32.3 - 35.7 g/dL [facility] RDW CV 16.8(H) 11.1 - 14.9 % [facility] CH RDW SD 58.4(H) 35.7 - 48.1 fL [facility] NRBC abs 0.00 0.00 - 0.01 K/cumm [facility] Blood 10/20/2024 6:38 AM CDT 10/20/2024 6:43 AM CDT Namrata Dasilva Johanna [employer] LAB BLOOD ORDERABLES Final Result LAURIE [address] Department [place] [address] * Magnesium (10/20/2024 6:38 AM CDT) Magnesium 2.0 1.4 - 2.5 mg/dL Blood 10/20/2024 6:38 AM CDT 10/20/2024 6:42 AM CDT us Namrata Dasilva Johanna [facility] LAB BLOOD ORDERABLES Final Result LAURIE ROSALES [address] [place] [address] * US Retroperitoneal Complete (10/19/2024 [...] evaluation. 2. Enlarged prostate. Electronically signed by: Noah Medrano IIOLexi us Delvin Mendenhall MD IMG US PROCEDURES Final Result * Legionella antigen Urine (10/19/2024 12:33 PM CDT) Legionella Ag Negative Negative Comment: Interpretive Data This test detects only Legionella pneumophila serogroup 1 antigen. Current interpretive data was last revised on 2019. Urine 10/19/2024 12:3 3 PM CDT 10/19/2024 12:40 PM CDT Radha Suggs MD LAB MICROBIOLOGY - [facility] ORDERABLES Final Result [facility] [address] [facility] [place] [address] * Strep pneumoniae antigen, urine [...] RAL ORDERABLES Final Result Performing Organization Address City/[facility]/ZIP Co de Phone Number CERYEE ROSALES [address] [place] [address] * Urinalysis reflex to microscopic and culture [...] tendency for uric acid stone formation. Source: [facility] Current Interpretive Data was last revised on [...] 3 PM CDT 10/19/2024 12:39 PM CDT us Delvin Mendenhall MD LAB MICROBIOLOGY - GENERAL ORD ERABLES Final Result LAURIE [address] [place] [address] * Protein / creatinine ratio, urine, random (10/19/2024 12:33 PM CDT) Protein, ur, quant 5.8 mg/dL Comment: Interpretive Data No reference range established. Current interpretive data was last revised 2018. Creatinine Ur 46.3 mg/dL [facility] Comment: Interpretive Data No reference range established. Current interpretive data was last revised 2018. Protein/creatinin e ratio 125.3 0.0 - 180.0 mg/g CR [facility] Urine 10/19/2024 12:3 3 PM CDT 10/19/2024 12:39 PM CDT us Delvin Mendenhall MD LAB URINE ORDERABLES Final Res ult Performing Organization Address [facility] Co de Phone Number LAURIE ROSALES [address] [place] [address] * C3 complement (10/19/2024 12:15 PM CDT) Pathologist [facility] Complement C3 119 90 - 180 mg/dL Blood 10/19/2024 12:1 5 PM CDT 10/19/2024 12:20 PM CDT us Delvin Mendenhall MD LAB BLOOD ORDERABLES Final Res ult Performing Organization Address [facility] Co de Phone Number LAURIE [address] [place] [address] * Erythrocyte sedimentation rate (10/19/2024 12:15 PM CDT) Erythrocyte sedimentation rate 6 1 - 20 mm/hr Comment:Testing performed by : [facility], [facility], [place], [address] Blood 10/19/2024 12:1 5 PM CDT 10/19/2024 12:20 PM CDT us Delvin Mendenhall MD LAB BLOOD ORDERABLES Final Res ult Performing Organization Address City/[facility] Co de Phone Number LAURIE ROSALES [address] [place] [address] * Hemoglobin A1c (10/19/2024 12:15 PM CDT) Hgb A1C 5.6 4.0 - 5.6 % Estimated Average Glucose 114 mg/dL LAURIE ROSALES Comment: The ADA recommends reporting an estimated Average Glucose (eAG) with all Hemoglobin A1c results using the equation derived from a study of 507 normal and diabetic adults. Minority populations were underrepresented and children were not included. (Diabetes Care 31:1937-9335, 2008). The eAG is not equivalent to a fasting glucose. Blood 10/19/2024 12:1 5 PM CDT 10/19/2024 12:20 PM CDT us Delvin Mendenhall MD LAB BLOOD ORDERABLES Final Res ult Performing Organization Address [facility] Co de Phone Number BRYNYEE ROSALES [address] [place] [address] * LETICIA ab ql w/rflx to LETICIA qn (10/19/2024 12:15 PM CDT) Pathologist [facility] LETICIA Negative Comment: Interpretive Data Normal range [...] last revised on 2020. Testing performed by: [facility], [address], [place]., [address] Blood 10/19/2024 12:1 5 PM CDT 10/19/2024 2:07 PM CDT us Delvin Mendenhall MD LAB BLOOD ORDERABLES Final Res ult Performing Organization Address [facility]/ZIP Co de Phone Number LAURIE ROSALES [address] [place] [address] * ANCA (10/19/2024 12:15 PM CDT) C-ANCA Negative Negative [facility] P-ANCA Negative Negative LAURIE ROSALES Comment: Negative for cANCA and pANCA patterns by immunofluorescence. ADDITIONAL INFORMATION This test was developed and its performance characteristics determined by [facility] in a manner consistent with CLIA requirements. This test has not been cleared or approved by the U.S. Food and Drug Administration. Test Performed by: [place] [id number] Division Director: Hayder Arzola Ph.D.; CLIA# [id number] Blood 10/19/2024 12:1 5 PM CDT 10/19/2024 12:19 PM CDT us Delvin Mendenhall MD LAB BLOOD ORDERABLES Final Res ult LAURIE ROSALES [address] [place] [address] [facility] * (ABNORMAL) eGFR (10/19/2024 5:12 AM [...] Inclusion of Race in Diagnosing Kidney Disease, VITON 2020). The CKD-EPI equation should not be used for patients with unstable renal function and has not been validated in children and those over 70. Current interpretive data was last reviewed 2021. Blood 10/19/2024 5:12 AM CDT 10/19/2024 5:20 AM CDT Namrata Spencer NP LAB BLOOD ORDERABLES Final Result [facility] [address] [place] [address] * (ABNORMAL) Differential, auto (10/19/2024 5:12 AM CDT) Neutrophil abs 3.68 1.50 - 6.50 K/cumm Imm gran abs 0.02 0.00 - 0.10 K/cumm [facility] Lymphocyte abs 0.73(L) 0.80 - 3.30 K/cumm [facility] Monocyte abs 0.49 0.20 - 0.80 K/cumm [facility] Eosinophil abs 0.07 0.00 - 0.50 K/cumm [facility] Basophil abs 0.03 0.00 - 0.10 K/cumm [facility] Neutrophil pct 73.3 % [facility] Comment: Interpretive Data Percent cell count reference ranges are not reported, since discordance with absolute values may lead to misinterpretation of CBC data. Current Interpretive Data was last revised on 2017. Imm gran pct 0.4 % [facility] Comment: Interpretive Data Percent cell count reference ranges are not reported, since discordance with absolute values may lead to misinterpretation of CBC data. Current Interpretive Data was last revised on 2017. Lymphocyte pct 14.5 % [facility] Comment: Interpretive Data Percent cell count reference ranges are not reported, since discordance with absolute values may lead to misinterpretation of CBC data. Current Interpretive Data was last revised on 2017. Monocyte pct 9.8 % [facility] Comment: Interpretive Data Percent cell count [...] CDT 10/19/2024 5:19 AM CDT Namrata Spencer LAB BLOOD ORDERABLES Final Result Performing Organization Address [facility] de Phone Number LAURIE [address] [address] [facility] [place] [address] * (ABNORMAL) Protime-INR (10/19/2024 5:12 [...] BLOOD ORDERABLES Final Result Performing Organization Address [facility] Co de Phone Number [facility] [address] [address] [facility] [place] [address] * (ABNORMAL) Basic metabolic panel (10/19/2024 5:12 AM CDT) Sodium 133(L) 135 - 145 mmol/L Potassium, pl 4.8 3.3 - 4.9 mmol/L [facility] Chloride 96(L) 97 - 110 mmol/L [facility] CO2 30 22 - 32 mmol/L [facility] Anion gap 7 2 - 15 mmol/L [facility] BUN 35(H) 6 - 25 mg/dL [facility] Creatinine 1.83(H) 0.80 - 1.30 mg/dL [facility] Glucose 87 70 - 199 mg/dL [facility] Comment: Interpretive Data Fasting glucose [...] 2022. Calcium 9.2 8.5 - 10.3 mg/dL [facility] Blood 10/19/2024 5:12 AM CDT 10/19/2024 5:20 AM CDT Namrata Spencer NP LAB BLOOD ORDERABLES Final Result [facility] [address] [place] [address] * (ABNORMAL) CBC with auto differential (10/19/2024 5:12 AM CDT) WBC 5.02 3.80 - 9.90 K/cumm Hgb 15.5 13.0 - 17.5 g/dL [facility] Hct 48.5 38.9 - 50.3 % [facility] Plt 125(L) 150 - 400 K/cumm [facility] MPV 11.4 9.1 - 12.3 fL [facility] RBC 5.03 4.30 - 5.80 M/cumm [facility] MCV 96.4 81.3 - 96.4 fL [facility] MCH 30.8 27.1 - 33.3 pg [facility] MCHC 32.0(L) 32.3 - 35.7 g/dL [facility] RDW CV 17.0(H) 11.1 - 14.9 % [facility] RDW SD 59.9(H) 35.7 - 48.1 fL [facility] NRBC abs 0.00 0.00 - 0.01 K/cumm [facility] Blood 10/19/2024 5:12 AM CDT 10/19/2024 5:19 AM CDT Namrata Spencer NP LAB BLOOD ORDERABLES Final Result LAURIE ROSALES [address] [address] [facility] [place] [address] * Magnesium (10/19/2024 5:12 AM CDT) Pathologist [facility] Magnesium 2.0 1.4 - 2.5 mg/dL Blood 10/19/2024 5:12 AM CDT 10/19/2024 5:20 AM CDT Namrata Vidya Spencer LAB BLOOD ORDERABLES Final Result Performing Organization Address City/[facility] Co de Phone Number LAURIE ROSALES [address] [address] [place] [address] * (ABNORMAL) Digoxin level (10/18/2024 4:32 PM [...] 4:32 PM CDT 10/18/2024 8:20 PM CDT Namratamely Spencer PAINTER HAND LAB BLOOD ORDERABLES Final Result Performing Organization Address [facility] Co de Phone Number LAURIE ROSALES [address] [address] [facility] [place] [address] * (ABNORMAL) Troponin T high-sensitivity 6-hour (10/18/2024 4:32 PM CDT) Trop T hs 51(H) <=22 ng/L Comment: Interpretive Data For further hscTnT resources including the diagnostic algorithm and an aid in interpretation, copy and paste this link: https://nrl.[employer].org/show/hsTrop Current Interpretive Data last revised 2020. Trop T hs delta 0 ng/L [facility] Trop T hs interp Insignificant [facility] Blood 10/18/2024 4:32 PM CDT 10/18/2024 4:41 PM CDT Zeke Correa DO LAB BLOOD ORDERABLES Final Res ult Performing Organization Address [facility] Co de Phone Number LAURIE ROSALES [address] [address] [facility] [place] [address] * (ABNORMAL) Troponin T high-sensitivity 4-hour (10/18/2024 2:42 PM CDT) Trop T hs 51(H) <=22 ng/L Comment: Interpretive Data For further hscTnT resources including the diagnostic algorithm and an aid in interpretation, copy and paste this link: https://nrl.[employer].org/show/hsTrop Current Interpretive Data last revised 2020. Trop T hs delta 0 ng/L [facility] Trop T hs interp Insignificant [facility] Blood 10/18/2024 2:42 PM CDT 10/18/2024 2:50 PM CDT Zeke Correa DO LAB BLOOD ORDERABLES Final Res ult Performing Organization Address City/[facility]/ZIP Co de Phone Number LAURIE [address] [facility] [place] [address] * CT Chest WO Contrast (10/18/2024 2:00 [...] versus gastritis. Procedure Note Rajendra Oh II, - 10/18/2024 EXAMINATION: Computed tomography of the [...] Report: No growth Comment:Testing performed by : [facility], [address], [place]., [address] Blood (Peripheral) 10/18/2024 1:28 PM CDT 10/18/2024 5:03 PM CDT Narrative LAURIE - 10/23/2024 7:00 AM CDT From a [...] performance characteristics have been verified by the [facility]. For questions about this culture, contact the Microbiology Laboratory at [phone]. Interpretive data was last revised on 24. us Zeke Correa DO LAB MICROBIOLOGY - GENERAL ORD ERABLES Final Result LAURIE ROSALES [address] [address] [place] [address] * Blood culture Blood Peripheral (10/18/2024 1:28 PM CDT) Report Final Report: No growth Comment:Testing performed by : [facility], [address], [place]., [address] Blood (Peripheral) 10/18/2024 1:28 PM CDT 10/18/2024 5:03 PM CDT Narrative LAURIE - 10/23/2024 7:00 AM CDT Draw Blood [...] performance characteristics have been verified by the [facility]. For questions about this culture, contact the Microbiology Laboratory at [phone]. Interpretive data was last revised on 24. us Zeke Correa DO LAB MICROBIOLOGY - GENERAL ORD ERABLES Final Result [facility] [address] [address] Department [place] [address] * (ABNORMAL) Pro B-type natriuretic peptide (10/18/2024 [...] ORDERABLES Final Res ult Performing Organization Address [facility] Co de Phone Number BRYNYEE ROSALES [address] [place] [address] * (ABNORMAL) Troponin T high-sensitivity 2-hour (10/18/2024 12:26 PM CDT) Trop T hs 54(H) <=22 ng/L Comment: Interpretive Data For further hscTnT resources including the diagnostic algorithm and an aid in interpretation, copy and paste this link: https://nrl.testcatalog.org/show/hsTrop Current Interpretive Data last revised 2020. Trop T hs delta 3 ng/L [facility] Trop T hs interp Insignificant [facility] Blood 10/18/2024 12:2 6 PM CDT 10/18/2024 12:26 PM CDT Zeke Correa DO LAB BLOOD ORDERABLES Final Res ult Performing Organization Address [facility]/ZIP Co de Phone Number LAURIE ROSALES [address] [place] [address] * XR Chest 1 Vw [...] acute osseous abnormality. Electronically signed by: Rajendra hO II, D.O. Rajendra HURTADO IMG XR PROCEDURES [...] LAB BLOOD ORDERABLES Final Res ult LAURIE [address] [address] [place] [address] * Differential, auto (10/18/2024 10:41 AM CDT) Neutrophil abs 3.39 1.50 - 6.50 K/cumm Imm gran abs 0.01 0.00 - 0.10 K/cumm [facility] Lymphocyte abs 0.86 0.80 - 3.30 K/cumm [facility] Monocyte abs 0.44 0.20 - 0.80 K/cumm [facility] Eosinophil abs 0.03 0.00 - 0.50 K/cumm [facility] Basophil abs 0.02 0.00 - 0.10 K/cumm [facility] Neutrophil pct 71.4 % [facility] Comment: Interpretive Data Percent cell count reference ranges are not reported, since discordance with absolute values may lead to misinterpretation of CBC data. Current Interpretive Data was last revised on 2017. Imm gran pct 0.2 % [facility] Comment: Interpretive Data Percent cell count reference ranges are not reported, since discordance with absolute values may lead to misinterpretation of CBC data. Current Interpretive Data was last revised on 2017. Lymphocyte pct 18.1 % [facility] Comment: Interpretive Data Percent cell count reference ranges are not reported, since discordance with absolute values may lead to misinterpretation of CBC data. Current Interpretive Data was last revised on 2017. Monocyte pct 9.3 % [facility] Comment: Interpretive Data Percent cell count [...] ORDERABLES Final Res ult Performing Organization Address [facility] de Phone Number LAURIE ROSALES [address] [address] [place] [address] * Lactate (10/18/2024 10:41 AM CDT) [facility] Lactate 1.3 0.7 - 2.0 mmol/L Blood 10/18/2024 10:4 1 AM CDT 10/18/2024 10:49 AM CDT Zeke Correa DO LAB BLOOD ORDERABLES Final Res ult Performing Organization Address [facility] de Phone Number LAURIE ROSALES [address] [address] [place] [address] * Respiratory pathogen panel Nasopharyngeal (10/18/2024 10:41 AM CDT) [facility] Influenza A RNA Not Detected Not Detected Influenza B RNA Not Detected Not Detected [facility] RSV RNA Not Detected Not Detected [facility] COVID-19 RNA Not Detected Not Detected [facility] Coronavirus 229E RNA Not Detected Not Detected [facility] Coronavirus HKU1 RNA Not Detected Not Detected [facility] Coronavirus NL63 RNA Not Detected Not Detected [facility] Coronavirus OC43 RNA Not Detected Not Detected [facility] Adenovirus DNA Not Detected Not Detected [facility] Metapneumovirus RNA Not Detected Not Detected [facility] Rhinovirus/Enterov irus RNA Not Detected Not Detected [facility] Parainfluenza 1 RNA Not Detected Not Detected [facility] Parainfluenza 2 RNA Not Detected Not Detected [facility] Parainfluenza 3 RNA Not Detected Not Detected [facility] Parainfluenza 4 RNA Not Detected Not Detected [facility] B. pertussis DNA Not Detected Not Detected [facility] B. parapertussis DNA Not Detected Not Detected [facility] C. pneumoniae DNA Not Detected Not Detected [facility] M. pneumoniae DNA Not Detected Not Detected [facility] Comment: Interpretive Data The [employer]pp[employer] FilmArray Respiratory Panel (RP2.1) assay is a [...] assay has FDA clearance for testing of PAINTER HAND swabs. The performance characteristics of this assay have been determined by [facility]. Current interpretive data was last revised on 2020. Nasopharyngeal 10/18/2024 10 :41 AM CDT 10/18/2024 10:53 AM CDT Narrative LAURIE ROSALES - 10/18/2024 12:10 PM CDT Is the Patient experiencing symptoms consistent with COVID?->Yes Surveillance testing for transplant patient?->No us Zeke Correa DO LAB MICROBIOLOGY - GENERAL ORD ERABLES Final Result Performing Organization Address [facility] Co de Phone Number LAURIE BOBBY [address] [place] [address] CH * (ABNORMAL) Troponin T high-sensitivity series (baseline, 2hr, 4hr, 6hr) (10/18/2024 10:41 AM CDT) [facility] Trop T hs 51(H) <=22 ng/L Comment: Interpretive Data For further hscTnT resources including the diagnostic algorithm and an aid in interpretation, copy and paste this link: https://nrl.testcatalog.org/show/hsTrop Current Interpretive Data last revised 2020. Blood 10/18/2024 10:4 1 AM CDT 10/18/2024 10:56 AM CDT us Zeke Correa DO LAB BLOOD ORDERABLES Edited Re sult - Final Performing Organization Address [facility] Co de Phone Number BRYNYEE ROSALES [address] [address] Department of Laboratories [place], [place] [address] * (ABNORMAL) CBC with auto differential (10/18/2024 10:41 AM CDT) WBC 4.75 3.80 - 9.90 K/cumm Hgb 15.5 13.0 - 17.5 g/dL [facility] Hct 47.4 38.9 - 50.3 % [facility] Plt 132(L) 150 - 400 K/cumm [facility] MPV 12.2 9.1 - 12.3 fL [facility] RBC 4.95 4.30 - 5.80 M/cumm [facility] MCV 95.8 81.3 - 96.4 fL [facility] MCH 31.3 27.1 - 33.3 pg [facility] MCHC 32.7 32.3 - 35.7 g/dL [facility] RDW CV 17.1(H) 11.1 - 14.9 % [facility] RDW SD 59.9(H) 35.7 - 48.1 fL [facility] NRBC abs 0.00 0.00 - 0.01 K/cumm [facility] Blood 10/18/2024 10:4 1 AM CDT 10/18/2024 10:56 AM CDT us Zeke Correa DO LAB BLOOD ORDERABLES Final Res ult [facility] [address] [address] [place] [address] * (ABNORMAL) Comprehensive metabolic panel (10/18/2024 10:41 AM CDT) Pathologist [facility] Sodium 132(L) 135 - 145 mmol/L Potassium, pl 5.0(H) 3.3 - 4.9 mmol/L [facility] Chloride 97 97 - 110 mmol/L [facility] CO2 28 22 - 32 mmol/L [facility] Anion gap 7 2 - 15 mmol/L [facility] BUN 29(H) 6 - 25 mg/dL [facility] Creatinine 1.62(H) 0.80 - 1.30 mg/dL [facility] Comment:Icteric sample, test results may be affected. Glucose 90 70 - 199 mg/dL [facility] Comment: Interpretive Data Fasting glucose >/= [...] BLOOD ORDERABLES Final Res ult LAURIE ROSALES [address] [facility] [place] [address] * ECG 12 lead (10/18/2024 10:33 AM CDT) 10/18/2024 10:3 3 AM CDT Narrative [facility] - 10/18/2024 2:59 PM CDT Vent Rate: 80 bpm RR Interval: 749 msec VA Interval: 140 msec QRS Duration: 164 msec QT Interval: 377 msec QTC Interval: 412 msec P-R-T [place]: -52 - 226 - 226 degrees IMPRESSION: ELECTRONIC VENTRICULAR PACEMAKER ST DEPRESSION, CONSIDER SUBENDOCARDIAL INJURY [0.1+ mV ST DEPRESSION] ABNORMAL ECG No change compared to prior EKG Electronically Signed By: Emilio Ratliff MD [facility] us Zeke Correa DO ECG ORDERABLES Final Result [facility] documented in this encounter Visit Diagnoses Diagnosis [...] mg in sodium chloride 0.9% 250 mL [id number] IVPB 500 mg, intravenous, at 275 mL/hr, Administer over 60 Minutes, Every 24 hours scheduled, First dose on Thu10/18/24 at 1510, [id number] , Indications: Pneumonia, Community AcquiredIndications:Pneumonia, Community Acquired New Bag 10/20/2024 9:02 AM CDT 500 mg 275 mL/hr New Bag 10/19/2024 8:33 AM CDT 500 mg 275 mL/hr Bag 10/18/2024 3:26 PM CDT 500 mg [...] 145 mg, oral, Daily, First dose on Tu10/18/24 at 1815 Given 11/03/2024 9:38 AM CDT [...] Daily, First dose (after last modification) on Thu10/22/24 at 0900, For IV push: administer doses [...] 40 mg 40 mg, intravenous, Once, On Thu10/30/24 at 1130, For 1 dose, For IV push: administer doses < 160 mg at a rate of 20 -40 mg/min. Doses >/= 160 mg should be administered no faster than 4 mg/min. Room temperature only Given 10/30/2024 11: 27 AM CDT 40 mg furosemide (LASIX) 10 mg/mL injection 40 mg 40 mg, intravenous, Once, On Thu10/31/24 at 1200, For 1 dose, For IV push: administer doses < 160 mg at a rate of 20 -40 mg/min. Doses >/= 160 mg should be administered no faster than 4 mg/min. Room temperature only Given 10/31/2024 12: 45 PM CDT 40 mg furosemide (LASIX) 10 mg/mL injection 60 mg 60 mg, intravenous, Once, On Thu10/18/24 at 1432, For 1 dose, For IV push: administer doses < 160 mg at a rate of 20 -40 mg/min. Doses >/= 160 mg should be administered no faster than 4 mg/min. Room temperature only Given 10/18/2024 2:4 2 PM CDT 60 mg ipratropium-albuteroL (DUO-NEB) 0.5-2.5 mg/3 mL nebulizer solution 3 mL 3 mL, nebulization, Every 4 hours while awake (respiratory care technician), First dose on Thu10/18/24 at 2100 Given 10/30/2024 8:41 AM CDT 3 mL Given 10/29/2024 8:53 PM CDT 3 mL Given 10/29/2024 5:06 PM CDT 3 mL ipratropium-albuteroL (DUO-NEB) 0.5-2.5 mg/3 mL nebulizer solution 3 mL 3 mL, nebulization, Every 6 hours while awake (respiratory care technician), First dose (after last modification) on Thu10/30/24 [...] at 1130, For 1 dose, Created by cabinet override Given 10/24/2024 2:24 PM CDT 60 [...] 30 mg 30 mg, oral, Once, On Thu10/27/24 at 1830, For 1 dose Given 10/27/2024 [...] 2 mg, oral, Once (for warfarin), On Brigette 10/27/24 at 1800, For 1 dose, Target INR: [...] total) by mouth daily Error 10/18/2024 multivit bfuinpqz-zcml-YN-calci um (THERA-M) 9 mg iron-400 mcg tabletIndications:Verónica [...] by mouth once a week on Thu Tikosyn 125 mcg capsule Take 1 capsule [...] scheduled, First dose (after last modification) on [facility] 10/27/24 at 1800, Renally dose adjusted per pharmacy protocol for Estimated Creatinine Clearance: 36.7 mL/min (A) (by C-G 65 yr and older- minimum SCr 0.8 based on SCr of 1.4 mg/dL (H)). Body mass index is 27 kg/m . Patient Weight 10/26/24 : 78.2 kg (172 lb 6.4 oz) Mini-Bag Plus bag, Indications: Pneumonia, Community Acquired 0128 (New Bag - Provider: Krystle Alvares, MAUREEN)0935 (New Bag - Provider: Dinora Lerner RN)1311 (New Bag - Provider: Dinora Lerner RN)2045 (New Bag - Provider: Darby Puckett) 0150 (New Bag - Provider: Darby Puckett)0814 (New Bag - Provider: Bulmaro Esquivel RN)1141 (Rate/Dose Verify - Provider: Bulmaro Esquivel RN)1314 (New Bag - Provider: Bulmaro Esquivel RN)1344 (Stopped - Provider: Bulmaro Esquivel RN)1514 (Canceled Entry - Provider: Bulmaro Esquivel RN - Comment: Cancelled from back documented administration.)204 5 (New Bag - Provider: Darby Puckett) 0116 (New Bag - Provider: Darby Puckett)0944 (New Bag - Provider: Dustin Barrett RN)1449 (Not Given - Provider: Dustin Barrett RN - Reason: Other - Comment: no iv [...] 0900 (Dose Auto Held) 0900 (Dose Auto Held)1940 (Unheld by Provider - Provider: Automatic Discharge [...] 2100 2046 (Given - Provider: Darby Puckett) 2043 (Given - Provider: Darby Puckett) calcitRIOL (ROCALTROL) capsule 0.25 mcg 0.25 mcg, oral, Daily, First dose on Thu10/19/24 at 0900 0934 (Given - Provider: Dinora Lerner RN) 0814 (Given - Provider: Bulmaro Esquivel RN) 0947 (Given - Provider: Dustin Barrett RN) dofetilide (TIKOSYN) capsule 125 mcg 125 mcg, oral, 2 times daily, First dose on Thu10/18/24 at 2100, Ensure patient has drug supply prior to discharge., Indications: cardiac arrhythmia 0934 (Given - Provider: Dinora Lerner RN)2045 (Given - Provider: Darby Puckett) 0824 (Given - Provider: Bulmaro Esquivel RN)2043 (Given - Provider: Darby Puckett) 0938 (Given - Provider: Dustin Barrett, MAUREEN) fenofibrate nanocrystallized (TRICOR) tablet 145 mg 145 mg, oral, Daily, First dose on Thu10/18/24 at 1815 0935 (Given - Provider: Dinora Lerner RN) 0824 (Given - Provider: Bulmaro Esquivel RN) 0938 (Given - Provider: Dustin Barrett RN) ipratropium-albuteroL (DUO-NEB) 0.5-2.5 mg/3 mL nebulizer solution 3 mL 3 mL, nebulization, Every 6 hours while awake (respiratory care technician), First dose (after last modification) on Thu10/30/24 at 1500 0956 (Given - Provider: Paul Yan, WATER CONSERVATIONIST)1445 (Given - Provider: Paul Yan, WATER CONSERVATIONIST)2023 (Given - Provider: Nicole Knox, STEPHANI) 0840 (Given - Provider: Jazzy Ring, WATER CONSERVATIONIST)1438 (Given - Provider: Vernell Pino, WATER CONSERVATIONIST)2017 (Given - Provider: Tiffanie Wade, WATER CONSERVATIONIST) 0901 (Given - Provider: Noah Lynne, STEPHANI)1349 (Given - Provider: Noah Lynne, STEPHANI) levothyroxine (SYNTHROID) tablet 25 mcg 25 mcg, [...] 0938 (Given - Provider: Dustin Barrett, MAUREEN) potassium, sodium phosphates (PHOS-NAK) 280-160-250 mg packet [...] Patient/family refused) 0814 (Given - Provider: Bulmaro Esquivel, MAUREEN)2046 (Given - Provider: Darby Puckett) 0938 (Not Given - Provider: Dustin Barrett RN - Reason: Patient/family refused) tamsulosin (FLOMAX) extended release capsule 0.4 mg 0.4 mg, oral, Daily with dinner, First dose on Thu10/23/24 at 1800, Do not crush, chew, cut, dissolve, open or otherwise manipulate tablet/capsule. 1728 (Given - Provider: Dinora Lerner RN) 1749 (Given - Provider: Bulmaro Esquivel, MAUREEN) warfarin (COUMADIN) tablet 1 mg (COMPLETED) 1 [...] at 1500 1314 (Given - Provider: Bulmaro Esquivel, RN) 0957 (Given - Provider: Dustin Barrett [...] mg 1 clorazepate (TRANXENE) tablet 7.5 mg 09/23 digoxin (LANOXIN) tablet 250 mcg 1 [...] documented as of this encounter Care Teams Protective Signal Superintendent Relationship Specialty Start Date End Date Sharita Kelly MD [address] [place] [address] PCP - General Family Medicine 02/24/23 Donte Camacho MD [address] [place] [address] Consulting Physician Cardiology 02/24/23 Delvin Mendenhall MD [address] [place] [address] Consulting Physician Nephrology 02/24/23 [place] [address] [address] [facility] [address] [place] [address] Consulting Physician Pulmonary Disease 11/03/24 Lorie Murray, PAINTER HAND [address] [address] [facility] [address] [place] [address] Nurse Practitioner Urology 11/03/24 documented as of this encounter
--- OUTSIDE RECORDS SUMMARY | 2024-11-04 15:08 | XMS_ITS | Encounter Summary ---
Author Organization [facility] Healthcare Address [address] [place] [address] Care Team Providers Care Drilling Field Operator Name Role Phone Sharita Kelly MD Primary Care Provider Donte Camacho MD Unavailable [phone] Delvin Mendenhall MD Unavailable [phone] Shailesh Pabon MD Unavailable Lorie Murray CLIENT DEVELOPMENT DIRECTOR Unavailable Encounter Details Date Type Department Care Team (Late st Contact Info) Description 11/03/2024 3:44 PM CDT Hospital Encounter [facility] [address] [place] [address] Social History Tobacco Use Types Packs/Day Years Used Date Smoking Tobacco: Former Cigarettes 1 956 - 1997 Passive Smoke Exposure: Past Smokeless Tobacco: Never [facility] Utilities Answer Date Recorded In the past 12 months has [employer], gas, oil, or water company threatened to [...] often do you attend chur ch or temple services? More than 4 times per year 10/19/2024 Do you belong to any clubs o r organizations such as sikhism groups, unions, fraternal or athletic groups, or [...] place to sleep or slept in a half-way (including now)? No 02/24/2023 Housing Stability Vital Sign Answer Carmine e Recorded In the last 12 months, was t here a time when you were not able to pay the mortgage or rent on time? No 10/19/2024 In the past 12 months, how m any times have you moved where you were living? 0 10/19/2024 At any time in the past 12 m [facility], were you homeless or living in a half-way (including now)? No 10/19/2024 Personal Safety Answer Date Recorded Have you ever been in or are you currently in a harmful physical or emotional relationship or is someone making you feel afraid or unsafe? 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 Gender Identity Not on file Sexual Orientation Not on file documented as of this encounter Plan of Treatment Not on file documented as of this encounter Visit Diagnoses Not on filedocumented in this encounter Care Teams Drilling Field Operator Relationship Specialty Start Date End Date Sharita Kelly MD [address] [place] [address] PCP - General Family Medicine 02/24/23 Donte Camacho MD [address] [place] [address] Consulting Physician Cardiology 02/24/23 Delvin Mendenhall MD [address] [place] [address] Consulting Physician Nephrology 02/24/23 [place] [address] [facility] [address] [place] [address] Consulting Physician Pulmonary Disease 11/03/24 Lorie Murray, CLIENT DEVELOPMENT DIRECTOR [address] [facility] [address] [place] [address] Nurse Practitioner Urology 11/03/24 documented as of this encounter
--- OUTSIDE RECORDS SUMMARY | 2024-11-04 15:09 | XMS_ITS | Referral Summary ---
Author Organization [facility] Address [address] [place] [address] Care Team Providers Care Polysomnography Technician Name Role Phone Sharita Kelly MD Primary Care Provider Donte Camacho MD Unavailable Delvin Mendenhall MD Unavailable [phone] Shailesh Pabon MD Unavailable Lorie Murray NP Unavailable Encounters Date Type Department Care Team Description 11/04/2024 Hospital Encounter [facility] ADMIT [id number] [id number] Max Phillips MD 11/03/2024 3:44 PM CDT Hospital Encounter [facility] AMBULANCE BILLING [id number] [phone] 10/18/2024 10:28 AM CDT - 11/03/2024 3:41 PM CDT Hospital Encounter [facility] Oncology [address] [place] [address] Zeke Correa DO Ogunremi, Olumide Omolulu, MD [...] 1 tablet (25 mcg total) by mouth activities concierge before breakfast 01/08/20 19 Active atorvastatin (LIPITOR) [...] by mouth once a week on Sat Active amoxicillin-clavula pamela (AUGMENTIN) 875-125 mg per [...] (5 mg total) by mouth daily 07/12/19 025 Discontin ued(Error ) furosemide (LASIX) 40 [...] mouth daily 025 Discontin ued(Error ) multivit ynjnanom-xxxp-RH-ca lcium (THERA-M) 9 mg iron-400 mcg tabletIndications:V itamin Deficiency Prevention Take 1 tablet by mouth daily 025 Discontin ued(Error ) digoxin (LANOXIN) 250 mcg (0.25 mg) tablet Take 1 tablet (250 mcg total) by mouth 3 (three) times a week on Mon, Wed, Thu10/08/19 025 Discontin ued(Stop Taking at Discharge [...] Used Date Smoking Tobacco: Former Cigarettes 1 - 1997 Passive Smoke Exposure: Past Smokeless Tobacco: Never Tobacco Cessation:Counseling Given: Not Answered [facility] [employer] Answer Date Recorded In the past 12 months has [employer], oil, or water [employer] threatened to shut off services in your [...] week 10/19/2024 How often do you attend [facility] or scient[facility] services? More than 4 times per year 10/19/2024 Do you belong to any clubs o r organizations such as protestant groups, unions, fraternal or athletic groups, or [...] you are drinking? Patient does not drink 3 Frequency of Binge Drinking Not on [...] place to sleep or slept in a senior care (including now)? No 02/24/2023 Housing Stability Vital Sign Answer Carmine e Recorded In the last 12 months, was t here a time when you were not able to pay the mortgage or rent on time? No 10/19/2024 In the past 12 months, how m any times have you moved where you were living? 0 10/19/2024 At any time in the past 12 m [facility], were you homeless or living in a senior care (including now)? No 10/19/2024 Personal Safety Answer Date Recorded Have you ever been in or are you currently in a harmful physical or emotional relationship or is someone making you feel afraid or unsafe? 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 Gender Identity Not on file Sexual Orientation [...] on file Medical Devices Implanted Type Area Software Program Manager Device Identifier Shelf Expiration Date Model [...] LAB BLOOD ORDERABLES Final Resu lt LAURIE [id number] Department [place] [address] * (ABNORMAL) Differential, auto (11/03/2024 6:28 AM CDT) Neutrophil abs 2.83 1.50 - 6.50 K/cumm Imm gran abs 0.04 0.00 - 0.10 K/cumm [facility] CH Lymphocyte abs 0.56(L) 0.80 - 3.30 K/cumm [facility] Monocyte abs 0.38 0.20 - 0.80 K/cumm [facility] Eosinophil abs 0.12 0.00 - 0.50 K/cumm [facility] Basophil abs 0.02 0.00 - 0.10 K/cumm [facility] Neutrophil pct 71.7 % [facility] Comment: Interpretive Data Percent cell count reference ranges are not reported, since discordance with absolute values may lead to misinterpretation of CBC data. Current Interpretive Data was last revised on 2017. Imm gran pct 1.0 % [facility] Comment: Interpretive Data [...] on 2017. Monocyte pct 9.6 % [facility] Comment: Interpretive Data Percent cell count reference ranges are not reported, since discordance with absolute values may lead to misinterpretation of CBC data. Current Interpretive Data was last revised on 2017. Eosinophil pct 3.0 % [facility] Comment: Interpretive Data Percent cell [...] BLOOD ORDERABLES Final Result LAURIE [address] [place], [place] [id number] * (ABNORMAL) CBC with auto differential (11/03/2024 6:28 AM CDT) WBC 3.95 3.80 - 9.90 K/cumm Hgb 12.0(L) 13.0 - 17.5 g/dL [facility] Hct 36.4(L) 38.9 - 50.3 % [facility] Plt 143(L) 150 - 400 K/cumm [facility] MPV 11.7 9.1 - 12.3 fL [facility] RBC 3.85(L) 4.30 - 5.80 M/cumm [facility] MCV 94.5 81.3 - 96.4 fL [facility] MCH 31.2 27.1 - 33.3 pg [facility] MCHC 33.0 32.3 - 35.7 g/dL [facility] RDW CV 16.5(H) 11.1 - 14.9 % [facility] RDW SD 57.1(H) 35.7 - 48.1 fL [facility] NRBC abs 0.00 0.00 - 0.01 K/cumm [facility] Blood 11/03/2024 6:28 AM CDT 11/03/2024 6:49 AM CDT Namrata Spencer NP LAB BLOOD ORDERABLES Final Result BRYNYEE [address] Department [facility] [place] [address] * (ABNORMAL) Protime-INR (11/03/2024 6:28 AM CDT) PT 42.2(H) 9.7 - 13.0 sec INR 3.80(H) 0.90 - 1.20 [facility] Comment: Interpretive data Oral anticoagulant therapeutic ranges: Venous thromboembolism prophylaxis or treatment: 2.0-3.0 CARDIOLOGY Standard range: 2.0-3.0 High-intensity range: 2.5-3.5 Refer to indication-specific guidelines for appropriate target ranges for prosthetic heart valve replacement. Current interpretive data was last revised on 2019. Blood 11/03/2024 6:28 AM CDT 11/03/2024 6:48 AM CDT Luan Guillermo DO LAB BLOOD ORDERABLES Fay l Result [facility] [address] Department [place] [address] * (ABNORMAL) Renal function panel (11/03/2024 6:28 AM CDT) Sodium 133(L) 135 - 145 mmol/L Potassium, pl 3.6 3.3 - 4.9 mmol/L [facility] Chloride 94(L) 97 - 110 mmol/L [facility] CO2 31 22 - 32 mmol/L [facility] Anion gap 8 2 - 15 mmol/L [facility] BUN 25 6 - 25 mg/dL [facility] Creatinine 1.22 0.80 - 1.30 mg/dL [facility] Glucose 118 70 - 199 mg/dL [facility] Comment: Interpretive Data Fasting glucose >/= 126 [...] 2022. Calcium 8.1(L) 8.5 - 10.3 mg/dL [facility] Phosphorus, pl 2.4 2.3 - 4.5 mg/dL [facility] Albumin 2.8(L) 3.5 - 5.0 g/dL [facility] Blood 11/03/2024 6:28 AM CDT 11/03/2024 6:47 AM CDT us Ryan Bailey MD LAB BLOOD ORDERABLES Final Resu lt Performing Organization Address [facility] Co de Phone Number LAURIE ROSALES [address] Department of [facility] [place], [place] [phone] * (ABNORMAL) eGFR (11/02/2024 7:24 AM CDT) [...] ORDERABLES Final Resu lt Performing Organization Address City/[facility]/ZIP Co de Phone Number LAURIE ROSALES [address] Department of [facility] [place], [place] [id number] * (ABNORMAL) Differential, auto (11/02/2024 7:24 AM CDT) Neutrophil abs 3.09 1.50 - 6.50 K/cumm Imm gran abs 0.02 0.00 - 0.10 K/cumm [facility] Lymphocyte abs 0.54(L) 0.80 - 3.30 K/cumm [facility] Monocyte abs 0.35 0.20 - 0.80 K/cumm [facility] Eosinophil abs 0.09 0.00 - 0.50 K/cumm [facility] Basophil abs 0.02 0.00 - 0.10 K/cumm [facility] Neutrophil pct 75.2 % [facility] Comment: Interpretive Data Percent cell count reference ranges are not reported, since discordance with absolute values may lead to misinterpretation of CBC data. Current Interpretive Data was last revised on 2017. Imm gran pct 0.5 % [facility] Comment: Interpretive Data Percent cell count reference ranges are not reported, since discordance with absolute values may lead to misinterpretation of CBC data. Current Interpretive Data was last revised on 2017. Lymphocyte pct 13.1 % [facility] Comment: Interpretive Data Percent cell count reference ranges are not reported, since discordance with absolute values may lead to misinterpretation of CBC data. Current Interpretive Data was last revised on 2017. Monocyte pct 8.5 % [facility] Comment: Interpretive Data Percent cell count reference ranges are not reported, since discordance with absolute values may lead to misinterpretation of CBC data. Current Interpretive Data was last revised on 2017. Eosinophil pct 2.2 % [facility] Comment: Interpretive Data Percent cell count reference ranges are not reported, since discordance with absolute values may lead to misinterpretation of CBC data. Current Interpretive Data was last revised on 2017. Basophil pct 0.5 % [facility] Comment: Interpretive Data Percent cell count reference ranges are not reported, since discordance with absolute values may lead to misinterpretation of CBC data. Current Interpretive Data was last revised on 2017. Blood 11/02/2024 7:24 AM CDT 11/02/2024 7:29 AM CDT us Namrata Spencer NP LAB BLOOD ORDERABLES Final Result LAURIE [address] Department [place] [address] * (ABNORMAL) CBC with auto differential (11/02/2024 7:24 AM CDT) WBC 4.11 3.80 - 9.90 K/cumm Hgb 12.2(L) 13.0 - 17.5 g/dL [facility] Hct 36.7(L) 38.9 - 50.3 % [facility] Plt 147(L) 150 - 400 K/cumm [facility] MPV 11.0 9.1 - 12.3 fL [facility] RBC 3.90(L) 4.30 - 5.80 M/cumm [facility] MCV 94.1 81.3 - 96.4 fL [facility] MCH 31.3 27.1 - 33.3 pg [facility] MCHC 33.2 32.3 - 35.7 g/dL [facility] RDW CV 16.6(H) 11.1 - 14.9 % [facility] RDW SD 57.5(H) 35.7 - 48.1 fL [facility] NRBC abs 0.00 0.00 - 0.01 K/cumm [facility] Blood 11/02/2024 7:24 AM CDT 11/02/2024 7:29 AM CDT Namrata Spencer NP LAB BLOOD ORDERABLES Final Result [facility] [address] Department [place] [address] * (ABNORMAL) Protime-INR (11/02/2024 7:24 AM CDT) Pathologist [facility] PT 43.7(H) 9.7 - 13.0 sec INR 3.93(H) 0.90 - 1.20 [facility] Comment: Interpretive data Oral anticoagulant therapeutic ranges: Venous thromboembolism prophylaxis or treatment: 2.0-3.0 CARDIOLOGY Standard range: 2.0-3.0 High-intensity range: 2.5-3.5 Refer to indication-specific guidelines for appropriate target ranges for prosthetic heart valve replacement. Current interpretive data was last revised on 2019. Blood 11/02/2024 7:24 AM CDT 11/02/2024 7:30 AM CDT us Luan Guillermo DO LAB BLOOD ORDERABLES Fay l Result Performing Organization Address City/[facility]/ZIP Co de Phone Number [facility] [address] Department [place] [address] * (ABNORMAL) Renal function panel (11/02/2024 7:24 AM CDT) Sodium 135 135 - 145 mmol/L Potassium, pl 3.7 3.3 - 4.9 mmol/L [facility] Chloride 96(L) 97 - 110 mmol/L [facility] CO2 32 22 - 32 mmol/L [facility] Anion gap 7 2 - 15 mmol/L [facility] BUN 29(H) 6 - 25 mg/dL [facility] Creatinine 1.27 0.80 - 1.30 mg/dL [facility] [...] LAB [place] [address] [address] Department [place] [address] * XR Chest Pa Lateral 2 Views [...] MD LAB BLOOD ORDERABLES Final Resu lt [facility] [address] Department [place] [address] * (ABNORMAL) Differential, auto (11/01/2024 4:00 AM CDT) Neutrophil abs 2.11 1.50 - 6.50 K/cumm Imm gran abs 0.01 0.00 - 0.10 K/cumm [facility] Lymphocyte abs 0.44(L) 0.80 - 3.30 K/cumm [facility] Monocyte abs 0.30 0.20 - 0.80 K/cumm [facility] Eosinophil abs 0.10 0.00 - 0.50 K/cumm [facility] Basophil abs 0.01 0.00 - 0.10 K/cumm [facility] Neutrophil pct 71.1 % [facility] Comment: Interpretive Data Percent cell count reference ranges are not reported, since discordance with absolute values may lead to misinterpretation of CBC data. Current Interpretive Data was last revised on 2017. Imm gran pct 0.3 % [facility] Comment: Interpretive Data Percent cell count reference ranges are not reported, since discordance with absolute values may lead to misinterpretation of CBC data. Current Interpretive Data was last revised on 2017. Lymphocyte pct 14.8 % [facility] Comment: Interpretive Data Percent cell count reference ranges are not reported, since discordance with absolute values may lead to misinterpretation of CBC data. Current Interpretive Data was last revised on 2017. Monocyte pct 10.1 % [facility] Comment: Interpretive Data Percent cell count reference ranges are not reported, since discordance with absolute values may lead to misinterpretation of CBC data. Current Interpretive Data was last revised on 2017. Eosinophil pct 3.4 % [facility] Comment: Interpretive Data Percent cell count reference ranges are not reported, since discordance with absolute values may lead to misinterpretation of CBC data. Current Interpretive Data was last revised on 2017. Basophil pct 0.3 % [facility] Comment: Interpretive Data Percent cell count reference ranges are not reported, since discordance with absolute values may lead to misinterpretation of CBC data. Current Interpretive Data was last revised on 2017. Blood 11/01/2024 4:00 AM CDT 11/01/2024 4:22 AM CDT Namrata Spencer NP LAB BLOOD ORDERABLES Final Result [facility] [address] Department [place] [address] * (ABNORMAL) CBC with auto differential (11/01/2024 4:00 AM CDT) WBC 2.97(L) 3.80 - 9.90 K/cumm Hgb 12.1(L) 13.0 - 17.5 g/dL [facility] Hct 36.3(L) 38.9 - 50.3 % [facility] Plt 133(L) 150 - 400 K/cumm [facility] MPV 11.9 9.1 - 12.3 fL [facility] RBC 3.91(L) 4.30 - 5.80 M/cumm [facility] MCV 92.8 81.3 - 96.4 fL [facility] MCH 30.9 27.1 - 33.3 pg [facility] MCHC 33.3 32.3 - 35.7 g/dL [facility] RDW CV 16.0(H) 11.1 - 14.9 % [facility] RDW SD 54.2(H) 35.7 - 48.1 fL [facility] NRBC abs 0.00 0.00 - 0.01 K/cumm LAURIE Blood 11/01/2024 4:00 AM CDT 11/01/2024 4:22 AM CDT Namrata Spencer APARTMENT MANAGER LAB BLOOD ORDERABLES Final Result Performing Organization Address [facility] Co de Phone Number LAURIE [address] Department [place] [address] * (ABNORMAL) Protime-INR (11/01/2024 4:00 AM CDT) PT 29.6(H) 9.7 - 13.0 sec INR 2.69(H) 0.90 - 1.20 LAURIE Comment: Interpretive data [...] ORDERABLES Fay l Result Performing Organization Address City/[facility] Co de Phone Number [facility] [address] Department of [facility] [place], [place] [id number] * (ABNORMAL) Renal function panel (11/01/2024 4:00 AM CDT) Sodium 137 135 - 145 mmol/L Potassium, pl 3.4 3.3 - 4.9 mmol/L [facility] Chloride 96(L) 97 - 110 mmol/L [facility] CO2 35(H) 22 - 32 mmol/L [facility] Anion gap 6 2 - 15 mmol/L [facility] BUN 34(H) 6 - 25 mg/dL [facility] Creatinine 1.37(H) 0.80 - 1.30 mg/dL [facility] Glucose 92 70 - 199 mg/dL [facility] Comment: Interpretive Data Fasting glucose >/= 126 [...] 2022. Calcium 8.4(L) 8.5 - 10.3 mg/dL [facility] Phosphorus, pl 2.0(L) 2.3 - 4.5 mg/dL [facility] Albumin 2.8(L) 3.5 - 5.0 g/dL [facility] Blood 11/01/2024 4:00 AM CDT 11/01/2024 4:22 AM CDT us Ryan Bailey MD LAB BLOOD ORDERABLES Final Resu lt LAURIE [address] Department [place] [address] * (ABNORMAL) eGFR (10/31/2024 12:06 AM CDT) [...] MD LAB BLOOD ORDERABLES Final Res ult [facility] [address] Department of Laboratories [place], [place] [id number] * (ABNORMAL) Differential, auto (10/31/2024 12:06 AM CDT) Neutrophil abs 2.10 1.50 - 6.50 K/cumm Imm gran abs 0.01 0.00 - 0.10 K/cumm [facility] Lymphocyte abs 0.43(L) 0.80 - 3.30 K/cumm [facility] Monocyte abs 0.41 0.20 - 0.80 K/cumm [facility] Eosinophil abs 0.07 0.00 - 0.50 K/cumm [facility] Basophil abs 0.01 0.00 - 0.10 K/cumm [facility] Neutrophil pct 69.4 % [facility] Comment: Interpretive Data Percent cell count reference ranges are not reported, since discordance with absolute values may lead to misinterpretation of CBC data. Current Interpretive Data was last revised on 2017. Imm gran pct 0.3 % [facility] Comment: Interpretive Data Percent cell count reference ranges are not reported, since discordance with absolute values may lead to misinterpretation of CBC data. Current Interpretive Data was last revised on 2017. Lymphocyte pct 14.2 % [facility] Comment: Interpretive Data Percent cell count reference ranges are not reported, since discordance with absolute values may lead to misinterpretation of CBC data. Current Interpretive Data was last revised on 2017. Monocyte pct 13.5 % [facility] Comment: Interpretive Data Percent cell count reference ranges are not reported, since discordance with absolute values may lead to misinterpretation of CBC data. Current Interpretive Data was last revised on 2017. Eosinophil pct 2.3 % LAURIE ROSALES Comment: Interpretive Data Percent [...] LAB BLOOD ORDERABLES Final Result LAURIE ROSALES [address] Department [place] [address] * (ABNORMAL) Pro B-type natriuretic peptide (10/31/2024 [...] MD LAB BLOOD ORDERABLES Final Resu lt [facility] [address] Department [place] [address] * (ABNORMAL) CBC with auto differential (10/31/2024 12:06 AM CDT) WBC 3.03(L) 3.80 - 9.90 K/cumm Hgb 11.3(L) 13.0 - 17.5 g/dL [facility] Hct 33.1(L) 38.9 - 50.3 % [facility] Plt 124(L) 150 - 400 K/cumm [facility] MPV 11.4 9.1 - 12.3 fL [facility] RBC 3.65(L) 4.30 - 5.80 M/cumm [facility] MCV 90.7 81.3 - 96.4 fL [facility] MCH 31.0 27.1 - 33.3 pg [facility] MCHC 34.1 32.3 - 35.7 g/dL [facility] RDW CV 15.1(H) 11.1 - 14.9 % [facility] RDW SD 50.5(H) 35.7 - 48.1 fL [facility] NRBC abs 0.00 0.00 - 0.01 K/cumm [facility] Blood 10/31/2024 12:0 6 AM CDT 10/31/2024 12:13 AM CDT Namrata Julianedeiondejon Spencer APARTMENT MANAGER LAB BLOOD ORDERABLES Final Result LAURIE [address] Department [place] [address] * (ABNORMAL) Protime-INR (10/31/2024 12:06 AM CDT) PT 18.9(H) 9.7 - 13.0 sec INR 1.73(H) 0.90 - 1.20 [facility] Comment: Interpretive data Oral anticoagulant therapeutic ranges: [...] ORDERABLES Fay l Result Performing Organization Address City/[facility]/ZIP Co de Phone Number LAURIE ROSALES [address] Department [place] [address] * (ABNORMAL) Basic metabolic panel (10/31/2024 12:06 AM CDT) Sodium 123(C) 135 - 145 mmol/L Comment:Critical Result call ed to and read back by Gracy Bey, DATE: 2024-10-31 00:59:18 BY: Silverio Parr Potassium, pl 3.7 3.3 - 4.9 mmol/L [facility] Chloride 89(L) 97 - 110 mmol/L [facility] CO2 30 22 - 32 mmol/L [facility] Anion gap 4 2 - 15 mmol/L [facility] BUN 32(H) 6 - 25 mg/dL [facility] Creatinine 1.26 0.80 - 1.30 mg/dL [facility] Glucose 106 70 - 199 mg/dL [facility] Comment: Interpretive Data Fasting glucose >/= 126 [...] LAB BLOOD ORDERABLES Final Res ult LAURIE [address] Department [place] [address] * XR Chest 1 View (10/30/2024 7:26 [...] LAB BLOOD ORDERABLES Final Res ult LAURIE [address] Department [place] [address] * (ABNORMAL) Basic metabolic panel (10/30/2024 4:03 PM CDT) Sodium 121(C) 135 - 145 mmol/L Comment:Critical Result call ed to and read back by Dinora Meier, DATE: 2024-10-30 17:26:18 BY: Georgiana Devine Potassium, pl 4.0 3.3 - 4.9 mmol/L [facility] Chloride 85(L) 97 - 110 mmol/L [facility] CO2 26 22 - 32 mmol/L [facility] Anion gap 10 2 - 15 mmol/L [facility] BUN 30(H) 6 - 25 mg/dL [facility] Creatinine 1.19 0.80 - 1.30 mg/dL [facility] Glucose 110 70 - 199 mg/dL [facility] Comment: Interpretive Data Fasting glucose >/= 126 [...] 2022. Calcium 7.8(L) 8.5 - 10.3 mg/dL [facility] Blood 10/30/2024 4:03 PM CDT 10/30/2024 4:53 PM CDT us Delvin Mendenhall MD LAB BLOOD ORDERABLES Final Res ult LAURIE [address] Department [place] [address] * eGFR (10/30/2024 7:25 AM CDT) eGFR [...] LAB BLOOD ORDERABLES Final Res ult [address]IE [address] Department [place] [address] * (ABNORMAL) Pro B-type natriuretic peptide (10/30/2024 [...] ORDERABLES Final Resu lt Performing Organization Address City/[facility]/ZIP Co de Phone Number LAURIE ROSALES [address] Department [place] [address] * (ABNORMAL) TSH (10/30/2024 7:25 AM CDT) Thyroid Stimulating Hormone 5.74(H) 0.30 - 4.20 mcIUnit/mL Blood 10/30/2024 7:25 AM CDT 10/30/2024 11:01 AM CDT Delvin Mendenhall MD LAB BLOOD ORDERABLES Final Res ult Performing Organization Address City/[facility] Co de Phone Number LAURIE [address] Department of [facility] [place] [address] * (ABNORMAL) Basic metabolic panel (10/30/2024 7:25 AM CDT) Sodium 121(C) 135 - 145 mmol/L Comment:Critical Result call ed to and read back by Adam Meier, DATE: 2024-10-30 09:14:47 BY: Brandno Olmedo Potassium, pl 3.6 3.3 - 4.9 [...] BLOOD ORDERABLES Final Res ult LAURIE ROSALES [address] Department of Laboratories [place] [phone] * (ABNORMAL) eGFR (10/30/2024 12:26 AM CDT) [...] MD LAB BLOOD ORDERABLES Final Res ult [facility] [address] [facility] Department [place] [address] * (ABNORMAL) Differential, auto (10/30/2024 12:26 AM CDT) Neutrophil abs 2.64 1.50 - 6.50 K/cumm Imm gran abs 0.04 0.00 - 0.10 K/cumm [facility] Lymphocyte abs 0.56(L) 0.80 - 3.30 K/cumm [facility] Monocyte abs 0.49 0.20 - 0.80 K/cumm [facility] Eosinophil abs 0.08 0.00 - 0.50 K/cumm [facility] Basophil abs 0.01 0.00 - 0.10 K/cumm [facility] Neutrophil pct 69.1 % [facility] Comment: Interpretive Data Percent cell count reference ranges are not reported, since discordance with absolute values may lead to misinterpretation of CBC data. Current Interpretive Data was last revised on 2017. Imm gran pct 1.0 % [facility] Comment: Interpretive Data Percent cell count reference ranges are not reported, since discordance with absolute values may lead to misinterpretation of CBC data. Current Interpretive Data was last revised on 2017. Lymphocyte pct 14.7 % [facility] Comment: Interpretive Data Percent cell count reference ranges are not reported, since discordance with absolute values may lead to misinterpretation of CBC data. Current Interpretive Data was last revised on 2017. Monocyte pct 12.8 % [facility] Comment: Interpretive Data Percent cell count reference ranges are not reported, since discordance with absolute values may lead to misinterpretation of CBC data. Current Interpretive Data was last revised on 2017. Eosinophil pct 2.1 % [facility] Comment: Interpretive Data Percent cell count reference ranges are not reported, since discordance with absolute values may lead to misinterpretation of CBC data. Current Interpretive Data was last revised on 2017. Basophil pct 0.3 % [facility] Comment: Interpretive Data Percent cell count reference ranges are not reported, since discordance with absolute values may lead to misinterpretation of CBC data. Current Interpretive Data was last revised on 2017. Blood 10/30/2024 12:2 6 AM CDT 10/30/2024 12:40 AM CDT Namrata Vidya Spencer NP LAB BLOOD ORDERABLES Final Result LAURIE [address] Department [employer] [place], [place] [id number] * (ABNORMAL) CBC with auto differential (10/30/2024 12:26 AM CDT) WBC 3.82 3.80 - 9.90 K/cumm Hgb 12.2(L) 13.0 - 17.5 g/dL [facility] Hct 35.6(L) 38.9 - 50.3 % [facility] Plt 122(L) 150 - 400 K/cumm [facility] MPV 11.9 9.1 - 12.3 fL [facility] RBC 3.89(L) 4.30 - 5.80 M/cumm [facility] MCV 91.5 81.3 - 96.4 fL [facility] MCH 31.4 27.1 - 33.3 pg [facility] MCHC 34.3 32.3 - 35.7 g/dL [facility] RDW CV 15.2(H) 11.1 - 14.9 % [facility] RDW SD 51.4(H) 35.7 - 48.1 fL [facility] NRBC abs 0.00 0.00 - 0.01 K/cumm [facility] Blood 10/30/2024 12:2 6 AM CDT 10/30/2024 12:40 AM CDT Namrata Spencer NP LAB BLOOD ORDERABLES Final Result LAURIE [address] Department of [employer] [place] [address] * (ABNORMAL) Protime-INR (10/30/2024 12:26 AM CDT) PT 18.9(H) 9.7 - 13.0 sec INR 1.73(H) 0.90 - 1.20 [facility] Comment: Interpretive data Oral anticoagulant therapeutic ranges: Venous thromboembolism prophylaxis or treatment: 2.0-3.0 CARDIOLOGY Standard range: 2.0-3.0 High-intensity range: 2.5-3.5 Refer to indication-specific guidelines for appropriate target ranges for prosthetic heart valve replacement. Current interpretive data was last revised on 2019. Blood 10/30/2024 12:2 6 AM CDT 10/30/2024 12:39 AM CDT Luan Guillermo DO LAB BLOOD ORDERABLES Fay l Result LAURIE [address] Department [place] [address] * (ABNORMAL) Basic metabolic panel (10/30/2024 12:26 AM CDT) Sodium 119(C) 135 - 145 mmol/L Comment:Critical Result call ed to and read back by Sherrell Howard, DATE: 2024-10-30 01:24:16 BY: Rose Mary Anne Potassium, pl 3.8 3.3 - 4.9 mmol/L [facility] Chloride 83(L) 97 - 110 mmol/L [facility] CO2 29 22 - 32 mmol/L [facility] Anion gap 7 2 - 15 mmol/L [facility] BUN 32(H) 6 - 25 mg/dL [facility] Creatinine 1.25 0.80 - 1.30 mg/dL [facility] Glucose 117 70 - 199 mg/dL [facility] Comment: Interpretive Data Fasting glucose >/= 126 [...] - 10.3 mg/dL LAURIE ROSALES Blood 10/30/2024 12:2 6 AM CDT 10/30/2024 12:40 AM CDT Delvin Mendenhall MD LAB BLOOD ORDERABLES Final Res ult Performing Organization Address [facility] Co de Phone Number LAURIE ROSALES [address] [place] [address] * (ABNORMAL) eGFR (10/29/2024 9:15 PM CDT) [...] ORDERABLES Final Res ult Performing Organization Address [facility] Co de Phone Number LAURIE ROSALES [address] [place] [address] * (ABNORMAL) Basic metabolic panel (10/29/2024 9:15 [...] 2022. Calcium 7.9(L) 8.5 - 10.3 mg/dL [facility] Blood 10/29/2024 9:15 PM CDT 10/29/2024 9:19 PM CDT us Delvin Mendenhall MD LAB BLOOD ORDERABLES Final Res ult [facility] [address] Department [place] [address] * (ABNORMAL) eGFR (10/29/2024 3:45 [...] Spencer NP LAB BLOOD ORDERABLES Final Result [facility] [address] Department [place] [address] * (ABNORMAL) Differential, auto (10/29/2024 3:45 AM CDT) Neutrophil abs 2.19 1.50 - 6.50 K/cumm Imm gran abs 0.02 0.00 - 0.10 K/cumm [facility] Lymphocyte abs 0.56(L) 0.80 - 3.30 K/cumm [facility] Monocyte abs 0.41 0.20 - 0.80 K/cumm [facility] Eosinophil abs 0.09 0.00 - 0.50 K/cumm [facility] Basophil abs 0.03 0.00 - 0.10 K/cumm [facility] Neutrophil pct 66.4 % [facility] Comment: Interpretive Data Percent cell count reference ranges are not reported, since discordance with absolute values may lead to misinterpretation of CBC data. Current Interpretive Data was last revised on 2017. Imm gran pct 0.6 % [facility] Comment: Interpretive Data Percent cell count reference ranges are not reported, since discordance with absolute values may lead to misinterpretation of CBC data. Current Interpretive Data was last revised on 2017. Lymphocyte pct 17.0 % [facility] Comment: Interpretive Data Percent cell count reference ranges are not reported, since discordance with absolute values may lead to misinterpretation of CBC data. Current Interpretive Data was last revised on 2017. Monocyte pct 12.4 % [facility] Comment: Interpretive Data Percent cell count reference ranges are not reported, since discordance with absolute values may lead to misinterpretation of CBC data. Current Interpretive Data was last revised on 2017. Eosinophil pct 2.7 % [facility] Comment: Interpretive Data Percent cell count reference ranges are not reported, since discordance with absolute values may lead to misinterpretation of CBC data. Current Interpretive Data was last revised on 2017. Basophil pct 0.9 % [facility] Comment: Interpretive Data Percent cell count reference ranges are not reported, since discordance with absolute values may lead to misinterpretation of CBC data. Current Interpretive Data was last revised on 2017. Blood 10/29/2024 3:45 AM CDT 10/29/2024 4:28 AM CDT Namrata Spencer NP LAB BLOOD ORDERABLES Final Result [facility] [address] Department [place] [address] * (ABNORMAL) CBC with auto differential (10/29/2024 3:45 AM CDT) WBC 3.30(L) 3.80 - 9.90 K/cumm Hgb 11.9(L) 13.0 - 17.5 g/dL [facility] Hct 35.3(L) 38.9 - 50.3 % [facility] Plt 120(L) 150 - 400 K/cumm [facility] MPV 12.5(H) 9.1 - 12.3 fL [facility] RBC 3.79(L) 4.30 - 5.80 M/cumm [facility] MCV 93.1 81.3 - 96.4 fL [facility] MCH 31.4 27.1 - 33.3 pg [facility] MCHC 33.7 32.3 - 35.7 g/dL [facility] RDW CV 15.7(H) 11.1 - 14.9 % [facility] RDW SD 53.3(H) 35.7 - 48.1 fL [facility] NRBC abs 0.00 0.00 - 0.01 K/cumm [facility] Blood 10/29/2024 3:45 AM CDT 10/29/2024 4:28 AM CDT Namrata Spencer APARTMENT MANAGER LAB BLOOD ORDERABLES Final Result Performing Organization Address [facility] Co de Phone Number [facility] [address] [place] [address] * (ABNORMAL) Protime-INR (10/29/2024 3:45 AM CDT) PT 17.0(H) 9.7 - 13.0 sec INR 1.56(H) 0.90 - 1.20 [facility] Comment: Interpretive data Oral anticoagulant therapeutic ranges: Venous thromboembolism prophylaxis or treatment: 2.0-3.0 CARDIOLOGY Standard range: 2.0-3.0 High-intensity range: 2.5-3.5 Refer to indication-specific guidelines for appropriate target ranges for prosthetic heart valve replacement. Current interpretive data was last revised on 2019. Blood 10/29/2024 3:45 AM CDT 10/29/2024 4:28 AM CDT Luan Guillermo DO LAB BLOOD ORDERABLES Fay l Result Performing Organization Address City/[facility]/ZIP Co de Phone Number [facility] [address] [place] [address] * (ABNORMAL) Basic metabolic panel (10/29/2024 3:45 AM CDT) Sodium 126(L) 135 - 145 mmol/L Potassium, pl 3.9 3.3 - 4.9 mmol/L [facility] Chloride 85(L) 97 - 110 mmol/L [facility] CO2 33(H) 22 - 32 mmol/L [facility] Anion gap 8 2 - 15 mmol/L [facility] BUN 34(H) 6 - 25 mg/dL [facility] Creatinine 1.53(H) 0.80 - 1.30 mg/dL [facility] Glucose 96 70 - 199 mg/dL [facility] Comment: Interpretive Data Fasting glucose >/= 126 [...] 2022. Calcium 8.3(L) 8.5 - 10.3 mg/dL [facility] Blood 10/29/2024 3:45 AM CDT 10/29/2024 4:27 AM CDT Namrata Spencer NP LAB BLOOD ORDERABLES Final Result Performing Organization Address City/[facility]/ZIP Co de Phone Number LAURIE ROSALES [address] [place] [address] * Sodium, urine, random (10/28/2024 12:12 PM CDT) Sodium, ur 21 mmol/L Comment: Interpretive Data No reference range established. Current interpretive data was last revised 2018. Urine (Urine, Clean Catch) 10/28/2024 12:12 PM CDT 10/28/2024 12:26 PM CDT Ryan Bailey MD LAB URINE ORDERABLES Final Resu lt Performing Organization Address City/[facility]/ZIP Co de Phone Number [facility] [address] Department of [employer] [place] [address] * Potassium, urine, random (10/28/2024 12:12 PM CDT) Potassium conc, ur 11.0 mmol/L Comment: Interpretive Data No reference range established. Current interpretive data was last revised 2018. Urine (Urine, Clean Catch) 10/28/2024 12:12 PM CDT 10/28/2024 12:26 PM CDT us Ryan Bailey MD LAB URINE ORDERABLES Final Resu lt Performing Organization Address [facility]/ZIP Co de Phone Number LAURIE ROSALES [address] Department [employer] [place] [address] * Osmolality, urine (10/28/2024 12:12 PM CDT) Osmo, ur 123 mOsm/kg Comment:Testing performed by : [facility], [address] [place]., [address] Urine 10/28/2024 12:1 2 PM CDT 10/28/2024 2:34 PM CDT us Ryan Bailey MD LAB URINE ORDERABLES Final Resu lt Performing Organization Address [facility] Co de Phone Number BRYNYEE ROSALES [address] Department [employer] [place] [address] * Chloride, urine, random (10/28/2024 12:12 PM CDT) Chloride, ur 22 mmol/L Comment: Interpretive Data No reference range established. Current interpretive data was last revised 2018. Urine (Urine, Clean Catch) 10/28/2024 12:12 PM CDT 10/28/2024 12:26 PM CDT us Ryan Bailey MD LAB URINE ORDERABLES Final Resu lt Performing Organization Address City/[facility]/ZIP Co de Phone Number LAURIE ROSALES [address] Department of [employer] [place] [address] * (ABNORMAL) eGFR (10/28/2024 4:13 AM CDT) [...] Spencer NP LAB BLOOD ORDERABLES Final Result [facility] [address] Department [place] [address] * (ABNORMAL) Differential, auto (10/28/2024 4:13 AM CDT) Neutrophil abs 2.25 1.50 - 6.50 K/cumm Imm gran abs 0.01 0.00 - 0.10 K/cumm [facility] Lymphocyte abs 0.54(L) 0.80 - 3.30 K/cumm [facility] Monocyte abs 0.39 0.20 - 0.80 K/cumm [facility] Eosinophil abs 0.08 0.00 - 0.50 K/cumm [facility] Basophil abs 0.01 0.00 - 0.10 K/cumm [facility] Neutrophil pct 68.6 % [facility] Comment: Interpretive Data Percent [...] revised on 2017. Lymphocyte pct 16.5 % [facility] Comment: Interpretive Data Percent cell count [...] revised on 2017. Basophil pct 0.3 % [facility] Comment: Interpretive Data Percent cell count reference ranges are not reported, since discordance with absolute values may lead to misinterpretation of CBC data. Current Interpretive Data was last revised on 2017. Blood 10/28/2024 4:13 AM CDT 10/28/2024 4:26 AM CDT Namrata Spencer APARTMENT MANAGER LAB BLOOD ORDERABLES Final Result [facility] [address] Department [place] [address] * (ABNORMAL) CBC with auto differential (10/28/2024 4:13 AM CDT) WBC 3.28(L) 3.80 - 9.90 K/cumm Hgb 12.2(L) 13.0 - 17.5 g/dL [facility] Hct 36.0(L) 38.9 - 50.3 % [facility] Plt 115(L) 150 - 400 K/cumm [facility] MPV 11.9 9.1 - 12.3 fL [facility] RBC 3.95(L) 4.30 - 5.80 M/cumm [facility] MCV 91.1 81.3 - 96.4 fL [facility] MCH 30.9 27.1 - 33.3 pg [facility] MCHC 33.9 32.3 - 35.7 g/dL [facility] RDW CV 15.5(H) 11.1 - 14.9 % [facility] RDW SD 51.6(H) 35.7 - 48.1 fL [facility] NRBC abs 0.00 0.00 - 0.01 K/cumm [facility] Blood 10/28/2024 4:13 AM CDT 10/28/2024 4:26 AM CDT Namrata Spencer APARTMENT MANAGER LAB BLOOD ORDERABLES Final Result Performing Organization Address [facility] de Phone Number LAURIE ROSALES [phone] [place] [address] * (ABNORMAL) Protime-INR (10/28/2024 4:13 AM CDT) [facility] Signature PT 16.8(H) 9.7 - 13.0 sec INR 1.54(H) 0.90 - 1.20 [facility] Comment: Interpretive data Oral anticoagulant therapeutic ranges: Venous thromboembolism prophylaxis or treatment: 2.0-3.0 CARDIOLOGY Standard range: 2.0-3.0 High-intensity range: 2.5-3.5 Refer to indication-specific guidelines for appropriate target ranges for prosthetic heart valve replacement. Current interpretive data was last revised on 2019. Blood 10/28/2024 4:13 AM CDT 10/28/2024 4:25 AM CDT Luan Guillermo DO LAB BLOOD ORDERABLES Fay l Result Performing Organization Address City/[facility] Co de Phone Number LAURIE ROSALES [address] [place] [address] * (ABNORMAL) Osmolality, blood (10/28/2024 4:13 AM CDT) Pathologist [facility] Osmo 273(L) 275 - 300 mOsm/kg Comment:Testing performed by : [facility], [address] [facility], [place]., [address] Blood 10/28/2024 4:13 AM CDT 10/28/2024 2:34 PM CDT us Ryan Bailey MD LAB BLOOD ORDERABLES Final Resu lt Performing Organization Address City/[facility]/ZIP Co de Phone Number LAURIE ROSALES [address] Department of [employer] [place] [address] * Magnesium (10/28/2024 4:13 AM CDT) [facility] Magnesium 1.8 1.4 - 2.5 mg/dL Blood 10/28/2024 4:13 AM CDT 10/28/2024 4:24 AM CDT us Ryan Bailey MD LAB BLOOD ORDERABLES Final Resu lt Performing Organization Address City/[facility]/ZIP Co de Phone Number LAURIE BOBBY [address] [employer] [place] [address] * (ABNORMAL) Basic metabolic panel (10/28/2024 4:13 AM CDT) [facility] Sodium 127(L) 135 - 145 mmol/L Potassium, pl 3.9 3.3 - 4.9 mmol/L [facility] Chloride 88(L) 97 - 110 mmol/L [facility] CO2 37(H) 22 - 32 mmol/L [facility] Anion gap 2 2 - 15 mmol/L [facility] BUN 37(H) 6 - 25 mg/dL [facility] Creatinine 1.36(H) 0.80 - 1.30 mg/dL [facility] Comment:Icteric sample, test results may be affected. [...] LAB BLOOD ORDERABLES Final Result LAURIE ROSALES [address] Department [place] [address] * XR Chest 1 View (10/27/2024 11:28 [...] LAB BLOOD ORDERABLES Final Result LAURIE ROSALES [address] Department [place] [address] * (ABNORMAL) Differential, auto (10/27/2024 6:26 AM CDT) Neutrophil abs 2.10 1.50 - 6.50 K/cumm Imm gran abs 0.00 0.00 - 0.10 K/cumm LAURIE ROSALES Lymphocyte abs 0.55(L) 0.80 - 3.30 K/cumm [facility] Monocyte abs 0.35 0.20 - 0.80 K/cumm [facility] Eosinophil abs 0.09 0.00 - 0.50 K/cumm [facility] Basophil abs 0.02 0.00 - 0.10 K/cumm [facility] Neutrophil pct 67.5 % [facility] Comment: Interpretive Data Percent cell count reference ranges are not reported, since discordance with absolute values may lead to misinterpretation of CBC data. Current Interpretive Data was last revised on 2017. Imm gran pct 0.0 % [facility] Comment: Interpretive Data Percent cell count reference ranges are not reported, since discordance with absolute values may lead to misinterpretation of CBC data. Current Interpretive Data was last revised on 2017. Lymphocyte pct 17.7 % [facility] Comment: Interpretive Data Percent cell count reference ranges are not reported, since discordance with absolute values may lead to misinterpretation of CBC data. Current Interpretive Data was last revised on 2017. Monocyte pct 11.3 % [facility] Comment: Interpretive Data Percent cell count reference ranges are not reported, since discordance with absolute values may lead to misinterpretation of CBC data. Current Interpretive Data was last revised on 2017. Eosinophil pct 2.9 % [facility] Comment: Interpretive Data Percent cell count reference ranges are not reported, since discordance with absolute values may lead to misinterpretation of CBC data. Current Interpretive Data was last revised on 2017. Basophil pct 0.6 % [facility] Comment: Interpretive Data Percent cell count reference ranges are not reported, since discordance with absolute values may lead to misinterpretation of CBC data. Current Interpretive Data was last revised on 2017. Blood 10/27/2024 6:26 AM CDT 10/27/2024 6:47 AM CDT Namrata Spencer NP LAB BLOOD ORDERABLES Final Result LAURIE [address] Department [place] [address] * (ABNORMAL) CBC with auto differential (10/27/2024 6:26 AM CDT) WBC 3.11(L) 3.80 - 9.90 K/cumm Hgb 12.1(L) 13.0 - 17.5 g/dL [facility] Hct 36.1(L) 38.9 - 50.3 % [facility] Plt 99(L) 150 - 400 K/cumm [facility] MPV 12.3 9.1 - 12.3 fL [facility] RBC 3.92(L) 4.30 - 5.80 M/cumm [facility] MCV 92.1 81.3 - 96.4 fL [facility] MCH 30.9 27.1 - 33.3 pg [facility] MCHC 33.5 32.3 - 35.7 g/dL [facility] RDW CV 16.0(H) 11.1 - 14.9 % [facility] RDW SD 53.5(H) 35.7 - 48.1 fL [facility] NRBC abs 0.00 0.00 - 0.01 K/cumm [facility] Blood 10/27/2024 6:26 AM CDT 10/27/2024 6:47 AM CDT Namrata Spencer NP LAB BLOOD ORDERABLES Final Result LAURIE [address] Department [place] [address] * (ABNORMAL) Protime-INR (10/27/2024 6:26 AM CDT) PT 16.2(H) 9.7 - 13.0 sec INR 1.49(H) 0.90 - 1.20 [facility] Comment: Interpretive data Oral anticoagulant therapeutic ranges: Venous thromboembolism prophylaxis or treatment: 2.0-3.0 CARDIOLOGY Standard range: 2.0-3.0 High-intensity range: 2.5-3.5 Refer to indication-specific guidelines for appropriate target ranges for prosthetic heart valve replacement. Current interpretive data was last revised on 2019. Blood 10/27/2024 6:26 AM CDT 10/27/2024 6:46 AM CDT Luan Guillermo DO LAB BLOOD ORDERABLES Fay l Result LAURIE ROSALES [address] Department [place] [address] * (ABNORMAL) Basic metabolic panel (10/27/2024 6:26 AM CDT) Pathologist [facility] Sodium 127(L) 135 - 145 mmol/L Potassium, pl 3.6 3.3 - 4.9 mmol/L [facility] Chloride 87(L) 97 - 110 mmol/L [facility] CO2 36(H) 22 - 32 mmol/L [facility] Anion gap 4 2 - 15 mmol/L [facility] BUN 37(H) 6 - 25 mg/dL [facility] Creatinine 1.40(H) 0.80 - 1.30 mg/dL [facility] Glucose 95 70 - 199 mg/dL [facility] Comment: Interpretive Data Fasting glucose >/= 126 [...] 2022. Calcium 8.3(L) 8.5 - 10.3 mg/dL [facility] Blood 10/27/2024 6:26 AM CDT 10/27/2024 6:47 AM CDT Namrata Spencer APARTMENT MANAGER LAB BLOOD ORDERABLES Final Result Performing Organization Address City/[facility]/ZIP Co de Phone Number LAURIE ROSALES [address] Department [place] [address] * XR Chest 1 View (10/26/2024 11:06 [...] signed by: Coco Youngblood M.D. Nitesh Phillips APARTMENT MANAGER IMG XR PROCEDURES Final R esult * [...] Spencer NP LAB BLOOD ORDERABLES Final Result [facility] [address] Department of Laboratories [place], [place] [id number] * (ABNORMAL) Differential, auto (10/26/2024 6:28 AM CDT) Neutrophil abs 2.38 1.50 - 6.50 K/cumm Imm gran abs 0.01 0.00 - 0.10 K/cumm [facility] Lymphocyte abs 0.60(L) 0.80 - 3.30 K/cumm [facility] Monocyte abs 0.41 0.20 - 0.80 K/cumm [facility] Eosinophil abs 0.10 0.00 - 0.50 K/cumm [facility] Basophil abs 0.02 0.00 - 0.10 K/cumm [facility] Neutrophil pct 67.7 % [facility] Comment: Interpretive Data Percent cell count reference ranges are not reported, since discordance with absolute values may lead to misinterpretation of CBC data. Current Interpretive Data was last revised on 2017. Imm gran pct 0.3 % [facility] Comment: Interpretive Data Percent cell count reference ranges are not reported, since discordance with absolute values may lead to misinterpretation of CBC data. Current Interpretive Data was last revised on 2017. Lymphocyte pct 17.0 % [facility] Comment: Interpretive Data Percent cell count reference ranges are not reported, since discordance with absolute values may lead to misinterpretation of CBC data. Current Interpretive Data was last revised on 2017. Monocyte pct 11.6 % [facility] Comment: Interpretive Data Percent cell count reference ranges are not reported, since discordance with absolute values may lead to misinterpretation of CBC data. Current Interpretive Data was last revised on 2017. Eosinophil pct 2.8 % [facility] Comment: Interpretive Data Percent cell count reference ranges are not reported, since discordance with absolute values may lead to misinterpretation of CBC data. Current Interpretive Data was last revised on 2017. Basophil pct 0.6 % [facility] Comment: Interpretive Data Percent cell count reference ranges are not reported, since discordance with absolute values may lead to misinterpretation of CBC data. Current Interpretive Data was last revised on 2017. Blood 10/26/2024 6:28 AM CDT 10/26/2024 6:44 AM CDT Namrata Spencer NP LAB BLOOD ORDERABLES Final Result Performing Organization Address [facility] Co de Phone Number LAURIE ROSALES [address] Department [place] [address] * (ABNORMAL) Thyroid Function [place] (10/26/2024 6:28 AM CDT) TSH 6.60(H) 0.30 - 4.20 mcIUnit/mL Blood 10/26/2024 6:28 AM CDT 10/26/2024 6:44 AM CDT Donte Camacho MD LAB BLOOD ORDERABLES Final Result Performing Organization Address City/[facility] Co de Phone Number [facility] [address] Department of [employer] [place] [address] * (ABNORMAL) CBC with auto differential (10/26/2024 6:28 AM CDT) WBC 3.52(L) 3.80 - 9.90 K/cumm Hgb 12.0(L) 13.0 - 17.5 g/dL [facility] Hct 35.9(L) 38.9 - 50.3 % [facility] Plt 94(L) 150 - 400 K/cumm [facility] MPV 11.3 9.1 - 12.3 fL [facility] RBC 3.91(L) 4.30 - 5.80 M/cumm [facility] MCV 91.8 81.3 - 96.4 fL [facility] MCH 30.7 27.1 - 33.3 pg [facility] MCHC 33.4 32.3 - 35.7 g/dL [facility] RDW CV 16.2(H) 11.1 - 14.9 % [facility] RDW SD 54.3(H) 35.7 - 48.1 fL [facility] NRBC abs 0.00 0.00 - 0.01 K/cumm [facility] Blood 10/26/2024 6:28 AM CDT 10/26/2024 6:44 AM CDT Namrata Spencer APARTMENT MANAGER LAB BLOOD ORDERABLES Final Result Performing Organization Address [facility] Co de Phone Number [facility] [address] [place] [id number] * (ABNORMAL) Protime-INR (10/26/2024 6:28 AM CDT) PT 16.9(H) 9.7 - 13.0 sec INR 1.55(H) 0.90 - 1.20 [facility] Comment: Interpretive data Oral anticoagulant therapeutic ranges: Venous thromboembolism prophylaxis or treatment: 2.0-3.0 CARDIOLOGY Standard range: 2.0-3.0 High-intensity range: 2.5-3.5 Refer to indication-specific guidelines for appropriate target ranges for prosthetic heart valve replacement. Current interpretive data was last revised on 2019. Blood 10/26/2024 6:28 AM CDT 10/26/2024 6:44 AM CDT Luan Guillermo DO LAB BLOOD ORDERABLES Fay l Result Performing Organization Address City/[facility]/ZIP Co de Phone Number [facility] [address] [facility] [employer] [place], [place] [id number] * T4, free (10/26/2024 6:28 AM CDT) Pathologist [facility] Free T4 1.43 0.90 - 1.70 ng/dL Blood 10/26/2024 6:28 AM CDT 10/26/2024 6:44 AM CDT Donte Camacho MD LAB BLOOD ORDERABLES Final Result Performing Organization Address [facility] de Phone Number LAURIE ROSALES [address] [facility] [employer] [place] [address] * Cortisol (10/26/2024 6:28 AM CDT) Pathologist [facility] Cortisol 15.8 4.8 - 19.5 mcg/dl Comment: Interpretive Data Normal Range: 4.8 - 19.5 mcg/dL; Evening: Half of morning value. This analyte undergoes marked diurnal variation. Ranges indicated apply to morning specimens. Current interpretive data was last revised 2018. Blood 10/26/2024 6:28 AM CDT 10/26/2024 6:44 AM CDT Donte Camacho MD LAB BLOOD ORDERABLES Final Result Performing Organization Address [facility] Phone Number LAURIE ROSALES [address] [facility] [employer] [place] [address] * (ABNORMAL) Basic metabolic panel (10/26/2024 6:28 AM CDT) Pathologist [facility] Sodium 129(L) 135 - 145 mmol/L Potassium, pl 3.9 3.3 - 4.9 mmol/L [facility] Chloride 89(L) 97 - 110 mmol/L [facility] CO2 33(H) 22 - 32 mmol/L [facility] Anion gap 7 2 - 15 mmol/L [facility] BUN 43(H) 6 - 25 mg/dL [facility] Creatinine 1.65(H) 0.80 - 1.30 mg/dL [facility] Glucose 94 70 - 199 mg/dL [facility] Comment: Interpretive Data Fasting glucose >/= 126 [...] LAB BLOOD ORDERABLES Final Result BRYNYEE ROSALES [address] Department [place] [address] * (ABNORMAL) eGFR (10/25/2024 6:58 AM CDT) [...] CDT 10/25/2024 7:21 AM CDT us Namrata Dasilva Johanna [place] LAB BLOOD ORDERABLES Final Result [facility] [address] [facility] Department [place] [address] * (ABNORMAL) Differential, auto (10/25/2024 6:58 AM CDT) Neutrophil abs 2.57 1.50 - 6.50 K/cumm Imm gran abs 0.01 0.00 - 0.10 K/cumm [facility] Lymphocyte abs 0.46(L) 0.80 - 3.30 K/cumm [facility] Monocyte abs 0.39 0.20 - 0.80 K/cumm [facility] Eosinophil abs 0.09 0.00 - 0.50 K/cumm [facility] Basophil abs 0.02 0.00 - 0.10 K/cumm [facility] Neutrophil pct 72.6 % [facility] Comment: Interpretive Data Percent cell count reference ranges are not reported, since discordance with absolute values may lead to misinterpretation of CBC data. Current Interpretive Data was last revised on 2017. Imm gran pct 0.3 % [facility] Comment: Interpretive Data Percent cell count reference ranges are not reported, since discordance with absolute values may lead to misinterpretation of CBC data. Current Interpretive Data was last revised on 2017. Lymphocyte pct 13.0 % [facility] Comment: Interpretive Data Percent cell count reference ranges are not reported, since discordance with absolute values may lead to misinterpretation of CBC data. Current Interpretive Data was last revised on 2017. Monocyte pct 11.0 % [facility] Comment: Interpretive Data Percent cell count reference ranges are not reported, since discordance with absolute values may lead to misinterpretation of CBC data. Current Interpretive Data was last revised on 2017. Eosinophil pct 2.5 % [facility] Comment: Interpretive Data Percent cell count reference ranges are not reported, since discordance with absolute values may lead to misinterpretation of CBC data. Current Interpretive Data was last revised on 2017. Basophil pct 0.6 % [facility] Comment: Interpretive Data Percent cell count reference ranges are not reported, since discordance with absolute values may lead to misinterpretation of CBC data. Current Interpretive Data was last revised on 2017. Blood 10/25/2024 6:58 AM CDT 10/25/2024 7:21 AM CDT Namrata Spencer NP LAB BLOOD ORDERABLES Final Result LAURIE [address] Department [place] [address] * (ABNORMAL) CBC with auto differential (10/25/2024 6:58 AM CDT) WBC 3.54(L) 3.80 - 9.90 K/cumm Hgb 12.9(L) 13.0 - 17.5 g/dL [facility] Hct 38.5(L) 38.9 - 50.3 % [facility] Plt 91(L) 150 - 400 K/cumm [facility] MPV 11.6 9.1 - 12.3 fL [facility] RBC 4.15(L) 4.30 - 5.80 M/cumm [facility] MCV 92.8 81.3 - 96.4 fL [facility] MCH 31.1 27.1 - 33.3 pg [facility] MCHC 33.5 32.3 - 35.7 g/dL [facility] RDW CV 16.2(H) 11.1 - 14.9 % [facility] RDW SD 54.5(H) 35.7 - 48.1 fL [facility] NRBC abs 0.00 0.00 - 0.01 K/cumm [facility] Blood 10/25/2024 6:58 AM CDT 10/25/2024 7:21 AM CDT Namrata Spencer NP LAB BLOOD ORDERABLES Final Result LAURIE [address] Department of [employer] [place] [address] * (ABNORMAL) Protime-INR (10/25/2024 6:58 AM CDT) PT 18.0(H) 9.7 - 13.0 sec INR 1.65(H) 0.90 - 1.20 [facility] Comment: Interpretive data Oral anticoagulant therapeutic ranges: Venous thromboembolism prophylaxis or treatment: 2.0-3.0 CARDIOLOGY Standard range: 2.0-3.0 High-intensity range: 2.5-3.5 Refer to indication-specific guidelines for appropriate target ranges for prosthetic heart valve replacement. Current interpretive data was last revised on 2019. Blood 10/25/2024 6:58 AM CDT 10/25/2024 7:20 AM CDT Luan Guillermo DO LAB BLOOD ORDERABLES Fay l Result [facility] [address] Department [place] [address] * (ABNORMAL) Basic metabolic panel (10/25/2024 6:58 AM CDT) Sodium 134(L) 135 - 145 mmol/L Potassium, pl 3.8 3.3 - 4.9 mmol/L [facility] Chloride 93(L) 97 - 110 mmol/L [facility] CO2 34(H) 22 - 32 mmol/L [facility] Anion gap 7 2 - 15 mmol/L [facility] BUN 46(H) 6 - 25 mg/dL [facility] Creatinine 1.70(H) 0.80 - 1.30 mg/dL [facility] Glucose 102 70 - 199 mg/dL [facility] Comment: Interpretive Data Fasting glucose >/= 126 [...] 2022. Calcium 8.6 8.5 - 10.3 mg/dL LAURIE ROSALES Blood 10/25/2024 6:58 AM CDT 10/25/2024 7:21 AM CDT Namratagregg Dasilva Johanna [place] LAB BLOOD ORDERABLES Final Result LAURIE [address] Department [place] [address] * XR Chest 1 Vw Portable (10/24/2024 [...] Spencer NP LAB BLOOD ORDERABLES Final Result [facility] [address] Department [place] [address] * (ABNORMAL) Differential, auto (10/24/2024 4:15 AM CDT) Neutrophil abs 2.69 1.50 - 6.50 K/cumm Imm gran abs 0.01 0.00 - 0.10 K/cumm [facility] Lymphocyte abs 0.56(L) 0.80 - 3.30 K/cumm [facility] Monocyte abs 0.42 0.20 - 0.80 K/cumm [facility] Eosinophil abs 0.11 0.00 - 0.50 K/cumm [facility] Basophil abs 0.02 0.00 - 0.10 K/cumm [facility] Neutrophil pct 70.6 % [facility] Comment: Interpretive Data Percent cell count reference ranges are not reported, since discordance with absolute values may lead to misinterpretation of CBC data. Current Interpretive Data was last revised on 2017. Imm gran pct 0.3 % [facility] Comment: Interpretive Data Percent cell count reference ranges are not reported, since discordance with absolute values may lead to misinterpretation of CBC data. Current Interpretive Data was last revised on 2017. Lymphocyte pct 14.7 % [facility] Comment: Interpretive Data Percent cell count reference ranges are not reported, since discordance with absolute values may lead to misinterpretation of CBC data. Current Interpretive Data was last revised on 2017. Monocyte pct 11.0 % [facility] Comment: Interpretive Data Percent cell count reference ranges are not reported, since discordance with absolute values may lead to misinterpretation of CBC data. Current Interpretive Data was last revised on 2017. Eosinophil pct 2.9 % [facility] Comment: Interpretive Data Percent cell count reference ranges are not reported, since discordance with absolute values may lead to misinterpretation of CBC data. Current Interpretive Data was last revised on 2017. Basophil pct 0.5 % [facility] Comment: Interpretive Data Percent cell count reference ranges are not reported, since discordance with absolute values may lead to misinterpretation of CBC data. Current Interpretive Data was last revised on 2017. Blood 10/24/2024 4:15 AM CDT 10/24/2024 4:39 AM CDT Namrata Spencer NP LAB BLOOD ORDERABLES Final Result [facility] [address] Department [place] [address] * (ABNORMAL) CBC with auto differential (10/24/2024 4:15 AM CDT) WBC 3.81 3.80 - 9.90 K/cumm Hgb 12.8(L) 13.0 - 17.5 g/dL [facility] Hct 38.2(L) 38.9 - 50.3 % [facility] Plt 81(L) 150 - 400 K/cumm [facility] MPV 12.3 9.1 - 12.3 fL [facility] RBC 4.08(L) 4.30 - 5.80 M/cumm [facility] MCV 93.6 81.3 - 96.4 fL [facility] MCH 31.4 27.1 - 33.3 pg [facility] MCHC 33.5 32.3 - 35.7 g/dL [facility] RDW CV 16.3(H) 11.1 - 14.9 % [facility] RDW SD 55.5(H) 35.7 - 48.1 fL [facility] NRBC abs 0.00 0.00 - 0.01 K/cumm [facility] Blood 10/24/2024 4:15 AM CDT 10/24/2024 4:39 AM CDT Namrata Spencer APARTMENT MANAGER LAB BLOOD ORDERABLES Final Result Performing Organization Address [facility] de Phone Number LAURIE [address] [place] [address] * (ABNORMAL) Protime-INR (10/24/2024 4:15 AM CDT) PT 20.5(H) 9.7 - 13.0 sec INR 1.87(H) 0.90 - 1.20 [facility] Comment: Interpretive data Oral anticoagulant therapeutic ranges: Venous thromboembolism prophylaxis or treatment: 2.0-3.0 CARDIOLOGY Standard range: 2.0-3.0 High-intensity range: 2.5-3.5 Refer to indication-specific guidelines for appropriate target ranges for prosthetic heart valve replacement. Current interpretive data was last revised on 2019. Blood 10/24/2024 4:15 AM CDT 10/24/2024 4:39 AM CDT Luan Guillermo DO LAB BLOOD ORDERABLES Fay l Result Performing Organization Address [facility] Co de Phone Number [facility] [address] [place] [address] * (ABNORMAL) Basic metabolic panel (10/24/2024 4:15 AM CDT) Sodium 132(L) 135 - 145 mmol/L Potassium, pl 4.2 3.3 - 4.9 mmol/L [facility] Chloride 91(L) 97 - 110 mmol/L [facility] CO2 32 22 - 32 mmol/L [facility] Anion gap 9 2 - 15 mmol/L [facility] BUN 46(H) 6 - 25 mg/dL [facility] Creatinine 1.90(H) 0.80 - 1.30 mg/dL [facility] Comment:Icteric sample, test results may be affected. Glucose 96 70 - 199 mg/dL [facility] Comment: Interpretive Data Fasting glucose >/= 126 [...] 2022. Calcium 8.4(L) 8.5 - 10.3 mg/dL [facility] Blood 10/24/2024 4:1 5 AM CDT 10/24/2024 4:38 AM CDT Namrata Spencer NP LAB BLOOD ORDERABLES Final Result [facility] [address] Department [place] [address] * XR Chest 1 Vw Portable (10/23/2024 [...] CDT 10/23/2024 3:52 AM CDT Namrata Spencer APARTMENT MANAGER LAB BLOOD ORDERABLES Final Result [facility] [address] Department [place] [address] * (ABNORMAL) Differential, auto (10/23/2024 3:35 AM CDT) Neutrophil abs 4.54 1.50 - 6.50 K/cumm Imm gran abs 0.02 0.00 - 0.10 K/cumm [facility] Lymphocyte abs 0.51(L) 0.80 - 3.30 K/cumm [facility] Monocyte abs 0.66 0.20 - 0.80 K/cumm [facility] Eosinophil abs 0.08 0.00 - 0.50 K/cumm [facility] Basophil abs 0.01 0.00 - 0.10 K/cumm [facility] Neutrophil pct 78.0 % [facility] Comment: Interpretive Data Percent cell count reference ranges are not reported, since discordance with absolute values may lead to misinterpretation of CBC data. Current Interpretive Data was last revised on 2017. Imm gran pct 0.3 % [facility] Comment: Interpretive Data Percent cell count [...] revised on 2017. Monocyte pct 11.3 % [facility] Comment: Interpretive Data Percent cell count [...] 10/23/2024 3:52 AM CDT Namrata Vidya Spencer NP LAB BLOOD ORDERABLES Final Result Performing Organization Address City/[facility]/ZIP Co de Phone Number LAURIE [address] Department of [employer] [place] [address] * (ABNORMAL) CBC with auto differential (10/23/2024 3:35 AM CDT) WBC 5.82 3.80 - 9.90 K/cumm Hgb 13.8 13.0 - 17.5 g/dL [facility] Hct 41.6 38.9 - 50.3 % [facility] Plt 87(L) 150 - 400 K/cumm [facility] MPV 11.7 9.1 - 12.3 fL [facility] RBC 4.44 4.30 - 5.80 M/cumm [facility] MCV 93.7 81.3 - 96.4 fL [facility] MCH 31.1 27.1 - 33.3 pg [facility] MCHC 33.2 32.3 - 35.7 g/dL [facility] RDW CV 16.7(H) 11.1 - 14.9 % [facility] RDW SD 56.9(H) 35.7 - 48.1 fL [facility] NRBC abs 0.00 0.00 - 0.01 K/cumm [facility] Blood 10/23/2024 3:35 AM CDT 10/23/2024 3:52 AM CDT Namrata Spencer NP LAB BLOOD ORDERABLES Final Result Performing Organization Address City/[facility]/ZIP Co de Phone Number LAURIE [address] Department of [employer] [place] [address] * (ABNORMAL) Protime-INR (10/23/2024 3:35 AM CDT) PT 30.3(H) 9.7 - 13.0 sec INR 2.75(H) 0.90 - 1.20 [facility] Comment: Interpretive data Oral anticoagulant therapeutic ranges: Venous thromboembolism prophylaxis or treatment: 2.0-3.0 CARDIOLOGY Standard range: 2.0-3.0 High-intensity range: 2.5-3.5 Refer to indication-specific guidelines for appropriate target ranges for prosthetic heart valve replacement. Current interpretive data was last revised on 2019. Blood 10/23/2024 3:35 AM CDT 10/23/2024 3:52 AM CDT us Luan Guillermo DO LAB BLOOD ORDERABLES Fay l Result [facility] [address] Department [place] [address] * (ABNORMAL) Basic metabolic panel (10/23/2024 3:35 AM CDT) Sodium 137 135 - 145 mmol/L Potassium, pl 4.1 3.3 - 4.9 mmol/L [facility] Chloride 97 97 - 110 mmol/L [facility] CO2 33(H) 22 - 32 mmol/L [facility] Anion gap 7 2 - 15 mmol/L [facility] BUN 44(H) 6 - 25 mg/dL [facility] Creatinine 1.70(H) 0.80 - 1.30 mg/dL [facility] Glucose 100 70 - 199 mg/dL [facility] Comment: Interpretive Data Fasting glucose >/= 126 [...] 2022. Calcium 8.8 8.5 - 10.3 mg/dL [facility] Blood 10/23/2024 3:35 AM CDT 10/23/2024 3:52 AM CDT Namrata Lewismercy APARTMENT MANAGER LAB BLOOD ORDERABLES Final Result LAURIE ROSALES [address] Department of [employer] [place], [place] [id number] * (ABNORMAL) eGFR (10/22/2024 3:54 AM CDT) [...] AM CDT 10/22/2024 4:24 AM CDT Namrata Lewismercy APARTMENT MANAGER LAB BLOOD ORDERABLES Final Result LAURIE ROSALES [address] Department [place] [address] * (ABNORMAL) Differential, auto (10/22/2024 3:54 AM CDT) Neutrophil abs 4.61 1.50 - 6.50 K/cumm Imm gran abs 0.01 0.00 - 0.10 K/cumm [facility] Lymphocyte abs 0.52(L) 0.80 - 3.30 K/cumm [facility] Monocyte abs 0.58 0.20 - 0.80 K/cumm [facility] Eosinophil abs 0.05 0.00 - 0.50 K/cumm [facility] Basophil abs 0.02 0.00 - 0.10 K/cumm [facility] Neutrophil pct 79.6 % [facility] Comment: Interpretive Data Percent cell count reference ranges are not reported, since discordance with absolute values may lead to misinterpretation of CBC data. Current Interpretive Data was last revised on 2017. Imm gran pct 0.2 % [facility] Comment: Interpretive Data Percent cell count reference ranges are not reported, since discordance with absolute values may lead to misinterpretation of CBC data. Current Interpretive Data was last revised on 2017. Lymphocyte pct 9.0 % [facility] Comment: Interpretive Data Percent cell count reference ranges are not reported, since discordance with absolute values may lead to misinterpretation of CBC data. Current Interpretive Data was last revised on 2017. Monocyte pct 10.0 % [facility] Comment: Interpretive Data Percent cell count reference ranges are not reported, since discordance with absolute values may lead to misinterpretation of CBC data. Current Interpretive Data was last revised on 2017. Eosinophil pct 0.9 % [facility] Comment: Interpretive Data Percent cell count reference ranges are not reported, since discordance with absolute values may lead to misinterpretation of CBC data. Current Interpretive Data was last revised on 2017. Basophil pct 0.3 % [facility] Comment: Interpretive Data Percent cell count reference ranges are not reported, since discordance with absolute values may lead to misinterpretation of CBC data. Current Interpretive Data was last revised on 2017. Blood 10/22/2024 3:54 AM CDT 10/22/2024 4:23 AM CDT Namrata Spencer NP LAB BLOOD ORDERABLES Final Result LAURIE [address] Department [place] [address] * (ABNORMAL) CBC with auto differential (10/22/2024 3:54 AM CDT) Pathologist [facility] WBC 5.79 3.80 - 9.90 K/cumm Hgb 13.8 13.0 - 17.5 g/dL [facility] Hct 42.0 38.9 - 50.3 % [facility] Plt 104(L) 150 - 400 K/cumm [facility] MPV 12.3 9.1 - 12.3 fL [facility] RBC 4.46 4.30 - 5.80 M/cumm [facility] MCV 94.2 81.3 - 96.4 fL [facility] MCH 30.9 27.1 - 33.3 pg [facility] MCHC 32.9 32.3 - 35.7 g/dL [facility] RDW CV 16.7(H) 11.1 - 14.9 % [facility] RDW SD 57.1(H) 35.7 - 48.1 fL [facility] NRBC abs 0.00 0.00 - 0.01 K/cumm [facility] Blood 10/22/2024 3:54 AM CDT 10/22/2024 4:23 AM CDT Namrata Spencer NP LAB BLOOD ORDERABLES Final Result [facility] [address] Department [place] [address] * (ABNORMAL) Protime-INR (10/22/2024 3:54 AM CDT) Pathologist [facility] PT 28.2(H) 9.7 - 13.0 sec INR 2.56(H) 0.90 - 1.20 [facility] Comment: Interpretive data Oral anticoagulant therapeutic ranges: Venous thromboembolism prophylaxis or treatment: 2.0-3.0 CARDIOLOGY Standard range: 2.0-3.0 High-intensity range: 2.5-3.5 Refer to indication-specific guidelines for appropriate target ranges for prosthetic heart valve replacement. Current interpretive data was last revised on 2019. Blood 10/22/2024 3:54 AM CDT 10/22/2024 4:23 AM CDT Namrata Jimenezdejon Spencer LAB BLOOD ORDERABLES Final Result Performing Organization Address City/[facility]/ZIP Co de Phone Number LAURIE ROSALES [address] [facility] [employer] [place] [address] * Magnesium (10/22/2024 3:54 AM CDT) Pathologist [facility] Magnesium 2.1 1.4 - 2.5 mg/dL Blood 10/22/2024 3:54 AM CDT 10/22/2024 4:24 AM CDT Namrata Huffmandejon LAB BLOOD ORDERABLES Final Result Performing Organization Address [facility] de Phone Number LAURIE ROSALES [address] [employer] [place] [address] * (ABNORMAL) Basic metabolic panel (10/22/2024 3:54 AM CDT) Pathologist [facility] Sodium 134(L) 135 - 145 mmol/L Potassium, pl 4.3 3.3 - 4.9 mmol/L [facility] Chloride 95(L) 97 - 110 mmol/L [facility] CO2 33(H) 22 - 32 mmol/L [facility] Anion gap 6 2 - 15 mmol/L [facility] BUN 47(H) 6 - 25 mg/dL [facility] Creatinine 1.99(H) 0.80 - 1.30 mg/dL [facility] Comment:Icteric sample, test results may be affected. Glucose 101 70 - 199 mg/dL [facility] Comment: Interpretive Data Fasting glucose >/= 126 [...] Calcium 8.8 8.5 - 10.3 mg/dL LAURIE BOBBY Blood 10/22/2024 3:54 AM CDT 10/22/2024 4:24 AM CDT Namrata Spencer ZACHERY LAB BLOOD ORDERABLES Final Result LAURIE ROSALES [address] Department [place] [address] * CT Abdomen Pelvis WO Contrast (10/21/2024 [...] by: Neel Morrison M.D. Delvin Mendenhall MD IM CT PROCEDURES Final Result * (ABNORMAL) eGFR [...] Spencer NP LAB BLOOD ORDERABLES Final Result [facility] [address] Department [place] [address] * (ABNORMAL) Differential, auto (10/21/2024 5:17 AM CDT) Neutrophil abs 3.63 1.50 - 6.50 K/cumm Imm gran abs 0.01 0.00 - 0.10 K/cumm [facility] Lymphocyte abs 0.62(L) 0.80 - 3.30 K/cumm [facility] Monocyte abs 0.51 0.20 - 0.80 K/cumm [facility] Eosinophil abs 0.05 0.00 - 0.50 K/cumm [facility] Basophil abs 0.03 0.00 - 0.10 K/cumm [facility] Neutrophil pct 74.9 % [facility] Comment: Interpretive Data Percent cell count reference ranges are not reported, since discordance with absolute values may lead to misinterpretation of CBC data. Current Interpretive Data was last revised on 2017. Imm gran pct 0.2 % [facility] Comment: Interpretive Data Percent cell count reference ranges are not reported, since discordance with absolute values may lead to misinterpretation of CBC data. Current Interpretive Data was last revised on 2017. Lymphocyte pct 12.8 % [facility] Comment: Interpretive Data Percent cell count reference ranges are not reported, since discordance with absolute values may lead to misinterpretation of CBC data. Current Interpretive Data was last revised on 2017. Monocyte pct 10.5 % [facility] Comment: Interpretive Data Percent cell count reference ranges are not reported, since discordance with absolute values may lead to misinterpretation of CBC data. Current Interpretive Data was last revised on 2017. Eosinophil pct 1.0 % [facility] Comment: Interpretive Data Percent cell count reference [...] Spencer NP LAB BLOOD ORDERABLES Final Result [facility] [address] Department [place] [address] * (ABNORMAL) CBC with auto differential (10/21/2024 5:17 AM CDT) WBC 4.85 3.80 - 9.90 K/cumm Hgb 14.6 13.0 - 17.5 g/dL [facility] Hct 45.1 38.9 - 50.3 % [facility] Plt 108(L) 150 - 400 K/cumm [facility] MPV 11.2 9.1 - 12.3 fL [facility] SYSTEMS RBC 4.73 4.30 - 5.80 M/cumm [facility] MCV 95.3 81.3 - 96.4 fL [facility] MCH 30.9 27.1 - 33.3 pg [facility] MCHC 32.4 32.3 - 35.7 g/dL [facility] RDW CV 16.8(H) 11.1 - 14.9 % [facility] RDW SD 58.7(H) 35.7 - 48.1 fL [facility] NRBC abs 0.00 0.00 - 0.01 K/cumm [facility] Blood 10/21/2024 5:17 AM CDT 10/21/2024 6:10 AM CDT Namrata Vidya Spencer APARTMENT MANAGER LAB BLOOD ORDERABLES Final Result LAURIE ROSALES [address] Department [place] [address] * (ABNORMAL) Protime-INR (10/21/2024 5:17 AM CDT) Pathologist [facility] PT 25.7(H) 9.7 - 13.0 sec INR [...] CDT 10/21/2024 6:09 AM CDT Namratamely Spencer APARTMENT MANAGER LAB BLOOD ORDERABLES Final Result LAURIE ROSALES [address] [facility] [place] [address] * Magnesium (10/21/2024 5:17 AM CDT) [facility] Magnesium 2.1 1.4 - 2.5 mg/dL Blood 10/21/2024 5:17 AM CDT 10/21/2024 6:09 AM CDT Namrata Vidya Spencer APARTMENT MANAGER LAB BLOOD ORDERABLES Final Result LAURIE ROSALES [address] [facility] [place] [address] * (ABNORMAL) Basic metabolic panel (10/21/2024 5:17 [...] CH Glucose 94 70 - 199 mg/dL [facility] Comment: Interpretive Data Fasting glucose >/= 126 [...] 2022. Calcium 8.8 8.5 - 10.3 mg/dL [facility] Blood 10/21/2024 5:17 AM CDT 10/21/2024 6:09 AM CDT Namrata Spencer NP LAB BLOOD ORDERABLES Final Result Performing Organization Address City/State/[facility] Co de Phone Number [address] Department of Laboratories [place] [phone] * TRANSTHORACIC ECHO (TTE) COMPLETE W DOPPLER/CF W CONTRAST (10/20/2024 1:23 PM CDT) [facility] EF Mod BP 37 % CONS SCIMAGE Anatomical Region Laterality Modality Ultrasound 10/20/2024 12:1 1 PM CDT Narrative 10/21/2024 6:43 AM CDT [place] [id number] Echocardiogram Report Patient Name: BELLOIANRoxann : 1940 Study Date: 10/20/2024 12:11:53 PM Gender: M Tech: Location: [id number] Ref Provider: CARLA JEAN Height(Cm): 170 BSA: [...] of hemodynamically significant aortic stenosis by Doppler. Lnombafg-go-zzluxx pulmonary hypertension, estimated RVSP 60 mmHg. Moderate tricuspid regurgitation. Electronically Signed By: Clive Godfrey MD, [facility] 10/21/2024 6:43:00 AM CDT Procedure Note Clive Godfrey MD - 10/21/2024 [place] [address] Echocardiogram Report Patient Name: IAN MONSALVE H : 1940 Study Date: 10/20/2024 12:11:53 PM Gender: M Tech: Location: [id number] [facility] Provider: CARLA JEAN Height(Cm): 170 BSA: 1.93 [...] evidence of hemodynamicallysignificant aortic stenosis by Doppler. Bxeqxtdi-tt-uhbvyy pulmonary hypertension, estimated RVSP 60 mmHg.Moderate tricuspid regurgitation. Electronically Signed By: Clive Godfrey MD, [facility] 10/21/2024 6:43:00 AM CDT us Carla Jean [...] Spencer NP LAB BLOOD ORDERABLES Final Result [facility] [id number] Department [place] [address] * (ABNORMAL) Differential, auto (10/20/2024 6:38 AM CDT) Neutrophil abs 3.55 1.50 - 6.50 K/cumm Imm gran abs 0.01 0.00 - 0.10 K/cumm [facility] Lymphocyte abs 0.72(L) 0.80 - 3.30 K/cumm [facility] Monocyte abs 0.61 0.20 - 0.80 K/cumm [facility] Eosinophil abs 0.03 0.00 - 0.50 K/cumm [facility] Basophil abs 0.02 0.00 - 0.10 K/cumm [facility] Neutrophil pct 71.9 % [facility] Comment: Interpretive Data Percent cell count reference ranges are not reported, since discordance with absolute values may lead to misinterpretation of CBC data. Current Interpretive Data was last revised on 2017. Imm gran pct 0.2 % [facility] Comment: Interpretive Data Percent cell count reference ranges are not reported, since discordance with absolute values may lead to misinterpretation of CBC data. Current Interpretive Data was last revised on 2017. Lymphocyte pct 14.6 % [facility] Comment: Interpretive Data Percent cell count reference ranges are not reported, since discordance with absolute values may lead to misinterpretation of CBC data. Current Interpretive Data was last revised on 2017. Monocyte pct 12.3 % [facility] Comment: Interpretive Data Percent cell count reference ranges are not reported, since discordance with absolute values may lead to misinterpretation of CBC data. Current Interpretive Data was last revised on 2017. Eosinophil pct 0.6 % [facility] Comment: Interpretive Data Percent cell count reference ranges are not reported, since discordance with absolute values may lead to misinterpretation of CBC data. Current Interpretive Data was last revised on 2017. Basophil pct 0.4 % [facility] Comment: Interpretive Data Percent cell count reference ranges are not reported, since discordance with absolute values may lead to misinterpretation of CBC data. Current Interpretive Data was last revised on 2017. Blood 10/20/2024 6:38 AM CDT 10/20/2024 6:43 AM CDT Namrata Spencer NP LAB BLOOD ORDERABLES Final Result LAURIE [address] [facility] [place] [address] * (ABNORMAL) CBC with auto differential (10/20/2024 6:38 AM CDT) WBC 4.94 3.80 - 9.90 K/cumm Hgb 14.2 13.0 - 17.5 g/dL [facility] Hct 43.3 38.9 - 50.3 % [facility] Plt 106(L) 150 - 400 K/cumm [facility] MPV 11.0 9.1 - 12.3 fL [facility] RBC 4.58 4.30 - 5.80 M/cumm [facility] MCV 94.5 81.3 - 96.4 fL [facility] MCH 31.0 27.1 - 33.3 pg [facility] MCHC 32.8 32.3 - 35.7 g/dL [facility] RDW CV 16.8(H) 11.1 - 14.9 % [facility] RDW SD 58.4(H) 35.7 - 48.1 fL [facility] NRBC abs 0.00 0.00 - 0.01 K/cumm [facility] Blood 10/20/2024 6:38 AM CDT 10/20/2024 6:43 AM CDT Namrata Spencer NP LAB BLOOD ORDERABLES Final Result Performing Organization Address City/[facility]/ZIP Co de Phone Number LAURIE ROSALES [address] [place] [address] * (ABNORMAL) Protime-INR (10/20/2024 6:38 AM CDT) Pathologist [facility] PT 34.5(H) 9.7 - 13.0 sec INR [...] BLOOD ORDERABLES Final Result Performing Organization Address [facility] de Phone Number [facility] [address] [place] [address] * Magnesium (10/20/2024 6:38 AM CDT) [facility] Magnesium 2.0 1.4 - 2.5 mg/dL Blood 10/20/2024 6:38 AM CDT 10/20/2024 6:42 AM CDT [facility] LAB BLOOD ORDERABLES Final Result Performing Organization Address [facility] de Phone Number LAURIE [address] [place] [address] * Digoxin level (10/20/2024 6:38 AM CDT) [facility] Digoxin 0.8 0.5 - 1.2 ng/mL Comment: [...] LAB BLOOD ORDERABLES Final Re sult LAURIE [address] [place] [address] * (ABNORMAL) Basic metabolic panel (10/20/2024 6:38 AM CDT) Sodium 133(L) 135 - 145 mmol/L Potassium, pl 4.4 3.3 - 4.9 mmol/L [facility] Chloride 96(L) 97 - 110 mmol/L [facility] CH CO2 30 22 - 32 mmol/L [facility] Anion gap 10 2 - 15 mmol/L [facility] BUN 46(H) 6 - 25 mg/dL [facility] Creatinine 2.43(H) 0.80 - 1.30 mg/dL [facility] Glucose 106 70 - 199 mg/dL [facility] Comment: Interpretive Data Fasting glucose >/= 126 [...] 2022. Calcium 8.8 8.5 - 10.3 mg/dL [facility] Blood 10/20/2024 6:38 AM CDT 10/20/2024 6:42 AM CDT us Namrata Spencer NP LAB BLOOD ORDERABLES Final Result Performing Organization Address City/[facility]/ZIP Co de Phone Number LAURIE ROSALES [address] [place] [address] * US Retroperitoneal Complete (10/19/2024 3:09 PM [...] tendency for uric acid stone formation. Source: [facility] Current Interpretive Data was last revised on [...] - GENERAL ORD ERABLES Final Result LAURIE [address] Department [place] [address] * Strep pneumoniae antigen, urine [...] RAL ORDERABLES Final Result Performing Organization Address [facility] de Phone Number LAURIE ROSALES [address] [place] [address] * Protein / creatinine ratio, urine, random (10/19/2024 12:33 PM CDT) Protein, ur, quant 5.8 mg/dL Comment: Interpretive Data No reference range established. Current interpretive data was last revised 2018. Creatinine Ur 46.3 mg/dL LAURIE Comment: Interpretive Data No reference range established. Current interpretive data was last revised 2018. Protein/creatinin e ratio 125.3 0.0 - 180.0 mg/g CR LAURIE Urine 10/19/2024 12:3 3 PM CDT 10/19/2024 12:39 PM CDT Delvin Mendenhall MD LAB URINE ORDERABLES Final Res ult Performing Organization Address [facility] Co de Phone Number LAURIE [address] [place] [address] * Legionella antigen Urine (10/19/2024 12:33 PM CDT) Legionella Ag Negative Negative Comment: Interpretive Data This test detects only Legionella pneumophila serogroup 1 antigen. Current interpretive data was last revised on 2019. Urine 10/19/2024 12:3 3 PM CDT 10/19/2024 12:40 PM CDT us Radha Suggs MD LAB MICROBIOLOGY - GENE RAL ORDERABLES Final Result Performing Organization Address [facility]/ZIP Co de Phone Number LAURIE [address] [place] [address] * LETICIA ab ql w/rflx to LETICIA [...] last revised on 2020. Testing performed by: [facility], [address] [place]., [address] Blood 10/19/2024 12:1 5 PM CDT 10/19/2024 2:07 PM CDT us Delvin Mendenhall MD LAB BLOOD ORDERABLES Final Res ult Performing Organization Address City/[facility]/ZIP Co de Phone Number BRYNYEE [address] [place] [address] * ANCA (10/19/2024 12:15 PM CDT) C-ANCA Negative Negative [facility] P-ANCA Negative Negative LAURIE Comment: Negative for cANCA and pANCA patterns by immunofluorescence. ADDITIONAL INFORMATION This test was developed and its performance characteristics determined by [facility] in a manner consistent with CLIA requirements. This test has not been cleared or approved by the U.S. Food and Drug Administration. Test Performed by: [facility] [address] [place] [address] Drop Hammer Operator Helper: Hayder Arzola Ph.D.; CLIA# [id number] Blood 10/19/2024 12:1 5 PM CDT 10/19/2024 12:19 PM CDT us Delvin Mendenhall MD LAB BLOOD ORDERABLES Final Res ult Performing Organization Address [facility] de Phone Number LAURIE BOBBY [address] [place] [address] [facility] * Erythrocyte sedimentation rate (10/19/2024 12:15 PM CDT) Erythrocyte sedimentation rate 6 1 - 20 mm/hr Comment:Testing performed by : [facility], [facility], [place], [address] Blood 10/19/2024 12:1 5 PM CDT 10/19/2024 12:20 PM CDT us Delvin Mendenhall MD LAB BLOOD ORDERABLES Final Res ult Performing Organization Address City/[facility] Co de Phone Number LAURIE BOBBY [address] [place] [address] * C3 complement (10/19/2024 12:15 PM CDT) Complement C3 119 90 - 180 mg/dL Blood 10/19/2024 12:1 5 PM CDT 10/19/2024 12:20 PM CDT us Delvin Mendenhall MD LAB BLOOD ORDERABLES Final Res ult Performing Organization Address City/[facility] de Phone Number LAURIE ROSALES [address] Department of [facility] [place] [address] * Hemoglobin A1c (10/19/2024 12:15 PM CDT) Hgb A1C 5.6 4.0 - 5.6 % Estimated Average Glucose 114 mg/dL LAURIE ROSALES Comment: The ADA recommends reporting an estimated Average Glucose (eAG) with all Hemoglobin A1c results using the equation derived from a study of 507 normal and diabetic adults. Minority populations were underrepresented and children were not included. (Diabetes Care 31:3522-4886, 2008). The eAG is not equivalent to a fasting glucose. Blood 10/19/2024 12:1 5 PM CDT 10/19/2024 12:20 PM CDT Delvin Mendenhall MD LAB BLOOD ORDERABLES Final Res ult Performing Organization Address [facility] de Phone Number LAURIE ROSALES [address] Department of [facility] [place] [address] * (ABNORMAL) eGFR (10/19/2024 5:12 AM CDT) Pathologist [facility] eGFR 36(L) >=60 mL/min/1. 73 m2 Comment: [...] Spencer NP LAB BLOOD ORDERABLES Final Result [facility] [address] Department [place] [address] * (ABNORMAL) Differential, auto (10/19/2024 5:12 AM CDT) Neutrophil abs 3.68 1.50 - 6.50 K/cumm Imm gran abs 0.02 0.00 - 0.10 K/cumm [facility] Lymphocyte abs 0.73(L) 0.80 - 3.30 K/cumm [facility] Monocyte abs 0.49 0.20 - 0.80 K/cumm [facility] Eosinophil abs 0.07 0.00 - 0.50 K/cumm [facility] Basophil abs 0.03 0.00 - 0.10 K/cumm [facility] Neutrophil pct 73.3 % [facility] Comment: Interpretive Data Percent cell count reference ranges are not reported, since discordance with absolute values may lead to misinterpretation of CBC data. Current Interpretive Data was last revised on 2017. Imm gran pct 0.4 % [facility] Comment: Interpretive Data Percent cell count reference ranges are not reported, since discordance with absolute values may lead to misinterpretation of CBC data. Current Interpretive Data was last revised on 2017. Lymphocyte pct 14.5 % [facility] Comment: Interpretive Data Percent cell count reference ranges are not reported, since discordance with absolute values may lead to misinterpretation of CBC data. Current Interpretive Data was last revised on 2017. Monocyte pct 9.8 % [facility] Comment: Interpretive Data Percent cell count reference ranges are not reported, since discordance with absolute values may lead to misinterpretation of CBC data. Current Interpretive Data was last revised on 2017. Eosinophil pct 1.4 % [facility] Comment: Interpretive Data Percent cell count reference ranges are not reported, since discordance with absolute values may lead to misinterpretation of CBC data. Current Interpretive Data was last revised on 2017. Basophil pct 0.6 % [facility] Comment: Interpretive Data Percent cell count reference ranges are not reported, since discordance with absolute values may lead to misinterpretation of CBC data. Current Interpretive Data was last revised on 2017. Blood 10/19/2024 5:12 AM CDT 10/19/2024 5:19 AM CDT Namrata Spencer NP LAB BLOOD ORDERABLES Final Result LAURIE [address] [place] [address] * (ABNORMAL) CBC with auto differential (10/19/2024 5:12 AM CDT) WBC 5.02 3.80 - 9.90 K/cumm Hgb 15.5 13.0 - 17.5 g/dL [facility] Hct 48.5 38.9 - 50.3 % [facility] Plt 125(L) 150 - 400 K/cumm [facility] MPV 11.4 9.1 - 12.3 fL [facility] RBC 5.03 4.30 - 5.80 M/cumm [facility] MCV 96.4 81.3 - 96.4 fL [facility] MCH 30.8 27.1 - 33.3 pg [facility] MCHC 32.0(L) 32.3 - 35.7 g/dL [facility] RDW CV 17.0(H) 11.1 - 14.9 % [facility] RDW SD 59.9(H) 35.7 - 48.1 fL [facility] NRBC abs 0.00 0.00 - 0.01 K/cumm [facility] Blood 10/19/2024 5:12 AM CDT 10/19/2024 5:19 AM CDT Namrata Vidya Spencer NP LAB BLOOD ORDERABLES Final Result LAURIE ROSALES [address] [place] [address] * (ABNORMAL) Protime-INR (10/19/2024 5:12 AM CDT) [facility] PT 34.7(H) 9.7 - 13.0 sec INR [...] BLOOD ORDERABLES Final Result Performing Organization Address [facility] Co de Phone Number LAURIE [address] [facility] [place] [address] * Magnesium (10/19/2024 5:12 AM CDT) [facility] Magnesium 2.0 1.4 - 2.5 mg/dL Blood 10/19/2024 5:12 AM CDT 10/19/2024 5:20 AM CDT [facility] LAB BLOOD ORDERABLES Final Result Performing Organization Address [facility] Co de Phone Number LAURIE [address] [facility] [place] [address] * (ABNORMAL) Basic metabolic panel (10/19/2024 5:12 AM CDT) [facility] Sodium 133(L) 135 - 145 mmol/L Potassium, pl 4.8 3.3 - 4.9 mmol/L [facility] Chloride 96(L) 97 - 110 mmol/L [facility] CO2 30 22 - 32 mmol/L [facility] Anion gap 7 2 - 15 mmol/L [facility] BUN 35(H) 6 - 25 mg/dL [facility] Creatinine 1.83(H) 0.80 - 1.30 mg/dL [facility] Glucose 87 70 - 199 mg/dL [facility] Comment: Interpretive Data Fasting glucose >/= 126 [...] 2022. Calcium 9.2 8.5 - 10.3 mg/dL [facility] Blood 10/19/2024 5:12 AM CDT 10/19/2024 5:20 AM CDT Namrata Spencer APARTMENT MANAGER LAB BLOOD ORDERABLES Final Result Performing Organization Address City/[facility]/ZIP Co de Phone Number BRYNYEE [address] [place] [address] * (ABNORMAL) Troponin T high-sensitivity 6-hour (10/18/2024 4:32 PM CDT) Trop T hs 51(H) <=22 ng/L Comment: Interpretive Data For further hscTnT resources including the diagnostic algorithm and an aid in interpretation, copy and paste this link: https://nrl.testcatalog.org/show/hsTrop Current Interpretive Data last revised 2020. Trop T hs delta 0 ng/L [facility] Trop T hs interp Insignificant [facility] Blood 10/18/2024 4:32 PM CDT 10/18/2024 4:41 PM CDT Zeke Correa DO LAB BLOOD ORDERABLES Final Res ult LAURIE [address] Department of [facility] [place] [address] * (ABNORMAL) Digoxin level (10/18/2024 4:32 PM [...] CDT 10/18/2024 8:20 PM CDT Namrata Spencer APARTMENT MANAGER LAB BLOOD ORDERABLES Final Result Performing Organization Address [facility]/ZIP Co de Phone Number BRYNYEE [address] [place] [address] * (ABNORMAL) Troponin T high-sensitivity 4-hour (10/18/2024 2:42 PM CDT) Trop T hs 51(H) <=22 ng/L Comment: Interpretive Data For further hscTnT resources including the diagnostic algorithm and an aid in interpretation, copy and paste this link: https://nrl.testcatalog.org/show/hsTrop Current Interpretive Data last revised 2020. Trop T hs delta 0 ng/L [facility] Trop T hs interp Insignificant [facility] Blood 10/18/2024 2:42 PM CDT 10/18/2024 2:50 PM CDT Zeke Correa DO LAB BLOOD ORDERABLES Final Res ult LAURIE ROSALES [address] [facility] [place] [address] * CT Chest WO Contrast (10/18/2024 2:00 [...] Report: No growth Comment:Testing performed by : [facility], [address] [facility], [place]., [address] Blood (Peripheral) 10/18/2024 1:28 PM CDT 10/18/2024 [...] be performed for organism identification using the hso ePlex blood culture identification panel for gram positive (BCID-GP) and gram negative (BCID-GN) organisms. This nucleic acid amplification test detects microbial DNA in positive blood culture broth. This assay has been cleared by the [place] Food and Drug Administration and its performance characteristics have been verified by the [facility]. For questions about this culture, contact the Microbiology Laboratory at [phone]. Interpretive data was last revised on 24. Zeke Correa DO LAB MICROBIOLOGY - GENERAL ORD ERABLES Final Result LAURIE ROSALES [address] Department [place] [address] * Blood culture Blood Peripheral (10/18/2024 1:28 PM CDT) Report Final Report: No growth Comment:Testing performed by : [facility], [address] [place]., [address] Blood (Peripheral) 10/18/2024 1:28 PM CDT 10/18/2024 [...] performance characteristics have been verified by the [facility]. For questions about this culture, contact the Microbiology Laboratory at [phone]. Interpretive data was last revised on 24. us Zeke Correa DO LAB MICROBIOLOGY - GENERAL ORD ERABLES Final Result Performing Organization Address City/[facility]/ZIP Co de Phone Number BRYNYEE BOBBY [address] [place] [address] * (ABNORMAL) Troponin T high-sensitivity 2-hour (10/18/2024 12:26 PM CDT) Pathologist [facility] Trop T hs 54(H) <=22 ng/L Comment: Interpretive Data For further hscTnT resources including the diagnostic algorithm and an aid in interpretation, copy and paste this link: https://nrl.testcatalog.org/show/hsTrop Current Interpretive Data last revised 2020. Trop T hs delta 3 ng/L [facility] T[facility] T hs interp Insignificant [facility] Blood 10/18/2024 12:2 6 PM CDT 10/18/2024 12:26 PM CDT us Zeke Correa DO LAB BLOOD ORDERABLES Final Res ult Performing Organization Address City/[facility]/ZIP Co de Phone Number LAURIE ROSALES [address] Department of [facility] [place] [address] * (ABNORMAL) Pro B-type natriuretic [...] as advanced age. - References: 1. Pedro JL et.al. Eur Heart J. 2006:27:330-337. 2. Daryl RW, Florecita AKBAR. J. AM Roger Cardiol: Cardiovasc Imag. 2009;2: 216- 225. Interpretive Data Last Revised Date: 2018. Blood 10/18/2024 12:2 6 PM CDT 10/18/2024 1:15 PM CDT us Zeke Correa DO LAB BLOOD ORDERABLES Final Res ult LAURIE [address] Department of [facility] [place] [address] * XR Chest 1 Vw [...] ORDERABLES Edited Re sult - Final LAURIE ROSALES [address] [facility] [place] [address] * Lactate (10/18/2024 10:41 AM CDT) Lactate 1.3 0.7 - 2.0 mmol/L Blood 10/18/2024 10:4 1 AM CDT 10/18/2024 10:49 AM CDT Zeke Correa DO LAB BLOOD ORDERABLES Final Res ult Performing Organization Address [facility] de Phone Number LAURIE ROSALES [address] [facility] [place] [address] * (ABNORMAL) eGFR (10/18/2024 10:41 AM CDT) [...] ORDERABLES Final Res ult Performing Organization Address [facility] Co de Phone Number LAURIE ROSALES [address] Department [place] [address] * Differential, auto (10/18/2024 10:41 AM CDT) Neutrophil abs 3.39 1.50 - 6.50 K/cumm Imm gran abs 0.01 0.00 - 0.10 K/cumm [facility] Lymphocyte abs 0.86 0.80 - 3.30 K/cumm [facility] Monocyte abs 0.44 0.20 - 0.80 K/cumm [facility] Eosinophil abs 0.03 0.00 - 0.50 K/cumm [facility] Basophil abs 0.02 0.00 - 0.10 K/cumm [facility] Neutrophil pct 71.4 % [facility] Comment: Interpretive Data Percent cell count reference ranges are not reported, since discordance with absolute values may lead to misinterpretation of CBC data. Current Interpretive Data was last revised on 2017. Imm gran pct 0.2 % [facility] Comment: Interpretive Data Percent cell count reference ranges are not reported, since discordance with absolute values may lead to misinterpretation of CBC data. Current Interpretive Data was last revised on 2017. Lymphocyte pct 18.1 % [facility] Comment: Interpretive Data Percent cell count reference ranges are not reported, since discordance with absolute values may lead to misinterpretation of CBC data. Current Interpretive Data was last revised on 2017. Monocyte pct 9.3 % [facility] Comment: Interpretive Data Percent cell count reference ranges are not reported, since discordance with absolute values may lead to misinterpretation of CBC data. Current Interpretive Data was last revised on 2017. Eosinophil pct 0.6 % [facility] Comment: Interpretive Data Percent cell count reference ranges are not reported, since discordance with absolute values may lead to misinterpretation of CBC data. Current Interpretive Data was last revised on 2017. Basophil pct 0.4 % [facility] Comment: Interpretive Data Percent cell count reference ranges are not reported, since discordance with absolute values may lead to misinterpretation of CBC data. Current Interpretive Data was last revised on 2017. Blood 10/18/2024 10:4 1 AM CDT 10/18/2024 10:56 AM CDT us Zeke Correa DO LAB BLOOD ORDERABLES Final Res ult LAURIE [address] Department [place] [address] * Respiratory pathogen panel Nasopharyngeal (10/18/2024 10:41 AM CDT) Pathologist [facility] Influenza A RNA Not Detected Not Detected [facility] Influenza B RNA Not Detected Not Detected CERNER RSV RNA Not Detected Not Detected C[facility] COVID-19 RNA Not Detected Not Detected [facility] Coronavirus 229E RNA Not Detected Not Detected C[facility] Coronavirus HKU1 RNA Not Detected Not Detected [facility] Coronavirus NL63 RNA Not Detected Not Detected [facility] Coronavirus OC43 RNA Not Detected Not Detected [facility] Adenovirus DNA Not Detected Not Detected [facility] Metapneumovirus RNA Not Detected Not Detected [facility] Rhinovirus/Enterov irus RNA Not Detected Not Detected [facility] Parainfluenza 1 RNA Not Detected Not Detected [facility] Parainfluenza 2 RNA Not Detected Not Detected [facility] Parainfluenza 3 RNA Not Detected Not Detected [facility] Parainfluenza 4 RNA Not Detected Not Detected [facility] B. pertussis DNA Not Detected Not Detected [facility] B. parapertussis DNA Not Detected Not Detected [facility] C. pneumoniae DNA Not Detected Not Detected CERNER M. pneumoniae DNA Not Detected Not Detected [facility] Comment: Interpretive Data The [employer] FilmArray Respiratory Panel (RP2.1) assay is a [...] assay has FDA clearance for testing of APARTMENT MANAGER swabs. The performance characteristics of this assay have been determined by [facility]. Current interpretive data was last revised on 2020. Nasopharyngeal 10/18/2024 10 :41 AM CDT 10/18/2024 10:53 AM CDT Narrative LAURIE - 10/18/2024 12:10 PM CDT Is the Patient experiencing symptoms consistent with COVID?->Yes Surveillance testing for transplant patient?->No us Zeke Correa DO LAB MICROBIOLOGY - GENERAL ORD ERABLES Final Result [address]IE [address] Department [place] [address] * (ABNORMAL) CBC with auto differential (10/18/2024 10:41 AM CDT) [facility] WBC 4.75 3.80 - 9.90 K/cumm Hgb 15.5 13.0 - 17.5 g/dL [facility] Hct 47.4 38.9 - 50.3 % [facility] Plt 132(L) 150 - 400 K/cumm [facility] MPV 12.2 9.1 - 12.3 fL [facility] RBC 4.95 4.30 - 5.80 M/cumm [facility] MCV 95.8 81.3 - 96.4 fL [facility] MCH 31.3 27.1 - 33.3 pg [facility] MCHC 32.7 32.3 - 35.7 g/dL [facility] RDW CV 17.1(H) 11.1 - 14.9 % [facility] CH RDW SD 59.9(H) 35.7 - 48.1 fL [facility] NRBC abs 0.00 0.00 - 0.01 K/cumm [facility] Blood 10/18/2024 10:4 1 AM CDT 10/18/2024 10:56 AM CDT Zeke Correa DO LAB BLOOD ORDERABLES Final Res ult [facility] [address] Department [place] [address] * (ABNORMAL) Comprehensive metabolic panel (10/18/2024 10:41 AM CDT) Sodium 132(L) 135 - 145 mmol/L Potassium, pl 5.0(H) 3.3 - 4.9 mmol/L [facility] Chloride 97 97 - 110 mmol/L [facility] CO2 28 22 - 32 mmol/L [facility] Anion gap 7 2 - 15 mmol/L [facility] BUN 29(H) 6 - 25 mg/dL [facility] Creatinine 1.62(H) 0.80 - 1.30 mg/dL [facility] Comment:Icteric sample, test results may be affected. Glucose 90 70 - 199 mg/dL [facility] Comment: Interpretive Data Fasting glucose >/= 126 [...] ORDERABLES Final Res ult Performing Organization Address [facility] Co de Phone Number [facility] [address] Department [place] [address] * ECG 12 lead (10/18/2024 10:33 AM CDT) 10/18/2024 10:3 3 AM CDT Narrative [facility] - 10/18/2024 2:59 PM CDT Vent Rate: 80 bpm RR Interval: 749 msec [place] Interval: 140 msec QRS Duration: 164 msec QT Interval: 377 msec QTC Interval: 412 msec P-R-T [place]: -52 - 226 - 226 degrees IMPRESSION: ELECTRONIC VENTRICULAR PACEMAKER ST DEPRESSION, CONSIDER SUBENDOCARDIAL INJURY [0.1+ mV ST DEPRESSION] ABNORMAL ECG No change compared to prior EKG Electronically Signed By: Emilio Ratliff MD [facility] Zeke Correa DO ECG ORDERABLES Final Result Performing Organization Address [facility] Co de Phone Number [facility] [employer] [facility] from Last 3 Months Insurance MEDICARE [employer] MEDICARE SUPPLEMENT [facility] MEDICARE [facility] MEDICARE Advance Directives For more information, please contact: [phone] Documents on File Type Date Recorded Patient Refurbish Technician Expl anation ADVANCE DIRECTIVE 02/25/2023 4:32 PM [...] 5:03 PM 02/24/2023 6:21 PM Care Teams Polysomnography Technician Relationship Specialty Start Date End Date Sharita Kelly MD [address] [facility] [address] [place] [address] PCP - General Family Medicine 02/24/23 Donte Camacho MD [address] [place] [address] Consulting Physician Cardiology 02/24/23 Delvin Mendenhall MD [address] [place] [address] Consulting Physician Nephrology 02/24/23 [place] [address] [facility] [address] [place] [address] Consulting Physician Pulmonary Disease 11/03/24 Lorie Murray, APARTMENT MANAGER [address] [facility] [address] [place] [address] Nurse Practitioner Urology 11/03/24
[2024-11-04] MEDS: HYDROmorphone HCL INJ (*CRX) 2 MG/ML VIAL (15:13)
[2024-11-04 15:56] VITALS: RESP 10
[2024-11-04] MEDS: HYDROmorphone HCL/PF (*CRX) 50 MG in SODIUM CHLORIDE 0.9% IV 95 ML IV CONT (15:56)
--- NOTE | 2024-11-04 18:47 | P.HP_ITS ---
H&P: HPI History of Present Illness Date/Time: 11/04/24 18:47 Chief Complaint: Uncontrolled dyspnea Narrative: 84-year-old gentleman with known congestive heart failure, coronary artery disease, chronic kidney disease, peripheral arterial disease, chronic pain, and depression with anxiety presented with increasing dyspnea. He was recently discharged from [facility]. He was sent to a nursing facility for rehab. He was sent to the emergency department because of increased shortness of breath and hypoxia. In the emergency department CPAP was applied but the patient stated he did not want that he wanted to be kept comfortable. He did not tolerate the CPAP well. He in his were in agreement that his dyspnea and discomfort should be managed with inpatient hospice. Review of Systems Review of Systems: ROS unobtainable: Yes unobtainable due to medical condition PMFSH Past Medical History Medical History Chronic anticoagulation PAD (peripheral artery disease) Obesity CAD (coronary artery disease) Presence of combination internal cardiac defibrillator (ICD) and pacemaker Hypothyroidism Arthritis BPH (benign prostatic hyperplasia) 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 Hx of myocardial infarction 1996 HTN (hypertension) Hypercholesterolemia Surgical History Surgical History S/P insertion of iliac artery stent Hx of coronary artery bypass graft Family History Family History (Updated 11/04/24 @ 18:49 by Alex Schafer MD) Father No problems noted. Mother No problems noted. Social History Social History (Updated 11/04/24 @ 18:49 by Alex Schafer MD) Social History: . Code Status: DNR. Smoking status: Never smoker Second hand tobacco smoke exposure: No Alcohol intake: never Substance use: never Substance use type: does not use Do You Feel Safe in your Home?: Yes Lack of Transportation: No Lack of Food: Never True Current Housing: I Have Housing Concerned About Future Housing: No Difficulty Paying Gas/Electric Bills: No Difficulty Paying for Meds: No Currently Unemployed: YES Education: Don't Know Difficulty w/ Childcare or Family Care: No Living arrangements: with family Occupation/Education: retired Gender identity (if verbalized by the patient): Male Sexual Orientation (if Verbalized by the Patient): Straight or Heterosexual Spiritual care concerns: No Meds Home Medications and Allergies Home Medications ?Medication ?Instructions ?Recorded ?Confirmed ?Type aspirin 81 mg tablet,delayed 81 mg PO DAILY 10/21/19 08/29/24 History release (Asaf Low Dose Aspirin) warfarin 5 mg tablet 5 mg PO DAILY 10/21/19 08/29/24 History montelukast 10 mg tablet 10 mg PO DAILY #90 tabs 08/25/23 08/29/24 Rx calcitriol 0.25 mcg capsule 0.25 mcg PO DAILY 12/08/23 08/29/24 History atorvastatin 20 mg tablet 20 mg PO HS #90 tabs 03/21/24 08/29/24 Rx atenolol 50 mg tablet See Rx Instructions .Route 04/27/24 08/29/24 Rx .COMPLEX #90 tabs fenofibrate nanocrystallized 145 145 mg PO DAILY #90 tabs 04/27/24 08/29/24 Rx mg tablet dofetilide 125 mcg capsule 125 mcg PO DAILY 05/02/24 08/29/24 History (Tikosyn) levothyroxine 25 mcg tablet See Rx Instructions .Route 07/26/24 08/29/24 Rx .COMPLEX #92 tabs clorazepate dipotassium 15 mg 7.5 mg (1/2 x 15 mg) PO BID PRN 08/29/24 08/29/24 Rx tablet anxiety #30 tabs furosemide 20 mg tablet 20 mg PO QAM #90 tabs 08/29/24 08/29/24 Rx lisinopril 5 mg tablet See Rx Instructions .Route 08/29/24 08/29/24 Rx .COMPLEX #90 tabs tramadol 50 mg tablet 50 mg PO Q6H PRN pain #30 tabs 08/29/24 08/29/24 Rx digoxin 250 mcg (0.25 mg) tablet 250 mcg PO .MWF 10/10/24 History Allergies Allergy/AdvReac Type Severity Reaction Status Date / Time morphine Allergy Mild Nausea and Verified 11/04/24 08:06 Vomiting eszopiclone Allergy Unknown Nausea and Verified 11/04/24 08:06 Vomiting hydrocodone Allergy Unknown Nausea and Verified 11/04/24 08:06 Vomiting tramadol Allergy Unknown Verified 11/04/24 08:06 trazodone Allergy Unknown Verified 11/04/24 08:06 Vital Signs Vital Signs - 24 hr 11/04/24 15:56 Respiratory Rate 10 L Exam Narrative: HEENT: Pharyngeal mucosa pink and intact NECK: No JVD, adenopathy, or thyromegaly CHEST: Decreased breath sounds at bases with normal effort HEART: NL S1/S2, regular, no murmur ABDOMEN: BS hypoactive, soft, nontender, no mass, no bruits EXTREMITIES: No cyanosis, edema, or clubbing NEUROLOGIC: CN symmetric to inspection MUSCULOSKELETAL: No gross deformities visual inspection PSYCH: Unresponsive to verbal and tactile stimuli Assessment and Plan Assessment and plan (1) Hospice care: Code(s): Z51.5 - Encounter for palliative care Status: Acute Assessment and Plan: * Meet inpatient hospice criteria due to requiring continuous IV hydromorphone 0.25 milligrams/hour for control of dyspnea * PRN palliative regimen ordered (2) Systolic and diastolic CHF, chronic: Code(s): I50.42 - Chronic combined systolic (congestive) and diastolic (congestive) heart failure Status: Acute (3) Acute respiratory failure with hypoxia: Code(s): J96.01 - Acute respiratory failure with hypoxia Status: Acute (4) Presence of combination internal cardiac defibrillator (ICD) and pacemaker: Code(s): Z95.810 - Presence of automatic (implantable) cardiac defibrillator Status: Acute
[2024-11-04 19:00] VITALS: BP 107/56; PULSE 80; RESP 16; TEMP 36.2; O2SAT 88
[2024-11-04 20:00] VITALS: PULSE 57; RESP 6; O2SAT 94
[2024-11-04 21:47] VITALS: BP 75/47; PULSE 57; RESP 6; TEMP 35.3; O2SAT 94
[2024-11-05 08:00] VITALS: RESP 6
--- NOTE | 2024-11-10 20:35 | P.DN_ITS ---
Discharge Summary Date and Time Date of : 11/05/24 Time of : 08:40 Provider Pronounced By: 2 RNs Name of First RN That Pronounced: Shailesh Allen Name of Second RN That Pronounced: Bobbi Gasca Probable Cause of Probable Cause of : Acute hypoxic respiratory failure secondary to acute on chronic mixed systolic and diastolic congestive heart failure Summary Hospital Course: Admitted to inpatient hospice service for symptom management. Medications were titrated to comfort. Mr. Jones peacefully. Additional Data Confirmation of as documented by pronouncing clinician: Pupillary Reflex, Palpable Pulses, Response to Stimuli, Heart Tones and Breath Sounds Name of Provider Notified: Hanh Time Provider Notified: 09:30 Provider Requests Autopsy: No Family Requests Autopsy: No Road Crossing Guard Notified: Yes Date [facility] Notified of : 11/05/24 Time [facility] Notified of : 08:48
== END 2024-11-05 11:53 | disposition expired | DRG 951 ==
LOC: ANH3MEDSUR 15:05
PROVIDERS: Admitting Provider Internal Medicine; PCP Family Medicine; Visit Provider Internal Medicine
DX: Z51.5 Encounter for palliative care (principal); J96.01 Acute respiratory failure with hypoxia; I50.42 Chronic combined systolic (congestive) and diastolic (congestive) heart failure; I25.10 Atherosclerotic heart disease of native coronary artery without angina pectoris; N18.9 Chronic kidney disease, unspecified; I73.9 Peripheral vascular disease, unspecified
CPT/HCPCS: A9270; J1171